=== PATIENT | female | born 1955 | race Two or more races ===

== ENCOUNTER 2020-01-31 13:00 | Outpatient (REF) | payer OTHER, SELFPAY | END 2020-01-31 13:01 | disposition home or self-care (01) | LOC: HO.LAB 13:00 | PROVIDERS: Visit Provider Internal Medicine | DX: Z20.828 Contact with and (suspected) exposure to other viral communicable diseases (principal) | CPT/HCPCS: 36415; 87635 ==

== ENCOUNTER 2021-01-12 11:27 | Outpatient (REF) | payer MEDICAID, SELFPAY | END 2021-01-12 11:28 | disposition home or self-care (01) | LOC: HO.LAB 11:27 | PROVIDERS: Visit Provider Internal Medicine | DX: Z20.822 Contact with and (suspected) exposure to COVID-19 (principal) | CPT/HCPCS: C9803; U0003; U0005 ==

== ENCOUNTER 2022-07-12 18:15 | Emergency (ER) | payer MEDICAID, SELFPAY ==
[2022-07-12 18:31] VITALS: BP 128/78; PULSE 94; O2SAT 99
[2022-07-12 18:34] VITALS: BP 172/95; PULSE 80; RESP 17; TEMP 36.6; O2SAT 96; BMI 25.4
--- NOTE | 2022-07-12 18:53 | ED.GENADULT ---
HPI - General Adult General Chief complaint: Psychiatric Symptoms Stated complaint: Section 12 Time Seen by Provider: 07/12/22 18:53 Source: patient and EMS Mode of arrival: EMS Limitations: no limitations History of Present Illness HPI narrative: Patient is a 66 year old assigned female at with a history of dementia presenting to the emergency department today on a section 12 from her [facility] facility for increased aggression. Patient states that she isn't sure why she is here. Patient denies any dizziness, lightheadedness, abdominal pain, nausea, vomiting, fever, chills, blurry vision, double vision, loss of vision, chest pain, difficulty breathing, shortness of breath, back pain, night sweats, pain with urination, increased urinary frequency, increased urinary urgency, blood in her urine or stool, syncope or a near syncopal episode, recent trauma or falls, bowel incontinence, bladder incontinence, bowel retention, bladder retention, or any other complaints at this time. Relieving factors: none Exacerbating factors: none Associated symptoms: denies other symptoms Treatments prior to arrival: none Related Data Home Medications Medication Instructions Recorded Confirmed clopidogrel 75 mg tablet 1 tab PO DAILY 07/12/22 07/12/22 donepezil 10 mg tablet 1 tab PO BEDTIME 07/12/22 07/12/22 escitalopram oxalate 5 mg tablet 1 tab PO DAILY 07/12/22 07/12/22 gabapentin 800 mg tablet 1 tab PO BEDTIME 07/12/22 07/12/22 insulin aspart U-100 100 unit/mL 0 sliding scale dose subcut TID 07/12/22 07/12/22 (3 mL) subcutaneous pen insulin glargine 100 unit/mL (3 10 unit subcut BID 07/12/22 07/12/22 mL) subcutaneous pen (Lantus Solostar U-100 Insulin) levothyroxine 75 mcg tablet 75 mcg PO QAM 07/12/22 07/12/22 loperamide 2 mg capsule 1 cap PO QID PRN diarrhea 07/12/22 07/12/22 loratadine 10 mg tablet 1 tab PO DAILY 07/12/22 07/12/22 memantine 10 mg tablet 1 tab PO BID 07/12/22 07/12/22 metformin 500 mg tablet,extended 2 tab PO BID 07/12/22 07/12/22 release 24 hr metoprolol succinate 25 mg 1 tab PO DAILY 07/12/22 07/12/22 tablet,extended release 24 hr simvastatin 40 mg tablet 1 tab PO BEDTIME 07/12/22 07/12/22 valsartan 80 mg tablet 1 tab PO DAILY 07/12/22 07/12/22 Allergies Allergy/AdvReac Type Severity Reaction Status Date / Time aspirin [ASPIRIN] Allergy Unknown UNKNOWN Unverified 01/13/20 19:28 Review of Systems Constitutional: Constitutional: Reports no additional constitutional complaints, Denies chills, Denies fever(s) and Denies night sweats Eyes: Eyes: Reports no additional eye complaints, Denies blurry vision, Denies change in vision, Denies diplopia, Denies eye discharge, Denies loss of vision and Denies eye pain ENT: Denies dizziness Cardiovascular: Cardiovascular: Reports no additional cardiovascular complaints, Denies chest pain, Denies lightheadedness, Denies Loss of Consciousness and Denies dyspnea Respiratory: Respiratory: Reports no additional respiratory complaints and Denies dyspnea Gastrointestinal: Gastrointestinal: Reports no additional gastrointestinal complaints, Denies abdominal pain, Denies melena, Denies hematochezia, Denies change in bowel habits and Denies change in stool character Genitourinary: Genitourinary: Denies hematuria, Denies urinary frequency, Denies dysuria, Denies urinary incontinence, Denies urinary hesitancy and Denies urinary urgency Musculoskeletal: Musculoskeletal: Reports no additional musculoskeletal complaints, Denies numbness and Denies tingling Neurologic: Reports confusion (per baseline), Denies dizziness, Denies loss of vision, Denies numbness and Denies tingling Psychiatric: Psychiatric: Reports no additional psychiatric complaints and Reports confusion (per baseline) Endocrine: Endocrine: Reports no additional endocrine complaints Hematologic/Lymphatic: Hematologic/Lymphatic: Reports no additional hematologic/lymphatic complaints Allergic/Immunologic: Allergic/Immunologic: Reports no additional allergic/immunologic complaints [facility] Past Medical History Attestation statement: The following information was validated with the patient. Source: old records reviewed, nursing notes reviewed and other (SNF recored reviewed) Social History Social History Advance Directives: No Advance Directives Information Provided: Yes Physical Exam ED Vital Signs: Vital Signs - 24 hr 07/12/22 18:34 Temperature 98 F Pulse Rate 80 Respiratory Rate 17 Blood Pressure 172/95 H Pulse Oximetry 96 BMI result Body Mass Index 25.4 Const General: confusion (per baseline) Nutritional Appearance: well nourished Orientation/consciousness: confusion (per baseline) Limitations: no limitations HENMT Head: Yes normal to inspection and Yes atraumatic Ears: hearing grossly normal bilaterally and external ears normal General nose exam: Normal external nose present, no nasal discharge noted and no epistaxis Face and sinus: Yes normal facial exam, No abrasion and No laceration Mouth: Normal oral and palatal mucosa present, no drooling and no muffled voice Eyes General: appearance normal, both eyes and all related structures Periorbital: periorbital findings normal Eyelids: Yes eyelids normal Conjunctivae: conjunctivae normal Pupils: Equal, round and reactive pupils present EOM: EOMs intact bilaterally Neck Neck: Yes normal visual inspection, Yes full ROM and Yes no lymphadenopathy Chest Chest palpation & inspection: normal inspection of the chest Resp Effort & Inspection: normal respiratory effort and able to speak in complete sentences Auscultation: clear to auscultation bilaterally Cardio Rate: regular rate Rhythm: regular rhythm GI Inspection: Yes normal to inspection Neuro General: confusion (per baseline) Cranial nerves: Yes Equal, round and reactive pupils present Cognition (Neuro): normal cognition Motor exam (neuro): 5/5 motor strength present throughout Sensory Exam: Normal double simultaneous stimulation for sensation Coordination: [id number] test normal Extrem General: Yes normal to inspection, Yes full ROM and Yes capillary refill normal Psych Appearance: grossly normal Mental Status: mental status grossly normal Affect: normal affect Attitude: cooperative Thought process: Normal thought process present Thought content: Normal thought content present Insight: Good insight present (Psych) Medical Decision Making Medical Decision Making [facility] Narrative: Patient is a 66 year old assigned female at with a history of dementia presenting to the emergency department today on a section 12 for increased aggression towards SNF staff. Patient's physical exam showed a chronically confused individual but was otherwise unremarkable. Patient's blood work is pending at this time. Patient's urine showed no acute process. Patient's drug screen was positive for fentanyl however, the patient is not on any fentanyl or common false positive medications. Will repeat. Patient to be evaluated by CARE team. Differential Diagnosis Differential Diagnoses: The differential diagnosis associated with the presentation includes dementia, agitation Lab Data [facility] Lab Attestation statement: I reviewed the patient's lab results. Labs: Lab Results 07/12/22 07/12/22 07/12/22 Range/Units 19:02 19:02 19:12 POC Glucose (60-115) mg/dL Urine Color Yellow Urine Appearance Clear Urine pH 5.5 (5.0-9.0) Ur Specific [place] 1.015 (1.005-1.025) Urine Protein Negative (Neg-Trace) mg/dL Urine Glucose (UA) Negative (Negative) mg/dL Urine Ketones Negative (Negative) mg/dL Urine Blood Negative (Negative) Urine Nitrite Negative (Negative) Ur Leukocyte Esterase Negative (Negative) Urine Opiates Screen Not Detected (Not Detect) Urine Fentanyl Screen POSITIVE H (Not Detect) Ur Barbiturates Screen Not Detected (Not Detect) Ur Phencyclidine Scrn Not Detected (Not Detect) Ur Amphetamines Screen Not Detected (Not Detect) U Benzodiazepines Scrn Not Detected (Not Detect) Urine Cocaine Screen Not Detected (Not Detect) U Marijuana (THC) Screen Not Detected (Not Detect) COVID-19 (JOSH) Negative (Negative) COVID-19 Clin Com See Note 07/12/22 Range/Units 19:39 POC Glucose 163 H (60-115) mg/dL Urine Color Urine Appearance Urine pH (5.0-9.0) Ur Specific [place] (1.005-1.025) Urine Protein (Neg-Trace) mg/dL Urine Glucose (UA) (Negative) mg/dL Urine Ketones (Negative) mg/dL Urine Blood (Negative) Urine Nitrite (Negative) Ur Leukocyte Esterase (Negative) Urine Opiates Screen (Not Detect) Urine Fentanyl Screen (Not Detect) Ur Barbiturates Screen (Not Detect) Ur Phencyclidine Scrn (Not Detect) Ur Amphetamines Screen (Not Detect) U Benzodiazepines Scrn (Not Detect) Urine Cocaine Screen (Not Detect) U Marijuana (THC) Screen (Not Detect) COVID-19 (JOSH) (Negative) COVID-19 Clin Com Independent Historian Clinical information obtained from an independent historian. History obtained from or confirmed by: EMS and Other (SNF staff) Discharge Plan Discharge Clinical Impression: Aggression, Dementia Patient Disposition: Still a Patient Prescriptions: No Action simvastatin 40 mg tablet 1 tab PO BEDTIME valsartan 80 mg tablet 1 tab PO DAILY clopidogrel 75 mg tablet 1 tab PO DAILY memantine 10 mg tablet 1 tab PO BID metoprolol succinate 25 mg tablet extended release 24 hr 1 tab PO DAILY metformin 500 mg tablet extended release 24 hr 2 tab PO BID loperamide 2 mg capsule 1 cap PO QID PRN (Reason: diarrhea) escitalopram oxalate 5 mg tablet 1 tab PO DAILY levothyroxine 75 mcg tablet 75 mcg PO QAM insulin glargine [Lantus Solostar U-100 Insulin] 100 unit/mL (3 mL) insulin pen 10 unit subcut BID gabapentin 800 mg tablet 1 tab PO BEDTIME donepezil 10 mg tablet 1 tab PO BEDTIME loratadine 10 mg tablet 1 tab PO DAILY insulin aspart U-100 100 unit/mL (3 mL) insulin pen 0 sliding scale dose SUBCUT TID Rx Instructions: sliding scale
[2022-07-12 19:21] LABS: Amphetamine Screen Urine Not Detected (Not Detect); Barbiturates, Urine Not Detected (Not Detect); Benzodiazepines Screen Urine Not Detected (Not Detect); Cannabinoid Screen Urine Not Detected (Not Detect); Cocaine Screen Urine Not Detected (Not Detect); Fentanyl, urine POSITIVE (Not Detect); Opiate Screen Urine Not Detected (Not Detect); Phencyclidine Screen Urine Not Detected (Not Detect)
[2022-07-12 19:22] LABS: Appearance Urine Clear; Color Urine Yellow; Glucose Urine UA Negative (Negative); Leukocyte Esterase Urine Negative (Negative); Nitrite Urine Negative (Negative); PH 5.5 (5.0-9.0); Specific Gravity - Urine 1.015 (1.005-1.025); Urine Blood Negative (Negative); Urine Ketones Negative (Negative); Urine Protein Negative (Neg-Trace)
[2022-07-12 19:43] LABS: Glucose, Whole Blood 163 mg/dL (60-115)
[2022-07-12 19:54] LABS: COVID-19 Test Negative (Negative); IDNOW Serial# BCCEAD1C
[2022-07-12 21:02] LABS: Basophils Absolute Auto 0.1 X10*3/uL (0.0-0.2); Basophils Percent Auto 0.8 % (0-2); Eosinophils Absolute Auto 0.1 X10*3/uL (0.0-0.4); Eosinophils Percent Auto 1.2 % (0-4); Hematocrit 36.1 % (37.0-47.0); Hemoglobin 12.4 g/dl (12.0-16.0); Imm Gran Abs Auto 0.04 X10*3/uL (0.00-0.03); Imm Gran Pct Auto 0.5 % (0.0-0.4); Lymphocytes Absolute Auto 3.3 X10*3/uL (1.2-4.9); MANUAL DIFF FLAG NO; Mean Corpuscular HGB Conc 34.3 g/dl (31.0-35.0); Mean Corpuscular Hemoglobin 32.4 pg (27.0-33.0); Mean Corpuscular Volume 94.3 fL (80.0-98.0); Mean Platelet Volume 8.8 fL (9.4-12.3); Monocytes Absolute Auto 0.5 X10*3/uL (0.1-1.2); Monocytes Percent Auto 6.1 % (2-11); Neutrophils Absolute Auto 4.4 x10*3/uL (2.0-8.3); Neutrophils Percent Auto 52.4 % (45-73); Platelet Count 262 X10*3/uL (160-400); Red Blood Count 3.83 X10*6/uL (4.20-5.50); Red Cell Distribution Width 12.2 % (11.0-16.0); White Blood Count 8.5 X10*3/uL (4.8-10.8)
[2022-07-12] MEDS: metFORMIN HCl ER 500 MG TAB.ER.24H 1000 MG PO (21:34)
[2022-07-12] MEDS: Atorvastatin Calcium 20 MG TABLET PO (21:34)
[2022-07-12] MEDS: Insulin Glargine,Hum.rec.anlog 100 UNIT/ML 10 ML VIAL 10 UNIT SUBCUT (21:34)
[2022-07-12] MEDS: Gabapentin 400 MG CAPSULE 800 MG PO (21:34)
[2022-07-12] MEDS: Memantine HCl 10 MG TABLET PO (21:34)
[2022-07-12] MEDS: Insulin Lispro 100 UNIT/ML 3 ML VIAL SUBCUT (21:34)
[2022-07-12] MEDS: Donepezil HCl 10 MG TABLET PO (21:34)
[2022-07-12 21:52] LABS: Acetaminophen LAB < 17 mcg/mL (<30); Alanine Aminotransferase 21 U/L (0-31); Albumin Level 4.5 g/dL (3.5-5.0); Alkaline Phosphatase 74 U/L (39-117); Anion Gap 17 (12-20); Aspartate Amino Transferase 25 U/L (5-31); Bilirubin Total 0.7 mg/dL (0.0-1.0); Blood Urea Nitrogen 12 mg/dL (9-16); Calcium 9.7 mg/dL (8.4-10.2); Carbon Dioxide 24 mmol/L (22-29); Chloride 94 mmol/L (96-108); Creatinine Clr Calc Pharmacy 52.3; Estimated Glomerular Filt Rate > 60; Ethanol < 10 mg/dL; Glucose Random 208 mg/dL (60-115); Potassium 5.2 mmol/L (3.3-5.1); Salicylate < 5.0 mg/dL (15-30); Sodium 130 mmol/L (135-145); Total Protein 7.8 g/dL (6.5-8.0)
[2022-07-13] MEDS: Loperamide HCl 2 MG CAPSULE PO (00:29)
[2022-07-13 01:30] VITALS: BP 164/83; PULSE 72; RESP 16; TEMP 36.8; O2SAT 97
[2022-07-13] MEDS: OLANZapine 5 MG TABLET PO (02:53)
--- NOTE | 2022-07-13 06:35 | PC.NURSE ---
Patient is currently in bed appears sleeping, patient requested medication for sleep/olanzapine 5 mg administered at 0253 with + effect, patient had bowel incontinence episode due to diarrhea/Imodium 2 mg administered at 0029 with + effect, patient was assessed by care team, pending disposition, patient will be reevaluated in the morning with possibility to discharge back to alf, medication complaint, VSS, POC at 1739 was 163/covered with 2 units in the evening, POC at 0635 was 114, VSS, sammarinese speaking primarily, behavior non concerning, will continue to monitor.
[2022-07-13 06:40] LABS: Glucose, Whole Blood 114 mg/dL (60-115)
[2022-07-13] MEDS: metFORMIN HCl ER 500 MG TAB.ER.24H 1000 MG PO ×2 (08:36→20:37)
[2022-07-13] MEDS: Insulin Glargine,Hum.rec.anlog 100 UNIT/ML 10 ML VIAL 10 UNIT SUBCUT ×2 (08:36→20:37)
[2022-07-13] MEDS: Escitalopram Oxalate 5 MG TABLET PO (08:36)
[2022-07-13] MEDS: Memantine HCl 10 MG TABLET PO ×2 (08:36→20:37)
[2022-07-13] MEDS: Metoprolol Succinate ER 25 MG TAB.ER.24H PO (08:37)
[2022-07-13] MEDS: Loratadine 10 MG TABLET PO (08:37)
[2022-07-13] MEDS: Clopidogrel Bisulfate 75 MG TABLET PO (08:37)
[2022-07-13] MEDS: Levothyroxine Sodium 75 MCG TABLET PO (08:37)
[2022-07-13] MEDS: Valsartan 80 MG TABLET PO (08:38)
[2022-07-13 12:17] LABS: Glucose, Whole Blood 145 mg/dL (60-115)
--- NOTE | 2022-07-13 13:54 | MHC.CARE ---
Pt was seen by CARE team and pt does not meet inpatient level of care currently. [phone], message left to discuss transporting pt back, waiting for return phone call. Consult done with Dr. Felix Farmer and he is in agreement with discharge back to retirement facility. Referred to CM.
[2022-07-13 17:36] LABS: Glucose, Whole Blood 178 mg/dL (60-115)
[2022-07-13] MEDS: Insulin Lispro 100 UNIT/ML 3 ML VIAL SUBCUT ×2 (17:37→20:37)
[2022-07-13 19:16] VITALS: BP 115/67; PULSE 77; RESP 18; TEMP 36.4; O2SAT 95
[2022-07-13 20:25] LABS: Glucose, Whole Blood 159 mg/dL (60-115)
[2022-07-13] MEDS: Gabapentin 400 MG CAPSULE 800 MG PO (20:37)
[2022-07-13] MEDS: Donepezil HCl 10 MG TABLET PO (20:37)
[2022-07-13] MEDS: Atorvastatin Calcium 20 MG TABLET PO (20:37)
[2022-07-14 03:30] VITALS: BP 116/58; PULSE 94; RESP 17; TEMP 36.2; O2SAT 95
--- NOTE | 2022-07-14 05:54 | PC.NURSE ---
Patient slept through the night, no distress observed/reported, care team cleared the patient and referred to case management for placement, behavior non concerning, medication compliant, POC at 2019 was 159 covered with 2 units, VSS, will continue to monitor.
[2022-07-14 06:40] LABS: Glucose, Whole Blood 141 mg/dL (60-115)
[2022-07-14] MEDS: Levothyroxine Sodium 75 MCG TABLET PO (09:12)
[2022-07-14] MEDS: Escitalopram Oxalate 5 MG TABLET PO (09:12)
[2022-07-14] MEDS: Metoprolol Succinate ER 25 MG TAB.ER.24H PO (09:12)
[2022-07-14] MEDS: Valsartan 80 MG TABLET PO (09:12)
[2022-07-14] MEDS: Clopidogrel Bisulfate 75 MG TABLET PO (09:13)
[2022-07-14] MEDS: Insulin Glargine,Hum.rec.anlog 100 UNIT/ML 10 ML VIAL 10 UNIT SUBCUT (09:13)
[2022-07-14] MEDS: metFORMIN HCl ER 500 MG TAB.ER.24H 1000 MG PO (09:13)
[2022-07-14] MEDS: Memantine HCl 10 MG TABLET PO (09:13)
[2022-07-14] MEDS: Loratadine 10 MG TABLET PO (09:14)
[2022-07-14 09:18] VITALS: BP 115/68; PULSE 105; RESP 16; TEMP 36.8; O2SAT 98
--- NOTE | 2022-07-14 10:46 | MHC.CM.PN ---
Addendum entered by Payton Asher RN 07/14/22 11:56: CM RECEIVED CALL FROM PT'S RAVI STINSON WHO WAS W/PT'S DTR AND REPORTED PT DOES HAVE EPISODES OF AGGRESSION ONCE IN A WHILE BUT THEN SHE IS FINE SHORTLY AFTER, FAMILY AGREEABLE TO D/C PLAN BACK TO [facility] TODAY. Original Note: CM RECEIVED CM CONSULT, DISCUSSED VIA [facility] W/CARE TEAM WHO COULD NOT GET A HOLD OF FACILTY HOWEVER REPORTED WHEN CARE TEAM SPOKE TO FACILITY YESTERDAY THEY WERE AGREEABLE TO TAKE PT BACK, CM CENT RETURN REFERRAL AND SPOKE TO STAFF ON PT'S UNIT WHO INITIALLY SAID THEY DID NOT TAKE PT'S ON W/E'S HOWEVER PT IS LTC, NO SUPERVISORS ON OVER W/E AND AGREEABLE TO 3:30 D/C.
--- NOTE | 2022-07-14 10:50 | PC.NURSE ---
Pt to be transported back to facility this afternoon. Pt offering no complaints at this time, vss.
--- NOTE | 2022-07-14 13:56 | MHC.EDTECH ---
Warm blanket provided to pt
[2022-07-14] MEDS: Insulin Lispro 100 UNIT/ML 3 ML VIAL SUBCUT (14:23)
[2022-07-14 14:27] LABS: Glucose, Whole Blood 198 mg/dL (60-115)
== END 2022-07-14 15:44 | disposition home or self-care (01) ==
PROVIDERS: Physician Assistant Medical; Emergency Provider Emergency Medicine
DX: F03.918 Unspecified dementia, unspecified severity, with other behavioral disturbance (principal); E11.9 Type 2 diabetes mellitus without complications; Z20.822 Contact with and (suspected) exposure to COVID-19; Z20.828 Contact with and (suspected) exposure to other viral communicable diseases; Z79.4 Long term (current) use of insulin; Z79.899 Other long term (current) drug therapy
CPT/HCPCS: 36415; 80053; 80143; 80179; 80307; 81003; 82077; 82947; 85025; 87635; 99285; S9485

== ENCOUNTER 2022-11-12 10:35 | Emergency (ER) | payer MEDICAID, SELFPAY ==
[2022-11-12 10:38] VITALS: PULSE 72; RESP 18; TEMP 36.9; O2SAT 96; BMI 28.3
[2022-11-12] MEDS: QUEtiapine Fumarate 25 MG TABLET PO (12:09)
[2022-11-12] MEDS: Gabapentin 300 MG CAPSULE PO (12:09)
[2022-11-12] MEDS: Memantine HCl 10 MG TABLET PO ×2 (12:09→21:43)
[2022-11-12 12:43] LABS: MANUAL DIFF FLAG NO
[2022-11-12 12:47] LABS: Basophils Percent Auto 0.5 % (0-2); Eosinophils Absolute Auto 0.2 X10*3/uL (0.0-0.4); Eosinophils Percent Auto 3.3 % (0-4); Hematocrit 34.4 % (37.0-47.0); Hemoglobin 11.6 g/dl (12.0-16.0); Imm Gran Abs Auto 0.03 X10*3/uL (0.00-0.03); Imm Gran Pct Auto 0.5 % (0.0-0.4); Lymphocytes Absolute Auto 2.5 X10*3/uL (1.2-4.9); Lymphocytes Percent Auto 41.1 % (20-40); Mean Corpuscular HGB Conc 33.7 g/dl (31.0-35.0); Mean Corpuscular Hemoglobin 32.5 pg (27.0-33.0); Mean Corpuscular Volume 96.4 fL (80.0-98.0); Mean Platelet Volume 9.4 fL (9.4-12.3); Monocytes Absolute Auto 0.6 X10*3/uL (0.1-1.2); Monocytes Percent Auto 9.1 % (2-11); Neutrophils Absolute Auto 2.7 x10*3/uL (2.0-8.3); Neutrophils Percent Auto 45.5 % (45-73); Platelet Count 185 X10*3/uL (160-400); Red Blood Count 3.57 X10*6/uL (4.20-5.50); Red Cell Distribution Width 12.3 % (11.0-16.0)
[2022-11-12 13:03] LABS: Anion Gap 10 (12-20); Blood Urea Nitrogen 12 mg/dL (9-16); Calcium 9.2 mg/dL (8.4-10.2); Carbon Dioxide 29 mmol/L (22-29); Chloride 101 mmol/L (96-108); Creatinine Clr Calc Pharmacy 75.1; Estimated Glomerular Filt Rate > 60; Glucose Random 132 mg/dL (60-115); Potassium 4.3 mmol/L (3.3-5.1); Sodium 136 mmol/L (135-145)
[2022-11-12 13:19] LABS: TSH reflex Free T4 0.47 uIU/mL (0.32-4.0)
--- NOTE | 2022-11-12 13:19 | ED.GENADULT ---
HPI - General Adult General Chief complaint: Psychiatric Symptoms Stated complaint: aggressive from SNF Time Seen by Provider: 11/12/22 11:17 Source: patient and EMS Mode of arrival: EMS Limitations: other (Dementia agitation) History of Present Illness HPI narrative: 66-year-old female with history of diabetes, dementia presents from a locked unit for evaluation. Patient was apparently agitated today. She was visit physically intimidating others. She was throwing items around. Apparently she was threatening to scratch in harm of the. She was disrupting the therapeutic milieu of the group home facility. Upon arrival, patient was clearly agitated but directable. She offered no acute complaints at this time. She denies any fevers, chills, cough or mucus production. She denies any chest pain, shortness of breath. She denies any urinary frequency, urgency or dysuria. Denies any back pain. There is no clear relieving or exacerbating features. The symptoms per staff for reported leak quite severe. Related Data Home Medications Medication Instructions Recorded Confirmed clopidogrel 75 mg tablet 1 tab PO DAILY 07/12/22 07/12/22 donepezil 10 mg tablet 1 tab PO BEDTIME 07/12/22 07/12/22 escitalopram oxalate 5 mg tablet 1 tab PO DAILY 07/12/22 07/12/22 gabapentin 800 mg tablet 1 tab PO BEDTIME 07/12/22 07/12/22 insulin aspart U-100 100 unit/mL 0 sliding scale dose subcut TID 07/12/22 07/12/22 (3 mL) subcutaneous pen insulin glargine 100 unit/mL (3 10 unit subcut BID 07/12/22 07/12/22 mL) subcutaneous pen (Lantus Solostar U-100 Insulin) levothyroxine 75 mcg tablet 75 mcg PO QAM 07/12/22 07/12/22 loperamide 2 mg capsule 1 cap PO QID PRN diarrhea 07/12/22 07/12/22 loratadine 10 mg tablet 1 tab PO DAILY 07/12/22 07/12/22 memantine 10 mg tablet 1 tab PO BID 07/12/22 07/12/22 metformin 500 mg tablet,extended 2 tab PO BID 07/12/22 07/12/22 release 24 hr metoprolol succinate 25 mg 1 tab PO DAILY 07/12/22 07/12/22 tablet,extended release 24 hr simvastatin 40 mg tablet 1 tab PO BEDTIME 07/12/22 07/12/22 valsartan 80 mg tablet 1 tab PO DAILY 07/12/22 07/12/22 Allergies Allergy/AdvReac Type Severity Reaction Status Date / Time aspirin [ASPIRIN] Allergy Unknown UNKNOWN Unverified 01/13/20 19:28 Review of Systems Review of Systems: CONSTITUTIONAL: Denies weight loss, fever and chills. HEENT: Denies changes in vision and hearing. RESPIRATORY: Denies SOB and cough. CV: Denies palpitations no CP. GI: Denies abdominal pain, nausea, vomiting and diarrhea. : Denies dysuria and urinary frequency. MSK: Denies myalgia and joint pain. SKIN: Denies rash and pruritus. NEUROLOGICAL: Denies headache and syncope. PSYCHIATRIC: Denies recent changes in mood. Denies anxiety and depression. All other ROS are negative unless in HPI [facility] Social History Social History Alcohol intake: never Smoked in Last 30 Days: No Use of substances other than those prescribed or required for medical reasons: No Advance Directives: Yes Advance Directives on File: Yes Advance Directives Date on File: 11/12/22 Physical Exam ED Vital Signs: Vital Signs - 24 hr 11/12/22 10:38 Temperature 98.4 F Pulse Rate 72 Respiratory Rate 18 Pulse Oximetry 96 Oxygen Delivery Method Room Air BMI result Body Mass Index 28.3 GEN: Well developed, no acute distress, alert, oriented HEENT: Normocephalic, atraumatic, normal external ears, nose appears normal, no oropharyngeal edema or exudates Eyes: Normal to appearance Neck: Supple, no lymphadenopathy Respiratory: Talks in complete sentences, no respiratory distress, clear to auscultation bilaterally Cardiovascular: Regular rate and rhythm, no murmurs rubs or gallops Abdomen: Soft, nontender, nondistended, no guarding, no rebound Back: No CVA tenderness Extremities: No clubbing cyanosis or edema Neurologic: No focal neurologic deficits, cranial nerves 2-12 intact, strength is 5/5 bilaterally Skin: No rash Psych: Mild to moderately agitated speaking loudly Course Course Course Narrative: Patient presents for evaluation of agitation. She is currently calm, cooperative. We are able to obtain blood work from her. We are waiting urinalysis. She is directable and has taken her medications. She is not suicidal homicidal. She is pose no threat to our staff. At this point, will rule out any metabolic issues that could cause encephalopathy or agitation. If she continues to act appropriately, there is no indication for further evaluation and she will be discharged back to the facility. Reevaluation(s) Reevaluation #1: I placed a care team consultation. Time: 13:29 Reevaluation #2: Our case management team has reached out to Psychiatry as facility will not accept the patient back without medication re-evaluation by Psychiatry. Patient will be placed in position observation at this time. There is no evidence UTI obvious other causes of encephalopathy Time: 15:10 Reevaluation #3: Patient's care will be transitioned to the oncoming provider. Disposition still pending. Patient remains in physician observation. Time: 16:00 Medications Administered Discontinued Medications Generic Name Dose Route Start Last Admin Trade Name Freq PRN Reason Stop Dose Admin Gabapentin 300 mg 11/12/22 11:59 11/12/22 12:09 Gabapentin 300 Mg Capsule PO 11/12/22 12:00 300 mg ONCE ONE Administration Memantine 10 mg 11/12/22 11:59 11/12/22 12:09 Memantine Hcl 10 Mg Tablet PO 11/12/22 12:00 10 mg ONCE ONE Administration Quetiapine Fumarate 25 mg 11/12/22 11:23 11/12/22 12:09 Quetiapine Fumarate 25 Mg Tablet PO 11/12/22 11:24 25 mg ONCE ONE Administration Medical Decision Making Medical Decision Making [facility] Narrative: 66-year-old female with history of dementia, diabetes presents with agitated behavior Differential diagnosis includes: Agitation, anxiety, stress reaction, UTI, encephalopathy Plan: Continue patient's usual medications, care team consultation, laboratory analysis and urinalysis. Differential Diagnosis Differential Diagnoses: The differential diagnosis associated with the presentation includes (See above) Admission/Observation Consideration of admission/observation: Escalation of care including admission/observation considered Lab Data [facility] Lab Attestation statement: I reviewed the patient's lab results. 11/12/22 12:41 11/12/22 12:41 Labs: Lab Results 11/12/22 11/12/22 11/12/22 Range/Units 12:41 12:41 14:22 WBC 6.0 (4.8-10.8) X10*3/uL RBC 3.57 L (4.20-5.50) X10*6/uL Hgb 11.6 L (12.0-16.0) g/dl Hct 34.4 L (37.0-47.0) % MCV 96.4 (80.0-98.0) fL MCH 32.5 (27.0-33.0) pg MCHC 33.7 (31.0-35.0) g/dl RDW 12.3 (11.0-16.0) % Plt Count 185 D (160-400) X10*3/uL MPV 9.4 (9.4-12.3) fL Immature Gran % (Auto) 0.5 H (0.0-0.4) % Neut % (Auto) 45.5 (45-73) % Lymph % (Auto) 41.1 H (20-40) % [place] % (Auto) 9.1 (2-11) % Eos % (Auto) 3.3 (0-4) % Baso % (Auto) 0.5 (0-2) % Lymph # (Auto) 2.5 (1.2-4.9) X10*3/uL [place] # (Auto) 0.6 (0.1-1.2) X10*3/uL Eos # (Auto) 0.2 (0.0-0.4) X10*3/uL Baso # (Auto) 0.0 (0.0-0.2) X10*3/uL Abs Immat Gran (auto) 0.03 (0.00-0.03) X10*3/uL Absolute Neuts (auto) 2.7 (2.0-8.3) x10*3/uL Absolute Nucleated RBC 0.000 (0.0-0.012) X10*3/uL Nucleated RBC % (auto) 0.0 (0.0-0.2) /100WBC Sodium 136 (135-145) mmol/L Potassium 4.3 (3.3-5.1) mmol/L Chloride 101 (96-108) mmol/L Carbon Dioxide 29 (22-29) mmol/L Anion Gap 10 L (12-20) BUN 12 (9-16) mg/dL Creatinine 0.73 (0.5-1.4) mg/dL Estim Creat Clear Calc 75.1 Estimated GFR > 60 Random Glucose 132 H (60-115) mg/dL Calcium 9.2 (8.4-10.2) mg/dL TSH 0.47 (0.32-4.0) uIU/mL Urine Color Yellow Urine Appearance Clear Urine pH 8.0 (5.0-9.0) Ur Specific [place] <= 1.005 (1.005-1.025) Urine Protein Negative (Neg-Trace) mg/dL Urine Glucose (UA) Negative (Negative) mg/dL Urine Ketones Negative (Negative) mg/dL Urine Blood Negative (Negative) Urine Nitrite Negative (Negative) Ur Leukocyte Esterase Small (1+) H (Negative) Urine RBC 0-2 (0-2) /HPF Urine WBC 0-5 (0-5) /HPF Ur Squamous Epith Cells 0-2 (0-2) /HPF Urine Bacteria None Seen (None Seen) Hyaline Casts 0-2 (0-2) /LPF Independent Historian Clinical information obtained from an independent historian. History obtained from or confirmed by: Other (Daughter) External Record Review External record reviewed: Outpatient record (Nursing facility paperwork) Prescription Management I considered prescription management with: Antibiotic Chronic Conditions Patient?s care impacted by: Diabetes Discharge Plan Discharge Clinical Impression: Dementia, Agitation Patient Disposition: Still a Patient Prescriptions: No Action simvastatin 40 mg tablet 1 tab PO BEDTIME valsartan 80 mg tablet 1 tab PO DAILY clopidogrel 75 mg tablet 1 tab PO DAILY memantine 10 mg tablet 1 tab PO BID metoprolol succinate 25 mg tablet extended release 24 hr 1 tab PO DAILY metformin 500 mg tablet extended release 24 hr 2 tab PO BID loperamide 2 mg capsule 1 cap PO QID PRN (Reason: diarrhea) escitalopram oxalate 5 mg tablet 1 tab PO DAILY levothyroxine 75 mcg tablet 75 mcg PO QAM insulin glargine [Lantus Solostar U-100 Insulin] 100 unit/mL (3 mL) insulin pen 10 unit subcut BID gabapentin 800 mg tablet 1 tab PO BEDTIME donepezil 10 mg tablet 1 tab PO BEDTIME loratadine 10 mg tablet 1 tab PO DAILY insulin aspart U-100 100 unit/mL (3 mL) insulin pen 0 sliding scale dose SUBCUT TID Rx Instructions: sliding scale Interventions: [place]-Suicide Risk Severity Scale Last Done: 11/12/22 13:50
[2022-11-12 14:35] LABS: Appearance Urine Clear; Color Urine Yellow; Glucose Urine UA Negative (Negative); Leukocyte Esterase Urine Small (1+) (Negative); Nitrite Urine Negative (Negative); Specific Gravity - Urine <= 1.005 (1.005-1.025); UMIC TRIGGER UACC YES; Urine Blood Negative (Negative); Urine Ketones Negative (Negative); Urine Protein Negative (Neg-Trace)
[2022-11-12 14:44] LABS: Bacteria Urine None Seen (None Seen); Hyaline Casts Urine 0-2 /LPF (0-2); RBC Urine 0-2 /HPF (0-2); Squamous Epithelial Cell Urine 0-2 /HPF (0-2); UACC Culture Trigger YES; WBC Urine 0-5 /HPF (0-5)
--- NOTE | 2022-11-12 14:54 | MHC.CM.ED ---
Received case management consult from Dr Solitario. Patient is a LT resident of [facility]. Patient came to the ER under Section 12 due to aggressive behavior. Patient has a history. Patient took all of her medications while in the ER. Dr Solitario feels patient can safely return back to [facility]. Referral made to [facility] via [facility]. Received telephone call from server security administrator, Kamran. Kamran is concerned because patient can be triggered by any little thing, including not being able to find a spoon. T/W verified patient is a LTC [facility] bed hold patient and that facility has the ability to address these issues with a psychiatrist. Kamran feels they have been trying to have the psychiatrist work with patient but they have constraints due to being a LTC facility. Kamran requesting medication assessment be completed by psych. T/W agreed to get Psych consult ordered for medication assessment but explained it is anticipated patient will return to facility tomorrow. Kamran agreeable to this plan. Psych consult ordered by Dr Solitario. Continue to monitor for d/c needs.
--- NOTE | 2022-11-12 16:56 | PHA.MEDREC ---
Pharmacy Consult ? Medication Reconciliation Pharmacy has completed the medication reconciliation.LIST FROM FACILITY [facility]
--- NOTE | 2022-11-12 19:15 | MHC.EDTECH ---
Bed alarm has been turn on.
--- NOTE | 2022-11-12 19:17 | MHC.EDTECH ---
Daughter Number Meghana # [phone]
[2022-11-12 20:00] VITALS: BP 130/61; PULSE 72; RESP 16; TEMP 36.4; O2SAT 93
[2022-11-12] MEDS: Gabapentin 400 MG CAPSULE 1200 MG PO (20:17)
[2022-11-12] MEDS: Donepezil HCl 10 MG TABLET PO (20:18)
[2022-11-12] MEDS: Atorvastatin Calcium 20 MG TABLET PO (20:18)
[2022-11-12] MEDS: Insulin Glargine,Hum.rec.anlog 100 UNIT/ML 10 ML VIAL 32 UNIT SUBCUT (20:20)
[2022-11-12] MEDS: traZODone HCL 25 MG HALFTAB 75 MG PO (21:43)
[2022-11-12] MEDS: Valsartan 80 MG TABLET PO (21:43)
[2022-11-12 21:53] LABS: Glucose, Whole Blood 302 mg/dL (60-115)
[2022-11-12] MEDS: Insulin Lispro 100 UNIT/ML 3 ML VIAL SUBCUT (22:10)
--- NOTE | 2022-11-12 22:33 | PC.NURSE ---
patient received in agitated and combative patient was able to given patient has a 1:1patient vitals are stable at this time patient was given insulin coverage patient urine was collected patient will continue to be monitored for safety.
--- NOTE | 2022-11-13 | ECG_ITS ---
Test Reason : qtc prolongation Blood Pressure : / mmHG Vent. Rate : 057 BPM Atrial Rate : 057 BPM P-R Int : 182 ms QRS Dur : 090 ms QT Int : 452 ms P-R-T Axes : 000 151 139 degrees QTc Int : 439 ms Suspect limb lead reversal, interpretation assumes no reversal Sinus bradycardia Lateral infarct , age undetermined Abnormal ECG No previous ECGs available Referred By: Tanya Perez Electronically Signed By:Gerber Burks
--- NOTE | 2022-11-13 00:30 | PC.NURSE ---
patient in bed with eyes closed patient has a 1:1 patient can be combative and very agitated patient received all medications with no issues patient will continue to be monitored for safety.
--- NOTE | 2022-11-13 00:42 | PC.NURSE ---
patient did not receive the IM medication due to the patent had become calm and cooperative to take her meds by mouth patient will continue to be monitored for safety
--- NOTE | 2022-11-13 05:02 | PC.NURSE ---
patient was up and down the unit with a 1:1 sitter due to patient is unpredictable and can be combative patient was encouraged to try to get some sleep patient will continue to be monitored for safety
[2022-11-13 05:39] VITALS: BP 98/60; PULSE 74; RESP 16; TEMP 35.9; O2SAT 97
[2022-11-13] MEDS: Levothyroxine Sodium 75 MCG TABLET PO (05:47)
[2022-11-13 07:42] LABS: Glucose, Whole Blood 278 mg/dL (60-115)
[2022-11-13] MEDS: Acetaminophen 325 MG TABLET 650 MG PO ×2 (09:51→21:45)
[2022-11-13] MEDS: Gabapentin 300 MG CAPSULE PO ×2 (09:54→14:14)
[2022-11-13] MEDS: Metoprolol Tartrate 25 MG TABLET PO (09:55)
[2022-11-13] MEDS: Loratadine 10 MG TABLET PO (09:55)
[2022-11-13] MEDS: Escitalopram Oxalate 10 MG TABLET PO (09:55)
[2022-11-13] MEDS: Insulin Lispro 100 UNIT/ML 3 ML VIAL SUBCUT ×4 (09:56→21:45)
[2022-11-13 10:00] VITALS: BP 162/75; PULSE 71; RESP 17; O2SAT 93
[2022-11-13] MEDS: Clopidogrel Bisulfate 75 MG TABLET PO (10:18)
[2022-11-13] MEDS: Memantine HCl 10 MG TABLET PO ×2 (10:18→21:44)
[2022-11-13 11:54] LABS: Glucose, Whole Blood 284 mg/dL (60-115)
[2022-11-13 12:00] VITALS: BP 122/84; PULSE 61; RESP 17; TEMP 36.2; O2SAT 96
[2022-11-13 14:00] VITALS: BP 125/82; PULSE 65; RESP 17; TEMP 36.4; O2SAT 96
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
[2022-11-13] MEDS: traZODone HCL 25 MG HALFTAB PO (14:15)
[2022-11-13 16:28] LABS: Glucose, Whole Blood 173 mg/dL (60-115)
[2022-11-13] MEDS: Lidocaine 4 % Patch ADH..PATCH 1 PATCH TRANSDERMA (16:55)
[2022-11-13] MEDS: QUEtiapine Fumarate 25 MG TABLET PO ×2 (18:28→21:45)
[2022-11-13 20:22] VITALS: BP 119/64; PULSE 64; RESP 16; TEMP 36.6; O2SAT 97
[2022-11-13 20:28] LABS: Glucose, Whole Blood 290 mg/dL (60-115)
--- NOTE | 2022-11-13 20:44 | PC.NURSE ---
Assumed care at 07:00. Patient was initially A&O x3, not aware of location, fully compliant and pleasant with care. Then about 1800, she seemed to sun-down, with delusional behavior, yelling, agitated, uncooperative, redirectable, PRN seroquel with effect, had to calm patient with therapeutic communication, patient endorsed reason she was angry was that the 1:1 was not serving her readily enough. She was under the impression that the 1:1 sitter is supposed to be waiting on her. Patient educated with minimal effect. Otherwise ambulatory, and at that time was confused to situation but oriented to person, place, and time fully. This morning reported 10/10 generalized pain, later specifying that mostly her posterior neck hurts, tylenol with good effect, later denying pain, then reporting neck pain mild and lidocaine patch with effect,
[2022-11-13] MEDS: Donepezil HCl 10 MG TABLET PO (21:44)
[2022-11-13] MEDS: Valsartan 80 MG TABLET PO (21:44)
[2022-11-13] MEDS: Gabapentin 400 MG CAPSULE 1200 MG PO (21:44)
[2022-11-13] MEDS: Atorvastatin Calcium 20 MG TABLET PO (21:44)
[2022-11-13] MEDS: Insulin Glargine,Hum.rec.anlog 100 UNIT/ML 10 ML VIAL 32 UNIT SUBCUT (22:13)
--- NOTE | 2022-11-13 22:14 | PC.NURSE ---
patient received in bed with eyes closed patient vitals are stable patient is currently on a 1:1 status patient received all medications with no issues patient will continue to be monitored for safety
--- NOTE | 2022-11-14 04:11 | PC.NURSE ---
Assumed care at 2300.Pt in bed with 1:1 watch. Remains calm and cooperative.
[2022-11-14] MEDS: Levothyroxine Sodium 75 MCG TABLET PO (06:55)
[2022-11-14 07:25] VITALS: BP 114/62; PULSE 75; RESP 14; O2SAT 93
[2022-11-14 07:26] LABS: Glucose, Whole Blood 265 mg/dL (60-115)
[2022-11-14] MEDS: Insulin Lispro 100 UNIT/ML 3 ML VIAL SUBCUT ×4 (09:24→22:25)
[2022-11-14] MEDS: Lidocaine 4 % Patch ADH..PATCH 1 PATCH TRANSDERMA (09:53)
[2022-11-14] MEDS: Loratadine 10 MG TABLET PO (09:54)
[2022-11-14] MEDS: Memantine HCl 10 MG TABLET PO ×2 (09:54→21:54)
[2022-11-14] MEDS: Metoprolol Tartrate 25 MG TABLET PO (09:54)
[2022-11-14] MEDS: Clopidogrel Bisulfate 75 MG TABLET PO (09:54)
[2022-11-14] MEDS: Gabapentin 300 MG CAPSULE PO ×2 (09:54→16:25)
[2022-11-14] MEDS: Escitalopram Oxalate 10 MG TABLET PO (09:54)
[2022-11-14] MEDS: QUEtiapine Fumarate 25 MG TABLET PO ×2 (09:55→21:53)
--- NOTE | 2022-11-14 10:38 | MHC.CM.ED ---
Addendum entered by Korina De Santiago 11/14/22 14:24: Received voicemail from Jordan of [facility] stating they would not be able to accept patient back because she has received IM Zyprexa and has a sitter. They would be happy to assist finding inpatient psych placement for patient. Attempted to reach Jordan via telephone at [phone]. Left voicemail explaining IM Zyprexa was ordered but not given. Also that sitter was d/c'd this morning and am aware patient would need to be sitter free for 24 hours before returning. Also explained Tanya gray mixing operator did not feel inpatient psych was appropriate. Original Note: Patient remains in ER overflow. Clinical updates sent to [facility] via [facility]. Facility can't accept patient until she has been sitter free for 24 hours. Shakila COE aware. Sitter has been d/c'd. Continue to monitor for d/c needs.
--- NOTE | 2022-11-14 11:53 | PC.NURSE ---
Pt.'s blood sugar = 377. 10 units insulin administered per protocol and MD notified. Awaiting new orders at this time per MD.
[2022-11-14 12:01] LABS: Glucose, Whole Blood 377 mg/dL (60-115)
--- NOTE | 2022-11-14 12:07 | PC.NURSE ---
No new orders for pt. per EVETTE Nazario - continue to monitor pt.
--- NOTE | 2022-11-14 12:34 | P.CNPS_ITS ---
History of Present Illness Date of Service: 11/14/2022 Chief Complaint: aggressive from SNF Requesting physician: Cinthia Natarajan Discussed with referring provider: Yes Sources of Information: patient interviewed, chart reviewed and crisis/core team assessment reviewed Additional Sources of Information: Daughter by bedside HPI Narrative: Interim Hx: Pt seen. Pt reports doing well, sleeping well, although she does report sometimes she does have difficulty staying asleep. Pt denies SI/HI. Pt reports concern about staff at facility taking her stuff. She also complaints that it is hard for her to communicate with others there in [place]i. Daughter, who was present during visit, reports she is concern pt is only allowed to take shower once a week and that she has talked with staff at facility but she has been told they have no staff. Per nursing, pt slept through the night. Pt has not shown any combative behaviors and is fully oriented to place, situation, month. Pt asks if she will be discharged soon. Will dc sitter, no need for one as pt has not shown any unsafe behaviors. Past Psychiatric History: Inpatient: none OP: Supportive Care, [facility] Gue[facility]a [employer] [phone]. Past medication trials: trazodone, including doses during the day, seroquel, lexapro, gabapentin. Review of Systems Review of Systems CONSTITUTIONAL: Denies weight loss, fever and chills. HEENT: Denies changes in vision and hearing. RESPIRATORY: Denies SOB and cough. CV: Denies palpitations no CP. GI: Denies abdominal pain, nausea, vomiting and diarrhea. : Denies dysuria and urinary frequency. MSK: Denies myalgia and joint pain. SKIN: Denies rash and pruritus. NEUROLOGICAL: Denies headache and syncope. PSYCHIATRIC: Denies recent changes in mood. Denies anxiety and depression. All other ROS are negative unless in HPI Diagnostics Vital Signs (24Hr): Vital Signs - 24 hr 11/13/22 14:00 11/13/22 20:22 11/14/22 07:25 Temperature 97.6 F 97.8 F Pulse Rate 65 64 75 Respiratory Rate 17 16 14 Blood Pressure 125/82 119/64 114/62 Pulse Oximetry 96 97 93 Oxygen Delivery Method Room Air Room Air BMI result Body Mass Index 28.3 Labs 11/12/22 12:41 11/12/22 12:41 Labs: Laboratory Results - last 48 hr 11/12/22 11/12/22 11/12/22 12:41 12:41 14:22 WBC 6.0 RBC 3.57 L Hgb 11.6 L Hct 34.4 L MCV 96.4 MCH 32.5 MCHC 33.7 RDW 12.3 Plt Count 185 D MPV 9.4 Immature Gran % (Auto) 0.5 H Neut % (Auto) 45.5 Lymph % (Auto) 41.1 H Green % (Auto) 9.1 Eos % (Auto) 3.3 Baso % (Auto) 0.5 Lymph # (Auto) 2.5 Green # (Auto) 0.6 Eos # (Auto) 0.2 Baso # (Auto) 0.0 Abs Immat Gran (auto) 0.03 Absolute Neuts (auto) 2.7 Absolute Nucleated RBC 0.000 Nucleated RBC % (auto) 0.0 Sodium 136 Potassium 4.3 Chloride 101 Carbon Dioxide 29 Anion Gap 10 L BUN 12 Creatinine 0.73 Estim Creat Clear Calc 75.1 Estimated GFR > 60 POC Glucose Random Glucose 132 H Calcium 9.2 TSH 0.47 Urine Color Yellow Urine Appearance Clear Urine pH 8.0 Ur Specific [place] <= 1.005 Urine Protein Negative Urine Glucose (UA) Negative Urine Ketones Negative Urine Blood Negative Urine Nitrite Negative Ur Leukocyte Esterase Small (1+) H Urine RBC 0-2 Urine WBC 0-5 Ur Squamous Epith Cells 0-2 Urine Bacteria None Seen Hyaline Casts 0-2 11/12/22 11/13/22 11/13/22 21:50 07:38 11:50 WBC RBC Hgb Hct MCV MCH MCHC RDW Plt Count MPV Immature Gran % (Auto) Neut % (Auto) Lymph % (Auto) Green % (Auto) Eos % (Auto) Baso % (Auto) Lymph # (Auto) Green # (Auto) Eos # (Auto) Baso # (Auto) Abs Immat Gran (auto) Absolute Neuts (auto) Absolute Nucleated RBC Nucleated RBC % (auto) Sodium Potassium Chloride Carbon Dioxide Anion Gap BUN Creatinine Estim Creat Clear Calc Estimated GFR POC Glucose 302 H 278 H 284 H Random Glucose Calcium TSH Urine Color Urine Appearance Urine pH Ur Specific [place] Urine Protein Urine Glucose (UA) Urine Ketones Urine Blood Urine Nitrite Ur Leukocyte Esterase Urine RBC Urine WBC Ur Squamous Epith Cells Urine Bacteria Hyaline Casts 11/13/22 11/13/22 11/14/22 16:23 20:25 07:10 WBC RBC Hgb Hct MCV MCH MCHC RDW Plt Count MPV Immature Gran % (Auto) Neut % (Auto) Lymph % (Auto) Green % (Auto) Eos % (Auto) Baso % (Auto) Lymph # (Auto) Green # (Auto) Eos # (Auto) Baso # (Auto) Abs Immat Gran (auto) Absolute Neuts (auto) Absolute Nucleated RBC Nucleated RBC % (auto) Sodium Potassium Chloride Carbon Dioxide Anion Gap BUN Creatinine Estim Creat Clear Calc Estimated GFR POC Glucose 173 H 290 H 265 H Random Glucose Calcium TSH Urine Color Urine Appearance Urine pH Ur Specific [place] Urine Protein Urine Glucose (UA) Urine Ketones Urine Blood Urine Nitrite Ur Leukocyte Esterase Urine RBC Urine WBC Ur Squamous Epith Cells Urine Bacteria Hyaline Casts 11/14/22 11:51 WBC RBC Hgb Hct MCV MCH MCHC RDW Plt Count MPV Immature Gran % (Auto) Neut % (Auto) Lymph % (Auto) Green % (Auto) Eos % (Auto) Baso % (Auto) Lymph # (Auto) Green # (Auto) Eos # (Auto) Baso # (Auto) Abs Immat Gran (auto) Absolute Neuts (auto) Absolute Nucleated RBC Nucleated RBC % (auto) Sodium Potassium Chloride Carbon Dioxide Anion Gap BUN Creatinine Estim Creat Clear Calc Estimated GFR POC Glucose 377 H* Random Glucose Calcium TSH Urine Color Urine Appearance Urine pH Ur Specific [place] Urine Protein Urine Glucose (UA) Urine Ketones Urine Blood Urine Nitrite Ur Leukocyte Esterase Urine RBC Urine WBC Ur Squamous Epith Cells Urine Bacteria Hyaline Casts Mental Status Exam Mental Status Exam Narrative: Appearance: wearing hospital gown, fair hygiene, in NAD Behavior: cooperative Psychomotor: no agitation noted Speech: clear, normal rate/rhythm/volume, spontaneous TP: linear TC: some paranoid delusions of others stealing from her Mood: okay Affect: congruent SI: denies HI: denies VH/AH: none Delusions:confabulation about others stealing. Insight/judgment: poor x 2. Memory/cog: pt alert, oriented to place, situation, month, date and year. MOCA not completed. Medications Medications Current Medications Acetaminophen (Acetaminophen 325 Mg Tablet) 650 mg PO Q6H PRN PRN Reason: pain/fever Last Admin: 11/13/22 21:45 Dose: 650 mg Atorvastatin Calcium (Atorvastatin Calcium 20 Mg Tablet) 20 mg PO BEDTIME [facility] Last Admin: 11/13/22 21:44 Dose: 20 mg Bisacodyl (Bisacodyl 10 Mg Supp.Rect) 10 mg [place] DAILY PRN PRN Reason: Constipation Capsaicin (Capsaicin 0.025% Cream 60 Gm Tube) 1 appl TOPICAL TID PRN; Protocol PRN Reason: shoulder pain Clopidogrel Bisulfate (Clopidogrel Bisulfate 75 Mg Tablet) 75 mg PO DAILY [facility] Last Admin: 11/14/22 09:54 Dose: 75 mg Donepezil HCl (Donepezil Hcl 10 Mg Tablet) 10 mg PO BEDTIME [facility] Last Admin: 11/13/22 21:44 Dose: 10 mg Escitalopram Oxalate (Escitalopram Oxalate 10 Mg Tablet) 10 mg PO DAILY [facility] Last Admin: 11/14/22 09:54 Dose: 10 mg Gabapentin (Gabapentin 400 Mg Capsule) 1,200 mg PO BEDTIME [facility] Last Admin: 11/13/22 21:44 Dose: 1,200 mg Gabapentin (Gabapentin 300 Mg Capsule) 300 mg PO BID@0900,1500 [facility] Last Admin: 11/14/22 09:54 Dose: 300 mg Glucagon (Glucagon,Human Recombinant 1 Mg/Ml Vial) 1 mg SUBCUT Q20M PRN PRN Reason: BG <70 AND UNRESPONSIVE Glucose (Glucose Gel 15 Gm Gel..Gram.) 15 gm PO Q15M PRN PRN Reason: BG <70 AND RESPONSIVE Insulin Glargine (Insulin Glargine,Hum.Rec.Anlog 100 Unit/Ml 10 Ml Vial) 32 unit SUBCUT BEDTIME [facility] Last Admin: 11/13/22 22:13 Dose: 32 unit Insulin Human Lispro (Insulin Lispro 100 Unit/Ml 3 Ml Vial) 0 unit SUBCUT QIDACHS [facility]; Protocol Last Admin: 11/14/22 12:03 Dose: 10 unit Levothyroxine Sodium (Levothyroxine Sodium 75 Mcg Tablet) 75 mcg PO DAILY@0630 [facility] Last Admin: 11/14/22 06:55 Dose: 75 mcg Lidocaine (Lidocaine 4 % Patch Adh..Patch) 1 patch TRANSDERMA DAILY [facility]; Protocol Last Admin: 11/14/22 09:53 Dose: 1 patch Loperamide HCl (Loperamide Hcl 2 Mg Capsule) 2 mg PO Q6H PRN PRN Reason: diarrhea Loratadine (Loratadine 10 Mg Tablet) 10 mg PO DAILY [facility] Last Admin: 11/14/22 09:54 Dose: 10 mg Magnesium Hydroxide (Milk Of Magnesia 30 Ml Oral.Susp) 30 ml PO DAILY PRN PRN Reason: Constipation Memantine (Memantine Hcl 10 Mg Tablet) 10 mg PO BID [facility] Last Admin: 11/14/22 09:54 Dose: 10 mg Metoprolol Tartrate (Metoprolol Tartrate 25 Mg Tablet) 25 mg PO DAILY [facility]; Protocol Last Admin: 11/14/22 09:54 Dose: 25 mg Pharmacy Consult (Consult Rx Perform Med Rec) 1 each MISCELLANE ONCE PRN PRN Reason: Consult order Quetiapine Fumarate (Quetiapine Fumarate 25 Mg Tablet) 25 mg PO BID [facility] Last Admin: 11/14/22 09:55 Dose: 25 mg Quetiapine Fumarate (Quetiapine Fumarate 25 Mg Tablet) 25 mg PO Q6H PRN PRN Reason: agitation Last Admin: 11/13/22 18:28 Dose: 25 mg Sodium Biphosphate/Sodium Phosphate (Sodium Phosphate,Green-Dibasic 133 Ml Enema) 118 ml [place] DAILY PRN PRN Reason: Constipation Valsartan (Valsartan 80 Mg Tablet) 80 mg PO BEDTIME [facility]; Protocol Last Admin: 11/13/22 21:44 Dose: 80 mg Allergies Allergies Allergy/AdvReac Type Severity Reaction Status Date / Time aspirin [ASPIRIN] Allergy Unknown UNKNOWN Verified 11/12/22 21:42 Assessment & Plan Assessment & Plan (1) Major neurocognitive disorder: Status: Acute Code(s): F03.90 - Unspecified dementia, unspecified severity, without behavioral disturbance, psychotic disturbance, mood disturbance, and anxiety Plan Mrs. Landis is a 66 year-old woman with hx of Dementia who was brought via EMS on sect 12 due to increase paranoia thinking staff stealing from her and more combative. In the ED, pt over night was observed to be agitated, this morning she presents as more clear, oriented to place and situation. She continues to report that staff at SNF are stealing from her and that she will hurt others if she feels she is not being treated correctly. This ad copy writer spoke with pt's daughter to give update and obtain collateral information. This ad copy writer also spoke with LULU Ortega from [facility] who reports pt more agitated and combative in past few week but irritability has been going on for the past 2 months. PLAN 11/13->Will d/c trazodone during the day, start seroquel BID 25mg po BID- monitor for excessive sedation. continue gabapentin, aricept, and namenda. 11/14-> d/c sitter. continue current medications. Pt stable with no signs of combative behaviors. Total time managing care of this patient today ____ minutes.
[2022-11-14 14:13] VITALS: BP 94/53; PULSE 68; RESP 16; O2SAT 94
[2022-11-14 16:01] VITALS: BP 121/58; PULSE 60; RESP 14; O2SAT 98
[2022-11-14 16:21] LABS: Glucose, Whole Blood 162 mg/dL (60-115)
[2022-11-14 20:23] LABS: Glucose, Whole Blood 259 mg/dL (60-115)
[2022-11-14 20:45] VITALS: BP 155/46; PULSE 70; RESP 17; TEMP 37.2; O2SAT 94
[2022-11-14] MEDS: Donepezil HCl 10 MG TABLET PO (21:52)
[2022-11-14] MEDS: Gabapentin 400 MG CAPSULE 1200 MG PO (21:52)
[2022-11-14] MEDS: Valsartan 80 MG TABLET PO (21:53)
[2022-11-14] MEDS: Insulin Glargine,Hum.rec.anlog 100 UNIT/ML 10 ML VIAL 32 UNIT SUBCUT (21:53)
[2022-11-14] MEDS: Atorvastatin Calcium 20 MG TABLET PO (21:53)
--- NOTE | 2022-11-15 04:39 | PC.NURSE ---
patient pleasant, compliant and cooperative with care. ambulated to bathroom x3 . VSS. patient resting comfortably in bed with even respirations. no overnight issues.
[2022-11-15 04:43] VITALS: BP 133/75; PULSE 63; RESP 17; TEMP 36.2; O2SAT 98
[2022-11-15] MEDS: Levothyroxine Sodium 75 MCG TABLET PO (05:09)
[2022-11-15] MEDS: Acetaminophen 325 MG TABLET 650 MG PO (05:09)
[2022-11-15 07:24] LABS: Glucose, Whole Blood 161 mg/dL (60-115)
[2022-11-15] MEDS: Lidocaine 4 % Patch ADH..PATCH 1 PATCH TRANSDERMA (08:45)
[2022-11-15] MEDS: Metoprolol Tartrate 25 MG TABLET PO (08:46)
[2022-11-15] MEDS: QUEtiapine Fumarate 25 MG TABLET PO (08:46)
[2022-11-15] MEDS: Escitalopram Oxalate 10 MG TABLET PO (08:46)
[2022-11-15] MEDS: Memantine HCl 10 MG TABLET PO (08:46)
[2022-11-15] MEDS: Gabapentin 300 MG CAPSULE PO (08:46)
[2022-11-15] MEDS: Insulin Lispro 100 UNIT/ML 3 ML VIAL SUBCUT ×2 (08:46→13:46)
[2022-11-15] MEDS: Clopidogrel Bisulfate 75 MG TABLET PO (08:46)
[2022-11-15] MEDS: Loratadine 10 MG TABLET PO (08:46)
[2022-11-15 09:00] VITALS: BP 142/63; PULSE 74; RESP 18; TEMP 36.2; O2SAT 96
--- NOTE | 2022-11-15 09:06 | MHC.EDTECH ---
Assisted patient to the bathroom
--- NOTE | 2022-11-15 09:59 | MHC.EDTECH ---
Assisted pt to and from bathroom.x2. Assisted pt to shower. Bed changed.
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
[2022-11-15 11:41] LABS: Glucose, Whole Blood 296 mg/dL (60-115)
--- NOTE | 2022-11-15 12:10 | MHC.CM.ED ---
Patient remains in ER overflow. Patient has not received any IM medications since being here. No sitter for 24 hours. [facility]. Lang KEANE booked for 130pm. Patient, daughter Abby Kowalski RN and Jadon cote.
--- NOTE | 2022-11-15 13:50 | PC.NURSE ---
Daughter and patient given discharge instructions, patient wants to eat lunch prior to discharge
[2022-11-15 13:54] VITALS: BP 127/65; PULSE 71; RESP 14; TEMP 36.2; O2SAT 95
== END 2022-11-15 14:36 | disposition skilled nursing facility (03) ==
PROVIDERS: Emergency Provider Emergency Medicine; PCP Internal Medicine
DX: F03.911 Unspecified dementia, unspecified severity, with agitation (principal); R94.31 Abnormal electrocardiogram [ECG] [EKG]; R00.1 Bradycardia, unspecified; Z79.899 Other long term (current) drug therapy
CPT/HCPCS: 36415; 80048; 81001; 82947; 84443; 85025; 87086; 93005; 96372; 99285

== ENCOUNTER → 2022-11-12 11:01 | Outpatient (BNV) | payer MEDICAID, SELFPAY | PROVIDERS: Emergency Provider Emergency Medicine; PCP Internal Medicine; Visit Provider Social Worker | DX: F03.90 Unspecified dementia, unspecified severity, without behavioral disturbance, psychotic disturbance, mood disturbance, and anxiety (principal) | CPT/HCPCS: 99231; 99285 ==

== ENCOUNTER → 2022-11-13 15:05 | Outpatient (BNV) | payer MEDICAID, SELFPAY | PROVIDERS: Emergency Provider Emergency Medicine; PCP Internal Medicine; Visit Provider Internal Medicine Cardiovascular Disease | DX: R00.1 Bradycardia, unspecified (principal) | CPT/HCPCS: 93010 ==

== ENCOUNTER 2023-01-01 09:24 | Emergency (ER) | payer MEDICAID, SELFPAY ==
--- NOTE | ~2023-01-01 | CT_ITS ---
EXAMINATION: CT HEAD WITHOUT CONTRAST CLINICAL INFORMATION: Agitation. COMPARISON: Head CT from 06/18/2018. TECHNIQUE: Contiguous axial imaging was performed from the skull base to vertex without intravenous administration of contrast. This CT examination was performed using dose optimization techniques as appropriate, variously including the following: *Automated exposure control *Adjustment of mA and/or kV according to patient size (this includes techniques or standardized protocols for targeted exams where dose is matched to indication/reason for exam; i.e. extremities or head) *Use of iterative reconstruction technique DLP: 538 mGy-cm FINDINGS: No intracranial hemorrhage, extra-axial surface collection, focal mass effect or midline shift. 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 There is atherosclerotic calcification of cavernous carotid arteries and intradural segments of vertebral arteries. 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 The cerebellum and brainstem are unremarkable. The cerebellar tonsils are in normal position. The calvarium is intact. The visualized paranasal sinuses and mastoid air cells are well aerated. The visualized portions of the orbits, globes and temporomandibular joints are unremarkable. CT/CT head/brain wo IV con IMPRESSION: * Chronic small vessel ischemic changes within supratentorial white matter. 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 * No intracranial mass or hemorrhage. No acute intracranial pathology.
[2023-01-01 09:35] VITALS: BP 153/54; PULSE 97; RESP 22; O2SAT 98
[2023-01-01] MEDS: OLANZapine 10 MG VIAL 5 MG IM (09:35)
[2023-01-01] MEDS: LORazepam 2 MG/ML VIAL IM (09:35)
[2023-01-01 09:43] VITALS: BP 132/49; PULSE 110; RESP 22; O2SAT 98; BMI 26.4
--- NOTE | 2023-01-01 09:45 | ECG_ITS ---
Test Reason : ALTERED MENTAL Blood Pressure : / mmHG Vent. Rate : 090 BPM Atrial Rate : 090 BPM P-R Int : 174 ms QRS Dur : 080 ms QT Int : 388 ms P-R-T Axes : 042 010 024 degrees QTc Int : 474 ms Normal sinus rhythm Normal ECG When compared with ECG of 13-NOV-2022 15:05, Vent. rate has increased BY 33 BPM QRS axis Shifted left Criteria for Lateral infarct are no longer Present Referred By: Marisel Maurice Electronically Signed By:TEODORO KAUFFMAN
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
--- NOTE | 2023-01-01 09:59 | PC.NURSE ---
pt c/o RUE pain d/t physical restraint being applied - security called. security currently taking right wrist restrain off and repositioning arm. pt tolerated position change well. still tearful and weeping.
[2023-01-01 10:46] LABS: MANUAL DIFF FLAG NO
[2023-01-01 10:48] LABS: Basophils Absolute Auto 0.1 X10*3/uL (0.0-0.2); Basophils Percent Auto 0.9 % (0-2); Eosinophils Absolute Auto 0.1 X10*3/uL (0.0-0.4); Eosinophils Percent Auto 2.2 % (0-4); Hemoglobin 11.1 g/dl (12.0-16.0); Imm Gran Abs Auto 0.03 X10*3/uL (0.00-0.03); Imm Gran Pct Auto 0.5 % (0.0-0.4); Lymphocytes Absolute Auto 1.5 X10*3/uL (1.2-4.9); Lymphocytes Percent Auto 27.5 % (20-40); Mean Corpuscular HGB Conc 33.6 g/dl (31.0-35.0); Mean Corpuscular Hemoglobin 32.5 pg (27.0-33.0); Mean Corpuscular Volume 96.5 fL (80.0-98.0); Mean Platelet Volume 9.5 fL (9.4-12.3); Monocytes Absolute Auto 0.5 X10*3/uL (0.1-1.2); Monocytes Percent Auto 8.3 % (2-11); Neutrophils Absolute Auto 3.3 x10*3/uL (2.0-8.3); Neutrophils Percent Auto 60.6 % (45-73); Platelet Count 193 X10*3/uL (160-400); Red Blood Count 3.42 X10*6/uL (4.20-5.50); Red Cell Distribution Width 12.5 % (11.0-16.0); White Blood Count 5.5 X10*3/uL (4.8-10.8)
[2023-01-01 10:54] LABS: Ammonia 28 umol/L (13-55)
--- NOTE | 2023-01-01 10:54 | PC.NURSE ---
security notified on pt being calm/cooperative/sleeping. all 4 restraints removed. pt tolerated well. still currently asleep. call nickerson placed within reach.
[2023-01-01 11:02] LABS: COVID-19 Test Negative (Negative); IDNOW Serial# BCCEAD1C
[2023-01-01 11:03] LABS: Alanine Aminotransferase 23 U/L (0-31); Albumin Level 3.7 g/dL (3.5-5.0); Alkaline Phosphatase 60 U/L (39-117); Anion Gap 15 (12-20); Aspartate Amino Transferase 34 U/L (5-31); Bilirubin Direct 0.2 mg/dL (0.0-0.5); Bilirubin Total 0.4 mg/dL (0.0-1.0); Blood Urea Nitrogen 13 mg/dL (9-16); Calcium 9.1 mg/dL (8.4-10.2); Carbon Dioxide 26 mmol/L (22-29); Chloride 99 mmol/L (96-108); Creatinine Clr Calc Pharmacy 55.4; Estimated Glomerular Filt Rate > 60; Glucose Random 229 mg/dL (60-115); Magnesium 1.8 mg/dL (1.6-2.6); Potassium 4.5 mmol/L (3.3-5.1); Sodium 135 mmol/L (135-145); Total Protein 6.9 g/dL (6.5-8.0)
[2023-01-01 11:13] LABS: Ethanol < 10 mg/dL
[2023-01-01 11:23] LABS: TSH reflex Free T4 1.03 uIU/mL (0.32-4.0)
[2023-01-01 11:55] VITALS: BP 97/55; PULSE 93; RESP 16; O2SAT 99
--- NOTE | 2023-01-01 11:55 | PC.NURSE ---
pt still currently sleeping w/ no signs of apparent distress. pt still remains calm and cooperative. sitter bedside. vss. nsr on the monitoring analyst. call nickerson placed within reach.
[2023-01-01 16:18] VITALS: BP 101/51; PULSE 84; RESP 12; O2SAT 96
[2023-01-01 18:00] VITALS: BP 117/63; PULSE 95; RESP 16; O2SAT 98
--- NOTE | 2023-01-01 18:21 | PC.NURSE ---
pt now awake. pt remains calm and cooperative. vss and up to date. nsr on the case packer. pt resting comfortably in no apparent distress. pt watching tv w/ the lights dimmed. call nickerson placed within reach.
[2023-01-01 21:10] VITALS: BP 149/59; PULSE 85; RESP 17; TEMP 36.6; O2SAT 96
[2023-01-02 07:25] LABS: Glucose, Whole Blood 172 mg/dL (60-115)
--- NOTE | 2023-01-02 07:37 | PC.NURSE ---
Pt amb to br urine collected
[2023-01-02 08:01] LABS: Appearance Urine Clear; Color Urine Yellow; Glucose Urine UA 100 mg/dL (Negative); Leukocyte Esterase Urine Trace (Negative); Nitrite Urine Negative (Negative); PH 6.5 (5.0-9.0); UMIC TRIGGER UACC YES; Urine Blood Negative (Negative); Urine Ketones Negative (Negative); Urine Protein Negative (Neg-Trace)
[2023-01-02 08:12] LABS: Amphetamine Screen Urine Not Detected (Not Detect); Bacteria Urine None Seen (None Seen); Barbiturates, Urine Not Detected (Not Detect); Benzodiazepines Screen Urine Not Detected (Not Detect); Cannabinoid Screen Urine Not Detected (Not Detect); Cocaine Screen Urine Not Detected (Not Detect); Fentanyl, urine POSITIVE (Not Detect); Hyaline Casts Urine 0-2 /LPF (0-2); Opiate Screen Urine Not Detected (Not Detect); Phencyclidine Screen Urine Not Detected (Not Detect); RBC Urine 0-2 /HPF (0-2); Squamous Epithelial Cell Urine 0-2 /HPF (0-2); WBC Urine 0-5 /HPF (0-5)
--- NOTE | 2023-01-02 09:06 | PC.NURSE ---
met with care team feels like patient can go back to SNF
[2023-01-02 11:14] VITALS: BP 128/71; PULSE 82; RESP 16; TEMP 36.8; O2SAT 98
--- NOTE | 2023-01-02 11:37 | PC.NURSE ---
amb to br several times, with and without assist has done well with ambulation. tolerating PO waiting on psych consult
[2023-01-02] MEDS: OLANZapine 10 MG VIAL 5 MG IM (13:45)
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
[2023-01-02] MEDS: Gabapentin 300 MG CAPSULE PO (16:03)
[2023-01-02] MEDS: Levothyroxine Sodium 75 MCG TABLET PO (16:03)
[2023-01-02] MEDS: Loratadine 10 MG TABLET PO (16:03)
[2023-01-02] MEDS: Clopidogrel Bisulfate 75 MG TABLET PO (16:03)
[2023-01-02] MEDS: Metoprolol Tartrate 25 MG TABLET PO (16:04)
[2023-01-02] MEDS: Escitalopram Oxalate 10 MG TABLET PO (16:11)
[2023-01-02 16:23] VITALS: BP 113/68; PULSE 100; RESP 16; TEMP 36.3; O2SAT 97
[2023-01-02 16:37] VITALS: BP 159/62; PULSE 73; RESP 16; TEMP 36.7; O2SAT 98
--- NOTE | 2023-01-02 16:57 | MHC.EDTECH ---
PATIENT REFUSED HER BLOOD SUGAR CHECK .
[2023-01-02 21:14] LABS: Glucose, Whole Blood 283 mg/dL (60-115)
[2023-01-02] MEDS: Insulin Lispro 100 UNIT/ML 3 ML VIAL SUBCUT (21:27)
[2023-01-02] MEDS: Insulin Glargine,Hum.rec.anlog 100 UNIT/ML 10 ML VIAL 44 UNIT SUBCUT (21:28)
[2023-01-02] MEDS: Atorvastatin Calcium 20 MG TABLET PO (21:30)
[2023-01-02] MEDS: Memantine HCl 10 MG TABLET PO (21:30)
[2023-01-02] MEDS: Gabapentin 400 MG CAPSULE 1200 MG PO (21:31)
[2023-01-02] MEDS: traZODone HCL 25 MG HALFTAB 75 MG PO (21:31)
[2023-01-02] MEDS: Valsartan 80 MG TABLET PO (21:31)
[2023-01-02] MEDS: Donepezil HCl 10 MG TABLET PO (21:47)
[2023-01-03 01:06] VITALS: BP 135/68; PULSE 78; RESP 17; TEMP 36.6; O2SAT 95
--- NOTE | 2023-01-03 02:28 | PC.NURSE ---
Patient is currently in bed appears sleeping, no distress observed/reported, behavior non concerning at this time, medication compliant, POC at 2110 was 283 covered as ordered, appetite adequate, patient is currently in street cloths and per shift report charge nurse okayed, safety check initiated at 1845 in the POD, patient is primarily Italian speaking, VSS, will continue to monitor.
--- NOTE | 2023-01-03 02:33 | PC.NURSE ---
Per care team patient disposition is pending psych consult which is ordered for today. Patient may be discharged back to her SNF.
[2023-01-03] MEDS: Levothyroxine Sodium 75 MCG TABLET PO (04:51)
--- NOTE | 2023-01-03 05:45 | MHC.EDTECH ---
PT BELONGINGS PLACED IN LOCKER #4
[2023-01-03] MEDS: Gabapentin 300 MG CAPSULE PO ×2 (08:10→15:06)
[2023-01-03] MEDS: Escitalopram Oxalate 10 MG TABLET PO (08:10)
[2023-01-03] MEDS: Memantine HCl 10 MG TABLET PO (08:10)
[2023-01-03] MEDS: Metoprolol Tartrate 25 MG TABLET PO (08:10)
[2023-01-03] MEDS: Loratadine 10 MG TABLET PO (08:10)
[2023-01-03] MEDS: Clopidogrel Bisulfate 75 MG TABLET PO (08:10)
[2023-01-03 08:16] VITALS: BP 129/66; PULSE 73; RESP 18; TEMP 36.2; O2SAT 94
--- NOTE | 2023-01-03 08:33 | P.CNPS_ITS ---
History of Present Illness Date of Service: 01/03/2023 Chief Complaint: sect 12, combative, dementia, behavioral, per ems Reason for Consult: combative behaviors Requesting physician: Marisel Maurice Discussed with referring provider: Yes Sources of Information: patient interviewed, chart reviewed and crisis/core team assessment reviewed HPI Narrative: Ms. Landis is a 67 year-old woman with hx of dementia. Pt was brought from [facility] due to pt throwing trays to other residents or a resident. Pt known to this information writer through previous assessment back in October of this year with similar presentation. Pt received Olanzapine IM this morning due to agitation. Pt initially guarded, covering face with blanket when this information writer attempted to talk to her. She finally agreed to talk with this information writer. She reports she got very upset because she grabbed a box of milk from refrigerator and it was taken by staff which she reports did not offer explanation as to why she couldn't take it. She also reports she does not get along with her roommate who refused to talk with her as pt reports I was agitated, roommate told me to calm down first. Pt often referring to staff or roommate as stupid. She reports she is in agreement to return to SNF. She denies SI/HI. No signs of psychosis or delusion. It appears that pt was switched from seroquel BID, to trazodone BID, whichwas recommended to stop trazodone BID due to anticholinergic side effects with limited benefits in mood. Past Psychiatric History: Inpatient: none OP: [facility], [facility] [employer] [phone]. Past medication trials: trazodone, including doses during the day, seroquel, lexapro, gabapentin. [facility] [place] Medical History (Updated 01/08/23 @ 10:46 by Tanya Perez) Major neurocognitive disorder Hyperlipidemia Diabetes Diagnostics Vital Signs (24Hr): Vital Signs - 24 hr 01/02/23 11:14 01/02/23 16:23 01/02/23 16:37 Temperature 98.3 F 97.4 F 98.0 F Pulse Rate 82 100 73 Respiratory Rate 16 16 16 Blood Pressure 128/71 113/68 159/62 H Pulse Oximetry 98 97 98 Oxygen Delivery Method Room Air Room Air Room Air 01/03/23 01:06 01/03/23 08:16 Temperature 97.8 F 97.2 F Pulse Rate 78 73 Respiratory Rate 17 18 Blood Pressure 135/68 129/66 Pulse Oximetry 95 94 Oxygen Delivery Method Room Air Room Air BMI result Body Mass Index 26.4 Labs 01/01/23 10:40 01/01/23 10:40 Labs: Laboratory Results - last 48 hr 01/01/23 01/02/23 01/02/23 10:40 07:22 07:42 WBC 5.5 RBC 3.42 L Hgb 11.1 L Hct 33.0 L MCV 96.5 MCH 32.5 MCHC 33.6 RDW 12.5 Plt Count 193 MPV 9.5 Immature Gran % (Auto) 0.5 H Neut % (Auto) 60.6 Lymph % (Auto) 27.5 Ceiba % (Auto) 8.3 Eos % (Auto) 2.2 Baso % (Auto) 0.9 Lymph # (Auto) 1.5 Ceiba # (Auto) 0.5 Eos # (Auto) 0.1 Baso # (Auto) 0.1 Abs Immat Gran (auto) 0.03 Absolute Neuts (auto) 3.3 Absolute Nucleated RBC 0.000 Nucleated RBC % (auto) 0.0 Sodium 135 Potassium 4.5 Chloride 99 Carbon Dioxide 26 Anion Gap 15 BUN 13 Creatinine 0.84 Estim Creat Clear Calc 55.4 Estimated GFR > 60 POC Glucose 172 H Random Glucose 229 H Calcium 9.1 Magnesium 1.8 Total Bilirubin 0.4 Direct Bilirubin 0.2 AST 34 H ALT 23 Alkaline Phosphatase 60 Ammonia 28 Total Protein 6.9 Albumin 3.7 TSH 1.03 Urine Color Yellow Urine Appearance Clear Urine pH 6.5 Ur Specific [place] 1.010 Urine Protein Negative Urine Glucose (UA) 100 H Urine Ketones Negative Urine Blood Negative Urine Nitrite Negative Ur Leukocyte Esterase Trace H Urine RBC 0-2 Urine WBC 0-5 Ur Squamous Epith Cells 0-2 Urine Bacteria None Seen Hyaline Casts 0-2 Urine Opiates Screen Not Detected Urine Fentanyl Screen POSITIVE H Ur Barbiturates Screen Not Detected Ur Phencyclidine Scrn Not Detected Ur Amphetamines Screen Not Detected U Benzodiazepines Scrn Not Detected Urine Cocaine Screen Not Detected U Marijuana (THC) Screen Not Detected Ethyl Alcohol < 10 COVID-19 ([facility]) Negative COVID-19 Clin Com See Note 01/02/23 21:11 WBC RBC Hgb Hct MCV MCH MCHC RDW Plt Count MPV Immature Gran % (Auto) Neut % (Auto) Lymph % (Auto) Ceiba % (Auto) Eos % (Auto) Baso % (Auto) Lymph # (Auto) [place]iba # (Auto) Eos # (Auto) Baso # (Auto) Abs Immat Gran (auto) Absolute Neuts (auto) Absolute Nucleated RBC Nucleated RBC % (auto) Sodium Potassium Chloride Carbon Dioxide Anion Gap BUN Creatinine Estim Creat Clear Calc Estimated GFR POC Glucose 283 H Random Glucose Calcium Magnesium Total Bilirubin Direct Bilirubin AST ALT Alkaline Phosphatase Ammonia Total Protein Albumin TSH Urine Color Urine Appearance Urine pH Ur Specific [place] Urine Protein Urine Glucose (UA) Urine Ketones Urine Blood Urine Nitrite Ur Leukocyte Esterase Urine RBC Urine WBC Ur Squamous Epith Cells Urine Bacteria Hyaline Casts Urine Opiates Screen Urine Fentanyl Screen Ur Barbiturates Screen Ur Phencyclidine Scrn Ur Amphetamines Screen U Benzodiazepines Scrn Urine Cocaine Screen U Marijuana (THC) Screen Ethyl Alcohol COVID-19 ([facility]) COVID-19 Clin Com Imaging Radiology Impressions: ITS Impressions Head CT 01/01/23 12:15 IMPRESSION: * Chronic small vessel ischemic changes within supratentorial white matter. 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 * No intracranial mass or hemorrhage. No acute intracranial pathology. Mental Status Exam Mental Status Exam Narrative: Appearance: wearing hospital gown, fair hygiene, in NAD Behavior: cooperative Psychomotor: no agitation noted Speech: clear, normal rate/rhythm/volume, spontaneous TP: linear TC: no overt delusional content noted or reported, pt upset about being brought to hospital against her will Mood: okay Affect: congruent SI: denies HI: denies VH/AH: none Delusions: none Insight/judgment: poor x 2. in that she has no insight into how her behaviors affect others and her placement at [facility]. Memory/cog: pt alert, oriented to place, situation, month, date and year. Medications Medications Current Medications Acetaminophen (Acetaminophen 325 Mg Tablet) 650 mg PO Q6H PRN PRN Reason: pain/fever Atorvastatin Calcium (Atorvastatin Calcium 20 Mg Tablet) 20 mg PO BEDTIME [facility] Last Admin: 01/02/23 21:30 Dose: 20 mg Bisacodyl (Bisacodyl 10 Mg Supp.Rect) 10 mg AL DAILY PRN PRN Reason: Constipation Clopidogrel Bisulfate (Clopidogrel Bisulfate 75 Mg Tablet) 75 mg PO DAILY [facility] Last Admin: 01/03/23 08:10 Dose: 75 mg Dextrose (Dextrose 50 % 25 Gm/50 Ml Syringe) 25 gm IVPUSH Q15M PRN; Protocol PRN Reason: per Hypoglycemia Standing Ord. Donepezil HCl (Donepezil Hcl 10 Mg Tablet) 10 mg PO BEDTIME [facility] Last Admin: 01/02/23 21:47 Dose: 10 mg Escitalopram Oxalate (Escitalopram Oxalate 10 Mg Tablet) 10 mg PO DAILY [facility] Last Admin: 01/03/23 08:10 Dose: 10 mg Gabapentin (Gabapentin 400 Mg Capsule) 1,200 mg PO BEDTIME [facility] Last Admin: 01/02/23 21:31 Dose: 1,200 mg Gabapentin (Gabapentin 300 Mg Capsule) 300 mg PO BID@0900,1500 [facility] Last Admin: 01/03/23 08:10 Dose: 300 mg Glucose (Glucose Gel 15 Gm Gel..Gram.) 15 gm PO Q15M PRN; Protocol PRN Reason: per Hypoglycemia Standing Ord. Insulin Glargine (Insulin Glargine,Hum.Rec.Anlog 100 Unit/Ml 10 Ml Vial) 44 unit SUBCUT BEDTIME [facility] Last Admin: 01/02/23 21:28 Dose: 44 unit Insulin Human Lispro (Insulin Lispro 100 Unit/Ml 3 Ml Vial) 0 unit SUBCUT QIDACHS [facility]; Protocol Last Admin: 01/03/23 08:10 Dose: Not Given Levothyroxine Sodium (Levothyroxine Sodium 75 Mcg Tablet) 75 mcg PO DAILY@0630 [facility] Last Admin: 01/03/23 04:51 Dose: 75 mcg Loperamide HCl (Loperamide Hcl 2 Mg Capsule) 2 mg PO Q6H PRN PRN Reason: diarrhea Loratadine (Loratadine 10 Mg Tablet) 10 mg PO DAILY [facility] Last Admin: 01/03/23 08:10 Dose: 10 mg Magnesium Hydroxide (Milk Of Magnesia 30 Ml Oral.Susp) 30 ml PO DAILY PRN PRN Reason: Constipation Memantine (Memantine Hcl 10 Mg Tablet) 10 mg PO BID [facility] Last Admin: 01/03/23 08:10 Dose: 10 mg Metoprolol Tartrate (Metoprolol Tartrate 25 Mg Tablet) 25 mg PO DAILY [facility]; Protocol Last Admin: 01/03/23 08:10 Dose: 25 mg Quetiapine Fumarate (Quetiapine Fumarate 50 Mg Tablet) 50 mg PO Q6H PRN PRN Reason: Agitation Sodium Biphosphate/Sodium Phosphate (Sodium Phosphate,Ceiba-Dibasic 133 Ml Enema) 118 ml AL DAILY PRN PRN Reason: Constipation Trazodone HCl (Trazodone Hcl 25 Mg Halftab) 25 mg PO DAILY@1300 [facility] Trazodone HCl (Trazodone Hcl 25 Mg Halftab) 75 mg PO BEDTIME [facility] Last Admin: 01/02/23 21:31 Dose: 75 mg Valsartan (Valsartan 80 Mg Tablet) 80 mg PO BEDTIME [facility]; Protocol Last Admin: 01/02/23 21:31 Dose: 80 mg Allergies Allergies Allergy/AdvReac Type Severity Reaction Status Date / Time aspirin [ASPIRIN] Allergy Unknown UNKNOWN Verified 01/01/23 09:43 Assessment & Plan Assessment & Plan (1) Major neurocognitive disorder: Status: Acute Code(s): F03.90 - Unspecified dementia, unspecified severity, without behavioral disturbance, psychotic disturbance, mood disturbance, and anxiety Plan Mrs. Landis is a 67 year-old woman with hx of dementia. She was brought to [facility] due to throwing tray at staff and verbally aggressive towards roommate. In the ED, pt initially agitated as she was brought here against her will. She is fully oriented to situation and events leading to this admission, although lacks insight as to how her behaviors affect others and her safety at the facility. Pt presents as calmer. No incidents while in the ED otherwise. Pt known to this information writer from previous assessment back in October of 2022. At that time recommendation was d/c trazodone BID as it has anticholinergic side effects with little benefit in mood. Pt has long hx predating her dx of dementia of mood instability and would greatly benefit from mood stabiler component of seroquel rather than trazodone. But this medication can be made in the community. Total time managing care of this patient today ____ minutes.
[2023-01-03] MEDS: Lidocaine 4 % Cream KIT 1 APPL TOPICAL (08:50)
[2023-01-03] MEDS: Acetaminophen 325 MG TABLET 650 MG PO (08:53)
[2023-01-03 10:33] VITALS: RESP 18
--- NOTE | 2023-01-03 12:39 | PHA.MEDREC ---
Pharmacy Consult ? Medication Reconciliation Pharmacy has completed the medication reconciliation. Reviewed med rec done by nursing
[2023-01-03] MEDS: Insulin Lispro 100 UNIT/ML 3 ML VIAL SUBCUT (12:59)
[2023-01-03 13:06] LABS: Glucose, Whole Blood 227 mg/dL (60-115)
[2023-01-03] MEDS: traZODone HCL 25 MG HALFTAB PO (15:06)
--- NOTE | 2023-01-03 15:10 | MHC.CARE ---
Plan for Pt to be discharged back to to nursing facility. Pt does meet criteria for IPLOC. Pt behaviors will not be negated in an IPLOC admission. Pt has been medication compliant. Case reviewed with Tanya Perez NP.
--- NOTE | 2023-01-03 15:37 | PC.NURSE ---
Shae had some episodes of varying agitation this shift but was able to be redirected. She is advocating to want to go back to her facility. Compliant with medications and allowed POC testing and insulin to be given. Shae has had a good appetite and has been steady while ambulating. [facility] called and nurse to nurse report given to Valentina FLORENCE.
--- NOTE | 2023-01-03 18:33 | PC.NURSE ---
Shae refused her POC before dinner. She knows she is leaving and reports she will take care of it when she returns to her facility.
--- NOTE | 2023-01-03 19:13 | PC.NURSE ---
[facility] arrived to transport Shae back to SNF facility. Belongings returned. Shae was happy, smiling and waving goodbye. Daughter was present and escorted ambulance outside.
== END 2023-01-03 19:18 | disposition skilled nursing facility (03) ==
PROVIDERS: Emergency Provider Emergency Medicine; PCP Internal Medicine
DX: F03.911 Unspecified dementia, unspecified severity, with agitation (principal); R41.82 Altered mental status, unspecified; Z20.822 Contact with and (suspected) exposure to COVID-19; E11.9 Type 2 diabetes mellitus without complications; I10 Essential (primary) hypertension; E78.5 Hyperlipidemia, unspecified; Z78.1 Physical restraint status; Z79.4 Long term (current) use of insulin; Z79.899 Other long term (current) drug therapy
CPT/HCPCS: 36415; 70450; 80048; 80076; 80307; 81001; 81003; 82140; 82947; 83735; 84443; 85025; 87635; 93005; 99285; J2060; S9485

== ENCOUNTER → 2023-01-01 10:13 | Outpatient (BNV) | payer MEDICAID, SELFPAY | PROVIDERS: Emergency Provider Emergency Medicine; PCP Internal Medicine; Visit Provider Social Worker | DX: F03.918 Unspecified dementia, unspecified severity, with other behavioral disturbance (principal) | CPT/HCPCS: 99284 ==

== ENCOUNTER 2023-01-07 16:50 | Inpatient (IN) | payer OTHER, MEDICAID, SELFPAY ==
--- NOTE | ~2023-01-07 | XR_ITS ---
Examination bilateral knee. CLINICAL INDICATION: Pain. Question osteoarthritis. TECHNIQUE: 2 views each knee. FINDINGS: Left knee: There is minimal loss of patellofemoral compartment joint space. No visible acute fracture, dislocation or subluxation seen. There is no joint effusion. The soft tissues are normal. Right knee: There is minimal loss of medial and patellofemoral compartment joint space with periarticular spurring. No visible fracture, dislocation or subluxation seen. The soft tissues are normal. XR/XR knee RT 2V IMPRESSION: Mild degenerative changes medial and patellofemoral compartment both knees. No visible acute fracture, dislocation or subluxation seen.
--- NOTE | ~2023-01-07 | XR_ITS ---
Examination bilateral knee. CLINICAL INDICATION: Pain. Question osteoarthritis. TECHNIQUE: 2 views each knee. FINDINGS: Left knee: There is minimal loss of patellofemoral compartment joint space. No visible acute fracture, dislocation or subluxation seen. There is no joint effusion. The soft tissues are normal. Right knee: There is minimal loss of medial and patellofemoral compartment joint space with periarticular spurring. No visible fracture, dislocation or subluxation seen. The soft tissues are normal. XR/XR knee LT 2V IMPRESSION: Mild degenerative changes medial and patellofemoral compartment both knees. No visible acute fracture, dislocation or subluxation seen.
[2023-01-07 17:10] VITALS: BP 127/61; PULSE 88; RESP 16; TEMP 36.6; O2SAT 93; BMI 25.4
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
[2023-01-07 17:55] LABS: MANUAL DIFF FLAG NO
[2023-01-07 18:07] LABS: Basophils Percent Auto 0.6 % (0-2); Eosinophils Absolute Auto 0.2 X10*3/uL (0.0-0.4); Eosinophils Percent Auto 4.3 % (0-4); Hematocrit 35.1 % (37.0-47.0); Hemoglobin 11.9 g/dl (12.0-16.0); Imm Gran Abs Auto 0.04 X10*3/uL (0.00-0.03); Imm Gran Pct Auto 0.8 % (0.0-0.4); Lymphocytes Absolute Auto 1.8 X10*3/uL (1.2-4.9); Mean Corpuscular HGB Conc 33.9 g/dl (31.0-35.0); Mean Corpuscular Hemoglobin 32.3 pg (27.0-33.0); Mean Corpuscular Volume 95.4 fL (80.0-98.0); Mean Platelet Volume 9.6 fL (9.4-12.3); Monocytes Absolute Auto 0.5 X10*3/uL (0.1-1.2); Monocytes Percent Auto 8.7 % (2-11); Neutrophils Absolute Auto 2.7 x10*3/uL (2.0-8.3); Neutrophils Percent Auto 51.6 % (45-73); Platelet Count 193 X10*3/uL (160-400); Red Blood Count 3.68 X10*6/uL (4.20-5.50); Red Cell Distribution Width 12.4 % (11.0-16.0); White Blood Count 5.2 X10*3/uL (4.8-10.8)
[2023-01-07 18:14] LABS: Alanine Aminotransferase 29 U/L (0-31); Albumin Level 3.8 g/dL (3.5-5.0); Alkaline Phosphatase 91 U/L (39-117); Anion Gap 10 (12-20); Aspartate Amino Transferase 33 U/L (5-31); Bilirubin Total 0.2 mg/dL (0.0-1.0); Blood Urea Nitrogen 11 mg/dL (9-16); Calcium 9.2 mg/dL (8.4-10.2); Carbon Dioxide 29 mmol/L (22-29); Chloride 101 mmol/L (96-108); Creatinine Clr Calc Pharmacy 52.2; Estimated Glomerular Filt Rate > 60; Ethanol < 10 mg/dL; Glucose Random 309 mg/dL (60-115); Potassium 4.8 mmol/L (3.3-5.1); Sodium 135 mmol/L (135-145); Total Protein 7.1 g/dL (6.5-8.0)
[2023-01-07 18:16] LABS: Amphetamine Screen Urine Not Detected (Not Detect); Barbiturates, Urine Not Detected (Not Detect); Benzodiazepines Screen Urine Not Detected (Not Detect); Cannabinoid Screen Urine Not Detected (Not Detect); Cocaine Screen Urine Not Detected (Not Detect); Fentanyl, urine Not Detected (Not Detect); Opiate Screen Urine Not Detected (Not Detect); Phencyclidine Screen Urine Not Detected (Not Detect)
[2023-01-07 18:21] LABS: Appearance Urine Clear; Color Urine Yellow; Glucose Urine UA >=1000 mg/dL (Negative); Leukocyte Esterase Urine Negative (Negative); Nitrite Urine Negative (Negative); PH 7.5 (5.0-9.0); UMIC TRIGGER UACC YES; Urine Blood Negative (Negative); Urine Ketones Negative (Negative); Urine Protein Negative (Neg-Trace)
--- NOTE | 2023-01-07 18:25 | PHA.MEDREC ---
Pharmacy Consult ? Medication Reconciliation Pharmacy has completed the medication reconciliation. Patient [facility] from [facility] with a med list. Coretta Guevara, YvonneD
[2023-01-07 18:26] LABS: Bacteria Urine None Seen (None Seen); Hyaline Casts Urine 0-2 /LPF (0-2); RBC Urine 0-2 /HPF (0-2); Squamous Epithelial Cell Urine 0-2 /HPF (0-2); WBC Urine 0-5 /HPF (0-5)
--- NOTE | 2023-01-07 21:51 | PC.NURSE ---
Report given to Dimitri in pod, patient assisted to room in pod.
[2023-01-08] MEDS: Acetaminophen 325 MG TABLET 650 MG PO ×2 (00:10→23:46)
[2023-01-08 00:16] VITALS: BP 172/79; PULSE 78; RESP 17; TEMP 36.4; O2SAT 94
[2023-01-08 00:33] LABS: Glucose, Whole Blood 155 mg/dL (60-115)
[2023-01-08] MEDS: QUEtiapine Fumarate 25 MG TABLET 37.5 MG PO (00:49)
[2023-01-08] MEDS: Donepezil HCl 10 MG TABLET PO ×2 (00:50→21:11)
[2023-01-08] MEDS: Memantine HCl 10 MG TABLET PO ×3 (00:50→21:12)
[2023-01-08] MEDS: Valsartan 80 MG TABLET PO ×2 (00:50→21:11)
[2023-01-08] MEDS: Gabapentin 600 MG TABLET 1200 MG PO ×2 (00:50→21:11)
[2023-01-08] MEDS: QUEtiapine Fumarate 25 MG TABLET PO ×2 (00:52→10:02)
--- NOTE | 2023-01-08 01:21 | PC.NURSE ---
POC at 0028 was 155, insulin held per provider's order. Patient offered snack and accepted, currently in bed appears sleeping, will continue to monitor.
[2023-01-08] MEDS: Levothyroxine Sodium 75 MCG TABLET PO (05:50)
--- NOTE | 2023-01-08 05:53 | PC.NURSE ---
Patient slept through the night, no distress observed/reported, behavior non concerning but unpredictable, Bengali speaking primarily, medication complaint, care consult ordered/pending evaluation, Tylenol 650 mg administered with + effect, will continue to monitor.
[2023-01-08 07:23] LABS: Glucose, Whole Blood 220 mg/dL (60-115)
[2023-01-08] MEDS: Clopidogrel Bisulfate 75 MG TABLET PO (10:02)
[2023-01-08] MEDS: Escitalopram Oxalate 10 MG TABLET PO (10:02)
[2023-01-08] MEDS: Gabapentin 300 MG CAPSULE PO (10:02)
[2023-01-08] MEDS: Loratadine 10 MG TABLET PO (10:03)
[2023-01-08] MEDS: Metoprolol Tartrate 25 MG TABLET PO (10:03)
[2023-01-08 10:09] VITALS: BP 145/84; PULSE 80; RESP 16; TEMP 36.6; O2SAT 97
[2023-01-08 12:44] LABS: Glucose, Whole Blood 240 mg/dL (60-115)
[2023-01-08] MEDS: Insulin Lispro 100 UNIT/ML 3 ML VIAL SUBCUT ×3 (12:58→20:38)
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
--- NOTE | 2023-01-08 13:54 | MHC.CARE ---
Left message with Jordan from Social Work at [facility]
[2023-01-08] MEDS: risperiDONE 1 MG TABLET PO ×2 (15:12→21:11)
[2023-01-08] MEDS: Divalproex Sodium 250 MG TABLET.DR PO (15:13)
--- NOTE | 2023-01-08 15:49 | ECG_ITS ---
Test Reason : Medical Clearance Blood Pressure : / mmHG Vent. Rate : 068 BPM Atrial Rate : 068 BPM P-R Int : 190 ms QRS Dur : 080 ms QT Int : 416 ms P-R-T Axes : 061 056 071 degrees QTc Int : 442 ms Normal sinus rhythm Normal ECG When compared with ECG of 01-JAN-2023 10:53, Nonspecific T wave abnormality no longer evident in Inferior leads Referred By: Francesco Bishop Electronically Signed By:TEODORO KAUFFMAN
[2023-01-08 15:51] VITALS: BP 152/65; PULSE 97; RESP 18; TEMP 36.1; O2SAT 98
[2023-01-08 16:44] LABS: COVID-19 Test Negative (Negative); IDNOW Serial# BCCEAD1C
--- NOTE | 2023-01-08 17:57 | PC.NURSE ---
Shae was OOB this morning and was engaging with Sinhala speaking staff. Shae was observed laughing and talking. Breadman called multiple times today and Shae has been cooperative and easy to engage. Shae is compliant with her medications. AM Lispro held as Shae reported she did not like her breakfast and was not going to eat. This software writer and another RN performed her EKG as she was more comfortable with female staff. Denies SI/HI/AVH. No behavioral concerns noted this shift. Shae has a steady gait.
[2023-01-08 18:20] LABS: Glucose, Whole Blood 419 mg/dL (60-115)
--- NOTE | 2023-01-08 18:29 | PC.NURSE ---
Shae POC before dinner was 419. aware. Most likely due to cranberry juices she was drinking in the last hour. 10U Lispro given per sliding scale. Shae is currently eating her dinner.
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
[2023-01-08 20:16] LABS: Glucose, Whole Blood 373 mg/dL (60-115)
[2023-01-08] MEDS: Insulin Glargine,Hum.rec.anlog 100 UNIT/ML 10 ML VIAL 44 UNIT SUBCUT (20:41)
[2023-01-08] MEDS: Atorvastatin Calcium 20 MG TABLET PO (21:11)
[2023-01-08] MEDS: Divalproex Sodium 500 MG TABLET.DR PO (21:11)
[2023-01-08 21:27] VITALS: BP 156/64; PULSE 77; RESP 18; TEMP 36.6; O2SAT 94
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
--- NOTE | 2023-01-08 22:32 | PC.NURSE ---
Patient reapproached concerning the necklace and ring patient refused to take off earlier. This tech writer was able to successfully remove necklace and ring and place into valuables envelope.
[2023-01-08] MEDS: traZODone HCL 50 MG TABLET PO (23:46)
[2023-01-08] MEDS: QUEtiapine Fumarate 50 MG TABLET PO (23:46)
[2023-01-09] MEDS: Levothyroxine Sodium 75 MCG TABLET PO (06:30)
[2023-01-09 06:39] LABS: Glucose, Whole Blood 265 mg/dL (60-115)
[2023-01-09 08:28] VITALS: BP 107/70; PULSE 94; RESP 16; TEMP 36.4; O2SAT 97
[2023-01-09] MEDS: Metoprolol Tartrate 25 MG TABLET PO (08:30)
[2023-01-09] MEDS: Memantine HCl 10 MG TABLET PO ×2 (08:30→20:26)
[2023-01-09] MEDS: risperiDONE 1 MG TABLET PO (08:30)
[2023-01-09] MEDS: Escitalopram Oxalate 10 MG TABLET PO (08:30)
[2023-01-09] MEDS: Insulin Lispro 100 UNIT/ML 3 ML VIAL SUBCUT ×4 (08:30→20:27)
[2023-01-09] MEDS: Divalproex Sodium 250 MG TABLET.DR PO (08:30)
[2023-01-09] MEDS: Clopidogrel Bisulfate 75 MG TABLET PO (08:30)
[2023-01-09 09:56] VITALS: BMI 27.5
--- NOTE | 2023-01-09 10:05 | PC.NURSE ---
PT STATES THAT SHE HAS NOT SMOKED CIGARETTES FOR MANY MANY YEARS . SHE DENIES NEEDING ANY SUPPORT WITH THIS.
[2023-01-09 11:33] LABS: Glucose, Whole Blood 487 mg/dL (60-115)
[2023-01-09 13:59] LABS: Estimated Average Glucose 226 mg/dL; Hemoglobin A1c % 9.5 % (<6.0)
[2023-01-09 14:24] LABS: TSH reflex Free T4 0.74 uIU/mL (0.32-4.0)
[2023-01-09 14:38] LABS: Folate 13.4 ng/mL (> or = 4.0); Vitamin B12 709 pg/mL (200-900)
[2023-01-09 16:45] LABS: Glucose, Whole Blood 284 mg/dL (60-115)
[2023-01-09] MEDS: Lidocaine 4 % Patch ADH..PATCH 1 PATCH TRANSDERMA (17:28)
[2023-01-09 18:00] VITALS: BP 144/62; PULSE 72; RESP 18; TEMP 36.6
[2023-01-09 20:23] LABS: Glucose, Whole Blood 384 mg/dL (60-115)
[2023-01-09] MEDS: Gabapentin 600 MG TABLET 1200 MG PO (20:25)
[2023-01-09] MEDS: traZODone HCL 50 MG TABLET PO (20:25)
[2023-01-09] MEDS: Donepezil HCl 10 MG TABLET PO (20:26)
[2023-01-09] MEDS: risperiDONE 0.5 MG TABLET PO (20:26)
[2023-01-09] MEDS: Divalproex Sodium 500 MG TABLET.DR PO (20:26)
[2023-01-09] MEDS: Valsartan 80 MG TABLET PO (20:26)
[2023-01-09] MEDS: Atorvastatin Calcium 20 MG TABLET PO (20:27)
[2023-01-09] MEDS: Insulin Glargine,Hum.rec.anlog 100 UNIT/ML 10 ML VIAL 44 UNIT SUBCUT (20:27)
[2023-01-10] MEDS: Levothyroxine Sodium 75 MCG TABLET PO (06:20)
[2023-01-10 06:42] LABS: Glucose, Whole Blood 337 mg/dL (60-115)
[2023-01-10 07:45] VITALS: BP 135/70; PULSE 87; RESP 18; TEMP 35.8; O2SAT 96
[2023-01-10] MEDS: Insulin Lispro 100 UNIT/ML 3 ML VIAL SUBCUT ×4 (09:24→22:17)
[2023-01-10] MEDS: Clopidogrel Bisulfate 75 MG TABLET PO (09:25)
[2023-01-10] MEDS: Escitalopram Oxalate 10 MG TABLET PO (09:25)
[2023-01-10] MEDS: Divalproex Sodium 250 MG TABLET.DR PO (09:25)
[2023-01-10] MEDS: risperiDONE 0.5 MG TABLET PO ×2 (09:25→22:21)
[2023-01-10] MEDS: Memantine HCl 10 MG TABLET PO ×2 (09:25→22:22)
[2023-01-10] MEDS: Metoprolol Tartrate 25 MG TABLET PO (09:25)
[2023-01-10] MEDS: Lidocaine 4 % Patch ADH..PATCH 1 PATCH TRANSDERMA (09:29)
[2023-01-10 11:44] LABS: Glucose, Whole Blood 314 mg/dL (60-115)
--- NOTE | 2023-01-10 15:14 | HO.PSYCHPN ---
Subjective Subjective Date of Service: 01/10/23 Reason For Visit: Depression Subjective Notes: Conditional Voluntary Interim History: The nursing staff reported the patient had been paranoid, isolated flat affect. The manager social responsibility reported that she has contacted the long-term facility to get more collateral information. On interview the patient was despondent unable to provide any information. Mental Status Exam Mental Status Exam Patient Appearance: Well Grooomed Patient Orientation: Person and Situation Level of Consciousness: Awake and Appropriate Patient Behavior: Guarded and Suspicious Mood Description: Withdrawn Affect Description: Blunted Patient Cognition Impaired: Yes Ability to Follow Directions: Poor Speech Pattern: Impoverished Hallucinations: None Delusions: Not Present Thought Process: Slowed Thinking Thought Content: positive for Poverty of Content Judgement: Poor Diagnostics Vital Signs (24Hr): Vital Signs - 24 hr 01/09/23 18:00 01/10/23 07:45 Temperature 97.8 F 96.5 F L Pulse Rate 72 87 Respiratory Rate 18 18 Blood Pressure 144/62 H 135/70 Pulse Oximetry 96 Oxygen Delivery Method Room Air Room Air BMI result Body Mass Index 27.5 Labs 01/07/23 17:49 01/07/23 17:49 Labs: Laboratory Results - last 48 hr 01/08/23 01/08/23 01/08/23 16:05 18:12 20:10 POC Glucose 419 H* 373 H* Estimat Average Glucose Hemoglobin A1c % Vitamin B12 Folate TSH COVID-19 ([facility]) Negative COVID-19 Clin Com See Note 01/09/23 01/09/23 01/09/23 06:33 11:29 13:44 POC Glucose 265 H 487 H* Estimat Average Glucose 226 Hemoglobin A1c % 9.5 H Vitamin B12 709 Folate 13.4 TSH 0.74 COVID-19 ([facility]) COVID-19 Clin Com 01/09/23 01/09/23 01/10/23 16:42 19:47 06:22 POC Glucose 284 H 384 H* 337 H Estimat Average Glucose Hemoglobin A1c % Vitamin B12 Folate TSH COVID-19 ([facility]) COVID-19 Clin Com 01/10/23 11:40 POC Glucose 314 H Estimat Average Glucose Hemoglobin A1c % Vitamin B12 Folate TSH COVID-19 ([facility]) COVID-19 Clin Com Medications Medications Current Medications Acetaminophen (Acetaminophen 325 Mg Tablet) 650 mg PO Q6H PRN PRN Reason: pain/fever Last Admin: 01/08/23 23:46 Dose: 650 mg Acetaminophen (Acetaminophen 325 Mg Tablet) 650 mg PO Q6H PRN PRN Reason: Headache/Pain Mild Scale (1-3) Al Hydroxide/Mg Hydroxide (Magnesium Hydrox/Alum Hydrox 30 Ml Oral.Susp) 30 ml PO Q6H PRN PRN Reason: Heartburn/Nausea Atorvastatin Calcium (Atorvastatin Calcium 20 Mg Tablet) 20 mg PO BEDTIME [facility] Last Admin: 01/09/23 20:27 Dose: 20 mg Bisacodyl (Bisacodyl 10 Mg Supp.Rect) 10 mg [place] DAILY PRN PRN Reason: Constipation Clopidogrel Bisulfate (Clopidogrel Bisulfate 75 Mg Tablet) 75 mg PO DAILY [facility] Last Admin: 01/10/23 09:25 Dose: 75 mg Divalproex Sodium (Divalproex Sodium 500 Mg Tablet.Dr) 500 mg PO BEDTIME [facility] Last Admin: 01/09/23 20:26 Dose: 500 mg Divalproex Sodium (Divalproex Sodium 250 Mg Tablet.) 250 mg PO DAILY [facility] Last Admin: 01/10/23 09:25 Dose: 250 mg Donepezil HCl (Donepezil Hcl 10 Mg Tablet) 10 mg PO BEDTIME [facility] Last Admin: 01/09/23 20:26 Dose: 10 mg Escitalopram Oxalate (Escitalopram Oxalate 10 Mg Tablet) 10 mg PO DAILY [facility] Last Admin: 01/10/23 09:25 Dose: 10 mg Gabapentin (Gabapentin 600 Mg Tablet) 1,200 mg PO BEDTIME [facility] Last Admin: 01/09/23 20:25 Dose: 1,200 mg Glucagon (Glucagon Hcl 1 Mg Vial) 1 mg SUBCUT Q20M PRN PRN Reason: BG <70 AND UNRESPONSIVE Glucose (Glucose Gel 15 Gm Gel..Gram.) 15 gm PO Q15M PRN PRN Reason: BG <70 AND RESPONSIVE Insulin Glargine (Insulin Glargine,Hum.Rec.Anlog 100 Unit/Ml 10 Ml Vial) 44 unit SUBCUT BEDTIME [facility] Last Admin: 01/09/23 20:27 Dose: 44 unit Insulin Human Lispro (Insulin Lispro 100 Unit/Ml 3 Ml Vial) 0 unit SUBCUT QIDACHS [facility]; Protocol Last Admin: 01/10/23 12:27 Dose: 8 unit Levothyroxine Sodium (Levothyroxine Sodium 75 Mcg Tablet) 75 mcg PO DAILY@0630 [facility] Last Admin: 01/10/23 06:20 Dose: 75 mcg Lidocaine (Lidocaine 4 % Patch Adh..Patch) 1 patch TRANSDERMA DAILY [facility]; Protocol Last Admin: 01/10/23 09:29 Dose: 1 patch Loperamide HCl (Loperamide Hcl 2 Mg Capsule) 2 mg PO Q6H PRN PRN Reason: diarrhea Lorazepam (Lorazepam 0.5 Mg Tablet) 0.5 mg PO TID PRN PRN Reason: anxiety/restlessness Magnesium Hydroxide (Milk Of Magnesia 30 Ml Oral.Susp) 30 ml PO DAILY PRN PRN Reason: Constipation Magnesium Hydroxide (Milk Of Magnesia 30 Ml Oral.Susp) 30 ml PO DAILY PRN PRN Reason: Constipation Memantine (Memantine Hcl 10 Mg Tablet) 10 mg PO BID [facility] Last Admin: 01/10/23 09:25 Dose: 10 mg Metoprolol Tartrate (Metoprolol Tartrate 25 Mg Tablet) 25 mg PO DAILY [facility]; Protocol Last Admin: 01/10/23 09:25 Dose: 25 mg Quetiapine Fumarate (Quetiapine Fumarate 50 Mg Tablet) 50 mg PO Q6H PRN PRN Reason: agitation Last Admin: 01/08/23 23:46 Dose: 50 mg Risperidone (Risperidone 0.5 Mg Tablet) 0.5 mg PO BID [facility] Last Admin: 01/10/23 09:25 Dose: 0.5 mg Sodium Biphosphate/Sodium Phosphate (Sodium Phosphate,[place]-Dibasic 133 Ml Enema) 133 ml [place] DAILY PRN PRN Reason: Constipation Trazodone HCl (Trazodone Hcl 50 Mg Tablet) 50 mg PO BEDTIME MRX1 PRN PRN Reason: Insomnia Last Admin: 01/09/23 20:25 Dose: 50 mg Valsartan (Valsartan 80 Mg Tablet) 80 mg PO BEDTIME [facility]; Protocol Last Admin: 01/09/23 20:26 Dose: 80 mg Allergies Allergies Allergy/AdvReac Type Severity Reaction Status Date / Time aspirin [ASPIRIN] Allergy Unknown UNKNOWN Verified 01/01/23 09:43 Assessment & Plan Assessment & Plan (1) Major neurocognitive disorder: Status: Acute Code(s): F03.90 - Unspecified dementia, unspecified severity, without behavioral disturbance, psychotic disturbance, mood disturbance, and anxiety (2) Mood disorder: Status: Acute Code(s): F39 - Unspecified mood [affective] disorder Plan Ms. Landis is a 67 year-old woman with hx of Mood Disorder (untreated for most of her life) and neurocognitive disorder who was brought via EMS from [facility] due to increase verbal aggression towards roommate and one of their staff. Pt is known to this scientific writer through previous assessment for similar presentation. Pt presents as calmer, she does admit to being verbally abusive, although denies any intent to harm self or others. She does lack the insight into how her behaviors affect others and her relationships with others. This tendency to have difficulty seeing other people's need per daughter has been life long. Pt presents with tendency to be irritable, at times explosive but not physically aggressive. She was started back in September on low dose of seroquel but no further medication adjustments have been made to manage these symptoms, which are disruptive but not life threatening nor at imminent risk of harm to self or others. As consequence of minimal intervention in the community, pt has had more frequent ED visits here and at [facility]. We discussed risks, benefits and alternative treatment options, pt agrees to start mood stabilizer for impulsive, explosive behaviors. We also discussed switching seroquel to risperidone. Pt is orientation has been intact all along. PLAN 1. Admit to S1, CV, 15 minutes checks for safety 2. Start depakote 250mg po daily and 500mg po qhs 3. Start risperidone 0.5mg po BID 4. Aftercare planning Reason for continued inpatient stay Substantial Risk for: inability to function, rapid decompensation and med/psych decompensation Time Spent With Patient Time: Total time managing care of this patient today __20__ minutes.
[2023-01-10 16:33] LABS: Glucose, Whole Blood 288 mg/dL (60-115)
[2023-01-10 18:00] VITALS: BP 127/60; PULSE 77; RESP 16; TEMP 36.7; O2SAT 98
[2023-01-10] MEDS: Insulin Glargine,Hum.rec.anlog 100 UNIT/ML 10 ML VIAL 44 UNIT SUBCUT (22:16)
[2023-01-10] MEDS: Gabapentin 600 MG TABLET 1200 MG PO (22:21)
[2023-01-10] MEDS: Donepezil HCl 10 MG TABLET PO (22:22)
[2023-01-10] MEDS: Atorvastatin Calcium 20 MG TABLET PO (22:22)
[2023-01-10] MEDS: Divalproex Sodium 500 MG TABLET.DR PO (22:22)
[2023-01-10] MEDS: Valsartan 80 MG TABLET PO (22:23)
[2023-01-10 22:35] LABS: Glucose, Whole Blood 266 mg/dL (60-115)
[2023-01-11] MEDS: Levothyroxine Sodium 75 MCG TABLET PO (06:41)
[2023-01-11 07:54] LABS: Glucose, Whole Blood 189 mg/dL (60-115)
[2023-01-11 08:30] VITALS: BP 111/70; PULSE 73; RESP 20; TEMP 36.2; O2SAT 97
[2023-01-11] MEDS: Insulin Lispro 100 UNIT/ML 3 ML VIAL SUBCUT ×4 (08:38→20:43)
[2023-01-11] MEDS: Escitalopram Oxalate 10 MG TABLET PO (08:40)
[2023-01-11] MEDS: risperiDONE 0.5 MG TABLET PO ×2 (08:40→20:38)
[2023-01-11] MEDS: Memantine HCl 10 MG TABLET PO ×2 (08:40→20:38)
[2023-01-11] MEDS: Clopidogrel Bisulfate 75 MG TABLET PO (08:40)
[2023-01-11] MEDS: Divalproex Sodium 250 MG TABLET.DR PO (08:41)
[2023-01-11] MEDS: Metoprolol Tartrate 25 MG TABLET PO (08:41)
[2023-01-11] MEDS: Lidocaine 4 % Patch ADH..PATCH 1 PATCH TRANSDERMA (09:10)
[2023-01-11 11:25] LABS: Glucose, Whole Blood 310 mg/dL (60-115)
[2023-01-11 16:41] LABS: Glucose, Whole Blood 277 mg/dL (60-115)
[2023-01-11 19:40] VITALS: BP 123/68; PULSE 76; RESP 16; TEMP 36.7; O2SAT 97
--- NOTE | 2023-01-11 19:59 | HO.PSYCHPN ---
Subjective Subjective Date of Service: 01/11/23 Reason For Visit: Depression Subjective Notes: Conditional Voluntary Interim History: Pt verbally abusive to staff as she was upset because she did not get laguerre as she is on diabetic diet. She later was calm. She slept through the night. No signs of psychosis. Behaviors seem related to her personality/mood d/o rather than dementia or psychosis. She does seem to understand what she is doing. Review of Systems Review of Systems Pt denies chest pain. Pt denies feeling dizzy Denies SOB Denies coughing No constipation or diarrhea Pt reports neck pain Yes all other systems are reviewed and are negative Diagnostics Vital Signs (24Hr): Vital Signs - 24 hr 01/11/23 08:30 Temperature 97.2 F Pulse Rate 73 Respiratory Rate 20 Blood Pressure 111/70 Pulse Oximetry 97 Oxygen Delivery Method Room Air BMI result Body Mass Index 27.5 Labs 01/07/23 17:49 01/07/23 17:49 Labs: Laboratory Results - last 48 hr 01/09/23 01/10/23 01/10/23 19:47 06:22 11:40 POC Glucose 384 H* 337 H 314 H 01/10/23 01/10/23 01/11/23 16:27 22:10 07:51 POC Glucose 288 H 266 H 189 H 01/11/23 01/11/23 11:14 16:37 POC Glucose 310 H 277 H Medications Medications Current Medications Acetaminophen (Acetaminophen 325 Mg Tablet) 650 mg PO Q6H PRN PRN Reason: pain/fever Last Admin: 01/08/23 23:46 Dose: 650 mg Acetaminophen (Acetaminophen 325 Mg Tablet) 650 mg PO Q6H PRN PRN Reason: Headache/Pain Mild Scale (1-3) Al Hydroxide/Mg Hydroxide (Magnesium Hydrox/Alum Hydrox 30 Ml Oral.Susp) 30 ml PO Q6H PRN PRN Reason: Heartburn/Nausea Atorvastatin Calcium (Atorvastatin Calcium 20 Mg Tablet) 20 mg PO BEDTIME [facility] Last Admin: 01/10/23 22:22 Dose: 20 mg Bisacodyl (Bisacodyl 10 Mg Supp.Rect) 10 mg [place] DAILY PRN PRN Reason: Constipation Clopidogrel Bisulfate (Clopidogrel Bisulfate 75 Mg Tablet) 75 mg PO DAILY [facility] Last Admin: 01/11/23 08:40 Dose: 75 mg Divalproex Sodium (Divalproex Sodium 500 Mg Tablet.) 500 mg PO BEDTIME [facility] Last Admin: 01/10/23 22:22 Dose: 500 mg Divalproex Sodium (Divalproex Sodium 250 Mg Tablet.) 250 mg PO DAILY [facility] Last Admin: 01/11/23 08:41 Dose: 250 mg Donepezil HCl (Donepezil Hcl 10 Mg Tablet) 10 mg PO BEDTIME [facility] Last Admin: 01/10/23 22:22 Dose: 10 mg Escitalopram Oxalate (Escitalopram Oxalate 10 Mg Tablet) 10 mg PO DAILY [facility] Last Admin: 01/11/23 08:40 Dose: 10 mg Gabapentin (Gabapentin 600 Mg Tablet) 1,200 mg PO BEDTIME [facility] Last Admin: 01/10/23 22:21 Dose: 1,200 mg Glucagon (Glucagon Hcl 1 Mg Vial) 1 mg SUBCUT Q20M PRN PRN Reason: BG <70 AND UNRESPONSIVE Glucose (Glucose Gel 15 Gm Gel..Gram.) 15 gm PO Q15M PRN PRN Reason: BG <70 AND RESPONSIVE Insulin Glargine (Insulin Glargine,Hum.Rec.Anlog 100 Unit/Ml 10 Ml Vial) 44 unit SUBCUT BEDTIME [facility] Last Admin: 01/10/23 22:16 Dose: 44 unit Insulin Human Lispro (Insulin Lispro 100 Unit/Ml 3 Ml Vial) 0 unit SUBCUT QIDACHS [facility]; Protocol Last Admin: 01/11/23 16:44 Dose: 6 unit Levothyroxine Sodium (Levothyroxine Sodium 75 Mcg Tablet) 75 mcg PO DAILY@0630 [facility] Last Admin: 01/11/23 06:41 Dose: 75 mcg Lidocaine (Lidocaine 4 % Patch Adh..Patch) 1 patch TRANSDERMA DAILY [facility]; Protocol Last Admin: 01/11/23 09:10 Dose: 1 patch Loperamide HCl (Loperamide Hcl 2 Mg Capsule) 2 mg PO Q6H PRN PRN Reason: diarrhea Lorazepam (Lorazepam 0.5 Mg Tablet) 0.5 mg PO TID PRN PRN Reason: anxiety/restlessness Magnesium Hydroxide (Milk Of Magnesia 30 Ml Oral.Susp) 30 ml PO DAILY PRN PRN Reason: Constipation Magnesium Hydroxide (Milk Of Magnesia 30 Ml Oral.Susp) 30 ml PO DAILY PRN PRN Reason: Constipation Memantine (Memantine Hcl 10 Mg Tablet) 10 mg PO BID [facility] Last Admin: 01/11/23 08:40 Dose: 10 mg Metoprolol Tartrate (Metoprolol Tartrate 25 Mg Tablet) 25 mg PO DAILY [facility]; Protocol Last Admin: 01/11/23 08:41 Dose: 25 mg Quetiapine Fumarate (Quetiapine Fumarate 50 Mg Tablet) 50 mg PO Q6H PRN PRN Reason: agitation Last Admin: 01/08/23 23:46 Dose: 50 mg Risperidone (Risperidone 0.5 Mg Tablet) 0.5 mg PO BID [facility] Last Admin: 01/11/23 08:40 Dose: 0.5 mg Sodium Biphosphate/Sodium Phosphate (Sodium Phosphate,[place]-Dibasic 133 Ml Enema) 133 ml [place] DAILY PRN PRN Reason: Constipation Trazodone HCl (Trazodone Hcl 50 Mg Tablet) 50 mg PO BEDTIME MRX1 PRN PRN Reason: Insomnia Last Admin: 01/09/23 20:25 Dose: 50 mg Valsartan (Valsartan 80 Mg Tablet) 80 mg PO BEDTIME [facility]; Protocol Last Admin: 01/10/23 22:23 Dose: 80 mg Allergies Allergies Allergy/AdvReac Type Severity Reaction Status Date / Time aspirin [ASPIRIN] Allergy Unknown UNKNOWN Verified 01/01/23 09:43 Assessment & Plan Assessment & Plan (1) Major neurocognitive disorder: Status: Acute Code(s): F03.90 - Unspecified dementia, unspecified severity, without behavioral disturbance, psychotic disturbance, mood disturbance, and anxiety (2) Mood disorder: Status: Acute Code(s): F39 - Unspecified mood [affective] disorder Plan Ms. Landis is a 67 year-old woman with hx of Mood Disorder (untreated for most of her life) and neurocognitive disorder who was brought via EMS from [facility] due to increase verbal aggression towards roommate and one of their staff. Pt is known to this fha underwriter through previous assessment for similar presentation. Pt presents as calmer, she does admit to being verbally abusive, although denies any intent to harm self or others. She does lack the insight into how her behaviors affect others and her relationships with others. This tendency to have difficulty seeing other people's need per daughter has been life long. Pt presents with tendency to be irritable, at times explosive but not physically aggressive. She was started back in September on low dose of seroquel but no further medication adjustments have been made to manage these symptoms, which are disruptive but not life threatening nor at imminent risk of harm to self or others. As consequence of minimal intervention in the community, pt has had more frequent ED visits here and at [facility]. We discussed risks, benefits and alternative treatment options, pt agrees to start mood stabilizer for impulsive, explosive behaviors. We also discussed switching seroquel to risperidone. Pt is orientation has been intact all along. PLAN 01/11 continue tx. Reason for continued inpatient stay Substantial Risk for: inability to function Time Spent With Patient Time: Total time managing care of this patient today ____ minutes.
[2023-01-11 20:34] LABS: Glucose, Whole Blood 328 mg/dL (60-115)
[2023-01-11] MEDS: Atorvastatin Calcium 20 MG TABLET PO (20:38)
[2023-01-11] MEDS: Valsartan 80 MG TABLET PO (20:38)
[2023-01-11] MEDS: Divalproex Sodium 500 MG TABLET.DR PO (20:39)
[2023-01-11] MEDS: Gabapentin 600 MG TABLET 1200 MG PO (20:39)
[2023-01-11] MEDS: Donepezil HCl 10 MG TABLET PO (20:39)
[2023-01-11] MEDS: Insulin Glargine,Hum.rec.anlog 100 UNIT/ML 10 ML VIAL 44 UNIT SUBCUT (20:42)
[2023-01-12] MEDS: Levothyroxine Sodium 75 MCG TABLET PO (05:53)
[2023-01-12 06:16] LABS: Glucose, Whole Blood 205 mg/dL (60-115)
[2023-01-12 08:46] VITALS: BP 105/54; PULSE 86; RESP 16; TEMP 36.2; O2SAT 98
[2023-01-12] MEDS: Lidocaine 4 % Patch ADH..PATCH 1 PATCH TRANSDERMA (08:47)
[2023-01-12] MEDS: Insulin Lispro 100 UNIT/ML 3 ML VIAL SUBCUT ×4 (08:47→22:08)
[2023-01-12] MEDS: Clopidogrel Bisulfate 75 MG TABLET PO (08:48)
[2023-01-12] MEDS: Metoprolol Tartrate 25 MG TABLET PO (08:48)
[2023-01-12] MEDS: Divalproex Sodium 250 MG TABLET.DR PO (08:48)
[2023-01-12] MEDS: Memantine HCl 10 MG TABLET PO ×2 (08:48→21:37)
[2023-01-12] MEDS: Escitalopram Oxalate 10 MG TABLET PO (08:48)
[2023-01-12] MEDS: risperiDONE 0.5 MG TABLET PO ×2 (08:48→21:37)
[2023-01-12 11:35] LABS: Glucose, Whole Blood 372 mg/dL (60-115)
[2023-01-12 16:53] LABS: Glucose, Whole Blood 209 mg/dL (60-115)
[2023-01-12 18:00] VITALS: BP 114/58; PULSE 70; RESP 17; TEMP 36; O2SAT 96
[2023-01-12] MEDS: Atorvastatin Calcium 20 MG TABLET PO (21:36)
[2023-01-12] MEDS: Divalproex Sodium 500 MG TABLET.DR PO (21:37)
[2023-01-12] MEDS: Gabapentin 600 MG TABLET 1200 MG PO (21:37)
[2023-01-12] MEDS: Donepezil HCl 10 MG TABLET PO (21:37)
[2023-01-12] MEDS: Valsartan 80 MG TABLET PO (21:38)
[2023-01-12 21:56] LABS: Glucose, Whole Blood 260 mg/dL (60-115)
[2023-01-12] MEDS: Insulin Glargine,Hum.rec.anlog 100 UNIT/ML 10 ML VIAL 44 UNIT SUBCUT (22:12)
[2023-01-13] MEDS: traZODone HCL 50 MG TABLET PO (01:16)
[2023-01-13] MEDS: Levothyroxine Sodium 75 MCG TABLET PO (05:28)
[2023-01-13 06:20] LABS: Glucose, Whole Blood 244 mg/dL (60-115)
--- NOTE | 2023-01-13 07:33 | P.PNPSI_ITS ---
Subjective Subjective Date of Service: 01/12/23 Reason For Visit: Depression Subjective Notes: Conditional Voluntary Interim History: Pt slept through the night. She has been visible on the unit. She reports feeling safe here. She reports less neck pain with lidocaine patch. She reports some tossing and turning at night. She is well groomed. No aggression towards self or others. Review of Systems Review of Systems Pt denies chest pain. Pt denies feeling dizzy Denies SOB Denies coughing No constipation or diarrhea Pt reports neck pain Yes all other systems are reviewed and are negative Mental Status Exam Mental Status Exam Narrative: Appearance: wearing hospital gown, fair hygiene, in NAD Behavior: cooperative Psychomotor: no agitation noted Speech: clear, normal rate/rhythm/volume, spontaneous TP: linear TC: no overt delusional content noted or reported, pt upset about being brought to hospital against her will Mood: okay Affect: congruent SI: denies HI: denies VH/AH: none Delusions: none Insight/judgment: poor x 2. in that she has no insight into how her behaviors affect others and her placement at [facility]. Memory/cog: pt alert, oriented to place, situation, month, date and year. Patient Appearance: Well Grooomed Patient Orientation: Person and Situation Level of Consciousness: Awake and Appropriate Patient Behavior: Guarded and Suspicious Mood Description: Withdrawn Affect Description: Blunted Patient Cognition Impaired: Yes Ability to Follow Directions: Poor Speech Pattern: Impoverished Diagnostics Vital Signs (24Hr): Vital Signs - 24 hr 01/12/23 08:46 01/12/23 18:00 Temperature 97.2 F 96.8 F Pulse Rate 86 70 Respiratory Rate 16 17 Blood Pressure 105/54 L 114/58 L Pulse Oximetry 98 96 Oxygen Delivery Method Room Air Room Air BMI result Body Mass Index 27.5 Labs 01/07/23 17:49 01/07/23 17:49 Labs: Laboratory Results - last 48 hr 01/11/23 01/11/23 01/11/23 07:51 11:14 16:37 POC Glucose 189 H 310 H 277 H 01/11/23 01/12/23 01/12/23 20:30 05:55 11:31 POC Glucose 328 H 205 H 372 H* 01/12/23 01/12/23 01/13/23 16:49 21:35 06:16 POC Glucose 209 H 260 H 244 H Medications Medications Current Medications Acetaminophen (Acetaminophen 325 Mg Tablet) 650 mg PO Q6H PRN PRN Reason: pain/fever Last Admin: 01/08/23 23:46 Dose: 650 mg Acetaminophen (Acetaminophen 325 Mg Tablet) 650 mg PO Q6H PRN PRN Reason: Headache/Pain Mild Scale (1-3) Al Hydroxide/Mg Hydroxide (Magnesium Hydrox/Alum Hydrox 30 Ml Oral.Susp) 30 ml PO Q6H PRN PRN Reason: Heartburn/Nausea Atorvastatin Calcium (Atorvastatin Calcium 20 Mg Tablet) 20 mg PO BEDTIME [facility] Last Admin: 01/12/23 21:36 Dose: 20 mg Bisacodyl (Bisacodyl 10 Mg Supp.Rect) 10 mg [place] DAILY PRN PRN Reason: Constipation Clopidogrel Bisulfate (Clopidogrel Bisulfate 75 Mg Tablet) 75 mg PO DAILY [facility] Last Admin: 01/12/23 08:48 Dose: 75 mg Divalproex Sodium (Divalproex Sodium 500 Mg Tablet.) 500 mg PO BEDTIME [facility] Last Admin: 01/12/23 21:37 Dose: 500 mg Divalproex Sodium (Divalproex Sodium 250 Mg Tablet.) 250 mg PO DAILY [facility] Last Admin: 01/12/23 08:48 Dose: 250 mg Donepezil HCl (Donepezil Hcl 10 Mg Tablet) 10 mg PO BEDTIME [facility] Last Admin: 01/12/23 21:37 Dose: 10 mg Escitalopram Oxalate (Escitalopram Oxalate 10 Mg Tablet) 10 mg PO DAILY [facility] Last Admin: 01/12/23 08:48 Dose: 10 mg Gabapentin (Gabapentin 600 Mg Tablet) 1,200 mg PO BEDTIME [facility] Last Admin: 01/12/23 21:37 Dose: 1,200 mg Glucagon (Glucagon Hcl 1 Mg Vial) 1 mg SUBCUT Q20M PRN PRN Reason: BG <70 AND UNRESPONSIVE Glucose (Glucose Gel 15 Gm Gel..Gram.) 15 gm PO Q15M PRN PRN Reason: BG <70 AND RESPONSIVE Insulin Glargine (Insulin Glargine,Hum.Rec.Anlog 100 Unit/Ml 10 Ml Vial) 44 unit SUBCUT BEDTIME [facility] Last Admin: 01/12/23 22:12 Dose: 44 unit Insulin Human Lispro (Insulin Lispro 100 Unit/Ml 3 Ml Vial) 0 unit SUBCUT QIDACHS [facility]; Protocol Last Admin: 01/12/23 22:08 Dose: 6 unit Levothyroxine Sodium (Levothyroxine Sodium 75 Mcg Tablet) 75 mcg PO DAILY@0630 [facility] Last Admin: 01/13/23 05:28 Dose: 75 mcg Lidocaine (Lidocaine 4 % Patch Adh..Patch) 1 patch TRANSDERMA DAILY [facility]; Protocol Last Admin: 01/12/23 08:47 Dose: 1 patch Loperamide HCl (Loperamide Hcl 2 Mg Capsule) 2 mg PO Q6H PRN PRN Reason: diarrhea Lorazepam (Lorazepam 0.5 Mg Tablet) 0.5 mg PO TID PRN PRN Reason: anxiety/restlessness Magnesium Hydroxide (Milk Of Magnesia 30 Ml Oral.Susp) 30 ml PO DAILY PRN PRN Reason: Constipation Magnesium Hydroxide (Milk Of Magnesia 30 Ml Oral.Susp) 30 ml PO DAILY PRN PRN Reason: Constipation Memantine (Memantine Hcl 10 Mg Tablet) 10 mg PO BID [facility] Last Admin: 01/12/23 21:37 Dose: 10 mg Metoprolol Tartrate (Metoprolol Tartrate 25 Mg Tablet) 25 mg PO DAILY [facility]; Protocol Last Admin: 01/12/23 08:48 Dose: 25 mg Quetiapine Fumarate (Quetiapine Fumarate 50 Mg Tablet) 50 mg PO Q6H PRN PRN Reason: agitation Last Admin: 01/08/23 23:46 Dose: 50 mg Risperidone (Risperidone 0.5 Mg Tablet) 0.5 mg PO BID [facility] Last Admin: 01/12/23 21:37 Dose: 0.5 mg Sodium Biphosphate/Sodium Phosphate (Sodium Phosphate,[place]-Dibasic 133 Ml Enema) 133 ml [place] DAILY PRN PRN Reason: Constipation Trazodone HCl (Trazodone Hcl 50 Mg Tablet) 50 mg PO BEDTIME MRX1 PRN PRN Reason: Insomnia Last Admin: 01/13/23 01:16 Dose: 50 mg Valsartan (Valsartan 80 Mg Tablet) 80 mg PO BEDTIME [facility]; Protocol Last Admin: 01/12/23 21:38 Dose: 80 mg Allergies Allergies Allergy/AdvReac Type Severity Reaction Status Date / Time aspirin [ASPIRIN] Allergy Unknown UNKNOWN Verified 01/01/23 09:43 Assessment & Plan Assessment & Plan (1) Major neurocognitive disorder: Status: Acute Code(s): F03.90 - Unspecified dementia, unspecified severity, without behavioral disturbance, psychotic disturbance, mood disturbance, and anxiety (2) Mood disorder: Status: Acute Code(s): F39 - Unspecified mood [affective] disorder Plan Ms. Landis is a 67 year-old woman with hx of Mood Disorder (untreated for most of her life) and neurocognitive disorder who was brought via EMS from [facility] due to increase verbal aggression towards roommate and one of their staff. Pt is known to this science writer through previous assessment for similar presentation. Pt presents as calmer, she does admit to being verbally abusive, although denies any intent to harm self or others. She does lack the insight into how her behaviors affect others and her relationships with others. This tendency to have difficulty seeing other people's need per daughter has been life long. Pt presents with tendency to be irritable, at times explosive but not physically aggressive. She was started back in September on low dose of seroquel but no further medication adjustments have been made to manage these symptoms, which are disruptive but not life threatening nor at imminent risk of harm to self or others. As consequence of minimal intervention in the community, pt has had more frequent ED visits here and at [facility]. We discussed risks, benefits and alternative treatment options, pt agrees to start mood stabilizer for impulsive, explosive behaviors. We also discussed switching seroquel to risperidone. Pt is orientation has been intact all along. PLAN 01/11 continue tx. 01/12 continue tx. may increase trazodone at bedtime for sleep Reason for continued inpatient stay Substantial Risk for: inability to function Time Spent With Patient Time: Total time managing care of this patient today ____ minutes.
[2023-01-13 08:02] VITALS: BP 118/67; PULSE 87; RESP 16; TEMP 36.1; O2SAT 96
[2023-01-13] MEDS: Escitalopram Oxalate 10 MG TABLET PO (08:47)
[2023-01-13] MEDS: Clopidogrel Bisulfate 75 MG TABLET PO (08:47)
[2023-01-13] MEDS: Metoprolol Tartrate 25 MG TABLET PO (08:47)
[2023-01-13] MEDS: Divalproex Sodium 250 MG TABLET.DR PO (08:47)
[2023-01-13] MEDS: Memantine HCl 10 MG TABLET PO ×2 (08:47→20:38)
[2023-01-13] MEDS: risperiDONE 0.5 MG TABLET PO ×2 (08:47→20:38)
[2023-01-13] MEDS: Insulin Lispro 100 UNIT/ML 3 ML VIAL SUBCUT ×4 (08:48→20:40)
[2023-01-13] MEDS: Lidocaine 4 % Patch ADH..PATCH 1 PATCH TRANSDERMA (08:49)
[2023-01-13 11:39] LABS: Glucose, Whole Blood 358 mg/dL (60-115)
--- NOTE | 2023-01-13 12:07 | PC.NURSE ---
POC 358 before lunch and Shae asymptomatic. Tanya Perez NP notified of blood sugar 358.
[2023-01-13 16:20] LABS: Glucose, Whole Blood 209 mg/dL (60-115)
[2023-01-13 18:00] VITALS: BP 128/59; PULSE 83; RESP 17; TEMP 36.7; O2SAT 97
[2023-01-13 20:38] LABS: Glucose, Whole Blood 290 mg/dL (60-115)
[2023-01-13] MEDS: Donepezil HCl 10 MG TABLET PO (20:38)
[2023-01-13] MEDS: Gabapentin 600 MG TABLET 1200 MG PO (20:38)
[2023-01-13] MEDS: Atorvastatin Calcium 20 MG TABLET PO (20:38)
[2023-01-13] MEDS: Divalproex Sodium 500 MG TABLET.DR PO (20:38)
[2023-01-13] MEDS: Valsartan 80 MG TABLET PO (20:38)
[2023-01-13] MEDS: Insulin Glargine,Hum.rec.anlog 100 UNIT/ML 10 ML VIAL 44 UNIT SUBCUT (20:39)
[2023-01-14] MEDS: Levothyroxine Sodium 75 MCG TABLET PO (06:16)
[2023-01-14 06:29] LABS: Glucose, Whole Blood 160 mg/dL (60-115)
[2023-01-14 08:09] VITALS: BP 111/64; PULSE 98; RESP 18; TEMP 35.9; O2SAT 96
[2023-01-14] MEDS: Divalproex Sodium 250 MG TABLET.DR PO (08:27)
[2023-01-14] MEDS: Metoprolol Tartrate 25 MG TABLET PO (08:27)
[2023-01-14] MEDS: risperiDONE 0.5 MG TABLET PO ×2 (08:27→20:06)
[2023-01-14] MEDS: Clopidogrel Bisulfate 75 MG TABLET PO (08:27)
[2023-01-14] MEDS: Memantine HCl 10 MG TABLET PO ×2 (08:28→20:07)
[2023-01-14] MEDS: Escitalopram Oxalate 10 MG TABLET PO (08:28)
[2023-01-14] MEDS: Insulin Lispro 100 UNIT/ML 3 ML VIAL SUBCUT ×3 (08:30→20:27)
[2023-01-14] MEDS: Lidocaine 4 % Patch ADH..PATCH 1 PATCH TRANSDERMA (08:33)
--- NOTE | 2023-01-14 08:37 | HO.PSYCHPN ---
Subjective Subjective Date of Service: 01/13/23 Reason For Visit: Depression Subjective Notes: Conditional Voluntary Interim History: Pt slept through the night. She reports she is doing well. She denies SI/HI. She reports feeling safe here. No aggression towards self or others. No signs of psychosis or delusions. Medication Compliance: Yes Review of Systems Review of Systems Pt denies chest pain. Pt denies feeling dizzy Denies SOB Denies coughing No constipation or diarrhea Pt reports neck pain Yes all other systems are reviewed and are negative Mental Status Exam Mental Status Exam Narrative: Appearance: wearing hospital gown, fair hygiene, in NAD Behavior: cooperative Psychomotor: no agitation noted Speech: clear, normal rate/rhythm/volume, spontaneous TP: linear TC: no overt delusional content noted or reported, pt upset about being brought to hospital against her will Mood: okay Affect: congruent SI: denies HI: denies VH/AH: none Delusions: none Insight/judgment: poor x 2. in that she has no insight into how her behaviors affect others and her placement at [facility]. Memory/cog: pt alert, oriented to place, situation, month, date and year. Diagnostics Vital Signs (24Hr): Vital Signs - 24 hr 01/13/23 18:00 01/14/23 08:09 Temperature 98.0 F 96.6 F L Pulse Rate 83 98 Respiratory Rate 17 18 Blood Pressure 128/59 L 111/64 Pulse Oximetry 97 96 Oxygen Delivery Method Room Air Room Air BMI result Body Mass Index 27.5 Labs 01/07/23 17:49 01/07/23 17:49 Labs: Laboratory Results - last 48 hr 01/12/23 01/12/23 01/12/23 11:31 16:49 21:35 POC Glucose 372 H* 209 H 260 H 01/13/23 01/13/23 01/13/23 06:16 11:36 16:13 POC Glucose 244 H 358 H* 209 H 01/13/23 01/14/23 20:23 06:14 POC Glucose 290 H 160 H Medications Medications Current Medications Acetaminophen (Acetaminophen 325 Mg Tablet) 650 mg PO Q6H PRN PRN Reason: pain/fever Last Admin: 01/08/23 23:46 Dose: 650 mg Acetaminophen (Acetaminophen 325 Mg Tablet) 650 mg PO Q6H PRN PRN Reason: Headache/Pain Mild Scale (1-3) Al Hydroxide/Mg Hydroxide (Magnesium Hydrox/Alum Hydrox 30 Ml Oral.Susp) 30 ml PO Q6H PRN PRN Reason: Heartburn/Nausea Atorvastatin Calcium (Atorvastatin Calcium 20 Mg Tablet) 20 mg PO BEDTIME [facility] Last Admin: 01/13/23 20:38 Dose: 20 mg Bisacodyl (Bisacodyl 10 Mg Supp.Rect) 10 mg AL DAILY PRN PRN Reason: Constipation Clopidogrel Bisulfate (Clopidogrel Bisulfate 75 Mg Tablet) 75 mg PO DAILY [facility] Last Admin: 01/14/23 08:27 Dose: 75 mg Divalproex Sodium (Divalproex Sodium 500 Mg Tablet.) 500 mg PO BEDTIME [facility] Last Admin: 01/13/23 20:38 Dose: 500 mg Divalproex Sodium (Divalproex Sodium 250 Mg Tablet.Dr) 250 mg PO DAILY [facility] Last Admin: 01/14/23 08:27 Dose: 250 mg Donepezil HCl (Donepezil Hcl 10 Mg Tablet) 10 mg PO BEDTIME [facility] Last Admin: 01/13/23 20:38 Dose: 10 mg Escitalopram Oxalate (Escitalopram Oxalate 10 Mg Tablet) 10 mg PO DAILY [facility] Last Admin: 01/14/23 08:28 Dose: 10 mg Gabapentin (Gabapentin 600 Mg Tablet) 1,200 mg PO BEDTIME [facility] Last Admin: 01/13/23 20:38 Dose: 1,200 mg Glucagon (Glucagon Hcl 1 Mg Vial) 1 mg SUBCUT Q20M PRN PRN Reason: BG <70 AND UNRESPONSIVE Glucose (Glucose Gel 15 Gm Gel..Gram.) 15 gm PO Q15M PRN PRN Reason: BG <70 AND RESPONSIVE Insulin Glargine (Insulin Glargine,Hum.Rec.Anlog 100 Unit/Ml 10 Ml Vial) 44 unit SUBCUT BEDTIME [facility] Last Admin: 01/13/23 20:39 Dose: 44 unit Insulin Human Lispro (Insulin Lispro 100 Unit/Ml 3 Ml Vial) 0 unit SUBCUT QIDACHS [facility]; Protocol Last Admin: 01/14/23 08:30 Dose: 2 unit Levothyroxine Sodium (Levothyroxine Sodium 75 Mcg Tablet) 75 mcg PO DAILY@0630 [facility] Last Admin: 01/14/23 06:16 Dose: 75 mcg Lidocaine (Lidocaine 4 % Patch Adh..Patch) 1 patch TRANSDERMA DAILY [facility]; Protocol Last Admin: 01/14/23 08:33 Dose: 1 patch Loperamide HCl (Loperamide Hcl 2 Mg Capsule) 2 mg PO Q6H PRN PRN Reason: diarrhea Lorazepam (Lorazepam 0.5 Mg Tablet) 0.5 mg PO TID PRN PRN Reason: anxiety/restlessness Magnesium Hydroxide (Milk Of Magnesia 30 Ml Oral.Susp) 30 ml PO DAILY PRN PRN Reason: Constipation Magnesium Hydroxide (Milk Of Magnesia 30 Ml Oral.Susp) 30 ml PO DAILY PRN PRN Reason: Constipation Memantine (Memantine Hcl 10 Mg Tablet) 10 mg PO BID [facility] Last Admin: 01/14/23 08:28 Dose: 10 mg Metoprolol Tartrate (Metoprolol Tartrate 25 Mg Tablet) 25 mg PO DAILY [facility]; Protocol Last Admin: 01/14/23 08:27 Dose: 25 mg Quetiapine Fumarate (Quetiapine Fumarate 50 Mg Tablet) 50 mg PO Q6H PRN PRN Reason: agitation Last Admin: 01/08/23 23:46 Dose: 50 mg Risperidone (Risperidone 0.5 Mg Tablet) 0.5 mg PO BID [facility] Last Admin: 01/14/23 08:27 Dose: 0.5 mg Sodium Biphosphate/Sodium Phosphate (Sodium Phosphate,[place]-Dibasic 133 Ml Enema) 133 ml AL DAILY PRN PRN Reason: Constipation Trazodone HCl (Trazodone Hcl 50 Mg Tablet) 50 mg PO BEDTIME MRX1 PRN PRN Reason: Insomnia Last Admin: 01/13/23 01:16 Dose: 50 mg Valsartan (Valsartan 80 Mg Tablet) 80 mg PO BEDTIME [facility]; Protocol Last Admin: 01/13/23 20:38 Dose: 80 mg Allergies Allergies Allergy/AdvReac Type Severity Reaction Status Date / Time aspirin [ASPIRIN] Allergy Unknown UNKNOWN Verified 01/01/23 09:43 Assessment & Plan Assessment & Plan (1) Major neurocognitive disorder: Status: Acute Code(s): F03.90 - Unspecified dementia, unspecified severity, without behavioral disturbance, psychotic disturbance, mood disturbance, and anxiety (2) Mood disorder: Status: Acute Code(s): F39 - Unspecified mood [affective] disorder Plan Ms. Landis is a 67 year-old woman with hx of Mood Disorder (untreated for most of her life) and neurocognitive disorder who was brought via EMS from [facility] due to increase verbal aggression towards roommate and one of their staff. Pt is known to this junior copywriter through previous assessment for similar presentation. Pt presents as calmer, she does admit to being verbally abusive, although denies any intent to harm self or others. She does lack the insight into how her behaviors affect others and her relationships with others. This tendency to have difficulty seeing other people's need per daughter has been life long. Pt presents with tendency to be irritable, at times explosive but not physically aggressive. She was started back in September on low dose of seroquel but no further medication adjustments have been made to manage these symptoms, which are disruptive but not life threatening nor at imminent risk of harm to self or others. As consequence of minimal intervention in the community, pt has had more frequent ED visits here and at [facility]. We discussed risks, benefits and alternative treatment options, pt agrees to start mood stabilizer for impulsive, explosive behaviors. We also discussed switching seroquel to risperidone. Pt is orientation has been intact all along. PLAN 01/11 continue tx. 01/12 continue tx. may increase trazodone at bedtime for sleep 01/13 continue tx. Reason for continued inpatient stay Substantial Risk for: inability to function Time Spent With Patient Time: Total time managing care of this patient today ____ minutes.
--- NOTE | 2023-01-14 08:42 | HO.PSYCHPN ---
Subjective Subjective Date of Service: 01/14/23 Reason For Visit: Depression Subjective Notes: Conditional Voluntary Healthcare Proxy: Yes Interim History: Pt reports feeling well other than having sore throat. She denies SI/HI. Pt sleeping and eating well. No s/s of aggression towards self or others. Pt visible on the unit, social with select peers. She is taking medications as prescribed. No side effects noted or reported. Medication Compliance: Yes Review of Systems Review of Systems Pt denies chest pain. Pt denies feeling dizzy Denies SOB Denies coughing No constipation or diarrhea Pt reports neck pain Yes all other systems are reviewed and are negative Mental Status Exam Mental Status Exam Narrative: Appearance: wearing hospital gown, fair hygiene, in NAD Behavior: cooperative Psychomotor: no agitation noted Speech: clear, normal rate/rhythm/volume, spontaneous TP: linear TC: no overt delusional content noted or reported, pt upset about being brought to hospital against her will Mood: okay Affect: congruent SI: denies HI: denies VH/AH: none Delusions: none Insight/judgment: poor x 2. in that she has no insight into how her behaviors affect others and her placement at [facility]. Memory/cog: pt alert, oriented to place, situation, month, date and year. Diagnostics Vital Signs (24Hr): Vital Signs - 24 hr 01/13/23 18:00 01/14/23 08:09 Temperature 98.0 F 96.6 F L Pulse Rate 83 98 Respiratory Rate 17 18 Blood Pressure 128/59 L 111/64 Pulse Oximetry 97 96 Oxygen Delivery Method Room Air Room Air BMI result Body Mass Index 27.5 Labs 01/07/23 17:49 01/07/23 17:49 Labs: Laboratory Results - last 48 hr 01/12/23 01/12/23 01/12/23 11:31 16:49 21:35 POC Glucose 372 H* 209 H 260 H 01/13/23 01/13/23 01/13/23 06:16 11:36 16:13 POC Glucose 244 H 358 H* 209 H 01/13/23 01/14/23 20:23 06:14 POC Glucose 290 H 160 H Medications Medications Current Medications Acetaminophen (Acetaminophen 325 Mg Tablet) 650 mg PO Q6H PRN PRN Reason: pain/fever Last Admin: 01/08/23 23:46 Dose: 650 mg Acetaminophen (Acetaminophen 325 Mg Tablet) 650 mg PO Q6H PRN PRN Reason: Headache/Pain Mild Scale (1-3) Al Hydroxide/Mg Hydroxide (Magnesium Hydrox/Alum Hydrox 30 Ml Oral.Susp) 30 ml PO Q6H PRN PRN Reason: Heartburn/Nausea Atorvastatin Calcium (Atorvastatin Calcium 20 Mg Tablet) 20 mg PO BEDTIME [facility] Last Admin: 01/13/23 20:38 Dose: 20 mg Bisacodyl (Bisacodyl 10 Mg Supp.Rect) 10 mg HI DAILY PRN PRN Reason: Constipation Clopidogrel Bisulfate (Clopidogrel Bisulfate 75 Mg Tablet) 75 mg PO DAILY [facility] Last Admin: 01/14/23 08:27 Dose: 75 mg Divalproex Sodium (Divalproex Sodium 500 Mg Tablet.) 500 mg PO BEDTIME [facility] Last Admin: 01/13/23 20:38 Dose: 500 mg Divalproex Sodium (Divalproex Sodium 250 Mg Tablet.) 250 mg PO DAILY [facility] Last Admin: 01/14/23 08:27 Dose: 250 mg Donepezil HCl (Donepezil Hcl 10 Mg Tablet) 10 mg PO BEDTIME [facility] Last Admin: 01/13/23 20:38 Dose: 10 mg Escitalopram Oxalate (Escitalopram Oxalate 10 Mg Tablet) 10 mg PO DAILY [facility] Last Admin: 01/14/23 08:28 Dose: 10 mg Gabapentin (Gabapentin 600 Mg Tablet) 1,200 mg PO BEDTIME [facility] Last Admin: 01/13/23 20:38 Dose: 1,200 mg Glucagon (Glucagon Hcl 1 Mg Vial) 1 mg SUBCUT Q20M PRN PRN Reason: BG <70 AND UNRESPONSIVE Glucose (Glucose Gel 15 Gm Gel..Gram.) 15 gm PO Q15M PRN PRN Reason: BG <70 AND RESPONSIVE Insulin Glargine (Insulin Glargine,Hum.Rec.Anlog 100 Unit/Ml 10 Ml Vial) 44 unit SUBCUT BEDTIME [facility] Last Admin: 01/13/23 20:39 Dose: 44 unit Insulin Human Lispro (Insulin Lispro 100 Unit/Ml 3 Ml Vial) 0 unit SUBCUT QIDACHS [facility]; Protocol Last Admin: 01/14/23 08:30 Dose: 2 unit Levothyroxine Sodium (Levothyroxine Sodium 75 Mcg Tablet) 75 mcg PO DAILY@0630 [facility] Last Admin: 01/14/23 06:16 Dose: 75 mcg Lidocaine (Lidocaine 4 % Patch Adh..Patch) 1 patch TRANSDERMA DAILY [facility]; Protocol Last Admin: 01/14/23 08:33 Dose: 1 patch Loperamide HCl (Loperamide Hcl 2 Mg Capsule) 2 mg PO Q6H PRN PRN Reason: diarrhea Lorazepam (Lorazepam 0.5 Mg Tablet) 0.5 mg PO TID PRN PRN Reason: anxiety/restlessness Magnesium Hydroxide (Milk Of Magnesia 30 Ml Oral.Susp) 30 ml PO DAILY PRN PRN Reason: Constipation Magnesium Hydroxide (Milk Of Magnesia 30 Ml Oral.Susp) 30 ml PO DAILY PRN PRN Reason: Constipation Memantine (Memantine Hcl 10 Mg Tablet) 10 mg PO BID [facility] Last Admin: 01/14/23 08:28 Dose: 10 mg Metoprolol Tartrate (Metoprolol Tartrate 25 Mg Tablet) 25 mg PO DAILY [facility]; Protocol Last Admin: 01/14/23 08:27 Dose: 25 mg Quetiapine Fumarate (Quetiapine Fumarate 50 Mg Tablet) 50 mg PO Q6H PRN PRN Reason: agitation Last Admin: 01/08/23 23:46 Dose: 50 mg Risperidone (Risperidone 0.5 Mg Tablet) 0.5 mg PO BID [facility] Last Admin: 01/14/23 08:27 Dose: 0.5 mg Sodium Biphosphate/Sodium Phosphate (Sodium Phosphate,[place]-Dibasic 133 Ml Enema) 133 ml HI DAILY PRN PRN Reason: Constipation Trazodone HCl (Trazodone Hcl 50 Mg Tablet) 50 mg PO BEDTIME MRX1 PRN PRN Reason: Insomnia Last Admin: 01/13/23 01:16 Dose: 50 mg Valsartan (Valsartan 80 Mg Tablet) 80 mg PO BEDTIME [facility]; Protocol Last Admin: 01/13/23 20:38 Dose: 80 mg Allergies Allergies Allergy/AdvReac Type Severity Reaction Status Date / Time aspirin [ASPIRIN] Allergy Unknown UNKNOWN Verified 01/01/23 09:43 Assessment & Plan Assessment & Plan (1) Major neurocognitive disorder: Status: Acute Code(s): F03.90 - Unspecified dementia, unspecified severity, without behavioral disturbance, psychotic disturbance, mood disturbance, and anxiety (2) Mood disorder: Status: Acute Code(s): F39 - Unspecified mood [affective] disorder Plan Ms. Landis is a 67 year-old woman with hx of Mood Disorder (untreated for most of her life) and neurocognitive disorder who was brought via EMS from [facility] due to increase verbal aggression towards roommate and one of their staff. Pt is known to this video games storywriter through previous assessment for similar presentation. Pt presents as calmer, she does admit to being verbally abusive, although denies any intent to harm self or others. She does lack the insight into how her behaviors affect others and her relationships with others. This tendency to have difficulty seeing other people's need per daughter has been life long. Pt presents with tendency to be irritable, at times explosive but not physically aggressive. She was started back in September on low dose of seroquel but no further medication adjustments have been made to manage these symptoms, which are disruptive but not life threatening nor at imminent risk of harm to self or others. As consequence of minimal intervention in the community, pt has had more frequent ED visits here and at [facility]. We discussed risks, benefits and alternative treatment options, pt agrees to start mood stabilizer for impulsive, explosive behaviors. We also discussed switching seroquel to risperidone. Pt is orientation has been intact all along. PLAN 01/11 continue tx. 01/12 continue tx. may increase trazodone at bedtime for sleep 01/13 continue tx. 01/14 continue tx. Reason for continued inpatient stay Substantial Risk for: inability to function Time Spent With Patient Time: Total time managing care of this patient today ____ minutes.
[2023-01-14 11:33] LABS: Glucose, Whole Blood 288 mg/dL (60-115)
[2023-01-14 16:41] LABS: Glucose, Whole Blood 149 mg/dL (60-115)
[2023-01-14 18:00] VITALS: BP 123/60; PULSE 71; RESP 17; TEMP 37; O2SAT 98
[2023-01-14] MEDS: Divalproex Sodium 500 MG TABLET.DR PO (20:06)
[2023-01-14] MEDS: traZODone HCL 50 MG TABLET PO (20:06)
[2023-01-14] MEDS: Atorvastatin Calcium 20 MG TABLET PO (20:06)
[2023-01-14] MEDS: Donepezil HCl 10 MG TABLET PO (20:07)
[2023-01-14] MEDS: Gabapentin 600 MG TABLET 1200 MG PO (20:07)
[2023-01-14] MEDS: Valsartan 80 MG TABLET PO (20:08)
[2023-01-14 20:09] LABS: COVID-19 Test Negative (Negative); IDNOW Serial# 08D9AD1C
[2023-01-14] MEDS: Insulin Glargine,Hum.rec.anlog 100 UNIT/ML 10 ML VIAL 44 UNIT SUBCUT (20:09)
[2023-01-14 20:23] LABS: Glucose, Whole Blood 241 mg/dL (60-115)
[2023-01-15] MEDS: Levothyroxine Sodium 75 MCG TABLET PO (05:48)
[2023-01-15 06:04] LABS: Glucose, Whole Blood 140 mg/dL (60-115)
[2023-01-15 08:34] VITALS: BP 123/55; PULSE 81; RESP 16; TEMP 36.7; O2SAT 93
[2023-01-15] MEDS: Clopidogrel Bisulfate 75 MG TABLET PO (08:40)
[2023-01-15] MEDS: risperiDONE 0.5 MG TABLET PO ×2 (08:40→21:08)
[2023-01-15] MEDS: Memantine HCl 10 MG TABLET PO ×2 (08:40→21:08)
[2023-01-15] MEDS: Metoprolol Tartrate 25 MG TABLET PO (08:40)
[2023-01-15] MEDS: Divalproex Sodium 250 MG TABLET.DR PO (08:40)
[2023-01-15] MEDS: Escitalopram Oxalate 10 MG TABLET PO (08:40)
[2023-01-15] MEDS: Lidocaine 4 % Patch ADH..PATCH 1 PATCH TRANSDERMA (10:08)
[2023-01-15] MEDS: Acetaminophen 325 MG TABLET 650 MG PO (10:11)
[2023-01-15 11:54] LABS: Glucose, Whole Blood 237 mg/dL (60-115)
[2023-01-15] MEDS: Insulin Lispro 100 UNIT/ML 3 ML VIAL SUBCUT ×2 (12:14→21:05)
[2023-01-15 16:41] LABS: Glucose, Whole Blood 172 mg/dL (60-115)
[2023-01-15 18:00] VITALS: BP 151/58; PULSE 75; RESP 16; TEMP 36.4; O2SAT 98
[2023-01-15 20:15] LABS: Glucose, Whole Blood 303 mg/dL (60-115)
--- NOTE | 2023-01-15 20:38 | HO.PSYCHPN ---
Subjective Subjective Date of Service: 01/15/23 Reason For Visit: Depression Subjective Notes: Conditional Voluntary Healthcare Proxy: Yes Interim History: Pt slept through the night. No behavioral concerns. Pt is pleasant on approach. She reports sore throat- covid test completed and is negative. afebrile. Takes medications as prescribed. Review of Systems Review of Systems Pt denies chest pain. Pt denies feeling dizzy Denies SOB Denies coughing No constipation or diarrhea Pt reports neck pain Yes all other systems are reviewed and are negative Mental Status Exam Mental Status Exam Narrative: Appearance: wearing hospital gown, fair hygiene, in NAD Behavior: cooperative Psychomotor: no agitation noted Speech: clear, normal rate/rhythm/volume, spontaneous TP: linear TC: no overt delusional content noted or reported, pt upset about being brought to hospital against her will Mood: okay Affect: congruent SI: denies HI: denies VH/AH: none Delusions: none Insight/judgment: poor x 2. in that she has no insight into how her behaviors affect others and [facility]. Memory/cog: pt alert, oriented to place, situation, month, date and year. Diagnostics Vital Signs (24Hr): Vital Signs - 24 hr 01/15/23 08:34 Temperature 98.0 F Pulse Rate 81 Respiratory Rate 16 Blood Pressure 123/55 L Pulse Oximetry 93 Oxygen Delivery Method Room Air BMI result Body Mass Index 27.5 Labs 01/07/23 17:49 01/07/23 17:49 Labs: Laboratory Results - last 48 hr 01/13/23 01/14/23 01/14/23 20:23 06:14 11:27 POC Glucose 290 H 160 H 288 H COVID-19 ([facility]) COVID-19 Clin Com 01/14/23 01/14/23 01/14/23 16:37 19:45 20:04 POC Glucose 149 H 241 H COVID-19 ([facility]) Negative COVID-19 Clin Com See Note 01/15/23 01/15/23 01/15/23 05:50 11:51 16:35 POC Glucose 140 H 237 H 172 H COVID-19 ([facility]) COVID-19 Clin Com 01/15/23 19:58 POC Glucose 303 H COVID-19 ([facility]) COVID-19 Clin Com Medications Medications Current Medications Acetaminophen (Acetaminophen 325 Mg Tablet) 650 mg PO Q6H PRN PRN Reason: pain/fever Last Admin: 01/15/23 10:11 Dose: 650 mg Acetaminophen (Acetaminophen 325 Mg Tablet) 650 mg PO Q6H PRN PRN Reason: Headache/Pain Mild Scale (1-3) Al Hydroxide/Mg Hydroxide (Magnesium Hydrox/Alum Hydrox 30 Ml Oral.Susp) 30 ml PO Q6H PRN PRN Reason: Heartburn/Nausea Atorvastatin Calcium (Atorvastatin Calcium 20 Mg Tablet) 20 mg PO BEDTIME [facility] Last Admin: 01/14/23 20:06 Dose: 20 mg Bisacodyl (Bisacodyl 10 Mg Supp.Rect) 10 mg CA DAILY PRN PRN Reason: Constipation Clopidogrel Bisulfate (Clopidogrel Bisulfate 75 Mg Tablet) 75 mg PO DAILY [facility] Last Admin: 01/15/23 08:40 Dose: 75 mg Divalproex Sodium (Divalproex Sodium 500 Mg Tablet.) 500 mg PO BEDTIME [facility] Last Admin: 01/14/23 20:06 Dose: 500 mg Divalproex Sodium (Divalproex Sodium 250 Mg Tablet.) 250 mg PO DAILY [facility] Last Admin: 01/15/23 08:40 Dose: 250 mg Donepezil HCl (Donepezil Hcl 10 Mg Tablet) 10 mg PO BEDTIME [facility] Last Admin: 01/14/23 20:07 Dose: 10 mg Escitalopram Oxalate (Escitalopram Oxalate 10 Mg Tablet) 10 mg PO DAILY [facility] Last Admin: 01/15/23 08:40 Dose: 10 mg Gabapentin (Gabapentin 600 Mg Tablet) 1,200 mg PO BEDTIME [facility] Last Admin: 01/14/23 20:07 Dose: 1,200 mg Glucagon (Glucagon Hcl 1 Mg Vial) 1 mg SUBCUT Q20M PRN PRN Reason: BG <70 AND UNRESPONSIVE Glucose (Glucose Gel 15 Gm Gel..Gram.) 15 gm PO Q15M PRN PRN Reason: BG <70 AND RESPONSIVE Insulin Glargine (Insulin Glargine,Hum.Rec.Anlog 100 Unit/Ml 10 Ml Vial) 44 unit SUBCUT BEDTIME [facility] Last Admin: 01/14/23 20:09 Dose: 44 unit Insulin Human Lispro (Insulin Lispro 100 Unit/Ml 3 Ml Vial) 0 unit SUBCUT QIDACHS [facility]; Protocol Last Admin: 01/15/23 17:52 Dose: Not Given Levothyroxine Sodium (Levothyroxine Sodium 75 Mcg Tablet) 75 mcg PO DAILY@0630 [facility] Last Admin: 01/15/23 05:48 Dose: 75 mcg Lidocaine (Lidocaine 4 % Patch Adh..Patch) 1 patch TRANSDERMA DAILY [facility]; Protocol Last Admin: 01/15/23 10:08 Dose: 1 patch Loperamide HCl (Loperamide Hcl 2 Mg Capsule) 2 mg PO Q6H PRN PRN Reason: diarrhea Lorazepam (Lorazepam 0.5 Mg Tablet) 0.5 mg PO TID PRN PRN Reason: anxiety/restlessness Magnesium Hydroxide (Milk Of Magnesia 30 Ml Oral.Susp) 30 ml PO DAILY PRN PRN Reason: Constipation Magnesium Hydroxide (Milk Of Magnesia 30 Ml Oral.Susp) 30 ml PO DAILY PRN PRN Reason: Constipation Memantine (Memantine Hcl 10 Mg Tablet) 10 mg PO BID [facility] Last Admin: 01/15/23 08:40 Dose: 10 mg Metoprolol Tartrate (Metoprolol Tartrate 25 Mg Tablet) 25 mg PO DAILY [facility]; Protocol Last Admin: 01/15/23 08:40 Dose: 25 mg Quetiapine Fumarate (Quetiapine Fumarate 50 Mg Tablet) 50 mg PO Q6H PRN PRN Reason: agitation Last Admin: 01/08/23 23:46 Dose: 50 mg Risperidone (Risperidone 0.5 Mg Tablet) 0.5 mg PO BID [facility] Last Admin: 01/15/23 08:40 Dose: 0.5 mg Sodium Biphosphate/Sodium Phosphate (Sodium Phosphate,[place]-Dibasic 133 Ml Enema) 133 ml CA DAILY PRN PRN Reason: Constipation Trazodone HCl (Trazodone Hcl 50 Mg Tablet) 50 mg PO BEDTIME MRX1 PRN PRN Reason: Insomnia Last Admin: 01/14/23 20:06 Dose: 50 mg Valsartan (Valsartan 80 Mg Tablet) 80 mg PO BEDTIME [facility]; Protocol Last Admin: 01/14/23 20:08 Dose: 80 mg Allergies Allergies Allergy/AdvReac Type Severity Reaction Status Date / Time aspirin [ASPIRIN] Allergy Unknown UNKNOWN Verified 01/01/23 09:43 Assessment & Plan Assessment & Plan (1) Major neurocognitive disorder: Status: Acute Code(s): F03.90 - Unspecified dementia, unspecified severity, without behavioral disturbance, psychotic disturbance, mood disturbance, and anxiety (2) Mood disorder: Status: Acute Code(s): F39 - Unspecified mood [affective] disorder Plan Ms. Landis is a 67 year-old woman with hx of Mood Disorder (untreated for most of her life) and neurocognitive disorder who was brought via EMS from [facility] due to increase verbal aggression towards roommate and one of their staff. Pt is known to this rewriter through previous assessment for similar presentation. Pt presents as calmer, she does admit to being verbally abusive, although denies any intent to harm self or others. She does lack the insight into how her behaviors affect others and her relationships with others. This tendency to have difficulty seeing other people's need per daughter has been life long. Pt presents with tendency to be irritable, at times explosive but not physically aggressive. She was started back in September on low dose of seroquel but no further medication adjustments have been made to manage these symptoms, which are disruptive but not life threatening nor at imminent risk of harm to self or others. As consequence of minimal intervention in the community, pt has had more frequent ED visits here and at [facility]. We discussed risks, benefits and alternative treatment options, pt agrees to start mood stabilizer for impulsive, explosive behaviors. We also discussed switching seroquel to risperidone. Pt is orientation has been intact all along. PLAN 01/11 continue tx. 01/12 continue tx. may increase trazodone at bedtime for sleep 01/13 continue tx. 01/14 continue tx. 01/15 continue tx. Reason for continued inpatient stay Substantial Risk for: inability to function Time Spent With Patient Time: Total time managing care of this patient today ____ minutes.
[2023-01-15] MEDS: Insulin Glargine,Hum.rec.anlog 100 UNIT/ML 10 ML VIAL 44 UNIT SUBCUT (21:00)
[2023-01-15] MEDS: Gabapentin 600 MG TABLET 1200 MG PO (21:07)
[2023-01-15] MEDS: Atorvastatin Calcium 20 MG TABLET PO (21:07)
[2023-01-15] MEDS: Divalproex Sodium 500 MG TABLET.DR PO (21:08)
[2023-01-15] MEDS: Valsartan 80 MG TABLET PO (21:08)
[2023-01-15] MEDS: Donepezil HCl 10 MG TABLET PO (21:08)
[2023-01-16 06:00] VITALS: BP 140/54; PULSE 80
[2023-01-16] MEDS: Levothyroxine Sodium 75 MCG TABLET PO (06:21)
[2023-01-16 06:26] LABS: Glucose, Whole Blood 135 mg/dL (60-115)
[2023-01-16] MEDS: Escitalopram Oxalate 10 MG TABLET PO (08:03)
[2023-01-16] MEDS: Divalproex Sodium 250 MG TABLET.DR PO (08:03)
[2023-01-16] MEDS: risperiDONE 0.5 MG TABLET PO ×2 (08:03→21:20)
[2023-01-16] MEDS: Metoprolol Tartrate 25 MG TABLET PO (08:03)
[2023-01-16] MEDS: Memantine HCl 10 MG TABLET PO ×2 (08:03→21:20)
[2023-01-16] MEDS: Clopidogrel Bisulfate 75 MG TABLET PO (08:03)
[2023-01-16 11:44] LABS: Glucose, Whole Blood 389 mg/dL (60-115)
[2023-01-16] MEDS: Insulin Lispro 100 UNIT/ML 3 ML VIAL SUBCUT ×2 (11:53→21:21)
--- NOTE | 2023-01-16 16:13 | HO.PSYCHPN ---
Subjective Subjective Date of Service: 01/16/23 Reason For Visit: Depression Interim History: Pt slept through the night. No behavioral concerns. Pt is pleasant on approach. She reports sore throat- covid test completed and is negative. afebrile. Takes medications as prescribed. Review of Systems Review of Systems Pt denies chest pain. Pt denies feeling dizzy Denies SOB Denies coughing No constipation or diarrhea Pt reports neck pain Yes all other systems are reviewed and are negative Mental Status Exam Mental Status Exam Narrative: Appearance: wearing hospital gown, fair hygiene, in NAD Behavior: cooperative Psychomotor: no agitation noted Speech: clear, normal rate/rhythm/volume, spontaneous TP: linear TC: no overt delusional content noted or reported, pt upset about being brought to hospital against her will Mood: okay Affect: congruent SI: denies HI: denies VH/AH: none Delusions: none Insight/judgment: poor x 2. in that she has no insight into how her behaviors affect others and her placement at [facility]. Memory/cog: pt alert, oriented to place, situation, month, date and year. Diagnostics Vital Signs (24Hr): Vital Signs - 24 hr 01/15/23 18:00 01/16/23 06:00 Temperature 97.6 F Pulse Rate 75 80 Respiratory Rate 16 Blood Pressure 151/58 H 140/54 H Pulse Oximetry 98 Oxygen Delivery Method Room Air BMI result Body Mass Index 27.5 Labs 01/07/23 17:49 01/07/23 17:49 Labs: Laboratory Results - last 48 hr 01/14/23 01/14/23 01/14/23 16:37 19:45 20:04 POC Glucose 149 H 241 H COVID-19 ([facility]) Negative COVID-19 Clin Com See Note 01/15/23 01/15/23 01/15/23 05:50 11:51 16:35 POC Glucose 140 H 237 H 172 H COVID-19 ([facility]) COVID-19 Clin Com 01/15/23 01/16/23 01/16/23 19:58 06:12 11:40 POC Glucose 303 H 135 H 389 H* COVID-19 ([facility]) COVID-19 Clin Com Medications Medications Current Medications Acetaminophen (Acetaminophen 325 Mg Tablet) 650 mg PO Q6H PRN PRN Reason: pain/fever Last Admin: 01/15/23 10:11 Dose: 650 mg Acetaminophen (Acetaminophen 325 Mg Tablet) 650 mg PO Q6H PRN PRN Reason: Headache/Pain Mild Scale (1-3) Al Hydroxide/Mg Hydroxide (Magnesium Hydrox/Alum Hydrox 30 Ml Oral.Susp) 30 ml PO Q6H PRN PRN Reason: Heartburn/Nausea Atorvastatin Calcium (Atorvastatin Calcium 20 Mg Tablet) 20 mg PO BEDTIME [facility] Last Admin: 01/15/23 21:07 Dose: 20 mg Bisacodyl (Bisacodyl 10 Mg Supp.Rect) 10 mg [place] DAILY PRN PRN Reason: Constipation Clopidogrel Bisulfate (Clopidogrel Bisulfate 75 Mg Tablet) 75 mg PO DAILY [facility] Last Admin: 01/16/23 08:03 Dose: 75 mg Divalproex Sodium (Divalproex Sodium 500 Mg Tablet.) 500 mg PO BEDTIME [facility] Last Admin: 01/15/23 21:08 Dose: 500 mg Divalproex Sodium (Divalproex Sodium 250 Mg Tablet.) 250 mg PO DAILY [facility] Last Admin: 01/16/23 08:03 Dose: 250 mg Donepezil HCl (Donepezil Hcl 10 Mg Tablet) 10 mg PO BEDTIME [facility] Last Admin: 01/15/23 21:08 Dose: 10 mg Escitalopram Oxalate (Escitalopram Oxalate 10 Mg Tablet) 10 mg PO DAILY [facility] Last Admin: 01/16/23 08:03 Dose: 10 mg Gabapentin (Gabapentin 600 Mg Tablet) 1,200 mg PO BEDTIME [facility] Last Admin: 01/15/23 21:07 Dose: 1,200 mg Glucagon (Glucagon Hcl 1 Mg Vial) 1 mg SUBCUT Q20M PRN PRN Reason: BG <70 AND UNRESPONSIVE Glucose (Glucose Gel 15 Gm Gel..Gram.) 15 gm PO Q15M PRN PRN Reason: BG <70 AND RESPONSIVE Insulin Glargine (Insulin Glargine,Hum.Rec.Anlog 100 Unit/Ml 10 Ml Vial) 44 unit SUBCUT BEDTIME [facility] Last Admin: 01/15/23 21:00 Dose: 44 unit Insulin Human Lispro (Insulin Lispro 100 Unit/Ml 3 Ml Vial) 0 unit SUBCUT QIDACHS [facility]; Protocol Last Admin: 01/16/23 11:53 Dose: 10 unit Levothyroxine Sodium (Levothyroxine Sodium 75 Mcg Tablet) 75 mcg PO DAILY@0630 [facility] Last Admin: 01/16/23 06:21 Dose: 75 mcg Lidocaine (Lidocaine 4 % Patch Adh..Patch) 1 patch TRANSDERMA DAILY [facility]; Protocol Last Admin: 01/16/23 11:38 Dose: Not Given Loperamide HCl (Loperamide Hcl 2 Mg Capsule) 2 mg PO Q6H PRN PRN Reason: diarrhea Lorazepam (Lorazepam 0.5 Mg Tablet) 0.5 mg PO TID PRN PRN Reason: anxiety/restlessness Magnesium Hydroxide (Milk Of Magnesia 30 Ml Oral.Susp) 30 ml PO DAILY PRN PRN Reason: Constipation Magnesium Hydroxide (Milk Of Magnesia 30 Ml Oral.Susp) 30 ml PO DAILY PRN PRN Reason: Constipation Memantine (Memantine Hcl 10 Mg Tablet) 10 mg PO BID [facility] Last Admin: 01/16/23 08:03 Dose: 10 mg Metoprolol Tartrate (Metoprolol Tartrate 25 Mg Tablet) 25 mg PO DAILY [facility]; Protocol Last Admin: 01/16/23 08:03 Dose: 25 mg Quetiapine Fumarate (Quetiapine Fumarate 50 Mg Tablet) 50 mg PO Q6H PRN PRN Reason: agitation Last Admin: 01/08/23 23:46 Dose: 50 mg Risperidone (Risperidone 0.5 Mg Tablet) 0.5 mg PO BID [facility] Last Admin: 01/16/23 08:03 Dose: 0.5 mg Sodium Biphosphate/Sodium Phosphate (Sodium Phosphate,[place]-Dibasic 133 Ml Enema) 133 ml IA DAILY PRN PRN Reason: Constipation Trazodone HCl (Trazodone Hcl 50 Mg Tablet) 50 mg PO BEDTIME MRX1 PRN PRN Reason: Insomnia Last Admin: 01/14/23 20:06 Dose: 50 mg Valsartan (Valsartan 80 Mg Tablet) 80 mg PO BEDTIME [facility]; Protocol Last Admin: 01/15/23 21:08 Dose: 80 mg Allergies Allergies Allergy/AdvReac Type Severity Reaction Status Date / Time aspirin [ASPIRIN] Allergy Unknown UNKNOWN Verified 01/01/23 09:43 Assessment & Plan Assessment & Plan (1) Major neurocognitive disorder: Status: Acute Code(s): F03.90 - Unspecified dementia, unspecified severity, without behavioral disturbance, psychotic disturbance, mood disturbance, and anxiety (2) Mood disorder: Status: Acute Code(s): F39 - Unspecified mood [affective] disorder Plan Ms. Landis is a 67 year-old woman with hx of Mood Disorder (untreated for most of her life) and neurocognitive disorder who was [facility] due to increase verbal aggression towards roommate and one of their staff. Pt is known to this comic writer through previous assessment for similar presentation. Pt presents as calmer, she does admit to being verbally abusive, although denies any intent to harm self or others. She does lack the insight into how her behaviors affect others and her relationships with others. This tendency to have difficulty seeing other people's need per daughter has been life long. Pt presents with tendency to be irritable, at times explosive but not physically aggressive. She was started back in September on low dose of seroquel but no further medication adjustments have been made to manage these symptoms, which are disruptive but not life threatening nor at imminent risk of harm to self or others. As consequence of minimal intervention in the community, pt has had more frequent ED visits here and at [facility]. We discussed risks, benefits and alternative treatment options, pt agrees to start mood stabilizer for impulsive, explosive behaviors. We also discussed switching seroquel to risperidone. Pt is orientation has been intact all along. PLAN 01/11 continue tx. 01/12 continue tx. may increase trazodone at bedtime for sleep 01/13 continue tx. 01/14 continue tx. 01/15 continue tx. 01/16 continue tx. Reason for continued inpatient stay Substantial Risk for: inability to function Time Spent With Patient Time: Total time managing care of this patient today ____ minutes.
[2023-01-16 16:32] LABS: Glucose, Whole Blood 130 mg/dL (60-115)
[2023-01-16 17:00] VITALS: BMI 27.6
[2023-01-16 18:00] VITALS: BP 155/65; PULSE 74; RESP 16; TEMP 36.2; O2SAT 96
[2023-01-16 21:09] LABS: Glucose, Whole Blood 237 mg/dL (60-115)
[2023-01-16] MEDS: Insulin Glargine,Hum.rec.anlog 100 UNIT/ML 10 ML VIAL 44 UNIT SUBCUT (21:16)
[2023-01-16] MEDS: Gabapentin 600 MG TABLET 1200 MG PO (21:19)
[2023-01-16] MEDS: Valsartan 80 MG TABLET PO (21:19)
[2023-01-16] MEDS: Donepezil HCl 10 MG TABLET PO (21:20)
[2023-01-16] MEDS: Atorvastatin Calcium 20 MG TABLET PO (21:20)
[2023-01-16] MEDS: Divalproex Sodium 500 MG TABLET.DR PO (21:20)
[2023-01-17] MEDS: Loperamide HCl 2 MG CAPSULE PO (03:35)
[2023-01-17] MEDS: LORazepam 0.5 MG TABLET PO (03:36)
[2023-01-17] MEDS: Levothyroxine Sodium 75 MCG TABLET PO (06:15)
[2023-01-17 06:19] LABS: Glucose, Whole Blood 123 mg/dL (60-115)
[2023-01-17 08:30] VITALS: BP 128/66; PULSE 70; RESP 16; TEMP 36.4; O2SAT 99
[2023-01-17] MEDS: Divalproex Sodium 250 MG TABLET.DR PO (08:35)
[2023-01-17] MEDS: Memantine HCl 10 MG TABLET PO ×2 (08:35→21:26)
[2023-01-17] MEDS: Metoprolol Tartrate 25 MG TABLET PO (08:35)
[2023-01-17] MEDS: Clopidogrel Bisulfate 75 MG TABLET PO (08:35)
[2023-01-17] MEDS: Escitalopram Oxalate 10 MG TABLET PO (08:35)
[2023-01-17] MEDS: risperiDONE 0.5 MG TABLET PO ×2 (08:35→21:26)
[2023-01-17] MEDS: Lidocaine 4 % Patch ADH..PATCH 1 PATCH TRANSDERMA (09:21)
[2023-01-17 11:43] LABS: Glucose, Whole Blood 248 mg/dL (60-115)
[2023-01-17] MEDS: Insulin Lispro 100 UNIT/ML 3 ML VIAL SUBCUT ×3 (12:00→21:25)
--- NOTE | 2023-01-17 15:34 | HO.PSYCHPN ---
Subjective Subjective Date of Service: 01/17/23 Reason For Visit: Depression Subjective Notes: Conditional Voluntary Interim History: Pt slept through the night. No behavioral concerns. Pt is pleasant on approach. She denies SI/HI. No signs of psychosis or delusions. She is visible on the unit, social with select peers. afebrile. Takes medications as prescribed. Review of Systems Review of Systems Pt denies chest pain. Pt denies feeling dizzy Denies SOB Denies coughing No constipation or diarrhea Pt reports neck pain Yes all other systems are reviewed and are negative Mental Status Exam Mental Status Exam Narrative: Appearance: wearing hospital gown, fair hygiene, in NAD Behavior: cooperative Psychomotor: no agitation noted Speech: clear, normal rate/rhythm/volume, spontaneous TP: linear TC: no overt delusional content noted or reported, pt upset about being brought to hospital against her will Mood: okay Affect: congruent SI: denies HI: denies VH/AH: none Delusions: none Insight/judgment: poor x 2. in that she has no insight into how her behaviors affect others and her placement at [facility]. Memory/cog: pt alert, oriented to place, situation, month, date and year. Diagnostics Vital Signs (24Hr): Vital Signs - 24 hr 01/16/23 18:00 01/17/23 08:30 Temperature 97.2 F 97.6 F Pulse Rate 74 70 Respiratory Rate 16 16 Blood Pressure 155/65 H 128/66 Pulse Oximetry 96 99 Oxygen Delivery Method Room Air Room Air BMI result Body Mass Index 27.6 Labs 01/07/23 17:49 01/07/23 17:49 Labs: Laboratory Results - last 48 hr 01/15/23 01/15/23 01/16/23 16:35 19:58 06:12 POC Glucose 172 H 303 H 135 H 01/16/23 01/16/23 01/16/23 11:40 16:27 21:02 POC Glucose 389 H* 130 H 237 H 01/17/23 01/17/23 06:11 11:39 POC Glucose 123 H 248 H Medications Medications Current Medications Acetaminophen (Acetaminophen 325 Mg Tablet) 650 mg PO Q6H PRN PRN Reason: pain/fever Last Admin: 01/15/23 10:11 Dose: 650 mg Acetaminophen (Acetaminophen 325 Mg Tablet) 650 mg PO Q6H PRN PRN Reason: Headache/Pain Mild Scale (1-3) Al Hydroxide/Mg Hydroxide (Magnesium Hydrox/Alum Hydrox 30 Ml Oral.Susp) 30 ml PO Q6H PRN PRN Reason: Heartburn/Nausea Atorvastatin Calcium (Atorvastatin Calcium 20 Mg Tablet) 20 mg PO BEDTIME [facility] Last Admin: 01/16/23 21:20 Dose: 20 mg Bisacodyl (Bisacodyl 10 Mg Supp.Rect) 10 mg [place] DAILY PRN PRN Reason: Constipation Clopidogrel Bisulfate (Clopidogrel Bisulfate 75 Mg Tablet) 75 mg PO DAILY [facility] Last Admin: 01/17/23 08:35 Dose: 75 mg Divalproex Sodium (Divalproex Sodium 500 Mg Tablet.) 500 mg PO BEDTIME [facility] Last Admin: 01/16/23 21:20 Dose: 500 mg Divalproex Sodium (Divalproex Sodium 250 Mg Tablet.) 250 mg PO DAILY [facility] Last Admin: 01/17/23 08:35 Dose: 250 mg Donepezil HCl (Donepezil Hcl 10 Mg Tablet) 10 mg PO BEDTIME [facility] Last Admin: 01/16/23 21:20 Dose: 10 mg Escitalopram Oxalate (Escitalopram Oxalate 10 Mg Tablet) 10 mg PO DAILY [facility] Last Admin: 01/17/23 08:35 Dose: 10 mg Gabapentin (Gabapentin 600 Mg Tablet) 1,200 mg PO BEDTIME [facility] Last Admin: 01/16/23 21:19 Dose: 1,200 mg Glucagon (Glucagon Hcl 1 Mg Vial) 1 mg SUBCUT Q20M PRN PRN Reason: BG <70 AND UNRESPONSIVE Glucose (Glucose Gel 15 Gm Gel..Gram.) 15 gm PO Q15M PRN PRN Reason: BG <70 AND RESPONSIVE Insulin Glargine (Insulin Glargine,Hum.Rec.Anlog 100 Unit/Ml 10 Ml Vial) 44 unit SUBCUT BEDTIME [facility] Last Admin: 01/16/23 21:16 Dose: 44 unit Insulin Human Lispro (Insulin Lispro 100 Unit/Ml 3 Ml Vial) 0 unit SUBCUT QIDACHS [facility]; Protocol Last Admin: 01/17/23 12:00 Dose: 4 unit Levothyroxine Sodium (Levothyroxine Sodium 75 Mcg Tablet) 75 mcg PO DAILY@0630 [facility] Last Admin: 01/17/23 06:15 Dose: 75 mcg Lidocaine (Lidocaine 4 % Patch Adh..Patch) 1 patch TRANSDERMA DAILY [facility]; Protocol Last Admin: 01/17/23 09:21 Dose: 1 patch Loperamide HCl (Loperamide Hcl 2 Mg Capsule) 2 mg PO Q6H PRN PRN Reason: diarrhea Last Admin: 01/17/23 03:35 Dose: 2 mg Lorazepam (Lorazepam 0.5 Mg Tablet) 0.5 mg PO TID PRN PRN Reason: anxiety/restlessness Last Admin: 01/17/23 03:36 Dose: 0.5 mg Magnesium Hydroxide (Milk Of Magnesia 30 Ml Oral.Susp) 30 ml PO DAILY PRN PRN Reason: Constipation Magnesium Hydroxide (Milk Of Magnesia 30 Ml Oral.Susp) 30 ml PO DAILY PRN PRN Reason: Constipation Memantine (Memantine Hcl 10 Mg Tablet) 10 mg PO BID [facility] Last Admin: 01/17/23 08:35 Dose: 10 mg Metoprolol Tartrate (Metoprolol Tartrate 25 Mg Tablet) 25 mg PO DAILY [facility]; Protocol Last Admin: 01/17/23 08:35 Dose: 25 mg Quetiapine Fumarate (Quetiapine Fumarate 50 Mg Tablet) 50 mg PO Q6H PRN PRN Reason: agitation Last Admin: 01/08/23 23:46 Dose: 50 mg Risperidone (Risperidone 0.5 Mg Tablet) 0.5 mg PO BID [facility] Last Admin: 01/17/23 08:35 Dose: 0.5 mg Sodium Biphosphate/Sodium Phosphate (Sodium Phosphate,[place]-Dibasic 133 Ml Enema) 133 ml [place] DAILY PRN PRN Reason: Constipation Trazodone HCl (Trazodone Hcl 50 Mg Tablet) 50 mg PO BEDTIME MRX1 PRN PRN Reason: Insomnia Last Admin: 01/14/23 20:06 Dose: 50 mg Valsartan (Valsartan 80 Mg Tablet) 80 mg PO BEDTIME [facility]; Protocol Last Admin: 01/16/23 21:19 Dose: 80 mg Allergies Allergies Allergy/AdvReac Type Severity Reaction Status Date / Time aspirin [ASPIRIN] Allergy Unknown UNKNOWN Verified 01/01/23 09:43 Assessment & Plan Assessment & Plan (1) Major neurocognitive disorder: Status: Acute Code(s): F03.90 - Unspecified dementia, unspecified severity, without behavioral disturbance, psychotic disturbance, mood disturbance, and anxiety (2) Mood disorder: Status: Acute Code(s): F39 - Unspecified mood [affective] disorder Plan Ms. Landis is a 67 year-old woman with hx of Mood Disorder (untreated for most of her life) and neurocognitive disorder who [facility] due to increase verbal aggression towards roommate and one of their staff. Pt is known to this conventional mortgage underwriter through previous assessment for similar presentation. Pt presents as calmer, she does admit to being verbally abusive, although denies any intent to harm self or others. She does lack the insight into how her behaviors affect others and her relationships with others. This tendency to have difficulty seeing other people's need per daughter has been life long. Pt presents with tendency to be irritable, at times explosive but not physically aggressive. She was started back in September on low dose of seroquel but no further medication adjustments have been made to manage these symptoms, which are disruptive but not life threatening nor at imminent risk of harm to self or others. As consequence of minimal intervention in the community, pt has had more frequent ED visits here and at [facility]. We discussed risks, benefits and alternative treatment options, pt agrees to start mood stabilizer for impulsive, explosive behaviors. We also discussed switching seroquel to risperidone. Pt is orientation has been intact all along. PLAN 01/17 continue tx. Reason for continued inpatient stay Substantial Risk for: inability to function Time Spent With Patient Time: Total time managing care of this patient today ____ minutes.
[2023-01-17 16:28] LABS: Glucose, Whole Blood 321 mg/dL (60-115)
[2023-01-17 18:00] VITALS: BP 129/58; PULSE 73; RESP 16; TEMP 36.2; O2SAT 96
[2023-01-17 20:24] LABS: Glucose, Whole Blood 207 mg/dL (60-115)
[2023-01-17] MEDS: Insulin Glargine,Hum.rec.anlog 100 UNIT/ML 10 ML VIAL 44 UNIT SUBCUT (21:25)
[2023-01-17] MEDS: Gabapentin 600 MG TABLET 1200 MG PO (21:26)
[2023-01-17] MEDS: Atorvastatin Calcium 20 MG TABLET PO (21:26)
[2023-01-17] MEDS: Valsartan 80 MG TABLET PO (21:26)
[2023-01-17] MEDS: Donepezil HCl 10 MG TABLET PO (21:26)
[2023-01-17] MEDS: Divalproex Sodium 500 MG TABLET.DR PO (21:26)
[2023-01-18] MEDS: Levothyroxine Sodium 75 MCG TABLET PO (06:03)
[2023-01-18 06:19] LABS: Glucose, Whole Blood 213 mg/dL (60-115)
--- NOTE | 2023-01-18 07:47 | HO.PSYCHPN ---
Subjective Subjective Date of Service: 01/18/23 Reason For Visit: Depression Subjective Notes: Conditional Voluntary Interim History: The nursing staff reported the patient had been medication and meal compliant. She is on is [place]-speaking and communication to billing difficult. She woke up early this morning at 05:00 o'clock in the morning with went back to bed. His fasting blood sugars were around 200. On interview the patient is pleasantly confused, easily redirectable. Denies new symptoms. Mental Status Exam Mental Status Exam Patient Appearance: Appropriate Patient Orientation: Person and Situation Level of Consciousness: Awake Patient Behavior: Guarded and Passive Mood Description: Withdrawn Affect Description: Constricted Patient Cognition Impaired: Yes Ability to Follow Directions: Good Speech Pattern: Clear Hallucinations: None Delusions: Paranoid Ideation and Ideas of Reference Thought Process: Distracted and Slowed Thinking Thought Content: positive for [place] and positive for Poverty of Content Judgement: Poor Diagnostics Vital Signs (24Hr): Vital Signs - 24 hr 01/17/23 08:30 01/17/23 18:00 Temperature 97.6 F 97.2 F Pulse Rate 70 73 Respiratory Rate 16 16 Blood Pressure 128/66 129/58 L Pulse Oximetry 99 96 Oxygen Delivery Method Room Air Room Air BMI result Body Mass Index 27.6 Labs 01/07/23 17:49 01/07/23 17:49 Labs: Laboratory Results - last 48 hr 01/16/23 01/16/23 01/16/23 11:40 16:27 21:02 POC Glucose 389 H* 130 H 237 H 01/17/23 01/17/23 01/17/23 06:11 11:39 16:24 POC Glucose 123 H 248 H 321 H 01/17/23 01/18/23 20:20 06:04 POC Glucose 207 H 213 H Medications Medications Current Medications Acetaminophen (Acetaminophen 325 Mg Tablet) 650 mg PO Q6H PRN PRN Reason: pain/fever Last Admin: 01/15/23 10:11 Dose: 650 mg Acetaminophen (Acetaminophen 325 Mg Tablet) 650 mg PO Q6H PRN PRN Reason: Headache/Pain Mild Scale (1-3) Al Hydroxide/Mg Hydroxide (Magnesium Hydrox/Alum Hydrox 30 Ml Oral.Susp) 30 ml PO Q6H PRN PRN Reason: Heartburn/Nausea Atorvastatin Calcium (Atorvastatin Calcium 20 Mg Tablet) 20 mg PO BEDTIME [facility] Last Admin: 01/17/23 21:26 Dose: 20 mg Bisacodyl (Bisacodyl 10 Mg Supp.Rect) 10 mg [place] DAILY PRN PRN Reason: Constipation Clopidogrel Bisulfate (Clopidogrel Bisulfate 75 Mg Tablet) 75 mg PO DAILY [facility] Last Admin: 01/17/23 08:35 Dose: 75 mg Divalproex Sodium (Divalproex Sodium 500 Mg Tablet.) 500 mg PO BEDTIME [facility] Last Admin: 01/17/23 21:26 Dose: 500 mg Divalproex Sodium (Divalproex Sodium 250 Mg Tablet.) 250 mg PO DAILY [facility] Last Admin: 01/17/23 08:35 Dose: 250 mg Donepezil HCl (Donepezil Hcl 10 Mg Tablet) 10 mg PO BEDTIME [facility] Last Admin: 01/17/23 21:26 Dose: 10 mg Escitalopram Oxalate (Escitalopram Oxalate 10 Mg Tablet) 10 mg PO DAILY [facility] Last Admin: 01/17/23 08:35 Dose: 10 mg Gabapentin (Gabapentin 600 Mg Tablet) 1,200 mg PO BEDTIME [facility] Last Admin: 01/17/23 21:26 Dose: 1,200 mg Glucagon (Glucagon Hcl 1 Mg Vial) 1 mg SUBCUT Q20M PRN PRN Reason: BG <70 AND UNRESPONSIVE Glucose (Glucose Gel 15 Gm Gel..Gram.) 15 gm PO Q15M PRN PRN Reason: BG <70 AND RESPONSIVE Insulin Glargine (Insulin Glargine,Hum.Rec.Anlog 100 Unit/Ml 10 Ml Vial) 44 unit SUBCUT BEDTIME [facility] Last Admin: 01/17/23 21:25 Dose: 44 unit Insulin Human Lispro (Insulin Lispro 100 Unit/Ml 3 Ml Vial) 0 unit SUBCUT QIDACHS [facility]; Protocol Last Admin: 01/17/23 21:25 Dose: 4 unit Levothyroxine Sodium (Levothyroxine Sodium 75 Mcg Tablet) 75 mcg PO DAILY@0630 [facility] Last Admin: 01/18/23 06:03 Dose: 75 mcg Lidocaine (Lidocaine 4 % Patch Adh..Patch) 1 patch TRANSDERMA DAILY [facility]; Protocol Last Admin: 01/17/23 09:21 Dose: 1 patch Loperamide HCl (Loperamide Hcl 2 Mg Capsule) 2 mg PO Q6H PRN PRN Reason: diarrhea Last Admin: 01/17/23 03:35 Dose: 2 mg Lorazepam (Lorazepam 0.5 Mg Tablet) 0.5 mg PO TID PRN PRN Reason: anxiety/restlessness Last Admin: 01/17/23 03:36 Dose: 0.5 mg Magnesium Hydroxide (Milk Of Magnesia 30 Ml Oral.Susp) 30 ml PO DAILY PRN PRN Reason: Constipation Magnesium Hydroxide (Milk Of Magnesia 30 Ml Oral.Susp) 30 ml PO DAILY PRN PRN Reason: Constipation Memantine (Memantine Hcl 10 Mg Tablet) 10 mg PO BID [facility] Last Admin: 01/17/23 21:26 Dose: 10 mg Metoprolol Tartrate (Metoprolol Tartrate 25 Mg Tablet) 25 mg PO DAILY [facility]; Protocol Last Admin: 01/17/23 08:35 Dose: 25 mg Quetiapine Fumarate (Quetiapine Fumarate 50 Mg Tablet) 50 mg PO Q6H PRN PRN Reason: agitation Last Admin: 01/08/23 23:46 Dose: 50 mg Risperidone (Risperidone 0.5 Mg Tablet) 0.5 mg PO BID [facility] Last Admin: 01/17/23 21:26 Dose: 0.5 mg Sodium Biphosphate/Sodium Phosphate (Sodium Phosphate,[place]-Dibasic 133 Ml Enema) 133 ml [place] DAILY PRN PRN Reason: Constipation Trazodone HCl (Trazodone Hcl 50 Mg Tablet) 50 mg PO BEDTIME MRX1 PRN PRN Reason: Insomnia Last Admin: 01/14/23 20:06 Dose: 50 mg Valsartan (Valsartan 80 Mg Tablet) 80 mg PO BEDTIME [facility]; Protocol Last Admin: 01/17/23 21:26 Dose: 80 mg Allergies Allergies Allergy/AdvReac Type Severity Reaction Status Date / Time aspirin [ASPIRIN] Allergy Unknown UNKNOWN Verified 01/01/23 09:43 Assessment & Plan Assessment & Plan (1) Major neurocognitive disorder: Status: Acute Code(s): F03.90 - Unspecified dementia, unspecified severity, without behavioral disturbance, psychotic disturbance, mood disturbance, and anxiety (2) Mood disorder: Status: Acute Code(s): F39 - Unspecified mood [affective] disorder Plan Ms. Landis is a 67 year-old woman with hx of Mood Disorder (untreated for most of her life) and neurocognitive disorder who was brought via EMS from [facility] due to increase verbal aggression towards roommate and one of their staff. Pt is known to this insurance underwriter sales through previous assessment for similar presentation. Pt presents as calmer, she does admit to being verbally abusive, although denies any intent to harm self or others. She does lack the insight into how her behaviors affect others and her relationships with others. This tendency to have difficulty seeing other people's need per daughter has been life long. Pt presents with tendency to be irritable, at times explosive but not physically aggressive. She was started back in September on low dose of seroquel but no further medication adjustments have been made to manage these symptoms, which are disruptive but not life threatening nor at imminent risk of harm to self or others. As consequence of minimal intervention in the community, pt has had more frequent ED visits here and at [facility]. We discussed risks, benefits and alternative treatment options, pt agrees to start mood stabilizer for impulsive, explosive behaviors. We also discussed switching seroquel to risperidone. Pt is orientation has been intact all along. PLAN 1. Gather collateral information. 2. Continue with antipsychotics and mood stabilizers. 3. Reassessment with results. Reason for continued inpatient stay Substantial Risk for: inability to function, rapid decompensation and med/psych decompensation Time Spent With Patient Time: Total time managing care of this patient today __20__ minutes.
[2023-01-18 08:00] VITALS: BP 123/63; PULSE 76; RESP 18; TEMP 36.4; O2SAT 96
[2023-01-18] MEDS: Divalproex Sodium 250 MG TABLET.DR PO (08:11)
[2023-01-18] MEDS: Memantine HCl 10 MG TABLET PO ×2 (08:11→21:40)
[2023-01-18] MEDS: Metoprolol Tartrate 25 MG TABLET PO (08:11)
[2023-01-18] MEDS: risperiDONE 0.5 MG TABLET PO ×2 (08:11→21:40)
[2023-01-18] MEDS: Escitalopram Oxalate 10 MG TABLET PO (08:11)
[2023-01-18] MEDS: Clopidogrel Bisulfate 75 MG TABLET PO (08:11)
[2023-01-18] MEDS: Lidocaine 4 % Patch ADH..PATCH 1 PATCH TRANSDERMA (08:12)
[2023-01-18] MEDS: Insulin Lispro 100 UNIT/ML 3 ML VIAL SUBCUT ×4 (08:49→21:40)
[2023-01-18 11:44] LABS: Glucose, Whole Blood 259 mg/dL (60-115)
[2023-01-18 16:31] LABS: Glucose, Whole Blood 227 mg/dL (60-115)
[2023-01-18 18:00] VITALS: BP 125/71; PULSE 71; RESP 18; TEMP 36.2; O2SAT 96
[2023-01-18 20:06] LABS: Glucose, Whole Blood 241 mg/dL (60-115)
[2023-01-18] MEDS: Gabapentin 600 MG TABLET 1200 MG PO (21:39)
[2023-01-18] MEDS: Atorvastatin Calcium 20 MG TABLET PO (21:39)
[2023-01-18] MEDS: Insulin Glargine,Hum.rec.anlog 100 UNIT/ML 10 ML VIAL 44 UNIT SUBCUT (21:40)
[2023-01-18] MEDS: Divalproex Sodium 500 MG TABLET.DR PO (21:40)
[2023-01-18] MEDS: Donepezil HCl 10 MG TABLET PO (21:40)
[2023-01-18] MEDS: Valsartan 80 MG TABLET PO (21:40)
[2023-01-19] MEDS: Levothyroxine Sodium 75 MCG TABLET PO (05:27)
[2023-01-19 05:31] LABS: Glucose, Whole Blood 88 mg/dL (60-115)
[2023-01-19 07:55] VITALS: BP 142/74; PULSE 81; RESP 18; TEMP 36.8; O2SAT 98
[2023-01-19] MEDS: Memantine HCl 10 MG TABLET PO ×2 (08:02→20:38)
[2023-01-19] MEDS: Metoprolol Tartrate 25 MG TABLET PO (08:02)
[2023-01-19] MEDS: Escitalopram Oxalate 10 MG TABLET PO (08:02)
[2023-01-19] MEDS: risperiDONE 0.5 MG TABLET PO ×2 (08:02→20:38)
[2023-01-19] MEDS: Lidocaine 4 % Patch ADH..PATCH 1 PATCH TRANSDERMA (08:02)
[2023-01-19] MEDS: Clopidogrel Bisulfate 75 MG TABLET PO (08:02)
[2023-01-19] MEDS: Divalproex Sodium 250 MG TABLET.DR PO (08:02)
--- NOTE | 2023-01-19 08:45 | HO.PSYCHPN ---
Subjective Subjective Date of Service: 01/19/23 Reason For Visit: Depression Subjective Notes: Conditional Voluntary Interim History: The nursing staff reported the patient has been alert oriented x2 pleasant on approach compliant with her medications. In the afternoon she had been more isolative. She woke up a very early today she slept 7 hours. On interview the patient denies new symptoms. Mental Status Exam Mental Status Exam Patient Appearance: Appropriate Patient Orientation: Person and Situation Level of Consciousness: Awake and Appropriate Patient Behavior: Guarded and Passive Mood Description: Withdrawn Affect Description: Constricted Patient Cognition Impaired: Yes Ability to Follow Directions: Fair Speech Pattern: Clear Hallucinations: None Delusions: Not Present Thought Process: Distracted Thought Content: positive for Circle and positive for Poverty of Content Judgement: Fair Diagnostics Vital Signs (24Hr): Vital Signs - 24 hr 01/18/23 18:00 Temperature 97.1 F Pulse Rate 71 Respiratory Rate 18 Blood Pressure 125/71 Pulse Oximetry 96 Oxygen Delivery Method Room Air BMI result Body Mass Index 27.6 Labs 01/07/23 17:49 01/07/23 17:49 Labs: Laboratory Results - last 48 hr 01/17/23 01/17/23 01/17/23 11:39 16:24 20:20 POC Glucose 248 H 321 H 207 H 01/18/23 01/18/23 01/18/23 06:04 11:40 16:28 POC Glucose 213 H 259 H 227 H 01/18/23 01/19/23 19:44 05:26 POC Glucose 241 H 88 Medications Medications Current Medications Acetaminophen (Acetaminophen 325 Mg Tablet) 650 mg PO Q6H PRN PRN Reason: pain/fever Last Admin: 01/15/23 10:11 Dose: 650 mg Acetaminophen (Acetaminophen 325 Mg Tablet) 650 mg PO Q6H PRN PRN Reason: Headache/Pain Mild Scale (1-3) Al Hydroxide/Mg Hydroxide (Magnesium Hydrox/Alum Hydrox 30 Ml Oral.Susp) 30 ml PO Q6H PRN PRN Reason: Heartburn/Nausea Atorvastatin Calcium (Atorvastatin Calcium 20 Mg Tablet) 20 mg PO BEDTIME [facility] Last Admin: 01/18/23 21:39 Dose: 20 mg Bisacodyl (Bisacodyl 10 Mg Supp.Rect) 10 mg [place] DAILY PRN PRN Reason: Constipation Clopidogrel Bisulfate (Clopidogrel Bisulfate 75 Mg Tablet) 75 mg PO DAILY [facility] Last Admin: 01/19/23 08:02 Dose: 75 mg Divalproex Sodium (Divalproex Sodium 500 Mg Tablet.) 500 mg PO BEDTIME [facility] Last Admin: 01/18/23 21:40 Dose: 500 mg Divalproex Sodium (Divalproex Sodium 250 Mg Tablet.) 250 mg PO DAILY [facility] Last Admin: 01/19/23 08:02 Dose: 250 mg Donepezil HCl (Donepezil Hcl 10 Mg Tablet) 10 mg PO BEDTIME [facility] Last Admin: 01/18/23 21:40 Dose: 10 mg Escitalopram Oxalate (Escitalopram Oxalate 10 Mg Tablet) 10 mg PO DAILY [facility] Last Admin: 01/19/23 08:02 Dose: 10 mg Gabapentin (Gabapentin 600 Mg Tablet) 1,200 mg PO BEDTIME [facility] Last Admin: 01/18/23 21:39 Dose: 1,200 mg Glucagon (Glucagon Hcl 1 Mg Vial) 1 mg SUBCUT Q20M PRN PRN Reason: BG <70 AND UNRESPONSIVE Glucose (Glucose Gel 15 Gm Gel..Gram.) 15 gm PO Q15M PRN PRN Reason: BG <70 AND RESPONSIVE Insulin Glargine (Insulin Glargine,Hum.Rec.Anlog 100 Unit/Ml 10 Ml Vial) 44 unit SUBCUT BEDTIME [facility] Last Admin: 01/18/23 21:40 Dose: 44 unit Insulin Human Lispro (Insulin Lispro 100 Unit/Ml 3 Ml Vial) 0 unit SUBCUT QIDACHS [facility]; Protocol Last Admin: 01/19/23 08:03 Dose: Not Given Levothyroxine Sodium (Levothyroxine Sodium 75 Mcg Tablet) 75 mcg PO DAILY@0630 [facility] Last Admin: 01/19/23 05:27 Dose: 75 mcg Lidocaine (Lidocaine 4 % Patch Adh..Patch) 1 patch TRANSDERMA DAILY [facility]; Protocol Last Admin: 01/19/23 08:02 Dose: 1 patch Loperamide HCl (Loperamide Hcl 2 Mg Capsule) 2 mg PO Q6H PRN PRN Reason: diarrhea Last Admin: 01/17/23 03:35 Dose: 2 mg Magnesium Hydroxide (Milk Of Magnesia 30 Ml Oral.Susp) 30 ml PO DAILY PRN PRN Reason: Constipation Magnesium Hydroxide (Milk Of Magnesia 30 Ml Oral.Susp) 30 ml PO DAILY PRN PRN Reason: Constipation Memantine (Memantine Hcl 10 Mg Tablet) 10 mg PO BID [facility] Last Admin: 01/19/23 08:02 Dose: 10 mg Metoprolol Tartrate (Metoprolol Tartrate 25 Mg Tablet) 25 mg PO DAILY [facility]; Protocol Last Admin: 01/19/23 08:02 Dose: 25 mg Quetiapine Fumarate (Quetiapine Fumarate 50 Mg Tablet) 50 mg PO Q6H PRN PRN Reason: agitation Last Admin: 01/08/23 23:46 Dose: 50 mg Risperidone (Risperidone 0.5 Mg Tablet) 0.5 mg PO BID [facility] Last Admin: 01/19/23 08:02 Dose: 0.5 mg Sodium Biphosphate/Sodium Phosphate (Sodium Phosphate,[place]-Dibasic 133 Ml Enema) 133 ml [place] DAILY PRN PRN Reason: Constipation Trazodone HCl (Trazodone Hcl 50 Mg Tablet) 50 mg PO BEDTIME MRX1 PRN PRN Reason: Insomnia Last Admin: 01/14/23 20:06 Dose: 50 mg Valsartan (Valsartan 80 Mg Tablet) 80 mg PO BEDTIME [facility]; Protocol Last Admin: 01/18/23 21:40 Dose: 80 mg Allergies Allergies Allergy/AdvReac Type Severity Reaction Status Date / Time aspirin [ASPIRIN] Allergy Unknown UNKNOWN Verified 01/01/23 09:43 Assessment & Plan Assessment & Plan (1) Major neurocognitive disorder: Status: Acute Code(s): F03.90 - Unspecified dementia, unspecified severity, without behavioral disturbance, psychotic disturbance, mood disturbance, and anxiety (2) Mood disorder: Status: Acute Code(s): F39 - Unspecified mood [affective] disorder Plan Ms. Landis is a 67 year-old woman with hx of Mood Disorder (untreated for most of her life) and neurocognitive disorder who was brought via EMS from [facility] due to increase verbal aggression towards roommate and one of their staff. Pt is known to this adjusto writer operator through previous assessment for similar presentation. Pt presents as calmer, she does admit to being verbally abusive, although denies any intent to harm self or others. She does lack the insight into how her behaviors affect others and her relationships with others. This tendency to have difficulty seeing other people's need per daughter has been life long. Pt presents with tendency to be irritable, at times explosive but not physically aggressive. She was started back in September on low dose of seroquel but no further medication adjustments have been made to manage these symptoms, which are disruptive but not life threatening nor at imminent risk of harm to self or others. As consequence of minimal intervention in the community, pt has had more frequent ED visits here and at [facility]. We discussed risks, benefits and alternative treatment options, pt agrees to start mood stabilizer for impulsive, explosive behaviors. We also discussed switching seroquel to risperidone. Pt is orientation has been intact all along. PLAN 1. Gather collateral information. 2. Continue with antipsychotics and mood stabilizers. 3. Reassessment with results. Reason for continued inpatient stay Substantial Risk for: inability to function, rapid decompensation and med/psych decompensation Time Spent With Patient Time: Total time managing care of this patient today ___20_ minutes.
[2023-01-19 11:36] LABS: Glucose, Whole Blood 366 mg/dL (60-115)
[2023-01-19] MEDS: Insulin Lispro 100 UNIT/ML 3 ML VIAL SUBCUT ×3 (11:41→20:38)
[2023-01-19 16:16] LABS: Glucose, Whole Blood 219 mg/dL (60-115)
[2023-01-19 19:40] VITALS: BP 160/68; PULSE 88; RESP 16; TEMP 36.6; O2SAT 99
[2023-01-19 19:51] LABS: Glucose, Whole Blood 269 mg/dL (60-115)
[2023-01-19] MEDS: Donepezil HCl 10 MG TABLET PO (20:38)
[2023-01-19] MEDS: Insulin Glargine,Hum.rec.anlog 100 UNIT/ML 10 ML VIAL 44 UNIT SUBCUT (20:38)
[2023-01-19] MEDS: Divalproex Sodium 500 MG TABLET.DR PO (20:38)
[2023-01-19] MEDS: Valsartan 80 MG TABLET PO (20:38)
[2023-01-19] MEDS: Gabapentin 600 MG TABLET 1200 MG PO (20:38)
[2023-01-19] MEDS: Atorvastatin Calcium 20 MG TABLET PO (20:38)
[2023-01-20] MEDS: Levothyroxine Sodium 75 MCG TABLET PO (06:33)
[2023-01-20 06:54] LABS: Glucose, Whole Blood 118 mg/dL (60-115)
[2023-01-20 07:40] VITALS: BP 139/62; PULSE 70; RESP 18; TEMP 36; O2SAT 100
[2023-01-20] MEDS: Escitalopram Oxalate 10 MG TABLET PO (08:49)
[2023-01-20] MEDS: Divalproex Sodium 250 MG TABLET.DR PO (08:49)
[2023-01-20] MEDS: Memantine HCl 10 MG TABLET PO ×2 (08:49→21:24)
[2023-01-20] MEDS: risperiDONE 0.5 MG TABLET PO ×2 (08:50→21:45)
[2023-01-20] MEDS: Lidocaine 4 % Patch ADH..PATCH 1 PATCH TRANSDERMA (08:50)
[2023-01-20] MEDS: Clopidogrel Bisulfate 75 MG TABLET PO (08:50)
[2023-01-20] MEDS: Metoprolol Tartrate 25 MG TABLET PO (08:50)
--- NOTE | 2023-01-20 09:02 | P.PNPSI_ITS ---
Subjective Subjective Date of Service: 01/20/23 Reason For Visit: Depression Subjective Notes: Conditional Voluntary Interim History: Pt had some difficulty falling asleep last night. Pt denies any physical pain. No behavioral concerns. Pt is pleasant on approach. She denies SI/HI. No signs of psychosis or delusions. She is visible on the unit, social with select peers. Takes medications as prescribed. Review of Systems Review of Systems Pt denies chest pain. Pt denies feeling dizzy Denies SOB Denies coughing No constipation or diarrhea Pt reports neck pain Yes all other systems are reviewed and are negative Mental Status Exam Mental Status Exam Narrative: Appearance: wearing hospital gown, fair hygiene, in NAD Behavior: cooperative Psychomotor: no agitation noted Speech: clear, normal rate/rhythm/volume, spontaneous TP: linear TC: no overt delusional content noted or reported, pt upset about being brought to hospital against her will Mood: okay Affect: congruent SI: denies HI: denies VH/AH: none Delusions: none Insight/judgment: poor x 2. in that she has no insight into how her behaviors affect others and her placement at [facility]. Memory/cog: pt alert, oriented to place, situation, month, date and year. Diagnostics Vital Signs (24Hr): Vital Signs - 24 hr 01/19/23 19:40 01/20/23 07:40 Temperature 97.9 F 96.8 F Pulse Rate 88 70 Respiratory Rate 16 18 Blood Pressure 160/68 H 139/62 Pulse Oximetry 99 100 Oxygen Delivery Method Room Air Room Air BMI result Body Mass Index 27.6 Labs 01/07/23 17:49 01/07/23 17:49 Labs: Laboratory Results - last 48 hr 01/18/23 01/18/23 01/18/23 11:40 16:28 19:44 POC Glucose 259 H 227 H 241 H 01/19/23 01/19/23 01/19/23 05:26 11:32 16:11 POC Glucose 88 366 H* 219 H 01/19/23 01/20/23 19:46 06:32 POC Glucose 269 H 118 H Medications Medications Current Medications Acetaminophen (Acetaminophen 325 Mg Tablet) 650 mg PO Q6H PRN PRN Reason: pain/fever Last Admin: 01/15/23 10:11 Dose: 650 mg Acetaminophen (Acetaminophen 325 Mg Tablet) 650 mg PO Q6H PRN PRN Reason: Headache/Pain Mild Scale (1-3) Al Hydroxide/Mg Hydroxide (Magnesium Hydrox/Alum Hydrox 30 Ml Oral.Susp) 30 ml PO Q6H PRN PRN Reason: Heartburn/Nausea Atorvastatin Calcium (Atorvastatin Calcium 20 Mg Tablet) 20 mg PO BEDTIME [facility] Last Admin: 01/19/23 20:38 Dose: 20 mg Bisacodyl (Bisacodyl 10 Mg Supp.Rect) 10 mg [place] DAILY PRN PRN Reason: Constipation Clopidogrel Bisulfate (Clopidogrel Bisulfate 75 Mg Tablet) 75 mg PO DAILY [facility] Last Admin: 01/20/23 08:50 Dose: 75 mg Divalproex Sodium (Divalproex Sodium 500 Mg Tablet.) 500 mg PO BEDTIME [facility] Last Admin: 01/19/23 20:38 Dose: 500 mg Divalproex Sodium (Divalproex Sodium 250 Mg Tablet.) 250 mg PO DAILY [facility] Last Admin: 01/20/23 08:49 Dose: 250 mg Donepezil HCl (Donepezil Hcl 10 Mg Tablet) 10 mg PO BEDTIME [facility] Last Admin: 01/19/23 20:38 Dose: 10 mg Escitalopram Oxalate (Escitalopram Oxalate 10 Mg Tablet) 10 mg PO DAILY [facility] Last Admin: 01/20/23 08:49 Dose: 10 mg Gabapentin (Gabapentin 600 Mg Tablet) 1,200 mg PO BEDTIME [facility] Last Admin: 01/19/23 20:38 Dose: 1,200 mg Glucagon (Glucagon Hcl 1 Mg Vial) 1 mg SUBCUT Q20M PRN PRN Reason: BG <70 AND UNRESPONSIVE Glucose (Glucose Gel 15 Gm Gel..Gram.) 15 gm PO Q15M PRN PRN Reason: BG <70 AND RESPONSIVE Insulin Glargine (Insulin Glargine,Hum.Rec.Anlog 100 Unit/Ml 10 Ml Vial) 44 unit SUBCUT BEDTIME [facility] Last Admin: 01/19/23 20:38 Dose: 44 unit Insulin Human Lispro (Insulin Lispro 100 Unit/Ml 3 Ml Vial) 0 unit SUBCUT QIDACHS [facility]; Protocol Last Admin: 01/20/23 08:56 Dose: Not Given Levothyroxine Sodium (Levothyroxine Sodium 75 Mcg Tablet) 75 mcg PO DAILY@0630 [facility] Last Admin: 01/20/23 06:33 Dose: 75 mcg Lidocaine (Lidocaine 4 % Patch Adh..Patch) 1 patch TRANSDERMA DAILY [facility]; Protocol Last Admin: 01/20/23 08:50 Dose: 1 patch Loperamide HCl (Loperamide Hcl 2 Mg Capsule) 2 mg PO Q6H PRN PRN Reason: diarrhea Last Admin: 01/17/23 03:35 Dose: 2 mg Magnesium Hydroxide (Milk Of Magnesia 30 Ml Oral.Susp) 30 ml PO DAILY PRN PRN Reason: Constipation Magnesium Hydroxide (Milk Of Magnesia 30 Ml Oral.Susp) 30 ml PO DAILY PRN PRN Reason: Constipation Memantine (Memantine Hcl 10 Mg Tablet) 10 mg PO BID [facility] Last Admin: 01/20/23 08:49 Dose: 10 mg Metoprolol Tartrate (Metoprolol Tartrate 25 Mg Tablet) 25 mg PO DAILY [facility]; Protocol Last Admin: 01/20/23 08:50 Dose: 25 mg Quetiapine Fumarate (Quetiapine Fumarate 50 Mg Tablet) 50 mg PO Q6H PRN PRN Reason: agitation Last Admin: 01/08/23 23:46 Dose: 50 mg Risperidone (Risperidone 0.5 Mg Tablet) 0.5 mg PO BID [facility] Last Admin: 01/20/23 08:50 Dose: 0.5 mg Sodium Biphosphate/Sodium Phosphate (Sodium Phosphate,[place]-Dibasic 133 Ml Enema) 133 ml [place] DAILY PRN PRN Reason: Constipation Trazodone HCl (Trazodone Hcl 50 Mg Tablet) 50 mg PO BEDTIME MRX1 PRN PRN Reason: Insomnia Last Admin: 01/14/23 20:06 Dose: 50 mg Valsartan (Valsartan 80 Mg Tablet) 80 mg PO BEDTIME [facility]; Protocol Last Admin: 01/19/23 20:38 Dose: 80 mg Allergies Allergies Allergy/AdvReac Type Severity Reaction Status Date / Time aspirin [ASPIRIN] Allergy Unknown UNKNOWN Verified 01/01/23 09:43 Assessment & Plan Assessment & Plan (1) Major neurocognitive disorder: Status: Acute Code(s): F03.90 - Unspecified dementia, unspecified severity, without behavioral disturbance, psychotic disturbance, mood disturbance, and anxiety (2) Mood disorder: Status: Acute Code(s): F39 - Unspecified mood [affective] disorder Plan Ms. Landis is a 67 year-old woman with hx of Mood Disorder (untreated for most of her life) and neurocognitive disorder who was brought via EMS from [facility] due to increase verbal aggression towards roommate and one of their staff. Pt is known to this justowriter operator through previous assessment for similar presentation. Pt presents as calmer, she does admit to being verbally abusive, although denies any intent to harm self or others. She does lack the insight into how her behaviors affect others and her relationships with others. This tendency to have difficulty seeing other people's need per daughter has been life long. Pt presents with tendency to be irritable, at times explosive but not physically aggressive. She was started back in September on low dose of seroquel but no further medication adjustments have been made to manage these symptoms, which are disruptive but not life threatening nor at imminent risk of harm to self or others. As consequence of minimal intervention in the community, pt has had more frequent ED visits here and at [facility]. We discussed risks, benefits and alternative treatment options, pt agrees to start mood stabilizer for impulsive, explosive behaviors. We also discussed switching seroquel to risperidone. Pt is orientation has been intact all along. PLAN 01/20 schedule trazodone 50mg po qhs for sleep. Reason for continued inpatient stay Substantial Risk for: inability to function Time Spent With Patient Time: Total time managing care of this patient today ____ minutes.
[2023-01-20 11:16] LABS: Glucose, Whole Blood 268 mg/dL (60-115)
[2023-01-20] MEDS: Insulin Lispro 100 UNIT/ML 3 ML VIAL SUBCUT ×3 (11:24→21:48)
[2023-01-20 16:17] LABS: Glucose, Whole Blood 265 mg/dL (60-115)
[2023-01-20 18:00] VITALS: BP 147/89; PULSE 68; RESP 16; TEMP 36.6; O2SAT 95
[2023-01-20] MEDS: Valsartan 80 MG TABLET PO (21:23)
[2023-01-20] MEDS: Atorvastatin Calcium 20 MG TABLET PO (21:23)
[2023-01-20] MEDS: Donepezil HCl 10 MG TABLET PO (21:24)
[2023-01-20] MEDS: Gabapentin 600 MG TABLET 1200 MG PO (21:24)
[2023-01-20] MEDS: Divalproex Sodium 500 MG TABLET.DR PO (21:24)
[2023-01-20] MEDS: traZODone HCL 50 MG TABLET PO (21:25)
[2023-01-20 21:41] LABS: Glucose, Whole Blood 256 mg/dL (60-115)
[2023-01-20] MEDS: Insulin Glargine,Hum.rec.anlog 100 UNIT/ML 10 ML VIAL 44 UNIT SUBCUT (21:47)
[2023-01-21] MEDS: Acetaminophen 325 MG TABLET 650 MG PO (04:21)
[2023-01-21 06:30] LABS: Glucose, Whole Blood 116 mg/dL (60-115)
[2023-01-21 08:20] VITALS: BP 108/55; PULSE 67; RESP 18; TEMP 36.2; O2SAT 98
[2023-01-21] MEDS: Lidocaine 4 % Patch ADH..PATCH 1 PATCH TRANSDERMA (08:29)
[2023-01-21] MEDS: Escitalopram Oxalate 10 MG TABLET PO (08:30)
[2023-01-21] MEDS: Memantine HCl 10 MG TABLET PO ×2 (08:30→21:54)
[2023-01-21] MEDS: Divalproex Sodium 250 MG TABLET.DR PO (08:30)
[2023-01-21] MEDS: risperiDONE 0.5 MG TABLET PO ×2 (08:31→21:55)
[2023-01-21] MEDS: Metoprolol Tartrate 25 MG TABLET PO (08:31)
[2023-01-21] MEDS: Clopidogrel Bisulfate 75 MG TABLET PO (08:31)
--- NOTE | 2023-01-21 08:37 | HO.PSYCHPN ---
Subjective Subjective Date of Service: 01/21/23 Reason For Visit: Depression Subjective Notes: Conditional Voluntary Healthcare Proxy: Yes Interim History: Pt reports doing well. She has been visible on the unit. She has not shown any signs of aggression towards self or others. She denies SI/HI. No signs of psychosis or delusions. She denies symptoms of depression or anxiety. She reports feeling safe here on the unit. She is social with select peers. Review of Systems Review of Systems Pt denies chest pain. Pt denies feeling dizzy Denies SOB Denies coughing No constipation or diarrhea Pt reports neck pain Yes all other systems are reviewed and are negative Mental Status Exam Mental Status Exam Narrative: Appearance: wearing hospital gown, fair hygiene, in NAD Behavior: cooperative Psychomotor: no agitation noted Speech: clear, normal rate/rhythm/volume, spontaneous TP: linear TC: no overt delusional content noted or reported, pt upset about being brought to hospital against her will Mood: okay Affect: congruent SI: denies HI: denies VH/AH: none Delusions: none Insight/judgment: poor x 2. in that she has no insight into how her behaviors affect others and her placement [facility]. Memory/cog: pt alert, oriented to place, situation, month, date and year. Diagnostics Vital Signs (24Hr): Vital Signs - 24 hr 01/20/23 18:00 01/21/23 08:20 Temperature 98 F 97.2 F Pulse Rate 68 67 Respiratory Rate 16 18 Blood Pressure 147/89 H 108/55 L Pulse Oximetry 95 98 Oxygen Delivery Method Room Air Room Air BMI result Body Mass Index 27.6 Labs 01/07/23 17:49 01/07/23 17:49 Labs: Laboratory Results - last 48 hr 01/19/23 01/19/23 01/19/23 11:32 16:11 19:46 POC Glucose 366 H* 219 H 269 H 01/20/23 01/20/23 01/20/23 06:32 11:04 16:14 POC Glucose 118 H 268 H 265 H 01/20/23 01/21/23 21:36 06:25 POC Glucose 256 H 116 H Medications Medications Current Medications Acetaminophen (Acetaminophen 325 Mg Tablet) 650 mg PO Q6H PRN PRN Reason: Headache/Pain Mild Scale (1-3) Last Admin: 01/21/23 04:21 Dose: 650 mg Al Hydroxide/Mg Hydroxide (Magnesium Hydrox/Alum Hydrox 30 Ml Oral.Susp) 30 ml PO Q6H PRN PRN Reason: Heartburn/Nausea Atorvastatin Calcium (Atorvastatin Calcium 20 Mg Tablet) 20 mg PO BEDTIME [facility] Last Admin: 01/20/23 21:23 Dose: 20 mg Bisacodyl (Bisacodyl 10 Mg Supp.Rect) 10 mg [place] DAILY PRN PRN Reason: Constipation Clopidogrel Bisulfate (Clopidogrel Bisulfate 75 Mg Tablet) 75 mg PO DAILY [facility] Last Admin: 01/21/23 08:31 Dose: 75 mg Divalproex Sodium (Divalproex Sodium 500 Mg Tablet.Dr) 500 mg PO BEDTIME [facility] Last Admin: 01/20/23 21:24 Dose: 500 mg Divalproex Sodium (Divalproex Sodium 250 Mg Tablet.Dr) 250 mg PO DAILY [facility] Last Admin: 01/21/23 08:30 Dose: 250 mg Donepezil HCl (Donepezil Hcl 10 Mg Tablet) 10 mg PO BEDTIME [facility] Last Admin: 01/20/23 21:24 Dose: 10 mg Escitalopram Oxalate (Escitalopram Oxalate 10 Mg Tablet) 10 mg PO DAILY [facility] Last Admin: 01/21/23 08:30 Dose: 10 mg Gabapentin (Gabapentin 600 Mg Tablet) 1,200 mg PO BEDTIME [facility] Last Admin: 01/20/23 21:24 Dose: 1,200 mg Glucagon (Glucagon Hcl 1 Mg Vial) 1 mg SUBCUT Q20M PRN PRN Reason: BG <70 AND UNRESPONSIVE Glucose (Glucose Gel 15 Gm Gel..Gram.) 15 gm PO Q15M PRN PRN Reason: BG <70 AND RESPONSIVE Insulin Glargine (Insulin Glargine,Hum.Rec.Anlog 100 Unit/Ml 10 Ml Vial) 44 unit SUBCUT BEDTIME [facility] Last Admin: 01/20/23 21:47 Dose: 44 unit Insulin Human Lispro (Insulin Lispro 100 Unit/Ml 3 Ml Vial) 0 unit SUBCUT QIDACHS [facility]; Protocol Last Admin: 01/21/23 08:33 Dose: Not Given Levothyroxine Sodium (Levothyroxine Sodium 75 Mcg Tablet) 75 mcg PO DAILY@0630 [facility] Last Admin: 01/21/23 06:18 Dose: Not Given Lidocaine (Lidocaine 4 % Patch Adh..Patch) 1 patch TRANSDERMA DAILY [facility]; Protocol Last Admin: 01/21/23 08:29 Dose: 1 patch Loperamide HCl (Loperamide Hcl 2 Mg Capsule) 2 mg PO Q6H PRN PRN Reason: diarrhea Last Admin: 01/17/23 03:35 Dose: 2 mg Magnesium Hydroxide (Milk Of Magnesia 30 Ml Oral.Susp) 30 ml PO DAILY PRN PRN Reason: Constipation Magnesium Hydroxide (Milk Of Magnesia 30 Ml Oral.Susp) 30 ml PO DAILY PRN PRN Reason: Constipation Memantine (Memantine Hcl 10 Mg Tablet) 10 mg PO BID [facility] Last Admin: 01/21/23 08:30 Dose: 10 mg Metoprolol Tartrate (Metoprolol Tartrate 25 Mg Tablet) 25 mg PO DAILY [facility]; Protocol Last Admin: 01/21/23 08:31 Dose: 25 mg Quetiapine Fumarate (Quetiapine Fumarate 50 Mg Tablet) 50 mg PO Q6H PRN PRN Reason: agitation Last Admin: 01/08/23 23:46 Dose: 50 mg Risperidone (Risperidone 0.5 Mg Tablet) 0.5 mg PO BID [facility] Last Admin: 01/21/23 08:31 Dose: 0.5 mg Sodium Biphosphate/Sodium Phosphate (Sodium Phosphate,[place]-Dibasic 133 Ml Enema) 133 ml [place] DAILY PRN PRN Reason: Constipation Trazodone HCl (Trazodone Hcl 50 Mg Tablet) 50 mg PO BEDTIME MRX1 [facility] Last Admin: 01/20/23 23:56 Dose: Not Given Valsartan (Valsartan 80 Mg Tablet) 80 mg PO BEDTIME [facility]; Protocol Last Admin: 01/20/23 21:23 Dose: 80 mg Allergies Allergies Allergy/AdvReac Type Severity Reaction Status Date / Time aspirin [ASPIRIN] Allergy Unknown UNKNOWN Verified 01/01/23 09:43 Assessment & Plan Assessment & Plan (1) Major neurocognitive disorder: Status: Acute Code(s): F03.90 - Unspecified dementia, unspecified severity, without behavioral disturbance, psychotic disturbance, mood disturbance, and anxiety (2) Mood disorder: Status: Acute Code(s): F39 - Unspecified mood [affective] disorder Plan Ms. Landis is a 67 year-old woman with hx of Mood Disorder (untreated for most of her life) and neurocognitive disorder who was brought via EMS from [facility] due to increase verbal aggression towards roommate and one of their staff. Pt is known to this telegraphic typewriter installer through previous assessment for similar presentation. Pt presents as calmer, she does admit to being verbally abusive, although denies any intent to harm self or others. She does lack the insight into how her behaviors affect others and her relationships with others. This tendency to have difficulty seeing other people's need per daughter has been life long. Pt presents with tendency to be irritable, at times explosive but not physically aggressive. She was started back in September on low dose of seroquel but no further medication adjustments have been made to manage these symptoms, which are disruptive but not life threatening nor at imminent risk of harm to self or others. As consequence of minimal intervention in the community, pt has had more frequent ED visits here and at [facility]. We discussed risks, benefits and alternative treatment options, pt agrees to start mood stabilizer for impulsive, explosive behaviors. We also discussed switching seroquel to risperidone. Pt is orientation has been intact all along. PLAN 01/20 schedule trazodone 50mg po qhs for sleep. 01/21 continue tx. depakote levels scheduled for tomorrow AM with ammonia levels. Reason for continued inpatient stay Substantial Risk for: inability to function Time Spent With Patient Time: Total time managing care of this patient today ____ minutes.
[2023-01-21 09:02] LABS: Ammonia 37 umol/L (13-55)
[2023-01-21 11:29] LABS: Glucose, Whole Blood 340 mg/dL (60-115)
[2023-01-21] MEDS: Insulin Lispro 100 UNIT/ML 3 ML VIAL SUBCUT ×3 (11:35→21:58)
[2023-01-21 16:27] LABS: Glucose, Whole Blood 270 mg/dL (60-115)
[2023-01-21 18:00] VITALS: BP 144/63; PULSE 76; RESP 16; TEMP 36.4; O2SAT 96
[2023-01-21 21:52] LABS: Glucose, Whole Blood 285 mg/dL (60-115)
[2023-01-21] MEDS: Atorvastatin Calcium 20 MG TABLET PO (21:54)
[2023-01-21] MEDS: Gabapentin 600 MG TABLET 1200 MG PO (21:55)
[2023-01-21] MEDS: Valsartan 80 MG TABLET PO (21:55)
[2023-01-21] MEDS: Divalproex Sodium 500 MG TABLET.DR PO (21:56)
[2023-01-21] MEDS: Insulin Glargine,Hum.rec.anlog 100 UNIT/ML 10 ML VIAL 44 UNIT SUBCUT (21:59)
[2023-01-21] MEDS: Donepezil HCl 10 MG TABLET PO (22:01)
[2023-01-21] MEDS: traZODone HCL 50 MG TABLET PO (22:10)
[2023-01-22] MEDS: Levothyroxine Sodium 75 MCG TABLET PO (06:41)
[2023-01-22 06:49] LABS: Glucose, Whole Blood 284 mg/dL (60-115)
[2023-01-22 08:10] VITALS: BP 123/58; PULSE 85; RESP 20; TEMP 36.5; O2SAT 92
[2023-01-22] MEDS: Insulin Lispro 100 UNIT/ML 3 ML VIAL SUBCUT ×4 (08:10→20:44)
[2023-01-22] MEDS: Clopidogrel Bisulfate 75 MG TABLET PO (08:12)
[2023-01-22] MEDS: Metoprolol Tartrate 25 MG TABLET PO (08:12)
[2023-01-22] MEDS: Divalproex Sodium 250 MG TABLET.DR PO (08:13)
[2023-01-22] MEDS: Escitalopram Oxalate 10 MG TABLET PO (08:13)
[2023-01-22] MEDS: risperiDONE 0.5 MG TABLET PO ×2 (08:13→20:46)
[2023-01-22] MEDS: Memantine HCl 10 MG TABLET PO ×2 (08:13→20:46)
[2023-01-22 08:45] LABS: Valproate 75.5 mcg/mL (50.0-100.0)
[2023-01-22 08:57] LABS: Ammonia 41 umol/L (13-55)
[2023-01-22] MEDS: Lidocaine 4 % Patch ADH..PATCH 1 PATCH TRANSDERMA (08:57)
[2023-01-22 11:39] LABS: Glucose, Whole Blood 322 mg/dL (60-115)
--- NOTE | 2023-01-22 16:28 | HO.PSYCHPN ---
Subjective Subjective Date of Service: 01/22/23 Reason For Visit: Depression Subjective Notes: Conditional Voluntary Interim History: Pt continues to report doing well. She has been visible on the unit. She has not shown any signs of aggression towards self or others. She denies SI/HI. No signs of psychosis or delusions. She denies symptoms of depression or anxiety. She reports feeling safe here on the unit. She is social with select peers. Review of Systems Review of Systems Pt denies chest pain. Pt denies feeling dizzy Denies SOB Denies coughing No constipation or diarrhea Pt reports neck pain Yes all other systems are reviewed and are negative Mental Status Exam Mental Status Exam Narrative: Appearance: wearing hospital gown, fair hygiene, in NAD Behavior: cooperative Psychomotor: no agitation noted Speech: clear, normal rate/rhythm/volume, spontaneous TP: linear TC: no overt delusional content noted or reported, pt upset about being brought to hospital against her will Mood: okay Affect: congruent SI: denies HI: denies VH/AH: none Delusions: none Insight/judgment: poor x 2. in that she has no insight into how her behaviors affect others and her placement at [facility]. Memory/cog: pt alert, oriented to place, situation, month, date and year. Diagnostics Vital Signs (24Hr): Vital Signs - 24 hr 01/21/23 18:00 01/22/23 08:10 Temperature 97.6 F 97.7 F Pulse Rate 76 85 Respiratory Rate 16 20 Blood Pressure 144/63 H 123/58 L Pulse Oximetry 96 92 Oxygen Delivery Method Room Air Room Air BMI result Body Mass Index 27.6 Labs 01/07/23 17:49 01/07/23 17:49 Labs: Laboratory Results - last 48 hr 01/20/23 01/21/23 01/21/23 21:36 06:25 08:40 POC Glucose 256 H 116 H Ammonia 37 Valproic Acid 01/21/23 01/21/23 01/21/23 11:26 16:11 21:42 POC Glucose 340 H 270 H 285 H Ammonia Valproic Acid 01/22/23 01/22/23 01/22/23 06:39 07:55 11:35 POC Glucose 284 H 322 H Ammonia 41 Valproic Acid 75.5 Medications Medications Current Medications Acetaminophen (Acetaminophen 325 Mg Tablet) 650 mg PO Q6H PRN PRN Reason: Headache/Pain Mild Scale (1-3) Last Admin: 01/21/23 04:21 Dose: 650 mg Al Hydroxide/Mg Hydroxide (Magnesium Hydrox/Alum Hydrox 30 Ml Oral.Susp) 30 ml PO Q6H PRN PRN Reason: Heartburn/Nausea Atorvastatin Calcium (Atorvastatin Calcium 20 Mg Tablet) 20 mg PO BEDTIME [facility] Last Admin: 01/21/23 21:54 Dose: 20 mg Bisacodyl (Bisacodyl 10 Mg Supp.Rect) 10 mg [place] DAILY PRN PRN Reason: Constipation Clopidogrel Bisulfate (Clopidogrel Bisulfate 75 Mg Tablet) 75 mg PO DAILY [facility] Last Admin: 01/22/23 08:12 Dose: 75 mg Divalproex Sodium (Divalproex Sodium 500 Mg Tablet.) 500 mg PO BEDTIME [facility] Last Admin: 01/21/23 21:56 Dose: 500 mg Divalproex Sodium (Divalproex Sodium 250 Mg Tablet.) 250 mg PO DAILY [facility] Last Admin: 01/22/23 08:13 Dose: 250 mg Donepezil HCl (Donepezil Hcl 10 Mg Tablet) 10 mg PO BEDTIME [facility] Last Admin: 01/21/23 22:01 Dose: 10 mg Escitalopram Oxalate (Escitalopram Oxalate 10 Mg Tablet) 10 mg PO DAILY [facility] Last Admin: 01/22/23 08:13 Dose: 10 mg Gabapentin (Gabapentin 600 Mg Tablet) 1,200 mg PO BEDTIME [facility] Last Admin: 01/21/23 21:55 Dose: 1,200 mg Glucagon (Glucagon Hcl 1 Mg Vial) 1 mg SUBCUT Q20M PRN PRN Reason: BG <70 AND UNRESPONSIVE Glucose (Glucose Gel 15 Gm Gel..Gram.) 15 gm PO Q15M PRN PRN Reason: BG <70 AND RESPONSIVE Insulin Glargine (Insulin Glargine,Hum.Rec.Anlog 100 Unit/Ml 10 Ml Vial) 44 unit SUBCUT BEDTIME [facility] Last Admin: 01/21/23 21:59 Dose: 44 unit Insulin Human Lispro (Insulin Lispro 100 Unit/Ml 3 Ml Vial) 0 unit SUBCUT QIDACHS [facility]; Protocol Last Admin: 01/22/23 11:43 Dose: 8 unit Levothyroxine Sodium (Levothyroxine Sodium 75 Mcg Tablet) 75 mcg PO DAILY@0630 [facility] Last Admin: 01/22/23 06:41 Dose: 75 mcg Lidocaine (Lidocaine 4 % Patch Adh..Patch) 1 patch TRANSDERMA DAILY [facility]; Protocol Last Admin: 01/22/23 08:57 Dose: 1 patch Loperamide HCl (Loperamide Hcl 2 Mg Capsule) 2 mg PO Q6H PRN PRN Reason: diarrhea Last Admin: 01/17/23 03:35 Dose: 2 mg Magnesium Hydroxide (Milk Of Magnesia 30 Ml Oral.Susp) 30 ml PO DAILY PRN PRN Reason: Constipation Magnesium Hydroxide (Milk Of Magnesia 30 Ml Oral.Susp) 30 ml PO DAILY PRN PRN Reason: Constipation Memantine (Memantine Hcl 10 Mg Tablet) 10 mg PO BID [facility] Last Admin: 01/22/23 08:13 Dose: 10 mg Metoprolol Tartrate (Metoprolol Tartrate 25 Mg Tablet) 25 mg PO DAILY [facility]; Protocol Last Admin: 01/22/23 08:12 Dose: 25 mg Quetiapine Fumarate (Quetiapine Fumarate 50 Mg Tablet) 50 mg PO Q6H PRN PRN Reason: agitation Last Admin: 01/08/23 23:46 Dose: 50 mg Risperidone (Risperidone 0.5 Mg Tablet) 0.5 mg PO BID [facility] Last Admin: 01/22/23 08:13 Dose: 0.5 mg Sodium Biphosphate/Sodium Phosphate (Sodium Phosphate,[place]-Dibasic 133 Ml Enema) 133 ml [place] DAILY PRN PRN Reason: Constipation Trazodone HCl (Trazodone Hcl 50 Mg Tablet) 50 mg PO BEDTIME MRX1 [facility] Last Admin: 01/22/23 00:40 Dose: Not Given Valsartan (Valsartan 80 Mg Tablet) 80 mg PO BEDTIME [facility]; Protocol Last Admin: 01/21/23 21:55 Dose: 80 mg Allergies Allergies Allergy/AdvReac Type Severity Reaction Status Date / Time aspirin [ASPIRIN] Allergy Unknown UNKNOWN Verified 01/01/23 09:43 Assessment & Plan Assessment & Plan (1) Major neurocognitive disorder: Status: Acute Code(s): F03.90 - Unspecified dementia, unspecified severity, without behavioral disturbance, psychotic disturbance, mood disturbance, and anxiety (2) Mood disorder: Status: Acute Code(s): F39 - Unspecified mood [affective] disorder Plan Ms. Landis is a 67 year-old woman with hx of Mood Disorder (untreated for most of her life) and neurocognitive disorder who was brought via EMS from [facility] due to increase verbal aggression towards roommate and one of their staff. Pt is known to this creative writer through previous assessment for similar presentation. Pt presents as calmer, she does admit to being verbally abusive, although denies any intent to harm self or others. She does lack the insight into how her behaviors affect others and her relationships with others. This tendency to have difficulty seeing other people's need per daughter has been life long. Pt presents with tendency to be irritable, at times explosive but not physically aggressive. She was started back in September on low dose of seroquel but no further medication adjustments have been made to manage these symptoms, which are disruptive but not life threatening nor at imminent risk of harm to self or others. As consequence of minimal intervention in the community, pt has had more frequent ED visits here and at [facility]. We discussed risks, benefits and alternative treatment options, pt agrees to start mood stabilizer for impulsive, explosive behaviors. We also discussed switching seroquel to risperidone. Pt is orientation has been intact all along. PLAN 01/20 schedule trazodone 50mg po qhs for sleep. 01/21 continue tx. depakote levels scheduled for tomorrow AM with ammonia levels. 01/22 trough depakote level 75, ammonia 41. continue tx. Reason for continued inpatient stay Substantial Risk for: inability to function Time Spent With Patient Time: Total time managing care of this patient today ____ minutes.
[2023-01-22 16:30] LABS: Glucose, Whole Blood 302 mg/dL (60-115)
[2023-01-22 18:00] VITALS: BP 127/85; PULSE 66; RESP 18; TEMP 36.5; O2SAT 95
[2023-01-22] MEDS: Insulin Glargine,Hum.rec.anlog 100 UNIT/ML 10 ML VIAL 44 UNIT SUBCUT (20:45)
[2023-01-22] MEDS: Gabapentin 600 MG TABLET 1200 MG PO (20:45)
[2023-01-22] MEDS: Atorvastatin Calcium 20 MG TABLET PO (20:46)
[2023-01-22] MEDS: Donepezil HCl 10 MG TABLET PO (20:46)
[2023-01-22] MEDS: traZODone HCL 50 MG TABLET PO (20:46)
[2023-01-22] MEDS: Valsartan 80 MG TABLET PO (20:46)
[2023-01-22] MEDS: Divalproex Sodium 500 MG TABLET.DR PO (20:46)
[2023-01-23 00:08] LABS: Glucose, Whole Blood 345 mg/dL (60-115)
[2023-01-23] MEDS: Levothyroxine Sodium 75 MCG TABLET PO (06:19)
[2023-01-23 06:27] LABS: Glucose, Whole Blood 175 mg/dL (60-115)
[2023-01-23 07:00] VITALS: BMI 27.8
[2023-01-23 08:10] VITALS: BP 134/69; PULSE 67; RESP 20; TEMP 36.4; O2SAT 97
[2023-01-23] MEDS: Insulin Lispro 100 UNIT/ML 3 ML VIAL SUBCUT ×4 (08:11→20:50)
[2023-01-23] MEDS: Divalproex Sodium 250 MG TABLET.DR PO (08:13)
[2023-01-23] MEDS: Memantine HCl 10 MG TABLET PO ×2 (08:13→20:52)
[2023-01-23] MEDS: risperiDONE 0.5 MG TABLET PO ×2 (08:13→20:52)
[2023-01-23] MEDS: Escitalopram Oxalate 10 MG TABLET PO (08:13)
[2023-01-23] MEDS: Metoprolol Tartrate 25 MG TABLET PO (08:13)
[2023-01-23] MEDS: Clopidogrel Bisulfate 75 MG TABLET PO (08:14)
[2023-01-23] MEDS: Lidocaine 4 % Patch ADH..PATCH 1 PATCH TRANSDERMA (08:15)
[2023-01-23 11:29] LABS: Glucose, Whole Blood 312 mg/dL (60-115)
--- NOTE | 2023-01-23 16:15 | HO.PSYCHPN ---
Subjective Subjective Date of Service: 01/24/23 Reason For Visit: Depression Subjective Notes: Conditional Voluntary Interim History: Pt continues to report doing well. She has been in her room as it is cloudy. She has not shown any signs of aggression towards self or others. She denies SI/HI. No signs of psychosis or delusions. She denies symptoms of depression or anxiety. She reports feeling safe here on the unit. She is social with select peers. Takes medications as prescribed Review of Systems Review of Systems Pt denies chest pain. Pt denies feeling dizzy Denies SOB Denies coughing No constipation or diarrhea Pt reports neck pain Yes all other systems are reviewed and are negative Mental Status Exam Mental Status Exam Narrative: Appearance: wearing hospital gown, fair hygiene, in NAD Behavior: cooperative Psychomotor: no agitation noted Speech: clear, normal rate/rhythm/volume, spontaneous TP: linear TC: no overt delusional content noted or reported, pt upset about being brought to hospital against her will Mood: okay Affect: congruent SI: denies HI: denies VH/AH: none Delusions: none Insight/judgment: poor x 2. in that she has no insight into how her behaviors affect others and her placement at [facility]. Memory/cog: pt alert, oriented to place, situation, month, date and year. Diagnostics Vital Signs (24Hr): Vital Signs - 24 hr 01/22/23 18:00 01/23/23 08:10 Temperature 97.7 F 97.5 F Pulse Rate 66 67 Respiratory Rate 18 20 Blood Pressure 127/85 134/69 Pulse Oximetry 95 97 Oxygen Delivery Method Room Air Room Air BMI result Body Mass Index 27.8 Labs 01/07/23 17:49 01/07/23 17:49 Labs: Laboratory Results - last 48 hr 01/21/23 01/21/23 01/22/23 16:11 21:42 06:39 POC Glucose 270 H 285 H 284 H Ammonia Valproic Acid 01/22/23 01/22/23 01/22/23 07:55 11:35 16:25 POC Glucose 322 H 302 H Ammonia 41 Valproic Acid 75.5 01/22/23 01/23/23 01/23/23 19:43 06:18 11:25 POC Glucose 345 H 175 H 312 H Ammonia Valproic Acid Medications Medications Current Medications Acetaminophen (Acetaminophen 325 Mg Tablet) 650 mg PO Q6H PRN PRN Reason: Headache/Pain Mild Scale (1-3) Last Admin: 01/21/23 04:21 Dose: 650 mg Al Hydroxide/Mg Hydroxide (Magnesium Hydrox/Alum Hydrox 30 Ml Oral.Susp) 30 ml PO Q6H PRN PRN Reason: Heartburn/Nausea Atorvastatin Calcium (Atorvastatin Calcium 20 Mg Tablet) 20 mg PO BEDTIME [facility] Last Admin: 01/22/23 20:46 Dose: 20 mg Bisacodyl (Bisacodyl 10 Mg Supp.Rect) 10 mg [place] DAILY PRN PRN Reason: Constipation Clopidogrel Bisulfate (Clopidogrel Bisulfate 75 Mg Tablet) 75 mg PO DAILY [facility] Last Admin: 01/23/23 08:14 Dose: 75 mg Divalproex Sodium (Divalproex Sodium 500 Mg Tablet.) 500 mg PO BEDTIME [facility] Last Admin: 01/22/23 20:46 Dose: 500 mg Divalproex Sodium (Divalproex Sodium 250 Mg Tablet.) 250 mg PO DAILY [facility] Last Admin: 01/23/23 08:13 Dose: 250 mg Donepezil HCl (Donepezil Hcl 10 Mg Tablet) 10 mg PO BEDTIME [facility] Last Admin: 01/22/23 20:46 Dose: 10 mg Escitalopram Oxalate (Escitalopram Oxalate 10 Mg Tablet) 10 mg PO DAILY [facility] Last Admin: 01/23/23 08:13 Dose: 10 mg Gabapentin (Gabapentin 600 Mg Tablet) 1,200 mg PO BEDTIME [facility] Last Admin: 01/22/23 20:45 Dose: 1,200 mg Glucagon (Glucagon Hcl 1 Mg Vial) 1 mg SUBCUT Q20M PRN PRN Reason: BG <70 AND UNRESPONSIVE Glucose (Glucose Gel 15 Gm Gel..Gram.) 15 gm PO Q15M PRN PRN Reason: BG <70 AND RESPONSIVE Insulin Glargine (Insulin Glargine,Hum.Rec.Anlog 100 Unit/Ml 10 Ml Vial) 44 unit SUBCUT BEDTIME [facility] Last Admin: 01/22/23 20:45 Dose: 44 unit Insulin Human Lispro (Insulin Lispro 100 Unit/Ml 3 Ml Vial) 0 unit SUBCUT QIDACHS [facility]; Protocol Last Admin: 01/23/23 11:36 Dose: 8 unit Levothyroxine Sodium (Levothyroxine Sodium 75 Mcg Tablet) 75 mcg PO DAILY@0630 [facility] Last Admin: 01/23/23 06:19 Dose: 75 mcg Lidocaine (Lidocaine 4 % Patch Adh..Patch) 1 patch TRANSDERMA DAILY [facility]; Protocol Last Admin: 01/23/23 08:15 Dose: 1 patch Loperamide HCl (Loperamide Hcl 2 Mg Capsule) 2 mg PO Q6H PRN PRN Reason: diarrhea Last Admin: 01/17/23 03:35 Dose: 2 mg Magnesium Hydroxide (Milk Of Magnesia 30 Ml Oral.Susp) 30 ml PO DAILY PRN PRN Reason: Constipation Magnesium Hydroxide (Milk Of Magnesia 30 Ml Oral.Susp) 30 ml PO DAILY PRN PRN Reason: Constipation Memantine (Memantine Hcl 10 Mg Tablet) 10 mg PO BID [facility] Last Admin: 01/23/23 08:13 Dose: 10 mg Metoprolol Tartrate (Metoprolol Tartrate 25 Mg Tablet) 25 mg PO DAILY [facility]; Protocol Last Admin: 01/23/23 08:13 Dose: 25 mg Quetiapine Fumarate (Quetiapine Fumarate 50 Mg Tablet) 50 mg PO Q6H PRN PRN Reason: agitation Last Admin: 01/08/23 23:46 Dose: 50 mg Risperidone (Risperidone 0.5 Mg Tablet) 0.5 mg PO BID [facility] Last Admin: 01/23/23 08:13 Dose: 0.5 mg Sodium Biphosphate/Sodium Phosphate (Sodium Phosphate,[place]-Dibasic 133 Ml Enema) 133 ml [place] DAILY PRN PRN Reason: Constipation Trazodone HCl (Trazodone Hcl 50 Mg Tablet) 50 mg PO BEDTIME MRX1 [facility] Last Admin: 01/23/23 03:34 Dose: Not Given Valsartan (Valsartan 80 Mg Tablet) 80 mg PO BEDTIME [facility]; Protocol Last Admin: 01/22/23 20:46 Dose: 80 mg Allergies Allergies Allergy/AdvReac Type Severity Reaction Status Date / Time aspirin [ASPIRIN] Allergy Unknown UNKNOWN Verified 01/01/23 09:43 Assessment & Plan Assessment & Plan (1) Major neurocognitive disorder: Status: Acute Code(s): F03.90 - Unspecified dementia, unspecified severity, without behavioral disturbance, psychotic disturbance, mood disturbance, and anxiety (2) Mood disorder: Status: Acute Code(s): F39 - Unspecified mood [affective] disorder Plan Ms. Landis is a 67 year-old woman with hx of Mood Disorder (untreated for most of her life) and neurocognitive disorder who was brought via EMS from [facility] due to increase verbal aggression towards roommate and one of their staff. Pt is known to this contract technical writer through previous assessment for similar presentation. Pt presents as calmer, she does admit to being verbally abusive, although denies any intent to harm self or others. She does lack the insight into how her behaviors affect others and her relationships with others. This tendency to have difficulty seeing other people's need per daughter has been life long. Pt presents with tendency to be irritable, at times explosive but not physically aggressive. She was started back in September on low dose of seroquel but no further medication adjustments have been made to manage these symptoms, which are disruptive but not life threatening nor at imminent risk of harm to self or others. As consequence of minimal intervention in the community, pt has had more frequent ED visits here and at [facility]. We discussed risks, benefits and alternative treatment options, pt agrees to start mood stabilizer for impulsive, explosive behaviors. We also discussed switching seroquel to risperidone. Pt is orientation has been intact all along. PLAN 01/20 schedule trazodone 50mg po qhs for sleep. 01/21 continue tx. depakote levels scheduled for tomorrow AM with ammonia levels. 01/22 trough depakote level 75, ammonia 41. continue tx. 01/23 continue tx. 01/24 continue tx. Reason for continued inpatient stay Substantial Risk for: inability to function Time Spent With Patient Time: Total time managing care of this patient today ____ minutes.
[2023-01-23 16:52] LABS: Glucose, Whole Blood 260 mg/dL (60-115)
[2023-01-23 18:00] VITALS: BP 140/71; PULSE 66; RESP 16; TEMP 36.2; O2SAT 95
--- NOTE | 2023-01-23 18:32 | PC.NURSE ---
Dr Gilbert notified of elevated blood sugars; hospitalist consult ordered.
[2023-01-23 19:59] LABS: Glucose, Whole Blood 310 mg/dL (60-115)
[2023-01-23] MEDS: Insulin Glargine,Hum.rec.anlog 100 UNIT/ML 10 ML VIAL 44 UNIT SUBCUT (20:50)
[2023-01-23] MEDS: Valsartan 80 MG TABLET PO (20:51)
[2023-01-23] MEDS: Atorvastatin Calcium 20 MG TABLET PO (20:51)
[2023-01-23] MEDS: Donepezil HCl 10 MG TABLET PO (20:52)
[2023-01-23] MEDS: Gabapentin 600 MG TABLET 1200 MG PO (20:52)
[2023-01-23] MEDS: traZODone HCL 50 MG TABLET PO (20:52)
[2023-01-23] MEDS: Divalproex Sodium 500 MG TABLET.DR PO (21:25)
--- NOTE | 2023-01-23 23:05 | PM.EVENT ---
Event Note Date of Service: 01/27/23 Event Note: Hospitalist consult for patient with uncontrolled diabetes. Patient has had persistently elevated glucose levels in the 300s, currently on Trulicity, sliding scale correction, and Lantus 44 units at bedtime. Will add 5 units Lispro scheduled with meals, but patient's persistently high glucose seems more of a diet-control issue. Patient seen and evaluated this night during dinner where she was seen drinking apple juice and eating ice cream. Patient currently on diabetic diet, but needs to avoid snacking on high sugar items in order to regain glycemic control. Will continue to follow for now to monitor glucose levels. Time Spent With Patient Time: Total time managing care of this patient today ____ minutes.
[2023-01-24] MEDS: Levothyroxine Sodium 75 MCG TABLET PO (06:23)
[2023-01-24 06:38] LABS: Glucose, Whole Blood 134 mg/dL (60-115)
[2023-01-24 08:00] VITALS: PULSE 65; RESP 18; TEMP 36.2; O2SAT 95
[2023-01-24] MEDS: Insulin Lispro 100 UNIT/ML 3 ML VIAL SUBCUT ×7 (08:00→20:31)
[2023-01-24] MEDS: Divalproex Sodium 250 MG TABLET.DR PO (08:01)
[2023-01-24] MEDS: Clopidogrel Bisulfate 75 MG TABLET PO (08:01)
[2023-01-24] MEDS: Escitalopram Oxalate 10 MG TABLET PO (08:01)
[2023-01-24] MEDS: risperiDONE 0.5 MG TABLET PO ×2 (08:01→20:32)
[2023-01-24] MEDS: Metoprolol Tartrate 25 MG TABLET PO (08:02)
[2023-01-24] MEDS: Memantine HCl 10 MG TABLET PO ×2 (11:20→20:32)
[2023-01-24] MEDS: Lidocaine 4 % Patch ADH..PATCH 1 PATCH TRANSDERMA (11:20)
[2023-01-24 11:29] LABS: Glucose, Whole Blood 301 mg/dL (60-115)
[2023-01-24 16:39] LABS: Glucose, Whole Blood 267 mg/dL (60-115)
--- NOTE | 2023-01-24 19:34 | P.PNPSI_ITS ---
Subjective Subjective Date of Service: 01/24/23 Reason For Visit: Depression Subjective Notes: Conditional Voluntary Interim History: Pt continues to report doing well. She is pleasant on approach and social with select peers. She has not shown any signs of aggression towards self or others. She denies SI/HI. No signs of psychosis or delusions. She denies symptoms of depression or anxiety. She reports feeling safe here on the unit. She is social with select peers. Takes medications as prescribed Review of Systems Review of Systems Pt denies chest pain. Pt denies feeling dizzy Denies SOB Denies coughing No constipation or diarrhea Pt reports neck pain Yes all other systems are reviewed and are negative Mental Status Exam Mental Status Exam Narrative: Appearance: wearing hospital gown, fair hygiene, in NAD Behavior: cooperative Psychomotor: no agitation noted Speech: clear, normal rate/rhythm/volume, spontaneous TP: linear TC: no overt delusional content noted or reported, pt upset about being brought to hospital against her will Mood: okay Affect: congruent SI: denies HI: denies VH/AH: none Delusions: none Insight/judgment: poor x 2. in that she has no insight into how her behaviors affect others and her placement at [facility]. Memory/cog: pt alert, oriented to place, situation, month, date and year. Diagnostics Vital Signs (24Hr): Vital Signs - 24 hr 01/24/23 08:00 Temperature 97.1 F Pulse Rate 65 Respiratory Rate 18 Pulse Oximetry 95 Oxygen Delivery Method Room Air BMI result Body Mass Index 27.8 Labs 01/07/23 17:49 01/07/23 17:49 Labs: Laboratory Results - last 48 hr 01/22/23 01/23/23 01/23/23 19:43 06:18 11:25 POC Glucose 345 H 175 H 312 H 01/23/23 01/23/23 01/24/23 16:47 19:53 06:24 POC Glucose 260 H 310 H 134 H 01/24/23 01/24/23 11:26 16:35 POC Glucose 301 H 267 H Medications Medications Current Medications Acetaminophen (Acetaminophen 325 Mg Tablet) 650 mg PO Q6H PRN PRN Reason: Headache/Pain Mild Scale (1-3) Last Admin: 01/21/23 04:21 Dose: 650 mg Al Hydroxide/Mg Hydroxide (Magnesium Hydrox/Alum Hydrox 30 Ml Oral.Susp) 30 ml PO Q6H PRN PRN Reason: Heartburn/Nausea Atorvastatin Calcium (Atorvastatin Calcium 20 Mg Tablet) 20 mg PO BEDTIME [facility] Last Admin: 01/23/23 20:51 Dose: 20 mg Bisacodyl (Bisacodyl 10 Mg Supp.Rect) 10 mg [place] DAILY PRN PRN Reason: Constipation Clopidogrel Bisulfate (Clopidogrel Bisulfate 75 Mg Tablet) 75 mg PO DAILY [facility] Last Admin: 01/24/23 08:01 Dose: 75 mg Divalproex Sodium (Divalproex Sodium 500 Mg Tablet.) 500 mg PO BEDTIME [facility] Last Admin: 01/23/23 21:25 Dose: 500 mg Divalproex Sodium (Divalproex Sodium 250 Mg Tablet.) 250 mg PO DAILY [facility] Last Admin: 01/24/23 08:01 Dose: 250 mg Donepezil HCl (Donepezil Hcl 10 Mg Tablet) 10 mg PO BEDTIME [facility] Last Admin: 01/23/23 20:52 Dose: 10 mg Escitalopram Oxalate (Escitalopram Oxalate 10 Mg Tablet) 10 mg PO DAILY [facility] Last Admin: 01/24/23 08:01 Dose: 10 mg Gabapentin (Gabapentin 600 Mg Tablet) 1,200 mg PO BEDTIME [facility] Last Admin: 01/23/23 20:52 Dose: 1,200 mg Glucagon (Glucagon Hcl 1 Mg Vial) 1 mg SUBCUT Q20M PRN PRN Reason: BG <70 AND UNRESPONSIVE Glucose (Glucose Gel 15 Gm Gel..Gram.) 15 gm PO Q15M PRN PRN Reason: BG <70 AND RESPONSIVE Insulin Glargine (Insulin Glargine,Hum.Rec.Anlog 100 Unit/Ml 10 Ml Vial) 44 unit SUBCUT BEDTIME [facility] Last Admin: 01/23/23 20:50 Dose: 44 unit Insulin Human Lispro (Insulin Lispro 100 Unit/Ml 3 Ml Vial) 0 unit SUBCUT QIDACHS [facility]; Protocol Last Admin: 01/24/23 16:49 Dose: 6 unit Insulin Human Lispro (Insulin Lispro 100 Unit/Ml 3 Ml Vial) 5 unit SUBCUT QIDACHS [facility] Last Admin: 01/24/23 16:50 Dose: 5 unit Levothyroxine Sodium (Levothyroxine Sodium 75 Mcg Tablet) 75 mcg PO DAILY@0630 [facility] Last Admin: 01/24/23 06:23 Dose: 75 mcg Lidocaine (Lidocaine 4 % Patch Adh..Patch) 1 patch TRANSDERMA DAILY [facility]; Protocol Last Admin: 01/24/23 11:20 Dose: 1 patch Loperamide HCl (Loperamide Hcl 2 Mg Capsule) 2 mg PO Q6H PRN PRN Reason: diarrhea Last Admin: 01/17/23 03:35 Dose: 2 mg Magnesium Hydroxide (Milk Of Magnesia 30 Ml Oral.Susp) 30 ml PO DAILY PRN PRN Reason: Constipation Magnesium Hydroxide (Milk Of Magnesia 30 Ml Oral.Susp) 30 ml PO DAILY PRN PRN Reason: Constipation Memantine (Memantine Hcl 10 Mg Tablet) 10 mg PO BID [facility] Last Admin: 01/24/23 11:20 Dose: 10 mg Metoprolol Tartrate (Metoprolol Tartrate 25 Mg Tablet) 25 mg PO DAILY [facility]; Protocol Last Admin: 01/24/23 08:02 Dose: 25 mg Quetiapine Fumarate (Quetiapine Fumarate 50 Mg Tablet) 50 mg PO Q6H PRN PRN Reason: agitation Last Admin: 01/08/23 23:46 Dose: 50 mg Risperidone (Risperidone 0.5 Mg Tablet) 0.5 mg PO BID [facility] Last Admin: 01/24/23 08:01 Dose: 0.5 mg Sodium Biphosphate/Sodium Phosphate (Sodium Phosphate,[place]-Dibasic 133 Ml Enema) 133 ml [place] DAILY PRN PRN Reason: Constipation Trazodone HCl (Trazodone Hcl 50 Mg Tablet) 50 mg PO BEDTIME MRX1 [facility] Last Admin: 01/23/23 21:50 Dose: Not Given Valsartan (Valsartan 80 Mg Tablet) 80 mg PO BEDTIME [facility]; Protocol Last Admin: 01/23/23 20:51 Dose: 80 mg Allergies Allergies Allergy/AdvReac Type Severity Reaction Status Date / Time aspirin [ASPIRIN] Allergy Unknown UNKNOWN Verified 01/01/23 09:43 Assessment & Plan Assessment & Plan (1) Major neurocognitive disorder: Status: Acute Code(s): F03.90 - Unspecified dementia, unspecified severity, without behavioral disturbance, psychotic disturbance, mood disturbance, and anxiety (2) Mood disorder: Status: Acute Code(s): F39 - Unspecified mood [affective] disorder Plan Ms. Landis is a 67 year-old woman with hx of Mood Disorder (untreated for most of her life) and neurocognitive disorder who was brought via EMS from [facility] due to increase verbal aggression towards roommate and one of their staff. Pt is known to this commercial insurance underwriter through previous assessment for similar presentation. Pt presents as calmer, she does admit to being verbally abusive, although denies any intent to harm self or others. She does lack the insight into how her behaviors affect others and her relationships with others. This tendency to have difficulty seeing other people's need per daughter has been life long. Pt presents with tendency to be irritable, at times explosive but not physically aggressive. She was started back in September on low dose of seroquel but no further medication adjustments have been made to manage these symptoms, which are disruptive but not life threatening nor at imminent risk of harm to self or others. As consequence of minimal intervention in the community, pt has had more frequent ED visits here and at [facility]. We discussed risks, benefits and alternative treatment options, pt agrees to start mood stabilizer for impulsive, explosive behaviors. We also discussed switching seroquel to risperidone. Pt is orientation has been intact all along. PLAN 01/20 schedule trazodone 50mg po qhs for sleep. 01/21 continue tx. depakote levels scheduled for tomorrow AM with ammonia levels. 01/22 trough depakote level 75, ammonia 41. continue tx. continue tx 01/24 continue tx. Reason for continued inpatient stay Substantial Risk for: inability to function Time Spent With Patient Time: Total time managing care of this patient today ____ minutes.
[2023-01-24 20:05] VITALS: BP 141/61; PULSE 66; RESP 18; TEMP 36.6; O2SAT 93
[2023-01-24 20:24] LABS: Glucose, Whole Blood 277 mg/dL (60-115)
[2023-01-24] MEDS: traZODone HCL 50 MG TABLET PO ×2 (20:32→21:27)
[2023-01-24] MEDS: Atorvastatin Calcium 20 MG TABLET PO (20:32)
[2023-01-24] MEDS: Divalproex Sodium 500 MG TABLET.DR PO (20:32)
[2023-01-24] MEDS: Insulin Glargine,Hum.rec.anlog 100 UNIT/ML 10 ML VIAL 44 UNIT SUBCUT (20:32)
[2023-01-24] MEDS: Gabapentin 600 MG TABLET 1200 MG PO (20:32)
[2023-01-24] MEDS: Donepezil HCl 10 MG TABLET PO (20:33)
[2023-01-24] MEDS: Valsartan 80 MG TABLET PO (20:33)
[2023-01-25] MEDS: Levothyroxine Sodium 75 MCG TABLET PO (06:20)
[2023-01-25 06:56] LABS: Glucose, Whole Blood 141 mg/dL (60-115)
[2023-01-25 08:20] VITALS: BP 135/63; PULSE 66; RESP 18; TEMP 36.2; O2SAT 100
[2023-01-25] MEDS: Escitalopram Oxalate 10 MG TABLET PO (09:07)
[2023-01-25] MEDS: Memantine HCl 10 MG TABLET PO ×2 (09:07→20:54)
[2023-01-25] MEDS: Insulin Lispro 100 UNIT/ML 3 ML VIAL SUBCUT ×7 (09:08→20:55)
[2023-01-25] MEDS: Divalproex Sodium 250 MG TABLET.DR PO (09:08)
[2023-01-25] MEDS: Metoprolol Tartrate 25 MG TABLET PO (09:08)
[2023-01-25] MEDS: Clopidogrel Bisulfate 75 MG TABLET PO (09:08)
[2023-01-25] MEDS: risperiDONE 0.5 MG TABLET PO ×2 (09:08→20:54)
[2023-01-25] MEDS: Lidocaine 4 % Patch ADH..PATCH 1 PATCH TRANSDERMA (09:08)
[2023-01-25 11:26] LABS: Glucose, Whole Blood 296 mg/dL (60-115)
--- NOTE | 2023-01-25 11:32 | HO.PSYCHPN ---
Subjective Subjective Date of Service: 01/25/23 Reason For Visit: Depression Interim History: Pt continues to report doing well. She is pleasant on approach and social with select peers. She has not shown any signs of aggression towards self or others. She denies SI/HI. No signs of psychosis or delusions. She denies symptoms of depression or anxiety. She reports feeling safe here on the unit. She is social with select peers. Takes medications as prescribed Review of Systems Review of Systems Pt denies chest pain. Pt denies feeling dizzy Denies SOB Denies coughing No constipation or diarrhea Pt reports neck pain Yes all other systems are reviewed and are negative Mental Status Exam Mental Status Exam Narrative: Appearance: wearing hospital gown, fair hygiene, in NAD Behavior: cooperative Psychomotor: no agitation noted Speech: clear, normal rate/rhythm/volume, spontaneous TP: linear TC: no overt delusional content noted or reported, pt upset about being brought to hospital against her will Mood: okay Affect: congruent SI: denies HI: denies VH/AH: none Delusions: none Insight/judgment: poor x 2. in that she has no insight into how her behaviors affect others and her placement at [facility]. Memory/cog: pt alert, oriented to place, situation, month, date and year. Diagnostics Vital Signs (24Hr): Vital Signs - 24 hr 01/24/23 20:05 01/25/23 08:20 Temperature 97.9 F 97.1 F Pulse Rate 66 66 Respiratory Rate 18 18 Blood Pressure 141/61 H 135/63 Pulse Oximetry 93 100 Oxygen Delivery Method Room Air Room Air BMI result Body Mass Index 27.8 Labs 01/07/23 17:49 01/07/23 17:49 Labs: Laboratory Results - last 48 hr 01/23/23 01/23/23 01/24/23 16:47 19:53 06:24 POC Glucose 260 H 310 H 134 H 01/24/23 01/24/23 01/24/23 11:26 16:35 20:21 POC Glucose 301 H 267 H 277 H 01/25/23 01/25/23 06:19 11:21 POC Glucose 141 H 296 H Medications Medications Current Medications Acetaminophen (Acetaminophen 325 Mg Tablet) 650 mg PO Q6H PRN PRN Reason: Headache/Pain Mild Scale (1-3) Last Admin: 01/21/23 04:21 Dose: 650 mg Al Hydroxide/Mg Hydroxide (Magnesium Hydrox/Alum Hydrox 30 Ml Oral.Susp) 30 ml PO Q6H PRN PRN Reason: Heartburn/Nausea Atorvastatin Calcium (Atorvastatin Calcium 20 Mg Tablet) 20 mg PO BEDTIME [facility] Last Admin: 01/24/23 20:32 Dose: 20 mg Bisacodyl (Bisacodyl 10 Mg Supp.Rect) 10 mg ND DAILY PRN PRN Reason: Constipation Clopidogrel Bisulfate (Clopidogrel Bisulfate 75 Mg Tablet) 75 mg PO DAILY [facility] Last Admin: 01/25/23 09:08 Dose: 75 mg Divalproex Sodium (Divalproex Sodium 500 Mg Tablet.) 500 mg PO BEDTIME [facility] Last Admin: 01/24/23 20:32 Dose: 500 mg Divalproex Sodium (Divalproex Sodium 250 Mg Tablet.) 250 mg PO DAILY [facility] Last Admin: 01/25/23 09:08 Dose: 250 mg Donepezil HCl (Donepezil Hcl 10 Mg Tablet) 10 mg PO BEDTIME [facility] Last Admin: 01/24/23 20:33 Dose: 10 mg Escitalopram Oxalate (Escitalopram Oxalate 10 Mg Tablet) 10 mg PO DAILY [facility] Last Admin: 01/25/23 09:07 Dose: 10 mg Gabapentin (Gabapentin 600 Mg Tablet) 1,200 mg PO BEDTIME [facility] Last Admin: 01/24/23 20:32 Dose: 1,200 mg Glucagon (Glucagon Hcl 1 Mg Vial) 1 mg SUBCUT Q20M PRN PRN Reason: BG <70 AND UNRESPONSIVE Glucose (Glucose Gel 15 Gm Gel..Gram.) 15 gm PO Q15M PRN PRN Reason: BG <70 AND RESPONSIVE Insulin Glargine (Insulin Glargine,Hum.Rec.Anlog 100 Unit/Ml 10 Ml Vial) 44 unit SUBCUT BEDTIME [facility] Last Admin: 01/24/23 20:32 Dose: 44 unit Insulin Human Lispro (Insulin Lispro 100 Unit/Ml 3 Ml Vial) 0 unit SUBCUT QIDACHS [facility]; Protocol Last Admin: 01/25/23 07:57 Dose: Not Given Insulin Human Lispro (Insulin Lispro 100 Unit/Ml 3 Ml Vial) 5 unit SUBCUT QIDAS [facility] Last Admin: 01/25/23 09:08 Dose: 5 unit Levothyroxine Sodium (Levothyroxine Sodium 75 Mcg Tablet) 75 mcg PO DAILY@0630 [facility] Last Admin: 01/25/23 06:20 Dose: 75 mcg Lidocaine (Lidocaine 4 % Patch Adh..Patch) 1 patch TRANSDERMA DAILY [facility]; Protocol Last Admin: 01/25/23 09:08 Dose: 1 patch Loperamide HCl (Loperamide Hcl 2 Mg Capsule) 2 mg PO Q6H PRN PRN Reason: diarrhea Last Admin: 01/17/23 03:35 Dose: 2 mg Magnesium Hydroxide (Milk Of Magnesia 30 Ml Oral.Susp) 30 ml PO DAILY PRN PRN Reason: Constipation Magnesium Hydroxide (Milk Of Magnesia 30 Ml Oral.Susp) 30 ml PO DAILY PRN PRN Reason: Constipation Memantine (Memantine Hcl 10 Mg Tablet) 10 mg PO BID [facility] Last Admin: 01/25/23 09:07 Dose: 10 mg Metoprolol Tartrate (Metoprolol Tartrate 25 Mg Tablet) 25 mg PO DAILY [facility]; Protocol Last Admin: 01/25/23 09:08 Dose: 25 mg Quetiapine Fumarate (Quetiapine Fumarate 50 Mg Tablet) 50 mg PO Q6H PRN PRN Reason: agitation Last Admin: 01/08/23 23:46 Dose: 50 mg Risperidone (Risperidone 0.5 Mg Tablet) 0.5 mg PO BID [facility] Last Admin: 01/25/23 09:08 Dose: 0.5 mg Sodium Biphosphate/Sodium Phosphate (Sodium Phosphate,[place]-Dibasic 133 Ml Enema) 133 ml ND DAILY PRN PRN Reason: Constipation Trazodone HCl (Trazodone Hcl 50 Mg Tablet) 50 mg PO BEDTIME MRX1 [facility] Last Admin: 01/24/23 21:27 Dose: 50 mg Valsartan (Valsartan 80 Mg Tablet) 80 mg PO BEDTIME [facility]; Protocol Last Admin: 01/24/23 20:33 Dose: 80 mg Allergies Allergies Allergy/AdvReac Type Severity Reaction Status Date / Time aspirin [ASPIRIN] Allergy Unknown UNKNOWN Verified 01/01/23 09:43 Assessment & Plan Assessment & Plan (1) Major neurocognitive disorder: Status: Acute Code(s): F03.90 - Unspecified dementia, unspecified severity, without behavioral disturbance, psychotic disturbance, mood disturbance, and anxiety (2) Mood disorder: Status: Acute Code(s): F39 - Unspecified mood [affective] disorder Plan Ms. Landis is a 67 year-old woman with hx of Mood Disorder (untreated for most of her life) and neurocognitive disorder who was brought via EMS from [facility] due to increase verbal aggression towards roommate and one of their staff. Pt is known to this commercial real estate underwriter through previous assessment for similar presentation. Pt presents as calmer, she does admit to being verbally abusive, although denies any intent to harm self or others. She does lack the insight into how her behaviors affect others and her relationships with others. This tendency to have difficulty seeing other people's need per daughter has been life long. Pt presents with tendency to be irritable, at times explosive but not physically aggressive. She was started back in September on low dose of seroquel but no further medication adjustments have been made to manage these symptoms, which are disruptive but not life threatening nor at imminent risk of harm to self or others. As consequence of minimal intervention in the community, pt has had more frequent ED visits here and at [facility]. We discussed risks, benefits and alternative treatment options, pt agrees to start mood stabilizer for impulsive, explosive behaviors. We also discussed switching seroquel to risperidone. Pt is orientation has been intact all along. PLAN 01/20 schedule trazodone 50mg po qhs for sleep. 01/21 continue tx. depakote levels scheduled for tomorrow AM with ammonia levels. 01/22 trough depakote level 75, ammonia 41. continue tx. continue tx 01/24 continue tx. 01/25 continue tx. Informed Consent: understands Reason for continued inpatient stay Substantial Risk for: inability to function Time Spent With Patient Time: Total time managing care of this patient today ____ minutes.
[2023-01-25 16:34] LABS: Glucose, Whole Blood 235 mg/dL (60-115)
[2023-01-25 18:00] VITALS: BP 150/70; PULSE 71; RESP 18; TEMP 36.2; O2SAT 98
[2023-01-25 20:14] LABS: Glucose, Whole Blood 315 mg/dL (60-115)
[2023-01-25] MEDS: Valsartan 80 MG TABLET PO (20:53)
[2023-01-25] MEDS: Gabapentin 600 MG TABLET 1200 MG PO (20:53)
[2023-01-25] MEDS: Donepezil HCl 10 MG TABLET PO (20:54)
[2023-01-25] MEDS: traZODone HCL 50 MG TABLET PO ×2 (20:54→21:03)
[2023-01-25] MEDS: Divalproex Sodium 500 MG TABLET.DR PO (20:54)
[2023-01-25] MEDS: Atorvastatin Calcium 20 MG TABLET PO (20:54)
[2023-01-25] MEDS: Insulin Glargine,Hum.rec.anlog 100 UNIT/ML 10 ML VIAL 44 UNIT SUBCUT (20:55)
[2023-01-26 06:00] VITALS: BP 126/76; PULSE 66; RESP 18; TEMP 36.5; O2SAT 97
[2023-01-26] MEDS: Levothyroxine Sodium 75 MCG TABLET PO (06:26)
[2023-01-26 06:35] LABS: Glucose, Whole Blood 238 mg/dL (60-115)
[2023-01-26 08:01] LABS: Glucose, Whole Blood 222 mg/dL (60-115)
[2023-01-26] MEDS: Lidocaine 4 % Patch ADH..PATCH 1 PATCH TRANSDERMA (08:11)
[2023-01-26] MEDS: Insulin Lispro 100 UNIT/ML 3 ML VIAL SUBCUT ×7 (08:11→20:46)
[2023-01-26] MEDS: risperiDONE 0.5 MG TABLET PO ×2 (08:12→20:42)
[2023-01-26] MEDS: Clopidogrel Bisulfate 75 MG TABLET PO (08:12)
[2023-01-26] MEDS: Divalproex Sodium 250 MG TABLET.DR PO (08:12)
[2023-01-26] MEDS: Metoprolol Tartrate 25 MG TABLET PO (08:12)
[2023-01-26] MEDS: Escitalopram Oxalate 10 MG TABLET PO (08:12)
[2023-01-26] MEDS: Memantine HCl 10 MG TABLET PO ×2 (08:12→20:42)
[2023-01-26 11:09] LABS: Glucose, Whole Blood 313 mg/dL (60-115)
--- NOTE | 2023-01-26 14:52 | P.PNPSI_ITS ---
Subjective Subjective Date of Service: 01/26/23 Reason For Visit: Depression Interim History: Pt continues to report doing well. She is pleasant on approach and social with select peers. She has not shown any signs of aggression towards self or others. She denies SI/HI. No signs of psychosis or delusions. She denies symptoms of depression or anxiety. She reports feeling safe here on the unit. She is social with select peers. Takes medications as prescribed Review of Systems Review of Systems Pt denies chest pain. Pt denies feeling dizzy Denies SOB Denies coughing No constipation or diarrhea Pt reports neck pain Yes all other systems are reviewed and are negative Mental Status Exam Mental Status Exam Narrative: Appearance: wearing hospital gown, fair hygiene, in NAD Behavior: cooperative Psychomotor: no agitation noted Speech: clear, normal rate/rhythm/volume, spontaneous TP: linear TC: no overt delusional content noted or reported, pt upset about being brought to hospital against her will Mood: okay Affect: congruent SI: denies HI: denies VH/AH: none Delusions: none Insight/judgment: fair x 2. Memory/cog: alert, oriented x 3. Diagnostics Vital Signs (24Hr): Vital Signs - 24 hr 01/25/23 18:00 01/26/23 06:00 Temperature 97.2 F 97.7 F Pulse Rate 71 66 Respiratory Rate 18 18 Blood Pressure 150/70 H 126/76 Pulse Oximetry 98 97 Oxygen Delivery Method Room Air Room Air BMI result Body Mass Index 27.8 Labs 01/07/23 17:49 01/07/23 17:49 Labs: Laboratory Results - last 48 hr 01/24/23 01/24/23 01/25/23 16:35 20:21 06:19 POC Glucose 267 H 277 H 141 H 01/25/23 01/25/23 01/25/23 11:21 16:30 20:10 POC Glucose 296 H 235 H 315 H 01/26/23 01/26/23 01/26/23 06:29 07:54 11:05 POC Glucose 238 H 222 H 313 H Medications Medications Current Medications Acetaminophen (Acetaminophen 325 Mg Tablet) 650 mg PO Q6H PRN PRN Reason: Headache/Pain Mild Scale (1-3) Last Admin: 01/21/23 04:21 Dose: 650 mg Al Hydroxide/Mg Hydroxide (Magnesium Hydrox/Alum Hydrox 30 Ml Oral.Susp) 30 ml PO Q6H PRN PRN Reason: Heartburn/Nausea Atorvastatin Calcium (Atorvastatin Calcium 20 Mg Tablet) 20 mg PO BEDTIME COUNTS [facility]CLUDE 234 BEDS AT [facility] Last Admin: 01/25/23 20:54 Dose: 20 mg Bisacodyl (Bisacodyl 10 Mg Supp.Rect) 10 mg SC DAILY PRN PRN Reason: Constipation Clopidogrel Bisulfate (Clopidogrel Bisulfate 75 Mg Tablet) 75 mg PO DAILY [facility]S [facility]CLUDE 234 BEDS AT [facility] Last Admin: 01/26/23 08:12 Dose: 75 mg Divalproex Sodium (Divalproex Sodium 500 Mg Tablet.Dr) 500 mg PO BEDTIME COUNTS INCLUDE 234 BEDS AT THE [facility] Last Admin: 01/25/23 20:54 Dose: 500 mg Divalproex Sodium (Divalproex Sodium 250 Mg Tablet.Dr) 250 mg PO DAILY COUNTS INCLUDE 234 BEDS AT THE [facility] Last Admin: 01/26/23 08:12 Dose: 250 mg Donepezil HCl (Donepezil Hcl 10 Mg Tablet) 10 mg PO BEDTIME [facility]S INCLUDE 234 BEDS AT THE [facility] Last Admin: 01/25/23 20:54 Dose: 10 mg Escitalopram Oxalate (Escitalopram Oxalate 10 Mg Tablet) 10 mg PO DAILY [facility]S [facility]CLUDE 234 BEDS AT THE [facility] Last Admin: 01/26/23 08:12 Dose: 10 mg Gabapentin (Gabapentin 600 Mg Tablet) 1,200 mg PO BEDTIME [facility]S [facility]CLUDE 234 BEDS AT [facility] Last Admin: 01/25/23 20:53 Dose: 1,200 mg Glucagon (Glucagon Hcl 1 Mg Vial) 1 mg SUBCUT Q20M PRN PRN Reason: BG <70 AND UNRESPONSIVE Glucose (Glucose Gel 15 Gm Gel..Gram.) 15 gm PO Q15M PRN PRN Reason: BG <70 AND RESPONSIVE Insulin Glargine (Insulin Glargine,Hum.Rec.Anlog 100 Unit/Ml 10 Ml Vial) 44 unit SUBCUT BEDTIME [facility]S INCLUDE 234 BEDS AT THE [facility] Last Admin: 01/25/23 20:55 Dose: 44 unit Insulin Human Lispro (Insulin Lispro 100 Unit/Ml 3 Ml Vial) 0 unit SUBCUT QIDACHS COUNTS INCLUDE 234 BEDS AT THE [facility]; Protocol Last Admin: 01/26/23 11:36 Dose: 8 unit Insulin Human Lispro (Insulin Lispro 100 Unit/Ml 3 Ml Vial) 5 unit SUBCUT QIDACHS COUNTS INCLUDE 234 BEDS AT THE [facility] Last Admin: 01/26/23 11:36 Dose: 5 unit Levothyroxine Sodium (Levothyroxine Sodium 75 Mcg Tablet) 75 mcg PO DAILY@0630 COUNTS INCLUDE 234 BEDS AT THE [facility] Last Admin: 01/26/23 06:26 Dose: 75 mcg Lidocaine (Lidocaine 4 % Patch Adh..Patch) 1 patch TRANSDERMA DAILY [facility]; Protocol Last Admin: 01/26/23 08:11 Dose: 1 patch Loperamide HCl (Loperamide Hcl 2 Mg Capsule) 2 mg PO Q6H PRN PRN Reason: diarrhea Last Admin: 01/17/23 03:35 Dose: 2 mg Magnesium Hydroxide (Milk Of Magnesia 30 Ml Oral.Susp) 30 ml PO DAILY PRN PRN Reason: Constipation Magnesium Hydroxide (Milk Of Magnesia 30 Ml Oral.Susp) 30 ml PO DAILY PRN PRN Reason: Constipation Memantine (Memantine Hcl 10 Mg Tablet) 10 mg PO BID [facility] Last Admin: 01/26/23 08:12 Dose: 10 mg Metoprolol Tartrate (Metoprolol Tartrate 25 Mg Tablet) 25 mg PO DAILY [facility]; Protocol Last Admin: 01/26/23 08:12 Dose: 25 mg Quetiapine Fumarate (Quetiapine Fumarate 50 Mg Tablet) 50 mg PO Q6H PRN PRN Reason: agitation Last Admin: 01/08/23 23:46 Dose: 50 mg Risperidone (Risperidone 0.5 Mg Tablet) 0.5 mg PO BID [facility] Last Admin: 01/26/23 08:12 Dose: 0.5 mg Sodium Biphosphate/Sodium Phosphate (Sodium Phosphate,[place]-Dibasic 133 Ml Enema) 133 ml SC DAILY PRN PRN Reason: Constipation Trazodone HCl (Trazodone Hcl 50 Mg Tablet) 50 mg PO BEDTIME MRX1 COUNTS INCLUDE 234 BEDS AT THE [facility] Last Admin: 01/25/23 21:03 Dose: 50 mg Valsartan (Valsartan 80 Mg Tablet) 80 mg PO BEDTIME [facility]; Protocol Last Admin: 01/25/23 20:53 Dose: 80 mg Allergies Allergies Allergy/AdvReac Type Severity Reaction Status Date / Time aspirin [ASPIRIN] Allergy Unknown UNKNOWN Verified 01/01/23 09:43 Assessment & Plan Assessment & Plan (1) Major neurocognitive disorder: Status: Acute Code(s): F03.90 - Unspecified dementia, unspecified severity, without behavioral disturbance, psychotic disturbance, mood disturbance, and anxiety (2) Mood disorder: Status: Acute Code(s): F39 - Unspecified mood [affective] disorder Plan Ms. Landis is a 67 year-old woman with hx of Mood Disorder (untreated for most of her life) and neurocognitive disorder who was brought via EMS from [facility] due to increase verbal aggression towards roommate and one of their staff. Pt is known to this mortgage loan underwriter through previous assessment for similar presentation. Pt presents as calmer, she does admit to being verbally abusive, although denies any intent to harm self or others. She does lack the insight into how her behaviors affect others and her relationships with others. This tendency to have difficulty seeing other people's need per daughter has been life long. Pt presents with tendency to be irritable, at times explosive but not physically aggressive. She was started back in September on low dose of seroquel but no further medication adjustments have been made to manage these symptoms, which are disruptive but not life threatening nor at imminent risk of harm to self or others. As consequence of minimal intervention in the community, pt has had more frequent ED visits here and at [facility]. We discussed risks, benefits and alternative treatment options, pt agrees to start mood stabilizer for impulsive, explosive behaviors. We also discussed switching seroquel to risperidone. Pt is orientation has been intact all along. PLAN 01/20 schedule trazodone 50mg po qhs for sleep. 01/21 continue tx. depakote levels scheduled for tomorrow AM with ammonia levels. 01/22 trough depakote level 75, ammonia 41. continue tx. continue tx 01/24 continue tx. 01/25 continue tx. 01/26 continue tx. Reason for continued inpatient stay Substantial Risk for: inability to function Time Spent With Patient Time: Total time managing care of this patient today ____ minutes.
[2023-01-26 16:16] LABS: Glucose, Whole Blood 141 mg/dL (60-115)
[2023-01-26 19:40] VITALS: BP 124/67; PULSE 66; RESP 18; TEMP 36.3; O2SAT 97
[2023-01-26 20:06] LABS: Glucose, Whole Blood 234 mg/dL (60-115)
[2023-01-26] MEDS: Gabapentin 600 MG TABLET 1200 MG PO (20:41)
[2023-01-26] MEDS: traZODone HCL 50 MG TABLET PO (20:41)
[2023-01-26] MEDS: Valsartan 80 MG TABLET PO (20:41)
[2023-01-26] MEDS: Donepezil HCl 10 MG TABLET PO (20:42)
[2023-01-26] MEDS: Divalproex Sodium 500 MG TABLET.DR PO (20:42)
[2023-01-26] MEDS: Atorvastatin Calcium 20 MG TABLET PO (20:42)
[2023-01-26] MEDS: Insulin Glargine,Hum.rec.anlog 100 UNIT/ML 10 ML VIAL 44 UNIT SUBCUT (20:43)
[2023-01-27] MEDS: Levothyroxine Sodium 75 MCG TABLET PO (05:47)
[2023-01-27 06:37] LABS: Glucose, Whole Blood 147 mg/dL (60-115)
[2023-01-27 08:00] VITALS: BP 108/59; PULSE 85; RESP 18; TEMP 36.1; O2SAT 97
[2023-01-27] MEDS: risperiDONE 0.5 MG TABLET PO ×2 (08:04→20:25)
[2023-01-27] MEDS: Divalproex Sodium 250 MG TABLET.DR PO (08:04)
[2023-01-27] MEDS: Memantine HCl 10 MG TABLET PO ×2 (08:04→20:25)
[2023-01-27] MEDS: Clopidogrel Bisulfate 75 MG TABLET PO (08:04)
[2023-01-27] MEDS: Metoprolol Tartrate 25 MG TABLET PO (08:04)
[2023-01-27] MEDS: Insulin Lispro 100 UNIT/ML 3 ML VIAL SUBCUT ×7 (08:04→20:24)
[2023-01-27] MEDS: Escitalopram Oxalate 10 MG TABLET PO (08:04)
[2023-01-27] MEDS: Lidocaine 4 % Patch ADH..PATCH 1 PATCH TRANSDERMA (08:11)
[2023-01-27 11:36] LABS: Glucose, Whole Blood 255 mg/dL (60-115)
--- NOTE | 2023-01-27 14:53 | HO.PSYCHPN ---
Subjective Subjective Date of Service: 01/27/23 Reason For Visit: Depression Interim History: seen with production maintenance mechanic. no question, complaints requests. per staff, no notable events or behaviors. Mental Status Exam Mental Status Exam Narrative: Appearance: wearing street clothes, fair hygiene, in NAD Behavior: cooperative Psychomotor: no agitation noted Speech: clear, normal rate/rhythm/volume, spontaneous TP: linear TC: no overt delusional content noted or reported Mood: okay Affect: congruent SI: none expressed HI: none expressed VH/AH: none expressed Delusions: none expressed Insight/judgment: fair x 2. Memory/cog: alert, oriented x 3. Diagnostics Vital Signs (24Hr): Vital Signs - 24 hr 01/26/23 19:40 01/27/23 08:00 Temperature 97.4 F 97.0 F Pulse Rate 66 85 Respiratory Rate 18 18 Blood Pressure 124/67 108/59 L Pulse Oximetry 97 97 Oxygen Delivery Method Room Air Room Air BMI result Body Mass Index 27.8 Labs 01/07/23 17:49 01/07/23 17:49 Labs: Laboratory Results - last 48 hr 01/25/23 01/25/23 01/26/23 16:30 20:10 06:29 POC Glucose 235 H 315 H 238 H 01/26/23 01/26/23 01/26/23 07:54 11:05 16:04 POC Glucose 222 H 313 H 141 H 01/26/23 01/27/23 01/27/23 20:02 06:32 11:31 POC Glucose 234 H 147 H 255 H Medications Medications Current Medications Acetaminophen (Acetaminophen 325 Mg Tablet) 650 mg PO Q6H PRN PRN Reason: Headache/Pain Mild Scale (1-3) Last Admin: 01/21/23 04:21 Dose: 650 mg Al Hydroxide/Mg Hydroxide (Magnesium Hydrox/Alum Hydrox 30 Ml Oral.Susp) 30 ml PO Q6H PRN PRN Reason: Heartburn/Nausea Atorvastatin Calcium (Atorvastatin Calcium 20 Mg Tablet) 20 mg PO BEDTIME REPLACED BY [facility] Last Admin: 01/26/23 20:42 Dose: 20 mg Bisacodyl (Bisacodyl 10 Mg Supp.Rect) 10 mg [place] DAILY PRN PRN Reason: Constipation Clopidogrel Bisulfate (Clopidogrel Bisulfate 75 Mg Tablet) 75 mg PO DAILY REPLACED BY [facility] Last Admin: 01/27/23 08:04 Dose: 75 mg Divalproex Sodium (Divalproex Sodium 500 Mg Tablet.) 500 mg PO BEDTIME REPLACED BY [facility] Last Admin: 01/26/23 20:42 Dose: 500 mg Divalproex Sodium (Divalproex Sodium 250 Mg Tablet.) 250 mg PO DAILY REPLACED BY [facility] Last Admin: 01/27/23 08:04 Dose: 250 mg Donepezil HCl (Donepezil Hcl 10 Mg Tablet) 10 mg PO BEDTIME REPLACED BY [facility] Last Admin: 01/26/23 20:42 Dose: 10 mg Escitalopram Oxalate (Escitalopram Oxalate 10 Mg Tablet) 10 mg PO DAILY REPLACED BY [facility] Last Admin: 01/27/23 08:04 Dose: 10 mg Gabapentin (Gabapentin 600 Mg Tablet) 1,200 mg PO BEDTIME REPLACED BY [facility] Last Admin: 01/26/23 20:41 Dose: 1,200 mg Glucagon (Glucagon Hcl 1 Mg Vial) 1 mg SUBCUT Q20M PRN PRN Reason: BG <70 AND UNRESPONSIVE Glucose (Glucose Gel 15 Gm Gel..Gram.) 15 gm PO Q15M PRN PRN Reason: BG <70 AND RESPONSIVE Insulin Glargine (Insulin Glargine,Hum.Rec.Anlog 100 Unit/Ml 10 Ml Vial) 44 unit SUBCUT BEDTIME REPLACED BY [facility] Last Admin: 01/26/23 20:43 Dose: 44 unit Insulin Human Lispro (Insulin Lispro 100 Unit/Ml 3 Ml Vial) 0 unit SUBCUT QIDACHS REPLACED BY [facility]; Protocol Last Admin: 01/27/23 12:01 Dose: 6 unit Insulin Human Lispro (Insulin Lispro 100 Unit/Ml 3 Ml Vial) 5 unit SUBCUT QIDACHS REPLACED BY [facility] Last Admin: 01/27/23 12:02 Dose: 5 unit Levothyroxine Sodium (Levothyroxine Sodium 75 Mcg Tablet) 75 mcg PO DAILY@0630 REPLACED BY [facility] Last Admin: 01/27/23 05:47 Dose: 75 mcg Lidocaine (Lidocaine 4 % Patch Adh..Patch) 1 patch TRANSDERMA DAILY REPLACED BY [facility]; Protocol Last Admin: 01/27/23 08:11 Dose: 1 patch Loperamide HCl (Loperamide Hcl 2 Mg Capsule) 2 mg PO Q6H PRN PRN Reason: diarrhea Last Admin: 01/17/23 03:35 Dose: 2 mg Magnesium Hydroxide (Milk Of Magnesia 30 Ml Oral.Susp) 30 ml PO DAILY PRN PRN Reason: Constipation Magnesium Hydroxide (Milk Of Magnesia 30 Ml Oral.Susp) 30 ml PO DAILY PRN PRN Reason: Constipation Memantine (Memantine Hcl 10 Mg Tablet) 10 mg PO BID REPLACED BY [facility] Last Admin: 01/27/23 08:04 Dose: 10 mg Metoprolol Tartrate (Metoprolol Tartrate 25 Mg Tablet) 25 mg PO DAILY REPLACED BY [facility]; Protocol Last Admin: 01/27/23 08:04 Dose: 25 mg Quetiapine Fumarate (Quetiapine Fumarate 50 Mg Tablet) 50 mg PO Q6H PRN PRN Reason: agitation Last Admin: 01/08/23 23:46 Dose: 50 mg Risperidone (Risperidone 0.5 Mg Tablet) 0.5 mg PO BID REPLACED BY [facility] Last Admin: 01/27/23 08:04 Dose: 0.5 mg Sodium Biphosphate/Sodium Phosphate (Sodium Phosphate,[place]-Dibasic 133 Ml Enema) 133 ml MI DAILY PRN PRN Reason: Constipation Trazodone HCl (Trazodone Hcl 50 Mg Tablet) 50 mg PO BEDTIME MRX1 REPLACED BY [facility] Last Admin: 01/26/23 22:14 Dose: Not Given Valsartan (Valsartan 80 Mg Tablet) 80 mg PO BEDTIME REPLACED BY [facility]; Protocol Last Admin: 01/26/23 20:41 Dose: 80 mg Allergies Allergies Allergy/AdvReac Type Severity Reaction Status Date / Time aspirin [ASPIRIN] Allergy Unknown UNKNOWN Verified 01/01/23 09:43 Assessment & Plan Assessment & Plan (1) Major neurocognitive disorder: Status: Acute Code(s): F03.90 - Unspecified dementia, unspecified severity, without behavioral disturbance, psychotic disturbance, mood disturbance, and anxiety (2) Mood disorder: Status: Acute Code(s): F39 - Unspecified mood [affective] disorder Plan Ms. Landis is a 67 year-old woman with hx of Mood Disorder (untreated for most of her life) and neurocognitive disorder who was brought via EMS from [facility] due to increase verbal aggression towards roommate and one of their staff. Pt is known to this comic book writer through previous assessment for similar presentation. Pt presents as calmer, she does admit to being verbally abusive, although denies any intent to harm self or others. She does lack the insight into how her behaviors affect others and her relationships with others. This tendency to have difficulty seeing other people's need per daughter has been life long. Pt presents with tendency to be irritable, at times explosive but not physically aggressive. She was started back in September on low dose of seroquel but no further medication adjustments have been made to manage these symptoms, which are disruptive but not life threatening nor at imminent risk of harm to self or others. As consequence of minimal intervention in the community, pt has had more frequent ED visits here and at [facility]. We discussed risks, benefits and alternative treatment options, pt agrees to start mood stabilizer for impulsive, explosive behaviors. We also discussed switching seroquel to risperidone. Pt is orientation has been intact all along. PLAN 01/20 schedule trazodone 50mg po qhs for sleep. 01/21 continue tx. depakote levels scheduled for tomorrow AM with ammonia levels. 01/22 trough depakote level 75, ammonia 41. continue tx. continue tx 01/24 continue tx. 01/25 continue tx. 01/26 continue tx. 01/27: continue current mgmt. Reason for continued inpatient stay Substantial Risk for: inability to function Time Spent With Patient Time: Total time managing care of this patient today ____ minutes.
[2023-01-27 16:35] LABS: Glucose, Whole Blood 292 mg/dL (60-115)
[2023-01-27 18:00] VITALS: BP 122/60; PULSE 67; RESP 16; TEMP 36.6; O2SAT 97
[2023-01-27 20:08] LABS: Glucose, Whole Blood 186 mg/dL (60-115)
[2023-01-27] MEDS: Insulin Glargine,Hum.rec.anlog 100 UNIT/ML 10 ML VIAL 44 UNIT SUBCUT (20:23)
[2023-01-27] MEDS: Atorvastatin Calcium 20 MG TABLET PO (20:25)
[2023-01-27] MEDS: Valsartan 80 MG TABLET PO (20:25)
[2023-01-27] MEDS: Divalproex Sodium 500 MG TABLET.DR PO (20:25)
[2023-01-27] MEDS: Gabapentin 600 MG TABLET 1200 MG PO (20:25)
[2023-01-27] MEDS: traZODone HCL 50 MG TABLET PO (20:25)
[2023-01-27] MEDS: Donepezil HCl 10 MG TABLET PO (20:25)
[2023-01-28] MEDS: Levothyroxine Sodium 75 MCG TABLET PO (06:12)
[2023-01-28 06:29] LABS: Glucose, Whole Blood 119 mg/dL (60-115)
[2023-01-28 08:13] VITALS: BP 94/55; PULSE 73; RESP 16; TEMP 36.1; O2SAT 95
[2023-01-28] MEDS: risperiDONE 0.5 MG TABLET PO ×2 (08:16→20:52)
[2023-01-28] MEDS: Memantine HCl 10 MG TABLET PO ×2 (08:16→20:52)
[2023-01-28] MEDS: Lidocaine 4 % Patch ADH..PATCH 1 PATCH TRANSDERMA (08:16)
[2023-01-28] MEDS: Clopidogrel Bisulfate 75 MG TABLET PO (08:16)
[2023-01-28] MEDS: Escitalopram Oxalate 10 MG TABLET PO (08:16)
[2023-01-28] MEDS: Divalproex Sodium 250 MG TABLET.DR PO (08:16)
[2023-01-28] MEDS: Insulin Lispro 100 UNIT/ML 3 ML VIAL SUBCUT ×5 (08:20→22:20)
--- NOTE | 2023-01-28 09:09 | PC.NURSE ---
BP 94/55, patient asymptomatic. Tanya Perez NP notified and Metoprolol held. Will re check
[2023-01-28 11:22] LABS: Glucose, Whole Blood 297 mg/dL (60-115)
--- NOTE | 2023-01-28 12:44 | HO.PSYCHPN ---
Subjective Subjective Date of Service: 01/28/23 Reason For Visit: Depression Interim History: no questions or complaints. calm, cooperative, pleasant. per staff, hypotensive today, beta [place] held. FSBS 297 this afternoon. no notable events or behaviors. Mental Status Exam Mental Status Exam Narrative: Appearance: wearing street clothes, fair hygiene, in NAD Behavior: cooperative Psychomotor: no agitation noted Speech: clear, normal rate/rhythm/volume, spontaneous TP: linear TC: no overt delusional content noted or reported Mood: okay Affect: congruent SI: none expressed HI: none expressed VH/AH: none expressed Delusions: none expressed Insight/judgment: fair x 2. Memory/cog: alert, oriented x 3. Diagnostics Vital Signs (24Hr): Vital Signs - 24 hr 01/27/23 18:00 01/28/23 08:13 Temperature 97.8 F 97 F Pulse Rate 67 73 Respiratory Rate 16 16 Blood Pressure 122/60 94/55 L Pulse Oximetry 97 95 Oxygen Delivery Method Room Air Room Air BMI result Body Mass Index 27.8 Labs 01/07/23 17:49 01/07/23 17:49 Labs: Laboratory Results - last 48 hr 01/26/23 01/26/23 01/27/23 16:04 20:02 06:32 POC Glucose 141 H 234 H 147 H 01/27/23 01/27/23 01/27/23 11:31 16:27 20:04 POC Glucose 255 H 292 H 186 H 01/28/23 01/28/23 06:16 11:18 POC Glucose 119 H 297 H Medications Medications Current Medications Acetaminophen (Acetaminophen 325 Mg Tablet) 650 mg PO Q6H PRN PRN Reason: Headache/Pain Mild Scale (1-3) Last Admin: 01/21/23 04:21 Dose: 650 mg Al Hydroxide/Mg Hydroxide (Magnesium Hydrox/Alum Hydrox 30 Ml Oral.Susp) 30 ml PO Q6H PRN PRN Reason: Heartburn/Nausea Atorvastatin Calcium (Atorvastatin Calcium 20 Mg Tablet) 20 mg PO BEDTIME [facility] Last Admin: 01/27/23 20:25 Dose: 20 mg Bisacodyl (Bisacodyl 10 Mg Supp.Rect) 10 mg [place] DAILY PRN PRN Reason: Constipation Clopidogrel Bisulfate (Clopidogrel Bisulfate 75 Mg Tablet) 75 mg PO DAILY [facility] Last Admin: 01/28/23 08:16 Dose: 75 mg Divalproex Sodium (Divalproex Sodium 500 Mg Tablet.) 500 mg PO BEDTIME [facility] Last Admin: 01/27/23 20:25 Dose: 500 mg Divalproex Sodium (Divalproex Sodium 250 Mg Tablet.) 250 mg PO DAILY [facility] Last Admin: 01/28/23 08:16 Dose: 250 mg Donepezil HCl (Donepezil Hcl 10 Mg Tablet) 10 mg PO BEDTIME [facility] Last Admin: 01/27/23 20:25 Dose: 10 mg Escitalopram Oxalate (Escitalopram Oxalate 10 Mg Tablet) 10 mg PO DAILY [facility] Last Admin: 01/28/23 08:16 Dose: 10 mg Gabapentin (Gabapentin 600 Mg Tablet) 1,200 mg PO BEDTIME [facility] Last Admin: 01/27/23 20:25 Dose: 1,200 mg Glucagon (Glucagon Hcl 1 Mg Vial) 1 mg SUBCUT Q20M PRN PRN Reason: BG <70 AND UNRESPONSIVE Glucose (Glucose Gel 15 Gm Gel..Gram.) 15 gm PO Q15M PRN PRN Reason: BG <70 AND RESPONSIVE Insulin Glargine (Insulin Glargine,Hum.Rec.Anlog 100 Unit/Ml 10 Ml Vial) 44 unit SUBCUT BEDTIME [facility] Last Admin: 01/27/23 20:23 Dose: 44 unit Insulin Human Lispro (Insulin Lispro 100 Unit/Ml 3 Ml Vial) 0 unit SUBCUT QIDACHS [facility]; Protocol Last Admin: 01/28/23 11:41 Dose: 10 unit Insulin Human Lispro (Insulin Lispro 100 Unit/Ml 3 Ml Vial) 5 unit SUBCUT QIDACHS [facility] Last Admin: 01/28/23 11:42 Dose: 5 unit Levothyroxine Sodium (Levothyroxine Sodium 75 Mcg Tablet) 75 mcg PO DAILY@0630 [facility] Last Admin: 01/28/23 06:12 Dose: 75 mcg Lidocaine (Lidocaine 4 % Patch Adh..Patch) 1 patch TRANSDERMA DAILY [facility]; Protocol Last Admin: 01/28/23 08:16 Dose: 1 patch Loperamide HCl (Loperamide Hcl 2 Mg Capsule) 2 mg PO Q6H PRN PRN Reason: diarrhea Last Admin: 01/17/23 03:35 Dose: 2 mg Magnesium Hydroxide (Milk Of Magnesia 30 Ml Oral.Susp) 30 ml PO DAILY PRN PRN Reason: Constipation Magnesium Hydroxide (Milk Of Magnesia 30 Ml Oral.Susp) 30 ml PO DAILY PRN PRN Reason: Constipation Memantine (Memantine Hcl 10 Mg Tablet) 10 mg PO BID [facility] Last Admin: 01/28/23 08:16 Dose: 10 mg Metoprolol Tartrate (Metoprolol Tartrate 25 Mg Tablet) 25 mg PO DAILY [facility]; Protocol Last Admin: 01/28/23 08:24 Dose: Not Given Quetiapine Fumarate (Quetiapine Fumarate 50 Mg Tablet) 50 mg PO Q6H PRN PRN Reason: agitation Last Admin: 01/08/23 23:46 Dose: 50 mg Risperidone (Risperidone 0.5 Mg Tablet) 0.5 mg PO BID [facility] Last Admin: 01/28/23 08:16 Dose: 0.5 mg Sodium Biphosphate/Sodium Phosphate (Sodium Phosphate,[place]-Dibasic 133 Ml Enema) 133 ml [place] DAILY PRN PRN Reason: Constipation Trazodone HCl (Trazodone Hcl 50 Mg Tablet) 50 mg PO BEDTIME MRX1 [facility] Last Admin: 01/27/23 22:42 Dose: Not Given Valsartan (Valsartan 80 Mg Tablet) 80 mg PO BEDTIME [facility]; Protocol Last Admin: 01/27/23 20:25 Dose: 80 mg Allergies Allergies Allergy/AdvReac Type Severity Reaction Status Date / Time aspirin [ASPIRIN] Allergy Unknown UNKNOWN Verified 01/01/23 09:43 Assessment & Plan Assessment & Plan (1) Major neurocognitive disorder: Status: Acute Code(s): F03.90 - Unspecified dementia, unspecified severity, without behavioral disturbance, psychotic disturbance, mood disturbance, and anxiety (2) Mood disorder: Status: Acute Code(s): F39 - Unspecified mood [affective] disorder Plan Ms. Landis is a 67 year-old woman with hx of Mood Disorder (untreated for most of her life) and neurocognitive disorder who was brought via EMS from [facility] due to increase verbal aggression towards roommate and one of their staff. Pt is known to this screen writer through previous assessment for similar presentation. Pt presents as calmer, she does admit to being verbally abusive, although denies any intent to harm self or others. She does lack the insight into how her behaviors affect others and her relationships with others. This tendency to have difficulty seeing other people's need per daughter has been life long. Pt presents with tendency to be irritable, at times explosive but not physically aggressive. She was started back in September on low dose of seroquel but no further medication adjustments have been made to manage these symptoms, which are disruptive but not life threatening nor at imminent risk of harm to self or others. As consequence of minimal intervention in the community, pt has had more frequent ED visits here and at [facility]. We discussed risks, benefits and alternative treatment options, pt agrees to start mood stabilizer for impulsive, explosive behaviors. We also discussed switching seroquel to risperidone. Pt is orientation has been intact all along. PLAN 01/20 schedule trazodone 50mg po qhs for sleep. 01/21 continue tx. depakote levels scheduled for tomorrow AM with ammonia levels. 01/22 trough depakote level 75, ammonia 41. continue tx. continue tx 01/24 continue tx. 01/25 continue tx. 01/26 continue tx. 01/27: continue current mgmt. 01/28: continue current mgmt. Reason for continued inpatient stay Substantial Risk for: inability to function Time Spent With Patient Time: Total time managing care of this patient today ____ minutes.
[2023-01-28 16:27] LABS: Glucose, Whole Blood 147 mg/dL (60-115)
[2023-01-28 18:00] VITALS: BP 153/65; PULSE 73; RESP 16; TEMP 37.2; O2SAT 95
[2023-01-28 20:50] LABS: Glucose, Whole Blood 137 mg/dL (60-115)
[2023-01-28] MEDS: Atorvastatin Calcium 20 MG TABLET PO (20:51)
[2023-01-28] MEDS: Gabapentin 600 MG TABLET 1200 MG PO (20:51)
[2023-01-28] MEDS: Valsartan 80 MG TABLET PO (20:52)
[2023-01-28] MEDS: traZODone HCL 50 MG TABLET PO (20:52)
[2023-01-28] MEDS: Donepezil HCl 10 MG TABLET PO (20:53)
[2023-01-28] MEDS: Insulin Glargine,Hum.rec.anlog 100 UNIT/ML 10 ML VIAL 44 UNIT SUBCUT (20:56)
[2023-01-28] MEDS: Divalproex Sodium 500 MG TABLET.DR PO (22:21)
[2023-01-29] MEDS: Acetaminophen 325 MG TABLET 650 MG PO (02:05)
[2023-01-29] MEDS: traZODone HCL 50 MG TABLET PO ×2 (04:34→21:13)
[2023-01-29] MEDS: Levothyroxine Sodium 75 MCG TABLET PO (06:25)
[2023-01-29 06:41] LABS: Glucose, Whole Blood 143 mg/dL (60-115)
[2023-01-29 07:45] VITALS: BP 136/63; PULSE 71; RESP 18; TEMP 36.3; O2SAT 96
[2023-01-29] MEDS: Insulin Lispro 100 UNIT/ML 3 ML VIAL SUBCUT ×7 (08:32→21:19)
[2023-01-29] MEDS: Clopidogrel Bisulfate 75 MG TABLET PO (08:33)
[2023-01-29] MEDS: Memantine HCl 10 MG TABLET PO ×2 (08:33→21:13)
[2023-01-29] MEDS: risperiDONE 0.5 MG TABLET PO ×2 (08:33→21:13)
[2023-01-29] MEDS: Metoprolol Tartrate 25 MG TABLET PO (08:33)
[2023-01-29] MEDS: Escitalopram Oxalate 10 MG TABLET PO (08:33)
[2023-01-29] MEDS: Divalproex Sodium 250 MG TABLET.DR PO (08:33)
[2023-01-29] MEDS: Lidocaine 4 % Patch ADH..PATCH 1 PATCH TRANSDERMA (08:34)
--- NOTE | 2023-01-29 08:51 | P.PNPSI_ITS ---
Subjective Subjective Date of Service: 01/29/23 Reason For Visit: Depression Subjective Notes: Conditional Voluntary Interim History: Pt reports feeling well. No concern regarding her care here. She denies SI/HI. No psychosis or delusions. No aggression towards self or others. takes medications as prescribed. no side effects. monitor hypoglicemia Review of Systems Review of Systems Pt denies chest pain. Pt denies feeling dizzy Denies SOB Denies coughing No constipation or diarrhea Pt reports neck pain Yes all other systems are reviewed and are negative Mental Status Exam Mental Status Exam Narrative: Appearance: wearing street clothes, fair hygiene, in NAD Behavior: cooperative Psychomotor: no agitation noted Speech: clear, normal rate/rhythm/volume, spontaneous TP: linear TC: no overt delusional content noted or reported Mood: okay Affect: congruent SI: none expressed HI: none expressed VH/AH: none expressed Delusions: none expressed Insight/judgment: fair x 2. Memory/cog: alert, oriented x 3. Diagnostics Vital Signs (24Hr): Vital Signs - 24 hr 01/28/23 18:00 Temperature 99 F Pulse Rate 73 Respiratory Rate 16 Blood Pressure 153/65 H Pulse Oximetry 95 Oxygen Delivery Method Room Air BMI result Body Mass Index 27.8 Labs 01/07/23 17:49 01/07/23 17:49 Labs: Laboratory Results - last 48 hr 01/27/23 01/27/23 01/27/23 11:31 16:27 20:04 POC Glucose 255 H 292 H 186 H 01/28/23 01/28/23 01/28/23 06:16 11:18 16:22 POC Glucose 119 H 297 H 147 H 01/28/23 01/29/23 20:39 06:28 POC Glucose 137 H 143 H Medications Medications Current Medications Acetaminophen (Acetaminophen 325 Mg Tablet) 650 mg PO Q6H PRN PRN Reason: Headache/Pain Mild Scale (1-3) Last Admin: 01/29/23 02:05 Dose: 650 mg Al Hydroxide/Mg Hydroxide (Magnesium Hydrox/Alum Hydrox 30 Ml Oral.Susp) 30 ml PO Q6H PRN PRN Reason: Heartburn/Nausea Atorvastatin Calcium (Atorvastatin Calcium 20 Mg Tablet) 20 mg PO BEDTIME [facility] Last Admin: 01/28/23 20:51 Dose: 20 mg Bisacodyl (Bisacodyl 10 Mg Supp.Rect) 10 mg [place] DAILY PRN PRN Reason: Constipation Clopidogrel Bisulfate (Clopidogrel Bisulfate 75 Mg Tablet) 75 mg PO DAILY [facility] Last Admin: 01/29/23 08:33 Dose: 75 mg Divalproex Sodium (Divalproex Sodium 500 Mg Tablet.Dr) 500 mg PO BEDTIME [facility] [place] Last Admin: 01/28/23 22:21 Dose: 500 mg Divalproex Sodium (Divalproex Sodium 250 Mg Tablet.) 250 mg PO DAILY [facility] Last Admin: 01/29/23 08:33 Dose: 250 mg Donepezil HCl (Donepezil Hcl 10 Mg Tablet) 10 mg PO BEDTIME [facility] [place] Last Admin: 01/28/23 20:53 Dose: 10 mg Escitalopram Oxalate (Escitalopram Oxalate 10 Mg Tablet) 10 mg PO DAILY [facility] Last Admin: 01/29/23 08:33 Dose: 10 mg Gabapentin (Gabapentin 600 Mg Tablet) 1,200 mg PO BEDTIME [facility] Last Admin: 01/28/23 20:51 Dose: 1,200 mg Glucagon (Glucagon Hcl 1 Mg Vial) 1 mg SUBCUT Q20M PRN PRN Reason: BG <70 AND UNRESPONSIVE Glucose (Glucose Gel 15 Gm Gel..Gram.) 15 gm PO Q15M PRN PRN Reason: BG <70 AND RESPONSIVE Insulin Glargine (Insulin Glargine,Hum.Rec.Anlog 100 Unit/Ml 10 Ml Vial) 44 unit SUBCUT BEDTIME [facility] [place] Last Admin: 01/28/23 20:56 Dose: 44 unit Insulin Human Lispro (Insulin Lispro 100 Unit/Ml 3 Ml Vial) 0 unit SUBCUT QIDACHS [facility]; Protocol Last Admin: 01/29/23 08:31 Dose: Not Given Insulin Human Lispro (Insulin Lispro 100 Unit/Ml 3 Ml Vial) 5 unit SUBCUT QIDACHS [facility] Last Admin: 01/29/23 08:32 Dose: 5 unit Levothyroxine Sodium (Levothyroxine Sodium 75 Mcg Tablet) 75 mcg PO DAILY@0630 [facility] Last Admin: 01/29/23 06:25 Dose: 75 mcg Lidocaine (Lidocaine 4 % Patch Adh..Patch) 1 patch TRANSDERMA DAILY [facility]; Protocol Last Admin: 01/29/23 08:34 Dose: 1 patch Loperamide HCl (Loperamide Hcl 2 Mg Capsule) 2 mg PO Q6H PRN PRN Reason: diarrhea Last Admin: 01/17/23 03:35 Dose: 2 mg Magnesium Hydroxide (Milk Of Magnesia 30 Ml Oral.Susp) 30 ml PO DAILY PRN PRN Reason: Constipation Magnesium Hydroxide (Milk Of Magnesia 30 Ml Oral.Susp) 30 ml PO DAILY PRN PRN Reason: Constipation Memantine (Memantine Hcl 10 Mg Tablet) 10 mg PO BID [facility] Last Admin: 01/29/23 08:33 Dose: 10 mg Metoprolol Tartrate (Metoprolol Tartrate 25 Mg Tablet) 25 mg PO DAILY [facility]; Protocol Last Admin: 01/29/23 08:33 Dose: 25 mg Quetiapine Fumarate (Quetiapine Fumarate 50 Mg Tablet) 50 mg PO Q6H PRN PRN Reason: agitation Last Admin: 01/08/23 23:46 Dose: 50 mg Risperidone (Risperidone 0.5 Mg Tablet) 0.5 mg PO BID [facility] Last Admin: 01/29/23 08:33 Dose: 0.5 mg Sodium Biphosphate/Sodium Phosphate (Sodium Phosphate,[place]-Dibasic 133 Ml Enema) 133 ml [place] DAILY PRN PRN Reason: Constipation Trazodone HCl (Trazodone Hcl 50 Mg Tablet) 50 mg PO BEDTIME MRX1 [facility] Last Admin: 01/29/23 04:34 Dose: 50 mg Valsartan (Valsartan 80 Mg Tablet) 80 mg PO BEDTIME [facility]; Protocol Last Admin: 01/28/23 20:52 Dose: 80 mg Allergies Allergies Allergy/AdvReac Type Severity Reaction Status Date / Time aspirin [ASPIRIN] Allergy Unknown UNKNOWN Verified 01/01/23 09:43 Assessment & Plan Assessment & Plan (1) Major neurocognitive disorder: Status: Acute Code(s): F03.90 - Unspecified dementia, unspecified severity, without behavioral disturbance, psychotic disturbance, mood disturbance, and anxiety (2) Mood disorder: Status: Acute Code(s): F39 - Unspecified mood [affective] disorder Plan Ms. Landis is a 67 year-old woman with hx of Mood Disorder (untreated for most of her life) and neurocognitive disorder who was brought via EMS from [facility] due to increase verbal aggression towards roommate and one of their staff. Pt is known to this typewriter assembler through previous assessment for similar presentation. Pt presents as calmer, she does admit to being verbally abusive, although denies any intent to harm self or others. She does lack the insight into how her behaviors affect others and her relationships with others. This tendency to have difficulty seeing other people's need per daughter has been life long. Pt presents with tendency to be irritable, at times explosive but not physically aggressive. She was started back in September on low dose of seroquel but no further medication adjustments have been made to manage these symptoms, which are disruptive but not life threatening nor at imminent risk of harm to self or others. As consequence of minimal intervention in the community, pt has had more frequent ED visits here and at [facility]. We discussed risks, benefits and alternative treatment options, pt agrees to start mood stabilizer for impulsive, explosive behaviors. We also discussed switching seroquel to risperidone. Pt is orientation has been intact all along. PLAN 01/20 schedule trazodone 50mg po qhs for sleep. 01/21 continue tx. depakote levels scheduled for tomorrow AM with ammonia levels. 01/22 trough depakote level 75, ammonia 41. continue tx. continue tx 01/24 continue tx. 01/25 continue tx. 01/26 continue tx. 01/27: continue current mgmt. 01/28: continue current mgmt. 01/29 continue tx. Reason for continued inpatient stay Substantial Risk for: inability to function Time Spent With Patient Time: Total time managing care of this patient today ____ minutes.
[2023-01-29 11:53] LABS: Glucose, Whole Blood 320 mg/dL (60-115)
[2023-01-29 16:36] LABS: Glucose, Whole Blood 176 mg/dL (60-115)
[2023-01-29 18:00] VITALS: BP 150/65; PULSE 67; RESP 18; TEMP 36.2; O2SAT 97
[2023-01-29 20:21] LABS: Glucose, Whole Blood 216 mg/dL (60-115)
[2023-01-29] MEDS: Insulin Glargine,Hum.rec.anlog 100 UNIT/ML 10 ML VIAL 46 UNIT SUBCUT (21:06)
[2023-01-29] MEDS: Valsartan 80 MG TABLET PO (21:12)
[2023-01-29] MEDS: Donepezil HCl 10 MG TABLET PO (21:13)
[2023-01-29] MEDS: Atorvastatin Calcium 20 MG TABLET PO (21:13)
[2023-01-29] MEDS: Divalproex Sodium 500 MG TABLET.DR PO (21:13)
[2023-01-29] MEDS: Gabapentin 600 MG TABLET 1200 MG PO (21:13)
[2023-01-30] MEDS: Acetaminophen 325 MG TABLET 650 MG PO (02:44)
[2023-01-30 03:10] LABS: Glucose, Whole Blood 57 mg/dL (60-115)
[2023-01-30] MEDS: Glucose Gel 15 GM GEL..GRAM. PO (03:12)
--- NOTE | 2023-01-30 03:30 | PC.NURSE ---
03:00 PT was c/o aches all over she was sitting at the side of her bed groaning. VS taken and tylenol given she began to feel nauseous and vomit med amount and she was shaking VS 96.6, 70 ,12,112/56 Sat 94% POC was 57 Glutose 15 given recheck POC at 3:30 103 . PT feeling better no longer nauseated or shaking, PT said she feels better and wants to sleep.
[2023-01-30 03:45] LABS: Glucose, Whole Blood 103 mg/dL (60-115)
[2023-01-30] MEDS: Levothyroxine Sodium 75 MCG TABLET PO (06:20)
[2023-01-30 06:42] LABS: Glucose, Whole Blood 127 mg/dL (60-115)
[2023-01-30 07:00] VITALS: BMI 28.4
[2023-01-30 08:00] VITALS: BP 142/63; PULSE 64; RESP 18; TEMP 35.5; O2SAT 98
[2023-01-30] MEDS: Divalproex Sodium 250 MG TABLET.DR PO (08:29)
[2023-01-30] MEDS: Clopidogrel Bisulfate 75 MG TABLET PO (08:29)
[2023-01-30] MEDS: Metoprolol Tartrate 25 MG TABLET PO (08:29)
[2023-01-30] MEDS: Escitalopram Oxalate 10 MG TABLET PO (08:30)
[2023-01-30] MEDS: risperiDONE 0.5 MG TABLET PO (08:31)
[2023-01-30] MEDS: Lidocaine 4 % Patch ADH..PATCH 1 PATCH TRANSDERMA (08:32)
--- NOTE | 2023-01-30 12:09 | HO.PSYCHPN ---
Subjective Subjective Date of Service: 01/31/23 Reason For Visit: Depression Subjective Notes: Conditional Voluntary Healthcare Proxy: Yes Interim History: Pt reports bilat leg pain when walking and sitting. She reports it feels like a sharp pain, non localized but in calf and around it both legs. No significant edema, left slight more swollen but no pitting edema noted. Left slightly warmer than right one. Pt reports pain with light touch. Bilat doppler completed- no s/s of DVT. Pt continues to report persistent pain when walking and sitting. Otherwise, pt reports sleeping and eating well. She reports mood has been stable. No significant irritability. No SI/HI. No behavioral concerns. Medication Compliance: Yes Side effects from medications: No Review of Systems Review of Systems Pt denies chest pain. Pt denies feeling dizzy Denies SOB Denies coughing No constipation or diarrhea Pt reports neck pain Yes all other systems are reviewed and are negative Mental Status Exam Mental Status Exam Narrative: Appearance: wearing street clothes, fair hygiene, in NAD Behavior: cooperative Psychomotor: no agitation noted Speech: clear, normal rate/rhythm/volume, spontaneous TP: linear TC: no overt delusional content noted or reported Mood: okay Affect: congruent SI: none expressed HI: none expressed VH/AH: none expressed Delusions: none expressed Insight/judgment: fair x 2. Memory/cog: alert, oriented x 3. Diagnostics Vital Signs (24Hr): Vital Signs - 24 hr 01/29/23 18:00 01/30/23 08:00 Temperature 97.1 F 96 F L Pulse Rate 67 64 Respiratory Rate 18 18 Blood Pressure 150/65 H 142/63 H Pulse Oximetry 97 98 Oxygen Delivery Method Room Air Room Air BMI result Body Mass Index 27.8 Labs 01/07/23 17:49 01/07/23 17:49 Labs: Laboratory Results - last 48 hr 01/28/23 01/28/23 01/29/23 16:22 20:39 06:28 POC Glucose 147 H 137 H 143 H 01/29/23 01/29/23 01/29/23 11:48 16:28 20:00 POC Glucose 320 H 176 H 216 H 01/30/23 01/30/23 01/30/23 03:04 03:39 06:23 POC Glucose 57 L* 103 127 H 01/30/23 11:26 POC Glucose 270 H Medications Medications Current Medications Acetaminophen (Acetaminophen 325 Mg Tablet) 650 mg PO Q6H PRN PRN Reason: Headache/Pain Mild Scale (1-3) Last Admin: 01/30/23 02:44 Dose: 650 mg Al Hydroxide/Mg Hydroxide (Magnesium Hydrox/Alum Hydrox 30 Ml Oral.Susp) 30 ml PO Q6H PRN PRN Reason: Heartburn/Nausea Atorvastatin Calcium (Atorvastatin Calcium 20 Mg Tablet) 20 mg PO BEDTIME [facility] Last Admin: 01/29/23 21:13 Dose: 20 mg Bisacodyl (Bisacodyl 10 Mg Supp.Rect) 10 mg [place] DAILY PRN PRN Reason: Constipation Clopidogrel Bisulfate (Clopidogrel Bisulfate 75 Mg Tablet) 75 mg PO DAILY [facility] Last Admin: 01/30/23 08:29 Dose: 75 mg Divalproex Sodium (Divalproex Sodium 500 Mg Tablet.) 500 mg PO BEDTIME [facility] Last Admin: 01/29/23 21:13 Dose: 500 mg Divalproex Sodium (Divalproex Sodium 250 Mg Tablet.) 250 mg PO DAILY [facility] Last Admin: 01/30/23 08:29 Dose: 250 mg Donepezil HCl (Donepezil Hcl 10 Mg Tablet) 10 mg PO BEDTIME [facility] Last Admin: 01/29/23 21:13 Dose: 10 mg Escitalopram Oxalate (Escitalopram Oxalate 10 Mg Tablet) 10 mg PO DAILY [facility] Last Admin: 01/30/23 08:30 Dose: 10 mg Gabapentin (Gabapentin 600 Mg Tablet) 1,200 mg PO BEDTIME [facility] Last Admin: 01/29/23 21:13 Dose: 1,200 mg Glucagon (Glucagon Hcl 1 Mg Vial) 1 mg SUBCUT Q20M PRN PRN Reason: BG <70 AND UNRESPONSIVE Glucose (Glucose Gel 15 Gm Gel..Gram.) 15 gm PO Q15M PRN PRN Reason: BG <70 AND RESPONSIVE Last Admin: 01/30/23 03:12 Dose: 15 gm Insulin Glargine (Insulin Glargine,Hum.Rec.Anlog 100 Unit/Ml 10 Ml Vial) 46 unit SUBCUT BEDTIME [facility] Last Admin: 01/29/23 21:06 Dose: 46 unit Insulin Human Lispro (Insulin Lispro 100 Unit/Ml 3 Ml Vial) 5 unit SUBCUT DAILY@0900,1200,1700 [facility] Insulin Human Lispro (Insulin Lispro 100 Unit/Ml 3 Ml Vial) 0 unit SUBCUT QIDACHS [facility]; Protocol Levothyroxine Sodium (Levothyroxine Sodium 75 Mcg Tablet) 75 mcg PO DAILY@0630 [facility] Last Admin: 01/30/23 06:20 Dose: 75 mcg Lidocaine (Lidocaine 4 % Patch Adh..Patch) 1 patch TRANSDERMA DAILY [facility]; Protocol Last Admin: 01/30/23 08:32 Dose: 1 patch Loperamide HCl (Loperamide Hcl 2 Mg Capsule) 2 mg PO Q6H PRN PRN Reason: diarrhea Last Admin: 01/17/23 03:35 Dose: 2 mg Magnesium Hydroxide (Milk Of Magnesia 30 Ml Oral.Susp) 30 ml PO DAILY PRN PRN Reason: Constipation Magnesium Hydroxide (Milk Of Magnesia 30 Ml Oral.Susp) 30 ml PO DAILY PRN PRN Reason: Constipation Memantine (Memantine Hcl 10 Mg Tablet) 10 mg PO BID [facility] Last Admin: 01/30/23 08:30 Dose: 10 mg Metoprolol Tartrate (Metoprolol Tartrate 25 Mg Tablet) 25 mg PO DAILY [facility]; Protocol Last Admin: 01/30/23 08:29 Dose: 25 mg Quetiapine Fumarate (Quetiapine Fumarate 50 Mg Tablet) 50 mg PO Q6H PRN PRN Reason: agitation Last Admin: 01/08/23 23:46 Dose: 50 mg Sodium Biphosphate/Sodium Phosphate (Sodium Phosphate,[place]-Dibasic 133 Ml Enema) 133 ml [place] DAILY PRN PRN Reason: Constipation Trazodone HCl (Trazodone Hcl 50 Mg Tablet) 50 mg PO BEDTIME PRN PRN Reason: Insomnia Valsartan (Valsartan 80 Mg Tablet) 80 mg PO BEDTIME [facility]; Protocol Last Admin: 01/29/23 21:12 Dose: 80 mg Allergies Allergies Allergy/AdvReac Type Severity Reaction Status Date / Time aspirin [ASPIRIN] Allergy Unknown UNKNOWN Verified 01/01/23 09:43 Assessment & Plan Assessment & Plan (1) Major neurocognitive disorder: Status: Acute Code(s): F03.90 - Unspecified dementia, unspecified severity, without behavioral disturbance, psychotic disturbance, mood disturbance, and anxiety (2) Mood disorder: Status: Acute Code(s): F39 - Unspecified mood [affective] disorder Plan Ms. Landis is a 67 year-old woman with hx of Mood Disorder (untreated for most of her life) and neurocognitive disorder who was brought via EMS from [facility] due to increase verbal aggression towards roommate and one of their staff. Pt is known to this global technical writer through previous assessment for similar presentation. Pt presents as calmer, she does admit to being verbally abusive, although denies any intent to harm self or others. She does lack the insight into how her behaviors affect others and her relationships with others. This tendency to have difficulty seeing other people's need per daughter has been life long. Pt presents with tendency to be irritable, at times explosive but not physically aggressive. She was started back in September on low dose of seroquel but no further medication adjustments have been made to manage these symptoms, which are disruptive but not life threatening nor at imminent risk of harm to self or others. As consequence of minimal intervention in the community, pt has had more frequent ED visits here and at [facility]. We discussed risks, benefits and alternative treatment options, pt agrees to start mood stabilizer for impulsive, explosive behaviors. We also discussed switching seroquel to risperidone. Pt is orientation has been intact all along. PLAN 01/20 schedule trazodone 50mg po qhs for sleep. 01/21 continue tx. depakote levels scheduled for tomorrow AM with ammonia levels. 01/22 trough depakote level 75, ammonia 41. continue tx. continue tx 01/24 continue tx. 01/25 continue tx. 01/26 continue tx. 01/27: continue current mgmt. 01/28: continue current mgmt. 01/29 continue tx. 01/30 continue tx. 01/31 continues tx-continue monitor bilat LE- doppler did not show DVT. Patient educated on: diagnosis and medication risk/benefits Informed Consent: understands Reason for continued inpatient stay Substantial Risk for: inability to function Time Spent With Patient Time: Total time managing care of this patient today ____ minutes.
[2023-01-30 18:00] VITALS: BP 153/66; PULSE 68; RESP 18; TEMP 36.4; O2SAT 98
[2023-01-30] MEDS: Atorvastatin Calcium 20 MG TABLET PO (21:38)
[2023-01-30] MEDS: Donepezil HCl 10 MG TABLET PO (21:38)
[2023-01-30] MEDS: Divalproex Sodium 500 MG TABLET.DR PO (21:38)
[2023-01-30] MEDS: Valsartan 80 MG TABLET PO (21:38)
[2023-01-31] MEDS: Levothyroxine Sodium 75 MCG TABLET PO (06:14)
[2023-01-31 07:35] VITALS: BP 131/88; PULSE 67; RESP 13; TEMP 36.6; O2SAT 95
[2023-01-31] MEDS: Lidocaine 4 % Patch ADH..PATCH 1 PATCH TRANSDERMA (08:24)
[2023-01-31] MEDS: Divalproex Sodium 250 MG TABLET.DR PO (08:27)
[2023-01-31] MEDS: Escitalopram Oxalate 10 MG TABLET PO (08:27)
[2023-01-31] MEDS: Clopidogrel Bisulfate 75 MG TABLET PO (08:27)
[2023-01-31 18:00] VITALS: BP 142/65; PULSE 68; RESP 18; TEMP 36.7; O2SAT 98
[2023-01-31] MEDS: Atorvastatin Calcium 20 MG TABLET PO (20:58)
[2023-01-31] MEDS: Divalproex Sodium 500 MG TABLET.DR PO (20:58)
[2023-01-31] MEDS: Donepezil HCl 10 MG TABLET PO (20:59)
[2023-01-31] MEDS: Valsartan 80 MG TABLET PO (20:59)
[2023-02-01] MEDS: Acetaminophen 325 MG TABLET 650 MG PO (04:32)
[2023-02-01] MEDS: Levothyroxine Sodium 75 MCG TABLET PO (06:44)
[2023-02-01 08:11] VITALS: BP 103/53; PULSE 62; RESP 18; TEMP 36.1; O2SAT 98
[2023-02-01] MEDS: Escitalopram Oxalate 10 MG TABLET PO (08:18)
[2023-02-01] MEDS: Divalproex Sodium 250 MG TABLET.DR PO (08:18)
[2023-02-01] MEDS: Clopidogrel Bisulfate 75 MG TABLET PO (08:18)
[2023-02-01] MEDS: Lidocaine 4 % Patch ADH..PATCH 1 PATCH TRANSDERMA (09:10)
[2023-02-01 10:14] VITALS: BP 103/54
--- NOTE | 2023-02-01 12:27 | HO.PSYCHPN ---
Subjective Subjective Date of Service: 02/01/23 Reason For Visit: Depression Interim History: Patient reports sleeping and eating well. She reports mood has been stable. No significant irritability. No SI/HI. No behavioral concerns. Staff notes she is guarded. Not attending groups. Review of Systems Review of Systems Pt denies chest pain. Pt denies feeling dizzy Denies SOB Denies coughing No constipation or diarrhea Pt reports neck pain Yes all other systems are reviewed and are negative Mental Status Exam Mental Status Exam Narrative: Appearance: wearing street clothes, fair hygiene, in NAD Behavior: cooperative Psychomotor: no agitation noted Speech: clear, normal rate/rhythm/volume, spontaneous TP: linear TC: no overt delusional content noted or reported Mood: okay Affect: congruent SI: none expressed HI: none expressed VH/AH: none expressed Delusions: none expressed Insight/judgment: fair x 2. Memory/cog: alert, oriented x 3. Patient Appearance: Appropriate Patient Orientation: Person and Situation Level of Consciousness: Awake and Appropriate Patient Behavior: Guarded and Passive Mood Description: Withdrawn Affect Description: Constricted Patient Cognition Impaired: Yes Ability to Follow Directions: Fair Speech Pattern: Clear Diagnostics Vital Signs (24Hr): Vital Signs - 24 hr 01/31/23 18:00 02/01/23 08:11 02/01/23 10:14 Temperature 98.1 F 97.0 F Pulse Rate 68 62 Respiratory Rate 18 18 Blood Pressure 142/65 H 103/53 L 103/54 L Pulse Oximetry 98 98 Oxygen Delivery Method Room Air Room Air BMI result Body Mass Index 28.4 Labs 01/07/23 17:49 01/07/23 17:49 Labs: Laboratory Results - last 48 hr 01/30/23 01/30/23 01/31/23 16:20 21:37 06:16 POC Glucose 194 H 160 H 94 01/31/23 01/31/23 01/31/23 11:28 16:38 19:55 POC Glucose 266 H 208 H 180 H 02/01/23 02/01/23 06:46 11:22 POC Glucose 76 155 H Imaging Radiology Impressions: ITS Impressions Venous Duplex 01/30/23 16:02 IMPRESSION: No DVT demonstrated in the bilateral lower extremity. Medications Medications Current Medications Acetaminophen (Acetaminophen 325 Mg Tablet) 650 mg PO Q6H PRN PRN Reason: Headache/Pain Mild Scale (1-3) Last Admin: 02/01/23 04:32 Dose: 650 mg Al Hydroxide/Mg Hydroxide (Magnesium Hydrox/Alum Hydrox 30 Ml Oral.Susp) 30 ml PO Q6H PRN PRN Reason: Heartburn/Nausea Atorvastatin Calcium (Atorvastatin Calcium 20 Mg Tablet) 20 mg PO BEDTIME [facility] Last Admin: 01/31/23 20:58 Dose: 20 mg Bisacodyl (Bisacodyl 10 Mg Supp.Rect) 10 mg [place] DAILY PRN PRN Reason: Constipation Clopidogrel Bisulfate (Clopidogrel Bisulfate 75 Mg Tablet) 75 mg PO DAILY [facility] Last Admin: 02/01/23 08:18 Dose: 75 mg Divalproex Sodium (Divalproex Sodium 500 Mg Tablet.) 500 mg PO BEDTIME [facility] Last Admin: 01/31/23 20:58 Dose: 500 mg Divalproex Sodium (Divalproex Sodium 250 Mg Tablet.) 250 mg PO DAILY [facility] Last Admin: 02/01/23 08:18 Dose: 250 mg Donepezil HCl (Donepezil Hcl 10 Mg Tablet) 10 mg PO BEDTIME [facility] Last Admin: 01/31/23 20:59 Dose: 10 mg Escitalopram Oxalate (Escitalopram Oxalate 10 Mg Tablet) 10 mg PO DAILY [facility] Last Admin: 02/01/23 08:18 Dose: 10 mg Gabapentin (Gabapentin 600 Mg Tablet) 1,200 mg PO BEDTIME [facility] Last Admin: 01/31/23 20:58 Dose: 1,200 mg Glucagon (Glucagon Hcl 1 Mg Vial) 1 mg SUBCUT Q20M PRN PRN Reason: BG <70 AND UNRESPONSIVE Glucose (Glucose Gel 15 Gm Gel..Gram.) 15 gm PO Q15M PRN PRN Reason: BG <70 AND RESPONSIVE Last Admin: 01/30/23 03:12 Dose: 15 gm Insulin Glargine (Insulin Glargine,Hum.Rec.Anlog 100 Unit/Ml 10 Ml Vial) 46 unit SUBCUT BEDTIME [facility] Last Admin: 01/31/23 20:58 Dose: 46 unit Insulin Human Lispro (Insulin Lispro 100 Unit/Ml 3 Ml Vial) 5 unit SUBCUT DAILY@0900,1200,1700 [facility] Last Admin: 02/01/23 11:55 Dose: 5 unit Insulin Human Lispro (Insulin Lispro 100 Unit/Ml 3 Ml Vial) 0 unit SUBCUT QIDACHS [facility]; Protocol Last Admin: 02/01/23 11:56 Dose: 2 unit Levothyroxine Sodium (Levothyroxine Sodium 75 Mcg Tablet) 75 mcg PO DAILY@0630 [facility] Last Admin: 02/01/23 06:44 Dose: 75 mcg Lidocaine (Lidocaine 4 % Patch Adh..Patch) 1 patch TRANSDERMA DAILY [facility]; Protocol Last Admin: 02/01/23 09:10 Dose: 1 patch Loperamide HCl (Loperamide Hcl 2 Mg Capsule) 2 mg PO Q6H PRN PRN Reason: diarrhea Last Admin: 01/17/23 03:35 Dose: 2 mg Magnesium Hydroxide (Milk Of Magnesia 30 Ml Oral.Susp) 30 ml PO DAILY PRN PRN Reason: Constipation Magnesium Hydroxide (Milk Of Magnesia 30 Ml Oral.Susp) 30 ml PO DAILY PRN PRN Reason: Constipation Memantine (Memantine Hcl 10 Mg Tablet) 10 mg PO BID [facility] Last Admin: 02/01/23 08:18 Dose: 10 mg Metoprolol Tartrate (Metoprolol Tartrate 25 Mg Tablet) 25 mg PO DAILY [facility]; Protocol Last Admin: 02/01/23 08:15 Dose: Not Given Quetiapine Fumarate (Quetiapine Fumarate 50 Mg Tablet) 50 mg PO Q6H PRN PRN Reason: agitation Last Admin: 01/08/23 23:46 Dose: 50 mg Sodium Biphosphate/Sodium Phosphate (Sodium Phosphate,[place]-Dibasic 133 Ml Enema) 133 ml [place] DAILY PRN PRN Reason: Constipation Trazodone HCl (Trazodone Hcl 50 Mg Tablet) 50 mg PO BEDTIME PRN PRN Reason: Insomnia Last Admin: 01/31/23 21:53 Dose: 50 mg Valsartan (Valsartan 80 Mg Tablet) 80 mg PO BEDTIME [facility]; Protocol Last Admin: 01/31/23 20:59 Dose: 80 mg Allergies Allergies Allergy/AdvReac Type Severity Reaction Status Date / Time aspirin [ASPIRIN] Allergy Unknown UNKNOWN Verified 01/01/23 09:43 Assessment & Plan Assessment & Plan (1) Major neurocognitive disorder: Status: Acute Code(s): F03.90 - Unspecified dementia, unspecified severity, without behavioral disturbance, psychotic disturbance, mood disturbance, and anxiety (2) Mood disorder: Status: Acute Code(s): F39 - Unspecified mood [affective] disorder Plan Ms. Landis is a 67 year-old woman with hx of Mood Disorder (untreated for most of her life) and neurocognitive disorder who was brought via EMS from [facility] due to increase verbal aggression towards roommate and one of their staff. Pt is known to this pattern chart writer through previous assessment for similar presentation. Pt presents as calmer, she does admit to being verbally abusive, although denies any intent to harm self or others. She does lack the insight into how her behaviors affect others and her relationships with others. This tendency to have difficulty seeing other people's need per daughter has been life long. Pt presents with tendency to be irritable, at times explosive but not physically aggressive. She was started back in September on low dose of seroquel but no further medication adjustments have been made to manage these symptoms, which are disruptive but not life threatening nor at imminent risk of harm to self or others. As consequence of minimal intervention in the community, pt has had more frequent ED visits here and at [facility]. We discussed risks, benefits and alternative treatment options, pt agrees to start mood stabilizer for impulsive, explosive behaviors. We also discussed switching seroquel to risperidone. Pt is orientation has been intact all along. PLAN 01/20 schedule trazodone 50mg po qhs for sleep. 01/21 continue tx. depakote levels scheduled for tomorrow AM with ammonia levels. 01/22 trough depakote level 75, ammonia 41. continue tx. continue tx 01/24 continue tx. 01/25 continue tx. 01/26 continue tx. 01/27: continue current mgmt. 01/28: continue current mgmt. 01/29 continue tx. 01/30 continue tx. 01/31 continues tx-continue monitor bilat LE- doppler did not show DVT. 02/01: No change in medications, continue current plan of care. Reason for continued inpatient stay Substantial Risk for: inability to function and rapid decompensation Time Spent With Patient Time: Total time managing care of this patient today ____ minutes.
--- NOTE | 2023-02-01 15:43 | PC.NURSE ---
Dr. Langley notified that morning bp 103/53 and Metoprolol held. Shae denied lightheadedness and dizziness. Recheck of bp 2 hours later 103/[address] Langley notified and Shae continued to be asymptomatic. Morning POC 76 and 5 units Lispro held and Dr. Langley notified.
[2023-02-01 18:00] VITALS: BP 141/65; PULSE 69; RESP 17; TEMP 36.1; O2SAT 97
[2023-02-01] MEDS: Valsartan 80 MG TABLET PO (20:11)
[2023-02-01] MEDS: Atorvastatin Calcium 20 MG TABLET PO (20:13)
[2023-02-02] MEDS: Levothyroxine Sodium 75 MCG TABLET PO (06:12)
--- NOTE | 2023-02-02 06:47 | PC.NURSE ---
Patient had low fasting blood glucose of 53 this morning, no complaints of adverse symptoms. Repeat check after 15 min was 81. call out clerk provider Dr Langley and hospitalist Dr Ratliff notified.
[2023-02-02 08:20] VITALS: BP 103/58; PULSE 66; RESP 16; TEMP 36.4; O2SAT 100
[2023-02-02] MEDS: Lidocaine 4 % Patch ADH..PATCH 1 PATCH TRANSDERMA (08:23)
[2023-02-02] MEDS: Divalproex Sodium 250 MG TABLET.DR PO (08:24)
--- NOTE | 2023-02-02 13:06 | PM.EVENT ---
Event Note Date of Service: 02/02/23 Event Note: Pt with multiple episodes hypoglycemia. Discontinue standing 5 units humalog. Continue with SSI humalog, but only TIDAC, not at bedtime. Continue lantus 46 units nightly. Continue reinforcing diabetic diet (avoid juice and ice cream, or whatever down sugary beverages). Will continue monitoring. Time Spent With Patient Time: Total time managing care of this patient today ____ minutes.
[2023-02-02] MEDS: Acetaminophen 325 MG TABLET 650 MG PO (13:41)
[2023-02-02 18:00] VITALS: BP 143/65; PULSE 68; TEMP 36.8; O2SAT 99
--- NOTE | 2023-02-02 19:06 | HO.PSYCHPN ---
Subjective Subjective Date of Service: 02/02/23 Reason For Visit: Depression Interim History: Patient reports sleeping and eating well. She had low BS. Seen by medicine. Her insulin was adjusted. She reports mood has been stable. No significant irritability. No SI/HI. No behavioral concerns. Staff notes she is guarded. Not attending groups but seen in the milieu. Review of Systems Review of Systems Pt denies chest pain. Pt denies feeling dizzy Denies SOB Denies coughing No constipation or diarrhea Pt reports neck pain Yes all other systems are reviewed and are negative Mental Status Exam Mental Status Exam Narrative: Appearance: wearing street clothes, fair hygiene, in NAD Behavior: cooperative Psychomotor: no agitation noted Speech: clear, normal rate/rhythm/volume, spontaneous TP: linear TC: no overt delusional content noted or reported Mood: okay Affect: congruent SI: none expressed HI: none expressed VH/AH: none expressed Delusions: none expressed Insight/judgment: fair x 2. Memory/cog: alert, oriented x 3. Patient Appearance: Appropriate Patient Orientation: Person and Situation Level of Consciousness: Awake and Appropriate Patient Behavior: Guarded and Passive Mood Description: Withdrawn Affect Description: Constricted Patient Cognition Impaired: Yes Ability to Follow Directions: Fair Speech Pattern: Clear Diagnostics Vital Signs (24Hr): Vital Signs - 24 hr 02/02/23 08:20 Temperature 97.6 F Pulse Rate 66 Respiratory Rate 16 Blood Pressure 103/58 L Pulse Oximetry 100 Oxygen Delivery Method Room Air BMI result Body Mass Index 28.4 Labs 01/07/23 17:49 01/07/23 17:49 Labs: Laboratory Results - last 48 hr 01/31/23 02/01/23 02/01/23 19:55 06:46 11:22 POC Glucose 180 H 76 155 H 02/01/23 02/01/23 02/02/23 16:29 19:41 06:14 POC Glucose 96 115 53 L* 02/02/23 02/02/23 02/02/23 06:36 11:19 16:20 POC Glucose 81 163 H 288 H Imaging Radiology Impressions: ITS Impressions Venous Duplex 01/30/23 16:02 IMPRESSION: No DVT demonstrated in the bilateral lower extremity. Medications Medications Current Medications Acetaminophen (Acetaminophen 325 Mg Tablet) 650 mg PO Q6H PRN PRN Reason: Headache/Pain Mild Scale (1-3) Last Admin: 02/02/23 13:41 Dose: 650 mg Al Hydroxide/Mg Hydroxide (Magnesium Hydrox/Alum Hydrox 30 Ml Oral.Susp) 30 ml PO Q6H PRN PRN Reason: Heartburn/Nausea Atorvastatin Calcium (Atorvastatin Calcium 20 Mg Tablet) 20 mg PO BEDTIME [facility] Last Admin: 02/01/23 20:13 Dose: 20 mg Bisacodyl (Bisacodyl 10 Mg Supp.Rect) 10 mg [place] DAILY PRN PRN Reason: Constipation Clopidogrel Bisulfate (Clopidogrel Bisulfate 75 Mg Tablet) 75 mg PO DAILY [facility] Last Admin: 02/02/23 08:24 Dose: 75 mg Divalproex Sodium (Divalproex Sodium 500 Mg Tablet.) 500 mg PO BEDTIME [facility] Last Admin: 02/01/23 20:12 Dose: 500 mg Divalproex Sodium (Divalproex Sodium 250 Mg Tablet.) 250 mg PO DAILY [facility] Last Admin: 02/02/23 08:24 Dose: 250 mg Donepezil HCl (Donepezil Hcl 10 Mg Tablet) 10 mg PO BEDTIME [facility] Last Admin: 02/01/23 20:11 Dose: 10 mg Escitalopram Oxalate (Escitalopram Oxalate 10 Mg Tablet) 10 mg PO DAILY [facility] Last Admin: 02/02/23 08:24 Dose: 10 mg Gabapentin (Gabapentin 600 Mg Tablet) 1,200 mg PO BEDTIME [facility] Last Admin: 02/01/23 20:12 Dose: 1,200 mg Glucagon (Glucagon Hcl 1 Mg Vial) 1 mg SUBCUT Q20M PRN PRN Reason: BG <70 AND UNRESPONSIVE Glucose (Glucose Gel 15 Gm Gel..Gram.) 15 gm PO Q15M PRN PRN Reason: BG <70 AND RESPONSIVE Last Admin: 01/30/23 03:12 Dose: 15 gm Insulin Glargine (Insulin Glargine,Hum.Rec.Anlog 100 Unit/Ml 10 Ml Vial) 46 unit SUBCUT BEDTIME [facility] Last Admin: 02/01/23 20:13 Dose: 46 unit Insulin Human Lispro (Insulin Lispro 100 Unit/Ml 3 Ml Vial) 0 unit SUBCUT TIDAC [facility]; Protocol Last Admin: 02/02/23 17:14 Dose: 6 unit Levothyroxine Sodium (Levothyroxine Sodium 75 Mcg Tablet) 75 mcg PO DAILY@0630 [facility] Last Admin: 02/02/23 06:12 Dose: 75 mcg Lidocaine (Lidocaine 4 % Patch Adh..Patch) 1 patch TRANSDERMA DAILY [facility]; Protocol Last Admin: 02/02/23 08:23 Dose: 1 patch Loperamide HCl (Loperamide Hcl 2 Mg Capsule) 2 mg PO Q6H PRN PRN Reason: diarrhea Last Admin: 01/17/23 03:35 Dose: 2 mg Magnesium Hydroxide (Milk Of Magnesia 30 Ml Oral.Susp) 30 ml PO DAILY PRN PRN Reason: Constipation Magnesium Hydroxide (Milk Of Magnesia 30 Ml Oral.Susp) 30 ml PO DAILY PRN PRN Reason: Constipation Memantine (Memantine Hcl 10 Mg Tablet) 10 mg PO BID [facility] Last Admin: 02/02/23 08:24 Dose: 10 mg Metoprolol Tartrate (Metoprolol Tartrate 25 Mg Tablet) 25 mg PO DAILY [facility]; Protocol Last Admin: 02/02/23 08:25 Dose: Not Given Quetiapine Fumarate (Quetiapine Fumarate 50 Mg Tablet) 50 mg PO Q6H PRN PRN Reason: agitation Last Admin: 01/08/23 23:46 Dose: 50 mg Sodium Biphosphate/Sodium Phosphate (Sodium Phosphate,[place]-Dibasic 133 Ml Enema) 133 ml [place] DAILY PRN PRN Reason: Constipation Trazodone HCl (Trazodone Hcl 50 Mg Tablet) 50 mg PO BEDTIME PRN PRN Reason: Insomnia Last Admin: 02/01/23 20:11 Dose: 50 mg Valsartan (Valsartan 80 Mg Tablet) 80 mg PO BEDTIME [facility]; Protocol Last Admin: 02/01/23 20:11 Dose: 80 mg Allergies Allergies Allergy/AdvReac Type Severity Reaction Status Date / Time aspirin [ASPIRIN] Allergy Unknown UNKNOWN Verified 01/01/23 09:43 Assessment & Plan Assessment & Plan (1) Major neurocognitive disorder: Status: Acute Code(s): F03.90 - Unspecified dementia, unspecified severity, without behavioral disturbance, psychotic disturbance, mood disturbance, and anxiety (2) Mood disorder: Status: Acute Code(s): F39 - Unspecified mood [affective] disorder Plan Ms. Landis is a 67 year-old woman with hx of Mood Disorder (untreated for most of her life) and neurocognitive disorder who was brought via EMS from [facility] due to increase verbal aggression towards roommate and one of their staff. Pt is known to this filing writer through previous assessment for similar presentation. Pt presents as calmer, she does admit to being verbally abusive, although denies any intent to harm self or others. She does lack the insight into how her behaviors affect others and her relationships with others. This tendency to have difficulty seeing other people's need per daughter has been life long. Pt presents with tendency to be irritable, at times explosive but not physically aggressive. She was started back in September on low dose of seroquel but no further medication adjustments have been made to manage these symptoms, which are disruptive but not life threatening nor at imminent risk of harm to self or others. As consequence of minimal intervention in the community, pt has had more frequent ED visits here and at [facility]. We discussed risks, benefits and alternative treatment options, pt agrees to start mood stabilizer for impulsive, explosive behaviors. We also discussed switching seroquel to risperidone. Pt is orientation has been intact all along. PLAN 01/20 schedule trazodone 50mg po qhs for sleep. 01/21 continue tx. depakote levels scheduled for tomorrow AM with ammonia levels. 01/22 trough depakote level 75, ammonia 41. continue tx. continue tx 01/24 continue tx. 01/25 continue tx. 01/26 continue tx. 01/27: continue current mgmt. 01/28: continue current mgmt. 01/29 continue tx. 01/30 continue tx. 01/31 continues tx-continue monitor bilat LE- doppler did not show DVT. 02/01: No change in medications, continue current plan of care. 02/02: Continue current plan. Reason for continued inpatient stay Substantial Risk for: inability to function, rapid decompensation and med/psych decompensation Time Spent With Patient Time: Total time managing care of this patient today ____ minutes.
[2023-02-02] MEDS: Valsartan 80 MG TABLET PO (21:09)
[2023-02-02] MEDS: Atorvastatin Calcium 20 MG TABLET PO (21:09)
[2023-02-03 06:00] VITALS: BP 129/95; PULSE 68; RESP 18; TEMP 36.4; O2SAT 99
--- NOTE | 2023-02-03 14:59 | HO.PSYCHPN ---
Subjective Subjective Date of Service: 02/03/23 Reason For Visit: Depression Interim History: Patient was seen and discussed in rounds today. Records and plans were reviewed. She has been cooperative, flat. She is mostly withdrawn but at times irritable. She is using a walker and is able to mobilized more. No changes were made today Review of Systems Review of Systems Yes all other systems are reviewed and are negative Mental Status Exam Mental Status Exam Narrative: Appearance: wearing street clothes, fair hygiene, in NAD Behavior: cooperative Psychomotor: no agitation noted Speech: clear, normal rate/rhythm/volume, spontaneous TP: linear TC: no overt delusional content noted or reported Mood: okay Affect: congruent SI: none expressed HI: none expressed VH/AH: none expressed Delusions: none expressed Insight/judgment: fair x 2. Memory/cog: alert, oriented x 3. Patient Appearance: Appropriate Patient Orientation: Person and Situation Level of Consciousness: Awake and Appropriate Patient Behavior: Guarded and Passive Mood Description: Withdrawn Affect Description: Constricted Patient Cognition Impaired: Yes Ability to Follow Directions: Fair Speech Pattern: Clear Diagnostics Vital Signs (24Hr): Vital Signs - 24 hr 02/02/23 18:00 02/03/23 06:00 Temperature 98.2 F 97.5 F Pulse Rate 68 68 Respiratory Rate 18 Blood Pressure 143/65 H 129/95 H Pulse Oximetry 99 99 Oxygen Delivery Method Room Air Room Air BMI result Body Mass Index 28.4 Labs 01/07/23 17:49 01/07/23 17:49 Labs: Laboratory Results - last 48 hr 02/01/23 02/01/23 02/02/23 16:29 19:41 06:14 POC Glucose 96 115 53 L* Estimat Average Glucose Hemoglobin A1c % 02/02/23 02/02/23 02/02/23 06:36 11:19 16:20 POC Glucose 81 163 H 288 H Estimat Average Glucose Hemoglobin A1c % 02/02/23 02/03/23 02/03/23 21:04 06:21 07:45 POC Glucose 253 H 217 H Estimat Average Glucose 223 Hemoglobin A1c % 9.4 H 02/03/23 11:22 POC Glucose 207 H Estimat Average Glucose Hemoglobin A1c % Imaging Radiology Impressions: ITS Impressions Venous Duplex 01/30/23 16:02 IMPRESSION: No DVT demonstrated in the bilateral lower extremity. Medications Medications Current Medications Acetaminophen (Acetaminophen 325 Mg Tablet) 650 mg PO Q6H PRN PRN Reason: Headache/Pain Mild Scale (1-3) Last Admin: 02/02/23 13:41 Dose: 650 mg Al Hydroxide/Mg Hydroxide (Magnesium Hydrox/Alum Hydrox 30 Ml Oral.Susp) 30 ml PO Q6H PRN PRN Reason: Heartburn/Nausea Atorvastatin Calcium (Atorvastatin Calcium 20 Mg Tablet) 20 mg PO BEDTIME [facility] Last Admin: 02/02/23 21:09 Dose: 20 mg Bisacodyl (Bisacodyl 10 Mg Supp.Rect) 10 mg UT DAILY PRN PRN Reason: Constipation Clopidogrel Bisulfate (Clopidogrel Bisulfate 75 Mg Tablet) 75 mg PO DAILY [facility] Last Admin: 02/03/23 08:36 Dose: 75 mg Divalproex Sodium (Divalproex Sodium 500 Mg Tablet.) 500 mg PO BEDTIME [facility] Last Admin: 02/02/23 21:09 Dose: 500 mg Divalproex Sodium (Divalproex Sodium 250 Mg Tablet.) 250 mg PO DAILY [facility] Last Admin: 02/03/23 08:35 Dose: 250 mg Donepezil HCl (Donepezil Hcl 10 Mg Tablet) 10 mg PO BEDTIME [facility] Last Admin: 02/02/23 21:09 Dose: 10 mg Escitalopram Oxalate (Escitalopram Oxalate 10 Mg Tablet) 10 mg PO DAILY [facility] Last Admin: 02/03/23 08:35 Dose: 10 mg Gabapentin (Gabapentin 600 Mg Tablet) 1,200 mg PO BEDTIME [facility] Last Admin: 02/02/23 21:09 Dose: 1,200 mg Glucagon (Glucagon Hcl 1 Mg Vial) 1 mg SUBCUT Q20M PRN PRN Reason: BG <70 AND UNRESPONSIVE Glucose (Glucose Gel 15 Gm Gel..Gram.) 15 gm PO Q15M PRN PRN Reason: BG <70 AND RESPONSIVE Last Admin: 01/30/23 03:12 Dose: 15 gm Insulin Glargine (Insulin Glargine,Hum.Rec.Anlog 100 Unit/Ml 10 Ml Vial) 50 unit SUBCUT BEDTIME [facility] Insulin Human Lispro (Insulin Lispro 100 Unit/Ml 3 Ml Vial) 0 unit SUBCUT TIDAC [facility]; Protocol Last Admin: 02/03/23 11:41 Dose: 6 unit Levothyroxine Sodium (Levothyroxine Sodium 75 Mcg Tablet) 75 mcg PO DAILY@0630 [facility] Last Admin: 02/03/23 06:18 Dose: 75 mcg Lidocaine (Lidocaine 4 % Patch Adh..Patch) 1 patch TRANSDERMA DAILY [facility]; Protocol Last Admin: 02/03/23 08:34 Dose: 1 patch Loperamide HCl (Loperamide Hcl 2 Mg Capsule) 2 mg PO Q6H PRN PRN Reason: diarrhea Last Admin: 01/17/23 03:35 Dose: 2 mg Magnesium Hydroxide (Milk Of Magnesia 30 Ml Oral.Susp) 30 ml PO DAILY PRN PRN Reason: Constipation Magnesium Hydroxide (Milk Of Magnesia 30 Ml Oral.Susp) 30 ml PO DAILY PRN PRN Reason: Constipation Memantine (Memantine Hcl 10 Mg Tablet) 10 mg PO BID [facility] Last Admin: 02/03/23 08:35 Dose: 10 mg Metoprolol Tartrate (Metoprolol Tartrate 25 Mg Tablet) 25 mg PO DAILY [facility]; Protocol Last Admin: 02/03/23 08:35 Dose: 25 mg Quetiapine Fumarate (Quetiapine Fumarate 50 Mg Tablet) 50 mg PO Q6H PRN PRN Reason: agitation Last Admin: 01/08/23 23:46 Dose: 50 mg Sodium Biphosphate/Sodium Phosphate (Sodium Phosphate,[place]-Dibasic 133 Ml Enema) 133 ml [place] DAILY PRN PRN Reason: Constipation Trazodone HCl (Trazodone Hcl 50 Mg Tablet) 50 mg PO BEDTIME PRN PRN Reason: Insomnia Last Admin: 02/01/23 20:11 Dose: 50 mg Valsartan (Valsartan 80 Mg Tablet) 80 mg PO BEDTIME [facility]; Protocol Last Admin: 02/02/23 21:09 Dose: 80 mg Allergies Allergies Allergy/AdvReac Type Severity Reaction Status Date / Time aspirin [ASPIRIN] Allergy Unknown UNKNOWN Verified 01/01/23 09:43 Assessment & Plan Assessment & Plan (1) Major neurocognitive disorder: Status: Acute Code(s): F03.90 - Unspecified dementia, unspecified severity, without behavioral disturbance, psychotic disturbance, mood disturbance, and anxiety (2) Mood disorder: Status: Acute Code(s): F39 - Unspecified mood [affective] disorder Plan Ms. Landis is a 67 year-old woman with hx of Mood Disorder (untreated for most of her life) and neurocognitive disorder who was brought via EMS from [facility] due to increase verbal aggression towards roommate and one of their staff. Pt is known to this check writer salesperson through previous assessment for similar presentation. Pt presents as calmer, she does admit to being verbally abusive, although denies any intent to harm self or others. She does lack the insight into how her behaviors affect others and her relationships with others. This tendency to have difficulty seeing other people's need per daughter has been life long. Pt presents with tendency to be irritable, at times explosive but not physically aggressive. She was started back in September on low dose of seroquel but no further medication adjustments have been made to manage these symptoms, which are disruptive but not life threatening nor at imminent risk of harm to self or others. As consequence of minimal intervention in the community, pt has had more frequent ED visits here and at [facility]. We discussed risks, benefits and alternative treatment options, pt agrees to start mood stabilizer for impulsive, explosive behaviors. We also discussed switching seroquel to risperidone. Pt is orientation has been intact all along. PLAN 01/20 schedule trazodone 50mg po qhs for sleep. 01/21 continue tx. depakote levels scheduled for tomorrow AM with ammonia levels. 01/22 trough depakote level 75, ammonia 41. continue tx. continue tx 01/24 continue tx. 01/25 continue tx. 01/26 continue tx. 01/27: continue current mgmt. 01/28: continue current mgmt. 01/29 continue tx. 01/30 continue tx. 01/31 continues tx-continue monitor bilat LE- doppler did not show DVT. 02/01: No change in medications, continue current plan of care. 02/02: Continue current plan. 02/03: Continue current plans and regimen Reason for continued inpatient stay Substantial Risk for: inability to function Time Spent With Patient Time: Total time managing care of this patient today ____ minutes.
[2023-02-03 18:00] VITALS: BP 128/78; PULSE 66; RESP 16; TEMP 36.8; O2SAT 97
[2023-02-03] MEDS: Valsartan 80 MG TABLET PO (21:24)
[2023-02-03] MEDS: Atorvastatin Calcium 20 MG TABLET PO (21:24)
[2023-02-04 08:15] VITALS: BP 110/68; PULSE 66; RESP 18; TEMP 36.2; O2SAT 97
--- NOTE | 2023-02-04 09:18 | HO.PSYCHPN ---
Subjective Subjective Date of Service: 02/04/23 Reason For Visit: Depression Subjective Notes: Conditional Voluntary Interim History: Pt reports that weekend was the same as every day, there's nothing to do here! She reports feeling safe on the unit and staff treating her well. She reports less leg pain but states walker does help. She denies SI/HI. No behavioral concerns. No signs of psychosis. Medication Compliance: Yes Review of Systems Review of Systems Pt denies chest pain. Pt denies feeling dizzy Denies SOB Denies coughing No constipation or diarrhea Pt reports neck pain Yes all other systems are reviewed and are negative Mental Status Exam Mental Status Exam Narrative: Appearance: wearing street clothes, fair hygiene, in NAD Behavior: cooperative Psychomotor: no agitation noted Speech: clear, normal rate/rhythm/volume, spontaneous TP: linear TC: no overt delusional content noted or reported Mood: okay Affect: congruent SI: none expressed HI: none expressed VH/AH: none expressed Delusions: none expressed Insight/judgment: fair x 2. Memory/cog: alert, oriented x 3. Diagnostics Vital Signs (24Hr): Vital Signs - 24 hr 02/03/23 18:00 02/04/23 08:15 Temperature 98.3 F 97.1 F Pulse Rate 66 66 Respiratory Rate 16 18 Blood Pressure 128/78 110/68 Pulse Oximetry 97 97 Oxygen Delivery Method Room Air Room Air BMI result Body Mass Index 28.4 Labs 01/07/23 17:49 01/07/23 17:49 Labs: Laboratory Results - last 48 hr 02/02/23 02/02/23 02/02/23 11:19 16:20 21:04 POC Glucose 163 H 288 H 253 H Estimat Average Glucose Hemoglobin A1c % 02/03/23 02/03/23 02/03/23 06:21 07:45 11:22 POC Glucose 217 H 207 H Estimat Average Glucose 223 Hemoglobin A1c % 9.4 H 02/03/23 02/03/23 02/04/23 16:32 21:07 06:16 POC Glucose 160 H 242 H 85 Estimat Average Glucose Hemoglobin A1c % Imaging Radiology Impressions: ITS Impressions Venous Duplex 01/30/23 16:02 IMPRESSION: No DVT demonstrated in the bilateral lower extremity. Medications Medications Current Medications Acetaminophen (Acetaminophen 325 Mg Tablet) 650 mg PO Q6H PRN PRN Reason: Headache/Pain Mild Scale (1-3) Last Admin: 02/02/23 13:41 Dose: 650 mg Al Hydroxide/Mg Hydroxide (Magnesium Hydrox/Alum Hydrox 30 Ml Oral.Susp) 30 ml PO Q6H PRN PRN Reason: Heartburn/Nausea Atorvastatin Calcium (Atorvastatin Calcium 20 Mg Tablet) 20 mg PO BEDTIME [facility] Last Admin: 02/03/23 21:24 Dose: 20 mg Bisacodyl (Bisacodyl 10 Mg Supp.Rect) 10 mg DE DAILY PRN PRN Reason: Constipation Clopidogrel Bisulfate (Clopidogrel Bisulfate 75 Mg Tablet) 75 mg PO DAILY [facility] Last Admin: 02/04/23 08:31 Dose: 75 mg Divalproex Sodium (Divalproex Sodium 500 Mg Tablet.Dr) 500 mg PO BEDTIME [facility] Last Admin: 02/03/23 21:25 Dose: 500 mg Divalproex Sodium (Divalproex Sodium 250 Mg Tablet.Dr) 250 mg PO DAILY [facility] Last Admin: 02/04/23 08:31 Dose: 250 mg Donepezil HCl (Donepezil Hcl 10 Mg Tablet) 10 mg PO BEDTIME [facility] Last Admin: 02/03/23 21:25 Dose: 10 mg Escitalopram Oxalate (Escitalopram Oxalate 10 Mg Tablet) 10 mg PO DAILY [facility] Last Admin: 02/04/23 08:31 Dose: 10 mg Gabapentin (Gabapentin 600 Mg Tablet) 1,200 mg PO BEDTIME [facility] Last Admin: 02/03/23 21:25 Dose: 1,200 mg Glucagon (Glucagon Hcl 1 Mg Vial) 1 mg SUBCUT Q20M PRN PRN Reason: BG <70 AND UNRESPONSIVE Glucose (Glucose Gel 15 Gm Gel..Gram.) 15 gm PO Q15M PRN PRN Reason: BG <70 AND RESPONSIVE Last Admin: 01/30/23 03:12 Dose: 15 gm Insulin Glargine (Insulin Glargine,Hum.Rec.Anlog 100 Unit/Ml 10 Ml Vial) 50 unit SUBCUT BEDTIME [facility] Last Admin: 02/03/23 21:17 Dose: 50 unit Insulin Human Lispro (Insulin Lispro 100 Unit/Ml 3 Ml Vial) 0 unit SUBCUT TIDAC [facility]; Protocol Last Admin: 02/04/23 08:37 Dose: Not Given Levothyroxine Sodium (Levothyroxine Sodium 75 Mcg Tablet) 75 mcg PO DAILY@0630 [facility] Last Admin: 02/04/23 06:18 Dose: 75 mcg Lidocaine (Lidocaine 4 % Patch Adh..Patch) 1 patch TRANSDERMA DAILY [facility]; Protocol Last Admin: 02/04/23 08:32 Dose: 1 patch Loperamide HCl (Loperamide Hcl 2 Mg Capsule) 2 mg PO Q6H PRN PRN Reason: diarrhea Last Admin: 01/17/23 03:35 Dose: 2 mg Magnesium Hydroxide (Milk Of Magnesia 30 Ml Oral.Susp) 30 ml PO DAILY PRN PRN Reason: Constipation Magnesium Hydroxide (Milk Of Magnesia 30 Ml Oral.Susp) 30 ml PO DAILY PRN PRN Reason: Constipation Memantine (Memantine Hcl 10 Mg Tablet) 10 mg PO BID [facility] Last Admin: 02/04/23 08:31 Dose: 10 mg Metoprolol Tartrate (Metoprolol Tartrate 25 Mg Tablet) 25 mg PO DAILY [facility]; Protocol Last Admin: 02/04/23 08:31 Dose: 25 mg Quetiapine Fumarate (Quetiapine Fumarate 50 Mg Tablet) 50 mg PO Q6H PRN PRN Reason: agitation Last Admin: 01/08/23 23:46 Dose: 50 mg Sodium Biphosphate/Sodium Phosphate (Sodium Phosphate,[place]-Dibasic 133 Ml Enema) 133 ml [place] DAILY PRN PRN Reason: Constipation Trazodone HCl (Trazodone Hcl 50 Mg Tablet) 50 mg PO BEDTIME PRN PRN Reason: Insomnia Last Admin: 02/03/23 21:22 Dose: 50 mg Valsartan (Valsartan 80 Mg Tablet) 80 mg PO BEDTIME [facility]; Protocol Last Admin: 02/03/23 21:24 Dose: 80 mg Allergies Allergies Allergy/AdvReac Type Severity Reaction Status Date / Time aspirin [ASPIRIN] Allergy Unknown UNKNOWN Verified 01/01/23 09:43 Assessment & Plan Assessment & Plan (1) Major neurocognitive disorder: Status: Acute Code(s): F03.90 - Unspecified dementia, unspecified severity, without behavioral disturbance, psychotic disturbance, mood disturbance, and anxiety (2) Mood disorder: Status: Acute Code(s): F39 - Unspecified mood [affective] disorder Plan Ms. Landis is a 67 year-old woman with hx of Mood Disorder (untreated for most of her life) and neurocognitive disorder who was brought via EMS from [facility] due to increase verbal aggression towards roommate and one of their staff. Pt is known to this job specification writer through previous assessment for similar presentation. Pt presents as calmer, she does admit to being verbally abusive, although denies any intent to harm self or others. She does lack the insight into how her behaviors affect others and her relationships with others. This tendency to have difficulty seeing other people's need per daughter has been life long. Pt presents with tendency to be irritable, at times explosive but not physically aggressive. She was started back in September on low dose of seroquel but no further medication adjustments have been made to manage these symptoms, which are disruptive but not life threatening nor at imminent risk of harm to self or others. As consequence of minimal intervention in the community, pt has had more frequent ED visits here and at [facility]. We discussed risks, benefits and alternative treatment options, pt agrees to start mood stabilizer for impulsive, explosive behaviors. We also discussed switching seroquel to risperidone. Pt is orientation has been intact all along. PLAN 01/20 schedule trazodone 50mg po qhs for sleep. 01/21 continue tx. depakote levels scheduled for tomorrow AM with ammonia levels. 01/22 trough depakote level 75, ammonia 41. continue tx. continue tx 01/24 continue tx. 01/25 continue tx. 01/26 continue tx. 01/27: continue current mgmt. 01/28: continue current mgmt. 01/29 continue tx. 01/30 continue tx. 01/31 continues tx-continue monitor bilat LE- doppler did not show DVT. 02/01: No change in medications, continue current plan of care. 02/02: Continue current plan. 02/03: Continue current plans and regimen 02/04 continue tx. Reason for continued inpatient stay Substantial Risk for: inability to function Time Spent With Patient Time: Total time managing care of this patient today ____ minutes.
[2023-02-04 18:00] VITALS: BP 121/57; PULSE 60; RESP 16; TEMP 36.2; O2SAT 96
[2023-02-04] MEDS: Valsartan 80 MG TABLET PO (21:05)
[2023-02-04] MEDS: Atorvastatin Calcium 20 MG TABLET PO (21:06)
[2023-02-05 08:05] VITALS: BP 118/62; PULSE 61; RESP 16; TEMP 36.2; O2SAT 97
--- NOTE | 2023-02-05 08:43 | HO.PSYCHPN ---
Subjective Subjective Date of Service: 02/05/23 Reason For Visit: Depression Subjective Notes: Conditional Voluntary Interim History: Pt reports sleeping well. She was seen by hospitalist due to bilat leg pain. recommended teresita wolff. hospitalist ordered ck, and cmp. but pt declined lab work stating she has had too many blood drawn Pt denies SI/HI. Medication Compliance: Yes Review of Systems Review of Systems Pt denies chest pain. Pt denies feeling dizzy Denies SOB Denies coughing No constipation or diarrhea Pt reports neck pain Yes all other systems are reviewed and are negative Mental Status Exam Mental Status Exam Narrative: Appearance: wearing street clothes, fair hygiene, in NAD Behavior: cooperative Psychomotor: no agitation noted Speech: clear, normal rate/rhythm/volume, spontaneous TP: linear TC: no overt delusional content noted or reported Mood: okay Affect: congruent SI: none expressed HI: none expressed VH/AH: none expressed Delusions: none expressed Insight/judgment: fair x 2. Memory/cog: alert, oriented x 3. Diagnostics Vital Signs (24Hr): Vital Signs - 24 hr 02/04/23 18:00 Temperature 97.1 F Pulse Rate 60 Respiratory Rate 16 Blood Pressure 121/57 L Pulse Oximetry 96 Oxygen Delivery Method Room Air BMI result Body Mass Index 28.4 Labs 01/07/23 17:49 01/07/23 17:49 Labs: Laboratory Results - last 48 hr 02/03/23 02/03/23 02/03/23 11:22 16:32 21:07 POC Glucose 207 H 160 H 242 H 02/04/23 02/04/23 02/04/23 06:16 11:37 16:29 POC Glucose 85 360 H* 139 H 02/04/23 02/05/23 20:51 05:59 POC Glucose 226 H 84 Imaging Radiology Impressions: ITS Impressions Venous Duplex 01/30/23 16:02 IMPRESSION: No DVT demonstrated in the bilateral lower extremity. Medications Medications Current Medications Acetaminophen (Acetaminophen 325 Mg Tablet) 650 mg PO Q6H PRN PRN Reason: Headache/Pain Mild Scale (1-3) Last Admin: 02/02/23 13:41 Dose: 650 mg Al Hydroxide/Mg Hydroxide (Magnesium Hydrox/Alum Hydrox 30 Ml Oral.Susp) 30 ml PO Q6H PRN PRN Reason: Heartburn/Nausea Atorvastatin Calcium (Atorvastatin Calcium 20 Mg Tablet) 20 mg PO BEDTIME [facility] Last Admin: 02/04/23 21:06 Dose: 20 mg Bisacodyl (Bisacodyl 10 Mg Supp.Rect) 10 mg [place] DAILY PRN PRN Reason: Constipation Clopidogrel Bisulfate (Clopidogrel Bisulfate 75 Mg Tablet) 75 mg PO DAILY [facility] Last Admin: 02/05/23 08:14 Dose: 75 mg Divalproex Sodium (Divalproex Sodium 500 Mg Tablet.) 500 mg PO BEDTIME [facility] Last Admin: 02/04/23 21:05 Dose: 500 mg Divalproex Sodium (Divalproex Sodium 250 Mg Tablet.) 250 mg PO DAILY [facility] Last Admin: 02/05/23 08:14 Dose: 250 mg Donepezil HCl (Donepezil Hcl 10 Mg Tablet) 10 mg PO BEDTIME [facility] Last Admin: 02/04/23 21:06 Dose: 10 mg Escitalopram Oxalate (Escitalopram Oxalate 10 Mg Tablet) 10 mg PO DAILY [facility] Last Admin: 02/05/23 08:14 Dose: 10 mg Gabapentin (Gabapentin 600 Mg Tablet) 1,200 mg PO BEDTIME [facility] Last Admin: 02/04/23 21:04 Dose: 1,200 mg Glucagon (Glucagon Hcl 1 Mg Vial) 1 mg SUBCUT Q20M PRN PRN Reason: BG <70 AND UNRESPONSIVE Glucose (Glucose Gel 15 Gm Gel..Gram.) 15 gm PO Q15M PRN PRN Reason: BG <70 AND RESPONSIVE Last Admin: 01/30/23 03:12 Dose: 15 gm Insulin Glargine (Insulin Glargine,Hum.Rec.Anlog 100 Unit/Ml 10 Ml Vial) 50 unit SUBCUT BEDTIME [facility] Last Admin: 02/04/23 21:07 Dose: 50 unit Insulin Human Lispro (Insulin Lispro 100 Unit/Ml 3 Ml Vial) 0 unit SUBCUT TIDAC [facility]; Protocol Last Admin: 02/05/23 08:20 Dose: Not Given Levothyroxine Sodium (Levothyroxine Sodium 75 Mcg Tablet) 75 mcg PO DAILY@0630 [facility] Last Admin: 02/05/23 06:01 Dose: 75 mcg Lidocaine (Lidocaine 4 % Patch Adh..Patch) 1 patch TRANSDERMA DAILY [facility]; Protocol Last Admin: 02/05/23 08:13 Dose: 1 patch Loperamide HCl (Loperamide Hcl 2 Mg Capsule) 2 mg PO Q6H PRN PRN Reason: diarrhea Last Admin: 01/17/23 03:35 Dose: 2 mg Magnesium Hydroxide (Milk Of Magnesia 30 Ml Oral.Susp) 30 ml PO DAILY PRN PRN Reason: Constipation Magnesium Hydroxide (Milk Of Magnesia 30 Ml Oral.Susp) 30 ml PO DAILY PRN PRN Reason: Constipation Memantine (Memantine Hcl 10 Mg Tablet) 10 mg PO BID [facility] Last Admin: 02/05/23 08:14 Dose: 10 mg Metoprolol Tartrate (Metoprolol Tartrate 25 Mg Tablet) 25 mg PO DAILY [facility]; Protocol Last Admin: 02/05/23 08:14 Dose: 25 mg Quetiapine Fumarate (Quetiapine Fumarate 50 Mg Tablet) 50 mg PO Q6H PRN PRN Reason: agitation Last Admin: 01/08/23 23:46 Dose: 50 mg Sodium Biphosphate/Sodium Phosphate (Sodium Phosphate,[place]-Dibasic 133 Ml Enema) 133 ml [place] DAILY PRN PRN Reason: Constipation Trazodone HCl (Trazodone Hcl 50 Mg Tablet) 50 mg PO BEDTIME PRN PRN Reason: Insomnia Last Admin: 02/04/23 21:04 Dose: 50 mg Valsartan (Valsartan 80 Mg Tablet) 80 mg PO BEDTIME [facility]; Protocol Last Admin: 02/04/23 21:05 Dose: 80 mg Allergies Allergies Allergy/AdvReac Type Severity Reaction Status Date / Time aspirin [ASPIRIN] Allergy Unknown UNKNOWN Verified 01/01/23 09:43 Assessment & Plan Assessment & Plan (1) Major neurocognitive disorder: Status: Acute Code(s): F03.90 - Unspecified dementia, unspecified severity, without behavioral disturbance, psychotic disturbance, mood disturbance, and anxiety (2) Mood disorder: Status: Acute Code(s): F39 - Unspecified mood [affective] disorder Plan Ms. Landis is a 67 year-old woman with hx of Mood Disorder (untreated for most of her life) and neurocognitive disorder who was brought via EMS from [facility] due to increase verbal aggression towards roommate and one of their staff. Pt is known to this travel writer through previous assessment for similar presentation. Pt presents as calmer, she does admit to being verbally abusive, although denies any intent to harm self or others. She does lack the insight into how her behaviors affect others and her relationships with others. This tendency to have difficulty seeing other people's need per daughter has been life long. Pt presents with tendency to be irritable, at times explosive but not physically aggressive. She was started back in September on low dose of seroquel but no further medication adjustments have been made to manage these symptoms, which are disruptive but not life threatening nor at imminent risk of harm to self or others. As consequence of minimal intervention in the community, pt has had more frequent ED visits here and at [facility]. We discussed risks, benefits and alternative treatment options, pt agrees to start mood stabilizer for impulsive, explosive behaviors. We also discussed switching seroquel to risperidone. Pt is orientation has been intact all along. PLAN 01/20 schedule trazodone 50mg po qhs for sleep. 01/21 continue tx. depakote levels scheduled for tomorrow AM with ammonia levels. 01/22 trough depakote level 75, ammonia 41. continue tx. continue tx 01/24 continue tx. 01/25 continue tx. 01/26 continue tx. 01/27: continue current mgmt. 01/28: continue current mgmt. 01/29 continue tx. 01/30 continue tx. 01/31 continues tx-continue monitor bilat LE- doppler did not show DVT. 02/01: No change in medications, continue current plan of care. 02/02: Continue current plan. 02/03: Continue current plans and regimen 02/04 continue tx. 02/05 continue tx. Reason for continued inpatient stay Substantial Risk for: inability to function Time Spent With Patient Time: Total time managing care of this patient today ____ minutes.
[2023-02-05] MEDS: Insulin Lispro 100 UNIT/ML 3 ML VIAL SUBCUT ×2 (16:24→16:28)
[2023-02-05 18:00] VITALS: BP 129/60; PULSE 59; RESP 17; TEMP 36; O2SAT 100
[2023-02-05 19:50] LABS: Glucose, Whole Blood 196 mg/dL (60-115)
[2023-02-05] MEDS: Valsartan 80 MG TABLET PO (20:16)
[2023-02-05] MEDS: Gabapentin 600 MG TABLET 1200 MG PO (20:16)
[2023-02-05] MEDS: Donepezil HCl 10 MG TABLET PO (20:17)
[2023-02-05] MEDS: Divalproex Sodium 500 MG TABLET.DR PO (20:17)
[2023-02-05] MEDS: Atorvastatin Calcium 20 MG TABLET PO (20:17)
[2023-02-05] MEDS: Memantine HCl 10 MG TABLET PO (20:17)
[2023-02-05] MEDS: Insulin Glargine,Hum.rec.anlog 100 UNIT/ML 10 ML VIAL 50 UNIT SUBCUT (20:21)
[2023-02-06] MEDS: Levothyroxine Sodium 75 MCG TABLET PO (06:01)
[2023-02-06 06:20] LABS: Glucose, Whole Blood 135 mg/dL (60-115)
[2023-02-06 07:00] VITALS: BMI 28.4
[2023-02-06 08:10] VITALS: BP 134/62; PULSE 61; RESP 20; TEMP 36.1; O2SAT 97
[2023-02-06] MEDS: Escitalopram Oxalate 10 MG TABLET PO (11:18)
[2023-02-06] MEDS: Clopidogrel Bisulfate 75 MG TABLET PO (11:18)
[2023-02-06] MEDS: Memantine HCl 10 MG TABLET PO ×2 (11:18→20:22)
[2023-02-06] MEDS: Lidocaine 4 % Patch ADH..PATCH 1 PATCH TRANSDERMA (11:18)
[2023-02-06] MEDS: Metoprolol Tartrate 25 MG TABLET PO (11:18)
[2023-02-06] MEDS: Divalproex Sodium 250 MG TABLET.DR PO (11:18)
[2023-02-06 11:34] LABS: Glucose, Whole Blood 248 mg/dL (60-115)
[2023-02-06] MEDS: Insulin Lispro 100 UNIT/ML 3 ML VIAL SUBCUT ×2 (12:07→17:06)
--- NOTE | 2023-02-06 14:25 | P.PNPSI_ITS ---
Subjective Subjective Date of Service: 02/06/23 Reason For Visit: Depression Subjective Notes: Conditional Voluntary Interim History: Pt reports feeling well. She reports bilat leg pain less, still using walker. She denies SI/HI. No VH/AH. Pt sleeping through the night. Review of Systems Review of Systems Pt denies chest pain. Pt denies feeling dizzy Denies SOB Denies coughing No constipation or diarrhea Pt reports neck pain Yes all other systems are reviewed and are negative Mental Status Exam Mental Status Exam Narrative: Appearance: wearing street clothes, fair hygiene, in NAD Behavior: cooperative Psychomotor: no agitation noted Speech: clear, normal rate/rhythm/volume, spontaneous TP: linear TC: no overt delusional content noted or reported Mood: okay Affect: congruent SI: none expressed HI: none expressed VH/AH: none expressed Delusions: none expressed Insight/judgment: fair x 2. Memory/cog: alert, oriented x 3. Diagnostics Vital Signs (24Hr): Vital Signs - 24 hr 02/05/23 18:00 02/06/23 08:10 Temperature 96.8 F 97.0 F Pulse Rate 59 61 Respiratory Rate 17 20 Blood Pressure 129/60 134/62 Pulse Oximetry 100 97 Oxygen Delivery Method Room Air BMI result Body Mass Index 28.4 Labs 01/07/23 17:49 01/07/23 17:49 Labs: Laboratory Results - last 48 hr 02/04/23 02/04/23 02/04/23 11:37 16:29 20:51 POC Glucose 360 H* 139 H 226 H 02/05/23 02/05/23 02/05/23 05:59 11:56 16:03 POC Glucose 84 282 H 211 H 02/05/23 02/06/23 02/06/23 19:45 06:04 11:23 POC Glucose 196 H 135 H 248 H Imaging Radiology Impressions: ITS Impressions Venous Duplex 01/30/23 16:02 IMPRESSION: No DVT demonstrated in the bilateral lower extremity. Medications Medications Current Medications Acetaminophen (Acetaminophen 325 Mg Tablet) 650 mg PO Q6H PRN PRN Reason: Headache/Pain Mild Scale (1-3) Last Admin: 02/02/23 13:41 Dose: 650 mg Al Hydroxide/Mg Hydroxide (Magnesium Hydrox/Alum Hydrox 30 Ml Oral.Susp) 30 ml PO Q6H PRN PRN Reason: Heartburn/Nausea Atorvastatin Calcium (Atorvastatin Calcium 20 Mg Tablet) 20 mg PO BEDTIME [facility] Last Admin: 02/05/23 20:17 Dose: 20 mg Bisacodyl (Bisacodyl 10 Mg Supp.Rect) 10 mg HI DAILY PRN PRN Reason: Constipation Clopidogrel Bisulfate (Clopidogrel Bisulfate 75 Mg Tablet) 75 mg PO DAILY [facility] Last Admin: 02/06/23 11:18 Dose: 75 mg Divalproex Sodium (Divalproex Sodium 500 Mg Tablet.) 500 mg PO BEDTIME [facility] Last Admin: 02/05/23 20:17 Dose: 500 mg Divalproex Sodium (Divalproex Sodium 250 Mg Tablet.) 250 mg PO DAILY [facility] Last Admin: 02/06/23 11:18 Dose: 250 mg Donepezil HCl (Donepezil Hcl 10 Mg Tablet) 10 mg PO BEDTIME [facility] Last Admin: 02/05/23 20:17 Dose: 10 mg Escitalopram Oxalate (Escitalopram Oxalate 10 Mg Tablet) 10 mg PO DAILY [facility] Last Admin: 02/06/23 11:18 Dose: 10 mg Gabapentin (Gabapentin 600 Mg Tablet) 1,200 mg PO BEDTIME [facility] Last Admin: 02/05/23 20:16 Dose: 1,200 mg Glucagon (Glucagon Hcl 1 Mg Vial) 1 mg SUBCUT Q20M PRN PRN Reason: BG <70 AND UNRESPONSIVE Glucose (Glucose Gel 15 Gm Gel..Gram.) 15 gm PO Q15M PRN PRN Reason: BG <70 AND RESPONSIVE Last Admin: 01/30/23 03:12 Dose: 15 gm Insulin Glargine (Insulin Glargine,Hum.Rec.Anlog 100 Unit/Ml 10 Ml Vial) 50 unit SUBCUT BEDTIME [facility] Last Admin: 02/05/23 20:21 Dose: 50 unit Insulin Human Lispro (Insulin Lispro 100 Unit/Ml 3 Ml Vial) 0 unit SUBCUT TIDAC [facility]; Protocol Last Admin: 02/06/23 12:07 Dose: 6 unit Levothyroxine Sodium (Levothyroxine Sodium 75 Mcg Tablet) 75 mcg PO DAILY@0630 [facility] Last Admin: 02/06/23 06:01 Dose: 75 mcg Lidocaine (Lidocaine 4 % Patch Adh..Patch) 1 patch TRANSDERMA DAILY [facility]; Protocol Last Admin: 02/06/23 11:18 Dose: 1 patch Loperamide HCl (Loperamide Hcl 2 Mg Capsule) 2 mg PO Q6H PRN PRN Reason: diarrhea Last Admin: 01/17/23 03:35 Dose: 2 mg Magnesium Hydroxide (Milk Of Magnesia 30 Ml Oral.Susp) 30 ml PO DAILY PRN PRN Reason: Constipation Magnesium Hydroxide (Milk Of Magnesia 30 Ml Oral.Susp) 30 ml PO DAILY PRN PRN Reason: Constipation Memantine (Memantine Hcl 10 Mg Tablet) 10 mg PO BID [facility] Last Admin: 02/06/23 11:18 Dose: 10 mg Metoprolol Tartrate (Metoprolol Tartrate 25 Mg Tablet) 25 mg PO DAILY [facility]; Protocol Last Admin: 02/06/23 11:18 Dose: 25 mg Quetiapine Fumarate (Quetiapine Fumarate 50 Mg Tablet) 50 mg PO Q6H PRN PRN Reason: agitation Last Admin: 01/08/23 23:46 Dose: 50 mg Sodium Biphosphate/Sodium Phosphate (Sodium Phosphate,[place]-Dibasic 133 Ml Enema) 133 ml HI DAILY PRN PRN Reason: Constipation Trazodone HCl (Trazodone Hcl 50 Mg Tablet) 50 mg PO BEDTIME PRN PRN Reason: Insomnia Last Admin: 02/04/23 21:04 Dose: 50 mg Valsartan (Valsartan 80 Mg Tablet) 80 mg PO BEDTIME [facility]; Protocol Last Admin: 02/05/23 20:16 Dose: 80 mg Allergies Allergies Allergy/AdvReac Type Severity Reaction Status Date / Time aspirin [ASPIRIN] Allergy Unknown UNKNOWN Verified 01/01/23 09:43 Assessment & Plan Assessment & Plan (1) Major neurocognitive disorder: Status: Acute Code(s): F03.90 - Unspecified dementia, unspecified severity, without behavioral disturbance, psychotic disturbance, mood disturbance, and anxiety (2) Mood disorder: Status: Acute Code(s): F39 - Unspecified mood [affective] disorder Plan Ms. Landis is a 67 year-old woman with hx of Mood Disorder (untreated for most of her life) and neurocognitive disorder who was brought via EMS from [facility] due to increase verbal aggression towards roommate and one of their staff. Pt is known to this auto service writer through previous assessment for similar presentation. Pt presents as calmer, she does admit to being verbally abusive, although denies any intent to harm self or others. She does lack the insight into how her behaviors affect others and her relationships with others. This tendency to have difficulty seeing other people's need per daughter has been life long. Pt presents with tendency to be irritable, at times explosive but not physically aggressive. She was started back in September on low dose of seroquel but no further medication adjustments have been made to manage these symptoms, which are disruptive but not life threatening nor at imminent risk of harm to self or others. As consequence of minimal intervention in the community, pt has had more frequent ED visits here and at [facility]. We discussed risks, benefits and alternative treatment options, pt agrees to start mood stabilizer for impulsive, explosive behaviors. We also discussed switching seroquel to risperidone. Pt is orientation has been intact all along. PLAN 01/20 schedule trazodone 50mg po qhs for sleep. 01/21 continue tx. depakote levels scheduled for tomorrow AM with ammonia levels. 01/22 trough depakote level 75, ammonia 41. continue tx. continue tx 01/24 continue tx. 01/25 continue tx. 01/26 continue tx. 01/27: continue current mgmt. 01/28: continue current mgmt. 01/29 continue tx. 01/30 continue tx. 01/31 continues tx-continue monitor bilat LE- doppler did not show DVT. 02/01: No change in medications, continue current plan of care. 02/02: Continue current plan. 02/03: Continue current plans and regimen 02/04 continue tx. 02/05 continue tx. 02/06 continue tx. Reason for continued inpatient stay Substantial Risk for: inability to function Time Spent With Patient Time: Total time managing care of this patient today ____ minutes.
[2023-02-06 16:14] LABS: Glucose, Whole Blood 246 mg/dL (60-115)
[2023-02-06 18:00] VITALS: BP 139/66; PULSE 61; RESP 16; TEMP 36.3; O2SAT 98
[2023-02-06] MEDS: Insulin Glargine,Hum.rec.anlog 100 UNIT/ML 10 ML VIAL 50 UNIT SUBCUT (20:21)
[2023-02-06] MEDS: Valsartan 80 MG TABLET PO (20:22)
[2023-02-06] MEDS: Divalproex Sodium 500 MG TABLET.DR PO (20:22)
[2023-02-06] MEDS: Atorvastatin Calcium 20 MG TABLET PO (20:22)
[2023-02-06] MEDS: Gabapentin 600 MG TABLET 1200 MG PO (20:22)
[2023-02-06] MEDS: Donepezil HCl 10 MG TABLET PO (20:23)
[2023-02-06 20:31] LABS: Glucose, Whole Blood 127 mg/dL (60-115)
--- NOTE | 2023-02-06 22:42 | P.EN_ITS ---
Event Note Date of Service: 02/06/23 Event Note: Patient seen for follow-up for bilateral lower leg cramping and pain. Labs were ordered to evaluate BMP, Mag, CPK, but patient refused blood draw. Venous duplex of lower extremities negative for DVT bilaterally. Patient has been advised to wear compression stockings. At time of interview patient states she is experiencing only minor lower leg discomfort, sane her pain is ?low?. Suggest continuing compression stockings, encourage ambulation, and encourage p .o. intake of fluids. Will sign off for now, but please re-consult if patient's symptoms persist or worsen. Time Spent With Patient Time: Total time managing care of this patient today ____ minutes.
[2023-02-07] MEDS: Levothyroxine Sodium 75 MCG TABLET PO (06:29)
[2023-02-07 06:47] LABS: Glucose, Whole Blood 67 mg/dL (60-115)
[2023-02-07 07:27] LABS: Glucose, Whole Blood 128 mg/dL (60-115)
[2023-02-07 08:00] VITALS: BP 160/69; PULSE 60; RESP 18; TEMP 36.2; O2SAT 98
[2023-02-07] MEDS: Metoprolol Tartrate 25 MG TABLET PO (08:20)
[2023-02-07] MEDS: Memantine HCl 10 MG TABLET PO ×2 (08:20→21:10)
[2023-02-07] MEDS: Clopidogrel Bisulfate 75 MG TABLET PO (08:20)
[2023-02-07] MEDS: Divalproex Sodium 250 MG TABLET.DR PO (08:20)
[2023-02-07] MEDS: Escitalopram Oxalate 10 MG TABLET PO (08:20)
[2023-02-07] MEDS: Lidocaine 4 % Patch ADH..PATCH 1 PATCH TRANSDERMA (08:20)
[2023-02-07 11:22] LABS: Glucose, Whole Blood 182 mg/dL (60-115)
[2023-02-07] MEDS: Insulin Lispro 100 UNIT/ML 3 ML VIAL SUBCUT ×2 (11:27→16:38)
[2023-02-07 16:36] LABS: Glucose, Whole Blood 191 mg/dL (60-115)
--- NOTE | 2023-02-07 17:22 | HO.PSYCHPN ---
Subjective Subjective Date of Service: 02/07/23 Reason For Visit: Depression Subjective Notes: Conditional Voluntary Interim History: Pt continues to report that she is doing well. She has been visible on the unit, social with select peers. She denies SI/HI. No VH/AH. Pt sleeping through the night. Review of Systems Review of Systems Pt denies chest pain. Pt denies feeling dizzy Denies SOB Denies coughing No constipation or diarrhea Pt reports neck pain Yes all other systems are reviewed and are negative Mental Status Exam Mental Status Exam Narrative: Appearance: wearing street clothes, fair hygiene, in NAD Behavior: cooperative Psychomotor: no agitation noted Speech: clear, normal rate/rhythm/volume, spontaneous TP: linear TC: no overt delusional content noted or reported Mood: okay Affect: congruent SI: none expressed HI: none expressed VH/AH: none expressed Delusions: none expressed Insight/judgment: fair x 2. Memory/cog: alert, oriented x 3. Diagnostics Vital Signs (24Hr): Vital Signs - 24 hr 02/06/23 18:00 02/07/23 08:00 Temperature 97.4 F 97.2 F Pulse Rate 61 60 Respiratory Rate 16 18 Blood Pressure 139/66 160/69 H Pulse Oximetry 98 98 Oxygen Delivery Method Room Air Room Air BMI result Body Mass Index 28.4 Labs 01/07/23 17:49 01/07/23 17:49 Labs: Laboratory Results - last 48 hr 02/05/23 02/06/23 02/06/23 19:45 06:04 11:23 POC Glucose 196 H 135 H 248 H 02/06/23 02/06/23 02/07/23 16:10 20:20 06:31 POC Glucose 246 H 127 H 67 02/07/23 02/07/23 02/07/23 07:23 11:17 16:31 POC Glucose 128 H 182 H 191 H Imaging Radiology Impressions: ITS Impressions Venous Duplex 01/30/23 16:02 IMPRESSION: No DVT demonstrated in the bilateral lower extremity. Medications Medications Current Medications Acetaminophen (Acetaminophen 325 Mg Tablet) 650 mg PO Q6H PRN PRN Reason: Headache/Pain Mild Scale (1-3) Last Admin: 02/02/23 13:41 Dose: 650 mg Al Hydroxide/Mg Hydroxide (Magnesium Hydrox/Alum Hydrox 30 Ml Oral.Susp) 30 ml PO Q6H PRN PRN Reason: Heartburn/Nausea Atorvastatin Calcium (Atorvastatin Calcium 20 Mg Tablet) 20 mg PO BEDTIME [facility] Last Admin: 02/06/23 20:22 Dose: 20 mg Bisacodyl (Bisacodyl 10 Mg Supp.Rect) 10 mg [place] DAILY PRN PRN Reason: Constipation Clopidogrel Bisulfate (Clopidogrel Bisulfate 75 Mg Tablet) 75 mg PO DAILY [facility] Last Admin: 02/07/23 08:20 Dose: 75 mg Divalproex Sodium (Divalproex Sodium 500 Mg Tablet.) 500 mg PO BEDTIME [facility] Last Admin: 02/06/23 20:22 Dose: 500 mg Divalproex Sodium (Divalproex Sodium 250 Mg Tablet.) 250 mg PO DAILY [facility] Last Admin: 02/07/23 08:20 Dose: 250 mg Donepezil HCl (Donepezil Hcl 10 Mg Tablet) 10 mg PO BEDTIME [facility] Last Admin: 02/06/23 20:23 Dose: 10 mg Escitalopram Oxalate (Escitalopram Oxalate 10 Mg Tablet) 10 mg PO DAILY [facility] Last Admin: 02/07/23 08:20 Dose: 10 mg Gabapentin (Gabapentin 600 Mg Tablet) 1,200 mg PO BEDTIME [facility] Last Admin: 02/06/23 20:22 Dose: 1,200 mg Glucagon (Glucagon Hcl 1 Mg Vial) 1 mg SUBCUT Q20M PRN PRN Reason: BG <70 AND UNRESPONSIVE Glucose (Glucose Gel 15 Gm Gel..Gram.) 15 gm PO Q15M PRN PRN Reason: BG <70 AND RESPONSIVE Last Admin: 01/30/23 03:12 Dose: 15 gm Insulin Glargine (Insulin Glargine,Hum.Rec.Anlog 100 Unit/Ml 10 Ml Vial) 50 unit SUBCUT BEDTIME [facility] Last Admin: 02/06/23 20:21 Dose: 50 unit Insulin Human Lispro (Insulin Lispro 100 Unit/Ml 3 Ml Vial) 0 unit SUBCUT TIDAC [facility]; Protocol Last Admin: 02/07/23 16:38 Dose: 4 unit Levothyroxine Sodium (Levothyroxine Sodium 75 Mcg Tablet) 75 mcg PO DAILY@0630 [facility] Last Admin: 02/07/23 06:29 Dose: 75 mcg Lidocaine (Lidocaine 4 % Patch Adh..Patch) 1 patch TRANSDERMA DAILY [facility]; Protocol Last Admin: 02/07/23 08:20 Dose: 1 patch Loperamide HCl (Loperamide Hcl 2 Mg Capsule) 2 mg PO Q6H PRN PRN Reason: diarrhea Last Admin: 01/17/23 03:35 Dose: 2 mg Magnesium Hydroxide (Milk Of Magnesia 30 Ml Oral.Susp) 30 ml PO DAILY PRN PRN Reason: Constipation Magnesium Hydroxide (Milk Of Magnesia 30 Ml Oral.Susp) 30 ml PO DAILY PRN PRN Reason: Constipation Memantine (Memantine Hcl 10 Mg Tablet) 10 mg PO BID [facility] Last Admin: 02/07/23 08:20 Dose: 10 mg Metoprolol Tartrate (Metoprolol Tartrate 25 Mg Tablet) 25 mg PO DAILY [facility]; Protocol Last Admin: 02/07/23 08:20 Dose: 25 mg Quetiapine Fumarate (Quetiapine Fumarate 50 Mg Tablet) 50 mg PO Q6H PRN PRN Reason: agitation Last Admin: 01/08/23 23:46 Dose: 50 mg Sodium Biphosphate/Sodium Phosphate (Sodium Phosphate,[place]-Dibasic 133 Ml Enema) 133 ml [place] DAILY PRN PRN Reason: Constipation Trazodone HCl (Trazodone Hcl 50 Mg Tablet) 50 mg PO BEDTIME PRN PRN Reason: Insomnia Last Admin: 02/04/23 21:04 Dose: 50 mg Valsartan (Valsartan 80 Mg Tablet) 80 mg PO BEDTIME [facility]; Protocol Last Admin: 02/06/23 20:22 Dose: 80 mg Allergies Allergies Allergy/AdvReac Type Severity Reaction Status Date / Time aspirin [ASPIRIN] Allergy Unknown UNKNOWN Verified 01/01/23 09:43 Assessment & Plan Assessment & Plan (1) Major neurocognitive disorder: Status: Acute Code(s): F03.90 - Unspecified dementia, unspecified severity, without behavioral disturbance, psychotic disturbance, mood disturbance, and anxiety (2) Mood disorder: Status: Acute Code(s): F39 - Unspecified mood [affective] disorder Plan Ms. Landis is a 67 year-old woman with hx of Mood Disorder (untreated for most of her life) and neurocognitive disorder who was brought via EMS from [facility] due to increase verbal aggression towards roommate and one of their staff. Pt is known to this sql report writer through previous assessment for similar presentation. Pt presents as calmer, she does admit to being verbally abusive, although denies any intent to harm self or others. She does lack the insight into how her behaviors affect others and her relationships with others. This tendency to have difficulty seeing other people's need per daughter has been life long. Pt presents with tendency to be irritable, at times explosive but not physically aggressive. She was started back in September on low dose of seroquel but no further medication adjustments have been made to manage these symptoms, which are disruptive but not life threatening nor at imminent risk of harm to self or others. As consequence of minimal intervention in the community, pt has had more frequent ED visits here and at [facility]. We discussed risks, benefits and alternative treatment options, pt agrees to start mood stabilizer for impulsive, explosive behaviors. We also discussed switching seroquel to risperidone. Pt is orientation has been intact all along. PLAN 01/20 schedule trazodone 50mg po qhs for sleep. 01/21 continue tx. depakote levels scheduled for tomorrow AM with ammonia levels. 01/22 trough depakote level 75, ammonia 41. continue tx. continue tx 01/24 continue tx. 01/25 continue tx. 01/26 continue tx. 01/27: continue current mgmt. 01/28: continue current mgmt. 01/29 continue tx. 01/30 continue tx. 01/31 continues tx-continue monitor bilat LE- doppler did not show DVT. 02/01: No change in medications, continue current plan of care. 02/02: Continue current plan. 02/03: Continue current plans and regimen 02/04 continue tx. 02/05 continue tx. 02/06 continue tx. 02/07 continue tx. Reason for continued inpatient stay Substantial Risk for: inability to function Time Spent With Patient Time: Total time managing care of this patient today ____ minutes.
[2023-02-07 21:00] VITALS: BP 154/69; PULSE 68; RESP 17; TEMP 36.1; O2SAT 95
[2023-02-07] MEDS: Divalproex Sodium 500 MG TABLET.DR PO (21:10)
[2023-02-07] MEDS: Valsartan 80 MG TABLET PO (21:10)
[2023-02-07] MEDS: traZODone HCL 50 MG TABLET PO (21:10)
[2023-02-07] MEDS: Atorvastatin Calcium 20 MG TABLET PO (21:10)
[2023-02-07] MEDS: Gabapentin 600 MG TABLET 1200 MG PO (21:10)
[2023-02-07] MEDS: Donepezil HCl 10 MG TABLET PO (21:10)
[2023-02-07 21:18] LABS: Glucose, Whole Blood 172 mg/dL (60-115)
[2023-02-07] MEDS: Insulin Glargine,Hum.rec.anlog 100 UNIT/ML 10 ML VIAL 50 UNIT SUBCUT (21:19)
[2023-02-08] MEDS: Levothyroxine Sodium 75 MCG TABLET PO (06:59)
[2023-02-08 07:13] LABS: Glucose, Whole Blood 107 mg/dL (60-115)
[2023-02-08 08:31] VITALS: BP 137/62; PULSE 60; RESP 17; TEMP 36.6; O2SAT 97
[2023-02-08] MEDS: Memantine HCl 10 MG TABLET PO ×2 (08:34→20:17)
[2023-02-08] MEDS: Metoprolol Tartrate 25 MG TABLET PO (08:34)
[2023-02-08] MEDS: Escitalopram Oxalate 10 MG TABLET PO (08:34)
[2023-02-08] MEDS: Divalproex Sodium 250 MG TABLET.DR PO (08:34)
[2023-02-08] MEDS: Clopidogrel Bisulfate 75 MG TABLET PO (08:34)
[2023-02-08] MEDS: Lidocaine 4 % Patch ADH..PATCH 1 PATCH TRANSDERMA (10:59)
[2023-02-08 11:42] LABS: Glucose, Whole Blood 177 mg/dL (60-115)
[2023-02-08] MEDS: Insulin Lispro 100 UNIT/ML 3 ML VIAL SUBCUT ×2 (11:56→16:37)
--- NOTE | 2023-02-08 16:05 | HO.PSYCHPN ---
Subjective Subjective Date of Service: 02/08/23 Reason For Visit: Depression Subjective Notes: Conditional Voluntary Interim History: Met with patient. Discussed with Nursing. Utilize translation software. Overall reports feelings fine. Sleep okay. Feels safe. No medication concerns. Mental Status Exam Mental Status Exam Narrative: Appearance: wearing street clothes, fair hygiene, in NAD Behavior: cooperative Psychomotor: no agitation noted Speech: clear, normal rate/rhythm/volume, spontaneous TP: linear TC: no overt delusional content noted or reported Mood: good Affect: congruent SI: none expressed HI: none expressed VH/AH: none expressed Delusions: none expressed Insight/judgment: fair x 2. Memory/cog: alert, oriented x 3. Diagnostics Vital Signs (24Hr): Vital Signs - 24 hr 02/07/23 21:00 02/08/23 08:31 Temperature 97.0 F 97.8 F Pulse Rate 68 60 Respiratory Rate 17 17 Blood Pressure 154/69 H 137/62 Pulse Oximetry 95 97 Oxygen Delivery Method Room Air Room Air BMI result Body Mass Index 28.4 Labs 01/07/23 17:49 01/07/23 17:49 Labs: Laboratory Results - last 48 hr 02/06/23 02/06/23 02/07/23 16:10 20:20 06:31 POC Glucose 246 H 127 H 67 02/07/23 02/07/23 02/07/23 07:23 11:17 16:31 POC Glucose 128 H 182 H 191 H 02/07/23 02/08/23 02/08/23 21:07 07:01 11:38 POC Glucose 172 H 107 177 H Imaging Radiology Impressions: ITS Impressions Venous Duplex 01/30/23 16:02 IMPRESSION: No DVT demonstrated in the bilateral lower extremity. Medications Medications Current Medications Acetaminophen (Acetaminophen 325 Mg Tablet) 650 mg PO Q6H PRN PRN Reason: Headache/Pain Mild Scale (1-3) Last Admin: 02/02/23 13:41 Dose: 650 mg Al Hydroxide/Mg Hydroxide (Magnesium Hydrox/Alum Hydrox 30 Ml Oral.Susp) 30 ml PO Q6H PRN PRN Reason: Heartburn/Nausea Atorvastatin Calcium (Atorvastatin Calcium 20 Mg Tablet) 20 mg PO BEDTIME [facility] Last Admin: 02/07/23 21:10 Dose: 20 mg Bisacodyl (Bisacodyl 10 Mg Supp.Rect) [address] DAILY PRN PRN Reason: Constipation Clopidogrel Bisulfate (Clopidogrel Bisulfate 75 Mg Tablet) 75 mg PO DAILY [facility] Last Admin: 02/08/23 08:34 Dose: 75 mg Divalproex Sodium (Divalproex Sodium 500 Mg Tablet.Dr) 500 mg PO BEDTIME [facility] Last Admin: 02/07/23 21:10 Dose: 500 mg Divalproex Sodium (Divalproex Sodium 250 Mg Tablet.Dr) 250 mg PO DAILY [facility] Last Admin: 02/08/23 08:34 Dose: 250 mg Donepezil HCl (Donepezil Hcl 10 Mg Tablet) 10 mg PO BEDTIME [facility] Last Admin: 02/07/23 21:10 Dose: 10 mg Escitalopram Oxalate (Escitalopram Oxalate 10 Mg Tablet) 10 mg PO DAILY [facility] Last Admin: 02/08/23 08:34 Dose: 10 mg Gabapentin (Gabapentin 600 Mg Tablet) 1,200 mg PO BEDTIME [facility] Last Admin: 02/07/23 21:10 Dose: 1,200 mg Glucagon (Glucagon Hcl 1 Mg Vial) 1 mg SUBCUT Q20M PRN PRN Reason: BG <70 AND UNRESPONSIVE Glucose (Glucose Gel 15 Gm Gel..Gram.) 15 gm PO Q15M PRN PRN Reason: BG <70 AND RESPONSIVE Last Admin: 01/30/23 03:12 Dose: 15 gm Insulin Glargine (Insulin Glargine,Hum.Rec.Anlog 100 Unit/Ml 10 Ml Vial) 50 unit SUBCUT BEDTIME [facility] Last Admin: 02/07/23 21:19 Dose: 50 unit Insulin Human Lispro (Insulin Lispro 100 Unit/Ml 3 Ml Vial) 0 unit SUBCUT TIDAC [facility]; Protocol Last Admin: 02/08/23 11:56 Dose: 4 unit Levothyroxine Sodium (Levothyroxine Sodium 75 Mcg Tablet) 75 mcg PO DAILY@0630 [facility] Last Admin: 02/08/23 06:59 Dose: 75 mcg Lidocaine (Lidocaine 4 % Patch Adh..Patch) 1 patch TRANSDERMA DAILY [facility]; Protocol Last Admin: 02/08/23 10:59 Dose: 1 patch Loperamide HCl (Loperamide Hcl 2 Mg Capsule) 2 mg PO Q6H PRN PRN Reason: diarrhea Last Admin: 01/17/23 03:35 Dose: 2 mg Magnesium Hydroxide (Milk Of Magnesia 30 Ml Oral.Susp) 30 ml PO DAILY PRN PRN Reason: Constipation Magnesium Hydroxide (Milk Of Magnesia 30 Ml Oral.Susp) 30 ml PO DAILY PRN PRN Reason: Constipation Memantine (Memantine Hcl 10 Mg Tablet) 10 mg PO BID [facility] Last Admin: 02/08/23 08:34 Dose: 10 mg Metoprolol Tartrate (Metoprolol Tartrate 25 Mg Tablet) 25 mg PO DAILY [facility]; Protocol Last Admin: 02/08/23 08:34 Dose: 25 mg Quetiapine Fumarate (Quetiapine Fumarate 50 Mg Tablet) 50 mg PO Q6H PRN PRN Reason: agitation Last Admin: 01/08/23 23:46 Dose: 50 mg Sodium Biphosphate/Sodium Phosphate (Sodium Phosphate,[place]-Dibasic 133 Ml Enema) [address] DAILY PRN PRN Reason: Constipation Trazodone HCl (Trazodone Hcl 50 Mg Tablet) 50 mg PO BEDTIME PRN PRN Reason: Insomnia Last Admin: 02/07/23 21:10 Dose: 50 mg Valsartan (Valsartan 80 Mg Tablet) 80 mg PO BEDTIME [facility]; Protocol Last Admin: 02/07/23 21:10 Dose: 80 mg Allergies Allergies Allergy/AdvReac Type Severity Reaction Status Date / Time aspirin [ASPIRIN] Allergy Unknown UNKNOWN Verified 01/01/23 09:43 Assessment & Plan Assessment & Plan (1) Major neurocognitive disorder: Status: Acute Code(s): F03.90 - Unspecified dementia, unspecified severity, without behavioral disturbance, psychotic disturbance, mood disturbance, and anxiety (2) Mood disorder: Status: Acute Code(s): F39 - Unspecified mood [affective] disorder Plan Ms. Landis is a 67 year-old woman with hx of Mood Disorder (untreated for most of her life) and neurocognitive disorder who was brought via EMS from [facility] due to increase verbal aggression towards roommate and one of their staff. Pt is known to this signwriter through previous assessment for similar presentation. Pt presents as calmer, she does admit to being verbally abusive, although denies any intent to harm self or others. She does lack the insight into how her behaviors affect others and her relationships with others. This tendency to have difficulty seeing other people's need per daughter has been life long. Pt presents with tendency to be irritable, at times explosive but not physically aggressive. She was started back in September on low dose of seroquel but no further medication adjustments have been made to manage these symptoms, which are disruptive but not life threatening nor at imminent risk of harm to self or others. As consequence of minimal intervention in the community, pt has had more frequent ED visits here and at [facility]. We discussed risks, benefits and alternative treatment options, pt agrees to start mood stabilizer for impulsive, explosive behaviors. We also discussed switching seroquel to risperidone. Pt is orientation has been intact all along. PLAN 01/20 schedule trazodone 50mg po qhs for sleep. 01/21 continue tx. depakote levels scheduled for tomorrow AM with ammonia levels. 01/22 trough depakote level 75, ammonia 41. continue tx. continue tx 01/24 continue tx. 01/25 continue tx. 01/26 continue tx. 01/27: continue current mgmt. 01/28: continue current mgmt. 01/29 continue tx. 01/30 continue tx. 01/31 continues tx-continue monitor bilat LE- doppler did not show DVT. 02/01: No change in medications, continue current plan of care. 02/02: Continue current plan. 02/03: Continue current plans and regimen 02/04 continue tx. 02/05 continue tx. 02/06 continue tx. 02/07 continue tx. 02/08: no changes Reason for continued inpatient stay Substantial Risk for: rapid decompensation Time Spent With Patient Time: Total time managing care of this patient today ____ minutes.
[2023-02-08 16:20] LABS: Glucose, Whole Blood 198 mg/dL (60-115)
[2023-02-08 20:15] VITALS: BP 170/74; PULSE 67; RESP 16; TEMP 36.8; O2SAT 96
[2023-02-08] MEDS: Atorvastatin Calcium 20 MG TABLET PO (20:16)
[2023-02-08] MEDS: Gabapentin 600 MG TABLET 1200 MG PO (20:17)
[2023-02-08] MEDS: Valsartan 80 MG TABLET PO (20:17)
[2023-02-08] MEDS: Donepezil HCl 10 MG TABLET PO (20:17)
[2023-02-08] MEDS: Divalproex Sodium 500 MG TABLET.DR PO (20:17)
[2023-02-08] MEDS: Insulin Glargine,Hum.rec.anlog 100 UNIT/ML 10 ML VIAL 50 UNIT SUBCUT (20:17)
[2023-02-08 20:28] LABS: Glucose, Whole Blood 196 mg/dL (60-115)
[2023-02-09] MEDS: Levothyroxine Sodium 75 MCG TABLET PO (06:15)
[2023-02-09 06:19] LABS: Glucose, Whole Blood 79 mg/dL (60-115)
[2023-02-09 08:10] VITALS: BP 149/66; PULSE 67; RESP 16; TEMP 36.1; O2SAT 98
[2023-02-09] MEDS: Clopidogrel Bisulfate 75 MG TABLET PO (08:15)
[2023-02-09] MEDS: Escitalopram Oxalate 10 MG TABLET PO (08:15)
[2023-02-09] MEDS: Memantine HCl 10 MG TABLET PO ×2 (08:15→21:15)
[2023-02-09] MEDS: Divalproex Sodium 250 MG TABLET.DR PO (08:15)
[2023-02-09] MEDS: Metoprolol Tartrate 25 MG TABLET PO (08:15)
[2023-02-09] MEDS: Acetaminophen 325 MG TABLET 650 MG PO ×2 (10:01→21:16)
[2023-02-09] MEDS: Lidocaine 4 % Patch ADH..PATCH 1 PATCH TRANSDERMA (10:40)
[2023-02-09 11:39] LABS: Glucose, Whole Blood 271 mg/dL (60-115)
[2023-02-09] MEDS: Insulin Lispro 100 UNIT/ML 3 ML VIAL SUBCUT ×2 (12:11→16:28)
--- NOTE | 2023-02-09 14:14 | HO.PSYCHPN ---
Subjective Subjective Date of Service: 02/09/23 Reason For Visit: Depression Interim History: Overall no changes and reports feelings fine. Sleep okay. Feels safe. Eating well. No medication concerns. Medication Compliance: Yes Side effects from medications: No Attending Groups: Intermittent Review of Systems Acute medical concerns: No Review of Systems Review of Systems nothing acute Mental Status Exam Mental Status Exam Narrative: Appearance: wearing street clothes, fair hygiene, in NAD Behavior: cooperative Psychomotor: no agitation noted Speech: clear, normal rate/rhythm/volume, spontaneous TP: linear TC: no overt delusional content noted or reported Mood: good Affect: congruent SI: none expressed HI: none expressed VH/AH: none expressed Delusions: none expressed Insight/judgment: fair x 2. Memory/cog: alert, oriented x 3. Diagnostics Vital Signs (24Hr): Vital Signs - 24 hr 02/08/23 20:15 02/09/23 08:10 Temperature 98.2 F 97.0 F Pulse Rate 67 67 Respiratory Rate 16 16 Blood Pressure 170/74 H 149/66 H Pulse Oximetry 96 98 Oxygen Delivery Method Room Air Room Air BMI result Body Mass Index 28.4 Labs 01/07/23 17:49 01/07/23 17:49 Labs: Laboratory Results - last 48 hr 02/07/23 02/07/23 02/08/23 16:31 21:07 07:01 POC Glucose 191 H 172 H 107 02/08/23 02/08/23 02/08/23 11:38 16:16 20:15 POC Glucose 177 H 198 H 196 H 02/09/23 02/09/23 06:14 11:35 POC Glucose 79 271 H Imaging Radiology Impressions: ITS Impressions Venous Duplex 01/30/23 16:02 IMPRESSION: No DVT demonstrated in the bilateral lower extremity. Medications Medications Current Medications Acetaminophen (Acetaminophen 325 Mg Tablet) 650 mg PO Q6H PRN PRN Reason: Headache/Pain Mild Scale (1-3) Last Admin: 02/09/23 10:01 Dose: 650 mg Al Hydroxide/Mg Hydroxide (Magnesium Hydrox/Alum Hydrox 30 Ml Oral.Susp) 30 ml PO Q6H PRN PRN Reason: Heartburn/Nausea Atorvastatin Calcium (Atorvastatin Calcium 20 Mg Tablet) 20 mg PO BEDTIME [facility] Last Admin: 02/08/23 20:16 Dose: 20 mg Bisacodyl (Bisacodyl 10 Mg Supp.Rect) 10 mg AL DAILY PRN PRN Reason: Constipation Clopidogrel Bisulfate (Clopidogrel Bisulfate 75 Mg Tablet) 75 mg PO DAILY [facility] Last Admin: 02/09/23 08:15 Dose: 75 mg Divalproex Sodium (Divalproex Sodium 500 Mg Tablet.Dr) 500 mg PO BEDTIME [facility] Last Admin: 02/08/23 20:17 Dose: 500 mg Divalproex Sodium (Divalproex Sodium 250 Mg Tablet.Dr) 250 mg PO DAILY [facility] Last Admin: 02/09/23 08:15 Dose: 250 mg Donepezil HCl (Donepezil Hcl 10 Mg Tablet) 10 mg PO BEDTIME [facility] Last Admin: 02/08/23 20:17 Dose: 10 mg Escitalopram Oxalate (Escitalopram Oxalate 10 Mg Tablet) 10 mg PO DAILY [facility] Last Admin: 02/09/23 08:15 Dose: 10 mg Gabapentin (Gabapentin 600 Mg Tablet) 1,200 mg PO BEDTIME [facility] Last Admin: 02/08/23 20:17 Dose: 1,200 mg Glucagon (Glucagon Hcl 1 Mg Vial) 1 mg SUBCUT Q20M PRN PRN Reason: BG <70 AND UNRESPONSIVE Glucose (Glucose Gel 15 Gm Gel..Gram.) 15 gm PO Q15M PRN PRN Reason: BG <70 AND RESPONSIVE Last Admin: 01/30/23 03:12 Dose: 15 gm Insulin Glargine (Insulin Glargine,Hum.Rec.Anlog 100 Unit/Ml 10 Ml Vial) 50 unit SUBCUT BEDTIME [facility] Last Admin: 02/08/23 20:17 Dose: 50 unit Insulin Human Lispro (Insulin Lispro 100 Unit/Ml 3 Ml Vial) 0 unit SUBCUT TIDAC [facility]; Protocol Last Admin: 02/09/23 12:11 Dose: 8 unit Levothyroxine Sodium (Levothyroxine Sodium 75 Mcg Tablet) 75 mcg PO DAILY@0630 [facility] Last Admin: 02/09/23 06:15 Dose: 75 mcg Lidocaine (Lidocaine 4 % Patch Adh..Patch) 1 patch TRANSDERMA DAILY [facility]; Protocol Last Admin: 02/09/23 10:40 Dose: 1 patch Loperamide HCl (Loperamide Hcl 2 Mg Capsule) 2 mg PO Q6H PRN PRN Reason: diarrhea Last Admin: 01/17/23 03:35 Dose: 2 mg Magnesium Hydroxide (Milk Of Magnesia 30 Ml Oral.Susp) 30 ml PO DAILY PRN PRN Reason: Constipation Magnesium Hydroxide (Milk Of Magnesia 30 Ml Oral.Susp) 30 ml PO DAILY PRN PRN Reason: Constipation Memantine (Memantine Hcl 10 Mg Tablet) 10 mg PO BID [facility] Last Admin: 02/09/23 08:15 Dose: 10 mg Metoprolol Tartrate (Metoprolol Tartrate 25 Mg Tablet) 25 mg PO DAILY [facility]; Protocol Last Admin: 02/09/23 08:15 Dose: 25 mg Quetiapine Fumarate (Quetiapine Fumarate 50 Mg Tablet) 50 mg PO Q6H PRN PRN Reason: agitation Last Admin: 01/08/23 23:46 Dose: 50 mg Sodium Biphosphate/Sodium Phosphate (Sodium Phosphate,[place]-Dibasic 133 Ml Enema) 133 ml AL DAILY PRN PRN Reason: Constipation Trazodone HCl (Trazodone Hcl 50 Mg Tablet) 50 mg PO BEDTIME PRN PRN Reason: Insomnia Last Admin: 02/07/23 21:10 Dose: 50 mg Valsartan (Valsartan 80 Mg Tablet) 80 mg PO BEDTIME [facility]; Protocol Last Admin: 02/08/23 20:17 Dose: 80 mg Allergies Allergies Allergy/AdvReac Type Severity Reaction Status Date / Time aspirin [ASPIRIN] Allergy Unknown UNKNOWN Verified 01/01/23 09:43 Assessment & Plan Assessment & Plan (1) Major neurocognitive disorder: Status: Acute Code(s): F03.90 - Unspecified dementia, unspecified severity, without behavioral disturbance, psychotic disturbance, mood disturbance, and anxiety (2) Mood disorder: Status: Acute Code(s): F39 - Unspecified mood [affective] disorder Plan Ms. Landis is a 67 year-old woman with hx of Mood Disorder (untreated for most of her life) and neurocognitive disorder who was brought via EMS from [facility] due to increase verbal aggression towards roommate and one of their staff. Pt is known to this comic book writer through previous assessment for similar presentation. Pt presents as calmer, she does admit to being verbally abusive, although denies any intent to harm self or others. She does lack the insight into how her behaviors affect others and her relationships with others. This tendency to have difficulty seeing other people's need per daughter has been life long. Pt presents with tendency to be irritable, at times explosive but not physically aggressive. She was started back in September on low dose of seroquel but no further medication adjustments have been made to manage these symptoms, which are disruptive but not life threatening nor at imminent risk of harm to self or others. As consequence of minimal intervention in the community, pt has had more frequent ED visits here and at [facility]. We discussed risks, benefits and alternative treatment options, pt agrees to start mood stabilizer for impulsive, explosive behaviors. We also discussed switching seroquel to risperidone. Pt is orientation has been intact all along. PLAN 01/20 schedule trazodone 50mg po qhs for sleep. 01/21 continue tx. depakote levels scheduled for tomorrow AM with ammonia levels. 01/22 trough depakote level 75, ammonia 41. continue tx. continue tx 01/24 continue tx. 01/25 continue tx. 01/26 continue tx. 01/27: continue current mgmt. 01/28: continue current mgmt. 01/29 continue tx. 01/30 continue tx. 01/31 continues tx-continue monitor bilat LE- doppler did not show DVT. 02/01: No change in medications, continue current plan of care. 02/02: Continue current plan. 02/03: Continue current plans and regimen 02/04 continue tx. 02/05 continue tx. 02/06 continue tx. 02/07 continue tx. 02/09: no changes Reason for continued inpatient stay Substantial Risk for: inability to function Time Spent With Patient Time: Total time managing care of this patient today ____ minutes.
[2023-02-09 16:12] LABS: Glucose, Whole Blood 240 mg/dL (60-115)
[2023-02-09 18:00] VITALS: BP 130/80; PULSE 64; RESP 16; TEMP 36.3; O2SAT 95
[2023-02-09] MEDS: traZODone HCL 50 MG TABLET PO (21:15)
[2023-02-09] MEDS: Divalproex Sodium 500 MG TABLET.DR PO (21:15)
[2023-02-09] MEDS: Atorvastatin Calcium 20 MG TABLET PO (21:15)
[2023-02-09] MEDS: Donepezil HCl 10 MG TABLET PO (21:15)
[2023-02-09] MEDS: Valsartan 80 MG TABLET PO (21:16)
[2023-02-09] MEDS: Gabapentin 600 MG TABLET 1200 MG PO (21:17)
[2023-02-09] MEDS: Insulin Glargine,Hum.rec.anlog 100 UNIT/ML 10 ML VIAL 50 UNIT SUBCUT (21:25)
[2023-02-09 21:30] LABS: Glucose, Whole Blood 193 mg/dL (60-115)
[2023-02-10] MEDS: Levothyroxine Sodium 75 MCG TABLET PO (06:01)
[2023-02-10 06:43] LABS: Glucose, Whole Blood 75 mg/dL (60-115)
[2023-02-10 06:43] LABS: Glucose, Whole Blood 65 mg/dL (60-115)
[2023-02-10 08:00] VITALS: BP 114/54; PULSE 63; RESP 18; TEMP 36.2; O2SAT 98
[2023-02-10] MEDS: Divalproex Sodium 250 MG TABLET.DR PO (08:32)
[2023-02-10] MEDS: Clopidogrel Bisulfate 75 MG TABLET PO (08:32)
[2023-02-10 08:33] LABS: Glucose, Whole Blood 151 mg/dL (60-115)
[2023-02-10] MEDS: Memantine HCl 10 MG TABLET PO ×2 (08:33→21:22)
[2023-02-10] MEDS: Escitalopram Oxalate 10 MG TABLET PO (08:33)
[2023-02-10] MEDS: Lidocaine 4 % Patch ADH..PATCH 1 PATCH TRANSDERMA (08:37)
[2023-02-10] MEDS: Metoprolol Tartrate 25 MG TABLET PO (08:47)
[2023-02-10 11:09] LABS: Glucose, Whole Blood 249 mg/dL (60-115)
[2023-02-10] MEDS: Insulin Lispro 100 UNIT/ML 3 ML VIAL SUBCUT (11:11)
[2023-02-10 16:39] LABS: Glucose, Whole Blood 141 mg/dL (60-115)
--- NOTE | 2023-02-10 16:45 | HO.PSYCHPN ---
Subjective Subjective Date of Service: 02/10/23 Reason For Visit: Depression Subjective Notes: Conditional Voluntary Interim History: Pt reports doing well. She denies SI/HI. She walks with walker. She reports bilat leg pain less. She is sleeping through the night. She does take medications as prescribed. No behavioral concerns. Medication Compliance: Yes Side effects from medications: No Review of Systems Review of Systems nothing acute Yes all other systems are reviewed and are negative Mental Status Exam Mental Status Exam Narrative: Appearance: wearing street clothes, fair hygiene, in NAD Behavior: cooperative Psychomotor: no agitation noted Speech: clear, normal rate/rhythm/volume, spontaneous TP: linear TC: no overt delusional content noted or reported Mood: good Affect: congruent SI: none expressed HI: none expressed VH/AH: none expressed Delusions: none expressed Insight/judgment: fair x 2. Memory/cog: alert, oriented x 3. Diagnostics Vital Signs (24Hr): Vital Signs - 24 hr 02/09/23 18:00 02/10/23 08:00 Temperature 97.4 F 97.1 F Pulse Rate 64 63 Respiratory Rate 16 18 Blood Pressure 130/80 114/54 L Pulse Oximetry 95 98 Oxygen Delivery Method Room Air Room Air BMI result Body Mass Index 28.4 Labs 01/07/23 17:49 01/07/23 17:49 Labs: Laboratory Results - last 48 hr 02/08/23 02/09/23 02/09/23 20:15 06:14 11:35 POC Glucose 196 H 79 271 H 02/09/23 02/09/23 02/10/23 16:08 21:10 06:02 POC Glucose 240 H 193 H 65 02/10/23 02/10/23 02/10/23 06:39 08:29 11:04 POC Glucose 75 151 H 249 H 02/10/23 16:35 POC Glucose 141 H Imaging Radiology Impressions: ITS Impressions Venous Duplex 01/30/23 16:02 IMPRESSION: No DVT demonstrated in the bilateral lower extremity. Medications Medications Current Medications Acetaminophen (Acetaminophen 325 Mg Tablet) 650 mg PO Q6H PRN PRN Reason: Headache/Pain Mild Scale (1-3) Last Admin: 02/09/23 21:16 Dose: 650 mg Al Hydroxide/Mg Hydroxide (Magnesium Hydrox/Alum Hydrox 30 Ml Oral.Susp) 30 ml PO Q6H PRN PRN Reason: Heartburn/Nausea Atorvastatin Calcium (Atorvastatin Calcium 20 Mg Tablet) 20 mg PO BEDTIME [facility] Last Admin: 02/09/23 21:15 Dose: 20 mg Bisacodyl (Bisacodyl 10 Mg Supp.Rect) 10 mg MS DAILY PRN PRN Reason: Constipation Clopidogrel Bisulfate (Clopidogrel Bisulfate 75 Mg Tablet) 75 mg PO DAILY [facility] Last Admin: 02/10/23 08:32 Dose: 75 mg Divalproex Sodium (Divalproex Sodium 500 Mg Tablet.) 500 mg PO BEDTIME [facility] Last Admin: 02/09/23 21:15 Dose: 500 mg Divalproex Sodium (Divalproex Sodium 250 Mg Tablet.) 250 mg PO DAILY [facility] Last Admin: 02/10/23 08:32 Dose: 250 mg Donepezil HCl (Donepezil Hcl 10 Mg Tablet) 10 mg PO BEDTIME [facility] Last Admin: 02/09/23 21:15 Dose: 10 mg Escitalopram Oxalate (Escitalopram Oxalate 10 Mg Tablet) 10 mg PO DAILY [facility] Last Admin: 02/10/23 08:33 Dose: 10 mg Gabapentin (Gabapentin 600 Mg Tablet) 1,200 mg PO BEDTIME [facility] Last Admin: 02/09/23 21:17 Dose: 1,200 mg Glucagon (Glucagon Hcl 1 Mg Vial) 1 mg SUBCUT Q20M PRN PRN Reason: BG <70 AND UNRESPONSIVE Glucose (Glucose Gel 15 Gm Gel..Gram.) 15 gm PO Q15M PRN PRN Reason: BG <70 AND RESPONSIVE Last Admin: 01/30/23 03:12 Dose: 15 gm Insulin Glargine (Insulin Glargine,Hum.Rec.Anlog 100 Unit/Ml 10 Ml Vial) 47 unit SUBCUT BEDTIME [facility] Insulin Human Lispro (Insulin Lispro 100 Unit/Ml 3 Ml Vial) 0 unit SUBCUT TIDAC [facility]; Protocol Last Admin: 02/10/23 16:39 Dose: Not Given Levothyroxine Sodium (Levothyroxine Sodium 75 Mcg Tablet) 75 mcg PO DAILY@0630 [facility] Last Admin: 02/10/23 06:01 Dose: 75 mcg Lidocaine (Lidocaine 4 % Patch Adh..Patch) 1 patch TRANSDERMA DAILY [facility]; Protocol Last Admin: 02/10/23 08:37 Dose: 1 patch Loperamide HCl (Loperamide Hcl 2 Mg Capsule) 2 mg PO Q6H PRN PRN Reason: diarrhea Last Admin: 01/17/23 03:35 Dose: 2 mg Magnesium Hydroxide (Milk Of Magnesia 30 Ml Oral.Susp) 30 ml PO DAILY PRN PRN Reason: Constipation Magnesium Hydroxide (Milk Of Magnesia 30 Ml Oral.Susp) 30 ml PO DAILY PRN PRN Reason: Constipation Memantine (Memantine Hcl 10 Mg Tablet) 10 mg PO BID [facility] Last Admin: 02/10/23 08:33 Dose: 10 mg Metoprolol Tartrate (Metoprolol Tartrate 25 Mg Tablet) 25 mg PO DAILY [facility]; Protocol Last Admin: 02/10/23 08:47 Dose: 25 mg Quetiapine Fumarate (Quetiapine Fumarate 50 Mg Tablet) 50 mg PO Q6H PRN PRN Reason: agitation Last Admin: 01/08/23 23:46 Dose: 50 mg Sodium Biphosphate/Sodium Phosphate (Sodium Phosphate,[place]-Dibasic 133 Ml Enema) 133 ml MS DAILY PRN PRN Reason: Constipation Trazodone HCl (Trazodone Hcl 50 Mg Tablet) 50 mg PO BEDTIME PRN PRN Reason: Insomnia Last Admin: 02/09/23 21:15 Dose: 50 mg Valsartan (Valsartan 80 Mg Tablet) 80 mg PO BEDTIME [facility]; Protocol Last Admin: 02/09/23 21:16 Dose: 80 mg Allergies Allergies Allergy/AdvReac Type Severity Reaction Status Date / Time aspirin [ASPIRIN] Allergy Unknown UNKNOWN Verified 01/01/23 09:43 Assessment & Plan Assessment & Plan (1) Major neurocognitive disorder: Status: Acute Code(s): F03.90 - Unspecified dementia, unspecified severity, without behavioral disturbance, psychotic disturbance, mood disturbance, and anxiety (2) Mood disorder: Status: Acute Code(s): F39 - Unspecified mood [affective] disorder Plan Ms. Landis is a 67 year-old woman with hx of Mood Disorder (untreated for most of her life) and neurocognitive disorder who was brought via EMS from [facility] due to increase verbal aggression towards roommate and one of their staff. Pt is known to this video game script writer through previous assessment for similar presentation. Pt presents as calmer, she does admit to being verbally abusive, although denies any intent to harm self or others. She does lack the insight into how her behaviors affect others and her relationships with others. This tendency to have difficulty seeing other people's need per daughter has been life long. Pt presents with tendency to be irritable, at times explosive but not physically aggressive. She was started back in September on low dose of seroquel but no further medication adjustments have been made to manage these symptoms, which are disruptive but not life threatening nor at imminent risk of harm to self or others. As consequence of minimal intervention in the community, pt has had more frequent ED visits here and at [facility]. We discussed risks, benefits and alternative treatment options, pt agrees to start mood stabilizer for impulsive, explosive behaviors. We also discussed switching seroquel to risperidone. Pt is orientation has been intact all along. PLAN 01/20 schedule trazodone 50mg po qhs for sleep. 01/21 continue tx. depakote levels scheduled for tomorrow AM with ammonia levels. 01/22 trough depakote level 75, ammonia 41. continue tx. continue tx 01/24 continue tx. 01/25 continue tx. 01/26 continue tx. 01/27: continue current mgmt. 01/28: continue current mgmt. 01/29 continue tx. 01/30 continue tx. 01/31 continues tx-continue monitor bilat LE- doppler did not show DVT. 02/01: No change in medications, continue current plan of care. 02/02: Continue current plan. 02/03: Continue current plans and regimen 02/04 continue tx. 02/05 continue tx. 02/06 continue tx. 02/07 continue tx. 02/09: no changes 02/10 continue tx. Reason for continued inpatient stay Substantial Risk for: inability to function Time Spent With Patient Time: Total time managing care of this patient today ____ minutes.
[2023-02-10 18:00] VITALS: BP 141/63; PULSE 59; RESP 16; TEMP 36.2; O2SAT 99
[2023-02-10 19:58] LABS: Glucose, Whole Blood 263 mg/dL (60-115)
[2023-02-10] MEDS: Insulin Glargine,Hum.rec.anlog 100 UNIT/ML 10 ML VIAL 47 UNIT SUBCUT (21:19)
[2023-02-10] MEDS: traZODone HCL 50 MG TABLET PO (21:21)
[2023-02-10] MEDS: Valsartan 80 MG TABLET PO (21:21)
[2023-02-10] MEDS: Atorvastatin Calcium 20 MG TABLET PO (21:21)
[2023-02-10] MEDS: Donepezil HCl 10 MG TABLET PO (21:22)
[2023-02-10] MEDS: Gabapentin 600 MG TABLET 1200 MG PO (21:22)
[2023-02-10] MEDS: Divalproex Sodium 500 MG TABLET.DR PO (21:23)
[2023-02-10] MEDS: Loperamide HCl 2 MG CAPSULE PO (22:16)
[2023-02-10] MEDS: Magnesium Hydrox/Alum Hydrox 30 ML ORAL.SUSP PO (22:17)
[2023-02-11] MEDS: Levothyroxine Sodium 75 MCG TABLET PO (06:24)
[2023-02-11 06:30] LABS: Glucose, Whole Blood 89 mg/dL (60-115)
[2023-02-11 07:50] VITALS: BP 136/62; PULSE 62; RESP 16; TEMP 36.7; O2SAT 99
[2023-02-11] MEDS: Divalproex Sodium 250 MG TABLET.DR PO (09:28)
[2023-02-11] MEDS: Clopidogrel Bisulfate 75 MG TABLET PO (09:28)
[2023-02-11] MEDS: Memantine HCl 10 MG TABLET PO ×2 (09:28→21:24)
[2023-02-11] MEDS: Escitalopram Oxalate 10 MG TABLET PO (09:28)
[2023-02-11] MEDS: Lidocaine 4 % Patch ADH..PATCH 1 PATCH TRANSDERMA (09:29)
[2023-02-11] MEDS: Metoprolol Tartrate 25 MG TABLET PO (09:29)
--- NOTE | 2023-02-11 10:06 | P.PNPSI_ITS ---
Subjective Subjective Date of Service: 02/11/23 Reason For Visit: Depression Subjective Notes: Conditional Voluntary Interim History: Pt continues to reports doing well. She denies SI/HI. She walks with walker. She reports bilat leg pain less. She was seen outside. She has been going to groups. She is sleeping through the night. She does take medications as prescribed. No behavioral concerns. Review of Systems Review of Systems nothing acute Yes all other systems are reviewed and are negative Mental Status Exam Mental Status Exam Narrative: Appearance: wearing street clothes, fair hygiene, in NAD Behavior: cooperative Psychomotor: no agitation noted Speech: clear, normal rate/rhythm/volume, spontaneous TP: linear TC: no overt delusional content noted or reported Mood: good Affect: congruent SI: none expressed HI: none expressed VH/AH: none expressed Delusions: none expressed Insight/judgment: fair x 2. Memory/cog: alert, oriented x 3. Diagnostics Vital Signs (24Hr): Vital Signs - 24 hr 02/10/23 18:00 Temperature 97.2 F Pulse Rate 59 Respiratory Rate 16 Blood Pressure 141/63 H Pulse Oximetry 99 Oxygen Delivery Method Room Air BMI result Body Mass Index 28.4 Labs 01/07/23 17:49 01/07/23 17:49 Labs: Laboratory Results - last 48 hr 02/09/23 02/09/23 02/09/23 11:35 16:08 21:10 POC Glucose 271 H 240 H 193 H 02/10/23 02/10/23 02/10/23 06:02 06:39 08:29 POC Glucose 65 75 151 H 02/10/23 02/10/23 02/10/23 11:04 16:35 19:52 POC Glucose 249 H 141 H 263 H 02/11/23 06:23 POC Glucose 89 Imaging Radiology Impressions: ITS Impressions Venous Duplex 01/30/23 16:02 IMPRESSION: No DVT demonstrated in the bilateral lower extremity. Medications Medications Current Medications Acetaminophen (Acetaminophen 325 Mg Tablet) 650 mg PO Q6H PRN PRN Reason: Headache/Pain Mild Scale (1-3) Last Admin: 02/09/23 21:16 Dose: 650 mg Al Hydroxide/Mg Hydroxide (Magnesium Hydrox/Alum Hydrox 30 Ml Oral.Susp) 30 ml PO Q6H PRN PRN Reason: Heartburn/Nausea Last Admin: 02/10/23 22:17 Dose: 30 ml Atorvastatin Calcium (Atorvastatin Calcium 20 Mg Tablet) 20 mg PO BEDTIME [facility] Last Admin: 02/10/23 21:21 Dose: 20 mg Bisacodyl (Bisacodyl 10 Mg Supp.Rect) 10 mg [place] DAILY PRN PRN Reason: Constipation Clopidogrel Bisulfate (Clopidogrel Bisulfate 75 Mg Tablet) 75 mg PO DAILY [facility] Last Admin: 02/11/23 09:28 Dose: 75 mg Divalproex Sodium (Divalproex Sodium 500 Mg Tablet.) 500 mg PO BEDTIME [facility] Last Admin: 02/10/23 21:23 Dose: 500 mg Divalproex Sodium (Divalproex Sodium 250 Mg Tablet.) 250 mg PO DAILY [facility] Last Admin: 02/11/23 09:28 Dose: 250 mg Donepezil HCl (Donepezil Hcl 10 Mg Tablet) 10 mg PO BEDTIME [facility] Last Admin: 02/10/23 21:22 Dose: 10 mg Escitalopram Oxalate (Escitalopram Oxalate 10 Mg Tablet) 10 mg PO DAILY [facility] Last Admin: 02/11/23 09:28 Dose: 10 mg Gabapentin (Gabapentin 600 Mg Tablet) 1,200 mg PO BEDTIME [facility] Last Admin: 02/10/23 21:22 Dose: 1,200 mg Glucagon (Glucagon Hcl 1 Mg Vial) 1 mg SUBCUT Q20M PRN PRN Reason: BG <70 AND UNRESPONSIVE Glucose (Glucose Gel 15 Gm Gel..Gram.) 15 gm PO Q15M PRN PRN Reason: BG <70 AND RESPONSIVE Last Admin: 01/30/23 03:12 Dose: 15 gm Insulin Glargine (Insulin Glargine,Hum.Rec.Anlog 100 Unit/Ml 10 Ml Vial) 47 unit SUBCUT BEDTIME [facility] Last Admin: 02/10/23 21:19 Dose: 47 unit Insulin Human Lispro (Insulin Lispro 100 Unit/Ml 3 Ml Vial) 0 unit SUBCUT TIDAC [facility]; Protocol Last Admin: 02/11/23 09:29 Dose: Not Given Levothyroxine Sodium (Levothyroxine Sodium 75 Mcg Tablet) 75 mcg PO DAILY@0630 [facility] Last Admin: 02/11/23 06:24 Dose: 75 mcg Lidocaine (Lidocaine 4 % Patch Adh..Patch) 1 patch TRANSDERMA DAILY [facility]; Protocol Last Admin: 02/11/23 09:29 Dose: 1 patch Loperamide HCl (Loperamide Hcl 2 Mg Capsule) 2 mg PO Q6H PRN PRN Reason: diarrhea Last Admin: 02/10/23 22:16 Dose: 2 mg Magnesium Hydroxide (Milk Of Magnesia 30 Ml Oral.Susp) 30 ml PO DAILY PRN PRN Reason: Constipation Magnesium Hydroxide (Milk Of Magnesia 30 Ml Oral.Susp) 30 ml PO DAILY PRN PRN Reason: Constipation Memantine (Memantine Hcl 10 Mg Tablet) 10 mg PO BID [facility] Last Admin: 02/11/23 09:28 Dose: 10 mg Metoprolol Tartrate (Metoprolol Tartrate 25 Mg Tablet) 25 mg PO DAILY [facility]; Protocol Last Admin: 02/11/23 09:29 Dose: 25 mg Quetiapine Fumarate (Quetiapine Fumarate 50 Mg Tablet) 50 mg PO Q6H PRN PRN Reason: agitation Last Admin: 01/08/23 23:46 Dose: 50 mg Sodium Biphosphate/Sodium Phosphate (Sodium Phosphate,[place]-Dibasic 133 Ml Enema) 133 ml [place] DAILY PRN PRN Reason: Constipation Trazodone HCl (Trazodone Hcl 50 Mg Tablet) 50 mg PO BEDTIME PRN PRN Reason: Insomnia Last Admin: 02/10/23 21:21 Dose: 50 mg Valsartan (Valsartan 80 Mg Tablet) 80 mg PO BEDTIME [facility]; Protocol Last Admin: 02/10/23 21:21 Dose: 80 mg Allergies Allergies Allergy/AdvReac Type Severity Reaction Status Date / Time aspirin [ASPIRIN] Allergy Unknown UNKNOWN Verified 01/01/23 09:43 Assessment & Plan Assessment & Plan (1) Major neurocognitive disorder: Status: Acute Code(s): F03.90 - Unspecified dementia, unspecified severity, without behavioral disturbance, psychotic disturbance, mood disturbance, and anxiety (2) Mood disorder: Status: Acute Code(s): F39 - Unspecified mood [affective] disorder Plan Ms. Landis is a 67 year-old woman with hx of Mood Disorder (untreated for most of her life) and neurocognitive disorder who was brought via EMS from [facility] due to increase verbal aggression towards roommate and one of their staff. Pt is known to this advertising copywriter through previous assessment for similar presentation. Pt presents as calmer, she does admit to being verbally abusive, although denies any intent to harm self or others. She does lack the insight into how her behaviors affect others and her relationships with others. This tendency to have difficulty seeing other people's need per daughter has been life long. Pt presents with tendency to be irritable, at times explosive but not physically aggressive. She was started back in September on low dose of seroquel but no further medication adjustments have been made to manage these symptoms, which are disruptive but not life threatening nor at imminent risk of harm to self or others. As consequence of minimal intervention in the community, pt has had more frequent ED visits here and at [facility]. We discussed risks, benefits and alternative treatment options, pt agrees to start mood stabilizer for impulsive, explosive behaviors. We also discussed switching seroquel to risperidone. Pt is orientation has been intact all along. PLAN 01/20 schedule trazodone 50mg po qhs for sleep. 01/21 continue tx. depakote levels scheduled for tomorrow AM with ammonia levels. 01/22 trough depakote level 75, ammonia 41. continue tx. continue tx 01/24 continue tx. 01/25 continue tx. 01/26 continue tx. 01/27: continue current mgmt. 01/28: continue current mgmt. 01/29 continue tx. 01/30 continue tx. 01/31 continues tx-continue monitor bilat LE- doppler did not show DVT. 02/01: No change in medications, continue current plan of care. 02/02: Continue current plan. 02/03: Continue current plans and regimen 02/04 continue tx. 02/05 continue tx. 02/06 continue tx. 02/07 continue tx. 02/09: no changes 02/10 continue tx. 02/11 continue tx. Reason for continued inpatient stay Substantial Risk for: inability to function Time Spent With Patient Time: Total time managing care of this patient today ____ minutes.
[2023-02-11 11:29] LABS: Glucose, Whole Blood 176 mg/dL (60-115)
[2023-02-11] MEDS: Insulin Lispro 100 UNIT/ML 3 ML VIAL SUBCUT (11:44)
[2023-02-11 16:23] LABS: Glucose, Whole Blood 109 mg/dL (60-115)
[2023-02-11 18:00] VITALS: BP 131/65; PULSE 61; RESP 16; TEMP 36.2; O2SAT 97
[2023-02-11 19:56] LABS: Glucose, Whole Blood 210 mg/dL (60-115)
[2023-02-11] MEDS: Divalproex Sodium 500 MG TABLET.DR PO (21:23)
[2023-02-11] MEDS: Insulin Glargine,Hum.rec.anlog 100 UNIT/ML 10 ML VIAL 47 UNIT SUBCUT (21:23)
[2023-02-11] MEDS: Gabapentin 600 MG TABLET 1200 MG PO (21:23)
[2023-02-11] MEDS: Atorvastatin Calcium 20 MG TABLET PO (21:24)
[2023-02-11] MEDS: Donepezil HCl 10 MG TABLET PO (21:24)
[2023-02-11] MEDS: traZODone HCL 50 MG TABLET PO (21:24)
[2023-02-11] MEDS: Valsartan 80 MG TABLET PO (21:24)
[2023-02-12 06:00] VITALS: BP 118/60; PULSE 62; RESP 18; TEMP 36; O2SAT 97
[2023-02-12] MEDS: Levothyroxine Sodium 75 MCG TABLET PO (06:36)
[2023-02-12 06:47] LABS: Glucose, Whole Blood 80 mg/dL (60-115)
[2023-02-12] MEDS: Clopidogrel Bisulfate 75 MG TABLET PO (08:25)
[2023-02-12] MEDS: Escitalopram Oxalate 10 MG TABLET PO (08:25)
[2023-02-12] MEDS: Metoprolol Tartrate 25 MG TABLET PO (08:25)
[2023-02-12] MEDS: Memantine HCl 10 MG TABLET PO ×2 (08:25→20:15)
[2023-02-12] MEDS: Divalproex Sodium 250 MG TABLET.DR PO (08:26)
[2023-02-12] MEDS: Lidocaine 4 % Patch ADH..PATCH 1 PATCH TRANSDERMA (08:28)
[2023-02-12 11:13] LABS: Glucose, Whole Blood 129 mg/dL (60-115)
[2023-02-12 16:07] LABS: Glucose, Whole Blood 175 mg/dL (60-115)
--- NOTE | 2023-02-12 16:07 | HO.PSYCHPN ---
Subjective Subjective Date of Service: 02/12/23 Reason For Visit: Depression Subjective Notes: Conditional Voluntary Healthcare Proxy: Yes Interim History: Pt well groomed, visible on the unit and social with select peers. she does attend assigned groups. no behavioral concerns. She denies depression or anxiety. No SI/HI. No VH/AH. no signs of delusions. She takes medications as prescribed. VS stable bp 118/60, Hr 62. Review of Systems Review of Systems nothing acute Yes all other systems are reviewed and are negative Mental Status Exam Mental Status Exam Narrative: Appearance: wearing street clothes, fair hygiene, in NAD Behavior: cooperative Psychomotor: no agitation noted Speech: clear, normal rate/rhythm/volume, spontaneous TP: linear TC: no overt delusional content noted or reported Mood: good Affect: congruent SI: none expressed HI: none expressed VH/AH: none expressed Delusions: none expressed Insight/judgment: fair x 2. Memory/cog: alert, oriented x 3. Diagnostics Vital Signs (24Hr): Vital Signs - 24 hr 02/11/23 18:00 02/12/23 06:00 Temperature 97.1 F 96.8 F Pulse Rate 61 62 Respiratory Rate 16 18 Blood Pressure 131/65 118/60 Pulse Oximetry 97 97 Oxygen Delivery Method Room Air Room Air BMI result Body Mass Index 28.4 Labs 01/07/23 17:49 01/07/23 17:49 Labs: Laboratory Results - last 48 hr 02/10/23 02/10/23 02/11/23 16:35 19:52 06:23 POC Glucose 141 H 263 H 89 02/11/23 02/11/23 02/11/23 11:25 16:18 19:49 POC Glucose 176 H 109 210 H 02/12/23 02/12/23 06:39 11:10 POC Glucose 80 129 H Imaging Radiology Impressions: ITS Impressions Venous Duplex 01/30/23 16:02 IMPRESSION: No DVT demonstrated in the bilateral lower extremity. Medications Medications Current Medications Acetaminophen (Acetaminophen 325 Mg Tablet) 650 mg PO Q6H PRN PRN Reason: Headache/Pain Mild Scale (1-3) Last Admin: 02/09/23 21:16 Dose: 650 mg Al Hydroxide/Mg Hydroxide (Magnesium Hydrox/Alum Hydrox 30 Ml Oral.Susp) 30 ml PO Q6H PRN PRN Reason: Heartburn/Nausea Last Admin: 02/10/23 22:17 Dose: 30 ml Atorvastatin Calcium (Atorvastatin Calcium 20 Mg Tablet) 20 mg PO BEDTIME [facility] Last Admin: 02/11/23 21:24 Dose: 20 mg Bisacodyl (Bisacodyl 10 Mg Supp.Rect) 10 mg [place] DAILY PRN PRN Reason: Constipation Clopidogrel Bisulfate (Clopidogrel Bisulfate 75 Mg Tablet) 75 mg PO DAILY [facility] Last Admin: 02/12/23 08:25 Dose: 75 mg Divalproex Sodium (Divalproex Sodium 500 Mg Tablet.) 500 mg PO BEDTIME [facility] Last Admin: 02/11/23 21:23 Dose: 500 mg Divalproex Sodium (Divalproex Sodium 250 Mg Tablet.) 250 mg PO DAILY [facility] Last Admin: 02/12/23 08:26 Dose: 250 mg Donepezil HCl (Donepezil Hcl 10 Mg Tablet) 10 mg PO BEDTIME [facility] Last Admin: 02/11/23 21:24 Dose: 10 mg Escitalopram Oxalate (Escitalopram Oxalate 10 Mg Tablet) 10 mg PO DAILY [facility] Last Admin: 02/12/23 08:25 Dose: 10 mg Gabapentin (Gabapentin 600 Mg Tablet) 1,200 mg PO BEDTIME [facility] Last Admin: 02/11/23 21:23 Dose: 1,200 mg Glucagon (Glucagon Hcl 1 Mg Vial) 1 mg SUBCUT Q20M PRN PRN Reason: BG <70 AND UNRESPONSIVE Glucose (Glucose Gel 15 Gm Gel..Gram.) 15 gm PO Q15M PRN PRN Reason: BG <70 AND RESPONSIVE Last Admin: 01/30/23 03:12 Dose: 15 gm Insulin Glargine (Insulin Glargine,Hum.Rec.Anlog 100 Unit/Ml 10 Ml Vial) 47 unit SUBCUT BEDTIME [facility] Last Admin: 02/11/23 21:23 Dose: 47 unit Insulin Human Lispro (Insulin Lispro 100 Unit/Ml 3 Ml Vial) 0 unit SUBCUT TIDAC [facility]; Protocol Last Admin: 02/12/23 11:12 Dose: Not Given Levothyroxine Sodium (Levothyroxine Sodium 75 Mcg Tablet) 75 mcg PO DAILY@0630 [facility] Last Admin: 02/12/23 06:36 Dose: 75 mcg Lidocaine (Lidocaine 4 % Patch Adh..Patch) 1 patch TRANSDERMA DAILY [facility]; Protocol Last Admin: 02/12/23 08:28 Dose: 1 patch Loperamide HCl (Loperamide Hcl 2 Mg Capsule) 2 mg PO Q6H PRN PRN Reason: diarrhea Last Admin: 02/10/23 22:16 Dose: 2 mg Magnesium Hydroxide (Milk Of Magnesia 30 Ml Oral.Susp) 30 ml PO DAILY PRN PRN Reason: Constipation Magnesium Hydroxide (Milk Of Magnesia 30 Ml Oral.Susp) 30 ml PO DAILY PRN PRN Reason: Constipation Memantine (Memantine Hcl 10 Mg Tablet) 10 mg PO BID [facility] Last Admin: 02/12/23 08:25 Dose: 10 mg Metoprolol Tartrate (Metoprolol Tartrate 25 Mg Tablet) 25 mg PO DAILY [facility]; Protocol Last Admin: 02/12/23 08:25 Dose: 25 mg Quetiapine Fumarate (Quetiapine Fumarate 50 Mg Tablet) 50 mg PO Q6H PRN PRN Reason: agitation Last Admin: 01/08/23 23:46 Dose: 50 mg Sodium Biphosphate/Sodium Phosphate (Sodium Phosphate,[place]-Dibasic 133 Ml Enema) 133 ml [place] DAILY PRN PRN Reason: Constipation Trazodone HCl (Trazodone Hcl 50 Mg Tablet) 50 mg PO BEDTIME PRN PRN Reason: Insomnia Last Admin: 02/11/23 21:24 Dose: 50 mg Valsartan (Valsartan 80 Mg Tablet) 80 mg PO BEDTIME [facility]; Protocol Last Admin: 02/11/23 21:24 Dose: 80 mg Allergies Allergies Allergy/AdvReac Type Severity Reaction Status Date / Time aspirin [ASPIRIN] Allergy Unknown UNKNOWN Verified 01/01/23 09:43 Assessment & Plan Assessment & Plan (1) Major neurocognitive disorder: Status: Acute Code(s): F03.90 - Unspecified dementia, unspecified severity, without behavioral disturbance, psychotic disturbance, mood disturbance, and anxiety (2) Mood disorder: Status: Acute Code(s): F39 - Unspecified mood [affective] disorder Plan Ms. Landis is a 67 year-old woman with hx of Mood Disorder (untreated for most of her life) and neurocognitive disorder who was brought via EMS from [facility] due to increase verbal aggression towards roommate and one of their staff. Pt is known to this sign writer letterer or painter through previous assessment for similar presentation. Pt presents as calmer, she does admit to being verbally abusive, although denies any intent to harm self or others. She does lack the insight into how her behaviors affect others and her relationships with others. This tendency to have difficulty seeing other people's need per daughter has been life long. Pt presents with tendency to be irritable, at times explosive but not physically aggressive. She was started back in September on low dose of seroquel but no further medication adjustments have been made to manage these symptoms, which are disruptive but not life threatening nor at imminent risk of harm to self or others. As consequence of minimal intervention in the community, pt has had more frequent ED visits here and at [facility]. We discussed risks, benefits and alternative treatment options, pt agrees to start mood stabilizer for impulsive, explosive behaviors. We also discussed switching seroquel to risperidone. Pt is orientation has been intact all along. PLAN 01/20 schedule trazodone 50mg po qhs for sleep. 01/21 continue tx. depakote levels scheduled for tomorrow AM with ammonia levels. 01/22 trough depakote level 75, ammonia 41. continue tx. continue tx 01/24 continue tx. 01/25 continue tx. 01/26 continue tx. 01/27: continue current mgmt. 01/28: continue current mgmt. 01/29 continue tx. 01/30 continue tx. 01/31 continues tx-continue monitor bilat LE- doppler did not show DVT. 02/01: No change in medications, continue current plan of care. 02/02: Continue current plan. 02/03: Continue current plans and regimen 02/04 continue tx. 02/05 continue tx. 02/06 continue tx. 02/07 continue tx. 02/09: no changes 02/10 continue tx. 02/11 continue tx. 02/12 continue tx. Reason for continued inpatient stay Substantial Risk for: inability to function Time Spent With Patient Time: Total time managing care of this patient today ____ minutes.
[2023-02-12] MEDS: Insulin Lispro 100 UNIT/ML 3 ML VIAL SUBCUT (16:34)
[2023-02-12] MEDS: Valsartan 80 MG TABLET PO (20:15)
[2023-02-12] MEDS: Divalproex Sodium 500 MG TABLET.DR PO (20:15)
[2023-02-12] MEDS: Donepezil HCl 10 MG TABLET PO (20:15)
[2023-02-12] MEDS: Atorvastatin Calcium 20 MG TABLET PO (20:15)
[2023-02-12] MEDS: traZODone HCL 50 MG TABLET PO (20:15)
[2023-02-12] MEDS: Gabapentin 600 MG TABLET 1200 MG PO (20:15)
[2023-02-12] MEDS: Insulin Glargine,Hum.rec.anlog 100 UNIT/ML 10 ML VIAL 47 UNIT SUBCUT (20:23)
[2023-02-12 20:50] LABS: Glucose, Whole Blood 243 mg/dL (60-115)
[2023-02-13] MEDS: Levothyroxine Sodium 75 MCG TABLET PO (06:34)
[2023-02-13 06:57] LABS: Glucose, Whole Blood 102 mg/dL (60-115)
[2023-02-13 07:00] VITALS: BMI 28.1
[2023-02-13 09:14] VITALS: BP 112/55; PULSE 60; RESP 17; TEMP 36.2; O2SAT 96
[2023-02-13] MEDS: Divalproex Sodium 250 MG TABLET.DR PO (09:16)
[2023-02-13] MEDS: Clopidogrel Bisulfate 75 MG TABLET PO (09:16)
[2023-02-13] MEDS: Escitalopram Oxalate 10 MG TABLET PO (09:17)
[2023-02-13] MEDS: Memantine HCl 10 MG TABLET PO ×2 (09:17→20:27)
[2023-02-13] MEDS: Lidocaine 4 % Patch ADH..PATCH 1 PATCH TRANSDERMA (09:21)
--- NOTE | 2023-02-13 09:33 | PC.NURSE ---
Addendum entered by Alayna Zhang RN 02/13/23 11:04: Patients BP 116/52 with HR now of 58 when re checked. Holding Metoprolol for the morning, provider notified. Original Note: Patients BP this morning read 112/55 with a HR of 60, patient is asymptomatic. Metoprolol held and TIER LIFT OPERATOR Tanya Perez notified via tiger text.
[2023-02-13 10:37] VITALS: BP 116/52; PULSE 58
[2023-02-13 11:26] LABS: Glucose, Whole Blood 182 mg/dL (60-115)
[2023-02-13] MEDS: Insulin Lispro 100 UNIT/ML 3 ML VIAL SUBCUT ×2 (11:47→16:33)
[2023-02-13 16:21] LABS: Glucose, Whole Blood 206 mg/dL (60-115)
[2023-02-13 19:53] VITALS: BP 152/71; PULSE 63; RESP 17; TEMP 35.9; O2SAT 98
[2023-02-13 20:06] LABS: Glucose, Whole Blood 211 mg/dL (60-115)
[2023-02-13] MEDS: Gabapentin 600 MG TABLET 1200 MG PO (20:27)
[2023-02-13] MEDS: Divalproex Sodium 500 MG TABLET.DR PO (20:27)
[2023-02-13] MEDS: Valsartan 80 MG TABLET PO (20:27)
[2023-02-13] MEDS: Donepezil HCl 10 MG TABLET PO (20:27)
[2023-02-13] MEDS: Atorvastatin Calcium 20 MG TABLET PO (20:27)
[2023-02-13] MEDS: Insulin Glargine,Hum.rec.anlog 100 UNIT/ML 10 ML VIAL 47 UNIT SUBCUT (20:29)
[2023-02-14] MEDS: Levothyroxine Sodium 75 MCG TABLET PO (06:09)
[2023-02-14 06:26] LABS: Glucose, Whole Blood 69 mg/dL (60-115)
[2023-02-14 07:55] VITALS: BP 133/60; PULSE 62; RESP 18; TEMP 36.4; O2SAT 96
[2023-02-14] MEDS: Metoprolol Tartrate 25 MG TABLET PO (08:23)
[2023-02-14] MEDS: Clopidogrel Bisulfate 75 MG TABLET PO (08:23)
[2023-02-14] MEDS: Escitalopram Oxalate 10 MG TABLET PO (08:23)
[2023-02-14] MEDS: Memantine HCl 10 MG TABLET PO ×2 (08:23→20:28)
[2023-02-14] MEDS: Divalproex Sodium 250 MG TABLET.DR PO (08:23)
[2023-02-14] MEDS: Lidocaine 4 % Patch ADH..PATCH 1 PATCH TRANSDERMA (09:29)
[2023-02-14 11:39] LABS: Glucose, Whole Blood 120 mg/dL (60-115)
--- NOTE | 2023-02-14 12:54 | P.PNPSI_ITS ---
Subjective Subjective Date of Service: 02/13/23 Reason For Visit: Depression Subjective Notes: Conditional Voluntary Healthcare Proxy: Yes Interim History: Pt well groomed, visible on the unit and social with select peers. she does attend assigned groups. no behavioral concerns. She continues to denies depression or anxiety. No SI/HI. No VH/AH. no signs of delusions. She takes medications as prescribed. She is awaiting placement Review of Systems Review of Systems nothing acute Yes all other systems are reviewed and are negative Mental Status Exam Mental Status Exam Narrative: Appearance: wearing street clothes, fair hygiene, in NAD Behavior: cooperative Psychomotor: no agitation noted Speech: clear, normal rate/rhythm/volume, spontaneous TP: linear TC: no overt delusional content noted or reported Mood: good Affect: congruent SI: none expressed HI: none expressed VH/AH: none expressed Delusions: none expressed Insight/judgment: fair x 2. Memory/cog: alert, oriented x 3. Diagnostics Vital Signs (24Hr): Vital Signs - 24 hr 02/13/23 19:53 02/14/23 07:55 Temperature 96.6 F L 97.5 F Pulse Rate 63 62 Respiratory Rate 17 18 Blood Pressure 152/71 H 133/60 Pulse Oximetry 98 96 Oxygen Delivery Method Room Air Room Air BMI result Body Mass Index 28.1 Labs 01/07/23 17:49 01/07/23 17:49 Labs: Laboratory Results - last 48 hr 02/12/23 02/12/23 02/13/23 16:03 20:13 06:29 POC Glucose 175 H 243 H 102 02/13/23 02/13/23 02/13/23 11:21 16:17 20:01 POC Glucose 182 H 206 H 211 H 02/14/23 02/14/23 06:07 11:34 POC Glucose 69 120 H Imaging Radiology Impressions: ITS Impressions Venous Duplex 01/30/23 16:02 IMPRESSION: No DVT demonstrated in the bilateral lower extremity. Medications Medications Current Medications Acetaminophen (Acetaminophen 325 Mg Tablet) 650 mg PO Q6H PRN PRN Reason: Headache/Pain Mild Scale (1-3) Last Admin: 02/09/23 21:16 Dose: 650 mg Al Hydroxide/Mg Hydroxide (Magnesium Hydrox/Alum Hydrox 30 Ml Oral.Susp) 30 ml PO Q6H PRN PRN Reason: Heartburn/Nausea Last Admin: 02/10/23 22:17 Dose: 30 ml Atorvastatin Calcium (Atorvastatin Calcium 20 Mg Tablet) 20 mg PO BEDTIME [facility] Last Admin: 02/13/23 20:27 Dose: 20 mg Bisacodyl (Bisacodyl 10 Mg Supp.Rect) 10 mg [place] DAILY PRN PRN Reason: Constipation Clopidogrel Bisulfate (Clopidogrel Bisulfate 75 Mg Tablet) 75 mg PO DAILY [facility] Last Admin: 02/14/23 08:23 Dose: 75 mg Divalproex Sodium (Divalproex Sodium 500 Mg Tablet.) 500 mg PO BEDTIME [facility] Last Admin: 02/13/23 20:27 Dose: 500 mg Divalproex Sodium (Divalproex Sodium 250 Mg Tablet.) 250 mg PO DAILY [facility] Last Admin: 02/14/23 08:23 Dose: 250 mg Donepezil HCl (Donepezil Hcl 10 Mg Tablet) 10 mg PO BEDTIME [facility] Last Admin: 02/13/23 20:27 Dose: 10 mg Escitalopram Oxalate (Escitalopram Oxalate 10 Mg Tablet) 10 mg PO DAILY [facility] Last Admin: 02/14/23 08:23 Dose: 10 mg Gabapentin (Gabapentin 600 Mg Tablet) 1,200 mg PO BEDTIME [facility] Last Admin: 02/13/23 20:27 Dose: 1,200 mg Glucagon (Glucagon Hcl 1 Mg Vial) 1 mg SUBCUT Q20M PRN PRN Reason: BG <70 AND UNRESPONSIVE Glucose (Glucose Gel 15 Gm Gel..Gram.) 15 gm PO Q15M PRN PRN Reason: BG <70 AND RESPONSIVE Last Admin: 01/30/23 03:12 Dose: 15 gm Insulin Glargine (Insulin Glargine,Hum.Rec.Anlog 100 Unit/Ml 10 Ml Vial) 47 unit SUBCUT BEDTIME [facility] Last Admin: 02/13/23 20:29 Dose: 47 unit Insulin Human Lispro (Insulin Lispro 100 Unit/Ml 3 Ml Vial) 0 unit SUBCUT TIDAC [facility]; Protocol Last Admin: 02/14/23 12:14 Dose: Not Given Levothyroxine Sodium (Levothyroxine Sodium 75 Mcg Tablet) 75 mcg PO DAILY@0630 [facility] Last Admin: 02/14/23 06:09 Dose: 75 mcg Lidocaine (Lidocaine 4 % Patch Adh..Patch) 1 patch TRANSDERMA DAILY [facility]; Protocol Last Admin: 02/14/23 09:29 Dose: 1 patch Loperamide HCl (Loperamide Hcl 2 Mg Capsule) 2 mg PO Q6H PRN PRN Reason: diarrhea Last Admin: 02/10/23 22:16 Dose: 2 mg Magnesium Hydroxide (Milk Of Magnesia 30 Ml Oral.Susp) 30 ml PO DAILY PRN PRN Reason: Constipation Magnesium Hydroxide (Milk Of Magnesia 30 Ml Oral.Susp) 30 ml PO DAILY PRN PRN Reason: Constipation Memantine (Memantine Hcl 10 Mg Tablet) 10 mg PO BID [facility] Last Admin: 02/14/23 08:23 Dose: 10 mg Metoprolol Tartrate (Metoprolol Tartrate 25 Mg Tablet) 25 mg PO DAILY [facility]; Protocol Last Admin: 02/14/23 08:23 Dose: 25 mg Quetiapine Fumarate (Quetiapine Fumarate 50 Mg Tablet) 50 mg PO Q6H PRN PRN Reason: agitation Last Admin: 01/08/23 23:46 Dose: 50 mg Sodium Biphosphate/Sodium Phosphate (Sodium Phosphate,[place]-Dibasic 133 Ml Enema) 133 ml [place] DAILY PRN PRN Reason: Constipation Trazodone HCl (Trazodone Hcl 50 Mg Tablet) 50 mg PO BEDTIME PRN PRN Reason: Insomnia Last Admin: 02/12/23 20:15 Dose: 50 mg Valsartan (Valsartan 80 Mg Tablet) 80 mg PO BEDTIME [facility]; Protocol Last Admin: 02/13/23 20:27 Dose: 80 mg Allergies Allergies Allergy/AdvReac Type Severity Reaction Status Date / Time aspirin [ASPIRIN] Allergy Unknown UNKNOWN Verified 01/01/23 09:43 Assessment & Plan Assessment & Plan (1) Major neurocognitive disorder: Status: Acute Code(s): F03.90 - Unspecified dementia, unspecified severity, without behavioral disturbance, psychotic disturbance, mood disturbance, and anxiety (2) Mood disorder: Status: Acute Code(s): F39 - Unspecified mood [affective] disorder Plan Ms. Landis is a 67 year-old woman with hx of Mood Disorder (untreated for most of her life) and neurocognitive disorder who was brought via EMS from [facility] due to increase verbal aggression towards roommate and one of their staff. Pt is known to this ticket writer through previous assessment for similar presentation. Pt presents as calmer, she does admit to being verbally abusive, although denies any intent to harm self or others. She does lack the insight into how her behaviors affect others and her relationships with others. This tendency to have difficulty seeing other people's need per daughter has been life long. Pt presents with tendency to be irritable, at times explosive but not physically aggressive. She was started back in September on low dose of seroquel but no further medication adjustments have been made to manage these symptoms, which are disruptive but not life threatening nor at imminent risk of harm to self or others. As consequence of minimal intervention in the community, pt has had more frequent ED visits here and at [facility]. We discussed risks, benefits and alternative treatment options, pt agrees to start mood stabilizer for impulsive, explosive behaviors. We also discussed switching seroquel to risperidone. Pt is orientation has been intact all along. PLAN 01/20 schedule trazodone 50mg po qhs for sleep. 01/21 continue tx. depakote levels scheduled for tomorrow AM with ammonia levels. 01/22 trough depakote level 75, ammonia 41. continue tx. continue tx 01/24 continue tx. 01/25 continue tx. 01/26 continue tx. 01/27: continue current mgmt. 01/28: continue current mgmt. 01/29 continue tx. 01/30 continue tx. 01/31 continues tx-continue monitor bilat LE- doppler did not show DVT. 02/01: No change in medications, continue current plan of care. 02/02: Continue current plan. 02/03: Continue current plans and regimen 02/04 continue tx. 02/05 continue tx. 02/06 continue tx. 02/07 continue tx. 02/09: no changes 02/10 continue tx. 02/11 continue tx. 02/12 continue tx. 02/13 continue tx. Reason for continued inpatient stay Substantial Risk for: inability to function Time Spent With Patient Time: Total time managing care of this patient today ____ minutes.
--- NOTE | 2023-02-14 12:55 | P.PNPSI_ITS ---
Subjective Subjective Date of Service: 02/14/23 Reason For Visit: Depression Subjective Notes: Conditional Voluntary Interim History: Pt continues to present as well groomed, visible on the unit and social with select peers. she does attend assigned groups. no behavioral concerns. She continues to denies depression or anxiety. No SI/HI. No VH/AH. no signs of delusions. She takes medications as prescribed. She is awaiting placement Review of Systems Review of Systems nothing acute Yes all other systems are reviewed and are negative Mental Status Exam Mental Status Exam Narrative: Appearance: wearing street clothes, fair hygiene, in NAD Behavior: cooperative Psychomotor: no agitation noted Speech: clear, normal rate/rhythm/volume, spontaneous TP: linear TC: no overt delusional content noted or reported Mood: good Affect: congruent SI: none expressed HI: none expressed VH/AH: none expressed Delusions: none expressed Insight/judgment: fair x 2. Memory/cog: alert, oriented x 3. Diagnostics Vital Signs (24Hr): Vital Signs - 24 hr 02/13/23 19:53 02/14/23 07:55 Temperature 96.6 F L 97.5 F Pulse Rate 63 62 Respiratory Rate 17 18 Blood Pressure 152/71 H 133/60 Pulse Oximetry 98 96 Oxygen Delivery Method Room Air Room Air BMI result Body Mass Index 28.1 Labs 01/07/23 17:49 01/07/23 17:49 Labs: Laboratory Results - last 48 hr 02/12/23 02/12/23 02/13/23 16:03 20:13 06:29 POC Glucose 175 H 243 H 102 02/13/23 02/13/23 02/13/23 11:21 16:17 20:01 POC Glucose 182 H 206 H 211 H 02/14/23 02/14/23 06:07 11:34 POC Glucose 69 120 H Imaging Radiology Impressions: ITS Impressions Venous Duplex 01/30/23 16:02 IMPRESSION: No DVT demonstrated in the bilateral lower extremity. Medications Medications Current Medications Acetaminophen (Acetaminophen 325 Mg Tablet) 650 mg PO Q6H PRN PRN Reason: Headache/Pain Mild Scale (1-3) Last Admin: 02/09/23 21:16 Dose: 650 mg Al Hydroxide/Mg Hydroxide (Magnesium Hydrox/Alum Hydrox 30 Ml Oral.Susp) 30 ml PO Q6H PRN PRN Reason: Heartburn/Nausea Last Admin: 02/10/23 22:17 Dose: 30 ml Atorvastatin Calcium (Atorvastatin Calcium 20 Mg Tablet) 20 mg PO BEDTIME [facility] Last Admin: 02/13/23 20:27 Dose: 20 mg Bisacodyl (Bisacodyl 10 Mg Supp.Rect) 10 mg [place] DAILY PRN PRN Reason: Constipation Clopidogrel Bisulfate (Clopidogrel Bisulfate 75 Mg Tablet) 75 mg PO DAILY [facility] Last Admin: 02/14/23 08:23 Dose: 75 mg Divalproex Sodium (Divalproex Sodium 500 Mg Tablet.) 500 mg PO BEDTIME [facility] Last Admin: 02/13/23 20:27 Dose: 500 mg Divalproex Sodium (Divalproex Sodium 250 Mg Tablet.) 250 mg PO DAILY [facility] Last Admin: 02/14/23 08:23 Dose: 250 mg Donepezil HCl (Donepezil Hcl 10 Mg Tablet) 10 mg PO BEDTIME [facility] Last Admin: 02/13/23 20:27 Dose: 10 mg Escitalopram Oxalate (Escitalopram Oxalate 10 Mg Tablet) 10 mg PO DAILY [facility] Last Admin: 02/14/23 08:23 Dose: 10 mg Gabapentin (Gabapentin 600 Mg Tablet) 1,200 mg PO BEDTIME [facility] Last Admin: 02/13/23 20:27 Dose: 1,200 mg Glucagon (Glucagon Hcl 1 Mg Vial) 1 mg SUBCUT Q20M PRN PRN Reason: BG <70 AND UNRESPONSIVE Glucose (Glucose Gel 15 Gm Gel..Gram.) 15 gm PO Q15M PRN PRN Reason: BG <70 AND RESPONSIVE Last Admin: 01/30/23 03:12 Dose: 15 gm Insulin Glargine (Insulin Glargine,Hum.Rec.Anlog 100 Unit/Ml 10 Ml Vial) 47 unit SUBCUT BEDTIME [facility] Last Admin: 02/13/23 20:29 Dose: 47 unit Insulin Human Lispro (Insulin Lispro 100 Unit/Ml 3 Ml Vial) 0 unit SUBCUT TIDAC [facility]; Protocol Last Admin: 02/14/23 12:14 Dose: Not Given Levothyroxine Sodium (Levothyroxine Sodium 75 Mcg Tablet) 75 mcg PO DAILY@0630 [facility] Last Admin: 02/14/23 06:09 Dose: 75 mcg Lidocaine (Lidocaine 4 % Patch Adh..Patch) 1 patch TRANSDERMA DAILY [facility]; Protocol Last Admin: 02/14/23 09:29 Dose: 1 patch Loperamide HCl (Loperamide Hcl 2 Mg Capsule) 2 mg PO Q6H PRN PRN Reason: diarrhea Last Admin: 02/10/23 22:16 Dose: 2 mg Magnesium Hydroxide (Milk Of Magnesia 30 Ml Oral.Susp) 30 ml PO DAILY PRN PRN Reason: Constipation Magnesium Hydroxide (Milk Of Magnesia 30 Ml Oral.Susp) 30 ml PO DAILY PRN PRN Reason: Constipation Memantine (Memantine Hcl 10 Mg Tablet) 10 mg PO BID [facility] Last Admin: 02/14/23 08:23 Dose: 10 mg Metoprolol Tartrate (Metoprolol Tartrate 25 Mg Tablet) 25 mg PO DAILY [facility]; Protocol Last Admin: 02/14/23 08:23 Dose: 25 mg Quetiapine Fumarate (Quetiapine Fumarate 50 Mg Tablet) 50 mg PO Q6H PRN PRN Reason: agitation Last Admin: 01/08/23 23:46 Dose: 50 mg Sodium Biphosphate/Sodium Phosphate (Sodium Phosphate,[place]-Dibasic 133 Ml Enema) 133 ml [place] DAILY PRN PRN Reason: Constipation Trazodone HCl (Trazodone Hcl 50 Mg Tablet) 50 mg PO BEDTIME PRN PRN Reason: Insomnia Last Admin: 02/12/23 20:15 Dose: 50 mg Valsartan (Valsartan 80 Mg Tablet) 80 mg PO BEDTIME [facility]; Protocol Last Admin: 02/13/23 20:27 Dose: 80 mg Allergies Allergies Allergy/AdvReac Type Severity Reaction Status Date / Time aspirin [ASPIRIN] Allergy Unknown UNKNOWN Verified 01/01/23 09:43 Assessment & Plan Assessment & Plan (1) Major neurocognitive disorder: Status: Acute Code(s): F03.90 - Unspecified dementia, unspecified severity, without behavioral disturbance, psychotic disturbance, mood disturbance, and anxiety (2) Mood disorder: Status: Acute Code(s): F39 - Unspecified mood [affective] disorder Plan Ms. Landis is a 67 year-old woman with hx of Mood Disorder (untreated for most of her life) and neurocognitive disorder who was brought via EMS from [facility] due to increase verbal aggression towards roommate and one of their staff. Pt is known to this keno writer through previous assessment for similar presentation. Pt presents as calmer, she does admit to being verbally abusive, although denies any intent to harm self or others. She does lack the insight into how her behaviors affect others and her relationships with others. This tendency to have difficulty seeing other people's need per daughter has been life long. Pt presents with tendency to be irritable, at times explosive but not physically aggressive. She was started back in September on low dose of seroquel but no further medication adjustments have been made to manage these symptoms, which are disruptive but not life threatening nor at imminent risk of harm to self or others. As consequence of minimal intervention in the community, pt has had more frequent ED visits here and at [facility]. We discussed risks, benefits and alternative treatment options, pt agrees to start mood stabilizer for impulsive, explosive behaviors. We also discussed switching seroquel to risperidone. Pt is orientation has been intact all along. PLAN 01/20 schedule trazodone 50mg po qhs for sleep. 01/21 continue tx. depakote levels scheduled for tomorrow AM with ammonia levels. 01/22 trough depakote level 75, ammonia 41. continue tx. continue tx 01/24 continue tx. 01/25 continue tx. 01/26 continue tx. 01/27: continue current mgmt. 01/28: continue current mgmt. 01/29 continue tx. 01/30 continue tx. 01/31 continues tx-continue monitor bilat LE- doppler did not show DVT. 02/01: No change in medications, continue current plan of care. 02/02: Continue current plan. 02/03: Continue current plans and regimen 02/04 continue tx. 02/05 continue tx. 02/06 continue tx. 02/07 continue tx. 02/09: no changes 02/10 continue tx. 02/11 continue tx. 02/12 continue tx. 02/13 continue tx. 02/14 continue tx. awaiting placement. Reason for continued inpatient stay Substantial Risk for: inability to function Time Spent With Patient Time: Total time managing care of this patient today ____ minutes.
[2023-02-14 16:13] LABS: Glucose, Whole Blood 171 mg/dL (60-115)
[2023-02-14] MEDS: Insulin Lispro 100 UNIT/ML 3 ML VIAL SUBCUT (16:59)
[2023-02-14 18:00] VITALS: BP 131/58; PULSE 66; RESP 18; TEMP 36.7
[2023-02-14 19:50] LABS: Glucose, Whole Blood 183 mg/dL (60-115)
[2023-02-14] MEDS: Insulin Glargine,Hum.rec.anlog 100 UNIT/ML 10 ML VIAL 47 UNIT SUBCUT (20:27)
[2023-02-14] MEDS: Donepezil HCl 10 MG TABLET PO (20:28)
[2023-02-14] MEDS: Valsartan 80 MG TABLET PO (20:28)
[2023-02-14] MEDS: Gabapentin 600 MG TABLET 1200 MG PO (20:28)
[2023-02-14] MEDS: Atorvastatin Calcium 20 MG TABLET PO (20:28)
[2023-02-14] MEDS: Divalproex Sodium 500 MG TABLET.DR PO (20:29)
[2023-02-14] MEDS: traZODone HCL 50 MG TABLET PO (20:29)
[2023-02-15] MEDS: Levothyroxine Sodium 75 MCG TABLET PO (06:10)
[2023-02-15 06:19] LABS: Glucose, Whole Blood 71 mg/dL (60-115)
[2023-02-15 08:16] VITALS: BP 109/70; PULSE 62; RESP 18; TEMP 36.2; O2SAT 97
[2023-02-15] MEDS: Lidocaine 4 % Patch ADH..PATCH 1 PATCH TRANSDERMA (08:21)
[2023-02-15] MEDS: Escitalopram Oxalate 10 MG TABLET PO (08:21)
[2023-02-15] MEDS: Divalproex Sodium 250 MG TABLET.DR PO (08:21)
[2023-02-15] MEDS: Memantine HCl 10 MG TABLET PO ×2 (08:21→20:21)
[2023-02-15] MEDS: Metoprolol Tartrate 25 MG TABLET PO (08:21)
[2023-02-15] MEDS: Clopidogrel Bisulfate 75 MG TABLET PO (08:21)
--- NOTE | 2023-02-15 10:08 | P.PNPSI_ITS ---
Subjective Subjective Date of Service: 02/15/23 Reason For Visit: Depression Interim History: RN reports POC was 71 in AM. She received a snack and BS improved. She was asymptomatic. Pt continues to present as well groomed, visible on the unit and social with select peers. She has some headache that she took Tylenol for. Says her mood is OK. Appetite OK . Denies SI. No HI. No AVH. She attends assigned groups. No behavioral concerns. She continues to denies depression or anxiety. No SI/HI. No VH/AH. no signs of delusions. She takes medications as prescribed. She is awaiting placement Review of Systems Review of Systems nothing acute Yes all other systems are reviewed and are negative Mental Status Exam Mental Status Exam Narrative: Appearance: wearing street clothes, fair hygiene, in NAD Behavior: cooperative Psychomotor: no agitation noted Speech: clear, normal rate/rhythm/volume, spontaneous TP: linear TC: no overt delusional content noted or reported Mood: good Affect: congruent SI: none expressed HI: none expressed VH/AH: none expressed Delusions: none expressed Insight/judgment: fair x 2. Memory/cog: alert, oriented x 3. Patient Appearance: Appropriate Patient Orientation: Person and Situation Level of Consciousness: Awake and Appropriate Patient Behavior: Guarded and Passive Mood Description: Withdrawn Affect Description: Constricted Patient Cognition Impaired: Yes Ability to Follow Directions: Fair Speech Pattern: Clear Diagnostics Vital Signs (24Hr): Vital Signs - 24 hr 02/14/23 18:00 02/15/23 08:16 Temperature 98.0 F 97.1 F Pulse Rate 66 62 Respiratory Rate 18 18 Blood Pressure 131/58 L 109/70 Pulse Oximetry 97 Oxygen Delivery Method Room Air Room Air Oxygen Flow Rate 96 BMI result Body Mass Index 28.1 Labs 01/07/23 17:49 01/07/23 17:49 Labs: Laboratory Results - last 48 hr 02/13/23 02/13/23 02/13/23 11:21 16:17 20:01 POC Glucose 182 H 206 H 211 H 02/14/23 02/14/23 02/14/23 06:07 11:34 16:08 POC Glucose 69 120 H 171 H 02/14/23 02/15/23 19:46 06:15 POC Glucose 183 H 71 Imaging Radiology Impressions: ITS Impressions Venous Duplex 01/30/23 16:02 IMPRESSION: No DVT demonstrated in the bilateral lower extremity. Medications Medications Current Medications Acetaminophen (Acetaminophen 325 Mg Tablet) 650 mg PO Q6H PRN PRN Reason: Headache/Pain Mild Scale (1-3) Last Admin: 02/09/23 21:16 Dose: 650 mg Al Hydroxide/Mg Hydroxide (Magnesium Hydrox/Alum Hydrox 30 Ml Oral.Susp) 30 ml PO Q6H PRN PRN Reason: Heartburn/Nausea Last Admin: 02/10/23 22:17 Dose: 30 ml Atorvastatin Calcium (Atorvastatin Calcium 20 Mg Tablet) 20 mg PO BEDTIME JODEE Last Admin: 02/14/23 20:28 Dose: 20 mg Bisacodyl (Bisacodyl 10 Mg Supp.Rect) 10 mg [place] DAILY PRN PRN Reason: Constipation Clopidogrel Bisulfate (Clopidogrel Bisulfate 75 Mg Tablet) 75 mg PO DAILY [facility] Last Admin: 02/15/23 08:21 Dose: 75 mg Divalproex Sodium (Divalproex Sodium 500 Mg Tablet.) 500 mg PO BEDTIME JODEE Last Admin: 02/14/23 20:29 Dose: 500 mg Divalproex Sodium (Divalproex Sodium 250 Mg Tablet.) 250 mg PO DAILY JODEE Last Admin: 02/15/23 08:21 Dose: 250 mg Donepezil HCl (Donepezil Hcl 10 Mg Tablet) 10 mg PO BEDTIME JODEE Last Admin: 02/14/23 20:28 Dose: 10 mg Escitalopram Oxalate (Escitalopram Oxalate 10 Mg Tablet) 10 mg PO DAILY JODEE Last Admin: 02/15/23 08:21 Dose: 10 mg Gabapentin (Gabapentin 600 Mg Tablet) 1,200 mg PO BEDTIME JODEE Last Admin: 02/14/23 20:28 Dose: 1,200 mg Glucagon (Glucagon Hcl 1 Mg Vial) 1 mg SUBCUT Q20M PRN PRN Reason: BG <70 AND UNRESPONSIVE Glucose (Glucose Gel 15 Gm Gel..Gram.) 15 gm PO Q15M PRN PRN Reason: BG <70 AND RESPONSIVE Last Admin: 01/30/23 03:12 Dose: 15 gm Insulin Glargine (Insulin Glargine,Hum.Rec.Anlog 100 Unit/Ml 10 Ml Vial) 47 unit SUBCUT BEDTIME JODEE Last Admin: 02/14/23 20:27 Dose: 47 unit Insulin Human Lispro (Insulin Lispro 100 Unit/Ml 3 Ml Vial) 0 unit SUBCUT TIDAC [facility]; Protocol Last Admin: 02/15/23 07:36 Dose: Not Given Levothyroxine Sodium (Levothyroxine Sodium 75 Mcg Tablet) 75 mcg PO DAILY@0630 [facility] Last Admin: 02/15/23 06:10 Dose: 75 mcg Lidocaine (Lidocaine 4 % Patch Adh..Patch) 1 patch TRANSDERMA DAILY [facility]; Protocol Last Admin: 02/15/23 08:21 Dose: 1 patch Loperamide HCl (Loperamide Hcl 2 Mg Capsule) 2 mg PO Q6H PRN PRN Reason: diarrhea Last Admin: 02/10/23 22:16 Dose: 2 mg Magnesium Hydroxide (Milk Of Magnesia 30 Ml Oral.Susp) 30 ml PO DAILY PRN PRN Reason: Constipation Magnesium Hydroxide (Milk Of Magnesia 30 Ml Oral.Susp) 30 ml PO DAILY PRN PRN Reason: Constipation Memantine (Memantine Hcl 10 Mg Tablet) 10 mg PO BID [facility] Last Admin: 02/15/23 08:21 Dose: 10 mg Metoprolol Tartrate (Metoprolol Tartrate 25 Mg Tablet) 25 mg PO DAILY [facility]; Protocol Last Admin: 02/15/23 08:21 Dose: 25 mg Quetiapine Fumarate (Quetiapine Fumarate 50 Mg Tablet) 50 mg PO Q6H PRN PRN Reason: agitation Last Admin: 01/08/23 23:46 Dose: 50 mg Sodium Biphosphate/Sodium Phosphate (Sodium Phosphate,[place]-Dibasic 133 Ml Enema) 133 ml [place] DAILY PRN PRN Reason: Constipation Trazodone HCl (Trazodone Hcl 50 Mg Tablet) 50 mg PO BEDTIME PRN PRN Reason: Insomnia Last Admin: 02/14/23 20:29 Dose: 50 mg Valsartan (Valsartan 80 Mg Tablet) 80 mg PO BEDTIME [facility]; Protocol Last Admin: 02/14/23 20:28 Dose: 80 mg Allergies Allergies Allergy/AdvReac Type Severity Reaction Status Date / Time aspirin [ASPIRIN] Allergy Unknown UNKNOWN Verified 01/01/23 09:43 Assessment & Plan Assessment & Plan (1) Major neurocognitive disorder: Status: Acute Code(s): F03.90 - Unspecified dementia, unspecified severity, without behavioral disturbance, psychotic disturbance, mood disturbance, and anxiety (2) Mood disorder: Status: Acute Code(s): F39 - Unspecified mood [affective] disorder Plan Ms. Landis is a 67 year-old woman with hx of Mood Disorder (untreated for most of her life) and neurocognitive disorder who was brought via EMS [facility] due to increase verbal aggression towards roommate and one of their staff. Pt is known to this documentation writer through previous assessment for similar presentation. Pt presents as calmer, she does admit to being verbally abusive, although denies any intent to harm self or others. She does lack the insight into how her behaviors affect others and her relationships with others. This tendency to have difficulty seeing other people's need per daughter has been life long. Pt presents with tendency to be irritable, at times explosive but not physically aggressive. She was started back in September on low dose of seroquel but no further medication adjustments have been made to manage these symptoms, which are disruptive but not life threatening nor at imminent risk of harm to self or others. As consequence of minimal intervention in the community, pt has had more frequent ED visits here and at [facility]. We discussed risks, benefits and alternative treatment options, pt agrees to start mood stabilizer for impulsive, explosive behaviors. We also discussed switching seroquel to risperidone. Pt is orientation has been intact all along. PLAN 01/20 schedule trazodone 50mg po qhs for sleep. 01/21 continue tx. depakote levels scheduled for tomorrow AM with ammonia levels. 01/22 trough depakote level 75, ammonia 41. continue tx. continue tx 01/24 continue tx. 01/25 continue tx. 01/26 continue tx. 01/27: continue current mgmt. 01/28: continue current mgmt. 01/29 continue tx. 01/30 continue tx. 01/31 continues tx-continue monitor bilat LE- doppler did not show DVT. 02/01: No change in medications, continue current plan of care. 02/02: Continue current plan. 02/03: Continue current plans and regimen 02/04 continue tx. 02/05 continue tx. 02/06 continue tx. 02/07 continue tx. 02/09: no changes 02/10 continue tx. 02/11 continue tx. 02/12 continue tx. 02/13 continue tx. 02/14 continue tx. awaiting placement. 02/15: Continue current treatment plan. Reason for continued inpatient stay Substantial Risk for: inability to function and rapid decompensation Time Spent With Patient Time: Total time managing care of this patient today ____ minutes.
[2023-02-15 11:20] LABS: Glucose, Whole Blood 240 mg/dL (60-115)
[2023-02-15] MEDS: Insulin Lispro 100 UNIT/ML 3 ML VIAL SUBCUT (11:53)
[2023-02-15 16:33] LABS: Glucose, Whole Blood 118 mg/dL (60-115)
[2023-02-15 18:00] VITALS: BP 142/65; PULSE 60; RESP 16; TEMP 36.2; O2SAT 96
[2023-02-15 19:49] LABS: Glucose, Whole Blood 227 mg/dL (60-115)
[2023-02-15] MEDS: Valsartan 80 MG TABLET PO (20:21)
[2023-02-15] MEDS: Donepezil HCl 10 MG TABLET PO (20:21)
[2023-02-15] MEDS: Insulin Glargine,Hum.rec.anlog 100 UNIT/ML 10 ML VIAL 47 UNIT SUBCUT (20:22)
[2023-02-15] MEDS: Gabapentin 600 MG TABLET 1200 MG PO (20:22)
[2023-02-15] MEDS: traZODone HCL 50 MG TABLET PO (20:22)
[2023-02-15] MEDS: Divalproex Sodium 500 MG TABLET.DR PO (20:22)
[2023-02-15] MEDS: Atorvastatin Calcium 20 MG TABLET PO (23:07)
[2023-02-16] MEDS: Levothyroxine Sodium 75 MCG TABLET PO (06:20)
[2023-02-16 06:35] LABS: Glucose, Whole Blood 72 mg/dL (60-115)
[2023-02-16 08:03] VITALS: BP 138/63; PULSE 62; RESP 18; TEMP 36.3; O2SAT 97
[2023-02-16] MEDS: Clopidogrel Bisulfate 75 MG TABLET PO (08:09)
[2023-02-16] MEDS: Escitalopram Oxalate 10 MG TABLET PO (08:09)
[2023-02-16] MEDS: Divalproex Sodium 250 MG TABLET.DR PO (08:09)
[2023-02-16] MEDS: Metoprolol Tartrate 25 MG TABLET PO (08:09)
[2023-02-16] MEDS: Memantine HCl 10 MG TABLET PO ×2 (08:09→20:29)
[2023-02-16] MEDS: Lidocaine 4 % Patch ADH..PATCH 1 PATCH TRANSDERMA (08:09)
--- NOTE | 2023-02-16 08:14 | HO.PSYCHPN ---
Subjective Subjective Date of Service: 02/16/23 Reason For Visit: Depression Interim History: Pt continues to present as well groomed, visible on the unit and social with select peers. Says her mood is OK. Appetite OK . Denies SI. No HI. No AVH. She attends assigned groups. No behavioral concerns. She continues to denies depression or anxiety. No SI/HI. No VH/AH. no signs of delusions. She takes medications as prescribed. She is awaiting placement Review of Systems Review of Systems nothing acute Yes all other systems are reviewed and are negative Mental Status Exam Mental Status Exam Narrative: Appearance: wearing street clothes, fair hygiene, in NAD Behavior: cooperative Psychomotor: no agitation noted Speech: clear, normal rate/rhythm/volume, spontaneous TP: linear TC: no overt delusional content noted or reported Mood: good Affect: congruent SI: none expressed HI: none expressed VH/AH: none expressed Delusions: none expressed Insight/judgment: fair x 2. Memory/cog: alert, oriented x 3. Patient Appearance: Appropriate Patient Orientation: Person and Situation Level of Consciousness: Awake and Appropriate Patient Behavior: Guarded and Passive Mood Description: Withdrawn Affect Description: Constricted Patient Cognition Impaired: Yes Ability to Follow Directions: Fair Speech Pattern: Clear Diagnostics Vital Signs (24Hr): Vital Signs - 24 hr 02/15/23 08:16 02/15/23 18:00 02/16/23 08:03 Temperature 97.1 F 97.2 F 97.3 F Pulse Rate 62 60 62 Respiratory Rate 18 16 18 Blood Pressure 109/70 142/65 H 138/63 Pulse Oximetry 97 96 97 Oxygen Delivery Method Room Air Room Air Room Air BMI result Body Mass Index 28.1 Labs 01/07/23 17:49 01/07/23 17:49 Labs: Laboratory Results - last 48 hr 02/14/23 02/14/23 02/14/23 11:34 16:08 19:46 POC Glucose 120 H 171 H 183 H 02/15/23 02/15/23 02/15/23 06:15 11:14 16:29 POC Glucose 71 240 H 118 H 02/15/23 02/16/23 19:46 06:22 POC Glucose 227 H 72 Imaging Radiology Impressions: ITS Impressions Venous Duplex 01/30/23 16:02 IMPRESSION: No DVT demonstrated in the bilateral lower extremity. Medications Medications Current Medications Acetaminophen (Acetaminophen 325 Mg Tablet) 650 mg PO Q6H PRN PRN Reason: Headache/Pain Mild Scale (1-3) Last Admin: 02/09/23 21:16 Dose: 650 mg Al Hydroxide/Mg Hydroxide (Magnesium Hydrox/Alum Hydrox 30 Ml Oral.Susp) 30 ml PO Q6H PRN PRN Reason: Heartburn/Nausea Last Admin: 02/10/23 22:17 Dose: 30 ml Atorvastatin Calcium (Atorvastatin Calcium 20 Mg Tablet) 20 mg PO BEDTIME [facility] Last Admin: 02/15/23 23:07 Dose: 20 mg Bisacodyl (Bisacodyl 10 Mg Supp.Rect) 10 mg SD DAILY PRN PRN Reason: Constipation Clopidogrel Bisulfate (Clopidogrel Bisulfate 75 Mg Tablet) 75 mg PO DAILY [facility] Last Admin: 02/16/23 08:09 Dose: 75 mg Divalproex Sodium (Divalproex Sodium 500 Mg Tablet.) 500 mg PO BEDTIME [facility] Last Admin: 02/15/23 20:22 Dose: 500 mg Divalproex Sodium (Divalproex Sodium 250 Mg Tablet.) 250 mg PO DAILY [facility] Last Admin: 02/16/23 08:09 Dose: 250 mg Donepezil HCl (Donepezil Hcl 10 Mg Tablet) 10 mg PO BEDTIME [facility] Last Admin: 02/15/23 20:21 Dose: 10 mg Escitalopram Oxalate (Escitalopram Oxalate 10 Mg Tablet) 10 mg PO DAILY [facility] Last Admin: 02/16/23 08:09 Dose: 10 mg Gabapentin (Gabapentin 600 Mg Tablet) 1,200 mg PO BEDTIME [facility] Last Admin: 02/15/23 20:22 Dose: 1,200 mg Glucagon (Glucagon Hcl 1 Mg Vial) 1 mg SUBCUT Q20M PRN PRN Reason: BG <70 AND UNRESPONSIVE Glucose (Glucose Gel 15 Gm Gel..Gram.) 15 gm PO Q15M PRN PRN Reason: BG <70 AND RESPONSIVE Last Admin: 01/30/23 03:12 Dose: 15 gm Insulin Glargine (Insulin Glargine,Hum.Rec.Anlog 100 Unit/Ml 10 Ml Vial) 47 unit SUBCUT BEDTIME [facility] Last Admin: 02/15/23 20:22 Dose: 47 unit Insulin Human Lispro (Insulin Lispro 100 Unit/Ml 3 Ml Vial) [facility] Protocol Last Admin: 02/16/23 08:06 Dose: Not Given Levothyroxine Sodium (Levothyroxine Sodium 75 Mcg Tablet) 75 mcg PO DAILY@0630 [facility] Last Admin: 02/16/23 06:20 Dose: 75 mcg Lidocaine (Lidocaine 4 % Patch Adh..Patch) 1 patch TRANSDERMA DAILY [facility]; Protocol Last Admin: 02/16/23 08:09 Dose: 1 patch Loperamide HCl (Loperamide Hcl 2 Mg Capsule) 2 mg PO Q6H PRN PRN Reason: diarrhea Last Admin: 02/10/23 22:16 Dose: 2 mg Magnesium Hydroxide (Milk Of Magnesia 30 Ml Oral.Susp) 30 ml PO DAILY PRN PRN Reason: Constipation Magnesium Hydroxide (Milk Of Magnesia 30 Ml Oral.Susp) 30 ml PO DAILY PRN PRN Reason: Constipation Memantine (Memantine Hcl 10 Mg Tablet) 10 mg PO BID [facility] Last Admin: 02/16/23 08:09 Dose: 10 mg Metoprolol Tartrate (Metoprolol Tartrate 25 Mg Tablet) 25 mg PO DAILY [facility]; Protocol Last Admin: 02/16/23 08:09 Dose: 25 mg Quetiapine Fumarate (Quetiapine Fumarate 50 Mg Tablet) 50 mg PO Q6H PRN PRN Reason: agitation Last Admin: 01/08/23 23:46 Dose: 50 mg Sodium Biphosphate/Sodium Phosphate (Sodium Phosphate,[place]-Dibasic 133 Ml Enema) 133 ml [place] DAILY PRN PRN Reason: Constipation Trazodone HCl (Trazodone Hcl 50 Mg Tablet) 50 mg PO BEDTIME PRN PRN Reason: Insomnia Last Admin: 02/15/23 20:22 Dose: 50 mg Valsartan (Valsartan 80 Mg Tablet) 80 mg PO BEDTIME [facility]; Protocol Last Admin: 02/15/23 20:21 Dose: 80 mg Allergies Allergies Allergy/AdvReac Type Severity Reaction Status Date / Time aspirin [ASPIRIN] Allergy Unknown UNKNOWN Verified 01/01/23 09:43 Assessment & Plan Assessment & Plan (1) Major neurocognitive disorder: Status: Acute Code(s): F03.90 - Unspecified dementia, unspecified severity, without behavioral disturbance, psychotic disturbance, mood disturbance, and anxiety (2) Mood disorder: Status: Acute Code(s): F39 - Unspecified mood [affective] disorder Plan Ms. Landis is a 67 year-old woman with hx of Mood Disorder (untreated for most of her life) and neurocognitive disorder who was brought via EMS from [facility] due to increase verbal aggression towards roommate and one of their staff. Pt is known to this teletypewriter operator through previous assessment for similar presentation. Pt presents as calmer, she does admit to being verbally abusive, although denies any intent to harm self or others. She does lack the insight into how her behaviors affect others and her relationships with others. This tendency to have difficulty seeing other people's need per daughter has been life long. Pt presents with tendency to be irritable, at times explosive but not physically aggressive. She was started back in September on low dose of seroquel but no further medication adjustments have been made to manage these symptoms, which are disruptive but not life threatening nor at imminent risk of harm to self or others. As consequence of minimal intervention in the community, pt has had more frequent ED visits here and at [facility]. We discussed risks, benefits and alternative treatment options, pt agrees to start mood stabilizer for impulsive, explosive behaviors. We also discussed switching seroquel to risperidone. Pt is orientation has been intact all along. PLAN 01/20 schedule trazodone 50mg po qhs for sleep. 01/21 continue tx. depakote levels scheduled for tomorrow AM with ammonia levels. 01/22 trough depakote level 75, ammonia 41. continue tx. continue tx 01/24 continue tx. 01/25 continue tx. 01/26 continue tx. 01/27: continue current mgmt. 01/28: continue current mgmt. 01/29 continue tx. 01/30 continue tx. 01/31 continues tx-continue monitor bilat LE- doppler did not show DVT. 02/01: No change in medications, continue current plan of care. 02/02: Continue current plan. 02/03: Continue current plans and regimen 02/04 continue tx. 02/05 continue tx. 02/06 continue tx. 02/07 continue tx. 02/09: no changes 02/10 continue tx. 02/11 continue tx. 02/12 continue tx. 02/13 continue tx. 02/14 continue tx. awaiting placement. 02/15: Continue current treatment plan. 02/16: Continue current plan. Reason for continued inpatient stay Substantial Risk for: inability to function, rapid decompensation and med/psych decompensation Time Spent With Patient Time: Total time managing care of this patient today ____ minutes.
[2023-02-16 11:35] LABS: Glucose, Whole Blood 288 mg/dL (60-115)
[2023-02-16] MEDS: Insulin Lispro 100 UNIT/ML 3 ML VIAL SUBCUT ×2 (12:16→17:01)
--- NOTE | 2023-02-16 12:35 | PC.NURSE ---
POC prior to lunch 288 however Shae only consumed 25% of meal and a juice. Alternative meals/options offered but she declined. Dr. Langley notified and ordered to give 1/2 dose (4 units) of what sliding scale calls for. 4 units Lispro insulin administered as ordered.
[2023-02-16] MEDS: Acetaminophen 325 MG TABLET 650 MG PO (16:22)
[2023-02-16 16:29] LABS: Glucose, Whole Blood 224 mg/dL (60-115)
[2023-02-16 19:50] VITALS: BP 150/67; PULSE 60; RESP 18; TEMP 36.6; O2SAT 94
[2023-02-16 19:53] LABS: Glucose, Whole Blood 155 mg/dL (60-115)
[2023-02-16] MEDS: Gabapentin 600 MG TABLET 1200 MG PO (20:25)
[2023-02-16] MEDS: Insulin Glargine,Hum.rec.anlog 100 UNIT/ML 10 ML VIAL 47 UNIT SUBCUT (20:28)
[2023-02-16] MEDS: Donepezil HCl 10 MG TABLET PO (20:29)
[2023-02-16] MEDS: Atorvastatin Calcium 20 MG TABLET PO (20:30)
[2023-02-16] MEDS: Divalproex Sodium 500 MG TABLET.DR PO (20:30)
[2023-02-16] MEDS: Valsartan 80 MG TABLET PO (21:07)
[2023-02-17] MEDS: Levothyroxine Sodium 75 MCG TABLET PO (06:27)
[2023-02-17 06:55] LABS: Glucose, Whole Blood 77 mg/dL (60-115)
[2023-02-17 08:00] VITALS: BP 141/64; PULSE 63; RESP 18; TEMP 36.5; O2SAT 96
[2023-02-17] MEDS: Memantine HCl 10 MG TABLET PO ×2 (09:20→20:13)
[2023-02-17] MEDS: Divalproex Sodium 250 MG TABLET.DR PO (09:20)
[2023-02-17] MEDS: Metoprolol Tartrate 25 MG TABLET PO (09:20)
[2023-02-17] MEDS: Escitalopram Oxalate 10 MG TABLET PO (09:20)
[2023-02-17] MEDS: Clopidogrel Bisulfate 75 MG TABLET PO (09:20)
--- NOTE | 2023-02-17 09:21 | P.PNPSI_ITS ---
Subjective Subjective Date of Service: 02/17/23 Reason For Visit: Depression Subjective Notes: Conditional Voluntary Interim History: Pt slept through the night. No behavioral concerns. Pt reports she is doing well. No SI/HI. no signs of psychosis or delusions. Pt takes medications as prescribed. No side effects. Review of Systems Review of Systems nothing acute Yes all other systems are reviewed and are negative Mental Status Exam Mental Status Exam Narrative: Appearance: wearing street clothes, fair hygiene, in NAD Behavior: cooperative Psychomotor: no agitation noted Speech: clear, normal rate/rhythm/volume, spontaneous TP: linear TC: no overt delusional content noted or reported Mood: good Affect: congruent SI: none expressed HI: none expressed VH/AH: none expressed Delusions: none expressed Insight/judgment: fair x 2. Memory/cog: alert, oriented x 3. Diagnostics Vital Signs (24Hr): Vital Signs - 24 hr 02/16/23 19:50 Temperature 97.8 F Pulse Rate 60 Respiratory Rate 18 Blood Pressure 150/67 H Pulse Oximetry 94 Oxygen Delivery Method Room Air BMI result Body Mass Index 28.1 Labs 01/07/23 17:49 01/07/23 17:49 Labs: Laboratory Results - last 48 hr 02/15/23 02/15/23 02/15/23 11:14 16:29 19:46 POC Glucose 240 H 118 H 227 H 02/16/23 02/16/23 02/16/23 06:22 11:31 16:24 POC Glucose 72 288 H 224 H 02/16/23 02/17/23 19:41 06:49 POC Glucose 155 H 77 Imaging Radiology Impressions: ITS Impressions Venous Duplex 01/30/23 16:02 IMPRESSION: No DVT demonstrated in the bilateral lower extremity. Medications Medications Current Medications Acetaminophen (Acetaminophen 325 Mg Tablet) 650 mg PO Q6H PRN PRN Reason: Headache/Pain Mild Scale (1-3) Last Admin: 02/16/23 16:22 Dose: 650 mg Al Hydroxide/Mg Hydroxide (Magnesium Hydrox/Alum Hydrox 30 Ml Oral.Susp) 30 ml PO Q6H PRN PRN Reason: Heartburn/Nausea Last Admin: 02/10/23 22:17 Dose: 30 ml Atorvastatin Calcium (Atorvastatin Calcium 20 Mg Tablet) 20 mg PO BEDTIME [facility] Last Admin: 02/16/23 20:30 Dose: 20 mg Bisacodyl (Bisacodyl 10 Mg Supp.Rect) 10 mg [place] DAILY PRN PRN Reason: Constipation Clopidogrel Bisulfate (Clopidogrel Bisulfate 75 Mg Tablet) 75 mg PO DAILY [facility] Last Admin: 02/17/23 09:20 Dose: 75 mg Divalproex Sodium (Divalproex Sodium 500 Mg Tablet.Dr) 500 mg PO BEDTIME [facility] Last Admin: 02/16/23 20:30 Dose: 500 mg Divalproex Sodium (Divalproex Sodium 250 Mg Tablet.Dr) 250 mg PO DAILY [facility] Last Admin: 02/17/23 09:20 Dose: 250 mg Donepezil HCl (Donepezil Hcl 10 Mg Tablet) 10 mg PO BEDTIME [facility] Last Admin: 02/16/23 20:29 Dose: 10 mg Escitalopram Oxalate (Escitalopram Oxalate 10 Mg Tablet) 10 mg PO DAILY [facility] Last Admin: 02/17/23 09:20 Dose: 10 mg Gabapentin (Gabapentin 600 Mg Tablet) 1,200 mg PO BEDTIME [facility] Last Admin: 02/16/23 20:25 Dose: 1,200 mg Glucagon (Glucagon Hcl 1 Mg Vial) 1 mg SUBCUT Q20M PRN PRN Reason: BG <70 AND UNRESPONSIVE Glucose (Glucose Gel 15 Gm Gel..Gram.) 15 gm PO Q15M PRN PRN Reason: BG <70 AND RESPONSIVE Last Admin: 01/30/23 03:12 Dose: 15 gm Insulin Glargine (Insulin Glargine,Hum.Rec.Anlog 100 Unit/Ml 10 Ml Vial) 47 unit SUBCUT BEDTIME [facility] Last Admin: 02/16/23 20:28 Dose: 47 unit Insulin Human Lispro (Insulin Lispro 100 Unit/Ml 3 Ml Vial) 0 unit SUBCUT TIDAC [facility]; Protocol Last Admin: 02/16/23 17:01 Dose: 6 unit Levothyroxine Sodium (Levothyroxine Sodium 75 Mcg Tablet) 75 mcg PO DAILY@0630 [facility] Last Admin: 02/17/23 06:27 Dose: 75 mcg Lidocaine (Lidocaine 4 % Patch Adh..Patch) 1 patch TRANSDERMA DAILY [facility]; Protocol Last Admin: 02/16/23 08:09 Dose: 1 patch Loperamide HCl (Loperamide Hcl 2 Mg Capsule) 2 mg PO Q6H PRN PRN Reason: diarrhea Last Admin: 02/10/23 22:16 Dose: 2 mg Magnesium Hydroxide (Milk Of Magnesia 30 Ml Oral.Susp) 30 ml PO DAILY PRN PRN Reason: Constipation Magnesium Hydroxide (Milk Of Magnesia 30 Ml Oral.Susp) 30 ml PO DAILY PRN PRN Reason: Constipation Memantine (Memantine Hcl 10 Mg Tablet) 10 mg PO BID [facility] Last Admin: 02/17/23 09:20 Dose: 10 mg Metoprolol Tartrate (Metoprolol Tartrate 25 Mg Tablet) 25 mg PO DAILY [facility]; Protocol Last Admin: 02/17/23 09:20 Dose: 25 mg Quetiapine Fumarate (Quetiapine Fumarate 50 Mg Tablet) 50 mg PO Q6H PRN PRN Reason: agitation Last Admin: 01/08/23 23:46 Dose: 50 mg Sodium Biphosphate/Sodium Phosphate (Sodium Phosphate,[place]-Dibasic 133 Ml Enema) 133 ml [place] DAILY PRN PRN Reason: Constipation Trazodone HCl (Trazodone Hcl 50 Mg Tablet) 50 mg PO BEDTIME PRN PRN Reason: Insomnia Last Admin: 02/15/23 20:22 Dose: 50 mg Valsartan (Valsartan 80 Mg Tablet) 80 mg PO BEDTIME [facility]; Protocol Last Admin: 02/16/23 21:07 Dose: 80 mg Allergies Allergies Allergy/AdvReac Type Severity Reaction Status Date / Time aspirin [ASPIRIN] Allergy Unknown UNKNOWN Verified 01/01/23 09:43 Assessment & Plan Assessment & Plan (1) Major neurocognitive disorder: Status: Acute Code(s): F03.90 - Unspecified dementia, unspecified severity, without behavioral disturbance, psychotic disturbance, mood disturbance, and anxiety (2) Mood disorder: Status: Acute Code(s): F39 - Unspecified mood [affective] disorder Plan Ms. Landis is a 67 year-old woman with hx of Mood Disorder (untreated for most of her life) and neurocognitive disorder who was brought via EMS from [facility] due to increase verbal aggression towards roommate and one of their staff. Pt is known to this administrative underwriter through previous assessment for similar presentation. Pt presents as calmer, she does admit to being verbally abusive, although denies any intent to harm self or others. She does lack the insight into how her behaviors affect others and her relationships with others. This tendency to have difficulty seeing other people's need per daughter has been life long. Pt presents with tendency to be irritable, at times explosive but not physically aggressive. She was started back in September on low dose of seroquel but no further medication adjustments have been made to manage these symptoms, which are disruptive but not life threatening nor at imminent risk of harm to self or others. As consequence of minimal intervention in the community, pt has had more frequent ED visits here and at [facility]. We discussed risks, benefits and alternative treatment options, pt agrees to start mood stabilizer for impulsive, explosive behaviors. We also discussed switching seroquel to risperidone. Pt is orientation has been intact all along. PLAN 01/20 schedule trazodone 50mg po qhs for sleep. 01/21 continue tx. depakote levels scheduled for tomorrow AM with ammonia levels. 01/22 trough depakote level 75, ammonia 41. continue tx. continue tx 01/24 continue tx. 01/25 continue tx. 01/26 continue tx. 01/27: continue current mgmt. 01/28: continue current mgmt. 01/29 continue tx. 01/30 continue tx. 01/31 continues tx-continue monitor bilat LE- doppler did not show DVT. 02/01: No change in medications, continue current plan of care. 02/02: Continue current plan. 02/03: Continue current plans and regimen 02/04 continue tx. 02/05 continue tx. 02/06 continue tx. 02/07 continue tx. 02/09: no changes 02/10 continue tx. 02/11 continue tx. 02/12 continue tx. 02/13 continue tx. 02/14 continue tx. awaiting placement. 02/15: Continue current treatment plan. 02/16: Continue current plan. 02/17 continue tx. Reason for continued inpatient stay Substantial Risk for: inability to function Time Spent With Patient Time: Total time managing care of this patient today ____ minutes.
[2023-02-17] MEDS: Lidocaine 4 % Patch ADH..PATCH 1 PATCH TRANSDERMA (09:26)
[2023-02-17 11:42] LABS: Glucose, Whole Blood 183 mg/dL (60-115)
[2023-02-17] MEDS: Insulin Lispro 100 UNIT/ML 3 ML VIAL SUBCUT ×2 (11:48→16:47)
[2023-02-17 16:42] LABS: Glucose, Whole Blood 216 mg/dL (60-115)
[2023-02-17 19:45] VITALS: BP 164/70; PULSE 84; RESP 16; TEMP 36.7; O2SAT 96
[2023-02-17 19:55] LABS: Glucose, Whole Blood 209 mg/dL (60-115)
[2023-02-17] MEDS: Insulin Glargine,Hum.rec.anlog 100 UNIT/ML 10 ML VIAL 47 UNIT SUBCUT (20:12)
[2023-02-17] MEDS: Gabapentin 600 MG TABLET 1200 MG PO (20:13)
[2023-02-17] MEDS: Divalproex Sodium 500 MG TABLET.DR PO (20:13)
[2023-02-17] MEDS: Donepezil HCl 10 MG TABLET PO (20:13)
[2023-02-17] MEDS: Atorvastatin Calcium 20 MG TABLET PO (20:13)
[2023-02-17] MEDS: Valsartan 80 MG TABLET PO (20:13)
[2023-02-18] MEDS: traZODone HCL 50 MG TABLET PO ×2 (02:23→20:12)
[2023-02-18] MEDS: Levothyroxine Sodium 75 MCG TABLET PO (06:31)
[2023-02-18 06:45] LABS: Glucose, Whole Blood 76 mg/dL (60-115)
[2023-02-18 07:50] VITALS: BP 125/58; PULSE 58; RESP 20; TEMP 36.2; O2SAT 97
[2023-02-18] MEDS: Lidocaine 4 % Patch ADH..PATCH 1 PATCH TRANSDERMA (08:31)
[2023-02-18] MEDS: Metoprolol Tartrate 25 MG TABLET PO (08:31)
[2023-02-18] MEDS: Memantine HCl 10 MG TABLET PO ×2 (08:31→20:12)
[2023-02-18] MEDS: Divalproex Sodium 250 MG TABLET.DR PO (08:31)
[2023-02-18] MEDS: Clopidogrel Bisulfate 75 MG TABLET PO (08:31)
[2023-02-18] MEDS: Escitalopram Oxalate 10 MG TABLET PO (08:31)
[2023-02-18 11:36] LABS: Glucose, Whole Blood 163 mg/dL (60-115)
[2023-02-18] MEDS: Insulin Lispro 100 UNIT/ML 3 ML VIAL SUBCUT (11:43)
[2023-02-18 16:35] LABS: Glucose, Whole Blood 124 mg/dL (60-115)
[2023-02-18 20:05] VITALS: BP 141/67; PULSE 58; RESP 18; TEMP 36.1; O2SAT 98
[2023-02-18] MEDS: Valsartan 80 MG TABLET PO (20:11)
[2023-02-18] MEDS: Atorvastatin Calcium 20 MG TABLET PO (20:11)
[2023-02-18] MEDS: Divalproex Sodium 500 MG TABLET.DR PO (20:11)
[2023-02-18] MEDS: Insulin Glargine,Hum.rec.anlog 100 UNIT/ML 10 ML VIAL 47 UNIT SUBCUT (20:11)
[2023-02-18] MEDS: Donepezil HCl 10 MG TABLET PO (20:12)
[2023-02-18] MEDS: Gabapentin 600 MG TABLET 1200 MG PO (20:12)
[2023-02-18 20:23] LABS: Glucose, Whole Blood 231 mg/dL (60-115)
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
[2023-02-19] MEDS: Levothyroxine Sodium 75 MCG TABLET PO (06:24)
[2023-02-19 06:33] LABS: Glucose, Whole Blood 123 mg/dL (60-115)
[2023-02-19 08:47] VITALS: BP 131/59; PULSE 59; RESP 16; TEMP 35.7; O2SAT 97
[2023-02-19] MEDS: Escitalopram Oxalate 10 MG TABLET PO (08:49)
[2023-02-19] MEDS: Lidocaine 4 % Patch ADH..PATCH 1 PATCH TRANSDERMA (08:50)
[2023-02-19] MEDS: Clopidogrel Bisulfate 75 MG TABLET PO (08:50)
[2023-02-19] MEDS: Divalproex Sodium 250 MG TABLET.DR PO (08:50)
[2023-02-19] MEDS: Memantine HCl 10 MG TABLET PO ×2 (08:50→20:48)
[2023-02-19] MEDS: Loperamide HCl 2 MG CAPSULE PO (11:09)
[2023-02-19 11:39] LABS: Glucose, Whole Blood 178 mg/dL (60-115)
[2023-02-19] MEDS: Insulin Lispro 100 UNIT/ML 3 ML VIAL SUBCUT ×2 (11:48→16:55)
[2023-02-19 16:13] LABS: Glucose, Whole Blood 211 mg/dL (60-115)
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
[2023-02-19 18:00] VITALS: BP 120/63; PULSE 65; RESP 16; TEMP 36.1; O2SAT 95
[2023-02-19 20:03] LABS: Glucose, Whole Blood 241 mg/dL (60-115)
[2023-02-19] MEDS: Insulin Glargine,Hum.rec.anlog 100 UNIT/ML 10 ML VIAL 47 UNIT SUBCUT (20:47)
[2023-02-19] MEDS: traZODone HCL 50 MG TABLET PO (20:48)
[2023-02-19] MEDS: Gabapentin 600 MG TABLET 1200 MG PO (20:48)
[2023-02-19] MEDS: Divalproex Sodium 500 MG TABLET.DR PO (20:48)
[2023-02-19] MEDS: Valsartan 80 MG TABLET PO (20:48)
[2023-02-19] MEDS: Donepezil HCl 10 MG TABLET PO (20:49)
[2023-02-20] MEDS: Atorvastatin Calcium 20 MG TABLET PO ×2 (00:32→21:09)
[2023-02-20 04:40] LABS: Glucose, Whole Blood 78 mg/dL (60-115)
[2023-02-20] MEDS: Levothyroxine Sodium 75 MCG TABLET PO (05:50)
[2023-02-20 07:00] VITALS: BMI 28.5
[2023-02-20 07:35] LABS: Glucose, Whole Blood 156 mg/dL (60-115)
[2023-02-20 08:08] VITALS: BP 117/56; PULSE 68; RESP 16; TEMP 36; O2SAT 94
[2023-02-20] MEDS: Clopidogrel Bisulfate 75 MG TABLET PO (08:11)
[2023-02-20] MEDS: Escitalopram Oxalate 10 MG TABLET PO (08:11)
[2023-02-20] MEDS: Divalproex Sodium 250 MG TABLET.DR PO (08:11)
[2023-02-20] MEDS: Memantine HCl 10 MG TABLET PO ×2 (08:11→21:09)
[2023-02-20] MEDS: Lidocaine 4 % Patch ADH..PATCH 1 PATCH TRANSDERMA (08:12)
[2023-02-20] MEDS: Insulin Lispro 100 UNIT/ML 3 ML VIAL SUBCUT ×3 (08:14→16:35)
[2023-02-20] MEDS: Metoprolol Tartrate 25 MG TABLET PO (08:52)
--- NOTE | 2023-02-20 10:28 | PC.NURSE ---
Patients BP this morning read 117/56 with a HR of 68. Patient was asymptomatic, ASSISTANT TO THE [facility]AN Tanya Perez notified and her BP medication was given.
[2023-02-20] MEDS: Acetaminophen 325 MG TABLET 650 MG PO (11:15)
[2023-02-20 11:30] LABS: Glucose, Whole Blood 232 mg/dL (60-115)
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
[2023-02-20 16:20] LABS: Glucose, Whole Blood 206 mg/dL (60-115)
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
[2023-02-20 18:00] VITALS: BP 155/76; PULSE 64; RESP 18; TEMP 36.3; O2SAT 95
[2023-02-20 20:31] LABS: Glucose, Whole Blood 317 mg/dL (60-115)
[2023-02-20] MEDS: Valsartan 80 MG TABLET PO (21:09)
[2023-02-20] MEDS: Donepezil HCl 10 MG TABLET PO (21:09)
[2023-02-20] MEDS: Insulin Glargine,Hum.rec.anlog 100 UNIT/ML 10 ML VIAL 47 UNIT SUBCUT (21:09)
[2023-02-20] MEDS: Gabapentin 600 MG TABLET 1200 MG PO (21:09)
[2023-02-20] MEDS: traZODone HCL 50 MG TABLET PO (21:09)
[2023-02-20] MEDS: Divalproex Sodium 500 MG TABLET.DR PO (21:09)
[2023-02-21] MEDS: Levothyroxine Sodium 75 MCG TABLET PO (06:38)
[2023-02-21 06:47] LABS: Glucose, Whole Blood 155 mg/dL (60-115)
[2023-02-21 08:00] VITALS: BP 111/55; PULSE 61; RESP 18; TEMP 36; O2SAT 94
[2023-02-21] MEDS: Metoprolol Tartrate 25 MG TABLET PO (08:03)
[2023-02-21] MEDS: Clopidogrel Bisulfate 75 MG TABLET PO (08:03)
[2023-02-21] MEDS: Escitalopram Oxalate 10 MG TABLET PO (08:04)
[2023-02-21] MEDS: Memantine HCl 10 MG TABLET PO ×2 (08:04→20:46)
[2023-02-21] MEDS: Divalproex Sodium 250 MG TABLET.DR PO (08:04)
[2023-02-21] MEDS: Insulin Lispro 100 UNIT/ML 3 ML VIAL SUBCUT ×3 (08:06→16:45)
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
--- NOTE | 2023-02-21 08:22 | HO.PSYCHPN ---
Subjective Subjective Date of Service: 02/21/23 Reason For Visit: Depression Subjective Notes: Conditional Voluntary Interim History: no significant change. Pt denies any physical concerns, including pain but does ambulate with walker. Pt continues to sleep through the night. No SI/HI. no signs of psychosis. She pleasant on approach. She smiles at times. enjoys arts and crafts. Pt attends assigned groups. No behavioral concerns. Review of Systems Review of Systems nothing acute Yes all other systems are reviewed and are negative Mental Status Exam Mental Status Exam Narrative: Appearance: wearing street clothes, fair hygiene, in NAD Behavior: cooperative Psychomotor: no agitation noted Speech: clear, normal rate/rhythm/volume, spontaneous TP: linear TC: no overt delusional content noted or reported Mood: good Affect: congruent SI: none expressed HI: none expressed VH/AH: none expressed Delusions: none expressed Insight/judgment: fair x 2. Memory/cog: alert, oriented x 3. Diagnostics Vital Signs (24Hr): Vital Signs - 24 hr 02/20/23 18:00 Temperature 97.4 F Pulse Rate 64 Respiratory Rate 18 Blood Pressure 155/76 H Pulse Oximetry 95 Oxygen Delivery Method Room Air BMI result Body Mass Index 28.5 Labs 01/07/23 17:49 01/07/23 17:49 Labs: Laboratory Results - last 48 hr 02/19/23 02/19/23 02/19/23 11:34 16:04 19:50 POC Glucose 178 H 211 H 241 H 02/20/23 02/20/23 02/20/23 04:34 07:29 11:21 POC Glucose 78 156 H 232 H 02/20/23 02/20/23 02/21/23 16:16 20:22 06:39 POC Glucose 206 H 317 H 155 H Imaging Radiology Impressions: ITS Impressions Venous Duplex 01/30/23 16:02 IMPRESSION: No DVT demonstrated in the bilateral lower extremity. Medications Medications Current Medications Acetaminophen (Acetaminophen 325 Mg Tablet) 650 mg PO Q6H PRN PRN Reason: Headache/Pain Mild Scale (1-3) Last Admin: 02/20/23 11:15 Dose: 650 mg Al Hydroxide/Mg Hydroxide (Magnesium Hydrox/Alum Hydrox 30 Ml Oral.Susp) 30 ml PO Q6H PRN PRN Reason: Heartburn/Nausea Last Admin: 02/10/23 22:17 Dose: 30 ml Atorvastatin Calcium (Atorvastatin Calcium 20 Mg Tablet) 20 mg PO BEDTIME [facility] Last Admin: 02/20/23 21:09 Dose: 20 mg Bisacodyl (Bisacodyl 10 Mg Supp.Rect) 10 mg [place] DAILY PRN PRN Reason: Constipation Clopidogrel Bisulfate (Clopidogrel Bisulfate 75 Mg Tablet) 75 mg PO DAILY [facility] Last Admin: 02/21/23 08:03 Dose: 75 mg Divalproex Sodium (Divalproex Sodium 500 Mg Tablet.) 500 mg PO BEDTIME [facility] Last Admin: 02/20/23 21:09 Dose: 500 mg Divalproex Sodium (Divalproex Sodium 250 Mg Tablet.) 250 mg PO DAILY [facility] Last Admin: 02/21/23 08:04 Dose: 250 mg Donepezil HCl (Donepezil Hcl 10 Mg Tablet) 10 mg PO BEDTIME [facility] Last Admin: 02/20/23 21:09 Dose: 10 mg Escitalopram Oxalate (Escitalopram Oxalate 10 Mg Tablet) 10 mg PO DAILY [facility] Last Admin: 02/21/23 08:04 Dose: 10 mg Gabapentin (Gabapentin 600 Mg Tablet) 1,200 mg PO BEDTIME [facility] Last Admin: 02/20/23 21:09 Dose: 1,200 mg Glucagon (Glucagon Hcl 1 Mg Vial) 1 mg SUBCUT Q20M PRN PRN Reason: BG <70 AND UNRESPONSIVE Glucose (Glucose Gel 15 Gm Gel..Gram.) 15 gm PO Q15M PRN PRN Reason: BG <70 AND RESPONSIVE Last Admin: 01/30/23 03:12 Dose: 15 gm Insulin Glargine (Insulin Glargine,Hum.Rec.Anlog 100 Unit/Ml 10 Ml Vial) 47 unit SUBCUT BEDTIME [facility] Last Admin: 02/20/23 21:09 Dose: 47 unit Insulin Human Lispro (Insulin Lispro 100 Unit/Ml 3 Ml Vial) 0 unit SUBCUT TIDAC [facility]; Protocol Last Admin: 02/21/23 08:06 Dose: 4 unit Levothyroxine Sodium (Levothyroxine Sodium 75 Mcg Tablet) 75 mcg PO DAILY@0630 [facility] Last Admin: 02/21/23 06:38 Dose: 75 mcg Lidocaine (Lidocaine 4 % Patch Adh..Patch) 1 patch TRANSDERMA DAILY [facility]; Protocol Last Admin: 02/21/23 08:07 Dose: Not Given Loperamide HCl (Loperamide Hcl 2 Mg Capsule) 2 mg PO Q6H PRN PRN Reason: diarrhea Last Admin: 02/19/23 11:09 Dose: 2 mg Magnesium Hydroxide (Milk Of Magnesia 30 Ml Oral.Susp) 30 ml PO DAILY PRN PRN Reason: Constipation Magnesium Hydroxide (Milk Of Magnesia 30 Ml Oral.Susp) 30 ml PO DAILY PRN PRN Reason: Constipation Memantine (Memantine Hcl 10 Mg Tablet) 10 mg PO BID JODEE Last Admin: 02/21/23 08:04 Dose: 10 mg Metoprolol Tartrate (Metoprolol Tartrate 25 Mg Tablet) 25 mg PO DAILY [facility]; Protocol Last Admin: 02/21/23 08:03 Dose: 25 mg Quetiapine Fumarate (Quetiapine Fumarate 50 Mg Tablet) 50 mg PO Q6H PRN PRN Reason: agitation Last Admin: 01/08/23 23:46 Dose: 50 mg Sodium Biphosphate/Sodium Phosphate (Sodium Phosphate,[place]-Dibasic 133 Ml Enema) 133 ml [place] DAILY PRN PRN Reason: Constipation Trazodone HCl (Trazodone Hcl 50 Mg Tablet) 50 mg PO BEDTIME PRN PRN Reason: Insomnia Last Admin: 02/20/23 21:09 Dose: 50 mg Valsartan (Valsartan 80 Mg Tablet) 80 mg PO BEDTIME [facility]E; Protocol Last Admin: 02/20/23 21:09 Dose: 80 mg Allergies Allergies Allergy/AdvReac Type Severity Reaction Status Date / Time aspirin [ASPIRIN] Allergy Unknown UNKNOWN Verified 01/01/23 09:43 Assessment & Plan Assessment & Plan (1) Major neurocognitive disorder: Status: Acute Code(s): F03.90 - Unspecified dementia, unspecified severity, without behavioral disturbance, psychotic disturbance, mood disturbance, and anxiety (2) Mood disorder: Status: Acute Code(s): F39 - Unspecified mood [affective] disorder Plan Ms. Landis is a 67 year-old woman with hx of Mood Disorder (untreated for most of her life) and neurocognitive disorder who was brought via EMS from [facility] due to increase verbal aggression towards roommate and one of their staff. Pt is known to this parts data writer through previous assessment for similar presentation. Pt presents as calmer, she does admit to being verbally abusive, although denies any intent to harm self or others. She does lack the insight into how her behaviors affect others and her relationships with others. This tendency to have difficulty seeing other people's need per daughter has been life long. Pt presents with tendency to be irritable, at times explosive but not physically aggressive. She was started back in September on low dose of seroquel but no further medication adjustments have been made to manage these symptoms, which are disruptive but not life threatening nor at imminent risk of harm to self or others. As consequence of minimal intervention in the community, pt has had more frequent ED visits here and at [facility]. We discussed risks, benefits and alternative treatment options, pt agrees to start mood stabilizer for impulsive, explosive behaviors. We also discussed switching seroquel to risperidone. Pt is orientation has been intact all along. PLAN 01/20 schedule trazodone 50mg po qhs for sleep. 01/21 continue tx. depakote levels scheduled for tomorrow AM with ammonia levels. 01/22 trough depakote level 75, ammonia 41. continue tx. continue tx 01/24 continue tx. 01/25 continue tx. 01/26 continue tx. 01/27: continue current mgmt. 01/28: continue current mgmt. 01/29 continue tx. 01/30 continue tx. 01/31 continues tx-continue monitor bilat LE- doppler did not show DVT. 02/01: No change in medications, continue current plan of care. 02/02: Continue current plan. 02/03: Continue current plans and regimen 02/04 continue tx. 02/05 continue tx. 02/06 continue tx. 02/07 continue tx. 02/09: no changes 02/10 continue tx. 02/11 continue tx. 02/12 continue tx. 02/13 continue tx. 02/14 continue tx. awaiting placement. 02/15: Continue current treatment plan. 02/16: Continue current plan. 02/17 continue tx. 02/18 continue tx. 02/19 continue tx. 02/20 continue tx. 02/21 continue tx. Reason for continued inpatient stay Substantial Risk for: inability to function Time Spent With Patient Time: Total time managing care of this patient today ____ minutes.
[2023-02-21 11:45] LABS: Glucose, Whole Blood 227 mg/dL (60-115)
[2023-02-21 16:35] LABS: Glucose, Whole Blood 216 mg/dL (60-115)
[2023-02-21 18:00] VITALS: BP 145/65; PULSE 62; RESP 18; TEMP 36.2; O2SAT 96
[2023-02-21 19:58] LABS: Glucose, Whole Blood 213 mg/dL (60-115)
[2023-02-21] MEDS: Donepezil HCl 10 MG TABLET PO (20:45)
[2023-02-21] MEDS: Atorvastatin Calcium 20 MG TABLET PO (20:46)
[2023-02-21] MEDS: Valsartan 80 MG TABLET PO (20:46)
[2023-02-21] MEDS: Gabapentin 600 MG TABLET 1200 MG PO (20:46)
[2023-02-21] MEDS: Divalproex Sodium 500 MG TABLET.DR PO (20:46)
[2023-02-21] MEDS: Insulin Glargine,Hum.rec.anlog 100 UNIT/ML 10 ML VIAL 47 UNIT SUBCUT (20:49)
[2023-02-22] MEDS: Levothyroxine Sodium 75 MCG TABLET PO (06:26)
[2023-02-22 06:38] LABS: Glucose, Whole Blood 112 mg/dL (60-115)
[2023-02-22 07:55] VITALS: BP 121/63; PULSE 66; RESP 18; TEMP 36.8; O2SAT 92
[2023-02-22] MEDS: Clopidogrel Bisulfate 75 MG TABLET PO (08:39)
[2023-02-22] MEDS: Metoprolol Tartrate 25 MG TABLET PO (08:39)
[2023-02-22] MEDS: Divalproex Sodium 250 MG TABLET.DR PO (08:39)
[2023-02-22] MEDS: Memantine HCl 10 MG TABLET PO ×2 (08:39→20:54)
[2023-02-22] MEDS: Escitalopram Oxalate 10 MG TABLET PO (08:39)
[2023-02-22] MEDS: Lidocaine 4 % Patch ADH..PATCH 1 PATCH TRANSDERMA (08:39)
[2023-02-22 11:37] LABS: Glucose, Whole Blood 227 mg/dL (60-115)
[2023-02-22] MEDS: Insulin Lispro 100 UNIT/ML 3 ML VIAL SUBCUT (11:51)
--- NOTE | 2023-02-22 11:54 | HO.PSYCHPN ---
Subjective Subjective Date of Service: 02/22/23 Reason For Visit: Depression Subjective Notes: Conditional Voluntary Interim History: Patient was seen and discussed in rounds today. Records and plans were reviewed. She has been doing better and has been brighter. Eating and sleeping adequately. Blood sugars within range. No complaints or side effects. No changes were made Review of Systems Review of Systems nothing acute Yes all other systems are reviewed and are negative Diagnostics Vital Signs (24Hr): Vital Signs - 24 hr 02/21/23 18:00 02/22/23 07:55 Temperature 97.2 F 98.2 F Pulse Rate 62 66 Respiratory Rate 18 18 Blood Pressure 145/65 H 121/63 Pulse Oximetry 96 92 Oxygen Delivery Method Room Air Room Air BMI result Body Mass Index 28.5 Labs 01/07/23 17:49 01/07/23 17:49 Labs: Laboratory Results - last 48 hr 02/20/23 02/20/23 02/21/23 16:16 20:22 06:39 POC Glucose 206 H 317 H 155 H 02/21/23 02/21/23 02/21/23 11:37 16:26 19:44 POC Glucose 227 H 216 H 213 H 02/22/23 02/22/23 06:25 11:29 POC Glucose 112 227 H Imaging Radiology Impressions: ITS Impressions Venous Duplex 01/30/23 16:02 IMPRESSION: No DVT demonstrated in the bilateral lower extremity. Medications Medications Current Medications Acetaminophen (Acetaminophen 325 Mg Tablet) 650 mg PO Q6H PRN PRN Reason: Headache/Pain Mild Scale (1-3) Last Admin: 02/20/23 11:15 Dose: 650 mg Al Hydroxide/Mg Hydroxide (Magnesium Hydrox/Alum Hydrox 30 Ml Oral.Susp) 30 ml PO Q6H PRN PRN Reason: Heartburn/Nausea Last Admin: 02/10/23 22:17 Dose: 30 ml Atorvastatin Calcium (Atorvastatin Calcium 20 Mg Tablet) 20 mg PO BEDTIME [facility] Last Admin: 02/21/23 20:46 Dose: 20 mg Bisacodyl (Bisacodyl 10 Mg Supp.Rect) 10 mg [place] DAILY PRN PRN Reason: Constipation Clopidogrel Bisulfate (Clopidogrel Bisulfate 75 Mg Tablet) 75 mg PO DAILY [facility] Last Admin: 02/22/23 08:39 Dose: 75 mg Divalproex Sodium (Divalproex Sodium 500 Mg Tablet.Dr) 500 mg PO BEDTIME [facility] Last Admin: 02/21/23 20:46 Dose: 500 mg Divalproex Sodium (Divalproex Sodium 250 Mg Tablet.Dr) 250 mg PO DAILY [facility] Last Admin: 02/22/23 08:39 Dose: 250 mg Donepezil HCl (Donepezil Hcl 10 Mg Tablet) 10 mg PO BEDTIME [facility] Last Admin: 02/21/23 20:45 Dose: 10 mg Escitalopram Oxalate (Escitalopram Oxalate 10 Mg Tablet) 10 mg PO DAILY [facility] Last Admin: 02/22/23 08:39 Dose: 10 mg Gabapentin (Gabapentin 600 Mg Tablet) 1,200 mg PO BEDTIME [facility] Last Admin: 02/21/23 20:46 Dose: 1,200 mg Glucagon (Glucagon Hcl 1 Mg Vial) 1 mg SUBCUT Q20M PRN PRN Reason: BG <70 AND UNRESPONSIVE Glucose (Glucose Gel 15 Gm Gel..Gram.) 15 gm PO Q15M PRN PRN Reason: BG <70 AND RESPONSIVE Last Admin: 01/30/23 03:12 Dose: 15 gm Insulin Glargine (Insulin Glargine,Hum.Rec.Anlog 100 Unit/Ml 10 Ml Vial) 47 unit SUBCUT BEDTIME [facility] Last Admin: 02/21/23 20:49 Dose: 47 unit Insulin Human Lispro (Insulin Lispro 100 Unit/Ml 3 Ml Vial) 0 unit SUBCUT TIDAC [facility]; Protocol Last Admin: 02/22/23 11:51 Dose: 6 unit Levothyroxine Sodium (Levothyroxine Sodium 75 Mcg Tablet) 75 mcg PO DAILY@0630 [facility] Last Admin: 02/22/23 06:26 Dose: 75 mcg Lidocaine (Lidocaine 4 % Patch Adh..Patch) 1 patch TRANSDERMA DAILY [facility]; Protocol Last Admin: 02/22/23 08:39 Dose: 1 patch Loperamide HCl (Loperamide Hcl 2 Mg Capsule) 2 mg PO Q6H PRN PRN Reason: diarrhea Last Admin: 02/19/23 11:09 Dose: 2 mg Magnesium Hydroxide (Milk Of Magnesia 30 Ml Oral.Susp) 30 ml PO DAILY PRN PRN Reason: Constipation Magnesium Hydroxide (Milk Of Magnesia 30 Ml Oral.Susp) 30 ml PO DAILY PRN PRN Reason: Constipation Memantine (Memantine Hcl 10 Mg Tablet) 10 mg PO BID [facility] Last Admin: 02/22/23 08:39 Dose: 10 mg Metoprolol Tartrate (Metoprolol Tartrate 25 Mg Tablet) 25 mg PO DAILY [facility]; Protocol Last Admin: 02/22/23 08:39 Dose: 25 mg Quetiapine Fumarate (Quetiapine Fumarate 50 Mg Tablet) 50 mg PO Q6H PRN PRN Reason: agitation Last Admin: 01/08/23 23:46 Dose: 50 mg Sodium Biphosphate/Sodium Phosphate (Sodium Phosphate,[place]-Dibasic 133 Ml Enema) 133 ml [place] DAILY PRN PRN Reason: Constipation Trazodone HCl (Trazodone Hcl 50 Mg Tablet) 50 mg PO BEDTIME PRN PRN Reason: Insomnia Last Admin: 02/20/23 21:09 Dose: 50 mg Valsartan (Valsartan 80 Mg Tablet) 80 mg PO BEDTIME [facility]; Protocol Last Admin: 02/21/23 20:46 Dose: 80 mg Allergies Allergies Allergy/AdvReac Type Severity Reaction Status Date / Time aspirin [ASPIRIN] Allergy Unknown UNKNOWN Verified 01/01/23 09:43 Assessment & Plan Assessment & Plan (1) Major neurocognitive disorder: Status: Acute Code(s): F03.90 - Unspecified dementia, unspecified severity, without behavioral disturbance, psychotic disturbance, mood disturbance, and anxiety (2) Mood disorder: Status: Acute Code(s): F39 - Unspecified mood [affective] disorder Plan Ms. Landis is a 67 year-old woman with hx of Mood Disorder (untreated for most of her life) and neurocognitive disorder who was brought via EMS from [facility] due to increase verbal aggression towards roommate and one of their staff. Pt is known to this screen writer through previous assessment for similar presentation. Pt presents as calmer, she does admit to being verbally abusive, although denies any intent to harm self or others. She does lack the insight into how her behaviors affect others and her relationships with others. This tendency to have difficulty seeing other people's need per daughter has been life long. Pt presents with tendency to be irritable, at times explosive but not physically aggressive. She was started back in September on low dose of seroquel but no further medication adjustments have been made to manage these symptoms, which are disruptive but not life threatening nor at imminent risk of harm to self or others. As consequence of minimal intervention in the community, pt has had more frequent ED visits here and at [facility]. We discussed risks, benefits and alternative treatment options, pt agrees to start mood stabilizer for impulsive, explosive behaviors. We also discussed switching seroquel to risperidone. Pt is orientation has been intact all along. PLAN 01/20 schedule trazodone 50mg po qhs for sleep. 01/21 continue tx. depakote levels scheduled for tomorrow AM with ammonia levels. 01/22 trough depakote level 75, ammonia 41. continue tx. continue tx 01/24 continue tx. 01/25 continue tx. 01/26 continue tx. 01/27: continue current mgmt. 01/28: continue current mgmt. 01/29 continue tx. 01/30 continue tx. 01/31 continues tx-continue monitor bilat LE- doppler did not show DVT. 02/01: No change in medications, continue current plan of care. 02/02: Continue current plan. 02/03: Continue current plans and regimen 02/04 continue tx. 02/05 continue tx. 02/06 continue tx. 02/07 continue tx. 02/09: no changes 02/10 continue tx. 02/11 continue tx. 02/12 continue tx. 02/13 continue tx. 02/14 continue tx. awaiting placement. 02/15: Continue current treatment plan. 02/16: Continue current plan. 02/17 continue tx. 02/18 continue tx. 02/19 continue tx. 02/20 continue tx. 02/21 continue tx. 02/22: Continue current plans and regimen Reason for continued inpatient stay Substantial Risk for: med/psych decompensation Time Spent With Patient Time: Total time managing care of this patient today ____ minutes.
[2023-02-22 16:25] LABS: Glucose, Whole Blood 111 mg/dL (60-115)
[2023-02-22 18:00] VITALS: BP 169/70; PULSE 70; RESP 16; TEMP 36.3; O2SAT 98
[2023-02-22] MEDS: Gabapentin 600 MG TABLET 1200 MG PO (20:52)
[2023-02-22] MEDS: Valsartan 80 MG TABLET PO (20:53)
[2023-02-22] MEDS: traZODone HCL 50 MG TABLET PO (20:53)
[2023-02-22] MEDS: Atorvastatin Calcium 20 MG TABLET PO (20:53)
[2023-02-22] MEDS: Donepezil HCl 10 MG TABLET PO (20:54)
[2023-02-22] MEDS: Divalproex Sodium 500 MG TABLET.DR PO (20:54)
[2023-02-22] MEDS: Insulin Glargine,Hum.rec.anlog 100 UNIT/ML 10 ML VIAL 47 UNIT SUBCUT (21:01)
[2023-02-22 21:21] LABS: Glucose, Whole Blood 277 mg/dL (60-115)
[2023-02-23 06:00] VITALS: BP 123/56; PULSE 65; RESP 16; TEMP 36.3; O2SAT 95
[2023-02-23] MEDS: Levothyroxine Sodium 75 MCG TABLET PO (06:18)
[2023-02-23 06:40] LABS: Glucose, Whole Blood 92 mg/dL (60-115)
[2023-02-23] MEDS: Metoprolol Tartrate 25 MG TABLET PO (08:48)
[2023-02-23] MEDS: Clopidogrel Bisulfate 75 MG TABLET PO (08:48)
[2023-02-23] MEDS: Memantine HCl 10 MG TABLET PO ×2 (08:48→20:09)
[2023-02-23] MEDS: Divalproex Sodium 250 MG TABLET.DR PO (08:48)
[2023-02-23] MEDS: Escitalopram Oxalate 10 MG TABLET PO (08:48)
[2023-02-23] MEDS: Lidocaine 4 % Patch ADH..PATCH 1 PATCH TRANSDERMA (09:14)
--- NOTE | 2023-02-23 10:07 | P.PNPSI_ITS ---
Subjective Subjective Date of Service: 02/23/23 Reason For Visit: Depression Subjective Notes: Conditional Voluntary Interim History: Patient was seen and discussed in rounds today. Records and plans were reviewed. She has been stable and is doing better. Affect is brighter. She is compliant with medications. No side effects reported. Eating and mostly sleeping adequately. No changes were made Review of Systems Review of Systems nothing acute Yes all other systems are reviewed and are negative Mental Status Exam Mental Status Exam Narrative: In today's visit she is alert and oriented. Soft-spoken speech. Moderate eye contact. No signs of psychosis. Cognitively at baseline. Judgment is fair. Diagnostics Vital Signs (24Hr): Vital Signs - 24 hr 02/22/23 18:00 02/23/23 06:00 Temperature 97.3 F 97.3 F Pulse Rate 70 65 Respiratory Rate 16 16 Blood Pressure 169/70 H 123/56 L Pulse Oximetry 98 95 Oxygen Delivery Method Room Air Room Air BMI result Body Mass Index 28.5 Labs 01/07/23 17:49 01/07/23 17:49 Labs: Laboratory Results - last 48 hr 02/21/23 02/21/23 02/21/23 11:37 16:26 19:44 POC Glucose 227 H 216 H 213 H 02/22/23 02/22/23 02/22/23 06:25 11:29 16:14 POC Glucose 112 227 H 111 02/22/23 02/23/23 21:01 06:17 POC Glucose 277 H 92 Imaging Radiology Impressions: ITS Impressions Venous Duplex 01/30/23 16:02 IMPRESSION: No DVT demonstrated in the bilateral lower extremity. Medications Medications Current Medications Acetaminophen (Acetaminophen 325 Mg Tablet) 650 mg PO Q6H PRN PRN Reason: Headache/Pain Mild Scale (1-3) Last Admin: 02/20/23 11:15 Dose: 650 mg Al Hydroxide/Mg Hydroxide (Magnesium Hydrox/Alum Hydrox 30 Ml Oral.Susp) 30 ml PO Q6H PRN PRN Reason: Heartburn/Nausea Last Admin: 02/10/23 22:17 Dose: 30 ml Atorvastatin Calcium (Atorvastatin Calcium 20 Mg Tablet) 20 mg PO BEDTIME [facility] Last Admin: 02/22/23 20:53 Dose: 20 mg Bisacodyl (Bisacodyl 10 Mg Supp.Rect) 10 mg [place] DAILY PRN PRN Reason: Constipation Clopidogrel Bisulfate (Clopidogrel Bisulfate 75 Mg Tablet) 75 mg PO DAILY [facility] Last Admin: 02/23/23 08:48 Dose: 75 mg Divalproex Sodium (Divalproex Sodium 500 Mg Tablet.) 500 mg PO BEDTIME [facility] Last Admin: 02/22/23 20:54 Dose: 500 mg Divalproex Sodium (Divalproex Sodium 250 Mg Tablet.) 250 mg PO DAILY [facility] Last Admin: 02/23/23 08:48 Dose: 250 mg Donepezil HCl (Donepezil Hcl 10 Mg Tablet) 10 mg PO BEDTIME [facility] Last Admin: 02/22/23 20:54 Dose: 10 mg Escitalopram Oxalate (Escitalopram Oxalate 10 Mg Tablet) 10 mg PO DAILY [facility] Last Admin: 02/23/23 08:48 Dose: 10 mg Gabapentin (Gabapentin 600 Mg Tablet) 1,200 mg PO BEDTIME [facility] Last Admin: 02/22/23 20:52 Dose: 1,200 mg Glucagon (Glucagon Hcl 1 Mg Vial) 1 mg SUBCUT Q20M PRN PRN Reason: BG <70 AND UNRESPONSIVE Glucose (Glucose Gel 15 Gm Gel..Gram.) 15 gm PO Q15M PRN PRN Reason: BG <70 AND RESPONSIVE Last Admin: 01/30/23 03:12 Dose: 15 gm Insulin Glargine (Insulin Glargine,Hum.Rec.Anlog 100 Unit/Ml 10 Ml Vial) 47 unit SUBCUT BEDTIME [facility] Last Admin: 02/22/23 21:01 Dose: 47 unit Insulin Human Lispro (Insulin Lispro 100 Unit/Ml 3 Ml Vial) 0 unit SUBCUT TIDAC [facility]; Protocol Last Admin: 02/23/23 08:47 Dose: Not Given Levothyroxine Sodium (Levothyroxine Sodium 75 Mcg Tablet) 75 mcg PO DAILY@0630 [facility] Last Admin: 02/23/23 06:18 Dose: 75 mcg Lidocaine (Lidocaine 4 % Patch Adh..Patch) 1 patch TRANSDERMA DAILY [facility]; Protocol Last Admin: 02/23/23 09:14 Dose: 1 patch Loperamide HCl (Loperamide Hcl 2 Mg Capsule) 2 mg PO Q6H PRN PRN Reason: diarrhea Last Admin: 02/19/23 11:09 Dose: 2 mg Magnesium Hydroxide (Milk Of Magnesia 30 Ml Oral.Susp) 30 ml PO DAILY PRN PRN Reason: Constipation Magnesium Hydroxide (Milk Of Magnesia 30 Ml Oral.Susp) 30 ml PO DAILY PRN PRN Reason: Constipation Memantine (Memantine Hcl 10 Mg Tablet) 10 mg PO BID [facility] Last Admin: 02/23/23 08:48 Dose: 10 mg Metoprolol Tartrate (Metoprolol Tartrate 25 Mg Tablet) 25 mg PO DAILY [facility]; Protocol Last Admin: 02/23/23 08:48 Dose: 25 mg Quetiapine Fumarate (Quetiapine Fumarate 50 Mg Tablet) 50 mg PO Q6H PRN PRN Reason: agitation Last Admin: 01/08/23 23:46 Dose: 50 mg Sodium Biphosphate/Sodium Phosphate (Sodium Phosphate,[place]-Dibasic 133 Ml Enema) 133 ml [place] DAILY PRN PRN Reason: Constipation Trazodone HCl (Trazodone Hcl 50 Mg Tablet) 50 mg PO BEDTIME PRN PRN Reason: Insomnia Last Admin: 02/22/23 20:53 Dose: 50 mg Valsartan (Valsartan 80 Mg Tablet) 80 mg PO BEDTIME [facility]; Protocol Last Admin: 02/22/23 20:53 Dose: 80 mg Allergies Allergies Allergy/AdvReac Type Severity Reaction Status Date / Time aspirin [ASPIRIN] Allergy Unknown UNKNOWN Verified 01/01/23 09:43 Assessment & Plan Assessment & Plan (1) Major neurocognitive disorder: Status: Acute Code(s): F03.90 - Unspecified dementia, unspecified severity, without behavioral disturbance, psychotic disturbance, mood disturbance, and anxiety (2) Mood disorder: Status: Acute Code(s): F39 - Unspecified mood [affective] disorder Plan Ms. Landis is a 67 year-old woman with hx of Mood Disorder (untreated for most of her life) and neurocognitive disorder who was brought via EMS from [facility] due to increase verbal aggression towards roommate and one of their staff. Pt is known to this flex o writer operator through previous assessment for similar presentation. Pt presents as calmer, she does admit to being verbally abusive, although denies any intent to harm self or others. She does lack the insight into how her behaviors affect others and her relationships with others. This tendency to have difficulty seeing other people's need per daughter has been life long. Pt presents with tendency to be irritable, at times explosive but not physically aggressive. She was started back in September on low dose of seroquel but no further medication adjustments have been made to manage these symptoms, which are disruptive but not life threatening nor at imminent risk of harm to self or others. As consequence of minimal intervention in the community, pt has had more frequent ED visits here and at [facility]. We discussed risks, benefits and alternative treatment options, pt agrees to start mood stabilizer for impulsive, explosive behaviors. We also discussed switching seroquel to risperidone. Pt is orientation has been intact all along. PLAN 01/20 schedule trazodone 50mg po qhs for sleep. 01/21 continue tx. depakote levels scheduled for tomorrow AM with ammonia levels. 01/22 trough depakote level 75, ammonia 41. continue tx. continue tx 01/24 continue tx. 01/25 continue tx. 01/26 continue tx. 01/27: continue current mgmt. 01/28: continue current mgmt. 01/29 continue tx. 01/30 continue tx. 01/31 continues tx-continue monitor bilat LE- doppler did not show DVT. 02/01: No change in medications, continue current plan of care. 02/02: Continue current plan. 02/03: Continue current plans and regimen 02/04 continue tx. 02/05 continue tx. 02/06 continue tx. 02/07 continue tx. 02/09: no changes 02/10 continue tx. 02/11 continue tx. 02/12 continue tx. 02/13 continue tx. 02/14 continue tx. awaiting placement. 02/15: Continue current treatment plan. 02/16: Continue current plan. 02/17 continue tx. 02/18 continue tx. 02/19 continue tx. 02/20 continue tx. 02/21 continue tx. 02/22: Continue current plans and regimen 02/22: Continue current plans and regimen Reason for continued inpatient stay Substantial Risk for: inability to function Time Spent With Patient Time: Total time managing care of this patient today ____ minutes.
[2023-02-23 11:39] LABS: Glucose, Whole Blood 211 mg/dL (60-115)
[2023-02-23] MEDS: Insulin Lispro 100 UNIT/ML 3 ML VIAL SUBCUT ×2 (11:58→17:11)
[2023-02-23 16:36] LABS: Glucose, Whole Blood 174 mg/dL (60-115)
[2023-02-23 18:00] VITALS: BP 128/58; PULSE 62; RESP 18; TEMP 36.4; O2SAT 94
[2023-02-23 19:50] LABS: Glucose, Whole Blood 247 mg/dL (60-115)
[2023-02-23] MEDS: Gabapentin 600 MG TABLET 1200 MG PO (20:09)
[2023-02-23] MEDS: Divalproex Sodium 500 MG TABLET.DR PO (20:09)
[2023-02-23] MEDS: Donepezil HCl 10 MG TABLET PO (20:09)
[2023-02-23] MEDS: Valsartan 80 MG TABLET PO (20:09)
[2023-02-23] MEDS: Insulin Glargine,Hum.rec.anlog 100 UNIT/ML 10 ML VIAL 47 UNIT SUBCUT (20:10)
[2023-02-23] MEDS: Atorvastatin Calcium 20 MG TABLET PO (20:10)
[2023-02-23] MEDS: traZODone HCL 50 MG TABLET PO (20:18)
[2023-02-24] MEDS: QUEtiapine Fumarate 50 MG TABLET PO (00:53)
[2023-02-24] MEDS: Levothyroxine Sodium 75 MCG TABLET PO (05:49)
[2023-02-24 07:24] LABS: Glucose, Whole Blood 123 mg/dL (60-115)
[2023-02-24 08:00] VITALS: BP 129/58; PULSE 62; RESP 18; TEMP 36.2; O2SAT 96
[2023-02-24] MEDS: Memantine HCl 10 MG TABLET PO ×2 (08:33→21:53)
[2023-02-24] MEDS: Metoprolol Tartrate 25 MG TABLET PO (08:33)
[2023-02-24] MEDS: Escitalopram Oxalate 10 MG TABLET PO (08:33)
[2023-02-24] MEDS: Clopidogrel Bisulfate 75 MG TABLET PO (08:33)
[2023-02-24] MEDS: Divalproex Sodium 250 MG TABLET.DR PO (08:33)
[2023-02-24] MEDS: Lidocaine 4 % Patch ADH..PATCH 1 PATCH TRANSDERMA (08:37)
--- NOTE | 2023-02-24 08:42 | P.PNPSI_ITS ---
Subjective Subjective Date of Service: 02/24/23 Reason For Visit: Depression Subjective Notes: Conditional Voluntary Interim History: Patient was seen and discussed in rounds today. Records and plans were reviewed. She has been stable and is doing better. Affect is brighter. She is compliant with medications. No side effects reported. Eating and mostly sleeping adequately. No changes were made Review of Systems Review of Systems nothing acute Yes all other systems are reviewed and are negative Mental Status Exam Mental Status Exam Patient Appearance: Appropriate Patient Orientation: Person and Situation Level of Consciousness: Awake and Appropriate Patient Behavior: Guarded and Passive Mood Description: Withdrawn Affect Description: Constricted Patient Cognition Impaired: Yes Ability to Follow Directions: Fair Speech Pattern: Clear Diagnostics Vital Signs (24Hr): Vital Signs - 24 hr 02/23/23 18:00 Temperature 97.6 F Pulse Rate 62 Respiratory Rate 18 Blood Pressure 128/58 L Pulse Oximetry 94 Oxygen Delivery Method Room Air BMI result Body Mass Index 28.5 Labs 01/07/23 17:49 01/07/23 17:49 Labs: Laboratory Results - last 48 hr 02/22/23 02/22/23 02/22/23 11:29 16:14 21:01 POC Glucose 227 H 111 277 H 02/23/23 02/23/23 02/23/23 06:17 11:35 16:32 POC Glucose 92 211 H 174 H 02/23/23 02/24/23 19:37 07:16 POC Glucose 247 H 123 H Imaging Radiology Impressions: ITS Impressions Venous Duplex 01/30/23 16:02 IMPRESSION: No DVT demonstrated in the bilateral lower extremity. Medications Medications Current Medications Acetaminophen (Acetaminophen 325 Mg Tablet) 650 mg PO Q6H PRN PRN Reason: Headache/Pain Mild Scale (1-3) Last Admin: 02/20/23 11:15 Dose: 650 mg Al Hydroxide/Mg Hydroxide (Magnesium Hydrox/Alum Hydrox 30 Ml Oral.Susp) 30 ml PO Q6H PRN PRN Reason: Heartburn/Nausea Last Admin: 02/10/23 22:17 Dose: 30 ml Atorvastatin Calcium (Atorvastatin Calcium 20 Mg Tablet) 20 mg PO BEDTIME [facility] Last Admin: 02/23/23 20:10 Dose: 20 mg Bisacodyl (Bisacodyl 10 Mg Supp.Rect) 10 mg [place] DAILY PRN PRN Reason: Constipation Clopidogrel Bisulfate (Clopidogrel Bisulfate 75 Mg Tablet) 75 mg PO DAILY [facility] Last Admin: 02/24/23 08:33 Dose: 75 mg Divalproex Sodium (Divalproex Sodium 500 Mg Tablet.) 500 mg PO BEDTIME [facility] Last Admin: 02/23/23 20:09 Dose: 500 mg Divalproex Sodium (Divalproex Sodium 250 Mg Tablet.) 250 mg PO DAILY [facility] Last Admin: 02/24/23 08:33 Dose: 250 mg Donepezil HCl (Donepezil Hcl 10 Mg Tablet) 10 mg PO BEDTIME [facility] Last Admin: 02/23/23 20:09 Dose: 10 mg Escitalopram Oxalate (Escitalopram Oxalate 10 Mg Tablet) 10 mg PO DAILY [facility] Last Admin: 02/24/23 08:33 Dose: 10 mg Gabapentin (Gabapentin 600 Mg Tablet) 1,200 mg PO BEDTIME [facility] Last Admin: 02/23/23 20:09 Dose: 1,200 mg Glucagon (Glucagon Hcl 1 Mg Vial) 1 mg SUBCUT Q20M PRN PRN Reason: BG <70 AND UNRESPONSIVE Glucose (Glucose Gel 15 Gm Gel..Gram.) 15 gm PO Q15M PRN PRN Reason: BG <70 AND RESPONSIVE Last Admin: 01/30/23 03:12 Dose: 15 gm Insulin Glargine (Insulin Glargine,Hum.Rec.Anlog 100 Unit/Ml 10 Ml Vial) 47 unit SUBCUT BEDTIME [facility] Last Admin: 02/23/23 20:10 Dose: 47 unit Insulin Human Lispro (Insulin Lispro 100 Unit/Ml 3 Ml Vial) 0 unit SUBCUT TIDAC [facility]; Protocol Last Admin: 02/24/23 08:35 Dose: Not Given Levothyroxine Sodium (Levothyroxine Sodium 75 Mcg Tablet) 75 mcg PO DAILY@0630 [facility] Last Admin: 02/24/23 05:49 Dose: 75 mcg Lidocaine (Lidocaine 4 % Patch Adh..Patch) 1 patch TRANSDERMA DAILY [facility]; Protocol Last Admin: 02/24/23 08:37 Dose: 1 patch Loperamide HCl (Loperamide Hcl 2 Mg Capsule) 2 mg PO Q6H PRN PRN Reason: diarrhea Last Admin: 02/19/23 11:09 Dose: 2 mg Magnesium Hydroxide (Milk Of Magnesia 30 Ml Oral.Susp) 30 ml PO DAILY PRN PRN Reason: Constipation Magnesium Hydroxide (Milk Of Magnesia 30 Ml Oral.Susp) 30 ml PO DAILY PRN PRN Reason: Constipation Memantine (Memantine Hcl 10 Mg Tablet) 10 mg PO BID [facility] Last Admin: 02/24/23 08:33 Dose: 10 mg Metoprolol Tartrate (Metoprolol Tartrate 25 Mg Tablet) 25 mg PO DAILY [facility]; Protocol Last Admin: 02/24/23 08:33 Dose: 25 mg Quetiapine Fumarate (Quetiapine Fumarate 50 Mg Tablet) 50 mg PO Q6H PRN PRN Reason: agitation Last Admin: 02/24/23 00:53 Dose: 50 mg Sodium Biphosphate/Sodium Phosphate (Sodium Phosphate,[place]-Dibasic 133 Ml Enema) 133 ml [place] DAILY PRN PRN Reason: Constipation Trazodone HCl (Trazodone Hcl 50 Mg Tablet) 50 mg PO BEDTIME PRN PRN Reason: Insomnia Last Admin: 02/23/23 20:18 Dose: 50 mg Valsartan (Valsartan 80 Mg Tablet) 80 mg PO BEDTIME [facility]; Protocol Last Admin: 02/23/23 20:09 Dose: 80 mg Allergies Allergies Allergy/AdvReac Type Severity Reaction Status Date / Time aspirin [ASPIRIN] Allergy Unknown UNKNOWN Verified 01/01/23 09:43 Assessment & Plan Assessment & Plan (1) Major neurocognitive disorder: Status: Acute Code(s): F03.90 - Unspecified dementia, unspecified severity, without behavioral disturbance, psychotic disturbance, mood disturbance, and anxiety (2) Mood disorder: Status: Acute Code(s): F39 - Unspecified mood [affective] disorder Plan Ms. Landis is a 67 year-old woman with hx of Mood Disorder (untreated for most of her life) and neurocognitive disorder who was brought via EMS from [facility] due to increase verbal aggression towards roommate and one of their staff. Pt is known to this abstract writer through previous assessment for similar presentation. Pt presents as calmer, she does admit to being verbally abusive, although denies any intent to harm self or others. She does lack the insight into how her behaviors affect others and her relationships with others. This tendency to have difficulty seeing other people's need per daughter has been life long. Pt presents with tendency to be irritable, at times explosive but not physically aggressive. She was started back in September on low dose of seroquel but no further medication adjustments have been made to manage these symptoms, which are disruptive but not life threatening nor at imminent risk of harm to self or others. As consequence of minimal intervention in the community, pt has had more frequent ED visits here and at [facility]. We discussed risks, benefits and alternative treatment options, pt agrees to start mood stabilizer for impulsive, explosive behaviors. We also discussed switching seroquel to risperidone. Pt is orientation has been intact all along. PLAN 01/20 schedule trazodone 50mg po qhs for sleep. 01/21 continue tx. depakote levels scheduled for tomorrow AM with ammonia levels. 01/22 trough depakote level 75, ammonia 41. continue tx. continue tx 01/24 continue tx. 01/25 continue tx. 01/26 continue tx. 01/27: continue current mgmt. 01/28: continue current mgmt. 01/29 continue tx. 01/30 continue tx. 01/31 continues tx-continue monitor bilat LE- doppler did not show DVT. 02/01: No change in medications, continue current plan of care. 02/02: Continue current plan. 02/03: Continue current plans and regimen 02/04 continue tx. 02/05 continue tx. 02/06 continue tx. 02/07 continue tx. 02/09: no changes 02/10 continue tx. 02/11 continue tx. 02/12 continue tx. 02/13 continue tx. 02/14 continue tx. awaiting placement. 02/15: Continue current treatment plan. 02/16: Continue current plan. 02/17 continue tx. 02/18 continue tx. 02/19 continue tx. 02/20 continue tx. 02/21 continue tx. 02/22: Continue current plans and regimen 02/23: Continue current plans and regimen 02/24 continue tx. Reason for continued inpatient stay Substantial Risk for: inability to function Time Spent With Patient Time: Total time managing care of this patient today ____ minutes.
[2023-02-24 11:37] LABS: Glucose, Whole Blood 236 mg/dL (60-115)
[2023-02-24] MEDS: Insulin Lispro 100 UNIT/ML 3 ML VIAL SUBCUT ×2 (12:07→22:17)
[2023-02-24 16:30] LABS: Glucose, Whole Blood 264 mg/dL (60-115)
[2023-02-24 18:00] VITALS: BP 130/71; PULSE 66; RESP 16; TEMP 35.7; O2SAT 95
[2023-02-24] MEDS: Valsartan 80 MG TABLET PO (21:53)
[2023-02-24] MEDS: Gabapentin 600 MG TABLET 1200 MG PO (21:53)
[2023-02-24] MEDS: Donepezil HCl 10 MG TABLET PO (21:53)
[2023-02-24] MEDS: Atorvastatin Calcium 20 MG TABLET PO (21:53)
[2023-02-24] MEDS: Divalproex Sodium 500 MG TABLET.DR PO (21:54)
[2023-02-24 21:57] LABS: Glucose, Whole Blood 229 mg/dL (60-115)
[2023-02-24] MEDS: Insulin Glargine,Hum.rec.anlog 100 UNIT/ML 10 ML VIAL 47 UNIT SUBCUT (22:19)
[2023-02-25] MEDS: Levothyroxine Sodium 75 MCG TABLET PO (05:13)
[2023-02-25 07:50] VITALS: BP 144/70; PULSE 61; RESP 18; TEMP 36.8; O2SAT 96
[2023-02-25] MEDS: Memantine HCl 10 MG TABLET PO ×2 (08:33→20:43)
[2023-02-25] MEDS: Divalproex Sodium 250 MG TABLET.DR PO (08:33)
[2023-02-25] MEDS: Lidocaine 4 % Patch ADH..PATCH 1 PATCH TRANSDERMA (08:33)
[2023-02-25] MEDS: Clopidogrel Bisulfate 75 MG TABLET PO (08:33)
[2023-02-25] MEDS: Escitalopram Oxalate 10 MG TABLET PO (08:33)
[2023-02-25] MEDS: Metoprolol Tartrate 25 MG TABLET PO (08:33)
[2023-02-25] MEDS: Acetaminophen 325 MG TABLET 650 MG PO (09:48)
[2023-02-25 11:31] LABS: Glucose, Whole Blood 105 mg/dL (60-115)
[2023-02-25 11:31] LABS: Glucose, Whole Blood 343 mg/dL (60-115)
[2023-02-25] MEDS: Insulin Lispro 100 UNIT/ML 3 ML VIAL SUBCUT ×2 (11:42→16:32)
[2023-02-25 16:38] LABS: Glucose, Whole Blood 206 mg/dL (60-115)
--- NOTE | 2023-02-25 17:52 | HO.PSYCHPN ---
Subjective Subjective Date of Service: 02/25/23 Reason For Visit: Depression Subjective Notes: Conditional Voluntary Interim History: Pt visible on the unit, attending groups. She is sleeping and eating well. No SI/HI. No aggression towards self or others. Pt is pleasant. Review of Systems Review of Systems nothing acute Yes all other systems are reviewed and are negative Mental Status Exam Mental Status Exam Patient Appearance: Appropriate Patient Orientation: Person and Situation Level of Consciousness: Awake and Appropriate Patient Behavior: Guarded and Passive Mood Description: Withdrawn Affect Description: Constricted Patient Cognition Impaired: Yes Ability to Follow Directions: Fair Speech Pattern: Clear Diagnostics Vital Signs (24Hr): Vital Signs - 24 hr 02/24/23 18:00 02/25/23 07:50 Temperature 96.3 F L 98.2 F Pulse Rate 66 61 Respiratory Rate 16 18 Blood Pressure 130/71 144/70 H Pulse Oximetry 95 96 Oxygen Delivery Method Room Air Room Air BMI result Body Mass Index 28.5 Labs 01/07/23 17:49 01/07/23 17:49 Labs: Laboratory Results - last 48 hr 02/23/23 02/24/23 02/24/23 19:37 07:16 11:25 POC Glucose 247 H 123 H 236 H 02/24/23 02/24/23 02/25/23 16:23 19:53 05:11 POC Glucose 264 H 229 H 105 02/25/23 02/25/23 11:11 16:10 POC Glucose 343 H 206 H Imaging Radiology Impressions: ITS Impressions Venous Duplex 01/30/23 16:02 IMPRESSION: No DVT demonstrated in the bilateral lower extremity. Medications Medications Current Medications Acetaminophen (Acetaminophen 325 Mg Tablet) 650 mg PO Q6H PRN PRN Reason: Headache/Pain Mild Scale (1-3) Last Admin: 02/25/23 09:48 Dose: 650 mg Al Hydroxide/Mg Hydroxide (Magnesium Hydrox/Alum Hydrox 30 Ml Oral.Susp) 30 ml PO Q6H PRN PRN Reason: Heartburn/Nausea Last Admin: 02/10/23 22:17 Dose: 30 ml Atorvastatin Calcium (Atorvastatin Calcium 20 Mg Tablet) 20 mg PO BEDTIME [facility] Last Admin: 02/24/23 21:53 Dose: 20 mg Bisacodyl (Bisacodyl 10 Mg Supp.Rect) 10 mg [place] DAILY PRN PRN Reason: Constipation Clopidogrel Bisulfate (Clopidogrel Bisulfate 75 Mg Tablet) 75 mg PO DAILY [facility] Last Admin: 02/25/23 08:33 Dose: 75 mg Divalproex Sodium (Divalproex Sodium 500 Mg Tablet.) 500 mg PO BEDTIME [facility] Last Admin: 02/24/23 21:54 Dose: 500 mg Divalproex Sodium (Divalproex Sodium 250 Mg Tablet.) 250 mg PO DAILY [facility] Last Admin: 02/25/23 08:33 Dose: 250 mg Donepezil HCl (Donepezil Hcl 10 Mg Tablet) 10 mg PO BEDTIME [facility] Last Admin: 02/24/23 21:53 Dose: 10 mg Escitalopram Oxalate (Escitalopram Oxalate 10 Mg Tablet) 10 mg PO DAILY [facility] Last Admin: 02/25/23 08:33 Dose: 10 mg Gabapentin (Gabapentin 600 Mg Tablet) 1,200 mg PO BEDTIME [facility] Last Admin: 02/24/23 21:53 Dose: 1,200 mg Glucagon (Glucagon Hcl 1 Mg Vial) 1 mg SUBCUT Q20M PRN PRN Reason: BG <70 AND UNRESPONSIVE Glucose (Glucose Gel 15 Gm Gel..Gram.) 15 gm PO Q15M PRN PRN Reason: BG <70 AND RESPONSIVE Last Admin: 01/30/23 03:12 Dose: 15 gm Insulin Glargine (Insulin Glargine,Hum.Rec.Anlog 100 Unit/Ml 10 Ml Vial) 47 unit SUBCUT BEDTIME [facility] Last Admin: 02/24/23 22:19 Dose: 47 unit Insulin Human Lispro (Insulin Lispro 100 Unit/Ml 3 Ml Vial) 0 unit SUBCUT TIDAC [facility]; Protocol Last Admin: 02/25/23 16:32 Dose: 4 unit Levothyroxine Sodium (Levothyroxine Sodium 75 Mcg Tablet) 75 mcg PO DAILY@0630 [facility] Last Admin: 02/25/23 05:13 Dose: 75 mcg Lidocaine (Lidocaine 4 % Patch Adh..Patch) 1 patch TRANSDERMA DAILY [facility]; Protocol Last Admin: 02/25/23 08:33 Dose: 1 patch Loperamide HCl (Loperamide Hcl 2 Mg Capsule) 2 mg PO Q6H PRN PRN Reason: diarrhea Last Admin: 02/19/23 11:09 Dose: 2 mg Magnesium Hydroxide (Milk Of Magnesia 30 Ml Oral.Susp) 30 ml PO DAILY PRN PRN Reason: Constipation Magnesium Hydroxide (Milk Of Magnesia 30 Ml Oral.Susp) 30 ml PO DAILY PRN PRN Reason: Constipation Memantine (Memantine Hcl 10 Mg Tablet) 10 mg PO BID JO[facility]E Last Admin: 02/25/23 08:33 Dose: 10 mg Metoprolol Tartrate (Metoprolol Tartrate 25 Mg Tablet) 25 mg PO DAILY [facility]; Protocol Last Admin: 02/25/23 08:33 Dose: 25 mg Quetiapine Fumarate (Quetiapine Fumarate 50 Mg Tablet) 50 mg PO Q6H PRN PRN Reason: agitation Last Admin: 02/24/23 00:53 Dose: 50 mg Sodium Biphosphate/Sodium Phosphate (Sodium Phosphate,[place]-Dibasic 133 Ml Enema) 133 ml [place] DAILY PRN PRN Reason: Constipation Trazodone HCl (Trazodone Hcl 50 Mg Tablet) 50 mg PO BEDTIME PRN PRN Reason: Insomnia Last Admin: 02/23/23 20:18 Dose: 50 mg Valsartan (Valsartan 80 Mg Tablet) 80 mg PO BEDTIME [facility]; Protocol Last Admin: 02/24/23 21:53 Dose: 80 mg Allergies Allergies Allergy/AdvReac Type Severity Reaction Status Date / Time aspirin [ASPIRIN] Allergy Unknown UNKNOWN Verified 01/01/23 09:43 Assessment & Plan Assessment & Plan (1) Major neurocognitive disorder: Status: Acute Code(s): F03.90 - Unspecified dementia, unspecified severity, without behavioral disturbance, psychotic disturbance, mood disturbance, and anxiety (2) Mood disorder: Status: Acute Code(s): F39 - Unspecified mood [affective] disorder Plan Ms. Landis is a 67 year-old woman with hx of Mood Disorder (untreated for most of her life) and neurocognitive disorder who was brought via EMS from [facility] due to increase verbal aggression towards roommate and one of their staff. Pt is known to this commercial insurance underwriter through previous assessment for similar presentation. Pt presents as calmer, she does admit to being verbally abusive, although denies any intent to harm self or others. She does lack the insight into how her behaviors affect others and her relationships with others. This tendency to have difficulty seeing other people's need per daughter has been life long. Pt presents with tendency to be irritable, at times explosive but not physically aggressive. She was started back in September on low dose of seroquel but no further medication adjustments have been made to manage these symptoms, which are disruptive but not life threatening nor at imminent risk of harm to self or others. As consequence of minimal intervention in the community, pt has had more frequent ED visits here and at [facility]. We discussed risks, benefits and alternative treatment options, pt agrees to start mood stabilizer for impulsive, explosive behaviors. We also discussed switching seroquel to risperidone. Pt is orientation has been intact all along. PLAN 01/20 schedule trazodone 50mg po qhs for sleep. 01/21 continue tx. depakote levels scheduled for tomorrow AM with ammonia levels. 01/22 trough depakote level 75, ammonia 41. continue tx. continue tx 01/24 continue tx. 01/25 continue tx. 01/26 continue tx. 01/27: continue current mgmt. 01/28: continue current mgmt. 01/29 continue tx. 01/30 continue tx. 01/31 continues tx-continue monitor bilat LE- doppler did not show DVT. 02/01: No change in medications, continue current plan of care. 02/02: Continue current plan. 02/03: Continue current plans and regimen 02/04 continue tx. 02/05 continue tx. 02/06 continue tx. 02/07 continue tx. 02/09: no changes 02/10 continue tx. 02/11 continue tx. 02/12 continue tx. 02/13 continue tx. 02/14 continue tx. awaiting placement. 02/15: Continue current treatment plan. 02/16: Continue current plan. 02/17 continue tx. 02/18 continue tx. 02/19 continue tx. 02/20 continue tx. 02/21 continue tx. 02/22: Continue current plans and regimen 02/23: Continue current plans and regimen 02/24 continue tx 02/25 continue tx. Reason for continued inpatient stay Substantial Risk for: inability to function Time Spent With Patient Time: Total time managing care of this patient today ____ minutes.
[2023-02-25 18:00] VITALS: BP 152/72; PULSE 61; RESP 16; TEMP 36.3; O2SAT 95
[2023-02-25] MEDS: Gabapentin 600 MG TABLET 1200 MG PO (20:42)
[2023-02-25] MEDS: Valsartan 80 MG TABLET PO (20:42)
[2023-02-25] MEDS: traZODone HCL 50 MG TABLET PO (20:43)
[2023-02-25] MEDS: Atorvastatin Calcium 20 MG TABLET PO (20:43)
[2023-02-25] MEDS: Donepezil HCl 10 MG TABLET PO (20:44)
[2023-02-25] MEDS: Insulin Glargine,Hum.rec.anlog 100 UNIT/ML 10 ML VIAL 47 UNIT SUBCUT (20:46)
[2023-02-25] MEDS: Divalproex Sodium 500 MG TABLET.DR PO (20:55)
[2023-02-26] MEDS: QUEtiapine Fumarate 50 MG TABLET PO (00:10)
[2023-02-26] MEDS: Levothyroxine Sodium 75 MCG TABLET PO (06:26)
[2023-02-26 07:45] LABS: Glucose, Whole Blood 271 mg/dL (60-115)
[2023-02-26 07:45] LABS: Glucose, Whole Blood 100 mg/dL (60-115)
--- NOTE | 2023-02-26 08:47 | HO.PSYCHPN ---
Subjective Subjective Date of Service: 02/26/23 Reason For Visit: Depression Subjective Notes: Conditional Voluntary Healthcare Proxy: Yes Interim History: Pt continues to be visible on the unit, attending groups. She is sleeping and eating well. No SI/HI. No aggression towards self or others. Pt is pleasant. She denies physical pain. Review of Systems Review of Systems nothing acute Yes all other systems are reviewed and are negative Mental Status Exam Mental Status Exam Patient Appearance: Appropriate Patient Orientation: Person and Situation Level of Consciousness: Awake and Appropriate Patient Behavior: Guarded and Passive Mood Description: Withdrawn Affect Description: Constricted Patient Cognition Impaired: Yes Ability to Follow Directions: Fair Speech Pattern: Clear Diagnostics Vital Signs (24Hr): Vital Signs - 24 hr 02/25/23 18:00 Temperature 97.3 F Pulse Rate 61 Respiratory Rate 16 Blood Pressure 152/72 H Pulse Oximetry 95 Oxygen Delivery Method Room Air BMI result Body Mass Index 28.5 Labs 01/07/23 17:49 01/07/23 17:49 Labs: Laboratory Results - last 48 hr 02/24/23 02/24/23 02/24/23 11:25 16:23 19:53 POC Glucose 236 H 264 H 229 H 02/25/23 02/25/23 02/25/23 05:11 11:11 16:10 POC Glucose 105 343 H 206 H 02/25/23 02/26/23 19:46 06:28 POC Glucose 271 H 100 Imaging Radiology Impressions: ITS Impressions Venous Duplex 01/30/23 16:02 IMPRESSION: No DVT demonstrated in the bilateral lower extremity. Medications Medications Current Medications Acetaminophen (Acetaminophen 325 Mg Tablet) 650 mg PO Q6H PRN PRN Reason: Headache/Pain Mild Scale (1-3) Last Admin: 02/25/23 09:48 Dose: 650 mg Al Hydroxide/Mg Hydroxide (Magnesium Hydrox/Alum Hydrox 30 Ml Oral.Susp) 30 ml PO Q6H PRN PRN Reason: Heartburn/Nausea Last Admin: 02/10/23 22:17 Dose: 30 ml Atorvastatin Calcium (Atorvastatin Calcium 20 Mg Tablet) 20 mg PO BEDTIME [facility] Last Admin: 02/25/23 20:43 Dose: 20 mg Bisacodyl (Bisacodyl 10 Mg Supp.Rect) 10 mg [place] DAILY PRN PRN Reason: Constipation Clopidogrel Bisulfate (Clopidogrel Bisulfate 75 Mg Tablet) 75 mg PO DAILY [facility] Last Admin: 02/25/23 08:33 Dose: 75 mg Divalproex Sodium (Divalproex Sodium 500 Mg Tablet.) 500 mg PO BEDTIME [facility] Last Admin: 02/25/23 20:55 Dose: 500 mg Divalproex Sodium (Divalproex Sodium 250 Mg Tablet.) 250 mg PO DAILY [facility] Last Admin: 02/25/23 08:33 Dose: 250 mg Donepezil HCl (Donepezil Hcl 10 Mg Tablet) 10 mg PO BEDTIME [facility] Last Admin: 02/25/23 20:44 Dose: 10 mg Escitalopram Oxalate (Escitalopram Oxalate 10 Mg Tablet) 10 mg PO DAILY [facility] Last Admin: 02/25/23 08:33 Dose: 10 mg Gabapentin (Gabapentin 600 Mg Tablet) 1,200 mg PO BEDTIME [facility] Last Admin: 02/25/23 20:42 Dose: 1,200 mg Glucagon (Glucagon Hcl 1 Mg Vial) 1 mg SUBCUT Q20M PRN PRN Reason: BG <70 AND UNRESPONSIVE Glucose (Glucose Gel 15 Gm Gel..Gram.) 15 gm PO Q15M PRN PRN Reason: BG <70 AND RESPONSIVE Last Admin: 01/30/23 03:12 Dose: 15 gm Insulin Glargine (Insulin Glargine,Hum.Rec.Anlog 100 Unit/Ml 10 Ml Vial) 47 unit SUBCUT BEDTIME [facility] Last Admin: 02/25/23 20:46 Dose: 47 unit Insulin Human Lispro (Insulin Lispro 100 Unit/Ml 3 Ml Vial) 0 unit SUBCUT TIDAC [facility]; Protocol Last Admin: 02/26/23 07:44 Dose: Not Given Levothyroxine Sodium (Levothyroxine Sodium 75 Mcg Tablet) 75 mcg PO DAILY@0630 [facility] Last Admin: 02/26/23 06:26 Dose: 75 mcg Lidocaine (Lidocaine 4 % Patch Adh..Patch) 1 patch TRANSDERMA DAILY [facility]; Protocol Last Admin: 02/25/23 08:33 Dose: 1 patch Loperamide HCl (Loperamide Hcl 2 Mg Capsule) 2 mg PO Q6H PRN PRN Reason: diarrhea Last Admin: 02/19/23 11:09 Dose: 2 mg Magnesium Hydroxide (Milk Of Magnesia 30 Ml Oral.Susp) 30 ml PO DAILY PRN PRN Reason: Constipation Magnesium Hydroxide (Milk Of Magnesia 30 Ml Oral.Susp) 30 ml PO DAILY PRN PRN Reason: Constipation Memantine (Memantine Hcl 10 Mg Tablet) 10 mg PO BID [facility] Last Admin: 02/25/23 20:43 Dose: 10 mg Metoprolol Tartrate (Metoprolol Tartrate 25 Mg Tablet) 25 mg PO DAILY [facility]; Protocol Last Admin: 02/25/23 08:33 Dose: 25 mg Quetiapine Fumarate (Quetiapine Fumarate 50 Mg Tablet) 50 mg PO Q6H PRN PRN Reason: agitation Last Admin: 02/26/23 00:10 Dose: 50 mg Sodium Biphosphate/Sodium Phosphate (Sodium Phosphate,[place]-Dibasic 133 Ml Enema) 133 ml [place] DAILY PRN PRN Reason: Constipation Trazodone HCl (Trazodone Hcl 50 Mg Tablet) 50 mg PO BEDTIME PRN PRN Reason: Insomnia Last Admin: 02/25/23 20:43 Dose: 50 mg Valsartan (Valsartan 80 Mg Tablet) 80 mg PO BEDTIME [facility]; Protocol Last Admin: 02/25/23 20:42 Dose: 80 mg Allergies Allergies Allergy/AdvReac Type Severity Reaction Status Date / Time aspirin [ASPIRIN] Allergy Unknown UNKNOWN Verified 01/01/23 09:43 Assessment & Plan Assessment & Plan (1) Major neurocognitive disorder: Status: Acute Code(s): F03.90 - Unspecified dementia, unspecified severity, without behavioral disturbance, psychotic disturbance, mood disturbance, and anxiety (2) Mood disorder: Status: Acute Code(s): F39 - Unspecified mood [affective] disorder Plan Ms. Landis is a 67 year-old woman with hx of Mood Disorder (untreated for most of her life) and neurocognitive disorder who was brought via EMS from [facility] due to increase verbal aggression towards roommate and one of their staff. Pt is known to this radio news writer through previous assessment for similar presentation. Pt presents as calmer, she does admit to being verbally abusive, although denies any intent to harm self or others. She does lack the insight into how her behaviors affect others and her relationships with others. This tendency to have difficulty seeing other people's need per daughter has been life long. Pt presents with tendency to be irritable, at times explosive but not physically aggressive. She was started back in September on low dose of seroquel but no further medication adjustments have been made to manage these symptoms, which are disruptive but not life threatening nor at imminent risk of harm to self or others. As consequence of minimal intervention in the community, pt has had more frequent ED visits here and at [facility]. We discussed risks, benefits and alternative treatment options, pt agrees to start mood stabilizer for impulsive, explosive behaviors. We also discussed switching seroquel to risperidone. Pt is orientation has been intact all along. PLAN 01/20 schedule trazodone 50mg po qhs for sleep. 01/21 continue tx. depakote levels scheduled for tomorrow AM with ammonia levels. 01/22 trough depakote level 75, ammonia 41. continue tx. continue tx 01/24 continue tx. 01/25 continue tx. 01/26 continue tx. 01/27: continue current mgmt. 01/28: continue current mgmt. 01/29 continue tx. 01/30 continue tx. 01/31 continues tx-continue monitor bilat LE- doppler did not show DVT. 02/01: No change in medications, continue current plan of care. 02/02: Continue current plan. 02/03: Continue current plans and regimen 02/04 continue tx. 02/05 continue tx. 02/06 continue tx. 02/07 continue tx. 02/09: no changes 02/10 continue tx. 02/11 continue tx. 02/12 continue tx. 02/13 continue tx. 02/14 continue tx. awaiting placement. 02/15: Continue current treatment plan. 02/16: Continue current plan. 02/17 continue tx. 02/18 continue tx. 02/19 continue tx. 02/20 continue tx. 02/21 continue tx. 02/22: Continue current plans and regimen 02/23: Continue current plans and regimen 02/24 continue tx 02/25 continue tx. 02/26 continue tx. Reason for continued inpatient stay Substantial Risk for: inability to function Time Spent With Patient Time: Total time managing care of this patient today ____ minutes.
[2023-02-26 11:39] LABS: Glucose, Whole Blood 388 mg/dL (60-115)
--- NOTE | 2023-02-26 11:41 | PC.NURSE ---
Shae's POC bs was 388 on 02/26/23 at 11:33, provider Violeta Perez notified.
[2023-02-26 11:48] VITALS: BP 124/63; PULSE 64; RESP 18; TEMP 36.2; O2SAT 95
[2023-02-26] MEDS: Lidocaine 4 % Patch ADH..PATCH 1 PATCH TRANSDERMA (12:04)
[2023-02-26] MEDS: Insulin Lispro 100 UNIT/ML 3 ML VIAL SUBCUT ×2 (12:06→17:16)
[2023-02-26] MEDS: Escitalopram Oxalate 10 MG TABLET PO (12:07)
[2023-02-26] MEDS: Clopidogrel Bisulfate 75 MG TABLET PO (12:07)
[2023-02-26] MEDS: Metoprolol Tartrate 25 MG TABLET PO (12:07)
[2023-02-26] MEDS: Memantine HCl 10 MG TABLET PO ×2 (12:07→20:34)
[2023-02-26] MEDS: Divalproex Sodium 250 MG TABLET.DR PO (12:07)
[2023-02-26 16:41] LABS: Glucose, Whole Blood 200 mg/dL (60-115)
[2023-02-26 18:00] VITALS: BP 170/74; PULSE 63; RESP 17; TEMP 36.6; O2SAT 97
[2023-02-26] MEDS: Atorvastatin Calcium 20 MG TABLET PO (20:34)
[2023-02-26] MEDS: Valsartan 80 MG TABLET PO (20:34)
[2023-02-26] MEDS: Donepezil HCl 10 MG TABLET PO (20:34)
[2023-02-26] MEDS: traZODone HCL 50 MG TABLET PO (20:34)
[2023-02-26] MEDS: Divalproex Sodium 500 MG TABLET.DR PO (20:34)
[2023-02-26] MEDS: Gabapentin 600 MG TABLET 1200 MG PO (20:35)
[2023-02-26] MEDS: Insulin Glargine,Hum.rec.anlog 100 UNIT/ML 10 ML VIAL 47 UNIT SUBCUT (20:36)
[2023-02-27] MEDS: Levothyroxine Sodium 75 MCG TABLET PO (06:35)
[2023-02-27 07:03] LABS: Glucose, Whole Blood 278 mg/dL (60-115)
[2023-02-27 07:03] LABS: Glucose, Whole Blood 163 mg/dL (60-115)
[2023-02-27 08:42] VITALS: BP 109/56; PULSE 65; RESP 16; TEMP 36.7; O2SAT 95
[2023-02-27] MEDS: Clopidogrel Bisulfate 75 MG TABLET PO (08:46)
[2023-02-27] MEDS: Divalproex Sodium 250 MG TABLET.DR PO (08:46)
[2023-02-27] MEDS: Memantine HCl 10 MG TABLET PO ×2 (08:46→20:40)
[2023-02-27] MEDS: Metoprolol Tartrate 25 MG TABLET PO (08:46)
[2023-02-27] MEDS: Lidocaine 4 % Patch ADH..PATCH 1 PATCH TRANSDERMA (08:46)
[2023-02-27] MEDS: Escitalopram Oxalate 10 MG TABLET PO (08:46)
--- NOTE | 2023-02-27 08:48 | HO.PSYCHPN ---
Subjective Subjective Date of Service: 02/27/23 Reason For Visit: Depression Subjective Notes: Conditional Voluntary Interim History: Pt continues to be visible on the unit, attending groups. She is sleeping and eating well. No SI/HI. No aggression towards self or others. Pt is pleasant. She denies physical pain. Ambulating with walker. Review of Systems Review of Systems nothing acute Yes all other systems are reviewed and are negative Mental Status Exam Mental Status Exam Patient Appearance: Appropriate Patient Orientation: Person and Situation Level of Consciousness: Awake and Appropriate Patient Behavior: Guarded and Passive Mood Description: Withdrawn Affect Description: Constricted Patient Cognition Impaired: Yes Ability to Follow Directions: Fair Speech Pattern: Clear Diagnostics Vital Signs (24Hr): Vital Signs - 24 hr 02/26/23 11:48 02/26/23 18:00 02/27/23 08:42 Temperature 97.2 F 97.8 F 98.1 F Pulse Rate 64 63 65 Respiratory Rate 18 17 16 Blood Pressure 124/63 170/74 H 109/56 L Pulse Oximetry 95 97 95 Oxygen Delivery Method Room Air Room Air Room Air BMI result Body Mass Index 28.5 Labs 01/07/23 17:49 01/07/23 17:49 Labs: Laboratory Results - last 48 hr 02/25/23 02/25/23 02/25/23 05:11 11:11 16:10 POC Glucose 105 343 H 206 H 02/25/23 02/26/23 02/26/23 19:46 06:28 11:33 POC Glucose 271 H 100 388 H* 02/26/23 02/26/23 02/27/23 16:24 19:35 06:39 POC Glucose 200 H 278 H 163 H Imaging Radiology Impressions: ITS Impressions Venous Duplex 01/30/23 16:02 IMPRESSION: No DVT demonstrated in the bilateral lower extremity. Medications Medications Current Medications Acetaminophen (Acetaminophen 325 Mg Tablet) 650 mg PO Q6H PRN PRN Reason: Headache/Pain Mild Scale (1-3) Last Admin: 02/25/23 09:48 Dose: 650 mg Al Hydroxide/Mg Hydroxide (Magnesium Hydrox/Alum Hydrox 30 Ml Oral.Susp) 30 ml PO Q6H PRN PRN Reason: Heartburn/Nausea Last Admin: 02/10/23 22:17 Dose: 30 ml Atorvastatin Calcium (Atorvastatin Calcium 20 Mg Tablet) 20 mg PO BEDTIME [facility] Last Admin: 02/26/23 20:34 Dose: 20 mg Bisacodyl (Bisacodyl 10 Mg Supp.Rect) 10 mg [place] DAILY PRN PRN Reason: Constipation Clopidogrel Bisulfate (Clopidogrel Bisulfate 75 Mg Tablet) 75 mg PO DAILY [facility] Last Admin: 02/26/23 12:07 Dose: 75 mg Divalproex Sodium (Divalproex Sodium 500 Mg Tablet.Dr) 500 mg PO BEDTIME [facility] Last Admin: 02/26/23 20:34 Dose: 500 mg Divalproex Sodium (Divalproex Sodium 250 Mg Tablet.) 250 mg PO DAILY [facility] Last Admin: 02/26/23 12:07 Dose: 250 mg Donepezil HCl (Donepezil Hcl 10 Mg Tablet) 10 mg PO BEDTIME [facility] Last Admin: 02/26/23 20:34 Dose: 10 mg Escitalopram Oxalate (Escitalopram Oxalate 10 Mg Tablet) 10 mg PO DAILY [facility] Last Admin: 02/26/23 12:07 Dose: 10 mg Gabapentin (Gabapentin 600 Mg Tablet) 1,200 mg PO BEDTIME [facility] Last Admin: 02/26/23 20:35 Dose: 1,200 mg Glucagon (Glucagon Hcl 1 Mg Vial) 1 mg SUBCUT Q20M PRN PRN Reason: BG <70 AND UNRESPONSIVE Glucose (Glucose Gel 15 Gm Gel..Gram.) 15 gm PO Q15M PRN PRN Reason: BG <70 AND RESPONSIVE Last Admin: 01/30/23 03:12 Dose: 15 gm Insulin Glargine (Insulin Glargine,Hum.Rec.Anlog 100 Unit/Ml 10 Ml Vial) 47 unit SUBCUT BEDTIME [facility] Last Admin: 02/26/23 20:36 Dose: 47 unit Insulin Human Lispro (Insulin Lispro 100 Unit/Ml 3 Ml Vial) 0 unit SUBCUT TIDAC [facility]; Protocol Last Admin: 02/26/23 17:16 Dose: 4 unit Levothyroxine Sodium (Levothyroxine Sodium 75 Mcg Tablet) 75 mcg PO DAILY@0630 [facility] Last Admin: 02/27/23 06:35 Dose: 75 mcg Lidocaine (Lidocaine 4 % Patch Adh..Patch) 1 patch TRANSDERMA DAILY [facility]; Protocol Last Admin: 02/26/23 12:04 Dose: 1 patch Loperamide HCl (Loperamide Hcl 2 Mg Capsule) 2 mg PO Q6H PRN PRN Reason: diarrhea Last Admin: 02/19/23 11:09 Dose: 2 mg Magnesium Hydroxide (Milk Of Magnesia 30 Ml Oral.Susp) 30 ml PO DAILY PRN PRN Reason: Constipation Magnesium Hydroxide (Milk Of Magnesia 30 Ml Oral.Susp) 30 ml PO DAILY PRN PRN Reason: Constipation Memantine (Memantine Hcl 10 Mg Tablet) 10 mg PO BID [facility] Last Admin: 02/26/23 20:34 Dose: 10 mg Metoprolol Tartrate (Metoprolol Tartrate 25 Mg Tablet) 25 mg PO DAILY [facility]; Protocol Last Admin: 02/26/23 12:07 Dose: 25 mg Quetiapine Fumarate (Quetiapine Fumarate 50 Mg Tablet) 50 mg PO Q6H PRN PRN Reason: agitation Last Admin: 02/26/23 00:10 Dose: 50 mg Sodium Biphosphate/Sodium Phosphate (Sodium Phosphate,[place]-Dibasic 133 Ml Enema) 133 ml [place] DAILY PRN PRN Reason: Constipation Trazodone HCl (Trazodone Hcl 50 Mg Tablet) 50 mg PO BEDTIME PRN PRN Reason: Insomnia Last Admin: 02/26/23 20:34 Dose: 50 mg Valsartan (Valsartan 80 Mg Tablet) 80 mg PO BEDTIME [facility]; Protocol Last Admin: 02/26/23 20:34 Dose: 80 mg Allergies Allergies Allergy/AdvReac Type Severity Reaction Status Date / Time aspirin [ASPIRIN] Allergy Unknown UNKNOWN Verified 01/01/23 09:43 Assessment & Plan Assessment & Plan (1) Major neurocognitive disorder: Status: Acute Code(s): F03.90 - Unspecified dementia, unspecified severity, without behavioral disturbance, psychotic disturbance, mood disturbance, and anxiety (2) Mood disorder: Status: Acute Code(s): F39 - Unspecified mood [affective] disorder Plan Ms. Landis is a 67 year-old woman with hx of Mood Disorder (untreated for most of her life) and neurocognitive disorder who was brought via EMS from [facility] due to increase verbal aggression towards roommate and one of their staff. Pt is known to this telegraphic typewriter mechanic through previous assessment for similar presentation. Pt presents as calmer, she does admit to being verbally abusive, although denies any intent to harm self or others. She does lack the insight into how her behaviors affect others and her relationships with others. This tendency to have difficulty seeing other people's need per daughter has been life long. Pt presents with tendency to be irritable, at times explosive but not physically aggressive. She was started back in September on low dose of seroquel but no further medication adjustments have been made to manage these symptoms, which are disruptive but not life threatening nor at imminent risk of harm to self or others. As consequence of minimal intervention in the community, pt has had more frequent ED visits here and at [facility]. We discussed risks, benefits and alternative treatment options, pt agrees to start mood stabilizer for impulsive, explosive behaviors. We also discussed switching seroquel to risperidone. Pt is orientation has been intact all along. PLAN 01/20 schedule trazodone 50mg po qhs for sleep. 01/21 continue tx. depakote levels scheduled for tomorrow AM with ammonia levels. 01/22 trough depakote level 75, ammonia 41. continue tx. continue tx 01/24 continue tx. 01/25 continue tx. 01/26 continue tx. 01/27: continue current mgmt. 01/28: continue current mgmt. 01/29 continue tx. 01/30 continue tx. 01/31 continues tx-continue monitor bilat LE- doppler did not show DVT. 02/01: No change in medications, continue current plan of care. 02/02: Continue current plan. 02/03: Continue current plans and regimen 02/04 continue tx. 02/05 continue tx. 02/06 continue tx. 02/07 continue tx. 02/09: no changes 02/10 continue tx. 02/11 continue tx. 02/12 continue tx. 02/13 continue tx. 02/14 continue tx. awaiting placement. 02/15: Continue current treatment plan. 02/16: Continue current plan. 02/17 continue tx. 02/18 continue tx. 02/19 continue tx. 02/20 continue tx. 02/21 continue tx. 02/22: Continue current plans and regimen 02/23: Continue current plans and regimen 02/24 continue tx 02/25 continue tx. 02/26 continue tx. 02/27 continue tx. Reason for continued inpatient stay Substantial Risk for: inability to function Time Spent With Patient Time: Total time managing care of this patient today ____ minutes.
[2023-02-27] MEDS: Insulin Lispro 100 UNIT/ML 3 ML VIAL SUBCUT ×3 (08:51→16:24)
[2023-02-27 11:42] LABS: Glucose, Whole Blood 217 mg/dL (60-115)
[2023-02-27 16:14] LABS: Glucose, Whole Blood 294 mg/dL (60-115)
[2023-02-27 20:02] VITALS: BP 159/65; PULSE 59; RESP 16; TEMP 35.8; O2SAT 96
[2023-02-27] MEDS: Valsartan 80 MG TABLET PO (20:39)
[2023-02-27] MEDS: Donepezil HCl 10 MG TABLET PO (20:39)
[2023-02-27] MEDS: Insulin Glargine,Hum.rec.anlog 100 UNIT/ML 10 ML VIAL 47 UNIT SUBCUT (20:39)
[2023-02-27] MEDS: Gabapentin 600 MG TABLET 1200 MG PO (20:40)
[2023-02-27] MEDS: Atorvastatin Calcium 20 MG TABLET PO (20:40)
[2023-02-27] MEDS: traZODone HCL 50 MG TABLET PO (20:40)
[2023-02-27] MEDS: Divalproex Sodium 500 MG TABLET.DR PO (20:40)
[2023-02-28 00:23] LABS: Glucose, Whole Blood 211 mg/dL (60-115)
[2023-02-28] MEDS: Levothyroxine Sodium 75 MCG TABLET PO (06:31)
[2023-02-28 06:50] LABS: Glucose, Whole Blood 138 mg/dL (60-115)
[2023-02-28 08:23] VITALS: BP 124/73; PULSE 102; RESP 18; TEMP 36.4; O2SAT 97
[2023-02-28] MEDS: Clopidogrel Bisulfate 75 MG TABLET PO (08:24)
[2023-02-28] MEDS: Divalproex Sodium 250 MG TABLET.DR PO (08:24)
[2023-02-28] MEDS: Metoprolol Tartrate 25 MG TABLET PO (08:25)
[2023-02-28] MEDS: Escitalopram Oxalate 10 MG TABLET PO (08:25)
[2023-02-28] MEDS: Lidocaine 4 % Patch ADH..PATCH 1 PATCH TRANSDERMA (08:25)
[2023-02-28] MEDS: Memantine HCl 10 MG TABLET PO ×2 (08:25→20:30)
--- NOTE | 2023-02-28 09:04 | HO.PSYCHPN ---
Subjective Subjective Date of Service: 02/28/23 Reason For Visit: Depression Subjective Notes: Conditional Voluntary Healthcare Proxy: Yes Interim History: Pt continues to be visible on the unit, attending groups. She is sleeping and eating well. No SI/HI. No aggression towards self or others. Pt is pleasant and smiles as she talks with this administrative underwriter. She denies physical pain. Ambulating with walker. Review of Systems Review of Systems nothing acute Yes all other systems are reviewed and are negative Mental Status Exam Mental Status Exam Patient Appearance: Appropriate Patient Orientation: Person and Situation Level of Consciousness: Awake and Appropriate Patient Behavior: Guarded and Passive Mood Description: Withdrawn Affect Description: Constricted Patient Cognition Impaired: Yes Ability to Follow Directions: Fair Speech Pattern: Clear Diagnostics Vital Signs (24Hr): Vital Signs - 24 hr 02/27/23 20:02 02/28/23 08:23 Temperature 96.4 F L 97.6 F Pulse Rate 59 102 H Respiratory Rate 16 18 Blood Pressure 159/65 H 124/73 Pulse Oximetry 96 97 Oxygen Delivery Method Room Air Room Air BMI result Body Mass Index 28.5 Labs 01/07/23 17:49 01/07/23 17:49 Labs: Laboratory Results - last 48 hr 02/26/23 02/26/23 02/26/23 11:33 16:24 19:35 POC Glucose 388 H* 200 H 278 H 02/27/23 02/27/23 02/27/23 06:39 11:31 16:02 POC Glucose 163 H 217 H 294 H 02/27/23 02/28/23 20:05 06:32 POC Glucose 211 H 138 H Imaging Radiology Impressions: ITS Impressions Venous Duplex 01/30/23 16:02 IMPRESSION: No DVT demonstrated in the bilateral lower extremity. Medications Medications Current Medications Acetaminophen (Acetaminophen 325 Mg Tablet) 650 mg PO Q6H PRN PRN Reason: Headache/Pain Mild Scale (1-3) Last Admin: 02/25/23 09:48 Dose: 650 mg Al Hydroxide/Mg Hydroxide (Magnesium Hydrox/Alum Hydrox 30 Ml Oral.Susp) 30 ml PO Q6H PRN PRN Reason: Heartburn/Nausea Last Admin: 02/10/23 22:17 Dose: 30 ml Atorvastatin Calcium (Atorvastatin Calcium 20 Mg Tablet) 20 mg PO BEDTIME [facility] Last Admin: 02/27/23 20:40 Dose: 20 mg Bisacodyl (Bisacodyl 10 Mg Supp.Rect) 10 mg [place] DAILY PRN PRN Reason: Constipation Clopidogrel Bisulfate (Clopidogrel Bisulfate 75 Mg Tablet) 75 mg PO DAILY [facility] Last Admin: 02/28/23 08:24 Dose: 75 mg Divalproex Sodium (Divalproex Sodium 500 Mg Tablet.Dr) 500 mg PO BEDTIME [facility] Last Admin: 02/27/23 20:40 Dose: 500 mg Divalproex Sodium (Divalproex Sodium 250 Mg Tablet.Dr) 250 mg PO DAILY [facility] Last Admin: 02/28/23 08:24 Dose: 250 mg Donepezil HCl (Donepezil Hcl 10 Mg Tablet) 10 mg PO BEDTIME [facility] Last Admin: 02/27/23 20:39 Dose: 10 mg Escitalopram Oxalate (Escitalopram Oxalate 10 Mg Tablet) 10 mg PO DAILY [facility] Last Admin: 02/28/23 08:25 Dose: 10 mg Gabapentin (Gabapentin 600 Mg Tablet) 1,200 mg PO BEDTIME [facility] Last Admin: 02/27/23 20:40 Dose: 1,200 mg Glucagon (Glucagon Hcl 1 Mg Vial) 1 mg SUBCUT Q20M PRN PRN Reason: BG <70 AND UNRESPONSIVE Glucose (Glucose Gel 15 Gm Gel..Gram.) 15 gm PO Q15M PRN PRN Reason: BG <70 AND RESPONSIVE Last Admin: 01/30/23 03:12 Dose: 15 gm Insulin Glargine (Insulin Glargine,Hum.Rec.Anlog 100 Unit/Ml 10 Ml Vial) 47 unit SUBCUT BEDTIME [facility] Last Admin: 02/27/23 20:39 Dose: 47 unit Insulin Human Lispro (Insulin Lispro 100 Unit/Ml 3 Ml Vial) 0 unit SUBCUT TIDAC [facility]; Protocol Last Admin: 02/28/23 08:52 Dose: Not Given Levothyroxine Sodium (Levothyroxine Sodium 75 Mcg Tablet) 75 mcg PO DAILY@0630 [facility] Last Admin: 02/28/23 06:31 Dose: 75 mcg Lidocaine (Lidocaine 4 % Patch Adh..Patch) 1 patch TRANSDERMA DAILY [facility]; Protocol Last Admin: 02/28/23 08:25 Dose: 1 patch Loperamide HCl (Loperamide Hcl 2 Mg Capsule) 2 mg PO Q6H PRN PRN Reason: diarrhea Last Admin: 02/19/23 11:09 Dose: 2 mg Magnesium Hydroxide (Milk Of Magnesia 30 Ml Oral.Susp) 30 ml PO DAILY PRN PRN Reason: Constipation Magnesium Hydroxide (Milk Of Magnesia 30 Ml Oral.Susp) 30 ml PO DAILY PRN PRN Reason: Constipation Memantine (Memantine Hcl 10 Mg Tablet) 10 mg PO BID [facility] Last Admin: 02/28/23 08:25 Dose: 10 mg Metoprolol Tartrate (Metoprolol Tartrate 25 Mg Tablet) 25 mg PO DAILY [facility]; Protocol Last Admin: 02/28/23 08:25 Dose: 25 mg Quetiapine Fumarate (Quetiapine Fumarate 50 Mg Tablet) 50 mg PO Q6H PRN PRN Reason: agitation Last Admin: 02/26/23 00:10 Dose: 50 mg Sodium Biphosphate/Sodium Phosphate (Sodium Phosphate,[place]-Dibasic 133 Ml Enema) 133 ml [place] DAILY PRN PRN Reason: Constipation Trazodone HCl (Trazodone Hcl 50 Mg Tablet) 50 mg PO BEDTIME PRN PRN Reason: Insomnia Last Admin: 02/27/23 20:40 Dose: 50 mg Valsartan (Valsartan 80 Mg Tablet) 80 mg PO BEDTIME [facility]; Protocol Last Admin: 02/27/23 20:39 Dose: 80 mg Allergies Allergies Allergy/AdvReac Type Severity Reaction Status Date / Time aspirin [ASPIRIN] Allergy Unknown UNKNOWN Verified 01/01/23 09:43 Assessment & Plan Assessment & Plan (1) Major neurocognitive disorder: Status: Acute Code(s): F03.90 - Unspecified dementia, unspecified severity, without behavioral disturbance, psychotic disturbance, mood disturbance, and anxiety (2) Mood disorder: Status: Acute Code(s): F39 - Unspecified mood [affective] disorder Plan Ms. Landis is a 67 year-old woman with hx of Mood Disorder (untreated for most of her life) and neurocognitive disorder who was brought via EMS from [facility] due to increase verbal aggression towards roommate and one of their staff. Pt is known to this administrative underwriter through previous assessment for similar presentation. Pt presents as calmer, she does admit to being verbally abusive, although denies any intent to harm self or others. She does lack the insight into how her behaviors affect others and her relationships with others. This tendency to have difficulty seeing other people's need per daughter has been life long. Pt presents with tendency to be irritable, at times explosive but not physically aggressive. She was started back in September on low dose of seroquel but no further medication adjustments have been made to manage these symptoms, which are disruptive but not life threatening nor at imminent risk of harm to self or others. As consequence of minimal intervention in the community, pt has had more frequent ED visits here and at [facility]. We discussed risks, benefits and alternative treatment options, pt agrees to start mood stabilizer for impulsive, explosive behaviors. We also discussed switching seroquel to risperidone. Pt is orientation has been intact all along. PLAN 01/20 schedule trazodone 50mg po qhs for sleep. 01/21 continue tx. depakote levels scheduled for tomorrow AM with ammonia levels. 01/22 trough depakote level 75, ammonia 41. continue tx. continue tx 01/24 continue tx. 01/25 continue tx. 01/26 continue tx. 01/27: continue current mgmt. 01/28: continue current mgmt. 01/29 continue tx. 01/30 continue tx. 01/31 continues tx-continue monitor bilat LE- doppler did not show DVT. 02/01: No change in medications, continue current plan of care. 02/02: Continue current plan. 02/03: Continue current plans and regimen 02/04 continue tx. 02/05 continue tx. 02/06 continue tx. 02/07 continue tx. 02/09: no changes 02/10 continue tx. 02/11 continue tx. 02/12 continue tx. 02/13 continue tx. 02/14 continue tx. awaiting placement. 02/15: Continue current treatment plan. 02/16: Continue current plan. 02/17 continue tx. 02/18 continue tx. 02/19 continue tx. 02/20 continue tx. 02/21 continue tx. 02/22: Continue current plans and regimen 02/23: Continue current plans and regimen 02/24 continue tx 02/25 continue tx. 02/26 continue tx. 02/27 continue tx. 02/28 continue tx. Reason for continued inpatient stay Substantial Risk for: inability to function Time Spent With Patient Time: Total time managing care of this patient today ____ minutes.
[2023-02-28 11:55] LABS: Glucose, Whole Blood 233 mg/dL (60-115)
[2023-02-28] MEDS: Insulin Lispro 100 UNIT/ML 3 ML VIAL SUBCUT ×2 (12:11→17:09)
[2023-02-28 16:28] LABS: Glucose, Whole Blood 255 mg/dL (60-115)
[2023-02-28 18:00] VITALS: BP 130/60; PULSE 63; RESP 16; TEMP 36.8; O2SAT 96
[2023-02-28] MEDS: Atorvastatin Calcium 20 MG TABLET PO (20:29)
[2023-02-28] MEDS: Divalproex Sodium 500 MG TABLET.DR PO (20:30)
[2023-02-28] MEDS: traZODone HCL 50 MG TABLET PO (20:30)
[2023-02-28] MEDS: Gabapentin 600 MG TABLET 1200 MG PO (20:30)
[2023-02-28] MEDS: Valsartan 80 MG TABLET PO (20:30)
[2023-02-28] MEDS: Donepezil HCl 10 MG TABLET PO (20:30)
[2023-02-28] MEDS: Insulin Glargine,Hum.rec.anlog 100 UNIT/ML 10 ML VIAL 47 UNIT SUBCUT (20:31)
[2023-02-28 23:40] LABS: Glucose, Whole Blood 187 mg/dL (60-115)
[2023-03-01] MEDS: Levothyroxine Sodium 75 MCG TABLET PO (06:34)
[2023-03-01 06:51] LABS: Glucose, Whole Blood 120 mg/dL (60-115)
--- NOTE | 2023-03-01 09:06 | HO.PSYCHPN ---
Subjective Subjective Date of Service: 03/01/23 Reason For Visit: Depression Subjective Notes: Conditional Voluntary Interim History: The nursing staff reported no changes in her mental status, she remains withdrawn and flat but fully compliant with treatment. She slept all night with trazodone. On interview the patient denies new symptoms, waiting for placement. Mental Status Exam Mental Status Exam Patient Appearance: Well Grooomed and Appropriate Patient Orientation: Person and Situation Level of Consciousness: Awake and Appropriate Patient Behavior: Guarded and Passive Mood Description: Withdrawn Affect Description: Blunted Patient Cognition Impaired: Yes Ability to Follow Directions: Good Speech Pattern: Clear Hallucinations: None Delusions: Not Present Thought Process: Distracted Thought Content: positive for [place] and positive for Poverty of Content Judgement: Fair Diagnostics Vital Signs (24Hr): Vital Signs - 24 hr 02/28/23 18:00 Temperature 98.3 F Pulse Rate 63 Respiratory Rate 16 Blood Pressure 130/60 Pulse Oximetry 96 Oxygen Delivery Method Room Air BMI result Body Mass Index 28.5 Labs 01/07/23 17:49 01/07/23 17:49 Labs: Laboratory Results - last 48 hr 02/27/23 02/27/23 02/27/23 11:31 16:02 20:05 POC Glucose 217 H 294 H 211 H 02/28/23 02/28/23 02/28/23 06:32 11:40 16:13 POC Glucose 138 H 233 H 255 H 02/28/23 03/01/23 19:47 06:36 POC Glucose 187 H 120 H Imaging Radiology Impressions: ITS Impressions Venous Duplex 01/30/23 16:02 IMPRESSION: No DVT demonstrated in the bilateral lower extremity. Medications Medications Current Medications Acetaminophen (Acetaminophen 325 Mg Tablet) 650 mg PO Q6H PRN PRN Reason: Headache/Pain Mild Scale (1-3) Last Admin: 02/25/23 09:48 Dose: 650 mg Al Hydroxide/Mg Hydroxide (Magnesium Hydrox/Alum Hydrox 30 Ml Oral.Susp) 30 ml PO Q6H PRN PRN Reason: Heartburn/Nausea Last Admin: 02/10/23 22:17 Dose: 30 ml Atorvastatin Calcium (Atorvastatin Calcium 20 Mg Tablet) 20 mg PO BEDTIME [facility] Last Admin: 02/28/23 20:29 Dose: 20 mg Bisacodyl (Bisacodyl 10 Mg Supp.Rect) 10 mg [place] DAILY PRN PRN Reason: Constipation Clopidogrel Bisulfate (Clopidogrel Bisulfate 75 Mg Tablet) 75 mg PO DAILY [facility] Last Admin: 02/28/23 08:24 Dose: 75 mg Divalproex Sodium (Divalproex Sodium 500 Mg Tablet.) 500 mg PO BEDTIME [facility] Last Admin: 02/28/23 20:30 Dose: 500 mg Divalproex Sodium (Divalproex Sodium 250 Mg Tablet.) 250 mg PO DAILY [facility] Last Admin: 02/28/23 08:24 Dose: 250 mg Donepezil HCl (Donepezil Hcl 10 Mg Tablet) 10 mg PO BEDTIME [facility] Last Admin: 02/28/23 20:30 Dose: 10 mg Escitalopram Oxalate (Escitalopram Oxalate 10 Mg Tablet) 10 mg PO DAILY [facility] Last Admin: 02/28/23 08:25 Dose: 10 mg Gabapentin (Gabapentin 600 Mg Tablet) 1,200 mg PO BEDTIME [facility] Last Admin: 02/28/23 20:30 Dose: 1,200 mg Glucagon (Glucagon Hcl 1 Mg Vial) 1 mg SUBCUT Q20M PRN PRN Reason: BG <70 AND UNRESPONSIVE Glucose (Glucose Gel 15 Gm Gel..Gram.) 15 gm PO Q15M PRN PRN Reason: BG <70 AND RESPONSIVE Last Admin: 01/30/23 03:12 Dose: 15 gm Insulin Glargine (Insulin Glargine,Hum.Rec.Anlog 100 Unit/Ml 10 Ml Vial) 47 unit SUBCUT BEDTIME [facility] Last Admin: 02/28/23 20:31 Dose: 47 unit Insulin Human Lispro (Insulin Lispro 100 Unit/Ml 3 Ml Vial) 0 unit SUBCUT TIDAC [facility]; Protocol Last Admin: 03/01/23 09:05 Dose: Not Given Levothyroxine Sodium (Levothyroxine Sodium 75 Mcg Tablet) 75 mcg PO DAILY@0630 [facility] Last Admin: 03/01/23 06:34 Dose: 75 mcg Lidocaine (Lidocaine 4 % Patch Adh..Patch) 1 patch TRANSDERMA DAILY [facility]; Protocol Last Admin: 02/28/23 08:25 Dose: 1 patch Loperamide HCl (Loperamide Hcl 2 Mg Capsule) 2 mg PO Q6H PRN PRN Reason: diarrhea Last Admin: 02/19/23 11:09 Dose: 2 mg Magnesium Hydroxide (Milk Of Magnesia 30 Ml Oral.Susp) 30 ml PO DAILY PRN PRN Reason: Constipation Magnesium Hydroxide (Milk Of Magnesia 30 Ml Oral.Susp) 30 ml PO DAILY PRN PRN Reason: Constipation Memantine (Memantine Hcl 10 Mg Tablet) 10 mg PO BID [facility] Last Admin: 02/28/23 20:30 Dose: 10 mg Metoprolol Tartrate (Metoprolol Tartrate 25 Mg Tablet) 25 mg PO DAILY [facility]; Protocol Last Admin: 02/28/23 08:25 Dose: 25 mg Quetiapine Fumarate (Quetiapine Fumarate 50 Mg Tablet) 50 mg PO Q6H PRN PRN Reason: agitation Last Admin: 02/26/23 00:10 Dose: 50 mg Sodium Biphosphate/Sodium Phosphate (Sodium Phosphate,[place]-Dibasic 133 Ml Enema) 133 ml [place] DAILY PRN PRN Reason: Constipation Trazodone HCl (Trazodone Hcl 50 Mg Tablet) 50 mg PO BEDTIME PRN PRN Reason: Insomnia Last Admin: 02/28/23 20:30 Dose: 50 mg Valsartan (Valsartan 80 Mg Tablet) 80 mg PO BEDTIME [facility]; Protocol Last Admin: 02/28/23 20:30 Dose: 80 mg Allergies Allergies Allergy/AdvReac Type Severity Reaction Status Date / Time aspirin [ASPIRIN] Allergy Unknown UNKNOWN Verified 01/01/23 09:43 Assessment & Plan Assessment & Plan (1) Major neurocognitive disorder: Status: Acute Code(s): F03.90 - Unspecified dementia, unspecified severity, without behavioral disturbance, psychotic disturbance, mood disturbance, and anxiety (2) Mood disorder: Status: Acute Code(s): F39 - Unspecified mood [affective] disorder Plan Ms. Landis is a 67 year-old woman with hx of Mood Disorder (untreated for most of her life) and neurocognitive disorder who was brought via EMS from [facility] due to increase verbal aggression towards roommate and one of their staff. Pt is known to this content writer through previous assessment for similar presentation. Pt presents as calmer, she does admit to being verbally abusive, although denies any intent to harm self or others. She does lack the insight into how her behaviors affect others and her relationships with others. This tendency to have difficulty seeing other people's need per daughter has been life long. Pt presents with tendency to be irritable, at times explosive but not physically aggressive. She was started back in September on low dose of seroquel but no further medication adjustments have been made to manage these symptoms, which are disruptive but not life threatening nor at imminent risk of harm to self or others. As consequence of minimal intervention in the community, pt has had more frequent ED visits here and at [facility]. We discussed risks, benefits and alternative treatment options, pt agrees to start mood stabilizer for impulsive, explosive behaviors. We also discussed switching seroquel to risperidone. Pt is orientation has been intact all along. PLAN 01/20 schedule trazodone 50mg po qhs for sleep. 01/21 continue tx. depakote levels scheduled for tomorrow AM with ammonia levels. 01/22 trough depakote level 75, ammonia 41. continue tx. continue tx 01/24 continue tx. 01/25 continue tx. 01/26 continue tx. 01/27: continue current mgmt. 01/28: continue current mgmt. 01/29 continue tx. 01/30 continue tx. 01/31 continues tx-continue monitor bilat LE- doppler did not show DVT. 02/01: No change in medications, continue current plan of care. 02/02: Continue current plan. 02/03: Continue current plans and regimen 02/04 continue tx. 02/05 continue tx. 02/06 continue tx. 02/07 continue tx. 02/09: no changes 02/10 continue tx. 02/11 continue tx. 02/12 continue tx. 02/13 continue tx. 02/14 continue tx. awaiting placement. 02/15: Continue current treatment plan. 02/16: Continue current plan. 02/17 continue tx. 02/18 continue tx. 02/19 continue tx. 02/20 continue tx. 02/21 continue tx. 02/22: Continue current plans and regimen 02/23: Continue current plans and regimen 02/24 continue tx 02/25 continue tx. 02/26 continue tx. 02/27 continue tx. 02/28 continue tx. 03/01 continue same treatment Reason for continued inpatient stay Substantial Risk for: inability to function, rapid decompensation and med/psych decompensation Time Spent With Patient Time: Total time managing care of this patient today __20__ minutes.
[2023-03-01 10:01] VITALS: BP 136/65; PULSE 69; RESP 16; TEMP 36.6; O2SAT 94
[2023-03-01] MEDS: Metoprolol Tartrate 25 MG TABLET PO (10:45)
[2023-03-01] MEDS: Memantine HCl 10 MG TABLET PO ×2 (10:45→20:37)
[2023-03-01] MEDS: Divalproex Sodium 250 MG TABLET.DR PO (10:45)
[2023-03-01] MEDS: Lidocaine 4 % Patch ADH..PATCH 1 PATCH TRANSDERMA (10:45)
[2023-03-01] MEDS: Clopidogrel Bisulfate 75 MG TABLET PO (10:46)
[2023-03-01] MEDS: Escitalopram Oxalate 10 MG TABLET PO (10:46)
[2023-03-01 11:26] LABS: Glucose, Whole Blood 282 mg/dL (60-115)
[2023-03-01] MEDS: Insulin Lispro 100 UNIT/ML 3 ML VIAL SUBCUT ×2 (11:36→17:02)
[2023-03-01 16:16] LABS: Glucose, Whole Blood 245 mg/dL (60-115)
[2023-03-01] MEDS: Acetaminophen 325 MG TABLET 650 MG PO (17:48)
[2023-03-01 18:00] VITALS: BP 143/67; PULSE 64; RESP 16; TEMP 36.3; O2SAT 96
[2023-03-01] MEDS: Atorvastatin Calcium 20 MG TABLET PO (20:37)
[2023-03-01] MEDS: Valsartan 80 MG TABLET PO (20:37)
[2023-03-01] MEDS: Divalproex Sodium 500 MG TABLET.DR PO (20:37)
[2023-03-01] MEDS: Insulin Glargine,Hum.rec.anlog 100 UNIT/ML 10 ML VIAL 47 UNIT SUBCUT (20:38)
[2023-03-01] MEDS: Donepezil HCl 10 MG TABLET PO (20:38)
[2023-03-01] MEDS: Gabapentin 600 MG TABLET 1200 MG PO (20:38)
[2023-03-02 02:00] LABS: Glucose, Whole Blood 296 mg/dL (60-115)
[2023-03-02] MEDS: Levothyroxine Sodium 75 MCG TABLET PO (06:47)
[2023-03-02 08:00] VITALS: BP 113/58; PULSE 61; RESP 18; TEMP 36.7; O2SAT 95
[2023-03-02] MEDS: Clopidogrel Bisulfate 75 MG TABLET PO (08:55)
[2023-03-02] MEDS: Lidocaine 4 % Patch ADH..PATCH 1 PATCH TRANSDERMA (08:55)
[2023-03-02] MEDS: Escitalopram Oxalate 10 MG TABLET PO (08:55)
[2023-03-02] MEDS: Memantine HCl 10 MG TABLET PO ×2 (08:55→20:36)
[2023-03-02] MEDS: Metoprolol Tartrate 25 MG TABLET PO (08:55)
[2023-03-02] MEDS: Divalproex Sodium 250 MG TABLET.DR PO (08:56)
[2023-03-02] MEDS: Insulin Lispro 100 UNIT/ML 3 ML VIAL SUBCUT ×3 (09:03→16:42)
--- NOTE | 2023-03-02 10:00 | HO.PSYCHPN ---
Subjective Subjective Date of Service: 03/02/23 Reason For Visit: Depression Subjective Notes: Conditional Voluntary Interim History: The nursing staff reported no changes in her mental status she remains flat, pleasant compliant with medications. Last night she slept well last night. On interview the patient denies new symptoms, waiting for placement. Mental Status Exam Mental Status Exam Patient Appearance: Appropriate Patient Orientation: Person Level of Consciousness: Awake Patient Behavior: Guarded and Passive Mood Description: Withdrawn Affect Description: Constricted Patient Cognition Impaired: Yes Ability to Follow Directions: Fair Speech Pattern: Clear Hallucinations: None Delusions: Not Present Thought Process: Distracted and Slowed Thinking Thought Content: positive for [place] and positive for Poverty of Content Judgement: Fair Diagnostics Vital Signs (24Hr): Vital Signs - 24 hr 03/01/23 18:00 03/02/23 08:00 Temperature 97.3 F 98.0 F Pulse Rate 64 61 Respiratory Rate 16 18 Blood Pressure 143/67 H 113/58 L Pulse Oximetry 96 95 Oxygen Delivery Method Room Air Room Air BMI result Body Mass Index 28.5 Labs 01/07/23 17:49 01/07/23 17:49 Labs: Laboratory Results - last 48 hr 02/28/23 02/28/23 02/28/23 11:40 16:13 19:47 POC Glucose 233 H 255 H 187 H 03/01/23 03/01/23 03/01/23 06:36 11:10 16:04 POC Glucose 120 H 282 H 245 H 03/01/23 19:47 POC Glucose 296 H Imaging Radiology Impressions: ITS Impressions Venous Duplex 01/30/23 16:02 IMPRESSION: No DVT demonstrated in the bilateral lower extremity. Medications Medications Current Medications Acetaminophen (Acetaminophen 325 Mg Tablet) 650 mg PO Q6H PRN PRN Reason: Headache/Pain Mild Scale (1-3) Last Admin: 03/01/23 17:48 Dose: 650 mg Al Hydroxide/Mg Hydroxide (Magnesium Hydrox/Alum Hydrox 30 Ml Oral.Susp) 30 ml PO Q6H PRN PRN Reason: Heartburn/Nausea Last Admin: 02/10/23 22:17 Dose: 30 ml Atorvastatin Calcium (Atorvastatin Calcium 20 Mg Tablet) 20 mg PO BEDTIME [facility] Last Admin: 03/01/23 20:37 Dose: 20 mg Bisacodyl (Bisacodyl 10 Mg Supp.Rect) 10 mg [place] DAILY PRN PRN Reason: Constipation Clopidogrel Bisulfate (Clopidogrel Bisulfate 75 Mg Tablet) 75 mg PO DAILY [facility] Last Admin: 03/02/23 08:55 Dose: 75 mg Divalproex Sodium (Divalproex Sodium 500 Mg Tablet.) 500 mg PO BEDTIME [facility] Last Admin: 03/01/23 20:37 Dose: 500 mg Divalproex Sodium (Divalproex Sodium 250 Mg Tablet.) 250 mg PO DAILY [facility] Last Admin: 03/02/23 08:56 Dose: 250 mg Donepezil HCl (Donepezil Hcl 10 Mg Tablet) 10 mg PO BEDTIME [facility] Last Admin: 03/01/23 20:38 Dose: 10 mg Escitalopram Oxalate (Escitalopram Oxalate 10 Mg Tablet) 10 mg PO DAILY [facility] Last Admin: 03/02/23 08:55 Dose: 10 mg Gabapentin (Gabapentin 600 Mg Tablet) 1,200 mg PO BEDTIME [facility] Last Admin: 03/01/23 20:38 Dose: 1,200 mg Glucagon (Glucagon Hcl 1 Mg Vial) 1 mg SUBCUT Q20M PRN PRN Reason: BG <70 AND UNRESPONSIVE Glucose (Glucose Gel 15 Gm Gel..Gram.) 15 gm PO Q15M PRN PRN Reason: BG <70 AND RESPONSIVE Last Admin: 01/30/23 03:12 Dose: 15 gm Insulin Glargine (Insulin Glargine,Hum.Rec.Anlog 100 Unit/Ml 10 Ml Vial) 47 unit SUBCUT BEDTIME [facility] Last Admin: 03/01/23 20:38 Dose: 47 unit Insulin Human Lispro (Insulin Lispro 100 Unit/Ml 3 Ml Vial) 0 unit SUBCUT TIDAC [facility]; Protocol Last Admin: 03/02/23 09:03 Dose: 4 unit Levothyroxine Sodium (Levothyroxine Sodium 75 Mcg Tablet) 75 mcg PO DAILY@0630 [facility] Last Admin: 03/02/23 06:47 Dose: 75 mcg Lidocaine (Lidocaine 4 % Patch Adh..Patch) 1 patch TRANSDERMA DAILY [facility]; Protocol Last Admin: 03/02/23 08:55 Dose: 1 patch Loperamide HCl (Loperamide Hcl 2 Mg Capsule) 2 mg PO Q6H PRN PRN Reason: diarrhea Last Admin: 02/19/23 11:09 Dose: 2 mg Magnesium Hydroxide (Milk Of Magnesia 30 Ml Oral.Susp) 30 ml PO DAILY PRN PRN Reason: Constipation Magnesium Hydroxide (Milk Of Magnesia 30 Ml Oral.Susp) 30 ml PO DAILY PRN PRN Reason: Constipation Memantine (Memantine Hcl 10 Mg Tablet) 10 mg PO BID [facility] Last Admin: 03/02/23 08:55 Dose: 10 mg Metoprolol Tartrate (Metoprolol Tartrate 25 Mg Tablet) 25 mg PO DAILY [facility]; Protocol Last Admin: 03/02/23 08:55 Dose: 25 mg Quetiapine Fumarate (Quetiapine Fumarate 50 Mg Tablet) 50 mg PO Q6H PRN PRN Reason: agitation Last Admin: 02/26/23 00:10 Dose: 50 mg Sodium Biphosphate/Sodium Phosphate (Sodium Phosphate,[place]-Dibasic 133 Ml Enema) 133 ml [place] DAILY PRN PRN Reason: Constipation Trazodone HCl (Trazodone Hcl 50 Mg Tablet) 50 mg PO BEDTIME PRN PRN Reason: Insomnia Last Admin: 02/28/23 20:30 Dose: 50 mg Valsartan (Valsartan 80 Mg Tablet) 80 mg PO BEDTIME [facility]; Protocol Last Admin: 03/01/23 20:37 Dose: 80 mg Allergies Allergies Allergy/AdvReac Type Severity Reaction Status Date / Time aspirin [ASPIRIN] Allergy Unknown UNKNOWN Verified 01/01/23 09:43 Assessment & Plan Assessment & Plan (1) Major neurocognitive disorder: Status: Acute Code(s): F03.90 - Unspecified dementia, unspecified severity, without behavioral disturbance, psychotic disturbance, mood disturbance, and anxiety (2) Mood disorder: Status: Acute Code(s): F39 - Unspecified mood [affective] disorder Plan Ms. Landis is a 67 year-old woman with hx of Mood Disorder (untreated for most of her life) and neurocognitive disorder who was brought via EMS from [facility] due to increase verbal aggression towards roommate and one of their staff. Pt is known to this medical technical writer through previous assessment for similar presentation. Pt presents as calmer, she does admit to being verbally abusive, although denies any intent to harm self or others. She does lack the insight into how her behaviors affect others and her relationships with others. This tendency to have difficulty seeing other people's need per daughter has been life long. Pt presents with tendency to be irritable, at times explosive but not physically aggressive. She was started back in September on low dose of seroquel but no further medication adjustments have been made to manage these symptoms, which are disruptive but not life threatening nor at imminent risk of harm to self or others. As consequence of minimal intervention in the community, pt has had more frequent ED visits here and at [facility]. We discussed risks, benefits and alternative treatment options, pt agrees to start mood stabilizer for impulsive, explosive behaviors. We also discussed switching seroquel to risperidone. Pt is orientation has been intact all along. PLAN 01/20 schedule trazodone 50mg po qhs for sleep. 01/21 continue tx. depakote levels scheduled for tomorrow AM with ammonia levels. 01/22 trough depakote level 75, ammonia 41. continue tx. continue tx 01/24 continue tx. 01/25 continue tx. 01/26 continue tx. 01/27: continue current mgmt. 01/28: continue current mgmt. 01/29 continue tx. 01/30 continue tx. 01/31 continues tx-continue monitor bilat LE- doppler did not show DVT. 02/01: No change in medications, continue current plan of care. 02/02: Continue current plan. 02/03: Continue current plans and regimen 02/04 continue tx. 02/05 continue tx. 02/06 continue tx. 02/07 continue tx. 02/09: no changes 02/10 continue tx. 02/11 continue tx. 02/12 continue tx. 02/13 continue tx. 02/14 continue tx. awaiting placement. 02/15: Continue current treatment plan. 02/16: Continue current plan. 02/17 continue tx. 02/18 continue tx. 02/19 continue tx. 02/20 continue tx. 02/21 continue tx. 02/22: Continue current plans and regimen 02/23: Continue current plans and regimen 02/24 continue tx 02/25 continue tx. 02/26 continue tx. 02/27 continue tx. 02/28 continue tx. 03/01 continue same treatment 03/02 continue same treatment Reason for continued inpatient stay Substantial Risk for: inability to function, rapid decompensation and med/psych decompensation Time Spent With Patient Time: Total time managing care of this patient today ____ minutes.
[2023-03-02 11:38] LABS: Glucose, Whole Blood 184 mg/dL (60-115)
--- NOTE | 2023-03-02 16:05 | PC.NURSE ---
Patient ambulating ,not in any distress
[2023-03-02 16:14] LABS: Glucose, Whole Blood 188 mg/dL (60-115)
[2023-03-02 16:37] LABS: Glucose, Whole Blood 202 mg/dL (60-115)
[2023-03-02 18:00] VITALS: BP 142/79; PULSE 64; RESP 20; TEMP 36.3; O2SAT 97
[2023-03-02] MEDS: Donepezil HCl 10 MG TABLET PO (20:36)
[2023-03-02] MEDS: Divalproex Sodium 500 MG TABLET.DR PO (20:36)
[2023-03-02] MEDS: Atorvastatin Calcium 20 MG TABLET PO (20:36)
[2023-03-02] MEDS: Valsartan 80 MG TABLET PO (20:36)
[2023-03-02] MEDS: Gabapentin 600 MG TABLET 1200 MG PO (20:37)
[2023-03-02 20:58] LABS: Glucose, Whole Blood 262 mg/dL (60-115)
[2023-03-02] MEDS: Insulin Glargine,Hum.rec.anlog 100 UNIT/ML 10 ML VIAL 47 UNIT SUBCUT (21:13)
[2023-03-03] MEDS: Levothyroxine Sodium 75 MCG TABLET PO (06:23)
[2023-03-03 07:42] LABS: Glucose, Whole Blood 154 mg/dL (60-115)
[2023-03-03 08:00] VITALS: BP 147/68; PULSE 68; RESP 18; TEMP 36.4; O2SAT 94
[2023-03-03] MEDS: Insulin Lispro 100 UNIT/ML 3 ML VIAL SUBCUT ×3 (09:14→16:55)
[2023-03-03] MEDS: Metoprolol Tartrate 25 MG TABLET PO (09:15)
[2023-03-03] MEDS: Clopidogrel Bisulfate 75 MG TABLET PO (09:15)
[2023-03-03] MEDS: Divalproex Sodium 250 MG TABLET.DR PO (09:15)
[2023-03-03] MEDS: Escitalopram Oxalate 10 MG TABLET PO (09:15)
[2023-03-03] MEDS: Memantine HCl 10 MG TABLET PO ×2 (09:15→21:03)
[2023-03-03] MEDS: Lidocaine 4 % Patch ADH..PATCH 1 PATCH TRANSDERMA (09:15)
[2023-03-03] MEDS: Acetaminophen 325 MG TABLET 650 MG PO (10:02)
[2023-03-03 11:44] LABS: Glucose, Whole Blood 216 mg/dL (60-115)
[2023-03-03] MEDS: Loperamide HCl 2 MG CAPSULE PO (12:25)
[2023-03-03 16:34] LABS: Glucose, Whole Blood 292 mg/dL (60-115)
--- NOTE | 2023-03-03 17:58 | PC.NURSE ---
Addendum entered by Jennifer Hodgson RN 03/03/23 18:05: Order for artificial tears prn obtained from preparation center coordinator Dr. Solano. Original Note: Patient is complaining of dry eyes, cool compress given.
[2023-03-03 18:00] VITALS: BP 157/64; PULSE 60; RESP 20; TEMP 36.6; O2SAT 94
--- NOTE | 2023-03-03 18:30 | P.PNPSI_ITS ---
Subjective Subjective Date of Service: 03/03/23 Reason For Visit: Depression Subjective Notes: Conditional Voluntary Healthcare Proxy: Yes Interim History: Pt presents as pleasant. She reports sleeping well, which is verified by nursing. She reports one episode of loose stool this morning. She denies abdominal pain. She reports she has these episodes once in a while. She is visible on the unit, attends assigned groups. No behavioral concerns. Review of Systems Review of Systems nothing acute Yes all other systems are reviewed and are negative Mental Status Exam Mental Status Exam Patient Appearance: Appropriate Patient Orientation: Person Level of Consciousness: Awake Mood Description: Withdrawn Affect Description: Constricted Patient Cognition Impaired: Yes Ability to Follow Directions: Fair Speech Pattern: Clear Diagnostics Vital Signs (24Hr): Vital Signs - 24 hr 03/03/23 08:00 Temperature 97.6 F Pulse Rate 68 Respiratory Rate 18 Blood Pressure 147/68 H Pulse Oximetry 94 Oxygen Delivery Method Room Air BMI result Body Mass Index 28.5 Labs 01/07/23 17:49 01/07/23 17:49 Labs: Laboratory Results - last 48 hr 03/01/23 03/02/23 03/02/23 19:47 06:40 11:38 POC Glucose 296 H 184 H 188 H 03/02/23 03/02/23 03/03/23 16:20 20:45 06:09 POC Glucose 202 H 262 H 154 H 03/03/23 03/03/23 11:34 16:13 POC Glucose 216 H 292 H Imaging Radiology Impressions: ITS Impressions Venous Duplex 01/30/23 16:02 IMPRESSION: No DVT demonstrated in the bilateral lower extremity. Medications Medications Current Medications Acetaminophen (Acetaminophen 325 Mg Tablet) 650 mg PO Q6H PRN PRN Reason: Headache/Pain Mild Scale (1-3) Last Admin: 03/03/23 10:02 Dose: 650 mg Al Hydroxide/Mg Hydroxide (Magnesium Hydrox/Alum Hydrox 30 Ml Oral.Susp) 30 ml PO Q6H PRN PRN Reason: Heartburn/Nausea Last Admin: 02/10/23 22:17 Dose: 30 ml Artificial Tears (Artificial Tears 15 Ml Drops) 1 drop EYE-BOTH Q4H PRN PRN Reason: Dry Eyes Atorvastatin Calcium (Atorvastatin Calcium 20 Mg Tablet) 20 mg PO BEDTIME [facility] Last Admin: 03/02/23 20:36 Dose: 20 mg Bisacodyl (Bisacodyl 10 Mg Supp.Rect) 10 mg NE DAILY PRN PRN Reason: Constipation Clopidogrel Bisulfate (Clopidogrel Bisulfate 75 Mg Tablet) 75 mg PO DAILY [facility] Last Admin: 03/03/23 09:15 Dose: 75 mg Divalproex Sodium (Divalproex Sodium 500 Mg Tablet.Dr) 500 mg PO BEDTIME [facility] Last Admin: 03/02/23 20:36 Dose: 500 mg Divalproex Sodium (Divalproex Sodium 250 Mg Tablet.Dr) 250 mg PO DAILY [facility] Last Admin: 03/03/23 09:15 Dose: 250 mg Donepezil HCl (Donepezil Hcl 10 Mg Tablet) 10 mg PO BEDTIME [facility] Last Admin: 03/02/23 20:36 Dose: 10 mg Escitalopram Oxalate (Escitalopram Oxalate 10 Mg Tablet) 10 mg PO DAILY [facility] Last Admin: 03/03/23 09:15 Dose: 10 mg Gabapentin (Gabapentin 600 Mg Tablet) 1,200 mg PO BEDTIME [facility] Last Admin: 03/02/23 20:37 Dose: 1,200 mg Glucagon (Glucagon Hcl 1 Mg Vial) 1 mg SUBCUT Q20M PRN PRN Reason: BG <70 AND UNRESPONSIVE Glucose (Glucose Gel 15 Gm Gel..Gram.) 15 gm PO Q15M PRN PRN Reason: BG <70 AND RESPONSIVE Last Admin: 01/30/23 03:12 Dose: 15 gm Insulin Glargine (Insulin Glargine,Hum.Rec.Anlog 100 Unit/Ml 10 Ml Vial) 47 unit SUBCUT BEDTIME [facility] Last Admin: 03/02/23 21:13 Dose: 47 unit Insulin Human Lispro (Insulin Lispro 100 Unit/Ml 3 Ml Vial) 0 unit SUBCUT TIDAC [facility]; Protocol Last Admin: 03/03/23 16:55 Dose: 8 unit Levothyroxine Sodium (Levothyroxine Sodium 75 Mcg Tablet) 75 mcg PO DAILY@0630 [facility] Last Admin: 03/03/23 06:23 Dose: 75 mcg Lidocaine (Lidocaine 4 % Patch Adh..Patch) 1 patch TRANSDERMA DAILY [facility]; Protocol Last Admin: 03/03/23 09:15 Dose: 1 patch Loperamide HCl (Loperamide Hcl 2 Mg Capsule) 2 mg PO Q6H PRN PRN Reason: diarrhea Last Admin: 03/03/23 12:25 Dose: 2 mg Magnesium Hydroxide (Milk Of Magnesia 30 Ml Oral.Susp) 30 ml PO DAILY PRN PRN Reason: Constipation Magnesium Hydroxide (Milk Of Magnesia 30 Ml Oral.Susp) 30 ml PO DAILY PRN PRN Reason: Constipation Memantine (Memantine Hcl 10 Mg Tablet) 10 mg PO BID [facility] Last Admin: 03/03/23 09:15 Dose: 10 mg Metoprolol Tartrate (Metoprolol Tartrate 25 Mg Tablet) 25 mg PO DAILY [facility]; Protocol Last Admin: 03/03/23 09:15 Dose: 25 mg Quetiapine Fumarate (Quetiapine Fumarate 50 Mg Tablet) 50 mg PO Q6H PRN PRN Reason: agitation Last Admin: 02/26/23 00:10 Dose: 50 mg Sodium Biphosphate/Sodium Phosphate (Sodium Phosphate,[place]-Dibasic 133 Ml Enema) 133 ml NE DAILY PRN PRN Reason: Constipation Trazodone HCl (Trazodone Hcl 50 Mg Tablet) 50 mg PO BEDTIME PRN PRN Reason: Insomnia Last Admin: 02/28/23 20:30 Dose: 50 mg Valsartan (Valsartan 80 Mg Tablet) 80 mg PO BEDTIME [facility]; Protocol Last Admin: 03/02/23 20:36 Dose: 80 mg Allergies Allergies Allergy/AdvReac Type Severity Reaction Status Date / Time aspirin [ASPIRIN] Allergy Unknown UNKNOWN Verified 01/01/23 09:43 Assessment & Plan Assessment & Plan (1) Major neurocognitive disorder: Status: Acute Code(s): F03.90 - Unspecified dementia, unspecified severity, without behavioral disturbance, psychotic disturbance, mood disturbance, and anxiety (2) Mood disorder: Status: Acute Code(s): F39 - Unspecified mood [affective] disorder Plan Ms. Landis is a 67 year-old woman with hx of Mood Disorder (untreated for most of her life) and neurocognitive disorder who was brought via EMS from [facility] due to increase verbal aggression towards roommate and one of their staff. Pt is known to this technical proposal writer through previous assessment for similar presentation. Pt presents as calmer, she does admit to being verbally abusive, although denies any intent to harm self or others. She does lack the insight into how her behaviors affect others and her relationships with others. This tendency to have difficulty seeing other people's need per daughter has been life long. Pt presents with tendency to be irritable, at times explosive but not physically aggressive. She was started back in September on low dose of seroquel but no further medication adjustments have been made to manage these symptoms, which are disruptive but not life threatening nor at imminent risk of harm to self or others. As consequence of minimal intervention in the community, pt has had more frequent ED visits here and at [facility]. We discussed risks, benefits and alternative treatment options, pt agrees to start mood stabilizer for impulsive, explosive behaviors. We also discussed switching seroquel to risperidone. Pt is orientation has been intact all along. PLAN 01/20 schedule trazodone 50mg po qhs for sleep. 01/21 continue tx. depakote levels scheduled for tomorrow AM with ammonia levels. 01/22 trough depakote level 75, ammonia 41. continue tx. continue tx 01/24 continue tx. 01/25 continue tx. 01/26 continue tx. 01/27: continue current mgmt. 01/28: continue current mgmt. 01/29 continue tx. 01/30 continue tx. 01/31 continues tx-continue monitor bilat LE- doppler did not show DVT. 02/01: No change in medications, continue current plan of care. 02/02: Continue current plan. 02/03: Continue current plans and regimen 02/04 continue tx. 02/05 continue tx. 02/06 continue tx. 02/07 continue tx. 02/09: no changes 02/10 continue tx. 02/11 continue tx. 02/12 continue tx. 02/13 continue tx. 02/14 continue tx. awaiting placement. 02/15: Continue current treatment plan. 02/16: Continue current plan. 02/17 continue tx. 02/18 continue tx. 02/19 continue tx. 02/20 continue tx. 02/21 continue tx. 02/22: Continue current plans and regimen 02/23: Continue current plans and regimen 02/24 continue tx 02/25 continue tx. 02/26 continue tx. 02/27 continue tx. 02/28 continue tx. 03/01 continue same treatment 03/02 continue same treatment 03/03 continue tx. Reason for continued inpatient stay Substantial Risk for: inability to function Time Spent With Patient Time: Total time managing care of this patient today ____ minutes.
[2023-03-03 20:54] LABS: Glucose, Whole Blood 238 mg/dL (60-115)
[2023-03-03] MEDS: Atorvastatin Calcium 20 MG TABLET PO (21:03)
[2023-03-03] MEDS: Insulin Glargine,Hum.rec.anlog 100 UNIT/ML 10 ML VIAL 47 UNIT SUBCUT (21:03)
[2023-03-03] MEDS: Gabapentin 600 MG TABLET 1200 MG PO (21:03)
[2023-03-03] MEDS: Donepezil HCl 10 MG TABLET PO (21:03)
[2023-03-03] MEDS: Valsartan 80 MG TABLET PO (21:03)
[2023-03-03] MEDS: Divalproex Sodium 500 MG TABLET.DR PO (21:03)
[2023-03-04] MEDS: Acetaminophen 325 MG TABLET 650 MG PO (03:16)
[2023-03-04] MEDS: Levothyroxine Sodium 75 MCG TABLET PO (05:32)
[2023-03-04 06:40] LABS: Glucose, Whole Blood 146 mg/dL (60-115)
--- NOTE | 2023-03-04 08:29 | HO.PSYCHPN ---
Subjective Subjective Date of Service: 03/04/23 Reason For Visit: Depression Subjective Notes: Conditional Voluntary Interim History: Pt continues to present as pleasant. She reports sleeping well, which is verified by nursing. She denies loose stools today. She is visible on the unit, attends assigned groups. No behavioral concerns. Review of Systems Review of Systems nothing acute Yes all other systems are reviewed and are negative Mental Status Exam Mental Status Exam Patient Appearance: Appropriate Patient Orientation: Person Level of Consciousness: Awake Patient Behavior: Guarded and Passive Mood Description: Withdrawn Affect Description: Constricted Patient Cognition Impaired: Yes Ability to Follow Directions: Fair Speech Pattern: Clear Diagnostics Vital Signs (24Hr): Vital Signs - 24 hr 03/03/23 18:00 Temperature 97.9 F Pulse Rate 60 Respiratory Rate 20 Blood Pressure 157/64 H Pulse Oximetry 94 Oxygen Delivery Method Room Air BMI result Body Mass Index 28.5 Labs 01/07/23 17:49 01/07/23 17:49 Labs: Laboratory Results - last 48 hr 03/02/23 03/02/23 03/02/23 06:40 11:38 16:20 POC Glucose 184 H 188 H 202 H 03/02/23 03/03/23 03/03/23 20:45 06:09 11:34 POC Glucose 262 H 154 H 216 H 03/03/23 03/03/23 03/04/23 16:13 20:47 06:16 POC Glucose 292 H 238 H 146 H Imaging Radiology Impressions: ITS Impressions Venous Duplex 01/30/23 16:02 IMPRESSION: No DVT demonstrated in the bilateral lower extremity. Medications Medications Current Medications Acetaminophen (Acetaminophen 325 Mg Tablet) 650 mg PO Q6H PRN PRN Reason: Headache/Pain Mild Scale (1-3) Last Admin: 03/04/23 03:16 Dose: 650 mg Al Hydroxide/Mg Hydroxide (Magnesium Hydrox/Alum Hydrox 30 Ml Oral.Susp) 30 ml PO Q6H PRN PRN Reason: Heartburn/Nausea Last Admin: 02/10/23 22:17 Dose: 30 ml Artificial Tears (Artificial Tears 15 Ml Drops) 1 drop EYE-BOTH Q4H PRN PRN Reason: Dry Eyes Atorvastatin Calcium (Atorvastatin Calcium 20 Mg Tablet) 20 mg PO BEDTIME [facility] Last Admin: 03/03/23 21:03 Dose: 20 mg Bisacodyl (Bisacodyl 10 Mg Supp.Rect) 10 mg GA DAILY PRN PRN Reason: Constipation Clopidogrel Bisulfate (Clopidogrel Bisulfate 75 Mg Tablet) 75 mg PO DAILY [facility] Last Admin: 03/03/23 09:15 Dose: 75 mg Divalproex Sodium (Divalproex Sodium 500 Mg Tablet.Dr) 500 mg PO BEDTIME [facility] Last Admin: 03/03/23 21:03 Dose: 500 mg Divalproex Sodium (Divalproex Sodium 250 Mg Tablet.Dr) 250 mg PO DAILY [facility] Last Admin: 03/03/23 09:15 Dose: 250 mg Donepezil HCl (Donepezil Hcl 10 Mg Tablet) 10 mg PO BEDTIME [facility] Last Admin: 03/03/23 21:03 Dose: 10 mg Escitalopram Oxalate (Escitalopram Oxalate 10 Mg Tablet) 10 mg PO DAILY [facility] Last Admin: 03/03/23 09:15 Dose: 10 mg Gabapentin (Gabapentin 600 Mg Tablet) 1,200 mg PO BEDTIME [facility] Last Admin: 03/03/23 21:03 Dose: 1,200 mg Glucagon (Glucagon Hcl 1 Mg Vial) 1 mg SUBCUT Q20M PRN PRN Reason: BG <70 AND UNRESPONSIVE Glucose (Glucose Gel 15 Gm Gel..Gram.) 15 gm PO Q15M PRN PRN Reason: BG <70 AND RESPONSIVE Last Admin: 01/30/23 03:12 Dose: 15 gm Insulin Glargine (Insulin Glargine,Hum.Rec.Anlog 100 Unit/Ml 10 Ml Vial) 47 unit SUBCUT BEDTIME [facility] Last Admin: 03/03/23 21:03 Dose: 47 unit Insulin Human Lispro (Insulin Lispro 100 Unit/Ml 3 Ml Vial) 0 unit SUBCUT TIDAC [facility]; Protocol Last Admin: 03/03/23 16:55 Dose: 8 unit Levothyroxine Sodium (Levothyroxine Sodium 75 Mcg Tablet) 75 mcg PO DAILY@0630 [facility] Last Admin: 03/04/23 05:32 Dose: 75 mcg Lidocaine (Lidocaine 4 % Patch Adh..Patch) 1 patch TRANSDERMA DAILY [facility]; Protocol Last Admin: 03/03/23 09:15 Dose: 1 patch Loperamide HCl (Loperamide Hcl 2 Mg Capsule) 2 mg PO Q6H PRN PRN Reason: diarrhea Last Admin: 03/03/23 12:25 Dose: 2 mg Magnesium Hydroxide (Milk Of Magnesia 30 Ml Oral.Susp) 30 ml PO DAILY PRN PRN Reason: Constipation Magnesium Hydroxide (Milk Of Magnesia 30 Ml Oral.Susp) 30 ml PO DAILY PRN PRN Reason: Constipation Memantine (Memantine Hcl 10 Mg Tablet) 10 mg PO BID [facility] Last Admin: 03/03/23 21:03 Dose: 10 mg Metoprolol Tartrate (Metoprolol Tartrate 25 Mg Tablet) 25 mg PO DAILY [facility]; Protocol Last Admin: 03/03/23 09:15 Dose: 25 mg Quetiapine Fumarate (Quetiapine Fumarate 50 Mg Tablet) 50 mg PO Q6H PRN PRN Reason: agitation Last Admin: 02/26/23 00:10 Dose: 50 mg Sodium Biphosphate/Sodium Phosphate (Sodium Phosphate,[place]-Dibasic 133 Ml Enema) 133 ml GA DAILY PRN PRN Reason: Constipation Trazodone HCl (Trazodone Hcl 50 Mg Tablet) 50 mg PO BEDTIME PRN PRN Reason: Insomnia Last Admin: 02/28/23 20:30 Dose: 50 mg Valsartan (Valsartan 80 Mg Tablet) 80 mg PO BEDTIME [facility]; Protocol Last Admin: 03/03/23 21:03 Dose: 80 mg Allergies Allergies Allergy/AdvReac Type Severity Reaction Status Date / Time aspirin [ASPIRIN] Allergy Unknown UNKNOWN Verified 01/01/23 09:43 Assessment & Plan Assessment & Plan (1) Major neurocognitive disorder: Status: Acute Code(s): F03.90 - Unspecified dementia, unspecified severity, without behavioral disturbance, psychotic disturbance, mood disturbance, and anxiety (2) Mood disorder: Status: Acute Code(s): F39 - Unspecified mood [affective] disorder Plan Ms. Landis is a 67 year-old woman with hx of Mood Disorder (untreated for most of her life) and neurocognitive disorder who was brought via EMS from [facility] due to increase verbal aggression towards roommate and one of their staff. Pt is known to this creative writer through previous assessment for similar presentation. Pt presents as calmer, she does admit to being verbally abusive, although denies any intent to harm self or others. She does lack the insight into how her behaviors affect others and her relationships with others. This tendency to have difficulty seeing other people's need per daughter has been life long. Pt presents with tendency to be irritable, at times explosive but not physically aggressive. She was started back in September on low dose of seroquel but no further medication adjustments have been made to manage these symptoms, which are disruptive but not life threatening nor at imminent risk of harm to self or others. As consequence of minimal intervention in the community, pt has had more frequent ED visits here and at [facility]. We discussed risks, benefits and alternative treatment options, pt agrees to start mood stabilizer for impulsive, explosive behaviors. We also discussed switching seroquel to risperidone. Pt is orientation has been intact all along. PLAN 01/20 schedule trazodone 50mg po qhs for sleep. 01/21 continue tx. depakote levels scheduled for tomorrow AM with ammonia levels. 01/22 trough depakote level 75, ammonia 41. continue tx. continue tx 01/24 continue tx. 01/25 continue tx. 01/26 continue tx. 01/27: continue current mgmt. 01/28: continue current mgmt. 01/29 continue tx. 01/30 continue tx. 01/31 continues tx-continue monitor bilat LE- doppler did not show DVT. 02/01: No change in medications, continue current plan of care. 02/02: Continue current plan. 02/03: Continue current plans and regimen 02/04 continue tx. 02/05 continue tx. 02/06 continue tx. 02/07 continue tx. 02/09: no changes 02/10 continue tx. 02/11 continue tx. 02/12 continue tx. 02/13 continue tx. 02/14 continue tx. awaiting placement. 02/15: Continue current treatment plan. 02/16: Continue current plan. 02/17 continue tx. 02/18 continue tx. 02/19 continue tx. 02/20 continue tx. 02/21 continue tx. 02/22: Continue current plans and regimen 02/23: Continue current plans and regimen 02/24 continue tx 02/25 continue tx. 02/26 continue tx. 02/27 continue tx. 02/28 continue tx. 03/01 continue same treatment 03/02 continue same treatment 03/03 continue tx. 03/04 continue tx. awaiting placement Reason for continued inpatient stay Substantial Risk for: inability to function Time Spent With Patient Time: Total time managing care of this patient today ____ minutes.
[2023-03-04 08:46] VITALS: BP 106/52; PULSE 64; RESP 16; TEMP 36.6; O2SAT 95
[2023-03-04] MEDS: Clopidogrel Bisulfate 75 MG TABLET PO (08:49)
[2023-03-04] MEDS: Escitalopram Oxalate 10 MG TABLET PO (08:49)
[2023-03-04] MEDS: Divalproex Sodium 250 MG TABLET.DR PO (08:49)
[2023-03-04] MEDS: Memantine HCl 10 MG TABLET PO ×2 (08:55→20:21)
[2023-03-04 11:56] LABS: Glucose, Whole Blood 244 mg/dL (60-115)
[2023-03-04] MEDS: Insulin Lispro 100 UNIT/ML 3 ML VIAL SUBCUT ×2 (12:15→17:39)
[2023-03-04 16:32] LABS: Glucose, Whole Blood 238 mg/dL (60-115)
[2023-03-04 19:35] VITALS: BP 150/80; PULSE 71; RESP 16; TEMP 36.2; O2SAT 98
[2023-03-04 20:01] LABS: Glucose, Whole Blood 209 mg/dL (60-115)
[2023-03-04] MEDS: Donepezil HCl 10 MG TABLET PO (20:21)
[2023-03-04] MEDS: Atorvastatin Calcium 20 MG TABLET PO (20:21)
[2023-03-04] MEDS: traZODone HCL 50 MG TABLET PO (20:21)
[2023-03-04] MEDS: Gabapentin 600 MG TABLET 1200 MG PO (20:21)
[2023-03-04] MEDS: Divalproex Sodium 500 MG TABLET.DR PO (20:22)
[2023-03-04] MEDS: Valsartan 80 MG TABLET PO (20:22)
[2023-03-04] MEDS: Insulin Glargine,Hum.rec.anlog 100 UNIT/ML 10 ML VIAL 47 UNIT SUBCUT (20:23)
[2023-03-05] MEDS: Levothyroxine Sodium 75 MCG TABLET PO (06:42)
[2023-03-05 06:52] LABS: Glucose, Whole Blood 122 mg/dL (60-115)
[2023-03-05 08:34] VITALS: BP 133/64; PULSE 75; RESP 15; TEMP 36.8; O2SAT 97
[2023-03-05] MEDS: Lidocaine 4 % Patch ADH..PATCH 1 PATCH TRANSDERMA (08:35)
[2023-03-05] MEDS: Clopidogrel Bisulfate 75 MG TABLET PO (08:38)
[2023-03-05] MEDS: Memantine HCl 10 MG TABLET PO ×2 (08:38→20:31)
[2023-03-05] MEDS: Escitalopram Oxalate 10 MG TABLET PO (08:38)
[2023-03-05] MEDS: Metoprolol Tartrate 25 MG TABLET PO (08:38)
[2023-03-05] MEDS: Divalproex Sodium 250 MG TABLET.DR PO (08:38)
--- NOTE | 2023-03-05 11:18 | P.PNPSI_ITS ---
Subjective Subjective Date of Service: 03/05/23 Reason For Visit: Depression Subjective Notes: Conditional Voluntary Interim History: Pt continues to present as pleasant. She reports sleeping well, which is verified by nursing. She denies loose stools today. She is visible on the unit, attends assigned groups. No behavioral concerns. Review of Systems Review of Systems nothing acute Yes all other systems are reviewed and are negative Mental Status Exam Mental Status Exam Patient Appearance: Appropriate Patient Orientation: Person Level of Consciousness: Awake Patient Behavior: Guarded and Passive Mood Description: Withdrawn Affect Description: Constricted Patient Cognition Impaired: Yes Ability to Follow Directions: Fair Speech Pattern: Clear Diagnostics Vital Signs (24Hr): Vital Signs - 24 hr 03/04/23 19:35 03/05/23 08:34 Temperature 97.2 F 98.3 F Pulse Rate 71 75 Respiratory Rate 16 15 Blood Pressure 150/80 H 133/64 Pulse Oximetry 98 97 Oxygen Delivery Method Room Air Room Air BMI result Body Mass Index 28.5 Labs 01/07/23 17:49 01/07/23 17:49 Labs: Laboratory Results - last 48 hr 03/03/23 03/03/23 03/03/23 11:34 16:13 20:47 POC Glucose 216 H 292 H 238 H 03/04/23 03/04/23 03/04/23 06:16 11:43 16:23 POC Glucose 146 H 244 H 238 H 03/04/23 03/05/23 19:47 06:39 POC Glucose 209 H 122 H Imaging Radiology Impressions: ITS Impressions Venous Duplex 01/30/23 16:02 IMPRESSION: No DVT demonstrated in the bilateral lower extremity. Medications Medications Current Medications Acetaminophen (Acetaminophen 325 Mg Tablet) 650 mg PO Q6H PRN PRN Reason: Headache/Pain Mild Scale (1-3) Last Admin: 03/04/23 03:16 Dose: 650 mg Al Hydroxide/Mg Hydroxide (Magnesium Hydrox/Alum Hydrox 30 Ml Oral.Susp) 30 ml PO Q6H PRN PRN Reason: Heartburn/Nausea Last Admin: 02/10/23 22:17 Dose: 30 ml Artificial Tears (Artificial Tears 15 Ml Drops) 1 drop EYE-BOTH Q4H PRN PRN Reason: Dry Eyes Atorvastatin Calcium (Atorvastatin Calcium 20 Mg Tablet) 20 mg PO BEDTIME [facility] Last Admin: 03/04/23 20:21 Dose: 20 mg Bisacodyl (Bisacodyl 10 Mg Supp.Rect) 10 mg [place] DAILY PRN PRN Reason: Constipation Clopidogrel Bisulfate (Clopidogrel Bisulfate 75 Mg Tablet) 75 mg PO DAILY [facility] Last Admin: 03/05/23 08:38 Dose: 75 mg Divalproex Sodium (Divalproex Sodium 500 Mg Tablet.Dr) 500 mg PO BEDTIME [facility] Last Admin: 03/04/23 20:22 Dose: 500 mg Divalproex Sodium (Divalproex Sodium 250 Mg Tablet.Dr) 250 mg PO DAILY [facility] Last Admin: 03/05/23 08:38 Dose: 250 mg Donepezil HCl (Donepezil Hcl 10 Mg Tablet) 10 mg PO BEDTIME [facility] Last Admin: 03/04/23 20:21 Dose: 10 mg Escitalopram Oxalate (Escitalopram Oxalate 10 Mg Tablet) 10 mg PO DAILY [facility] Last Admin: 03/05/23 08:38 Dose: 10 mg Gabapentin (Gabapentin 600 Mg Tablet) 1,200 mg PO BEDTIME [facility] Last Admin: 03/04/23 20:21 Dose: 1,200 mg Glucagon (Glucagon Hcl 1 Mg Vial) 1 mg SUBCUT Q20M PRN PRN Reason: BG <70 AND UNRESPONSIVE Glucose (Glucose Gel 15 Gm Gel..Gram.) 15 gm PO Q15M PRN PRN Reason: BG <70 AND RESPONSIVE Last Admin: 01/30/23 03:12 Dose: 15 gm Insulin Glargine (Insulin Glargine,Hum.Rec.Anlog 100 Unit/Ml 10 Ml Vial) 47 unit SUBCUT BEDTIME [facility] Last Admin: 03/04/23 20:23 Dose: 47 unit Insulin Human Lispro (Insulin Lispro 100 Unit/Ml 3 Ml Vial) 0 unit SUBCUT TIDAC [facility]; Protocol Last Admin: 03/05/23 08:37 Dose: Not Given Levothyroxine Sodium (Levothyroxine Sodium 75 Mcg Tablet) 75 mcg PO DAILY@0630 [facility] Last Admin: 03/05/23 06:42 Dose: 75 mcg Lidocaine (Lidocaine 4 % Patch Adh..Patch) 1 patch TRANSDERMA DAILY [facility]; Protocol Last Admin: 03/05/23 08:35 Dose: 1 patch Loperamide HCl (Loperamide Hcl 2 Mg Capsule) 2 mg PO Q6H PRN PRN Reason: diarrhea Last Admin: 03/03/23 12:25 Dose: 2 mg Magnesium Hydroxide (Milk Of Magnesia 30 Ml Oral.Susp) 30 ml PO DAILY PRN PRN Reason: Constipation Magnesium Hydroxide (Milk Of Magnesia 30 Ml Oral.Susp) 30 ml PO DAILY PRN PRN Reason: Constipation Memantine (Memantine Hcl 10 Mg Tablet) 10 mg PO BID [facility] Last Admin: 03/05/23 08:38 Dose: 10 mg Metoprolol Tartrate (Metoprolol Tartrate 25 Mg Tablet) 25 mg PO DAILY [facility]; Protocol Last Admin: 03/05/23 08:38 Dose: 25 mg Quetiapine Fumarate (Quetiapine Fumarate 50 Mg Tablet) 50 mg PO Q6H PRN PRN Reason: agitation Last Admin: 02/26/23 00:10 Dose: 50 mg Sodium Biphosphate/Sodium Phosphate (Sodium Phosphate,[place]-Dibasic 133 Ml Enema) 133 ml [place] DAILY PRN PRN Reason: Constipation Trazodone HCl (Trazodone Hcl 50 Mg Tablet) 50 mg PO BEDTIME PRN PRN Reason: Insomnia Last Admin: 03/04/23 20:21 Dose: 50 mg Valsartan (Valsartan 80 Mg Tablet) 80 mg PO BEDTIME [facility]; Protocol Last Admin: 03/04/23 20:22 Dose: 80 mg Allergies Allergies Allergy/AdvReac Type Severity Reaction Status Date / Time aspirin [ASPIRIN] Allergy Unknown UNKNOWN Verified 01/01/23 09:43 Assessment & Plan Assessment & Plan (1) Major neurocognitive disorder: Status: Acute Code(s): F03.90 - Unspecified dementia, unspecified severity, without behavioral disturbance, psychotic disturbance, mood disturbance, and anxiety (2) Mood disorder: Status: Acute Code(s): F39 - Unspecified mood [affective] disorder Plan Ms. Landis is a 67 year-old woman with hx of Mood Disorder (untreated for most of her life) and neurocognitive disorder who was brought via EMS from [facility] due to increase verbal aggression towards roommate and one of their staff. Pt is known to this marketing writer through previous assessment for similar presentation. Pt presents as calmer, she does admit to being verbally abusive, although denies any intent to harm self or others. She does lack the insight into how her behaviors affect others and her relationships with others. This tendency to have difficulty seeing other people's need per daughter has been life long. Pt presents with tendency to be irritable, at times explosive but not physically aggressive. She was started back in September on low dose of seroquel but no further medication adjustments have been made to manage these symptoms, which are disruptive but not life threatening nor at imminent risk of harm to self or others. As consequence of minimal intervention in the community, pt has had more frequent ED visits here and at [facility]. We discussed risks, benefits and alternative treatment options, pt agrees to start mood stabilizer for impulsive, explosive behaviors. We also discussed switching seroquel to risperidone. Pt is orientation has been intact all along. PLAN 01/20 schedule trazodone 50mg po qhs for sleep. 01/21 continue tx. depakote levels scheduled for tomorrow AM with ammonia levels. 01/22 trough depakote level 75, ammonia 41. continue tx. continue tx 01/24 continue tx. 01/25 continue tx. 01/26 continue tx. 01/27: continue current mgmt. 01/28: continue current mgmt. 01/29 continue tx. 01/30 continue tx. 01/31 continues tx-continue monitor bilat LE- doppler did not show DVT. 02/01: No change in medications, continue current plan of care. 02/02: Continue current plan. 02/03: Continue current plans and regimen 02/04 continue tx. 02/05 continue tx. 02/06 continue tx. 02/07 continue tx. 02/09: no changes 02/10 continue tx. 02/11 continue tx. 02/12 continue tx. 02/13 continue tx. 02/14 continue tx. awaiting placement. 02/15: Continue current treatment plan. 02/16: Continue current plan. 02/17 continue tx. 02/18 continue tx. 02/19 continue tx. 02/20 continue tx. 02/21 continue tx. 02/22: Continue current plans and regimen 02/23: Continue current plans and regimen 02/24 continue tx 02/25 continue tx. 02/26 continue tx. 02/27 continue tx. 02/28 continue tx. 03/01 continue same treatment 03/02 continue same treatment 03/03 continue tx. 03/04 continue tx. awaiting placement 03/05 continue tx. Reason for continued inpatient stay Substantial Risk for: inability to function Time Spent With Patient Time: Total time managing care of this patient today ____ minutes.
[2023-03-05 11:50] LABS: Glucose, Whole Blood 392 mg/dL (60-115)
--- NOTE | 2023-03-05 11:55 | PC.NURSE ---
BG 392 FOR 1130. MOE CERDA NP NOTIFIED VIA [employer] AND 10 UNITS OF INSULIN PROVIDED.
[2023-03-05] MEDS: Insulin Lispro 100 UNIT/ML 3 ML VIAL SUBCUT ×2 (11:58→17:11)
[2023-03-05 16:40] LABS: Glucose, Whole Blood 229 mg/dL (60-115)
[2023-03-05 18:00] VITALS: BP 154/67; PULSE 78; RESP 16; TEMP 36.5; O2SAT 94
[2023-03-05] MEDS: Insulin Glargine,Hum.rec.anlog 100 UNIT/ML 10 ML VIAL 47 UNIT SUBCUT (20:29)
[2023-03-05] MEDS: Valsartan 80 MG TABLET PO (20:30)
[2023-03-05] MEDS: traZODone HCL 50 MG TABLET PO (20:30)
[2023-03-05] MEDS: Donepezil HCl 10 MG TABLET PO (20:30)
[2023-03-05] MEDS: Atorvastatin Calcium 20 MG TABLET PO (20:31)
[2023-03-05] MEDS: Divalproex Sodium 500 MG TABLET.DR PO (20:31)
[2023-03-05] MEDS: Gabapentin 600 MG TABLET 1200 MG PO (20:31)
[2023-03-05 23:03] LABS: Glucose, Whole Blood 241 mg/dL (60-115)
[2023-03-06] MEDS: traZODone HCL 50 MG TABLET PO ×2 (01:19→21:39)
[2023-03-06] MEDS: Levothyroxine Sodium 75 MCG TABLET PO (06:14)
[2023-03-06 06:27] LABS: Glucose, Whole Blood 139 mg/dL (60-115)
[2023-03-06 07:00] VITALS: BMI 28.4
[2023-03-06 08:00] VITALS: BP 126/58; PULSE 71; RESP 18; TEMP 36.2; O2SAT 96
[2023-03-06] MEDS: Metoprolol Tartrate 25 MG TABLET PO (08:41)
[2023-03-06] MEDS: Divalproex Sodium 250 MG TABLET.DR PO (08:41)
[2023-03-06] MEDS: Clopidogrel Bisulfate 75 MG TABLET PO (08:41)
[2023-03-06] MEDS: Lidocaine 4 % Patch ADH..PATCH 1 PATCH TRANSDERMA (08:42)
[2023-03-06] MEDS: Memantine HCl 10 MG TABLET PO ×2 (08:42→20:36)
[2023-03-06] MEDS: Escitalopram Oxalate 10 MG TABLET PO (08:42)
[2023-03-06 11:35] LABS: Glucose, Whole Blood 307 mg/dL (60-115)
[2023-03-06] MEDS: Insulin Lispro 100 UNIT/ML 3 ML VIAL SUBCUT ×2 (11:46→16:36)
--- NOTE | 2023-03-06 12:28 | P.PNPSI_ITS ---
Subjective Subjective Date of Service: 03/06/23 Reason For Visit: Depression Subjective Notes: Conditional Voluntary Healthcare Proxy: Yes Interim History: Pt slept through the night. Pt continues to present as pleasant, attends assigned groups. No SI/HI. No signs of psychosis or delusions. Pt calm and pleasant on approach. She smiles when talking with this keno writer. Hoping her daughter comes and visits her. Review of Systems Review of Systems nothing acute Yes all other systems are reviewed and are negative Mental Status Exam Mental Status Exam Patient Appearance: Appropriate Patient Orientation: Person, Place, Time and Situation Level of Consciousness: Awake Patient Behavior: Guarded and Passive Mood Description: Withdrawn Affect Description: Constricted Patient Cognition Impaired: Yes Ability to Follow Directions: Fair Speech Pattern: Clear Diagnostics Vital Signs (24Hr): Vital Signs - 24 hr 03/05/23 18:00 03/06/23 08:00 Temperature 97.7 F 97.2 F Pulse Rate 78 71 Respiratory Rate 16 18 Blood Pressure 154/67 H 126/58 L Pulse Oximetry 94 96 Oxygen Delivery Method Room Air Room Air BMI result Body Mass Index 28.5 Labs 01/07/23 17:49 01/07/23 17:49 Labs: Laboratory Results - last 48 hr 03/04/23 03/04/23 03/05/23 16:23 19:47 06:39 POC Glucose 238 H 209 H 122 H 03/05/23 03/05/23 03/05/23 11:26 16:27 22:52 POC Glucose 392 H* 229 H 241 H 03/06/23 03/06/23 06:15 11:29 POC Glucose 139 H 307 H Imaging Radiology Impressions: ITS Impressions Venous Duplex 01/30/23 16:02 IMPRESSION: No DVT demonstrated in the bilateral lower extremity. Medications Medications Current Medications Acetaminophen (Acetaminophen 325 Mg Tablet) 650 mg PO Q6H PRN PRN Reason: Headache/Pain Mild Scale (1-3) Last Admin: 03/04/23 03:16 Dose: 650 mg Al Hydroxide/Mg Hydroxide (Magnesium Hydrox/Alum Hydrox 30 Ml Oral.Susp) 30 ml PO Q6H PRN PRN Reason: Heartburn/Nausea Last Admin: 02/10/23 22:17 Dose: 30 ml Artificial Tears (Artificial Tears 15 Ml Drops) 1 drop EYE-BOTH Q4H PRN PRN Reason: Dry Eyes Atorvastatin Calcium (Atorvastatin Calcium 20 Mg Tablet) 20 mg PO BEDTIME [facility] Last Admin: 03/05/23 20:31 Dose: 20 mg Bisacodyl (Bisacodyl 10 Mg Supp.Rect) 10 mg [place] DAILY PRN PRN Reason: Constipation Clopidogrel Bisulfate (Clopidogrel Bisulfate 75 Mg Tablet) 75 mg PO DAILY [facility] Last Admin: 03/06/23 08:41 Dose: 75 mg Divalproex Sodium (Divalproex Sodium 500 Mg Tablet.) 500 mg PO BEDTIME [facility] Last Admin: 03/05/23 20:31 Dose: 500 mg Divalproex Sodium (Divalproex Sodium 250 Mg Tablet.) 250 mg PO DAILY [facility] Last Admin: 03/06/23 08:41 Dose: 250 mg Donepezil HCl (Donepezil Hcl 10 Mg Tablet) 10 mg PO BEDTIME [facility] Last Admin: 03/05/23 20:30 Dose: 10 mg Escitalopram Oxalate (Escitalopram Oxalate 10 Mg Tablet) 10 mg PO DAILY [facility] Last Admin: 03/06/23 08:42 Dose: 10 mg Gabapentin (Gabapentin 600 Mg Tablet) 1,200 mg PO BEDTIME [facility] Last Admin: 03/05/23 20:31 Dose: 1,200 mg Glucagon (Glucagon Hcl 1 Mg Vial) 1 mg SUBCUT Q20M PRN PRN Reason: BG <70 AND UNRESPONSIVE Glucose (Glucose Gel 15 Gm Gel..Gram.) 15 gm PO Q15M PRN PRN Reason: BG <70 AND RESPONSIVE Last Admin: 01/30/23 03:12 Dose: 15 gm Insulin Glargine (Insulin Glargine,Hum.Rec.Anlog 100 Unit/Ml 10 Ml Vial) 47 unit SUBCUT BEDTIME [facility] Last Admin: 03/05/23 20:29 Dose: 47 unit Insulin Human Lispro (Insulin Lispro 100 Unit/Ml 3 Ml Vial) 0 unit SUBCUT TIDAC [facility]; Protocol Last Admin: 03/06/23 11:46 Dose: 10 unit Levothyroxine Sodium (Levothyroxine Sodium 75 Mcg Tablet) 75 mcg PO DAILY@0630 [facility] Last Admin: 03/06/23 06:14 Dose: 75 mcg Lidocaine (Lidocaine 4 % Patch Adh..Patch) 1 patch TRANSDERMA DAILY [facility]; Protocol Last Admin: 03/06/23 08:42 Dose: 1 patch Loperamide HCl (Loperamide Hcl 2 Mg Capsule) 2 mg PO Q6H PRN PRN Reason: diarrhea Last Admin: 03/03/23 12:25 Dose: 2 mg Magnesium Hydroxide (Milk Of Magnesia 30 Ml Oral.Susp) 30 ml PO DAILY PRN PRN Reason: Constipation Magnesium Hydroxide (Milk Of Magnesia 30 Ml Oral.Susp) 30 ml PO DAILY PRN PRN Reason: Constipation Memantine (Memantine Hcl 10 Mg Tablet) 10 mg PO BID [facility] Last Admin: 03/06/23 08:42 Dose: 10 mg Metoprolol Tartrate (Metoprolol Tartrate 25 Mg Tablet) 25 mg PO DAILY [facility]; Protocol Last Admin: 03/06/23 08:41 Dose: 25 mg Quetiapine Fumarate (Quetiapine Fumarate 50 Mg Tablet) 50 mg PO Q6H PRN PRN Reason: agitation Last Admin: 02/26/23 00:10 Dose: 50 mg Sodium Biphosphate/Sodium Phosphate (Sodium Phosphate,[place]-Dibasic 133 Ml Enema) 133 ml [place] DAILY PRN PRN Reason: Constipation Trazodone HCl (Trazodone Hcl 50 Mg Tablet) 50 mg PO BEDTIME PRN PRN Reason: Insomnia Last Admin: 03/06/23 01:19 Dose: 50 mg Valsartan (Valsartan 80 Mg Tablet) 80 mg PO BEDTIME [facility]; Protocol Last Admin: 03/05/23 20:30 Dose: 80 mg Allergies Allergies Allergy/AdvReac Type Severity Reaction Status Date / Time aspirin [ASPIRIN] Allergy Unknown UNKNOWN Verified 01/01/23 09:43 Assessment & Plan Assessment & Plan (1) Major neurocognitive disorder: Status: Acute Code(s): F03.90 - Unspecified dementia, unspecified severity, without behavioral disturbance, psychotic disturbance, mood disturbance, and anxiety (2) Mood disorder: Status: Acute Code(s): F39 - Unspecified mood [affective] disorder Plan Ms. Landis is a 67 year-old woman with hx of Mood Disorder (untreated for most of her life) and neurocognitive disorder who was brought via EMS from [facility] due to increase verbal aggression towards roommate and one of their staff. Pt is known to this keno writer through previous assessment for similar presentation. Pt presents as calmer, she does admit to being verbally abusive, although denies any intent to harm self or others. She does lack the insight into how her behaviors affect others and her relationships with others. This tendency to have difficulty seeing other people's need per daughter has been life long. Pt presents with tendency to be irritable, at times explosive but not physically aggressive. She was started back in September on low dose of seroquel but no further medication adjustments have been made to manage these symptoms, which are disruptive but not life threatening nor at imminent risk of harm to self or others. As consequence of minimal intervention in the community, pt has had more frequent ED visits here and at [facility]. We discussed risks, benefits and alternative treatment options, pt agrees to start mood stabilizer for impulsive, explosive behaviors. We also discussed switching seroquel to risperidone. Pt is orientation has been intact all along. PLAN 01/20 schedule trazodone 50mg po qhs for sleep. 01/21 continue tx. depakote levels scheduled for tomorrow AM with ammonia levels. 01/22 trough depakote level 75, ammonia 41. continue tx. continue tx 01/24 continue tx. 01/25 continue tx. 01/26 continue tx. 01/27: continue current mgmt. 01/28: continue current mgmt. 01/29 continue tx. 01/30 continue tx. 01/31 continues tx-continue monitor bilat LE- doppler did not show DVT. 02/01: No change in medications, continue current plan of care. 02/02: Continue current plan. 02/03: Continue current plans and regimen 02/04 continue tx. 02/05 continue tx. 02/06 continue tx. 02/07 continue tx. 02/09: no changes 02/10 continue tx. 02/11 continue tx. 02/12 continue tx. 02/13 continue tx. 02/14 continue tx. awaiting placement. 02/15: Continue current treatment plan. 02/16: Continue current plan. 02/17 continue tx. 02/18 continue tx. 02/19 continue tx. 02/20 continue tx. 02/21 continue tx. 02/22: Continue current plans and regimen 02/23: Continue current plans and regimen 02/24 continue tx 02/25 continue tx. 02/26 continue tx. 02/27 continue tx. 02/28 continue tx. 03/01 continue same treatment 03/02 continue same treatment 03/03 continue tx. 03/04 continue tx. awaiting placement 03/05 continue tx. 03/06 continue tx. awaiting placement. Reason for continued inpatient stay Substantial Risk for: inability to function Time Spent With Patient Time: Total time managing care of this patient today ____ minutes.
--- NOTE | 2023-03-06 13:00 | PC.NURSE ---
POC 307 prior lunch, pt covered with Lispro ins. per sliding scale. No s/s of diabetic reaction noted. Tanya Perez notified.
[2023-03-06 16:16] LABS: Glucose, Whole Blood 289 mg/dL (60-115)
[2023-03-06 18:00] VITALS: BP 142/73; PULSE 67; RESP 18; TEMP 36.6; O2SAT 96
[2023-03-06] MEDS: Atorvastatin Calcium 20 MG TABLET PO (20:35)
[2023-03-06] MEDS: Valsartan 80 MG TABLET PO (20:35)
[2023-03-06] MEDS: Divalproex Sodium 500 MG TABLET.DR PO (20:35)
[2023-03-06] MEDS: Gabapentin 600 MG TABLET 1200 MG PO (20:36)
[2023-03-06] MEDS: Donepezil HCl 10 MG TABLET PO (20:36)
[2023-03-06] MEDS: Insulin Glargine,Hum.rec.anlog 100 UNIT/ML 10 ML VIAL 47 UNIT SUBCUT (20:36)
[2023-03-06 20:46] LABS: Glucose, Whole Blood 299 mg/dL (60-115)
[2023-03-07] MEDS: Levothyroxine Sodium 75 MCG TABLET PO (05:58)
[2023-03-07 06:26] LABS: Glucose, Whole Blood 165 mg/dL (60-115)
[2023-03-07 08:00] VITALS: BP 98/54; PULSE 79; RESP 18; TEMP 36.4; O2SAT 95
[2023-03-07] MEDS: Insulin Lispro 100 UNIT/ML 3 ML VIAL SUBCUT ×3 (08:44→16:39)
[2023-03-07] MEDS: Divalproex Sodium 250 MG TABLET.DR PO (08:45)
[2023-03-07] MEDS: Memantine HCl 10 MG TABLET PO ×2 (08:45→21:16)
[2023-03-07] MEDS: Escitalopram Oxalate 10 MG TABLET PO (08:45)
[2023-03-07] MEDS: Clopidogrel Bisulfate 75 MG TABLET PO (08:45)
[2023-03-07] MEDS: Lidocaine 4 % Patch ADH..PATCH 1 PATCH TRANSDERMA (08:47)
[2023-03-07 11:26] LABS: Glucose, Whole Blood 330 mg/dL (60-115)
--- NOTE | 2023-03-07 13:28 | PC.NURSE ---
POC 330 at lunch time. Pt covered per sliding scale as ordered. No s/s of diabetic reaction noted. Tanya Perez notified.
[2023-03-07 16:35] LABS: Glucose, Whole Blood 232 mg/dL (60-115)
--- NOTE | 2023-03-07 16:36 | P.PNPSI_ITS ---
Subjective Subjective Date of Service: 03/07/23 Reason For Visit: Depression Subjective Notes: Conditional Voluntary Healthcare Proxy: Yes Interim History: Pt slept through the night. Pt continues to present as pleasant, attends assigned groups. No SI/HI. No signs of psychosis or delusions. Pt calm and pleasant on approach. She smiles when talking with this editorial writer. Pt reports she is looking forward to her daughter's visit this afternoon. Review of Systems Review of Systems nothing acute Yes all other systems are reviewed and are negative Mental Status Exam Mental Status Exam Patient Appearance: Appropriate Patient Orientation: Person, Place, Time and Situation Level of Consciousness: Awake Patient Behavior: Guarded and Passive Mood Description: Withdrawn Affect Description: Constricted Patient Cognition Impaired: Yes Ability to Follow Directions: Fair Speech Pattern: Clear Diagnostics Vital Signs (24Hr): Vital Signs - 24 hr 03/06/23 18:00 03/07/23 08:00 Temperature 97.9 F 97.6 F Pulse Rate 67 79 Respiratory Rate 18 18 Blood Pressure 142/73 H 98/54 L Pulse Oximetry 96 95 Oxygen Delivery Method Room Air Room Air BMI result Body Mass Index 28.4 Labs 01/07/23 17:49 01/07/23 17:49 Labs: Laboratory Results - last 48 hr 03/05/23 03/05/23 03/06/23 16:27 22:52 06:15 POC Glucose 229 H 241 H 139 H 03/06/23 03/06/23 03/06/23 11:29 16:12 20:33 POC Glucose 307 H 289 H 299 H 03/07/23 03/07/23 06:08 11:07 POC Glucose 165 H 330 H Imaging Radiology Impressions: ITS Impressions Venous Duplex 01/30/23 16:02 IMPRESSION: No DVT demonstrated in the bilateral lower extremity. Medications Medications Current Medications Acetaminophen (Acetaminophen 325 Mg Tablet) 650 mg PO Q6H PRN PRN Reason: Headache/Pain Mild Scale (1-3) Last Admin: 03/04/23 03:16 Dose: 650 mg Al Hydroxide/Mg Hydroxide (Magnesium Hydrox/Alum Hydrox 30 Ml Oral.Susp) 30 ml PO Q6H PRN PRN Reason: Heartburn/Nausea Last Admin: 02/10/23 22:17 Dose: 30 ml Artificial Tears (Artificial Tears 15 Ml Drops) 1 drop EYE-BOTH Q4H PRN PRN Reason: Dry Eyes Atorvastatin Calcium (Atorvastatin Calcium 20 Mg Tablet) 20 mg PO BEDTIME [facility] Last Admin: 03/06/23 20:35 Dose: 20 mg Bisacodyl (Bisacodyl 10 Mg Supp.Rect) 10 mg [place] DAILY PRN PRN Reason: Constipation Clopidogrel Bisulfate (Clopidogrel Bisulfate 75 Mg Tablet) 75 mg PO DAILY [facility] Last Admin: 03/07/23 08:45 Dose: 75 mg Divalproex Sodium (Divalproex Sodium 500 Mg Tablet.) 500 mg PO BEDTIME [facility] Last Admin: 03/06/23 20:35 Dose: 500 mg Divalproex Sodium (Divalproex Sodium 250 Mg Tablet.) 250 mg PO DAILY [facility] Last Admin: 03/07/23 08:45 Dose: 250 mg Donepezil HCl (Donepezil Hcl 10 Mg Tablet) 10 mg PO BEDTIME [facility] Last Admin: 03/06/23 20:36 Dose: 10 mg Escitalopram Oxalate (Escitalopram Oxalate 10 Mg Tablet) 10 mg PO DAILY [facility] Last Admin: 03/07/23 08:45 Dose: 10 mg Gabapentin (Gabapentin 600 Mg Tablet) 1,200 mg PO BEDTIME [facility] Last Admin: 03/06/23 20:36 Dose: 1,200 mg Glucagon (Glucagon Hcl 1 Mg Vial) 1 mg SUBCUT Q20M PRN PRN Reason: BG <70 AND UNRESPONSIVE Glucose (Glucose Gel 15 Gm Gel..Gram.) 15 gm PO Q15M PRN PRN Reason: BG <70 AND RESPONSIVE Last Admin: 01/30/23 03:12 Dose: 15 gm Insulin Glargine (Insulin Glargine,Hum.Rec.Anlog 100 Unit/Ml 10 Ml Vial) 47 unit SUBCUT BEDTIME [facility] Last Admin: 03/06/23 20:36 Dose: 47 unit Insulin Human Lispro (Insulin Lispro 100 Unit/Ml 3 Ml Vial) 0 unit SUBCUT TIDAC [facility]; Protocol Last Admin: 03/07/23 11:41 Dose: 10 unit Levothyroxine Sodium (Levothyroxine Sodium 75 Mcg Tablet) 75 mcg PO DAILY@0630 [facility] Last Admin: 03/07/23 05:58 Dose: 75 mcg Lidocaine (Lidocaine 4 % Patch Adh..Patch) 1 patch TRANSDERMA DAILY [facility]; Protocol Last Admin: 03/07/23 08:47 Dose: 1 patch Loperamide HCl (Loperamide Hcl 2 Mg Capsule) 2 mg PO Q6H PRN PRN Reason: diarrhea Last Admin: 03/03/23 12:25 Dose: 2 mg Magnesium Hydroxide (Milk Of Magnesia 30 Ml Oral.Susp) 30 ml PO DAILY PRN PRN Reason: Constipation Magnesium Hydroxide (Milk Of Magnesia 30 Ml Oral.Susp) 30 ml PO DAILY PRN PRN Reason: Constipation Memantine (Memantine Hcl 10 Mg Tablet) 10 mg PO BID JODEE Last Admin: 03/07/23 08:45 Dose: 10 mg Metoprolol Tartrate (Metoprolol Tartrate 25 Mg Tablet) 25 mg PO DAILY [facility]; Protocol Last Admin: 03/07/23 08:49 Dose: Not Given Quetiapine Fumarate (Quetiapine Fumarate 50 Mg Tablet) 50 mg PO Q6H PRN PRN Reason: agitation Last Admin: 02/26/23 00:10 Dose: 50 mg Sodium Biphosphate/Sodium Phosphate (Sodium Phosphate,[place]-Dibasic 133 Ml Enema) 133 ml [place] DAILY PRN PRN Reason: Constipation Trazodone HCl (Trazodone Hcl 50 Mg Tablet) 50 mg PO BEDTIME PRN PRN Reason: Insomnia Last Admin: 03/06/23 21:39 Dose: 50 mg Valsartan (Valsartan 80 Mg Tablet) 80 mg PO BEDTIME JODEE; Protocol Last Admin: 03/06/23 20:35 Dose: 80 mg Allergies Allergies Allergy/AdvReac Type Severity Reaction Status Date / Time aspirin [ASPIRIN] Allergy Unknown UNKNOWN Verified 01/01/23 09:43 Assessment & Plan Assessment & Plan (1) Major neurocognitive disorder: Status: Acute Code(s): F03.90 - Unspecified dementia, unspecified severity, without behavioral disturbance, psychotic disturbance, mood disturbance, and anxiety (2) Mood disorder: Status: Acute Code(s): F39 - Unspecified mood [affective] disorder Plan Ms. Landis is a 67 year-old woman with hx of Mood Disorder (untreated for most of her life) and neurocognitive disorder who was brought via EMS [facility] due to increase verbal aggression towards roommate and one of their staff. Pt is known to this editorial writer through previous assessment for similar presentation. Pt presents as calmer, she does admit to being verbally abusive, although denies any intent to harm self or others. She does lack the insight into how her behaviors affect others and her relationships with others. This tendency to have difficulty seeing other people's need per daughter has been life long. Pt presents with tendency to be irritable, at times explosive but not physically aggressive. She was started back in September on low dose of seroquel but no further medication adjustments have been made to manage these symptoms, which are disruptive but not life threatening nor at imminent risk of harm to self or others. As consequence of minimal intervention in the community, pt has had more frequent ED visits here and at [facility]. We discussed risks, benefits and alternative treatment options, pt agrees to start mood stabilizer for impulsive, explosive behaviors. We also discussed switching seroquel to risperidone. Pt is orientation has been intact all along. PLAN 01/20 schedule trazodone 50mg po qhs for sleep. 01/21 continue tx. depakote levels scheduled for tomorrow AM with ammonia levels. 01/22 trough depakote level 75, ammonia 41. continue tx. continue tx 01/24 continue tx. 01/25 continue tx. 01/26 continue tx. 01/27: continue current mgmt. 01/28: continue current mgmt. 01/29 continue tx. 01/30 continue tx. 01/31 continues tx-continue monitor bilat LE- doppler did not show DVT. 02/01: No change in medications, continue current plan of care. 02/02: Continue current plan. 02/03: Continue current plans and regimen 02/04 continue tx. 02/05 continue tx. 02/06 continue tx. 02/07 continue tx. 02/09: no changes 02/10 continue tx. 02/11 continue tx. 02/12 continue tx. 02/13 continue tx. 02/14 continue tx. awaiting placement. 02/15: Continue current treatment plan. 02/16: Continue current plan. 02/17 continue tx. 02/18 continue tx. 02/19 continue tx. 02/20 continue tx. 02/21 continue tx. 02/22: Continue current plans and regimen 02/23: Continue current plans and regimen 02/24 continue tx 02/25 continue tx. 02/26 continue tx. 02/27 continue tx. 02/28 continue tx. 03/01 continue same treatment 03/02 continue same treatment 03/03 continue tx. 03/04 continue tx. awaiting placement 03/05 continue tx. 03/06 continue tx. awaiting placement. 03/07 continue tx. Reason for continued inpatient stay Substantial Risk for: inability to function Time Spent With Patient Time: Total time managing care of this patient today ____ minutes.
[2023-03-07 18:00] VITALS: BP 163/67; PULSE 77; RESP 16; O2SAT 95
[2023-03-07] MEDS: Insulin Glargine,Hum.rec.anlog 100 UNIT/ML 10 ML VIAL 47 UNIT SUBCUT (21:00)
[2023-03-07] MEDS: Divalproex Sodium 500 MG TABLET.DR PO (21:15)
[2023-03-07] MEDS: Atorvastatin Calcium 20 MG TABLET PO (21:16)
[2023-03-07] MEDS: Donepezil HCl 10 MG TABLET PO (21:16)
[2023-03-07] MEDS: Gabapentin 600 MG TABLET 1200 MG PO (21:16)
[2023-03-07] MEDS: Valsartan 80 MG TABLET PO (21:17)
[2023-03-07 21:48] LABS: Glucose, Whole Blood 175 mg/dL (60-115)
[2023-03-08] MEDS: Acetaminophen 325 MG TABLET 650 MG PO (04:55)
[2023-03-08] MEDS: Lidocaine 4 % Patch ADH..PATCH 1 PATCH TRANSDERMA ×2 (05:00→08:36)
[2023-03-08] MEDS: Gabapentin 600 MG TABLET 1200 MG PO ×2 (05:47→21:24)
[2023-03-08] MEDS: Levothyroxine Sodium 75 MCG TABLET PO (05:47)
--- NOTE | 2023-03-08 05:50 | PC.NURSE ---
lower back pain- pt awake in common area. she is ambulatory with walker. she has grimacing and states she is having 10/10 lower back pain-plan 1. will give tylenol 650 mg po now 2. will place lidoderm patch on lower back now 3. will give 0900 scheduled gabapentin 1200 mg now 4. will reevaluate and if pain persists will contact .
[2023-03-08 06:00] VITALS: BP 192/87; PULSE 74; RESP 20; TEMP 36.4; O2SAT 94
[2023-03-08 06:41] LABS: Glucose, Whole Blood 92 mg/dL (60-115)
[2023-03-08] MEDS: oxyCODONE HCl Immed Release 5 MG TABLET PO (06:43)
[2023-03-08] MEDS: LORazepam 1 MG TABLET PO (07:15)
--- NOTE | 2023-03-08 07:40 | PC.NURSE ---
pt continued with lower back pain 02/04. dr charles again contacted. previous documentation reviewed. pt given ativan 1 mg po. daughter glends contacted per pt request. using staff member adal to translate, daughter given status report will call her again in 30 minutes.
[2023-03-08] MEDS: Memantine HCl 10 MG TABLET PO ×2 (08:36→21:25)
[2023-03-08] MEDS: Metoprolol Tartrate 25 MG TABLET PO (08:36)
[2023-03-08] MEDS: Escitalopram Oxalate 10 MG TABLET PO (08:36)
[2023-03-08] MEDS: Clopidogrel Bisulfate 75 MG TABLET PO (08:36)
[2023-03-08] MEDS: Divalproex Sodium 250 MG TABLET.DR PO (08:36)
[2023-03-08 11:19] LABS: Glucose, Whole Blood 192 mg/dL (60-115)
[2023-03-08] MEDS: Insulin Lispro 100 UNIT/ML 3 ML VIAL SUBCUT ×2 (11:38→16:31)
--- NOTE | 2023-03-08 11:43 | P.PNPSI_ITS ---
Subjective Subjective Date of Service: 03/08/23 Reason For Visit: Depression Interim History: pt c/o left lower back pain, left-sided [place]. face symmetric, reports no change in ambulation. per RN, cord palpated in left lower back area, suggesting muscle spasm. pt has received oxycodone 5 and ativan 1 this morning without decrease in pt complaint. pt asking for help with back pain. systolic 197 this morning. Mental Status Exam Mental Status Exam Patient Appearance: Appropriate Patient Orientation: Person, Place, Time and Situation Level of Consciousness: Awake Patient Behavior: Guarded and Passive Mood Description: Withdrawn Affect Description: Constricted Patient Cognition Impaired: Yes Ability to Follow Directions: Fair Speech Pattern: Clear Diagnostics Vital Signs (24Hr): Vital Signs - 24 hr 03/07/23 18:00 03/08/23 06:00 Temperature 97.6 F Pulse Rate 77 74 Respiratory Rate 16 20 Blood Pressure 163/67 H 192/87 H Pulse Oximetry 95 94 Oxygen Delivery Method Room Air Room Air BMI result Body Mass Index 28.4 Labs 01/07/23 17:49 01/07/23 17:49 Labs: Laboratory Results - last 48 hr 03/06/23 03/06/23 03/07/23 16:12 20:33 06:08 POC Glucose 289 H 299 H 165 H 03/07/23 03/07/23 03/07/23 11:07 16:26 21:07 POC Glucose 330 H 232 H 175 H 03/08/23 03/08/23 06:07 11:09 POC Glucose 92 192 H Imaging Radiology Impressions: ITS Impressions Venous Duplex 01/30/23 16:02 IMPRESSION: No DVT demonstrated in the bilateral lower extremity. Medications Medications Current Medications Acetaminophen (Acetaminophen 325 Mg Tablet) 650 mg PO Q6H PRN PRN Reason: Headache/Pain Mild Scale (1-3) Last Admin: 03/08/23 04:55 Dose: 650 mg Al Hydroxide/Mg Hydroxide (Magnesium Hydrox/Alum Hydrox 30 Ml Oral.Susp) 30 ml PO Q6H PRN PRN Reason: Heartburn/Nausea Last Admin: 02/10/23 22:17 Dose: 30 ml Artificial Tears (Artificial Tears 15 Ml Drops) 1 drop EYE-BOTH Q4H PRN PRN Reason: Dry Eyes Atorvastatin Calcium (Atorvastatin Calcium 20 Mg Tablet) 20 mg PO BEDTIME [facility] Last Admin: 03/07/23 21:16 Dose: 20 mg Bisacodyl (Bisacodyl 10 Mg Supp.Rect) 10 mg [place] DAILY PRN PRN Reason: Constipation Clopidogrel Bisulfate (Clopidogrel Bisulfate 75 Mg Tablet) 75 mg PO DAILY [facility] Last Admin: 03/08/23 08:36 Dose: 75 mg Divalproex Sodium (Divalproex Sodium 500 Mg Tablet.) 500 mg PO BEDTIME [facility] Last Admin: 03/07/23 21:15 Dose: 500 mg Divalproex Sodium (Divalproex Sodium 250 Mg Tablet.) 250 mg PO DAILY [facility] Last Admin: 03/08/23 08:36 Dose: 250 mg Donepezil HCl (Donepezil Hcl 10 Mg Tablet) 10 mg PO BEDTIME [facility] Last Admin: 03/07/23 21:16 Dose: 10 mg Escitalopram Oxalate (Escitalopram Oxalate 10 Mg Tablet) 10 mg PO DAILY [facility] Last Admin: 03/08/23 08:36 Dose: 10 mg Gabapentin (Gabapentin 600 Mg Tablet) 1,200 mg PO BEDTIME [facility] Last Admin: 03/08/23 05:47 Dose: 1,200 mg Glucagon (Glucagon Hcl 1 Mg Vial) 1 mg SUBCUT Q20M PRN PRN Reason: BG <70 AND UNRESPONSIVE Glucose (Glucose Gel 15 Gm Gel..Gram.) 15 gm PO Q15M PRN PRN Reason: BG <70 AND RESPONSIVE Last Admin: 01/30/23 03:12 Dose: 15 gm Insulin Glargine (Insulin Glargine,Hum.Rec.Anlog 100 Unit/Ml 10 Ml Vial) 47 unit SUBCUT BEDTIME [facility] Last Admin: 03/07/23 21:00 Dose: 47 unit Insulin Human Lispro (Insulin Lispro 100 Unit/Ml 3 Ml Vial) 0 unit SUBCUT TIDAC [facility]; Protocol Last Admin: 03/08/23 11:38 Dose: 4 unit Levothyroxine Sodium (Levothyroxine Sodium 75 Mcg Tablet) 75 mcg PO DAILY@0630 [facility] Last Admin: 03/08/23 05:47 Dose: 75 mcg Lidocaine (Lidocaine 4 % Patch Adh..Patch) 1 patch TRANSDERMA DAILY [facility]; Protocol Last Admin: 03/08/23 08:36 Dose: 1 patch Loperamide HCl (Loperamide Hcl 2 Mg Capsule) 2 mg PO Q6H PRN PRN Reason: diarrhea Last Admin: 03/03/23 12:25 Dose: 2 mg Magnesium Hydroxide (Milk Of Magnesia 30 Ml Oral.Susp) 30 ml PO DAILY PRN PRN Reason: Constipation Magnesium Hydroxide (Milk Of Magnesia 30 Ml Oral.Susp) 30 ml PO DAILY PRN PRN Reason: Constipation Memantine (Memantine Hcl 10 Mg Tablet) 10 mg PO BID JODEE Last Admin: 03/08/23 08:36 Dose: 10 mg Metoprolol Tartrate (Metoprolol Tartrate 25 Mg Tablet) 25 mg PO DAILY [facility]; Protocol Last Admin: 03/08/23 08:36 Dose: 25 mg Quetiapine Fumarate (Quetiapine Fumarate 50 Mg Tablet) 50 mg PO Q6H PRN PRN Reason: agitation Last Admin: 02/26/23 00:10 Dose: 50 mg Sodium Biphosphate/Sodium Phosphate (Sodium Phosphate,[place]-Dibasic 133 Ml Enema) 133 ml [place] DAILY PRN PRN Reason: Constipation Trazodone HCl (Trazodone Hcl 50 Mg Tablet) 50 mg PO BEDTIME PRN PRN Reason: Insomnia Last Admin: 03/06/23 21:39 Dose: 50 mg Valsartan (Valsartan 80 Mg Tablet) 80 mg PO BEDTIME [facility]; Protocol Last Admin: 03/07/23 21:17 Dose: 80 mg Allergies Allergies Allergy/AdvReac Type Severity Reaction Status Date / Time aspirin [ASPIRIN] Allergy Unknown UNKNOWN Verified 01/01/23 09:43 Assessment & Plan Assessment & Plan (1) Major neurocognitive disorder: Status: Acute Code(s): F03.90 - Unspecified dementia, unspecified severity, without behavioral disturbance, psychotic disturbance, mood disturbance, and anxiety (2) Mood disorder: Status: Acute Code(s): F39 - Unspecified mood [affective] disorder Plan Ms. Landis is a 67 year-old woman with hx of Mood Disorder (untreated for most of her life) and neurocognitive disorder who was brought via EMS from [facility] due to increase verbal aggression towards roommate and one of their staff. Pt is known to this speech writer through previous assessment for similar presentation. Pt presents as calmer, she does admit to being verbally abusive, although denies any intent to harm self or others. She does lack the insight into how her behaviors affect others and her relationships with others. This tendency to have difficulty seeing other people's need per daughter has been life long. Pt presents with tendency to be irritable, at times explosive but not physically aggressive. She was started back in September on low dose of seroquel but no further medication adjustments have been made to manage these symptoms, which are disruptive but not life threatening nor at imminent risk of harm to self or others. As consequence of minimal intervention in the community, pt has had more frequent ED visits here and at [facility]. We discussed risks, benefits and alternative treatment options, pt agrees to start mood stabilizer for impulsive, explosive behaviors. We also discussed switching seroquel to risperidone. Pt is orientation has been intact all along. PLAN 01/20 schedule trazodone 50mg po qhs for sleep. 01/21 continue tx. depakote levels scheduled for tomorrow AM with ammonia levels. 01/22 trough depakote level 75, ammonia 41. continue tx. continue tx 01/24 continue tx. 01/25 continue tx. 01/26 continue tx. 01/27: continue current mgmt. 01/28: continue current mgmt. 01/29 continue tx. 01/30 continue tx. 01/31 continues tx-continue monitor bilat LE- doppler did not show DVT. 02/01: No change in medications, continue current plan of care. 02/02: Continue current plan. 02/03: Continue current plans and regimen 02/04 continue tx. 02/05 continue tx. 02/06 continue tx. 02/07 continue tx. 02/09: no changes 02/10 continue tx. 02/11 continue tx. 02/12 continue tx. 02/13 continue tx. 02/14 continue tx. awaiting placement. 02/15: Continue current treatment plan. 02/16: Continue current plan. 02/17 continue tx. 02/18 continue tx. 02/19 continue tx. 02/20 continue tx. 02/21 continue tx. 02/22: Continue current plans and regimen 02/23: Continue current plans and regimen 02/24 continue tx 02/25 continue tx. 02/26 continue tx. 02/27 continue tx. 02/28 continue tx. 03/01 continue same treatment 03/02 continue same treatment 03/03 continue tx. 03/04 continue tx. awaiting placement 03/05 continue tx. 03/06 continue tx. awaiting placement. 03/07 continue tx. 03/08: received oxycodone 5, ativan 1 mg this morning for what appears to be lower back spasm. try flexeril 5 mg one time. otherwise continue current mgmt. Reason for continued inpatient stay Substantial Risk for: inability to function and rapid decompensation Time Spent With Patient Time: Total time managing care of this patient today __25__ minutes.
[2023-03-08 16:21] LABS: Glucose, Whole Blood 301 mg/dL (60-115)
[2023-03-08 18:00] VITALS: BP 132/58; PULSE 76; RESP 16; TEMP 36.4; O2SAT 98
[2023-03-08] MEDS: Insulin Glargine,Hum.rec.anlog 100 UNIT/ML 10 ML VIAL 47 UNIT SUBCUT (21:21)
[2023-03-08] MEDS: Donepezil HCl 10 MG TABLET PO (21:23)
[2023-03-08] MEDS: Valsartan 80 MG TABLET PO (21:23)
[2023-03-08] MEDS: Divalproex Sodium 500 MG TABLET.DR PO (21:23)
[2023-03-08] MEDS: Atorvastatin Calcium 20 MG TABLET PO (21:24)
[2023-03-08 22:12] LABS: Glucose, Whole Blood 282 mg/dL (60-115)
[2023-03-09] MEDS: Levothyroxine Sodium 75 MCG TABLET PO (06:11)
[2023-03-09 06:41] LABS: Glucose, Whole Blood 140 mg/dL (60-115)
[2023-03-09 09:23] VITALS: BP 141/90; PULSE 79; RESP 15; TEMP 36.9; O2SAT 95
[2023-03-09] MEDS: Memantine HCl 10 MG TABLET PO ×2 (09:24→20:53)
[2023-03-09] MEDS: Escitalopram Oxalate 10 MG TABLET PO (09:25)
[2023-03-09] MEDS: Clopidogrel Bisulfate 75 MG TABLET PO (09:25)
[2023-03-09] MEDS: Metoprolol Tartrate 25 MG TABLET PO (09:25)
[2023-03-09] MEDS: Divalproex Sodium 250 MG TABLET.DR PO (09:25)
[2023-03-09 11:23] LABS: Glucose, Whole Blood 333 mg/dL (60-115)
[2023-03-09] MEDS: Insulin Lispro 100 UNIT/ML 3 ML VIAL SUBCUT ×2 (11:29→16:50)
--- NOTE | 2023-03-09 11:44 | P.PNPSI_ITS ---
Subjective Subjective Date of Service: 03/09/23 Reason For Visit: Depression Interim History: up and about this morning, no complaints other than asking when she will be leaving. per staff, no issues. Mental Status Exam Mental Status Exam Patient Appearance: Appropriate Patient Orientation: Person, Place, Time and Situation Level of Consciousness: Awake Patient Behavior: Guarded and Passive Mood Description: Withdrawn Affect Description: Constricted Patient Cognition Impaired: Yes Ability to Follow Directions: Fair Speech Pattern: Clear Diagnostics Vital Signs (24Hr): Vital Signs - 24 hr 03/08/23 18:00 03/09/23 09:23 Temperature 97.5 F 98.4 F Pulse Rate 76 79 Respiratory Rate 16 15 Blood Pressure 132/58 L 141/90 H Pulse Oximetry 98 95 Oxygen Delivery Method Room Air Room Air BMI result Body Mass Index 28.4 Labs 01/07/23 17:49 01/07/23 17:49 Labs: Laboratory Results - last 48 hr 03/07/23 03/07/23 03/08/23 16:26 21:07 06:07 POC Glucose 232 H 175 H 92 03/08/23 03/08/23 03/08/23 11:09 16:17 21:20 POC Glucose 192 H 301 H 282 H 03/09/23 03/09/23 06:24 11:17 POC Glucose 140 H 333 H Imaging Radiology Impressions: ITS Impressions Venous Duplex 01/30/23 16:02 IMPRESSION: No DVT demonstrated in the bilateral lower extremity. Medications Medications Current Medications Acetaminophen (Acetaminophen 325 Mg Tablet) 650 mg PO Q6H PRN PRN Reason: Headache/Pain Mild Scale (1-3) Last Admin: 03/08/23 04:55 Dose: 650 mg Al Hydroxide/Mg Hydroxide (Magnesium Hydrox/Alum Hydrox 30 Ml Oral.Susp) 30 ml PO Q6H PRN PRN Reason: Heartburn/Nausea Last Admin: 02/10/23 22:17 Dose: 30 ml Artificial Tears (Artificial Tears 15 Ml Drops) 1 drop EYE-BOTH Q4H PRN PRN Reason: Dry Eyes Atorvastatin Calcium (Atorvastatin Calcium 20 Mg Tablet) 20 mg PO BEDTIME [facility] Last Admin: 03/08/23 21:24 Dose: 20 mg Bisacodyl (Bisacodyl 10 Mg Supp.Rect) 10 mg [place] DAILY PRN PRN Reason: Constipation Clopidogrel Bisulfate (Clopidogrel Bisulfate 75 Mg Tablet) 75 mg PO DAILY [facility] Last Admin: 03/09/23 09:25 Dose: 75 mg Divalproex Sodium (Divalproex Sodium 500 Mg Tablet.) 500 mg PO BEDTIME [facility] Last Admin: 03/08/23 21:23 Dose: 500 mg Divalproex Sodium (Divalproex Sodium 250 Mg Tablet.) 250 mg PO DAILY [facility] Last Admin: 03/09/23 09:25 Dose: 250 mg Donepezil HCl (Donepezil Hcl 10 Mg Tablet) 10 mg PO BEDTIME [facility] Last Admin: 03/08/23 21:23 Dose: 10 mg Escitalopram Oxalate (Escitalopram Oxalate 10 Mg Tablet) 10 mg PO DAILY [facility] Last Admin: 03/09/23 09:25 Dose: 10 mg Gabapentin (Gabapentin 600 Mg Tablet) 1,200 mg PO BEDTIME [facility] Last Admin: 03/08/23 21:24 Dose: 1,200 mg Glucagon (Glucagon Hcl 1 Mg Vial) 1 mg SUBCUT Q20M PRN PRN Reason: BG <70 AND UNRESPONSIVE Glucose (Glucose Gel 15 Gm Gel..Gram.) 15 gm PO Q15M PRN PRN Reason: BG <70 AND RESPONSIVE Last Admin: 01/30/23 03:12 Dose: 15 gm Insulin Glargine (Insulin Glargine,Hum.Rec.Anlog 100 Unit/Ml 10 Ml Vial) 47 unit SUBCUT BEDTIME [facility] Last Admin: 03/08/23 21:21 Dose: 47 unit Insulin Human Lispro (Insulin Lispro 100 Unit/Ml 3 Ml Vial) 0 unit SUBCUT TIDAC [facility]; Protocol Last Admin: 03/09/23 11:29 Dose: 10 unit Levothyroxine Sodium (Levothyroxine Sodium 75 Mcg Tablet) 75 mcg PO DAILY@0630 [facility] Last Admin: 03/09/23 06:11 Dose: 75 mcg Lidocaine (Lidocaine 4 % Patch Adh..Patch) 1 patch TRANSDERMA DAILY [facility]; Protocol Last Admin: 03/08/23 08:36 Dose: 1 patch Loperamide HCl (Loperamide Hcl 2 Mg Capsule) 2 mg PO Q6H PRN PRN Reason: diarrhea Last Admin: 03/03/23 12:25 Dose: 2 mg Magnesium Hydroxide (Milk Of Magnesia 30 Ml Oral.Susp) 30 ml PO DAILY PRN PRN Reason: Constipation Magnesium Hydroxide (Milk Of Magnesia 30 Ml Oral.Susp) 30 ml PO DAILY PRN PRN Reason: Constipation Memantine (Memantine Hcl 10 Mg Tablet) 10 mg PO BID [facility] Last Admin: 03/09/23 09:24 Dose: 10 mg Metoprolol Tartrate (Metoprolol Tartrate 25 Mg Tablet) 25 mg PO DAILY [facility]; Protocol Last Admin: 03/09/23 09:25 Dose: 25 mg Quetiapine Fumarate (Quetiapine Fumarate 50 Mg Tablet) 50 mg PO Q6H PRN PRN Reason: agitation Last Admin: 02/26/23 00:10 Dose: 50 mg Sodium Biphosphate/Sodium Phosphate (Sodium Phosphate,[place]-Dibasic 133 Ml Enema) 133 ml [place] DAILY PRN PRN Reason: Constipation Trazodone HCl (Trazodone Hcl 50 Mg Tablet) 50 mg PO BEDTIME PRN PRN Reason: Insomnia Last Admin: 03/06/23 21:39 Dose: 50 mg Valsartan (Valsartan 80 Mg Tablet) 80 mg PO BEDTIME [facility]; Protocol Last Admin: 03/08/23 21:23 Dose: 80 mg Allergies Allergies Allergy/AdvReac Type Severity Reaction Status Date / Time aspirin [ASPIRIN] Allergy Unknown UNKNOWN Verified 01/01/23 09:43 Assessment & Plan Assessment & Plan (1) Major neurocognitive disorder: Status: Acute Code(s): F03.90 - Unspecified dementia, unspecified severity, without behavioral disturbance, psychotic disturbance, mood disturbance, and anxiety (2) Mood disorder: Status: Acute Code(s): F39 - Unspecified mood [affective] disorder Plan Ms. Landis is a 67 year-old woman with hx of Mood Disorder (untreated for most of her life) and neurocognitive disorder who was brought via EMS from [facility] due to increase verbal aggression towards roommate and one of their staff. Pt is known to this process description writer through previous assessment for similar presentation. Pt presents as calmer, she does admit to being verbally abusive, although denies any intent to harm self or others. She does lack the insight into how her behaviors affect others and her relationships with others. This tendency to have difficulty seeing other people's need per daughter has been life long. Pt presents with tendency to be irritable, at times explosive but not physically aggressive. She was started back in September on low dose of seroquel but no further medication adjustments have been made to manage these symptoms, which are disruptive but not life threatening nor at imminent risk of harm to self or others. As consequence of minimal intervention in the community, pt has had more frequent ED visits here and at [facility]. We discussed risks, benefits and alternative treatment options, pt agrees to start mood stabilizer for impulsive, explosive behaviors. We also discussed switching seroquel to risperidone. Pt is orientation has been intact all along. PLAN 01/20 schedule trazodone 50mg po qhs for sleep. 01/21 continue tx. depakote levels scheduled for tomorrow AM with ammonia levels. 01/22 trough depakote level 75, ammonia 41. continue tx. continue tx 01/24 continue tx. 01/25 continue tx. 01/26 continue tx. 01/27: continue current mgmt. 01/28: continue current mgmt. 01/29 continue tx. 01/30 continue tx. 01/31 continues tx-continue monitor bilat LE- doppler did not show DVT. 02/01: No change in medications, continue current plan of care. 02/02: Continue current plan. 02/03: Continue current plans and regimen 02/04 continue tx. 02/05 continue tx. 02/06 continue tx. 02/07 continue tx. 02/09: no changes 02/10 continue tx. 02/11 continue tx. 02/12 continue tx. 02/13 continue tx. 02/14 continue tx. awaiting placement. 02/15: Continue current treatment plan. 02/16: Continue current plan. 02/17 continue tx. 02/18 continue tx. 02/19 continue tx. 02/20 continue tx. 02/21 continue tx. 02/22: Continue current plans and regimen 02/23: Continue current plans and regimen 02/24 continue tx 02/25 continue tx. 02/26 continue tx. 02/27 continue tx. 02/28 continue tx. 03/01 continue same treatment 03/02 continue same treatment 03/03 continue tx. 03/04 continue tx. awaiting placement 03/05 continue tx. 03/06 continue tx. awaiting placement. 03/07 continue tx. 03/08: received oxycodone 5, ativan 1 mg this morning for what appears to be lower back spasm. try flexeril 5 mg one time. otherwise continue current mgmt. 03/09: no c/o back pain today. calm, cooperative. no behavioral issues. asking when she will be discharging. continue current mgmt. Reason for continued inpatient stay Substantial Risk for: inability to function Time Spent With Patient Time: Total time managing care of this patient today ____ minutes.
[2023-03-09 16:40] LABS: Glucose, Whole Blood 234 mg/dL (60-115)
[2023-03-09 18:00] VITALS: BP 147/72; PULSE 68; RESP 18; TEMP 36.5; O2SAT 97
[2023-03-09 20:15] LABS: Glucose, Whole Blood 263 mg/dL (60-115)
[2023-03-09] MEDS: Divalproex Sodium 500 MG TABLET.DR PO (20:53)
[2023-03-09] MEDS: traZODone HCL 50 MG TABLET PO (20:53)
[2023-03-09] MEDS: Donepezil HCl 10 MG TABLET PO (20:53)
[2023-03-09] MEDS: Atorvastatin Calcium 20 MG TABLET PO (20:53)
[2023-03-09] MEDS: Valsartan 80 MG TABLET PO (20:54)
[2023-03-09] MEDS: Gabapentin 600 MG TABLET 1200 MG PO (20:54)
[2023-03-09] MEDS: Insulin Glargine,Hum.rec.anlog 100 UNIT/ML 10 ML VIAL 47 UNIT SUBCUT (20:56)
[2023-03-10 04:40] LABS: Glucose, Whole Blood 149 mg/dL (60-115)
[2023-03-10 06:00] VITALS: BP 151/68; PULSE 70; RESP 18; TEMP 36.1; O2SAT 96
[2023-03-10] MEDS: Levothyroxine Sodium 75 MCG TABLET PO (06:18)
[2023-03-10] MEDS: Clopidogrel Bisulfate 75 MG TABLET PO (08:36)
[2023-03-10] MEDS: Memantine HCl 10 MG TABLET PO ×2 (08:36→20:33)
[2023-03-10] MEDS: Divalproex Sodium 250 MG TABLET.DR PO (08:36)
[2023-03-10] MEDS: Metoprolol Tartrate 25 MG TABLET PO (08:37)
[2023-03-10] MEDS: Escitalopram Oxalate 10 MG TABLET PO (08:37)
[2023-03-10] MEDS: Lidocaine 4 % Patch ADH..PATCH 1 PATCH TRANSDERMA (08:40)
[2023-03-10] MEDS: Acetaminophen 325 MG TABLET 650 MG PO (11:06)
[2023-03-10 11:36] LABS: Glucose, Whole Blood 321 mg/dL (60-115)
[2023-03-10] MEDS: Insulin Lispro 100 UNIT/ML 3 ML VIAL SUBCUT ×2 (11:39→16:21)
--- NOTE | 2023-03-10 16:05 | HO.PSYCHPN ---
Subjective Subjective Date of Service: 03/10/23 Reason For Visit: Depression Interim History: Pt slept through the night. She is visible on the unit. She is pleasant on approach. She denies any physical concerns. No SI/HI. Awaiting placement. Review of Systems Review of Systems nothing acute Yes all other systems are reviewed and are negative Mental Status Exam Mental Status Exam Narrative: In today's visit she is alert and oriented. Soft-spoken speech. Moderate eye contact. No signs of psychosis. Cognitively at baseline. Judgment is fair. Patient Appearance: Appropriate Patient Orientation: Person, Place, Time and Situation Level of Consciousness: Awake Patient Behavior: Guarded and Passive Mood Description: Withdrawn Affect Description: Constricted Patient Cognition Impaired: Yes Ability to Follow Directions: Fair Speech Pattern: Clear Diagnostics Vital Signs (24Hr): Vital Signs - 24 hr 03/09/23 18:00 03/10/23 06:00 Temperature 97.7 F 97.0 F Pulse Rate 68 70 Respiratory Rate 18 18 Blood Pressure 147/72 H 151/68 H Pulse Oximetry 97 96 Oxygen Delivery Method Room Air Room Air BMI result Body Mass Index 28.4 Labs 01/07/23 17:49 01/07/23 17:49 Labs: Laboratory Results - last 48 hr 03/08/23 03/08/23 03/09/23 16:17 21:20 06:24 POC Glucose 301 H 282 H 140 H 03/09/23 03/09/23 03/09/23 11:17 16:36 20:05 POC Glucose 333 H 234 H 263 H 03/10/23 03/10/23 04:34 11:31 POC Glucose 149 H 321 H Imaging Radiology Impressions: ITS Impressions Venous Duplex 01/30/23 16:02 IMPRESSION: No DVT demonstrated in the bilateral lower extremity. Medications Medications Current Medications Acetaminophen (Acetaminophen 325 Mg Tablet) 650 mg PO Q6H PRN PRN Reason: Headache/Pain Mild Scale (1-3) Last Admin: 03/10/23 11:06 Dose: 650 mg Al Hydroxide/Mg Hydroxide (Magnesium Hydrox/Alum Hydrox 30 Ml Oral.Susp) 30 ml PO Q6H PRN PRN Reason: Heartburn/Nausea Last Admin: 02/10/23 22:17 Dose: 30 ml Artificial Tears (Artificial Tears 15 Ml Drops) 1 drop EYE-BOTH Q4H PRN PRN Reason: Dry Eyes Atorvastatin Calcium (Atorvastatin Calcium 20 Mg Tablet) 20 mg PO BEDTIME [facility] Last Admin: 03/09/23 20:53 Dose: 20 mg Bisacodyl (Bisacodyl 10 Mg Supp.Rect) 10 mg [place] DAILY PRN PRN Reason: Constipation Clopidogrel Bisulfate (Clopidogrel Bisulfate 75 Mg Tablet) 75 mg PO DAILY [facility] Last Admin: 03/10/23 08:36 Dose: 75 mg Divalproex Sodium (Divalproex Sodium 500 Mg Tablet.Dr) 500 mg PO BEDTIME [facility] Last Admin: 03/09/23 20:53 Dose: 500 mg Divalproex Sodium (Divalproex Sodium 250 Mg Tablet.Dr) 250 mg PO DAILY [facility] Last Admin: 03/10/23 08:36 Dose: 250 mg Donepezil HCl (Donepezil Hcl 10 Mg Tablet) 10 mg PO BEDTIME [facility] Last Admin: 03/09/23 20:53 Dose: 10 mg Escitalopram Oxalate (Escitalopram Oxalate 10 Mg Tablet) 10 mg PO DAILY [facility] Last Admin: 03/10/23 08:37 Dose: 10 mg Gabapentin (Gabapentin 600 Mg Tablet) 1,200 mg PO BEDTIME [facility] Last Admin: 03/09/23 20:54 Dose: 1,200 mg Glucagon (Glucagon Hcl 1 Mg Vial) 1 mg SUBCUT Q20M PRN PRN Reason: BG <70 AND UNRESPONSIVE Glucose (Glucose Gel 15 Gm Gel..Gram.) 15 gm PO Q15M PRN PRN Reason: BG <70 AND RESPONSIVE Last Admin: 01/30/23 03:12 Dose: 15 gm Insulin Glargine (Insulin Glargine,Hum.Rec.Anlog 100 Unit/Ml 10 Ml Vial) 47 unit SUBCUT BEDTIME [facility] Last Admin: 03/09/23 20:56 Dose: 47 unit Insulin Human Lispro (Insulin Lispro 100 Unit/Ml 3 Ml Vial) 0 unit SUBCUT TIDAC [facility]; Protocol Last Admin: 03/10/23 11:39 Dose: 10 unit Levothyroxine Sodium (Levothyroxine Sodium 75 Mcg Tablet) 75 mcg PO DAILY@0630 [facility] Last Admin: 03/10/23 06:18 Dose: 75 mcg Lidocaine (Lidocaine 4 % Patch Adh..Patch) 1 patch TRANSDERMA DAILY [facility]; Protocol Last Admin: 03/10/23 08:40 Dose: 1 patch Loperamide HCl (Loperamide Hcl 2 Mg Capsule) 2 mg PO Q6H PRN PRN Reason: diarrhea Last Admin: 03/03/23 12:25 Dose: 2 mg Magnesium Hydroxide (Milk Of Magnesia 30 Ml Oral.Susp) 30 ml PO DAILY PRN PRN Reason: Constipation Magnesium Hydroxide (Milk Of Magnesia 30 Ml Oral.Susp) 30 ml PO DAILY PRN PRN Reason: Constipation Memantine (Memantine Hcl 10 Mg Tablet) 10 mg PO BID [facility] Last Admin: 03/10/23 08:36 Dose: 10 mg Metoprolol Tartrate (Metoprolol Tartrate 25 Mg Tablet) 25 mg PO DAILY [facility]; Protocol Last Admin: 03/10/23 08:37 Dose: 25 mg Quetiapine Fumarate (Quetiapine Fumarate 50 Mg Tablet) 50 mg PO Q6H PRN PRN Reason: agitation Last Admin: 02/26/23 00:10 Dose: 50 mg Sodium Biphosphate/Sodium Phosphate (Sodium Phosphate,[place]-Dibasic 133 Ml Enema) 133 ml [place] DAILY PRN PRN Reason: Constipation Trazodone HCl (Trazodone Hcl 50 Mg Tablet) 50 mg PO BEDTIME PRN PRN Reason: Insomnia Last Admin: 03/09/23 20:53 Dose: 50 mg Valsartan (Valsartan 80 Mg Tablet) 80 mg PO BEDTIME [facility]; Protocol Last Admin: 03/09/23 20:54 Dose: 80 mg Allergies Allergies Allergy/AdvReac Type Severity Reaction Status Date / Time aspirin [ASPIRIN] Allergy Unknown UNKNOWN Verified 01/01/23 09:43 Assessment & Plan Assessment & Plan (1) Major neurocognitive disorder: Status: Acute Code(s): F03.90 - Unspecified dementia, unspecified severity, without behavioral disturbance, psychotic disturbance, mood disturbance, and anxiety (2) Mood disorder: Status: Acute Code(s): F39 - Unspecified mood [affective] disorder Plan Ms. Landis is a 67 year-old woman with hx of Mood Disorder (untreated for most of her life) and neurocognitive disorder who was brought via EMS from [facility] due to increase verbal aggression towards roommate and one of their staff. Pt is known to this technical publications writer through previous assessment for similar presentation. Pt presents as calmer, she does admit to being verbally abusive, although denies any intent to harm self or others. She does lack the insight into how her behaviors affect others and her relationships with others. This tendency to have difficulty seeing other people's need per daughter has been life long. Pt presents with tendency to be irritable, at times explosive but not physically aggressive. She was started back in September on low dose of seroquel but no further medication adjustments have been made to manage these symptoms, which are disruptive but not life threatening nor at imminent risk of harm to self or others. As consequence of minimal intervention in the community, pt has had more frequent ED visits here and at [facility]. We discussed risks, benefits and alternative treatment options, pt agrees to start mood stabilizer for impulsive, explosive behaviors. We also discussed switching seroquel to risperidone. Pt is orientation has been intact all along. PLAN 01/20 schedule trazodone 50mg po qhs for sleep. 01/21 continue tx. depakote levels scheduled for tomorrow AM with ammonia levels. 01/22 trough depakote level 75, ammonia 41. continue tx. continue tx 01/24 continue tx. 01/25 continue tx. 01/26 continue tx. 01/27: continue current mgmt. 01/28: continue current mgmt. 01/29 continue tx. 01/30 continue tx. 01/31 continues tx-continue monitor bilat LE- doppler did not show DVT. 02/01: No change in medications, continue current plan of care. 02/02: Continue current plan. 02/03: Continue current plans and regimen 02/04 continue tx. 02/05 continue tx. 02/06 continue tx. 02/07 continue tx. 02/09: no changes 02/10 continue tx. 02/11 continue tx. 02/12 continue tx. 02/13 continue tx. 02/14 continue tx. awaiting placement. 02/15: Continue current treatment plan. 02/16: Continue current plan. 02/17 continue tx. 02/18 continue tx. 02/19 continue tx. 02/20 continue tx. 02/21 continue tx. 02/22: Continue current plans and regimen 02/23: Continue current plans and regimen 02/24 continue tx 02/25 continue tx. 02/26 continue tx. 02/27 continue tx. 02/28 continue tx. 03/01 continue same treatment 03/02 continue same treatment 03/03 continue tx. 03/04 continue tx. awaiting placement 11/8 continue tx. 03/06 continue tx. awaiting placement. 03/07 continue tx. 03/08: received oxycodone 5, ativan 1 mg this morning for what appears to be lower back spasm. try flexeril 5 mg one time. otherwise continue current mgmt. 03/09: no c/o back pain today. calm, cooperative. no behavioral issues. asking when she will be discharging. continue current mgmt. 03/10 continue tx. Reason for continued inpatient stay Substantial Risk for: inability to function Time Spent With Patient Time: Total time managing care of this patient today ____ minutes.
[2023-03-10 16:17] LABS: Glucose, Whole Blood 232 mg/dL (60-115)
[2023-03-10 18:00] VITALS: BP 143/63; PULSE 72; RESP 18; O2SAT 97
[2023-03-10 20:23] LABS: Glucose, Whole Blood 246 mg/dL (60-115)
[2023-03-10] MEDS: Valsartan 80 MG TABLET PO (20:33)
[2023-03-10] MEDS: Donepezil HCl 10 MG TABLET PO (20:33)
[2023-03-10] MEDS: Atorvastatin Calcium 20 MG TABLET PO (20:33)
[2023-03-10] MEDS: traZODone HCL 50 MG TABLET PO (20:34)
[2023-03-10] MEDS: Divalproex Sodium 500 MG TABLET.DR PO (20:34)
[2023-03-10] MEDS: Gabapentin 600 MG TABLET 1200 MG PO (20:34)
[2023-03-10] MEDS: Insulin Glargine,Hum.rec.anlog 100 UNIT/ML 10 ML VIAL 47 UNIT SUBCUT (20:36)
[2023-03-11] MEDS: Acetaminophen 325 MG TABLET 650 MG PO ×2 (04:37→21:10)
[2023-03-11 04:57] LABS: Glucose, Whole Blood 69 mg/dL (60-115)
[2023-03-11] MEDS: Levothyroxine Sodium 75 MCG TABLET PO (05:58)
[2023-03-11] MEDS: Loperamide HCl 2 MG CAPSULE PO (06:56)
[2023-03-11 07:25] LABS: Glucose, Whole Blood 110 mg/dL (60-115)
[2023-03-11 08:00] VITALS: BP 109/53; PULSE 65; RESP 18; TEMP 36.9; O2SAT 95
[2023-03-11] MEDS: Lidocaine 4 % Patch ADH..PATCH 1 PATCH TRANSDERMA (08:01)
[2023-03-11] MEDS: Divalproex Sodium 250 MG TABLET.DR PO (08:02)
[2023-03-11] MEDS: Metoprolol Tartrate 25 MG TABLET PO (08:02)
[2023-03-11] MEDS: Memantine HCl 10 MG TABLET PO ×2 (08:02→20:59)
[2023-03-11] MEDS: Clopidogrel Bisulfate 75 MG TABLET PO (08:02)
[2023-03-11] MEDS: Escitalopram Oxalate 10 MG TABLET PO (08:02)
--- NOTE | 2023-03-11 10:33 | HO.PSYCHPN ---
Subjective Subjective Date of Service: 03/11/23 Reason For Visit: Depression Interim History: Pt slept through the night. She is visible on the unit. She is pleasant on approach. She denies any physical concerns. No SI/HI. Awaiting placement. Review of Systems Review of Systems nothing acute Yes all other systems are reviewed and are negative Mental Status Exam Mental Status Exam Patient Appearance: Appropriate Patient Orientation: Person, Place, Time and Situation Level of Consciousness: Awake Patient Behavior: Guarded and Passive Mood Description: Withdrawn Affect Description: Constricted Patient Cognition Impaired: Yes Ability to Follow Directions: Fair Speech Pattern: Clear Diagnostics Vital Signs (24Hr): Vital Signs - 24 hr 03/10/23 18:00 Pulse Rate 72 Respiratory Rate 18 Blood Pressure 143/63 H Pulse Oximetry 97 Oxygen Delivery Method Room Air BMI result Body Mass Index 28.4 Labs 01/07/23 17:49 01/07/23 17:49 Labs: Laboratory Results - last 48 hr 03/09/23 03/09/23 03/09/23 11:17 16:36 20:05 POC Glucose 333 H 234 H 263 H 03/10/23 03/10/23 03/10/23 04:34 11:31 16:04 POC Glucose 149 H 321 H 232 H 03/10/23 03/11/23 03/11/23 19:52 04:41 07:18 POC Glucose 246 H 69 110 Imaging Radiology Impressions: ITS Impressions Venous Duplex 01/30/23 16:02 IMPRESSION: No DVT demonstrated in the bilateral lower extremity. Medications Medications Current Medications Acetaminophen (Acetaminophen 325 Mg Tablet) 650 mg PO Q6H PRN PRN Reason: Headache/Pain Mild Scale (1-3) Last Admin: 03/11/23 04:37 Dose: 650 mg Al Hydroxide/Mg Hydroxide (Magnesium Hydrox/Alum Hydrox 30 Ml Oral.Susp) 30 ml PO Q6H PRN PRN Reason: Heartburn/Nausea Last Admin: 02/10/23 22:17 Dose: 30 ml Artificial Tears (Artificial Tears 15 Ml Drops) 1 drop EYE-BOTH Q4H PRN PRN Reason: Dry Eyes Atorvastatin Calcium (Atorvastatin Calcium 20 Mg Tablet) 20 mg PO BEDTIME [facility]E Last Admin: 03/10/23 20:33 Dose: 20 mg Bisacodyl (Bisacodyl 10 Mg Supp.Rect) 10 mg [place] DAILY PRN PRN Reason: Constipation Clopidogrel Bisulfate (Clopidogrel Bisulfate 75 Mg Tablet) 75 mg PO DAILY [facility] Last Admin: 03/11/23 08:02 Dose: 75 mg Divalproex Sodium (Divalproex Sodium 500 Mg Tablet.) 500 mg PO BEDTIME [facility] Last Admin: 03/10/23 20:34 Dose: 500 mg Divalproex Sodium (Divalproex Sodium 250 Mg Tablet.) 250 mg PO DAILY [facility] Last Admin: 03/11/23 08:02 Dose: 250 mg Donepezil HCl (Donepezil Hcl 10 Mg Tablet) 10 mg PO BEDTIME [facility] Last Admin: 03/10/23 20:33 Dose: 10 mg Escitalopram Oxalate (Escitalopram Oxalate 10 Mg Tablet) 10 mg PO DAILY [facility] Last Admin: 03/11/23 08:02 Dose: 10 mg Gabapentin (Gabapentin 600 Mg Tablet) 1,200 mg PO BEDTIME [facility] Last Admin: 03/10/23 20:34 Dose: 1,200 mg Glucagon (Glucagon Hcl 1 Mg Vial) 1 mg SUBCUT Q20M PRN PRN Reason: BG <70 AND UNRESPONSIVE Glucose (Glucose Gel 15 Gm Gel..Gram.) 15 gm PO Q15M PRN PRN Reason: BG <70 AND RESPONSIVE Last Admin: 01/30/23 03:12 Dose: 15 gm Insulin Glargine (Insulin Glargine,Hum.Rec.Anlog 100 Unit/Ml 10 Ml Vial) 47 unit SUBCUT BEDTIME [facility] [place] Last Admin: 03/10/23 20:36 Dose: 47 unit Insulin Human Lispro (Insulin Lispro 100 Unit/Ml 3 Ml Vial) 0 unit SUBCUT TIDAC [facility]; Protocol Last Admin: 03/11/23 08:07 Dose: Not Given Levothyroxine Sodium (Levothyroxine Sodium 75 Mcg Tablet) 75 mcg PO DAILY@0630 [facility] Last Admin: 03/11/23 05:58 Dose: 75 mcg Lidocaine (Lidocaine 4 % Patch Adh..Patch) 1 patch TRANSDERMA DAILY [facility]; Protocol Last Admin: 03/11/23 08:01 Dose: 1 patch Loperamide HCl (Loperamide Hcl 2 Mg Capsule) 2 mg PO Q6H PRN PRN Reason: diarrhea Last Admin: 03/11/23 06:56 Dose: 2 mg Magnesium Hydroxide (Milk Of Magnesia 30 Ml Oral.Susp) 30 ml PO DAILY PRN PRN Reason: Constipation Magnesium Hydroxide (Milk Of Magnesia 30 Ml Oral.Susp) 30 ml PO DAILY PRN PRN Reason: Constipation Memantine (Memantine Hcl 10 Mg Tablet) 10 mg PO BID JODEE Last Admin: 03/11/23 08:02 Dose: 10 mg Metoprolol Tartrate (Metoprolol Tartrate 25 Mg Tablet) 25 mg PO DAILY [facility]; Protocol Last Admin: 03/11/23 08:02 Dose: 25 mg Quetiapine Fumarate (Quetiapine Fumarate 50 Mg Tablet) 50 mg PO Q6H PRN PRN Reason: agitation Last Admin: 02/26/23 00:10 Dose: 50 mg Sodium Biphosphate/Sodium Phosphate (Sodium Phosphate,[place]-Dibasic 133 Ml Enema) 133 ml TN DAILY PRN PRN Reason: Constipation Trazodone HCl (Trazodone Hcl 50 Mg Tablet) 50 mg PO BEDTIME PRN PRN Reason: Insomnia Last Admin: 03/10/23 20:34 Dose: 50 mg Valsartan (Valsartan 80 Mg Tablet) 80 mg PO BEDTIME [facility]; Protocol Last Admin: 03/10/23 20:33 Dose: 80 mg Allergies Allergies Allergy/AdvReac Type Severity Reaction Status Date / Time aspirin [ASPIRIN] Allergy Unknown UNKNOWN Verified 01/01/23 09:43 Assessment & Plan Assessment & Plan (1) Major neurocognitive disorder: Status: Acute Code(s): F03.90 - Unspecified dementia, unspecified severity, without behavioral disturbance, psychotic disturbance, mood disturbance, and anxiety (2) Mood disorder: Status: Acute Code(s): F39 - Unspecified mood [affective] disorder Plan Ms. Landis is a 67 year-old woman with hx of Mood Disorder (untreated for most of her life) and neurocognitive disorder who was brought via EMS from [facility] due to increase verbal aggression towards roommate and one of their staff. Pt is known to this marketing copywriter through previous assessment for similar presentation. Pt presents as calmer, she does admit to being verbally abusive, although denies any intent to harm self or others. She does lack the insight into how her behaviors affect others and her relationships with others. This tendency to have difficulty seeing other people's need per daughter has been life long. Pt presents with tendency to be irritable, at times explosive but not physically aggressive. She was started back in September on low dose of seroquel but no further medication adjustments have been made to manage these symptoms, which are disruptive but not life threatening nor at imminent risk of harm to self or others. As consequence of minimal intervention in the community, pt has had more frequent ED visits here and at [facility]. We discussed risks, benefits and alternative treatment options, pt agrees to start mood stabilizer for impulsive, explosive behaviors. We also discussed switching seroquel to risperidone. Pt is orientation has been intact all along. PLAN 01/20 schedule trazodone 50mg po qhs for sleep. 01/21 continue tx. depakote levels scheduled for tomorrow AM with ammonia levels. 01/22 trough depakote level 75, ammonia 41. continue tx. continue tx 01/24 continue tx. 01/25 continue tx. 01/26 continue tx. 01/27: continue current mgmt. 01/28: continue current mgmt. 01/29 continue tx. 01/30 continue tx. 01/31 continues tx-continue monitor bilat LE- doppler did not show DVT. 02/01: No change in medications, continue current plan of care. 02/02: Continue current plan. 02/03: Continue current plans and regimen 02/04 continue tx. 02/05 continue tx. 02/06 continue tx. 02/07 continue tx. 02/09: no changes 02/10 continue tx. 02/11 continue tx. 02/12 continue tx. 02/13 continue tx. 02/14 continue tx. awaiting placement. 02/15: Continue current treatment plan. 02/16: Continue current plan. 02/17 continue tx. 02/18 continue tx. 02/19 continue tx. 02/20 continue tx. 02/21 continue tx. 02/22: Continue current plans and regimen 02/23: Continue current plans and regimen 02/24 continue tx 02/25 continue tx. 02/26 continue tx. 02/27 continue tx. 02/28 continue tx. 03/01 continue same treatment 03/02 continue same treatment 03/03 continue tx. 03/04 continue tx. awaiting placement 03/05 continue tx. 03/06 continue tx. awaiting placement. 03/07 continue tx. 03/08: received oxycodone 5, ativan 1 mg this morning for what appears to be lower back spasm. try flexeril 5 mg one time. otherwise continue current mgmt. 03/09: no c/o back pain today. calm, cooperative. no behavioral issues. asking when she will be discharging. continue current mgmt. 03/10 continue tx. 03/11 continue tx. Reason for continued inpatient stay Substantial Risk for: inability to function Time Spent With Patient Time: Total time managing care of this patient today ____ minutes.
[2023-03-11 11:30] LABS: Glucose, Whole Blood 193 mg/dL (60-115)
[2023-03-11] MEDS: Insulin Lispro 100 UNIT/ML 3 ML VIAL SUBCUT (11:32)
[2023-03-11 16:18] LABS: Glucose, Whole Blood 147 mg/dL (60-115)
[2023-03-11 18:00] VITALS: BP 141/63; PULSE 69; RESP 18; TEMP 36.6; O2SAT 95
[2023-03-11] MEDS: Insulin Glargine,Hum.rec.anlog 100 UNIT/ML 10 ML VIAL 47 UNIT SUBCUT (20:57)
[2023-03-11] MEDS: Atorvastatin Calcium 20 MG TABLET PO (20:58)
[2023-03-11] MEDS: Gabapentin 600 MG TABLET 1200 MG PO (20:58)
[2023-03-11] MEDS: traZODone HCL 50 MG TABLET PO (20:59)
[2023-03-11] MEDS: Donepezil HCl 10 MG TABLET PO (20:59)
[2023-03-11] MEDS: Valsartan 80 MG TABLET PO (20:59)
[2023-03-11 21:32] LABS: Glucose, Whole Blood 283 mg/dL (60-115)
[2023-03-11] MEDS: Divalproex Sodium 500 MG TABLET.DR PO (22:49)
[2023-03-12] MEDS: Levothyroxine Sodium 75 MCG TABLET PO (06:15)
[2023-03-12 06:38] LABS: Glucose, Whole Blood 95 mg/dL (60-115)
[2023-03-12 09:03] VITALS: BP 119/58; PULSE 70; RESP 15; TEMP 36.5; O2SAT 97
[2023-03-12] MEDS: Clopidogrel Bisulfate 75 MG TABLET PO (09:04)
[2023-03-12] MEDS: Lidocaine 4 % Patch ADH..PATCH 1 PATCH TRANSDERMA (09:04)
[2023-03-12] MEDS: Escitalopram Oxalate 10 MG TABLET PO (09:04)
[2023-03-12] MEDS: Divalproex Sodium 250 MG TABLET.DR PO (09:04)
[2023-03-12] MEDS: Metoprolol Tartrate 25 MG TABLET PO (09:04)
[2023-03-12] MEDS: Memantine HCl 10 MG TABLET PO ×2 (09:04→20:46)
[2023-03-12] MEDS: Acetaminophen 325 MG TABLET 650 MG PO (10:56)
[2023-03-12 11:31] LABS: Glucose, Whole Blood 280 mg/dL (60-115)
[2023-03-12] MEDS: Insulin Lispro 100 UNIT/ML 3 ML VIAL SUBCUT ×2 (11:34→17:50)
[2023-03-12] MEDS: Celecoxib 200 MG CAPSULE PO (13:07)
[2023-03-12] MEDS: Gabapentin 600 MG TABLET PO ×2 (13:07→18:33)
[2023-03-12] MEDS: traMADoL HCL 50 MG TABLET 25 MG PO (16:27)
[2023-03-12 16:38] LABS: Glucose, Whole Blood 267 mg/dL (60-115)
[2023-03-12 18:00] VITALS: BP 127/58; PULSE 70; RESP 16; TEMP 36.3; O2SAT 95
--- NOTE | 2023-03-12 18:34 | PC.NURSE ---
THIS PT CONTINUED TO C/O PAIN SO THIS NURSE TEXTED MARILU PAZ NP VIA [facility], AND SHE ASKED THIS RN TO PROVIDE BEDTIME DOSE OF GABAPENTIN AT THIS TIME. NURSE TO ADMINISTER MEDICATION TO PT NOW.
--- NOTE | 2023-03-12 20:16 | P.PNPSI_ITS ---
Subjective Subjective Date of Service: 03/12/23 Reason For Visit: Depression Subjective Notes: Conditional Voluntary Healthcare Proxy: Yes Interim History: Pt reports pain from my teeth to my legs and buttocks. When asked to describe pain, she states is generalized all over. She denies pins and needles, denies that it is sharp in nature. She received tylenol with limited effect. She had celebrex 200mg po- hx of arthritis. And she received part of gabapentin dose at the time. Later she continues to complain 10 out of 10 pain. She receive one time dose of tramadol 25mg. VS stable. No signs of infection, afebrile, no problems breathing. Review of Systems Review of Systems nothing acute Yes all other systems are reviewed and are negative Mental Status Exam Mental Status Exam Patient Appearance: Appropriate Patient Orientation: Person, Place, Time and Situation Level of Consciousness: Awake Patient Behavior: Guarded and Passive Mood Description: Withdrawn Affect Description: Constricted Patient Cognition Impaired: Yes Ability to Follow Directions: Fair Speech Pattern: Clear Diagnostics Vital Signs (24Hr): Vital Signs - 24 hr 03/12/23 09:03 Temperature 97.7 F Pulse Rate 70 Respiratory Rate 15 Blood Pressure 119/58 L Pulse Oximetry 97 Oxygen Delivery Method Room Air BMI result Body Mass Index 28.4 Labs 01/07/23 17:49 01/07/23 17:49 Labs: Laboratory Results - last 48 hr 03/10/23 03/11/23 03/11/23 19:52 04:41 07:18 POC Glucose 246 H 69 110 03/11/23 03/11/23 03/11/23 11:22 16:13 20:55 POC Glucose 193 H 147 H 283 H 03/12/23 03/12/23 03/12/23 06:18 11:24 16:32 POC Glucose 95 280 H 267 H Imaging Radiology Impressions: ITS Impressions Venous Duplex 01/30/23 16:02 IMPRESSION: No DVT demonstrated in the bilateral lower extremity. Medications Medications Current Medications Acetaminophen (Acetaminophen 325 Mg Tablet) 650 mg PO Q6H PRN PRN Reason: Headache/Pain Mild Scale (1-3) Last Admin: 03/12/23 10:56 Dose: 650 mg Al Hydroxide/Mg Hydroxide (Magnesium Hydrox/Alum Hydrox 30 Ml Oral.Susp) 30 ml PO Q6H PRN PRN Reason: Heartburn/Nausea Last Admin: 02/10/23 22:17 Dose: 30 ml Artificial Tears (Artificial Tears 15 Ml Drops) 1 drop EYE-BOTH Q4H PRN PRN Reason: Dry Eyes Atorvastatin Calcium (Atorvastatin Calcium 20 Mg Tablet) 20 mg PO BEDTIME [facility] Last Admin: 03/11/23 20:58 Dose: 20 mg Bisacodyl (Bisacodyl 10 Mg Supp.Rect) 10 mg [place] DAILY PRN PRN Reason: Constipation Clopidogrel Bisulfate (Clopidogrel Bisulfate 75 Mg Tablet) 75 mg PO DAILY [facility] Last Admin: 03/12/23 09:04 Dose: 75 mg Divalproex Sodium (Divalproex Sodium 500 Mg Tablet.) 500 mg PO BEDTIME [facility] Last Admin: 03/11/23 22:49 Dose: 500 mg Divalproex Sodium (Divalproex Sodium 250 Mg Tablet.) 250 mg PO DAILY [facility] Last Admin: 03/12/23 09:04 Dose: 250 mg Donepezil HCl (Donepezil Hcl 10 Mg Tablet) 10 mg PO BEDTIME [facility] Last Admin: 03/11/23 20:59 Dose: 10 mg Escitalopram Oxalate (Escitalopram Oxalate 10 Mg Tablet) 10 mg PO DAILY [facility] Last Admin: 03/12/23 09:04 Dose: 10 mg Gabapentin (Gabapentin 600 Mg Tablet) 600 mg PO BEDTIME [facility] Last Admin: 03/12/23 18:33 Dose: 600 mg Gabapentin (Gabapentin 600 Mg Tablet) 600 mg PO DAILY@1300 [facility] Last Admin: 03/12/23 13:07 Dose: 600 mg Glucagon (Glucagon Hcl 1 Mg Vial) 1 mg SUBCUT Q20M PRN PRN Reason: BG <70 AND UNRESPONSIVE Glucose (Glucose Gel 15 Gm Gel..Gram.) 15 gm PO Q15M PRN PRN Reason: BG <70 AND RESPONSIVE Last Admin: 01/30/23 03:12 Dose: 15 gm Insulin Glargine (Insulin Glargine,Hum.Rec.Anlog 100 Unit/Ml 10 Ml Vial) 47 unit SUBCUT BEDTIME [facility] Last Admin: 03/11/23 20:57 Dose: 47 unit Insulin Human Lispro (Insulin Lispro 100 Unit/Ml 3 Ml Vial) 0 unit SUBCUT TIDAC [facility]; Protocol Last Admin: 03/12/23 17:50 Dose: 8 unit Levothyroxine Sodium (Levothyroxine Sodium 75 Mcg Tablet) 75 mcg PO DAILY@0630 [facility] Last Admin: 03/12/23 06:15 Dose: 75 mcg Lidocaine (Lidocaine 4 % Patch Adh..Patch) 1 patch TRANSDERMA DAILY [facility]; Protocol Last Admin: 03/12/23 09:04 Dose: 1 patch Loperamide HCl (Loperamide Hcl 2 Mg Capsule) 2 mg PO Q6H PRN PRN Reason: diarrhea Last Admin: 03/11/23 06:56 Dose: 2 mg Magnesium Hydroxide (Milk Of Magnesia 30 Ml Oral.Susp) 30 ml PO DAILY PRN PRN Reason: Constipation Magnesium Hydroxide (Milk Of Magnesia 30 Ml Oral.Susp) 30 ml PO DAILY PRN PRN Reason: Constipation Memantine (Memantine Hcl 10 Mg Tablet) 10 mg PO BID [facility] Last Admin: 03/12/23 09:04 Dose: 10 mg Metoprolol Tartrate (Metoprolol Tartrate 25 Mg Tablet) 25 mg PO DAILY [facility]; Protocol Last Admin: 03/12/23 09:04 Dose: 25 mg Quetiapine Fumarate (Quetiapine Fumarate 50 Mg Tablet) 50 mg PO Q6H PRN PRN Reason: agitation Last Admin: 02/26/23 00:10 Dose: 50 mg Sodium Biphosphate/Sodium Phosphate (Sodium Phosphate,[place]-Dibasic 133 Ml Enema) 133 ml [place] DAILY PRN PRN Reason: Constipation Trazodone HCl (Trazodone Hcl 50 Mg Tablet) 50 mg PO BEDTIME PRN PRN Reason: Insomnia Last Admin: 03/11/23 20:59 Dose: 50 mg Valsartan (Valsartan 80 Mg Tablet) 80 mg PO BEDTIME [facility]; Protocol Last Admin: 03/11/23 20:59 Dose: 80 mg Allergies Allergies Allergy/AdvReac Type Severity Reaction Status Date / Time aspirin [ASPIRIN] Allergy Unknown UNKNOWN Verified 01/01/23 09:43 Assessment & Plan Assessment & Plan (1) Major neurocognitive disorder: Status: Acute Code(s): F03.90 - Unspecified dementia, unspecified severity, without behavioral disturbance, psychotic disturbance, mood disturbance, and anxiety (2) Mood disorder: Status: Acute Code(s): F39 - Unspecified mood [affective] disorder Plan Ms. Landis is a 67 year-old woman with hx of Mood Disorder (untreated for most of her life) and neurocognitive disorder who was brought via EMS from [facility] due to increase verbal aggression towards roommate and one of their staff. Pt is known to this commercial loan underwriter through previous assessment for similar presentation. Pt presents as calmer, she does admit to being verbally abusive, although denies any intent to harm self or others. She does lack the insight into how her behaviors affect others and her relationships with others. This tendency to have difficulty seeing other people's need per daughter has been life long. Pt presents with tendency to be irritable, at times explosive but not physically aggressive. She was started back in September on low dose of seroquel but no further medication adjustments have been made to manage these symptoms, which are disruptive but not life threatening nor at imminent risk of harm to self or others. As consequence of minimal intervention in the community, pt has had more frequent ED visits here and at [facility]. We discussed risks, benefits and alternative treatment options, pt agrees to start mood stabilizer for impulsive, explosive behaviors. We also discussed switching seroquel to risperidone. Pt is orientation has been intact all along. PLAN 01/20 schedule trazodone 50mg po qhs for sleep. 01/21 continue tx. depakote levels scheduled for tomorrow AM with ammonia levels. 01/22 trough depakote level 75, ammonia 41. continue tx. continue tx 01/24 continue tx. 01/25 continue tx. 01/26 continue tx. 01/27: continue current mgmt. 01/28: continue current mgmt. 01/29 continue tx. 01/30 continue tx. 01/31 continues tx-continue monitor bilat LE- doppler did not show DVT. 02/01: No change in medications, continue current plan of care. 02/02: Continue current plan. 02/03: Continue current plans and regimen 02/04 continue tx. 02/05 continue tx. 02/06 continue tx. 02/07 continue tx. 02/09: no changes 02/10 continue tx. 02/11 continue tx. 02/12 continue tx. 02/13 continue tx. 02/14 continue tx. awaiting placement. 02/15: Continue current treatment plan. 02/16: Continue current plan. 02/17 continue tx. 02/18 continue tx. 02/19 continue tx. 02/20 continue tx. 02/21 continue tx. 02/22: Continue current plans and regimen 02/23: Continue current plans and regimen 02/24 continue tx 02/25 continue tx. 02/26 continue tx. 02/27 continue tx. 02/28 continue tx. 03/01 continue same treatment 03/02 continue same treatment 03/03 continue tx. 03/04 continue tx. awaiting placement 03/05 continue tx. 03/06 continue tx. awaiting placement. 03/07 continue tx. 03/08: received oxycodone 5, ativan 1 mg this morning for what appears to be lower back spasm. try flexeril 5 mg one time. otherwise continue current mgmt. 03/09: no c/o back pain today. calm, cooperative. no behavioral issues. asking when she will be discharging. continue current mgmt. 03/10 continue tx. 03/11 continue tx. 03/12 continue tx. Reason for continued inpatient stay Substantial Risk for: inability to function Time Spent With Patient Time: Total time managing care of this patient today ____ minutes.
[2023-03-12] MEDS: Divalproex Sodium 500 MG TABLET.DR PO (20:46)
[2023-03-12] MEDS: Atorvastatin Calcium 20 MG TABLET PO (20:46)
[2023-03-12] MEDS: traZODone HCL 50 MG TABLET PO (20:47)
[2023-03-12] MEDS: Donepezil HCl 10 MG TABLET PO (20:47)
[2023-03-12] MEDS: Valsartan 80 MG TABLET PO (20:47)
[2023-03-12] MEDS: Insulin Glargine,Hum.rec.anlog 100 UNIT/ML 10 ML VIAL 47 UNIT SUBCUT (20:51)
[2023-03-12] MEDS: oxyCODONE HCl Immed Release 5 MG TABLET PO (22:02)
[2023-03-12] MEDS: LORazepam 1 MG TABLET PO (22:03)
--- NOTE | 2023-03-13 00:11 | PC.NURSE ---
nps liz yoder contacted notified 1. pt experiencing generalize body pain 2. pt is agitated and restless 3. she states that the medicine given earlier has not helped(tramadol/ cerebrex/tylenol) plan will give a. ativan 1 mg po 2. oxycodone 5 mg po plan- a. oxycodone 5 mg po now 2. ativan 1 mg po now
[2023-03-13 03:46] LABS: Glucose, Whole Blood 271 mg/dL (60-115)
[2023-03-13] MEDS: Levothyroxine Sodium 75 MCG TABLET PO (06:03)
[2023-03-13 06:23] LABS: Glucose, Whole Blood 228 mg/dL (60-115)
[2023-03-13 07:00] VITALS: BMI 28.5
[2023-03-13 09:23] VITALS: BP 139/64; PULSE 74; RESP 15; TEMP 36.3; O2SAT 95
[2023-03-13] MEDS: Escitalopram Oxalate 10 MG TABLET PO (09:25)
[2023-03-13] MEDS: Metoprolol Tartrate 25 MG TABLET PO (09:25)
[2023-03-13] MEDS: Memantine HCl 10 MG TABLET PO ×2 (09:25→20:20)
[2023-03-13] MEDS: Clopidogrel Bisulfate 75 MG TABLET PO (09:25)
[2023-03-13] MEDS: Divalproex Sodium 250 MG TABLET.DR PO (09:25)
[2023-03-13] MEDS: Lidocaine 4 % Patch ADH..PATCH 1 PATCH TRANSDERMA (09:25)
[2023-03-13] MEDS: Insulin Lispro 100 UNIT/ML 3 ML VIAL SUBCUT ×3 (09:28→16:54)
[2023-03-13 11:29] LABS: Glucose, Whole Blood 317 mg/dL (60-115)
[2023-03-13] MEDS: Gabapentin 600 MG TABLET PO ×2 (13:01→20:20)
[2023-03-13 16:37] LABS: Glucose, Whole Blood 209 mg/dL (60-115)
--- NOTE | 2023-03-13 17:20 | HO.PSYCHPN ---
Subjective Subjective Date of Service: 03/13/23 Reason For Visit: Depression Subjective Notes: Conditional Voluntary Interim History: Pt reports feeling better. She denies any pain today. She has been visible on the unit. She has attended assigned groups. VS stable, no signs of infection. Afebrile. Slept through the night. No behavioral concerns. Review of Systems Review of Systems nothing acute Yes all other systems are reviewed and are negative Mental Status Exam Mental Status Exam Narrative: Appearance: wearing hospital gown, fair hygiene, in NAD Behavior: cooperative Psychomotor: no agitation noted Speech: clear, normal rate/rhythm/volume, spontaneous TP: linear TC: no overt delusional content noted or reported, feeling well Mood: okay Affect: congruent SI: denies HI: denies VH/AH: none Delusions: none Insight/judgment:fair x 2. Memory/cog: pt alert, oriented to place, situation, month, date and year. Diagnostics Vital Signs (24Hr): Vital Signs - 24 hr 03/12/23 18:00 03/13/23 09:23 Temperature 97.4 F 97.4 F Pulse Rate 70 74 Respiratory Rate 16 15 Blood Pressure 127/58 L 139/64 Pulse Oximetry 95 95 Oxygen Delivery Method Room Air Room Air BMI result Body Mass Index 28.5 Labs 01/07/23 17:49 01/07/23 17:49 Labs: Laboratory Results - last 48 hr 03/11/23 03/12/23 03/12/23 20:55 06:18 11:24 POC Glucose 283 H 95 280 H 03/12/23 03/12/23 03/13/23 16:32 20:44 06:02 POC Glucose 267 H 271 H 228 H 03/13/23 03/13/23 11:26 16:27 POC Glucose 317 H 209 H Imaging Radiology Impressions: ITS Impressions Venous Duplex 01/30/23 16:02 IMPRESSION: No DVT demonstrated in the bilateral lower extremity. Medications Medications Current Medications Acetaminophen (Acetaminophen 325 Mg Tablet) 650 mg PO Q6H PRN PRN Reason: Headache/Pain Mild Scale (1-3) Last Admin: 03/12/23 10:56 Dose: 650 mg Al Hydroxide/Mg Hydroxide (Magnesium Hydrox/Alum Hydrox 30 Ml Oral.Susp) 30 ml PO Q6H PRN PRN Reason: Heartburn/Nausea Last Admin: 02/10/23 22:17 Dose: 30 ml Artificial Tears (Artificial Tears 15 Ml Drops) 1 drop EYE-BOTH Q4H PRN PRN Reason: Dry Eyes Atorvastatin Calcium (Atorvastatin Calcium 20 Mg Tablet) 20 mg PO BEDTIME COUNTS INCLUDE 234 BEDS AT THE [facility] Last Admin: 03/12/23 20:46 Dose: 20 mg Bisacodyl (Bisacodyl 10 Mg Supp.Rect) 10 mg GA DAILY PRN PRN Reason: Constipation Clopidogrel Bisulfate (Clopidogrel Bisulfate 75 Mg Tablet) 75 mg PO DAILY COUNTS INCLUDE 234 BEDS AT THE [facility] Last Admin: 03/13/23 09:25 Dose: 75 mg Divalproex Sodium (Divalproex Sodium 500 Mg Tablet.) 500 mg PO BEDTIME COUNTS INCLUDE 234 BEDS AT THE [facility] Last Admin: 03/12/23 20:46 Dose: 500 mg Divalproex Sodium (Divalproex Sodium 250 Mg Tablet.) 250 mg PO DAILY COUNTS INCLUDE 234 BEDS AT THE [facility] Last Admin: 03/13/23 09:25 Dose: 250 mg Donepezil HCl (Donepezil Hcl 10 Mg Tablet) 10 mg PO BEDTIME COUNTS INCLUDE 234 BEDS AT THE [facility] Last Admin: 03/12/23 20:47 Dose: 10 mg Escitalopram Oxalate (Escitalopram Oxalate 10 Mg Tablet) 10 mg PO DAILY COUNTS INCLUDE 234 BEDS AT THE [facility] Last Admin: 03/13/23 09:25 Dose: 10 mg Gabapentin (Gabapentin 600 Mg Tablet) 600 mg PO BEDTIME COUNTS INCLUDE 234 BEDS AT THE [facility] Last Admin: 03/12/23 18:33 Dose: 600 mg Gabapentin (Gabapentin 600 Mg Tablet) 600 mg PO DAILY@1300 COUNTS INCLUDE 234 BEDS AT THE [facility] Last Admin: 03/13/23 13:01 Dose: 600 mg Glucagon (Glucagon Hcl 1 Mg Vial) 1 mg SUBCUT Q20M PRN PRN Reason: BG <70 AND UNRESPONSIVE Glucose (Glucose Gel 15 Gm Gel..Gram.) 15 gm PO Q15M PRN PRN Reason: BG <70 AND RESPONSIVE Last Admin: 01/30/23 03:12 Dose: 15 gm Insulin Glargine (Insulin Glargine,Hum.Rec.Anlog 100 Unit/Ml 10 Ml Vial) 47 unit SUBCUT BEDTIME COUNTS INCLUDE 234 BEDS AT THE [facility] Last Admin: 03/12/23 20:51 Dose: 47 unit Insulin Human Lispro (Insulin Lispro 100 Unit/Ml 3 Ml Vial) 0 unit SUBCUT TIDAC COUNTS INCLUDE 234 BEDS AT THE [facility]; Protocol Last Admin: 03/13/23 16:54 Dose: 6 unit Levothyroxine Sodium (Levothyroxine Sodium 75 Mcg Tablet) 75 mcg PO DAILY@0630 COUNTS INCLUDE 234 BEDS AT THE [facility] Last Admin: 03/13/23 06:03 Dose: 75 mcg Lidocaine (Lidocaine 4 % Patch Adh..Patch) 1 patch TRANSDERMA DAILY [facility]E; Protocol Last Admin: 03/13/23 09:25 Dose: 1 patch Loperamide HCl (Loperamide Hcl 2 Mg Capsule) 2 mg PO Q6H PRN PRN Reason: diarrhea Last Admin: 03/11/23 06:56 Dose: 2 mg Magnesium Hydroxide (Milk Of Magnesia 30 Ml Oral.Susp) 30 ml PO DAILY PRN PRN Reason: Constipation Magnesium Hydroxide (Milk Of Magnesia 30 Ml Oral.Susp) 30 ml PO DAILY PRN PRN Reason: Constipation Memantine (Memantine Hcl 10 Mg Tablet) 10 mg PO BID JODEE Last Admin: 03/13/23 09:25 Dose: 10 mg Metoprolol Tartrate (Metoprolol Tartrate 25 Mg Tablet) 25 mg PO DAILY [facility]; Protocol Last Admin: 03/13/23 09:25 Dose: 25 mg Quetiapine Fumarate (Quetiapine Fumarate 50 Mg Tablet) 50 mg PO Q6H PRN PRN Reason: agitation Last Admin: 02/26/23 00:10 Dose: 50 mg Sodium Biphosphate/Sodium Phosphate (Sodium Phosphate,[place]-Dibasic 133 Ml Enema) 133 ml GA DAILY PRN PRN Reason: Constipation Trazodone HCl (Trazodone Hcl 50 Mg Tablet) 50 mg PO BEDTIME PRN PRN Reason: Insomnia Last Admin: 03/12/23 20:47 Dose: 50 mg Valsartan (Valsartan 80 Mg Tablet) 80 mg PO BEDTIME [facility]; Protocol Last Admin: 03/12/23 20:47 Dose: 80 mg Allergies Allergies Allergy/AdvReac Type Severity Reaction Status Date / Time aspirin [ASPIRIN] Allergy Unknown UNKNOWN Verified 01/01/23 09:43 Assessment & Plan Assessment & Plan (1) Major neurocognitive disorder: Status: Acute Code(s): F03.90 - Unspecified dementia, unspecified severity, without behavioral disturbance, psychotic disturbance, mood disturbance, and anxiety (2) Mood disorder: Status: Acute Code(s): F39 - Unspecified mood [affective] disorder Plan Ms. Landis is a 67 year-old woman with hx of Mood Disorder (untreated for most of her life) and neurocognitive disorder who was brought via EMS from [facility] due to increase verbal aggression towards roommate and one of their staff. Pt is known to this director underwriter sales through previous assessment for similar presentation. Pt presents as calmer, she does admit to being verbally abusive, although denies any intent to harm self or others. She does lack the insight into how her behaviors affect others and her relationships with others. This tendency to have difficulty seeing other people's need per daughter has been life long. Pt presents with tendency to be irritable, at times explosive but not physically aggressive. She was started back in September on low dose of seroquel but no further medication adjustments have been made to manage these symptoms, which are disruptive but not life threatening nor at imminent risk of harm to self or others. As consequence of minimal intervention in the community, pt has had more frequent ED visits here and at [facility]. We discussed risks, benefits and alternative treatment options, pt agrees to start mood stabilizer for impulsive, explosive behaviors. We also discussed switching seroquel to risperidone. Pt is orientation has been intact all along. PLAN 01/20 schedule trazodone 50mg po qhs for sleep. 01/21 continue tx. depakote levels scheduled for tomorrow AM with ammonia levels. 01/22 trough depakote level 75, ammonia 41. continue tx. continue tx 01/24 continue tx. 01/25 continue tx. 01/26 continue tx. 01/27: continue current mgmt. 01/28: continue current mgmt. 01/29 continue tx. 01/30 continue tx. 01/31 continues tx-continue monitor bilat LE- doppler did not show DVT. 02/01: No change in medications, continue current plan of care. 02/02: Continue current plan. 02/03: Continue current plans and regimen 02/04 continue tx. 02/05 continue tx. 02/06 continue tx. 02/07 continue tx. 02/09: no changes 02/10 continue tx. 02/11 continue tx. 02/12 continue tx. 02/13 continue tx. 02/14 continue tx. awaiting placement. 02/15: Continue current treatment plan. 02/16: Continue current plan. 02/17 continue tx. 02/18 continue tx. 02/19 continue tx. 02/20 continue tx. 02/21 continue tx. 02/22: Continue current plans and regimen 02/23: Continue current plans and regimen 02/24 continue tx 02/25 continue tx. 02/26 continue tx. 02/27 continue tx. 02/28 continue tx. 03/01 continue same treatment 03/02 continue same treatment 03/03 continue tx. 03/04 continue tx. awaiting placement 03/05 continue tx. 03/06 continue tx. awaiting placement. 03/07 continue tx. 03/08: received oxycodone 5, ativan 1 mg this morning for what appears to be lower back spasm. try flexeril 5 mg one time. otherwise continue current mgmt. 03/09: no c/o back pain today. calm, cooperative. no behavioral issues. asking when she will be discharging. continue current mgmt. 03/10 continue tx. 03/11 continue tx. 03/12 continue tx. 03/13 continue tx. Reason for continued inpatient stay Substantial Risk for: inability to function Time Spent With Patient Time: Total time managing care of this patient today ____ minutes.
[2023-03-13 19:40] VITALS: BP 140/66; PULSE 63; RESP 18; TEMP 36.6; O2SAT 98
[2023-03-13 20:04] LABS: Glucose, Whole Blood 262 mg/dL (60-115)
[2023-03-13] MEDS: Atorvastatin Calcium 20 MG TABLET PO (20:20)
[2023-03-13] MEDS: Divalproex Sodium 500 MG TABLET.DR PO (20:20)
[2023-03-13] MEDS: Donepezil HCl 10 MG TABLET PO (20:20)
[2023-03-13] MEDS: Valsartan 80 MG TABLET PO (20:20)
[2023-03-13] MEDS: Insulin Glargine,Hum.rec.anlog 100 UNIT/ML 10 ML VIAL 47 UNIT SUBCUT (20:23)
[2023-03-14] MEDS: traZODone HCL 50 MG TABLET PO ×2 (01:45→21:15)
[2023-03-14] MEDS: Acetaminophen 325 MG TABLET 650 MG PO (02:09)
[2023-03-14] MEDS: Levothyroxine Sodium 75 MCG TABLET PO (06:11)
[2023-03-14 06:38] LABS: Glucose, Whole Blood 207 mg/dL (60-115)
[2023-03-14 08:04] VITALS: BP 111/57; PULSE 90; RESP 15; TEMP 36.6; O2SAT 98
[2023-03-14 09:32] VITALS: BP 124/86; PULSE 77; RESP 15; TEMP 36.6; O2SAT 93
[2023-03-14] MEDS: Escitalopram Oxalate 10 MG TABLET PO (09:33)
[2023-03-14] MEDS: Clopidogrel Bisulfate 75 MG TABLET PO (09:33)
[2023-03-14] MEDS: Memantine HCl 10 MG TABLET PO ×2 (09:33→21:16)
[2023-03-14] MEDS: Divalproex Sodium 250 MG TABLET.DR PO (09:33)
[2023-03-14] MEDS: Metoprolol Tartrate 25 MG TABLET PO (09:33)
[2023-03-14] MEDS: Insulin Lispro 100 UNIT/ML 3 ML VIAL SUBCUT ×3 (09:34→16:52)
[2023-03-14 11:33] LABS: Glucose, Whole Blood 292 mg/dL (60-115)
[2023-03-14] MEDS: Gabapentin 600 MG TABLET PO ×2 (12:56→21:15)
[2023-03-14 16:42] LABS: Glucose, Whole Blood 242 mg/dL (60-115)
[2023-03-14 18:00] VITALS: BP 160/69; PULSE 72; RESP 18; TEMP 36; O2SAT 95
--- NOTE | 2023-03-14 18:48 | P.PNPSI_ITS ---
Subjective Subjective Date of Service: 03/14/23 Reason For Visit: Depression Subjective Notes: Conditional Voluntary Interim History: Pt reports having headache. She denies leg pain. She also denies neck pain. She has been visible on the unit. Attends assigned groups, not very social with peers, but pleasant on approach. Medication Compliance: Yes Side effects from medications: No Review of Systems Review of Systems nothing acute Yes all other systems are reviewed and are negative Mental Status Exam Mental Status Exam Narrative: Appearance: wearing hospital gown, fair hygiene, in NAD Behavior: cooperative Psychomotor: no agitation noted Speech: clear, normal rate/rhythm/volume, spontaneous TP: linear TC: no overt delusional content noted or reported, feeling well Mood: okay Affect: congruent SI: denies HI: denies VH/AH: none Delusions: none Insight/judgment:fair x 2. Memory/cog: pt alert, oriented to place, situation, month, date and year. Diagnostics Vital Signs (24Hr): Vital Signs - 24 hr 03/13/23 19:40 03/14/23 08:04 03/14/23 09:32 Temperature 97.8 F 97.8 F 97.9 F Pulse Rate 63 90 77 Respiratory Rate 18 15 15 Blood Pressure 140/66 H 111/57 L 124/86 Pulse Oximetry 98 98 93 Oxygen Delivery Method Room Air Room Air Room Air BMI result Body Mass Index 28.5 Labs 01/07/23 17:49 01/07/23 17:49 Labs: Laboratory Results - last 48 hr 03/12/23 03/13/23 03/13/23 20:44 06:02 11:26 POC Glucose 271 H 228 H 317 H 03/13/23 03/13/23 03/14/23 16:27 19:54 06:20 POC Glucose 209 H 262 H 207 H 03/14/23 03/14/23 11:23 16:38 POC Glucose 292 H 242 H Imaging Radiology Impressions: ITS Impressions Venous Duplex 01/30/23 16:02 IMPRESSION: No DVT demonstrated in the bilateral lower extremity. Medications Medications Current Medications Acetaminophen (Acetaminophen 325 Mg Tablet) 650 mg PO Q6H PRN PRN Reason: Headache/Pain Mild Scale (1-3) Last Admin: 03/14/23 02:09 Dose: 650 mg Al Hydroxide/Mg Hydroxide (Magnesium Hydrox/Alum Hydrox 30 Ml Oral.Susp) 30 ml PO Q6H PRN PRN Reason: Heartburn/Nausea Last Admin: 02/10/23 22:17 Dose: 30 ml Artificial Tears (Artificial Tears 15 Ml Drops) 1 drop EYE-BOTH Q4H PRN PRN Reason: Dry Eyes Atorvastatin Calcium (Atorvastatin Calcium 20 Mg Tablet) 20 mg PO BEDTIME [facility] Last Admin: 03/13/23 20:20 Dose: 20 mg Bisacodyl (Bisacodyl 10 Mg Supp.Rect) 10 mg ID DAILY PRN PRN Reason: Constipation Clopidogrel Bisulfate (Clopidogrel Bisulfate 75 Mg Tablet) 75 mg PO DAILY [facility] Last Admin: 03/14/23 09:33 Dose: 75 mg Divalproex Sodium (Divalproex Sodium 500 Mg Tablet.) 500 mg PO BEDTIME [facility] Last Admin: 03/13/23 20:20 Dose: 500 mg Divalproex Sodium (Divalproex Sodium 250 Mg Tablet.) 250 mg PO DAILY [facility] Last Admin: 03/14/23 09:33 Dose: 250 mg Donepezil HCl (Donepezil Hcl 10 Mg Tablet) 10 mg PO BEDTIME [facility] Last Admin: 03/13/23 20:20 Dose: 10 mg Escitalopram Oxalate (Escitalopram Oxalate 10 Mg Tablet) 10 mg PO DAILY [facility] Last Admin: 03/14/23 09:33 Dose: 10 mg Gabapentin (Gabapentin 600 Mg Tablet) 600 mg PO BEDTIME [facility] Last Admin: 03/13/23 20:20 Dose: 600 mg Gabapentin (Gabapentin 600 Mg Tablet) 600 mg PO DAILY@1300 [facility] Last Admin: 03/14/23 12:56 Dose: 600 mg Glucagon (Glucagon Hcl 1 Mg Vial) 1 mg SUBCUT Q20M PRN PRN Reason: BG <70 AND UNRESPONSIVE Glucose (Glucose Gel 15 Gm Gel..Gram.) 15 gm PO Q15M PRN PRN Reason: BG <70 AND RESPONSIVE Last Admin: 01/30/23 03:12 Dose: 15 gm Insulin Glargine (Insulin Glargine,Hum.Rec.Anlog 100 Unit/Ml 10 Ml Vial) 47 unit SUBCUT BEDTIME [facility] Last Admin: 03/13/23 20:23 Dose: 47 unit Insulin Human Lispro (Insulin Lispro 100 Unit/Ml 3 Ml Vial) 0 unit SUBCUT TIDAC [facility]; Protocol Last Admin: 03/14/23 16:52 Dose: 6 unit Levothyroxine Sodium (Levothyroxine Sodium 75 Mcg Tablet) 75 mcg PO DAILY@0630 [facility] Last Admin: 03/14/23 06:11 Dose: 75 mcg Lidocaine (Lidocaine 4 % Patch Adh..Patch) 1 patch TRANSDERMA DAILY [facility]; Protocol Last Admin: 03/14/23 12:56 Dose: Not Given Loperamide HCl (Loperamide Hcl 2 Mg Capsule) 2 mg PO Q6H PRN PRN Reason: diarrhea Last Admin: 03/11/23 06:56 Dose: 2 mg Magnesium Hydroxide (Milk Of Magnesia 30 Ml Oral.Susp) 30 ml PO DAILY PRN PRN Reason: Constipation Magnesium Hydroxide (Milk Of Magnesia 30 Ml Oral.Susp) 30 ml PO DAILY PRN PRN Reason: Constipation Memantine (Memantine Hcl 10 Mg Tablet) 10 mg PO BID [facility] Last Admin: 03/14/23 09:33 Dose: 10 mg Metoprolol Tartrate (Metoprolol Tartrate 25 Mg Tablet) 25 mg PO DAILY [facility]; Protocol Last Admin: 03/14/23 09:33 Dose: 25 mg Quetiapine Fumarate (Quetiapine Fumarate 50 Mg Tablet) 50 mg PO Q6H PRN PRN Reason: agitation Last Admin: 02/26/23 00:10 Dose: 50 mg Sodium Biphosphate/Sodium Phosphate (Sodium Phosphate,[place]-Dibasic 133 Ml Enema) 133 ml ID DAILY PRN PRN Reason: Constipation Trazodone HCl (Trazodone Hcl 50 Mg Tablet) 50 mg PO BEDTIME PRN PRN Reason: Insomnia Last Admin: 03/14/23 01:45 Dose: 50 mg Valsartan (Valsartan 80 Mg Tablet) 80 mg PO BEDTIME [facility]; Protocol Last Admin: 03/13/23 20:20 Dose: 80 mg Allergies Allergies Allergy/AdvReac Type Severity Reaction Status Date / Time aspirin [ASPIRIN] Allergy Unknown UNKNOWN Verified 01/01/23 09:43 Assessment & Plan Assessment & Plan (1) Major neurocognitive disorder: Status: Acute Code(s): F03.90 - Unspecified dementia, unspecified severity, without behavioral disturbance, psychotic disturbance, mood disturbance, and anxiety (2) Mood disorder: Status: Acute Code(s): F39 - Unspecified mood [affective] disorder Plan Ms. Landis is a 67 year-old woman with hx of Mood Disorder (untreated for most of her life) and neurocognitive disorder who was brought via EMS from [facility] due to increase verbal aggression towards roommate and one of their staff. Pt is known to this chief writer through previous assessment for similar presentation. Pt presents as calmer, she does admit to being verbally abusive, although denies any intent to harm self or others. She does lack the insight into how her behaviors affect others and her relationships with others. This tendency to have difficulty seeing other people's need per daughter has been life long. Pt presents with tendency to be irritable, at times explosive but not physically aggressive. She was started back in September on low dose of seroquel but no further medication adjustments have been made to manage these symptoms, which are disruptive but not life threatening nor at imminent risk of harm to self or others. As consequence of minimal intervention in the community, pt has had more frequent ED visits here and at [facility]. We discussed risks, benefits and alternative treatment options, pt agrees to start mood stabilizer for impulsive, explosive behaviors. We also discussed switching seroquel to risperidone. Pt is orientation has been intact all along. PLAN 01/20 schedule trazodone 50mg po qhs for sleep. 01/21 continue tx. depakote levels scheduled for tomorrow AM with ammonia levels. 01/22 trough depakote level 75, ammonia 41. continue tx. continue tx 01/24 continue tx. 01/25 continue tx. 01/26 continue tx. 01/27: continue current mgmt. 01/28: continue current mgmt. 01/29 continue tx. 01/30 continue tx. 01/31 continues tx-continue monitor bilat LE- doppler did not show DVT. 02/01: No change in medications, continue current plan of care. 02/02: Continue current plan. 02/03: Continue current plans and regimen 02/04 continue tx. 02/05 continue tx. 02/06 continue tx. 02/07 continue tx. 02/09: no changes 02/10 continue tx. 02/11 continue tx. 02/12 continue tx. 02/13 continue tx. 02/14 continue tx. awaiting placement. 02/15: Continue current treatment plan. 02/16: Continue current plan. 02/17 continue tx. 02/18 continue tx. 02/19 continue tx. 02/20 continue tx. 02/21 continue tx. 02/22: Continue current plans and regimen 02/23: Continue current plans and regimen 02/24 continue tx 02/25 continue tx. 02/26 continue tx. 02/27 continue tx. 02/28 continue tx. 03/01 continue same treatment 03/02 continue same treatment 03/03 continue tx. 03/04 continue tx. awaiting placement 03/05 continue tx. 03/06 continue tx. awaiting placement. 03/07 continue tx. 03/08: received oxycodone 5, ativan 1 mg this morning for what appears to be lower back spasm. try flexeril 5 mg one time. otherwise continue current mgmt. 03/09: no c/o back pain today. calm, cooperative. no behavioral issues. asking when she will be discharging. continue current mgmt. 03/10 continue tx. 03/11 continue tx. 03/12 continue tx. 03/13 continue tx. 03/14 continue tx. Reason for continued inpatient stay Substantial Risk for: inability to function Time Spent With Patient Time: Total time managing care of this patient today ____ minutes.
[2023-03-14 20:46] LABS: Glucose, Whole Blood 257 mg/dL (60-115)
[2023-03-14] MEDS: Insulin Glargine,Hum.rec.anlog 100 UNIT/ML 10 ML VIAL 47 UNIT SUBCUT (21:14)
[2023-03-14] MEDS: Divalproex Sodium 500 MG TABLET.DR PO (21:15)
[2023-03-14] MEDS: Atorvastatin Calcium 20 MG TABLET PO (21:15)
[2023-03-14] MEDS: Valsartan 80 MG TABLET PO (21:16)
[2023-03-14] MEDS: Donepezil HCl 10 MG TABLET PO (21:16)
[2023-03-15] MEDS: Levothyroxine Sodium 75 MCG TABLET PO (06:16)
[2023-03-15 06:39] LABS: Glucose, Whole Blood 126 mg/dL (60-115)
[2023-03-15 08:00] VITALS: BP 127/62; PULSE 70; RESP 16; TEMP 36.6; O2SAT 99
[2023-03-15] MEDS: Memantine HCl 10 MG TABLET PO ×2 (08:44→21:00)
[2023-03-15] MEDS: Clopidogrel Bisulfate 75 MG TABLET PO (08:44)
[2023-03-15] MEDS: Metoprolol Tartrate 25 MG TABLET PO (08:44)
[2023-03-15] MEDS: Divalproex Sodium 250 MG TABLET.DR PO (08:44)
[2023-03-15] MEDS: Escitalopram Oxalate 10 MG TABLET PO (08:44)
[2023-03-15] MEDS: Lidocaine 4 % Patch ADH..PATCH 1 PATCH TRANSDERMA (08:46)
[2023-03-15 11:19] LABS: Glucose, Whole Blood 237 mg/dL (60-115)
[2023-03-15] MEDS: Insulin Lispro 100 UNIT/ML 3 ML VIAL SUBCUT ×2 (11:28→16:22)
[2023-03-15] MEDS: Gabapentin 600 MG TABLET PO ×2 (14:46→21:01)
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
[2023-03-15 16:18] LABS: Glucose, Whole Blood 317 mg/dL (60-115)
[2023-03-15] MEDS: Acetaminophen 325 MG TABLET 650 MG PO (16:20)
--- NOTE | 2023-03-15 17:13 | P.PNPSI_ITS ---
Subjective Subjective Date of Service: 03/15/23 Reason For Visit: Depression Interim History: Pt was upset today because a patient scratched her on the chest and she was irritable. She was swearing at the other patient in Jamaican when this typewriter mechanic tried to talk to her. She has been visible on the unit. Attends assigned groups, not very social with peers. Review of Systems Review of Systems nothing acute Yes all other systems are reviewed and are negative Mental Status Exam Mental Status Exam Narrative: Appearance: wearing hospital gown, fair hygiene, in NAD Behavior: cooperative Psychomotor: no agitation noted Speech: clear, normal rate/rhythm/volume, spontaneous TP: linear TC: no overt delusional content noted or reported, feeling well Mood: okay Affect: congruent SI: denies HI: denies VH/AH: none Delusions: none Insight/judgment:fair x 2. Memory/cog: pt alert, oriented to place, situation, month, date and year. Patient Appearance: Appropriate Patient Orientation: Person, Place, Time and Situation Level of Consciousness: Awake Patient Behavior: Guarded and Passive Mood Description: Withdrawn Affect Description: Constricted Patient Cognition Impaired: Yes Ability to Follow Directions: Fair Speech Pattern: Clear Diagnostics Vital Signs (24Hr): Vital Signs - 24 hr 03/14/23 18:00 03/15/23 08:00 Temperature 96.8 F 97.9 F Pulse Rate 72 70 Respiratory Rate 18 16 Blood Pressure 160/69 H 127/62 Pulse Oximetry 95 99 Oxygen Delivery Method Room Air Room Air BMI result Body Mass Index 28.5 Labs 01/07/23 17:49 01/07/23 17:49 Labs: Laboratory Results - last 48 hr 03/13/23 03/14/23 03/14/23 19:54 06:20 11: POC Glucose 262 H 207 H 292 H 03/14/23 03/14/23 03/15/23 16:38 20:00 06:15 POC Glucose 242 H 257 H 126 H 03/15/23 03/15/23 11:08 16:14 POC Glucose 237 H 317 H Imaging Radiology Impressions: ITS Impressions Venous Duplex 01/30/23 16:02 IMPRESSION: No DVT demonstrated in the bilateral lower extremity. Medications Medications Current Medications Acetaminophen (Acetaminophen 325 Mg Tablet) 650 mg PO Q6H PRN PRN Reason: Headache/Pain Mild Scale (1-3) Last Admin: 03/15/23 16:20 Dose: 650 mg Al Hydroxide/Mg Hydroxide (Magnesium Hydrox/Alum Hydrox 30 Ml Oral.Susp) 30 ml PO Q6H PRN PRN Reason: Heartburn/Nausea Last Admin: 02/10/23 22:17 Dose: 30 ml Artificial Tears (Artificial Tears 15 Ml Drops) 1 drop EYE-BOTH Q4H PRN PRN Reason: Dry Eyes Atorvastatin Calcium (Atorvastatin Calcium 20 Mg Tablet) 20 mg PO BEDTIME [facility] Last Admin: 03/14/23 21:15 Dose: 20 mg Bisacodyl (Bisacodyl 10 Mg Supp.Rect) 10 mg SC DAILY PRN PRN Reason: Constipation Clopidogrel Bisulfate (Clopidogrel Bisulfate 75 Mg Tablet) 75 mg PO DAILY [facility] Last Admin: 03/15/23 08:44 Dose: 75 mg Divalproex Sodium (Divalproex Sodium 500 Mg Tablet.) 500 mg PO BEDTIME [facility] Last Admin: 03/14/23 21:15 Dose: 500 mg Divalproex Sodium (Divalproex Sodium 250 Mg Tablet.) 250 mg PO DAILY [facility] Last Admin: 03/15/23 08:44 Dose: 250 mg Donepezil HCl (Donepezil Hcl 10 Mg Tablet) 10 mg PO BEDTIME [facility] Last Admin: 03/14/23 21:16 Dose: 10 mg Escitalopram Oxalate (Escitalopram Oxalate 10 Mg Tablet) 10 mg PO DAILY [facility] Last Admin: 03/15/23 08:44 Dose: 10 mg Gabapentin (Gabapentin 600 Mg Tablet) 600 mg PO BEDTIME [facility] Last Admin: 03/14/23 21:15 Dose: 600 mg Gabapentin (Gabapentin 600 Mg Tablet) 600 mg PO DAILY@1300 [facility] Last Admin: 03/15/23 14:46 Dose: 600 mg Glucagon (Glucagon Hcl 1 Mg Vial) 1 mg SUBCUT Q20M PRN PRN Reason: BG <70 AND UNRESPONSIVE Glucose (Glucose Gel 15 Gm Gel..Gram.) 15 gm PO Q15M PRN PRN Reason: BG <70 AND RESPONSIVE Last Admin: 01/30/23 03:12 Dose: 15 gm Insulin Glargine (Insulin Glargine,Hum.Rec.Anlog 100 Unit/Ml 10 Ml Vial) 47 unit SUBCUT BEDTIME [facility] Last Admin: 03/14/23 21:14 Dose: 47 unit Insulin Human Lispro (Insulin Lispro 100 Unit/Ml 3 Ml Vial) 0 unit SUBCUT TIDAC [facility]; Protocol Last Admin: 03/15/23 16:22 Dose: 10 unit Levothyroxine Sodium (Levothyroxine Sodium 75 Mcg Tablet) 75 mcg PO DAILY@0630 [facility] Last Admin: 03/15/23 06:16 Dose: 75 mcg Lidocaine (Lidocaine 4 % Patch Adh..Patch) 1 patch TRANSDERMA DAILY [facility]; Protocol Last Admin: 03/15/23 08:46 Dose: 1 patch Loperamide HCl (Loperamide Hcl 2 Mg Capsule) 2 mg PO Q6H PRN PRN Reason: diarrhea Last Admin: 03/11/23 06:56 Dose: 2 mg Magnesium Hydroxide (Milk Of Magnesia 30 Ml Oral.Susp) 30 ml PO DAILY PRN PRN Reason: Constipation Magnesium Hydroxide (Milk Of Magnesia 30 Ml Oral.Susp) 30 ml PO DAILY PRN PRN Reason: Constipation Memantine (Memantine Hcl 10 Mg Tablet) 10 mg PO BID [facility] Last Admin: 03/15/23 08:44 Dose: 10 mg Metoprolol Tartrate (Metoprolol Tartrate 25 Mg Tablet) 25 mg PO DAILY [facility]; Protocol Last Admin: 03/15/23 08:44 Dose: 25 mg Quetiapine Fumarate (Quetiapine Fumarate 50 Mg Tablet) 50 mg PO Q6H PRN PRN Reason: agitation Last Admin: 02/26/23 00:10 Dose: 50 mg Sodium Biphosphate/Sodium Phosphate (Sodium Phosphate,[place]-Dibasic 133 Ml Enema) 133 ml SC DAILY PRN PRN Reason: Constipation Trazodone HCl (Trazodone Hcl 50 Mg Tablet) 50 mg PO BEDTIME PRN PRN Reason: Insomnia Last Admin: 03/14/23 21:15 Dose: 50 mg Valsartan (Valsartan 80 Mg Tablet) 80 mg PO BEDTIME [facility]; Protocol Last Admin: 03/14/23 21:16 Dose: 80 mg Allergies Allergies Allergy/AdvReac Type Severity Reaction Status Date / Time aspirin [ASPIRIN] Allergy Unknown UNKNOWN Verified 01/01/23 09:43 Assessment & Plan Assessment & Plan (1) Major neurocognitive disorder: Status: Acute Code(s): F03.90 - Unspecified dementia, unspecified severity, without behavioral disturbance, psychotic disturbance, mood disturbance, and anxiety (2) Mood disorder: Status: Acute Code(s): F39 - Unspecified mood [affective] disorder Plan Ms. Landis is a 67 year-old woman with hx of Mood Disorder (untreated for most of her life) and neurocognitive disorder who was brought via EMS from [facility] due to increase verbal aggression towards roommate and one of their staff. Pt is known to this typewriter mechanic through previous assessment for similar presentation. Pt presents as calmer, she does admit to being verbally abusive, although denies any intent to harm self or others. She does lack the insight into how her behaviors affect others and her relationships with others. This tendency to have difficulty seeing other people's need per daughter has been life long. Pt presents with tendency to be irritable, at times explosive but not physically aggressive. She was started back in September on low dose of seroquel but no further medication adjustments have been made to manage these symptoms, which are disruptive but not life threatening nor at imminent risk of harm to self or others. As consequence of minimal intervention in the community, pt has had more frequent ED visits here and at [facility]. We discussed risks, benefits and alternative treatment options, pt agrees to start mood stabilizer for impulsive, explosive behaviors. We also discussed switching seroquel to risperidone. Pt is orientation has been intact all along. PLAN 01/20 schedule trazodone 50mg po qhs for sleep. 01/21 continue tx. depakote levels scheduled for tomorrow AM with ammonia levels. 01/22 trough depakote level 75, ammonia 41. continue tx. continue tx 01/24 continue tx. 01/25 continue tx. 01/26 continue tx. 01/27: continue current mgmt. 01/28: continue current mgmt. 01/29 continue tx. 01/30 continue tx. 01/31 continues tx-continue monitor bilat LE- doppler did not show DVT. 02/01: No change in medications, continue current plan of care. 02/02: Continue current plan. 02/03: Continue current plans and regimen 02/04 continue tx. 02/05 continue tx. 02/06 continue tx. 02/07 continue tx. 02/09: no changes 02/10 continue tx. 02/11 continue tx. 02/12 continue tx. 02/13 continue tx. 02/14 continue tx. awaiting placement. 02/15: Continue current treatment plan. 02/16: Continue current plan. 02/17 continue tx. 02/18 continue tx. 02/19 continue tx. 02/20 continue tx. 02/21 continue tx. 02/22: Continue current plans and regimen 02/23: Continue current plans and regimen 02/24 continue tx 02/25 continue tx. 02/26 continue tx. 02/27 continue tx. 02/28 continue tx. 03/01 continue same treatment 03/02 continue same treatment 03/03 continue tx. 03/04 continue tx. awaiting placement 03/05 continue tx. 03/06 continue tx. awaiting placement. 03/07 continue tx. 03/08: received oxycodone 5, ativan 1 mg this morning for what appears to be lower back spasm. try flexeril 5 mg one time. otherwise continue current mgmt. 03/09: no c/o back pain today. calm, cooperative. no behavioral issues. asking when she will be discharging. continue current mgmt. 03/10 continue tx. 03/11 continue tx. 03/12 continue tx. 03/13 continue tx. 03/14 continue tx. 03/15: Continue current management and treatment plan. Reason for continued inpatient stay Substantial Risk for: inability to function and rapid decompensation Time Spent With Patient Time: Total time managing care of this patient today ____ minutes.
[2023-03-15 18:00] VITALS: BP 135/60; PULSE 69; RESP 16; TEMP 36.3; O2SAT 96
[2023-03-15 20:26] LABS: Glucose, Whole Blood 196 mg/dL (60-115)
[2023-03-15] MEDS: Divalproex Sodium 500 MG TABLET.DR PO (21:00)
[2023-03-15] MEDS: Donepezil HCl 10 MG TABLET PO (21:01)
[2023-03-15] MEDS: Atorvastatin Calcium 20 MG TABLET PO (21:01)
[2023-03-15] MEDS: Insulin Glargine,Hum.rec.anlog 100 UNIT/ML 10 ML VIAL 47 UNIT SUBCUT (21:02)
[2023-03-15] MEDS: Valsartan 80 MG TABLET PO (21:10)
[2023-03-15] MEDS: traZODone HCL 50 MG TABLET PO (23:15)
[2023-03-16] MEDS: traZODone HCL 50 MG TABLET PO ×2 (01:04→20:09)
[2023-03-16 06:00] VITALS: BP 144/62; PULSE 74; RESP 18; TEMP 36.3; O2SAT 95
[2023-03-16] MEDS: Levothyroxine Sodium 75 MCG TABLET PO (06:15)
[2023-03-16 06:31] LABS: Glucose, Whole Blood 107 mg/dL (60-115)
[2023-03-16] MEDS: Memantine HCl 10 MG TABLET PO ×2 (08:10→20:08)
[2023-03-16] MEDS: Lidocaine 4 % Patch ADH..PATCH 1 PATCH TRANSDERMA (08:10)
[2023-03-16] MEDS: Divalproex Sodium 250 MG TABLET.DR PO (08:10)
[2023-03-16] MEDS: Escitalopram Oxalate 10 MG TABLET PO (08:10)
[2023-03-16] MEDS: Clopidogrel Bisulfate 75 MG TABLET PO (08:10)
[2023-03-16] MEDS: Metoprolol Tartrate 25 MG TABLET PO (08:10)
[2023-03-16 11:15] LABS: Glucose, Whole Blood 232 mg/dL (60-115)
[2023-03-16] MEDS: Insulin Lispro 100 UNIT/ML 3 ML VIAL SUBCUT ×2 (11:32→16:25)
[2023-03-16] MEDS: Gabapentin 600 MG TABLET PO ×2 (13:31→21:41)
[2023-03-16 16:20] LABS: Glucose, Whole Blood 300 mg/dL (60-115)
--- NOTE | 2023-03-16 17:40 | P.PNPSI_ITS ---
Subjective Subjective Date of Service: 03/16/23 Reason For Visit: Depression Interim History: Met with patient; discussed with team Patient not her head yes when asked how she is doing; nausea head yes that she likes her new slippers; staff reports patient eating, sleeping and going to groups and remains in good behavioral control. Mental Status Exam Mental Status Exam Narrative: Appearance: Casual attire, fair hygiene, in NAD Behavior: cooperative, calm Psychomotor: no agitation noted Speech: Per staff, clear, normal rate/rhythm/volume, spontaneous TP: linear Mood: Nods yes to good Affect: Calm VH/AH: none expressed Delusions: none expressed Patient Appearance: Appropriate Patient Orientation: Person, Place, Time and Situation Level of Consciousness: Awake Patient Behavior: Guarded and Passive Mood Description: Withdrawn Affect Description: Constricted Patient Cognition Impaired: Yes Ability to Follow Directions: Fair Speech Pattern: Clear Diagnostics Vital Signs (24Hr): Vital Signs - 24 hr 03/15/23 18:00 03/16/23 06:00 Temperature 97.3 F 97.3 F Pulse Rate 69 74 Respiratory Rate 16 18 Blood Pressure 135/60 144/62 H Pulse Oximetry 96 95 Oxygen Delivery Method Room Air Room Air BMI result Body Mass Index 28.5 Labs 01/07/23 17:49 01/07/23 17:49 Labs: Laboratory Results - last 48 hr 03/14/23 03/15/23 03/15/23 20:00 06:15 11:08 POC Glucose 257 H 126 H 237 H 03/15/23 03/15/23 03/16/23 16:14 20:00 06:15 POC Glucose 317 H 196 H 107 03/16/23 03/16/23 11:09 16:12 POC Glucose 232 H 300 H Imaging Radiology Impressions: ITS Impressions Venous Duplex 01/30/23 16:02 IMPRESSION: No DVT demonstrated in the bilateral lower extremity. Medications Medications Current Medications Acetaminophen (Acetaminophen 325 Mg Tablet) 650 mg PO Q6H PRN PRN Reason: Headache/Pain Mild Scale (1-3) Last Admin: 03/15/23 16:20 Dose: 650 mg Al Hydroxide/Mg Hydroxide (Magnesium Hydrox/Alum Hydrox 30 Ml Oral.Susp) 30 ml PO Q6H PRN PRN Reason: Heartburn/Nausea Last Admin: 02/10/23 22:17 Dose: 30 ml Artificial Tears (Artificial Tears 15 Ml Drops) 1 drop EYE-BOTH Q4H PRN PRN Reason: Dry Eyes Atorvastatin Calcium (Atorvastatin Calcium 20 Mg Tablet) 20 mg PO BEDTIME [facility] Last Admin: 03/15/23 21:01 Dose: 20 mg Bisacodyl (Bisacodyl 10 Mg Supp.Rect) 10 mg HI DAILY PRN PRN Reason: Constipation Clopidogrel Bisulfate (Clopidogrel Bisulfate 75 Mg Tablet) 75 mg PO DAILY [facility] Last Admin: 03/16/23 08:10 Dose: 75 mg Divalproex Sodium (Divalproex Sodium 500 Mg Tablet.Dr) 500 mg PO BEDTIME [facility] Last Admin: 03/15/23 21:00 Dose: 500 mg Divalproex Sodium (Divalproex Sodium 250 Mg Tablet.) 250 mg PO DAILY [facility] Last Admin: 03/16/23 08:10 Dose: 250 mg Donepezil HCl (Donepezil Hcl 10 Mg Tablet) 10 mg PO BEDTIME [facility] Last Admin: 03/15/23 21:01 Dose: 10 mg Escitalopram Oxalate (Escitalopram Oxalate 10 Mg Tablet) 10 mg PO DAILY [facility] Last Admin: 03/16/23 08:10 Dose: 10 mg Gabapentin (Gabapentin 600 Mg Tablet) 600 mg PO BEDTIME [facility] Last Admin: 03/15/23 21:01 Dose: 600 mg Gabapentin (Gabapentin 600 Mg Tablet) 600 mg PO DAILY@1300 [facility] Last Admin: 03/16/23 13:31 Dose: 600 mg Glucagon (Glucagon Hcl 1 Mg Vial) 1 mg SUBCUT Q20M PRN PRN Reason: BG <70 AND UNRESPONSIVE Glucose (Glucose Gel 15 Gm Gel..Gram.) 15 gm PO Q15M PRN PRN Reason: BG <70 AND RESPONSIVE Last Admin: 01/30/23 03:12 Dose: 15 gm Insulin Glargine (Insulin Glargine,Hum.Rec.Anlog 100 Unit/Ml 10 Ml Vial) 47 unit SUBCUT BEDTIME [facility] Last Admin: 03/15/23 21:02 Dose: 47 unit Insulin Human Lispro (Insulin Lispro 100 Unit/Ml 3 Ml Vial) 0 unit SUBCUT TIDAC [facility]; Protocol Last Admin: 03/16/23 16:25 Dose: 6 unit Levothyroxine Sodium (Levothyroxine Sodium 75 Mcg Tablet) 75 mcg PO DAILY@0630 [facility] Last Admin: 03/16/23 06:15 Dose: 75 mcg Lidocaine (Lidocaine 4 % Patch Adh..Patch) 1 patch TRANSDERMA DAILY [facility]; Protocol Last Admin: 03/16/23 08:10 Dose: 1 patch Loperamide HCl (Loperamide Hcl 2 Mg Capsule) 2 mg PO Q6H PRN PRN Reason: diarrhea Last Admin: 03/11/23 06:56 Dose: 2 mg Magnesium Hydroxide (Milk Of Magnesia 30 Ml Oral.Susp) 30 ml PO DAILY PRN PRN Reason: Constipation Magnesium Hydroxide (Milk Of Magnesia 30 Ml Oral.Susp) 30 ml PO DAILY PRN PRN Reason: Constipation Memantine (Memantine Hcl 10 Mg Tablet) 10 mg PO BID [facility] Last Admin: 03/16/23 08:10 Dose: 10 mg Metoprolol Tartrate (Metoprolol Tartrate 25 Mg Tablet) 25 mg PO DAILY [facility]; Protocol Last Admin: 03/16/23 08:10 Dose: 25 mg Quetiapine Fumarate (Quetiapine Fumarate 50 Mg Tablet) 50 mg PO Q6H PRN PRN Reason: agitation Last Admin: 02/26/23 00:10 Dose: 50 mg Sodium Biphosphate/Sodium Phosphate (Sodium Phosphate,[place]-Dibasic 133 Ml Enema) 133 ml HI DAILY PRN PRN Reason: Constipation Trazodone HCl (Trazodone Hcl 50 Mg Tablet) 50 mg PO BEDTIME PRN PRN Reason: Insomnia Last Admin: 03/16/23 01:04 Dose: 50 mg Valsartan (Valsartan 80 Mg Tablet) 80 mg PO BEDTIME [facility]; Protocol Last Admin: 03/15/23 21:10 Dose: 80 mg Allergies Allergies Allergy/AdvReac Type Severity Reaction Status Date / Time aspirin [ASPIRIN] Allergy Unknown UNKNOWN Verified 01/01/23 09:43 Assessment & Plan Assessment & Plan (1) Major neurocognitive disorder: Status: Acute Code(s): F03.90 - Unspecified dementia, unspecified severity, without behavioral disturbance, psychotic disturbance, mood disturbance, and anxiety (2) Mood disorder: Status: Acute Code(s): F39 - Unspecified mood [affective] disorder Plan Ms. Landis is a 67 year-old woman with hx of Mood Disorder (untreated for most of her life) and neurocognitive disorder who was brought via EMS from [facility] due to increase verbal aggression towards roommate and one of their staff. Pt is known to this writer technical publications through previous assessment for similar presentation. Pt presents as calmer, she does admit to being verbally abusive, although denies any intent to harm self or others. She does lack the insight into how her behaviors affect others and her relationships with others. This tendency to have difficulty seeing other people's need per daughter has been life long. Pt presents with tendency to be irritable, at times explosive but not physically aggressive. She was started back in September on low dose of seroquel but no further medication adjustments have been made to manage these symptoms, which are disruptive but not life threatening nor at imminent risk of harm to self or others. As consequence of minimal intervention in the community, pt has had more frequent ED visits here and at [facility]. We discussed risks, benefits and alternative treatment options, pt agrees to start mood stabilizer for impulsive, explosive behaviors. We also discussed switching seroquel to risperidone. Pt is orientation has been intact all along. PLAN 01/20 schedule trazodone 50mg po qhs for sleep. 01/21 continue tx. depakote levels scheduled for tomorrow AM with ammonia levels. 01/22 trough depakote level 75, ammonia 41. continue tx. continue tx 01/24 continue tx. 01/25 continue tx. 01/26 continue tx. 01/27: continue current mgmt. 01/28: continue current mgmt. 01/29 continue tx. 01/30 continue tx. 01/31 continues tx-continue monitor bilat LE- doppler did not show DVT. 02/01: No change in medications, continue current plan of care. 02/02: Continue current plan. 02/03: Continue current plans and regimen 02/04 continue tx. 02/05 continue tx. 02/06 continue tx. 02/07 continue tx. 02/09: no changes 02/10 continue tx. 02/11 continue tx. 02/12 continue tx. 02/13 continue tx. 02/14 continue tx. awaiting placement. 02/15: Continue current treatment plan. 02/16: Continue current plan. 02/17 continue tx. 02/18 continue tx. 02/19 continue tx. 02/20 continue tx. 02/21 continue tx. 02/22: Continue current plans and regimen 02/23: Continue current plans and regimen 02/24 continue tx 02/25 continue tx. 11/1 continue tx. 02/27 continue tx. 02/28 continue tx. 03/01 continue same treatment 03/02 continue same treatment 03/03 continue tx. 03/04 continue tx. awaiting placement 03/05 continue tx. 03/06 continue tx. awaiting placement. 03/07 continue tx. 03/08: received oxycodone 5, ativan 1 mg this morning for what appears to be lower back spasm. try flexeril 5 mg one time. otherwise continue current mgmt. 03/09: no c/o back pain today. calm, cooperative. no behavioral issues. asking when she will be discharging. continue current mgmt. 03/10 continue tx. 03/11 continue tx. 03/12 continue tx. 03/13 continue tx. 03/14 continue tx. 03/15: Continue current management and treatment plan. 03/16: Continue current treatment plan Patient educated on: diagnosis Informed Consent: further education needed Reason for continued inpatient stay Substantial Risk for: inability to function Time Spent With Patient Time: Total time managing care of this patient today ____ minutes.
[2023-03-16 18:00] VITALS: BP 153/85; PULSE 102; RESP 16; TEMP 37.2; O2SAT 96
[2023-03-16] MEDS: Insulin Glargine,Hum.rec.anlog 100 UNIT/ML 10 ML VIAL 47 UNIT SUBCUT (20:06)
[2023-03-16] MEDS: Atorvastatin Calcium 20 MG TABLET PO (20:08)
[2023-03-16] MEDS: Divalproex Sodium 500 MG TABLET.DR PO (20:08)
[2023-03-16] MEDS: Valsartan 80 MG TABLET PO (20:10)
[2023-03-16 21:36] LABS: Glucose, Whole Blood 266 mg/dL (60-115)
[2023-03-16] MEDS: Donepezil HCl 10 MG TABLET PO (21:41)
[2023-03-17] MEDS: Levothyroxine Sodium 75 MCG TABLET PO (06:17)
[2023-03-17 06:45] LABS: Glucose, Whole Blood 126 mg/dL (60-115)
[2023-03-17 08:00] VITALS: BP 127/68; PULSE 64; RESP 18; TEMP 36.4; O2SAT 94
[2023-03-17] MEDS: Clopidogrel Bisulfate 75 MG TABLET PO (08:39)
[2023-03-17] MEDS: Escitalopram Oxalate 10 MG TABLET PO (08:39)
[2023-03-17] MEDS: Metoprolol Tartrate 25 MG TABLET PO (08:39)
[2023-03-17] MEDS: Divalproex Sodium 250 MG TABLET.DR PO (08:39)
[2023-03-17] MEDS: Memantine HCl 10 MG TABLET PO ×2 (08:40→20:21)
[2023-03-17] MEDS: Lidocaine 4 % Patch ADH..PATCH 1 PATCH TRANSDERMA (08:40)
--- NOTE | 2023-03-17 09:04 | HO.PSYCHPN ---
Subjective Subjective Date of Service: 03/17/23 Reason For Visit: Depression Subjective Notes: Conditional Voluntary Healthcare Proxy: Yes Interim History: Pt slept through the night. Pt has been visible on the unit and has attended assigned groups. Pt reports chronic neck pain/back pain, not severe. Ambulating with walker. She denies dental pain. No VH/AH/delusions. No behavioral concerns. Medication Compliance: Yes Review of Systems Review of Systems nothing acute Yes all other systems are reviewed and are negative Mental Status Exam Mental Status Exam Narrative: Appearance: Casual attire, good hygiene, in NAD, ambulating with walker Behavior: cooperative, calm Psychomotor: no agitation noted Speech: clear, normal rate/rhythm/volume, spontaneous TP: linear Mood: good Affect: Calm VH/AH: none expressed Delusions: none expressed Insight/judgment: fair x 2. Memory/cog: alert, oriented x 3. Diagnostics Vital Signs (24Hr): Vital Signs - 24 hr 03/16/23 18:00 03/17/23 08:00 Temperature 98.9 F 97.5 F Pulse Rate 102 H 64 Respiratory Rate 16 18 Blood Pressure 153/85 H 127/68 Pulse Oximetry 96 94 Oxygen Delivery Method Room Air Room Air BMI result Body Mass Index 28.5 Labs 01/07/23 17:49 01/07/23 17:49 Labs: Laboratory Results - last 48 hr 03/15/23 03/15/23 03/15/23 11:08 16:14 20:00 POC Glucose 237 H 317 H 196 H 03/16/23 03/16/23 03/16/23 06:15 11:09 16:12 POC Glucose 107 232 H 300 H 03/16/23 03/17/23 20:04 06:19 POC Glucose 266 H 126 H Imaging Radiology Impressions: ITS Impressions Venous Duplex 01/30/23 16:02 IMPRESSION: No DVT demonstrated in the bilateral lower extremity. Medications Medications Current Medications Acetaminophen (Acetaminophen 325 Mg Tablet) 650 mg PO Q6H PRN PRN Reason: Headache/Pain Mild Scale (1-3) Last Admin: 03/15/23 16:20 Dose: 650 mg Al Hydroxide/Mg Hydroxide (Magnesium Hydrox/Alum Hydrox 30 Ml Oral.Susp) 30 ml PO Q6H PRN PRN Reason: Heartburn/Nausea Last Admin: 02/10/23 22:17 Dose: 30 ml Artificial Tears (Artificial Tears 15 Ml Drops) 1 drop EYE-BOTH Q4H PRN PRN Reason: Dry Eyes Atorvastatin Calcium (Atorvastatin Calcium 20 Mg Tablet) 20 mg PO BEDTIME [facility] Last Admin: 03/16/23 20:08 Dose: 20 mg Bisacodyl (Bisacodyl 10 Mg Supp.Rect) 10 mg [place] DAILY PRN PRN Reason: Constipation Clopidogrel Bisulfate (Clopidogrel Bisulfate 75 Mg Tablet) 75 mg PO DAILY [facility] Last Admin: 03/17/23 08:39 Dose: 75 mg Divalproex Sodium (Divalproex Sodium 500 Mg Tablet.Dr) 500 mg PO BEDTIME [facility] Last Admin: 03/16/23 20:08 Dose: 500 mg Divalproex Sodium (Divalproex Sodium 250 Mg Tablet.Dr) 250 mg PO DAILY [facility] Last Admin: 03/17/23 08:39 Dose: 250 mg Donepezil HCl (Donepezil Hcl 10 Mg Tablet) 10 mg PO BEDTIME [facility] Last Admin: 03/16/23 21:41 Dose: 10 mg Escitalopram Oxalate (Escitalopram Oxalate 10 Mg Tablet) 10 mg PO DAILY [facility] Last Admin: 03/17/23 08:39 Dose: 10 mg Gabapentin (Gabapentin 600 Mg Tablet) 600 mg PO BEDTIME [facility] Last Admin: 03/16/23 21:41 Dose: 600 mg Gabapentin (Gabapentin 600 Mg Tablet) 600 mg PO DAILY@1300 [facility] Last Admin: 03/16/23 13:31 Dose: 600 mg Glucagon (Glucagon Hcl 1 Mg Vial) 1 mg SUBCUT Q20M PRN PRN Reason: BG <70 AND UNRESPONSIVE Glucose (Glucose Gel 15 Gm Gel..Gram.) 15 gm PO Q15M PRN PRN Reason: BG <70 AND RESPONSIVE Last Admin: 01/30/23 03:12 Dose: 15 gm Insulin Glargine (Insulin Glargine,Hum.Rec.Anlog 100 Unit/Ml 10 Ml Vial) 47 unit SUBCUT BEDTIME [facility] Last Admin: 03/16/23 20:06 Dose: 47 unit Insulin Human Lispro (Insulin Lispro 100 Unit/Ml 3 Ml Vial) 0 unit SUBCUT TIDAC [facility]; Protocol Last Admin: 03/17/23 08:08 Dose: Not Given Levothyroxine Sodium (Levothyroxine Sodium 75 Mcg Tablet) 75 mcg PO DAILY@0630 [facility] Last Admin: 03/17/23 06:17 Dose: 75 mcg Lidocaine (Lidocaine 4 % Patch Adh..Patch) 1 patch TRANSDERMA DAILY [facility]; Protocol Last Admin: 03/17/23 08:40 Dose: 1 patch Loperamide HCl (Loperamide Hcl 2 Mg Capsule) 2 mg PO Q6H PRN PRN Reason: diarrhea Last Admin: 03/11/23 06:56 Dose: 2 mg Magnesium Hydroxide (Milk Of Magnesia 30 Ml Oral.Susp) 30 ml PO DAILY PRN PRN Reason: Constipation Magnesium Hydroxide (Milk Of Magnesia 30 Ml Oral.Susp) 30 ml PO DAILY PRN PRN Reason: Constipation Memantine (Memantine Hcl 10 Mg Tablet) 10 mg PO BID [facility] Last Admin: 03/17/23 08:40 Dose: 10 mg Metoprolol Tartrate (Metoprolol Tartrate 25 Mg Tablet) 25 mg PO DAILY [facility]; Protocol Last Admin: 03/17/23 08:39 Dose: 25 mg Quetiapine Fumarate (Quetiapine Fumarate 50 Mg Tablet) 50 mg PO Q6H PRN PRN Reason: agitation Last Admin: 02/26/23 00:10 Dose: 50 mg Sodium Biphosphate/Sodium Phosphate (Sodium Phosphate,[place]-Dibasic 133 Ml Enema) 133 ml [place] DAILY PRN PRN Reason: Constipation Trazodone HCl (Trazodone Hcl 50 Mg Tablet) 50 mg PO BEDTIME PRN PRN Reason: Insomnia Last Admin: 03/16/23 20:09 Dose: 50 mg Valsartan (Valsartan 80 Mg Tablet) 80 mg PO BEDTIME [facility]; Protocol Last Admin: 03/16/23 20:10 Dose: 80 mg Allergies Allergies Allergy/AdvReac Type Severity Reaction Status Date / Time aspirin [ASPIRIN] Allergy Unknown UNKNOWN Verified 01/01/23 09:43 Assessment & Plan Assessment & Plan (1) Major neurocognitive disorder: Status: Acute Code(s): F03.90 - Unspecified dementia, unspecified severity, without behavioral disturbance, psychotic disturbance, mood disturbance, and anxiety (2) Mood disorder: Status: Acute Code(s): F39 - Unspecified mood [affective] disorder Plan Ms. Landis is a 67 year-old woman with hx of Mood Disorder (untreated for most of her life) and neurocognitive disorder who was brought via EMS from [facility] due to increase verbal aggression towards roommate and one of their staff. Pt is known to this proposal manager writer through previous assessment for similar presentation. Pt presents as calmer, she does admit to being verbally abusive, although denies any intent to harm self or others. She does lack the insight into how her behaviors affect others and her relationships with others. This tendency to have difficulty seeing other people's need per daughter has been life long. Pt presents with tendency to be irritable, at times explosive but not physically aggressive. She was started back in September on low dose of seroquel but no further medication adjustments have been made to manage these symptoms, which are disruptive but not life threatening nor at imminent risk of harm to self or others. As consequence of minimal intervention in the community, pt has had more frequent ED visits here and at [facility]. We discussed risks, benefits and alternative treatment options, pt agrees to start mood stabilizer for impulsive, explosive behaviors. We also discussed switching seroquel to risperidone. Pt is orientation has been intact all along. PLAN 01/20 schedule trazodone 50mg po qhs for sleep. 01/21 continue tx. depakote levels scheduled for tomorrow AM with ammonia levels. 01/22 trough depakote level 75, ammonia 41. continue tx. continue tx 01/24 continue tx. 01/25 continue tx. 01/26 continue tx. 01/27: continue current mgmt. 01/28: continue current mgmt. 01/29 continue tx. 01/30 continue tx. 01/31 continues tx-continue monitor bilat LE- doppler did not show DVT. 02/01: No change in medications, continue current plan of care. 02/02: Continue current plan. 02/03: Continue current plans and regimen 02/04 continue tx. 02/05 continue tx. 02/06 continue tx. 02/07 continue tx. 02/09: no changes 02/10 continue tx. 02/11 continue tx. 02/12 continue tx. 02/13 continue tx. 02/14 continue tx. awaiting placement. 02/15: Continue current treatment plan. 02/16: Continue current plan. 02/17 continue tx. 02/18 continue tx. 02/19 continue tx. 02/20 continue tx. 02/21 continue tx. 02/22: Continue current plans and regimen 02/23: Continue current plans and regimen 02/24 continue tx 02/25 continue tx. 02/26 continue tx. 02/27 continue tx. 02/28 continue tx. 03/01 continue same treatment 03/02 continue same treatment 03/03 continue tx. 03/04 continue tx. awaiting placement 03/05 continue tx. 03/06 continue tx. awaiting placement. 03/07 continue tx. 03/08: received oxycodone 5, ativan 1 mg this morning for what appears to be lower back spasm. try flexeril 5 mg one time. otherwise continue current mgmt. 03/09: no c/o back pain today. calm, cooperative. no behavioral issues. asking when she will be discharging. continue current mgmt. 03/10 continue tx. 03/11 continue tx. 03/12 continue tx. 03/13 continue tx. 03/14 continue tx. 03/15: Continue current management and treatment plan. 03/16 continue tx. 03/17- continues tx. will add lidocaine back pain. Guardian/Caregiver educated on: diagnosis Informed Consent: understands Reason for continued inpatient stay Substantial Risk for: inability to function Time Spent With Patient Time: Total time managing care of this patient today ____ minutes.
[2023-03-17] MEDS: Loperamide HCl 2 MG CAPSULE PO ×2 (10:59→17:32)
[2023-03-17 11:27] LABS: Glucose, Whole Blood 211 mg/dL (60-115)
[2023-03-17] MEDS: Insulin Lispro 100 UNIT/ML 3 ML VIAL SUBCUT ×2 (11:37→16:41)
[2023-03-17] MEDS: Gabapentin 600 MG TABLET PO ×2 (11:38→20:22)
[2023-03-17 16:28] LABS: Glucose, Whole Blood 262 mg/dL (60-115)
[2023-03-17] MEDS: Acetaminophen 325 MG TABLET 650 MG PO (17:31)
[2023-03-17 20:15] LABS: Glucose, Whole Blood 186 mg/dL (60-115)
[2023-03-17] MEDS: Valsartan 80 MG TABLET PO (20:21)
[2023-03-17] MEDS: Donepezil HCl 10 MG TABLET PO (20:21)
[2023-03-17] MEDS: Atorvastatin Calcium 20 MG TABLET PO (20:22)
[2023-03-17] MEDS: traZODone HCL 50 MG TABLET PO (20:22)
[2023-03-17] MEDS: Divalproex Sodium 500 MG TABLET.DR PO (20:23)
[2023-03-17] MEDS: Insulin Glargine,Hum.rec.anlog 100 UNIT/ML 10 ML VIAL 47 UNIT SUBCUT (20:23)
[2023-03-17 20:44] VITALS: BP 128/59; PULSE 61; RESP 18; TEMP 36.1; O2SAT 98
[2023-03-18] MEDS: traZODone HCL 50 MG TABLET PO (00:05)
[2023-03-18] MEDS: Acetaminophen 325 MG TABLET 650 MG PO (03:39)
[2023-03-18] MEDS: Levothyroxine Sodium 75 MCG TABLET PO (06:00)
[2023-03-18 06:21] LABS: Glucose, Whole Blood 162 mg/dL (60-115)
[2023-03-18 08:37] VITALS: BP 142/70; PULSE 70; RESP 15; TEMP 36.6; O2SAT 98
[2023-03-18] MEDS: Insulin Lispro 100 UNIT/ML 3 ML VIAL SUBCUT ×3 (08:38→17:58)
[2023-03-18] MEDS: Metoprolol Tartrate 25 MG TABLET PO (08:38)
[2023-03-18] MEDS: Clopidogrel Bisulfate 75 MG TABLET PO (08:39)
[2023-03-18] MEDS: Escitalopram Oxalate 10 MG TABLET PO (08:39)
[2023-03-18] MEDS: Memantine HCl 10 MG TABLET PO ×2 (08:39→20:37)
[2023-03-18] MEDS: Divalproex Sodium 250 MG TABLET.DR PO (08:39)
[2023-03-18 11:32] LABS: Glucose, Whole Blood 278 mg/dL (60-115)
--- NOTE | 2023-03-18 14:22 | P.PNPSI_ITS ---
Subjective Subjective Date of Service: 03/18/23 Reason For Visit: Depression Subjective Notes: Conditional Voluntary Healthcare Proxy: Yes Interim History: Pt slept through the night. Pt has been visible on the unit and has attended assigned groups. Pt denies any acute pain. Ambulating with walker. She is taking medications as prescribed. No VH/AH/delusions. No behavioral concerns. Review of Systems Review of Systems nothing acute Yes all other systems are reviewed and are negative Mental Status Exam Mental Status Exam Narrative: Appearance: Casual attire, good hygiene, in NAD, ambulating with walker Behavior: cooperative, calm Psychomotor: no agitation noted Speech: clear, normal rate/rhythm/volume, spontaneous TP: linear Mood: good Affect: Calm VH/AH: none expressed Delusions: none expressed Insight/judgment: fair x 2. Memory/cog: alert, oriented x 3. Diagnostics Vital Signs (24Hr): Vital Signs - 24 hr 03/17/23 20:44 03/18/23 08:37 Temperature 97.0 F 97.9 F Pulse Rate 61 70 Respiratory Rate 18 15 Blood Pressure 128/59 L 142/70 H Pulse Oximetry 98 98 Oxygen Delivery Method Room Air Room Air BMI result Body Mass Index 28.5 Labs 01/07/23 17:49 01/07/23 17:49 Labs: Laboratory Results - last 48 hr 03/16/23 03/16/23 03/17/23 16:12 20:04 06:19 POC Glucose 300 H 266 H 126 H 03/17/23 03/17/23 03/17/23 11:20 16:15 20:11 POC Glucose 211 H 262 H 186 H 03/18/23 03/18/23 06:10 11:25 POC Glucose 162 H 278 H Imaging Radiology Impressions: ITS Impressions Venous Duplex 01/30/23 16:02 IMPRESSION: No DVT demonstrated in the bilateral lower extremity. Medications Medications Current Medications Acetaminophen (Acetaminophen 325 Mg Tablet) 650 mg PO Q6H PRN PRN Reason: Headache/Pain Mild Scale (1-3) Last Admin: 03/18/23 03:39 Dose: 650 mg Al Hydroxide/Mg Hydroxide (Magnesium Hydrox/Alum Hydrox 30 Ml Oral.Susp) 30 ml PO Q6H PRN PRN Reason: Heartburn/Nausea Last Admin: 02/10/23 22:17 Dose: 30 ml Artificial Tears (Artificial Tears 15 Ml Drops) 1 drop EYE-BOTH Q4H PRN PRN Reason: Dry Eyes Atorvastatin Calcium (Atorvastatin Calcium 20 Mg Tablet) 20 mg PO BEDTIME [facility] Last Admin: 03/17/23 20:22 Dose: 20 mg Bisacodyl (Bisacodyl 10 Mg Supp.Rect) 10 mg [place] DAILY PRN PRN Reason: Constipation Clopidogrel Bisulfate (Clopidogrel Bisulfate 75 Mg Tablet) 75 mg PO DAILY [facility] Last Admin: 03/18/23 08:39 Dose: 75 mg Divalproex Sodium (Divalproex Sodium 500 Mg Tablet.Dr) 500 mg PO BEDTIME [facility] Last Admin: 03/17/23 20:23 Dose: 500 mg Divalproex Sodium (Divalproex Sodium 250 Mg Tablet.Dr) 250 mg PO DAILY [facility] Last Admin: 03/18/23 08:39 Dose: 250 mg Donepezil HCl (Donepezil Hcl 10 Mg Tablet) 10 mg PO BEDTIME [facility] Last Admin: 03/17/23 20:21 Dose: 10 mg Escitalopram Oxalate (Escitalopram Oxalate 10 Mg Tablet) 10 mg PO DAILY [facility] Last Admin: 03/18/23 08:39 Dose: 10 mg Gabapentin (Gabapentin 600 Mg Tablet) 600 mg PO BEDTIME [facility] Last Admin: 03/17/23 20:22 Dose: 600 mg Gabapentin (Gabapentin 600 Mg Tablet) 600 mg PO DAILY@1300 [facility] Last Admin: 03/17/23 11:38 Dose: 600 mg Glucagon (Glucagon Hcl 1 Mg Vial) 1 mg SUBCUT Q20M PRN PRN Reason: BG <70 AND UNRESPONSIVE Glucose (Glucose Gel 15 Gm Gel..Gram.) 15 gm PO Q15M PRN PRN Reason: BG <70 AND RESPONSIVE Last Admin: 01/30/23 03:12 Dose: 15 gm Insulin Glargine (Insulin Glargine,Hum.Rec.Anlog 100 Unit/Ml 10 Ml Vial) 47 unit SUBCUT BEDTIME [facility] Last Admin: 03/17/23 20:23 Dose: 47 unit Insulin Human Lispro (Insulin Lispro 100 Unit/Ml 3 Ml Vial) 0 unit SUBCUT TIDAC [facility]; Protocol Last Admin: 03/18/23 12:45 Dose: 8 unit Levothyroxine Sodium (Levothyroxine Sodium 75 Mcg Tablet) 75 mcg PO DAILY@0630 [facility] Last Admin: 03/18/23 06:00 Dose: 75 mcg Lidocaine (Lidocaine 4 % Patch Adh..Patch) 1 patch TRANSDERMA DAILY [facility]; Protocol Last Admin: 03/18/23 12:46 Dose: Not Given Lidocaine (Lidocaine 4 % Patch Adh..Patch) 1 patch TRANSDERMA DAILY [facility]; Protocol Last Admin: 03/18/23 12:46 Dose: Not Given Loperamide HCl (Loperamide Hcl 2 Mg Capsule) 2 mg PO Q6H PRN PRN Reason: diarrhea Last Admin: 03/17/23 17:32 Dose: 2 mg Magnesium Hydroxide (Milk Of Magnesia 30 Ml Oral.Susp) 30 ml PO DAILY PRN PRN Reason: Constipation Magnesium Hydroxide (Milk Of Magnesia 30 Ml Oral.Susp) 30 ml PO DAILY PRN PRN Reason: Constipation Memantine (Memantine Hcl 10 Mg Tablet) 10 mg PO BID [facility] Last Admin: 03/18/23 08:39 Dose: 10 mg Metoprolol Tartrate (Metoprolol Tartrate 25 Mg Tablet) 25 mg PO DAILY [facility]; Protocol Last Admin: 03/18/23 08:38 Dose: 25 mg Quetiapine Fumarate (Quetiapine Fumarate 50 Mg Tablet) 50 mg PO Q6H PRN PRN Reason: agitation Last Admin: 02/26/23 00:10 Dose: 50 mg Sodium Biphosphate/Sodium Phosphate (Sodium Phosphate,[place]-Dibasic 133 Ml Enema) 133 ml [place] DAILY PRN PRN Reason: Constipation Trazodone HCl (Trazodone Hcl 50 Mg Tablet) 50 mg PO BEDTIME PRN PRN Reason: Insomnia Last Admin: 03/18/23 00:05 Dose: 50 mg Valsartan (Valsartan 80 Mg Tablet) 80 mg PO BEDTIME [facility]; Protocol Last Admin: 03/17/23 20:21 Dose: 80 mg Allergies Allergies Allergy/AdvReac Type Severity Reaction Status Date / Time aspirin [ASPIRIN] Allergy Unknown UNKNOWN Verified 01/01/23 09:43 Assessment & Plan Assessment & Plan (1) Major neurocognitive disorder: Status: Acute Code(s): F03.90 - Unspecified dementia, unspecified severity, without behavioral disturbance, psychotic disturbance, mood disturbance, and anxiety (2) Mood disorder: Status: Acute Code(s): F39 - Unspecified mood [affective] disorder Plan Ms. Landis is a 67 year-old woman with hx of Mood Disorder (untreated for most of her life) and neurocognitive disorder who was brought via EMS from [facility] due to increase verbal aggression towards roommate and one of their staff. Pt is known to this gag writer through previous assessment for similar presentation. Pt presents as calmer, she does admit to being verbally abusive, although denies any intent to harm self or others. She does lack the insight into how her behaviors affect others and her relationships with others. This tendency to have difficulty seeing other people's need per daughter has been life long. Pt presents with tendency to be irritable, at times explosive but not physically aggressive. She was started back in September on low dose of seroquel but no further medication adjustments have been made to manage these symptoms, which are disruptive but not life threatening nor at imminent risk of harm to self or others. As consequence of minimal intervention in the community, pt has had more frequent ED visits here and at [facility]. We discussed risks, benefits and alternative treatment options, pt agrees to start mood stabilizer for impulsive, explosive behaviors. We also discussed switching seroquel to risperidone. Pt is orientation has been intact all along. PLAN 01/20 schedule trazodone 50mg po qhs for sleep. 01/21 continue tx. depakote levels scheduled for tomorrow AM with ammonia levels. 01/22 trough depakote level 75, ammonia 41. continue tx. continue tx 01/24 continue tx. 01/25 continue tx. 01/26 continue tx. 01/27: continue current mgmt. 01/28: continue current mgmt. 01/29 continue tx. 01/30 continue tx. 01/31 continues tx-continue monitor bilat LE- doppler did not show DVT. 02/01: No change in medications, continue current plan of care. 02/02: Continue current plan. 02/03: Continue current plans and regimen 02/04 continue tx. 02/05 continue tx. 02/06 continue tx. 02/07 continue tx. 02/09: no changes 02/10 continue tx. 02/11 continue tx. 02/12 continue tx. 02/13 continue tx. 02/14 continue tx. awaiting placement. 02/15: Continue current treatment plan. 02/16: Continue current plan. 02/17 continue tx. 02/18 continue tx. 02/19 continue tx. 02/20 continue tx. 02/21 continue tx. 02/22: Continue current plans and regimen 02/23: Continue current plans and regimen 02/24 continue tx 02/25 continue tx. 02/26 continue tx. 02/27 continue tx. 02/28 continue tx. 03/01 continue same treatment 03/02 continue same treatment 03/03 continue tx. 03/04 continue tx. awaiting placement 03/05 continue tx. 03/06 continue tx. awaiting placement. 03/07 continue tx. 03/08: received oxycodone 5, ativan 1 mg this morning for what appears to be lower back spasm. try flexeril 5 mg one time. otherwise continue current mgmt. 03/09: no c/o back pain today. calm, cooperative. no behavioral issues. asking when she will be discharging. continue current mgmt. 03/10 continue tx. 03/11 continue tx. 03/12 continue tx. 03/13 continue tx. 03/14 continue tx. 03/15: Continue current management and treatment plan. 03/16 continue tx. 03/17- continues tx. will add lidocaine back pain. 03/18 continue tx. Reason for continued inpatient stay Substantial Risk for: inability to function Time Spent With Patient Time: Total time managing care of this patient today ____ minutes.
[2023-03-18] MEDS: Gabapentin 600 MG TABLET PO ×2 (16:14→20:37)
[2023-03-18 16:31] LABS: Glucose, Whole Blood 185 mg/dL (60-115)
[2023-03-18 19:35] VITALS: BP 140/63; PULSE 70; TEMP 36.1; O2SAT 96
[2023-03-18 20:21] LABS: Glucose, Whole Blood 241 mg/dL (60-115)
[2023-03-18] MEDS: Valsartan 80 MG TABLET PO (20:37)
[2023-03-18] MEDS: Atorvastatin Calcium 20 MG TABLET PO (20:37)
[2023-03-18] MEDS: Divalproex Sodium 500 MG TABLET.DR PO (20:37)
[2023-03-18] MEDS: Donepezil HCl 10 MG TABLET PO (20:37)
[2023-03-18] MEDS: Insulin Glargine,Hum.rec.anlog 100 UNIT/ML 10 ML VIAL 47 UNIT SUBCUT (20:37)
[2023-03-19] MEDS: Loperamide HCl 2 MG CAPSULE PO ×2 (02:24→17:40)
[2023-03-19] MEDS: Levothyroxine Sodium 75 MCG TABLET PO (06:18)
[2023-03-19 06:42] LABS: Glucose, Whole Blood 172 mg/dL (60-115)
[2023-03-19 08:55] VITALS: BP 129/60; PULSE 73; RESP 15; TEMP 36.9; O2SAT 94
[2023-03-19] MEDS: Insulin Lispro 100 UNIT/ML 3 ML VIAL SUBCUT ×3 (08:59→17:39)
[2023-03-19] MEDS: Divalproex Sodium 250 MG TABLET.DR PO (08:59)
[2023-03-19] MEDS: Metoprolol Tartrate 25 MG TABLET PO (08:59)
[2023-03-19] MEDS: Clopidogrel Bisulfate 75 MG TABLET PO (09:00)
[2023-03-19] MEDS: Escitalopram Oxalate 10 MG TABLET PO (09:00)
[2023-03-19] MEDS: Lidocaine 4 % Patch ADH..PATCH 1 PATCH TRANSDERMA ×2 (09:00)
[2023-03-19] MEDS: Memantine HCl 10 MG TABLET PO ×2 (09:01→20:46)
[2023-03-19 11:41] LABS: Glucose, Whole Blood 170 mg/dL (60-115)
[2023-03-19] MEDS: Gabapentin 600 MG TABLET PO ×2 (12:46→20:46)
--- NOTE | 2023-03-19 15:10 | HO.PSYCHPN ---
Subjective Subjective Date of Service: 03/19/23 Reason For Visit: Depression Subjective Notes: Conditional Voluntary Interim History: Pt slept through the night. Pt continues to visible on the unit and has attended assigned groups. Pt denies any acute pain. Ambulating with walker. She is taking medications as prescribed. No VH/AH/delusions. No behavioral concerns. Review of Systems Review of Systems nothing acute Yes all other systems are reviewed and are negative Mental Status Exam Mental Status Exam Narrative: Appearance: Casual attire, good hygiene, in NAD, ambulating with walker Behavior: cooperative, calm Psychomotor: no agitation noted Speech: clear, normal rate/rhythm/volume, spontaneous TP: linear Mood: good Affect: Calm VH/AH: none expressed Delusions: none expressed Insight/judgment: fair x 2. Memory/cog: alert, oriented x 3. Diagnostics Vital Signs (24Hr): Vital Signs - 24 hr 03/18/23 19:35 03/19/23 08:55 Temperature 96.9 F 98.5 F Pulse Rate 70 73 Respiratory Rate 15 Blood Pressure 140/63 H 129/60 Pulse Oximetry 96 94 Oxygen Delivery Method Room Air Room Air BMI result Body Mass Index 28.5 Labs 01/07/23 17:49 01/07/23 17:49 Labs: Laboratory Results - last 48 hr 03/17/23 03/17/23 03/18/23 16:15 20:11 06:10 POC Glucose 262 H 186 H 162 H 03/18/23 03/18/23 03/18/23 11:25 16:21 19:49 POC Glucose 278 H 185 H 241 H 03/19/23 03/19/23 06:29 11:29 POC Glucose 172 H 170 H Imaging Radiology Impressions: ITS Impressions Venous Duplex 01/30/23 16:02 IMPRESSION: No DVT demonstrated in the bilateral lower extremity. Medications Medications Current Medications Acetaminophen (Acetaminophen 325 Mg Tablet) 650 mg PO Q6H PRN PRN Reason: Headache/Pain Mild Scale (1-3) Last Admin: 03/18/23 03:39 Dose: 650 mg Al Hydroxide/Mg Hydroxide (Magnesium Hydrox/Alum Hydrox 30 Ml Oral.Susp) 30 ml PO Q6H PRN PRN Reason: Heartburn/Nausea Last Admin: 02/10/23 22:17 Dose: 30 ml Artificial Tears (Artificial Tears 15 Ml Drops) 1 drop EYE-BOTH Q4H PRN PRN Reason: Dry Eyes Atorvastatin Calcium (Atorvastatin Calcium 20 Mg Tablet) 20 mg PO BEDTIME [facility] Last Admin: 03/18/23 20:37 Dose: 20 mg Bisacodyl (Bisacodyl 10 Mg Supp.Rect) 10 mg [place] DAILY PRN PRN Reason: Constipation Clopidogrel Bisulfate (Clopidogrel Bisulfate 75 Mg Tablet) 75 mg PO DAILY [facility] Last Admin: 03/19/23 09:00 Dose: 75 mg Divalproex Sodium (Divalproex Sodium 500 Mg Tablet.) 500 mg PO BEDTIME [facility] Last Admin: 03/18/23 20:37 Dose: 500 mg Divalproex Sodium (Divalproex Sodium 250 Mg Tablet.) 250 mg PO DAILY [facility] Last Admin: 03/19/23 08:59 Dose: 250 mg Donepezil HCl (Donepezil Hcl 10 Mg Tablet) 10 mg PO BEDTIME [facility] Last Admin: 03/18/23 20:37 Dose: 10 mg Escitalopram Oxalate (Escitalopram Oxalate 10 Mg Tablet) 10 mg PO DAILY [facility] Last Admin: 03/19/23 09:00 Dose: 10 mg Gabapentin (Gabapentin 600 Mg Tablet) 600 mg PO BEDTIME [facility] Last Admin: 03/18/23 20:37 Dose: 600 mg Gabapentin (Gabapentin 600 Mg Tablet) 600 mg PO DAILY@1300 [facility] Last Admin: 03/19/23 12:46 Dose: 600 mg Glucagon (Glucagon Hcl 1 Mg Vial) 1 mg SUBCUT Q20M PRN PRN Reason: BG <70 AND UNRESPONSIVE Glucose (Glucose Gel 15 Gm Gel..Gram.) 15 gm PO Q15M PRN PRN Reason: BG <70 AND RESPONSIVE Last Admin: 01/30/23 03:12 Dose: 15 gm Insulin Glargine (Insulin Glargine,Hum.Rec.Anlog 100 Unit/Ml 10 Ml Vial) 47 unit SUBCUT BEDTIME [facility] Last Admin: 03/18/23 20:37 Dose: 47 unit Insulin Human Lispro (Insulin Lispro 100 Unit/Ml 3 Ml Vial) 0 unit SUBCUT TIDAC [facility]; Protocol Last Admin: 03/19/23 12:46 Dose: 4 unit Levothyroxine Sodium (Levothyroxine Sodium 75 Mcg Tablet) 75 mcg PO DAILY@0630 [facility] Last Admin: 03/19/23 06:18 Dose: 75 mcg Lidocaine (Lidocaine 4 % Patch Adh..Patch) 1 patch TRANSDERMA DAILY [facility]; Protocol Last Admin: 03/19/23 09:00 Dose: 1 patch Lidocaine (Lidocaine 4 % Patch Adh..Patch) 1 patch TRANSDERMA DAILY [facility]; Protocol Last Admin: 03/19/23 09:00 Dose: 1 patch Loperamide HCl (Loperamide Hcl 2 Mg Capsule) 2 mg PO Q6H PRN PRN Reason: diarrhea Last Admin: 03/19/23 02:24 Dose: 2 mg Magnesium Hydroxide (Milk Of Magnesia 30 Ml Oral.Susp) 30 ml PO DAILY PRN PRN Reason: Constipation Magnesium Hydroxide (Milk Of Magnesia 30 Ml Oral.Susp) 30 ml PO DAILY PRN PRN Reason: Constipation Memantine (Memantine Hcl 10 Mg Tablet) 10 mg PO BID [facility] Last Admin: 03/19/23 09:01 Dose: 10 mg Metoprolol Tartrate (Metoprolol Tartrate 25 Mg Tablet) 25 mg PO DAILY [facility]; Protocol Last Admin: 03/19/23 08:59 Dose: 25 mg Quetiapine Fumarate (Quetiapine Fumarate 50 Mg Tablet) 50 mg PO Q6H PRN PRN Reason: agitation Last Admin: 02/26/23 00:10 Dose: 50 mg Sodium Biphosphate/Sodium Phosphate (Sodium Phosphate,[place]-Dibasic 133 Ml Enema) 133 ml [place] DAILY PRN PRN Reason: Constipation Trazodone HCl (Trazodone Hcl 50 Mg Tablet) 50 mg PO BEDTIME PRN PRN Reason: Insomnia Last Admin: 03/18/23 00:05 Dose: 50 mg Valsartan (Valsartan 80 Mg Tablet) 80 mg PO BEDTIME [facility]; Protocol Last Admin: 03/18/23 20:37 Dose: 80 mg Allergies Allergies Allergy/AdvReac Type Severity Reaction Status Date / Time aspirin [ASPIRIN] Allergy Unknown UNKNOWN Verified 01/01/23 09:43 Assessment & Plan Assessment & Plan (1) Major neurocognitive disorder: Status: Acute Code(s): F03.90 - Unspecified dementia, unspecified severity, without behavioral disturbance, psychotic disturbance, mood disturbance, and anxiety (2) Mood disorder: Status: Acute Code(s): F39 - Unspecified mood [affective] disorder Plan Ms. Landis is a 67 year-old woman with hx of Mood Disorder (untreated for most of her life) and neurocognitive disorder who was brought via EMS from [facility] due to increase verbal aggression towards roommate and one of their staff. Pt is known to this leader writer through previous assessment for similar presentation. Pt presents as calmer, she does admit to being verbally abusive, although denies any intent to harm self or others. She does lack the insight into how her behaviors affect others and her relationships with others. This tendency to have difficulty seeing other people's need per daughter has been life long. Pt presents with tendency to be irritable, at times explosive but not physically aggressive. She was started back in September on low dose of seroquel but no further medication adjustments have been made to manage these symptoms, which are disruptive but not life threatening nor at imminent risk of harm to self or others. As consequence of minimal intervention in the community, pt has had more frequent ED visits here and at [facility]. We discussed risks, benefits and alternative treatment options, pt agrees to start mood stabilizer for impulsive, explosive behaviors. We also discussed switching seroquel to risperidone. Pt is orientation has been intact all along. PLAN 01/20 schedule trazodone 50mg po qhs for sleep. 01/21 continue tx. depakote levels scheduled for tomorrow AM with ammonia levels. 01/22 trough depakote level 75, ammonia 41. continue tx. continue tx 01/24 continue tx. 01/25 continue tx. 01/26 continue tx. 01/27: continue current mgmt. 01/28: continue current mgmt. 01/29 continue tx. 01/30 continue tx. 01/31 continues tx-continue monitor bilat LE- doppler did not show DVT. 02/01: No change in medications, continue current plan of care. 02/02: Continue current plan. 02/03: Continue current plans and regimen 02/04 continue tx. 02/05 continue tx. 02/06 continue tx. 02/07 continue tx. 02/09: no changes 02/10 continue tx. 02/11 continue tx. 02/12 continue tx. 02/13 continue tx. 02/14 continue tx. awaiting placement. 02/15: Continue current treatment plan. 02/16: Continue current plan. 02/17 continue tx. 02/18 continue tx. 02/19 continue tx. 02/20 continue tx. 02/21 continue tx. 02/22: Continue current plans and regimen 02/23: Continue current plans and regimen 02/24 continue tx 02/25 continue tx. 02/26 continue tx. 02/27 continue tx. 02/28 continue tx. 03/01 continue same treatment 03/02 continue same treatment 03/03 continue tx. 03/04 continue tx. awaiting placement 03/05 continue tx. 03/06 continue tx. awaiting placement. 03/07 continue tx. 03/08: received oxycodone 5, ativan 1 mg this morning for what appears to be lower back spasm. try flexeril 5 mg one time. otherwise continue current mgmt. 03/09: no c/o back pain today. calm, cooperative. no behavioral issues. asking when she will be discharging. continue current mgmt. 03/10 continue tx. 03/11 continue tx. 03/12 continue tx. 03/13 continue tx. 03/14 continue tx. 03/15: Continue current management and treatment plan. 03/16 continue tx. 03/17- continues tx. will add lidocaine back pain. 03/18 continue tx. 03/19 continue tx. Reason for continued inpatient stay Substantial Risk for: inability to function Time Spent With Patient Time: Total time managing care of this patient today ____ minutes.
[2023-03-19 16:15] LABS: Glucose, Whole Blood 210 mg/dL (60-115)
[2023-03-19 20:10] LABS: Glucose, Whole Blood 170 mg/dL (60-115)
[2023-03-19 20:30] VITALS: BP 127/63; PULSE 64; RESP 16; TEMP 36.2; O2SAT 98
[2023-03-19] MEDS: Divalproex Sodium 500 MG TABLET.DR PO (20:46)
[2023-03-19] MEDS: Valsartan 80 MG TABLET PO (20:46)
[2023-03-19] MEDS: Donepezil HCl 10 MG TABLET PO (20:46)
[2023-03-19] MEDS: Atorvastatin Calcium 20 MG TABLET PO (20:47)
[2023-03-19] MEDS: Insulin Glargine,Hum.rec.anlog 100 UNIT/ML 10 ML VIAL 47 UNIT SUBCUT (20:47)
[2023-03-19] MEDS: traZODone HCL 50 MG TABLET PO (22:40)
[2023-03-19 23:50] VITALS: RESP 16
[2023-03-20] MEDS: Levothyroxine Sodium 75 MCG TABLET PO (05:23)
[2023-03-20] MEDS: Acetaminophen 325 MG TABLET 650 MG PO ×2 (05:24→23:32)
[2023-03-20 06:24] VITALS: RESP 18
[2023-03-20 06:31] LABS: Glucose, Whole Blood 113 mg/dL (60-115)
[2023-03-20 07:00] VITALS: BMI 28.6
[2023-03-20 08:00] VITALS: BP 135/62; PULSE 61; RESP 18; TEMP 36.1; O2SAT 95
[2023-03-20] MEDS: Escitalopram Oxalate 10 MG TABLET PO (08:32)
[2023-03-20] MEDS: Memantine HCl 10 MG TABLET PO ×2 (08:32→20:38)
[2023-03-20] MEDS: Divalproex Sodium 250 MG TABLET.DR PO (08:32)
[2023-03-20] MEDS: Clopidogrel Bisulfate 75 MG TABLET PO (08:32)
[2023-03-20] MEDS: Metoprolol Tartrate 25 MG TABLET PO (08:32)
[2023-03-20] MEDS: Lidocaine 4 % Patch ADH..PATCH 1 PATCH TRANSDERMA ×2 (08:36)
--- NOTE | 2023-03-20 11:09 | P.PNPSI_ITS ---
Subjective Subjective Date of Service: 03/20/23 Reason For Visit: Depression Subjective Notes: Conditional Voluntary Interim History: The nursing staff reported the patient had been appropriate at times confused we delayed responses. On interview the patient denies new symptoms, waiting for placement Mental Status Exam Mental Status Exam Patient Appearance: Appropriate Patient Orientation: Person Level of Consciousness: Awake Patient Behavior: Passive Mood Description: Withdrawn Affect Description: Constricted Patient Cognition Impaired: Yes Ability to Follow Directions: Good Speech Pattern: Clear Hallucinations: None Delusions: Not Present Thought Process: Distracted and Evasive Thought Content: positive for [place] and positive for Poverty of Content Judgement: Fair Diagnostics Vital Signs (24Hr): Vital Signs - 24 hr 03/19/23 20:30 03/19/23 23:50 03/20/23 06:24 Temperature 97.2 F Pulse Rate 64 Respiratory Rate 16 16 18 Blood Pressure 127/63 Pulse Oximetry 98 Oxygen Delivery Method Room Air 03/20/23 08:00 Temperature 97.0 F Pulse Rate 61 Respiratory Rate 18 Blood Pressure 135/62 Pulse Oximetry 95 Oxygen Delivery Method Room Air BMI result Body Mass Index 28.6 Labs 01/07/23 17:49 01/07/23 17:49 Labs: Laboratory Results - last 48 hr 03/18/23 03/18/23 03/18/23 11:25 16:21 19:49 POC Glucose 278 H 185 H 241 H 03/19/23 03/19/23 03/19/23 06:29 11:29 16:09 POC Glucose 172 H 170 H 210 H 03/19/23 03/20/23 19:58 06:18 POC Glucose 170 H 113 Imaging Radiology Impressions: ITS Impressions Venous Duplex 01/30/23 16:02 IMPRESSION: No DVT demonstrated in the bilateral lower extremity. Medications Medications Current Medications Acetaminophen (Acetaminophen 325 Mg Tablet) 650 mg PO Q6H PRN PRN Reason: Headache/Pain Mild Scale (1-3) Last Admin: 03/20/23 05:24 Dose: 650 mg Al Hydroxide/Mg Hydroxide (Magnesium Hydrox/Alum Hydrox 30 Ml Oral.Susp) 30 ml PO Q6H PRN PRN Reason: Heartburn/Nausea Last Admin: 02/10/23 22:17 Dose: 30 ml Artificial Tears (Artificial Tears 15 Ml Drops) 1 drop EYE-BOTH Q4H PRN PRN Reason: Dry Eyes Atorvastatin Calcium (Atorvastatin Calcium 20 Mg Tablet) 20 mg PO BEDTIME [facility] Last Admin: 03/19/23 20:47 Dose: 20 mg Bisacodyl (Bisacodyl 10 Mg Supp.Rect) 10 mg [place] DAILY PRN PRN Reason: Constipation Clopidogrel Bisulfate (Clopidogrel Bisulfate 75 Mg Tablet) 75 mg PO DAILY [facility] Last Admin: 03/20/23 08:32 Dose: 75 mg Divalproex Sodium (Divalproex Sodium 500 Mg Tablet.) 500 mg PO BEDTIME [facility] Last Admin: 03/19/23 20:46 Dose: 500 mg Divalproex Sodium (Divalproex Sodium 250 Mg Tablet.) 250 mg PO DAILY [facility] Last Admin: 03/20/23 08:32 Dose: 250 mg Donepezil HCl (Donepezil Hcl 10 Mg Tablet) 10 mg PO BEDTIME [facility] Last Admin: 03/19/23 20:46 Dose: 10 mg Escitalopram Oxalate (Escitalopram Oxalate 10 Mg Tablet) 10 mg PO DAILY [facility] Last Admin: 03/20/23 08:32 Dose: 10 mg Gabapentin (Gabapentin 600 Mg Tablet) 600 mg PO BEDTIME [facility] Last Admin: 03/19/23 20:46 Dose: 600 mg Gabapentin (Gabapentin 600 Mg Tablet) 600 mg PO DAILY@1300 [facility] Last Admin: 03/19/23 12:46 Dose: 600 mg Glucagon (Glucagon Hcl 1 Mg Vial) 1 mg SUBCUT Q20M PRN PRN Reason: BG <70 AND UNRESPONSIVE Glucose (Glucose Gel 15 Gm Gel..Gram.) 15 gm PO Q15M PRN PRN Reason: BG <70 AND RESPONSIVE Last Admin: 01/30/23 03:12 Dose: 15 gm Insulin Glargine (Insulin Glargine,Hum.Rec.Anlog 100 Unit/Ml 10 Ml Vial) 47 unit SUBCUT BEDTIME [facility] Last Admin: 03/19/23 20:47 Dose: 47 unit Insulin Human Lispro (Insulin Lispro 100 Unit/Ml 3 Ml Vial) 0 unit SUBCUT TIDAC [facility]; Protocol Last Admin: 03/20/23 08:34 Dose: Not Given Levothyroxine Sodium (Levothyroxine Sodium 75 Mcg Tablet) 75 mcg PO DAILY@0630 [facility] Last Admin: 03/20/23 05:23 Dose: 75 mcg Lidocaine (Lidocaine 4 % Patch Adh..Patch) 1 patch TRANSDERMA DAILY [facility]; Protocol Last Admin: 03/20/23 08:36 Dose: 1 patch Lidocaine (Lidocaine 4 % Patch Adh..Patch) 1 patch TRANSDERMA DAILY [facility]; Protocol Last Admin: 03/20/23 08:36 Dose: 1 patch Loperamide HCl (Loperamide Hcl 2 Mg Capsule) 2 mg PO Q6H PRN PRN Reason: diarrhea Last Admin: 03/19/23 17:40 Dose: 2 mg Magnesium Hydroxide (Milk Of Magnesia 30 Ml Oral.Susp) 30 ml PO DAILY PRN PRN Reason: Constipation Magnesium Hydroxide (Milk Of Magnesia 30 Ml Oral.Susp) 30 ml PO DAILY PRN PRN Reason: Constipation Memantine (Memantine Hcl 10 Mg Tablet) 10 mg PO BID [facility] Last Admin: 03/20/23 08:32 Dose: 10 mg Metoprolol Tartrate (Metoprolol Tartrate 25 Mg Tablet) 25 mg PO DAILY [facility]; Protocol Last Admin: 03/20/23 08:32 Dose: 25 mg Quetiapine Fumarate (Quetiapine Fumarate 50 Mg Tablet) 50 mg PO Q6H PRN PRN Reason: agitation Last Admin: 02/26/23 00:10 Dose: 50 mg Sodium Biphosphate/Sodium Phosphate (Sodium Phosphate,[place]-Dibasic 133 Ml Enema) 133 ml [place] DAILY PRN PRN Reason: Constipation Trazodone HCl (Trazodone Hcl 50 Mg Tablet) 50 mg PO BEDTIME PRN PRN Reason: Insomnia Last Admin: 03/19/23 22:40 Dose: 50 mg Valsartan (Valsartan 80 Mg Tablet) 80 mg PO BEDTIME [facility]; Protocol Last Admin: 03/19/23 20:46 Dose: 80 mg Allergies Allergies Allergy/AdvReac Type Severity Reaction Status Date / Time aspirin [ASPIRIN] Allergy Unknown UNKNOWN Verified 01/01/23 09:43 Assessment & Plan Assessment & Plan (1) Major neurocognitive disorder: Status: Acute Code(s): F03.90 - Unspecified dementia, unspecified severity, without behavioral disturbance, psychotic disturbance, mood disturbance, and anxiety (2) Mood disorder: Status: Acute Code(s): F39 - Unspecified mood [affective] disorder Plan Ms. Landis is a 67 year-old woman with hx of Mood Disorder (untreated for most of her life) and neurocognitive disorder who was brought via EMS from [facility] due to increase verbal aggression towards roommate and one of their staff. Pt is known to this typewriter repairer through previous assessment for similar presentation. Pt presents as calmer, she does admit to being verbally abusive, although denies any intent to harm self or others. She does lack the insight into how her behaviors affect others and her relationships with others. This tendency to have difficulty seeing other people's need per daughter has been life long. Pt presents with tendency to be irritable, at times explosive but not physically aggressive. She was started back in September on low dose of seroquel but no further medication adjustments have been made to manage these symptoms, which are disruptive but not life threatening nor at imminent risk of harm to self or others. As consequence of minimal intervention in the community, pt has had more frequent ED visits here and at [facility]. We discussed risks, benefits and alternative treatment options, pt agrees to start mood stabilizer for impulsive, explosive behaviors. We also discussed switching seroquel to risperidone. Pt is orientation has been intact all along. PLAN 01/20 schedule trazodone 50mg po qhs for sleep. 01/21 continue tx. depakote levels scheduled for tomorrow AM with ammonia levels. 01/22 trough depakote level 75, ammonia 41. continue tx. continue tx 01/24 continue tx. 01/25 continue tx. 01/26 continue tx. 01/27: continue current mgmt. 01/28: continue current mgmt. 01/29 continue tx. 01/30 continue tx. 01/31 continues tx-continue monitor bilat LE- doppler did not show DVT. 02/01: No change in medications, continue current plan of care. 02/02: Continue current plan. 02/03: Continue current plans and regimen 02/04 continue tx. 02/05 continue tx. 02/06 continue tx. 02/07 continue tx. 02/09: no changes 02/10 continue tx. 02/11 continue tx. 02/12 continue tx. 02/13 continue tx. 02/14 continue tx. awaiting placement. 02/15: Continue current treatment plan. 02/16: Continue current plan. 02/17 continue tx. 02/18 continue tx. 02/19 continue tx. 02/20 continue tx. 02/21 continue tx. 02/22: Continue current plans and regimen 02/23: Continue current plans and regimen 02/24 continue tx 02/25 continue tx. 02/26 continue tx. 02/27 continue tx. 02/28 continue tx. 03/01 continue same treatment 03/02 continue same treatment 03/03 continue tx. 03/04 continue tx. awaiting placement 03/05 continue tx. 03/06 continue tx. awaiting placement. 03/07 continue tx. 03/08: received oxycodone 5, ativan 1 mg this morning for what appears to be lower back spasm. try flexeril 5 mg one time. otherwise continue current mgmt. 03/09: no c/o back pain today. calm, cooperative. no behavioral issues. asking when she will be discharging. continue current mgmt. 03/10 continue tx. 03/11 continue tx. 03/12 continue tx. 03/13 continue tx. 03/14 continue tx. 03/15: Continue current management and treatment plan. 03/16 continue tx. 03/17- continues tx. will add lidocaine back pain. 03/18 continue tx. 03/19 continue tx. 03/20 continue same treatment Reason for continued inpatient stay Substantial Risk for: inability to function, rapid decompensation and med/psych decompensation Time Spent With Patient Time: Total time managing care of this patient today __20__ minutes.
[2023-03-20 11:38] LABS: Glucose, Whole Blood 263 mg/dL (60-115)
[2023-03-20] MEDS: Insulin Lispro 100 UNIT/ML 3 ML VIAL SUBCUT (11:40)
[2023-03-20] MEDS: Gabapentin 600 MG TABLET PO ×2 (13:44→20:37)
[2023-03-20 16:07] LABS: Glucose, Whole Blood 90 mg/dL (60-115)
[2023-03-20 18:00] VITALS: BP 142/69; PULSE 60; RESP 18; TEMP 36.3; O2SAT 98
[2023-03-20 20:08] LABS: Glucose, Whole Blood 191 mg/dL (60-115)
[2023-03-20] MEDS: Insulin Glargine,Hum.rec.anlog 100 UNIT/ML 10 ML VIAL 47 UNIT SUBCUT (20:36)
[2023-03-20] MEDS: Divalproex Sodium 500 MG TABLET.DR PO (20:37)
[2023-03-20] MEDS: Valsartan 80 MG TABLET PO (20:37)
[2023-03-20] MEDS: traZODone HCL 50 MG TABLET PO ×2 (20:37→23:32)
[2023-03-20] MEDS: Donepezil HCl 10 MG TABLET PO (20:38)
[2023-03-20] MEDS: Atorvastatin Calcium 20 MG TABLET PO (21:44)
[2023-03-21] MEDS: Levothyroxine Sodium 75 MCG TABLET PO (05:46)
[2023-03-21] MEDS: Acetaminophen 325 MG TABLET 650 MG PO (06:24)
[2023-03-21 06:52] LABS: Glucose, Whole Blood 100 mg/dL (60-115)
[2023-03-21 08:00] VITALS: BP 123/60; PULSE 65; RESP 18; TEMP 36; O2SAT 95
[2023-03-21] MEDS: Lidocaine 4 % Patch ADH..PATCH 1 PATCH TRANSDERMA ×2 (08:48→08:55)
[2023-03-21] MEDS: Memantine HCl 10 MG TABLET PO ×2 (08:48→20:44)
[2023-03-21] MEDS: Escitalopram Oxalate 10 MG TABLET PO (08:48)
[2023-03-21] MEDS: Clopidogrel Bisulfate 75 MG TABLET PO (08:48)
[2023-03-21] MEDS: Divalproex Sodium 250 MG TABLET.DR PO (08:48)
[2023-03-21] MEDS: Metoprolol Tartrate 25 MG TABLET PO (08:48)
[2023-03-21 11:17] LABS: Glucose, Whole Blood 264 mg/dL (60-115)
[2023-03-21] MEDS: Insulin Lispro 100 UNIT/ML 3 ML VIAL SUBCUT ×2 (11:24→17:00)
--- NOTE | 2023-03-21 12:49 | P.PNPSI_ITS ---
Subjective Subjective Date of Service: 03/21/23 Reason For Visit: Depression Subjective Notes: Conditional Voluntary Interim History: the nursing staff reported no changes in her mental status, she slept 6 hours and she was fully compliant with medications and meals. On interview the patient is pleasantly confused. Waiting for placement. Mental Status Exam Mental Status Exam Patient Appearance: Well Grooomed and Appropriate Patient Orientation: Person and Situation Level of Consciousness: Awake Patient Behavior: Guarded and Passive Mood Description: Withdrawn Affect Description: Constricted Patient Cognition Impaired: Yes Ability to Follow Directions: Good Speech Pattern: Clear Hallucinations: None Delusions: Not Present Thought Process: Distracted and Slowed Thinking Thought Content: positive for [place] and positive for Poverty of Content Judgement: Fair Diagnostics Vital Signs (24Hr): Vital Signs - 24 hr 03/20/23 18:00 03/21/23 08:00 Temperature 97.4 F 96.8 F Pulse Rate 60 65 Respiratory Rate 18 18 Blood Pressure 142/69 H 123/60 Pulse Oximetry 98 95 Oxygen Delivery Method Room Air Room Air BMI result Body Mass Index 28.6 Labs 01/07/23 17:49 01/07/23 17:49 Labs: Laboratory Results - last 48 hr 03/19/23 03/19/23 03/20/23 16:09 19:58 06:18 POC Glucose 210 H 170 H 113 03/20/23 03/20/23 03/20/23 11:34 16:01 19:37 POC Glucose 263 H 90 191 H 03/21/23 03/21/23 06:23 11:12 POC Glucose 100 264 H Imaging Radiology Impressions: ITS Impressions Venous Duplex 01/30/23 16:02 IMPRESSION: No DVT demonstrated in the bilateral lower extremity. Medications Medications Current Medications Acetaminophen (Acetaminophen 325 Mg Tablet) 650 mg PO Q6H PRN PRN Reason: Headache/Pain Mild Scale (1-3) Last Admin: 03/21/23 06:24 Dose: 650 mg Al Hydroxide/Mg Hydroxide (Magnesium Hydrox/Alum Hydrox 30 Ml Oral.Susp) 30 ml PO Q6H PRN PRN Reason: Heartburn/Nausea Last Admin: 02/10/23 22:17 Dose: 30 ml Artificial Tears (Artificial Tears 15 Ml Drops) 1 drop EYE-BOTH Q4H PRN PRN Reason: Dry Eyes Atorvastatin Calcium (Atorvastatin Calcium 20 Mg Tablet) 20 mg PO BEDTIME [facility] Last Admin: 03/20/23 21:44 Dose: 20 mg Bisacodyl (Bisacodyl 10 Mg Supp.Rect) 10 mg [place] DAILY PRN PRN Reason: Constipation Clopidogrel Bisulfate (Clopidogrel Bisulfate 75 Mg Tablet) 75 mg PO DAILY [facility] Last Admin: 03/21/23 08:48 Dose: 75 mg Divalproex Sodium (Divalproex Sodium 500 Mg Tablet.Dr) 500 mg PO BEDTIME [facility] Last Admin: 03/20/23 20:37 Dose: 500 mg Divalproex Sodium (Divalproex Sodium 250 Mg Tablet.Dr) 250 mg PO DAILY [facility] Last Admin: 03/21/23 08:48 Dose: 250 mg Donepezil HCl (Donepezil Hcl 10 Mg Tablet) 10 mg PO BEDTIME [facility] Last Admin: 03/20/23 20:38 Dose: 10 mg Escitalopram Oxalate (Escitalopram Oxalate 10 Mg Tablet) 10 mg PO DAILY [facility] Last Admin: 03/21/23 08:48 Dose: 10 mg Gabapentin (Gabapentin 600 Mg Tablet) 600 mg PO BEDTIME [facility] Last Admin: 03/20/23 20:37 Dose: 600 mg Gabapentin (Gabapentin 600 Mg Tablet) 600 mg PO DAILY@1300 [facility] Last Admin: 03/20/23 13:44 Dose: 600 mg Glucagon (Glucagon Hcl 1 Mg Vial) 1 mg SUBCUT Q20M PRN PRN Reason: BG <70 AND UNRESPONSIVE Glucose (Glucose Gel 15 Gm Gel..Gram.) 15 gm PO Q15M PRN PRN Reason: BG <70 AND RESPONSIVE Last Admin: 01/30/23 03:12 Dose: 15 gm Insulin Glargine (Insulin Glargine,Hum.Rec.Anlog 100 Unit/Ml 10 Ml Vial) 47 unit SUBCUT BEDTIME [facility] Last Admin: 03/20/23 20:36 Dose: 47 unit Insulin Human Lispro (Insulin Lispro 100 Unit/Ml 3 Ml Vial) 0 unit SUBCUT TIDAC [facility]; Protocol Last Admin: 03/21/23 11:24 Dose: 8 unit Levothyroxine Sodium (Levothyroxine Sodium 75 Mcg Tablet) 75 mcg PO DAILY@0630 [facility] Last Admin: 03/21/23 05:46 Dose: 75 mcg Lidocaine (Lidocaine 4 % Patch Adh..Patch) 1 patch TRANSDERMA DAILY [facility]; Protocol Last Admin: 03/21/23 08:55 Dose: 1 patch Lidocaine (Lidocaine 4 % Patch Adh..Patch) 1 patch TRANSDERMA DAILY [facility]; Protocol Last Admin: 03/21/23 08:48 Dose: 1 patch Loperamide HCl (Loperamide Hcl 2 Mg Capsule) 2 mg PO Q6H PRN PRN Reason: diarrhea Last Admin: 03/19/23 17:40 Dose: 2 mg Magnesium Hydroxide (Milk Of Magnesia 30 Ml Oral.Susp) 30 ml PO DAILY PRN PRN Reason: Constipation Magnesium Hydroxide (Milk Of Magnesia 30 Ml Oral.Susp) 30 ml PO DAILY PRN PRN Reason: Constipation Memantine (Memantine Hcl 10 Mg Tablet) 10 mg PO BID [facility] Last Admin: 03/21/23 08:48 Dose: 10 mg Metoprolol Tartrate (Metoprolol Tartrate 25 Mg Tablet) 25 mg PO DAILY [facility]; Protocol Last Admin: 03/21/23 08:48 Dose: 25 mg Quetiapine Fumarate (Quetiapine Fumarate 50 Mg Tablet) 50 mg PO Q6H PRN PRN Reason: agitation Last Admin: 02/26/23 00:10 Dose: 50 mg Sodium Biphosphate/Sodium Phosphate (Sodium Phosphate,[place]-Dibasic 133 Ml Enema) 133 ml [place] DAILY PRN PRN Reason: Constipation Trazodone HCl (Trazodone Hcl 50 Mg Tablet) 50 mg PO BEDTIME PRN PRN Reason: Insomnia Last Admin: 03/20/23 23:32 Dose: 50 mg Valsartan (Valsartan 80 Mg Tablet) 80 mg PO BEDTIME [facility]; Protocol Last Admin: 03/20/23 20:37 Dose: 80 mg Allergies Allergies Allergy/AdvReac Type Severity Reaction Status Date / Time aspirin [ASPIRIN] Allergy Unknown UNKNOWN Verified 01/01/23 09:43 Assessment & Plan Assessment & Plan (1) Major neurocognitive disorder: Status: Acute Code(s): F03.90 - Unspecified dementia, unspecified severity, without behavioral disturbance, psychotic disturbance, mood disturbance, and anxiety (2) Mood disorder: Status: Acute Code(s): F39 - Unspecified mood [affective] disorder Plan Ms. Landis is a 67 year-old woman with hx of Mood Disorder (untreated for most of her life) and neurocognitive disorder who was brought via EMS from [facility] due to increase verbal aggression towards roommate and one of their staff. Pt is known to this insurance writer through previous assessment for similar presentation. Pt presents as calmer, she does admit to being verbally abusive, although denies any intent to harm self or others. She does lack the insight into how her behaviors affect others and her relationships with others. This tendency to have difficulty seeing other people's need per daughter has been life long. Pt presents with tendency to be irritable, at times explosive but not physically aggressive. She was started back in September on low dose of seroquel but no further medication adjustments have been made to manage these symptoms, which are disruptive but not life threatening nor at imminent risk of harm to self or others. As consequence of minimal intervention in the community, pt has had more frequent ED visits here and at [facility]. We discussed risks, benefits and alternative treatment options, pt agrees to start mood stabilizer for impulsive, explosive behaviors. We also discussed switching seroquel to risperidone. Pt is orientation has been intact all along. PLAN 01/20 schedule trazodone 50mg po qhs for sleep. 01/21 continue tx. depakote levels scheduled for tomorrow AM with ammonia levels. 01/22 trough depakote level 75, ammonia 41. continue tx. continue tx 01/24 continue tx. 01/25 continue tx. 01/26 continue tx. 01/27: continue current mgmt. 01/28: continue current mgmt. 01/29 continue tx. 01/30 continue tx. 01/31 continues tx-continue monitor bilat LE- doppler did not show DVT. 02/01: No change in medications, continue current plan of care. 02/02: Continue current plan. 02/03: Continue current plans and regimen 02/04 continue tx. 02/05 continue tx. 02/06 continue tx. 02/07 continue tx. 02/09: no changes 02/10 continue tx. 02/11 continue tx. 02/12 continue tx. 02/13 continue tx. 02/14 continue tx. awaiting placement. 02/15: Continue current treatment plan. 02/16: Continue current plan. 02/17 continue tx. 02/18 continue tx. 02/19 continue tx. 02/20 continue tx. 02/21 continue tx. 02/22: Continue current plans and regimen 02/23: Continue current plans and regimen 02/24 continue tx 02/25 continue tx. 11/1 continue tx. 02/27 continue tx. 02/28 continue tx. 03/01 continue same treatment 03/02 continue same treatment 03/03 continue tx. 03/04 continue tx. awaiting placement 03/05 continue tx. 03/06 continue tx. awaiting placement. 03/07 continue tx. 03/08: received oxycodone 5, ativan 1 mg this morning for what appears to be lower back spasm. try flexeril 5 mg one time. otherwise continue current mgmt. 03/09: no c/o back pain today. calm, cooperative. no behavioral issues. asking when she will be discharging. continue current mgmt. 03/10 continue tx. 03/11 continue tx. 03/12 continue tx. 03/13 continue tx. 03/14 continue tx. 03/15: Continue current management and treatment plan. 03/16 continue tx. 03/17- continues tx. will add lidocaine back pain. 03/18 continue tx. 03/19 continue tx. 03/20 continue same treatment 03/21 continue same treatment Reason for continued inpatient stay Substantial Risk for: inability to function, rapid decompensation and med/psych decompensation Time Spent With Patient Time: Total time managing care of this patient today __20__ minutes.
[2023-03-21] MEDS: Gabapentin 600 MG TABLET PO ×2 (14:06→20:44)
[2023-03-21 16:04] LABS: Glucose, Whole Blood 256 mg/dL (60-115)
[2023-03-21 20:06] VITALS: BP 129/65; PULSE 67; RESP 18; TEMP 36.6; O2SAT 94
[2023-03-21] MEDS: Donepezil HCl 10 MG TABLET PO (20:44)
[2023-03-21] MEDS: Insulin Glargine,Hum.rec.anlog 100 UNIT/ML 10 ML VIAL 47 UNIT SUBCUT (20:44)
[2023-03-21] MEDS: Valsartan 80 MG TABLET PO (20:44)
[2023-03-21] MEDS: Divalproex Sodium 500 MG TABLET.DR PO (20:44)
[2023-03-21] MEDS: Atorvastatin Calcium 20 MG TABLET PO (20:44)
[2023-03-21 21:51] LABS: Glucose, Whole Blood 284 mg/dL (60-115)
--- NOTE | 2023-03-21 23:31 | PC.NURSE ---
Assumed care of patient 19:30. See assessments and eMAR for full details. Handoff report given 23:25.
[2023-03-22] MEDS: Levothyroxine Sodium 75 MCG TABLET PO (06:47)
[2023-03-22 07:01] LABS: Glucose, Whole Blood 218 mg/dL (60-115)
[2023-03-22 08:24] VITALS: BP 124/61; PULSE 75; RESP 15; TEMP 36.3; O2SAT 93
[2023-03-22] MEDS: Lidocaine 4 % Patch ADH..PATCH 1 PATCH TRANSDERMA ×2 (08:29)
[2023-03-22] MEDS: Insulin Lispro 100 UNIT/ML 3 ML VIAL SUBCUT ×2 (08:29→17:22)
[2023-03-22] MEDS: Metoprolol Tartrate 25 MG TABLET PO (08:31)
[2023-03-22] MEDS: Clopidogrel Bisulfate 75 MG TABLET PO (08:31)
[2023-03-22] MEDS: Memantine HCl 10 MG TABLET PO ×2 (08:31→20:36)
[2023-03-22] MEDS: Escitalopram Oxalate 10 MG TABLET PO (08:31)
[2023-03-22] MEDS: Divalproex Sodium 250 MG TABLET.DR PO (08:31)
[2023-03-22 11:30] LABS: Glucose, Whole Blood 145 mg/dL (60-115)
[2023-03-22] MEDS: Acetaminophen 325 MG TABLET 650 MG PO (13:27)
[2023-03-22] MEDS: Gabapentin 600 MG TABLET PO ×2 (13:28→20:36)
--- NOTE | 2023-03-22 14:10 | P.PNPSI_ITS ---
Subjective Subjective Date of Service: 03/22/23 Reason For Visit: Depression Subjective Notes: Conditional Voluntary Interim History: Pt pleasant on approach. She denies IS/HI. no significant pain reported other than chronic back pain and neck pain. She has been visible on the unit. Stable VS. Takes meds as prescribed. No behavioral concerns. Medication Compliance: Yes Review of Systems Review of Systems nothing acute Yes all other systems are reviewed and are negative Mental Status Exam Mental Status Exam Narrative: Appearance: Casual attire, good hygiene, in NAD, ambulating with walker Behavior: cooperative, calm Psychomotor: no agitation noted Speech: clear, normal rate/rhythm/volume, spontaneous TP: linear Mood: good Affect: Calm VH/AH: none expressed Delusions: none expressed Insight/judgment: fair x 2. Memory/cog: alert, oriented x 3. Diagnostics Vital Signs (24Hr): Vital Signs - 24 hr 03/21/23 20:06 03/22/23 08:24 Temperature 97.8 F 97.4 F Pulse Rate 67 75 Respiratory Rate 18 15 Blood Pressure 129/65 124/61 Pulse Oximetry 94 93 Oxygen Delivery Method Room Air Room Air BMI result Body Mass Index 28.6 Labs 01/07/23 17:49 01/07/23 17:49 Labs: Laboratory Results - last 48 hr 03/20/23 03/20/23 03/21/23 16:01 19:37 06:23 POC Glucose 90 191 H 100 03/21/23 03/21/23 03/21/23 11:12 16:00 20:05 POC Glucose 264 H 256 H 284 H 03/22/23 03/22/23 06:49 11:26 POC Glucose 218 H 145 H Imaging Radiology Impressions: ITS Impressions Venous Duplex 01/30/23 16:02 IMPRESSION: No DVT demonstrated in the bilateral lower extremity. Medications Medications Current Medications Acetaminophen (Acetaminophen 325 Mg Tablet) 650 mg PO Q6H PRN PRN Reason: Headache/Pain Mild Scale (1-3) Last Admin: 03/22/23 13:27 Dose: 650 mg Al Hydroxide/Mg Hydroxide (Magnesium Hydrox/Alum Hydrox 30 Ml Oral.Susp) 30 ml PO Q6H PRN PRN Reason: Heartburn/Nausea Last Admin: 02/10/23 22:17 Dose: 30 ml Artificial Tears (Artificial Tears 15 Ml Drops) 1 drop EYE-BOTH Q4H PRN PRN Reason: Dry Eyes Atorvastatin Calcium (Atorvastatin Calcium 20 Mg Tablet) 20 mg PO BEDTIME [facility] Last Admin: 03/21/23 20:44 Dose: 20 mg Bisacodyl (Bisacodyl 10 Mg Supp.Rect) 10 mg [place] DAILY PRN PRN Reason: Constipation Clopidogrel Bisulfate (Clopidogrel Bisulfate 75 Mg Tablet) 75 mg PO DAILY [facility] Last Admin: 03/22/23 08:31 Dose: 75 mg Divalproex Sodium (Divalproex Sodium 500 Mg Tablet.) 500 mg PO BEDTIME [facility] Last Admin: 03/21/23 20:44 Dose: 500 mg Divalproex Sodium (Divalproex Sodium 250 Mg Tablet.) 250 mg PO DAILY [facility] Last Admin: 03/22/23 08:31 Dose: 250 mg Donepezil HCl (Donepezil Hcl 10 Mg Tablet) 10 mg PO BEDTIME [facility] Last Admin: 03/21/23 20:44 Dose: 10 mg Escitalopram Oxalate (Escitalopram Oxalate 10 Mg Tablet) 10 mg PO DAILY [facility] Last Admin: 03/22/23 08:31 Dose: 10 mg Gabapentin (Gabapentin 600 Mg Tablet) 600 mg PO BEDTIME [facility] Last Admin: 03/21/23 20:44 Dose: 600 mg Gabapentin (Gabapentin 600 Mg Tablet) 600 mg PO DAILY@1300 [facility] Last Admin: 03/22/23 13:28 Dose: 600 mg Glucagon (Glucagon Hcl 1 Mg Vial) 1 mg SUBCUT Q20M PRN PRN Reason: BG <70 AND UNRESPONSIVE Glucose (Glucose Gel 15 Gm Gel..Gram.) 15 gm PO Q15M PRN PRN Reason: BG <70 AND RESPONSIVE Last Admin: 01/30/23 03:12 Dose: 15 gm Insulin Glargine (Insulin Glargine,Hum.Rec.Anlog 100 Unit/Ml 10 Ml Vial) 47 unit SUBCUT BEDTIME [facility] Last Admin: 03/21/23 20:44 Dose: 47 unit Insulin Human Lispro (Insulin Lispro 100 Unit/Ml 3 Ml Vial) 0 unit SUBCUT TIDAC [facility]; Protocol Last Admin: 03/22/23 12:30 Dose: Not Given Levothyroxine Sodium (Levothyroxine Sodium 75 Mcg Tablet) 75 mcg PO DAILY@0630 [facility] Last Admin: 03/22/23 06:47 Dose: 75 mcg Lidocaine (Lidocaine 4 % Patch Adh..Patch) 1 patch TRANSDERMA DAILY [facility]; Protocol Last Admin: 03/22/23 08:29 Dose: 1 patch Lidocaine (Lidocaine 4 % Patch Adh..Patch) 1 patch TRANSDERMA DAILY [facility]; Protocol Last Admin: 03/22/23 08:29 Dose: 1 patch Loperamide HCl (Loperamide Hcl 2 Mg Capsule) 2 mg PO Q6H PRN PRN Reason: diarrhea Last Admin: 03/19/23 17:40 Dose: 2 mg Magnesium Hydroxide (Milk Of Magnesia 30 Ml Oral.Susp) 30 ml PO DAILY PRN PRN Reason: Constipation Magnesium Hydroxide (Milk Of Magnesia 30 Ml Oral.Susp) 30 ml PO DAILY PRN PRN Reason: Constipation Memantine (Memantine Hcl 10 Mg Tablet) 10 mg PO BID [facility] Last Admin: 03/22/23 08:31 Dose: 10 mg Metoprolol Tartrate (Metoprolol Tartrate 25 Mg Tablet) 25 mg PO DAILY [facility]; Protocol Last Admin: 03/22/23 08:31 Dose: 25 mg Quetiapine Fumarate (Quetiapine Fumarate 50 Mg Tablet) 50 mg PO Q6H PRN PRN Reason: agitation Last Admin: 02/26/23 00:10 Dose: 50 mg Sodium Biphosphate/Sodium Phosphate (Sodium Phosphate,[place]-Dibasic 133 Ml Enema) 133 ml [place] DAILY PRN PRN Reason: Constipation Trazodone HCl (Trazodone Hcl 50 Mg Tablet) 50 mg PO BEDTIME PRN PRN Reason: Insomnia Last Admin: 03/20/23 23:32 Dose: 50 mg Valsartan (Valsartan 80 Mg Tablet) 80 mg PO BEDTIME [facility]; Protocol Last Admin: 03/21/23 20:44 Dose: 80 mg Allergies Allergies Allergy/AdvReac Type Severity Reaction Status Date / Time aspirin [ASPIRIN] Allergy Unknown UNKNOWN Verified 01/01/23 09:43 Assessment & Plan Assessment & Plan (1) Major neurocognitive disorder: Status: Acute Code(s): F03.90 - Unspecified dementia, unspecified severity, without behavioral disturbance, psychotic disturbance, mood disturbance, and anxiety (2) Mood disorder: Status: Acute Code(s): F39 - Unspecified mood [affective] disorder Plan Ms. Landis is a 67 year-old woman with hx of Mood Disorder (untreated for most of her life) and neurocognitive disorder who was brought via EMS from [facility] due to increase verbal aggression towards roommate and one of their staff. Pt is known to this sql report writer through previous assessment for similar presentation. Pt presents as calmer, she does admit to being verbally abusive, although denies any intent to harm self or others. She does lack the insight into how her behaviors affect others and her relationships with others. This tendency to have difficulty seeing other people's need per daughter has been life long. Pt presents with tendency to be irritable, at times explosive but not physically aggressive. She was started back in September on low dose of seroquel but no further medication adjustments have been made to manage these symptoms, which are disruptive but not life threatening nor at imminent risk of harm to self or others. As consequence of minimal intervention in the community, pt has had more frequent ED visits here and at [facility]. We discussed risks, benefits and alternative treatment options, pt agrees to start mood stabilizer for impulsive, explosive behaviors. We also discussed switching seroquel to risperidone. Pt is orientation has been intact all along. PLAN 01/20 schedule trazodone 50mg po qhs for sleep. 01/21 continue tx. depakote levels scheduled for tomorrow AM with ammonia levels. 01/22 trough depakote level 75, ammonia 41. continue tx. continue tx 01/24 continue tx. 01/25 continue tx. 01/26 continue tx. 01/27: continue current mgmt. 01/28: continue current mgmt. 01/29 continue tx. 01/30 continue tx. 01/31 continues tx-continue monitor bilat LE- doppler did not show DVT. 02/01: No change in medications, continue current plan of care. 02/02: Continue current plan. 02/03: Continue current plans and regimen 02/04 continue tx. 02/05 continue tx. 02/06 continue tx. 02/07 continue tx. 02/09: no changes 02/10 continue tx. 02/11 continue tx. 02/12 continue tx. 02/13 continue tx. 02/14 continue tx. awaiting placement. 02/15: Continue current treatment plan. 02/16: Continue current plan. 02/17 continue tx. 02/18 continue tx. 02/19 continue tx. 02/20 continue tx. 02/21 continue tx. 02/22: Continue current plans and regimen 02/23: Continue current plans and regimen 02/24 continue tx 02/25 continue tx. 02/26 continue tx. 02/27 continue tx. 02/28 continue tx. 03/01 continue same treatment 03/02 continue same treatment 03/03 continue tx. 03/04 continue tx. awaiting placement 03/05 continue tx. 03/06 continue tx. awaiting placement. 03/07 continue tx. 03/08: received oxycodone 5, ativan 1 mg this morning for what appears to be lower back spasm. try flexeril 5 mg one time. otherwise continue current mgmt. 03/09: no c/o back pain today. calm, cooperative. no behavioral issues. asking when she will be discharging. continue current mgmt. 03/10 continue tx. 03/11 continue tx. 03/12 continue tx. 03/13 continue tx. 03/14 continue tx. 03/15: Continue current management and treatment plan. 03/16 continue tx. 03/17- continues tx. will add lidocaine back pain. 03/18 continue tx. 03/19 continue tx. 03/20 continue same treatment 03/21 continue same treatment 03/22 continue tx. Reason for continued inpatient stay Substantial Risk for: inability to function Time Spent With Patient Time: Total time managing care of this patient today ____ minutes.
[2023-03-22 16:40] LABS: Glucose, Whole Blood 251 mg/dL (60-115)
[2023-03-22 19:32] VITALS: BP 131/59; PULSE 69; RESP 18; TEMP 36.6; O2SAT 96
[2023-03-22] MEDS: Atorvastatin Calcium 20 MG TABLET PO (20:36)
[2023-03-22] MEDS: traZODone HCL 50 MG TABLET PO (20:36)
[2023-03-22] MEDS: Donepezil HCl 10 MG TABLET PO (20:36)
[2023-03-22] MEDS: Insulin Glargine,Hum.rec.anlog 100 UNIT/ML 10 ML VIAL 47 UNIT SUBCUT (20:36)
[2023-03-22] MEDS: Divalproex Sodium 500 MG TABLET.DR PO (20:36)
[2023-03-22] MEDS: Valsartan 80 MG TABLET PO (20:36)
[2023-03-22 21:24] LABS: Glucose, Whole Blood 249 mg/dL (60-115)
[2023-03-22 21:52] VITALS: RESP 18
[2023-03-23] MEDS: Acetaminophen 325 MG TABLET 650 MG PO (03:28)
[2023-03-23] MEDS: Levothyroxine Sodium 75 MCG TABLET PO (05:59)
[2023-03-23 06:17] LABS: Glucose, Whole Blood 78 mg/dL (60-115)
--- NOTE | 2023-03-23 06:18 | PC.NURSE ---
AM POC 78. Pt asymptomatic. Ambulated to [facility] for coffee and banana per pt request on waking for scheduled AM med.
[2023-03-23 08:28] VITALS: BP 116/67; PULSE 85; RESP 15; TEMP 36.4; O2SAT 97
[2023-03-23] MEDS: Divalproex Sodium 250 MG TABLET.DR PO (08:30)
[2023-03-23] MEDS: Clopidogrel Bisulfate 75 MG TABLET PO (08:30)
[2023-03-23] MEDS: Escitalopram Oxalate 10 MG TABLET PO (08:30)
[2023-03-23] MEDS: Metoprolol Tartrate 25 MG TABLET PO (08:30)
[2023-03-23] MEDS: Memantine HCl 10 MG TABLET PO ×2 (08:30→20:59)
[2023-03-23 11:07] LABS: Glucose, Whole Blood 273 mg/dL (60-115)
[2023-03-23] MEDS: Insulin Lispro 100 UNIT/ML 3 ML VIAL SUBCUT ×2 (12:32→17:19)
[2023-03-23] MEDS: Gabapentin 600 MG TABLET PO ×2 (12:33→20:58)
[2023-03-23 16:20] LABS: Glucose, Whole Blood 274 mg/dL (60-115)
--- NOTE | 2023-03-23 16:31 | P.PNPSI_ITS ---
Subjective Subjective Date of Service: 03/23/23 Reason For Visit: Depression Interim History: Pt irritable today due to another pt being noisy. She was briefly irritable but later calmed down. She denies IS/HI. no significant pain reported other than chronic back pain and neck pain. She has been visible on the unit. Stable VS. Takes meds as prescribed. No behavioral concerns. Review of Systems Review of Systems nothing acute Yes all other systems are reviewed and are negative Mental Status Exam Mental Status Exam Narrative: Appearance: Casual attire, good hygiene, in NAD, ambulating with walker Behavior: cooperative, calm Psychomotor: no agitation noted Speech: clear, normal rate/rhythm/volume, spontaneous TP: linear Mood: good Affect: Calm VH/AH: none expressed Delusions: none expressed Insight/judgment: fair x 2. Memory/cog: alert, oriented x 3. Diagnostics Vital Signs (24Hr): Vital Signs - 24 hr 03/22/23 19:32 03/22/23 21:52 03/23/23 08:28 Temperature 97.8 F 97.5 F Pulse Rate 69 85 Respiratory Rate 18 18 15 Blood Pressure 131/59 L 116/67 Pulse Oximetry 96 97 Oxygen Delivery Method Room Air Room Air BMI result Body Mass Index 28.6 Labs 01/07/23 17:49 01/07/23 17:49 Labs: Laboratory Results - last 48 hr 03/21/23 03/22/23 03/22/23 20:05 06:49 11:26 POC Glucose 284 H 218 H 145 H 03/22/23 03/22/23 03/23/23 16:36 19:36 05:58 POC Glucose 251 H 249 H 78 03/23/23 03/23/23 11:00 16:13 POC Glucose 273 H 274 H Imaging Radiology Impressions: ITS Impressions Venous Duplex 01/30/23 16:02 IMPRESSION: No DVT demonstrated in the bilateral lower extremity. Medications Medications Current Medications Acetaminophen (Acetaminophen 325 Mg Tablet) 650 mg PO Q6H PRN PRN Reason: Headache/Pain Mild Scale (1-3) Last Admin: 03/23/23 03:28 Dose: 650 mg Al Hydroxide/Mg Hydroxide (Magnesium Hydrox/Alum Hydrox 30 Ml Oral.Susp) 30 ml PO Q6H PRN PRN Reason: Heartburn/Nausea Last Admin: 02/10/23 22:17 Dose: 30 ml Artificial Tears (Artificial Tears 15 Ml Drops) 1 drop EYE-BOTH Q4H PRN PRN Reason: Dry Eyes Atorvastatin Calcium (Atorvastatin Calcium 20 Mg Tablet) 20 mg PO BEDTIME [facility] Last Admin: 03/22/23 20:36 Dose: 20 mg Bisacodyl (Bisacodyl 10 Mg Supp.Rect) 10 mg [place] DAILY PRN PRN Reason: Constipation Clopidogrel Bisulfate (Clopidogrel Bisulfate 75 Mg Tablet) 75 mg PO DAILY [facility] Last Admin: 03/23/23 08:30 Dose: 75 mg Divalproex Sodium (Divalproex Sodium 500 Mg Tablet.) 500 mg PO BEDTIME [facility] Last Admin: 03/22/23 20:36 Dose: 500 mg Divalproex Sodium (Divalproex Sodium 250 Mg Tablet.) 250 mg PO DAILY [facility] Last Admin: 03/23/23 08:30 Dose: 250 mg Donepezil HCl (Donepezil Hcl 10 Mg Tablet) 10 mg PO BEDTIME [facility] Last Admin: 03/22/23 20:36 Dose: 10 mg Escitalopram Oxalate (Escitalopram Oxalate 10 Mg Tablet) 10 mg PO DAILY [facility] Last Admin: 03/23/23 08:30 Dose: 10 mg Gabapentin (Gabapentin 600 Mg Tablet) 600 mg PO BEDTIME [facility] Last Admin: 03/22/23 20:36 Dose: 600 mg Gabapentin (Gabapentin 600 Mg Tablet) 600 mg PO DAILY@1300 [facility] Last Admin: 03/23/23 12:33 Dose: 600 mg Glucagon (Glucagon Hcl 1 Mg Vial) 1 mg SUBCUT Q20M PRN PRN Reason: BG <70 AND UNRESPONSIVE Glucose (Glucose Gel 15 Gm Gel..Gram.) 15 gm PO Q15M PRN PRN Reason: BG <70 AND RESPONSIVE Last Admin: 01/30/23 03:12 Dose: 15 gm Insulin Glargine (Insulin Glargine,Hum.Rec.Anlog 100 Unit/Ml 10 Ml Vial) 47 unit SUBCUT BEDTIME [facility] Last Admin: 03/22/23 20:36 Dose: 47 unit Insulin Human Lispro (Insulin Lispro 100 Unit/Ml 3 Ml Vial) 0 unit SUBCUT TIDAC [facility]; Protocol Last Admin: 03/23/23 12:32 Dose: 8 unit Levothyroxine Sodium (Levothyroxine Sodium 75 Mcg Tablet) 75 mcg PO DAILY@0630 [facility] Last Admin: 03/23/23 05:59 Dose: 75 mcg Lidocaine (Lidocaine 4 % Patch Adh..Patch) 1 patch TRANSDERMA DAILY [facility]; Protocol Last Admin: 03/23/23 08:35 Dose: Not Given Lidocaine (Lidocaine 4 % Patch Adh..Patch) 1 patch TRANSDERMA DAILY [facility]; Protocol Last Admin: 03/23/23 08:35 Dose: Not Given Loperamide HCl (Loperamide Hcl 2 Mg Capsule) 2 mg PO Q6H PRN PRN Reason: diarrhea Last Admin: 03/19/23 17:40 Dose: 2 mg Magnesium Hydroxide (Milk Of Magnesia 30 Ml Oral.Susp) 30 ml PO DAILY PRN PRN Reason: Constipation Magnesium Hydroxide (Milk Of Magnesia 30 Ml Oral.Susp) 30 ml PO DAILY PRN PRN Reason: Constipation Memantine (Memantine Hcl 10 Mg Tablet) 10 mg PO BID [facility] Last Admin: 03/23/23 08:30 Dose: 10 mg Metoprolol Tartrate (Metoprolol Tartrate 25 Mg Tablet) 25 mg PO DAILY [facility]; Protocol Last Admin: 03/23/23 08:30 Dose: 25 mg Quetiapine Fumarate (Quetiapine Fumarate 50 Mg Tablet) 50 mg PO Q6H PRN PRN Reason: agitation Last Admin: 02/26/23 00:10 Dose: 50 mg Sodium Biphosphate/Sodium Phosphate (Sodium Phosphate,[place]-Dibasic 133 Ml Enema) 133 ml [place] DAILY PRN PRN Reason: Constipation Trazodone HCl (Trazodone Hcl 50 Mg Tablet) 50 mg PO BEDTIME PRN PRN Reason: Insomnia Last Admin: 03/22/23 20:36 Dose: 50 mg Valsartan (Valsartan 80 Mg Tablet) 80 mg PO BEDTIME [facility]; Protocol Last Admin: 03/22/23 20:36 Dose: 80 mg Allergies Allergies Allergy/AdvReac Type Severity Reaction Status Date / Time aspirin [ASPIRIN] Allergy Unknown UNKNOWN Verified 01/01/23 09:43 Assessment & Plan Assessment & Plan (1) Major neurocognitive disorder: Status: Acute Code(s): F03.90 - Unspecified dementia, unspecified severity, without behavioral disturbance, psychotic disturbance, mood disturbance, and anxiety (2) Mood disorder: Status: Acute Code(s): F39 - Unspecified mood [affective] disorder Plan Ms. Landis is a 67 year-old woman with hx of Mood Disorder (untreated for most of her life) and neurocognitive disorder who was brought via EMS from [facility] due to increase verbal aggression towards roommate and one of their staff. Pt is known to this keno writer/runner through previous assessment for similar presentation. Pt presents as calmer, she does admit to being verbally abusive, although denies any intent to harm self or others. She does lack the insight into how her behaviors affect others and her relationships with others. This tendency to have difficulty seeing other people's need per daughter has been life long. Pt presents with tendency to be irritable, at times explosive but not physically aggressive. She was started back in September on low dose of seroquel but no further medication adjustments have been made to manage these symptoms, which are disruptive but not life threatening nor at imminent risk of harm to self or others. As consequence of minimal intervention in the community, pt has had more frequent ED visits here and at [facility]. We discussed risks, benefits and alternative treatment options, pt agrees to start mood stabilizer for impulsive, explosive behaviors. We also discussed switching seroquel to risperidone. Pt is orientation has been intact all along. PLAN 01/20 schedule trazodone 50mg po qhs for sleep. 01/21 continue tx. depakote levels scheduled for tomorrow AM with ammonia levels. 01/22 trough depakote level 75, ammonia 41. continue tx. continue tx 01/24 continue tx. 01/25 continue tx. 01/26 continue tx. 01/27: continue current mgmt. 01/28: continue current mgmt. 01/29 continue tx. 01/30 continue tx. 01/31 continues tx-continue monitor bilat LE- doppler did not show DVT. 02/01: No change in medications, continue current plan of care. 02/02: Continue current plan. 02/03: Continue current plans and regimen 02/04 continue tx. 02/05 continue tx. 02/06 continue tx. 02/07 continue tx. 02/09: no changes 02/10 continue tx. 02/11 continue tx. 02/12 continue tx. 02/13 continue tx. 02/14 continue tx. awaiting placement. 02/15: Continue current treatment plan. 02/16: Continue current plan. 02/17 continue tx. 02/18 continue tx. 02/19 continue tx. 02/20 continue tx. 02/21 continue tx. 02/22: Continue current plans and regimen 02/23: Continue current plans and regimen 02/24 continue tx 02/25 continue tx. 02/26 continue tx. 02/27 continue tx. 02/28 continue tx. 03/01 continue same treatment 03/02 continue same treatment 03/03 continue tx. 03/04 continue tx. awaiting placement 03/05 continue tx. 03/06 continue tx. awaiting placement. 03/07 continue tx. 03/08: received oxycodone 5, ativan 1 mg this morning for what appears to be lower back spasm. try flexeril 5 mg one time. otherwise continue current mgmt. 03/09: no c/o back pain today. calm, cooperative. no behavioral issues. asking when she will be discharging. continue current mgmt. 03/10 continue tx. 03/11 continue tx. 03/12 continue tx. 03/13 continue tx. 03/14 continue tx. 03/15: Continue current management and treatment plan. 03/16 continue tx. 03/17- continues tx. will add lidocaine back pain. 03/18 continue tx. 03/19 continue tx. 03/20 continue same treatment 03/21 continue same treatment 03/22 continue tx. 03/23 continue tx. Reason for continued inpatient stay Substantial Risk for: inability to function Time Spent With Patient Time: Total time managing care of this patient today ____ minutes.
[2023-03-23 18:00] VITALS: BP 125/61; PULSE 75; RESP 16; TEMP 36.9; O2SAT 96
[2023-03-23] MEDS: Divalproex Sodium 500 MG TABLET.DR PO (20:58)
[2023-03-23] MEDS: Atorvastatin Calcium 20 MG TABLET PO (20:58)
[2023-03-23] MEDS: Donepezil HCl 10 MG TABLET PO (20:58)
[2023-03-23] MEDS: Valsartan 80 MG TABLET PO (20:59)
[2023-03-23 21:12] LABS: Glucose, Whole Blood 167 mg/dL (60-115)
[2023-03-23] MEDS: Insulin Glargine,Hum.rec.anlog 100 UNIT/ML 10 ML VIAL 47 UNIT SUBCUT (21:25)
[2023-03-24] MEDS: Levothyroxine Sodium 75 MCG TABLET PO (05:37)
[2023-03-24 06:15] LABS: Glucose, Whole Blood 109 mg/dL (60-115)
[2023-03-24 08:10] VITALS: BP 138/65; PULSE 70; RESP 18; TEMP 36.4; O2SAT 96
[2023-03-24] MEDS: Metoprolol Tartrate 25 MG TABLET PO (08:15)
[2023-03-24] MEDS: Escitalopram Oxalate 10 MG TABLET PO (08:15)
[2023-03-24] MEDS: Divalproex Sodium 250 MG TABLET.DR PO (08:15)
[2023-03-24] MEDS: Memantine HCl 10 MG TABLET PO ×2 (08:15→20:51)
[2023-03-24] MEDS: Clopidogrel Bisulfate 75 MG TABLET PO (08:15)
[2023-03-24] MEDS: Lidocaine 4 % Patch ADH..PATCH 1 PATCH TRANSDERMA ×2 (08:17→11:45)
[2023-03-24 11:34] LABS: Glucose, Whole Blood 256 mg/dL (60-115)
[2023-03-24] MEDS: Insulin Lispro 100 UNIT/ML 3 ML VIAL SUBCUT ×2 (12:10→17:04)
[2023-03-24] MEDS: Gabapentin 600 MG TABLET PO ×2 (13:25→20:51)
--- NOTE | 2023-03-24 13:28 | HO.PSYCHPN ---
Subjective Subjective Date of Service: 03/24/23 Reason For Visit: Depression Interim History: Pt upset about peers being loud. She denies pain. She denies SI/HI. Sleeping through the night. No behavioral concerns. She is visible on the unit, attends groups. Review of Systems Review of Systems nothing acute Yes all other systems are reviewed and are negative Mental Status Exam Mental Status Exam Narrative: Appearance: Casual attire, good hygiene, in NAD, ambulating with walker Behavior: cooperative, calm Psychomotor: no agitation noted Speech: clear, normal rate/rhythm/volume, spontaneous TP: linear Mood: good Affect: Calm VH/AH: none expressed Delusions: none expressed Insight/judgment: fair x 2. Memory/cog: alert, oriented x 3. Diagnostics Vital Signs (24Hr): Vital Signs - 24 hr 03/23/23 18:00 03/24/23 08:10 Temperature 98.5 F 97.5 F Pulse Rate 75 70 Respiratory Rate 16 18 Blood Pressure 125/61 138/65 Pulse Oximetry 96 96 Oxygen Delivery Method Room Air Room Air BMI result Body Mass Index 28.6 Labs 01/07/23 17:49 01/07/23 17:49 Labs: Laboratory Results - last 48 hr 03/22/23 03/22/23 03/23/23 16:36 19:36 05:58 POC Glucose 251 H 249 H 78 03/23/23 03/23/23 03/23/23 11:00 16:13 21:08 POC Glucose 273 H 274 H 167 H 03/24/23 03/24/23 06:03 11:21 POC Glucose 109 256 H Imaging Radiology Impressions: ITS Impressions Venous Duplex 01/30/23 16:02 IMPRESSION: No DVT demonstrated in the bilateral lower extremity. Medications Medications Current Medications Acetaminophen (Acetaminophen 325 Mg Tablet) 650 mg PO Q6H PRN PRN Reason: Headache/Pain Mild Scale (1-3) Last Admin: 03/23/23 03:28 Dose: 650 mg Al Hydroxide/Mg Hydroxide (Magnesium Hydrox/Alum Hydrox 30 Ml Oral.Susp) 30 ml PO Q6H PRN PRN Reason: Heartburn/Nausea Last Admin: 02/10/23 22:17 Dose: 30 ml Artificial Tears (Artificial Tears 15 Ml Drops) 1 drop EYE-BOTH Q4H PRN PRN Reason: Dry Eyes Atorvastatin Calcium (Atorvastatin Calcium 20 Mg Tablet) 20 mg PO BEDTIME [facility] Last Admin: 03/23/23 20:58 Dose: 20 mg Bisacodyl (Bisacodyl 10 Mg Supp.Rect) 10 mg [place] DAILY PRN PRN Reason: Constipation Clopidogrel Bisulfate (Clopidogrel Bisulfate 75 Mg Tablet) 75 mg PO DAILY [facility] Last Admin: 03/24/23 08:15 Dose: 75 mg Divalproex Sodium (Divalproex Sodium 500 Mg Tablet.Dr) 500 mg PO BEDTIME [facility] Last Admin: 03/23/23 20:58 Dose: 500 mg Divalproex Sodium (Divalproex Sodium 250 Mg Tablet.Dr) 250 mg PO DAILY [facility] Last Admin: 03/24/23 08:15 Dose: 250 mg Donepezil HCl (Donepezil Hcl 10 Mg Tablet) 10 mg PO BEDTIME [facility] Last Admin: 03/23/23 20:58 Dose: 10 mg Escitalopram Oxalate (Escitalopram Oxalate 10 Mg Tablet) 10 mg PO DAILY [facility] Last Admin: 03/24/23 08:15 Dose: 10 mg Gabapentin (Gabapentin 600 Mg Tablet) 600 mg PO BEDTIME [facility] Last Admin: 03/23/23 20:58 Dose: 600 mg Gabapentin (Gabapentin 600 Mg Tablet) 600 mg PO DAILY@1300 [facility] Last Admin: 03/24/23 13:25 Dose: 600 mg Glucagon (Glucagon Hcl 1 Mg Vial) 1 mg SUBCUT Q20M PRN PRN Reason: BG <70 AND UNRESPONSIVE Glucose (Glucose Gel 15 Gm Gel..Gram.) 15 gm PO Q15M PRN PRN Reason: BG <70 AND RESPONSIVE Last Admin: 01/30/23 03:12 Dose: 15 gm Insulin Glargine (Insulin Glargine,Hum.Rec.Anlog 100 Unit/Ml 10 Ml Vial) 47 unit SUBCUT BEDTIME [facility] Last Admin: 03/23/23 21:25 Dose: 47 unit Insulin Human Lispro (Insulin Lispro 100 Unit/Ml 3 Ml Vial) 0 unit SUBCUT TIDAC [facility]; Protocol Last Admin: 03/24/23 12:10 Dose: 8 unit Levothyroxine Sodium (Levothyroxine Sodium 75 Mcg Tablet) 75 mcg PO DAILY@0630 [facility] Last Admin: 03/24/23 05:37 Dose: 75 mcg Lidocaine (Lidocaine 4 % Patch Adh..Patch) 1 patch TRANSDERMA DAILY [facility]; Protocol Last Admin: 03/24/23 08:17 Dose: 1 patch Lidocaine (Lidocaine 4 % Patch Adh..Patch) 1 patch TRANSDERMA DAILY [facility]; Protocol Last Admin: 03/24/23 11:45 Dose: 1 patch Loperamide HCl (Loperamide Hcl 2 Mg Capsule) 2 mg PO Q6H PRN PRN Reason: diarrhea Last Admin: 03/19/23 17:40 Dose: 2 mg Magnesium Hydroxide (Milk Of Magnesia 30 Ml Oral.Susp) 30 ml PO DAILY PRN PRN Reason: Constipation Magnesium Hydroxide (Milk Of Magnesia 30 Ml Oral.Susp) 30 ml PO DAILY PRN PRN Reason: Constipation Memantine (Memantine Hcl 10 Mg Tablet) 10 mg PO BID [facility] Last Admin: 03/24/23 08:15 Dose: 10 mg Metoprolol Tartrate (Metoprolol Tartrate 25 Mg Tablet) 25 mg PO DAILY [facility]; Protocol Last Admin: 03/24/23 08:15 Dose: 25 mg Quetiapine Fumarate (Quetiapine Fumarate 50 Mg Tablet) 50 mg PO Q6H PRN PRN Reason: agitation Last Admin: 02/26/23 00:10 Dose: 50 mg Sodium Biphosphate/Sodium Phosphate (Sodium Phosphate,[place]-Dibasic 133 Ml Enema) 133 ml [place] DAILY PRN PRN Reason: Constipation Trazodone HCl (Trazodone Hcl 50 Mg Tablet) 50 mg PO BEDTIME PRN PRN Reason: Insomnia Last Admin: 03/22/23 20:36 Dose: 50 mg Valsartan (Valsartan 80 Mg Tablet) 80 mg PO BEDTIME [facility]; Protocol Last Admin: 03/23/23 20:59 Dose: 80 mg Allergies Allergies Allergy/AdvReac Type Severity Reaction Status Date / Time aspirin [ASPIRIN] Allergy Unknown UNKNOWN Verified 01/01/23 09:43 Assessment & Plan Assessment & Plan (1) Major neurocognitive disorder: Status: Acute Code(s): F03.90 - Unspecified dementia, unspecified severity, without behavioral disturbance, psychotic disturbance, mood disturbance, and anxiety (2) Mood disorder: Status: Acute Code(s): F39 - Unspecified mood [affective] disorder Plan Ms. Landis is a 67 year-old woman with hx of Mood Disorder (untreated for most of her life) and neurocognitive disorder who was brought via EMS from [facility] due to increase verbal aggression towards roommate and one of their staff. Pt is known to this commercial lines underwriter through previous assessment for similar presentation. Pt presents as calmer, she does admit to being verbally abusive, although denies any intent to harm self or others. She does lack the insight into how her behaviors affect others and her relationships with others. This tendency to have difficulty seeing other people's need per daughter has been life long. Pt presents with tendency to be irritable, at times explosive but not physically aggressive. She was started back in September on low dose of seroquel but no further medication adjustments have been made to manage these symptoms, which are disruptive but not life threatening nor at imminent risk of harm to self or others. As consequence of minimal intervention in the community, pt has had more frequent ED visits here and at [facility]. We discussed risks, benefits and alternative treatment options, pt agrees to start mood stabilizer for impulsive, explosive behaviors. We also discussed switching seroquel to risperidone. Pt is orientation has been intact all along. PLAN 01/20 schedule trazodone 50mg po qhs for sleep. 01/21 continue tx. depakote levels scheduled for tomorrow AM with ammonia levels. 01/22 trough depakote level 75, ammonia 41. continue tx. continue tx 01/24 continue tx. 01/25 continue tx. 01/26 continue tx. 01/27: continue current mgmt. 01/28: continue current mgmt. 01/29 continue tx. 01/30 continue tx. 01/31 continues tx-continue monitor bilat LE- doppler did not show DVT. 02/01: No change in medications, continue current plan of care. 02/02: Continue current plan. 02/03: Continue current plans and regimen 02/04 continue tx. 02/05 continue tx. 02/06 continue tx. 02/07 continue tx. 02/09: no changes 02/10 continue tx. 02/11 continue tx. 02/12 continue tx. 02/13 continue tx. 02/14 continue tx. awaiting placement. 02/15: Continue current treatment plan. 02/16: Continue current plan. 02/17 continue tx. 02/18 continue tx. 02/19 continue tx. 02/20 continue tx. 02/21 continue tx. 02/22: Continue current plans and regimen 02/23: Continue current plans and regimen 02/24 continue tx 02/25 continue tx. 02/26 continue tx. 02/27 continue tx. 02/28 continue tx. 03/01 continue same treatment 03/02 continue same treatment 03/03 continue tx. 03/04 continue tx. awaiting placement 03/05 continue tx. 03/06 continue tx. awaiting placement. 03/07 continue tx. 03/08: received oxycodone 5, ativan 1 mg this morning for what appears to be lower back spasm. try flexeril 5 mg one time. otherwise continue current mgmt. 03/09: no c/o back pain today. calm, cooperative. no behavioral issues. asking when she will be discharging. continue current mgmt. 03/10 continue tx. 03/11 continue tx. 03/12 continue tx. 03/13 continue tx. 03/14 continue tx. 03/15: Continue current management and treatment plan. 03/16 continue tx. 03/17- continues tx. will add lidocaine back pain. 03/18 continue tx. 03/19 continue tx. 03/20 continue same treatment 03/21 continue same treatment 03/22 continue tx. 03/23 continue tx. 03/24 continue tx. Reason for continued inpatient stay Substantial Risk for: inability to function Time Spent With Patient Time: Total time managing care of this patient today ____ minutes.
[2023-03-24 16:25] LABS: Glucose, Whole Blood 167 mg/dL (60-115)
[2023-03-24 20:11] VITALS: BP 164/70; PULSE 73; RESP 16; TEMP 36.4; O2SAT 97
[2023-03-24] MEDS: Valsartan 80 MG TABLET PO (20:50)
[2023-03-24 20:51] LABS: Glucose, Whole Blood 194 mg/dL (60-115)
[2023-03-24] MEDS: Divalproex Sodium 500 MG TABLET.DR PO (20:51)
[2023-03-24] MEDS: Donepezil HCl 10 MG TABLET PO (20:51)
[2023-03-24] MEDS: Atorvastatin Calcium 20 MG TABLET PO (20:51)
[2023-03-24] MEDS: Insulin Glargine,Hum.rec.anlog 100 UNIT/ML 10 ML VIAL 47 UNIT SUBCUT (20:56)
[2023-03-25] MEDS: Levothyroxine Sodium 75 MCG TABLET PO (05:50)
[2023-03-25 06:00] VITALS: BP 142/77; PULSE 71; RESP 16; TEMP 36.4; O2SAT 97
[2023-03-25 06:32] LABS: Glucose, Whole Blood 91 mg/dL (60-115)
[2023-03-25] MEDS: Metoprolol Tartrate 25 MG TABLET PO (08:26)
[2023-03-25] MEDS: Divalproex Sodium 250 MG TABLET.DR PO (08:26)
[2023-03-25] MEDS: Escitalopram Oxalate 10 MG TABLET PO (08:26)
[2023-03-25] MEDS: Clopidogrel Bisulfate 75 MG TABLET PO (08:26)
[2023-03-25] MEDS: Memantine HCl 10 MG TABLET PO ×2 (08:26→20:53)
[2023-03-25] MEDS: Lidocaine 4 % Patch ADH..PATCH 1 PATCH TRANSDERMA ×2 (08:28)
[2023-03-25] MEDS: Acetaminophen 325 MG TABLET 650 MG PO (08:31)
--- NOTE | 2023-03-25 11:08 | P.PNPSI_ITS ---
Subjective Subjective Date of Service: 03/25/23 Reason For Visit: Depression Subjective Notes: Conditional Voluntary Interim History: Pt upset about limited options in her menu due to DM diet. will change to regular diet and monitor BS. She denies pain. She denies SI/HI. Sleeping through the night. No behavioral concerns. She is visible on the unit, attends groups. Review of Systems Review of Systems nothing acute Yes all other systems are reviewed and are negative Mental Status Exam Mental Status Exam Narrative: Appearance: Casual attire, good hygiene, in NAD, ambulating with walker Behavior: cooperative, calm Psychomotor: no agitation noted Speech: clear, normal rate/rhythm/volume, spontaneous TP: linear Mood: good Affect: Calm VH/AH: none expressed Delusions: none expressed Insight/judgment: fair x 2. Memory/cog: alert, oriented x 3. Diagnostics Vital Signs (24Hr): Vital Signs - 24 hr 03/24/23 20:11 03/25/23 06:00 Temperature 97.6 F 97.5 F Pulse Rate 73 71 Respiratory Rate 16 16 Blood Pressure 164/70 H 142/77 H Pulse Oximetry 97 97 Oxygen Delivery Method Room Air Room Air BMI result Body Mass Index 28.6 Labs 01/07/23 17:49 01/07/23 17:49 Labs: Laboratory Results - last 48 hr 03/23/23 03/23/23 03/23/23 11:00 16:13 21:08 POC Glucose 273 H 274 H 167 H 03/24/23 03/24/23 03/24/23 06:03 11:21 16:20 POC Glucose 109 256 H 167 H 03/24/23 03/25/23 20:46 05:31 POC Glucose 194 H 91 Imaging Radiology Impressions: ITS Impressions Venous Duplex 01/30/23 16:02 IMPRESSION: No DVT demonstrated in the bilateral lower extremity. Medications Medications Current Medications Acetaminophen (Acetaminophen 325 Mg Tablet) 650 mg PO Q6H PRN PRN Reason: Headache/Pain Mild Scale (1-3) Last Admin: 03/25/23 08:31 Dose: 650 mg Al Hydroxide/Mg Hydroxide (Magnesium Hydrox/Alum Hydrox 30 Ml Oral.Susp) 30 ml PO Q6H PRN PRN Reason: Heartburn/Nausea Last Admin: 02/10/23 22:17 Dose: 30 ml Artificial Tears (Artificial Tears 15 Ml Drops) 1 drop EYE-BOTH Q4H PRN PRN Reason: Dry Eyes Atorvastatin Calcium (Atorvastatin Calcium 20 Mg Tablet) 20 mg PO BEDTIME [facility] Last Admin: 03/24/23 20:51 Dose: 20 mg Bisacodyl (Bisacodyl 10 Mg Supp.Rect) 10 mg [place] DAILY PRN PRN Reason: Constipation Clopidogrel Bisulfate (Clopidogrel Bisulfate 75 Mg Tablet) 75 mg PO DAILY [facility] Last Admin: 03/25/23 08:26 Dose: 75 mg Divalproex Sodium (Divalproex Sodium 500 Mg Tablet.Dr) 500 mg PO BEDTIME [facility] Last Admin: 03/24/23 20:51 Dose: 500 mg Divalproex Sodium (Divalproex Sodium 250 Mg Tablet.Dr) 250 mg PO DAILY [facility] Last Admin: 03/25/23 08:26 Dose: 250 mg Donepezil HCl (Donepezil Hcl 10 Mg Tablet) 10 mg PO BEDTIME [facility] Last Admin: 03/24/23 20:51 Dose: 10 mg Escitalopram Oxalate (Escitalopram Oxalate 10 Mg Tablet) 10 mg PO DAILY [facility] Last Admin: 03/25/23 08:26 Dose: 10 mg Gabapentin (Gabapentin 600 Mg Tablet) 600 mg PO BEDTIME [facility] Last Admin: 03/24/23 20:51 Dose: 600 mg Gabapentin (Gabapentin 600 Mg Tablet) 600 mg PO DAILY@1300 [facility] Last Admin: 03/24/23 13:25 Dose: 600 mg Glucagon (Glucagon Hcl 1 Mg Vial) 1 mg SUBCUT Q20M PRN PRN Reason: BG <70 AND UNRESPONSIVE Glucose (Glucose Gel 15 Gm Gel..Gram.) 15 gm PO Q15M PRN PRN Reason: BG <70 AND RESPONSIVE Last Admin: 01/30/23 03:12 Dose: 15 gm Insulin Glargine (Insulin Glargine,Hum.Rec.Anlog 100 Unit/Ml 10 Ml Vial) 47 unit SUBCUT BEDTIME [facility] Last Admin: 03/24/23 20:56 Dose: 47 unit Insulin Human Lispro (Insulin Lispro 100 Unit/Ml 3 Ml Vial) 0 unit SUBCUT TIDAC [facility]; Protocol Last Admin: 03/25/23 08:25 Dose: Not Given Levothyroxine Sodium (Levothyroxine Sodium 75 Mcg Tablet) 75 mcg PO DAILY@0630 [facility] Last Admin: 03/25/23 05:50 Dose: 75 mcg Lidocaine (Lidocaine 4 % Patch Adh..Patch) 1 patch TRANSDERMA DAILY [facility]; Protocol Last Admin: 03/25/23 08:28 Dose: 1 patch Lidocaine (Lidocaine 4 % Patch Adh..Patch) 1 patch TRANSDERMA DAILY [facility]; Protocol Last Admin: 03/25/23 08:28 Dose: 1 patch Loperamide HCl (Loperamide Hcl 2 Mg Capsule) 2 mg PO Q6H PRN PRN Reason: diarrhea Last Admin: 03/19/23 17:40 Dose: 2 mg Magnesium Hydroxide (Milk Of Magnesia 30 Ml Oral.Susp) 30 ml PO DAILY PRN PRN Reason: Constipation Magnesium Hydroxide (Milk Of Magnesia 30 Ml Oral.Susp) 30 ml PO DAILY PRN PRN Reason: Constipation Memantine (Memantine Hcl 10 Mg Tablet) 10 mg PO BID [facility] Last Admin: 03/25/23 08:26 Dose: 10 mg Metoprolol Tartrate (Metoprolol Tartrate 25 Mg Tablet) 25 mg PO DAILY [facility]; Protocol Last Admin: 03/25/23 08:26 Dose: 25 mg Quetiapine Fumarate (Quetiapine Fumarate 50 Mg Tablet) 50 mg PO Q6H PRN PRN Reason: agitation Last Admin: 02/26/23 00:10 Dose: 50 mg Sodium Biphosphate/Sodium Phosphate (Sodium Phosphate,Ross-Dibasic 133 Ml Enema) 133 ml [place] DAILY PRN PRN Reason: Constipation Trazodone HCl (Trazodone Hcl 50 Mg Tablet) 50 mg PO BEDTIME PRN PRN Reason: Insomnia Last Admin: 03/22/23 20:36 Dose: 50 mg Valsartan (Valsartan 80 Mg Tablet) 80 mg PO BEDTIME [facility]; Protocol Last Admin: 03/24/23 20:50 Dose: 80 mg Allergies Allergies Allergy/AdvReac Type Severity Reaction Status Date / Time aspirin [ASPIRIN] Allergy Unknown UNKNOWN Verified 01/01/23 09:43 Assessment & Plan Assessment & Plan (1) Major neurocognitive disorder: Status: Acute Code(s): F03.90 - Unspecified dementia, unspecified severity, without behavioral disturbance, psychotic disturbance, mood disturbance, and anxiety (2) Mood disorder: Status: Acute Code(s): F39 - Unspecified mood [affective] disorder Plan Ms. Landis is a 67 year-old woman with hx of Mood Disorder (untreated for most of her life) and neurocognitive disorder who was brought via EMS from [facility] due to increase verbal aggression towards roommate and one of their staff. Pt is known to this mortgage underwriter through previous assessment for similar presentation. Pt presents as calmer, she does admit to being verbally abusive, although denies any intent to harm self or others. She does lack the insight into how her behaviors affect others and her relationships with others. This tendency to have difficulty seeing other people's need per daughter has been life long. Pt presents with tendency to be irritable, at times explosive but not physically aggressive. She was started back in September on low dose of seroquel but no further medication adjustments have been made to manage these symptoms, which are disruptive but not life threatening nor at imminent risk of harm to self or others. As consequence of minimal intervention in the community, pt has had more frequent ED visits here and at [facility]. We discussed risks, benefits and alternative treatment options, pt agrees to start mood stabilizer for impulsive, explosive behaviors. We also discussed switching seroquel to risperidone. Pt is orientation has been intact all along. PLAN 01/20 schedule trazodone 50mg po qhs for sleep. 01/21 continue tx. depakote levels scheduled for tomorrow AM with ammonia levels. 01/22 trough depakote level 75, ammonia 41. continue tx. continue tx 01/24 continue tx. 01/25 continue tx. 01/26 continue tx. 01/27: continue current mgmt. 01/28: continue current mgmt. 01/29 continue tx. 01/30 continue tx. 01/31 continues tx-continue monitor bilat LE- doppler did not show DVT. 02/01: No change in medications, continue current plan of care. 02/02: Continue current plan. 02/03: Continue current plans and regimen 02/04 continue tx. 02/05 continue tx. 02/06 continue tx. 02/07 continue tx. 02/09: no changes 02/10 continue tx. 02/11 continue tx. 02/12 continue tx. 02/13 continue tx. 02/14 continue tx. awaiting placement. 02/15: Continue current treatment plan. 02/16: Continue current plan. 02/17 continue tx. 02/18 continue tx. 02/19 continue tx. 02/20 continue tx. 02/21 continue tx. 02/22: Continue current plans and regimen 02/23: Continue current plans and regimen 02/24 continue tx 02/25 continue tx. 02/26 continue tx. 02/27 continue tx. 02/28 continue tx. 03/01 continue same treatment 03/02 continue same treatment 03/03 continue tx. 03/04 continue tx. awaiting placement 03/05 continue tx. 03/06 continue tx. awaiting placement. 03/07 continue tx. 03/08: received oxycodone 5, ativan 1 mg this morning for what appears to be lower back spasm. try flexeril 5 mg one time. otherwise continue current mgmt. 03/09: no c/o back pain today. calm, cooperative. no behavioral issues. asking when she will be discharging. continue current mgmt. 03/10 continue tx. 03/11 continue tx. 03/12 continue tx. 03/13 continue tx. 03/14 continue tx. 03/15: Continue current management and treatment plan. 03/16 continue tx. 03/17- continues tx. will add lidocaine back pain. 03/18 continue tx. 03/19 continue tx. 03/20 continue same treatment 03/21 continue same treatment 03/22 continue tx. 03/23 continue tx. 03/24 continue tx. 03/25 continue tx. Reason for continued inpatient stay Substantial Risk for: inability to function Time Spent With Patient Time: Total time managing care of this patient today ____ minutes.
[2023-03-25 11:19] LABS: Glucose, Whole Blood 284 mg/dL (60-115)
[2023-03-25] MEDS: Insulin Lispro 100 UNIT/ML 3 ML VIAL SUBCUT ×2 (11:29→16:35)
[2023-03-25] MEDS: Gabapentin 600 MG TABLET PO ×2 (12:32→20:53)
[2023-03-25 16:07] LABS: Glucose, Whole Blood 190 mg/dL (60-115)
[2023-03-25 18:00] VITALS: BP 142/76; PULSE 62; RESP 16; TEMP 36.2; O2SAT 97
[2023-03-25 20:21] LABS: Glucose, Whole Blood 163 mg/dL (60-115)
[2023-03-25] MEDS: Atorvastatin Calcium 20 MG TABLET PO (20:53)
[2023-03-25] MEDS: Valsartan 80 MG TABLET PO (20:53)
[2023-03-25] MEDS: Divalproex Sodium 500 MG TABLET.DR PO (20:53)
[2023-03-25] MEDS: Donepezil HCl 10 MG TABLET PO (20:53)
[2023-03-25] MEDS: Insulin Glargine,Hum.rec.anlog 100 UNIT/ML 10 ML VIAL 47 UNIT SUBCUT (21:04)
[2023-03-26] MEDS: Acetaminophen 325 MG TABLET 650 MG PO ×2 (00:39→08:56)
[2023-03-26] MEDS: traZODone HCL 50 MG TABLET PO (00:40)
[2023-03-26] MEDS: Levothyroxine Sodium 75 MCG TABLET PO (06:40)
[2023-03-26 06:56] LABS: Glucose, Whole Blood 113 mg/dL (60-115)
[2023-03-26 08:00] VITALS: BP 114/55; PULSE 68; RESP 16; TEMP 36.1; O2SAT 95
[2023-03-26] MEDS: Clopidogrel Bisulfate 75 MG TABLET PO (08:57)
[2023-03-26] MEDS: Memantine HCl 10 MG TABLET PO ×2 (08:57→20:49)
[2023-03-26] MEDS: Divalproex Sodium 250 MG TABLET.DR PO (08:57)
[2023-03-26] MEDS: Escitalopram Oxalate 10 MG TABLET PO (08:57)
[2023-03-26] MEDS: Metoprolol Tartrate 25 MG TABLET PO (08:57)
[2023-03-26] MEDS: Lidocaine 4 % Patch ADH..PATCH 1 PATCH TRANSDERMA ×2 (08:58→08:59)
[2023-03-26 11:35] LABS: Glucose, Whole Blood 388 mg/dL (60-115)
[2023-03-26] MEDS: Insulin Lispro 100 UNIT/ML 3 ML VIAL SUBCUT ×2 (11:44→16:27)
[2023-03-26] MEDS: Gabapentin 600 MG TABLET PO ×2 (14:08→20:49)
[2023-03-26 16:13] LABS: Glucose, Whole Blood 186 mg/dL (60-115)
--- NOTE | 2023-03-26 19:06 | P.PNPSI_ITS ---
Subjective Subjective Date of Service: 03/26/23 Reason For Visit: Depression Subjective Notes: Conditional Voluntary Interim History: Pt less irritable today. She reports shei s doing well. She attended assigned groups. She denies pain. She denies SI/HI. Sleeping through the night. No behavioral concerns. She is visible on the unit, attends groups. Review of Systems Review of Systems nothing acute Yes all other systems are reviewed and are negative Mental Status Exam Mental Status Exam Narrative: Appearance: Casual attire, good hygiene, in NAD, ambulating with walker Behavior: cooperative, calm Psychomotor: no agitation noted Speech: clear, normal rate/rhythm/volume, spontaneous TP: linear Mood: good Affect: Calm VH/AH: none expressed Delusions: none expressed Insight/judgment: fair x 2. Memory/cog: alert, oriented x 3. Diagnostics Vital Signs (24Hr): Vital Signs - 24 hr 03/26/23 08:00 Temperature 96.9 F Pulse Rate 68 Respiratory Rate 16 Blood Pressure 114/55 L Pulse Oximetry 95 Oxygen Delivery Method Room Air BMI result Body Mass Index 28.6 Labs 01/07/23 17:49 01/07/23 17:49 Labs: Laboratory Results - last 48 hr 03/24/23 03/25/23 03/25/23 20:46 05:31 11:14 POC Glucose 194 H 91 284 H 03/25/23 03/25/23 03/26/23 15:44 20:02 06:40 POC Glucose 190 H 163 H 113 03/26/23 03/26/23 11:20 16:08 POC Glucose 388 H* 186 H Imaging Radiology Impressions: ITS Impressions Venous Duplex 01/30/23 16:02 IMPRESSION: No DVT demonstrated in the bilateral lower extremity. Medications Medications Current Medications Acetaminophen (Acetaminophen 325 Mg Tablet) 650 mg PO Q6H PRN PRN Reason: Headache/Pain Mild Scale (1-3) Last Admin: 03/26/23 08:56 Dose: 650 mg Al Hydroxide/Mg Hydroxide (Magnesium Hydrox/Alum Hydrox 30 Ml Oral.Susp) 30 ml PO Q6H PRN PRN Reason: Heartburn/Nausea Last Admin: 02/10/23 22:17 Dose: 30 ml Artificial Tears (Artificial Tears 15 Ml Drops) 1 drop EYE-BOTH Q4H PRN PRN Reason: Dry Eyes Atorvastatin Calcium (Atorvastatin Calcium 20 Mg Tablet) 20 mg PO BEDTIME [facility] Last Admin: 03/25/23 20:53 Dose: 20 mg Bisacodyl (Bisacodyl 10 Mg Supp.Rect) 10 mg [place] DAILY PRN PRN Reason: Constipation Clopidogrel Bisulfate (Clopidogrel Bisulfate 75 Mg Tablet) 75 mg PO DAILY [facility] Last Admin: 03/26/23 08:57 Dose: 75 mg Divalproex Sodium (Divalproex Sodium 500 Mg Tablet.Dr) 500 mg PO BEDTIME [facility] Last Admin: 03/25/23 20:53 Dose: 500 mg Divalproex Sodium (Divalproex Sodium 250 Mg Tablet.Dr) 250 mg PO DAILY [facility] Last Admin: 03/26/23 08:57 Dose: 250 mg Donepezil HCl (Donepezil Hcl 10 Mg Tablet) 10 mg PO BEDTIME [facility] Last Admin: 03/25/23 20:53 Dose: 10 mg Escitalopram Oxalate (Escitalopram Oxalate 10 Mg Tablet) 10 mg PO DAILY [facility] Last Admin: 03/26/23 08:57 Dose: 10 mg Gabapentin (Gabapentin 600 Mg Tablet) 600 mg PO BEDTIME [facility] Last Admin: 03/25/23 20:53 Dose: 600 mg Gabapentin (Gabapentin 600 Mg Tablet) 600 mg PO DAILY@1300 [facility] Last Admin: 03/26/23 14:08 Dose: 600 mg Glucagon (Glucagon Hcl 1 Mg Vial) 1 mg SUBCUT Q20M PRN PRN Reason: BG <70 AND UNRESPONSIVE Glucose (Glucose Gel 15 Gm Gel..Gram.) 15 gm PO Q15M PRN PRN Reason: BG <70 AND RESPONSIVE Last Admin: 01/30/23 03:12 Dose: 15 gm Insulin Glargine (Insulin Glargine,Hum.Rec.Anlog 100 Unit/Ml 10 Ml Vial) 47 unit SUBCUT BEDTIME [facility] Last Admin: 03/25/23 21:04 Dose: 47 unit Insulin Human Lispro (Insulin Lispro 100 Unit/Ml 3 Ml Vial) 0 unit SUBCUT TIDAC [facility]; Protocol Last Admin: 03/26/23 16:27 Dose: 2 unit Levothyroxine Sodium (Levothyroxine Sodium 75 Mcg Tablet) 75 mcg PO DAILY@0630 [facility] Last Admin: 03/26/23 06:40 Dose: 75 mcg Lidocaine (Lidocaine 4 % Patch Adh..Patch) 1 patch TRANSDERMA DAILY [facility]; Protocol Last Admin: 03/26/23 08:59 Dose: 1 patch Lidocaine (Lidocaine 4 % Patch Adh..Patch) 1 patch TRANSDERMA DAILY [facility]; Protocol Last Admin: 03/26/23 08:58 Dose: 1 patch Loperamide HCl (Loperamide Hcl 2 Mg Capsule) 2 mg PO Q6H PRN PRN Reason: diarrhea Last Admin: 03/19/23 17:40 Dose: 2 mg Magnesium Hydroxide (Milk Of Magnesia 30 Ml Oral.Susp) 30 ml PO DAILY PRN PRN Reason: Constipation Magnesium Hydroxide (Milk Of Magnesia 30 Ml Oral.Susp) 30 ml PO DAILY PRN PRN Reason: Constipation Memantine (Memantine Hcl 10 Mg Tablet) 10 mg PO BID [facility] Last Admin: 03/26/23 08:57 Dose: 10 mg Metoprolol Tartrate (Metoprolol Tartrate 25 Mg Tablet) 25 mg PO DAILY [facility]; Protocol Last Admin: 03/26/23 08:57 Dose: 25 mg Quetiapine Fumarate (Quetiapine Fumarate 50 Mg Tablet) 50 mg PO Q6H PRN PRN Reason: agitation Last Admin: 02/26/23 00:10 Dose: 50 mg Sodium Biphosphate/Sodium Phosphate (Sodium Phosphate,Morgan-Dibasic 133 Ml Enema) 133 ml [place] DAILY PRN PRN Reason: Constipation Trazodone HCl (Trazodone Hcl 50 Mg Tablet) 50 mg PO BEDTIME PRN PRN Reason: Insomnia Last Admin: 03/26/23 00:40 Dose: 50 mg Valsartan (Valsartan 80 Mg Tablet) 80 mg PO BEDTIME [facility]; Protocol Last Admin: 03/25/23 20:53 Dose: 80 mg Allergies Allergies Allergy/AdvReac Type Severity Reaction Status Date / Time aspirin [ASPIRIN] Allergy Unknown UNKNOWN Verified 01/01/23 09:43 Assessment & Plan Assessment & Plan (1) Major neurocognitive disorder: Status: Acute Code(s): F03.90 - Unspecified dementia, unspecified severity, without behavioral disturbance, psychotic disturbance, mood disturbance, and anxiety (2) Mood disorder: Status: Acute Code(s): F39 - Unspecified mood [affective] disorder Plan Ms. Landis is a 67 year-old woman with hx of Mood Disorder (untreated for most of her life) and neurocognitive disorder who was brought via EMS from [facility] due to increase verbal aggression towards roommate and one of their staff. Pt is known to this instructional writer through previous assessment for similar presentation. Pt presents as calmer, she does admit to being verbally abusive, although denies any intent to harm self or others. She does lack the insight into how her behaviors affect others and her relationships with others. This tendency to have difficulty seeing other people's need per daughter has been life long. Pt presents with tendency to be irritable, at times explosive but not physically aggressive. She was started back in September on low dose of seroquel but no further medication adjustments have been made to manage these symptoms, which are disruptive but not life threatening nor at imminent risk of harm to self or others. As consequence of minimal intervention in the community, pt has had more frequent ED visits here and at [facility]. We discussed risks, benefits and alternative treatment options, pt agrees to start mood stabilizer for impulsive, explosive behaviors. We also discussed switching seroquel to risperidone. Pt is orientation has been intact all along. PLAN 01/20 schedule trazodone 50mg po qhs for sleep. 01/21 continue tx. depakote levels scheduled for tomorrow AM with ammonia levels. 01/22 trough depakote level 75, ammonia 41. continue tx. continue tx 01/24 continue tx. 01/25 continue tx. 01/26 continue tx. 01/27: continue current mgmt. 01/28: continue current mgmt. 01/29 continue tx. 01/30 continue tx. 01/31 continues tx-continue monitor bilat LE- doppler did not show DVT. 02/01: No change in medications, continue current plan of care. 02/02: Continue current plan. 02/03: Continue current plans and regimen 02/04 continue tx. 02/05 continue tx. 02/06 continue tx. 02/07 continue tx. 02/09: no changes 02/10 continue tx. 02/11 continue tx. 02/12 continue tx. 02/13 continue tx. 02/14 continue tx. awaiting placement. 02/15: Continue current treatment plan. 02/16: Continue current plan. 02/17 continue tx. 02/18 continue tx. 02/19 continue tx. 02/20 continue tx. 02/21 continue tx. 02/22: Continue current plans and regimen 02/23: Continue current plans and regimen 02/24 continue tx 02/25 continue tx. 02/26 continue tx. 02/27 continue tx. 02/28 continue tx. 03/01 continue same treatment 03/02 continue same treatment 03/03 continue tx. 03/04 continue tx. awaiting placement 03/05 continue tx. 03/06 continue tx. awaiting placement. 03/07 continue tx. 03/08: received oxycodone 5, ativan 1 mg this morning for what appears to be lower back spasm. try flexeril 5 mg one time. otherwise continue current mgmt. 03/09: no c/o back pain today. calm, cooperative. no behavioral issues. asking when she will be discharging. continue current mgmt. 03/10 continue tx. 03/11 continue tx. 03/12 continue tx. 03/13 continue tx. 03/14 continue tx. 03/15: Continue current management and treatment plan. 03/16 continue tx. 03/17- continues tx. will add lidocaine back pain. 03/18 continue tx. 03/19 continue tx. 03/20 continue same treatment 03/21 continue same treatment 03/22 continue tx. 03/23 continue tx. 03/24 continue tx. 03/25 continue tx. 03/26 continue tx. 03/27 continue tx. Reason for continued inpatient stay Substantial Risk for: inability to function Time Spent With Patient Time: Total time managing care of this patient today ____ minutes.
[2023-03-26 20:05] VITALS: BP 133/61; PULSE 67; RESP 16; TEMP 36.1; O2SAT 96
[2023-03-26] MEDS: Valsartan 80 MG TABLET PO (20:49)
[2023-03-26] MEDS: Atorvastatin Calcium 20 MG TABLET PO (20:49)
[2023-03-26] MEDS: Insulin Glargine,Hum.rec.anlog 100 UNIT/ML 10 ML VIAL 47 UNIT SUBCUT (20:49)
[2023-03-26] MEDS: Divalproex Sodium 500 MG TABLET.DR PO (20:49)
[2023-03-26] MEDS: Donepezil HCl 10 MG TABLET PO (20:49)
[2023-03-26 21:08] LABS: Glucose, Whole Blood 221 mg/dL (60-115)
[2023-03-27] MEDS: Levothyroxine Sodium 75 MCG TABLET PO (06:27)
[2023-03-27 06:34] LABS: Glucose, Whole Blood 178 mg/dL (60-115)
[2023-03-27 07:00] VITALS: BMI 28.4
[2023-03-27 08:00] VITALS: BP 143/65; PULSE 70; RESP 18; TEMP 36.5; O2SAT 97
--- NOTE | 2023-03-27 08:50 | P.PNPSI_ITS ---
Subjective Subjective Date of Service: 03/27/23 Reason For Visit: Depression Subjective Notes: Conditional Voluntary Interim History: Pt less irritable today. She reports she is doing well. She attended assigned groups. She denies pain. She denies SI/HI. Sleeping through the night. No behavioral concerns. She is visible on the unit, attends groups. Medication Compliance: Yes Side effects from medications: No Review of Systems Review of Systems nothing acute Yes all other systems are reviewed and are negative Mental Status Exam Mental Status Exam Narrative: Appearance: Casual attire, good hygiene, in NAD, ambulating with walker Behavior: cooperative, calm Psychomotor: no agitation noted Speech: clear, normal rate/rhythm/volume, spontaneous TP: linear Mood: good Affect: Calm VH/AH: none expressed Delusions: none expressed Insight/judgment: fair x 2. Memory/cog: alert, oriented x 3. Diagnostics Vital Signs (24Hr): Vital Signs - 24 hr 03/26/23 20:05 Temperature 97 F Pulse Rate 67 Respiratory Rate 16 Blood Pressure 133/61 Pulse Oximetry 96 Oxygen Delivery Method Room Air BMI result Body Mass Index 28.6 Labs 01/07/23 17:49 01/07/23 17:49 Labs: Laboratory Results - last 48 hr 03/25/23 03/25/23 03/25/23 11:14 15:44 20:02 POC Glucose 284 H 190 H 163 H 03/26/23 03/26/23 03/26/23 06:40 11:20 16:08 POC Glucose 113 388 H* 186 H 03/26/23 03/27/23 20:14 06:27 POC Glucose 221 H 178 H Imaging Radiology Impressions: ITS Impressions Venous Duplex 01/30/23 16:02 IMPRESSION: No DVT demonstrated in the bilateral lower extremity. Medications Medications Current Medications Acetaminophen (Acetaminophen 325 Mg Tablet) 650 mg PO Q6H PRN PRN Reason: Headache/Pain Mild Scale (1-3) Last Admin: 03/26/23 08:56 Dose: 650 mg Al Hydroxide/Mg Hydroxide (Magnesium Hydrox/Alum Hydrox 30 Ml Oral.Susp) 30 ml PO Q6H PRN PRN Reason: Heartburn/Nausea Last Admin: 02/10/23 22:17 Dose: 30 ml Artificial Tears (Artificial Tears 15 Ml Drops) 1 drop EYE-BOTH Q4H PRN PRN Reason: Dry Eyes Atorvastatin Calcium (Atorvastatin Calcium 20 Mg Tablet) 20 mg PO BEDTIME [facility] Last Admin: 03/26/23 20:49 Dose: 20 mg Bisacodyl (Bisacodyl 10 Mg Supp.Rect) 10 mg NE DAILY PRN PRN Reason: Constipation Clopidogrel Bisulfate (Clopidogrel Bisulfate 75 Mg Tablet) 75 mg PO DAILY [facility] Last Admin: 03/26/23 08:57 Dose: 75 mg Divalproex Sodium (Divalproex Sodium 500 Mg Tablet.) 500 mg PO BEDTIME [facility] Last Admin: 03/26/23 20:49 Dose: 500 mg Divalproex Sodium (Divalproex Sodium 250 Mg Tablet.) 250 mg PO DAILY [facility] Last Admin: 03/26/23 08:57 Dose: 250 mg Donepezil HCl (Donepezil Hcl 10 Mg Tablet) 10 mg PO BEDTIME [facility] Last Admin: 03/26/23 20:49 Dose: 10 mg Escitalopram Oxalate (Escitalopram Oxalate 10 Mg Tablet) 10 mg PO DAILY [facility] Last Admin: 03/26/23 08:57 Dose: 10 mg Gabapentin (Gabapentin 600 Mg Tablet) 600 mg PO BEDTIME [facility] Last Admin: 03/26/23 20:49 Dose: 600 mg Gabapentin (Gabapentin 600 Mg Tablet) 600 mg PO DAILY@1300 [facility] Last Admin: 03/26/23 14:08 Dose: 600 mg Glucagon (Glucagon Hcl 1 Mg Vial) 1 mg SUBCUT Q20M PRN PRN Reason: BG <70 AND UNRESPONSIVE Glucose (Glucose Gel 15 Gm Gel..Gram.) 15 gm PO Q15M PRN PRN Reason: BG <70 AND RESPONSIVE Last Admin: 01/30/23 03:12 Dose: 15 gm Insulin Glargine (Insulin Glargine,Hum.Rec.Anlog 100 Unit/Ml 10 Ml Vial) 47 unit SUBCUT BEDTIME [facility] Last Admin: 03/26/23 20:49 Dose: 47 unit Insulin Human Lispro (Insulin Lispro 100 Unit/Ml 3 Ml Vial) 0 unit SUBCUT TIDAC [facility]; Protocol Last Admin: 03/26/23 16:27 Dose: 2 unit Levothyroxine Sodium (Levothyroxine Sodium 75 Mcg Tablet) 75 mcg PO DAILY@0630 [facility] Last Admin: 03/27/23 06:27 Dose: 75 mcg Lidocaine (Lidocaine 4 % Patch Adh..Patch) 1 patch TRANSDERMA DAILY [facility]; Protocol Last Admin: 03/26/23 08:59 Dose: 1 patch Lidocaine (Lidocaine 4 % Patch Adh..Patch) 1 patch TRANSDERMA DAILY [facility]; Protocol Last Admin: 03/26/23 08:58 Dose: 1 patch Loperamide HCl (Loperamide Hcl 2 Mg Capsule) 2 mg PO Q6H PRN PRN Reason: diarrhea Last Admin: 03/19/23 17:40 Dose: 2 mg Magnesium Hydroxide (Milk Of Magnesia 30 Ml Oral.Susp) 30 ml PO DAILY PRN PRN Reason: Constipation Magnesium Hydroxide (Milk Of Magnesia 30 Ml Oral.Susp) 30 ml PO DAILY PRN PRN Reason: Constipation Memantine (Memantine Hcl 10 Mg Tablet) 10 mg PO BID [facility] Last Admin: 03/26/23 20:49 Dose: 10 mg Metoprolol Tartrate (Metoprolol Tartrate 25 Mg Tablet) 25 mg PO DAILY [facility]; Protocol Last Admin: 03/26/23 08:57 Dose: 25 mg Quetiapine Fumarate (Quetiapine Fumarate 50 Mg Tablet) 50 mg PO Q6H PRN PRN Reason: agitation Last Admin: 02/26/23 00:10 Dose: 50 mg Sodium Biphosphate/Sodium Phosphate (Sodium Phosphate,[place]-Dibasic 133 Ml Enema) 133 ml NE DAILY PRN PRN Reason: Constipation Trazodone HCl (Trazodone Hcl 50 Mg Tablet) 50 mg PO BEDTIME PRN PRN Reason: Insomnia Last Admin: 03/26/23 00:40 Dose: 50 mg Valsartan (Valsartan 80 Mg Tablet) 80 mg PO BEDTIME [facility]; Protocol Last Admin: 03/26/23 20:49 Dose: 80 mg Allergies Allergies Allergy/AdvReac Type Severity Reaction Status Date / Time aspirin [ASPIRIN] Allergy Unknown UNKNOWN Verified 01/01/23 09:43 Assessment & Plan Assessment & Plan (1) Major neurocognitive disorder: Status: Acute Code(s): F03.90 - Unspecified dementia, unspecified severity, without behavioral disturbance, psychotic disturbance, mood disturbance, and anxiety (2) Mood disorder: Status: Acute Code(s): F39 - Unspecified mood [affective] disorder Plan Ms. Landis is a 67 year-old woman with hx of Mood Disorder (untreated for most of her life) and neurocognitive disorder who was brought via EMS from [facility] due to increase verbal aggression towards roommate and one of their staff. Pt is known to this caption writer through previous assessment for similar presentation. Pt presents as calmer, she does admit to being verbally abusive, although denies any intent to harm self or others. She does lack the insight into how her behaviors affect others and her relationships with others. This tendency to have difficulty seeing other people's need per daughter has been life long. Pt presents with tendency to be irritable, at times explosive but not physically aggressive. She was started back in September on low dose of seroquel but no further medication adjustments have been made to manage these symptoms, which are disruptive but not life threatening nor at imminent risk of harm to self or others. As consequence of minimal intervention in the community, pt has had more frequent ED visits here and at [facility]. We discussed risks, benefits and alternative treatment options, pt agrees to start mood stabilizer for impulsive, explosive behaviors. We also discussed switching seroquel to risperidone. Pt is orientation has been intact all along. PLAN 01/20 schedule trazodone 50mg po qhs for sleep. 01/21 continue tx. depakote levels scheduled for tomorrow AM with ammonia levels. 01/22 trough depakote level 75, ammonia 41. continue tx. continue tx 01/24 continue tx. 01/25 continue tx. 01/26 continue tx. 01/27: continue current mgmt. 01/28: continue current mgmt. 01/29 continue tx. 01/30 continue tx. 01/31 continues tx-continue monitor bilat LE- doppler did not show DVT. 02/01: No change in medications, continue current plan of care. 02/02: Continue current plan. 02/03: Continue current plans and regimen 02/04 continue tx. 02/05 continue tx. 02/06 continue tx. 02/07 continue tx. 02/09: no changes 02/10 continue tx. 02/11 continue tx. 02/12 continue tx. 02/13 continue tx. 02/14 continue tx. awaiting placement. 02/15: Continue current treatment plan. 02/16: Continue current plan. 02/17 continue tx. 02/18 continue tx. 02/19 continue tx. 02/20 continue tx. 02/21 continue tx. 02/22: Continue current plans and regimen 02/23: Continue current plans and regimen 02/24 continue tx 02/25 continue tx. 02/26 continue tx. 02/27 continue tx. 02/28 continue tx. 03/01 continue same treatment 03/02 continue same treatment 03/03 continue tx. 03/04 continue tx. awaiting placement 03/05 continue tx. 03/06 continue tx. awaiting placement. 03/07 continue tx. 03/08: received oxycodone 5, ativan 1 mg this morning for what appears to be lower back spasm. try flexeril 5 mg one time. otherwise continue current mgmt. 03/09: no c/o back pain today. calm, cooperative. no behavioral issues. asking when she will be discharging. continue current mgmt. 03/10 continue tx. 03/11 continue tx. 03/12 continue tx. 03/13 continue tx. 03/14 continue tx. 03/15: Continue current management and treatment plan. 03/16 continue tx. 03/17- continues tx. will add lidocaine back pain. 03/18 continue tx. 03/19 continue tx. 03/20 continue same treatment 03/21 continue same treatment 03/22 continue tx. 03/23 continue tx. 03/24 continue tx. 03/25 continue tx. 03/26 continue tx. 03/27 continue tx. Reason for continued inpatient stay Substantial Risk for: inability to function Time Spent With Patient Time: Total time managing care of this patient today ____ minutes.
[2023-03-27] MEDS: Clopidogrel Bisulfate 75 MG TABLET PO (09:08)
[2023-03-27] MEDS: Memantine HCl 10 MG TABLET PO ×2 (09:08→20:40)
[2023-03-27] MEDS: Metoprolol Tartrate 25 MG TABLET PO (09:08)
[2023-03-27] MEDS: Escitalopram Oxalate 10 MG TABLET PO (09:08)
[2023-03-27] MEDS: Insulin Lispro 100 UNIT/ML 3 ML VIAL SUBCUT ×3 (09:08→16:36)
[2023-03-27] MEDS: Divalproex Sodium 250 MG TABLET.DR PO (09:08)
[2023-03-27] MEDS: Lidocaine 4 % Patch ADH..PATCH 1 PATCH TRANSDERMA ×2 (09:09)
[2023-03-27] MEDS: Acetaminophen 325 MG TABLET 650 MG PO (10:06)
[2023-03-27 11:19] LABS: Glucose, Whole Blood 378 mg/dL (60-115)
[2023-03-27] MEDS: Gabapentin 600 MG TABLET PO ×2 (12:39→20:40)
[2023-03-27 16:25] LABS: Glucose, Whole Blood 263 mg/dL (60-115)
[2023-03-27 20:00] VITALS: BP 146/92; PULSE 76; RESP 18; TEMP 36.8; O2SAT 97
[2023-03-27 20:03] LABS: Glucose, Whole Blood 159 mg/dL (60-115)
[2023-03-27] MEDS: Insulin Glargine,Hum.rec.anlog 100 UNIT/ML 10 ML VIAL 47 UNIT SUBCUT (20:39)
[2023-03-27] MEDS: Donepezil HCl 10 MG TABLET PO (20:40)
[2023-03-27] MEDS: Valsartan 80 MG TABLET PO (20:40)
[2023-03-27] MEDS: Atorvastatin Calcium 20 MG TABLET PO (20:40)
[2023-03-27] MEDS: Divalproex Sodium 500 MG TABLET.DR PO (20:40)
[2023-03-27] MEDS: traZODone HCL 50 MG TABLET PO (20:40)
[2023-03-28] MEDS: Levothyroxine Sodium 75 MCG TABLET PO (06:20)
[2023-03-28 06:36] LABS: Glucose, Whole Blood 162 mg/dL (60-115)
[2023-03-28 07:45] VITALS: BP 122/53; PULSE 63; RESP 16; TEMP 36.2; O2SAT 96
[2023-03-28] MEDS: Memantine HCl 10 MG TABLET PO ×2 (08:41→20:53)
[2023-03-28] MEDS: Metoprolol Tartrate 25 MG TABLET PO (08:41)
[2023-03-28] MEDS: Escitalopram Oxalate 10 MG TABLET PO (08:41)
[2023-03-28] MEDS: Divalproex Sodium 250 MG TABLET.DR PO (08:41)
[2023-03-28] MEDS: Clopidogrel Bisulfate 75 MG TABLET PO (08:41)
[2023-03-28] MEDS: Insulin Lispro 100 UNIT/ML 3 ML VIAL SUBCUT ×3 (08:42→16:44)
[2023-03-28] MEDS: Lidocaine 4 % Patch ADH..PATCH 1 PATCH TRANSDERMA ×2 (08:46→08:47)
[2023-03-28 11:07] LABS: Glucose, Whole Blood 322 mg/dL (60-115)
--- NOTE | 2023-03-28 11:48 | PM.EVENT ---
Event Note Date of Service: 03/28/23 Event Note: Medical consult for hyperglycemia and uncontrolled diabetes type 2. Patient has a long history of hyperglycemia and poor adherence to diabetic diet on the unit. His already had 2 increases to sliding-scale insulin and to nighttime Lantus. Will increase patient's nighttime Lantus by 3 units to 50 units at bedtime. Will hold off on adjusting sliding-scale insulin for now. Encourage patient to adhere to diabetic diet and to avoid snacking on high sugar foods. Time Spent With Patient Time: Total time managing care of this patient today ____ minutes.
[2023-03-28] MEDS: Acetaminophen 325 MG TABLET 650 MG PO (12:26)
[2023-03-28] MEDS: Gabapentin 600 MG TABLET PO ×2 (12:27→20:53)
--- NOTE | 2023-03-28 12:38 | HO.PSYCHPN ---
Subjective Subjective Date of Service: 03/28/23 Reason For Visit: Depression Subjective Notes: Conditional Voluntary Interim History: The nursing staff reported no changes in her mental status, visible in the unit. The occupational therapist reported the patient does not meet her walker 40 and will . On interview the patient denies new symptoms, waiting for placement. Mental Status Exam Mental Status Exam Patient Appearance: Appropriate Patient Orientation: Person and Situation Level of Consciousness: Awake and Appropriate Patient Behavior: Guarded and Passive Mood Description: Constricted Affect Description: Calm Patient Cognition Impaired: Yes Ability to Follow Directions: Good Speech Pattern: Clear Hallucinations: None Delusions: Not Present Thought Process: Distracted and Slowed Thinking Thought Content: positive for [place] and positive for Poverty of Content Judgement: Poor Diagnostics Vital Signs (24Hr): Vital Signs - 24 hr 03/27/23 20:00 03/28/23 07:45 Temperature 98.2 F 97.1 F Pulse Rate 76 63 Respiratory Rate 18 16 Blood Pressure 146/92 H 122/53 L Pulse Oximetry 97 96 Oxygen Delivery Method Room Air Room Air BMI result Body Mass Index 28.4 Labs 01/07/23 17:49 01/07/23 17:49 Labs: Laboratory Results - last 48 hr 03/26/23 03/26/23 03/27/23 16:08 20:14 06:27 POC Glucose 186 H 221 H 178 H 03/27/23 03/27/23 03/27/23 11:15 16:14 20:00 POC Glucose 378 H* 263 H 159 H 03/28/23 03/28/23 06:02 11:01 POC Glucose 162 H 322 H Imaging Radiology Impressions: ITS Impressions Venous Duplex 01/30/23 16:02 IMPRESSION: No DVT demonstrated in the bilateral lower extremity. Medications Medications Current Medications Acetaminophen (Acetaminophen 325 Mg Tablet) 650 mg PO Q6H PRN PRN Reason: Headache/Pain Mild Scale (1-3) Last Admin: 03/28/23 12:26 Dose: 650 mg Al Hydroxide/Mg Hydroxide (Magnesium Hydrox/Alum Hydrox 30 Ml Oral.Susp) 30 ml PO Q6H PRN PRN Reason: Heartburn/Nausea Last Admin: 02/10/23 22:17 Dose: 30 ml Artificial Tears (Artificial Tears 15 Ml Drops) 1 drop EYE-BOTH Q4H PRN PRN Reason: Dry Eyes Atorvastatin Calcium (Atorvastatin Calcium 20 Mg Tablet) 20 mg PO BEDTIME [facility] Last Admin: 03/27/23 20:40 Dose: 20 mg Bisacodyl (Bisacodyl 10 Mg Supp.Rect) [address] DAILY PRN PRN Reason: Constipation Clopidogrel Bisulfate (Clopidogrel Bisulfate 75 Mg Tablet) 75 mg PO DAILY [facility] Last Admin: 03/28/23 08:41 Dose: 75 mg Divalproex Sodium (Divalproex Sodium 500 Mg Tablet.) 500 mg PO BEDTIME [facility] Last Admin: 03/27/23 20:40 Dose: 500 mg Divalproex Sodium (Divalproex Sodium 250 Mg Tablet.Dr) 250 mg PO DAILY [facility] Last Admin: 03/28/23 08:41 Dose: 250 mg Donepezil HCl (Donepezil Hcl 10 Mg Tablet) 10 mg PO BEDTIME [facility] Last Admin: 03/27/23 20:40 Dose: 10 mg Escitalopram Oxalate (Escitalopram Oxalate 10 Mg Tablet) 10 mg PO DAILY [facility] Last Admin: 03/28/23 08:41 Dose: 10 mg Gabapentin (Gabapentin 600 Mg Tablet) 600 mg PO BEDTIME [facility] Last Admin: 03/27/23 20:40 Dose: 600 mg Gabapentin (Gabapentin 600 Mg Tablet) 600 mg PO DAILY@1300 [facility] Last Admin: 03/28/23 12:27 Dose: 600 mg Glucagon (Glucagon Hcl 1 Mg Vial) 1 mg SUBCUT Q20M PRN PRN Reason: BG <70 AND UNRESPONSIVE Glucose (Glucose Gel 15 Gm Gel..Gram.) 15 gm PO Q15M PRN PRN Reason: BG <70 AND RESPONSIVE Last Admin: 01/30/23 03:12 Dose: 15 gm Insulin Glargine (Insulin Glargine,Hum.Rec.Anlog 100 Unit/Ml 10 Ml Vial) 50 unit SUBCUT BEDTIME [facility] Insulin Human Lispro (Insulin Lispro 100 Unit/Ml 3 Ml Vial) 0 unit SUBCUT TIDAC [facility]; Protocol Last Admin: 03/28/23 11:22 Dose: 10 unit Levothyroxine Sodium (Levothyroxine Sodium 75 Mcg Tablet) 75 mcg PO DAILY@0630 [facility] Last Admin: 03/28/23 06:20 Dose: 75 mcg Lidocaine (Lidocaine 4 % Patch Adh..Patch) 1 patch TRANSDERMA DAILY [facility]; Protocol Last Admin: 03/28/23 08:46 Dose: 1 patch Lidocaine (Lidocaine 4 % Patch Adh..Patch) 1 patch TRANSDERMA DAILY [facility]; Protocol Last Admin: 03/28/23 08:47 Dose: 1 patch Loperamide HCl (Loperamide Hcl 2 Mg Capsule) 2 mg PO Q6H PRN PRN Reason: diarrhea Last Admin: 03/19/23 17:40 Dose: 2 mg Magnesium Hydroxide (Milk Of Magnesia 30 Ml Oral.Susp) 30 ml PO DAILY PRN PRN Reason: Constipation Magnesium Hydroxide (Milk Of Magnesia 30 Ml Oral.Susp) 30 ml PO DAILY PRN PRN Reason: Constipation Memantine (Memantine Hcl 10 Mg Tablet) 10 mg PO BID [facility] Last Admin: 03/28/23 08:41 Dose: 10 mg Metoprolol Tartrate (Metoprolol Tartrate 25 Mg Tablet) 25 mg PO DAILY [facility]; Protocol Last Admin: 03/28/23 08:41 Dose: 25 mg Quetiapine Fumarate (Quetiapine Fumarate 50 Mg Tablet) 50 mg PO Q6H PRN PRN Reason: agitation Last Admin: 02/26/23 00:10 Dose: 50 mg Sodium Biphosphate/Sodium Phosphate (Sodium Phosphate,[place]-Dibasic 133 Ml Enema) [address] DAILY PRN PRN Reason: Constipation Trazodone HCl (Trazodone Hcl 50 Mg Tablet) 50 mg PO BEDTIME PRN PRN Reason: Insomnia Last Admin: 03/27/23 20:40 Dose: 50 mg Valsartan (Valsartan 80 Mg Tablet) 80 mg PO BEDTIME [facility]; Protocol Last Admin: 03/27/23 20:40 Dose: 80 mg Allergies Allergies Allergy/AdvReac Type Severity Reaction Status Date / Time aspirin [ASPIRIN] Allergy Unknown UNKNOWN Verified 01/01/23 09:43 Assessment & Plan Assessment & Plan (1) Major neurocognitive disorder: Status: Acute Code(s): F03.90 - Unspecified dementia, unspecified severity, without behavioral disturbance, psychotic disturbance, mood disturbance, and anxiety (2) Mood disorder: Status: Acute Code(s): F39 - Unspecified mood [affective] disorder Plan Ms. Landis is a 67 year-old woman with hx of Mood Disorder (untreated for most of her life) and neurocognitive disorder who was brought via EMS from [facility] due to increase verbal aggression towards roommate and one of their staff. Pt is known to this investigative writer through previous assessment for similar presentation. Pt presents as calmer, she does admit to being verbally abusive, although denies any intent to harm self or others. She does lack the insight into how her behaviors affect others and her relationships with others. This tendency to have difficulty seeing other people's need per daughter has been life long. Pt presents with tendency to be irritable, at times explosive but not physically aggressive. She was started back in September on low dose of seroquel but no further medication adjustments have been made to manage these symptoms, which are disruptive but not life threatening nor at imminent risk of harm to self or others. As consequence of minimal intervention in the community, pt has had more frequent ED visits here and at [facility]. We discussed risks, benefits and alternative treatment options, pt agrees to start mood stabilizer for impulsive, explosive behaviors. We also discussed switching seroquel to risperidone. Pt is orientation has been intact all along. PLAN 01/20 schedule trazodone 50mg po qhs for sleep. 01/21 continue tx. depakote levels scheduled for tomorrow AM with ammonia levels. 01/22 trough depakote level 75, ammonia 41. continue tx. continue tx 01/24 continue tx. 01/25 continue tx. 01/26 continue tx. 01/27: continue current mgmt. 01/28: continue current mgmt. 01/29 continue tx. 01/30 continue tx. 01/31 continues tx-continue monitor bilat LE- doppler did not show DVT. 02/01: No change in medications, continue current plan of care. 02/02: Continue current plan. 02/03: Continue current plans and regimen 02/04 continue tx. 02/05 continue tx. 02/06 continue tx. 02/07 continue tx. 02/09: no changes 02/10 continue tx. 02/11 continue tx. 02/12 continue tx. 02/13 continue tx. 02/14 continue tx. awaiting placement. 02/15: Continue current treatment plan. 02/16: Continue current plan. 02/17 continue tx. 02/18 continue tx. 02/19 continue tx. 02/20 continue tx. 02/21 continue tx. 02/22: Continue current plans and regimen 02/23: Continue current plans and regimen 02/24 continue tx 02/25 continue tx. 02/26 continue tx. 02/27 continue tx. 02/28 continue tx. 03/01 continue same treatment 03/02 continue same treatment 03/03 continue tx. 03/04 continue tx. awaiting placement 03/05 continue tx. 03/06 continue tx. awaiting placement. 03/07 continue tx. 03/08: received oxycodone 5, ativan 1 mg this morning for what appears to be lower back spasm. try flexeril 5 mg one time. otherwise continue current mgmt. 03/09: no c/o back pain today. calm, cooperative. no behavioral issues. asking when she will be discharging. continue current mgmt. 03/10 continue tx. 03/11 continue tx. 03/12 continue tx. 03/13 continue tx. 03/14 continue tx. 03/15: Continue current management and treatment plan. 03/16 continue tx. 03/17- continues tx. will add lidocaine back pain. 03/18 continue tx. 03/19 continue tx. 03/20 continue same treatment 03/21 continue same treatment 03/22 continue tx. 03/23 continue tx. 03/24 continue tx. 03/25 continue tx. 03/26 continue tx. 03/27 continue tx. 03/28 continue treatment, waiting for placement Reason for continued inpatient stay Substantial Risk for: inability to function, rapid decompensation and med/psych decompensation Time Spent With Patient Time: Total time managing care of this patient today __20__ minutes.
[2023-03-28 16:35] LABS: Glucose, Whole Blood 295 mg/dL (60-115)
[2023-03-28 18:00] VITALS: BP 148/67; PULSE 62; RESP 16; TEMP 35.9; O2SAT 94
[2023-03-28 20:09] LABS: Glucose, Whole Blood 282 mg/dL (60-115)
[2023-03-28] MEDS: Insulin Glargine,Hum.rec.anlog 100 UNIT/ML 10 ML VIAL 50 UNIT SUBCUT (20:51)
[2023-03-28] MEDS: Valsartan 80 MG TABLET PO (20:52)
[2023-03-28] MEDS: Divalproex Sodium 500 MG TABLET.DR PO (20:53)
[2023-03-28] MEDS: Atorvastatin Calcium 20 MG TABLET PO (20:53)
[2023-03-28] MEDS: Donepezil HCl 10 MG TABLET PO (20:53)
[2023-03-29] MEDS: Levothyroxine Sodium 75 MCG TABLET PO (06:31)
[2023-03-29 06:43] LABS: Glucose, Whole Blood 122 mg/dL (60-115)
[2023-03-29 08:47] VITALS: BP 136/74; PULSE 73; RESP 18; TEMP 36.4; O2SAT 97
[2023-03-29] MEDS: Lidocaine 4 % Patch ADH..PATCH 1 PATCH TRANSDERMA ×2 (08:51→09:00)
[2023-03-29] MEDS: Escitalopram Oxalate 10 MG TABLET PO (08:51)
[2023-03-29] MEDS: Memantine HCl 10 MG TABLET PO ×2 (08:52→20:15)
[2023-03-29] MEDS: Divalproex Sodium 250 MG TABLET.DR PO (08:52)
[2023-03-29] MEDS: Clopidogrel Bisulfate 75 MG TABLET PO (08:52)
[2023-03-29] MEDS: Metoprolol Tartrate 25 MG TABLET PO (08:52)
[2023-03-29 11:20] LABS: Glucose, Whole Blood 303 mg/dL (60-115)
[2023-03-29] MEDS: Insulin Lispro 100 UNIT/ML 3 ML VIAL SUBCUT ×2 (12:00→17:35)
[2023-03-29] MEDS: Gabapentin 600 MG TABLET PO ×2 (12:01→20:16)
--- NOTE | 2023-03-29 13:16 | P.PNPSI_ITS ---
Subjective Subjective Date of Service: 03/29/23 Reason For Visit: Depression Interim History: met with patient. Discussed with Nursing. Chart reviewed. Pending placement. Adherent with medications and sleep okay. Overall no significant management issues. Patient pleasant with law writer. Utilizing walking frame appropriately. In the milieu. Self-care good. Voiced no concerns stating she is fine. No evidence of SI or psychosis. Medication Compliance: Yes Side effects from medications: No Attending Groups: Yes Review of Systems Acute medical concerns: No Review of Systems Review of Systems Unremarkable Mental Status Exam Mental Status Exam Patient Appearance: Appropriate Patient Orientation: Person and Situation Level of Consciousness: Awake and Appropriate Patient Behavior: Guarded and Passive Mood Description: Constricted Affect Description: Calm Patient Cognition Impaired: Yes Ability to Follow Directions: Good Speech Pattern: Clear Hallucinations: None Delusions: Not Present Thought Process: Distracted and Slowed Thinking Thought Content: positive for [place] and positive for Poverty of Content Judgement: Poor Diagnostics Vital Signs (24Hr): Vital Signs - 24 hr 03/28/23 18:00 03/29/23 08:47 Temperature 96.7 F L 97.6 F Pulse Rate 62 73 Respiratory Rate 16 18 Blood Pressure 148/67 H 136/74 Pulse Oximetry 94 97 Oxygen Delivery Method Room Air Room Air BMI result Body Mass Index 28.4 Labs 01/07/23 17:49 01/07/23 17:49 Labs: Laboratory Results - last 48 hr 03/27/23 03/27/23 03/28/23 16:14 20:00 06:02 POC Glucose 263 H 159 H 162 H 03/28/23 03/28/23 03/28/23 11:01 16:29 19:40 POC Glucose 322 H 295 H 282 H 03/29/23 03/29/23 06:12 11:06 POC Glucose 122 H 303 H Imaging Radiology Impressions: ITS Impressions Venous Duplex 01/30/23 16:02 IMPRESSION: No DVT demonstrated in the bilateral lower extremity. Medications Medications Current Medications Acetaminophen (Acetaminophen 325 Mg Tablet) 650 mg PO Q6H PRN PRN Reason: Headache/Pain Mild Scale (1-3) Last Admin: 03/28/23 12:26 Dose: 650 mg Al Hydroxide/Mg Hydroxide (Magnesium Hydrox/Alum Hydrox 30 Ml Oral.Susp) 30 ml PO Q6H PRN PRN Reason: Heartburn/Nausea Last Admin: 02/10/23 22:17 Dose: 30 ml Artificial Tears (Artificial Tears 15 Ml Drops) 1 drop EYE-BOTH Q4H PRN PRN Reason: Dry Eyes Atorvastatin Calcium (Atorvastatin Calcium 20 Mg Tablet) 20 mg PO BEDTIME COUNTS INCLUDE 234 BEDS AT THE [facility] Last Admin: 03/28/23 20:53 Dose: 20 mg Bisacodyl (Bisacodyl 10 Mg Supp.Rect) 10 mg MI DAILY PRN PRN Reason: Constipation Clopidogrel Bisulfate (Clopidogrel Bisulfate 75 Mg Tablet) 75 mg PO DAILY COUNTS INCLUDE 234 BEDS AT THE [facility] Last Admin: 03/29/23 08:52 Dose: 75 mg Divalproex Sodium (Divalproex Sodium 500 Mg Tablet.) 500 mg PO BEDTIME COUNTS INCLUDE 234 BEDS AT THE [facility] Last Admin: 03/28/23 20:53 Dose: 500 mg Divalproex Sodium (Divalproex Sodium 250 Mg Tablet.) 250 mg PO DAILY COUNTS INCLUDE 234 BEDS AT THE [facility] Last Admin: 03/29/23 08:52 Dose: 250 mg Donepezil HCl (Donepezil Hcl 10 Mg Tablet) 10 mg PO BEDTIME COUNTS INCLUDE 234 BEDS AT THE [facility] Last Admin: 03/28/23 20:53 Dose: 10 mg Escitalopram Oxalate (Escitalopram Oxalate 10 Mg Tablet) 10 mg PO DAILY COUNTS INCLUDE 234 BEDS AT THE [facility] Last Admin: 03/29/23 08:51 Dose: 10 mg Gabapentin (Gabapentin 600 Mg Tablet) 600 mg PO BEDTIME COUNTS INCLUDE 234 BEDS AT THE [facility] Last Admin: 03/28/23 20:53 Dose: 600 mg Gabapentin (Gabapentin 600 Mg Tablet) 600 mg PO DAILY@1300 COUNTS INCLUDE 234 BEDS AT THE [facility] Last Admin: 03/29/23 12:01 Dose: 600 mg Glucagon (Glucagon Hcl 1 Mg Vial) 1 mg SUBCUT Q20M PRN PRN Reason: BG <70 AND UNRESPONSIVE Glucose (Glucose Gel 15 Gm Gel..Gram.) 15 gm PO Q15M PRN PRN Reason: BG <70 AND RESPONSIVE Last Admin: 01/30/23 03:12 Dose: 15 gm Insulin Glargine (Insulin Glargine,Hum.Rec.Anlog 100 Unit/Ml 10 Ml Vial) 50 unit SUBCUT BEDTIME COUNTS INCLUDE 234 BEDS AT THE [facility] Last Admin: 03/28/23 20:51 Dose: 50 unit Insulin Human Lispro (Insulin Lispro 100 Unit/Ml 3 Ml Vial) 0 unit SUBCUT TIDAC COUNTS INCLUDE 234 BEDS AT THE [facility]; Protocol Last Admin: 03/29/23 12:00 Dose: 10 unit Levothyroxine Sodium (Levothyroxine Sodium 75 Mcg Tablet) 75 mcg PO DAILY@0630 COUNTS INCLUDE 234 BEDS AT THE [facility] Last Admin: 03/29/23 06:31 Dose: 75 mcg Lidocaine (Lidocaine 4 % Patch Adh..Patch) 1 patch TRANSDERMA DAILY [facility]; Protocol Last Admin: 03/29/23 08:51 Dose: 1 patch Lidocaine (Lidocaine 4 % Patch Adh..Patch) 1 patch TRANSDERMA DAILY [facility]; Protocol Last Admin: 03/29/23 09:00 Dose: 1 patch Loperamide HCl (Loperamide Hcl 2 Mg Capsule) 2 mg PO Q6H PRN PRN Reason: diarrhea Last Admin: 03/19/23 17:40 Dose: 2 mg Magnesium Hydroxide (Milk Of Magnesia 30 Ml Oral.Susp) 30 ml PO DAILY PRN PRN Reason: Constipation Magnesium Hydroxide (Milk Of Magnesia 30 Ml Oral.Susp) 30 ml PO DAILY PRN PRN Reason: Constipation Memantine (Memantine Hcl 10 Mg Tablet) 10 mg PO BID JO[facility]E Last Admin: 03/29/23 08:52 Dose: 10 mg Metoprolol Tartrate (Metoprolol Tartrate 25 Mg Tablet) 25 mg PO DAILY [facility]; Protocol Last Admin: 03/29/23 08:52 Dose: 25 mg Quetiapine Fumarate (Quetiapine Fumarate 50 Mg Tablet) 50 mg PO Q6H PRN PRN Reason: agitation Last Admin: 02/26/23 00:10 Dose: 50 mg Sodium Biphosphate/Sodium Phosphate (Sodium Phosphate,[place]-Dibasic 133 Ml Enema) 133 ml MI DAILY PRN PRN Reason: Constipation Trazodone HCl (Trazodone Hcl 50 Mg Tablet) 50 mg PO BEDTIME PRN PRN Reason: Insomnia Last Admin: 03/27/23 20:40 Dose: 50 mg Valsartan (Valsartan 80 Mg Tablet) 80 mg PO BEDTIME [facility]; Protocol Last Admin: 03/28/23 20:52 Dose: 80 mg Allergies Allergies Allergy/AdvReac Type Severity Reaction Status Date / Time aspirin [ASPIRIN] Allergy Unknown UNKNOWN Verified 01/01/23 09:43 Assessment & Plan Assessment & Plan (1) Major neurocognitive disorder: Status: Acute Code(s): F03.90 - Unspecified dementia, unspecified severity, without behavioral disturbance, psychotic disturbance, mood disturbance, and anxiety (2) Mood disorder: Status: Acute Code(s): F39 - Unspecified mood [affective] disorder Plan Ms. Landis is a 67 year-old woman with hx of Mood Disorder (untreated for most of her life) and neurocognitive disorder who was [facility] EMS [facility] due to increase verbal aggression towards roommate and one of their staff. Pt is known to this law writer through previous assessment for similar presentation. Pt presents as calmer, she does admit to being verbally abusive, although denies any intent to harm self or others. She does lack the insight into how her behaviors affect others and her relationships with others. This tendency to have difficulty seeing other people's need per daughter has been life long. Pt presents with tendency to be irritable, at times explosive but not physically aggressive. She was started back in September on low dose of seroquel but no further medication adjustments have been made to manage these symptoms, which are disruptive but not life threatening nor at imminent risk of harm to self or others. As consequence of minimal intervention in the community, pt has had more frequent ED visits here and at [facility]. We discussed risks, benefits and alternative treatment options, pt agrees to start mood stabilizer for impulsive, explosive behaviors. We also discussed switching seroquel to risperidone. Pt is orientation has been intact all along. PLAN 01/20 schedule trazodone 50mg po qhs for sleep. 01/21 continue tx. depakote levels scheduled for tomorrow AM with ammonia levels. 01/22 trough depakote level 75, ammonia 41. continue tx. continue tx 01/24 continue tx. 01/25 continue tx. 01/26 continue tx. 01/27: continue current mgmt. 01/28: continue current mgmt. 01/29 continue tx. 01/30 continue tx. 01/31 continues tx-continue monitor bilat LE- doppler did not show DVT. 02/01: No change in medications, continue current plan of care. 02/02: Continue current plan. 02/03: Continue current plans and regimen 02/04 continue tx. 02/05 continue tx. 02/06 continue tx. 02/07 continue tx. 02/09: no changes 02/10 continue tx. 02/11 continue tx. 02/12 continue tx. 02/13 continue tx. 02/14 continue tx. awaiting placement. 02/15: Continue current treatment plan. 02/16: Continue current plan. 02/17 continue tx. 02/18 continue tx. 02/19 continue tx. 10/26 continue tx. 02/21 continue tx. 02/22: Continue current plans and regimen 02/23: Continue current plans and regimen 02/24 continue tx 02/25 continue tx. 02/26 continue tx. 02/27 continue tx. 02/28 continue tx. 03/01 continue same treatment 03/02 continue same treatment 03/03 continue tx. 03/04 continue tx. awaiting placement 03/05 continue tx. 03/06 continue tx. awaiting placement. 03/07 continue tx. 03/08: received oxycodone 5, ativan 1 mg this morning for what appears to be lower back spasm. try flexeril 5 mg one time. otherwise continue current mgmt. 03/09: no c/o back pain today. calm, cooperative. no behavioral issues. asking when she will be discharging. continue current mgmt. 03/10 continue tx. 03/11 continue tx. 03/12 continue tx. 03/13 continue tx. 03/14 continue tx. 03/15: Continue current management and treatment plan. 03/16 continue tx. 03/17- continues tx. will add lidocaine back pain. 03/18 continue tx. 03/19 continue tx. 03/20 continue same treatment 03/21 continue same treatment 03/22 continue tx. 03/23 continue tx. 03/24 continue tx. 03/25 continue tx. 03/26 continue tx. 03/27 continue tx. 03/28 continue treatment, waiting for placement 03/29/23: No changes Reason for continued inpatient stay Substantial Risk for: rapid decompensation Time Spent With Patient Time: Total time managing care of this patient today ____ minutes.
[2023-03-29 16:13] LABS: Glucose, Whole Blood 288 mg/dL (60-115)
[2023-03-29 19:55] LABS: Glucose, Whole Blood 331 mg/dL (60-115)
[2023-03-29 20:00] VITALS: BP 116/61; PULSE 68; RESP 16; TEMP 36.4; O2SAT 95
[2023-03-29] MEDS: Valsartan 80 MG TABLET PO (20:15)
[2023-03-29] MEDS: Divalproex Sodium 500 MG TABLET.DR PO (20:15)
[2023-03-29] MEDS: Donepezil HCl 10 MG TABLET PO (20:15)
[2023-03-29] MEDS: Atorvastatin Calcium 20 MG TABLET PO (20:16)
[2023-03-29] MEDS: Insulin Glargine,Hum.rec.anlog 100 UNIT/ML 10 ML VIAL 50 UNIT SUBCUT (20:16)
[2023-03-30] MEDS: traZODone HCL 50 MG TABLET PO (01:30)
[2023-03-30] MEDS: Levothyroxine Sodium 75 MCG TABLET PO (05:28)
[2023-03-30 06:08] LABS: Glucose, Whole Blood 149 mg/dL (60-115)
[2023-03-30 08:00] VITALS: BP 125/60; PULSE 70; RESP 18; TEMP 36.6; O2SAT 97
[2023-03-30] MEDS: Lidocaine 4 % Patch ADH..PATCH 1 PATCH TRANSDERMA ×2 (08:14→08:15)
[2023-03-30] MEDS: Memantine HCl 10 MG TABLET PO ×2 (08:14→21:13)
[2023-03-30] MEDS: Metoprolol Tartrate 25 MG TABLET PO (08:14)
[2023-03-30] MEDS: Escitalopram Oxalate 10 MG TABLET PO (08:14)
[2023-03-30] MEDS: Divalproex Sodium 250 MG TABLET.DR PO (08:14)
[2023-03-30] MEDS: Clopidogrel Bisulfate 75 MG TABLET PO (08:18)
--- NOTE | 2023-03-30 09:40 | P.PNPSI_ITS ---
Subjective Subjective Date of Service: 03/30/23 Reason For Visit: Depression Subjective Notes: Conditional Voluntary Healthcare Proxy: No Guardianship: No Interim History: Pending placement. Adherent with medications and sleep okay. Overall no significant management issues. Patient pleasant with contract writer. Utilizing walking frame appropriately. In the milieu and groups. Self-care good. Voiced no concerns stating she is fine. No evidence of SI or psychosis. Medication Compliance: Yes Side effects from medications: No Attending Groups: Yes Review of Systems Acute medical concerns: No Review of Systems Review of Systems Unremarkable Mental Status Exam Mental Status Exam Patient Appearance: Appropriate Patient Orientation: Person and Situation Level of Consciousness: Awake and Appropriate Patient Behavior: Guarded and Passive Mood Description: Constricted Affect Description: Calm Patient Cognition Impaired: Yes Ability to Follow Directions: Good Speech Pattern: Clear Diagnostics Vital Signs (24Hr): Vital Signs - 24 hr 03/29/23 20:00 03/30/23 08:00 Temperature 97.6 F 97.8 F Pulse Rate 68 70 Respiratory Rate 16 18 Blood Pressure 116/61 125/60 Pulse Oximetry 95 97 Oxygen Delivery Method Room Air Room Air BMI result Body Mass Index 28.4 Labs 01/07/23 17:49 01/07/23 17:49 Labs: Laboratory Results - last 48 hr 03/28/23 03/28/23 03/28/23 11:01 16:29 19:40 POC Glucose 322 H 295 H 282 H 03/29/23 03/29/23 03/29/23 06:12 11:06 15:53 POC Glucose 122 H 303 H 288 H 03/29/23 03/30/23 19:51 05:31 POC Glucose 331 H 149 H Imaging Radiology Impressions: ITS Impressions Venous Duplex 01/30/23 16:02 IMPRESSION: No DVT demonstrated in the bilateral lower extremity. Medications Medications Current Medications Acetaminophen (Acetaminophen 325 Mg Tablet) 650 mg PO Q6H PRN PRN Reason: Headache/Pain Mild Scale (1-3) Last Admin: 03/28/23 12:26 Dose: 650 mg Al Hydroxide/Mg Hydroxide (Magnesium Hydrox/Alum Hydrox 30 Ml Oral.Susp) 30 ml PO Q6H PRN PRN Reason: Heartburn/Nausea Last Admin: 02/10/23 22:17 Dose: 30 ml Artificial Tears (Artificial Tears 15 Ml Drops) 1 drop EYE-BOTH Q4H PRN PRN Reason: Dry Eyes Atorvastatin Calcium (Atorvastatin Calcium 20 Mg Tablet) 20 mg PO BEDTIME [facility] Last Admin: 03/29/23 20:16 Dose: 20 mg Bisacodyl (Bisacodyl 10 Mg Supp.Rect) 10 mg GA DAILY PRN PRN Reason: Constipation Clopidogrel Bisulfate (Clopidogrel Bisulfate 75 Mg Tablet) 75 mg PO DAILY [facility] Last Admin: 03/30/23 08:18 Dose: 75 mg Divalproex Sodium (Divalproex Sodium 500 Mg Tablet.) 500 mg PO BEDTIME [facility] Last Admin: 03/29/23 20:15 Dose: 500 mg Divalproex Sodium (Divalproex Sodium 250 Mg Tablet.) 250 mg PO DAILY [facility] Last Admin: 03/30/23 08:14 Dose: 250 mg Donepezil HCl (Donepezil Hcl 10 Mg Tablet) 10 mg PO BEDTIME [facility] Last Admin: 03/29/23 20:15 Dose: 10 mg Escitalopram Oxalate (Escitalopram Oxalate 10 Mg Tablet) 10 mg PO DAILY [facility] Last Admin: 03/30/23 08:14 Dose: 10 mg Gabapentin (Gabapentin 600 Mg Tablet) 600 mg PO BEDTIME [facility] Last Admin: 03/29/23 20:16 Dose: 600 mg Gabapentin (Gabapentin 600 Mg Tablet) 600 mg PO DAILY@1300 [facility] Last Admin: 03/29/23 12:01 Dose: 600 mg Glucagon (Glucagon Hcl 1 Mg Vial) 1 mg SUBCUT Q20M PRN PRN Reason: BG <70 AND UNRESPONSIVE Glucose (Glucose Gel 15 Gm Gel..Gram.) 15 gm PO Q15M PRN PRN Reason: BG <70 AND RESPONSIVE Last Admin: 01/30/23 03:12 Dose: 15 gm Insulin Glargine (Insulin Glargine,Hum.Rec.Anlog 100 Unit/Ml 10 Ml Vial) 50 unit SUBCUT BEDTIME [facility] Last Admin: 03/29/23 20:16 Dose: 50 unit Insulin Human Lispro (Insulin Lispro 100 Unit/Ml 3 Ml Vial) 0 unit SUBCUT TIDAC [facility]; Protocol Last Admin: 03/30/23 08:13 Dose: Not Given Levothyroxine Sodium (Levothyroxine Sodium 75 Mcg Tablet) 75 mcg PO DAILY@0630 [facility] Last Admin: 03/30/23 05:28 Dose: 75 mcg Lidocaine (Lidocaine 4 % Patch Adh..Patch) 1 patch TRANSDERMA DAILY [facility]; Protocol Last Admin: 03/30/23 08:15 Dose: 1 patch Lidocaine (Lidocaine 4 % Patch Adh..Patch) 1 patch TRANSDERMA DAILY [facility]; Protocol Last Admin: 03/30/23 08:14 Dose: 1 patch Loperamide HCl (Loperamide Hcl 2 Mg Capsule) 2 mg PO Q6H PRN PRN Reason: diarrhea Last Admin: 03/19/23 17:40 Dose: 2 mg Magnesium Hydroxide (Milk Of Magnesia 30 Ml Oral.Susp) 30 ml PO DAILY PRN PRN Reason: Constipation Magnesium Hydroxide (Milk Of Magnesia 30 Ml Oral.Susp) 30 ml PO DAILY PRN PRN Reason: Constipation Memantine (Memantine Hcl 10 Mg Tablet) 10 mg PO BID JO[facility]E Last Admin: 03/30/23 08:14 Dose: 10 mg Metoprolol Tartrate (Metoprolol Tartrate 25 Mg Tablet) 25 mg PO DAILY [facility]; Protocol Last Admin: 03/30/23 08:14 Dose: 25 mg Quetiapine Fumarate (Quetiapine Fumarate 50 Mg Tablet) 50 mg PO Q6H PRN PRN Reason: agitation Last Admin: 02/26/23 00:10 Dose: 50 mg Sodium Biphosphate/Sodium Phosphate (Sodium Phosphate,[place]-Dibasic 133 Ml Enema) 133 ml GA DAILY PRN PRN Reason: Constipation Trazodone HCl (Trazodone Hcl 50 Mg Tablet) 50 mg PO BEDTIME PRN PRN Reason: Insomnia Last Admin: 03/30/23 01:30 Dose: 50 mg Valsartan (Valsartan 80 Mg Tablet) 80 mg PO BEDTIME [facility]; Protocol Last Admin: 03/29/23 20:15 Dose: 80 mg Allergies Allergies Allergy/AdvReac Type Severity Reaction Status Date / Time aspirin [ASPIRIN] Allergy Unknown UNKNOWN Verified 01/01/23 09:43 Assessment & Plan Assessment & Plan (1) Major neurocognitive disorder: Status: Acute Code(s): F03.90 - Unspecified dementia, unspecified severity, without behavioral disturbance, psychotic disturbance, mood disturbance, and anxiety (2) Mood disorder: Status: Acute Code(s): F39 - Unspecified mood [affective] disorder Plan Ms. Landis is a 67 year-old woman with hx of Mood Disorder (untreated for most of her life) and neurocognitive disorder who was brought via EMS from [facility] due to increase verbal aggression towards roommate and one of their staff. Pt is known to this contract writer through previous assessment for similar presentation. Pt presents as calmer, she does admit to being verbally abusive, although denies any intent to harm self or others. She does lack the insight into how her behaviors affect others and her relationships with others. This tendency to have difficulty seeing other people's need per daughter has been life long. Pt presents with tendency to be irritable, at times explosive but not physically aggressive. She was started back in September on low dose of seroquel but no further medication adjustments have been made to manage these symptoms, which are disruptive but not life threatening nor at imminent risk of harm to self or others. As consequence of minimal intervention in the community, pt has had more frequent ED visits here and at [facility]. We discussed risks, benefits and alternative treatment options, pt agrees to start mood stabilizer for impulsive, explosive behaviors. We also discussed switching seroquel to risperidone. Pt is orientation has been intact all along. PLAN 01/20 schedule trazodone 50mg po qhs for sleep. 01/21 continue tx. depakote levels scheduled for tomorrow AM with ammonia levels. 01/22 trough depakote level 75, ammonia 41. continue tx. continue tx 01/24 continue tx. 01/25 continue tx. 01/26 continue tx. 01/27: continue current mgmt. 01/28: continue current mgmt. 01/29 continue tx. 01/30 continue tx. 01/31 continues tx-continue monitor bilat LE- doppler did not show DVT. 02/01: No change in medications, continue current plan of care. 02/02: Continue current plan. 02/03: Continue current plans and regimen 02/04 continue tx. 02/05 continue tx. 02/06 continue tx. 02/07 continue tx. 02/09: no changes 02/10 continue tx. 02/11 continue tx. 02/12 continue tx. 02/13 continue tx. 02/14 continue tx. awaiting placement. 02/15: Continue current treatment plan. 02/16: Continue current plan. 02/17 continue tx. 02/18 continue tx. 02/19 continue tx. 02/20 continue tx. 02/21 continue tx. 02/22: Continue current plans and regimen 02/23: Continue current plans and regimen 02/24 continue tx 02/25 continue tx. 02/26 continue tx. 02/27 continue tx. 02/28 continue tx. 03/01 continue same treatment 03/02 continue same treatment 03/03 continue tx. 03/04 continue tx. awaiting placement 03/05 continue tx. 03/06 continue tx. awaiting placement. 03/07 continue tx. 03/08: received oxycodone 5, ativan 1 mg this morning for what appears to be lower back spasm. try flexeril 5 mg one time. otherwise continue current mgmt. 03/09: no c/o back pain today. calm, cooperative. no behavioral issues. asking when she will be discharging. continue current mgmt. 03/10 continue tx. 03/11 continue tx. 03/12 continue tx. 03/13 continue tx. 03/14 continue tx. 03/15: Continue current management and treatment plan. 03/16 continue tx. 03/17- continues tx. will add lidocaine back pain. 03/18 continue tx. 03/19 continue tx. 03/20 continue same treatment 03/21 continue same treatment 03/22 continue tx. 03/23 continue tx. 03/24 continue tx. 03/25 continue tx. 03/26 continue tx. 03/27 continue tx. 03/28 continue treatment, waiting for placement 03/30/23: No changes Reason for continued inpatient stay Substantial Risk for: rapid decompensation Time Spent With Patient Time: Total time managing care of this patient today ____ minutes.
[2023-03-30 11:36] LABS: Glucose, Whole Blood 205 mg/dL (60-115)
[2023-03-30] MEDS: Gabapentin 600 MG TABLET PO ×2 (11:52→21:12)
[2023-03-30] MEDS: Insulin Lispro 100 UNIT/ML 3 ML VIAL SUBCUT ×2 (11:52→16:32)
[2023-03-30 16:19] LABS: Glucose, Whole Blood 243 mg/dL (60-115)
[2023-03-30 18:00] VITALS: BP 152/68; PULSE 73; RESP 18; TEMP 36.4; O2SAT 97
[2023-03-30] MEDS: Donepezil HCl 10 MG TABLET PO (21:12)
[2023-03-30] MEDS: Divalproex Sodium 500 MG TABLET.DR PO (21:12)
[2023-03-30] MEDS: Atorvastatin Calcium 20 MG TABLET PO (21:12)
[2023-03-30] MEDS: Valsartan 80 MG TABLET PO (21:13)
[2023-03-30] MEDS: Insulin Glargine,Hum.rec.anlog 100 UNIT/ML 10 ML VIAL 50 UNIT SUBCUT (21:29)
[2023-03-30] MEDS: Acetaminophen 325 MG TABLET 650 MG PO (21:44)
[2023-03-30 22:03] LABS: Glucose, Whole Blood 337 mg/dL (60-115)
[2023-03-30 23:37] LABS: Glucose, Whole Blood 259 mg/dL (60-115)
[2023-03-31] MEDS: Levothyroxine Sodium 75 MCG TABLET PO (06:25)
[2023-03-31 06:57] LABS: Glucose, Whole Blood 227 mg/dL (60-115)
[2023-03-31 08:18] VITALS: BP 130/61; PULSE 65; RESP 16; TEMP 36; O2SAT 98
[2023-03-31] MEDS: Divalproex Sodium 250 MG TABLET.DR PO (08:19)
[2023-03-31] MEDS: Escitalopram Oxalate 10 MG TABLET PO (08:19)
[2023-03-31] MEDS: Memantine HCl 10 MG TABLET PO ×2 (08:19→20:39)
[2023-03-31] MEDS: Clopidogrel Bisulfate 75 MG TABLET PO (08:20)
[2023-03-31] MEDS: Metoprolol Tartrate 25 MG TABLET PO (08:20)
[2023-03-31] MEDS: Insulin Lispro 100 UNIT/ML 3 ML VIAL SUBCUT ×3 (08:21→16:30)
--- NOTE | 2023-03-31 10:46 | HO.PSYCHPN ---
Subjective Subjective Date of Service: 03/31/23 Reason For Visit: Depression Subjective Notes: Conditional Voluntary Interim History: The nursing staff reported the patient had been flat, denies depression. She attended to groups, slept 7 hours. The social sciences chair reported that [facility] [place] [facility] called but we need financial clearance. On interview the patient denies new symptoms, waiting for placement. Mental Status Exam Mental Status Exam Patient Appearance: Appropriate Patient Orientation: Person and Situation Level of Consciousness: Awake and Appropriate Patient Behavior: Guarded and Passive Mood Description: Withdrawn Affect Description: Constricted Patient Cognition Impaired: Yes Ability to Follow Directions: Good Speech Pattern: Clear Hallucinations: None Delusions: Not Present Thought Process: Distracted and Slowed Thinking Thought Content: positive for [place] and positive for Poverty of Content Judgement: Fair Diagnostics Vital Signs (24Hr): Vital Signs - 24 hr 03/30/23 18:00 03/31/23 08:18 Temperature 97.5 F 96.8 F Pulse Rate 73 65 Respiratory Rate 18 16 Blood Pressure 152/68 H 130/61 Pulse Oximetry 97 98 Oxygen Delivery Method Room Air Room Air BMI result Body Mass Index 28.4 Labs 01/07/23 17:49 01/07/23 17:49 Labs: Laboratory Results - last 48 hr 03/29/23 03/29/23 03/29/23 11:06 15:53 19:51 POC Glucose 303 H 288 H 331 H 03/30/23 03/30/23 03/30/23 05:31 11:19 16:11 POC Glucose 149 H 205 H 243 H 03/30/23 03/30/23 03/31/23 21:10 23:32 06:30 POC Glucose 337 H 259 H 227 H Imaging Radiology Impressions: ITS Impressions Venous Duplex 01/30/23 16:02 IMPRESSION: No DVT demonstrated in the bilateral lower extremity. Medications Medications Current Medications Acetaminophen (Acetaminophen 325 Mg Tablet) 650 mg PO Q6H PRN PRN Reason: Headache/Pain Mild Scale (1-3) Last Admin: 03/30/23 21:44 Dose: 650 mg Al Hydroxide/Mg Hydroxide (Magnesium Hydrox/Alum Hydrox 30 Ml Oral.Susp) 30 ml PO Q6H PRN PRN Reason: Heartburn/Nausea Last Admin: 02/10/23 22:17 Dose: 30 ml Artificial Tears (Artificial Tears 15 Ml Drops) 1 drop EYE-BOTH Q4H PRN PRN Reason: Dry Eyes Atorvastatin Calcium (Atorvastatin Calcium 20 Mg Tablet) 20 mg PO BEDTIME [facility] Last Admin: 03/30/23 21:12 Dose: 20 mg Bisacodyl (Bisacodyl 10 Mg Supp.Rect) 10 mg [place] DAILY PRN PRN Reason: Constipation Clopidogrel Bisulfate (Clopidogrel Bisulfate 75 Mg Tablet) 75 mg PO DAILY [facility] Last Admin: 03/31/23 08:20 Dose: 75 mg Divalproex Sodium (Divalproex Sodium 500 Mg Tablet.) 500 mg PO BEDTIME [facility] Last Admin: 03/30/23 21:12 Dose: 500 mg Divalproex Sodium (Divalproex Sodium 250 Mg Tablet.) 250 mg PO DAILY [facility] Last Admin: 03/31/23 08:19 Dose: 250 mg Donepezil HCl (Donepezil Hcl 10 Mg Tablet) 10 mg PO BEDTIME [facility] Last Admin: 03/30/23 21:12 Dose: 10 mg Escitalopram Oxalate (Escitalopram Oxalate 10 Mg Tablet) 10 mg PO DAILY [facility] Last Admin: 03/31/23 08:19 Dose: 10 mg Gabapentin (Gabapentin 600 Mg Tablet) 600 mg PO BEDTIME [facility] Last Admin: 03/30/23 21:12 Dose: 600 mg Gabapentin (Gabapentin 600 Mg Tablet) 600 mg PO DAILY@1300 [facility] Last Admin: 03/30/23 11:52 Dose: 600 mg Glucagon (Glucagon Hcl 1 Mg Vial) 1 mg SUBCUT Q20M PRN PRN Reason: BG <70 AND UNRESPONSIVE Glucose (Glucose Gel 15 Gm Gel..Gram.) 15 gm PO Q15M PRN PRN Reason: BG <70 AND RESPONSIVE Last Admin: 01/30/23 03:12 Dose: 15 gm Insulin Glargine (Insulin Glargine,Hum.Rec.Anlog 100 Unit/Ml 10 Ml Vial) 50 unit SUBCUT BEDTIME [facility] Last Admin: 03/30/23 21:29 Dose: 50 unit Insulin Human Lispro (Insulin Lispro 100 Unit/Ml 3 Ml Vial) 0 unit SUBCUT TIDAC [facility]; Protocol Last Admin: 03/31/23 08:21 Dose: 7 unit Levothyroxine Sodium (Levothyroxine Sodium 75 Mcg Tablet) 75 mcg PO DAILY@0630 [facility] Last Admin: 03/31/23 06:25 Dose: 75 mcg Lidocaine (Lidocaine 4 % Patch Adh..Patch) 1 patch TRANSDERMA DAILY [facility]; Protocol Last Admin: 03/30/23 08:15 Dose: 1 patch Lidocaine (Lidocaine 4 % Patch Adh..Patch) 1 patch TRANSDERMA DAILY [facility]; Protocol Last Admin: 03/30/23 08:14 Dose: 1 patch Loperamide HCl (Loperamide Hcl 2 Mg Capsule) 2 mg PO Q6H PRN PRN Reason: diarrhea Last Admin: 03/19/23 17:40 Dose: 2 mg Magnesium Hydroxide (Milk Of Magnesia 30 Ml Oral.Susp) 30 ml PO DAILY PRN PRN Reason: Constipation Magnesium Hydroxide (Milk Of Magnesia 30 Ml Oral.Susp) 30 ml PO DAILY PRN PRN Reason: Constipation Memantine (Memantine Hcl 10 Mg Tablet) 10 mg PO BID [facility] Last Admin: 03/31/23 08:19 Dose: 10 mg Metoprolol Tartrate (Metoprolol Tartrate 25 Mg Tablet) 25 mg PO DAILY [facility]; Protocol Last Admin: 03/31/23 08:20 Dose: 25 mg Quetiapine Fumarate (Quetiapine Fumarate 50 Mg Tablet) 50 mg PO Q6H PRN PRN Reason: agitation Last Admin: 02/26/23 00:10 Dose: 50 mg Sodium Biphosphate/Sodium Phosphate (Sodium Phosphate,[place]-Dibasic 133 Ml Enema) 133 ml [place] DAILY PRN PRN Reason: Constipation Trazodone HCl (Trazodone Hcl 50 Mg Tablet) 50 mg PO BEDTIME PRN PRN Reason: Insomnia Last Admin: 03/30/23 01:30 Dose: 50 mg Valsartan (Valsartan 80 Mg Tablet) 80 mg PO BEDTIME [facility]; Protocol Last Admin: 03/30/23 21:13 Dose: 80 mg Allergies Allergies Allergy/AdvReac Type Severity Reaction Status Date / Time aspirin [ASPIRIN] Allergy Unknown UNKNOWN Verified 01/01/23 09:43 Assessment & Plan Assessment & Plan (1) Major neurocognitive disorder: Status: Acute Code(s): F03.90 - Unspecified dementia, unspecified severity, without behavioral disturbance, psychotic disturbance, mood disturbance, and anxiety (2) Mood disorder: Status: Acute Code(s): F39 - Unspecified mood [affective] disorder Plan Ms. Landis is a 67 year-old woman with hx of Mood Disorder (untreated for most of her life) and neurocognitive disorder who was brought via EMS from [facility] due to increase verbal aggression towards roommate and one of their staff. Pt is known to this scientific technical writer through previous assessment for similar presentation. Pt presents as calmer, she does admit to being verbally abusive, although denies any intent to harm self or others. She does lack the insight into how her behaviors affect others and her relationships with others. This tendency to have difficulty seeing other people's need per daughter has been life long. Pt presents with tendency to be irritable, at times explosive but not physically aggressive. She was started back in September on low dose of seroquel but no further medication adjustments have been made to manage these symptoms, which are disruptive but not life threatening nor at imminent risk of harm to self or others. As consequence of minimal intervention in the community, pt has had more frequent ED visits here and at [facility]. We discussed risks, benefits and alternative treatment options, pt agrees to start mood stabilizer for impulsive, explosive behaviors. We also discussed switching seroquel to risperidone. Pt is orientation has been intact all along. PLAN 01/20 schedule trazodone 50mg po qhs for sleep. 01/21 continue tx. depakote levels scheduled for tomorrow AM with ammonia levels. 01/22 trough depakote level 75, ammonia 41. continue tx. continue tx 01/24 continue tx. 01/25 continue tx. 01/26 continue tx. 01/27: continue current mgmt. 01/28: continue current mgmt. 01/29 continue tx. 01/30 continue tx. 01/31 continues tx-continue monitor bilat LE- doppler did not show DVT. 02/01: No change in medications, continue current plan of care. 02/02: Continue current plan. 02/03: Continue current plans and regimen 02/04 continue tx. 02/05 continue tx. 02/06 continue tx. 02/07 continue tx. 02/09: no changes 02/10 continue tx. 02/11 continue tx. 02/12 continue tx. 02/13 continue tx. 02/14 continue tx. awaiting placement. 02/15: Continue current treatment plan. 02/16: Continue current plan. 02/17 continue tx. 02/18 continue tx. 02/19 continue tx. 02/20 continue tx. 02/21 continue tx. 02/22: Continue current plans and regimen 02/23: Continue current plans and regimen 02/24 continue tx 02/25 continue tx. 02/26 continue tx. 02/27 continue tx. 02/28 continue tx. 03/01 continue same treatment 03/02 continue same treatment 03/03 continue tx. 03/04 continue tx. awaiting placement 03/05 continue tx. 03/06 continue tx. awaiting placement. 03/07 continue tx. 03/08: received oxycodone 5, ativan 1 mg this morning for what appears to be lower back spasm. try flexeril 5 mg one time. otherwise continue current mgmt. 03/09: no c/o back pain today. calm, cooperative. no behavioral issues. asking when she will be discharging. continue current mgmt. 03/10 continue tx. 03/11 continue tx. 03/12 continue tx. 03/13 continue tx. 03/14 continue tx. 03/15: Continue current management and treatment plan. 03/16 continue tx. 03/17- continues tx. will add lidocaine back pain. 03/18 continue tx. 03/19 continue tx. 03/20 continue same treatment 03/21 continue same treatment 03/22 continue tx. 03/23 continue tx. 03/24 continue tx. 03/25 continue tx. 03/26 continue tx. 03/27 continue tx. 03/28 continue treatment, waiting for placement 03/30/23: No changes 03/31 continue treatment Reason for continued inpatient stay Substantial Risk for: inability to function, rapid decompensation and med/psych decompensation Time Spent With Patient Time: Total time managing care of this patient today ___20_ minutes.
[2023-03-31 11:13] LABS: Glucose, Whole Blood 276 mg/dL (60-115)
[2023-03-31] MEDS: Gabapentin 600 MG TABLET PO ×2 (13:43→20:39)
[2023-03-31] MEDS: Acetaminophen 325 MG TABLET 650 MG PO (14:25)
[2023-03-31 16:24] LABS: Glucose, Whole Blood 316 mg/dL (60-115)
[2023-03-31 18:00] VITALS: BP 145/67; PULSE 65; RESP 18; TEMP 36.3; O2SAT 96
[2023-03-31 20:27] LABS: Glucose, Whole Blood 322 mg/dL (60-115)
[2023-03-31] MEDS: Atorvastatin Calcium 20 MG TABLET PO (20:39)
[2023-03-31] MEDS: Donepezil HCl 10 MG TABLET PO (20:39)
[2023-03-31] MEDS: Divalproex Sodium 500 MG TABLET.DR PO (20:39)
[2023-03-31] MEDS: Valsartan 80 MG TABLET PO (20:39)
[2023-03-31] MEDS: Insulin Glargine,Hum.rec.anlog 100 UNIT/ML 10 ML VIAL 50 UNIT SUBCUT (20:44)
[2023-04-01] MEDS: Levothyroxine Sodium 75 MCG TABLET PO (06:12)
[2023-04-01 07:00] LABS: Glucose, Whole Blood 96 mg/dL (60-115)
[2023-04-01 08:53] VITALS: BP 136/60; PULSE 70; RESP 16; TEMP 36.4; O2SAT 96
[2023-04-01] MEDS: Clopidogrel Bisulfate 75 MG TABLET PO (09:01)
[2023-04-01] MEDS: Acetaminophen 325 MG TABLET 650 MG PO (09:01)
[2023-04-01] MEDS: Memantine HCl 10 MG TABLET PO ×2 (09:01→20:40)
[2023-04-01] MEDS: Divalproex Sodium 250 MG TABLET.DR PO (09:01)
[2023-04-01] MEDS: Escitalopram Oxalate 10 MG TABLET PO (09:01)
[2023-04-01] MEDS: Metoprolol Tartrate 25 MG TABLET PO (09:01)
[2023-04-01] MEDS: Lidocaine 4 % Patch ADH..PATCH 1 PATCH TRANSDERMA ×2 (09:05→09:07)
[2023-04-01] MEDS: Loperamide HCl 2 MG CAPSULE 4 MG PO (11:09)
[2023-04-01 11:17] LABS: Glucose, Whole Blood 183 mg/dL (60-115)
[2023-04-01] MEDS: Insulin Lispro 100 UNIT/ML 3 ML VIAL SUBCUT ×2 (11:31→16:39)
--- NOTE | 2023-04-01 13:13 | HO.PSYCHPN ---
Subjective Subjective Date of Service: 04/01/23 Reason For Visit: Depression Subjective Notes: Conditional Voluntary Interim History: The nursing staff reported the patient had been visible in the unit, attending to all the groups. She ate well and slept well, fully compliant with treatment. On interview the patient denies new symptoms, waiting for placement. Mental Status Exam Mental Status Exam Patient Appearance: Appropriate Patient Orientation: Person and Situation Level of Consciousness: Awake and Appropriate Patient Behavior: Guarded and Passive Mood Description: Withdrawn Affect Description: Constricted Patient Cognition Impaired: Yes Ability to Follow Directions: Good Speech Pattern: Clear Hallucinations: None Delusions: Not Present Thought Process: Distracted and Linear Thought Content: positive for [place] and positive for Poverty of Content Judgement: Fair Diagnostics Vital Signs (24Hr): Vital Signs - 24 hr 03/31/23 18:00 04/01/23 08:53 Temperature 97.3 F 97.5 F Pulse Rate 65 70 Respiratory Rate 18 16 Blood Pressure 145/67 H 136/60 Pulse Oximetry 96 96 Oxygen Delivery Method Room Air Room Air BMI result Body Mass Index 28.4 Labs 01/07/23 17:49 01/07/23 17:49 Labs: Laboratory Results - last 48 hr 03/30/23 03/30/23 03/30/23 16:11 21:10 23:32 POC Glucose 243 H 337 H 259 H 03/31/23 03/31/23 03/31/23 06:30 11:08 16:19 POC Glucose 227 H 276 H 316 H 03/31/23 04/01/23 04/01/23 20:16 06:12 11:08 POC Glucose 322 H 96 183 H Imaging Radiology Impressions: ITS Impressions Venous Duplex 01/30/23 16:02 IMPRESSION: No DVT demonstrated in the bilateral lower extremity. Medications Medications Current Medications Acetaminophen (Acetaminophen 325 Mg Tablet) 650 mg PO Q6H PRN PRN Reason: Headache/Pain Mild Scale (1-3) Last Admin: 04/01/23 09:01 Dose: 650 mg Al Hydroxide/Mg Hydroxide (Magnesium Hydrox/Alum Hydrox 30 Ml Oral.Susp) 30 ml PO Q6H PRN PRN Reason: Heartburn/Nausea Last Admin: 02/10/23 22:17 Dose: 30 ml Artificial Tears (Artificial Tears 15 Ml Drops) 1 drop EYE-BOTH Q4H PRN PRN Reason: Dry Eyes Atorvastatin Calcium (Atorvastatin Calcium 20 Mg Tablet) 20 mg PO BEDTIME [facility] Last Admin: 03/31/23 20:39 Dose: 20 mg Bisacodyl (Bisacodyl 10 Mg Supp.Rect) 10 mg [place] DAILY PRN PRN Reason: Constipation Clopidogrel Bisulfate (Clopidogrel Bisulfate 75 Mg Tablet) 75 mg PO DAILY [facility] Last Admin: 04/01/23 09:01 Dose: 75 mg Divalproex Sodium (Divalproex Sodium 500 Mg Tablet.) 500 mg PO BEDTIME [facility] Last Admin: 03/31/23 20:39 Dose: 500 mg Divalproex Sodium (Divalproex Sodium 250 Mg Tablet.) 250 mg PO DAILY [facility] Last Admin: 04/01/23 09:01 Dose: 250 mg Donepezil HCl (Donepezil Hcl 10 Mg Tablet) 10 mg PO BEDTIME [facility] Last Admin: 03/31/23 20:39 Dose: 10 mg Escitalopram Oxalate (Escitalopram Oxalate 10 Mg Tablet) 10 mg PO DAILY [facility] Last Admin: 04/01/23 09:01 Dose: 10 mg Gabapentin (Gabapentin 600 Mg Tablet) 600 mg PO BEDTIME [facility] Last Admin: 03/31/23 20:39 Dose: 600 mg Gabapentin (Gabapentin 600 Mg Tablet) 600 mg PO DAILY@1300 [facility] Last Admin: 03/31/23 13:43 Dose: 600 mg Glucagon (Glucagon Hcl 1 Mg Vial) 1 mg SUBCUT Q20M PRN PRN Reason: BG <70 AND UNRESPONSIVE Glucose (Glucose Gel 15 Gm Gel..Gram.) 15 gm PO Q15M PRN PRN Reason: BG <70 AND RESPONSIVE Last Admin: 01/30/23 03:12 Dose: 15 gm Insulin Glargine (Insulin Glargine,Hum.Rec.Anlog 100 Unit/Ml 10 Ml Vial) 50 unit SUBCUT BEDTIME [facility] Last Admin: 03/31/23 20:44 Dose: 50 unit Insulin Human Lispro (Insulin Lispro 100 Unit/Ml 3 Ml Vial) 0 unit SUBCUT TIDAC [facility]; Protocol Last Admin: 04/01/23 11:31 Dose: 5 unit Levothyroxine Sodium (Levothyroxine Sodium 75 Mcg Tablet) 75 mcg PO DAILY@0630 [facility] Last Admin: 04/01/23 06:12 Dose: 75 mcg Lidocaine (Lidocaine 4 % Patch Adh..Patch) 1 patch TRANSDERMA DAILY [facility]; Protocol Last Admin: 04/01/23 09:05 Dose: 1 patch Lidocaine (Lidocaine 4 % Patch Adh..Patch) 1 patch TRANSDERMA DAILY [facility]; Protocol Last Admin: 04/01/23 09:07 Dose: 1 patch Loperamide HCl (Loperamide Hcl 2 Mg Capsule) 2 mg PO Q6H PRN PRN Reason: diarrhea Last Admin: 03/19/23 17:40 Dose: 2 mg Loperamide HCl (Loperamide Hcl 2 Mg Capsule) 4 mg PO Q4H PRN PRN Reason: Diarrhea Last Admin: 04/01/23 11:09 Dose: 4 mg Magnesium Hydroxide (Milk Of Magnesia 30 Ml Oral.Susp) 30 ml PO DAILY PRN PRN Reason: Constipation Magnesium Hydroxide (Milk Of Magnesia 30 Ml Oral.Susp) 30 ml PO DAILY PRN PRN Reason: Constipation Memantine (Memantine Hcl 10 Mg Tablet) 10 mg PO BID [facility] Last Admin: 04/01/23 09:01 Dose: 10 mg Metoprolol Tartrate (Metoprolol Tartrate 25 Mg Tablet) 25 mg PO DAILY [facility]; Protocol Last Admin: 04/01/23 09:01 Dose: 25 mg Quetiapine Fumarate (Quetiapine Fumarate 50 Mg Tablet) 50 mg PO Q6H PRN PRN Reason: agitation Last Admin: 02/26/23 00:10 Dose: 50 mg Sodium Biphosphate/Sodium Phosphate (Sodium Phosphate,[place]-Dibasic 133 Ml Enema) 133 ml [place] DAILY PRN PRN Reason: Constipation Trazodone HCl (Trazodone Hcl 50 Mg Tablet) 50 mg PO BEDTIME PRN PRN Reason: Insomnia Last Admin: 03/30/23 01:30 Dose: 50 mg Valsartan (Valsartan 80 Mg Tablet) 80 mg PO BEDTIME [facility]; Protocol Last Admin: 03/31/23 20:39 Dose: 80 mg Allergies Allergies Allergy/AdvReac Type Severity Reaction Status Date / Time aspirin [ASPIRIN] Allergy Unknown UNKNOWN Verified 01/01/23 09:43 Assessment & Plan Assessment & Plan (1) Major neurocognitive disorder: Status: Acute Code(s): F03.90 - Unspecified dementia, unspecified severity, without behavioral disturbance, psychotic disturbance, mood disturbance, and anxiety (2) Mood disorder: Status: Acute Code(s): F39 - Unspecified mood [affective] disorder Plan Ms. Landis is a 67 year-old woman with hx of Mood Disorder (untreated for most of her life) and neurocognitive disorder who was brought via EMS from [facility] due to increase verbal aggression towards roommate and one of their staff. Pt is known to this automatic typewriter inspector through previous assessment for similar presentation. Pt presents as calmer, she does admit to being verbally abusive, although denies any intent to harm self or others. She does lack the insight into how her behaviors affect others and her relationships with others. This tendency to have difficulty seeing other people's need per daughter has been life long. Pt presents with tendency to be irritable, at times explosive but not physically aggressive. She was started back in September on low dose of seroquel but no further medication adjustments have been made to manage these symptoms, which are disruptive but not life threatening nor at imminent risk of harm to self or others. As consequence of minimal intervention in the community, pt has had more frequent ED visits here and at [facility]. We discussed risks, benefits and alternative treatment options, pt agrees to start mood stabilizer for impulsive, explosive behaviors. We also discussed switching seroquel to risperidone. Pt is orientation has been intact all along. PLAN 01/20 schedule trazodone 50mg po qhs for sleep. 01/21 continue tx. depakote levels scheduled for tomorrow AM with ammonia levels. 01/22 trough depakote level 75, ammonia 41. continue tx. continue tx 01/24 continue tx. 01/25 continue tx. 01/26 continue tx. 01/27: continue current mgmt. 01/28: continue current mgmt. 01/29 continue tx. 01/30 continue tx. 01/31 continues tx-continue monitor bilat LE- doppler did not show DVT. 02/01: No change in medications, continue current plan of care. 02/02: Continue current plan. 02/03: Continue current plans and regimen 02/04 continue tx. 02/05 continue tx. 02/06 continue tx. 02/07 continue tx. 02/09: no changes 02/10 continue tx. 02/11 continue tx. 02/12 continue tx. 02/13 continue tx. 02/14 continue tx. awaiting placement. 02/15: Continue current treatment plan. 02/16: Continue current plan. 02/17 continue tx. 02/18 continue tx. 02/19 continue tx. 02/20 continue tx. 02/21 continue tx. 02/22: Continue current plans and regimen 02/23: Continue current plans and regimen 02/24 continue tx 02/25 continue tx. 02/26 continue tx. 02/27 continue tx. 02/28 continue tx. 03/01 continue same treatment 03/02 continue same treatment 03/03 continue tx. 03/04 continue tx. awaiting placement 03/05 continue tx. 03/06 continue tx. awaiting placement. 03/07 continue tx. 03/08: received oxycodone 5, ativan 1 mg this morning for what appears to be lower back spasm. try flexeril 5 mg one time. otherwise continue current mgmt. 03/09: no c/o back pain today. calm, cooperative. no behavioral issues. asking when she will be discharging. continue current mgmt. 03/10 continue tx. 03/11 continue tx. 03/12 continue tx. 03/13 continue tx. 03/14 continue tx. 03/15: Continue current management and treatment plan. 03/16 continue tx. 03/17- continues tx. will add lidocaine back pain. 03/18 continue tx. 03/19 continue tx. 03/20 continue same treatment 03/21 continue same treatment 03/22 continue tx. 03/23 continue tx. 03/24 continue tx. 03/25 continue tx. 03/26 continue tx. 03/27 continue tx. 03/28 continue treatment, waiting for placement 03/30/23: No changes 03/31 continue treatment 04/01 continue treatment Reason for continued inpatient stay Substantial Risk for: inability to function, rapid decompensation and med/psych decompensation Time Spent With Patient Time: Total time managing care of this patient today __20__ minutes.
[2023-04-01] MEDS: Gabapentin 600 MG TABLET PO ×2 (13:50→20:41)
[2023-04-01 16:23] LABS: Glucose, Whole Blood 333 mg/dL (60-115)
[2023-04-01 18:00] VITALS: BP 124/60; PULSE 66; RESP 16; TEMP 36.1; O2SAT 97
[2023-04-01 20:05] LABS: Glucose, Whole Blood 321 mg/dL (60-115)
[2023-04-01] MEDS: Atorvastatin Calcium 20 MG TABLET PO (20:39)
[2023-04-01] MEDS: Valsartan 80 MG TABLET PO (20:39)
[2023-04-01] MEDS: Donepezil HCl 10 MG TABLET PO (20:41)
[2023-04-01] MEDS: Divalproex Sodium 500 MG TABLET.DR PO (20:41)
[2023-04-01] MEDS: Insulin Glargine,Hum.rec.anlog 100 UNIT/ML 10 ML VIAL 50 UNIT SUBCUT (20:42)
[2023-04-02] MEDS: Levothyroxine Sodium 75 MCG TABLET PO (06:20)
[2023-04-02 06:49] LABS: Glucose, Whole Blood 135 mg/dL (60-115)
[2023-04-02 08:00] VITALS: BP 142/70; PULSE 78; RESP 16; TEMP 36.3; O2SAT 96
[2023-04-02] MEDS: Divalproex Sodium 250 MG TABLET.DR PO (08:15)
[2023-04-02] MEDS: Metoprolol Tartrate 25 MG TABLET PO (08:15)
[2023-04-02] MEDS: Clopidogrel Bisulfate 75 MG TABLET PO (08:15)
[2023-04-02] MEDS: Memantine HCl 10 MG TABLET PO ×2 (08:15→20:07)
[2023-04-02] MEDS: Escitalopram Oxalate 10 MG TABLET PO (08:15)
[2023-04-02] MEDS: Lidocaine 4 % Patch ADH..PATCH 1 PATCH TRANSDERMA ×2 (08:18→08:19)
--- NOTE | 2023-04-02 11:18 | HO.PSYCHPN ---
Subjective Subjective Date of Service: 04/02/23 Reason For Visit: Depression Subjective Notes: Conditional Voluntary Interim History: The nursing staff reported the patient had been pleasant, cooperative attending to groups fully compliant with treatment. On interview the patient denies new symptoms, waiting for placement. Mental Status Exam Mental Status Exam Patient Appearance: Well Grooomed and Appropriate Patient Orientation: Person and Situation Level of Consciousness: Awake and Appropriate Patient Behavior: Appropriate and Cooperative Mood Description: Calm Affect Description: Constricted Patient Cognition Impaired: Yes Ability to Follow Directions: Good Speech Pattern: Clear Hallucinations: None Delusions: Not Present Thought Process: Linear and Slowed Thinking Thought Content: positive for [place], positive for Circumstantial and positive for [place] of Content Judgement: Fair Diagnostics Vital Signs (24Hr): Vital Signs - 24 hr 04/01/23 18:00 04/02/23 08:00 Temperature 97 F 97.4 F Pulse Rate 66 78 Respiratory Rate 16 16 Blood Pressure 124/60 142/70 H Pulse Oximetry 97 96 Oxygen Delivery Method Room Air Room Air BMI result Body Mass Index 28.4 Labs 01/07/23 17:49 01/07/23 17:49 Labs: Laboratory Results - last 48 hr 03/31/23 03/31/23 04/01/23 16:19 20:16 06:12 POC Glucose 316 H 322 H 96 04/01/23 04/01/23 04/01/23 11:08 16:16 19:36 POC Glucose 183 H 333 H 321 H 04/02/23 06:34 POC Glucose 135 H Imaging Radiology Impressions: ITS Impressions Venous Duplex 01/30/23 16:02 IMPRESSION: No DVT demonstrated in the bilateral lower extremity. Medications Medications Current Medications Acetaminophen (Acetaminophen 325 Mg Tablet) 650 mg PO Q6H PRN PRN Reason: Headache/Pain Mild Scale (1-3) Last Admin: 04/01/23 09:01 Dose: 650 mg Al Hydroxide/Mg Hydroxide (Magnesium Hydrox/Alum Hydrox 30 Ml Oral.Susp) 30 ml PO Q6H PRN PRN Reason: Heartburn/Nausea Last Admin: 02/10/23 22:17 Dose: 30 ml Artificial Tears (Artificial Tears 15 Ml Drops) 1 drop EYE-BOTH Q4H PRN PRN Reason: Dry Eyes Atorvastatin Calcium (Atorvastatin Calcium 20 Mg Tablet) 20 mg PO BEDTIME [facility] Last Admin: 04/01/23 20:39 Dose: 20 mg Bisacodyl (Bisacodyl 10 Mg Supp.Rect) 10 mg TN DAILY PRN PRN Reason: Constipation Clopidogrel Bisulfate (Clopidogrel Bisulfate 75 Mg Tablet) 75 mg PO DAILY [facility] Last Admin: 04/02/23 08:15 Dose: 75 mg Divalproex Sodium (Divalproex Sodium 500 Mg Tablet.Dr) 500 mg PO BEDTIME [facility] Last Admin: 04/01/23 20:41 Dose: 500 mg Divalproex Sodium (Divalproex Sodium 250 Mg Tablet.) 250 mg PO DAILY [facility] Last Admin: 04/02/23 08:15 Dose: 250 mg Donepezil HCl (Donepezil Hcl 10 Mg Tablet) 10 mg PO BEDTIME [facility] Last Admin: 04/01/23 20:41 Dose: 10 mg Escitalopram Oxalate (Escitalopram Oxalate 10 Mg Tablet) 10 mg PO DAILY [facility] Last Admin: 04/02/23 08:15 Dose: 10 mg Gabapentin (Gabapentin 600 Mg Tablet) 600 mg PO BEDTIME [facility] Last Admin: 04/01/23 20:41 Dose: 600 mg Gabapentin (Gabapentin 600 Mg Tablet) 600 mg PO DAILY@1300 [facility] Last Admin: 04/01/23 13:50 Dose: 600 mg Glucagon (Glucagon Hcl 1 Mg Vial) 1 mg SUBCUT Q20M PRN PRN Reason: BG <70 AND UNRESPONSIVE Glucose (Glucose Gel 15 Gm Gel..Gram.) 15 gm PO Q15M PRN PRN Reason: BG <70 AND RESPONSIVE Last Admin: 01/30/23 03:12 Dose: 15 gm Insulin Glargine (Insulin Glargine,Hum.Rec.Anlog 100 Unit/Ml 10 Ml Vial) 50 unit SUBCUT BEDTIME [facility] Last Admin: 04/01/23 20:42 Dose: 50 unit Insulin Human Lispro (Insulin Lispro 100 Unit/Ml 3 Ml Vial) 0 unit SUBCUT TIDAC [facility]; Protocol Last Admin: 04/02/23 08:17 Dose: Not Given Levothyroxine Sodium (Levothyroxine Sodium 75 Mcg Tablet) 75 mcg PO DAILY@0630 [facility] Last Admin: 04/02/23 06:20 Dose: 75 mcg Lidocaine (Lidocaine 4 % Patch Adh..Patch) 1 patch TRANSDERMA DAILY [facility]; Protocol Last Admin: 04/02/23 08:18 Dose: 1 patch Lidocaine (Lidocaine 4 % Patch Adh..Patch) 1 patch TRANSDERMA DAILY [facility]; Protocol Last Admin: 04/02/23 08:19 Dose: 1 patch Loperamide HCl (Loperamide Hcl 2 Mg Capsule) 2 mg PO Q6H PRN PRN Reason: diarrhea Last Admin: 03/19/23 17:40 Dose: 2 mg Loperamide HCl (Loperamide Hcl 2 Mg Capsule) 4 mg PO Q4H PRN PRN Reason: Diarrhea Last Admin: 04/01/23 11:09 Dose: 4 mg Magnesium Hydroxide (Milk Of Magnesia 30 Ml Oral.Susp) 30 ml PO DAILY PRN PRN Reason: Constipation Magnesium Hydroxide (Milk Of Magnesia 30 Ml Oral.Susp) 30 ml PO DAILY PRN PRN Reason: Constipation Memantine (Memantine Hcl 10 Mg Tablet) 10 mg PO BID [facility] Last Admin: 04/02/23 08:15 Dose: 10 mg Metoprolol Tartrate (Metoprolol Tartrate 25 Mg Tablet) 25 mg PO DAILY [facility]; Protocol Last Admin: 04/02/23 08:15 Dose: 25 mg Quetiapine Fumarate (Quetiapine Fumarate 50 Mg Tablet) 50 mg PO Q6H PRN PRN Reason: agitation Last Admin: 02/26/23 00:10 Dose: 50 mg Sodium Biphosphate/Sodium Phosphate (Sodium Phosphate,[place]-Dibasic 133 Ml Enema) 133 ml TN DAILY PRN PRN Reason: Constipation Trazodone HCl (Trazodone Hcl 50 Mg Tablet) 50 mg PO BEDTIME PRN PRN Reason: Insomnia Last Admin: 03/30/23 01:30 Dose: 50 mg Valsartan (Valsartan 80 Mg Tablet) 80 mg PO BEDTIME [facility]; Protocol Last Admin: 04/01/23 20:39 Dose: 80 mg Allergies Allergies Allergy/AdvReac Type Severity Reaction Status Date / Time aspirin [ASPIRIN] Allergy Unknown UNKNOWN Verified 01/01/23 09:43 Assessment & Plan Assessment & Plan (1) Major neurocognitive disorder: Status: Acute Code(s): F03.90 - Unspecified dementia, unspecified severity, without behavioral disturbance, psychotic disturbance, mood disturbance, and anxiety (2) Mood disorder: Status: Acute Code(s): F39 - Unspecified mood [affective] disorder Plan Ms. Landis is a 67 year-old woman with hx of Mood Disorder (untreated for most of her life) and neurocognitive disorder who was brought via EMS from [facility] due to increase verbal aggression towards roommate and one of their staff. Pt is known to this news writer through previous assessment for similar presentation. Pt presents as calmer, she does admit to being verbally abusive, although denies any intent to harm self or others. She does lack the insight into how her behaviors affect others and her relationships with others. This tendency to have difficulty seeing other people's need per daughter has been life long. Pt presents with tendency to be irritable, at times explosive but not physically aggressive. She was started back in September on low dose of seroquel but no further medication adjustments have been made to manage these symptoms, which are disruptive but not life threatening nor at imminent risk of harm to self or others. As consequence of minimal intervention in the community, pt has had more frequent ED visits here and at [facility]. We discussed risks, benefits and alternative treatment options, pt agrees to start mood stabilizer for impulsive, explosive behaviors. We also discussed switching seroquel to risperidone. Pt is orientation has been intact all along. PLAN 01/20 schedule trazodone 50mg po qhs for sleep. 01/21 continue tx. depakote levels scheduled for tomorrow AM with ammonia levels. 01/22 trough depakote level 75, ammonia 41. continue tx. continue tx 01/24 continue tx. 01/25 continue tx. 01/26 continue tx. 01/27: continue current mgmt. 01/28: continue current mgmt. 01/29 continue tx. 01/30 continue tx. 01/31 continues tx-continue monitor bilat LE- doppler did not show DVT. 02/01: No change in medications, continue current plan of care. 02/02: Continue current plan. 02/03: Continue current plans and regimen 02/04 continue tx. 02/05 continue tx. 02/06 continue tx. 02/07 continue tx. 02/09: no changes 02/10 continue tx. 02/11 continue tx. 02/12 continue tx. 02/13 continue tx. 02/14 continue tx. awaiting placement. 02/15: Continue current treatment plan. 02/16: Continue current plan. 02/17 continue tx. 02/18 continue tx. 02/19 continue tx. 02/20 continue tx. 02/21 continue tx. 02/22: Continue current plans and regimen 02/23: Continue current plans and regimen 02/24 continue tx 02/25 continue tx. 02/26 continue tx. 02/27 continue tx. 02/28 continue tx. 03/01 continue same treatment 03/02 continue same treatment 03/03 continue tx. 03/04 continue tx. awaiting placement 03/05 continue tx. 03/06 continue tx. awaiting placement. 03/07 continue tx. 03/08: received oxycodone 5, ativan 1 mg this morning for what appears to be lower back spasm. try flexeril 5 mg one time. otherwise continue current mgmt. 03/09: no c/o back pain today. calm, cooperative. no behavioral issues. asking when she will be discharging. continue current mgmt. 03/10 continue tx. 03/11 continue tx. 03/12 continue tx. 03/13 continue tx. 03/14 continue tx. 03/15: Continue current management and treatment plan. 03/16 continue tx. 03/17- continues tx. will add lidocaine back pain. 03/18 continue tx. 03/19 continue tx. 03/20 continue same treatment 03/21 continue same treatment 03/22 continue tx. 03/23 continue tx. 03/24 continue tx. 03/25 continue tx. 03/26 continue tx. 03/27 continue tx. 03/28 continue treatment, waiting for placement 03/30/23: No changes 03/31 continue treatment 04/01 continue treatment 04/02 continue treatment Reason for continued inpatient stay Substantial Risk for: inability to function, rapid decompensation and med/psych decompensation Time Spent With Patient Time: Total time managing care of this patient today __20__ minutes.
[2023-04-02 11:33] LABS: Glucose, Whole Blood 450 mg/dL (60-115)
[2023-04-02 11:33] LABS: Glucose, Whole Blood 445 mg/dL (60-115)
[2023-04-02] MEDS: Insulin Lispro 100 UNIT/ML 3 ML VIAL SUBCUT ×2 (11:40→16:56)
--- NOTE | 2023-04-02 11:42 | PC.NURSE ---
POC before lunch 450. Dr Donnie Hodges notified, stated, to give the coverage scheduled. Lispro Ins. 13 units administered. No signs of hyperglycemia noted. Will continue to monitor.
[2023-04-02] MEDS: Gabapentin 600 MG TABLET PO ×2 (13:07→20:07)
[2023-04-02 16:12] LABS: Glucose, Whole Blood 283 mg/dL (60-115)
--- NOTE | 2023-04-02 17:21 | PC.NURSE ---
POC 283 before supper. Pt covered with Lispro Ins. per sliding scale as scheduled. No signs of diabetic reaction noted. Dr Mendenhall notified.
[2023-04-02 19:57] LABS: Glucose, Whole Blood 298 mg/dL (60-115)
[2023-04-02 20:00] VITALS: BP 139/59; PULSE 67; RESP 16; TEMP 36.7; O2SAT 95
[2023-04-02] MEDS: Valsartan 80 MG TABLET PO (20:07)
[2023-04-02] MEDS: Divalproex Sodium 500 MG TABLET.DR PO (20:07)
[2023-04-02] MEDS: Donepezil HCl 10 MG TABLET PO (20:07)
[2023-04-02] MEDS: Atorvastatin Calcium 20 MG TABLET PO (20:07)
[2023-04-02] MEDS: Insulin Glargine,Hum.rec.anlog 100 UNIT/ML 10 ML VIAL 50 UNIT SUBCUT (20:53)
[2023-04-03] MEDS: Levothyroxine Sodium 75 MCG TABLET PO (06:25)
[2023-04-03 06:33] LABS: Glucose, Whole Blood 160 mg/dL (60-115)
[2023-04-03 07:45] VITALS: BP 160/67; PULSE 63; RESP 18; TEMP 36.4; O2SAT 98
[2023-04-03] MEDS: Insulin Lispro 100 UNIT/ML 3 ML VIAL SUBCUT ×3 (07:58→16:30)
[2023-04-03] MEDS: Metoprolol Tartrate 25 MG TABLET PO (07:59)
[2023-04-03] MEDS: Memantine HCl 10 MG TABLET PO ×2 (07:59→20:56)
[2023-04-03] MEDS: Escitalopram Oxalate 10 MG TABLET PO (07:59)
[2023-04-03] MEDS: Divalproex Sodium 250 MG TABLET.DR PO (07:59)
[2023-04-03] MEDS: Clopidogrel Bisulfate 75 MG TABLET PO (07:59)
[2023-04-03] MEDS: Lidocaine 4 % Patch ADH..PATCH 1 PATCH TRANSDERMA ×2 (08:01)
[2023-04-03 11:07] VITALS: BMI 28.4
[2023-04-03 11:20] VITALS: BP 129/60; PULSE 62
[2023-04-03 11:20] LABS: Glucose, Whole Blood 394 mg/dL (60-115)
--- NOTE | 2023-04-03 12:38 | PC.NURSE ---
Dr Hodges notified of POC 394 before lunch.Covered per sliding scale as scheduled. No sins of diabetic reaction noted.
[2023-04-03] MEDS: Gabapentin 600 MG TABLET PO ×2 (12:42→20:56)
--- NOTE | 2023-04-03 12:54 | P.PNPSI_ITS ---
Subjective Subjective Date of Service: 04/03/23 Reason For Visit: Depression Subjective Notes: Conditional Voluntary Interim History: The nursing staff reported the patient had been compliant with treatment she looks brighter have been yesterday he was watching TV and laughing interacting fairly well with his peers. He had been compliant with medications and meals. On interview the patient denies new symptoms, waiting for placement. Mental Status Exam Mental Status Exam Patient Appearance: Appropriate Patient Orientation: Person Level of Consciousness: Awake and Appropriate Patient Behavior: Appropriate and Passive Mood Description: Calm Affect Description: Constricted Patient Cognition Impaired: Yes Ability to Follow Directions: Good Speech Pattern: Clear Hallucinations: None Delusions: Not Present Thought Process: Distracted and Linear Thought Content: positive for [place] and positive for Circumstantial Judgement: Fair Diagnostics Vital Signs (24Hr): Vital Signs - 24 hr 04/02/23 20:00 04/03/23 07:45 04/03/23 11:20 Temperature 98.0 F 97.6 F Pulse Rate 67 63 62 Respiratory Rate 16 18 Blood Pressure 139/59 L 160/67 H 129/60 Pulse Oximetry 95 98 Oxygen Delivery Method Room Air Room Air BMI result Body Mass Index 28.4 Labs 01/07/23 17:49 01/07/23 17:49 Labs: Laboratory Results - last 48 hr 04/01/23 04/01/23 04/02/23 16:16 19:36 06:34 POC Glucose 333 H 321 H 135 H 04/02/23 04/02/23 04/02/23 11:24 11:26 16:07 POC Glucose 445 H* 450 H* 283 H 04/02/23 04/03/23 04/03/23 19:41 06:24 11:07 POC Glucose 298 H 160 H 394 H* Imaging Radiology Impressions: ITS Impressions Venous Duplex 01/30/23 16:02 IMPRESSION: No DVT demonstrated in the bilateral lower extremity. Medications Medications Current Medications Acetaminophen (Acetaminophen 325 Mg Tablet) 650 mg PO Q6H PRN PRN Reason: Headache/Pain Mild Scale (1-3) Last Admin: 04/01/23 09:01 Dose: 650 mg Al Hydroxide/Mg Hydroxide (Magnesium Hydrox/Alum Hydrox 30 Ml Oral.Susp) 30 ml PO Q6H PRN PRN Reason: Heartburn/Nausea Last Admin: 02/10/23 22:17 Dose: 30 ml Artificial Tears (Artificial Tears 15 Ml Drops) 1 drop EYE-BOTH Q4H PRN PRN Reason: Dry Eyes Atorvastatin Calcium (Atorvastatin Calcium 20 Mg Tablet) 20 mg PO BEDTIME [facility] Last Admin: 04/02/23 20:07 Dose: 20 mg Bisacodyl (Bisacodyl 10 Mg Supp.Rect) 10 mg MT DAILY PRN PRN Reason: Constipation Clopidogrel Bisulfate (Clopidogrel Bisulfate 75 Mg Tablet) 75 mg PO DAILY [facility] Last Admin: 04/03/23 07:59 Dose: 75 mg Divalproex Sodium (Divalproex Sodium 500 Mg Tablet.Dr) 500 mg PO BEDTIME [facility] Last Admin: 04/02/23 20:07 Dose: 500 mg Divalproex Sodium (Divalproex Sodium 250 Mg Tablet.Dr) 250 mg PO DAILY [facility] Last Admin: 04/03/23 07:59 Dose: 250 mg Donepezil HCl (Donepezil Hcl 10 Mg Tablet) 10 mg PO BEDTIME [facility] Last Admin: 04/02/23 20:07 Dose: 10 mg Escitalopram Oxalate (Escitalopram Oxalate 10 Mg Tablet) 10 mg PO DAILY [facility] Last Admin: 04/03/23 07:59 Dose: 10 mg Gabapentin (Gabapentin 600 Mg Tablet) 600 mg PO BEDTIME [facility] Last Admin: 04/02/23 20:07 Dose: 600 mg Gabapentin (Gabapentin 600 Mg Tablet) 600 mg PO DAILY@1300 [facility] Last Admin: 04/03/23 12:42 Dose: 600 mg Glucagon (Glucagon Hcl 1 Mg Vial) 1 mg SUBCUT Q20M PRN PRN Reason: BG <70 AND UNRESPONSIVE Glucose (Glucose Gel 15 Gm Gel..Gram.) 15 gm PO Q15M PRN PRN Reason: BG <70 AND RESPONSIVE Last Admin: 01/30/23 03:12 Dose: 15 gm Insulin Glargine (Insulin Glargine,Hum.Rec.Anlog 100 Unit/Ml 10 Ml Vial) 52 unit SUBCUT BEDTIME [facility] Insulin Human Lispro (Insulin Lispro 100 Unit/Ml 3 Ml Vial) 0 unit SUBCUT TIDAC [facility]; Protocol Last Admin: 04/03/23 11:30 Dose: 13 unit Levothyroxine Sodium (Levothyroxine Sodium 75 Mcg Tablet) 75 mcg PO DAILY@0630 [facility] Last Admin: 04/03/23 06:25 Dose: 75 mcg Lidocaine (Lidocaine 4 % Patch Adh..Patch) 1 patch TRANSDERMA DAILY [facility]; Protocol Last Admin: 04/03/23 08:01 Dose: 1 patch Lidocaine (Lidocaine 4 % Patch Adh..Patch) 1 patch TRANSDERMA DAILY [facility]; Protocol Last Admin: 04/03/23 08:01 Dose: 1 patch Loperamide HCl (Loperamide Hcl 2 Mg Capsule) 2 mg PO Q6H PRN PRN Reason: diarrhea Last Admin: 03/19/23 17:40 Dose: 2 mg Loperamide HCl (Loperamide Hcl 2 Mg Capsule) 4 mg PO Q4H PRN PRN Reason: Diarrhea Last Admin: 04/01/23 11:09 Dose: 4 mg Magnesium Hydroxide (Milk Of Magnesia 30 Ml Oral.Susp) 30 ml PO DAILY PRN PRN Reason: Constipation Magnesium Hydroxide (Milk Of Magnesia 30 Ml Oral.Susp) 30 ml PO DAILY PRN PRN Reason: Constipation Memantine (Memantine Hcl 10 Mg Tablet) 10 mg PO BID [facility] Last Admin: 04/03/23 07:59 Dose: 10 mg Metoprolol Tartrate (Metoprolol Tartrate 25 Mg Tablet) 25 mg PO DAILY [facility]; Protocol Last Admin: 04/03/23 07:59 Dose: 25 mg Quetiapine Fumarate (Quetiapine Fumarate 50 Mg Tablet) 50 mg PO Q6H PRN PRN Reason: agitation Last Admin: 02/26/23 00:10 Dose: 50 mg Sodium Biphosphate/Sodium Phosphate (Sodium Phosphate,[place]-Dibasic 133 Ml Enema) 133 ml MT DAILY PRN PRN Reason: Constipation Trazodone HCl (Trazodone Hcl 50 Mg Tablet) 50 mg PO BEDTIME PRN PRN Reason: Insomnia Last Admin: 03/30/23 01:30 Dose: 50 mg Valsartan (Valsartan 80 Mg Tablet) 80 mg PO BEDTIME [facility]; Protocol Last Admin: 04/02/23 20:07 Dose: 80 mg Allergies Allergies Allergy/AdvReac Type Severity Reaction Status Date / Time aspirin [ASPIRIN] Allergy Unknown UNKNOWN Verified 01/01/23 09:43 Assessment & Plan Assessment & Plan (1) Major neurocognitive disorder: Status: Acute Code(s): F03.90 - Unspecified dementia, unspecified severity, without behavioral disturbance, psychotic disturbance, mood disturbance, and anxiety (2) Mood disorder: Status: Acute Code(s): F39 - Unspecified mood [affective] disorder Plan Ms. Landis is a 67 year-old woman with hx of Mood Disorder (untreated for most of her life) and neurocognitive disorder who was brought via EMS [facility] due to increase verbal aggression towards roommate and one of their staff. Pt is known to this bond writer through previous assessment for similar presentation. Pt presents as calmer, she does admit to being verbally abusive, although denies any intent to harm self or others. She does lack the insight into how her behaviors affect others and her relationships with others. This tendency to have difficulty seeing other people's need per daughter has been life long. Pt presents with tendency to be irritable, at times explosive but not physically aggressive. She was started back in September on low dose of seroquel but no further medication adjustments have been made to manage these symptoms, which are disruptive but not life threatening nor at imminent risk of harm to self or others. As consequence of minimal intervention in the community, pt has had more frequent ED visits here and at [facility]. We discussed risks, benefits and alternative treatment options, pt agrees to start mood stabilizer for impulsive, explosive behaviors. We also discussed switching seroquel to risperidone. Pt is orientation has been intact all along. PLAN 01/20 schedule trazodone 50mg po qhs for sleep. 01/21 continue tx. depakote levels scheduled for tomorrow AM with ammonia levels. 01/22 trough depakote level 75, ammonia 41. continue tx. continue tx 01/24 continue tx. 01/25 continue tx. 01/26 continue tx. 01/27: continue current mgmt. 01/28: continue current mgmt. 01/29 continue tx. 01/30 continue tx. 01/31 continues tx-continue monitor bilat LE- doppler did not show DVT. 02/01: No change in medications, continue current plan of care. 02/02: Continue current plan. 02/03: Continue current plans and regimen 02/04 continue tx. 02/05 continue tx. 02/06 continue tx. 02/07 continue tx. 02/09: no changes 02/10 continue tx. 02/11 continue tx. 02/12 continue tx. 02/13 continue tx. 02/14 continue tx. awaiting placement. 02/15: Continue current treatment plan. 02/16: Continue current plan. 02/17 continue tx. 02/18 continue tx. 02/19 continue tx. 02/20 continue tx. 02/21 continue tx. 02/22: Continue current plans and regimen 02/23: Continue current plans and regimen 02/24 continue tx 02/25 continue tx. 02/26 continue tx. 02/27 continue tx. 02/28 continue tx. 03/01 continue same treatment 03/02 continue same treatment 03/03 continue tx. 03/04 continue tx. awaiting placement 03/05 continue tx. 03/06 continue tx. awaiting placement. 03/07 continue tx. 03/08: received oxycodone 5, ativan 1 mg this morning for what appears to be lower back spasm. try flexeril 5 mg one time. otherwise continue current mgmt. 03/09: no c/o back pain today. calm, cooperative. no behavioral issues. asking when she will be discharging. continue current mgmt. 03/10 continue tx. 03/11 continue tx. 03/12 continue tx. 03/13 continue tx. 03/14 continue tx. 03/15: Continue current management and treatment plan. 03/16 continue tx. 03/17- continues tx. will add lidocaine back pain. 03/18 continue tx. 03/19 continue tx. 03/20 continue same treatment 03/21 continue same treatment 03/22 continue tx. 03/23 continue tx. 03/24 continue tx. 03/25 continue tx. 03/26 continue tx. 03/27 continue tx. 03/28 continue treatment, waiting for placement 03/30/23: No changes 03/31 continue treatment 04/01 continue treatment 04/02 continue treatment 04/03 continue treatment Reason for continued inpatient stay Substantial Risk for: inability to function, rapid decompensation and med/psych decompensation Time Spent With Patient Time: Total time managing care of this patient today __20__ minutes.
[2023-04-03 13:11] VITALS: BMI 28.4
[2023-04-03 16:23] LABS: Glucose, Whole Blood 306 mg/dL (60-115)
[2023-04-03 18:00] VITALS: BP 114/55; PULSE 65; RESP 16; TEMP 36.6; O2SAT 96
[2023-04-03 19:59] LABS: Glucose, Whole Blood 210 mg/dL (60-115)
[2023-04-03] MEDS: Insulin Glargine,Hum.rec.anlog 100 UNIT/ML 10 ML VIAL 52 UNIT SUBCUT (20:52)
[2023-04-03] MEDS: Valsartan 80 MG TABLET PO (20:56)
[2023-04-03] MEDS: Divalproex Sodium 500 MG TABLET.DR PO (20:56)
[2023-04-03] MEDS: Donepezil HCl 10 MG TABLET PO (20:56)
[2023-04-03] MEDS: Atorvastatin Calcium 20 MG TABLET PO (20:56)
[2023-04-04] MEDS: Levothyroxine Sodium 75 MCG TABLET PO (06:22)
[2023-04-04 06:55] LABS: Glucose, Whole Blood 120 mg/dL (60-115)
--- NOTE | 2023-04-04 08:02 | P.PNPSI_ITS ---
Subjective Subjective Date of Service: 04/04/23 Reason For Visit: Depression Subjective Notes: Conditional Voluntary Interim History: The nursing staff reported no changes in her mental status, she looks more engageable. On interview the patient denies new symptoms, waiting for placement. Mental Status Exam Mental Status Exam Patient Appearance: Appropriate Patient Orientation: Person and Situation Level of Consciousness: Awake and Appropriate Patient Behavior: Guarded and Passive Mood Description: Withdrawn Affect Description: Calm Patient Cognition Impaired: Yes Ability to Follow Directions: Good Speech Pattern: Clear Hallucinations: None Delusions: Not Present Thought Process: Distracted, Evasive and Slowed Thinking Thought Content: positive for [place] and positive for [place] of Content Judgement: Fair Diagnostics Vital Signs (24Hr): Vital Signs - 24 hr 04/03/23 11:20 04/03/23 18:00 Temperature 97.8 F Pulse Rate 62 65 Respiratory Rate 16 Blood Pressure 129/60 114/55 L Pulse Oximetry 96 Oxygen Delivery Method Room Air BMI result Body Mass Index 28.4 Labs 01/07/23 17:49 01/07/23 17:49 Labs: Laboratory Results - last 48 hr 04/02/23 04/02/23 04/02/23 11:24 11:26 16:07 POC Glucose 445 H* 450 H* 283 H 04/02/23 04/03/23 04/03/23 19:41 06:24 11:07 POC Glucose 298 H 160 H 394 H* 04/03/23 04/03/23 04/04/23 16:08 19:40 06:49 POC Glucose 306 H 210 H 120 H Imaging Radiology Impressions: ITS Impressions Venous Duplex 01/30/23 16:02 IMPRESSION: No DVT demonstrated in the bilateral lower extremity. Medications Medications Current Medications Acetaminophen (Acetaminophen 325 Mg Tablet) 650 mg PO Q6H PRN PRN Reason: Headache/Pain Mild Scale (1-3) Last Admin: 04/01/23 09:01 Dose: 650 mg Al Hydroxide/Mg Hydroxide (Magnesium Hydrox/Alum Hydrox 30 Ml Oral.Susp) 30 ml PO Q6H PRN PRN Reason: Heartburn/Nausea Last Admin: 02/10/23 22:17 Dose: 30 ml Artificial Tears (Artificial Tears 15 Ml Drops) 1 drop EYE-BOTH Q4H PRN PRN Reason: Dry Eyes Atorvastatin Calcium (Atorvastatin Calcium 20 Mg Tablet) 20 mg PO BEDTIME [facility] Last Admin: 04/03/23 20:56 Dose: 20 mg Bisacodyl (Bisacodyl 10 Mg Supp.Rect) 10 mg CA DAILY PRN PRN Reason: Constipation Clopidogrel Bisulfate (Clopidogrel Bisulfate 75 Mg Tablet) 75 mg PO DAILY [facility] Last Admin: 04/03/23 07:59 Dose: 75 mg Divalproex Sodium (Divalproex Sodium 500 Mg Tablet.Dr) 500 mg PO BEDTIME [facility] Last Admin: 04/03/23 20:56 Dose: 500 mg Divalproex Sodium (Divalproex Sodium 250 Mg Tablet.Dr) 250 mg PO DAILY [facility] Last Admin: 04/03/23 07:59 Dose: 250 mg Donepezil HCl (Donepezil Hcl 10 Mg Tablet) 10 mg PO BEDTIME [facility] Last Admin: 04/03/23 20:56 Dose: 10 mg Escitalopram Oxalate (Escitalopram Oxalate 10 Mg Tablet) 10 mg PO DAILY [facility] Last Admin: 04/03/23 07:59 Dose: 10 mg Gabapentin (Gabapentin 600 Mg Tablet) 600 mg PO BEDTIME [facility] Last Admin: 04/03/23 20:56 Dose: 600 mg Gabapentin (Gabapentin 600 Mg Tablet) 600 mg PO DAILY@1300 [facility] Last Admin: 04/03/23 12:42 Dose: 600 mg Glucagon (Glucagon Hcl 1 Mg Vial) 1 mg SUBCUT Q20M PRN PRN Reason: BG <70 AND UNRESPONSIVE Glucose (Glucose Gel 15 Gm Gel..Gram.) 15 gm PO Q15M PRN PRN Reason: BG <70 AND RESPONSIVE Last Admin: 01/30/23 03:12 Dose: 15 gm Insulin Glargine (Insulin Glargine,Hum.Rec.Anlog 100 Unit/Ml 10 Ml Vial) 52 unit SUBCUT BEDTIME [facility] Last Admin: 04/03/23 20:52 Dose: 52 unit Insulin Human Lispro (Insulin Lispro 100 Unit/Ml 3 Ml Vial) 0 unit SUBCUT TIDAC [facility]; Protocol Last Admin: 04/03/23 16:30 Dose: 11 unit Levothyroxine Sodium (Levothyroxine Sodium 75 Mcg Tablet) 75 mcg PO DAILY@0630 [facility] Last Admin: 04/04/23 06:22 Dose: 75 mcg Lidocaine (Lidocaine 4 % Patch Adh..Patch) 1 patch TRANSDERMA DAILY [facility]; Protocol Last Admin: 04/03/23 08:01 Dose: 1 patch Lidocaine (Lidocaine 4 % Patch Adh..Patch) 1 patch TRANSDERMA DAILY [facility]; Protocol Last Admin: 04/03/23 08:01 Dose: 1 patch Loperamide HCl (Loperamide Hcl 2 Mg Capsule) 2 mg PO Q6H PRN PRN Reason: diarrhea Last Admin: 03/19/23 17:40 Dose: 2 mg Loperamide HCl (Loperamide Hcl 2 Mg Capsule) 4 mg PO Q4H PRN PRN Reason: Diarrhea Last Admin: 04/01/23 11:09 Dose: 4 mg Magnesium Hydroxide (Milk Of Magnesia 30 Ml Oral.Susp) 30 ml PO DAILY PRN PRN Reason: Constipation Magnesium Hydroxide (Milk Of Magnesia 30 Ml Oral.Susp) 30 ml PO DAILY PRN PRN Reason: Constipation Memantine (Memantine Hcl 10 Mg Tablet) 10 mg PO BID [facility] Last Admin: 04/03/23 20:56 Dose: 10 mg Metoprolol Tartrate (Metoprolol Tartrate 25 Mg Tablet) 25 mg PO DAILY [facility]; Protocol Last Admin: 04/03/23 07:59 Dose: 25 mg Quetiapine Fumarate (Quetiapine Fumarate 50 Mg Tablet) 50 mg PO Q6H PRN PRN Reason: agitation Last Admin: 02/26/23 00:10 Dose: 50 mg Sodium Biphosphate/Sodium Phosphate (Sodium Phosphate,[place]-Dibasic 133 Ml Enema) 133 ml CA DAILY PRN PRN Reason: Constipation Trazodone HCl (Trazodone Hcl 50 Mg Tablet) 50 mg PO BEDTIME PRN PRN Reason: Insomnia Last Admin: 03/30/23 01:30 Dose: 50 mg Valsartan (Valsartan 80 Mg Tablet) 80 mg PO BEDTIME [facility]; Protocol Last Admin: 04/03/23 20:56 Dose: 80 mg Allergies Allergies Allergy/AdvReac Type Severity Reaction Status Date / Time aspirin [ASPIRIN] Allergy Unknown UNKNOWN Verified 01/01/23 09:43 Assessment & Plan Assessment & Plan (1) Major neurocognitive disorder: Status: Acute Code(s): F03.90 - Unspecified dementia, unspecified severity, without behavioral disturbance, psychotic disturbance, mood disturbance, and anxiety (2) Mood disorder: Status: Acute Code(s): F39 - Unspecified mood [affective] disorder Plan Ms. Landis is a 67 year-old woman with hx of Mood Disorder (untreated for most of her life) and neurocognitive disorder who was brought via EMS from [facility] due to increase verbal aggression towards roommate and one of their staff. Pt is known to this screenplay writer through previous assessment for similar presentation. Pt presents as calmer, she does admit to being verbally abusive, although denies any intent to harm self or others. She does lack the insight into how her behaviors affect others and her relationships with others. This tendency to have difficulty seeing other people's need per daughter has been life long. Pt presents with tendency to be irritable, at times explosive but not physically aggressive. She was started back in September on low dose of seroquel but no further medication adjustments have been made to manage these symptoms, which are disruptive but not life threatening nor at imminent risk of harm to self or others. As consequence of minimal intervention in the community, pt has had more frequent ED visits here and at [facility]. We discussed risks, benefits and alternative treatment options, pt agrees to start mood stabilizer for impulsive, explosive behaviors. We also discussed switching seroquel to risperidone. Pt is orientation has been intact all along. PLAN 01/20 schedule trazodone 50mg po qhs for sleep. 01/21 continue tx. depakote levels scheduled for tomorrow AM with ammonia levels. 01/22 trough depakote level 75, ammonia 41. continue tx. continue tx 01/24 continue tx. 01/25 continue tx. 01/26 continue tx. 01/27: continue current mgmt. 01/28: continue current mgmt. 01/29 continue tx. 01/30 continue tx. 01/31 continues tx-continue monitor bilat LE- doppler did not show DVT. 02/01: No change in medications, continue current plan of care. 02/02: Continue current plan. 02/03: Continue current plans and regimen 02/04 continue tx. 02/05 continue tx. 02/06 continue tx. 02/07 continue tx. 02/09: no changes 02/10 continue tx. 02/11 continue tx. 02/12 continue tx. 02/13 continue tx. 02/14 continue tx. awaiting placement. 02/15: Continue current treatment plan. 02/16: Continue current plan. 02/17 continue tx. 02/18 continue tx. 02/19 continue tx. 02/20 continue tx. 02/21 continue tx. 02/22: Continue current plans and regimen 02/23: Continue current plans and regimen 02/24 continue tx 02/25 continue tx. 02/26 continue tx. 02/27 continue tx. 02/28 continue tx. 03/01 continue same treatment 03/02 continue same treatment 03/03 continue tx. 03/04 continue tx. awaiting placement 03/05 continue tx. 03/06 continue tx. awaiting placement. 03/07 continue tx. 03/08: received oxycodone 5, ativan 1 mg this morning for what appears to be lower back spasm. try flexeril 5 mg one time. otherwise continue current mgmt. 03/09: no c/o back pain today. calm, cooperative. no behavioral issues. asking when she will be discharging. continue current mgmt. 03/10 continue tx. 03/11 continue tx. 03/12 continue tx. 03/13 continue tx. 03/14 continue tx. 03/15: Continue current management and treatment plan. 03/16 continue tx. 03/17- continues tx. will add lidocaine back pain. 03/18 continue tx. 03/19 continue tx. 03/20 continue same treatment 03/21 continue same treatment 03/22 continue tx. 03/23 continue tx. 03/24 continue tx. 03/25 continue tx. 03/26 continue tx. 03/27 continue tx. 03/28 continue treatment, waiting for placement 03/30/23: No changes 03/31 continue treatment 04/01 continue treatment 04/02 continue treatment 04/03 continue treatment 04/04 continue treatment Reason for continued inpatient stay Substantial Risk for: inability to function, rapid decompensation and med/psych decompensation Time Spent With Patient Time: Total time managing care of this patient today __20__ minutes.
[2023-04-04] MEDS: Metoprolol Tartrate 25 MG TABLET PO (09:22)
[2023-04-04] MEDS: Divalproex Sodium 250 MG TABLET.DR PO (09:22)
[2023-04-04] MEDS: Clopidogrel Bisulfate 75 MG TABLET PO (09:22)
[2023-04-04] MEDS: Escitalopram Oxalate 10 MG TABLET PO (09:22)
[2023-04-04] MEDS: Memantine HCl 10 MG TABLET PO ×2 (09:22→20:33)
[2023-04-04] MEDS: Lidocaine 4 % Patch ADH..PATCH 1 PATCH TRANSDERMA ×2 (09:23)
[2023-04-04 09:25] VITALS: BP 140/63; PULSE 69; RESP 16; TEMP 36.5; O2SAT 98
[2023-04-04 11:20] LABS: Glucose, Whole Blood 405 mg/dL (60-115)
[2023-04-04] MEDS: Insulin Lispro 100 UNIT/ML 3 ML VIAL SUBCUT ×2 (12:37→17:02)
[2023-04-04] MEDS: Gabapentin 600 MG TABLET PO ×2 (12:39→20:33)
[2023-04-04 16:16] LABS: Glucose, Whole Blood 225 mg/dL (60-115)
[2023-04-04 18:00] VITALS: BP 147/70; PULSE 73; RESP 17; TEMP 36.2; O2SAT 96
[2023-04-04 20:20] LABS: Glucose, Whole Blood 296 mg/dL (60-115)
[2023-04-04] MEDS: Divalproex Sodium 500 MG TABLET.DR PO (20:33)
[2023-04-04] MEDS: Valsartan 80 MG TABLET PO (20:33)
[2023-04-04] MEDS: Atorvastatin Calcium 20 MG TABLET PO (20:33)
[2023-04-04] MEDS: Donepezil HCl 10 MG TABLET PO (20:33)
[2023-04-04] MEDS: Insulin Glargine,Hum.rec.anlog 100 UNIT/ML 10 ML VIAL 52 UNIT SUBCUT (20:35)
[2023-04-05] MEDS: traZODone HCL 50 MG TABLET PO (03:08)
[2023-04-05] MEDS: Levothyroxine Sodium 75 MCG TABLET PO (06:12)
[2023-04-05 06:54] LABS: Glucose, Whole Blood 238 mg/dL (60-115)
[2023-04-05 08:07] VITALS: BP 126/57; PULSE 69; RESP 16; TEMP 36.4; O2SAT 95
[2023-04-05] MEDS: Escitalopram Oxalate 10 MG TABLET PO (08:09)
[2023-04-05] MEDS: Clopidogrel Bisulfate 75 MG TABLET PO (08:09)
[2023-04-05] MEDS: Metoprolol Tartrate 25 MG TABLET PO (08:10)
[2023-04-05] MEDS: Memantine HCl 10 MG TABLET PO ×2 (08:10→20:52)
[2023-04-05] MEDS: Divalproex Sodium 250 MG TABLET.DR PO (08:10)
[2023-04-05] MEDS: Insulin Lispro 100 UNIT/ML 3 ML VIAL SUBCUT ×3 (08:11→16:37)
[2023-04-05] MEDS: Lidocaine 4 % Patch ADH..PATCH 1 PATCH TRANSDERMA ×2 (08:14→08:15)
--- NOTE | 2023-04-05 10:49 | HO.PSYCHPN ---
Subjective Subjective Date of Service: 04/05/23 Reason For Visit: Depression Subjective Notes: Conditional Voluntary Interim History: The nursing staff reported no changes in her mental status, she was been seen in the common areas laughing watching TV. She had been up at 03:00 o'clock in the morning and needed p.r.n. medication she slept 7 hours. On interview the patient denies new symptoms, waiting for placement. Mental Status Exam Mental Status Exam Patient Appearance: Appropriate Patient Orientation: Person and Situation Level of Consciousness: Awake and Appropriate Patient Behavior: Guarded and Passive Mood Description: Calm Affect Description: Constricted Patient Cognition Impaired: Yes Ability to Follow Directions: Good Speech Pattern: Clear Hallucinations: None Delusions: Not Present Thought Process: Distracted and Slowed Thinking Thought Content: positive for [place] and positive for [place] Judgement: Fair Diagnostics Vital Signs (24Hr): Vital Signs - 24 hr 04/04/23 18:00 04/05/23 08:07 Temperature 97.1 F 97.5 F Pulse Rate 73 69 Respiratory Rate 17 16 Blood Pressure 147/70 H 126/57 L Pulse Oximetry 96 95 Oxygen Delivery Method Room Air Room Air BMI result Body Mass Index 28.4 Labs 01/07/23 17:49 01/07/23 17:49 Labs: Laboratory Results - last 48 hr 04/03/23 04/03/23 04/03/23 11:07 16:08 19:40 POC Glucose 394 H* 306 H 210 H 04/04/23 04/04/23 04/04/23 06:49 11:02 16:12 POC Glucose 120 H 405 H* 225 H 04/04/23 04/05/23 20:08 06:14 POC Glucose 296 H 238 H Imaging Radiology Impressions: ITS Impressions Venous Duplex 01/30/23 16:02 IMPRESSION: No DVT demonstrated in the bilateral lower extremity. Medications Medications Current Medications Acetaminophen (Acetaminophen 325 Mg Tablet) 650 mg PO Q6H PRN PRN Reason: Headache/Pain Mild Scale (1-3) Last Admin: 04/01/23 09:01 Dose: 650 mg Al Hydroxide/Mg Hydroxide (Magnesium Hydrox/Alum Hydrox 30 Ml Oral.Susp) 30 ml PO Q6H PRN PRN Reason: Heartburn/Nausea Last Admin: 02/10/23 22:17 Dose: 30 ml Artificial Tears (Artificial Tears 15 Ml Drops) 1 drop EYE-BOTH Q4H PRN PRN Reason: Dry Eyes Atorvastatin Calcium (Atorvastatin Calcium 20 Mg Tablet) 20 mg PO BEDTIME [facility] Last Admin: 04/04/23 20:33 Dose: 20 mg Bisacodyl (Bisacodyl 10 Mg Supp.Rect) 10 mg LA DAILY PRN PRN Reason: Constipation Clopidogrel Bisulfate (Clopidogrel Bisulfate 75 Mg Tablet) 75 mg PO DAILY [facility] Last Admin: 04/05/23 08:09 Dose: 75 mg Divalproex Sodium (Divalproex Sodium 500 Mg Tablet.) 500 mg PO BEDTIME [facility] Last Admin: 04/04/23 20:33 Dose: 500 mg Divalproex Sodium (Divalproex Sodium 250 Mg Tablet.) 250 mg PO DAILY [facility] Last Admin: 04/05/23 08:10 Dose: 250 mg Donepezil HCl (Donepezil Hcl 10 Mg Tablet) 10 mg PO BEDTIME [facility] Last Admin: 04/04/23 20:33 Dose: 10 mg Escitalopram Oxalate (Escitalopram Oxalate 10 Mg Tablet) 10 mg PO DAILY [facility] Last Admin: 04/05/23 08:09 Dose: 10 mg Gabapentin (Gabapentin 600 Mg Tablet) 600 mg PO BEDTIME [facility] Last Admin: 04/04/23 20:33 Dose: 600 mg Gabapentin (Gabapentin 600 Mg Tablet) 600 mg PO DAILY@1300 [facility] Last Admin: 04/04/23 12:39 Dose: 600 mg Glucagon (Glucagon Hcl 1 Mg Vial) 1 mg SUBCUT Q20M PRN PRN Reason: BG <70 AND UNRESPONSIVE Glucose (Glucose Gel 15 Gm Gel..Gram.) 15 gm PO Q15M PRN PRN Reason: BG <70 AND RESPONSIVE Last Admin: 01/30/23 03:12 Dose: 15 gm Insulin Glargine (Insulin Glargine,Hum.Rec.Anlog 100 Unit/Ml 10 Ml Vial) 52 unit SUBCUT BEDTIME [facility] Last Admin: 04/04/23 20:35 Dose: 52 unit Insulin Human Lispro (Insulin Lispro 100 Unit/Ml 3 Ml Vial) 0 unit SUBCUT TIDAC [facility]; Protocol Last Admin: 04/05/23 08:11 Dose: 7 unit Levothyroxine Sodium (Levothyroxine Sodium 75 Mcg Tablet) 75 mcg PO DAILY@0630 [facility] Last Admin: 04/05/23 06:12 Dose: 75 mcg Lidocaine (Lidocaine 4 % Patch Adh..Patch) 1 patch TRANSDERMA DAILY [facility]; Protocol Last Admin: 04/05/23 08:14 Dose: 1 patch Lidocaine (Lidocaine 4 % Patch Adh..Patch) 1 patch TRANSDERMA DAILY [facility]; Protocol Last Admin: 04/05/23 08:15 Dose: 1 patch Loperamide HCl (Loperamide Hcl 2 Mg Capsule) 2 mg PO Q6H PRN PRN Reason: diarrhea Last Admin: 03/19/23 17:40 Dose: 2 mg Loperamide HCl (Loperamide Hcl 2 Mg Capsule) 4 mg PO Q4H PRN PRN Reason: Diarrhea Last Admin: 04/01/23 11:09 Dose: 4 mg Magnesium Hydroxide (Milk Of Magnesia 30 Ml Oral.Susp) 30 ml PO DAILY PRN PRN Reason: Constipation Magnesium Hydroxide (Milk Of Magnesia 30 Ml Oral.Susp) 30 ml PO DAILY PRN PRN Reason: Constipation Memantine (Memantine Hcl 10 Mg Tablet) 10 mg PO BID [facility] Last Admin: 04/05/23 08:10 Dose: 10 mg Metoprolol Tartrate (Metoprolol Tartrate 25 Mg Tablet) 25 mg PO DAILY [facility]; Protocol Last Admin: 04/05/23 08:10 Dose: 25 mg Quetiapine Fumarate (Quetiapine Fumarate 50 Mg Tablet) 50 mg PO Q6H PRN PRN Reason: agitation Last Admin: 02/26/23 00:10 Dose: 50 mg Sodium Biphosphate/Sodium Phosphate (Sodium Phosphate,[place]-Dibasic 133 Ml Enema) 133 ml LA DAILY PRN PRN Reason: Constipation Trazodone HCl (Trazodone Hcl 50 Mg Tablet) 50 mg PO BEDTIME PRN PRN Reason: Insomnia Last Admin: 04/05/23 03:08 Dose: 50 mg Valsartan (Valsartan 80 Mg Tablet) 80 mg PO BEDTIME [facility]; Protocol Last Admin: 04/04/23 20:33 Dose: 80 mg Allergies Allergies Allergy/AdvReac Type Severity Reaction Status Date / Time aspirin [ASPIRIN] Allergy Unknown UNKNOWN Verified 01/01/23 09:43 Assessment & Plan Assessment & Plan (1) Major neurocognitive disorder: Status: Acute Code(s): F03.90 - Unspecified dementia, unspecified severity, without behavioral disturbance, psychotic disturbance, mood disturbance, and anxiety (2) Mood disorder: Status: Acute Code(s): F39 - Unspecified mood [affective] disorder Plan Ms. Landis is a 67 year-old woman with hx of Mood Disorder (untreated for most of her life) and neurocognitive disorder who was brought via EMS [facility] due to increase verbal aggression towards roommate and one of their staff. Pt is known to this specifications writer through previous assessment for similar presentation. Pt presents as calmer, she does admit to being verbally abusive, although denies any intent to harm self or others. She does lack the insight into how her behaviors affect others and her relationships with others. This tendency to have difficulty seeing other people's need per daughter has been life long. Pt presents with tendency to be irritable, at times explosive but not physically aggressive. She was started back in September on low dose of seroquel but no further medication adjustments have been made to manage these symptoms, which are disruptive but not life threatening nor at imminent risk of harm to self or others. As consequence of minimal intervention in the community, pt has had more frequent ED visits here and at [facility]. We discussed risks, benefits and alternative treatment options, pt agrees to start mood stabilizer for impulsive, explosive behaviors. We also discussed switching seroquel to risperidone. Pt is orientation has been intact all along. PLAN 01/20 schedule trazodone 50mg po qhs for sleep. 01/21 continue tx. depakote levels scheduled for tomorrow AM with ammonia levels. 01/22 trough depakote level 75, ammonia 41. continue tx. continue tx 01/24 continue tx. 01/25 continue tx. 01/26 continue tx. 01/27: continue current mgmt. 01/28: continue current mgmt. 01/29 continue tx. 01/30 continue tx. 01/31 continues tx-continue monitor bilat LE- doppler did not show DVT. 02/01: No change in medications, continue current plan of care. 02/02: Continue current plan. 02/03: Continue current plans and regimen 02/04 continue tx. 02/05 continue tx. 02/06 continue tx. 02/07 continue tx. 02/09: no changes 02/10 continue tx. 02/11 continue tx. 02/12 continue tx. 02/13 continue tx. 02/14 continue tx. awaiting placement. 02/15: Continue current treatment plan. 02/16: Continue current plan. 02/17 continue tx. 02/18 continue tx. 02/19 continue tx. 02/20 continue tx. 02/21 continue tx. 02/22: Continue current plans and regimen 02/23: Continue current plans and regimen 02/24 continue tx 02/25 continue tx. 02/26 continue tx. 02/27 continue tx. 02/28 continue tx. 03/01 continue same treatment 03/02 continue same treatment 03/03 continue tx. 03/04 continue tx. awaiting placement 03/05 continue tx. 03/06 continue tx. awaiting placement. 03/07 continue tx. 03/08: received oxycodone 5, ativan 1 mg this morning for what appears to be lower back spasm. try flexeril 5 mg one time. otherwise continue current mgmt. 03/09: no c/o back pain today. calm, cooperative. no behavioral issues. asking when she will be discharging. continue current mgmt. 03/10 continue tx. 03/11 continue tx. 03/12 continue tx. 03/13 continue tx. 03/14 continue tx. 03/15: Continue current management and treatment plan. 03/16 continue tx. 03/17- continues tx. will add lidocaine back pain. 03/18 continue tx. 03/19 continue tx. 03/20 continue same treatment 03/21 continue same treatment 03/22 continue tx. 03/23 continue tx. 03/24 continue tx. 03/25 continue tx. 03/26 continue tx. 03/27 continue tx. 03/28 continue treatment, waiting for placement 03/30/23: No changes 03/31 continue treatment 04/01 continue treatment 04/02 continue treatment 04/03 continue treatment 04/04 continue treatment 04/05 continue treatment Reason for continued inpatient stay Substantial Risk for: inability to function, rapid decompensation and med/psych decompensation Time Spent With Patient Time: Total time managing care of this patient today ___20_ minutes.
[2023-04-05 11:07] LABS: Glucose, Whole Blood 393 mg/dL (60-115)
--- NOTE | 2023-04-05 11:17 | PM.EVENT ---
Event Note Date of Service: 04/05/23 Event Note: Pt with hyperglycemia. Continue lantus and ssi. Add glipizide 5mg BID with meals. Encourage diabetic diet. Time Spent With Patient Time: Total time managing care of this patient today ____ minutes.
--- NOTE | 2023-04-05 11:49 | PC.NURSE ---
Patients POC this afternoon at 11:00 read [phone], Dr. Hodges notified via tiger text and patient given 13 units of Insulin based off sliding scale. No signs/symptoms of hyperglycemia reported or noted.
[2023-04-05] MEDS: Gabapentin 600 MG TABLET PO ×2 (12:34→20:52)
[2023-04-05 16:10] LABS: Glucose, Whole Blood 270 mg/dL (60-115)
[2023-04-05] MEDS: glipiZIDE 5 MG TABLET PO (17:15)
[2023-04-05 18:00] VITALS: BP 104/44; PULSE 67; RESP 18; TEMP 36.7; O2SAT 95
[2023-04-05] MEDS: Acetaminophen 325 MG TABLET 650 MG PO (19:33)
[2023-04-05 20:38] LABS: Glucose, Whole Blood 261 mg/dL (60-115)
[2023-04-05] MEDS: Valsartan 80 MG TABLET PO (20:51)
[2023-04-05] MEDS: Donepezil HCl 10 MG TABLET PO (20:52)
[2023-04-05] MEDS: Divalproex Sodium 500 MG TABLET.DR PO (20:52)
[2023-04-05] MEDS: Atorvastatin Calcium 20 MG TABLET PO (20:52)
[2023-04-05] MEDS: Insulin Glargine,Hum.rec.anlog 100 UNIT/ML 10 ML VIAL 52 UNIT SUBCUT (20:53)
[2023-04-06] MEDS: Levothyroxine Sodium 75 MCG TABLET PO (06:01)
[2023-04-06 06:15] LABS: Glucose, Whole Blood 343 mg/dL (60-115)
[2023-04-06] MEDS: Escitalopram Oxalate 10 MG TABLET PO (08:00)
[2023-04-06] MEDS: Clopidogrel Bisulfate 75 MG TABLET PO (08:00)
[2023-04-06] MEDS: Divalproex Sodium 250 MG TABLET.DR PO (08:00)
[2023-04-06] MEDS: glipiZIDE 5 MG TABLET PO ×2 (08:00→16:38)
[2023-04-06] MEDS: Insulin Lispro 100 UNIT/ML 3 ML VIAL SUBCUT ×3 (08:00→16:37)
[2023-04-06] MEDS: Memantine HCl 10 MG TABLET PO ×2 (08:00→22:14)
[2023-04-06] MEDS: Lidocaine 4 % Patch ADH..PATCH 1 PATCH TRANSDERMA ×2 (08:05→08:06)
[2023-04-06 08:23] VITALS: BP 136/63; PULSE 80; RESP 16; O2SAT 93
[2023-04-06] MEDS: Metoprolol Tartrate 25 MG TABLET PO (08:27)
--- NOTE | 2023-04-06 10:46 | HO.PSYCHPN ---
Subjective Subjective Date of Service: 04/06/23 Reason For Visit: Depression Subjective Notes: Conditional Voluntary Interim History: The nursing staff reported the patient had been brighter, she was seen watching TV, visible in the unit. She complained of headache in the afternoon and took Tylenol with good report. She slept 6 hours. On interview the patient denies new symptoms, waiting for placement. Mental Status Exam Mental Status Exam Patient Appearance: Appropriate Patient Orientation: Person and Situation Level of Consciousness: Awake and Appropriate Patient Behavior: Guarded and Passive Mood Description: Withdrawn Affect Description: Constricted Patient Cognition Impaired: Yes Ability to Follow Directions: Good Speech Pattern: Clear Hallucinations: None Delusions: Not Present Thought Process: Distracted and Evasive Thought Content: positive for [place] and positive for Poverty of Content Judgement: Fair Diagnostics Vital Signs (24Hr): Vital Signs - 24 hr 04/05/23 18:00 04/06/23 08:23 Temperature 98.1 F Pulse Rate 67 80 Respiratory Rate 18 16 Blood Pressure 104/44 L 136/63 Pulse Oximetry 95 93 Oxygen Delivery Method Room Air Room Air BMI result Body Mass Index 28.4 Labs 01/07/23 17:49 01/07/23 17:49 Labs: Laboratory Results - last 48 hr 04/04/23 04/04/23 04/04/23 11:02 16:12 20:08 POC Glucose 405 H* 225 H 296 H 04/05/23 04/05/23 04/05/23 06:14 11:02 16:01 POC Glucose 238 H 393 H* 270 H 04/05/23 04/06/23 20:11 06:07 POC Glucose 261 H 343 H Imaging Radiology Impressions: ITS Impressions Venous Duplex 01/30/23 16:02 IMPRESSION: No DVT demonstrated in the bilateral lower extremity. Medications Medications Current Medications Acetaminophen (Acetaminophen 325 Mg Tablet) 650 mg PO Q6H PRN PRN Reason: Headache/Pain Mild Scale (1-3) Last Admin: 04/05/23 19:33 Dose: 650 mg Al Hydroxide/Mg Hydroxide (Magnesium Hydrox/Alum Hydrox 30 Ml Oral.Susp) 30 ml PO Q6H PRN PRN Reason: Heartburn/Nausea Last Admin: 02/10/23 22:17 Dose: 30 ml Artificial Tears (Artificial Tears 15 Ml Drops) 1 drop EYE-BOTH Q4H PRN PRN Reason: Dry Eyes Atorvastatin Calcium (Atorvastatin Calcium 20 Mg Tablet) 20 mg PO BEDTIME [facility] Last Admin: 04/05/23 20:52 Dose: 20 mg Bisacodyl (Bisacodyl 10 Mg Supp.Rect) 10 mg MO DAILY PRN PRN Reason: Constipation Clopidogrel Bisulfate (Clopidogrel Bisulfate 75 Mg Tablet) 75 mg PO DAILY [facility] Last Admin: 04/06/23 08:00 Dose: 75 mg Divalproex Sodium (Divalproex Sodium 500 Mg Tablet.) 500 mg PO BEDTIME [facility] Last Admin: 04/05/23 20:52 Dose: 500 mg Divalproex Sodium (Divalproex Sodium 250 Mg Tablet.) 250 mg PO DAILY [facility] Last Admin: 04/06/23 08:00 Dose: 250 mg Donepezil HCl (Donepezil Hcl 10 Mg Tablet) 10 mg PO BEDTIME [facility] Last Admin: 04/05/23 20:52 Dose: 10 mg Escitalopram Oxalate (Escitalopram Oxalate 10 Mg Tablet) 10 mg PO DAILY [facility] Last Admin: 04/06/23 08:00 Dose: 10 mg Gabapentin (Gabapentin 600 Mg Tablet) 600 mg PO BEDTIME [facility] Last Admin: 04/05/23 20:52 Dose: 600 mg Gabapentin (Gabapentin 600 Mg Tablet) 600 mg PO DAILY@1300 [facility] Last Admin: 04/05/23 12:34 Dose: 600 mg Glipizide (Glipizide 5 Mg Tablet) 5 mg PO BIDWM [facility] Last Admin: 04/06/23 08:00 Dose: 5 mg Glucagon (Glucagon Hcl 1 Mg Vial) 1 mg SUBCUT Q20M PRN PRN Reason: BG <70 AND UNRESPONSIVE Glucose (Glucose Gel 15 Gm Gel..Gram.) 15 gm PO Q15M PRN PRN Reason: BG <70 AND RESPONSIVE Last Admin: 01/30/23 03:12 Dose: 15 gm Insulin Glargine (Insulin Glargine,Hum.Rec.Anlog 100 Unit/Ml 10 Ml Vial) 52 unit SUBCUT BEDTIME [facility] Last Admin: 04/05/23 20:53 Dose: 52 unit Insulin Human Lispro (Insulin Lispro 100 Unit/Ml 3 Ml Vial) 0 unit SUBCUT TIDAC [facility]; Protocol Last Admin: 04/06/23 08:00 Dose: 11 unit Levothyroxine Sodium (Levothyroxine Sodium 75 Mcg Tablet) 75 mcg PO DAILY@0630 [facility] Last Admin: 04/06/23 06:01 Dose: 75 mcg Lidocaine (Lidocaine 4 % Patch Adh..Patch) 1 patch TRANSDERMA DAILY [facility]; Protocol Last Admin: 04/06/23 08:05 Dose: 1 patch Lidocaine (Lidocaine 4 % Patch Adh..Patch) 1 patch TRANSDERMA DAILY [facility]; Protocol Last Admin: 04/06/23 08:06 Dose: 1 patch Loperamide HCl (Loperamide Hcl 2 Mg Capsule) 2 mg PO Q6H PRN PRN Reason: diarrhea Last Admin: 03/19/23 17:40 Dose: 2 mg Loperamide HCl (Loperamide Hcl 2 Mg Capsule) 4 mg PO Q4H PRN PRN Reason: Diarrhea Last Admin: 04/01/23 11:09 Dose: 4 mg Magnesium Hydroxide (Milk Of Magnesia 30 Ml Oral.Susp) 30 ml PO DAILY PRN PRN Reason: Constipation Magnesium Hydroxide (Milk Of Magnesia 30 Ml Oral.Susp) 30 ml PO DAILY PRN PRN Reason: Constipation Memantine (Memantine Hcl 10 Mg Tablet) 10 mg PO BID [facility] Last Admin: 04/06/23 08:00 Dose: 10 mg Metoprolol Tartrate (Metoprolol Tartrate 25 Mg Tablet) 25 mg PO DAILY [facility]; Protocol Last Admin: 04/06/23 08:27 Dose: 25 mg Quetiapine Fumarate (Quetiapine Fumarate 50 Mg Tablet) 50 mg PO Q6H PRN PRN Reason: agitation Last Admin: 02/26/23 00:10 Dose: 50 mg Sodium Biphosphate/Sodium Phosphate (Sodium Phosphate,[place]-Dibasic 133 Ml Enema) 133 ml MO DAILY PRN PRN Reason: Constipation Trazodone HCl (Trazodone Hcl 50 Mg Tablet) 50 mg PO BEDTIME PRN PRN Reason: Insomnia Last Admin: 04/05/23 03:08 Dose: 50 mg Valsartan (Valsartan 80 Mg Tablet) 80 mg PO BEDTIME [facility]; Protocol Last Admin: 04/05/23 20:51 Dose: 80 mg Allergies Allergies Allergy/AdvReac Type Severity Reaction Status Date / Time aspirin [ASPIRIN] Allergy Unknown UNKNOWN Verified 01/01/23 09:43 Assessment & Plan Assessment & Plan (1) Major neurocognitive disorder: Status: Acute Code(s): F03.90 - Unspecified dementia, unspecified severity, without behavioral disturbance, psychotic disturbance, mood disturbance, and anxiety (2) Mood disorder: Status: Acute Code(s): F39 - Unspecified mood [affective] disorder Plan Ms. Landis is a 67 year-old woman with hx of Mood Disorder (untreated for most of her life) and neurocognitive disorder who [facility] to increase verbal aggression towards roommate and one of their staff. Pt is known to this keno writer through previous assessment for similar presentation. Pt presents as calmer, she does admit to being verbally abusive, although denies any intent to harm self or others. She does lack the insight into how her behaviors affect others and her relationships with others. This tendency to have difficulty seeing other people's need per daughter has been life long. Pt presents with tendency to be irritable, at times explosive but not physically aggressive. She was started back in September on low dose of seroquel but no further medication adjustments have been made to manage these symptoms, which are disruptive but not life threatening nor at imminent risk of harm to self or others. As consequence of minimal intervention in the community, pt has had more frequent ED visits here and at [facility]. We discussed risks, benefits and alternative treatment options, pt agrees to start mood stabilizer for impulsive, explosive behaviors. We also discussed switching seroquel to risperidone. Pt is orientation has been intact all along. PLAN 01/20 schedule trazodone 50mg po qhs for sleep. 01/21 continue tx. depakote levels scheduled for tomorrow AM with ammonia levels. 01/22 trough depakote level 75, ammonia 41. continue tx. continue tx 01/24 continue tx. 01/25 continue tx. 01/26 continue tx. 01/27: continue current mgmt. 01/28: continue current mgmt. 01/29 continue tx. 01/30 continue tx. 01/31 continues tx-continue monitor bilat LE- doppler did not show DVT. 02/01: No change in medications, continue current plan of care. 02/02: Continue current plan. 02/03: Continue current plans and regimen 02/04 continue tx. 02/05 continue tx. 02/06 continue tx. 02/07 continue tx. 02/09: no changes 02/10 continue tx. 02/11 continue tx. 02/12 continue tx. 02/13 continue tx. 02/14 continue tx. awaiting placement. 02/15: Continue current treatment plan. 02/16: Continue current plan. 02/17 continue tx. 02/18 continue tx. 02/19 continue tx. 02/20 continue tx. 02/21 continue tx. 02/22: Continue current plans and regimen 02/23: Continue current plans and regimen 02/24 continue tx 02/25 continue tx. 02/26 continue tx. 02/27 continue tx. 02/28 continue tx. 03/01 continue same treatment 03/02 continue same treatment 03/03 continue tx. 03/04 continue tx. awaiting placement 03/05 continue tx. 03/06 continue tx. awaiting placement. 03/07 continue tx. 03/08: received oxycodone 5, ativan 1 mg this morning for what appears to be lower back spasm. try flexeril 5 mg one time. otherwise continue current mgmt. 03/09: no c/o back pain today. calm, cooperative. no behavioral issues. asking when she will be discharging. continue current mgmt. 03/10 continue tx. 03/11 continue tx. 03/12 continue tx. 03/13 continue tx. 03/14 continue tx. 03/15: Continue current management and treatment plan. 03/16 continue tx. 03/17- continues tx. will add lidocaine back pain. 03/18 continue tx. 03/19 continue tx. 03/20 continue same treatment 03/21 continue same treatment 03/22 continue tx. 03/23 continue tx. 03/24 continue tx. 03/25 continue tx. 03/26 continue tx. 03/27 continue tx. 03/28 continue treatment, waiting for placement 03/30/23: No changes 03/31 continue treatment 04/01 continue treatment 04/02 continue treatment 04/03 continue treatment 04/04 continue treatment 04/05 continue treatment 04/06 continue treatment Reason for continued inpatient stay Substantial Risk for: inability to function, rapid decompensation and med/psych decompensation Time Spent With Patient Time: Total time managing care of this patient today __20__ minutes.
[2023-04-06 11:29] LABS: Glucose, Whole Blood 278 mg/dL (60-115)
--- NOTE | 2023-04-06 12:24 | PM.EVENT ---
Event Note Date of Service: 04/06/23 Event Note: Patient with continued hyperglycemia. Glipizide recently added. Will increase Lantus by 5 units to 57 units at bedtime. Time Spent With Patient Time: Total time managing care of this patient today ____ minutes.
[2023-04-06] MEDS: Gabapentin 600 MG TABLET PO ×2 (12:42→22:14)
[2023-04-06 16:16] LABS: Glucose, Whole Blood 343 mg/dL (60-115)
[2023-04-06 18:00] VITALS: BP 139/60; PULSE 66; RESP 18; TEMP 36.1; O2SAT 96
[2023-04-06 20:19] LABS: Glucose, Whole Blood 162 mg/dL (60-115)
[2023-04-06] MEDS: Valsartan 80 MG TABLET PO (22:14)
[2023-04-06] MEDS: Divalproex Sodium 500 MG TABLET.DR PO (22:14)
[2023-04-06] MEDS: Atorvastatin Calcium 20 MG TABLET PO (22:14)
[2023-04-06] MEDS: Insulin Glargine,Hum.rec.anlog 100 UNIT/ML 10 ML VIAL 57 UNIT SUBCUT (22:15)
[2023-04-06] MEDS: Donepezil HCl 10 MG TABLET PO (22:15)
[2023-04-07] MEDS: Acetaminophen 325 MG TABLET 650 MG PO (01:13)
[2023-04-07] MEDS: Loperamide HCl 2 MG CAPSULE 4 MG PO (01:14)
[2023-04-07] MEDS: traZODone HCL 50 MG TABLET PO (01:15)
[2023-04-07] MEDS: Levothyroxine Sodium 75 MCG TABLET PO (05:46)
[2023-04-07 06:11] LABS: Glucose, Whole Blood 79 mg/dL (60-115)
[2023-04-07 08:00] VITALS: BP 116/55; PULSE 77; RESP 18; TEMP 36.4; O2SAT 94
[2023-04-07] MEDS: Memantine HCl 10 MG TABLET PO ×2 (08:29→20:28)
[2023-04-07] MEDS: Metoprolol Tartrate 25 MG TABLET PO (08:29)
[2023-04-07] MEDS: Escitalopram Oxalate 10 MG TABLET PO (08:29)
[2023-04-07] MEDS: Clopidogrel Bisulfate 75 MG TABLET PO (08:29)
[2023-04-07] MEDS: Divalproex Sodium 250 MG TABLET.DR PO (08:29)
[2023-04-07] MEDS: glipiZIDE 5 MG TABLET PO ×2 (08:29→17:44)
[2023-04-07] MEDS: Lidocaine 4 % Patch ADH..PATCH 1 PATCH TRANSDERMA ×2 (08:30)
--- NOTE | 2023-04-07 09:36 | HO.PSYCHPN ---
Subjective Subjective Date of Service: 04/07/23 Reason For Visit: Depression Subjective Notes: Conditional Voluntary Interim History: Pt slept through the night. Pt reports she is going good. She attends all assigned groups. She denies any physical concerns. No SI/HI. No VH/AH. Review of Systems Review of Systems Unremarkable Yes all other systems are reviewed and are negative Mental Status Exam Mental Status Exam Narrative: Appearance: Casual attire, good hygiene, in NAD, ambulating with walker Behavior: cooperative, calm Psychomotor: no agitation noted Speech: clear, normal rate/rhythm/volume, spontaneous TP: linear Mood: good Affect: Calm VH/AH: none expressed Delusions: none expressed Insight/judgment: fair x 2. Memory/cog: alert, oriented x 3. Diagnostics Vital Signs (24Hr): Vital Signs - 24 hr 04/06/23 18:00 04/07/23 08:00 Temperature 96.9 F 97.5 F Pulse Rate 66 77 Respiratory Rate 18 18 Blood Pressure 139/60 116/55 L Pulse Oximetry 96 94 Oxygen Delivery Method Room Air Room Air BMI result Body Mass Index 28.4 Labs 01/07/23 17:49 01/07/23 17:49 Labs: Laboratory Results - last 48 hr 04/05/23 04/05/23 04/05/23 11:02 16:01 20:11 POC Glucose 393 H* 270 H 261 H 04/06/23 04/06/23 04/06/23 06:07 11:24 16:08 POC Glucose 343 H 278 H 343 H 04/06/23 04/07/23 19:52 05:50 POC Glucose 162 H 79 Imaging Radiology Impressions: ITS Impressions Venous Duplex 01/30/23 16:02 IMPRESSION: No DVT demonstrated in the bilateral lower extremity. Medications Medications Current Medications Acetaminophen (Acetaminophen 325 Mg Tablet) 650 mg PO Q6H PRN PRN Reason: Headache/Pain Mild Scale (1-3) Last Admin: 04/07/23 01:13 Dose: 650 mg Al Hydroxide/Mg Hydroxide (Magnesium Hydrox/Alum Hydrox 30 Ml Oral.Susp) 30 ml PO Q6H PRN PRN Reason: Heartburn/Nausea Last Admin: 02/10/23 22:17 Dose: 30 ml Artificial Tears (Artificial Tears 15 Ml Drops) 1 drop EYE-BOTH Q4H PRN PRN Reason: Dry Eyes Atorvastatin Calcium (Atorvastatin Calcium 20 Mg Tablet) 20 mg PO BEDTIME [facility] Last Admin: 04/06/23 22:14 Dose: 20 mg Bisacodyl (Bisacodyl 10 Mg Supp.Rect) 10 mg LA DAILY PRN PRN Reason: Constipation Clopidogrel Bisulfate (Clopidogrel Bisulfate 75 Mg Tablet) 75 mg PO DAILY [facility] Last Admin: 04/07/23 08:29 Dose: 75 mg Divalproex Sodium (Divalproex Sodium 500 Mg Tablet.) 500 mg PO BEDTIME [facility] Last Admin: 04/06/23 22:14 Dose: 500 mg Divalproex Sodium (Divalproex Sodium 250 Mg Tablet.) 250 mg PO DAILY [facility] Last Admin: 04/07/23 08:29 Dose: 250 mg Donepezil HCl (Donepezil Hcl 10 Mg Tablet) 10 mg PO BEDTIME [facility] Last Admin: 04/06/23 22:15 Dose: 10 mg Escitalopram Oxalate (Escitalopram Oxalate 10 Mg Tablet) 10 mg PO DAILY [facility] Last Admin: 04/07/23 08:29 Dose: 10 mg Gabapentin (Gabapentin 600 Mg Tablet) 600 mg PO BEDTIME [facility] Last Admin: 04/06/23 22:14 Dose: 600 mg Gabapentin (Gabapentin 600 Mg Tablet) 600 mg PO DAILY@1300 [facility] Last Admin: 04/06/23 12:42 Dose: 600 mg Glipizide (Glipizide 5 Mg Tablet) 5 mg PO BIDWM [facility] Last Admin: 04/07/23 08:29 Dose: 5 mg Glucagon (Glucagon Hcl 1 Mg Vial) 1 mg SUBCUT Q20M PRN PRN Reason: BG <70 AND UNRESPONSIVE Glucose (Glucose Gel 15 Gm Gel..Gram.) 15 gm PO Q15M PRN PRN Reason: BG <70 AND RESPONSIVE Last Admin: 01/30/23 03:12 Dose: 15 gm Insulin Glargine (Insulin Glargine,Hum.Rec.Anlog 100 Unit/Ml 10 Ml Vial) 57 unit SUBCUT BEDTIME [facility] Last Admin: 04/06/23 22:15 Dose: 57 unit Insulin Human Lispro (Insulin Lispro 100 Unit/Ml 3 Ml Vial) 0 unit SUBCUT TIDAC [facility]; Protocol Last Admin: 04/07/23 08:35 Dose: Not Given Levothyroxine Sodium (Levothyroxine Sodium 75 Mcg Tablet) 75 mcg PO DAILY@0630 [facility] Last Admin: 04/07/23 05:46 Dose: 75 mcg Lidocaine (Lidocaine 4 % Patch Adh..Patch) 1 patch TRANSDERMA DAILY [facility]; Protocol Last Admin: 04/07/23 08:30 Dose: 1 patch Lidocaine (Lidocaine 4 % Patch Adh..Patch) 1 patch TRANSDERMA DAILY [facility]; Protocol Last Admin: 04/07/23 08:30 Dose: 1 patch Loperamide HCl (Loperamide Hcl 2 Mg Capsule) 2 mg PO Q6H PRN PRN Reason: diarrhea Last Admin: 03/19/23 17:40 Dose: 2 mg Loperamide HCl (Loperamide Hcl 2 Mg Capsule) 4 mg PO Q4H PRN PRN Reason: Diarrhea Last Admin: 04/07/23 01:14 Dose: 4 mg Magnesium Hydroxide (Milk Of Magnesia 30 Ml Oral.Susp) 30 ml PO DAILY PRN PRN Reason: Constipation Magnesium Hydroxide (Milk Of Magnesia 30 Ml Oral.Susp) 30 ml PO DAILY PRN PRN Reason: Constipation Memantine (Memantine Hcl 10 Mg Tablet) 10 mg PO BID [facility] Last Admin: 04/07/23 08:29 Dose: 10 mg Metoprolol Tartrate (Metoprolol Tartrate 25 Mg Tablet) 25 mg PO DAILY [facility]; Protocol Last Admin: 04/07/23 08:29 Dose: 25 mg Quetiapine Fumarate (Quetiapine Fumarate 50 Mg Tablet) 50 mg PO Q6H PRN PRN Reason: agitation Last Admin: 02/26/23 00:10 Dose: 50 mg Sodium Biphosphate/Sodium Phosphate (Sodium Phosphate,[place]-Dibasic 133 Ml Enema) 133 ml [place] DAILY PRN PRN Reason: Constipation Trazodone HCl (Trazodone Hcl 50 Mg Tablet) 50 mg PO BEDTIME PRN PRN Reason: Insomnia Last Admin: 04/07/23 01:15 Dose: 50 mg Valsartan (Valsartan 80 Mg Tablet) 80 mg PO BEDTIME [facility]; Protocol Last Admin: 04/06/23 22:14 Dose: 80 mg Allergies Allergies Allergy/AdvReac Type Severity Reaction Status Date / Time aspirin [ASPIRIN] Allergy Unknown UNKNOWN Verified 01/01/23 09:43 Assessment & Plan Assessment & Plan (1) Major neurocognitive disorder: Status: Acute Code(s): F03.90 - Unspecified dementia, unspecified severity, without behavioral disturbance, psychotic disturbance, mood disturbance, and anxiety (2) Mood disorder: Status: Acute Code(s): F39 - Unspecified mood [affective] disorder Plan Ms. Landis is a 67 year-old woman with hx of Mood Disorder (untreated for most of her life) and neurocognitive disorder who [facility] verbal aggression towards roommate and one of their staff. Pt is known to this blog writer through previous assessment for similar presentation. Pt presents as calmer, she does admit to being verbally abusive, although denies any intent to harm self or others. She does lack the insight into how her behaviors affect others and her relationships with others. This tendency to have difficulty seeing other people's need per daughter has been life long. Pt presents with tendency to be irritable, at times explosive but not physically aggressive. She was started back in September on low dose of seroquel but no further medication adjustments have been made to manage these symptoms, which are disruptive but not life threatening nor at imminent risk of harm to self or others. As consequence of minimal intervention in the community, pt has had more frequent ED visits here and at [facility]. We discussed risks, benefits and alternative treatment options, pt agrees to start mood stabilizer for impulsive, explosive behaviors. We also discussed switching seroquel to risperidone. Pt is orientation has been intact all along. PLAN 01/20 schedule trazodone 50mg po qhs for sleep. 01/21 continue tx. depakote levels scheduled for tomorrow AM with ammonia levels. 01/22 trough depakote level 75, ammonia 41. continue tx. continue tx 01/24 continue tx. 01/25 continue tx. 01/26 continue tx. 01/27: continue current mgmt. 01/28: continue current mgmt. 01/29 continue tx. 01/30 continue tx. 01/31 continues tx-continue monitor bilat LE- doppler did not show DVT. 02/01: No change in medications, continue current plan of care. 02/02: Continue current plan. 02/03: Continue current plans and regimen 02/04 continue tx. 02/05 continue tx. 02/06 continue tx. 02/07 continue tx. 02/09: no changes 02/10 continue tx. 02/11 continue tx. 02/12 continue tx. 02/13 continue tx. 02/14 continue tx. awaiting placement. 02/15: Continue current treatment plan. 02/16: Continue current plan. 02/17 continue tx. 02/18 continue tx. 02/19 continue tx. 02/20 continue tx. 02/21 continue tx. 02/22: Continue current plans and regimen 02/23: Continue current plans and regimen 02/24 continue tx 02/25 continue tx. 02/26 continue tx. 02/27 continue tx. 02/28 continue tx. 03/01 continue same treatment 03/02 continue same treatment 03/03 continue tx. 03/04 continue tx. awaiting placement 03/05 continue tx. 03/06 continue tx. awaiting placement. 03/07 continue tx. 03/08: received oxycodone 5, ativan 1 mg this morning for what appears to be lower back spasm. try flexeril 5 mg one time. otherwise continue current mgmt. 03/09: no c/o back pain today. calm, cooperative. no behavioral issues. asking when she will be discharging. continue current mgmt. 03/10 continue tx. 03/11 continue tx. 03/12 continue tx. 03/13 continue tx. 03/14 continue tx. 03/15: Continue current management and treatment plan. 03/16 continue tx. 03/17- continues tx. will add lidocaine back pain. 03/18 continue tx. 03/19 continue tx. 03/20 continue same treatment 03/21 continue same treatment 03/22 continue tx. 03/23 continue tx. 03/24 continue tx. 03/25 continue tx. 03/26 continue tx. 03/27 continue tx. 03/28 continue treatment, waiting for placement 03/30/23: No changes 03/31 continue treatment 04/01 continue treatment 04/02 continue treatment 04/03 continue treatment 04/04 continue treatment 04/05 continue treatment 04/06 continue treatment 04/07 continue tx. Reason for continued inpatient stay Substantial Risk for: inability to function Time Spent With Patient Time: Total time managing care of this patient today ____ minutes.
[2023-04-07 11:37] LABS: Glucose, Whole Blood 328 mg/dL (60-115)
[2023-04-07] MEDS: Insulin Lispro 100 UNIT/ML 3 ML VIAL SUBCUT ×2 (11:40→16:44)
[2023-04-07] MEDS: Gabapentin 600 MG TABLET PO ×2 (13:19→20:28)
[2023-04-07 16:35] LABS: Glucose, Whole Blood 369 mg/dL (60-115)
--- NOTE | 2023-04-07 17:57 | PC.NURSE ---
POC before breakfast 79, before lunch 328, covered per sliding scale. POC 369 before supper, covered as scheduled. No signs of diabetic reaction noted. call circuit worker Flora Fletcher notified.
[2023-04-07 20:04] LABS: Glucose, Whole Blood 302 mg/dL (60-115)
[2023-04-07 20:22] VITALS: PULSE 82; RESP 18; TEMP 36.6; O2SAT 95
[2023-04-07 20:27] VITALS: BP 126/56
[2023-04-07] MEDS: Divalproex Sodium 500 MG TABLET.DR PO (20:28)
[2023-04-07] MEDS: Atorvastatin Calcium 20 MG TABLET PO (20:28)
[2023-04-07] MEDS: Donepezil HCl 10 MG TABLET PO (20:29)
[2023-04-07] MEDS: Valsartan 80 MG TABLET PO (20:36)
[2023-04-07] MEDS: Insulin Glargine,Hum.rec.anlog 100 UNIT/ML 10 ML VIAL 57 UNIT SUBCUT (21:23)
[2023-04-08] MEDS: Levothyroxine Sodium 75 MCG TABLET PO (05:11)
[2023-04-08 06:32] LABS: Glucose, Whole Blood 136 mg/dL (60-115)
[2023-04-08 07:32] VITALS: BP 122/56; PULSE 68; RESP 18; TEMP 36.4; O2SAT 95
[2023-04-08] MEDS: Memantine HCl 10 MG TABLET PO ×2 (09:00→20:56)
[2023-04-08] MEDS: Metoprolol Tartrate 25 MG TABLET PO (09:01)
[2023-04-08] MEDS: glipiZIDE 5 MG TABLET PO (09:01)
[2023-04-08] MEDS: Escitalopram Oxalate 10 MG TABLET PO (09:01)
[2023-04-08] MEDS: Clopidogrel Bisulfate 75 MG TABLET PO (09:01)
[2023-04-08] MEDS: Lidocaine 4 % Patch ADH..PATCH 1 PATCH TRANSDERMA ×2 (09:01)
[2023-04-08] MEDS: Divalproex Sodium 250 MG TABLET.DR PO (09:01)
--- NOTE | 2023-04-08 09:22 | HO.PSYCHPN ---
Subjective Subjective Date of Service: 04/08/23 Reason For Visit: Depression Subjective Notes: Conditional Voluntary Interim History: Pt slept through the night. Pt continues to present with bright affect, reports she is going good. She attends all assigned groups. She denies any physical concerns. No SI/HI. No VH/AH. BS have been more elevated since diet change to regular- given pt's frustration and irritability over not being able to eat what she wanted. Review of Systems Review of Systems Unremarkable Yes all other systems are reviewed and are negative Mental Status Exam Mental Status Exam Narrative: Appearance: Casual attire, good hygiene, in NAD, ambulating with walker Behavior: cooperative, calm Psychomotor: no agitation noted Speech: clear, normal rate/rhythm/volume, spontaneous TP: linear Mood: good Affect: Calm VH/AH: none expressed Delusions: none expressed Insight/judgment: fair x 2. Memory/cog: alert, oriented x 3. Diagnostics Vital Signs (24Hr): Vital Signs - 24 hr 04/07/23 20:22 04/07/23 20:27 04/08/23 07:32 Temperature 97.8 F 97.6 F Pulse Rate 82 68 Respiratory Rate 18 18 Blood Pressure 126/56 L 122/56 L Pulse Oximetry 95 95 Oxygen Delivery Method Room Air Room Air BMI result Body Mass Index 28.4 Labs 01/07/23 17:49 01/07/23 17:49 Labs: Laboratory Results - last 48 hr 04/06/23 04/06/23 04/06/23 11:24 16:08 19:52 POC Glucose 278 H 343 H 162 H 04/07/23 04/07/23 04/07/23 05:50 11:27 16:23 POC Glucose 79 328 H 369 H* 04/07/23 04/08/23 19:48 06:22 POC Glucose 302 H 136 H Imaging Radiology Impressions: ITS Impressions Venous Duplex 01/30/23 16:02 IMPRESSION: No DVT demonstrated in the bilateral lower extremity. Medications Medications Current Medications Acetaminophen (Acetaminophen 325 Mg Tablet) 650 mg PO Q6H PRN PRN Reason: Headache/Pain Mild Scale (1-3) Last Admin: 04/07/23 01:13 Dose: 650 mg Al Hydroxide/Mg Hydroxide (Magnesium Hydrox/Alum Hydrox 30 Ml Oral.Susp) 30 ml PO Q6H PRN PRN Reason: Heartburn/Nausea Last Admin: 02/10/23 22:17 Dose: 30 ml Artificial Tears (Artificial Tears 15 Ml Drops) 1 drop EYE-BOTH Q4H PRN PRN Reason: Dry Eyes Atorvastatin Calcium (Atorvastatin Calcium 20 Mg Tablet) 20 mg PO BEDTIME [facility] Last Admin: 04/07/23 20:28 Dose: 20 mg Bisacodyl (Bisacodyl 10 Mg Supp.Rect) 10 mg ND DAILY PRN PRN Reason: Constipation Clopidogrel Bisulfate (Clopidogrel Bisulfate 75 Mg Tablet) 75 mg PO DAILY [facility] Last Admin: 04/08/23 09:01 Dose: 75 mg Divalproex Sodium (Divalproex Sodium 500 Mg Tablet.) 500 mg PO BEDTIME [facility] Last Admin: 04/07/23 20:28 Dose: 500 mg Divalproex Sodium (Divalproex Sodium 250 Mg Tablet.) 250 mg PO DAILY [facility] Last Admin: 04/08/23 09:01 Dose: 250 mg Donepezil HCl (Donepezil Hcl 10 Mg Tablet) 10 mg PO BEDTIME [facility] Last Admin: 04/07/23 20:29 Dose: 10 mg Escitalopram Oxalate (Escitalopram Oxalate 10 Mg Tablet) 10 mg PO DAILY [facility] Last Admin: 04/08/23 09:01 Dose: 10 mg Gabapentin (Gabapentin 600 Mg Tablet) 600 mg PO BEDTIME [facility] Last Admin: 04/07/23 20:28 Dose: 600 mg Gabapentin (Gabapentin 600 Mg Tablet) 600 mg PO DAILY@1300 [facility] Last Admin: 04/07/23 13:19 Dose: 600 mg Glipizide (Glipizide 5 Mg Tablet) 5 mg PO BIDWM [facility] Last Admin: 04/08/23 09:01 Dose: 5 mg Glucagon (Glucagon Hcl 1 Mg Vial) 1 mg SUBCUT Q20M PRN PRN Reason: BG <70 AND UNRESPONSIVE Glucose (Glucose Gel 15 Gm Gel..Gram.) 15 gm PO Q15M PRN PRN Reason: BG <70 AND RESPONSIVE Last Admin: 01/30/23 03:12 Dose: 15 gm Insulin Glargine (Insulin Glargine,Hum.Rec.Anlog 100 Unit/Ml 10 Ml Vial) 57 unit SUBCUT BEDTIME [facility] Last Admin: 04/07/23 21:23 Dose: 57 unit Insulin Human Lispro (Insulin Lispro 100 Unit/Ml 3 Ml Vial) 0 unit SUBCUT TIDAC [facility]; Protocol Last Admin: 04/08/23 07:56 Dose: Not Given Levothyroxine Sodium (Levothyroxine Sodium 75 Mcg Tablet) 75 mcg PO DAILY@0630 [facility] Last Admin: 04/08/23 05:11 Dose: 75 mcg Lidocaine (Lidocaine 4 % Patch Adh..Patch) 1 patch TRANSDERMA DAILY [facility]; Protocol Last Admin: 04/08/23 09:01 Dose: 1 patch Lidocaine (Lidocaine 4 % Patch Adh..Patch) 1 patch TRANSDERMA DAILY [facility]; Protocol Last Admin: 04/08/23 09:01 Dose: 1 patch Loperamide HCl (Loperamide Hcl 2 Mg Capsule) 2 mg PO Q6H PRN PRN Reason: diarrhea Last Admin: 03/19/23 17:40 Dose: 2 mg Loperamide HCl (Loperamide Hcl 2 Mg Capsule) 4 mg PO Q4H PRN PRN Reason: Diarrhea Last Admin: 04/07/23 01:14 Dose: 4 mg Magnesium Hydroxide (Milk Of Magnesia 30 Ml Oral.Susp) 30 ml PO DAILY PRN PRN Reason: Constipation Magnesium Hydroxide (Milk Of Magnesia 30 Ml Oral.Susp) 30 ml PO DAILY PRN PRN Reason: Constipation Memantine (Memantine Hcl 10 Mg Tablet) 10 mg PO BID [facility] Last Admin: 04/08/23 09:00 Dose: 10 mg Metoprolol Tartrate (Metoprolol Tartrate 25 Mg Tablet) 25 mg PO DAILY [facility]; Protocol Last Admin: 04/08/23 09:01 Dose: 25 mg Quetiapine Fumarate (Quetiapine Fumarate 50 Mg Tablet) 50 mg PO Q6H PRN PRN Reason: agitation Last Admin: 02/26/23 00:10 Dose: 50 mg Sodium Biphosphate/Sodium Phosphate (Sodium Phosphate,[place]-Dibasic 133 Ml Enema) 133 ml ND DAILY PRN PRN Reason: Constipation Trazodone HCl (Trazodone Hcl 50 Mg Tablet) 50 mg PO BEDTIME PRN PRN Reason: Insomnia Last Admin: 04/07/23 01:15 Dose: 50 mg Valsartan (Valsartan 80 Mg Tablet) 80 mg PO BEDTIME [facility]; Protocol Last Admin: 04/07/23 20:36 Dose: 80 mg Allergies Allergies Allergy/AdvReac Type Severity Reaction Status Date / Time aspirin [ASPIRIN] Allergy Unknown UNKNOWN Verified 01/01/23 09:43 Assessment & Plan Assessment & Plan (1) Major neurocognitive disorder: Status: Acute Code(s): F03.90 - Unspecified dementia, unspecified severity, without behavioral disturbance, psychotic disturbance, mood disturbance, and anxiety (2) Mood disorder: Status: Acute Code(s): F39 - Unspecified mood [affective] disorder Plan Ms. Landis is a 67 year-old woman with hx of Mood Disorder (untreated for most of her life) and neurocognitive disorder who was brought via EMS from [facility] due to increase verbal aggression towards roommate and one of their staff. Pt is known to this manual writer through previous assessment for similar presentation. Pt presents as calmer, she does admit to being verbally abusive, although denies any intent to harm self or others. She does lack the insight into how her behaviors affect others and her relationships with others. This tendency to have difficulty seeing other people's need per daughter has been life long. Pt presents with tendency to be irritable, at times explosive but not physically aggressive. She was started back in September on low dose of seroquel but no further medication adjustments have been made to manage these symptoms, which are disruptive but not life threatening nor at imminent risk of harm to self or others. As consequence of minimal intervention in the community, pt has had more frequent ED visits here and at [facility]. We discussed risks, benefits and alternative treatment options, pt agrees to start mood stabilizer for impulsive, explosive behaviors. We also discussed switching seroquel to risperidone. Pt is orientation has been intact all along. PLAN 01/20 schedule trazodone 50mg po qhs for sleep. 01/21 continue tx. depakote levels scheduled for tomorrow AM with ammonia levels. 01/22 trough depakote level 75, ammonia 41. continue tx. continue tx 01/24 continue tx. 01/25 continue tx. 01/26 continue tx. 01/27: continue current mgmt. 01/28: continue current mgmt. 01/29 continue tx. 01/30 continue tx. 01/31 continues tx-continue monitor bilat LE- doppler did not show DVT. 02/01: No change in medications, continue current plan of care. 02/02: Continue current plan. 02/03: Continue current plans and regimen 02/04 continue tx. 10/11 continue tx. 02/06 continue tx. 02/07 continue tx. 02/09: no changes 02/10 continue tx. 02/11 continue tx. 02/12 continue tx. 02/13 continue tx. 02/14 continue tx. awaiting placement. 02/15: Continue current treatment plan. 02/16: Continue current plan. 02/17 continue tx. 02/18 continue tx. 02/19 continue tx. 02/20 continue tx. 02/21 continue tx. 02/22: Continue current plans and regimen 02/23: Continue current plans and regimen 02/24 continue tx 02/25 continue tx. 02/26 continue tx. 02/27 continue tx. 02/28 continue tx. 03/01 continue same treatment 03/02 continue same treatment 03/03 continue tx. 03/04 continue tx. awaiting placement 03/05 continue tx. 03/06 continue tx. awaiting placement. 03/07 continue tx. 03/08: received oxycodone 5, ativan 1 mg this morning for what appears to be lower back spasm. try flexeril 5 mg one time. otherwise continue current mgmt. 03/09: no c/o back pain today. calm, cooperative. no behavioral issues. asking when she will be discharging. continue current mgmt. 03/10 continue tx. 03/11 continue tx. 03/12 continue tx. 03/13 continue tx. 03/14 continue tx. 03/15: Continue current management and treatment plan. 03/16 continue tx. 03/17- continues tx. will add lidocaine back pain. 03/18 continue tx. 03/19 continue tx. 03/20 continue same treatment 03/21 continue same treatment 03/22 continue tx. 03/23 continue tx. 03/24 continue tx. 03/25 continue tx. 03/26 continue tx. 03/27 continue tx. 03/28 continue treatment, waiting for placement 03/30/23: No changes 03/31 continue treatment 04/01 continue treatment 04/02 continue treatment 04/03 continue treatment 04/04 continue treatment 04/05 continue treatment 04/06 continue treatment 04/07 continue tx. 04/08 pt seen by hospitalist to adjust DM meds given increase in BS, added glipizide. Reason for continued inpatient stay Substantial Risk for: inability to function Time Spent With Patient Time: Total time managing care of this patient today ____ minutes.
--- NOTE | 2023-04-08 11:20 | P.EN_ITS ---
Event Note Date of Service: 04/08/23 Event Note: Fasting glucose levels improved. However, continues with daytime hyperglycemia. Unfortunately, without compliance with diabetic diet (snacking) further adjustments to SSI humalog increase risk of hypoglycemia as POC is checked prior to meals and there is no way to predict what patient will consume outside of meals. Would avoid increasing bedtime lantus as fasting glucose levels are improved. Would continue with glipizide 5mg BIDWM as ordered. Will also add sma ll dose lantus 10units every am to hopefully improve day time POC glucose without significantly increasing risk of hypoglycemia. Will continue monitoring. Please do not hesitate to reach out with questions or concerns. Time Spent With Patient Time: Total time managing care of this patient today ____ minutes.
[2023-04-08] MEDS: Acetaminophen 325 MG TABLET 650 MG PO (11:21)
[2023-04-08 11:34] LABS: Glucose, Whole Blood 328 mg/dL (60-115)
[2023-04-08 11:34] LABS: Glucose, Whole Blood 236 mg/dL (60-115)
[2023-04-08] MEDS: Gabapentin 600 MG TABLET PO ×2 (12:30→20:56)
[2023-04-08] MEDS: Insulin Glargine,Hum.rec.anlog 100 UNIT/ML 10 ML VIAL 10 UNIT SUBCUT (12:31)
[2023-04-08] MEDS: Insulin Lispro 100 UNIT/ML 3 ML VIAL SUBCUT ×2 (12:31→17:22)
[2023-04-08 16:32] LABS: Glucose, Whole Blood 153 mg/dL (60-115)
[2023-04-08 18:00] VITALS: BP 132/62; PULSE 64; RESP 16; TEMP 36.5; O2SAT 97
[2023-04-08 20:02] LABS: Glucose, Whole Blood 191 mg/dL (60-115)
[2023-04-08] MEDS: Valsartan 80 MG TABLET PO (20:56)
[2023-04-08] MEDS: Divalproex Sodium 500 MG TABLET.DR PO (20:56)
[2023-04-08] MEDS: Insulin Glargine,Hum.rec.anlog 100 UNIT/ML 10 ML VIAL 57 UNIT SUBCUT (20:56)
[2023-04-08] MEDS: Donepezil HCl 10 MG TABLET PO (20:56)
[2023-04-08] MEDS: Atorvastatin Calcium 20 MG TABLET PO (20:56)
[2023-04-09] MEDS: Levothyroxine Sodium 75 MCG TABLET PO (06:25)
[2023-04-09 06:44] LABS: Glucose, Whole Blood 117 mg/dL (60-115)
[2023-04-09 08:00] VITALS: BP 146/66; PULSE 68; RESP 16; TEMP 36.8; O2SAT 94
[2023-04-09] MEDS: Clopidogrel Bisulfate 75 MG TABLET PO (08:33)
[2023-04-09] MEDS: Insulin Glargine,Hum.rec.anlog 100 UNIT/ML 10 ML VIAL 10 UNIT SUBCUT (08:34)
[2023-04-09] MEDS: Metoprolol Tartrate 25 MG TABLET PO (08:34)
[2023-04-09] MEDS: Escitalopram Oxalate 10 MG TABLET PO (08:34)
[2023-04-09] MEDS: Memantine HCl 10 MG TABLET PO ×2 (08:34→20:46)
[2023-04-09] MEDS: Lidocaine 4 % Patch ADH..PATCH 1 PATCH TRANSDERMA ×2 (08:38→08:39)
[2023-04-09 11:20] LABS: Glucose, Whole Blood 194 mg/dL (60-115)
--- NOTE | 2023-04-09 11:37 | HO.PSYCHPN ---
Subjective Subjective Date of Service: 04/09/23 Reason For Visit: Depression Subjective Notes: Conditional Voluntary Interim History: Pt continues to sleep through the night. Pt continues to present with bright affect, reports she is doing good. She attends all assigned groups. She denies any physical concerns. No SI/HI. No VH/AH. BS have been more elevated since diet change to regular- given pt's frustration and irritability over not being able to eat what she wanted. Hospitalist following DM management. Review of Systems Review of Systems Unremarkable Yes all other systems are reviewed and are negative Mental Status Exam Mental Status Exam Narrative: Appearance: Casual attire, good hygiene, in NAD, ambulating with walker Behavior: cooperative, calm Psychomotor: no agitation noted Speech: clear, normal rate/rhythm/volume, spontaneous TP: linear Mood: good Affect: Calm VH/AH: none expressed Delusions: none expressed Insight/judgment: fair x 2. Memory/cog: alert, oriented x 3. Diagnostics Vital Signs (24Hr): Vital Signs - 24 hr 04/08/23 18:00 04/09/23 08:00 Temperature 97.7 F 98.2 F Pulse Rate 64 68 Respiratory Rate 16 16 Blood Pressure 132/62 146/66 H Pulse Oximetry 97 94 Oxygen Delivery Method Room Air Room Air BMI result Body Mass Index 28.4 Labs 01/07/23 17:49 01/07/23 17:49 Labs: Laboratory Results - last 48 hr 04/07/23 04/07/23 04/07/23 11:27 16:23 19:48 POC Glucose 328 H 369 H* 302 H 04/08/23 04/08/23 04/08/23 06:22 11:22 11:30 POC Glucose 136 H 236 H 328 H 04/08/23 04/08/23 04/09/23 16:11 19:44 06:30 POC Glucose 153 H 191 H 117 H 04/09/23 11:15 POC Glucose 194 H Imaging Radiology Impressions: ITS Impressions Venous Duplex 01/30/23 16:02 IMPRESSION: No DVT demonstrated in the bilateral lower extremity. Medications Medications Current Medications Artificial Tears (Artificial Tears 15 Ml Drops) 1 drop EYE-BOTH Q4H PRN PRN Reason: Dry Eyes Atorvastatin Calcium (Atorvastatin Calcium 20 Mg Tablet) 20 mg PO BEDTIME [facility] Last Admin: 04/08/23 20:56 Dose: 20 mg Bisacodyl (Bisacodyl 10 Mg Supp.Rect) 10 mg SD DAILY PRN PRN Reason: Constipation Clopidogrel Bisulfate (Clopidogrel Bisulfate 75 Mg Tablet) 75 mg PO DAILY [facility] Last Admin: 04/09/23 08:33 Dose: 75 mg Donepezil HCl (Donepezil Hcl 10 Mg Tablet) 10 mg PO BEDTIME [facility] Last Admin: 04/08/23 20:56 Dose: 10 mg Escitalopram Oxalate (Escitalopram Oxalate 10 Mg Tablet) 10 mg PO DAILY [facility] Last Admin: 04/09/23 08:34 Dose: 10 mg Gabapentin (Gabapentin 600 Mg Tablet) 600 mg PO BEDTIME [facility] Last Admin: 04/08/23 20:56 Dose: 600 mg Gabapentin (Gabapentin 600 Mg Tablet) 600 mg PO DAILY@1300 [facility] Last Admin: 04/08/23 12:30 Dose: 600 mg Glucagon (Glucagon Hcl 1 Mg Vial) 1 mg SUBCUT Q20M PRN PRN Reason: BG <70 AND UNRESPONSIVE Glucose (Glucose Gel 15 Gm Gel..Gram.) 15 gm PO Q15M PRN PRN Reason: BG <70 AND RESPONSIVE Last Admin: 01/30/23 03:12 Dose: 15 gm Insulin Glargine (Insulin Glargine,Hum.Rec.Anlog 100 Unit/Ml 10 Ml Vial) 57 unit SUBCUT BEDTIME [facility] Last Admin: 04/08/23 20:56 Dose: 57 unit Insulin Glargine (Insulin Glargine,Hum.Rec.Anlog 100 Unit/Ml 10 Ml Vial) 10 unit SUBCUT DAILY [facility] Last Admin: 04/09/23 08:34 Dose: 10 unit Insulin Human Lispro (Insulin Lispro 100 Unit/Ml 3 Ml Vial) 0 unit SUBCUT TIDAC [facility]; Protocol Last Admin: 04/09/23 08:02 Dose: Not Given Levothyroxine Sodium (Levothyroxine Sodium 75 Mcg Tablet) 75 mcg PO DAILY@0630 [facility] Last Admin: 04/09/23 06:25 Dose: 75 mcg Lidocaine (Lidocaine 4 % Patch Adh..Patch) 1 patch TRANSDERMA DAILY [facility]; Protocol Last Admin: 04/09/23 08:38 Dose: 1 patch Lidocaine (Lidocaine 4 % Patch Adh..Patch) 1 patch TRANSDERMA DAILY [facility]; Protocol Last Admin: 04/09/23 08:39 Dose: 1 patch Loperamide HCl (Loperamide Hcl 2 Mg Capsule) 2 mg PO Q6H PRN PRN Reason: diarrhea Last Admin: 03/19/23 17:40 Dose: 2 mg Loperamide HCl (Loperamide Hcl 2 Mg Capsule) 4 mg PO Q4H PRN PRN Reason: Diarrhea Last Admin: 04/07/23 01:14 Dose: 4 mg Magnesium Hydroxide (Milk Of Magnesia 30 Ml Oral.Susp) 30 ml PO DAILY PRN PRN Reason: Constipation Memantine (Memantine Hcl 10 Mg Tablet) 10 mg PO BID [facility] Last Admin: 04/09/23 08:34 Dose: 10 mg Metoprolol Tartrate (Metoprolol Tartrate 25 Mg Tablet) 25 mg PO DAILY [facility]; Protocol Last Admin: 04/09/23 08:34 Dose: 25 mg Pt Own Trulicity ( (Dulaglutide 0.75 Mg)) 0.75 mg SUBCUT Tu@1730 [facility] Last Admin: 04/08/23 17:22 Dose: 0.75 mg Sodium Biphosphate/Sodium Phosphate (Sodium Phosphate,[place]-Dibasic 133 Ml Enema) 133 ml SD DAILY PRN PRN Reason: Constipation Trazodone HCl (Trazodone Hcl 50 Mg Tablet) 50 mg PO BEDTIME PRN PRN Reason: Insomnia Last Admin: 04/07/23 01:15 Dose: 50 mg Valsartan (Valsartan 80 Mg Tablet) 80 mg PO BEDTIME [facility]; Protocol Last Admin: 04/08/23 20:56 Dose: 80 mg Allergies Allergies Allergy/AdvReac Type Severity Reaction Status Date / Time aspirin [ASPIRIN] Allergy Unknown UNKNOWN Verified 01/01/23 09:43 Assessment & Plan Assessment & Plan (1) Major neurocognitive disorder: Status: Acute Code(s): F03.90 - Unspecified dementia, unspecified severity, without behavioral disturbance, psychotic disturbance, mood disturbance, and anxiety (2) Mood disorder: Status: Acute Code(s): F39 - Unspecified mood [affective] disorder Plan Ms. Landis is a 67 year-old woman with hx of Mood Disorder (untreated for most of her life) and neurocognitive disorder who was brought via EMS from [facility] [place] due to increase verbal aggression towards roommate and one of their staff. Pt is known to this medical writer through previous assessment for similar presentation. Pt presents as calmer, she does admit to being verbally abusive, although denies any intent to harm self or others. She does lack the insight into how her behaviors affect others and her relationships with others. This tendency to have difficulty seeing other people's need per daughter has been life long. Pt presents with tendency to be irritable, at times explosive but not physically aggressive. She was started back in September on low dose of seroquel but no further medication adjustments have been made to manage these symptoms, which are disruptive but not life threatening nor at imminent risk of harm to self or others. As consequence of minimal intervention in the community, pt has had more frequent ED visits here and at [facility]. We discussed risks, benefits and alternative treatment options, pt agrees to start mood stabilizer for impulsive, explosive behaviors. We also discussed switching seroquel to risperidone. Pt is orientation has been intact all along. PLAN 01/20 schedule trazodone 50mg po qhs for sleep. 01/21 continue tx. depakote levels scheduled for tomorrow AM with ammonia levels. 01/22 trough depakote level 75, ammonia 41. continue tx. continue tx 01/24 continue tx. 01/25 continue tx. 01/26 continue tx. 01/27: continue current mgmt. 01/28: continue current mgmt. 01/29 continue tx. 01/30 continue tx. 01/31 continues tx-continue monitor bilat LE- doppler did not show DVT. 02/01: No change in medications, continue current plan of care. 02/02: Continue current plan. 02/03: Continue current plans and regimen 02/04 continue tx. 02/05 continue tx. 02/06 continue tx. 02/07 continue tx. 02/09: no changes 02/10 continue tx. 02/11 continue tx. 02/12 continue tx. 02/13 continue tx. 02/14 continue tx. awaiting placement. 02/15: Continue current treatment plan. 02/16: Continue current plan. 02/17 continue tx. 02/18 continue tx. 02/19 continue tx. 02/20 continue tx. 02/21 continue tx. 02/22: Continue current plans and regimen 02/23: Continue current plans and regimen 02/24 continue tx 02/25 continue tx. 02/26 continue tx. 02/27 continue tx. 02/28 continue tx. 03/01 continue same treatment 03/02 continue same treatment 03/03 continue tx. 03/04 continue tx. awaiting placement 03/05 continue tx. 03/06 continue tx. awaiting placement. 03/07 continue tx. 03/08: received oxycodone 5, ativan 1 mg this morning for what appears to be lower back spasm. try flexeril 5 mg one time. otherwise continue current mgmt. 03/09: no c/o back pain today. calm, cooperative. no behavioral issues. asking when she will be discharging. continue current mgmt. 03/10 continue tx. 03/11 continue tx. 03/12 continue tx. 03/13 continue tx. 03/14 continue tx. 03/15: Continue current management and treatment plan. 03/16 continue tx. 03/17- continues tx. will add lidocaine back pain. 03/18 continue tx. 03/19 continue tx. 03/20 continue same treatment 03/21 continue same treatment 03/22 continue tx. 03/23 continue tx. 03/24 continue tx. 03/25 continue tx. 03/26 continue tx. 03/27 continue tx. 03/28 continue treatment, waiting for placement 03/30/23: No changes 03/31 continue treatment 04/01 continue treatment 04/02 continue treatment 04/03 continue treatment 04/04 continue treatment 04/05 continue treatment 04/06 continue treatment 04/07 continue tx. 04/08 pt seen by hospitalist to adjust DM meds given increase in BS, added glipizide. 04/09 continue tx. Reason for continued inpatient stay Substantial Risk for: inability to function Time Spent With Patient Time: Total time managing care of this patient today ____ minutes.
[2023-04-09] MEDS: Insulin Lispro 100 UNIT/ML 3 ML VIAL SUBCUT ×2 (11:45→16:49)
[2023-04-09] MEDS: Gabapentin 600 MG TABLET PO ×2 (12:35→20:47)
[2023-04-09 16:39] LABS: Glucose, Whole Blood 253 mg/dL (60-115)
[2023-04-09 18:00] VITALS: BP 145/65; PULSE 70; RESP 17; TEMP 36.6; O2SAT 95
[2023-04-09] MEDS: Atorvastatin Calcium 20 MG TABLET PO (20:46)
[2023-04-09] MEDS: Valsartan 80 MG TABLET PO (20:46)
[2023-04-09] MEDS: Insulin Glargine,Hum.rec.anlog 100 UNIT/ML 10 ML VIAL 57 UNIT SUBCUT (20:47)
[2023-04-09] MEDS: Donepezil HCl 10 MG TABLET PO (20:47)
[2023-04-10] MEDS: Levothyroxine Sodium 75 MCG TABLET PO (06:10)
[2023-04-10 06:23] LABS: Glucose, Whole Blood 104 mg/dL (60-115)
[2023-04-10 07:00] VITALS: BMI 28.5
[2023-04-10 07:30] VITALS: BP 155/63; PULSE 74; RESP 18; TEMP 36.8; O2SAT 94
[2023-04-10] MEDS: Lidocaine 4 % Patch ADH..PATCH 1 PATCH TRANSDERMA (08:14)
[2023-04-10] MEDS: Clopidogrel Bisulfate 75 MG TABLET PO (08:15)
[2023-04-10] MEDS: Escitalopram Oxalate 10 MG TABLET PO (08:15)
[2023-04-10] MEDS: Metoprolol Tartrate 25 MG TABLET PO (08:15)
[2023-04-10] MEDS: Memantine HCl 10 MG TABLET PO ×2 (08:15→20:59)
[2023-04-10] MEDS: Insulin Glargine,Hum.rec.anlog 100 UNIT/ML 10 ML VIAL 10 UNIT SUBCUT (08:16)
[2023-04-10 11:35] LABS: Glucose, Whole Blood 310 mg/dL (60-115)
[2023-04-10] MEDS: Insulin Lispro 100 UNIT/ML 3 ML VIAL SUBCUT ×2 (11:42→16:49)
[2023-04-10] MEDS: Gabapentin 600 MG TABLET PO ×2 (13:18→20:59)
[2023-04-10 16:36] LABS: Glucose, Whole Blood 202 mg/dL (60-115)
[2023-04-10 18:00] VITALS: BP 141/63; PULSE 70; RESP 18; TEMP 36.4; O2SAT 98
[2023-04-10 20:14] LABS: Glucose, Whole Blood 204 mg/dL (60-115)
--- NOTE | 2023-04-10 20:17 | HO.PSYCHPN ---
Subjective Subjective Date of Service: 04/10/23 Reason For Visit: Depression Interim History: Pt continues to sleep through the night. Pt continues to present with bright affect, reports she is doing good. She attends all assigned groups. She denies any physical concerns. No SI/HI. No VH/AH. Review of Systems Review of Systems Unremarkable Yes all other systems are reviewed and are negative Mental Status Exam Mental Status Exam Narrative: Appearance: Casual attire, good hygiene, in NAD, ambulating with walker Behavior: cooperative, calm Psychomotor: no agitation noted Speech: clear, normal rate/rhythm/volume, spontaneous TP: linear Mood: good Affect: Calm VH/AH: none expressed Delusions: none expressed Insight/judgment: fair x 2. Memory/cog: alert, oriented x 3. Diagnostics Vital Signs (24Hr): Vital Signs - 24 hr 04/10/23 07:30 Temperature 98.2 F Pulse Rate 74 Respiratory Rate 18 Blood Pressure 155/63 H Pulse Oximetry 94 Oxygen Delivery Method Room Air BMI result Body Mass Index 28.5 Labs 01/07/23 17:49 01/07/23 17:49 Labs: Laboratory Results - last 48 hr 04/09/23 04/09/23 04/09/23 06:30 11:15 16:27 POC Glucose 117 H 194 H 253 H 04/10/23 04/10/23 04/10/23 06:05 11:31 16:30 POC Glucose 104 310 H 202 H 04/10/23 19:56 POC Glucose 204 H Imaging Radiology Impressions: ITS Impressions Venous Duplex 01/30/23 16:02 IMPRESSION: No DVT demonstrated in the bilateral lower extremity. Medications Medications Current Medications Artificial Tears (Artificial Tears 15 Ml Drops) 1 drop EYE-BOTH Q4H PRN PRN Reason: Dry Eyes Atorvastatin Calcium (Atorvastatin Calcium 20 Mg Tablet) 20 mg PO BEDTIME [facility] Last Admin: 04/09/23 20:46 Dose: 20 mg Bisacodyl (Bisacodyl 10 Mg Supp.Rect) 10 mg [place] DAILY PRN PRN Reason: Constipation Clopidogrel Bisulfate (Clopidogrel Bisulfate 75 Mg Tablet) 75 mg PO DAILY [facility] Last Admin: 04/10/23 08:15 Dose: 75 mg Donepezil HCl (Donepezil Hcl 10 Mg Tablet) 10 mg PO BEDTIME [facility] Last Admin: 04/09/23 20:47 Dose: 10 mg Escitalopram Oxalate (Escitalopram Oxalate 10 Mg Tablet) 10 mg PO DAILY [facility] Last Admin: 04/10/23 08:15 Dose: 10 mg Gabapentin (Gabapentin 600 Mg Tablet) 600 mg PO BEDTIME [facility] Last Admin: 04/09/23 20:47 Dose: 600 mg Gabapentin (Gabapentin 600 Mg Tablet) 600 mg PO DAILY@1300 [facility] Last Admin: 04/10/23 13:18 Dose: 600 mg Glucagon (Glucagon Hcl 1 Mg Vial) 1 mg SUBCUT Q20M PRN PRN Reason: BG <70 AND UNRESPONSIVE Glucose (Glucose Gel 15 Gm Gel..Gram.) 15 gm PO Q15M PRN PRN Reason: BG <70 AND RESPONSIVE Last Admin: 01/30/23 03:12 Dose: 15 gm Insulin Glargine (Insulin Glargine,Hum.Rec.Anlog 100 Unit/Ml 10 Ml Vial) 57 unit SUBCUT BEDTIME [facility] Last Admin: 04/09/23 20:47 Dose: 57 unit Insulin Glargine (Insulin Glargine,Hum.Rec.Anlog 100 Unit/Ml 10 Ml Vial) 10 unit SUBCUT DAILY [facility] Last Admin: 04/10/23 08:16 Dose: 10 unit Insulin Human Lispro (Insulin Lispro 100 Unit/Ml 3 Ml Vial) 0 unit SUBCUT TIDAC [facility]; Protocol Last Admin: 04/10/23 16:49 Dose: 7 unit Levothyroxine Sodium (Levothyroxine Sodium 75 Mcg Tablet) 75 mcg PO DAILY@0630 [facility] Last Admin: 04/10/23 06:10 Dose: 75 mcg Lidocaine (Lidocaine 4 % Patch Adh..Patch) 1 patch TRANSDERMA DAILY [facility]; Protocol Last Admin: 04/10/23 08:14 Dose: 1 patch Loperamide HCl (Loperamide Hcl 2 Mg Capsule) 2 mg PO Q6H PRN PRN Reason: diarrhea Last Admin: 03/19/23 17:40 Dose: 2 mg Loperamide HCl (Loperamide Hcl 2 Mg Capsule) 4 mg PO Q4H PRN PRN Reason: Diarrhea Last Admin: 04/07/23 01:14 Dose: 4 mg Magnesium Hydroxide (Milk Of Magnesia 30 Ml Oral.Susp) 30 ml PO DAILY PRN PRN Reason: Constipation Memantine (Memantine Hcl 10 Mg Tablet) 10 mg PO BID [facility] Last Admin: 04/10/23 08:15 Dose: 10 mg Metoprolol Tartrate (Metoprolol Tartrate 25 Mg Tablet) 25 mg PO DAILY [facility]; Protocol Last Admin: 04/10/23 08:15 Dose: 25 mg Pt Own Trulicity ( (Dulaglutide 0.75 Mg)) 0.75 mg SUBCUT Tu@1730 [facility] Last Admin: 04/08/23 17:22 Dose: 0.75 mg Sodium Biphosphate/Sodium Phosphate (Sodium Phosphate,[place]-Dibasic 133 Ml Enema) 133 ml [place] DAILY PRN PRN Reason: Constipation Trazodone HCl (Trazodone Hcl 50 Mg Tablet) 50 mg PO BEDTIME PRN PRN Reason: Insomnia Last Admin: 04/07/23 01:15 Dose: 50 mg Valsartan (Valsartan 80 Mg Tablet) 80 mg PO BEDTIME [facility]; Protocol Last Admin: 04/09/23 20:46 Dose: 80 mg Allergies Allergies Allergy/AdvReac Type Severity Reaction Status Date / Time aspirin [ASPIRIN] Allergy Unknown UNKNOWN Verified 01/01/23 09:43 Assessment & Plan Assessment & Plan (1) Major neurocognitive disorder: Status: Acute Code(s): F03.90 - Unspecified dementia, unspecified severity, without behavioral disturbance, psychotic disturbance, mood disturbance, and anxiety (2) Mood disorder: Status: Acute Code(s): F39 - Unspecified mood [affective] disorder Plan Ms. Lanids is a 67 year-old woman with hx of Mood Disorder (untreated for most of her life) and neurocognitive disorder who was brought via EMS from [facility] due to increase verbal aggression towards roommate and one of their staff. Pt is known to this feature writer through previous assessment for similar presentation. Pt presents as calmer, she does admit to being verbally abusive, although denies any intent to harm self or others. She does lack the insight into how her behaviors affect others and her relationships with others. This tendency to have difficulty seeing other people's need per daughter has been life long. Pt presents with tendency to be irritable, at times explosive but not physically aggressive. She was started back in September on low dose of seroquel but no further medication adjustments have been made to manage these symptoms, which are disruptive but not life threatening nor at imminent risk of harm to self or others. As consequence of minimal intervention in the community, pt has had more frequent ED visits here and at [facility]. We discussed risks, benefits and alternative treatment options, pt agrees to start mood stabilizer for impulsive, explosive behaviors. We also discussed switching seroquel to risperidone. Pt is orientation has been intact all along. PLAN 01/20 schedule trazodone 50mg po qhs for sleep. 01/21 continue tx. depakote levels scheduled for tomorrow AM with ammonia levels. 01/22 trough depakote level 75, ammonia 41. continue tx. continue tx 01/24 continue tx. 01/25 continue tx. 01/26 continue tx. 01/27: continue current mgmt. 01/28: continue current mgmt. 01/29 continue tx. 01/30 continue tx. 01/31 continues tx-continue monitor bilat LE- doppler did not show DVT. 02/01: No change in medications, continue current plan of care. 02/02: Continue current plan. 02/03: Continue current plans and regimen 02/04 continue tx. 02/05 continue tx. 02/06 continue tx. 02/07 continue tx. 02/09: no changes 02/10 continue tx. 02/11 continue tx. 02/12 continue tx. 02/13 continue tx. 02/14 continue tx. awaiting placement. 02/15: Continue current treatment plan. 02/16: Continue current plan. 02/17 continue tx. 02/18 continue tx. 02/19 continue tx. 02/20 continue tx. 02/21 continue tx. 02/22: Continue current plans and regimen 02/23: Continue current plans and regimen 02/24 continue tx 02/25 continue tx. 02/26 continue tx. 02/27 continue tx. 02/28 continue tx. 03/01 continue same treatment 03/02 continue same treatment 03/03 continue tx. 03/04 continue tx. awaiting placement 03/05 continue tx. 03/06 continue tx. awaiting placement. 03/07 continue tx. 03/08: received oxycodone 5, ativan 1 mg this morning for what appears to be lower back spasm. try flexeril 5 mg one time. otherwise continue current mgmt. 03/09: no c/o back pain today. calm, cooperative. no behavioral issues. asking when she will be discharging. continue current mgmt. 03/10 continue tx. 03/11 continue tx. 03/12 continue tx. 03/13 continue tx. 03/14 continue tx. 03/15: Continue current management and treatment plan. 03/16 continue tx. 03/17- continues tx. will add lidocaine back pain. 03/18 continue tx. 03/19 continue tx. 03/20 continue same treatment 03/21 continue same treatment 03/22 continue tx. 03/23 continue tx. 03/24 continue tx. 03/25 continue tx. 03/26 continue tx. 03/27 continue tx. 03/28 continue treatment, waiting for placement 03/30/23: No changes 03/31 continue treatment 04/01 continue treatment 04/02 continue treatment 04/03 continue treatment 04/04 continue treatment 04/05 continue treatment 04/06 continue treatment 04/07 continue tx. 04/08 pt seen by hospitalist to adjust DM meds given increase in BS, added glipizide. 04/09 continue tx 04/10 continue tx. Reason for continued inpatient stay Substantial Risk for: inability to function Time Spent With Patient Time: Total time managing care of this patient today ____ minutes.
[2023-04-10] MEDS: Atorvastatin Calcium 20 MG TABLET PO (20:59)
[2023-04-10] MEDS: Donepezil HCl 10 MG TABLET PO (20:59)
[2023-04-10] MEDS: Valsartan 80 MG TABLET PO (20:59)
[2023-04-10] MEDS: Insulin Glargine,Hum.rec.anlog 100 UNIT/ML 10 ML VIAL 57 UNIT SUBCUT (21:00)
[2023-04-11] MEDS: Levothyroxine Sodium 75 MCG TABLET PO (05:51)
[2023-04-11 06:43] LABS: Glucose, Whole Blood 138 mg/dL (60-115)
[2023-04-11 08:03] VITALS: BP 129/62; PULSE 72; RESP 16; TEMP 36.2; O2SAT 96
[2023-04-11] MEDS: Memantine HCl 10 MG TABLET PO ×2 (08:05→20:37)
[2023-04-11] MEDS: Metoprolol Tartrate 25 MG TABLET PO (08:05)
[2023-04-11] MEDS: Clopidogrel Bisulfate 75 MG TABLET PO (08:05)
[2023-04-11] MEDS: Escitalopram Oxalate 10 MG TABLET PO (08:05)
[2023-04-11] MEDS: Insulin Glargine,Hum.rec.anlog 100 UNIT/ML 10 ML VIAL 10 UNIT SUBCUT (08:09)
[2023-04-11 11:22] LABS: Glucose, Whole Blood 386 mg/dL (60-115)
[2023-04-11] MEDS: Insulin Lispro 100 UNIT/ML 3 ML VIAL SUBCUT ×2 (11:33→16:40)
--- NOTE | 2023-04-11 12:22 | PC.NURSE ---
Shae's POC this afternoon was 386. Patient denied any symptoms of hyperglycemia and none noted. PREMIUM REPRESENTATIVE Tanya Perez notified via tiger text and 13 units of insulin given per sliding scale.
[2023-04-11] MEDS: Gabapentin 600 MG TABLET PO ×2 (12:44→20:37)
[2023-04-11] MEDS: Lidocaine 4 % Patch ADH..PATCH 1 PATCH TRANSDERMA (12:47)
[2023-04-11 16:13] LABS: Glucose, Whole Blood 286 mg/dL (60-115)
[2023-04-11 19:35] VITALS: BP 145/69; PULSE 75; RESP 18; TEMP 36.4; O2SAT 95
[2023-04-11 20:19] LABS: Glucose, Whole Blood 273 mg/dL (60-115)
[2023-04-11] MEDS: Donepezil HCl 10 MG TABLET PO (20:37)
[2023-04-11] MEDS: Atorvastatin Calcium 20 MG TABLET PO (20:37)
[2023-04-11] MEDS: Valsartan 80 MG TABLET PO (20:37)
[2023-04-11] MEDS: Insulin Glargine,Hum.rec.anlog 100 UNIT/ML 10 ML VIAL 57 UNIT SUBCUT (20:39)
--- NOTE | 2023-04-11 20:44 | HO.PSYCHPN ---
Subjective Subjective Date of Service: 04/11/23 Reason For Visit: Depression Subjective Notes: Conditional Voluntary Interim History: Pt sleeping through the night. No behavioral concerns. She denies any physical concerns. No SI/HI. She takes medications as prescribed. awaiting placement. Review of Systems Review of Systems Unremarkable Yes all other systems are reviewed and are negative Mental Status Exam Mental Status Exam Narrative: Appearance: Casual attire, good hygiene, uncomfortable in bed. Complaining of leg pain Behavior: cooperative, calm Psychomotor: no agitation noted Speech: clear, normal rate/rhythm/volume, spontaneous TP: linear Mood: good Affect: tearful VH/AH: none expressed Delusions: none expressed Insight/judgment: fair x 2. Memory/cog: alert, oriented x 3. Diagnostics Vital Signs (24Hr): Vital Signs - 24 hr 04/11/23 08:03 04/11/23 19:35 Temperature 97.1 F 97.5 F Pulse Rate 72 75 Respiratory Rate 16 18 Blood Pressure 129/62 145/69 H Pulse Oximetry 96 95 Oxygen Delivery Method Room Air Room Air BMI result Body Mass Index 28.5 Labs 01/07/23 17:49 01/07/23 17:49 Labs: Laboratory Results - last 48 hr 04/10/23 04/10/23 04/10/23 06:05 11:31 16:30 POC Glucose 104 310 H 202 H 04/10/23 04/11/23 04/11/23 19:56 06:28 11:18 POC Glucose 204 H 138 H 386 H* 04/11/23 04/11/23 16:08 20:09 POC Glucose 286 H 273 H Imaging Radiology Impressions: ITS Impressions Venous Duplex 01/30/23 16:02 IMPRESSION: No DVT demonstrated in the bilateral lower extremity. Medications Medications Current Medications Artificial Tears (Artificial Tears 15 Ml Drops) 1 drop EYE-BOTH Q4H PRN PRN Reason: Dry Eyes Atorvastatin Calcium (Atorvastatin Calcium 20 Mg Tablet) 20 mg PO BEDTIME [facility] Last Admin: 04/11/23 20:37 Dose: 20 mg Bisacodyl (Bisacodyl 10 Mg Supp.Rect) 10 mg [place] DAILY PRN PRN Reason: Constipation Clopidogrel Bisulfate (Clopidogrel Bisulfate 75 Mg Tablet) 75 mg PO DAILY [facility] Last Admin: 04/11/23 08:05 Dose: 75 mg Donepezil HCl (Donepezil Hcl 10 Mg Tablet) 10 mg PO BEDTIME [facility] Last Admin: 04/11/23 20:37 Dose: 10 mg Escitalopram Oxalate (Escitalopram Oxalate 10 Mg Tablet) 10 mg PO DAILY [facility] Last Admin: 04/11/23 08:05 Dose: 10 mg Gabapentin (Gabapentin 600 Mg Tablet) 600 mg PO BEDTIME [facility] Last Admin: 04/11/23 20:37 Dose: 600 mg Gabapentin (Gabapentin 600 Mg Tablet) 600 mg PO DAILY@1300 [facility] Last Admin: 04/11/23 12:44 Dose: 600 mg Glucagon (Glucagon Hcl 1 Mg Vial) 1 mg SUBCUT Q20M PRN PRN Reason: BG <70 AND UNRESPONSIVE Glucose (Glucose Gel 15 Gm Gel..Gram.) 15 gm PO Q15M PRN PRN Reason: BG <70 AND RESPONSIVE Last Admin: 01/30/23 03:12 Dose: 15 gm Insulin Glargine (Insulin Glargine,Hum.Rec.Anlog 100 Unit/Ml 10 Ml Vial) 57 unit SUBCUT BEDTIME [facility] Last Admin: 04/11/23 20:39 Dose: 57 unit Insulin Glargine (Insulin Glargine,Hum.Rec.Anlog 100 Unit/Ml 10 Ml Vial) 10 unit SUBCUT DAILY [facility] Last Admin: 04/11/23 08:09 Dose: 10 unit Insulin Human Lispro (Insulin Lispro 100 Unit/Ml 3 Ml Vial) 0 unit SUBCUT TIDAC [facility]; Protocol Last Admin: 04/11/23 16:40 Dose: 9 unit Levothyroxine Sodium (Levothyroxine Sodium 75 Mcg Tablet) 75 mcg PO DAILY@0630 [facility] Last Admin: 04/11/23 05:51 Dose: 75 mcg Lidocaine (Lidocaine 4 % Patch Adh..Patch) 1 patch TRANSDERMA DAILY [facility]; Protocol Last Admin: 04/11/23 12:47 Dose: 1 patch Loperamide HCl (Loperamide Hcl 2 Mg Capsule) 2 mg PO Q6H PRN PRN Reason: diarrhea Last Admin: 03/19/23 17:40 Dose: 2 mg Loperamide HCl (Loperamide Hcl 2 Mg Capsule) 4 mg PO Q4H PRN PRN Reason: Diarrhea Last Admin: 04/07/23 01:14 Dose: 4 mg Magnesium Hydroxide (Milk Of Magnesia 30 Ml Oral.Susp) 30 ml PO DAILY PRN PRN Reason: Constipation Memantine (Memantine Hcl 10 Mg Tablet) 10 mg PO BID [facility] Last Admin: 04/11/23 20:37 Dose: 10 mg Metoprolol Tartrate (Metoprolol Tartrate 25 Mg Tablet) 25 mg PO DAILY [facility]; Protocol Last Admin: 04/11/23 08:05 Dose: 25 mg Pt Own Trulicity ( (Dulaglutide 0.75 Mg)) 0.75 mg SUBCUT Tu@1730 [facility] Last Admin: 04/08/23 17:22 Dose: 0.75 mg Sodium Biphosphate/Sodium Phosphate (Sodium Phosphate,[place]-Dibasic 133 Ml Enema) 133 ml [place] DAILY PRN PRN Reason: Constipation Trazodone HCl (Trazodone Hcl 50 Mg Tablet) 50 mg PO BEDTIME PRN PRN Reason: Insomnia Last Admin: 04/07/23 01:15 Dose: 50 mg Valsartan (Valsartan 80 Mg Tablet) 80 mg PO BEDTIME [facility]; Protocol Last Admin: 04/11/23 20:37 Dose: 80 mg Allergies Allergies Allergy/AdvReac Type Severity Reaction Status Date / Time aspirin [ASPIRIN] Allergy Unknown UNKNOWN Verified 01/01/23 09:43 Assessment & Plan Assessment & Plan (1) Major neurocognitive disorder: Status: Acute Code(s): F03.90 - Unspecified dementia, unspecified severity, without behavioral disturbance, psychotic disturbance, mood disturbance, and anxiety (2) Mood disorder: Status: Acute Code(s): F39 - Unspecified mood [affective] disorder Plan Ms. Landis is a 67 year-old woman with hx of Mood Disorder (untreated for most of her life) and neurocognitive disorder who was brought via EMS from [facility] due to increase verbal aggression towards roommate and one of their staff. Pt is known to this instructional writer through previous assessment for similar presentation. Pt presents as calmer, she does admit to being verbally abusive, although denies any intent to harm self or others. She does lack the insight into how her behaviors affect others and her relationships with others. This tendency to have difficulty seeing other people's need per daughter has been life long. Pt presents with tendency to be irritable, at times explosive but not physically aggressive. She was started back in September on low dose of seroquel but no further medication adjustments have been made to manage these symptoms, which are disruptive but not life threatening nor at imminent risk of harm to self or others. As consequence of minimal intervention in the community, pt has had more frequent ED visits here and at [facility]. We discussed risks, benefits and alternative treatment options, pt agrees to start mood stabilizer for impulsive, explosive behaviors. We also discussed switching seroquel to risperidone. Pt is orientation has been intact all along. PLAN 01/20 schedule trazodone 50mg po qhs for sleep. 01/21 continue tx. depakote levels scheduled for tomorrow AM with ammonia levels. 01/22 trough depakote level 75, ammonia 41. continue tx. continue tx 01/24 continue tx. 01/25 continue tx. 01/26 continue tx. 01/27: continue current mgmt. 01/28: continue current mgmt. 01/29 continue tx. 01/30 continue tx. 01/31 continues tx-continue monitor bilat LE- doppler did not show DVT. 02/01: No change in medications, continue current plan of care. 02/02: Continue current plan. 02/03: Continue current plans and regimen 02/04 continue tx. 02/05 continue tx. 02/06 continue tx. 02/07 continue tx. 02/09: no changes 02/10 continue tx. 02/11 continue tx. 02/12 continue tx. 02/13 continue tx. 02/14 continue tx. awaiting placement. 02/15: Continue current treatment plan. 02/16: Continue current plan. 02/17 continue tx. 02/18 continue tx. 02/19 continue tx. 02/20 continue tx. 02/21 continue tx. 02/22: Continue current plans and regimen 02/23: Continue current plans and regimen 02/24 continue tx 02/25 continue tx. 02/26 continue tx. 02/27 continue tx. 02/28 continue tx. 03/01 continue same treatment 03/02 continue same treatment 03/03 continue tx. 03/04 continue tx. awaiting placement 03/05 continue tx. 03/06 continue tx. awaiting placement. 03/07 continue tx. 03/08: received oxycodone 5, ativan 1 mg this morning for what appears to be lower back spasm. try flexeril 5 mg one time. otherwise continue current mgmt. 03/09: no c/o back pain today. calm, cooperative. no behavioral issues. asking when she will be discharging. continue current mgmt. 03/10 continue tx. 03/11 continue tx. 03/12 continue tx. 03/13 continue tx. 03/14 continue tx. 03/15: Continue current management and treatment plan. 03/16 continue tx. 03/17- continues tx. will add lidocaine back pain. 03/18 continue tx. 03/19 continue tx. 03/20 continue same treatment 03/21 continue same treatment 03/22 continue tx. 03/23 continue tx. 03/24 continue tx. 03/25 continue tx. 03/26 continue tx. 03/27 continue tx. 03/28 continue treatment, waiting for placement 03/30/23: No changes 03/31 continue treatment 04/01 continue treatment 04/02 continue treatment 04/03 continue treatment 04/04 continue treatment 04/05 continue treatment 04/06 continue treatment 04/07 continue tx. 04/08 pt seen by hospitalist to adjust DM meds given increase in BS, added glipizide. 04/09 continue tx 04/10 continue tx. 04/11 continue tx. Reason for continued inpatient stay Substantial Risk for: inability to function Time Spent With Patient Time: Total time managing care of this patient today ____ minutes.
[2023-04-11] MEDS: traZODone HCL 50 MG TABLET PO (22:16)
[2023-04-11] MEDS: Acetaminophen 325 MG TABLET 650 MG PO (22:16)
[2023-04-12] MEDS: Levothyroxine Sodium 75 MCG TABLET PO (06:04)
[2023-04-12 06:48] LABS: Glucose, Whole Blood 109 mg/dL (60-115)
[2023-04-12] MEDS: Acetaminophen 325 MG TABLET 650 MG PO (06:49)
[2023-04-12 08:00] VITALS: BP 175/77; PULSE 76; RESP 18; TEMP 36.3; O2SAT 95
[2023-04-12] MEDS: Insulin Glargine,Hum.rec.anlog 100 UNIT/ML 10 ML VIAL 10 UNIT SUBCUT (08:19)
[2023-04-12] MEDS: Memantine HCl 10 MG TABLET PO ×2 (08:19→23:07)
[2023-04-12] MEDS: Escitalopram Oxalate 10 MG TABLET PO (08:19)
[2023-04-12] MEDS: Clopidogrel Bisulfate 75 MG TABLET PO (08:19)
[2023-04-12] MEDS: Metoprolol Tartrate 25 MG TABLET PO (08:19)
[2023-04-12] MEDS: Lidocaine 4 % Patch ADH..PATCH 1 PATCH TRANSDERMA (08:20)
[2023-04-12 10:15] VITALS: BP 120/56; PULSE 69; RESP 18
[2023-04-12 11:21] LABS: Glucose, Whole Blood 294 mg/dL (60-115)
[2023-04-12] MEDS: Insulin Lispro 100 UNIT/ML 3 ML VIAL SUBCUT ×3 (11:33→23:08)
[2023-04-12] MEDS: Gabapentin 600 MG TABLET PO ×2 (13:09→23:07)
--- NOTE | 2023-04-12 15:49 | P.PNPSI_ITS ---
Subjective Subjective Date of Service: 04/12/23 Reason For Visit: Depression Interim History: Pt continues to sleep through the night. Pt continues to present with bright affect, reports she is doing good. She attends all assigned groups. She denies any physical concerns. No SI/HI. No VH/AH. Review of Systems Review of Systems Unremarkable Yes all other systems are reviewed and are negative Mental Status Exam Mental Status Exam Narrative: Appearance: Casual attire, good hygiene, in NAD, ambulating with walker Behavior: cooperative, calm Psychomotor: no agitation noted Speech: clear, normal rate/rhythm/volume, spontaneous TP: linear Mood: good Affect: Calm VH/AH: none expressed Delusions: none expressed Insight/judgment: fair x 2. Memory/cog: alert, oriented x 3. Patient Appearance: Appropriate Patient Orientation: Person and Situation Level of Consciousness: Awake and Appropriate Patient Behavior: Guarded and Passive Mood Description: Withdrawn Affect Description: Constricted Patient Cognition Impaired: Yes Ability to Follow Directions: Good Speech Pattern: Clear Diagnostics Vital Signs (24Hr): Vital Signs - 24 hr 04/11/23 19:35 04/12/23 08:00 04/12/23 10:15 Temperature 97.5 F 97.4 F Pulse Rate 75 76 69 Respiratory Rate 18 18 18 Blood Pressure 145/69 H 175/77 H 120/56 L Pulse Oximetry 95 95 Oxygen Delivery Method Room Air Room Air BMI result Body Mass Index 28.5 Labs 01/07/23 17:49 01/07/23 17:49 Labs: Laboratory Results - last 48 hr 04/10/23 04/10/23 04/11/23 16:30 19:56 06:28 POC Glucose 202 H 204 H 138 H 04/11/23 04/11/23 04/11/23 11:18 16:08 20:09 POC Glucose 386 H* 286 H 273 H 04/12/23 04/12/23 06:18 11:17 POC Glucose 109 294 H Imaging Radiology Impressions: ITS Impressions Venous Duplex 01/30/23 16:02 IMPRESSION: No DVT demonstrated in the bilateral lower extremity. Medications Medications Current Medications Acetaminophen (Acetaminophen 325 Mg Tablet) 650 mg PO Q6H PRN PRN Reason: Pain, Mild (Pain Scale 1-3) Last Admin: 04/12/23 06:49 Dose: 650 mg Artificial Tears (Artificial Tears 15 Ml Drops) 1 drop EYE-BOTH Q4H PRN PRN Reason: Dry Eyes Atorvastatin Calcium (Atorvastatin Calcium 20 Mg Tablet) 20 mg PO BEDTIME [facility] Last Admin: 04/11/23 20:37 Dose: 20 mg Bisacodyl (Bisacodyl 10 Mg Supp.Rect) 10 mg [place] DAILY PRN PRN Reason: Constipation Clopidogrel Bisulfate (Clopidogrel Bisulfate 75 Mg Tablet) 75 mg PO DAILY [facility] Last Admin: 04/12/23 08:19 Dose: 75 mg Donepezil HCl (Donepezil Hcl 10 Mg Tablet) 10 mg PO BEDTIME [facility] Last Admin: 04/11/23 20:37 Dose: 10 mg Escitalopram Oxalate (Escitalopram Oxalate 10 Mg Tablet) 10 mg PO DAILY [facility] Last Admin: 04/12/23 08:19 Dose: 10 mg Gabapentin (Gabapentin 600 Mg Tablet) 600 mg PO BEDTIME [facility] Last Admin: 04/11/23 20:37 Dose: 600 mg Gabapentin (Gabapentin 600 Mg Tablet) 600 mg PO DAILY@1300 [facility] Last Admin: 04/12/23 13:09 Dose: 600 mg Glucagon (Glucagon Hcl 1 Mg Vial) 1 mg SUBCUT Q20M PRN PRN Reason: BG <70 AND UNRESPONSIVE Glucose (Glucose Gel 15 Gm Gel..Gram.) 15 gm PO Q15M PRN PRN Reason: BG <70 AND RESPONSIVE Last Admin: 01/30/23 03:12 Dose: 15 gm Insulin Glargine (Insulin Glargine,Hum.Rec.Anlog 100 Unit/Ml 10 Ml Vial) 57 unit SUBCUT BEDTIME [facility] Last Admin: 04/11/23 20:39 Dose: 57 unit Insulin Glargine (Insulin Glargine,Hum.Rec.Anlog 100 Unit/Ml 10 Ml Vial) 10 unit SUBCUT DAILY [facility] Last Admin: 04/12/23 08:19 Dose: 10 unit Insulin Human Lispro (Insulin Lispro 100 Unit/Ml 3 Ml Vial) 0 unit SUBCUT TIDAC [facility]; Protocol Last Admin: 04/12/23 11:33 Dose: 9 unit Levothyroxine Sodium (Levothyroxine Sodium 75 Mcg Tablet) 75 mcg PO DAILY@0630 [facility] Last Admin: 04/12/23 06:04 Dose: 75 mcg Lidocaine (Lidocaine 4 % Patch Adh..Patch) 1 patch TRANSDERMA DAILY [facility]; Protocol Last Admin: 04/12/23 08:20 Dose: 1 patch Loperamide HCl (Loperamide Hcl 2 Mg Capsule) 2 mg PO Q6H PRN PRN Reason: diarrhea Last Admin: 03/19/23 17:40 Dose: 2 mg Loperamide HCl (Loperamide Hcl 2 Mg Capsule) 4 mg PO Q4H PRN PRN Reason: Diarrhea Last Admin: 04/07/23 01:14 Dose: 4 mg Magnesium Hydroxide (Milk Of Magnesia 30 Ml Oral.Susp) 30 ml PO DAILY PRN PRN Reason: Constipation Memantine (Memantine Hcl 10 Mg Tablet) 10 mg PO BID [facility] Last Admin: 04/12/23 08:19 Dose: 10 mg Metoprolol Tartrate (Metoprolol Tartrate 25 Mg Tablet) 25 mg PO DAILY [facility]; Protocol Last Admin: 04/12/23 08:19 Dose: 25 mg Pt Own Trulicity ( (Dulaglutide 0.75 Mg)) 0.75 mg SUBCUT Tu@1730 [facility] Last Admin: 04/08/23 17:22 Dose: 0.75 mg Sodium Biphosphate/Sodium Phosphate (Sodium Phosphate,[place]-Dibasic 133 Ml Enema) 133 ml [place] DAILY PRN PRN Reason: Constipation Trazodone HCl (Trazodone Hcl 50 Mg Tablet) 50 mg PO BEDTIME PRN PRN Reason: Insomnia Last Admin: 04/11/23 22:16 Dose: 50 mg Valsartan (Valsartan 80 Mg Tablet) 80 mg PO BEDTIME [facility]; Protocol Last Admin: 04/11/23 20:37 Dose: 80 mg Allergies Allergies Allergy/AdvReac Type Severity Reaction Status Date / Time aspirin [ASPIRIN] Allergy Unknown UNKNOWN Verified 01/01/23 09:43 Assessment & Plan Assessment & Plan (1) Major neurocognitive disorder: Status: Acute Code(s): F03.90 - Unspecified dementia, unspecified severity, without behavioral disturbance, psychotic disturbance, mood disturbance, and anxiety (2) Mood disorder: Status: Acute Code(s): F39 - Unspecified mood [affective] disorder Plan Ms. Landis is a 67 year-old woman with hx of Mood Disorder (untreated for most of her life) and neurocognitive disorder who was brought via EMS from [facility] due to increase verbal aggression towards roommate and one of their staff. Pt is known to this card writer hand through previous assessment for similar presentation. Pt presents as calmer, she does admit to being verbally abusive, although denies any intent to harm self or others. She does lack the insight into how her behaviors affect others and her relationships with others. This tendency to have difficulty seeing other people's need per daughter has been life long. Pt presents with tendency to be irritable, at times explosive but not physically aggressive. She was started back in September on low dose of seroquel but no further medication adjustments have been made to manage these symptoms, which are disruptive but not life threatening nor at imminent risk of harm to self or others. As consequence of minimal intervention in the community, pt has had more frequent ED visits here and at [facility]. We discussed risks, benefits and alternative treatment options, pt agrees to start mood stabilizer for impulsive, explosive behaviors. We also discussed switching seroquel to risperidone. Pt is orientation has been intact all along. PLAN 01/20 schedule trazodone 50mg po qhs for sleep. 01/21 continue tx. depakote levels scheduled for tomorrow AM with ammonia levels. 01/22 trough depakote level 75, ammonia 41. continue tx. continue tx 01/24 continue tx. 01/25 continue tx. 01/26 continue tx. 01/27: continue current mgmt. 01/28: continue current mgmt. 01/29 continue tx. 01/30 continue tx. 01/31 continues tx-continue monitor bilat LE- doppler did not show DVT. 02/01: No change in medications, continue current plan of care. 02/02: Continue current plan. 02/03: Continue current plans and regimen 02/04 continue tx. 02/05 continue tx. 02/06 continue tx. 02/07 continue tx. 02/09: no changes 02/10 continue tx. 02/11 continue tx. 02/12 continue tx. 02/13 continue tx. 02/14 continue tx. awaiting placement. 02/15: Continue current treatment plan. 02/16: Continue current plan. 02/17 continue tx. 02/18 continue tx. 02/19 continue tx. 02/20 continue tx. 02/21 continue tx. 02/22: Continue current plans and regimen 02/23: Continue current plans and regimen 02/24 continue tx 02/25 continue tx. 02/26 continue tx. 02/27 continue tx. 02/28 continue tx. 03/01 continue same treatment 03/02 continue same treatment 03/03 continue tx. 03/04 continue tx. awaiting placement 03/05 continue tx. 03/06 continue tx. awaiting placement. 03/07 continue tx. 03/08: received oxycodone 5, ativan 1 mg this morning for what appears to be lower back spasm. try flexeril 5 mg one time. otherwise continue current mgmt. 03/09: no c/o back pain today. calm, cooperative. no behavioral issues. asking when she will be discharging. continue current mgmt. 03/10 continue tx. 03/11 continue tx. 03/12 continue tx. 03/13 continue tx. 03/14 continue tx. 03/15: Continue current management and treatment plan. 03/16 continue tx. 03/17- continues tx. will add lidocaine back pain. 03/18 continue tx. 03/19 continue tx. 03/20 continue same treatment 03/21 continue same treatment 03/22 continue tx. 03/23 continue tx. 03/24 continue tx. 03/25 continue tx. 03/26 continue tx. 03/27 continue tx. 03/28 continue treatment, waiting for placement 03/30/23: No changes 03/31 continue treatment 04/01 continue treatment 04/02 continue treatment 04/03 continue treatment 04/04 continue treatment 04/05 continue treatment 04/06 continue treatment 04/07 continue tx. 04/08 pt seen by hospitalist to adjust DM meds given increase in BS, added glipizide. 04/09 continue tx 04/10 continue tx. 04/11: Continue current tx plan. Reason for continued inpatient stay Substantial Risk for: inability to function and rapid decompensation Time Spent With Patient Time: Total time managing care of this patient today ____ minutes.
[2023-04-12 16:20] LABS: Glucose, Whole Blood 313 mg/dL (60-115)
[2023-04-12 18:00] VITALS: BP 160/72; PULSE 75; RESP 18; TEMP 36.3; O2SAT 96
--- NOTE | 2023-04-12 18:06 | PC.NURSE ---
Patient's BP 175/77, P 76 at 8AM. Re-check after medication administration for 120/56, P 69. POC before lunch 294 and 313 before supper. Covered with Lispro per sliding scale both times as ordered. No signs of diabetic reaction noted. Dr Ray Langley notified.
[2023-04-12 20:02] LABS: Glucose, Whole Blood 302 mg/dL (60-115)
[2023-04-12] MEDS: Valsartan 80 MG TABLET PO (23:07)
[2023-04-12] MEDS: Atorvastatin Calcium 20 MG TABLET PO (23:07)
[2023-04-12] MEDS: Donepezil HCl 10 MG TABLET PO (23:07)
[2023-04-13] MEDS: Insulin Glargine,Hum.rec.anlog 100 UNIT/ML 10 ML VIAL 57 UNIT SUBCUT ×2 (00:41→20:54)
[2023-04-13] MEDS: Acetaminophen 325 MG TABLET 650 MG PO ×3 (03:09→20:54)
[2023-04-13 06:30] LABS: Glucose, Whole Blood 87 mg/dL (60-115)
[2023-04-13] MEDS: Levothyroxine Sodium 75 MCG TABLET PO (06:33)
[2023-04-13 08:00] VITALS: BP 139/62; PULSE 72; RESP 18; TEMP 36.3; O2SAT 95
[2023-04-13] MEDS: Memantine HCl 10 MG TABLET PO ×2 (08:15→20:54)
[2023-04-13] MEDS: Insulin Glargine,Hum.rec.anlog 100 UNIT/ML 10 ML VIAL 10 UNIT SUBCUT (08:15)
[2023-04-13] MEDS: Clopidogrel Bisulfate 75 MG TABLET PO (08:15)
[2023-04-13] MEDS: Metoprolol Tartrate 25 MG TABLET PO (08:15)
[2023-04-13] MEDS: Escitalopram Oxalate 10 MG TABLET PO (08:15)
[2023-04-13] MEDS: Lidocaine 4 % Patch ADH..PATCH 1 PATCH TRANSDERMA (08:16)
[2023-04-13 11:31] LABS: Glucose, Whole Blood 323 mg/dL (60-115)
[2023-04-13] MEDS: Insulin Lispro 100 UNIT/ML 3 ML VIAL SUBCUT (11:41)
[2023-04-13] MEDS: Gabapentin 600 MG TABLET PO ×2 (12:59→20:53)
--- NOTE | 2023-04-13 13:37 | HO.PSYCHPN ---
Subjective Subjective Date of Service: 04/13/23 Reason For Visit: Depression Interim History: Patient doing well regarding behavior, mood, and is pleasant. Today developed sudden right lower extremity pain. Seen with record tester. Says it started suddenly. Generalized. No falls. Denies trauma to lower extremity. Says she was just sitting and it started. Denies abdominal pain. Denies back pain. She attends all assigned groups. No SI/HI. No VH/AH. Review of Systems Review of Systems Unremarkable Yes all other systems are reviewed and are negative Mental Status Exam Mental Status Exam Narrative: Appearance: Casual attire, good hygiene, uncomfortable in bed. Complaining of leg pain Behavior: cooperative, calm Psychomotor: no agitation noted Speech: clear, normal rate/rhythm/volume, spontaneous TP: linear Mood: good Affect: tearful VH/AH: none expressed Delusions: none expressed Insight/judgment: fair x 2. Memory/cog: alert, oriented x 3. Patient Appearance: Appropriate Patient Orientation: Person and Situation Level of Consciousness: Awake and Appropriate Patient Behavior: Guarded and Passive Mood Description: Withdrawn Affect Description: Constricted Patient Cognition Impaired: Yes Ability to Follow Directions: Good Speech Pattern: Clear Diagnostics Vital Signs (24Hr): Vital Signs - 24 hr 04/12/23 18:00 04/13/23 08:00 Temperature 97.3 F 97.3 F Pulse Rate 75 72 Respiratory Rate 18 18 Blood Pressure 160/72 H 139/62 Pulse Oximetry 96 95 Oxygen Delivery Method Room Air Room Air BMI result Body Mass Index 28.5 Labs 01/07/23 17:49 01/07/23 17:49 Labs: Laboratory Results - last 48 hr 04/11/23 04/11/23 04/12/23 16:08 20:09 06:18 POC Glucose 286 H 273 H 109 04/12/23 04/12/23 04/12/23 11:17 16:07 19:40 POC Glucose 294 H 313 H 302 H 04/13/23 04/13/23 06:21 11:26 POC Glucose 87 323 H Imaging Radiology Impressions: ITS Impressions Venous Duplex 01/30/23 16:02 IMPRESSION: No DVT demonstrated in the bilateral lower extremity. Medications Medications Current Medications Acetaminophen (Acetaminophen 325 Mg Tablet) 650 mg PO Q6H PRN PRN Reason: Pain, Mild (Pain Scale 1-3) Last Admin: 04/13/23 13:20 Dose: 650 mg Artificial Tears (Artificial Tears 15 Ml Drops) 1 drop EYE-BOTH Q4H PRN PRN Reason: Dry Eyes Atorvastatin Calcium (Atorvastatin Calcium 20 Mg Tablet) 20 mg PO BEDTIME [facility] Last Admin: 04/12/23 23:07 Dose: 20 mg Bisacodyl (Bisacodyl 10 Mg Supp.Rect) 10 mg [place] DAILY PRN PRN Reason: Constipation Clopidogrel Bisulfate (Clopidogrel Bisulfate 75 Mg Tablet) 75 mg PO DAILY [facility] Last Admin: 04/13/23 08:15 Dose: 75 mg Donepezil HCl (Donepezil Hcl 10 Mg Tablet) 10 mg PO BEDTIME [facility] Last Admin: 04/12/23 23:07 Dose: 10 mg Escitalopram Oxalate (Escitalopram Oxalate 10 Mg Tablet) 10 mg PO DAILY [facility] Last Admin: 04/13/23 08:15 Dose: 10 mg Gabapentin (Gabapentin 600 Mg Tablet) 600 mg PO BEDTIME [facility] Last Admin: 04/12/23 23:07 Dose: 600 mg Gabapentin (Gabapentin 600 Mg Tablet) 600 mg PO DAILY@1300 [facility] Last Admin: 04/13/23 12:59 Dose: 600 mg Glucagon (Glucagon Hcl 1 Mg Vial) 1 mg SUBCUT Q20M PRN PRN Reason: BG <70 AND UNRESPONSIVE Glucose (Glucose Gel 15 Gm Gel..Gram.) 15 gm PO Q15M PRN PRN Reason: BG <70 AND RESPONSIVE Last Admin: 01/30/23 03:12 Dose: 15 gm Insulin Glargine (Insulin Glargine,Hum.Rec.Anlog 100 Unit/Ml 10 Ml Vial) 57 unit SUBCUT BEDTIME [facility] Last Admin: 04/13/23 00:41 Dose: 57 unit Insulin Glargine (Insulin Glargine,Hum.Rec.Anlog 100 Unit/Ml 10 Ml Vial) 10 unit SUBCUT DAILY [facility] Last Admin: 04/13/23 08:15 Dose: 10 unit Insulin Human Lispro (Insulin Lispro 100 Unit/Ml 3 Ml Vial) 0 unit SUBCUT TIDAC [facility]; Protocol Last Admin: 04/13/23 11:41 Dose: 11 unit Levothyroxine Sodium (Levothyroxine Sodium 75 Mcg Tablet) 75 mcg PO DAILY@0630 [facility] Last Admin: 04/13/23 06:33 Dose: 75 mcg Lidocaine (Lidocaine 4 % Patch Adh..Patch) 1 patch TRANSDERMA DAILY [facility]; Protocol Last Admin: 04/13/23 08:16 Dose: 1 patch Loperamide HCl (Loperamide Hcl 2 Mg Capsule) 2 mg PO Q6H PRN PRN Reason: diarrhea Last Admin: 03/19/23 17:40 Dose: 2 mg Loperamide HCl (Loperamide Hcl 2 Mg Capsule) 4 mg PO Q4H PRN PRN Reason: Diarrhea Last Admin: 04/07/23 01:14 Dose: 4 mg Magnesium Hydroxide (Milk Of Magnesia 30 Ml Oral.Susp) 30 ml PO DAILY PRN PRN Reason: Constipation Memantine (Memantine Hcl 10 Mg Tablet) 10 mg PO BID [facility] Last Admin: 04/13/23 08:15 Dose: 10 mg Metoprolol Tartrate (Metoprolol Tartrate 25 Mg Tablet) 25 mg PO DAILY [facility]; Protocol Last Admin: 04/13/23 08:15 Dose: 25 mg Pt Own Trulicity ( (Dulaglutide 0.75 Mg)) 0.75 mg SUBCUT Tu@1730 [facility] Last Admin: 04/08/23 17:22 Dose: 0.75 mg Sodium Biphosphate/Sodium Phosphate (Sodium Phosphate,[place]-Dibasic 133 Ml Enema) 133 ml [place] DAILY PRN PRN Reason: Constipation Trazodone HCl (Trazodone Hcl 50 Mg Tablet) 50 mg PO BEDTIME PRN PRN Reason: Insomnia Last Admin: 04/11/23 22:16 Dose: 50 mg Valsartan (Valsartan 80 Mg Tablet) 80 mg PO BEDTIME [facility]; Protocol Last Admin: 04/12/23 23:07 Dose: 80 mg Allergies Allergies Allergy/AdvReac Type Severity Reaction Status Date / Time aspirin [ASPIRIN] Allergy Unknown UNKNOWN Verified 01/01/23 09:43 Assessment & Plan Assessment & Plan (1) Major neurocognitive disorder: Status: Acute Code(s): F03.90 - Unspecified dementia, unspecified severity, without behavioral disturbance, psychotic disturbance, mood disturbance, and anxiety (2) Mood disorder: Status: Acute Code(s): F39 - Unspecified mood [affective] disorder Plan Ms. Landis is a 67 year-old woman with hx of Mood Disorder (untreated for most of her life) and neurocognitive disorder who was brought via EMS from [facility] due to increase verbal aggression towards roommate and one of their staff. Pt is known to this video game script writer through previous assessment for similar presentation. Pt presents as calmer, she does admit to being verbally abusive, although denies any intent to harm self or others. She does lack the insight into how her behaviors affect others and her relationships with others. This tendency to have difficulty seeing other people's need per daughter has been life long. Pt presents with tendency to be irritable, at times explosive but not physically aggressive. She was started back in September on low dose of seroquel but no further medication adjustments have been made to manage these symptoms, which are disruptive but not life threatening nor at imminent risk of harm to self or others. As consequence of minimal intervention in the community, pt has had more frequent ED visits here and at [facility]. We discussed risks, benefits and alternative treatment options, pt agrees to start mood stabilizer for impulsive, explosive behaviors. We also discussed switching seroquel to risperidone. Pt is orientation has been intact all along. PLAN 01/20 schedule trazodone 50mg po qhs for sleep. 01/21 continue tx. depakote levels scheduled for tomorrow AM with ammonia levels. 01/22 trough depakote level 75, ammonia 41. continue tx. continue tx 01/24 continue tx. 01/25 continue tx. 01/26 continue tx. 01/27: continue current mgmt. 01/28: continue current mgmt. 01/29 continue tx. 01/30 continue tx. 01/31 continues tx-continue monitor bilat LE- doppler did not show DVT. 02/01: No change in medications, continue current plan of care. 02/02: Continue current plan. 02/03: Continue current plans and regimen 02/04 continue tx. 02/05 continue tx. 02/06 continue tx. 02/07 continue tx. 02/09: no changes 02/10 continue tx. 02/11 continue tx. 02/12 continue tx. 02/13 continue tx. 02/14 continue tx. awaiting placement. 02/15: Continue current treatment plan. 02/16: Continue current plan. 02/17 continue tx. 02/18 continue tx. 02/19 continue tx. 02/20 continue tx. 02/21 continue tx. 02/22: Continue current plans and regimen 02/23: Continue current plans and regimen 02/24 continue tx 02/25 continue tx. 02/26 continue tx. 02/27 continue tx. 02/28 continue tx. 03/01 continue same treatment 03/02 continue same treatment 03/03 continue tx. 03/04 continue tx. awaiting placement 03/05 continue tx. 03/06 continue tx. awaiting placement. 03/07 continue tx. 03/08: received oxycodone 5, ativan 1 mg this morning for what appears to be lower back spasm. try flexeril 5 mg one time. otherwise continue current mgmt. 03/09: no c/o back pain today. calm, cooperative. no behavioral issues. asking when she will be discharging. continue current mgmt. 03/10 continue tx. 03/11 continue tx. 03/12 continue tx. 03/13 continue tx. 03/14 continue tx. 03/15: Continue current management and treatment plan. 03/16 continue tx. 03/17- continues tx. will add lidocaine back pain. 03/18 continue tx. 03/19 continue tx. 03/20 continue same treatment 03/21 continue same treatment 03/22 continue tx. 03/23 continue tx. 03/24 continue tx. 03/25 continue tx. 03/26 continue tx. 03/27 continue tx. 03/28 continue treatment, waiting for placement 03/30/23: No changes 03/31 continue treatment 04/01 continue treatment 04/02 continue treatment 04/03 continue treatment 04/04 continue treatment 04/05 continue treatment 04/06 continue treatment 04/07 continue tx. 04/08 pt seen by hospitalist to adjust DM meds given increase in BS, added glipizide. 04/09 continue tx 04/10 continue tx. 04/11: Continue current tx plan. 04/12: Consult medicine. Tylenol and GBP given. Motrin 400 mg x 1. Reason for continued inpatient stay Substantial Risk for: inability to function, rapid decompensation and med/psych decompensation Time Spent With Patient Time: Total time managing care of this patient today ____ minutes.
[2023-04-13] MEDS: Ibuprofen 400 MG TABLET PO (13:49)
[2023-04-13 14:00] VITALS: BP 154/70; PULSE 64; RESP 18; TEMP 36.8
--- NOTE | 2023-04-13 14:41 | PM.EVENT ---
Event Note Date of Service: 04/13/23 Event Note: The patient was seen and evaluated complaining of bilateral LE pain that include the who leg up to above the knees No swelling, erythema but has tenderness all over her legs Could be neuropathic pain or related to arthritis, less likely DVT Will get Knees XR Tylenol, Increase Gabapentin As needed Ibuprofen Time Spent With Patient Time: Total time managing care of this patient today ____ minutes.
[2023-04-13] MEDS: LORazepam 0.5 MG TABLET PO (18:55)
--- NOTE | 2023-04-13 19:26 | P.PNPSI_ITS ---
Subjective Subjective Date of Service: 04/13/23 Reason For Visit: Depression Interim History: Pt sleeping through the night. No behavioral concerns. She denies any physical concerns. No SI/HI. She takes medications as prescribed. awaiting placement. Review of Systems Review of Systems Unremarkable Yes all other systems are reviewed and are negative Mental Status Exam Mental Status Exam Narrative: Appearance: Casual attire, good hygiene, uncomfortable in bed. Complaining of leg pain Behavior: cooperative, calm Psychomotor: no agitation noted Speech: clear, normal rate/rhythm/volume, spontaneous TP: linear Mood: good Affect: tearful VH/AH: none expressed Delusions: none expressed Insight/judgment: fair x 2. Memory/cog: alert, oriented x 3. Patient Appearance: Appropriate Patient Orientation: Person and Situation Level of Consciousness: Awake and Appropriate Patient Behavior: Guarded and Passive Mood Description: Withdrawn Affect Description: Constricted Patient Cognition Impaired: Yes Ability to Follow Directions: Good Speech Pattern: Clear Diagnostics Vital Signs (24Hr): Vital Signs - 24 hr 04/13/23 08:00 04/13/23 14:00 Temperature 97.3 F 98.3 F Pulse Rate 72 64 Respiratory Rate 18 18 Blood Pressure 139/62 154/70 H Pulse Oximetry 95 Oxygen Delivery Method Room Air BMI result Body Mass Index 28.5 Labs 01/07/23 17:49 01/07/23 17:49 Labs: Laboratory Results - last 48 hr 04/11/23 04/12/23 04/12/23 20:09 06:18 11:17 POC Glucose 273 H 109 294 H 04/12/23 04/12/23 04/13/23 16:07 19:40 06:21 POC Glucose 313 H 302 H 87 04/13/23 11:26 POC Glucose 323 H Imaging Radiology Impressions: ITS Impressions Venous Duplex 01/30/23 16:02 IMPRESSION: No DVT demonstrated in the bilateral lower extremity. Knee X-Ray 04/13/23 16:15 IMPRESSION: Mild degenerative changes medial and patellofemoral compartment both knees. No visible acute fracture, dislocation or subluxation seen. Knee X-Ray 04/13/23 16:15 IMPRESSION: Mild degenerative changes medial and patellofemoral compartment both knees. No visible acute fracture, dislocation or subluxation seen. Medications Medications Current Medications Acetaminophen (Acetaminophen 325 Mg Tablet) 650 mg PO TID [facility] Last Admin: 04/13/23 15:59 Dose: Not Given Artificial Tears (Artificial Tears 15 Ml Drops) 1 drop EYE-BOTH Q4H PRN PRN Reason: Dry Eyes Atorvastatin Calcium (Atorvastatin Calcium 20 Mg Tablet) 20 mg PO BEDTIME [facility] Last Admin: 04/12/23 23:07 Dose: 20 mg Bisacodyl (Bisacodyl 10 Mg Supp.Rect) 10 mg ND DAILY PRN PRN Reason: Constipation Clopidogrel Bisulfate (Clopidogrel Bisulfate 75 Mg Tablet) 75 mg PO DAILY [facility] Last Admin: 04/13/23 08:15 Dose: 75 mg Donepezil HCl (Donepezil Hcl 10 Mg Tablet) 10 mg PO BEDTIME [facility] Last Admin: 04/12/23 23:07 Dose: 10 mg Escitalopram Oxalate (Escitalopram Oxalate 10 Mg Tablet) 10 mg PO DAILY [facility] Last Admin: 04/13/23 08:15 Dose: 10 mg Gabapentin (Gabapentin 600 Mg Tablet) 600 mg PO BEDTIME [facility] Last Admin: 04/12/23 23:07 Dose: 600 mg Gabapentin (Gabapentin 600 Mg Tablet) 600 mg PO DAILY@1300 [facility] Last Admin: 04/13/23 12:59 Dose: 600 mg Glucagon (Glucagon Hcl 1 Mg Vial) 1 mg SUBCUT Q20M PRN PRN Reason: BG <70 AND UNRESPONSIVE Glucose (Glucose Gel 15 Gm Gel..Gram.) 15 gm PO Q15M PRN PRN Reason: BG <70 AND RESPONSIVE Last Admin: 01/30/23 03:12 Dose: 15 gm Insulin Glargine (Insulin Glargine,Hum.Rec.Anlog 100 Unit/Ml 10 Ml Vial) 57 unit SUBCUT BEDTIME [facility] Last Admin: 04/13/23 00:41 Dose: 57 unit Insulin Glargine (Insulin Glargine,Hum.Rec.Anlog 100 Unit/Ml 10 Ml Vial) 10 unit SUBCUT DAILY [facility] Last Admin: 04/13/23 08:15 Dose: 10 unit Insulin Human Lispro (Insulin Lispro 100 Unit/Ml 3 Ml Vial) 0 unit SUBCUT TIDAC [facility]; Protocol Last Admin: 04/13/23 16:28 Dose: Not Given Levothyroxine Sodium (Levothyroxine Sodium 75 Mcg Tablet) 75 mcg PO DAILY@0630 [facility] Last Admin: 04/13/23 06:33 Dose: 75 mcg Lidocaine (Lidocaine 4 % Patch Adh..Patch) 1 patch TRANSDERMA DAILY [facility]; Protocol Last Admin: 04/13/23 08:16 Dose: 1 patch Loperamide HCl (Loperamide Hcl 2 Mg Capsule) 2 mg PO Q6H PRN PRN Reason: diarrhea Last Admin: 03/19/23 17:40 Dose: 2 mg Loperamide HCl (Loperamide Hcl 2 Mg Capsule) 4 mg PO Q4H PRN PRN Reason: Diarrhea Last Admin: 04/07/23 01:14 Dose: 4 mg Magnesium Hydroxide (Milk Of Magnesia 30 Ml Oral.Susp) 30 ml PO DAILY PRN PRN Reason: Constipation Memantine (Memantine Hcl 10 Mg Tablet) 10 mg PO BID [facility] Last Admin: 04/13/23 08:15 Dose: 10 mg Metoprolol Tartrate (Metoprolol Tartrate 25 Mg Tablet) 25 mg PO DAILY [facility]; Protocol Last Admin: 04/13/23 08:15 Dose: 25 mg Pt Own Trulicity ( (Dulaglutide 0.75 Mg)) 0.75 mg SUBCUT Tu@1730 [facility] Last Admin: 04/08/23 17:22 Dose: 0.75 mg Sodium Biphosphate/Sodium Phosphate (Sodium Phosphate,[place]-Dibasic 133 Ml Enema) 133 ml ND DAILY PRN PRN Reason: Constipation Trazodone HCl (Trazodone Hcl 50 Mg Tablet) 50 mg PO BEDTIME PRN PRN Reason: Insomnia Last Admin: 04/11/23 22:16 Dose: 50 mg Valsartan (Valsartan 80 Mg Tablet) 80 mg PO BEDTIME [facility]; Protocol Last Admin: 04/12/23 23:07 Dose: 80 mg Allergies Allergies Allergy/AdvReac Type Severity Reaction Status Date / Time aspirin [ASPIRIN] Allergy Unknown UNKNOWN Verified 01/01/23 09:43 Assessment & Plan Assessment & Plan (1) Major neurocognitive disorder: Status: Acute Code(s): F03.90 - Unspecified dementia, unspecified severity, without behavioral disturbance, psychotic disturbance, mood disturbance, and anxiety (2) Mood disorder: Status: Acute Code(s): F39 - Unspecified mood [affective] disorder Plan Ms. Landis is a 67 year-old woman with hx of Mood Disorder (untreated for most of her life) and neurocognitive disorder who was brought via EMS from [facility] due to increase verbal aggression towards roommate and one of their staff. 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 Pt presents as calmer, she does admit to being verbally abusive, although denies any intent to harm self or others. She does lack the insight into how her behaviors affect others and her relationships with others. This tendency to have difficulty seeing other people's need per daughter has been life long. Pt presents with tendency to be irritable, at times explosive but not physically aggressive. She was started back in September on low dose of seroquel but no further medication adjustments have been made to manage these symptoms, which are disruptive but not life threatening nor at imminent risk of harm to self or others. As consequence of minimal intervention in the community, pt has had more frequent ED visits here and at [facility]. We discussed risks, benefits and alternative treatment options, pt agrees to start mood stabilizer for impulsive, explosive behaviors. We also discussed switching seroquel to risperidone. Pt is orientation has been intact all along. PLAN 01/20 schedule trazodone 50mg po qhs for sleep. 01/21 continue tx. depakote levels scheduled for tomorrow AM with ammonia levels. 01/22 trough depakote level 75, ammonia 41. continue tx. continue tx 01/24 continue tx. 01/25 continue tx. 01/26 continue tx. 01/27: continue current mgmt. 01/28: continue current mgmt. 01/29 continue tx. 01/30 continue tx. 01/31 continues tx-continue monitor bilat LE- doppler did not show DVT. 02/01: No change in medications, continue current plan of care. 02/02: Continue current plan. 02/03: Continue current plans and regimen 02/04 continue tx. 02/05 continue tx. 02/06 continue tx. 02/07 continue tx. 02/09: no changes 02/10 continue tx. 02/11 continue tx. 02/12 continue tx. 02/13 continue tx. 02/14 continue tx. awaiting placement. 02/15: Continue current treatment plan. 02/16: Continue current plan. 02/17 continue tx. 02/18 continue tx. 02/19 continue tx. 02/20 continue tx. 02/21 continue tx. 02/22: Continue current plans and regimen 02/23: Continue current plans and regimen 02/24 continue tx 02/25 continue tx. 02/26 continue tx. 02/27 continue tx. 02/28 continue tx. 03/01 continue same treatment 03/02 continue same treatment 03/03 continue tx. 03/04 continue tx. awaiting placement 03/05 continue tx. 03/06 continue tx. awaiting placement. 03/07 continue tx. 03/08: received oxycodone 5, ativan 1 mg this morning for what appears to be lower back spasm. try flexeril 5 mg one time. otherwise continue current mgmt. 03/09: no c/o back pain today. calm, cooperative. no behavioral issues. asking when she will be discharging. continue current mgmt. 03/10 continue tx. 03/11 continue tx. 03/12 continue tx. 03/13 continue tx. 03/14 continue tx. 03/15: Continue current management and treatment plan. 03/16 continue tx. 03/17- continues tx. will add lidocaine back pain. 03/18 continue tx. 03/19 continue tx. 03/20 continue same treatment 03/21 continue same treatment 03/22 continue tx. 03/23 continue tx. 03/24 continue tx. 03/25 continue tx. 03/26 continue tx. 03/27 continue tx. 03/28 continue treatment, waiting for placement 03/30/23: No changes 03/31 continue treatment 04/01 continue treatment 04/02 continue treatment 04/03 continue treatment 04/04 continue treatment 04/05 continue treatment 04/06 continue treatment 04/07 continue tx. 04/08 pt seen by hospitalist to adjust DM meds given increase in BS, added glipizide. 04/09 continue tx 04/10 continue tx. 04/11 continue tx. Time Spent With Patient Time: Total time managing care of this patient today ____ minutes.
[2023-04-13 19:50] VITALS: BP 162/70; PULSE 62; RESP 20; TEMP 36.1; O2SAT 97
[2023-04-13] MEDS: Valsartan 80 MG TABLET PO (20:53)
[2023-04-13] MEDS: Donepezil HCl 10 MG TABLET PO (20:53)
[2023-04-13] MEDS: Atorvastatin Calcium 20 MG TABLET PO (20:54)
[2023-04-13 21:05] LABS: Glucose, Whole Blood 154 mg/dL (60-115)
[2023-04-14] MEDS: traZODone HCL 50 MG TABLET PO ×2 (02:34→21:29)
[2023-04-14] MEDS: Levothyroxine Sodium 75 MCG TABLET PO (05:48)
[2023-04-14 06:00] VITALS: BP 140/68; PULSE 79; RESP 16; TEMP 36.2; O2SAT 96
[2023-04-14 06:17] LABS: Glucose, Whole Blood 144 mg/dL (60-115)
[2023-04-14] MEDS: Memantine HCl 10 MG TABLET PO ×2 (08:52→21:28)
[2023-04-14] MEDS: Acetaminophen 325 MG TABLET 650 MG PO ×3 (08:52→21:30)
[2023-04-14] MEDS: Clopidogrel Bisulfate 75 MG TABLET PO (08:52)
[2023-04-14] MEDS: Escitalopram Oxalate 10 MG TABLET PO (08:52)
[2023-04-14] MEDS: Metoprolol Tartrate 25 MG TABLET PO (08:53)
[2023-04-14] MEDS: Insulin Glargine,Hum.rec.anlog 100 UNIT/ML 10 ML VIAL 10 UNIT SUBCUT (08:53)
[2023-04-14 11:19] LABS: Glucose, Whole Blood 352 mg/dL (60-115)
[2023-04-14] MEDS: Insulin Lispro 100 UNIT/ML 3 ML VIAL SUBCUT ×2 (11:44→16:34)
[2023-04-14] MEDS: Lidocaine 4 % Patch ADH..PATCH 1 PATCH TRANSDERMA (12:32)
[2023-04-14] MEDS: Gabapentin 600 MG TABLET PO ×2 (13:20→21:29)
--- NOTE | 2023-04-14 13:27 | PC.NURSE ---
Patients POC this morning read 352, patient isn't exhibiting any signs/symptoms of hyperglycemia. 13 units of insulin given per sliding scale and REMOTE SENSING TECHNICIAN Tanya Perez notified via [place] text.
[2023-04-14 16:18] LABS: Glucose, Whole Blood 170 mg/dL (60-115)
--- NOTE | 2023-04-14 16:25 | HO.PSYCHPN ---
Subjective Subjective Date of Service: 04/14/23 Reason For Visit: Depression Subjective Notes: Conditional Voluntary Interim History: Pt up and visible on the unit. She denies any physical concerns. No SI/HI. Pt sleeping through the night. She attends all assigned groups. Takes medications as prescribed. Diagnostics Vital Signs (24Hr): Vital Signs - 24 hr 04/13/23 19:50 04/14/23 06:00 Temperature 97.0 F 97.2 F Pulse Rate 62 79 Respiratory Rate 20 16 Blood Pressure 162/70 H 140/68 H Pulse Oximetry 97 96 Oxygen Delivery Method Room Air Room Air BMI result Body Mass Index 28.5 Labs 01/07/23 17:49 01/07/23 17:49 Labs: Laboratory Results - last 48 hr 04/12/23 04/13/23 04/13/23 19:40 06:21 11:26 POC Glucose 302 H 87 323 H 04/13/23 04/14/23 04/14/23 20:44 05:36 11:12 POC Glucose 154 H 144 H 352 H* 04/14/23 16:11 POC Glucose 170 H Imaging Radiology Impressions: ITS Impressions Venous Duplex 01/30/23 16:02 IMPRESSION: No DVT demonstrated in the bilateral lower extremity. Knee X-Ray 04/13/23 16:15 IMPRESSION: Mild degenerative changes medial and patellofemoral compartment both knees. No visible acute fracture, dislocation or subluxation seen. Knee X-Ray 04/13/23 16:15 IMPRESSION: Mild degenerative changes medial and patellofemoral compartment both knees. No visible acute fracture, dislocation or subluxation seen. Medications Medications Current Medications Acetaminophen (Acetaminophen 325 Mg Tablet) 650 mg PO TID [facility] Last Admin: 04/14/23 16:07 Dose: 650 mg Artificial Tears (Artificial Tears 15 Ml Drops) 1 drop EYE-BOTH Q4H PRN PRN Reason: Dry Eyes Atorvastatin Calcium (Atorvastatin Calcium 20 Mg Tablet) 20 mg PO BEDTIME [facility] Last Admin: 04/13/23 20:54 Dose: 20 mg Bisacodyl (Bisacodyl 10 Mg Supp.Rect) 10 mg [place] DAILY PRN PRN Reason: Constipation Clopidogrel Bisulfate (Clopidogrel Bisulfate 75 Mg Tablet) 75 mg PO DAILY [facility] Last Admin: 04/14/23 08:52 Dose: 75 mg Donepezil HCl (Donepezil Hcl 10 Mg Tablet) 10 mg PO BEDTIME [facility] Last Admin: 04/13/23 20:53 Dose: 10 mg Escitalopram Oxalate (Escitalopram Oxalate 10 Mg Tablet) 10 mg PO DAILY [facility] Last Admin: 04/14/23 08:52 Dose: 10 mg Gabapentin (Gabapentin 600 Mg Tablet) 600 mg PO BEDTIME [facility] Last Admin: 04/13/23 20:53 Dose: 600 mg Gabapentin (Gabapentin 600 Mg Tablet) 600 mg PO DAILY@1300 [facility] Last Admin: 04/14/23 13:20 Dose: 600 mg Glucagon (Glucagon Hcl 1 Mg Vial) 1 mg SUBCUT Q20M PRN PRN Reason: BG <70 AND UNRESPONSIVE Glucose (Glucose Gel 15 Gm Gel..Gram.) 15 gm PO Q15M PRN PRN Reason: BG <70 AND RESPONSIVE Last Admin: 01/30/23 03:12 Dose: 15 gm Insulin Glargine (Insulin Glargine,Hum.Rec.Anlog 100 Unit/Ml 10 Ml Vial) 57 unit SUBCUT BEDTIME [facility] Last Admin: 04/13/23 20:54 Dose: 57 unit Insulin Glargine (Insulin Glargine,Hum.Rec.Anlog 100 Unit/Ml 10 Ml Vial) 10 unit SUBCUT DAILY [facility] Last Admin: 04/14/23 08:53 Dose: 10 unit Insulin Human Lispro (Insulin Lispro 100 Unit/Ml 3 Ml Vial) 0 unit SUBCUT TIDAC [facility]; Protocol Last Admin: 04/14/23 11:44 Dose: 13 unit Levothyroxine Sodium (Levothyroxine Sodium 75 Mcg Tablet) 75 mcg PO DAILY@0630 [facility] Last Admin: 04/14/23 05:48 Dose: 75 mcg Lidocaine (Lidocaine 4 % Patch Adh..Patch) 1 patch TRANSDERMA DAILY [facility]; Protocol Last Admin: 04/14/23 12:32 Dose: 1 patch Loperamide HCl (Loperamide Hcl 2 Mg Capsule) 2 mg PO Q6H PRN PRN Reason: diarrhea Last Admin: 03/19/23 17:40 Dose: 2 mg Loperamide HCl (Loperamide Hcl 2 Mg Capsule) 4 mg PO Q4H PRN PRN Reason: Diarrhea Last Admin: 04/07/23 01:14 Dose: 4 mg Magnesium Hydroxide (Milk Of Magnesia 30 Ml Oral.Susp) 30 ml PO DAILY PRN PRN Reason: Constipation Memantine (Memantine Hcl 10 Mg Tablet) 10 mg PO BID [facility] Last Admin: 04/14/23 08:52 Dose: 10 mg Metoprolol Tartrate (Metoprolol Tartrate 25 Mg Tablet) 25 mg PO DAILY [facility]; Protocol Last Admin: 04/14/23 08:53 Dose: 25 mg Pt Own Trulicity ( (Dulaglutide 0.75 Mg)) 0.75 mg SUBCUT Tu@1730 [facility] Last Admin: 04/08/23 17:22 Dose: 0.75 mg Sodium Biphosphate/Sodium Phosphate (Sodium Phosphate,[place]-Dibasic 133 Ml Enema) 133 ml SD DAILY PRN PRN Reason: Constipation Trazodone HCl (Trazodone Hcl 50 Mg Tablet) 50 mg PO BEDTIME PRN PRN Reason: Insomnia Last Admin: 04/14/23 02:34 Dose: 50 mg Valsartan (Valsartan 80 Mg Tablet) 80 mg PO BEDTIME [facility]; Protocol Last Admin: 04/13/23 20:53 Dose: 80 mg Allergies Allergies Allergy/AdvReac Type Severity Reaction Status Date / Time aspirin [ASPIRIN] Allergy Unknown UNKNOWN Verified 01/01/23 09:43 Assessment & Plan Assessment & Plan (1) Major neurocognitive disorder: Status: Acute Code(s): F03.90 - Unspecified dementia, unspecified severity, without behavioral disturbance, psychotic disturbance, mood disturbance, and anxiety (2) Mood disorder: Status: Acute Code(s): F39 - Unspecified mood [affective] disorder Plan 04/15 continue tx. Reason for continued inpatient stay Substantial Risk for: inability to function Time Spent With Patient Time: Total time managing care of this patient today ____ minutes.
--- NOTE | 2023-04-14 17:45 | PM.EVENT ---
Event Note Date of Service: 04/14/23 Event Note: Fasting glucose at goal. However patient still with hyperglycemia throughout the day. Not always compliant with diabetic diet/snacking. Has not responded favorably to oral antihyperglycemics as she like likely type 1.5. Previously discussed with pharmacy. Will decrease pm lantus to 50 units and increase am lantus to 20 units. Continue GLP1 and ssi. Continue encouraging diabetic diet. Time Spent With Patient Time: Total time managing care of this patient today ____ minutes.
[2023-04-14 18:00] VITALS: BP 146/66; PULSE 65; RESP 18; TEMP 35.8; O2SAT 95
[2023-04-14] MEDS: Atorvastatin Calcium 20 MG TABLET PO (21:28)
[2023-04-14] MEDS: Valsartan 80 MG TABLET PO (21:29)
[2023-04-14] MEDS: Donepezil HCl 10 MG TABLET PO (21:30)
[2023-04-14] MEDS: Insulin Glargine,Hum.rec.anlog 100 UNIT/ML 10 ML VIAL 50 UNIT SUBCUT (21:31)
[2023-04-14 22:04] LABS: Glucose, Whole Blood 215 mg/dL (60-115)
[2023-04-15] MEDS: Acetaminophen 325 MG TABLET 650 MG PO ×2 (05:41→20:40)
[2023-04-15] MEDS: Levothyroxine Sodium 75 MCG TABLET PO (05:42)
[2023-04-15 06:33] LABS: Glucose, Whole Blood 126 mg/dL (60-115)
[2023-04-15 08:54] LABS: COVID-19 Test Negative (Negative); IDNOW Serial# 6674DD1D
[2023-04-15] MEDS: Insulin Glargine,Hum.rec.anlog 100 UNIT/ML 10 ML VIAL 20 UNIT SUBCUT (10:25)
[2023-04-15] MEDS: Metoprolol Tartrate 25 MG TABLET PO (10:25)
[2023-04-15] MEDS: Memantine HCl 10 MG TABLET PO ×2 (10:25→20:41)
[2023-04-15] MEDS: Clopidogrel Bisulfate 75 MG TABLET PO (10:25)
[2023-04-15] MEDS: Escitalopram Oxalate 10 MG TABLET PO (10:25)
[2023-04-15] MEDS: Lidocaine 4 % Patch ADH..PATCH 1 PATCH TRANSDERMA (10:26)
--- NOTE | 2023-04-15 10:46 | P.PNPSI_ITS ---
Subjective Subjective Date of Service: 04/15/23 Reason For Visit: Depression Subjective Notes: Conditional Voluntary Interim History: Pt had difficulty sleeping through the night last night. She reports having headache this morning. She has been visible attending groups. COVID test negative. No acute concerns. Awaiting placement. Review of Systems Review of Systems Yes all other systems are reviewed and are negative Mental Status Exam Mental Status Exam Narrative: Appearance: Casual attire, good hygiene, uncomfortable in bed. Complaining of leg pain Behavior: cooperative, calm Psychomotor: no agitation noted Speech: clear, normal rate/rhythm/volume, spontaneous TP: linear Mood: good Affect: congruent, bright VH/AH: none expressed Delusions: none expressed Insight/judgment: fair x 2. Memory/cog: alert, oriented x 3. Diagnostics Vital Signs (24Hr): Vital Signs - 24 hr 04/14/23 18:00 Temperature 96.5 F L Pulse Rate 65 Respiratory Rate 18 Blood Pressure 146/66 H Pulse Oximetry 95 Oxygen Delivery Method Room Air BMI result Body Mass Index 28.5 Labs 01/07/23 17:49 01/07/23 17:49 Labs: Laboratory Results - last 48 hr 04/13/23 04/13/23 04/14/23 11:26 20:44 05:36 POC Glucose 323 H 154 H 144 H COVID-19 ([facility]) COVID-19 Clin Com 04/14/23 04/14/23 04/14/23 11:12 16:11 21:04 POC Glucose 352 H* 170 H 215 H COVID-19 ([facility]) COVID-19 Clin Com 04/15/23 04/15/23 06:04 08:00 POC Glucose 126 H COVID-19 ([facility]) Negative COVID-19 Clin Com See Note Imaging Radiology Impressions: ITS Impressions Venous Duplex 01/30/23 16:02 IMPRESSION: No DVT demonstrated in the bilateral lower extremity. Knee X-Ray 04/13/23 16:15 IMPRESSION: Mild degenerative changes medial and patellofemoral compartment both knees. No visible acute fracture, dislocation or subluxation seen. Knee X-Ray 04/13/23 16:15 IMPRESSION: Mild degenerative changes medial and patellofemoral compartment both knees. No visible acute fracture, dislocation or subluxation seen. Medications Medications Current Medications Acetaminophen (Acetaminophen 325 Mg Tablet) 650 mg PO TID [facility] Last Admin: 04/15/23 05:41 Dose: 650 mg Artificial Tears (Artificial Tears 15 Ml Drops) 1 drop EYE-BOTH Q4H PRN PRN Reason: Dry Eyes Atorvastatin Calcium (Atorvastatin Calcium 20 Mg Tablet) 20 mg PO BEDTIME [facility] Last Admin: 04/14/23 21:28 Dose: 20 mg Bisacodyl (Bisacodyl 10 Mg Supp.Rect) 10 mg [place] DAILY PRN PRN Reason: Constipation Clopidogrel Bisulfate (Clopidogrel Bisulfate 75 Mg Tablet) 75 mg PO DAILY [facility] Last Admin: 04/15/23 10:25 Dose: 75 mg Donepezil HCl (Donepezil Hcl 10 Mg Tablet) 10 mg PO BEDTIME [facility] Last Admin: 04/14/23 21:30 Dose: 10 mg Escitalopram Oxalate (Escitalopram Oxalate 10 Mg Tablet) 10 mg PO DAILY [facility] Last Admin: 04/15/23 10:25 Dose: 10 mg Gabapentin (Gabapentin 600 Mg Tablet) 600 mg PO BEDTIME [facility] Last Admin: 04/14/23 21:29 Dose: 600 mg Gabapentin (Gabapentin 600 Mg Tablet) 600 mg PO DAILY@1300 [facility] Last Admin: 04/14/23 13:20 Dose: 600 mg Glucagon (Glucagon Hcl 1 Mg Vial) 1 mg SUBCUT Q20M PRN PRN Reason: BG <70 AND UNRESPONSIVE Glucose (Glucose Gel 15 Gm Gel..Gram.) 15 gm PO Q15M PRN PRN Reason: BG <70 AND RESPONSIVE Last Admin: 01/30/23 03:12 Dose: 15 gm Insulin Glargine (Insulin Glargine,Hum.Rec.Anlog 100 Unit/Ml 10 Ml Vial) 50 unit SUBCUT BEDTIME [facility] Last Admin: 04/14/23 21:31 Dose: 50 unit Insulin Glargine (Insulin Glargine,Hum.Rec.Anlog 100 Unit/Ml 10 Ml Vial) 20 unit SUBCUT DAILY [facility] Last Admin: 04/15/23 10:25 Dose: 20 unit Insulin Human Lispro (Insulin Lispro 100 Unit/Ml 3 Ml Vial) 0 unit SUBCUT TIDAC [facility]; Protocol Last Admin: 04/15/23 10:25 Dose: Not Given Levothyroxine Sodium (Levothyroxine Sodium 75 Mcg Tablet) 75 mcg PO DAILY@0630 [facility] Last Admin: 04/15/23 05:42 Dose: 75 mcg Lidocaine (Lidocaine 4 % Patch Adh..Patch) 1 patch TRANSDERMA DAILY [facility]; Protocol Last Admin: 04/15/23 10:26 Dose: 1 patch Loperamide HCl (Loperamide Hcl 2 Mg Capsule) 2 mg PO Q6H PRN PRN Reason: diarrhea Last Admin: 03/19/23 17:40 Dose: 2 mg Loperamide HCl (Loperamide Hcl 2 Mg Capsule) 4 mg PO Q4H PRN PRN Reason: Diarrhea Last Admin: 04/07/23 01:14 Dose: 4 mg Magnesium Hydroxide (Milk Of Magnesia 30 Ml Oral.Susp) 30 ml PO DAILY PRN PRN Reason: Constipation Memantine (Memantine Hcl 10 Mg Tablet) 10 mg PO BID [facility] Last Admin: 04/15/23 10:25 Dose: 10 mg Metoprolol Tartrate (Metoprolol Tartrate 25 Mg Tablet) 25 mg PO DAILY [facility]; Protocol Last Admin: 04/15/23 10:25 Dose: 25 mg Pt Own Trulicity ( (Dulaglutide 0.75 Mg)) 0.75 mg SUBCUT Tu@1730 [facility] Last Admin: 04/08/23 17:22 Dose: 0.75 mg Sodium Biphosphate/Sodium Phosphate (Sodium Phosphate,[place]-Dibasic 133 Ml Enema) 133 ml [place] DAILY PRN PRN Reason: Constipation Trazodone HCl (Trazodone Hcl 50 Mg Tablet) 50 mg PO BEDTIME PRN PRN Reason: Insomnia Last Admin: 04/14/23 21:29 Dose: 50 mg Valsartan (Valsartan 80 Mg Tablet) 80 mg PO BEDTIME [facility]; Protocol Last Admin: 04/14/23 21:29 Dose: 80 mg Allergies Allergies Allergy/AdvReac Type Severity Reaction Status Date / Time aspirin [ASPIRIN] Allergy Unknown UNKNOWN Verified 01/01/23 09:43 Assessment & Plan Assessment & Plan (1) Major neurocognitive disorder: Status: Acute Code(s): F03.90 - Unspecified dementia, unspecified severity, without behavioral disturbance, psychotic disturbance, mood disturbance, and anxiety (2) Mood disorder: Status: Acute Code(s): F39 - Unspecified mood [affective] disorder Plan 04/15 continue tx. reports PRESTON, given one time naproxen- has to limit use of NSAID as pt on plavix. Reason for continued inpatient stay Substantial Risk for: inability to function Time Spent With Patient Time: Total time managing care of this patient today ____ minutes.
[2023-04-15] MEDS: NaPROXEN 250 MG TABLET PO (11:35)
[2023-04-15 11:39] LABS: Glucose, Whole Blood 330 mg/dL (60-115)
[2023-04-15] MEDS: Insulin Lispro 100 UNIT/ML 3 ML VIAL SUBCUT ×2 (12:31→18:00)
[2023-04-15] MEDS: Gabapentin 600 MG TABLET PO ×2 (14:30→20:39)
[2023-04-15 16:34] LABS: Glucose, Whole Blood 205 mg/dL (60-115)
[2023-04-15 20:30] VITALS: BP 151/68; PULSE 69; RESP 16; TEMP 36.4; O2SAT 99
[2023-04-15 20:34] LABS: Glucose, Whole Blood 162 mg/dL (60-115)
[2023-04-15] MEDS: Insulin Glargine,Hum.rec.anlog 100 UNIT/ML 10 ML VIAL 50 UNIT SUBCUT (20:38)
[2023-04-15] MEDS: Atorvastatin Calcium 20 MG TABLET PO (20:39)
[2023-04-15] MEDS: Donepezil HCl 10 MG TABLET PO (20:39)
[2023-04-15] MEDS: Valsartan 80 MG TABLET PO (20:40)
[2023-04-15] MEDS: traZODone HCL 50 MG TABLET PO (20:40)
[2023-04-16] MEDS: traZODone HCL 50 MG TABLET PO (00:58)
[2023-04-16] MEDS: Levothyroxine Sodium 75 MCG TABLET PO (05:17)
[2023-04-16 06:43] LABS: Glucose, Whole Blood 92 mg/dL (60-115)
--- NOTE | 2023-04-16 08:42 | HO.PSYCHPN ---
Subjective Subjective Date of Service: 04/16/23 Reason For Visit: Depression Subjective Notes: Conditional Voluntary Interim History: Pt found by RN in male patient's room sitting in his bed and kissing. Pt reports she has had a good connection with peer since he was admitted. She reports she enjoys his company. Pt reports she is aware she is awaiting placement. She reports she consented to kissing her and adamantly denies that she was forced to do so. She was informed no physical contact is allowed such as kissing or holding hands or sexual intercourse (which has not happened to our knowledge). Pt shows understanding and agrees to keep verbal interaction with peer. It does appear that pt shows understanding of her actions- kissing male peer. She also states she agreed to have such contact and also shows understanding about not entering to his room or him to her room. Medication Compliance: Yes Review of Systems Review of Systems Yes all other systems are reviewed and are negative Mental Status Exam Mental Status Exam Narrative: Appearance: Casual attire, good hygiene, uncomfortable in bed. Complaining of leg pain Behavior: cooperative, calm Psychomotor: no agitation noted Speech: clear, normal rate/rhythm/volume, spontaneous TP: linear Mood: good Affect: congruent, bright VH/AH: none expressed Delusions: none expressed Insight/judgment: fair x 2. Memory/cog: alert, oriented x 3. Diagnostics Vital Signs (24Hr): Vital Signs - 24 hr 04/15/23 20:30 Temperature 97.6 F Pulse Rate 69 Respiratory Rate 16 Blood Pressure 151/68 H Pulse Oximetry 99 Oxygen Delivery Method Room Air BMI result Body Mass Index 28.5 Labs 01/07/23 17:49 01/07/23 17:49 Labs: Laboratory Results - last 48 hr 04/14/23 04/14/23 04/14/23 11:12 16:11 21:04 POC Glucose 352 H* 170 H 215 H COVID-19 ([facility]) COVID-19 Clin Com 04/15/23 04/15/23 04/15/23 06:04 08:00 11:34 POC Glucose 126 H 330 H COVID-19 ([facility]) Negative COVID-19 Clin Com See Note 04/15/23 04/15/23 04/16/23 16:17 20:30 06:16 POC Glucose 205 H 162 H 92 COVID-19 ([facility]) COVID-19 Clin Com Imaging Radiology Impressions: ITS Impressions Venous Duplex 01/30/23 16:02 IMPRESSION: No DVT demonstrated in the bilateral lower extremity. Knee X-Ray 04/13/23 16:15 IMPRESSION: Mild degenerative changes medial and patellofemoral compartment both knees. No visible acute fracture, dislocation or subluxation seen. Knee X-Ray 04/13/23 16:15 IMPRESSION: Mild degenerative changes medial and patellofemoral compartment both knees. No visible acute fracture, dislocation or subluxation seen. Medications Medications Current Medications Acetaminophen (Acetaminophen 325 Mg Tablet) 650 mg PO TID [facility] Last Admin: 04/15/23 20:40 Dose: 650 mg Artificial Tears (Artificial Tears 15 Ml Drops) 1 drop EYE-BOTH Q4H PRN PRN Reason: Dry Eyes Atorvastatin Calcium (Atorvastatin Calcium 20 Mg Tablet) 20 mg PO BEDTIME [facility] Last Admin: 04/15/23 20:39 Dose: 20 mg Bisacodyl (Bisacodyl 10 Mg Supp.Rect) 10 mg [place] DAILY PRN PRN Reason: Constipation Clopidogrel Bisulfate (Clopidogrel Bisulfate 75 Mg Tablet) 75 mg PO DAILY [facility] Last Admin: 04/15/23 10:25 Dose: 75 mg Donepezil HCl (Donepezil Hcl 10 Mg Tablet) 10 mg PO BEDTIME [facility] Last Admin: 04/15/23 20:39 Dose: 10 mg Escitalopram Oxalate (Escitalopram Oxalate 10 Mg Tablet) 10 mg PO DAILY [facility] Last Admin: 04/15/23 10:25 Dose: 10 mg Gabapentin (Gabapentin 600 Mg Tablet) 600 mg PO BEDTIME [facility] Last Admin: 04/15/23 20:39 Dose: 600 mg Gabapentin (Gabapentin 600 Mg Tablet) 600 mg PO DAILY@1300 [facility] Last Admin: 04/15/23 14:30 Dose: 600 mg Glucagon (Glucagon Hcl 1 Mg Vial) 1 mg SUBCUT Q20M PRN PRN Reason: BG <70 AND UNRESPONSIVE Glucose (Glucose Gel 15 Gm Gel..Gram.) 15 gm PO Q15M PRN PRN Reason: BG <70 AND RESPONSIVE Last Admin: 01/30/23 03:12 Dose: 15 gm Insulin Glargine (Insulin Glargine,Hum.Rec.Anlog 100 Unit/Ml 10 Ml Vial) 50 unit SUBCUT BEDTIME [facility] Last Admin: 04/15/23 20:38 Dose: 50 unit Insulin Glargine (Insulin Glargine,Hum.Rec.Anlog 100 Unit/Ml 10 Ml Vial) 20 unit SUBCUT DAILY [facility] Last Admin: 04/15/23 10:25 Dose: 20 unit Insulin Human Lispro (Insulin Lispro 100 Unit/Ml 3 Ml Vial) 0 unit SUBCUT TIDAC [facility]; Protocol Last Admin: 04/15/23 18:00 Dose: 7 unit Levothyroxine Sodium (Levothyroxine Sodium 75 Mcg Tablet) 75 mcg PO DAILY@0630 [facility] Last Admin: 04/16/23 05:17 Dose: 75 mcg Lidocaine (Lidocaine 4 % Patch Adh..Patch) 1 patch TRANSDERMA DAILY [facility]; Protocol Last Admin: 04/15/23 10:26 Dose: 1 patch Loperamide HCl (Loperamide Hcl 2 Mg Capsule) 2 mg PO Q6H PRN PRN Reason: diarrhea Last Admin: 03/19/23 17:40 Dose: 2 mg Loperamide HCl (Loperamide Hcl 2 Mg Capsule) 4 mg PO Q4H PRN PRN Reason: Diarrhea Last Admin: 04/07/23 01:14 Dose: 4 mg Magnesium Hydroxide (Milk Of Magnesia 30 Ml Oral.Susp) 30 ml PO DAILY PRN PRN Reason: Constipation Memantine (Memantine Hcl 10 Mg Tablet) 10 mg PO BID [facility] Last Admin: 04/15/23 20:41 Dose: 10 mg Metoprolol Tartrate (Metoprolol Tartrate 25 Mg Tablet) 25 mg PO DAILY [facility]; Protocol Last Admin: 04/15/23 10:25 Dose: 25 mg Pt Own Trulicity ( (Dulaglutide 0.75 Mg)) 0.75 mg SUBCUT Tu@1730 [facility] Last Admin: 04/15/23 20:38 Dose: 0.75 mg Sodium Biphosphate/Sodium Phosphate (Sodium Phosphate,[place]-Dibasic 133 Ml Enema) 133 ml [place] DAILY PRN PRN Reason: Constipation Trazodone HCl (Trazodone Hcl 50 Mg Tablet) 50 mg PO BEDTIME PRN PRN Reason: Insomnia Last Admin: 04/16/23 00:58 Dose: 50 mg Valsartan (Valsartan 80 Mg Tablet) 80 mg PO BEDTIME [facility]; Protocol Last Admin: 04/15/23 20:40 Dose: 80 mg Allergies Allergies Allergy/AdvReac Type Severity Reaction Status Date / Time aspirin [ASPIRIN] Allergy Unknown UNKNOWN Verified 01/01/23 09:43 Assessment & Plan Assessment & Plan (1) Major neurocognitive disorder: Status: Acute Code(s): F03.90 - Unspecified dementia, unspecified severity, without behavioral disturbance, psychotic disturbance, mood disturbance, and anxiety (2) Mood disorder: Status: Acute Code(s): F39 - Unspecified mood [affective] disorder Plan 04/15 continue tx. reports PRESTON, given one time naproxen- has to limit use of NSAID as pt on plavix. 04/16 continue tx. Reason for continued inpatient stay Substantial Risk for: inability to function Time Spent With Patient Time: Total time managing care of this patient today ____ minutes.
[2023-04-16 09:23] VITALS: BP 101/56; PULSE 86; RESP 15; TEMP 36.7; O2SAT 96
[2023-04-16] MEDS: Insulin Glargine,Hum.rec.anlog 100 UNIT/ML 10 ML VIAL 20 UNIT SUBCUT (09:25)
[2023-04-16] MEDS: Memantine HCl 10 MG TABLET PO ×2 (09:25→20:53)
[2023-04-16] MEDS: Clopidogrel Bisulfate 75 MG TABLET PO (09:25)
[2023-04-16] MEDS: Acetaminophen 325 MG TABLET 650 MG PO ×3 (09:25→20:53)
[2023-04-16] MEDS: Escitalopram Oxalate 10 MG TABLET PO (09:26)
[2023-04-16] MEDS: Metoprolol Tartrate 25 MG TABLET PO (09:26)
[2023-04-16 11:30] LABS: Glucose, Whole Blood 320 mg/dL (60-115)
[2023-04-16] MEDS: Insulin Lispro 100 UNIT/ML 3 ML VIAL SUBCUT ×2 (11:52→16:56)
[2023-04-16] MEDS: Gabapentin 600 MG TABLET PO ×2 (13:06→20:53)
--- NOTE | 2023-04-16 14:14 | PC.NURSE ---
This patient was found in her peers bed, sitting on the side of it. The two patients were seen kissing. When this patient stood up, her pants here unzipped however, patient always has her button undone. She denies that her peer put his hand down her pants. This patient was spoken to by this staff and an interprete about it not being appropriate behavior for a hospital. The patient denied having any concerns about this incident. She also denied any questions.
[2023-04-16 16:26] LABS: Glucose, Whole Blood 190 mg/dL (60-115)
[2023-04-16 18:00] VITALS: BP 126/68; PULSE 74; RESP 17; TEMP 36.6; O2SAT 96
[2023-04-16 20:03] LABS: Glucose, Whole Blood 265 mg/dL (60-115)
[2023-04-16] MEDS: Donepezil HCl 10 MG TABLET PO (20:53)
[2023-04-16] MEDS: Atorvastatin Calcium 20 MG TABLET PO (20:53)
[2023-04-16] MEDS: Valsartan 80 MG TABLET PO (20:53)
[2023-04-16] MEDS: Insulin Glargine,Hum.rec.anlog 100 UNIT/ML 10 ML VIAL 50 UNIT SUBCUT (20:54)
[2023-04-16 23:46] LABS: COVID-19 Test Negative (Negative); IDNOW Serial# 08D9AD1C
[2023-04-17] MEDS: Levothyroxine Sodium 75 MCG TABLET PO (05:41)
[2023-04-17 06:47] LABS: Glucose, Whole Blood 175 mg/dL (60-115)
[2023-04-17 07:00] VITALS: BMI 28.2
[2023-04-17 08:00] VITALS: BP 121/57; PULSE 88; RESP 18; TEMP 37.1; O2SAT 98
[2023-04-17] MEDS: Memantine HCl 10 MG TABLET PO ×2 (08:37→20:38)
[2023-04-17] MEDS: Acetaminophen 325 MG TABLET 650 MG PO ×3 (08:37→20:38)
[2023-04-17] MEDS: Insulin Glargine,Hum.rec.anlog 100 UNIT/ML 10 ML VIAL 20 UNIT SUBCUT (08:37)
[2023-04-17] MEDS: Lidocaine 4 % Patch ADH..PATCH 1 PATCH TRANSDERMA (08:38)
[2023-04-17] MEDS: Clopidogrel Bisulfate 75 MG TABLET PO (08:38)
[2023-04-17] MEDS: Escitalopram Oxalate 10 MG TABLET PO (08:38)
[2023-04-17] MEDS: Metoprolol Tartrate 25 MG TABLET PO (08:38)
[2023-04-17] MEDS: Insulin Lispro 100 UNIT/ML 3 ML VIAL SUBCUT ×3 (08:46→16:39)
[2023-04-17 11:10] LABS: Glucose, Whole Blood 287 mg/dL (60-115)
[2023-04-17] MEDS: Gabapentin 600 MG TABLET PO ×2 (12:56→20:38)
[2023-04-17 16:34] LABS: Glucose, Whole Blood 179 mg/dL (60-115)
--- NOTE | 2023-04-17 17:02 | HO.PSYCHPN ---
Subjective Subjective Date of Service: 04/17/23 Reason For Visit: Depression Subjective Notes: Conditional Voluntary Interim History: Pt slept through the night. cog tia. Ambulating with walker and denies any physical concerns. No VH/AH. Takes meds as prescribed. awaiting placement. Review of Systems Review of Systems Yes all other systems are reviewed and are negative Mental Status Exam Mental Status Exam Narrative: Appearance: Casual attire, good hygiene, uncomfortable in bed. Complaining of leg pain Behavior: cooperative, calm Psychomotor: no agitation noted Speech: clear, normal rate/rhythm/volume, spontaneous TP: linear Mood: good Affect: congruent, bright VH/AH: none expressed Delusions: none expressed Insight/judgment: fair x 2. Memory/cog: alert, oriented x 3. Diagnostics Vital Signs (24Hr): Vital Signs - 24 hr 04/16/23 18:00 04/17/23 08:00 Temperature 97.9 F 98.8 F Pulse Rate 74 88 Respiratory Rate 17 18 Blood Pressure 126/68 121/57 L Pulse Oximetry 96 98 Oxygen Delivery Method Room Air Room Air BMI result Body Mass Index 28.2 Labs 01/07/23 17:49 01/07/23 17:49 Labs: Laboratory Results - last 48 hr 04/15/23 04/16/23 04/16/23 20:30 06:16 11:27 POC Glucose 162 H 92 320 H COVID-19 ([facility]) COVID-19 Clin Com 04/16/23 04/16/23 04/16/23 16:22 19:44 20:53 POC Glucose 190 H 265 H COVID-19 ([facility]) Negative COVID-19 Clin Com See Note 04/17/23 04/17/23 04/17/23 06:10 11:06 16:27 POC Glucose 175 H 287 H 179 H COVID-19 ([facility]) COVID-19 Clin Com Imaging Radiology Impressions: ITS Impressions Venous Duplex 01/30/23 16:02 IMPRESSION: No DVT demonstrated in the bilateral lower extremity. Knee X-Ray 04/13/23 16:15 IMPRESSION: Mild degenerative changes medial and patellofemoral compartment both knees. No visible acute fracture, dislocation or subluxation seen. Knee X-Ray 04/13/23 16:15 IMPRESSION: Mild degenerative changes medial and patellofemoral compartment both knees. No visible acute fracture, dislocation or subluxation seen. Medications Medications Current Medications Acetaminophen (Acetaminophen 325 Mg Tablet) 650 mg PO TID [facility] Last Admin: 04/17/23 15:29 Dose: 650 mg Artificial Tears (Artificial Tears 15 Ml Drops) 1 drop EYE-BOTH Q4H PRN PRN Reason: Dry Eyes Atorvastatin Calcium (Atorvastatin Calcium 20 Mg Tablet) 20 mg PO BEDTIME [facility] Last Admin: 04/16/23 20:53 Dose: 20 mg Bisacodyl (Bisacodyl 10 Mg Supp.Rect) 10 mg [place] DAILY PRN PRN Reason: Constipation Clopidogrel Bisulfate (Clopidogrel Bisulfate 75 Mg Tablet) 75 mg PO DAILY [facility] Last Admin: 04/17/23 08:38 Dose: 75 mg Donepezil HCl (Donepezil Hcl 10 Mg Tablet) 10 mg PO BEDTIME [facility] Last Admin: 04/16/23 20:53 Dose: 10 mg Escitalopram Oxalate (Escitalopram Oxalate 10 Mg Tablet) 10 mg PO DAILY [facility] Last Admin: 04/17/23 08:38 Dose: 10 mg Gabapentin (Gabapentin 600 Mg Tablet) 600 mg PO BEDTIME [facility] Last Admin: 04/16/23 20:53 Dose: 600 mg Gabapentin (Gabapentin 600 Mg Tablet) 600 mg PO DAILY@1300 [facility] Last Admin: 04/17/23 12:56 Dose: 600 mg Glucagon (Glucagon Hcl 1 Mg Vial) 1 mg SUBCUT Q20M PRN PRN Reason: BG <70 AND UNRESPONSIVE Glucose (Glucose Gel 15 Gm Gel..Gram.) 15 gm PO Q15M PRN PRN Reason: BG <70 AND RESPONSIVE Last Admin: 01/30/23 03:12 Dose: 15 gm Insulin Glargine (Insulin Glargine,Hum.Rec.Anlog 100 Unit/Ml 10 Ml Vial) 50 unit SUBCUT BEDTIME [facility] Last Admin: 04/16/23 20:54 Dose: 50 unit Insulin Glargine (Insulin Glargine,Hum.Rec.Anlog 100 Unit/Ml 10 Ml Vial) 20 unit SUBCUT DAILY [facility] Last Admin: 04/17/23 08:37 Dose: 20 unit Insulin Human Lispro (Insulin Lispro 100 Unit/Ml 3 Ml Vial) 0 unit SUBCUT TIDAC [facility]; Protocol Last Admin: 04/17/23 16:39 Dose: 5 unit Levothyroxine Sodium (Levothyroxine Sodium 75 Mcg Tablet) 75 mcg PO DAILY@0630 [facility] Last Admin: 04/17/23 05:41 Dose: 75 mcg Lidocaine (Lidocaine 4 % Patch Adh..Patch) 1 patch TRANSDERMA DAILY [facility]; Protocol Last Admin: 04/17/23 08:38 Dose: 1 patch Loperamide HCl (Loperamide Hcl 2 Mg Capsule) 2 mg PO Q6H PRN PRN Reason: diarrhea Last Admin: 03/19/23 17:40 Dose: 2 mg Loperamide HCl (Loperamide Hcl 2 Mg Capsule) 4 mg PO Q4H PRN PRN Reason: Diarrhea Last Admin: 04/07/23 01:14 Dose: 4 mg Magnesium Hydroxide (Milk Of Magnesia 30 Ml Oral.Susp) 30 ml PO DAILY PRN PRN Reason: Constipation Memantine (Memantine Hcl 10 Mg Tablet) 10 mg PO BID [facility] Last Admin: 04/17/23 08:37 Dose: 10 mg Metoprolol Tartrate (Metoprolol Tartrate 25 Mg Tablet) 25 mg PO DAILY [facility]; Protocol Last Admin: 04/17/23 08:38 Dose: 25 mg Pt Own Trulicity ( (Dulaglutide 0.75 Mg)) 0.75 mg SUBCUT Tu@7727 [facility] Last Admin: 04/15/23 20:38 Dose: 0.75 mg Sodium Biphosphate/Sodium Phosphate (Sodium Phosphate,[place]-Dibasic 133 Ml Enema) 133 ml [place] DAILY PRN PRN Reason: Constipation Trazodone HCl (Trazodone Hcl 50 Mg Tablet) 50 mg PO BEDTIME PRN PRN Reason: Insomnia Last Admin: 04/16/23 00:58 Dose: 50 mg Valsartan (Valsartan 80 Mg Tablet) 80 mg PO BEDTIME [facility]; Protocol Last Admin: 04/16/23 20:53 Dose: 80 mg Allergies Allergies Allergy/AdvReac Type Severity Reaction Status Date / Time aspirin [ASPIRIN] Allergy Unknown UNKNOWN Verified 01/01/23 09:43 Assessment & Plan Assessment & Plan (1) Major neurocognitive disorder: Status: Acute Code(s): F03.90 - Unspecified dementia, unspecified severity, without behavioral disturbance, psychotic disturbance, mood disturbance, and anxiety (2) Mood disorder: Status: Acute Code(s): F39 - Unspecified mood [affective] disorder Plan 04/15 continue tx. reports PRE[facility]ON, given one time naproxen- has to limit use of NSAID as pt on plavix. 04/16 continue tx. 04/17 continue tx. Reason for continued inpatient stay Substantial Risk for: inability to function Time Spent With Patient Time: Total time managing care of this patient today ____ minutes.
[2023-04-17 20:21] LABS: Glucose, Whole Blood 152 mg/dL (60-115)
[2023-04-17 20:35] VITALS: BP 113/65; PULSE 75; RESP 18; TEMP 36.1; O2SAT 96
[2023-04-17] MEDS: Insulin Glargine,Hum.rec.anlog 100 UNIT/ML 10 ML VIAL 50 UNIT SUBCUT (20:37)
[2023-04-17] MEDS: Donepezil HCl 10 MG TABLET PO (20:38)
[2023-04-17] MEDS: Atorvastatin Calcium 20 MG TABLET PO (20:38)
[2023-04-17] MEDS: Valsartan 80 MG TABLET PO (20:38)
[2023-04-18] MEDS: Levothyroxine Sodium 75 MCG TABLET PO (05:20)
[2023-04-18 06:38] LABS: Glucose, Whole Blood 152 mg/dL (60-115)
[2023-04-18 08:08] VITALS: BP 140/88; PULSE 93; RESP 16; TEMP 36.3; O2SAT 96
[2023-04-18] MEDS: Acetaminophen 325 MG TABLET 650 MG PO ×3 (09:08→21:02)
[2023-04-18] MEDS: Escitalopram Oxalate 10 MG TABLET PO (09:09)
[2023-04-18] MEDS: Lidocaine 4 % Patch ADH..PATCH 1 PATCH TRANSDERMA (09:09)
[2023-04-18] MEDS: Metoprolol Tartrate 25 MG TABLET PO (09:09)
[2023-04-18] MEDS: Memantine HCl 10 MG TABLET PO ×2 (09:09→21:03)
[2023-04-18] MEDS: Insulin Glargine,Hum.rec.anlog 100 UNIT/ML 10 ML VIAL 20 UNIT SUBCUT (09:10)
[2023-04-18] MEDS: Insulin Lispro 100 UNIT/ML 3 ML VIAL SUBCUT ×3 (09:10→16:35)
[2023-04-18] MEDS: Clopidogrel Bisulfate 75 MG TABLET PO (09:10)
[2023-04-18 11:28] LABS: IDNOW Serial# BCCEAD1C
[2023-04-18 11:29] LABS: COVID-19 Test Negative (Negative)
[2023-04-18 11:32] LABS: Glucose, Whole Blood 275 mg/dL (60-115)
[2023-04-18] MEDS: Gabapentin 600 MG TABLET PO ×2 (12:05→21:03)
[2023-04-18 16:28] LABS: Glucose, Whole Blood 185 mg/dL (60-115)
[2023-04-18 18:00] VITALS: BP 132/66; PULSE 82; RESP 18; TEMP 36.3; O2SAT 98
[2023-04-18] MEDS: Valsartan 80 MG TABLET PO (21:03)
[2023-04-18] MEDS: Donepezil HCl 10 MG TABLET PO (21:03)
[2023-04-18] MEDS: Atorvastatin Calcium 20 MG TABLET PO (21:03)
[2023-04-18] MEDS: Insulin Glargine,Hum.rec.anlog 100 UNIT/ML 10 ML VIAL 50 UNIT SUBCUT (21:16)
[2023-04-18 21:30] LABS: Glucose, Whole Blood 255 mg/dL (60-115)
--- NOTE | 2023-04-18 23:19 | P.PNPSI_ITS ---
Subjective Subjective Date of Service: 04/18/23 Reason For Visit: Depression Interim History: Pt slept through the night. cog tia. Ambulating with walker and denies any physical concerns. No VH/AH. Takes meds as prescribed. awaiting placement. Review of Systems Review of Systems Yes all other systems are reviewed and are negative Mental Status Exam Mental Status Exam Narrative: Appearance: Casual attire, good hygiene, uncomfortable in bed. Complaining of leg pain Behavior: cooperative, calm Psychomotor: no agitation noted Speech: clear, normal rate/rhythm/volume, spontaneous TP: linear Mood: good Affect: congruent, bright VH/AH: none expressed Delusions: none expressed Insight/judgment: fair x 2. Memory/cog: alert, oriented x 3. Diagnostics Vital Signs (24Hr): Vital Signs - 24 hr 04/18/23 08:08 04/18/23 18:00 Temperature 97.4 F 97.3 F Pulse Rate 93 82 Respiratory Rate 16 18 Blood Pressure 140/88 H 132/66 Pulse Oximetry 96 98 Oxygen Delivery Method Room Air Room Air BMI result Body Mass Index 28.2 Labs 01/07/23 17:49 01/07/23 17:49 Labs: Laboratory Results - last 48 hr 04/16/23 04/17/23 04/17/23 20:53 06:10 11:06 POC Glucose 175 H 287 H COVID-19 ([facility]) Negative COVID-19 Clin Com See Note 04/17/23 04/17/23 04/18/23 16:27 19:53 06:26 POC Glucose 179 H 152 H 152 H COVID-19 ([facility]) COVID-19 Clin Com 04/18/23 04/18/23 04/18/23 10:53 11:22 16:16 POC Glucose 275 H 185 H COVID-19 ([facility]) Negative COVID-19 Clin Com See Note 04/18/23 21:00 POC Glucose 255 H COVID-19 ([facility]) COVID-19 Clin Com Imaging Radiology Impressions: ITS Impressions Venous Duplex 01/30/23 16:02 IMPRESSION: No DVT demonstrated in the bilateral lower extremity. Knee X-Ray 04/13/23 16:15 IMPRESSION: Mild degenerative changes medial and patellofemoral compartment both knees. No visible acute fracture, dislocation or subluxation seen. Knee X-Ray 04/13/23 16:15 IMPRESSION: Mild degenerative changes medial and patellofemoral compartment both knees. No visible acute fracture, dislocation or subluxation seen. Medications Medications Current Medications Acetaminophen (Acetaminophen 325 Mg Tablet) 650 mg PO TID [facility] Last Admin: 04/18/23 21:02 Dose: 650 mg Artificial Tears (Artificial Tears 15 Ml Drops) 1 drop EYE-BOTH Q4H PRN PRN Reason: Dry Eyes Atorvastatin Calcium (Atorvastatin Calcium 20 Mg Tablet) 20 mg PO BEDTIME [facility] Last Admin: 04/18/23 21:03 Dose: 20 mg Bisacodyl (Bisacodyl 10 Mg Supp.Rect) 10 mg [place] DAILY PRN PRN Reason: Constipation Clopidogrel Bisulfate (Clopidogrel Bisulfate 75 Mg Tablet) 75 mg PO DAILY [facility] Last Admin: 04/18/23 09:10 Dose: 75 mg Donepezil HCl (Donepezil Hcl 10 Mg Tablet) 10 mg PO BEDTIME [facility] Last Admin: 04/18/23 21:03 Dose: 10 mg Escitalopram Oxalate (Escitalopram Oxalate 10 Mg Tablet) 10 mg PO DAILY [facility] Last Admin: 04/18/23 09:09 Dose: 10 mg Gabapentin (Gabapentin 600 Mg Tablet) 600 mg PO BEDTIME [facility] Last Admin: 04/18/23 21:03 Dose: 600 mg Gabapentin (Gabapentin 600 Mg Tablet) 600 mg PO DAILY@1300 [facility] Last Admin: 04/18/23 12:05 Dose: 600 mg Glucagon (Glucagon Hcl 1 Mg Vial) 1 mg SUBCUT Q20M PRN PRN Reason: BG <70 AND UNRESPONSIVE Glucose (Glucose Gel 15 Gm Gel..Gram.) 15 gm PO Q15M PRN PRN Reason: BG <70 AND RESPONSIVE Last Admin: 01/30/23 03:12 Dose: 15 gm Insulin Glargine (Insulin Glargine,Hum.Rec.Anlog 100 Unit/Ml 10 Ml Vial) 50 unit SUBCUT BEDTIME [facility] Last Admin: 04/18/23 21:16 Dose: 50 unit Insulin Glargine (Insulin Glargine,Hum.Rec.Anlog 100 Unit/Ml 10 Ml Vial) 20 unit SUBCUT DAILY [facility] Last Admin: 04/18/23 09:10 Dose: 20 unit Insulin Human Lispro (Insulin Lispro 100 Unit/Ml 3 Ml Vial) 0 unit SUBCUT TIDAC [facility]; Protocol Last Admin: 04/18/23 16:35 Dose: 5 unit Levothyroxine Sodium (Levothyroxine Sodium 75 Mcg Tablet) 75 mcg PO DAILY@0630 [facility] Last Admin: 04/18/23 05:20 Dose: 75 mcg Lidocaine (Lidocaine 4 % Patch Adh..Patch) 1 patch TRANSDERMA DAILY [facility]; Protocol Last Admin: 04/18/23 09:09 Dose: 1 patch Loperamide HCl (Loperamide Hcl 2 Mg Capsule) 2 mg PO Q6H PRN PRN Reason: diarrhea Last Admin: 03/19/23 17:40 Dose: 2 mg Loperamide HCl (Loperamide Hcl 2 Mg Capsule) 4 mg PO Q4H PRN PRN Reason: Diarrhea Last Admin: 04/07/23 01:14 Dose: 4 mg Magnesium Hydroxide (Milk Of Magnesia 30 Ml Oral.Susp) 30 ml PO DAILY PRN PRN Reason: Constipation Memantine (Memantine Hcl 10 Mg Tablet) 10 mg PO BID [facility] Last Admin: 04/18/23 21:03 Dose: 10 mg Metoprolol Tartrate (Metoprolol Tartrate 25 Mg Tablet) 25 mg PO DAILY [facility]; Protocol Last Admin: 04/18/23 09:09 Dose: 25 mg Pt Own Trulicity ( (Dulaglutide 0.75 Mg)) 0.75 mg SUBCUT Tu@1730 [facility] Last Admin: 04/15/23 20:38 Dose: 0.75 mg Sodium Biphosphate/Sodium Phosphate (Sodium Phosphate,[place]-Dibasic 133 Ml Enema) 133 ml [place] DAILY PRN PRN Reason: Constipation Trazodone HCl (Trazodone Hcl 50 Mg Tablet) 50 mg PO BEDTIME PRN PRN Reason: Insomnia Last Admin: 04/16/23 00:58 Dose: 50 mg Valsartan (Valsartan 80 Mg Tablet) 80 mg PO BEDTIME [facility]; Protocol Last Admin: 04/18/23 21:03 Dose: 80 mg Allergies Allergies Allergy/AdvReac Type Severity Reaction Status Date / Time aspirin [ASPIRIN] Allergy Unknown UNKNOWN Verified 01/01/23 09:43 Assessment & Plan Assessment & Plan (1) Major neurocognitive disorder: Status: Acute Code(s): F03.90 - Unspecified dementia, unspecified severity, without behavioral disturbance, psychotic disturbance, mood disturbance, and anxiety (2) Mood disorder: Status: Acute Code(s): F39 - Unspecified mood [affective] disorder Plan 04/15 continue tx. reports PRE[facility], given one time naproxen- has to limit use of NSAID as pt on plavix. 04/16 continue tx. 04/17 continue tx 04/18 continue tx. Reason for continued inpatient stay Substantial Risk for: inability to function Time Spent With Patient Time: Total time managing care of this patient today ____ minutes.
[2023-04-19] MEDS: Levothyroxine Sodium 75 MCG TABLET PO (06:11)
[2023-04-19 06:28] LABS: Glucose, Whole Blood 103 mg/dL (60-115)
[2023-04-19 09:29] VITALS: BP 153/68; PULSE 85; RESP 15; TEMP 36.7; O2SAT 97
[2023-04-19] MEDS: Insulin Glargine,Hum.rec.anlog 100 UNIT/ML 10 ML VIAL 20 UNIT SUBCUT (09:30)
[2023-04-19] MEDS: Lidocaine 4 % Patch ADH..PATCH 1 PATCH TRANSDERMA (09:30)
[2023-04-19] MEDS: Escitalopram Oxalate 10 MG TABLET PO (09:34)
[2023-04-19] MEDS: Clopidogrel Bisulfate 75 MG TABLET PO (09:35)
[2023-04-19] MEDS: Memantine HCl 10 MG TABLET PO ×2 (09:35→20:38)
[2023-04-19] MEDS: Acetaminophen 325 MG TABLET 650 MG PO ×3 (09:35→20:37)
[2023-04-19] MEDS: Metoprolol Tartrate 25 MG TABLET PO (09:36)
--- NOTE | 2023-04-19 10:31 | P.PNPSI_ITS ---
Subjective Subjective Date of Service: 04/19/23 Reason For Visit: Depression Interim History: calm, cooperative. no complaints or requests. per staff, no change in presentation. Mental Status Exam Mental Status Exam Narrative: Appearance: Casual attire, good hygiene, uncomfortable in bed. Complaining of leg pain Behavior: cooperative, calm Psychomotor: no agitation noted Speech: clear, normal rate/rhythm/volume, spontaneous TP: linear Mood: good Affect: congruent, bright VH/AH: none expressed Delusions: none expressed Insight/judgment: fair x 2. Memory/cog: alert, oriented x 3. Diagnostics Vital Signs (24Hr): Vital Signs - 24 hr 04/18/23 18:00 04/19/23 09:29 Temperature 97.3 F 98.1 F Pulse Rate 82 85 Respiratory Rate 18 15 Blood Pressure 132/66 153/68 H Pulse Oximetry 98 97 Oxygen Delivery Method Room Air Room Air BMI result Body Mass Index 28.2 Labs 01/07/23 17:49 01/07/23 17:49 Labs: Laboratory Results - last 48 hr 04/17/23 04/17/23 04/17/23 11:06 16:27 19:53 POC Glucose 287 H 179 H 152 H COVID-19 ([facility]) COVID-19 Clin Com 04/18/23 04/18/23 04/18/23 06:26 10:53 11:22 POC Glucose 152 H 275 H COVID-19 ([facility]) Negative COVID-19 Clin Com See Note 04/18/23 04/18/23 04/19/23 16:16 21:00 06:07 POC Glucose 185 H 255 H 103 COVID-19 ([facility]) COVID-19 Clin Com Imaging Radiology Impressions: ITS Impressions Venous Duplex 01/30/23 16:02 IMPRESSION: No DVT demonstrated in the bilateral lower extremity. Knee X-Ray 04/13/23 16:15 IMPRESSION: Mild degenerative changes medial and patellofemoral compartment both knees. No visible acute fracture, dislocation or subluxation seen. Knee X-Ray 04/13/23 16:15 IMPRESSION: Mild degenerative changes medial and patellofemoral compartment both knees. No visible acute fracture, dislocation or subluxation seen. Medications Medications Current Medications Acetaminophen (Acetaminophen 325 Mg Tablet) 650 mg PO TID [facility]E Last Admin: 04/19/23 09:35 Dose: 650 mg Artificial Tears (Artificial Tears 15 Ml Drops) 1 drop EYE-BOTH Q4H PRN PRN Reason: Dry Eyes Atorvastatin Calcium (Atorvastatin Calcium 20 Mg Tablet) 20 mg PO BEDTIME [facility] Last Admin: 04/18/23 21:03 Dose: 20 mg Bisacodyl (Bisacodyl 10 Mg Supp.Rect) 10 mg [place] DAILY PRN PRN Reason: Constipation Clopidogrel Bisulfate (Clopidogrel Bisulfate 75 Mg Tablet) 75 mg PO DAILY [facility] Last Admin: 04/19/23 09:35 Dose: 75 mg Donepezil HCl (Donepezil Hcl 10 Mg Tablet) 10 mg PO BEDTIME [facility] Last Admin: 04/18/23 21:03 Dose: 10 mg Escitalopram Oxalate (Escitalopram Oxalate 10 Mg Tablet) 10 mg PO DAILY [facility] Last Admin: 04/19/23 09:34 Dose: 10 mg Gabapentin (Gabapentin 600 Mg Tablet) 600 mg PO BEDTIME [facility] Last Admin: 04/18/23 21:03 Dose: 600 mg Gabapentin (Gabapentin 600 Mg Tablet) 600 mg PO DAILY@1300 [facility] Last Admin: 04/18/23 12:05 Dose: 600 mg Glucagon (Glucagon Hcl 1 Mg Vial) 1 mg SUBCUT Q20M PRN PRN Reason: BG <70 AND UNRESPONSIVE Glucose (Glucose Gel 15 Gm Gel..Gram.) 15 gm PO Q15M PRN PRN Reason: BG <70 AND RESPONSIVE Last Admin: 01/30/23 03:12 Dose: 15 gm Insulin Glargine (Insulin Glargine,Hum.Rec.Anlog 100 Unit/Ml 10 Ml Vial) 50 unit SUBCUT BEDTIME [facility] Last Admin: 04/18/23 21:16 Dose: 50 unit Insulin Glargine (Insulin Glargine,Hum.Rec.Anlog 100 Unit/Ml 10 Ml Vial) 20 unit SUBCUT DAILY [facility] Last Admin: 04/19/23 09:30 Dose: 20 unit Insulin Human Lispro (Insulin Lispro 100 Unit/Ml 3 Ml Vial) 0 unit SUBCUT TIDAC [facility]; Protocol Last Admin: 04/19/23 06:40 Dose: Not Given Levothyroxine Sodium (Levothyroxine Sodium 75 Mcg Tablet) 75 mcg PO DAILY@0630 [facility] Last Admin: 04/19/23 06:11 Dose: 75 mcg Lidocaine (Lidocaine 4 % Patch Adh..Patch) 1 patch TRANSDERMA DAILY [facility]; Protocol Last Admin: 04/19/23 09:30 Dose: 1 patch Loperamide HCl (Loperamide Hcl 2 Mg Capsule) 2 mg PO Q6H PRN PRN Reason: diarrhea Last Admin: 03/19/23 17:40 Dose: 2 mg Loperamide HCl (Loperamide Hcl 2 Mg Capsule) 4 mg PO Q4H PRN PRN Reason: Diarrhea Last Admin: 04/07/23 01:14 Dose: 4 mg Magnesium Hydroxide (Milk Of Magnesia 30 Ml Oral.Susp) 30 ml PO DAILY PRN PRN Reason: Constipation Memantine (Memantine Hcl 10 Mg Tablet) 10 mg PO BID [facility] Last Admin: 04/19/23 09:35 Dose: 10 mg Metoprolol Tartrate (Metoprolol Tartrate 25 Mg Tablet) 25 mg PO DAILY [facility]; Protocol Last Admin: 04/19/23 09:36 Dose: 25 mg Pt Own Trulicity ( (Dulaglutide 0.75 Mg)) 0.75 mg SUBCUT Tu@1730 [facility] Last Admin: 04/15/23 20:38 Dose: 0.75 mg Sodium Biphosphate/Sodium Phosphate (Sodium Phosphate,[place]-Dibasic 133 Ml Enema) 133 ml NE DAILY PRN PRN Reason: Constipation Trazodone HCl (Trazodone Hcl 50 Mg Tablet) 50 mg PO BEDTIME PRN PRN Reason: Insomnia Last Admin: 04/16/23 00:58 Dose: 50 mg Valsartan (Valsartan 80 Mg Tablet) 80 mg PO BEDTIME [facility]; Protocol Last Admin: 04/18/23 21:03 Dose: 80 mg Allergies Allergies Allergy/AdvReac Type Severity Reaction Status Date / Time aspirin [ASPIRIN] Allergy Unknown UNKNOWN Verified 01/01/23 09:43 Assessment & Plan Assessment & Plan (1) Major neurocognitive disorder: Status: Acute Code(s): F03.90 - Unspecified dementia, unspecified severity, without behavioral disturbance, psychotic disturbance, mood disturbance, and anxiety (2) Mood disorder: Status: Acute Code(s): F39 - Unspecified mood [affective] disorder Plan 04/15 continue tx. reports PRESTON, given one time naproxen- has to limit use of NSAID as pt on plavix. 04/16 continue tx. 04/19: no change in presentation, no notable events or behaviors. continue current mgmt. Reason for continued inpatient stay Substantial Risk for: inability to function and rapid decompensation Time Spent With Patient Time: Total time managing care of this patient today ____ minutes.
[2023-04-19 11:36] LABS: Glucose, Whole Blood 272 mg/dL (60-115)
[2023-04-19] MEDS: Insulin Lispro 100 UNIT/ML 3 ML VIAL SUBCUT (13:33)
[2023-04-19] MEDS: Gabapentin 600 MG TABLET PO ×2 (15:06→20:37)
[2023-04-19 16:07] LABS: Glucose, Whole Blood 88 mg/dL (60-115)
[2023-04-19 18:00] VITALS: BP 171/75; PULSE 74; RESP 18; TEMP 36; O2SAT 98
[2023-04-19] MEDS: Atorvastatin Calcium 20 MG TABLET PO (20:37)
[2023-04-19] MEDS: Donepezil HCl 10 MG TABLET PO (20:37)
[2023-04-19] MEDS: Valsartan 80 MG TABLET PO (20:38)
[2023-04-19 21:33] LABS: Glucose, Whole Blood 188 mg/dL (60-115)
[2023-04-19] MEDS: Insulin Glargine,Hum.rec.anlog 100 UNIT/ML 10 ML VIAL 50 UNIT SUBCUT (21:51)
[2023-04-20] MEDS: Acetaminophen 325 MG TABLET 650 MG PO ×3 (05:04→20:53)
[2023-04-20] MEDS: Levothyroxine Sodium 75 MCG TABLET PO (05:05)
[2023-04-20 06:24] LABS: Glucose, Whole Blood 102 mg/dL (60-115)
[2023-04-20 08:18] VITALS: BP 173/79; PULSE 84; RESP 17; TEMP 36.4; O2SAT 96
[2023-04-20] MEDS: Metoprolol Tartrate 25 MG TABLET PO (08:55)
[2023-04-20] MEDS: Clopidogrel Bisulfate 75 MG TABLET PO (08:55)
[2023-04-20] MEDS: Memantine HCl 10 MG TABLET PO ×2 (08:55→20:54)
[2023-04-20] MEDS: Escitalopram Oxalate 10 MG TABLET PO (08:55)
[2023-04-20] MEDS: Lidocaine 4 % Patch ADH..PATCH 1 PATCH TRANSDERMA (08:58)
[2023-04-20] MEDS: Insulin Glargine,Hum.rec.anlog 100 UNIT/ML 10 ML VIAL 20 UNIT SUBCUT (09:01)
--- NOTE | 2023-04-20 10:32 | P.PNPSI_ITS ---
Subjective Subjective Date of Service: 04/20/23 Reason For Visit: Depression Interim History: calm, cooperative, denying any problems or concerns. language support from OT Mar. per staff, taking meds, pleasant. attending groups, no behavioral concerns. Mental Status Exam Mental Status Exam Narrative: Appearance: Casual attire, good hygiene, uncomfortable in bed. Complaining of leg pain Behavior: cooperative, calm Psychomotor: no agitation noted Speech: clear, normal rate/rhythm/volume, spontaneous TP: linear Mood: not assessed Affect: congruent, bright VH/AH: none expressed Delusions: none expressed Insight/judgment: fair x 2. Memory/cog: alert, oriented x 3. Diagnostics Vital Signs (24Hr): Vital Signs - 24 hr 04/19/23 18:00 04/20/23 08:18 Temperature 96.8 F 97.6 F Pulse Rate 74 84 Respiratory Rate 18 17 Blood Pressure 171/75 H 173/79 H Pulse Oximetry 98 96 Oxygen Delivery Method Room Air Room Air BMI result Body Mass Index 28.2 Labs 01/07/23 17:49 01/07/23 17:49 Labs: Laboratory Results - last 48 hr 04/18/23 04/18/23 04/18/23 10:53 11:22 16:16 POC Glucose 275 H 185 H COVID-19 ([facility]) Negative COVID-19 Clin Com See Note 04/18/23 04/19/23 04/19/23 21:00 06:07 11:24 POC Glucose 255 H 103 272 H COVID-19 ([facility]) COVID-19 Clin Com 04/19/23 04/19/23 04/20/23 16:03 20:35 05:06 POC Glucose 88 188 H 102 COVID-19 ([facility]) COVID-19 Clin Com Imaging Radiology Impressions: ITS Impressions Venous Duplex 01/30/23 16:02 IMPRESSION: No DVT demonstrated in the bilateral lower extremity. Knee X-Ray 04/13/23 16:15 IMPRESSION: Mild degenerative changes medial and patellofemoral compartment both knees. No visible acute fracture, dislocation or subluxation seen. Knee X-Ray 04/13/23 16:15 IMPRESSION: Mild degenerative changes medial and patellofemoral compartment both knees. No visible acute fracture, dislocation or subluxation seen. Medications Medications Current Medications Acetaminophen (Acetaminophen 325 Mg Tablet) 650 mg PO TID [facility]DEE Last Admin: 04/20/23 05:04 Dose: 650 mg Artificial Tears (Artificial Tears 15 Ml Drops) 1 drop EYE-BOTH Q4H PRN PRN Reason: Dry Eyes Atorvastatin Calcium (Atorvastatin Calcium 20 Mg Tablet) 20 mg PO BEDTIME [facility] Last Admin: 04/19/23 20:37 Dose: 20 mg Bisacodyl (Bisacodyl 10 Mg Supp.Rect) 10 mg [place] DAILY PRN PRN Reason: Constipation Clopidogrel Bisulfate (Clopidogrel Bisulfate 75 Mg Tablet) 75 mg PO DAILY [facility] Last Admin: 04/20/23 08:55 Dose: 75 mg Donepezil HCl (Donepezil Hcl 10 Mg Tablet) 10 mg PO BEDTIME [facility] Last Admin: 04/19/23 20:37 Dose: 10 mg Escitalopram Oxalate (Escitalopram Oxalate 10 Mg Tablet) 10 mg PO DAILY [facility] Last Admin: 04/20/23 08:55 Dose: 10 mg Gabapentin (Gabapentin 600 Mg Tablet) 600 mg PO BEDTIME [facility] Last Admin: 04/19/23 20:37 Dose: 600 mg Gabapentin (Gabapentin 600 Mg Tablet) 600 mg PO DAILY@1300 [facility] Last Admin: 04/19/23 15:06 Dose: 600 mg Glucagon (Glucagon Hcl 1 Mg Vial) 1 mg SUBCUT Q20M PRN PRN Reason: BG <70 AND UNRESPONSIVE Glucose (Glucose Gel 15 Gm Gel..Gram.) 15 gm PO Q15M PRN PRN Reason: BG <70 AND RESPONSIVE Last Admin: 01/30/23 03:12 Dose: 15 gm Insulin Glargine (Insulin Glargine,Hum.Rec.Anlog 100 Unit/Ml 10 Ml Vial) 50 unit SUBCUT BEDTIME [facility] Last Admin: 04/19/23 21:51 Dose: 50 unit Insulin Glargine (Insulin Glargine,Hum.Rec.Anlog 100 Unit/Ml 10 Ml Vial) 20 unit SUBCUT DAILY [facility] Last Admin: 04/20/23 09:01 Dose: 20 unit Insulin Human Lispro (Insulin Lispro 100 Unit/Ml 3 Ml Vial) 0 unit SUBCUT TIDAC [facility]; Protocol Last Admin: 04/20/23 07:39 Dose: Not Given Levothyroxine Sodium (Levothyroxine Sodium 75 Mcg Tablet) 75 mcg PO DAILY@0630 [facility] Last Admin: 04/20/23 05:05 Dose: 75 mcg Lidocaine (Lidocaine 4 % Patch Adh..Patch) 1 patch TRANSDERMA DAILY [facility]; Protocol Last Admin: 04/20/23 08:58 Dose: 1 patch Loperamide HCl (Loperamide Hcl 2 Mg Capsule) 2 mg PO Q6H PRN PRN Reason: diarrhea Last Admin: 03/19/23 17:40 Dose: 2 mg Loperamide HCl (Loperamide Hcl 2 Mg Capsule) 4 mg PO Q4H PRN PRN Reason: Diarrhea Last Admin: 04/07/23 01:14 Dose: 4 mg Magnesium Hydroxide (Milk Of Magnesia 30 Ml Oral.Susp) 30 ml PO DAILY PRN PRN Reason: Constipation Memantine (Memantine Hcl 10 Mg Tablet) 10 mg PO BID [facility] Last Admin: 04/20/23 08:55 Dose: 10 mg Metoprolol Tartrate (Metoprolol Tartrate 25 Mg Tablet) 25 mg PO DAILY [facility]; Protocol Last Admin: 04/20/23 08:55 Dose: 25 mg Pt Own Trulicity ( (Dulaglutide 0.75 Mg)) 0.75 mg SUBCUT Tu@1730 [facility] Last Admin: 04/15/23 20:38 Dose: 0.75 mg Sodium Biphosphate/Sodium Phosphate (Sodium Phosphate,[place]-Dibasic 133 Ml Enema) 133 ml [place] DAILY PRN PRN Reason: Constipation Trazodone HCl (Trazodone Hcl 50 Mg Tablet) 50 mg PO BEDTIME PRN PRN Reason: Insomnia Last Admin: 04/16/23 00:58 Dose: 50 mg Valsartan (Valsartan 80 Mg Tablet) 80 mg PO BEDTIME [facility]; Protocol Last Admin: 04/19/23 20:38 Dose: 80 mg Allergies Allergies Allergy/AdvReac Type Severity Reaction Status Date / Time aspirin [ASPIRIN] Allergy Unknown UNKNOWN Verified 01/01/23 09:43 Assessment & Plan Assessment & Plan (1) Major neurocognitive disorder: Status: Acute Code(s): F03.90 - Unspecified dementia, unspecified severity, without behavioral disturbance, psychotic disturbance, mood disturbance, and anxiety (2) Mood disorder: Status: Acute Code(s): F39 - Unspecified mood [affective] disorder Plan 04/15 continue tx. reports PRESTON, given one time naproxen- has to limit use of NSAID as pt on plavix. 04/16 continue tx. 04/17 continue tx 12/22 continue tx. 04/19: stable. continue current mgmt. Reason for continued inpatient stay Substantial Risk for: inability to function and rapid decompensation Time Spent With Patient Time: Total time managing care of this patient today ____ minutes.
[2023-04-20 11:48] LABS: Glucose, Whole Blood 261 mg/dL (60-115)
[2023-04-20] MEDS: Insulin Lispro 100 UNIT/ML 3 ML VIAL SUBCUT (11:52)
[2023-04-20] MEDS: Gabapentin 600 MG TABLET PO ×2 (12:42→20:53)
[2023-04-20 16:34] LABS: Glucose, Whole Blood 82 mg/dL (60-115)
[2023-04-20 18:00] VITALS: BP 167/72; PULSE 78; RESP 18; TEMP 36.4; O2SAT 99
[2023-04-20 19:12] LABS: COVID-19 Test Negative (Negative); IDNOW Serial# 6674DD1D
[2023-04-20 20:12] LABS: Glucose, Whole Blood 192 mg/dL (60-115)
[2023-04-20] MEDS: Donepezil HCl 10 MG TABLET PO (20:53)
[2023-04-20] MEDS: Atorvastatin Calcium 20 MG TABLET PO (20:53)
[2023-04-20] MEDS: Valsartan 80 MG TABLET PO (20:54)
[2023-04-20] MEDS: Insulin Glargine,Hum.rec.anlog 100 UNIT/ML 10 ML VIAL 50 UNIT SUBCUT (20:56)
[2023-04-21 06:22] LABS: Glucose, Whole Blood 131 mg/dL (60-115)
[2023-04-21 08:42] VITALS: BP 126/56; PULSE 81; RESP 17; TEMP 36.6; O2SAT 97
[2023-04-21] MEDS: Acetaminophen 325 MG TABLET 650 MG PO ×3 (09:34→21:08)
[2023-04-21] MEDS: Clopidogrel Bisulfate 75 MG TABLET PO (09:34)
[2023-04-21] MEDS: Metoprolol Tartrate 25 MG TABLET PO (09:35)
[2023-04-21] MEDS: Escitalopram Oxalate 10 MG TABLET PO (09:35)
[2023-04-21] MEDS: Memantine HCl 10 MG TABLET PO ×2 (09:35→21:09)
[2023-04-21] MEDS: Insulin Glargine,Hum.rec.anlog 100 UNIT/ML 10 ML VIAL 20 UNIT SUBCUT (09:37)
[2023-04-21] MEDS: Lidocaine 4 % Patch ADH..PATCH 1 PATCH TRANSDERMA (09:40)
--- NOTE | 2023-04-21 11:45 | P.PNPSI_ITS ---
Subjective Subjective Date of Service: 04/21/23 Reason For Visit: Depression Interim History: calm, cooperative. denies pain or need for any help. per staff, poor sleep overnight. no issues. slept about 4 hours. POC 131. Mental Status Exam Mental Status Exam Narrative: Appearance: Casual attire, good hygiene, Behavior: cooperative, calm Psychomotor: no agitation noted Speech: clear, normal rate/rhythm/volume, spontaneous TP: linear Mood: not assessed Affect: congruent, bright VH/AH: none expressed Delusions: none expressed Insight/judgment: fair x 2. Memory/cog: alert, oriented x 3. Diagnostics Vital Signs (24Hr): Vital Signs - 24 hr 04/20/23 18:00 04/21/23 08:42 Temperature 97.5 F 97.8 F Pulse Rate 78 81 Respiratory Rate 18 17 Blood Pressure 167/72 H 126/56 L Pulse Oximetry 99 97 Oxygen Delivery Method Room Air Room Air BMI result Body Mass Index 28.2 Labs 01/07/23 17:49 01/07/23 17:49 Labs: Laboratory Results - last 48 hr 04/19/23 04/19/23 04/20/23 16:03 20:35 05:06 POC Glucose 88 188 H 102 COVID-19 ([facility]) COVID-19 Clin Com 04/20/23 04/20/23 04/20/23 11:45 16:29 18:45 POC Glucose 261 H 82 COVID-19 ([facility]) Negative COVID-19 Clin Com See Note 04/20/23 04/21/23 20:02 06:01 POC Glucose 192 H 131 H COVID-19 ([facility]) COVID-19 Clin Com Imaging Radiology Impressions: ITS Impressions Venous Duplex 01/30/23 16:02 IMPRESSION: No DVT demonstrated in the bilateral lower extremity. Knee X-Ray 04/13/23 16:15 IMPRESSION: Mild degenerative changes medial and patellofemoral compartment both knees. No visible acute fracture, dislocation or subluxation seen. Knee X-Ray 04/13/23 16:15 IMPRESSION: Mild degenerative changes medial and patellofemoral compartment both knees. No visible acute fracture, dislocation or subluxation seen. Medications Medications Current Medications Acetaminophen (Acetaminophen 325 Mg Tablet) 650 mg PO TID [facility] Last Admin: 04/21/23 09:34 Dose: 650 mg Artificial Tears (Artificial Tears 15 Ml Drops) 1 drop EYE-BOTH Q4H PRN PRN Reason: Dry Eyes Atorvastatin Calcium (Atorvastatin Calcium 20 Mg Tablet) 20 mg PO BEDTIME [facility] Last Admin: 04/20/23 20:53 Dose: 20 mg Bisacodyl (Bisacodyl 10 Mg Supp.Rect) 10 mg [place] DAILY PRN PRN Reason: Constipation Clopidogrel Bisulfate (Clopidogrel Bisulfate 75 Mg Tablet) 75 mg PO DAILY [facility] Last Admin: 04/21/23 09:34 Dose: 75 mg Donepezil HCl (Donepezil Hcl 10 Mg Tablet) 10 mg PO BEDTIME [facility] Last Admin: 04/20/23 20:53 Dose: 10 mg Escitalopram Oxalate (Escitalopram Oxalate 10 Mg Tablet) 10 mg PO DAILY [facility] Last Admin: 04/21/23 09:35 Dose: 10 mg Gabapentin (Gabapentin 600 Mg Tablet) 600 mg PO BEDTIME [facility] Last Admin: 04/20/23 20:53 Dose: 600 mg Gabapentin (Gabapentin 600 Mg Tablet) 600 mg PO DAILY@1300 [facility] Last Admin: 04/20/23 12:42 Dose: 600 mg Glucagon (Glucagon Hcl 1 Mg Vial) 1 mg SUBCUT Q20M PRN PRN Reason: BG <70 AND UNRESPONSIVE Glucose (Glucose Gel 15 Gm Gel..Gram.) 15 gm PO Q15M PRN PRN Reason: BG <70 AND RESPONSIVE Last Admin: 01/30/23 03:12 Dose: 15 gm Insulin Glargine (Insulin Glargine,Hum.Rec.Anlog 100 Unit/Ml 10 Ml Vial) 50 unit SUBCUT BEDTIME [facility] Last Admin: 04/20/23 20:56 Dose: 50 unit Insulin Glargine (Insulin Glargine,Hum.Rec.Anlog 100 Unit/Ml 10 Ml Vial) 20 unit SUBCUT DAILY [facility] Last Admin: 04/21/23 09:37 Dose: 20 unit Insulin Human Lispro (Insulin Lispro 100 Unit/Ml 3 Ml Vial) 0 unit SUBCUT TIDAC [facility]; Protocol Last Admin: 04/21/23 07:50 Dose: Not Given Levothyroxine Sodium (Levothyroxine Sodium 75 Mcg Tablet) 75 mcg PO DAILY@0630 [facility] Last Admin: 04/20/23 05:05 Dose: 75 mcg Lidocaine (Lidocaine 4 % Patch Adh..Patch) 1 patch TRANSDERMA DAILY [facility]; Protocol Last Admin: 04/21/23 09:40 Dose: 1 patch Loperamide HCl (Loperamide Hcl 2 Mg Capsule) 2 mg PO Q6H PRN PRN Reason: diarrhea Last Admin: 03/19/23 17:40 Dose: 2 mg Loperamide HCl (Loperamide Hcl 2 Mg Capsule) 4 mg PO Q4H PRN PRN Reason: Diarrhea Last Admin: 04/07/23 01:14 Dose: 4 mg Magnesium Hydroxide (Milk Of Magnesia 30 Ml Oral.Susp) 30 ml PO DAILY PRN PRN Reason: Constipation Memantine (Memantine Hcl 10 Mg Tablet) 10 mg PO BID [facility] Last Admin: 04/21/23 09:35 Dose: 10 mg Metoprolol Tartrate (Metoprolol Tartrate 25 Mg Tablet) 25 mg PO DAILY [facility]; Protocol Last Admin: 04/21/23 09:35 Dose: 25 mg Pt Own Trulicity ( (Dulaglutide 0.75 Mg)) 0.75 mg SUBCUT Tu@1730 [facility] Last Admin: 04/15/23 20:38 Dose: 0.75 mg Sodium Biphosphate/Sodium Phosphate (Sodium Phosphate,[place]-Dibasic 133 Ml Enema) 133 ml [place] DAILY PRN PRN Reason: Constipation Trazodone HCl (Trazodone Hcl 50 Mg Tablet) 50 mg PO BEDTIME PRN PRN Reason: Insomnia Last Admin: 04/16/23 00:58 Dose: 50 mg Valsartan (Valsartan 80 Mg Tablet) 80 mg PO BEDTIME [facility]; Protocol Last Admin: 04/20/23 20:54 Dose: 80 mg Allergies Allergies Allergy/AdvReac Type Severity Reaction Status Date / Time aspirin [ASPIRIN] Allergy Unknown UNKNOWN Verified 01/01/23 09:43 Assessment & Plan Assessment & Plan (1) Major neurocognitive disorder: Status: Acute Code(s): F03.90 - Unspecified dementia, unspecified severity, without behavioral disturbance, psychotic disturbance, mood disturbance, and anxiety (2) Mood disorder: Status: Acute Code(s): F39 - Unspecified mood [affective] disorder Plan 04/15 continue tx. reports PRESTON, given one time naproxen- has to limit use of NSAID as pt on plavix. 04/16 continue tx. 04/17 continue tx 04/18 continue tx. 04/19: stable. continue current mgmt. 04/21: stable. continue current mgmt. Reason for continued inpatient stay Substantial Risk for: inability to function Time Spent With Patient Time: Total time managing care of this patient today ____ minutes.
[2023-04-21 11:57] LABS: Glucose, Whole Blood 304 mg/dL (60-115)
[2023-04-21] MEDS: Insulin Lispro 100 UNIT/ML 3 ML VIAL SUBCUT ×2 (12:02→16:29)
[2023-04-21] MEDS: Gabapentin 600 MG TABLET PO ×2 (12:03→21:09)
[2023-04-21 16:24] LABS: Glucose, Whole Blood 206 mg/dL (60-115)
[2023-04-21 18:00] VITALS: BP 144/77; PULSE 79; RESP 18; TEMP 36.6; O2SAT 98
[2023-04-21 20:33] LABS: Glucose, Whole Blood 115 mg/dL (60-115)
[2023-04-21] MEDS: Insulin Glargine,Hum.rec.anlog 100 UNIT/ML 10 ML VIAL 50 UNIT SUBCUT (21:07)
[2023-04-21] MEDS: Valsartan 80 MG TABLET PO (21:08)
[2023-04-21] MEDS: Atorvastatin Calcium 20 MG TABLET PO (21:08)
[2023-04-21] MEDS: Donepezil HCl 10 MG TABLET PO (21:09)
[2023-04-22 06:00] VITALS: BP 154/69; PULSE 91; RESP 18; TEMP 36.5; O2SAT 98
[2023-04-22 06:41] LABS: Glucose, Whole Blood 103 mg/dL (60-115)
[2023-04-22] MEDS: Levothyroxine Sodium 75 MCG TABLET PO (06:55)
[2023-04-22] MEDS: Escitalopram Oxalate 10 MG TABLET PO (08:53)
[2023-04-22] MEDS: Metoprolol Tartrate 25 MG TABLET PO (08:53)
[2023-04-22] MEDS: Memantine HCl 10 MG TABLET PO ×2 (08:53→21:36)
[2023-04-22] MEDS: Acetaminophen 325 MG TABLET 650 MG PO ×3 (08:54→21:36)
[2023-04-22] MEDS: Insulin Glargine,Hum.rec.anlog 100 UNIT/ML 10 ML VIAL 20 UNIT SUBCUT (08:56)
[2023-04-22] MEDS: Loperamide HCl 2 MG CAPSULE 4 MG PO (09:16)
[2023-04-22] MEDS: Lidocaine 4 % Patch ADH..PATCH 1 PATCH TRANSDERMA (09:17)
--- NOTE | 2023-04-22 09:33 | HO.PSYCHPN ---
Subjective Subjective Date of Service: 04/22/23 Reason For Visit: Depression Subjective Notes: Conditional Voluntary Interim History: Pt slept better last night. She denies SI/HI. She reports feeling well. No physical concerns. Pt visible on the unit and attends assigned groups. Review of Systems Review of Systems Yes all other systems are reviewed and are negative Mental Status Exam Mental Status Exam Narrative: Appearance: Casual attire, good hygiene, Behavior: cooperative, calm Psychomotor: no agitation noted Speech: clear, normal rate/rhythm/volume, spontaneous TP: linear Mood: not assessed Affect: congruent, bright VH/AH: none expressed Delusions: none expressed Insight/judgment: fair x 2. Memory/cog: alert, oriented x 3. Diagnostics Vital Signs (24Hr): Vital Signs - 24 hr 04/21/23 18:00 04/22/23 06:00 Temperature 98 F 97.7 F Pulse Rate 79 91 Respiratory Rate 18 18 Blood Pressure 144/77 H 154/69 H Pulse Oximetry 98 98 Oxygen Delivery Method Room Air Room Air BMI result Body Mass Index 28.2 Labs 01/07/23 17:49 01/07/23 17:49 Labs: Laboratory Results - last 48 hr 04/20/23 04/20/23 04/20/23 11:45 16:29 18:45 POC Glucose 261 H 82 COVID-19 ([facility]) Negative COVID-19 Clin Com See Note 04/20/23 04/21/23 04/21/23 20:02 06:01 11:53 POC Glucose 192 H 131 H 304 H COVID-19 ([facility]) COVID-19 Clin Com 04/21/23 04/21/23 04/22/23 16:19 20:09 06:37 POC Glucose 206 H 115 103 COVID-19 ([facility]) COVID-19 Clin Com Imaging Radiology Impressions: ITS Impressions Venous Duplex 01/30/23 16:02 IMPRESSION: No DVT demonstrated in the bilateral lower extremity. Knee X-Ray 04/13/23 16:15 IMPRESSION: Mild degenerative changes medial and patellofemoral compartment both knees. No visible acute fracture, dislocation or subluxation seen. Knee X-Ray 04/13/23 16:15 IMPRESSION: Mild degenerative changes medial and patellofemoral compartment both knees. No visible acute fracture, dislocation or subluxation seen. Medications Medications Current Medications Acetaminophen (Acetaminophen 325 Mg Tablet) 650 mg PO TID [facility] Last Admin: 04/22/23 08:54 Dose: 650 mg Artificial Tears (Artificial Tears 15 Ml Drops) 1 drop EYE-BOTH Q4H PRN PRN Reason: Dry Eyes Atorvastatin Calcium (Atorvastatin Calcium 20 Mg Tablet) 20 mg PO BEDTIME [facility] Last Admin: 04/21/23 21:08 Dose: 20 mg Bisacodyl (Bisacodyl 10 Mg Supp.Rect) 10 mg [place] DAILY PRN PRN Reason: Constipation Clopidogrel Bisulfate (Clopidogrel Bisulfate 75 Mg Tablet) 75 mg PO DAILY [facility] Last Admin: 04/21/23 09:34 Dose: 75 mg Donepezil HCl (Donepezil Hcl 10 Mg Tablet) 10 mg PO BEDTIME [facility] Last Admin: 04/21/23 21:09 Dose: 10 mg Escitalopram Oxalate (Escitalopram Oxalate 10 Mg Tablet) 10 mg PO DAILY [facility] Last Admin: 04/22/23 08:53 Dose: 10 mg Gabapentin (Gabapentin 600 Mg Tablet) 600 mg PO BEDTIME [facility] Last Admin: 04/21/23 21:09 Dose: 600 mg Gabapentin (Gabapentin 600 Mg Tablet) 600 mg PO DAILY@1300 [facility] Last Admin: 04/21/23 12:03 Dose: 600 mg Glucagon (Glucagon Hcl 1 Mg Vial) 1 mg SUBCUT Q20M PRN PRN Reason: BG <70 AND UNRESPONSIVE Glucose (Glucose Gel 15 Gm Gel..Gram.) 15 gm PO Q15M PRN PRN Reason: BG <70 AND RESPONSIVE Last Admin: 01/30/23 03:12 Dose: 15 gm Insulin Glargine (Insulin Glargine,Hum.Rec.Anlog 100 Unit/Ml 10 Ml Vial) 50 unit SUBCUT BEDTIME [facility] Last Admin: 04/21/23 21:07 Dose: 50 unit Insulin Glargine (Insulin Glargine,Hum.Rec.Anlog 100 Unit/Ml 10 Ml Vial) 20 unit SUBCUT DAILY [facility] Last Admin: 04/22/23 08:56 Dose: 20 unit Insulin Human Lispro (Insulin Lispro 100 Unit/Ml 3 Ml Vial) 0 unit SUBCUT TIDAC [facility]; Protocol Last Admin: 04/22/23 08:53 Dose: Not Given Levothyroxine Sodium (Levothyroxine Sodium 75 Mcg Tablet) 75 mcg PO DAILY@0630 [facility] Last Admin: 04/22/23 07:41 Dose: Not Given Lidocaine (Lidocaine 4 % Patch Adh..Patch) 1 patch TRANSDERMA DAILY [facility]; Protocol Last Admin: 04/22/23 09:17 Dose: 1 patch Loperamide HCl (Loperamide Hcl 2 Mg Capsule) 2 mg PO Q6H PRN PRN Reason: diarrhea Last Admin: 03/19/23 17:40 Dose: 2 mg Loperamide HCl (Loperamide Hcl 2 Mg Capsule) 4 mg PO Q4H PRN PRN Reason: Diarrhea Last Admin: 04/22/23 09:16 Dose: 4 mg Magnesium Hydroxide (Milk Of Magnesia 30 Ml Oral.Susp) 30 ml PO DAILY PRN PRN Reason: Constipation Memantine (Memantine Hcl 10 Mg Tablet) 10 mg PO BID [facility] Last Admin: 04/22/23 08:53 Dose: 10 mg Metoprolol Tartrate (Metoprolol Tartrate 25 Mg Tablet) 25 mg PO DAILY [facility]; Protocol Last Admin: 04/22/23 08:53 Dose: 25 mg Pt Own Trulicity ( (Dulaglutide 0.75 Mg)) 0.75 mg SUBCUT Tu@1730 [facility] Last Admin: 04/15/23 20:38 Dose: 0.75 mg Sodium Biphosphate/Sodium Phosphate (Sodium Phosphate,[place]-Dibasic 133 Ml Enema) 133 ml MD DAILY PRN PRN Reason: Constipation Trazodone HCl (Trazodone Hcl 50 Mg Tablet) 50 mg PO BEDTIME PRN PRN Reason: Insomnia Last Admin: 04/16/23 00:58 Dose: 50 mg Valsartan (Valsartan 80 Mg Tablet) 80 mg PO BEDTIME [facility]; Protocol Last Admin: 04/21/23 21:08 Dose: 80 mg Allergies Allergies Allergy/AdvReac Type Severity Reaction Status Date / Time aspirin [ASPIRIN] Allergy Unknown UNKNOWN Verified 01/01/23 09:43 Assessment & Plan Assessment & Plan (1) Major neurocognitive disorder: Status: Acute Code(s): F03.90 - Unspecified dementia, unspecified severity, without behavioral disturbance, psychotic disturbance, mood disturbance, and anxiety (2) Mood disorder: Status: Acute Code(s): F39 - Unspecified mood [affective] disorder Plan 04/15 continue tx. reports PRESTON, given one time naproxen- has to limit use of NSAID as pt on plavix. 04/16 continue tx. 04/17 continue tx 04/18 continue tx. 04/19: stable. continue current mgmt. 04/21: stable. continue current mgmt. 04/22 continue tx. Reason for continued inpatient stay Substantial Risk for: inability to function Time Spent With Patient Time: Total time managing care of this patient today ____ minutes.
[2023-04-22 09:40] LABS: COVID-19 Test Negative (Negative); IDNOW Serial# BCCEAD1C
[2023-04-22] MEDS: Clopidogrel Bisulfate 75 MG TABLET PO (11:30)
[2023-04-22 11:35] LABS: Glucose, Whole Blood 265 mg/dL (60-115)
[2023-04-22] MEDS: Insulin Lispro 100 UNIT/ML 3 ML VIAL SUBCUT ×2 (11:38→16:32)
[2023-04-22] MEDS: Gabapentin 600 MG TABLET PO ×2 (12:44→21:35)
[2023-04-22 16:21] LABS: Glucose, Whole Blood 229 mg/dL (60-115)
[2023-04-22 18:00] VITALS: BP 128/68; PULSE 75; RESP 16; TEMP 36.2; O2SAT 99
[2023-04-22 20:30] LABS: Glucose, Whole Blood 121 mg/dL (60-115)
[2023-04-22] MEDS: Atorvastatin Calcium 20 MG TABLET PO (21:36)
[2023-04-22] MEDS: Valsartan 80 MG TABLET PO (21:36)
[2023-04-22] MEDS: Donepezil HCl 10 MG TABLET PO (21:36)
[2023-04-22] MEDS: Insulin Glargine,Hum.rec.anlog 100 UNIT/ML 10 ML VIAL 50 UNIT SUBCUT (21:37)
[2023-04-23] MEDS: traZODone HCL 50 MG TABLET PO ×2 (02:28→20:29)
[2023-04-23] MEDS: Levothyroxine Sodium 75 MCG TABLET PO (05:33)
[2023-04-23 06:15] LABS: Glucose, Whole Blood 94 mg/dL (60-115)
[2023-04-23 07:55] VITALS: BP 120/72; PULSE 78; RESP 18; TEMP 36.4; O2SAT 97
[2023-04-23] MEDS: Acetaminophen 325 MG TABLET 650 MG PO ×3 (08:04→20:27)
[2023-04-23] MEDS: Metoprolol Tartrate 25 MG TABLET PO (08:04)
[2023-04-23] MEDS: Escitalopram Oxalate 10 MG TABLET PO (08:05)
[2023-04-23] MEDS: Memantine HCl 10 MG TABLET PO ×2 (08:05→20:28)
[2023-04-23] MEDS: Clopidogrel Bisulfate 75 MG TABLET PO (08:05)
[2023-04-23] MEDS: Insulin Glargine,Hum.rec.anlog 100 UNIT/ML 10 ML VIAL 20 UNIT SUBCUT (08:05)
[2023-04-23] MEDS: Lidocaine 4 % Patch ADH..PATCH 1 PATCH TRANSDERMA (08:10)
[2023-04-23 11:38] LABS: Glucose, Whole Blood 336 mg/dL (60-115)
[2023-04-23] MEDS: Insulin Lispro 100 UNIT/ML 3 ML VIAL SUBCUT ×2 (11:39→16:29)
--- NOTE | 2023-04-23 12:04 | HO.PSYCHPN ---
Subjective Subjective Date of Service: 04/23/23 Reason For Visit: Depression Subjective Notes: Conditional Voluntary Interim History: Pt slept last night. She denies SI/HI. She reports feeling well. No physical concerns. Pt visible on the unit and attends assigned groups. She needed to be reminded boundaries with male peer. No behavioral concerns. Review of Systems Review of Systems Yes all other systems are reviewed and are negative Mental Status Exam Mental Status Exam Narrative: Appearance: Casual attire, good hygiene, Behavior: cooperative, calm Psychomotor: no agitation noted Speech: clear, normal rate/rhythm/volume, spontaneous TP: linear Mood: not assessed Affect: congruent, bright VH/AH: none expressed Delusions: none expressed Insight/judgment: fair x 2. Memory/cog: alert, oriented x 3. Diagnostics Vital Signs (24Hr): Vital Signs - 24 hr 04/22/23 18:00 04/23/23 07:55 Temperature 97.2 F 97.6 F Pulse Rate 75 78 Respiratory Rate 16 18 Blood Pressure 128/68 120/72 Pulse Oximetry 99 97 Oxygen Delivery Method Room Air BMI result Body Mass Index 28.2 Labs 01/07/23 17:49 01/07/23 17:49 Labs: Laboratory Results - last 48 hr 04/21/23 04/21/23 04/22/23 16:19 20:09 06:37 POC Glucose 206 H 115 103 COVID-19 ([facility]) COVID-19 Clin Com 04/22/23 04/22/23 04/22/23 09:05 11:30 16:16 POC Glucose 265 H 229 H COVID-19 ([facility]) Negative COVID-19 Clin Com See Note 04/22/23 04/23/23 04/23/23 20:20 05:23 11:34 POC Glucose 121 H 94 336 H COVID-19 ([facility]) COVID-19 Clin Com Imaging Radiology Impressions: ITS Impressions Venous Duplex 01/30/23 16:02 IMPRESSION: No DVT demonstrated in the bilateral lower extremity. Knee X-Ray 04/13/23 16:15 IMPRESSION: Mild degenerative changes medial and patellofemoral compartment both knees. No visible acute fracture, dislocation or subluxation seen. Knee X-Ray 04/13/23 16:15 IMPRESSION: Mild degenerative changes medial and patellofemoral compartment both knees. No visible acute fracture, dislocation or subluxation seen. Medications Medications Current Medications Acetaminophen (Acetaminophen 325 Mg Tablet) 650 mg PO TID [facility] Last Admin: 04/23/23 08:04 Dose: 650 mg Artificial Tears (Artificial Tears 15 Ml Drops) 1 drop EYE-BOTH Q4H PRN PRN Reason: Dry Eyes Atorvastatin Calcium (Atorvastatin Calcium 20 Mg Tablet) 20 mg PO BEDTIME [facility] Last Admin: 04/22/23 21:36 Dose: 20 mg Bisacodyl (Bisacodyl 10 Mg Supp.Rect) 10 mg [place] DAILY PRN PRN Reason: Constipation Clopidogrel Bisulfate (Clopidogrel Bisulfate 75 Mg Tablet) 75 mg PO DAILY [facility] Last Admin: 04/23/23 08:05 Dose: 75 mg Donepezil HCl (Donepezil Hcl 10 Mg Tablet) 10 mg PO BEDTIME [facility] Last Admin: 04/22/23 21:36 Dose: 10 mg Escitalopram Oxalate (Escitalopram Oxalate 10 Mg Tablet) 10 mg PO DAILY [facility] Last Admin: 04/23/23 08:05 Dose: 10 mg Gabapentin (Gabapentin 600 Mg Tablet) 600 mg PO BEDTIME [facility] Last Admin: 04/22/23 21:35 Dose: 600 mg Gabapentin (Gabapentin 600 Mg Tablet) 600 mg PO DAILY@1300 [facility] Last Admin: 04/22/23 12:44 Dose: 600 mg Glucagon (Glucagon Hcl 1 Mg Vial) 1 mg SUBCUT Q20M PRN PRN Reason: BG <70 AND UNRESPONSIVE Glucose (Glucose Gel 15 Gm Gel..Gram.) 15 gm PO Q15M PRN PRN Reason: BG <70 AND RESPONSIVE Last Admin: 01/30/23 03:12 Dose: 15 gm Insulin Glargine (Insulin Glargine,Hum.Rec.Anlog 100 Unit/Ml 10 Ml Vial) 50 unit SUBCUT BEDTIME [facility] Last Admin: 04/22/23 21:37 Dose: 50 unit Insulin Glargine (Insulin Glargine,Hum.Rec.Anlog 100 Unit/Ml 10 Ml Vial) 20 unit SUBCUT DAILY [facility] Last Admin: 04/23/23 08:05 Dose: 20 unit Insulin Human Lispro (Insulin Lispro 100 Unit/Ml 3 Ml Vial) 0 unit SUBCUT TIDAC [facility]; Protocol Last Admin: 04/23/23 11:39 Dose: 11 unit Levothyroxine Sodium (Levothyroxine Sodium 75 Mcg Tablet) 75 mcg PO DAILY@0630 [facility] Last Admin: 04/23/23 05:33 Dose: 75 mcg Lidocaine (Lidocaine 4 % Patch Adh..Patch) 1 patch TRANSDERMA DAILY [facility]; Protocol Last Admin: 04/23/23 08:10 Dose: 1 patch Loperamide HCl (Loperamide Hcl 2 Mg Capsule) 4 mg PO Q4H PRN PRN Reason: Diarrhea Last Admin: 04/22/23 09:16 Dose: 4 mg Magnesium Hydroxide (Milk Of Magnesia 30 Ml Oral.Susp) 30 ml PO DAILY PRN PRN Reason: Constipation Memantine (Memantine Hcl 10 Mg Tablet) 10 mg PO BID [facility] Last Admin: 04/23/23 08:05 Dose: 10 mg Metoprolol Tartrate (Metoprolol Tartrate 25 Mg Tablet) 25 mg PO DAILY [facility]; Protocol Last Admin: 04/23/23 08:04 Dose: 25 mg Pt Own Trulicity ( (Dulaglutide 0.75 Mg)) 0.75 mg SUBCUT Tu@1730 [facility] Last Admin: 04/22/23 19:49 Dose: 0.75 mg Sodium Biphosphate/Sodium Phosphate (Sodium Phosphate,[place]-Dibasic 133 Ml Enema) 133 ml [place] DAILY PRN PRN Reason: Constipation Trazodone HCl (Trazodone Hcl 50 Mg Tablet) 50 mg PO BEDTIME PRN PRN Reason: Insomnia Last Admin: 04/23/23 02:28 Dose: 50 mg Valsartan (Valsartan 80 Mg Tablet) 80 mg PO BEDTIME [facility]; Protocol Last Admin: 04/22/23 21:36 Dose: 80 mg Allergies Allergies Allergy/AdvReac Type Severity Reaction Status Date / Time aspirin [ASPIRIN] Allergy Unknown UNKNOWN Verified 01/01/23 09:43 Assessment & Plan Assessment & Plan (1) Major neurocognitive disorder: Status: Acute Code(s): F03.90 - Unspecified dementia, unspecified severity, without behavioral disturbance, psychotic disturbance, mood disturbance, and anxiety (2) Mood disorder: Status: Acute Code(s): F39 - Unspecified mood [affective] disorder Plan 04/15 continue tx. reports PRESTON, given one time naproxen- has to limit use of NSAID as pt on plavix. 04/16 continue tx. 04/17 continue tx 04/18 continue tx. 04/19: stable. continue current mgmt. 04/21: stable. continue current mgmt. 04/22 continue tx. 04/23 continue tx. Reason for continued inpatient stay Substantial Risk for: inability to function Time Spent With Patient Time: Total time managing care of this patient today ____ minutes.
[2023-04-23] MEDS: Gabapentin 600 MG TABLET PO ×2 (12:22→20:28)
[2023-04-23 16:08] LABS: COVID-19 Test Negative (Negative); IDNOW Serial# 08D9AD1C
[2023-04-23 16:14] LABS: Glucose, Whole Blood 172 mg/dL (60-115)
[2023-04-23 18:00] VITALS: BP 118/58; PULSE 78; RESP 18; TEMP 36.1; O2SAT 98
[2023-04-23] MEDS: Atorvastatin Calcium 20 MG TABLET PO (20:28)
[2023-04-23] MEDS: Donepezil HCl 10 MG TABLET PO (20:28)
[2023-04-23] MEDS: Valsartan 80 MG TABLET PO (20:28)
[2023-04-23] MEDS: Insulin Glargine,Hum.rec.anlog 100 UNIT/ML 10 ML VIAL 50 UNIT SUBCUT (20:35)
[2023-04-23 20:56] LABS: Glucose, Whole Blood 184 mg/dL (60-115)
[2023-04-24] MEDS: Levothyroxine Sodium 75 MCG TABLET PO (06:02)
[2023-04-24 06:19] LABS: Glucose, Whole Blood 124 mg/dL (60-115)
[2023-04-24] MEDS: Insulin Glargine,Hum.rec.anlog 100 UNIT/ML 10 ML VIAL 20 UNIT SUBCUT (08:22)
[2023-04-24] MEDS: Lidocaine 4 % Patch ADH..PATCH 1 PATCH TRANSDERMA (08:22)
[2023-04-24] MEDS: Escitalopram Oxalate 10 MG TABLET PO (08:23)
[2023-04-24] MEDS: Acetaminophen 325 MG TABLET 650 MG PO ×3 (08:23→21:04)
[2023-04-24] MEDS: Memantine HCl 10 MG TABLET PO ×2 (08:23→21:04)
[2023-04-24] MEDS: Clopidogrel Bisulfate 75 MG TABLET PO (08:24)
[2023-04-24 08:28] VITALS: BP 106/53; PULSE 90; RESP 18; TEMP 36.3; O2SAT 95
--- NOTE | 2023-04-24 09:05 | P.PNPSI_ITS ---
Subjective Subjective Date of Service: 04/24/23 Reason For Visit: Depression Subjective Notes: Conditional Voluntary Healthcare Proxy: Yes Interim History: Pt continues to sleep through the night. She denies SI/HI. She reports feeling well. No physical concerns. Pt visible on the unit and attends assigned groups. No behavioral concerns. takes medications as prescribed. Review of Systems Review of Systems Yes all other systems are reviewed and are negative Mental Status Exam Mental Status Exam Narrative: Appearance: Casual attire, good hygiene, Behavior: cooperative, calm Psychomotor: no agitation noted Speech: clear, normal rate/rhythm/volume, spontaneous TP: linear Mood: not assessed Affect: congruent, bright VH/AH: none expressed Delusions: none expressed Insight/judgment: fair x 2. Memory/cog: alert, oriented x 3. Diagnostics Vital Signs (24Hr): Vital Signs - 24 hr 04/23/23 18:00 04/24/23 08:28 Temperature 96.9 F 97.3 F Pulse Rate 78 90 Respiratory Rate 18 18 Blood Pressure 118/58 L 106/53 L Pulse Oximetry 98 95 Oxygen Delivery Method Room Air Room Air BMI result Body Mass Index 28.2 Labs 01/07/23 17:49 01/07/23 17:49 Labs: Laboratory Results - last 48 hr 04/22/23 04/22/23 04/22/23 09:05 11:30 16:16 POC Glucose 265 H 229 H COVID-19 ([facility]) Negative COVID-19 Clin Com See Note 04/22/23 04/23/23 04/23/23 20:20 05:23 11:34 POC Glucose 121 H 94 336 H COVID-19 ([facility]) COVID-19 Clin Com 04/23/23 04/23/23 04/23/23 15:23 16:10 19:56 POC Glucose 172 H 184 H COVID-19 ([facility]) Negative COVID-19 Clin Com See Note 04/24/23 06:05 POC Glucose 124 H COVID-19 ([facility]) COVID-19 Clin Com Imaging Radiology Impressions: ITS Impressions Venous Duplex 01/30/23 16:02 IMPRESSION: No DVT demonstrated in the bilateral lower extremity. Knee X-Ray 04/13/23 16:15 IMPRESSION: Mild degenerative changes medial and patellofemoral compartment both knees. No visible acute fracture, dislocation or subluxation seen. Knee X-Ray 04/13/23 16:15 IMPRESSION: Mild degenerative changes medial and patellofemoral compartment both knees. No visible acute fracture, dislocation or subluxation seen. Medications Medications Current Medications Acetaminophen (Acetaminophen 325 Mg Tablet) 650 mg PO TID [facility] Last Admin: 04/24/23 08:23 Dose: 650 mg Artificial Tears (Artificial Tears 15 Ml Drops) 1 drop EYE-BOTH Q4H PRN PRN Reason: Dry Eyes Atorvastatin Calcium (Atorvastatin Calcium 20 Mg Tablet) 20 mg PO BEDTIME [facility] Last Admin: 04/23/23 20:28 Dose: 20 mg Bisacodyl (Bisacodyl 10 Mg Supp.Rect) 10 mg [place] DAILY PRN PRN Reason: Constipation Clopidogrel Bisulfate (Clopidogrel Bisulfate 75 Mg Tablet) 75 mg PO DAILY [facility] Last Admin: 04/24/23 08:24 Dose: 75 mg Donepezil HCl (Donepezil Hcl 10 Mg Tablet) 10 mg PO BEDTIME [facility] Last Admin: 04/23/23 20:28 Dose: 10 mg Escitalopram Oxalate (Escitalopram Oxalate 10 Mg Tablet) 10 mg PO DAILY [facility] Last Admin: 04/24/23 08:23 Dose: 10 mg Gabapentin (Gabapentin 600 Mg Tablet) 600 mg PO BEDTIME [facility] Last Admin: 04/23/23 20:28 Dose: 600 mg Gabapentin (Gabapentin 600 Mg Tablet) 600 mg PO DAILY@1300 [facility] Last Admin: 04/23/23 12:22 Dose: 600 mg Glucagon (Glucagon Hcl 1 Mg Vial) 1 mg SUBCUT Q20M PRN PRN Reason: BG <70 AND UNRESPONSIVE Glucose (Glucose Gel 15 Gm Gel..Gram.) 15 gm PO Q15M PRN PRN Reason: BG <70 AND RESPONSIVE Last Admin: 01/30/23 03:12 Dose: 15 gm Insulin Glargine (Insulin Glargine,Hum.Rec.Anlog 100 Unit/Ml 10 Ml Vial) 50 unit SUBCUT BEDTIME [facility] Last Admin: 04/23/23 20:35 Dose: 50 unit Insulin Glargine (Insulin Glargine,Hum.Rec.Anlog 100 Unit/Ml 10 Ml Vial) 20 unit SUBCUT DAILY [facility] Last Admin: 04/24/23 08:22 Dose: 20 unit Insulin Human Lispro (Insulin Lispro 100 Unit/Ml 3 Ml Vial) 0 unit SUBCUT TIDAC [facility]; Protocol Last Admin: 04/24/23 06:30 Dose: Not Given Levothyroxine Sodium (Levothyroxine Sodium 75 Mcg Tablet) 75 mcg PO DAILY@0630 [facility] Last Admin: 04/24/23 06:02 Dose: 75 mcg Lidocaine (Lidocaine 4 % Patch Adh..Patch) 1 patch TRANSDERMA DAILY [facility]; Protocol Last Admin: 04/24/23 08:22 Dose: 1 patch Loperamide HCl (Loperamide Hcl 2 Mg Capsule) 4 mg PO Q4H PRN PRN Reason: Diarrhea Last Admin: 04/22/23 09:16 Dose: 4 mg Magnesium Hydroxide (Milk Of Magnesia 30 Ml Oral.Susp) 30 ml PO DAILY PRN PRN Reason: Constipation Memantine (Memantine Hcl 10 Mg Tablet) 10 mg PO BID [facility] Last Admin: 04/24/23 08:23 Dose: 10 mg Metoprolol Tartrate (Metoprolol Tartrate 25 Mg Tablet) 25 mg PO DAILY [facility]; Protocol Last Admin: 04/24/23 08:28 Dose: Not Given Pt Own Trulicity ( (Dulaglutide 0.75 Mg)) 0.75 mg SUBCUT Tu@1730 [facility] Last Admin: 04/22/23 19:49 Dose: 0.75 mg Sodium Biphosphate/Sodium Phosphate (Sodium Phosphate,[place]-Dibasic 133 Ml Enema) 133 ml [place] DAILY PRN PRN Reason: Constipation Trazodone HCl (Trazodone Hcl 50 Mg Tablet) 50 mg PO BEDTIME PRN PRN Reason: Insomnia Last Admin: 04/23/23 20:29 Dose: 50 mg Valsartan (Valsartan 80 Mg Tablet) 80 mg PO BEDTIME [facility]; Protocol Last Admin: 04/23/23 20:28 Dose: 80 mg Allergies Allergies Allergy/AdvReac Type Severity Reaction Status Date / Time aspirin [ASPIRIN] Allergy Unknown UNKNOWN Verified 01/01/23 09:43 Assessment & Plan Assessment & Plan (1) Major neurocognitive disorder: Status: Acute Code(s): F03.90 - Unspecified dementia, unspecified severity, without behavioral disturbance, psychotic disturbance, mood disturbance, and anxiety (2) Mood disorder: Status: Acute Code(s): F39 - Unspecified mood [affective] disorder Plan 04/15 continue tx. reports PRESTON, given one time naproxen- has to limit use of NSAID as pt on plavix. 04/16 continue tx. 04/17 continue tx 04/18 continue tx. 04/19: stable. continue current mgmt. 04/21: stable. continue current mgmt. 04/22 continue tx. 04/23 continue tx. 04/24 continue tx. Reason for continued inpatient stay Substantial Risk for: inability to function Time Spent With Patient Time: Total time managing care of this patient today ____ minutes.
[2023-04-24 11:27] LABS: Glucose, Whole Blood 282 mg/dL (60-115)
[2023-04-24] MEDS: Insulin Lispro 100 UNIT/ML 3 ML VIAL SUBCUT ×2 (11:29→16:29)
[2023-04-24 13:42] VITALS: BMI 32.5
[2023-04-24] MEDS: Gabapentin 600 MG TABLET PO ×2 (13:55→21:04)
[2023-04-24 16:34] LABS: Glucose, Whole Blood 221 mg/dL (60-115)
--- NOTE | 2023-04-24 18:50 | PC.NURSE ---
Pt hyper-sexual towards other patients on milieu, She continues to go in peers room making sexual gestures. New order for 1:[address] Gilbert
[2023-04-24 19:35] VITALS: BP 129/58; PULSE 82; RESP 16; TEMP 36.4; O2SAT 95
[2023-04-24 19:45] LABS: Glucose, Whole Blood 178 mg/dL (60-115)
[2023-04-24] MEDS: Valsartan 80 MG TABLET PO (21:04)
[2023-04-24] MEDS: Atorvastatin Calcium 20 MG TABLET PO (21:04)
[2023-04-24] MEDS: Donepezil HCl 10 MG TABLET PO (21:04)
[2023-04-24] MEDS: Insulin Glargine,Hum.rec.anlog 100 UNIT/ML 10 ML VIAL 50 UNIT SUBCUT (21:05)
[2023-04-24] MEDS: traZODone HCL 50 MG TABLET PO (23:40)
[2023-04-25] MEDS: Levothyroxine Sodium 75 MCG TABLET PO (05:14)
[2023-04-25 05:31] LABS: Glucose, Whole Blood 111 mg/dL (60-115)
[2023-04-25 08:15] VITALS: BP 119/58; PULSE 99; RESP 17; TEMP 36.6; O2SAT 95
[2023-04-25] MEDS: Acetaminophen 325 MG TABLET 650 MG PO ×3 (08:16→20:23)
[2023-04-25] MEDS: Escitalopram Oxalate 10 MG TABLET PO (08:16)
[2023-04-25] MEDS: Memantine HCl 10 MG TABLET PO ×2 (08:16→20:24)
[2023-04-25] MEDS: Clopidogrel Bisulfate 75 MG TABLET PO (08:16)
[2023-04-25] MEDS: Metoprolol Tartrate 25 MG TABLET PO (08:16)
[2023-04-25] MEDS: Insulin Glargine,Hum.rec.anlog 100 UNIT/ML 10 ML VIAL 20 UNIT SUBCUT (08:18)
--- NOTE | 2023-04-25 10:02 | P.PNPSI_ITS ---
Subjective Subjective Date of Service: 04/25/23 Reason For Visit: Depression Subjective Notes: Conditional Voluntary Healthcare Proxy: Yes Interim History: Pt presenting with more hypersexual behaviors. Aid reports pt may be masturbating in room when door is open. She is also with poor boundaries with another male pt on the unit. No overt behavioral concern as pt redirectable and taking medications. Will restart risperidone in combination with depakote. She tells this fiction writer that she misses her family and her daughter is in [place] right now but that she was able to speak with family last night. No SI/HI. No VH/AH. No overt delusional content noted or reported. She slept through the night. takes medications. Diagnostics Vital Signs (24Hr): Vital Signs - 24 hr 04/24/23 19:35 04/25/23 08:15 Temperature 97.6 F 97.8 F Pulse Rate 82 99 Respiratory Rate 16 17 Blood Pressure 129/58 L 119/58 L Pulse Oximetry 95 95 Oxygen Delivery Method Room Air Room Air BMI result Body Mass Index 32.5 Labs 01/07/23 17:49 01/07/23 17:49 Labs: Laboratory Results - last 48 hr 04/23/23 04/23/23 04/23/23 11:34 15:23 16:10 POC Glucose 336 H 172 H COVID-19 ([facility]) Negative COVID-19 [facility] See Note 04/23/23 04/24/23 04/24/23 19:56 06:05 11:20 POC Glucose 184 H 124 H 282 H COVID-19 ([facility]) COVID-19 Clin Com 04/24/23 04/24/23 04/25/23 16:23 19:35 05:28 POC Glucose 221 H 178 H 111 COVID-19 ([facility]) COVID-19 Clin Com Imaging Radiology Impressions: ITS Impressions Venous Duplex 01/30/23 16:02 IMPRESSION: No DVT demonstrated in the bilateral lower extremity. Knee X-Ray 04/13/23 16:15 IMPRESSION: Mild degenerative changes medial and patellofemoral compartment both knees. No visible acute fracture, dislocation or subluxation seen. Knee X-Ray 04/13/23 16:15 IMPRESSION: Mild degenerative changes medial and patellofemoral compartment both knees. No visible acute fracture, dislocation or subluxation seen. Medications Medications Current Medications Acetaminophen (Acetaminophen 325 Mg Tablet) 650 mg PO TID [facility] Last Admin: 04/25/23 08:16 Dose: 650 mg Artificial Tears (Artificial Tears 15 Ml Drops) 1 drop EYE-BOTH Q4H PRN PRN Reason: Dry Eyes Atorvastatin Calcium (Atorvastatin Calcium 20 Mg Tablet) 20 mg PO BEDTIME [facility] Last Admin: 04/24/23 21:04 Dose: 20 mg Bisacodyl (Bisacodyl 10 Mg Supp.Rect) 10 mg [place] DAILY PRN PRN Reason: Constipation Clopidogrel Bisulfate (Clopidogrel Bisulfate 75 Mg Tablet) 75 mg PO DAILY [facility] Last Admin: 04/25/23 08:16 Dose: 75 mg Donepezil HCl (Donepezil Hcl 10 Mg Tablet) 10 mg PO BEDTIME [facility] Last Admin: 04/24/23 21:04 Dose: 10 mg Escitalopram Oxalate (Escitalopram Oxalate 10 Mg Tablet) 10 mg PO DAILY [facility] Last Admin: 04/25/23 08:16 Dose: 10 mg Gabapentin (Gabapentin 600 Mg Tablet) 600 mg PO BEDTIME [facility] Last Admin: 04/24/23 21:04 Dose: 600 mg Gabapentin (Gabapentin 600 Mg Tablet) 600 mg PO DAILY@1300 [facility] Last Admin: 04/24/23 13:55 Dose: 600 mg Glucagon (Glucagon Hcl 1 Mg Vial) 1 mg SUBCUT Q20M PRN PRN Reason: BG <70 AND UNRESPONSIVE Glucose (Glucose Gel 15 Gm Gel..Gram.) 15 gm PO Q15M PRN PRN Reason: BG <70 AND RESPONSIVE Last Admin: 01/30/23 03:12 Dose: 15 gm Insulin Glargine (Insulin Glargine,Hum.Rec.Anlog 100 Unit/Ml 10 Ml Vial) 50 unit SUBCUT BEDTIME [facility] Last Admin: 04/24/23 21:05 Dose: 50 unit Insulin Glargine (Insulin Glargine,Hum.Rec.Anlog 100 Unit/Ml 10 Ml Vial) 20 unit SUBCUT DAILY [facility] Last Admin: 04/25/23 08:18 Dose: 20 unit Insulin Human Lispro (Insulin Lispro 100 Unit/Ml 3 Ml Vial) 0 unit SUBCUT TIDAC [facility]; Protocol Last Admin: 04/25/23 07:54 Dose: Not Given Levothyroxine Sodium (Levothyroxine Sodium 75 Mcg Tablet) 75 mcg PO DAILY@0630 [facility] Last Admin: 04/25/23 05:14 Dose: 75 mcg Lidocaine (Lidocaine 4 % Patch Adh..Patch) 1 patch TRANSDERMA DAILY [facility]; Protocol Last Admin: 04/24/23 08:22 Dose: 1 patch Loperamide HCl (Loperamide Hcl 2 Mg Capsule) 4 mg PO Q4H PRN PRN Reason: Diarrhea Last Admin: 04/22/23 09:16 Dose: 4 mg Magnesium Hydroxide (Milk Of Magnesia 30 Ml Oral.Susp) 30 ml PO DAILY PRN PRN Reason: Constipation Memantine (Memantine Hcl 10 Mg Tablet) 10 mg PO BID [facility] Last Admin: 04/25/23 08:16 Dose: 10 mg Metoprolol Tartrate (Metoprolol Tartrate 25 Mg Tablet) 25 mg PO DAILY [facility]; Protocol Last Admin: 04/25/23 08:16 Dose: 25 mg Pt Own Trulicity ( (Dulaglutide 0.75 Mg)) 0.75 mg SUBCUT Tu@7500 [facility] Last Admin: 04/22/23 19:49 Dose: 0.75 mg Sodium Biphosphate/Sodium Phosphate (Sodium Phosphate,Fisher-Dibasic 133 Ml Enema) 133 ml [place] DAILY PRN PRN Reason: Constipation Trazodone HCl (Trazodone Hcl 50 Mg Tablet) 50 mg PO BEDTIME PRN PRN Reason: Insomnia Last Admin: 04/24/23 23:40 Dose: 50 mg Valsartan (Valsartan 80 Mg Tablet) 80 mg PO BEDTIME [facility]; Protocol Last Admin: 04/24/23 21:04 Dose: 80 mg Allergies Allergies Allergy/AdvReac Type Severity Reaction Status Date / Time aspirin [ASPIRIN] Allergy Unknown UNKNOWN Verified 01/01/23 09:43 Assessment & Plan Assessment & Plan (1) Major neurocognitive disorder: Status: Acute Code(s): F03.90 - Unspecified dementia, unspecified severity, without behavioral disturbance, psychotic disturbance, mood disturbance, and anxiety (2) Mood disorder: Status: Acute Code(s): F39 - Unspecified mood [affective] disorder Plan 04/15 continue tx. reports PRESTON, given one time naproxen- has to limit use of NSAID as pt on plavix. 04/16 continue tx. 04/17 continue tx 04/18 continue tx. 04/19: stable. continue current mgmt. 04/21: stable. continue current mgmt. 04/22 continue tx. 12/27 continue tx. 04/24 continue tx. 04/25 some concern in terms of increase hypersexual behaviors. will restart risperidone 1mg po BID in addition to depakote. Reason for continued inpatient stay Substantial Risk for: inability to function Time Spent With Patient Time: Total time managing care of this patient today ____ minutes.
[2023-04-25 10:53] LABS: COVID-19 Test Negative (Negative); IDNOW Serial# 9DB6401D
[2023-04-25 11:29] LABS: Glucose, Whole Blood 293 mg/dL (60-115)
[2023-04-25] MEDS: Insulin Lispro 100 UNIT/ML 3 ML VIAL SUBCUT ×2 (11:36→16:55)
[2023-04-25] MEDS: Lidocaine 4 % Patch ADH..PATCH 1 PATCH TRANSDERMA (11:40)
[2023-04-25] MEDS: Gabapentin 600 MG TABLET PO ×2 (13:20→20:24)
[2023-04-25] MEDS: Divalproex Sodium 250 MG TABLET.DR PO (14:22)
[2023-04-25 16:08] LABS: Glucose, Whole Blood 164 mg/dL (60-115)
[2023-04-25 18:00] VITALS: BP 138/67; PULSE 84; RESP 18; TEMP 37; O2SAT 95
[2023-04-25 20:22] LABS: Glucose, Whole Blood 171 mg/dL (60-115)
[2023-04-25] MEDS: Insulin Glargine,Hum.rec.anlog 100 UNIT/ML 10 ML VIAL 50 UNIT SUBCUT (20:23)
[2023-04-25] MEDS: Valsartan 80 MG TABLET PO (20:24)
[2023-04-25] MEDS: traZODone HCL 50 MG TABLET PO (20:24)
[2023-04-25] MEDS: Donepezil HCl 10 MG TABLET PO (20:24)
[2023-04-25] MEDS: Divalproex Sodium 500 MG TABLET.DR PO (20:24)
[2023-04-25] MEDS: Atorvastatin Calcium 20 MG TABLET PO (20:25)
[2023-04-26] MEDS: Levothyroxine Sodium 75 MCG TABLET PO (06:30)
[2023-04-26 06:40] LABS: Glucose, Whole Blood 95 mg/dL (60-115)
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
[2023-04-26 08:00] VITALS: BP 144/65; PULSE 91; RESP 18; TEMP 36.9; O2SAT 97
[2023-04-26] MEDS: Divalproex Sodium 250 MG TABLET.DR PO (08:32)
[2023-04-26] MEDS: Acetaminophen 325 MG TABLET 650 MG PO ×3 (08:32→21:34)
[2023-04-26] MEDS: Clopidogrel Bisulfate 75 MG TABLET PO (08:32)
[2023-04-26] MEDS: Escitalopram Oxalate 10 MG TABLET PO (08:32)
[2023-04-26] MEDS: Metoprolol Tartrate 25 MG TABLET PO (08:33)
[2023-04-26] MEDS: Lidocaine 4 % Patch ADH..PATCH 1 PATCH TRANSDERMA (08:33)
[2023-04-26] MEDS: Memantine HCl 10 MG TABLET PO ×2 (08:33→21:37)
[2023-04-26] MEDS: Insulin Glargine,Hum.rec.anlog 100 UNIT/ML 10 ML VIAL 20 UNIT SUBCUT (08:36)
[2023-04-26 11:12] LABS: Glucose, Whole Blood 284 mg/dL (60-115)
[2023-04-26] MEDS: Insulin Lispro 100 UNIT/ML 3 ML VIAL SUBCUT ×2 (11:40→16:43)
--- NOTE | 2023-04-26 12:41 | PC.NURSE ---
Patient taken off 1: 1 and placed on 5 minute checks with bed alarm at 12:40
[2023-04-26] MEDS: Gabapentin 600 MG TABLET PO ×2 (13:41→21:36)
[2023-04-26 15:54] LABS: Glucose, Whole Blood 202 mg/dL (60-115)
[2023-04-26 18:00] VITALS: BP 128/68; PULSE 88; RESP 18; TEMP 36.6; O2SAT 94
[2023-04-26 20:13] LABS: Glucose, Whole Blood 151 mg/dL (60-115)
[2023-04-26] MEDS: Insulin Glargine,Hum.rec.anlog 100 UNIT/ML 10 ML VIAL 50 UNIT SUBCUT (21:32)
[2023-04-26] MEDS: Valsartan 80 MG TABLET PO (21:33)
[2023-04-26] MEDS: Donepezil HCl 10 MG TABLET PO (21:34)
[2023-04-26] MEDS: Divalproex Sodium 500 MG TABLET.DR PO (21:34)
[2023-04-26] MEDS: traZODone HCL 50 MG TABLET PO ×2 (21:35→23:16)
[2023-04-26] MEDS: Atorvastatin Calcium 20 MG TABLET PO (21:35)
[2023-04-26 23:52] LABS: COVID-19 Test Positive (Negative); IDNOW Serial# 6674DD1D
--- NOTE | 2023-04-26 23:59 | PC.NURSE ---
Patient swabbed for COVID, test results came back positive. Provider automation control integrator notified and housemaid notified.
[2023-04-27] MEDS: Levothyroxine Sodium 75 MCG TABLET PO (06:10)
[2023-04-27 06:28] LABS: Glucose, Whole Blood 100 mg/dL (60-115)
[2023-04-27 08:00] VITALS: BP 140/94; PULSE 92; RESP 18; TEMP 36.4; O2SAT 97
[2023-04-27] MEDS: Insulin Glargine,Hum.rec.anlog 100 UNIT/ML 10 ML VIAL 20 UNIT SUBCUT (08:47)
[2023-04-27] MEDS: Clopidogrel Bisulfate 75 MG TABLET PO (08:48)
[2023-04-27] MEDS: Acetaminophen 325 MG TABLET 650 MG PO ×3 (08:48→20:45)
[2023-04-27] MEDS: Divalproex Sodium 250 MG TABLET.DR PO (08:48)
[2023-04-27] MEDS: Escitalopram Oxalate 10 MG TABLET PO (08:48)
[2023-04-27] MEDS: Metoprolol Tartrate 25 MG TABLET PO (08:48)
[2023-04-27] MEDS: Memantine HCl 10 MG TABLET PO ×2 (08:48→20:45)
[2023-04-27] MEDS: Lidocaine 4 % Patch ADH..PATCH 1 PATCH TRANSDERMA (08:52)
[2023-04-27 11:23] LABS: Glucose, Whole Blood 226 mg/dL (60-115)
[2023-04-27] MEDS: Insulin Lispro 100 UNIT/ML 3 ML VIAL SUBCUT ×2 (11:42→17:00)
[2023-04-27] MEDS: Ibuprofen 400 MG TABLET PO (12:25)
[2023-04-27] MEDS: Gabapentin 600 MG TABLET PO ×2 (13:33→20:45)
[2023-04-27 16:13] LABS: Glucose, Whole Blood 240 mg/dL (60-115)
--- NOTE | 2023-04-27 16:21 | P.PNPSI_ITS ---
Subjective Subjective Date of Service: 04/27/23 Reason For Visit: Depression Subjective Notes: Conditional Voluntary Medical Problems Affecting Mental Status: Yes (covid) Interim History: 67 yo HF reporting feeling ok on current medications- no cough today, just headache- Sleep ok, energy low ,apt ok, no side effects from medications Medication Compliance: Yes Side effects from medications: No Attending Groups: No (not now with covid isolation) Review of Systems Acute medical concerns: Yes covid only mildly symptomatic Review of Systems: recent headache yesterday some cough - none today, no SOB Mental Status Exam Mental Status Exam Patient Appearance: Well Grooomed and Appropriate Patient Orientation: Person, Place and Situation Level of Consciousness: Awake Patient Behavior: Appropriate, Cooperative, Passive and Good Eye Contact Mood Description: Calm Affect Description: Blunted Patient Cognition Impaired: Yes Ability to Follow Directions: Fair Speech Pattern: Impoverished Hallucinations: None Thought Content: positive for [place] and positive for [place] Abnormal Motor Activity Signs and Symptoms: Tremors Judgement: Fair Diagnostics Vital Signs (24Hr): Vital Signs - 24 hr 04/26/23 18:00 04/27/23 08:00 Temperature 97.9 F 97.5 F Pulse Rate 88 92 Respiratory Rate 18 18 Blood Pressure 128/68 140/94 H Pulse Oximetry 94 97 Oxygen Delivery Method Room Air Room Air BMI result Body Mass Index 32.5 Labs 01/07/23 17:49 01/07/23 17:49 Labs: Laboratory Results - last 48 hr 04/25/23 04/26/23 04/26/23 19:37 06:29 11:08 POC Glucose 171 H 95 284 H COVID-19 ([facility]) COVID-19 Clin Com 04/26/23 04/26/23 04/26/23 15:49 19:52 23:20 POC Glucose 202 H 151 H COVID-19 ([facility]) Positive A COVID-19 Clin Com See Note 04/27/23 04/27/23 04/27/23 06:11 11:18 16:08 POC Glucose 100 226 H 240 H COVID-19 ([facility]) COVID-19 Clin Com Imaging Radiology Impressions: ITS Impressions Venous Duplex 01/30/23 16:02 IMPRESSION: No DVT demonstrated in the bilateral lower extremity. Knee X-Ray 04/13/23 16:15 IMPRESSION: Mild degenerative changes medial and patellofemoral compartment both knees. No visible acute fracture, dislocation or subluxation seen. Knee X-Ray 04/13/23 16:15 IMPRESSION: Mild degenerative changes medial and patellofemoral compartment both knees. No visible acute fracture, dislocation or subluxation seen. Medications Medications Current Medications Acetaminophen (Acetaminophen 325 Mg Tablet) 650 mg PO TID [facility] Last Admin: 04/27/23 15:09 Dose: 650 mg Artificial Tears (Artificial Tears 15 Ml Drops) 1 drop EYE-BOTH Q4H PRN PRN Reason: Dry Eyes Atorvastatin Calcium (Atorvastatin Calcium 20 Mg Tablet) 20 mg PO BEDTIME [facility] Last Admin: 04/26/23 21:35 Dose: 20 mg Bisacodyl (Bisacodyl 10 Mg Supp.Rect) 10 mg [place] DAILY PRN PRN Reason: Constipation Clopidogrel Bisulfate (Clopidogrel Bisulfate 75 Mg Tablet) 75 mg PO DAILY [facility] Last Admin: 04/27/23 08:48 Dose: 75 mg Divalproex Sodium (Divalproex Sodium 250 Mg Tablet.) 250 mg PO DAILY [facility] Last Admin: 04/27/23 08:48 Dose: 250 mg Divalproex Sodium (Divalproex Sodium 500 Mg Tablet.Dr) 500 mg PO BEDTIME [facility] Last Admin: 04/26/23 21:34 Dose: 500 mg Donepezil HCl (Donepezil Hcl 10 Mg Tablet) 10 mg PO BEDTIME [facility] Last Admin: 04/26/23 21:34 Dose: 10 mg Escitalopram Oxalate (Escitalopram Oxalate 10 Mg Tablet) 10 mg PO DAILY [facility] Last Admin: 04/27/23 08:48 Dose: 10 mg Gabapentin (Gabapentin 600 Mg Tablet) 600 mg PO BEDTIME [facility] Last Admin: 04/26/23 21:36 Dose: 600 mg Gabapentin (Gabapentin 600 Mg Tablet) 600 mg PO DAILY@1300 [facility] Last Admin: 04/27/23 13:33 Dose: 600 mg Glucagon (Glucagon Hcl 1 Mg Vial) 1 mg SUBCUT Q20M PRN PRN Reason: BG <70 AND UNRESPONSIVE Glucose (Glucose Gel 15 Gm Gel..Gram.) 15 gm PO Q15M PRN PRN Reason: BG <70 AND RESPONSIVE Last Admin: 01/30/23 03:12 Dose: 15 gm Ibuprofen (Ibuprofen 400 Mg Tablet) 400 mg PO Q6H PRN PRN Reason: Pain, Moderate(Pain Scale 4-6) Last Admin: 04/27/23 12:25 Dose: 400 mg Insulin Glargine (Insulin Glargine,Hum.Rec.Anlog 100 Unit/Ml 10 Ml Vial) 50 unit SUBCUT BEDTIME [facility] Last Admin: 04/26/23 21:32 Dose: 50 unit Insulin Glargine (Insulin Glargine,Hum.Rec.Anlog 100 Unit/Ml 10 Ml Vial) 20 unit SUBCUT DAILY [facility] Last Admin: 04/27/23 08:47 Dose: 20 unit Insulin Human Lispro (Insulin Lispro 100 Unit/Ml 3 Ml Vial) 0 unit SUBCUT TIDAC [facility]; Protocol Last Admin: 04/27/23 11:42 Dose: 7 unit Levothyroxine Sodium (Levothyroxine Sodium 75 Mcg Tablet) 75 mcg PO DAILY@0630 [facility] Last Admin: 04/27/23 06:10 Dose: 75 mcg Lidocaine (Lidocaine 4 % Patch Adh..Patch) 1 patch TRANSDERMA DAILY [facility]; Protocol Last Admin: 04/27/23 08:52 Dose: 1 patch Loperamide HCl (Loperamide Hcl 2 Mg Capsule) 4 mg PO Q4H PRN PRN Reason: Diarrhea Last Admin: 04/22/23 09:16 Dose: 4 mg Magnesium Hydroxide (Milk Of Magnesia 30 Ml Oral.Susp) 30 ml PO DAILY PRN PRN Reason: Constipation Memantine (Memantine Hcl 10 Mg Tablet) 10 mg PO BID [facility] Last Admin: 04/27/23 08:48 Dose: 10 mg Metoprolol Tartrate (Metoprolol Tartrate 25 Mg Tablet) 25 mg PO DAILY [facility]; Protocol Last Admin: 04/27/23 08:48 Dose: 25 mg Pt Own Trulicity ( (Dulaglutide 0.75 Mg)) 0.75 mg SUBCUT Tu@1730 [facility] Last Admin: 04/22/23 19:49 Dose: 0.75 mg Sodium Biphosphate/Sodium Phosphate (Sodium Phosphate,Hickman-Dibasic 133 Ml Enema) 133 ml [place] DAILY PRN PRN Reason: Constipation Trazodone HCl (Trazodone Hcl 50 Mg Tablet) 50 mg PO BEDTIME PRN PRN Reason: Insomnia Last Admin: 04/26/23 23:16 Dose: 50 mg Valsartan (Valsartan 80 Mg Tablet) 80 mg PO BEDTIME [facility]; Protocol Last Admin: 04/26/23 21:33 Dose: 80 mg Allergies Allergies Allergy/AdvReac Type Severity Reaction Status Date / Time aspirin [ASPIRIN] Allergy Unknown UNKNOWN Verified 01/01/23 09:43 Assessment & Plan Assessment & Plan (1) Major neurocognitive disorder: Status: Acute Code(s): F03.90 - Unspecified dementia, unspecified severity, without behavioral disturbance, psychotic disturbance, mood disturbance, and anxiety (2) Mood disorder: Status: Acute Code(s): F39 - Unspecified mood [affective] disorder Plan 04/15 continue tx. reports PRESTON, given one time naproxen- has to limit use of NSAID as pt on plavix. 04/16 continue tx. 04/17 continue tx 04/18 continue tx. 04/19: stable. continue current mgmt. 04/21: stable. continue current mgmt. 04/22 continue tx. 04/23 continue tx. 04/24 continue tx. 04/25 some concern in terms of increase hypersexual behaviors. will restart risperidone 1mg po BID in addition to depakote. 04/26 taken off close obs- seems better on added risperidone less intrussive- 04/27 dx with stephen last pm, doing ok today - not very symptomatic- and less manic no hypersexuality however patient has not been out in [facility] for a few days- Patient educated on: medical condition Informed Consent: understands Reason for continued inpatient stay Substantial Risk for: rapid decompensation Time Spent With Patient Time: Total time managing care of this patient today ____ minutes.
[2023-04-27 18:00] VITALS: BP 135/71; PULSE 79; RESP 18; TEMP 36.8; O2SAT 97
[2023-04-27 20:00] LABS: Glucose, Whole Blood 150 mg/dL (60-115)
[2023-04-27] MEDS: Atorvastatin Calcium 20 MG TABLET PO (20:45)
[2023-04-27] MEDS: Divalproex Sodium 500 MG TABLET.DR PO (20:45)
[2023-04-27] MEDS: Valsartan 80 MG TABLET PO (20:45)
[2023-04-27] MEDS: Donepezil HCl 10 MG TABLET PO (20:45)
[2023-04-27] MEDS: Insulin Glargine,Hum.rec.anlog 100 UNIT/ML 10 ML VIAL 50 UNIT SUBCUT (20:49)
[2023-04-28] MEDS: Ibuprofen 400 MG TABLET PO (00:02)
[2023-04-28] MEDS: traZODone HCL 50 MG TABLET PO (00:42)
[2023-04-28] MEDS: Levothyroxine Sodium 75 MCG TABLET PO (05:46)
[2023-04-28 05:57] LABS: Glucose, Whole Blood 182 mg/dL (60-115)
[2023-04-28 08:00] VITALS: BP 147/66; PULSE 72; RESP 18; TEMP 36.6; O2SAT 98
[2023-04-28] MEDS: Insulin Glargine,Hum.rec.anlog 100 UNIT/ML 10 ML VIAL 20 UNIT SUBCUT (08:17)
[2023-04-28] MEDS: Insulin Lispro 100 UNIT/ML 3 ML VIAL SUBCUT ×3 (08:17→16:58)
[2023-04-28] MEDS: Lidocaine 4 % Patch ADH..PATCH 1 PATCH TRANSDERMA (08:18)
[2023-04-28] MEDS: Divalproex Sodium 250 MG TABLET.DR PO (08:19)
[2023-04-28] MEDS: Clopidogrel Bisulfate 75 MG TABLET PO (08:19)
[2023-04-28] MEDS: Escitalopram Oxalate 10 MG TABLET PO (08:19)
[2023-04-28] MEDS: Memantine HCl 10 MG TABLET PO ×2 (08:19→21:09)
[2023-04-28] MEDS: Acetaminophen 325 MG TABLET 650 MG PO ×3 (08:19→21:10)
[2023-04-28] MEDS: Metoprolol Tartrate 25 MG TABLET PO (08:19)
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
[2023-04-28 11:13] LABS: Glucose, Whole Blood 271 mg/dL (60-115)
[2023-04-28] MEDS: Gabapentin 600 MG TABLET PO ×2 (12:53→21:09)
[2023-04-28 16:30] LABS: Glucose, Whole Blood 168 mg/dL (60-115)
[2023-04-28 18:00] VITALS: BP 179/74; PULSE 83; RESP 16; TEMP 37.1; O2SAT 96
[2023-04-28 20:06] LABS: Glucose, Whole Blood 202 mg/dL (60-115)
[2023-04-28] MEDS: Valsartan 80 MG TABLET PO (21:09)
[2023-04-28] MEDS: Divalproex Sodium 500 MG TABLET.DR PO (21:09)
[2023-04-28] MEDS: Atorvastatin Calcium 20 MG TABLET PO (21:10)
[2023-04-28] MEDS: Donepezil HCl 10 MG TABLET PO (21:11)
[2023-04-28] MEDS: Insulin Glargine,Hum.rec.anlog 100 UNIT/ML 10 ML VIAL 50 UNIT SUBCUT (21:14)
[2023-04-28 22:30] VITALS: BP 137/60; PULSE 95; RESP 16
[2023-04-29] MEDS: Levothyroxine Sodium 75 MCG TABLET PO (05:47)
[2023-04-29 06:17] LABS: Glucose, Whole Blood 98 mg/dL (60-115)
[2023-04-29 08:00] VITALS: BP 151/67; PULSE 98; RESP 18; TEMP 36.8; O2SAT 97
[2023-04-29] MEDS: Insulin Glargine,Hum.rec.anlog 100 UNIT/ML 10 ML VIAL 20 UNIT SUBCUT (08:21)
[2023-04-29] MEDS: Metoprolol Tartrate 25 MG TABLET PO (08:22)
[2023-04-29] MEDS: Escitalopram Oxalate 10 MG TABLET PO (08:22)
[2023-04-29] MEDS: Clopidogrel Bisulfate 75 MG TABLET PO (08:22)
[2023-04-29] MEDS: Lidocaine 4 % Patch ADH..PATCH 1 PATCH TRANSDERMA (08:22)
[2023-04-29] MEDS: Divalproex Sodium 250 MG TABLET.DR PO (08:22)
[2023-04-29] MEDS: Acetaminophen 325 MG TABLET 650 MG PO ×3 (08:22→21:28)
[2023-04-29] MEDS: Memantine HCl 10 MG TABLET PO ×2 (08:22→21:29)
--- NOTE | 2023-04-29 10:09 | P.PNPSI_ITS ---
Subjective Subjective Date of Service: 04/29/23 Reason For Visit: Depression Subjective Notes: Conditional Voluntary Healthcare Proxy: Yes Interim History: Pt reports sleeping and eating well. She was positive for covid over the weekend. Pt taking medications. She is afebrile, 02sat stable >97% on RA, no signs of respiratory distress. No SI/HI. Pt in isolation due to covid. Review of Systems Review of Systems Yes all other systems are reviewed and are negative Mental Status Exam Mental Status Exam Narrative: Appearance: Casual attire, good hygiene, Behavior: cooperative, calm Psychomotor: no agitation noted Speech: clear, normal rate/rhythm/volume, spontaneous TP: linear Mood: not assessed Affect: congruent, bright VH/AH: none expressed Delusions: none expressed Insight/judgment: fair x 2. Memory/cog: alert, oriented x 3. Diagnostics Vital Signs (24Hr): Vital Signs - 24 hr 04/28/23 18:00 04/28/23 22:30 04/29/23 08:00 Temperature 98.7 F 98.2 F Pulse Rate 83 95 98 Respiratory Rate 16 16 18 Blood Pressure 179/74 H 137/60 151/67 H Pulse Oximetry 96 97 Oxygen Delivery Method Room Air Room Air BMI result Body Mass Index 32.5 Labs 01/07/23 17:49 01/07/23 17:49 Labs: Laboratory Results - last 48 hr 04/27/23 04/27/23 04/27/23 11:18 16:08 19:48 POC Glucose 226 H 240 H 150 H 04/28/23 04/28/23 04/28/23 05:49 11:08 16:23 POC Glucose 182 H 271 H 168 H 04/28/23 04/29/23 19:52 05:43 POC Glucose 202 H 98 Imaging Radiology Impressions: ITS Impressions Venous Duplex 01/30/23 16:02 IMPRESSION: No DVT demonstrated in the bilateral lower extremity. Knee X-Ray 04/13/23 16:15 IMPRESSION: Mild degenerative changes medial and patellofemoral compartment both knees. No visible acute fracture, dislocation or subluxation seen. Knee X-Ray 04/13/23 16:15 IMPRESSION: Mild degenerative changes medial and patellofemoral compartment both knees. No visible acute fracture, dislocation or subluxation seen. Medications Medications Current Medications Acetaminophen (Acetaminophen 325 Mg Tablet) 650 mg PO TID [facility] Last Admin: 04/29/23 08:22 Dose: 650 mg Artificial Tears (Artificial Tears 15 Ml Drops) 1 drop EYE-BOTH Q4H PRN PRN Reason: Dry Eyes Atorvastatin Calcium (Atorvastatin Calcium 20 Mg Tablet) 20 mg PO BEDTIME [facility] Last Admin: 04/28/23 21:10 Dose: 20 mg Bisacodyl (Bisacodyl 10 Mg Supp.Rect) 10 mg [place] DAILY PRN PRN Reason: Constipation Clopidogrel Bisulfate (Clopidogrel Bisulfate 75 Mg Tablet) 75 mg PO DAILY [facility] Last Admin: 04/29/23 08:22 Dose: 75 mg Divalproex Sodium (Divalproex Sodium 250 Mg Tablet.) 250 mg PO DAILY [facility] Last Admin: 04/29/23 08:22 Dose: 250 mg Divalproex Sodium (Divalproex Sodium 500 Mg Tablet.) 500 mg PO BEDTIME [facility] Last Admin: 04/28/23 21:09 Dose: 500 mg Donepezil HCl (Donepezil Hcl 10 Mg Tablet) 10 mg PO BEDTIME [facility] Last Admin: 04/28/23 21:11 Dose: 10 mg Escitalopram Oxalate (Escitalopram Oxalate 10 Mg Tablet) 10 mg PO DAILY [facility] Last Admin: 04/29/23 08:22 Dose: 10 mg Gabapentin (Gabapentin 600 Mg Tablet) 600 mg PO BEDTIME [facility] Last Admin: 04/28/23 21:09 Dose: 600 mg Gabapentin (Gabapentin 600 Mg Tablet) 600 mg PO DAILY@1300 [facility] Last Admin: 04/28/23 12:53 Dose: 600 mg Glucagon (Glucagon Hcl 1 Mg Vial) 1 mg SUBCUT Q20M PRN PRN Reason: BG <70 AND UNRESPONSIVE Glucose (Glucose Gel 15 Gm Gel..Gram.) 15 gm PO Q15M PRN PRN Reason: BG <70 AND RESPONSIVE Last Admin: 01/30/23 03:12 Dose: 15 gm Ibuprofen (Ibuprofen 400 Mg Tablet) 400 mg PO Q6H PRN PRN Reason: Pain, Moderate(Pain Scale 4-6) Last Admin: 04/28/23 00:02 Dose: 400 mg Insulin Glargine (Insulin Glargine,Hum.Rec.Anlog 100 Unit/Ml 10 Ml Vial) 50 unit SUBCUT BEDTIME [facility] Last Admin: 04/28/23 21:14 Dose: 50 unit Insulin Glargine (Insulin Glargine,Hum.Rec.Anlog 100 Unit/Ml 10 Ml Vial) 20 unit SUBCUT DAILY [facility] Last Admin: 04/29/23 08:21 Dose: 20 unit Insulin Human Lispro (Insulin Lispro 100 Unit/Ml 3 Ml Vial) 0 unit SUBCUT TIDAC [facility]; Protocol Last Admin: 04/29/23 08:23 Dose: Not Given Levothyroxine Sodium (Levothyroxine Sodium 75 Mcg Tablet) 75 mcg PO DAILY@0630 [facility] Last Admin: 04/29/23 05:47 Dose: 75 mcg Lidocaine (Lidocaine 4 % Patch Adh..Patch) 1 patch TRANSDERMA DAILY [facility]; Protocol Last Admin: 04/29/23 08:22 Dose: 1 patch Loperamide HCl (Loperamide Hcl 2 Mg Capsule) 4 mg PO Q4H PRN PRN Reason: Diarrhea Last Admin: 04/22/23 09:16 Dose: 4 mg Magnesium Hydroxide (Milk Of Magnesia 30 Ml Oral.Susp) 30 ml PO DAILY PRN PRN Reason: Constipation Memantine (Memantine Hcl 10 Mg Tablet) 10 mg PO BID [facility] Last Admin: 04/29/23 08:22 Dose: 10 mg Metoprolol Tartrate (Metoprolol Tartrate 25 Mg Tablet) 25 mg PO DAILY [facility]; Protocol Last Admin: 04/29/23 08:22 Dose: 25 mg Pt Own Trulicity ( (Dulaglutide 0.75 Mg)) 0.75 mg SUBCUT Tu@1730 [facility] Last Admin: 04/22/23 19:49 Dose: 0.75 mg Sodium Biphosphate/Sodium Phosphate (Sodium Phosphate,[place]-Dibasic 133 Ml Enema) 133 ml [place] DAILY PRN PRN Reason: Constipation Trazodone HCl (Trazodone Hcl 50 Mg Tablet) 50 mg PO BEDTIME PRN PRN Reason: Insomnia Last Admin: 04/28/23 00:42 Dose: 50 mg Valsartan (Valsartan 80 Mg Tablet) 80 mg PO BEDTIME [facility]; Protocol Last Admin: 04/28/23 21:09 Dose: 80 mg Allergies Allergies Allergy/AdvReac Type Severity Reaction Status Date / Time aspirin [ASPIRIN] Allergy Unknown UNKNOWN Verified 01/01/23 09:43 Assessment & Plan Assessment & Plan (1) Major neurocognitive disorder: Status: Acute Code(s): F03.90 - Unspecified dementia, unspecified severity, without behavioral disturbance, psychotic disturbance, mood disturbance, and anxiety (2) Mood disorder: Status: Acute Code(s): F39 - Unspecified mood [affective] disorder Plan 04/15 continue tx. reports PRESTON, given one time naproxen- has to limit use of NSAID as pt on plavix. 04/16 continue tx. 04/17 continue tx 04/18 continue tx. 04/19: stable. continue current mgmt. 04/21: stable. continue current mgmt. 04/22 continue tx. 04/23 continue tx. 04/24 continue tx. 04/25 some concern in terms of increase hypersexual behaviors. will restart risperidone 1mg po BID in addition to depakote. 04/26 taken off close obs- seems better on added risperidone less intrussive- 04/27 dx with covid last pm, doing ok today - not very symptomatic- and less manic no hypersexuality however patient has not been [facility] in [facility] a few days- 04/28/23 stabilizing- CTP 04/29 continue tx. Reason for continued inpatient stay Substantial Risk for: inability to function Time Spent With Patient Time: Total time managing care of this patient today ____ minutes.
[2023-04-29 11:28] LABS: Glucose, Whole Blood 311 mg/dL (60-115)
[2023-04-29] MEDS: Insulin Lispro 100 UNIT/ML 3 ML VIAL SUBCUT (11:30)
[2023-04-29] MEDS: Gabapentin 600 MG TABLET PO ×2 (13:00→21:34)
[2023-04-29 16:23] LABS: Glucose, Whole Blood 132 mg/dL (60-115)
[2023-04-29 18:00] VITALS: BP 170/72; PULSE 68; RESP 18; TEMP 35.9; O2SAT 98
[2023-04-29 21:00] LABS: Glucose, Whole Blood 208 mg/dL (60-115)
[2023-04-29] MEDS: Atorvastatin Calcium 20 MG TABLET PO (21:27)
[2023-04-29] MEDS: traZODone HCL 50 MG TABLET PO (21:27)
[2023-04-29] MEDS: Divalproex Sodium 500 MG TABLET.DR PO (21:27)
[2023-04-29] MEDS: Donepezil HCl 10 MG TABLET PO (21:29)
[2023-04-29] MEDS: Valsartan 80 MG TABLET PO (21:29)
[2023-04-29] MEDS: Insulin Glargine,Hum.rec.anlog 100 UNIT/ML 10 ML VIAL 50 UNIT SUBCUT (21:32)
[2023-04-30] MEDS: Levothyroxine Sodium 75 MCG TABLET PO (05:48)
[2023-04-30 06:22] LABS: Glucose, Whole Blood 180 mg/dL (60-115)
[2023-04-30 08:37] VITALS: BP 133/96; PULSE 88; RESP 16; TEMP 36.8; O2SAT 96
[2023-04-30] MEDS: Insulin Lispro 100 UNIT/ML 3 ML VIAL SUBCUT ×3 (08:41→18:45)
[2023-04-30] MEDS: Insulin Glargine,Hum.rec.anlog 100 UNIT/ML 10 ML VIAL 20 UNIT SUBCUT (08:41)
[2023-04-30] MEDS: Metoprolol Tartrate 25 MG TABLET PO (08:42)
[2023-04-30] MEDS: Clopidogrel Bisulfate 75 MG TABLET PO (08:42)
[2023-04-30] MEDS: Escitalopram Oxalate 10 MG TABLET PO (08:43)
[2023-04-30] MEDS: Memantine HCl 10 MG TABLET PO ×2 (08:43→21:50)
[2023-04-30] MEDS: Divalproex Sodium 250 MG TABLET.DR PO (08:43)
--- NOTE | 2023-04-30 09:21 | P.PNPSI_ITS ---
Subjective Subjective Date of Service: 04/30/23 Reason For Visit: Depression Subjective Notes: Conditional Voluntary Interim History: Pt slept through the night. No behavioral concerns. No symptoms of covid, afebrile, no cough. Stable VS o2sat >96% on RA. Pt denies any physical concerns. She attends assigned groups. Diagnostics Vital Signs (24Hr): Vital Signs - 24 hr 04/29/23 18:00 04/30/23 08:37 Temperature 96.7 F L 98.2 F Pulse Rate 68 88 Respiratory Rate 18 16 Blood Pressure 170/72 H 133/96 H Pulse Oximetry 98 96 Oxygen Delivery Method Room Air Room Air BMI result Body Mass Index 32.5 Labs 01/07/23 17:49 01/07/23 17:49 Labs: Laboratory Results - last 48 hr 04/28/23 04/28/23 04/28/23 11:08 16:23 19:52 POC Glucose 271 H 168 H 202 H 04/29/23 04/29/23 04/29/23 05:43 11:24 16:17 POC Glucose 98 311 H 132 H 04/29/23 04/30/23 20:53 05:47 POC Glucose 208 H 180 H Imaging Radiology Impressions: ITS Impressions Venous Duplex 01/30/23 16:02 IMPRESSION: No DVT demonstrated in the bilateral lower extremity. Knee X-Ray 04/13/23 16:15 IMPRESSION: Mild degenerative changes medial and patellofemoral compartment both knees. No visible acute fracture, dislocation or subluxation seen. Knee X-Ray 04/13/23 16:15 IMPRESSION: Mild degenerative changes medial and patellofemoral compartment both knees. No visible acute fracture, dislocation or subluxation seen. Medications Medications Current Medications Acetaminophen (Acetaminophen 325 Mg Tablet) 650 mg PO TID [facility] Last Admin: 04/30/23 08:43 Dose: Not Given Artificial Tears (Artificial Tears 15 Ml Drops) 1 drop EYE-BOTH Q4H PRN PRN Reason: Dry Eyes Atorvastatin Calcium (Atorvastatin Calcium 20 Mg Tablet) 20 mg PO BEDTIME [facility] Last Admin: 04/29/23 21:27 Dose: 20 mg Bisacodyl (Bisacodyl 10 Mg Supp.Rect) 10 mg [place] DAILY PRN PRN Reason: Constipation Clopidogrel Bisulfate (Clopidogrel Bisulfate 75 Mg Tablet) 75 mg PO DAILY [facility] Last Admin: 04/30/23 08:42 Dose: 75 mg Divalproex Sodium (Divalproex Sodium 250 Mg Tablet.) 250 mg PO DAILY [facility] Last Admin: 04/30/23 08:43 Dose: 250 mg Divalproex Sodium (Divalproex Sodium 500 Mg Tablet.) 500 mg PO BEDTIME [facility] Last Admin: 04/29/23 21:27 Dose: 500 mg Donepezil HCl (Donepezil Hcl 10 Mg Tablet) 10 mg PO BEDTIME [facility] Last Admin: 04/29/23 21:29 Dose: 10 mg Escitalopram Oxalate (Escitalopram Oxalate 10 Mg Tablet) 10 mg PO DAILY [facility] Last Admin: 04/30/23 08:43 Dose: 10 mg Gabapentin (Gabapentin 600 Mg Tablet) 600 mg PO BEDTIME [facility] Last Admin: 04/29/23 21:34 Dose: 600 mg Gabapentin (Gabapentin 600 Mg Tablet) 600 mg PO DAILY@1300 [facility] Last Admin: 04/29/23 13:00 Dose: 600 mg Glucagon (Glucagon Hcl 1 Mg Vial) 1 mg SUBCUT Q20M PRN PRN Reason: BG <70 AND UNRESPONSIVE Glucose (Glucose Gel 15 Gm Gel..Gram.) 15 gm PO Q15M PRN PRN Reason: BG <70 AND RESPONSIVE Last Admin: 01/30/23 03:12 Dose: 15 gm Ibuprofen (Ibuprofen 400 Mg Tablet) 400 mg PO Q6H PRN PRN Reason: Pain, Moderate(Pain Scale 4-6) Last Admin: 04/28/23 00:02 Dose: 400 mg Insulin Glargine (Insulin Glargine,Hum.Rec.Anlog 100 Unit/Ml 10 Ml Vial) 50 unit SUBCUT BEDTIME [facility] Last Admin: 04/29/23 21:32 Dose: 50 unit Insulin Glargine (Insulin Glargine,Hum.Rec.Anlog 100 Unit/Ml 10 Ml Vial) 20 unit SUBCUT DAILY [facility] Last Admin: 04/30/23 08:41 Dose: 20 unit Insulin Human Lispro (Insulin Lispro 100 Unit/Ml 3 Ml Vial) 0 unit SUBCUT TIDAC [facility]; Protocol Last Admin: 04/30/23 08:41 Dose: 5 unit Levothyroxine Sodium (Levothyroxine Sodium 75 Mcg Tablet) 75 mcg PO DAILY@0630 [facility] Last Admin: 04/30/23 05:48 Dose: 75 mcg Lidocaine (Lidocaine 4 % Patch Adh..Patch) 1 patch TRANSDERMA DAILY [facility]; Protocol Last Admin: 04/29/23 08:22 Dose: 1 patch Loperamide HCl (Loperamide Hcl 2 Mg Capsule) 4 mg PO Q4H PRN PRN Reason: Diarrhea Last Admin: 04/22/23 09:16 Dose: 4 mg Magnesium Hydroxide (Milk Of Magnesia 30 Ml Oral.Susp) 30 ml PO DAILY PRN PRN Reason: Constipation Memantine (Memantine Hcl 10 Mg Tablet) 10 mg PO BID [facility] Last Admin: 04/30/23 08:43 Dose: 10 mg Metoprolol Tartrate (Metoprolol Tartrate 25 Mg Tablet) 25 mg PO DAILY [facility]; Protocol Last Admin: 04/30/23 08:42 Dose: 25 mg Pt Own Trulicity ( (Dulaglutide 0.75 Mg)) 0.75 mg SUBCUT Tu@1730 [facility] Last Admin: 04/29/23 18:37 Dose: 0.75 mg Sodium Biphosphate/Sodium Phosphate (Sodium Phosphate,[place]-Dibasic 133 Ml Enema) 133 ml [place] DAILY PRN PRN Reason: Constipation Trazodone HCl (Trazodone Hcl 50 Mg Tablet) 50 mg PO BEDTIME PRN PRN Reason: Insomnia Valsartan (Valsartan 80 Mg Tablet) 80 mg PO BEDTIME [facility]; Protocol Allergies Allergies Allergy/AdvReac Type Severity Reaction Status Date / Time Assessment & Plan Assessment & Plan Assessment & Plan (1) Major neurocognitive disorder: Status: Acute Code(s): F03.90 - Unspecified dementia, unspecified severity, without behavioral disturbance, psychotic disturbance, mood disturbance, and anxiety (2) Mood disorder: Status: Acute Code(s): F39 - Unspecified mood [affective] disorder Plan 04/15 continue tx. reports PRESTON, given one time naproxen- has to limit use of NSAID as pt on plavix. 04/16 continue tx. 04/17 continue tx 04/18 continue tx. 04/19: stable. continue current mgmt. 04/21: stable. continue current mgmt. 04/22 continue tx. 04/23 continue tx. 04/24 continue tx. 04/25 some concern in terms of increase hypersexual behaviors. will restart risperidone 1mg po BID in addition to depakote. 04/26 taken off close obs- seems better on added risperidone less intrussive- 04/27 dx with covid last pm, doing ok today - not very symptomatic- and less manic no hypersexuality however patient has not been out in [facility] for a few days- 04/28/23 stabilizing- CTP 04/29 continue tx. 04/30 continue tx. Reason for continued inpatient stay Substantial Risk for: inability to function Time Spent With Patient Time: Total time managing care of this patient today ____ minutes.
[2023-04-30] MEDS: Gabapentin 600 MG TABLET PO ×2 (13:03→21:49)
[2023-04-30 18:00] VITALS: BP 140/67; PULSE 94; RESP 16; TEMP 37.3; O2SAT 96
[2023-04-30] MEDS: Acetaminophen 325 MG TABLET 650 MG PO (21:48)
[2023-04-30] MEDS: Atorvastatin Calcium 20 MG TABLET PO (21:49)
[2023-04-30] MEDS: Donepezil HCl 10 MG TABLET PO (21:49)
[2023-04-30] MEDS: Insulin Glargine,Hum.rec.anlog 100 UNIT/ML 10 ML VIAL 50 UNIT SUBCUT (21:50)
[2023-04-30] MEDS: Valsartan 80 MG TABLET PO (21:50)
[2023-04-30] MEDS: Divalproex Sodium 500 MG TABLET.DR PO (21:50)
[2023-05-01] MEDS: Ibuprofen 400 MG TABLET PO (04:00)
[2023-05-01] MEDS: Levothyroxine Sodium 75 MCG TABLET PO (06:36)
[2023-05-01 07:00] VITALS: BMI 28.5
[2023-05-01 07:55] VITALS: BP 134/65; PULSE 81; RESP 16; TEMP 36.9; O2SAT 92
[2023-05-01] MEDS: Metoprolol Tartrate 25 MG TABLET PO (08:16)
[2023-05-01] MEDS: Lidocaine 4 % Patch ADH..PATCH 1 PATCH TRANSDERMA (08:16)
[2023-05-01] MEDS: Acetaminophen 325 MG TABLET 650 MG PO ×2 (08:17→21:29)
[2023-05-01] MEDS: Memantine HCl 10 MG TABLET PO ×2 (08:17→21:28)
[2023-05-01] MEDS: Clopidogrel Bisulfate 75 MG TABLET PO (08:17)
[2023-05-01] MEDS: Divalproex Sodium 250 MG TABLET.DR PO (08:17)
[2023-05-01] MEDS: Insulin Lispro 100 UNIT/ML 3 ML VIAL SUBCUT ×2 (08:18→17:11)
[2023-05-01] MEDS: Escitalopram Oxalate 10 MG TABLET PO (08:18)
[2023-05-01] MEDS: Insulin Glargine,Hum.rec.anlog 100 UNIT/ML 10 ML VIAL 20 UNIT SUBCUT (08:19)
--- NOTE | 2023-05-01 08:27 | HO.PSYCHPN ---
Subjective Subjective Date of Service: 05/01/23 Reason For Visit: Depression Subjective Notes: Conditional Voluntary Interim History: Pt slept through the night. No behavioral concerns. Pt has been visible on the unit, social with select peers. She attends assigned groups. Presents with bright affect, non labile. No SI/HI. No VH/AH. Taking medications as prescribed. asymptomatic from covid. Medication Compliance: Yes Side effects from medications: No Review of Systems Review of Systems Yes all other systems are reviewed and are negative Mental Status Exam Mental Status Exam Narrative: Appearance: Casual attire, good hygiene, Behavior: cooperative, calm Psychomotor: no agitation noted Speech: clear, normal rate/rhythm/volume, spontaneous TP: linear Mood: not assessed Affect: congruent, bright VH/AH: none expressed Delusions: none expressed Insight/judgment: fair x 2. Memory/cog: alert, oriented x 3. Diagnostics Vital Signs (24Hr): Vital Signs - 24 hr 04/30/23 08:37 04/30/23 18:00 Temperature 98.2 F 99.1 F Pulse Rate 88 94 Respiratory Rate 16 16 Blood Pressure 133/96 H 140/67 H Pulse Oximetry 96 96 Oxygen Delivery Method Room Air Room Air BMI result Body Mass Index 32.5 Labs 01/07/23 17:49 01/07/23 17:49 Labs: Laboratory Results - last 48 hr 04/29/23 04/29/23 04/29/23 11:24 16:17 20:53 POC Glucose 311 H 132 H 208 H 04/30/23 04/30/23 04/30/23 05:47 11:33 16:13 POC Glucose 180 H 236 H 151 H 04/30/23 05/01/23 19:56 06:25 POC Glucose 271 H 195 H Imaging Radiology Impressions: ITS Impressions Venous Duplex 01/30/23 16:02 IMPRESSION: No DVT demonstrated in the bilateral lower extremity. Knee X-Ray 04/13/23 16:15 IMPRESSION: Mild degenerative changes medial and patellofemoral compartment both knees. No visible acute fracture, dislocation or subluxation seen. Knee X-Ray 04/13/23 16:15 IMPRESSION: Mild degenerative changes medial and patellofemoral compartment both knees. No visible acute fracture, dislocation or subluxation seen. Medications Medications Current Medications Acetaminophen (Acetaminophen 325 Mg Tablet) 650 mg PO TID JODEE Last Admin: 05/01/23 08:17 Dose: 650 mg Artificial Tears (Artificial Tears 15 Ml Drops) 1 drop EYE-BOTH Q4H PRN PRN Reason: Dry Eyes Atorvastatin Calcium (Atorvastatin Calcium 20 Mg Tablet) 20 mg PO BEDTIME [facility] Last Admin: 04/30/23 21:49 Dose: 20 mg Bisacodyl (Bisacodyl 10 Mg Supp.Rect) 10 mg [place] DAILY PRN PRN Reason: Constipation Clopidogrel Bisulfate (Clopidogrel Bisulfate 75 Mg Tablet) 75 mg PO DAILY [facility] Last Admin: 05/01/23 08:17 Dose: 75 mg Divalproex Sodium (Divalproex Sodium 250 Mg Tablet.Dr) 250 mg PO DAILY [facility] Last Admin: 05/01/23 08:17 Dose: 250 mg Divalproex Sodium (Divalproex Sodium 500 Mg Tablet.Dr) 500 mg PO BEDTIME [facility] Last Admin: 04/30/23 21:50 Dose: 500 mg Donepezil HCl (Donepezil Hcl 10 Mg Tablet) 10 mg PO BEDTIME [facility] Last Admin: 04/30/23 21:49 Dose: 10 mg Escitalopram Oxalate (Escitalopram Oxalate 10 Mg Tablet) 10 mg PO DAILY [facility] Last Admin: 05/01/23 08:18 Dose: 10 mg Gabapentin (Gabapentin 600 Mg Tablet) 600 mg PO BEDTIME [facility] Last Admin: 04/30/23 21:49 Dose: 600 mg Gabapentin (Gabapentin 600 Mg Tablet) 600 mg PO DAILY@1300 [facility] Last Admin: 04/30/23 13:03 Dose: 600 mg Glucagon (Glucagon Hcl 1 Mg Vial) 1 mg SUBCUT Q20M PRN PRN Reason: BG <70 AND UNRESPONSIVE Glucose (Glucose Gel 15 Gm Gel..Gram.) 15 gm PO Q15M PRN PRN Reason: BG <70 AND RESPONSIVE Last Admin: 01/30/23 03:12 Dose: 15 gm Ibuprofen (Ibuprofen 400 Mg Tablet) 400 mg PO Q6H PRN PRN Reason: Pain, Moderate(Pain Scale 4-6) Last Admin: 05/01/23 04:00 Dose: 400 mg Insulin Glargine (Insulin Glargine,Hum.Rec.Anlog 100 Unit/Ml 10 Ml Vial) 50 unit SUBCUT BEDTIME [facility] Last Admin: 04/30/23 21:50 Dose: 50 unit Insulin Glargine (Insulin Glargine,Hum.Rec.Anlog 100 Unit/Ml 10 Ml Vial) 20 unit SUBCUT DAILY [facility] Last Admin: 05/01/23 08:19 Dose: 20 unit Insulin Human Lispro (Insulin Lispro 100 Unit/Ml 3 Ml Vial) 0 unit SUBCUT TIDAC [facility]; Protocol Last Admin: 05/01/23 08:18 Dose: 5 unit Levothyroxine Sodium (Levothyroxine Sodium 75 Mcg Tablet) 75 mcg PO DAILY@0630 [facility] Last Admin: 05/01/23 06:36 Dose: 75 mcg Lidocaine (Lidocaine 4 % Patch Adh..Patch) 1 patch TRANSDERMA DAILY [facility]; Protocol Last Admin: 05/01/23 08:16 Dose: 1 patch Loperamide HCl (Loperamide Hcl 2 Mg Capsule) 4 mg PO Q4H PRN PRN Reason: Diarrhea Last Admin: 04/22/23 09:16 Dose: 4 mg Magnesium Hydroxide (Milk Of Magnesia 30 Ml Oral.Susp) 30 ml PO DAILY PRN PRN Reason: Constipation Memantine (Memantine Hcl 10 Mg Tablet) 10 mg PO BID [facility] Last Admin: 05/01/23 08:17 Dose: 10 mg Metoprolol Tartrate (Metoprolol Tartrate 25 Mg Tablet) 25 mg PO DAILY [facility]; Protocol Last Admin: 05/01/23 08:16 Dose: 25 mg Pt Own Trulicity ( (Dulaglutide 0.75 Mg)) 0.75 mg SUBCUT Tu@1730 [facility] Last Admin: 04/29/23 18:37 Dose: 0.75 mg Sodium Biphosphate/Sodium Phosphate (Sodium Phosphate,[place]-Dibasic 133 Ml Enema) 133 ml UT DAILY PRN PRN Reason: Constipation Valsartan (Valsartan 80 Mg Tablet) 80 mg PO BEDTIME [facility]; Protocol Last Admin: 04/30/23 21:50 Dose: 80 mg Allergies Allergies Allergy/AdvReac Type Severity Reaction Status Date / Time aspirin [ASPIRIN] Allergy Unknown UNKNOWN Verified 01/01/23 09:43 Assessment & Plan Assessment & Plan (1) Major neurocognitive disorder: Status: Acute Code(s): F03.90 - Unspecified dementia, unspecified severity, without behavioral disturbance, psychotic disturbance, mood disturbance, and anxiety (2) Mood disorder: Status: Acute Code(s): F39 - Unspecified mood [affective] disorder Plan 04/15 continue tx. reports PRESTON, given one time naproxen- has to limit use of NSAID as pt on plavix. 04/16 continue tx. 04/17 continue tx 04/18 continue tx. 04/19: stable. continue current mgmt. 04/21: stable. continue current mgmt. 04/22 continue tx. 04/23 continue tx. 04/24 continue tx. 04/25 some concern in terms of increase hypersexual behaviors. will restart risperidone 1mg po BID in addition to depakote. 04/26 taken off close obs- seems better on added risperidone less intrussive- 04/27 dx with stephen last pm, doing ok today - not very symptomatic- and less manic no hypersexuality however patient has not been out in [facility] for a few days- 04/28/23 stabilizing- CTP 04/29 continue tx. 04/30 continue tx. 05/01 continue tx. Reason for continued inpatient stay Substantial Risk for: inability to function Time Spent With Patient Time: Total time managing care of this patient today ____ minutes.
[2023-05-01] MEDS: Gabapentin 600 MG TABLET PO ×2 (15:37→21:30)
[2023-05-01 18:00] VITALS: BP 140/65; PULSE 80; RESP 16; TEMP 36.5; O2SAT 95
[2023-05-01] MEDS: Valsartan 80 MG TABLET PO (21:29)
[2023-05-01] MEDS: Donepezil HCl 10 MG TABLET PO (21:30)
[2023-05-01] MEDS: Divalproex Sodium 500 MG TABLET.DR PO (21:30)
[2023-05-01] MEDS: Insulin Glargine,Hum.rec.anlog 100 UNIT/ML 10 ML VIAL 50 UNIT SUBCUT (21:31)
[2023-05-02] MEDS: Ibuprofen 400 MG TABLET PO (02:13)
[2023-05-02] MEDS: Levothyroxine Sodium 75 MCG TABLET PO (05:49)
[2023-05-02 08:05] VITALS: BP 146/68; PULSE 73; RESP 18; TEMP 36.6; O2SAT 96
[2023-05-02] MEDS: Divalproex Sodium 250 MG TABLET.DR PO (08:33)
[2023-05-02] MEDS: Memantine HCl 10 MG TABLET PO ×2 (08:33→21:21)
[2023-05-02] MEDS: Escitalopram Oxalate 10 MG TABLET PO (08:33)
[2023-05-02] MEDS: Acetaminophen 325 MG TABLET 650 MG PO ×3 (08:33→21:19)
[2023-05-02] MEDS: Insulin Glargine,Hum.rec.anlog 100 UNIT/ML 10 ML VIAL 20 UNIT SUBCUT (08:33)
[2023-05-02] MEDS: Clopidogrel Bisulfate 75 MG TABLET PO (08:33)
[2023-05-02] MEDS: Metoprolol Tartrate 25 MG TABLET PO (08:33)
[2023-05-02] MEDS: Lidocaine 4 % Patch ADH..PATCH 1 PATCH TRANSDERMA (08:39)
--- NOTE | 2023-05-02 08:49 | HO.PSYCHPN ---
Subjective Subjective Date of Service: 05/02/23 Reason For Visit: Depression Subjective Notes: Conditional Voluntary Interim History: Pt slept through the night. No behavioral concerns. Pt continues to bevisible on the unit, social with select peers. She attends assigned groups. Presents with bright affect, non labile. No SI/HI. No VH/AH. Taking medications as prescribed. asymptomatic from covid. Review of Systems Review of Systems Yes all other systems are reviewed and are negative Mental Status Exam Mental Status Exam Narrative: Appearance: Casual attire, good hygiene, Behavior: cooperative, calm Psychomotor: no agitation noted Speech: clear, normal rate/rhythm/volume, spontaneous TP: linear Mood: good Affect: congruent, bright VH/AH: none expressed Delusions: none expressed Insight/judgment: fair x 2. Memory/cog: alert, oriented x 3. Diagnostics Vital Signs (24Hr): Vital Signs - 24 hr 05/01/23 18:00 Temperature 97.7 F Pulse Rate 80 Respiratory Rate 16 Blood Pressure 140/65 H Pulse Oximetry 95 Oxygen Delivery Method Room Air BMI result Body Mass Index 28.5 Labs 01/07/23 17:49 01/07/23 17:49 Labs: Laboratory Results - last 48 hr 04/30/23 04/30/23 04/30/23 11:33 16:13 19:56 POC Glucose 236 H 151 H 271 H 05/01/23 05/01/23 05/01/23 06:25 11:25 16:14 POC Glucose 195 H 234 H 236 H 05/01/23 05/02/23 19:56 05:44 POC Glucose 202 H 88 Imaging Radiology Impressions: ITS Impressions Venous Duplex 01/30/23 16:02 IMPRESSION: No DVT demonstrated in the bilateral lower extremity. Knee X-Ray 04/13/23 16:15 IMPRESSION: Mild degenerative changes medial and patellofemoral compartment both knees. No visible acute fracture, dislocation or subluxation seen. Knee X-Ray 04/13/23 16:15 IMPRESSION: Mild degenerative changes medial and patellofemoral compartment both knees. No visible acute fracture, dislocation or subluxation seen. Medications Medications Current Medications Acetaminophen (Acetaminophen 325 Mg Tablet) 650 mg PO TID JODEE Last Admin: 05/02/23 08:33 Dose: 650 mg Artificial Tears (Artificial Tears 15 Ml Drops) 1 drop EYE-BOTH Q4H PRN PRN Reason: Dry Eyes Atorvastatin Calcium (Atorvastatin Calcium 20 Mg Tablet) 20 mg PO BEDTIME [facility] Last Admin: 05/01/23 21:29 Dose: 20 mg Bisacodyl (Bisacodyl 10 Mg Supp.Rect) 10 mg [place] DAILY PRN PRN Reason: Constipation Clopidogrel Bisulfate (Clopidogrel Bisulfate 75 Mg Tablet) 75 mg PO DAILY [facility] Last Admin: 05/02/23 08:33 Dose: 75 mg Divalproex Sodium (Divalproex Sodium 250 Mg Tablet.) 250 mg PO DAILY [facility] Last Admin: 05/02/23 08:33 Dose: 250 mg Divalproex Sodium (Divalproex Sodium 500 Mg Tablet.) 500 mg PO BEDTIME [facility] Last Admin: 05/01/23 21:30 Dose: 500 mg Donepezil HCl (Donepezil Hcl 10 Mg Tablet) 10 mg PO BEDTIME [facility] Last Admin: 05/01/23 21:30 Dose: 10 mg Escitalopram Oxalate (Escitalopram Oxalate 10 Mg Tablet) 10 mg PO DAILY [facility] Last Admin: 05/02/23 08:33 Dose: 10 mg Gabapentin (Gabapentin 600 Mg Tablet) 600 mg PO BEDTIME [facility] Last Admin: 05/01/23 21:30 Dose: 600 mg Gabapentin (Gabapentin 600 Mg Tablet) 600 mg PO DAILY@1300 [facility] Last Admin: 05/01/23 15:37 Dose: 600 mg Glucagon (Glucagon Hcl 1 Mg Vial) 1 mg SUBCUT Q20M PRN PRN Reason: BG <70 AND UNRESPONSIVE Glucose (Glucose Gel 15 Gm Gel..Gram.) 15 gm PO Q15M PRN PRN Reason: BG <70 AND RESPONSIVE Last Admin: 01/30/23 03:12 Dose: 15 gm Ibuprofen (Ibuprofen 400 Mg Tablet) 400 mg PO Q6H PRN PRN Reason: Pain, Moderate(Pain Scale 4-6) Last Admin: 05/02/23 02:13 Dose: 400 mg Insulin Glargine (Insulin Glargine,Hum.Rec.Anlog 100 Unit/Ml 10 Ml Vial) 50 unit SUBCUT BEDTIME [facility] Last Admin: 05/01/23 21:31 Dose: 50 unit Insulin Glargine (Insulin Glargine,Hum.Rec.Anlog 100 Unit/Ml 10 Ml Vial) 20 unit SUBCUT DAILY [facility] Last Admin: 05/02/23 08:33 Dose: 20 unit Insulin Human Lispro (Insulin Lispro 100 Unit/Ml 3 Ml Vial) 0 unit SUBCUT TIDAC [facility]; Protocol Last Admin: 05/02/23 08:41 Dose: Not Given Levothyroxine Sodium (Levothyroxine Sodium 75 Mcg Tablet) 75 mcg PO DAILY@0630 [facility] Last Admin: 05/02/23 05:49 Dose: 75 mcg Lidocaine (Lidocaine 4 % Patch Adh..Patch) 1 patch TRANSDERMA DAILY [facility]; Protocol Last Admin: 05/02/23 08:39 Dose: 1 patch Loperamide HCl (Loperamide Hcl 2 Mg Capsule) 4 mg PO Q4H PRN PRN Reason: Diarrhea Last Admin: 04/22/23 09:16 Dose: 4 mg Magnesium Hydroxide (Milk Of Magnesia 30 Ml Oral.Susp) 30 ml PO DAILY PRN PRN Reason: Constipation Memantine (Memantine Hcl 10 Mg Tablet) 10 mg PO BID [facility] Last Admin: 05/02/23 08:33 Dose: 10 mg Metoprolol Tartrate (Metoprolol Tartrate 25 Mg Tablet) 25 mg PO DAILY [facility]; Protocol Last Admin: 05/02/23 08:33 Dose: 25 mg Pt Own Trulicity ( (Dulaglutide 0.75 Mg)) 0.75 mg SUBCUT Tu@1730 [facility] Last Admin: 04/29/23 18:37 Dose: 0.75 mg Sodium Biphosphate/Sodium Phosphate (Sodium Phosphate,[place]-Dibasic 133 Ml Enema) 133 ml [place] DAILY PRN PRN Reason: Constipation Valsartan (Valsartan 80 Mg Tablet) 80 mg PO BEDTIME [facility]; Protocol Last Admin: 05/01/23 21:29 Dose: 80 mg Allergies Allergies Allergy/AdvReac Type Severity Reaction Status Date / Time aspirin [ASPIRIN] Allergy Unknown UNKNOWN Verified 01/01/23 09:43 Assessment & Plan Assessment & Plan (1) Major neurocognitive disorder: Status: Acute Code(s): F03.90 - Unspecified dementia, unspecified severity, without behavioral disturbance, psychotic disturbance, mood disturbance, and anxiety (2) Mood disorder: Status: Acute Code(s): F39 - Unspecified mood [affective] disorder Plan 04/15 continue tx. reports PRESTON, given one time naproxen- has to limit use of NSAID as pt on plavix. 04/16 continue tx. 04/17 continue tx 04/18 continue tx. 04/19: stable. continue current mgmt. 04/21: stable. continue current mgmt. 04/22 continue tx. 04/23 continue tx. 04/24 continue tx. 04/25 some concern in terms of increase hypersexual behaviors. will restart risperidone 1mg po BID in addition to depakote. 04/26 taken off close obs- seems better on added risperidone less intrussive- 04/27 dx with stephen last pm, doing ok today - not very symptomatic- and less manic no hypersexuality however patient has not been out in [facility] for a few days- 04/28/23 stabilizing- CTP 04/29 continue tx. 04/30 continue tx. 05/01 continue tx. 05/02 continue tx. Reason for continued inpatient stay Substantial Risk for: inability to function Time Spent With Patient Time: Total time managing care of this patient today ____ minutes.
[2023-05-02] MEDS: Insulin Lispro 100 UNIT/ML 3 ML VIAL SUBCUT ×2 (11:27→16:32)
[2023-05-02] MEDS: Gabapentin 600 MG TABLET PO ×2 (12:21→21:20)
[2023-05-02 18:00] VITALS: BP 160/64; PULSE 75; RESP 16; TEMP 36.6; O2SAT 95
[2023-05-02] MEDS: Valsartan 80 MG TABLET PO (21:20)
[2023-05-02] MEDS: Divalproex Sodium 500 MG TABLET.DR PO (21:21)
[2023-05-02] MEDS: Donepezil HCl 10 MG TABLET PO (21:21)
[2023-05-02] MEDS: Insulin Glargine,Hum.rec.anlog 100 UNIT/ML 10 ML VIAL 50 UNIT SUBCUT (21:26)
[2023-05-03] MEDS: Ibuprofen 400 MG TABLET PO (01:17)
[2023-05-03] MEDS: Levothyroxine Sodium 75 MCG TABLET PO (05:40)
[2023-05-03 08:15] VITALS: BP 162/77; PULSE 82; RESP 18; TEMP 36.7; O2SAT 98
[2023-05-03] MEDS: Clopidogrel Bisulfate 75 MG TABLET PO (08:31)
[2023-05-03] MEDS: Memantine HCl 10 MG TABLET PO ×2 (08:31→20:39)
[2023-05-03] MEDS: Acetaminophen 325 MG TABLET 650 MG PO ×3 (08:31→20:41)
[2023-05-03] MEDS: Metoprolol Tartrate 25 MG TABLET PO (08:31)
[2023-05-03] MEDS: Escitalopram Oxalate 10 MG TABLET PO (08:32)
[2023-05-03] MEDS: Insulin Glargine,Hum.rec.anlog 100 UNIT/ML 10 ML VIAL 20 UNIT SUBCUT (08:32)
[2023-05-03] MEDS: Lidocaine 4 % Patch ADH..PATCH 1 PATCH TRANSDERMA (08:33)
[2023-05-03] MEDS: Divalproex Sodium 250 MG TABLET.DR PO (08:34)
--- NOTE | 2023-05-03 12:33 | HO.PSYCHPN ---
Subjective Subjective Date of Service: 05/03/23 Reason For Visit: Depression Subjective Notes: Conditional Voluntary Medical Problems Affecting Mental Status: No Interim History: met with patient. Discussed with Nursing. Chart reviewed. Overall doing much better. Remained COVID positive. Has been doing well now back on Depakote. Patient reports overall feeling okay. Has been interacting well with her roommate. Denied any concerns and overall minimal engagement. Is having some difficulty sleeping. Medication Compliance: Yes Side effects from medications: No Attending Groups: No Review of Systems Acute medical concerns: No Review of Systems Review of Systems Unremarkable -recovering from COVID Mental Status Exam Mental Status Exam Narrative: Appearance: Casual attire, good hygiene, Behavior: cooperative, calm Psychomotor: no agitation noted Speech: clear, normal rate/rhythm/volume, spontaneous TP: linear Mood: good Affect: congruent, bright VH/AH: none expressed Delusions: none expressed Insight/judgment: fair x 2. Memory/cog: alert, oriented x 3. Diagnostics Vital Signs (24Hr): Vital Signs - 24 hr 05/02/23 18:00 05/03/23 08:15 Temperature 98 F 98.1 F Pulse Rate 75 82 Respiratory Rate 16 18 Blood Pressure 160/64 H 162/77 H Pulse Oximetry 95 98 Oxygen Delivery Method Room Air Room Air BMI result Body Mass Index 28.5 Labs 01/07/23 17:49 01/07/23 17:49 Labs: Laboratory Results - last 48 hr 05/01/23 05/01/23 05/02/23 16:14 19:56 05:44 POC Glucose 236 H 202 H 88 05/02/23 05/02/23 05/02/23 11:16 16:20 21:11 POC Glucose 171 H 201 H 243 H 05/03/23 05/03/23 06:00 11:21 POC Glucose 131 H 280 H Imaging Radiology Impressions: ITS Impressions Venous Duplex 01/30/23 16:02 IMPRESSION: No DVT demonstrated in the bilateral lower extremity. Knee X-Ray 04/13/23 16:15 IMPRESSION: Mild degenerative changes medial and patellofemoral compartment both knees. No visible acute fracture, dislocation or subluxation seen. Knee X-Ray 04/13/23 16:15 IMPRESSION: Mild degenerative changes medial and patellofemoral compartment both knees. No visible acute fracture, dislocation or subluxation seen. Medications Medications Current Medications Acetaminophen (Acetaminophen 325 Mg Tablet) 650 mg PO TID [facility] Last Admin: 05/03/23 08:31 Dose: 650 mg Artificial Tears (Artificial Tears 15 Ml Drops) 1 drop EYE-BOTH Q4H PRN PRN Reason: Dry Eyes Atorvastatin Calcium (Atorvastatin Calcium 20 Mg Tablet) 20 mg PO BEDTIME [facility] Last Admin: 05/02/23 21:21 Dose: 20 mg Bisacodyl (Bisacodyl 10 Mg Supp.Rect) 10 mg [place] DAILY PRN PRN Reason: Constipation Clopidogrel Bisulfate (Clopidogrel Bisulfate 75 Mg Tablet) 75 mg PO DAILY [facility] Last Admin: 05/03/23 08:31 Dose: 75 mg Dextrose (Dextrose 50 % 25 Gm/50 Ml Syringe) 25 gm IVPUSH Q15M PRN; Protocol PRN Reason: per Hypoglycemia Standing Ord. Divalproex Sodium (Divalproex Sodium 250 Mg Tablet.) 250 mg PO DAILY [facility] Last Admin: 05/03/23 08:34 Dose: 250 mg Divalproex Sodium (Divalproex Sodium 500 Mg Tablet.) 500 mg PO BEDTIME [facility] Last Admin: 05/02/23 21:21 Dose: 500 mg Donepezil HCl (Donepezil Hcl 10 Mg Tablet) 10 mg PO BEDTIME [facility] Last Admin: 05/02/23 21:21 Dose: 10 mg Escitalopram Oxalate (Escitalopram Oxalate 10 Mg Tablet) 10 mg PO DAILY [facility] Last Admin: 05/03/23 08:32 Dose: 10 mg Gabapentin (Gabapentin 600 Mg Tablet) 600 mg PO BEDTIME [facility] Last Admin: 05/02/23 21:20 Dose: 600 mg Gabapentin (Gabapentin 600 Mg Tablet) 600 mg PO DAILY@1300 [facility] Last Admin: 05/02/23 12:21 Dose: 600 mg Glucagon (Glucagon Hcl 1 Mg Vial) 1 mg SUBCUT Q20M PRN PRN Reason: BG <70 AND UNRESPONSIVE Glucose (Glucose Gel 15 Gm Gel..Gram.) 15 gm PO Q15M PRN PRN Reason: BG <70 AND RESPONSIVE Last Admin: 01/30/23 03:12 Dose: 15 gm Glucose (Glucose Gel 15 Gm Gel..Gram.) 15 gm PO Q15M PRN; Protocol PRN Reason: per Hypoglycemia Standing Ord. Ibuprofen (Ibuprofen 400 Mg Tablet) 400 mg PO Q6H PRN PRN Reason: Pain, Moderate(Pain Scale 4-6) Last Admin: 05/03/23 01:17 Dose: 400 mg Insulin Glargine (Insulin Glargine,Hum.Rec.Anlog 100 Unit/Ml 10 Ml Vial) 50 unit SUBCUT BEDTIME [facility] Last Admin: 05/02/23 21:26 Dose: 50 unit Insulin Glargine (Insulin Glargine,Hum.Rec.Anlog 100 Unit/Ml 10 Ml Vial) 20 unit SUBCUT DAILY [facility] Last Admin: 05/03/23 08:32 Dose: 20 unit Insulin Human Lispro (Insulin Lispro 100 Unit/Ml 3 Ml Vial) 0 unit SUBCUT TIDAC [facility]; Protocol Last Admin: 05/03/23 11:44 Dose: 9 unit Insulin Human Lispro (Insulin Lispro 100 Unit/Ml 3 Ml Vial) 0 unit SUBCUT QIDACHS [facility]; Protocol Stop: 05/04/23 11:36 Levothyroxine Sodium (Levothyroxine Sodium 75 Mcg Tablet) 75 mcg PO DAILY@0630 [facility] Last Admin: 05/03/23 05:40 Dose: 75 mcg Lidocaine (Lidocaine 4 % Patch Adh..Patch) 1 patch TRANSDERMA DAILY [facility]; Protocol Last Admin: 05/03/23 08:33 Dose: 1 patch Loperamide HCl (Loperamide Hcl 2 Mg Capsule) 4 mg PO Q4H PRN PRN Reason: Diarrhea Last Admin: 04/22/23 09:16 Dose: 4 mg Magnesium Hydroxide (Milk Of Magnesia 30 Ml Oral.Susp) 30 ml PO DAILY PRN PRN Reason: Constipation Memantine (Memantine Hcl 10 Mg Tablet) 10 mg PO BID [facility] Last Admin: 05/03/23 08:31 Dose: 10 mg Metoprolol Tartrate (Metoprolol Tartrate 25 Mg Tablet) 25 mg PO DAILY [facility]; Protocol Last Admin: 05/03/23 08:31 Dose: 25 mg Pt Own Trulicity ( (Dulaglutide 0.75 Mg)) 0.75 mg SUBCUT Tu@1730 [facility] Last Admin: 04/29/23 18:37 Dose: 0.75 mg Sodium Biphosphate/Sodium Phosphate (Sodium Phosphate,[place]-Dibasic 133 Ml Enema) 133 ml [place] DAILY PRN PRN Reason: Constipation Valsartan (Valsartan 80 Mg Tablet) 80 mg PO BEDTIME [facility]; Protocol Last Admin: 05/02/23 21:20 Dose: 80 mg Allergies Allergies Allergy/AdvReac Type Severity Reaction Status Date / Time aspirin [ASPIRIN] Allergy Unknown UNKNOWN Verified 01/01/23 09:43 Assessment & Plan Assessment & Plan (1) Major neurocognitive disorder: Status: Acute Code(s): F03.90 - Unspecified dementia, unspecified severity, without behavioral disturbance, psychotic disturbance, mood disturbance, and anxiety (2) Mood disorder: Status: Acute Code(s): F39 - Unspecified mood [affective] disorder Plan 04/15 continue tx. reports PRE[facility]ON, given one time naproxen- has to limit use of NSAID as pt on plavix. 04/16 continue tx. 04/17 continue tx 04/18 continue tx. 04/19: stable. continue current mgmt. 04/21: stable. continue current mgmt. 04/22 continue tx. 04/23 continue tx. 04/24 continue tx. 04/25 some concern in terms of increase hypersexual behaviors. will restart risperidone 1mg po BID in addition to depakote. 04/26 taken off close obs- seems better on added risperidone less intrussive- 04/27 dx with stephen last pm, doing ok today - not very symptomatic- and less manic no hypersexuality however patient has not been out in [facility] for a few days- 04/28/23 stabilizing- CTP 04/29 continue tx. 04/30 continue tx. 05/01 continue tx. 05/02 continue tx. 05/03/2023: Will increase nighttime gabapentin to 800 mg for sleep. Reason for continued inpatient stay Substantial Risk for: inability to function and rapid decompensation Time Spent With Patient Time: Total time managing care of this patient today ____ minutes.
[2023-05-03] MEDS: Gabapentin 600 MG TABLET PO (13:10)
[2023-05-03 18:00] VITALS: BP 138/64; PULSE 73; RESP 16; TEMP 36.6; O2SAT 99
[2023-05-03] MEDS: Donepezil HCl 10 MG TABLET PO (20:42)
[2023-05-03] MEDS: Divalproex Sodium 500 MG TABLET.DR PO (20:42)
[2023-05-03] MEDS: Valsartan 80 MG TABLET PO (20:43)
[2023-05-03] MEDS: Insulin Glargine,Hum.rec.anlog 100 UNIT/ML 10 ML VIAL 50 UNIT SUBCUT (20:47)
[2023-05-04] MEDS: Levothyroxine Sodium 75 MCG TABLET PO (06:13)
[2023-05-04 08:05] VITALS: BP 158/70; PULSE 76; RESP 18; TEMP 36.6; O2SAT 96
[2023-05-04] MEDS: Insulin Glargine,Hum.rec.anlog 100 UNIT/ML 10 ML VIAL 20 UNIT SUBCUT (08:48)
[2023-05-04] MEDS: Clopidogrel Bisulfate 75 MG TABLET PO (08:48)
[2023-05-04] MEDS: Escitalopram Oxalate 10 MG TABLET PO (08:49)
[2023-05-04] MEDS: Memantine HCl 10 MG TABLET PO ×2 (08:49→21:29)
[2023-05-04] MEDS: Divalproex Sodium 250 MG TABLET.DR PO (08:49)
[2023-05-04] MEDS: Metoprolol Tartrate 25 MG TABLET PO (08:49)
[2023-05-04] MEDS: Lidocaine 4 % Patch ADH..PATCH 1 PATCH TRANSDERMA (08:51)
--- NOTE | 2023-05-04 10:30 | HO.PSYCHPN ---
Subjective Subjective Date of Service: 05/04/23 Reason For Visit: Depression Interim History: met with patient. Discussed with Nursing. Chart reviewed. Overall doing much better. Patient reports overall feeling okay. Has been interacting well with her roommate. Outside of room more today. Sleep still troubling Medication Compliance: Yes Side effects from medications: No Attending Groups: Intermittent Review of Systems Acute medical concerns: No Review of Systems Review of Systems Unremarkable -recovering from COVID Mental Status Exam Mental Status Exam Narrative: Appearance: Casual attire, good hygiene, Behavior: cooperative, calm Psychomotor: no agitation noted Speech: clear, normal rate/rhythm/volume, spontaneous TP: linear Mood: good Affect: congruent, bright VH/AH: none expressed Delusions: none expressed Insight/judgment: fair x 2. Memory/cog: alert, oriented x 3. Diagnostics Vital Signs (24Hr): Vital Signs - 24 hr 05/03/23 18:00 Temperature 97.9 F Pulse Rate 73 Respiratory Rate 16 Blood Pressure 138/64 Pulse Oximetry 99 Oxygen Delivery Method Room Air BMI result Body Mass Index 28.5 Labs 01/07/23 17:49 01/07/23 17:49 Labs: Laboratory Results - last 48 hr 05/02/23 05/02/23 05/02/23 11:16 16:20 21:11 POC Glucose 171 H 201 H 243 H 05/03/23 05/03/23 05/03/23 06:00 11:21 16:13 POC Glucose 131 H 280 H 142 H 05/03/23 05/04/23 20:05 06:03 POC Glucose 157 H 93 Imaging Radiology Impressions: ITS Impressions Venous Duplex 01/30/23 16:02 IMPRESSION: No DVT demonstrated in the bilateral lower extremity. Knee X-Ray 04/13/23 16:15 IMPRESSION: Mild degenerative changes medial and patellofemoral compartment both knees. No visible acute fracture, dislocation or subluxation seen. Knee X-Ray 04/13/23 16:15 IMPRESSION: Mild degenerative changes medial and patellofemoral compartment both knees. No visible acute fracture, dislocation or subluxation seen. Medications Medications Current Medications Acetaminophen (Acetaminophen 325 Mg Tablet) 650 mg PO TID [facility] Last Admin: 05/04/23 08:48 Dose: 650 mg Artificial Tears (Artificial Tears 15 Ml Drops) 1 drop EYE-BOTH Q4H PRN PRN Reason: Dry Eyes Atorvastatin Calcium (Atorvastatin Calcium 20 Mg Tablet) 20 mg PO BEDTIME [facility] Last Admin: 05/03/23 20:42 Dose: 20 mg Bisacodyl (Bisacodyl 10 Mg Supp.Rect) [address] DAILY PRN PRN Reason: Constipation Clopidogrel Bisulfate (Clopidogrel Bisulfate 75 Mg Tablet) 75 mg PO DAILY [facility] Last Admin: 05/04/23 08:48 Dose: 75 mg Dextrose (Dextrose 50 % 25 Gm/50 Ml Syringe) 25 gm IVPUSH Q15M PRN; Protocol PRN Reason: per Hypoglycemia Standing Ord. Divalproex Sodium (Divalproex Sodium 250 Mg Tablet.) 250 mg PO DAILY [facility] Last Admin: 05/04/23 08:49 Dose: 250 mg Divalproex Sodium (Divalproex Sodium 500 Mg Tablet.) 500 mg PO BEDTIME [facility] Last Admin: 05/03/23 20:42 Dose: 500 mg Donepezil HCl (Donepezil Hcl 10 Mg Tablet) 10 mg PO BEDTIME [facility] Last Admin: 05/03/23 20:42 Dose: 10 mg Escitalopram Oxalate (Escitalopram Oxalate 10 Mg Tablet) 10 mg PO DAILY [facility] Last Admin: 05/04/23 08:49 Dose: 10 mg Gabapentin (Gabapentin 600 Mg Tablet) 600 mg PO DAILY@1300 [facility] Last Admin: 05/03/23 13:10 Dose: 600 mg Gabapentin (Gabapentin 400 Mg Capsule) 800 mg PO BEDTIME [facility] Last Admin: 05/03/23 20:40 Dose: 800 mg Glucagon (Glucagon Hcl 1 Mg Vial) 1 mg SUBCUT Q20M PRN PRN Reason: BG <70 AND UNRESPONSIVE Glucose (Glucose Gel 15 Gm Gel..Gram.) 15 gm PO Q15M PRN PRN Reason: BG <70 AND RESPONSIVE Last Admin: 01/30/23 03:12 Dose: 15 gm Glucose (Glucose Gel 15 Gm Gel..Gram.) 15 gm PO Q15M PRN; Protocol PRN Reason: per Hypoglycemia Standing Ord. Guaifenesin/Dextromethorphan (Guaifenesin Dm 200/20/10 Ml 10 Ml Syrup) 10 ml PO Q6H PRN PRN Reason: Cough Last Admin: 05/04/23 03:10 Dose: 10 ml Ibuprofen (Ibuprofen 400 Mg Tablet) 400 mg PO Q6H PRN PRN Reason: Pain, Moderate(Pain Scale 4-6) Last Admin: 05/03/23 01:17 Dose: 400 mg Insulin Glargine (Insulin Glargine,Hum.Rec.Anlog 100 Unit/Ml 10 Ml Vial) 50 unit SUBCUT BEDTIME [facility] Last Admin: 05/03/23 20:47 Dose: 50 unit Insulin Glargine (Insulin Glargine,Hum.Rec.Anlog 100 Unit/Ml 10 Ml Vial) 20 unit SUBCUT DAILY [facility] Last Admin: 05/04/23 08:48 Dose: 20 unit Insulin Human Lispro (Insulin Lispro 100 Unit/Ml 3 Ml Vial) 0 unit SUBCUT QIDACHS [facility]; Protocol Stop: 05/04/23 11:36 Last Admin: 05/04/23 06:45 Dose: Not Given Levothyroxine Sodium (Levothyroxine Sodium 75 Mcg Tablet) 75 mcg PO DAILY@0630 [facility] Last Admin: 05/04/23 06:13 Dose: 75 mcg Lidocaine (Lidocaine 4 % Patch Adh..Patch) 1 patch TRANSDERMA DAILY [facility]; Protocol Last Admin: 05/04/23 08:51 Dose: 1 patch Loperamide HCl (Loperamide Hcl 2 Mg Capsule) 4 mg PO Q4H PRN PRN Reason: Diarrhea Last Admin: 04/22/23 09:16 Dose: 4 mg Magnesium Hydroxide (Milk Of Magnesia 30 Ml Oral.Susp) 30 ml PO DAILY PRN PRN Reason: Constipation Memantine (Memantine Hcl 10 Mg Tablet) 10 mg PO BID [facility] Last Admin: 05/04/23 08:49 Dose: 10 mg Metoprolol Tartrate (Metoprolol Tartrate 25 Mg Tablet) 25 mg PO DAILY [facility]; Protocol Last Admin: 05/04/23 08:49 Dose: 25 mg Pt Own Trulicity ( (Dulaglutide 0.75 Mg)) 0.75 mg SUBCUT Tu@1730 [facility] Last Admin: 04/29/23 18:37 Dose: 0.75 mg Sodium Biphosphate/Sodium Phosphate (Sodium Phosphate,[place]-Dibasic 133 Ml Enema) [address] DAILY PRN PRN Reason: Constipation Trazodone HCl (Trazodone Hcl 50 Mg Tablet) 50 mg PO BEDTIME MRX1 PRN PRN Reason: Insomnia Last Admin: 05/04/23 01:23 Dose: 50 mg Valsartan (Valsartan 80 Mg Tablet) 80 mg PO BEDTIME [facility]; Protocol Last Admin: 05/03/23 20:43 Dose: 80 mg Allergies Allergies Allergy/AdvReac Type Severity Reaction Status Date / Time aspirin [ASPIRIN] Allergy Unknown UNKNOWN Verified 01/01/23 09:43 Assessment & Plan Assessment & Plan (1) Major neurocognitive disorder: Status: Acute Code(s): F03.90 - Unspecified dementia, unspecified severity, without behavioral disturbance, psychotic disturbance, mood disturbance, and anxiety (2) Mood disorder: Status: Acute Code(s): F39 - Unspecified mood [affective] disorder Plan 04/15 continue tx. reports PRESTON, given one time naproxen- has to limit use of NSAID as pt on plavix. 04/16 continue tx. 04/17 continue tx 04/18 continue tx. 04/19: stable. continue current mgmt. 04/21: stable. continue current mgmt. 04/22 continue tx. 04/23 continue tx. 04/24 continue tx. 04/25 some concern in terms of increase hypersexual behaviors. will restart risperidone 1mg po BID in addition to depakote. 04/26 taken off close obs- seems better on added risperidone less intrussive- 04/27 dx with covid last pm, doing ok today - not very symptomatic- and less manic no hypersexuality however patient has not been out in [facility] for a few days- 04/28/23 stabilizing- CTP 04/29 continue tx. 04/30 continue tx. 05/01 continue tx. 05/02 continue tx. 05/03/2023: Will increase nighttime gabapentin to 800 mg for sleep. 05/04/2023: Will continue to observe sleep with higher dose of gabapentin Reason for continued inpatient stay Substantial Risk for: inability to function Time Spent With Patient Time: Total time managing care of this patient today ____ minutes.
[2023-05-04] MEDS: Gabapentin 600 MG TABLET PO (12:22)
[2023-05-04] MEDS: Ibuprofen 400 MG TABLET PO (13:00)
[2023-05-04 18:00] VITALS: BP 127/58; PULSE 70; RESP 16; TEMP 35.8; O2SAT 97
[2023-05-04] MEDS: Divalproex Sodium 500 MG TABLET.DR PO (21:26)
[2023-05-04] MEDS: Donepezil HCl 10 MG TABLET PO (21:27)
[2023-05-04] MEDS: Valsartan 80 MG TABLET PO (21:28)
[2023-05-05] MEDS: Levothyroxine Sodium 75 MCG TABLET PO (05:39)
[2023-05-05] MEDS: Ibuprofen 400 MG TABLET PO (05:39)
[2023-05-05 09:37] VITALS: BP 123/58; PULSE 77; RESP 16; TEMP 36.5; O2SAT 94
[2023-05-05] MEDS: Lidocaine 4 % Patch ADH..PATCH 1 PATCH TRANSDERMA (09:39)
[2023-05-05] MEDS: Insulin Glargine,Hum.rec.anlog 100 UNIT/ML 10 ML VIAL 20 UNIT SUBCUT (09:39)
[2023-05-05] MEDS: Clopidogrel Bisulfate 75 MG TABLET PO (09:40)
[2023-05-05] MEDS: Memantine HCl 10 MG TABLET PO ×2 (09:41→20:31)
[2023-05-05] MEDS: Metoprolol Tartrate 25 MG TABLET PO (09:41)
[2023-05-05] MEDS: Escitalopram Oxalate 10 MG TABLET PO (09:41)
--- NOTE | 2023-05-05 10:13 | P.PNPSI_ITS ---
Subjective Subjective Date of Service: 05/05/23 Reason For Visit: Depression Subjective Notes: Conditional Voluntary Interim History: Pt slept through the night. She reports having neck pain and left leg pain which exacerbates from time to time. No SI/HI, She continues visible on the unit. Social with select peers. NO overt behavioral concerns. Medication Compliance: Yes Diagnostics Vital Signs (24Hr): Vital Signs - 24 hr 05/04/23 18:00 05/05/23 09:37 Temperature 96.4 F L 97.7 F Pulse Rate 70 77 Respiratory Rate 16 16 Blood Pressure 127/58 L 123/58 L Pulse Oximetry 97 94 Oxygen Delivery Method Room Air Room Air BMI result Body Mass Index 28.5 Labs 01/07/23 17:49 01/07/23 17:49 Labs: Laboratory Results - last 48 hr 05/03/23 05/03/23 05/03/23 11:21 16:13 20:05 POC Glucose 280 H 142 H 157 H COVID-19 ([facility]) COVID-19 Clin Com 05/04/23 05/04/23 05/04/23 06:03 11:32 16:31 POC Glucose 93 248 H 224 H COVID-19 ([facility]) COVID-19 Clin Com 05/04/23 05/05/23 05/05/23 19:53 05:42 08:52 POC Glucose 229 H 72 COVID-19 ([facility]) Positive A COVID-19 Clin Com See Note Imaging Radiology Impressions: ITS Impressions Venous Duplex 01/30/23 16:02 IMPRESSION: No DVT demonstrated in the bilateral lower extremity. Knee X-Ray 04/13/23 16:15 IMPRESSION: Mild degenerative changes medial and patellofemoral compartment both knees. No visible acute fracture, dislocation or subluxation seen. Knee X-Ray 04/13/23 16:15 IMPRESSION: Mild degenerative changes medial and patellofemoral compartment both knees. No visible acute fracture, dislocation or subluxation seen. Medications Medications Current Medications Acetaminophen (Acetaminophen 325 Mg Tablet) 650 mg PO TID [facility] Last Admin: 05/05/23 09:40 Dose: 650 mg Artificial Tears (Artificial Tears 15 Ml Drops) 1 drop EYE-BOTH Q4H PRN PRN Reason: Dry Eyes Atorvastatin Calcium (Atorvastatin Calcium 20 Mg Tablet) 20 mg PO BEDTIME [facility] Last Admin: 05/04/23 21:27 Dose: 20 mg Bisacodyl (Bisacodyl 10 Mg Supp.Rect) 10 mg [place] DAILY PRN PRN Reason: Constipation Clopidogrel Bisulfate (Clopidogrel Bisulfate 75 Mg Tablet) 75 mg PO DAILY [facility] Last Admin: 05/05/23 09:40 Dose: 75 mg Dextrose (Dextrose 50 % 25 Gm/50 Ml Syringe) 25 gm IVPUSH Q15M PRN; Protocol PRN Reason: per Hypoglycemia Standing Ord. Divalproex Sodium (Divalproex Sodium 250 Mg Tablet.) 250 mg PO DAILY [facility] Last Admin: 05/05/23 09:40 Dose: 250 mg Divalproex Sodium (Divalproex Sodium 500 Mg Tablet.) 500 mg PO BEDTIME [facility] Last Admin: 05/04/23 21:26 Dose: 500 mg Donepezil HCl (Donepezil Hcl 10 Mg Tablet) 10 mg PO BEDTIME [facility] Last Admin: 05/04/23 21:27 Dose: 10 mg Escitalopram Oxalate (Escitalopram Oxalate 10 Mg Tablet) 10 mg PO DAILY [facility] Last Admin: 05/05/23 09:41 Dose: 10 mg Gabapentin (Gabapentin 600 Mg Tablet) 600 mg PO DAILY@1300 [facility] Last Admin: 05/04/23 12:22 Dose: 600 mg Gabapentin (Gabapentin 400 Mg Capsule) 800 mg PO BEDTIME [facility] Last Admin: 05/04/23 21:27 Dose: 800 mg Glucagon (Glucagon Hcl 1 Mg Vial) 1 mg SUBCUT Q20M PRN PRN Reason: BG <70 AND UNRESPONSIVE Glucose (Glucose Gel 15 Gm Gel..Gram.) 15 gm PO Q15M PRN PRN Reason: BG <70 AND RESPONSIVE Last Admin: 01/30/23 03:12 Dose: 15 gm Glucose (Glucose Gel 15 Gm Gel..Gram.) 15 gm PO Q15M PRN; Protocol PRN Reason: per Hypoglycemia Standing Ord. Guaifenesin/Dextromethorphan (Guaifenesin Dm 200/20/10 Ml 10 Ml Syrup) 10 ml PO Q6H PRN PRN Reason: Cough Last Admin: 05/04/23 03:10 Dose: 10 ml Ibuprofen (Ibuprofen 400 Mg Tablet) 400 mg PO Q6H PRN PRN Reason: Pain, Moderate(Pain Scale 4-6) Last Admin: 05/05/23 05:39 Dose: 400 mg Insulin Glargine (Insulin Glargine,Hum.Rec.Anlog 100 Unit/Ml 10 Ml Vial) 50 unit SUBCUT BEDTIME [facility] Last Admin: 05/04/23 21:25 Dose: 50 unit Insulin Glargine (Insulin Glargine,Hum.Rec.Anlog 100 Unit/Ml 10 Ml Vial) 20 unit SUBCUT DAILY [facility] Last Admin: 05/05/23 09:39 Dose: 20 unit Insulin Human Lispro (Insulin Lispro 100 Unit/Ml 3 Ml Vial) 0 unit SUBCUT QIDACHS [facility]; Protocol Last Admin: 05/05/23 09:39 Dose: Not Given Levothyroxine Sodium (Levothyroxine Sodium 75 Mcg Tablet) 75 mcg PO DAILY@0630 [facility] Last Admin: 05/05/23 05:39 Dose: 75 mcg Lidocaine (Lidocaine 4 % Patch Adh..Patch) 1 patch TRANSDERMA DAILY [facility]; Protocol Last Admin: 05/05/23 09:39 Dose: 1 patch Loperamide HCl (Loperamide Hcl 2 Mg Capsule) 4 mg PO Q4H PRN PRN Reason: Diarrhea Last Admin: 04/22/23 09:16 Dose: 4 mg Magnesium Hydroxide (Milk Of Magnesia 30 Ml Oral.Susp) 30 ml PO DAILY PRN PRN Reason: Constipation Memantine (Memantine Hcl 10 Mg Tablet) 10 mg PO BID [facility] Last Admin: 05/05/23 09:41 Dose: 10 mg Metoprolol Tartrate (Metoprolol Tartrate 25 Mg Tablet) 25 mg PO DAILY [facility]; Protocol Last Admin: 05/05/23 09:41 Dose: 25 mg Pt Own Trulicity ( (Dulaglutide 0.75 Mg)) 0.75 mg SUBCUT Tu@1730 [facility] Last Admin: 04/29/23 18:37 Dose: 0.75 mg Sodium Biphosphate/Sodium Phosphate (Sodium Phosphate,[place]-Dibasic 133 Ml Enema) 133 ml MT DAILY PRN PRN Reason: Constipation Trazodone HCl (Trazodone Hcl 50 Mg Tablet) 50 mg PO BEDTIME MRX1 PRN PRN Reason: Insomnia Last Admin: 05/04/23 21:27 Dose: 50 mg Valsartan (Valsartan 80 Mg Tablet) 80 mg PO BEDTIME [facility]; Protocol Last Admin: 05/04/23 21:28 Dose: 80 mg Allergies Allergies Allergy/AdvReac Type Severity Reaction Status Date / Time aspirin [ASPIRIN] Allergy Unknown UNKNOWN Verified 01/01/23 09:43 Assessment & Plan Assessment & Plan (1) Major neurocognitive disorder: Status: Acute Code(s): F03.90 - Unspecified dementia, unspecified severity, without behavioral disturbance, psychotic disturbance, mood disturbance, and anxiety (2) Mood disorder: Status: Acute Code(s): F39 - Unspecified mood [affective] disorder Plan 04/15 continue tx. reports PRESTON, given one time naproxen- has to limit use of NSAID as pt on plavix. 04/16 continue tx. 04/17 continue tx 04/18 continue tx. 04/19: stable. continue current mgmt. 04/21: stable. continue current mgmt. 04/22 continue tx. 04/23 continue tx. 04/24 continue tx. 04/25 some concern in terms of increase hypersexual behaviors. will restart risperidone 1mg po BID in addition to depakote. 04/26 taken off close obs- seems better on added risperidone less intrussive- 04/27 dx with stephen last pm, doing ok today - not very symptomatic- and less manic no hypersexuality however patient has not been out in [facility] for a few days- 04/28/23 stabilizing- CTP 04/29 continue tx. 04/30 continue tx. 05/01 continue tx. 05/02 continue tx. 05/03/2023: Will increase nighttime gabapentin to 800 mg for sleep. 05/04/2023: Will continue to observe sleep with higher dose of gabapentin 05/05 continue tx. Reason for continued inpatient stay Substantial Risk for: inability to function Time Spent With Patient Time: Total time managing care of this patient today ____ minutes.
[2023-05-05] MEDS: Gabapentin 600 MG TABLET PO (11:54)
[2023-05-05 16:37] LABS: Glucose, Whole Blood 197 mg/dL (60-115)
[2023-05-05] MEDS: Insulin Lispro 100 UNIT/ML 3 ML VIAL SUBCUT ×2 (16:40→20:33)
[2023-05-05 18:00] VITALS: BP 126/67; PULSE 72; RESP 18; TEMP 36.4; O2SAT 96
[2023-05-05] MEDS: Acetaminophen 325 MG TABLET 650 MG PO (20:29)
[2023-05-05] MEDS: Gabapentin 400 MG CAPSULE 800 MG PO (20:30)
[2023-05-05] MEDS: traZODone HCL 50 MG TABLET PO ×2 (20:31→23:25)
[2023-05-05] MEDS: Atorvastatin Calcium 20 MG TABLET PO (20:31)
[2023-05-05] MEDS: Donepezil HCl 10 MG TABLET PO (20:32)
[2023-05-05] MEDS: Valsartan 80 MG TABLET PO (20:32)
[2023-05-05] MEDS: Divalproex Sodium 500 MG TABLET.DR PO (20:32)
[2023-05-05] MEDS: Insulin Glargine,Hum.rec.anlog 100 UNIT/ML 10 ML VIAL 50 UNIT SUBCUT (20:33)
[2023-05-05 21:50] LABS: Glucose, Whole Blood 205 mg/dL (60-115)
[2023-05-06] MEDS: Levothyroxine Sodium 75 MCG TABLET PO (06:04)
[2023-05-06 06:44] LABS: Glucose, Whole Blood 82 mg/dL (60-115)
[2023-05-06 09:25] VITALS: BP 131/61; PULSE 96; RESP 16; TEMP 36.4; O2SAT 95
--- NOTE | 2023-05-06 10:26 | HO.PSYCHPN ---
Subjective Subjective Date of Service: 05/06/23 Reason For Visit: Depression Subjective Notes: Conditional Voluntary Healthcare Proxy: Yes Interim History: Pt slept through the night. Pt reports doing well. She denies physical pain. She has been visible on the unit, attends assigned groups. No behavioral concerns. Review of Systems Review of Systems Unremarkable -recovering from COVID Yes all other systems are reviewed and are negative Mental Status Exam Mental Status Exam Narrative: Appearance: Casual attire, good hygiene, Behavior: cooperative, calm Psychomotor: no agitation noted Speech: clear, normal rate/rhythm/volume, spontaneous TP: linear Mood: good Affect: congruent, bright VH/AH: none expressed Delusions: none expressed Insight/judgment: fair x 2. Memory/cog: alert, oriented x 3. Diagnostics Vital Signs (24Hr): Vital Signs - 24 hr 05/05/23 18:00 05/06/23 09:25 Temperature 97.6 F 97.5 F Pulse Rate 72 96 Respiratory Rate 18 16 Blood Pressure 126/67 131/61 Pulse Oximetry 96 95 Oxygen Delivery Method Room Air Room Air BMI result Body Mass Index 28.5 Labs 01/07/23 17:49 01/07/23 17:49 Labs: Laboratory Results - last 48 hr 05/04/23 05/04/23 05/04/23 11:32 16:31 19:53 POC Glucose 248 H 224 H 229 H COVID-19 ([facility]) COVID-19 Clin Com 05/05/23 05/05/23 05/05/23 05:42 08:52 11:31 POC Glucose 72 251 H COVID-19 ([facility]) Positive A COVID-19 Clin Com See Note 05/05/23 05/05/23 05/06/23 16:29 19:43 05:37 POC Glucose 197 H 205 H 82 COVID-19 ([facility]) COVID-19 Clin Com Imaging Radiology Impressions: ITS Impressions Venous Duplex 01/30/23 16:02 IMPRESSION: No DVT demonstrated in the bilateral lower extremity. Knee X-Ray 04/13/23 16:15 IMPRESSION: Mild degenerative changes medial and patellofemoral compartment both knees. No visible acute fracture, dislocation or subluxation seen. Knee X-Ray 04/13/23 16:15 IMPRESSION: Mild degenerative changes medial and patellofemoral compartment both knees. No visible acute fracture, dislocation or subluxation seen. Medications Medications Current Medications Acetaminophen (Acetaminophen 325 Mg Tablet) 650 mg PO TID [facility] Last Admin: 05/05/23 20:29 Dose: 650 mg Artificial Tears (Artificial Tears 15 Ml Drops) 1 drop EYE-BOTH Q4H PRN PRN Reason: Dry Eyes Atorvastatin Calcium (Atorvastatin Calcium 20 Mg Tablet) 20 mg PO BEDTIME [facility] Last Admin: 05/05/23 20:31 Dose: 20 mg Bisacodyl (Bisacodyl 10 Mg Supp.Rect) 10 mg [place] DAILY PRN PRN Reason: Constipation Clopidogrel Bisulfate (Clopidogrel Bisulfate 75 Mg Tablet) 75 mg PO DAILY [facility] Last Admin: 05/05/23 09:40 Dose: 75 mg Dextrose (Dextrose 50 % 25 Gm/50 Ml Syringe) 25 gm IVPUSH Q15M PRN; Protocol PRN Reason: per Hypoglycemia Standing Ord. Divalproex Sodium (Divalproex Sodium 250 Mg Tablet.) 250 mg PO DAILY [facility] Last Admin: 05/05/23 09:40 Dose: 250 mg Divalproex Sodium (Divalproex Sodium 500 Mg Tablet.) 500 mg PO BEDTIME [facility] Last Admin: 05/05/23 20:32 Dose: 500 mg Donepezil HCl (Donepezil Hcl 10 Mg Tablet) 10 mg PO BEDTIME [facility] Last Admin: 05/05/23 20:32 Dose: 10 mg Escitalopram Oxalate (Escitalopram Oxalate 10 Mg Tablet) 10 mg PO DAILY [facility] Last Admin: 05/05/23 09:41 Dose: 10 mg Gabapentin (Gabapentin 600 Mg Tablet) 600 mg PO DAILY@1300 [facility] Last Admin: 05/05/23 11:54 Dose: 600 mg Gabapentin (Gabapentin 400 Mg Capsule) 800 mg PO BEDTIME [facility] Last Admin: 05/05/23 20:30 Dose: 800 mg Glucagon (Glucagon Hcl 1 Mg Vial) 1 mg SUBCUT Q20M PRN PRN Reason: BG <70 AND UNRESPONSIVE Glucose (Glucose Gel 15 Gm Gel..Gram.) 15 gm PO Q15M PRN PRN Reason: BG <70 AND RESPONSIVE Last Admin: 01/30/23 03:12 Dose: 15 gm Glucose (Glucose Gel 15 Gm Gel..Gram.) 15 gm PO Q15M PRN; Protocol PRN Reason: per Hypoglycemia Standing Ord. Guaifenesin/Dextromethorphan (Guaifenesin Dm 200/20/10 Ml 10 Ml Syrup) 10 ml PO Q6H PRN PRN Reason: Cough Last Admin: 05/04/23 03:10 Dose: 10 ml Ibuprofen (Ibuprofen 400 Mg Tablet) 400 mg PO Q6H PRN PRN Reason: Pain, Moderate(Pain Scale 4-6) Last Admin: 05/05/23 05:39 Dose: 400 mg Insulin Glargine (Insulin Glargine,Hum.Rec.Anlog 100 Unit/Ml 10 Ml Vial) 50 unit SUBCUT BEDTIME [facility] Last Admin: 05/05/23 20:33 Dose: 50 unit Insulin Glargine (Insulin Glargine,Hum.Rec.Anlog 100 Unit/Ml 10 Ml Vial) 20 unit SUBCUT DAILY [facility] Last Admin: 05/05/23 09:39 Dose: 20 unit Insulin Human Lispro (Insulin Lispro 100 Unit/Ml 3 Ml Vial) 0 unit SUBCUT QIDACHS [facility]; Protocol Last Admin: 05/05/23 20:33 Dose: 4 unit Levothyroxine Sodium (Levothyroxine Sodium 75 Mcg Tablet) 75 mcg PO DAILY@0630 [facility] Last Admin: 05/06/23 06:04 Dose: 75 mcg Lidocaine (Lidocaine 4 % Patch Adh..Patch) 1 patch TRANSDERMA DAILY [facility]; Protocol Last Admin: 05/05/23 09:39 Dose: 1 patch Loperamide HCl (Loperamide Hcl 2 Mg Capsule) 4 mg PO Q4H PRN PRN Reason: Diarrhea Last Admin: 04/22/23 09:16 Dose: 4 mg Magnesium Hydroxide (Milk Of Magnesia 30 Ml Oral.Susp) 30 ml PO DAILY PRN PRN Reason: Constipation Memantine (Memantine Hcl 10 Mg Tablet) 10 mg PO BID [facility] Last Admin: 05/05/23 20:31 Dose: 10 mg Metoprolol Tartrate (Metoprolol Tartrate 25 Mg Tablet) 25 mg PO DAILY [facility]; Protocol Last Admin: 05/05/23 09:41 Dose: 25 mg Pt Own Trulicity ( (Dulaglutide 0.75 Mg)) 0.75 mg SUBCUT Tu@7860 [facility] Last Admin: 04/29/23 18:37 Dose: 0.75 mg Sodium Biphosphate/Sodium Phosphate (Sodium Phosphate,[place]-Dibasic 133 Ml Enema) 133 ml NM DAILY PRN PRN Reason: Constipation Trazodone HCl (Trazodone Hcl 50 Mg Tablet) 50 mg PO BEDTIME MRX1 PRN PRN Reason: Insomnia Last Admin: 05/05/23 23:25 Dose: 50 mg Valsartan (Valsartan 80 Mg Tablet) 80 mg PO BEDTIME [facility]; Protocol Last Admin: 05/05/23 20:32 Dose: 80 mg Allergies Allergies Allergy/AdvReac Type Severity Reaction Status Date / Time aspirin [ASPIRIN] Allergy Unknown UNKNOWN Verified 01/01/23 09:43 Assessment & Plan Assessment & Plan (1) Major neurocognitive disorder: Status: Acute Code(s): F03.90 - Unspecified dementia, unspecified severity, without behavioral disturbance, psychotic disturbance, mood disturbance, and anxiety (2) Mood disorder: Status: Acute Code(s): F39 - Unspecified mood [affective] disorder Plan 04/15 continue tx. reports PRESTON, given one time naproxen- has to limit use of NSAID as pt on plavix. 04/16 continue tx. 04/17 continue tx 04/18 continue tx. 04/19: stable. continue current mgmt. 04/21: stable. continue current mgmt. 04/22 continue tx. 04/23 continue tx. 04/24 continue tx. 04/25 some concern in terms of increase hypersexual behaviors. will restart risperidone 1mg po BID in addition to depakote. 04/26 taken off close obs- seems better on added risperidone less intrussive- 04/27 dx with covid last pm, doing ok today - not very symptomatic- and less manic no hypersexuality however patient has not been out in [facility] for a few days- 04/28/23 stabilizing- CTP 04/29 continue tx. 04/30 continue tx. 05/01 continue tx. 05/02 continue tx. 05/03/2023: Will increase nighttime gabapentin to 800 mg for sleep. 05/04/2023: Will continue to observe sleep with higher dose of gabapentin 05/05 continue tx. 05/06 continue tx. Reason for continued inpatient stay Substantial Risk for: inability to function Time Spent With Patient Time: Total time managing care of this patient today ____ minutes.
[2023-05-06] MEDS: Metoprolol Tartrate 25 MG TABLET PO (10:46)
[2023-05-06] MEDS: Divalproex Sodium 250 MG TABLET.DR PO (10:46)
[2023-05-06] MEDS: Insulin Glargine,Hum.rec.anlog 100 UNIT/ML 10 ML VIAL 20 UNIT SUBCUT (10:47)
[2023-05-06] MEDS: Memantine HCl 10 MG TABLET PO ×2 (10:47→20:30)
[2023-05-06] MEDS: Escitalopram Oxalate 10 MG TABLET PO (10:47)
[2023-05-06] MEDS: Acetaminophen 325 MG TABLET 650 MG PO ×3 (10:48→20:29)
[2023-05-06] MEDS: Clopidogrel Bisulfate 75 MG TABLET PO (10:48)
[2023-05-06] MEDS: Lidocaine 4 % Patch ADH..PATCH 1 PATCH TRANSDERMA (10:49)
[2023-05-06 11:54] LABS: Glucose, Whole Blood 278 mg/dL (60-115)
[2023-05-06] MEDS: Gabapentin 600 MG TABLET PO (12:50)
[2023-05-06] MEDS: Insulin Lispro 100 UNIT/ML 3 ML VIAL SUBCUT ×3 (12:51→20:31)
[2023-05-06 16:19] LABS: Glucose, Whole Blood 179 mg/dL (60-115)
[2023-05-06 18:35] VITALS: BP 123/54; PULSE 71; RESP 16; TEMP 36.5; O2SAT 96
[2023-05-06 20:21] LABS: Glucose, Whole Blood 259 mg/dL (60-115)
[2023-05-06] MEDS: Donepezil HCl 10 MG TABLET PO (20:29)
[2023-05-06] MEDS: Gabapentin 400 MG CAPSULE 800 MG PO (20:29)
[2023-05-06] MEDS: Divalproex Sodium 500 MG TABLET.DR PO (20:30)
[2023-05-06] MEDS: Valsartan 80 MG TABLET PO (20:30)
[2023-05-06] MEDS: Atorvastatin Calcium 20 MG TABLET PO (20:30)
[2023-05-06] MEDS: Insulin Glargine,Hum.rec.anlog 100 UNIT/ML 10 ML VIAL 50 UNIT SUBCUT (20:30)
[2023-05-07] MEDS: Loperamide HCl 2 MG CAPSULE 4 MG PO (04:30)
[2023-05-07] MEDS: Levothyroxine Sodium 75 MCG TABLET PO (05:41)
[2023-05-07 06:16] LABS: Glucose, Whole Blood 171 mg/dL (60-115)
[2023-05-07 08:50] VITALS: BP 140/67; PULSE 80; RESP 18; TEMP 36.1; O2SAT 95
[2023-05-07] MEDS: Lidocaine 4 % Patch ADH..PATCH 1 PATCH TRANSDERMA (08:52)
[2023-05-07] MEDS: Divalproex Sodium 250 MG TABLET.DR PO (08:53)
[2023-05-07] MEDS: Acetaminophen 325 MG TABLET 650 MG PO ×2 (08:53→20:09)
[2023-05-07] MEDS: Clopidogrel Bisulfate 75 MG TABLET PO (08:53)
[2023-05-07] MEDS: Metoprolol Tartrate 25 MG TABLET PO (08:53)
[2023-05-07] MEDS: Insulin Glargine,Hum.rec.anlog 100 UNIT/ML 10 ML VIAL 20 UNIT SUBCUT (08:53)
[2023-05-07] MEDS: Escitalopram Oxalate 10 MG TABLET PO (08:53)
[2023-05-07] MEDS: Memantine HCl 10 MG TABLET PO ×2 (08:53→20:09)
[2023-05-07] MEDS: Insulin Lispro 100 UNIT/ML 3 ML VIAL SUBCUT ×4 (08:54→20:37)
[2023-05-07 11:45] LABS: Glucose, Whole Blood 309 mg/dL (60-115)
[2023-05-07] MEDS: Gabapentin 600 MG TABLET PO (14:03)
[2023-05-07 16:28] LABS: Glucose, Whole Blood 227 mg/dL (60-115)
--- NOTE | 2023-05-07 16:33 | HO.PSYCHPN ---
Subjective Subjective Date of Service: 05/07/23 Reason For Visit: Depression Subjective Notes: Conditional Voluntary Interim History: Pt slept through the night. Pt reports doing well. She denies physical pain. She has been visible on the unit, attends assigned groups. No behavioral concerns. Review of Systems Review of Systems Unremarkable -recovering from COVID Yes all other systems are reviewed and are negative Mental Status Exam Mental Status Exam Narrative: Appearance: Casual attire, good hygiene, Behavior: cooperative, calm Psychomotor: no agitation noted Speech: clear, normal rate/rhythm/volume, spontaneous TP: linear Mood: good Affect: congruent, bright VH/AH: none expressed Delusions: none expressed Insight/judgment: fair x 2. Memory/cog: alert, oriented x 3. Diagnostics Vital Signs (24Hr): Vital Signs - 24 hr 05/06/23 18:35 05/07/23 08:50 Temperature 97.7 F 97.0 F Pulse Rate 71 80 Respiratory Rate 16 18 Blood Pressure 123/54 L 140/67 H Pulse Oximetry 96 95 Oxygen Delivery Method Room Air Room Air BMI result Body Mass Index 28.5 Labs 01/07/23 17:49 01/07/23 17:49 Labs: Laboratory Results - last 48 hr 05/05/23 05/05/23 05/06/23 16:29 19:43 05:37 POC Glucose 197 H 205 H 82 05/06/23 05/06/23 05/06/23 11:44 16:09 20:18 POC Glucose 278 H 179 H 259 H 05/07/23 05/07/23 05/07/23 05:49 11:42 16:24 POC Glucose 171 H 309 H 227 H Imaging Radiology Impressions: ITS Impressions Venous Duplex 01/30/23 16:02 IMPRESSION: No DVT demonstrated in the bilateral lower extremity. Knee X-Ray 04/13/23 16:15 IMPRESSION: Mild degenerative changes medial and patellofemoral compartment both knees. No visible acute fracture, dislocation or subluxation seen. Knee X-Ray 04/13/23 16:15 IMPRESSION: Mild degenerative changes medial and patellofemoral compartment both knees. No visible acute fracture, dislocation or subluxation seen. Medications Medications Current Medications Acetaminophen (Acetaminophen 325 Mg Tablet) 650 mg PO TID [facility] Last Admin: 05/07/23 14:06 Dose: Not Given Artificial Tears (Artificial Tears 15 Ml Drops) 1 drop EYE-BOTH Q4H PRN PRN Reason: Dry Eyes Atorvastatin Calcium (Atorvastatin Calcium 20 Mg Tablet) 20 mg PO BEDTIME [facility] Last Admin: 05/06/23 20:30 Dose: 20 mg Bisacodyl (Bisacodyl 10 Mg Supp.Rect) 10 mg AR DAILY PRN PRN Reason: Constipation Clopidogrel Bisulfate (Clopidogrel Bisulfate 75 Mg Tablet) 75 mg PO DAILY [facility] Last Admin: 05/07/23 08:53 Dose: 75 mg Dextrose (Dextrose 50 % 25 Gm/50 Ml Syringe) 25 gm IVPUSH Q15M PRN; Protocol PRN Reason: per Hypoglycemia Standing Ord. Divalproex Sodium (Divalproex Sodium 250 Mg Tablet.) 250 mg PO DAILY [facility] Last Admin: 05/07/23 08:53 Dose: 250 mg Divalproex Sodium (Divalproex Sodium 500 Mg Tablet.) 500 mg PO BEDTIME [facility] Last Admin: 05/06/23 20:30 Dose: 500 mg Donepezil HCl (Donepezil Hcl 10 Mg Tablet) 10 mg PO BEDTIME [facility] Last Admin: 05/06/23 20:29 Dose: 10 mg Escitalopram Oxalate (Escitalopram Oxalate 10 Mg Tablet) 10 mg PO DAILY [facility] Last Admin: 05/07/23 08:53 Dose: 10 mg Gabapentin (Gabapentin 600 Mg Tablet) 600 mg PO DAILY@1300 [facility] Last Admin: 05/07/23 14:03 Dose: 600 mg Gabapentin (Gabapentin 400 Mg Capsule) 800 mg PO BEDTIME [facility] Last Admin: 05/06/23 20:29 Dose: 800 mg Glucagon (Glucagon Hcl 1 Mg Vial) 1 mg SUBCUT Q20M PRN PRN Reason: BG <70 AND UNRESPONSIVE Glucose (Glucose Gel 15 Gm Gel..Gram.) 15 gm PO Q15M PRN PRN Reason: BG <70 AND RESPONSIVE Last Admin: 01/30/23 03:12 Dose: 15 gm Glucose (Glucose Gel 15 Gm Gel..Gram.) 15 gm PO Q15M PRN; Protocol PRN Reason: per Hypoglycemia Standing Ord. Guaifenesin/Dextromethorphan (Guaifenesin Dm 200/20/10 Ml 10 Ml Syrup) 10 ml PO Q6H PRN PRN Reason: Cough Last Admin: 05/04/23 03:10 Dose: 10 ml Ibuprofen (Ibuprofen 400 Mg Tablet) 400 mg PO Q6H PRN PRN Reason: Pain, Moderate(Pain Scale 4-6) Last Admin: 05/05/23 05:39 Dose: 400 mg Insulin Glargine (Insulin Glargine,Hum.Rec.Anlog 100 Unit/Ml 10 Ml Vial) 50 unit SUBCUT BEDTIME [facility] Last Admin: 05/06/23 20:30 Dose: 50 unit Insulin Glargine (Insulin Glargine,Hum.Rec.Anlog 100 Unit/Ml 10 Ml Vial) 20 unit SUBCUT DAILY [facility] Last Admin: 05/07/23 08:53 Dose: 20 unit Insulin Human Lispro (Insulin Lispro 100 Unit/Ml 3 Ml Vial) 0 unit SUBCUT QIDACHS [facility]; Protocol Last Admin: 05/07/23 11:59 Dose: 8 unit Levothyroxine Sodium (Levothyroxine Sodium 75 Mcg Tablet) 75 mcg PO DAILY@0630 [facility] Last Admin: 05/07/23 05:41 Dose: 75 mcg Lidocaine (Lidocaine 4 % Patch Adh..Patch) 1 patch TRANSDERMA DAILY [facility]; Protocol Last Admin: 05/07/23 08:52 Dose: 1 patch Loperamide HCl (Loperamide Hcl 2 Mg Capsule) 4 mg PO Q4H PRN PRN Reason: Diarrhea Last Admin: 05/07/23 04:30 Dose: 4 mg Magnesium Hydroxide (Milk Of Magnesia 30 Ml Oral.Susp) 30 ml PO DAILY PRN PRN Reason: Constipation Memantine (Memantine Hcl 10 Mg Tablet) 10 mg PO BID [facility] Last Admin: 05/07/23 08:53 Dose: 10 mg Metoprolol Tartrate (Metoprolol Tartrate 25 Mg Tablet) 25 mg PO DAILY [facility]; Protocol Last Admin: 05/07/23 08:53 Dose: 25 mg Pt Own Trulicity ( (Dulaglutide 0.75 Mg)) 0.75 mg SUBCUT Tu@1730 [facility] Last Admin: 05/06/23 18:58 Dose: Not Given Sodium Biphosphate/Sodium Phosphate (Sodium Phosphate,[place]-Dibasic 133 Ml Enema) 133 ml AR DAILY PRN PRN Reason: Constipation Trazodone HCl (Trazodone Hcl 50 Mg Tablet) 50 mg PO BEDTIME [facility] PRN PRN Reason: Insomnia Last Admin: 05/05/23 23:25 Dose: 50 mg Valsartan (Valsartan 80 Mg Tablet) 80 mg PO BEDTIME [facility]; Protocol Last Admin: 05/06/23 20:30 Dose: 80 mg Allergies Allergies Allergy/AdvReac Type Severity Reaction Status Date / Time aspirin [ASPIRIN] Allergy Unknown UNKNOWN Verified 01/01/23 09:43 Assessment & Plan Assessment & Plan (1) Major neurocognitive disorder: Status: Acute Code(s): F03.90 - Unspecified dementia, unspecified severity, without behavioral disturbance, psychotic disturbance, mood disturbance, and anxiety (2) Mood disorder: Status: Acute Code(s): F39 - Unspecified mood [affective] disorder Plan 04/15 continue tx. reports PRESTON, given one time naproxen- has to limit use of NSAID as pt on plavix. 04/16 continue tx. 04/17 continue tx 04/18 continue tx. 04/19: stable. continue current mgmt. 04/21: stable. continue current mgmt. 04/22 continue tx. 04/23 continue tx. 04/24 continue tx. 04/25 some concern in terms of increase hypersexual behaviors. will restart risperidone 1mg po BID in addition to depakote. 04/26 taken off close obs- seems better on added risperidone less intrussive- 04/27 dx with covid last pm, doing ok today - not very symptomatic- and less manic no hypersexuality however patient has not been out in [facility] for a few days- 04/28/23 stabilizing- CTP 04/29 continue tx. 04/30 continue tx. 05/01 continue tx. 05/02 continue tx. 05/03/2023: Will increase nighttime gabapentin to 800 mg for sleep. 05/04/2023: Will continue to observe sleep with higher dose of gabapentin 05/05 continue tx. 05/06 continue tx. 05/07 pt stable. continue tx. Reason for continued inpatient stay Substantial Risk for: inability to function Time Spent With Patient Time: Total time managing care of this patient today ____ minutes.
[2023-05-07 19:38] LABS: Glucose, Whole Blood 237 mg/dL (60-115)
[2023-05-07 19:54] VITALS: BP 144/69; PULSE 74; RESP 15; TEMP 36.6; O2SAT 94
[2023-05-07] MEDS: Gabapentin 400 MG CAPSULE 800 MG PO (20:09)
[2023-05-07] MEDS: Valsartan 80 MG TABLET PO (20:09)
[2023-05-07] MEDS: Atorvastatin Calcium 20 MG TABLET PO (20:09)
[2023-05-07] MEDS: Donepezil HCl 10 MG TABLET PO (20:09)
[2023-05-07] MEDS: Divalproex Sodium 500 MG TABLET.DR PO (20:09)
[2023-05-07] MEDS: Insulin Glargine,Hum.rec.anlog 100 UNIT/ML 10 ML VIAL 50 UNIT SUBCUT (20:37)
[2023-05-08] MEDS: Levothyroxine Sodium 75 MCG TABLET PO (05:17)
[2023-05-08 06:00] VITALS: BP 143/73; PULSE 84; RESP 16; TEMP 36.7; O2SAT 96
[2023-05-08 06:06] VITALS: BMI 28.4
[2023-05-08 06:40] LABS: Glucose, Whole Blood 125 mg/dL (60-115)
--- NOTE | 2023-05-08 09:05 | P.PNPSI_ITS ---
Subjective Subjective Date of Service: 05/08/23 Reason For Visit: Depression Subjective Notes: Conditional Voluntary Interim History: Pt slept through the night. Pt reports doing well. She denies physical pain. She has been visible on the unit, attends assigned groups. No behavioral concerns. Review of Systems Review of Systems Unremarkable -recovering from COVID Yes all other systems are reviewed and are negative Mental Status Exam Mental Status Exam Narrative: Appearance: Casual attire, good hygiene, Behavior: cooperative, calm Psychomotor: no agitation noted Speech: clear, normal rate/rhythm/volume, spontaneous TP: linear Mood: good Affect: congruent, bright VH/AH: none expressed Delusions: none expressed Insight/judgment: fair x 2. Memory/cog: alert, oriented x 3. Diagnostics Vital Signs (24Hr): Vital Signs - 24 hr 05/07/23 19:54 Temperature 97.8 F Pulse Rate 74 Respiratory Rate 15 Blood Pressure 144/69 H Pulse Oximetry 94 Oxygen Delivery Method Room Air BMI result Body Mass Index 28.4 Labs 01/07/23 17:49 01/07/23 17:49 Labs: Laboratory Results - last 48 hr 05/06/23 05/06/23 05/06/23 11:44 16:09 20:18 POC Glucose 278 H 179 H 259 H 05/07/23 05/07/23 05/07/23 05:49 11:42 16:24 POC Glucose 171 H 309 H 227 H 05/07/23 05/08/23 19:27 05:56 POC Glucose 237 H 125 H Imaging Radiology Impressions: ITS Impressions Venous Duplex 01/30/23 16:02 IMPRESSION: No DVT demonstrated in the bilateral lower extremity. Knee X-Ray 04/13/23 16:15 IMPRESSION: Mild degenerative changes medial and patellofemoral compartment both knees. No visible acute fracture, dislocation or subluxation seen. Knee X-Ray 04/13/23 16:15 IMPRESSION: Mild degenerative changes medial and patellofemoral compartment both knees. No visible acute fracture, dislocation or subluxation seen. Medications Medications Current Medications Acetaminophen (Acetaminophen 325 Mg Tablet) 650 mg PO TID [facility] Last Admin: 05/07/23 20:09 Dose: 650 mg Artificial Tears (Artificial Tears 15 Ml Drops) 1 drop EYE-BOTH Q4H PRN PRN Reason: Dry Eyes Atorvastatin Calcium (Atorvastatin Calcium 20 Mg Tablet) 20 mg PO BEDTIME [facility] Last Admin: 05/07/23 20:09 Dose: 20 mg Bisacodyl (Bisacodyl 10 Mg Supp.Rect) 10 mg ID DAILY PRN PRN Reason: Constipation Clopidogrel Bisulfate (Clopidogrel Bisulfate 75 Mg Tablet) 75 mg PO DAILY [facility] Last Admin: 05/07/23 08:53 Dose: 75 mg Dextrose (Dextrose 50 % 25 Gm/50 Ml Syringe) 25 gm IVPUSH Q15M PRN; Protocol PRN Reason: per Hypoglycemia Standing Ord. Divalproex Sodium (Divalproex Sodium 250 Mg Tablet.Dr) 250 mg PO DAILY [facility] Last Admin: 05/07/23 08:53 Dose: 250 mg Divalproex Sodium (Divalproex Sodium 500 Mg Tablet.Dr) 500 mg PO BEDTIME [facility] Last Admin: 05/07/23 20:09 Dose: 500 mg Donepezil HCl (Donepezil Hcl 10 Mg Tablet) 10 mg PO BEDTIME [facility] Last Admin: 05/07/23 20:09 Dose: 10 mg Escitalopram Oxalate (Escitalopram Oxalate 10 Mg Tablet) 10 mg PO DAILY [facility] Last Admin: 05/07/23 08:53 Dose: 10 mg Gabapentin (Gabapentin 600 Mg Tablet) 600 mg PO DAILY@1300 [facility] Last Admin: 05/07/23 14:03 Dose: 600 mg Gabapentin (Gabapentin 400 Mg Capsule) 800 mg PO BEDTIME [facility] Last Admin: 05/07/23 20:09 Dose: 800 mg Glucagon (Glucagon Hcl 1 Mg Vial) 1 mg SUBCUT Q20M PRN PRN Reason: BG <70 AND UNRESPONSIVE Glucose (Glucose Gel 15 Gm Gel..Gram.) 15 gm PO Q15M PRN PRN Reason: BG <70 AND RESPONSIVE Last Admin: 01/30/23 03:12 Dose: 15 gm Glucose (Glucose Gel 15 Gm Gel..Gram.) 15 gm PO Q15M PRN; Protocol PRN Reason: per Hypoglycemia Standing Ord. Guaifenesin/Dextromethorphan (Guaifenesin Dm 200/20/10 Ml 10 Ml Syrup) 10 ml PO Q6H PRN PRN Reason: Cough Last Admin: 05/04/23 03:10 Dose: 10 ml Ibuprofen (Ibuprofen 400 Mg Tablet) 400 mg PO Q6H PRN PRN Reason: Pain, Moderate(Pain Scale 4-6) Last Admin: 05/05/23 05:39 Dose: 400 mg Insulin Glargine (Insulin Glargine,Hum.Rec.Anlog 100 Unit/Ml 10 Ml Vial) 50 unit SUBCUT BEDTIME [facility] Last Admin: 05/07/23 20:37 Dose: 50 unit Insulin Glargine (Insulin Glargine,Hum.Rec.Anlog 100 Unit/Ml 10 Ml Vial) 20 unit SUBCUT DAILY [facility] Last Admin: 05/07/23 08:53 Dose: 20 unit Insulin Human Lispro (Insulin Lispro 100 Unit/Ml 3 Ml Vial) 0 unit SUBCUT QIDACHS [facility]; Protocol Last Admin: 05/07/23 20:37 Dose: 4 unit Levothyroxine Sodium (Levothyroxine Sodium 75 Mcg Tablet) 75 mcg PO DAILY@0630 [facility] Last Admin: 05/08/23 05:17 Dose: 75 mcg Lidocaine (Lidocaine 4 % Patch Adh..Patch) 1 patch TRANSDERMA DAILY [facility]; Protocol Last Admin: 05/07/23 08:52 Dose: 1 patch Loperamide HCl (Loperamide Hcl 2 Mg Capsule) 4 mg PO Q4H PRN PRN Reason: Diarrhea Last Admin: 05/07/23 04:30 Dose: 4 mg Magnesium Hydroxide (Milk Of Magnesia 30 Ml Oral.Susp) 30 ml PO DAILY PRN PRN Reason: Constipation Memantine (Memantine Hcl 10 Mg Tablet) 10 mg PO BID [facility] Last Admin: 05/07/23 20:09 Dose: 10 mg Metoprolol Tartrate (Metoprolol Tartrate 25 Mg Tablet) 25 mg PO DAILY [facility]; Protocol Last Admin: 05/07/23 08:53 Dose: 25 mg Pt Own Trulicity ( (Dulaglutide 0.75 Mg)) 0.75 mg SUBCUT Tu@1730 [facility] Last Admin: 05/06/23 18:58 Dose: Not Given Sodium Biphosphate/Sodium Phosphate (Sodium Phosphate,[place]-Dibasic 133 Ml Enema) 133 ml ID DAILY PRN PRN Reason: Constipation Trazodone HCl (Trazodone Hcl 50 Mg Tablet) 50 mg PO BEDTIME MRX1 PRN PRN Reason: Insomnia Last Admin: 05/05/23 23:25 Dose: 50 mg Valsartan (Valsartan 80 Mg Tablet) 80 mg PO BEDTIME [facility]; Protocol Last Admin: 05/07/23 20:09 Dose: 80 mg Allergies Allergies Allergy/AdvReac Type Severity Reaction Status Date / Time aspirin [ASPIRIN] Allergy Unknown UNKNOWN Verified 01/01/23 09:43 Assessment & Plan Assessment & Plan (1) Major neurocognitive disorder: Status: Acute Code(s): F03.90 - Unspecified dementia, unspecified severity, without behavioral disturbance, psychotic disturbance, mood disturbance, and anxiety (2) Mood disorder: Status: Acute Code(s): F39 - Unspecified mood [affective] disorder Plan 04/15 continue tx. reports PRESTON, given one time naproxen- has to limit use of NSAID as pt on plavix. 04/16 continue tx. 04/17 continue tx 04/18 continue tx. 04/19: stable. continue current mgmt. 04/21: stable. continue current mgmt. 04/22 continue tx. 04/23 continue tx. 04/24 continue tx. 04/25 some concern in terms of increase hypersexual behaviors. will restart risperidone 1mg po BID in addition to depakote. 04/26 taken off close obs- seems better on added risperidone less intrussive- 04/27 dx with stephen last pm, doing ok today - not very symptomatic- and less manic no hypersexuality however patient has not been out in [facility] for a few days- 04/28/23 stabilizing- CTP 04/29 continue tx. 04/30 continue tx. 05/01 continue tx. 05/02 continue tx. 05/03/2023: Will increase nighttime gabapentin to 800 mg for sleep. 05/04/2023: Will continue to observe sleep with higher dose of gabapentin 05/05 continue tx. 05/06 continue tx. 05/07 pt stable. continue tx. 05/08 continue tx. Reason for continued inpatient stay Substantial Risk for: inability to function Time Spent With Patient Time: Total time managing care of this patient today ____ minutes.
[2023-05-08] MEDS: Insulin Glargine,Hum.rec.anlog 100 UNIT/ML 10 ML VIAL 20 UNIT SUBCUT (09:37)
[2023-05-08] MEDS: Memantine HCl 10 MG TABLET PO ×2 (09:37→19:58)
[2023-05-08] MEDS: Escitalopram Oxalate 10 MG TABLET PO (09:37)
[2023-05-08] MEDS: Clopidogrel Bisulfate 75 MG TABLET PO (09:37)
[2023-05-08] MEDS: Divalproex Sodium 250 MG TABLET.DR PO (09:37)
[2023-05-08] MEDS: Metoprolol Tartrate 25 MG TABLET PO (09:37)
[2023-05-08] MEDS: Acetaminophen 325 MG TABLET 650 MG PO ×3 (09:37→19:59)
[2023-05-08] MEDS: Lidocaine 4 % Patch ADH..PATCH 1 PATCH TRANSDERMA (09:39)
[2023-05-08 11:43] LABS: Glucose, Whole Blood 277 mg/dL (60-115)
[2023-05-08] MEDS: Insulin Lispro 100 UNIT/ML 3 ML VIAL SUBCUT ×3 (11:45→20:00)
[2023-05-08] MEDS: Gabapentin 600 MG TABLET PO ×2 (15:27)
[2023-05-08 16:20] LABS: Glucose, Whole Blood 273 mg/dL (60-115)
[2023-05-08 19:18] LABS: Glucose, Whole Blood 297 mg/dL (60-115)
[2023-05-08] MEDS: Gabapentin 400 MG CAPSULE 800 MG PO (19:58)
[2023-05-08] MEDS: Atorvastatin Calcium 20 MG TABLET PO (19:58)
[2023-05-08] MEDS: Valsartan 80 MG TABLET PO (19:58)
[2023-05-08] MEDS: Donepezil HCl 10 MG TABLET PO (19:59)
[2023-05-08] MEDS: Insulin Glargine,Hum.rec.anlog 100 UNIT/ML 10 ML VIAL 50 UNIT SUBCUT (19:59)
[2023-05-08] MEDS: Divalproex Sodium 500 MG TABLET.DR PO (19:59)
[2023-05-08 20:47] VITALS: BP 151/68; PULSE 85; RESP 16; TEMP 36.2; O2SAT 97
[2023-05-08] MEDS: Ibuprofen 400 MG TABLET PO (21:50)
[2023-05-09] MEDS: traZODone HCL 50 MG TABLET PO ×2 (00:36→20:37)
[2023-05-09] MEDS: Levothyroxine Sodium 75 MCG TABLET PO (05:28)
[2023-05-09 06:49] LABS: Glucose, Whole Blood 121 mg/dL (60-115)
[2023-05-09 07:58] VITALS: BP 178/79; PULSE 84; RESP 16; TEMP 36; O2SAT 96
[2023-05-09] MEDS: Acetaminophen 325 MG TABLET 650 MG PO ×2 (08:01→20:35)
[2023-05-09] MEDS: Escitalopram Oxalate 10 MG TABLET PO (08:01)
[2023-05-09] MEDS: Memantine HCl 10 MG TABLET PO ×2 (08:01→20:37)
[2023-05-09] MEDS: Lidocaine 4 % Patch ADH..PATCH 1 PATCH TRANSDERMA (08:01)
[2023-05-09] MEDS: Metoprolol Tartrate 25 MG TABLET PO (08:01)
[2023-05-09] MEDS: Divalproex Sodium 250 MG TABLET.DR PO (08:01)
[2023-05-09] MEDS: Clopidogrel Bisulfate 75 MG TABLET PO (08:01)
[2023-05-09] MEDS: Insulin Glargine,Hum.rec.anlog 100 UNIT/ML 10 ML VIAL 20 UNIT SUBCUT (08:02)
--- NOTE | 2023-05-09 09:04 | P.PNPSI_ITS ---
Subjective Subjective Date of Service: 05/09/23 Reason For Visit: Depression Subjective Notes: Conditional Voluntary Interim History: Pt slept through the night. Pt reports doing well. She denies physical pain. She has been visible on the unit, attends assigned groups. No behavioral concerns. Review of Systems Review of Systems Unremarkable -recovering from COVID Yes all other systems are reviewed and are negative Mental Status Exam Mental Status Exam Narrative: Appearance: Casual attire, good hygiene, Behavior: cooperative, calm Psychomotor: no agitation noted Speech: clear, normal rate/rhythm/volume, spontaneous TP: linear Mood: good Affect: congruent, bright VH/AH: none expressed Delusions: none expressed Insight/judgment: fair x 2. Memory/cog: alert, oriented x 3. Diagnostics Vital Signs (24Hr): Vital Signs - 24 hr 05/08/23 20:47 05/09/23 07:58 Temperature 97.2 F 96.8 F Pulse Rate 85 84 Respiratory Rate 16 16 Blood Pressure 151/68 H 178/79 H Pulse Oximetry 97 96 Oxygen Delivery Method Room Air Room Air BMI result Body Mass Index 28.4 Labs 01/07/23 17:49 01/07/23 17:49 Labs: Laboratory Results - last 48 hr 05/07/23 05/07/23 05/07/23 11:42 16:24 19:27 POC Glucose 309 H 227 H 237 H 05/08/23 05/08/23 05/08/23 05:56 11:37 16:15 POC Glucose 125 H 277 H 273 H 05/08/23 05/09/23 19:10 06:08 POC Glucose 297 H 121 H Imaging Radiology Impressions: ITS Impressions Venous Duplex 01/30/23 16:02 IMPRESSION: No DVT demonstrated in the bilateral lower extremity. Knee X-Ray 04/13/23 16:15 IMPRESSION: Mild degenerative changes medial and patellofemoral compartment both knees. No visible acute fracture, dislocation or subluxation seen. Knee X-Ray 04/13/23 16:15 IMPRESSION: Mild degenerative changes medial and patellofemoral compartment both knees. No visible acute fracture, dislocation or subluxation seen. Medications Medications Current Medications Acetaminophen (Acetaminophen 325 Mg Tablet) 650 mg PO TID [facility] Last Admin: 05/09/23 08:01 Dose: 650 mg Artificial Tears (Artificial Tears 15 Ml Drops) 1 drop EYE-BOTH Q4H PRN PRN Reason: Dry Eyes Atorvastatin Calcium (Atorvastatin Calcium 20 Mg Tablet) 20 mg PO BEDTIME [facility] Last Admin: 05/08/23 19:58 Dose: 20 mg Bisacodyl (Bisacodyl 10 Mg Supp.Rect) 10 mg IN DAILY PRN PRN Reason: Constipation Clopidogrel Bisulfate (Clopidogrel Bisulfate 75 Mg Tablet) 75 mg PO DAILY [facility] Last Admin: 05/09/23 08:01 Dose: 75 mg Dextrose (Dextrose 50 % 25 Gm/50 Ml Syringe) 25 gm IVPUSH Q15M PRN; Protocol PRN Reason: per Hypoglycemia Standing Ord. Divalproex Sodium (Divalproex Sodium 250 Mg Tablet.) 250 mg PO DAILY [facility] Last Admin: 05/09/23 08:01 Dose: 250 mg Divalproex Sodium (Divalproex Sodium 500 Mg Tablet.) 500 mg PO BEDTIME [facility] Last Admin: 05/08/23 19:59 Dose: 500 mg Donepezil HCl (Donepezil Hcl 10 Mg Tablet) 10 mg PO BEDTIME [facility] Last Admin: 05/08/23 19:59 Dose: 10 mg Escitalopram Oxalate (Escitalopram Oxalate 10 Mg Tablet) 10 mg PO DAILY [facility] Last Admin: 05/09/23 08:01 Dose: 10 mg Gabapentin (Gabapentin 600 Mg Tablet) 600 mg PO DAILY@1300 [facility] Last Admin: 05/08/23 15:27 Dose: 600 mg Gabapentin (Gabapentin 400 Mg Capsule) 800 mg PO BEDTIME [facility] Last Admin: 05/08/23 19:58 Dose: 800 mg Glucagon (Glucagon Hcl 1 Mg Vial) 1 mg SUBCUT Q20M PRN PRN Reason: BG <70 AND UNRESPONSIVE Glucose (Glucose Gel 15 Gm Gel..Gram.) 15 gm PO Q15M PRN PRN Reason: BG <70 AND RESPONSIVE Last Admin: 01/30/23 03:12 Dose: 15 gm Glucose (Glucose Gel 15 Gm Gel..Gram.) 15 gm PO Q15M PRN; Protocol PRN Reason: per Hypoglycemia Standing Ord. Guaifenesin/Dextromethorphan (Guaifenesin Dm 200/20/10 Ml 10 Ml Syrup) 10 ml PO Q6H PRN PRN Reason: Cough Last Admin: 05/04/23 03:10 Dose: 10 ml Ibuprofen (Ibuprofen 400 Mg Tablet) 400 mg PO Q6H PRN PRN Reason: Pain, Moderate(Pain Scale 4-6) Last Admin: 05/08/23 21:50 Dose: 400 mg Insulin Glargine (Insulin Glargine,Hum.Rec.Anlog 100 Unit/Ml 10 Ml Vial) 50 unit SUBCUT BEDTIME [facility] Last Admin: 05/08/23 19:59 Dose: 50 unit Insulin Glargine (Insulin Glargine,Hum.Rec.Anlog 100 Unit/Ml 10 Ml Vial) 20 unit SUBCUT DAILY [facility] Last Admin: 05/09/23 08:02 Dose: 20 unit Insulin Human Lispro (Insulin Lispro 100 Unit/Ml 3 Ml Vial) 0 unit SUBCUT QIDACHS [facility]; Protocol Last Admin: 05/09/23 07:51 Dose: Not Given Levothyroxine Sodium (Levothyroxine Sodium 75 Mcg Tablet) 75 mcg PO DAILY@0630 [facility] Last Admin: 05/09/23 05:28 Dose: 75 mcg Lidocaine (Lidocaine 4 % Patch Adh..Patch) 1 patch TRANSDERMA DAILY [facility]; Protocol Last Admin: 05/09/23 08:01 Dose: 1 patch Loperamide HCl (Loperamide Hcl 2 Mg Capsule) 4 mg PO Q4H PRN PRN Reason: Diarrhea Last Admin: 05/07/23 04:30 Dose: 4 mg Magnesium Hydroxide (Milk Of Magnesia 30 Ml Oral.Susp) 30 ml PO DAILY PRN PRN Reason: Constipation Memantine (Memantine Hcl 10 Mg Tablet) 10 mg PO BID [facility] Last Admin: 05/09/23 08:01 Dose: 10 mg Metoprolol Tartrate (Metoprolol Tartrate 25 Mg Tablet) 25 mg PO DAILY [facility]; Protocol Last Admin: 05/09/23 08:01 Dose: 25 mg Pt Own Trulicity ( (Dulaglutide 0.75 Mg)) 0.75 mg SUBCUT Tu@1730 [facility] Last Admin: 05/06/23 18:58 Dose: Not Given Sodium Biphosphate/Sodium Phosphate (Sodium Phosphate,[place]-Dibasic 133 Ml Enema) 133 ml IN DAILY PRN PRN Reason: Constipation Trazodone HCl (Trazodone Hcl 50 Mg Tablet) 50 mg PO BEDTIME MRX1 PRN PRN Reason: Insomnia Last Admin: 05/09/23 00:36 Dose: 50 mg Valsartan (Valsartan 80 Mg Tablet) 80 mg PO BEDTIME [facility]; Protocol Last Admin: 05/08/23 19:58 Dose: 80 mg Allergies Allergies Allergy/AdvReac Type Severity Reaction Status Date / Time aspirin [ASPIRIN] Allergy Unknown UNKNOWN Verified 01/01/23 09:43 Assessment & Plan Assessment & Plan (1) Major neurocognitive disorder: Status: Acute Code(s): F03.90 - Unspecified dementia, unspecified severity, without behavioral disturbance, psychotic disturbance, mood disturbance, and anxiety (2) Mood disorder: Status: Acute Code(s): F39 - Unspecified mood [affective] disorder Plan 04/15 continue tx. reports PRESTON, given one time naproxen- has to limit use of NSAID as pt on plavix. 04/16 continue tx. 04/17 continue tx 04/18 continue tx. 04/19: stable. continue current mgmt. 04/21: stable. continue current mgmt. 04/22 continue tx. 04/23 continue tx. 04/24 continue tx. 04/25 some concern in terms of increase hypersexual behaviors. will restart risperidone 1mg po BID in addition to depakote. 04/26 taken off close obs- seems better on added risperidone less intrussive- 04/27 dx with covid last pm, doing ok today - not very symptomatic- and less manic no hypersexuality however patient has not been out in [facility] for a few days- 04/28/23 stabilizing- CTP 04/29 continue tx. 04/30 continue tx. 05/01 continue tx. 05/02 continue tx. 05/03/2023: Will increase nighttime gabapentin to 800 mg for sleep. 05/04/2023: Will continue to observe sleep with higher dose of gabapentin 05/05 continue tx. 05/06 continue tx. 05/07 pt stable. continue tx. 05/08 continue tx. 05/09 continue tx. Reason for continued inpatient stay Substantial Risk for: inability to function Time Spent With Patient Time: Total time managing care of this patient today ____ minutes.
[2023-05-09 11:50] LABS: Glucose, Whole Blood 253 mg/dL (60-115)
[2023-05-09] MEDS: Insulin Lispro 100 UNIT/ML 3 ML VIAL SUBCUT ×3 (12:18→20:34)
[2023-05-09 16:44] LABS: Glucose, Whole Blood 255 mg/dL (60-115)
[2023-05-09 18:00] VITALS: BP 153/68; PULSE 76; RESP 16; TEMP 35.9; O2SAT 98
[2023-05-09 20:12] LABS: Glucose, Whole Blood 242 mg/dL (60-115)
[2023-05-09] MEDS: Insulin Glargine,Hum.rec.anlog 100 UNIT/ML 10 ML VIAL 50 UNIT SUBCUT (20:34)
[2023-05-09] MEDS: Donepezil HCl 10 MG TABLET PO (20:36)
[2023-05-09] MEDS: Gabapentin 400 MG CAPSULE 800 MG PO (20:36)
[2023-05-09] MEDS: Divalproex Sodium 500 MG TABLET.DR PO (20:37)
[2023-05-09] MEDS: Valsartan 80 MG TABLET PO (20:37)
[2023-05-09] MEDS: Atorvastatin Calcium 20 MG TABLET PO (20:37)
[2023-05-10] MEDS: Ibuprofen 400 MG TABLET PO ×2 (04:24→17:45)
[2023-05-10 06:00] VITALS: BP 148/72; PULSE 83; RESP 16; TEMP 36.5; O2SAT 96
[2023-05-10] MEDS: Levothyroxine Sodium 75 MCG TABLET PO (06:03)
[2023-05-10 07:00] LABS: Glucose, Whole Blood 95 mg/dL (60-115)
--- NOTE | 2023-05-10 08:55 | HO.PSYCHPN ---
Subjective Subjective Date of Service: 05/10/23 Reason For Visit: Depression Subjective Notes: Conditional Voluntary Interim History: The nursing staff reported the patient was up late she uses Motrin p.r.n. pain. She is on 5 minutes checks. On interview the patient denies symptoms, waiting for placement. Mental Status Exam Mental Status Exam Patient Appearance: Appropriate Patient Orientation: Person Level of Consciousness: Awake Patient Behavior: Guarded and Passive Mood Description: Withdrawn Affect Description: Constricted Patient Cognition Impaired: Yes Ability to Follow Directions: Good Speech Pattern: Clear Hallucinations: None Delusions: Ideas of Reference Thought Process: Distracted and Linear Thought Content: positive for [place] and positive for Poverty of Content Judgement: Fair Diagnostics Vital Signs (24Hr): Vital Signs - 24 hr 05/09/23 18:00 Temperature 96.7 F L Pulse Rate 76 Respiratory Rate 16 Blood Pressure 153/68 H Pulse Oximetry 98 Oxygen Delivery Method Room Air BMI result Body Mass Index 28.4 Labs 01/07/23 17:49 01/07/23 17:49 Labs: Laboratory Results - last 48 hr 05/08/23 05/08/23 05/08/23 11:37 16:15 19:10 POC Glucose 277 H 273 H 297 H 05/09/23 05/09/23 05/09/23 06:08 11:45 16:40 POC Glucose 121 H 253 H 255 H 05/09/23 05/10/23 19:59 06:01 POC Glucose 242 H 95 Imaging Radiology Impressions: ITS Impressions Venous Duplex 01/30/23 16:02 IMPRESSION: No DVT demonstrated in the bilateral lower extremity. Knee X-Ray 04/13/23 16:15 IMPRESSION: Mild degenerative changes medial and patellofemoral compartment both knees. No visible acute fracture, dislocation or subluxation seen. Knee X-Ray 04/13/23 16:15 IMPRESSION: Mild degenerative changes medial and patellofemoral compartment both knees. No visible acute fracture, dislocation or subluxation seen. Medications Medications Current Medications Acetaminophen (Acetaminophen 325 Mg Tablet) 650 mg PO TID [facility] Last Admin: 05/09/23 20:35 Dose: 650 mg Artificial Tears (Artificial Tears 15 Ml Drops) 1 drop EYE-BOTH Q4H PRN PRN Reason: Dry Eyes Atorvastatin Calcium (Atorvastatin Calcium 20 Mg Tablet) 20 mg PO BEDTIME [facility] Last Admin: 01/12/24 20:37 Dose: 20 mg Bisacodyl (Bisacodyl 10 Mg Supp.Rect) 10 mg [place] DAILY PRN PRN Reason: Constipation Clopidogrel Bisulfate (Clopidogrel Bisulfate 75 Mg Tablet) 75 mg PO DAILY [facility] Last Admin: 05/09/23 08:01 Dose: 75 mg Dextrose (Dextrose 50 % 25 Gm/50 Ml Syringe) 25 gm IVPUSH Q15M PRN; Protocol PRN Reason: per Hypoglycemia Standing Ord. Divalproex Sodium (Divalproex Sodium 250 Mg Tablet.) 250 mg PO DAILY [facility] Last Admin: 05/09/23 08:01 Dose: 250 mg Divalproex Sodium (Divalproex Sodium 500 Mg Tablet.) 500 mg PO BEDTIME [facility] Last Admin: 05/09/23 20:37 Dose: 500 mg Donepezil HCl (Donepezil Hcl 10 Mg Tablet) 10 mg PO BEDTIME [facility] Last Admin: 05/09/23 20:36 Dose: 10 mg Escitalopram Oxalate (Escitalopram Oxalate 10 Mg Tablet) 10 mg PO DAILY [facility] Last Admin: 05/09/23 08:01 Dose: 10 mg Gabapentin (Gabapentin 600 Mg Tablet) 600 mg PO DAILY@1300 [facility] Last Admin: 05/08/23 15:27 Dose: 600 mg Gabapentin (Gabapentin 400 Mg Capsule) 800 mg PO BEDTIME [facility] Last Admin: 05/09/23 20:36 Dose: 800 mg Glucagon (Glucagon Hcl 1 Mg Vial) 1 mg SUBCUT Q20M PRN PRN Reason: BG <70 AND UNRESPONSIVE Glucose (Glucose Gel 15 Gm Gel..Gram.) 15 gm PO Q15M PRN PRN Reason: BG <70 AND RESPONSIVE Last Admin: 01/30/23 03:12 Dose: 15 gm Glucose (Glucose Gel 15 Gm Gel..Gram.) 15 gm PO Q15M PRN; Protocol PRN Reason: per Hypoglycemia Standing Ord. Guaifenesin/Dextromethorphan (Guaifenesin Dm 200/20/10 Ml 10 Ml Syrup) 10 ml PO Q6H PRN PRN Reason: Cough Last Admin: 05/04/23 03:10 Dose: 10 ml Ibuprofen (Ibuprofen 400 Mg Tablet) 400 mg PO Q6H PRN PRN Reason: Pain, Moderate(Pain Scale 4-6) Last Admin: 05/10/23 04:24 Dose: 400 mg Insulin Glargine (Insulin Glargine,Hum.Rec.Anlog 100 Unit/Ml 10 Ml Vial) 50 unit SUBCUT BEDTIME [facility] Last Admin: 05/09/23 20:34 Dose: 50 unit Insulin Glargine (Insulin Glargine,Hum.Rec.Anlog 100 Unit/Ml 10 Ml Vial) 20 unit SUBCUT DAILY [facility] Last Admin: 05/09/23 08:02 Dose: 20 unit Insulin Human Lispro (Insulin Lispro 100 Unit/Ml 3 Ml Vial) 0 unit SUBCUT QIDACHS [facility]; Protocol Last Admin: 05/09/23 20:34 Dose: 4 unit Levothyroxine Sodium (Levothyroxine Sodium 75 Mcg Tablet) 75 mcg PO DAILY@0630 [facility] Last Admin: 05/10/23 06:03 Dose: 75 mcg Lidocaine (Lidocaine 4 % Patch Adh..Patch) 1 patch TRANSDERMA DAILY [facility]; Protocol Last Admin: 05/09/23 08:01 Dose: 1 patch Loperamide HCl (Loperamide Hcl 2 Mg Capsule) 4 mg PO Q4H PRN PRN Reason: Diarrhea Last Admin: 05/07/23 04:30 Dose: 4 mg Magnesium Hydroxide (Milk Of Magnesia 30 Ml Oral.Susp) 30 ml PO DAILY PRN PRN Reason: Constipation Memantine (Memantine Hcl 10 Mg Tablet) 10 mg PO BID [facility] Last Admin: 05/09/23 20:37 Dose: 10 mg Metoprolol Tartrate (Metoprolol Tartrate 25 Mg Tablet) 25 mg PO DAILY [facility]; Protocol Last Admin: 05/09/23 08:01 Dose: 25 mg Pt Own Trulicity ( (Dulaglutide 0.75 Mg)) 0.75 mg SUBCUT Tu@1730 [facility] Last Admin: 05/06/23 18:58 Dose: Not Given Sodium Biphosphate/Sodium Phosphate (Sodium Phosphate,[place]-Dibasic 133 Ml Enema) 133 ml [place] DAILY PRN PRN Reason: Constipation Trazodone HCl (Trazodone Hcl 50 Mg Tablet) 50 mg PO BEDTIME MRX1 PRN PRN Reason: Insomnia Last Admin: 05/09/23 20:37 Dose: 50 mg Valsartan (Valsartan 80 Mg Tablet) 80 mg PO BEDTIME [facility]; Protocol Last Admin: 05/09/23 20:37 Dose: 80 mg Allergies Allergies Allergy/AdvReac Type Severity Reaction Status Date / Time aspirin [ASPIRIN] Allergy Unknown UNKNOWN Verified 01/01/23 09:43 Assessment & Plan Assessment & Plan (1) Major neurocognitive disorder: Status: Acute Code(s): F03.90 - Unspecified dementia, unspecified severity, without behavioral disturbance, psychotic disturbance, mood disturbance, and anxiety (2) Mood disorder: Status: Acute Code(s): F39 - Unspecified mood [affective] disorder Plan 04/15 continue tx. reports PRESTON, given one time naproxen- has to limit use of NSAID as pt on plavix. 04/16 continue tx. 04/17 continue tx 04/18 continue tx. 04/19: stable. continue current mgmt. 04/21: stable. continue current mgmt. 04/22 continue tx. 04/23 continue tx. 04/24 continue tx. 04/25 some concern in terms of increase hypersexual behaviors. will restart risperidone 1mg po BID in addition to depakote. 04/26 taken off close obs- seems better on added risperidone less intrussive- 04/27 dx with stephen last pm, doing ok today - not very symptomatic- and less manic no hypersexuality however patient has not been out in [facility] for a few days- 04/28/23 stabilizing- CTP 04/29 continue tx. 04/30 continue tx. 05/01 continue tx. 05/02 continue tx. 05/03/2023: Will increase nighttime gabapentin to 800 mg for sleep. 05/04/2023: Will continue to observe sleep with higher dose of gabapentin 05/05 continue tx. 05/06 continue tx. 05/07 pt stable. continue tx. 05/08 continue tx. 05/09 continue same treatment Reason for continued inpatient stay Substantial Risk for: inability to function, rapid decompensation and med/psych decompensation Time Spent With Patient Time: Total time managing care of this patient today __20__ minutes.
[2023-05-10] MEDS: Insulin Glargine,Hum.rec.anlog 100 UNIT/ML 10 ML VIAL 20 UNIT SUBCUT (09:32)
[2023-05-10] MEDS: Acetaminophen 325 MG TABLET 650 MG PO ×3 (09:33→20:38)
[2023-05-10] MEDS: Clopidogrel Bisulfate 75 MG TABLET PO (09:33)
[2023-05-10] MEDS: Memantine HCl 10 MG TABLET PO ×2 (09:33→20:39)
[2023-05-10] MEDS: Escitalopram Oxalate 10 MG TABLET PO (09:33)
[2023-05-10] MEDS: Divalproex Sodium 250 MG TABLET.DR PO (09:33)
[2023-05-10] MEDS: Metoprolol Tartrate 25 MG TABLET PO (09:33)
[2023-05-10] MEDS: Lidocaine 4 % Patch ADH..PATCH 1 PATCH TRANSDERMA (09:34)
[2023-05-10 11:25] LABS: Glucose, Whole Blood 346 mg/dL (60-115)
[2023-05-10] MEDS: Insulin Lispro 100 UNIT/ML 3 ML VIAL SUBCUT ×2 (11:32→17:03)
[2023-05-10] MEDS: Gabapentin 600 MG TABLET PO (14:29)
[2023-05-10 16:22] LABS: Glucose, Whole Blood 223 mg/dL (60-115)
[2023-05-10 18:00] VITALS: BP 169/76; PULSE 69; RESP 18; TEMP 36.2; O2SAT 97
[2023-05-10 20:08] LABS: Glucose, Whole Blood 146 mg/dL (60-115)
[2023-05-10] MEDS: Insulin Glargine,Hum.rec.anlog 100 UNIT/ML 10 ML VIAL 50 UNIT SUBCUT (20:38)
[2023-05-10] MEDS: Donepezil HCl 10 MG TABLET PO (20:39)
[2023-05-10] MEDS: Valsartan 80 MG TABLET PO (20:39)
[2023-05-10] MEDS: Atorvastatin Calcium 20 MG TABLET PO (20:39)
[2023-05-10] MEDS: Divalproex Sodium 500 MG TABLET.DR PO (20:39)
[2023-05-10] MEDS: Gabapentin 400 MG CAPSULE 800 MG PO (20:39)
[2023-05-10] MEDS: traZODone HCL 50 MG TABLET PO (22:30)
[2023-05-11] MEDS: Ibuprofen 400 MG TABLET PO ×2 (00:15→12:21)
[2023-05-11] MEDS: traZODone HCL 50 MG TABLET PO (00:16)
[2023-05-11 06:00] VITALS: BP 158/69; PULSE 82; RESP 16; TEMP 36.5; O2SAT 96
[2023-05-11] MEDS: Levothyroxine Sodium 75 MCG TABLET PO (06:00)
[2023-05-11 06:49] LABS: Glucose, Whole Blood 145 mg/dL (60-115)
[2023-05-11 06:49] LABS: Glucose, Whole Blood 64 mg/dL (60-115)
[2023-05-11] MEDS: Lidocaine 4 % Patch ADH..PATCH 1 PATCH TRANSDERMA (10:03)
[2023-05-11] MEDS: Insulin Glargine,Hum.rec.anlog 100 UNIT/ML 10 ML VIAL 20 UNIT SUBCUT (10:06)
[2023-05-11] MEDS: Acetaminophen 325 MG TABLET 650 MG PO ×3 (10:06→21:16)
[2023-05-11] MEDS: Metoprolol Tartrate 25 MG TABLET PO (10:07)
[2023-05-11] MEDS: Divalproex Sodium 250 MG TABLET.DR PO (10:07)
[2023-05-11] MEDS: Clopidogrel Bisulfate 75 MG TABLET PO (10:07)
[2023-05-11] MEDS: Memantine HCl 10 MG TABLET PO ×2 (10:07→21:17)
[2023-05-11] MEDS: Escitalopram Oxalate 10 MG TABLET PO (10:07)
--- NOTE | 2023-05-11 11:18 | P.PNPSI_ITS ---
Subjective Subjective Date of Service: 05/11/23 Reason For Visit: Depression Subjective Notes: Conditional Voluntary Interim History: The nursing staff reported the patient slept 6 hours no changes in her mental status. On interview the patient denies new symptoms pleasantly confused, easily redirectable. Waiting for placement. Mental Status Exam Mental Status Exam Patient Appearance: Well Grooomed and Appropriate Patient Orientation: Person and Situation Level of Consciousness: Awake and Appropriate Patient Behavior: Guarded and Passive Mood Description: Withdrawn Affect Description: Constricted Patient Cognition Impaired: Yes Ability to Follow Directions: Good Speech Pattern: Clear Hallucinations: None Delusions: Not Present Thought Process: Distracted and Slowed Thinking Thought Content: positive for Circumstantial Judgement: Fair Diagnostics Vital Signs (24Hr): Vital Signs - 24 hr 05/10/23 18:00 05/11/23 06:00 Temperature 97.2 F 97.7 F Pulse Rate 69 82 Respiratory Rate 18 16 Blood Pressure 169/76 H 158/69 H Pulse Oximetry 97 96 Oxygen Delivery Method Room Air Room Air BMI result Body Mass Index 28.4 Labs 01/07/23 17:49 01/07/23 17:49 Labs: Laboratory Results - last 48 hr 05/09/23 05/09/23 05/09/23 11:45 16:40 19:59 POC Glucose 253 H 255 H 242 H 05/10/23 05/10/23 05/10/23 06:01 11:20 15:59 POC Glucose 95 346 H 223 H 05/10/23 05/11/23 05/11/23 19:39 06:01 06:41 POC Glucose 146 H 64 145 H Imaging Radiology Impressions: ITS Impressions Venous Duplex 01/30/23 16:02 IMPRESSION: No DVT demonstrated in the bilateral lower extremity. Knee X-Ray 04/13/23 16:15 IMPRESSION: Mild degenerative changes medial and patellofemoral compartment both knees. No visible acute fracture, dislocation or subluxation seen. Knee X-Ray 04/13/23 16:15 IMPRESSION: Mild degenerative changes medial and patellofemoral compartment both knees. No visible acute fracture, dislocation or subluxation seen. Medications Medications Current Medications Acetaminophen (Acetaminophen 325 Mg Tablet) 650 mg PO TID [facility] Last Admin: 05/11/23 10:06 Dose: 650 mg Artificial Tears (Artificial Tears 15 Ml Drops) 1 drop EYE-BOTH Q4H PRN PRN Reason: Dry Eyes Atorvastatin Calcium (Atorvastatin Calcium 20 Mg Tablet) 20 mg PO BEDTIME [facility] Last Admin: 05/10/23 20:39 Dose: 20 mg Bisacodyl (Bisacodyl 10 Mg Supp.Rect) 10 mg [place] DAILY PRN PRN Reason: Constipation Clopidogrel Bisulfate (Clopidogrel Bisulfate 75 Mg Tablet) 75 mg PO DAILY [facility] Last Admin: 05/11/23 10:07 Dose: 75 mg Dextrose (Dextrose 50 % 25 Gm/50 Ml Syringe) 25 gm IVPUSH Q15M PRN; Protocol PRN Reason: per Hypoglycemia Standing Ord. Divalproex Sodium (Divalproex Sodium 250 Mg Tablet.) 250 mg PO DAILY [facility] Last Admin: 05/11/23 10:07 Dose: 250 mg Divalproex Sodium (Divalproex Sodium 500 Mg Tablet.) 500 mg PO BEDTIME [facility] Last Admin: 05/10/23 20:39 Dose: 500 mg Donepezil HCl (Donepezil Hcl 10 Mg Tablet) 10 mg PO BEDTIME [facility] Last Admin: 05/10/23 20:39 Dose: 10 mg Escitalopram Oxalate (Escitalopram Oxalate 10 Mg Tablet) 10 mg PO DAILY [facility] Last Admin: 05/11/23 10:07 Dose: 10 mg Gabapentin (Gabapentin 600 Mg Tablet) 600 mg PO DAILY@1300 [facility] Last Admin: 05/10/23 14:29 Dose: 600 mg Gabapentin (Gabapentin 400 Mg Capsule) 800 mg PO BEDTIME [facility] Last Admin: 05/10/23 20:39 Dose: 800 mg Glucagon (Glucagon Hcl 1 Mg Vial) 1 mg SUBCUT Q20M PRN PRN Reason: BG <70 AND UNRESPONSIVE Glucose (Glucose Gel 15 Gm Gel..Gram.) 15 gm PO Q15M PRN PRN Reason: BG <70 AND RESPONSIVE Last Admin: 01/30/23 03:12 Dose: 15 gm Glucose (Glucose Gel 15 Gm Gel..Gram.) 15 gm PO Q15M PRN; Protocol PRN Reason: per Hypoglycemia Standing Ord. Guaifenesin/Dextromethorphan (Guaifenesin Dm 200/20/10 Ml 10 Ml Syrup) 10 ml PO Q6H PRN PRN Reason: Cough Last Admin: 05/04/23 03:10 Dose: 10 ml Ibuprofen (Ibuprofen 400 Mg Tablet) 400 mg PO Q6H PRN PRN Reason: Pain, Moderate(Pain Scale 4-6) Last Admin: 05/11/23 00:15 Dose: 400 mg Insulin Glargine (Insulin Glargine,Hum.Rec.Anlog 100 Unit/Ml 10 Ml Vial) 50 unit SUBCUT BEDTIME [facility] Last Admin: 05/10/23 20:38 Dose: 50 unit Insulin Glargine (Insulin Glargine,Hum.Rec.Anlog 100 Unit/Ml 10 Ml Vial) 20 unit SUBCUT DAILY [facility] Last Admin: 05/11/23 10:06 Dose: 20 unit Insulin Human Lispro (Insulin Lispro 100 Unit/Ml 3 Ml Vial) 0 unit SUBCUT QIDACHS [facility]; Protocol Last Admin: 05/11/23 08:34 Dose: Not Given Levothyroxine Sodium (Levothyroxine Sodium 75 Mcg Tablet) 75 mcg PO DAILY@0630 [facility] Last Admin: 05/11/23 06:00 Dose: 75 mcg Lidocaine (Lidocaine 4 % Patch Adh..Patch) 1 patch TRANSDERMA DAILY [facility]; Protocol Last Admin: 05/11/23 10:03 Dose: 1 patch Loperamide HCl (Loperamide Hcl 2 Mg Capsule) 4 mg PO Q4H PRN PRN Reason: Diarrhea Last Admin: 05/07/23 04:30 Dose: 4 mg Magnesium Hydroxide (Milk Of Magnesia 30 Ml Oral.Susp) 30 ml PO DAILY PRN PRN Reason: Constipation Memantine (Memantine Hcl 10 Mg Tablet) 10 mg PO BID [facility] Last Admin: 05/11/23 10:07 Dose: 10 mg Metoprolol Tartrate (Metoprolol Tartrate 25 Mg Tablet) 25 mg PO DAILY [facility]; Protocol Last Admin: 05/11/23 10:07 Dose: 25 mg Pt Own Trulicity ( (Dulaglutide 0.75 Mg)) 0.75 mg SUBCUT Tu@1730 [facility] Last Admin: 05/06/23 18:58 Dose: Not Given Sodium Biphosphate/Sodium Phosphate (Sodium Phosphate,[place]-Dibasic 133 Ml Enema) 133 ml [place] DAILY PRN PRN Reason: Constipation Trazodone HCl (Trazodone Hcl 50 Mg Tablet) 50 mg PO BEDTIME MRX1 PRN PRN Reason: Insomnia Last Admin: 05/11/23 00:16 Dose: 50 mg Valsartan (Valsartan 80 Mg Tablet) 80 mg PO BEDTIME [facility]; Protocol Last Admin: 05/10/23 20:39 Dose: 80 mg Allergies Allergies Allergy/AdvReac Type Severity Reaction Status Date / Time aspirin [ASPIRIN] Allergy Unknown UNKNOWN Verified 01/01/23 09:43 Assessment & Plan Assessment & Plan (1) Major neurocognitive disorder: Status: Acute Code(s): F03.90 - Unspecified dementia, unspecified severity, without behavioral disturbance, psychotic disturbance, mood disturbance, and anxiety (2) Mood disorder: Status: Acute Code(s): F39 - Unspecified mood [affective] disorder Plan 04/15 continue tx. reports PRESTON, given one time naproxen- has to limit use of NSAID as pt on plavix. 04/16 continue tx. 04/17 continue tx 04/18 continue tx. 04/19: stable. continue current mgmt. 04/21: stable. continue current mgmt. 04/22 continue tx. 04/23 continue tx. 04/24 continue tx. 04/25 some concern in terms of increase hypersexual behaviors. will restart risperidone 1mg po BID in addition to depakote. 04/26 taken off close obs- seems better on added risperidone less intrussive- 04/27 dx with covid last pm, doing ok today - not very symptomatic- and less manic no hypersexuality however patient has not been out in [facility] for a few days- 04/28/23 stabilizing- CTP 04/29 continue tx. 04/30 continue tx. 05/01 continue tx. 05/02 continue tx. 05/03/2023: Will increase nighttime gabapentin to 800 mg for sleep. 05/04/2023: Will continue to observe sleep with higher dose of gabapentin 05/05 continue tx. 05/06 continue tx. 05/07 pt stable. continue tx. 05/08 continue tx. 05/09 continue same treatment 05/10 continue same treatment. 03/11 continue same treatment Reason for continued inpatient stay Substantial Risk for: inability to function, rapid decompensation and med/psych decompensation Time Spent With Patient Time: Total time managing care of this patient today __20__ minutes.
[2023-05-11 11:36] LABS: Glucose, Whole Blood 309 mg/dL (60-115)
[2023-05-11] MEDS: Insulin Lispro 100 UNIT/ML 3 ML VIAL SUBCUT ×3 (11:41→21:24)
[2023-05-11] MEDS: Gabapentin 600 MG TABLET PO (12:21)
[2023-05-11 16:17] LABS: Glucose, Whole Blood 202 mg/dL (60-115)
[2023-05-11 18:00] VITALS: BP 148/67; PULSE 66; RESP 16; TEMP 36.8; O2SAT 97
[2023-05-11 20:50] LABS: Glucose, Whole Blood 275 mg/dL (60-115)
[2023-05-11] MEDS: Atorvastatin Calcium 20 MG TABLET PO (21:16)
[2023-05-11] MEDS: Donepezil HCl 10 MG TABLET PO (21:17)
[2023-05-11] MEDS: Gabapentin 400 MG CAPSULE 800 MG PO (21:17)
[2023-05-11] MEDS: Valsartan 80 MG TABLET PO (21:17)
[2023-05-11] MEDS: Insulin Glargine,Hum.rec.anlog 100 UNIT/ML 10 ML VIAL 50 UNIT SUBCUT (21:26)
[2023-05-11] MEDS: Divalproex Sodium 500 MG TABLET.DR PO (21:35)
[2023-05-12] MEDS: traZODone HCL 50 MG TABLET PO (01:51)
[2023-05-12] MEDS: Levothyroxine Sodium 75 MCG TABLET PO (06:00)
[2023-05-12 06:06] LABS: Glucose, Whole Blood 186 mg/dL (60-115)
[2023-05-12 07:55] VITALS: BP 132/64; PULSE 77; RESP 18; TEMP 36.2; O2SAT 97
[2023-05-12] MEDS: Insulin Glargine,Hum.rec.anlog 100 UNIT/ML 10 ML VIAL 20 UNIT SUBCUT (08:18)
[2023-05-12] MEDS: Insulin Lispro 100 UNIT/ML 3 ML VIAL SUBCUT ×4 (08:18→20:24)
[2023-05-12] MEDS: Escitalopram Oxalate 10 MG TABLET PO (08:19)
[2023-05-12] MEDS: Acetaminophen 325 MG TABLET 650 MG PO ×2 (08:19→20:23)
[2023-05-12] MEDS: Metoprolol Tartrate 25 MG TABLET PO (08:19)
[2023-05-12] MEDS: Clopidogrel Bisulfate 75 MG TABLET PO (08:19)
[2023-05-12] MEDS: Divalproex Sodium 250 MG TABLET.DR PO (08:19)
[2023-05-12] MEDS: Memantine HCl 10 MG TABLET PO ×2 (08:20→20:24)
[2023-05-12] MEDS: Lidocaine 4 % Patch ADH..PATCH 1 PATCH TRANSDERMA (08:26)
--- NOTE | 2023-05-12 09:27 | P.PNPSI_ITS ---
Subjective Subjective Date of Service: 05/12/23 Reason For Visit: Depression Subjective Notes: Conditional Voluntary Interim History: Pt slept through the night. She reports feeling well. No SI/HI. Ambulating with walker. Chronic neck, leg pains. No behavioral concerns. takes meds as prescribed. Review of Systems Review of Systems Unremarkable -recovering from COVID Yes all other systems are reviewed and are negative Mental Status Exam Mental Status Exam Narrative: Appearance: Casual attire, good hygiene, Behavior: cooperative, calm Psychomotor: no agitation noted Speech: clear, normal rate/rhythm/volume, spontaneous TP: linear Mood: good Affect: congruent, bright VH/AH: none expressed Delusions: none expressed Insight/judgment: fair x 2. Memory/cog: alert, oriented x 3. Diagnostics Vital Signs (24Hr): Vital Signs - 24 hr 05/11/23 18:00 Temperature 98.2 F Pulse Rate 66 Respiratory Rate 16 Blood Pressure 148/67 H Pulse Oximetry 97 Oxygen Delivery Method Room Air BMI result Body Mass Index 28.4 Labs 01/07/23 17:49 01/07/23 17:49 Labs: Laboratory Results - last 48 hr 05/10/23 05/10/23 05/10/23 11:20 15:59 19:39 POC Glucose 346 H 223 H 146 H 05/11/23 05/11/23 05/11/23 06:01 06:41 11:32 POC Glucose 64 145 H 309 H 05/11/23 05/11/23 05/12/23 16:13 19:39 05:59 POC Glucose 202 H 275 H 186 H Imaging Radiology Impressions: ITS Impressions Venous Duplex 01/30/23 16:02 IMPRESSION: No DVT demonstrated in the bilateral lower extremity. Knee X-Ray 04/13/23 16:15 IMPRESSION: Mild degenerative changes medial and patellofemoral compartment both knees. No visible acute fracture, dislocation or subluxation seen. Knee X-Ray 04/13/23 16:15 IMPRESSION: Mild degenerative changes medial and patellofemoral compartment both knees. No visible acute fracture, dislocation or subluxation seen. Medications Medications Current Medications Acetaminophen (Acetaminophen 325 Mg Tablet) 650 mg PO TID [facility] Last Admin: 05/12/23 08:19 Dose: 650 mg Artificial Tears (Artificial Tears 15 Ml Drops) 1 drop EYE-BOTH Q4H PRN PRN Reason: Dry Eyes Atorvastatin Calcium (Atorvastatin Calcium 20 Mg Tablet) 20 mg PO BEDTIME [facility] Last Admin: 05/11/23 21:16 Dose: 20 mg Bisacodyl (Bisacodyl 10 Mg Supp.Rect) 10 mg [place] DAILY PRN PRN Reason: Constipation Clopidogrel Bisulfate (Clopidogrel Bisulfate 75 Mg Tablet) 75 mg PO DAILY [facility] Last Admin: 05/12/23 08:19 Dose: 75 mg Dextrose (Dextrose 50 % 25 Gm/50 Ml Syringe) 25 gm IVPUSH Q15M PRN; Protocol PRN Reason: per Hypoglycemia Standing Ord. Divalproex Sodium (Divalproex Sodium 250 Mg Tablet.) 250 mg PO DAILY [facility] Last Admin: 05/12/23 08:19 Dose: 250 mg Divalproex Sodium (Divalproex Sodium 500 Mg Tablet.) 500 mg PO BEDTIME [facility] Last Admin: 05/11/23 21:35 Dose: 500 mg Donepezil HCl (Donepezil Hcl 10 Mg Tablet) 10 mg PO BEDTIME [facility] Last Admin: 05/11/23 21:17 Dose: 10 mg Escitalopram Oxalate (Escitalopram Oxalate 10 Mg Tablet) 10 mg PO DAILY [facility] Last Admin: 05/12/23 08:19 Dose: 10 mg Gabapentin (Gabapentin 600 Mg Tablet) 600 mg PO DAILY@1300 [facility] Last Admin: 05/11/23 12:21 Dose: 600 mg Gabapentin (Gabapentin 400 Mg Capsule) 800 mg PO BEDTIME [facility] Last Admin: 05/11/23 21:17 Dose: 800 mg Glucagon (Glucagon Hcl 1 Mg Vial) 1 mg SUBCUT Q20M PRN PRN Reason: BG <70 AND UNRESPONSIVE Glucose (Glucose Gel 15 Gm Gel..Gram.) 15 gm PO Q15M PRN PRN Reason: BG <70 AND RESPONSIVE Last Admin: 01/30/23 03:12 Dose: 15 gm Glucose (Glucose Gel 15 Gm Gel..Gram.) 15 gm PO Q15M PRN; Protocol PRN Reason: per Hypoglycemia Standing Ord. Guaifenesin/Dextromethorphan (Guaifenesin Dm 200/20/10 Ml 10 Ml Syrup) 10 ml PO Q6H PRN PRN Reason: Cough Last Admin: 05/04/23 03:10 Dose: 10 ml Ibuprofen (Ibuprofen 400 Mg Tablet) 400 mg PO Q6H PRN PRN Reason: Pain, Moderate(Pain Scale 4-6) Last Admin: 05/11/23 12:21 Dose: 400 mg Insulin Glargine (Insulin Glargine,Hum.Rec.Anlog 100 Unit/Ml 10 Ml Vial) 50 unit SUBCUT BEDTIME [facility] Last Admin: 05/11/23 21:26 Dose: 50 unit Insulin Glargine (Insulin Glargine,Hum.Rec.Anlog 100 Unit/Ml 10 Ml Vial) 20 unit SUBCUT DAILY [facility] Last Admin: 05/12/23 08:18 Dose: 20 unit Insulin Human Lispro (Insulin Lispro 100 Unit/Ml 3 Ml Vial) 0 unit SUBCUT QIDACHS [facility]; Protocol Last Admin: 05/12/23 08:18 Dose: 2 unit Levothyroxine Sodium (Levothyroxine Sodium 75 Mcg Tablet) 75 mcg PO DAILY@0630 [facility] Last Admin: 05/12/23 06:00 Dose: 75 mcg Lidocaine (Lidocaine 4 % Patch Adh..Patch) 1 patch TRANSDERMA DAILY [facility]; Protocol Last Admin: 05/12/23 08:26 Dose: 1 patch Loperamide HCl (Loperamide Hcl 2 Mg Capsule) 4 mg PO Q4H PRN PRN Reason: Diarrhea Last Admin: 05/07/23 04:30 Dose: 4 mg Magnesium Hydroxide (Milk Of Magnesia 30 Ml Oral.Susp) 30 ml PO DAILY PRN PRN Reason: Constipation Memantine (Memantine Hcl 10 Mg Tablet) 10 mg PO BID [facility] Last Admin: 05/12/23 08:20 Dose: 10 mg Metoprolol Tartrate (Metoprolol Tartrate 25 Mg Tablet) 25 mg PO DAILY [facility]; Protocol Last Admin: 05/12/23 08:19 Dose: 25 mg Pt Own Trulicity ( (Dulaglutide 0.75 Mg)) 0.75 mg SUBCUT @1730 [facility] Last Admin: 05/06/23 18:58 Dose: Not Given Sodium Biphosphate/Sodium Phosphate (Sodium Phosphate,[place]-Dibasic 133 Ml Enema) 133 ml [place] DAILY PRN PRN Reason: Constipation Trazodone HCl (Trazodone Hcl 50 Mg Tablet) 50 mg PO BEDTIME MRX1 PRN PRN Reason: Insomnia Last Admin: 05/12/23 01:51 Dose: 50 mg Valsartan (Valsartan 80 Mg Tablet) 80 mg PO BEDTIME [facility]; Protocol Last Admin: 05/11/23 21:17 Dose: 80 mg Allergies Allergies Allergy/AdvReac Type Severity Reaction Status Date / Time aspirin [ASPIRIN] Allergy Unknown UNKNOWN Verified 01/01/23 09:43 Assessment & Plan Assessment & Plan (1) Major neurocognitive disorder: Status: Acute Code(s): F03.90 - Unspecified dementia, unspecified severity, without behavioral disturbance, psychotic disturbance, mood disturbance, and anxiety (2) Mood disorder: Status: Acute Code(s): F39 - Unspecified mood [affective] disorder Plan 04/15 continue tx. reports PRESTON, given one time naproxen- has to limit use of NSAID as pt on plavix. 04/16 continue tx. 04/17 continue tx 04/18 continue tx. 04/19: stable. continue current mgmt. 04/21: stable. continue current mgmt. 04/22 continue tx. 04/23 continue tx. 04/24 continue tx. 04/25 some concern in terms of increase hypersexual behaviors. will restart risperidone 1mg po BID in addition to depakote. 04/26 taken off close obs- seems better on added risperidone less intrussive- 04/27 dx with covid last pm, doing ok today - not very symptomatic- and less manic no hypersexuality however patient [facility] not [facility] a few days- 04/28/23 stabilizing- CTP 04/29 continue tx. 04/30 continue tx. 05/01 continue tx. 05/02 continue tx. 05/03/2023: Will increase nighttime gabapentin to 800 mg for sleep. 05/04/2023: Will continue to observe sleep with higher dose of gabapentin 05/05 continue tx. 05/06 continue tx. 05/07 pt stable. continue tx. 05/08 continue tx. 05/09 continue same treatment 05/10 continue same treatment. 03/11 continue same treatment 03/12 continue tx. Reason for continued inpatient stay Substantial Risk for: inability to function Time Spent With Patient Time: Total time managing care of this patient today ____ minutes.
[2023-05-12 11:36] LABS: Glucose, Whole Blood 200 mg/dL (60-115)
[2023-05-12] MEDS: Gabapentin 600 MG TABLET PO (13:28)
[2023-05-12 16:28] LABS: Glucose, Whole Blood 217 mg/dL (60-115)
[2023-05-12 20:00] LABS: Glucose, Whole Blood 227 mg/dL (60-115)
[2023-05-12 20:21] VITALS: BP 148/68; PULSE 74; RESP 18; TEMP 36.6; O2SAT 96
[2023-05-12] MEDS: Valsartan 80 MG TABLET PO (20:23)
[2023-05-12] MEDS: Atorvastatin Calcium 20 MG TABLET PO (20:23)
[2023-05-12] MEDS: Gabapentin 400 MG CAPSULE 800 MG PO (20:23)
[2023-05-12] MEDS: Donepezil HCl 10 MG TABLET PO (20:24)
[2023-05-12] MEDS: Insulin Glargine,Hum.rec.anlog 100 UNIT/ML 10 ML VIAL 50 UNIT SUBCUT (20:24)
[2023-05-12] MEDS: Divalproex Sodium 500 MG TABLET.DR PO (20:24)
--- NOTE | 2023-05-13 00:10 | PC.NURSE ---
Assumed care of patient 05/12 at 19:00. See shift assessments and EMAR for full details. Handoff report given to oncoming RN 23:00.
[2023-05-13] MEDS: traZODone HCL 50 MG TABLET PO ×3 (02:29→23:55)
[2023-05-13] MEDS: Levothyroxine Sodium 75 MCG TABLET PO (06:38)
[2023-05-13 06:44] LABS: Glucose, Whole Blood 72 mg/dL (60-115)
[2023-05-13 07:55] VITALS: BP 158/76; PULSE 76; RESP 18; TEMP 36.8; O2SAT 98
[2023-05-13] MEDS: Lidocaine 4 % Patch ADH..PATCH 1 PATCH TRANSDERMA (08:36)
[2023-05-13] MEDS: Memantine HCl 10 MG TABLET PO ×2 (08:37→20:32)
[2023-05-13] MEDS: Escitalopram Oxalate 10 MG TABLET PO (08:37)
[2023-05-13] MEDS: Insulin Glargine,Hum.rec.anlog 100 UNIT/ML 10 ML VIAL 20 UNIT SUBCUT (08:37)
[2023-05-13] MEDS: Acetaminophen 325 MG TABLET 650 MG PO ×2 (08:37→20:32)
[2023-05-13] MEDS: Clopidogrel Bisulfate 75 MG TABLET PO (08:37)
[2023-05-13] MEDS: Metoprolol Tartrate 25 MG TABLET PO (08:37)
[2023-05-13] MEDS: Divalproex Sodium 250 MG TABLET.DR PO (08:37)
--- NOTE | 2023-05-13 09:09 | HO.PSYCHPN ---
Subjective Subjective Date of Service: 05/13/23 Reason For Visit: Depression Subjective Notes: Conditional Voluntary Interim History: Pt slept through the night. She reports feeling well. No SI/HI. Ambulating with walker. Chronic neck, leg pains. No behavioral concerns. takes meds as prescribed. Review of Systems Review of Systems Unremarkable -recovering from COVID Yes all other systems are reviewed and are negative Mental Status Exam Mental Status Exam Narrative: Appearance: Casual attire, good hygiene, Behavior: cooperative, calm Psychomotor: no agitation noted Speech: clear, normal rate/rhythm/volume, spontaneous TP: linear Mood: good Affect: congruent, bright VH/AH: none expressed Delusions: none expressed Insight/judgment: fair x 2. Memory/cog: alert, oriented x 3. Diagnostics Vital Signs (24Hr): Vital Signs - 24 hr 05/12/23 20:21 Temperature 97.8 F Pulse Rate 74 Respiratory Rate 18 Blood Pressure 148/68 H Pulse Oximetry 96 Oxygen Delivery Method Room Air BMI result Body Mass Index 28.4 Labs 01/07/23 17:49 01/07/23 17:49 Labs: Laboratory Results - last 48 hr 05/11/23 05/11/23 05/11/23 11:32 16:13 19:39 POC Glucose 309 H 202 H 275 H 05/12/23 05/12/23 05/12/23 05:59 11:32 16:16 POC Glucose 186 H 200 H 217 H 05/12/23 05/13/23 19:56 06:24 POC Glucose 227 H 72 Imaging Radiology Impressions: ITS Impressions Venous Duplex 01/30/23 16:02 IMPRESSION: No DVT demonstrated in the bilateral lower extremity. Knee X-Ray 04/13/23 16:15 IMPRESSION: Mild degenerative changes medial and patellofemoral compartment both knees. No visible acute fracture, dislocation or subluxation seen. Knee X-Ray 04/13/23 16:15 IMPRESSION: Mild degenerative changes medial and patellofemoral compartment both knees. No visible acute fracture, dislocation or subluxation seen. Medications Medications Current Medications Acetaminophen (Acetaminophen 325 Mg Tablet) 650 mg PO TID [facility] Last Admin: 05/13/23 08:37 Dose: 650 mg Artificial Tears (Artificial Tears 15 Ml Drops) 1 drop EYE-BOTH Q4H PRN PRN Reason: Dry Eyes Atorvastatin Calcium (Atorvastatin Calcium 20 Mg Tablet) 20 mg PO BEDTIME [facility] Last Admin: 05/12/23 20:23 Dose: 20 mg Bisacodyl (Bisacodyl 10 Mg Supp.Rect) 10 mg UT DAILY PRN PRN Reason: Constipation Clopidogrel Bisulfate (Clopidogrel Bisulfate 75 Mg Tablet) 75 mg PO DAILY [facility] Last Admin: 05/13/23 08:37 Dose: 75 mg Dextrose (Dextrose 50 % 25 Gm/50 Ml Syringe) 25 gm IVPUSH Q15M PRN; Protocol PRN Reason: per Hypoglycemia Standing Ord. Divalproex Sodium (Divalproex Sodium 250 Mg Tablet.) 250 mg PO DAILY [facility] Last Admin: 05/13/23 08:37 Dose: 250 mg Divalproex Sodium (Divalproex Sodium 500 Mg Tablet.) 500 mg PO BEDTIME [facility] Last Admin: 05/12/23 20:24 Dose: 500 mg Donepezil HCl (Donepezil Hcl 10 Mg Tablet) 10 mg PO BEDTIME [facility] Last Admin: 05/12/23 20:24 Dose: 10 mg Escitalopram Oxalate (Escitalopram Oxalate 10 Mg Tablet) 10 mg PO DAILY [facility] Last Admin: 05/13/23 08:37 Dose: 10 mg Gabapentin (Gabapentin 600 Mg Tablet) 600 mg PO DAILY@1300 [facility] Last Admin: 05/12/23 13:28 Dose: 600 mg Gabapentin (Gabapentin 400 Mg Capsule) 800 mg PO BEDTIME [facility] Last Admin: 05/12/23 20:23 Dose: 800 mg Glucagon (Glucagon Hcl 1 Mg Vial) 1 mg SUBCUT Q20M PRN PRN Reason: BG <70 AND UNRESPONSIVE Glucose (Glucose Gel 15 Gm Gel..Gram.) 15 gm PO Q15M PRN PRN Reason: BG <70 AND RESPONSIVE Last Admin: 01/30/23 03:12 Dose: 15 gm Glucose (Glucose Gel 15 Gm Gel..Gram.) 15 gm PO Q15M PRN; Protocol PRN Reason: per Hypoglycemia Standing Ord. Guaifenesin/Dextromethorphan (Guaifenesin Dm 200/20/10 Ml 10 Ml Syrup) 10 ml PO Q6H PRN PRN Reason: Cough Last Admin: 05/04/23 03:10 Dose: 10 ml Ibuprofen (Ibuprofen 400 Mg Tablet) 400 mg PO Q6H PRN PRN Reason: Pain, Moderate(Pain Scale 4-6) Last Admin: 05/11/23 12:21 Dose: 400 mg Insulin Glargine (Insulin Glargine,Hum.Rec.Anlog 100 Unit/Ml 10 Ml Vial) 50 unit SUBCUT BEDTIME [facility] Last Admin: 05/12/23 20:24 Dose: 50 unit Insulin Glargine (Insulin Glargine,Hum.Rec.Anlog 100 Unit/Ml 10 Ml Vial) 20 unit SUBCUT DAILY [facility] Last Admin: 05/13/23 08:37 Dose: 20 unit Insulin Human Lispro (Insulin Lispro 100 Unit/Ml 3 Ml Vial) 0 unit SUBCUT QIDACHS [facility]; Protocol Last Admin: 05/13/23 06:48 Dose: Not Given Levothyroxine Sodium (Levothyroxine Sodium 75 Mcg Tablet) 75 mcg PO DAILY@0630 [facility] Last Admin: 05/13/23 06:38 Dose: 75 mcg Lidocaine (Lidocaine 4 % Patch Adh..Patch) 1 patch TRANSDERMA DAILY [facility]; Protocol Last Admin: 05/13/23 08:36 Dose: 1 patch Loperamide HCl (Loperamide Hcl 2 Mg Capsule) 4 mg PO Q4H PRN PRN Reason: Diarrhea Last Admin: 05/07/23 04:30 Dose: 4 mg Magnesium Hydroxide (Milk Of Magnesia 30 Ml Oral.Susp) 30 ml PO DAILY PRN PRN Reason: Constipation Memantine (Memantine Hcl 10 Mg Tablet) 10 mg PO BID [facility] Last Admin: 05/13/23 08:37 Dose: 10 mg Metoprolol Tartrate (Metoprolol Tartrate 25 Mg Tablet) 25 mg PO DAILY [facility]; Protocol Last Admin: 05/13/23 08:37 Dose: 25 mg Pt Own Trulicity ( (Dulaglutide 0.75 Mg)) 0.75 mg SUBCUT Tu@4940 [facility] Last Admin: 05/06/23 18:58 Dose: Not Given Sodium Biphosphate/Sodium Phosphate (Sodium Phosphate,[place]-Dibasic 133 Ml Enema) 133 ml UT DAILY PRN PRN Reason: Constipation Trazodone HCl (Trazodone Hcl 50 Mg Tablet) 50 mg PO BEDTIME MRX1 PRN PRN Reason: Insomnia Last Admin: 05/13/23 02:29 Dose: 50 mg Valsartan (Valsartan 80 Mg Tablet) 80 mg PO BEDTIME [facility]; Protocol Last Admin: 05/12/23 20:23 Dose: 80 mg Allergies Allergies Allergy/AdvReac Type Severity Reaction Status Date / Time aspirin [ASPIRIN] Allergy Unknown UNKNOWN Verified 01/01/23 09:43 Assessment & Plan Assessment & Plan (1) Major neurocognitive disorder: Status: Acute Code(s): F03.90 - Unspecified dementia, unspecified severity, without behavioral disturbance, psychotic disturbance, mood disturbance, and anxiety (2) Mood disorder: Status: Acute Code(s): F39 - Unspecified mood [affective] disorder Plan 04/15 continue tx. reports PRESTON, given one time naproxen- has to limit use of NSAID as pt on plavix. 04/16 continue tx. 04/17 continue tx 04/18 continue tx. 04/19: stable. continue current mgmt. 04/21: stable. continue current mgmt. 04/22 continue tx. 04/23 continue tx. 04/24 continue tx. 04/25 some concern in terms of increase hypersexual behaviors. will restart risperidone 1mg po BID in addition to depakote. 04/26 taken off close obs- seems better on added risperidone less intrussive- 04/27 dx with covid last pm, doing ok today - not very symptomatic- and less manic no hypersexuality however patient has not been out in [facility] for a few days- 04/28/23 stabilizing- CTP 04/29 continue tx. 04/30 continue tx. 05/01 continue tx. 05/02 continue tx. 05/03/2023: Will increase nighttime gabapentin to 800 mg for sleep. 05/04/2023: Will continue to observe sleep with higher dose of gabapentin 05/05 continue tx. 05/06 continue tx. 05/07 pt stable. continue tx. 05/08 continue tx. 05/09 continue same treatment 05/10 continue same treatment. 05/11 continue same treatment 05/12 continue tx. 05/13 continue tx. Reason for continued inpatient stay Substantial Risk for: inability to function Time Spent With Patient Time: Total time managing care of this patient today ____ minutes.
[2023-05-13 11:23] LABS: Glucose, Whole Blood 216 mg/dL (60-115)
[2023-05-13] MEDS: Insulin Lispro 100 UNIT/ML 3 ML VIAL SUBCUT ×3 (11:31→20:33)
[2023-05-13] MEDS: Gabapentin 600 MG TABLET PO (13:31)
[2023-05-13 16:26] LABS: Glucose, Whole Blood 220 mg/dL (60-115)
[2023-05-13 19:46] LABS: Glucose, Whole Blood 288 mg/dL (60-115)
[2023-05-13 20:09] VITALS: BP 152/75; PULSE 70; RESP 17; TEMP 36.5; O2SAT 95
[2023-05-13] MEDS: Donepezil HCl 10 MG TABLET PO (20:32)
[2023-05-13] MEDS: Valsartan 80 MG TABLET PO (20:32)
[2023-05-13] MEDS: Divalproex Sodium 500 MG TABLET.DR PO (20:32)
[2023-05-13] MEDS: Gabapentin 400 MG CAPSULE 800 MG PO (20:32)
[2023-05-13] MEDS: Atorvastatin Calcium 20 MG TABLET PO (20:32)
[2023-05-13] MEDS: Insulin Glargine,Hum.rec.anlog 100 UNIT/ML 10 ML VIAL 50 UNIT SUBCUT (20:33)
[2023-05-13] MEDS: Ibuprofen 400 MG TABLET PO (23:55)
[2023-05-14] MEDS: Levothyroxine Sodium 75 MCG TABLET PO (05:45)
[2023-05-14 06:03] LABS: Glucose, Whole Blood 96 mg/dL (60-115)
[2023-05-14] MEDS: Lidocaine 4 % Patch ADH..PATCH 1 PATCH TRANSDERMA (08:07)
[2023-05-14] MEDS: Escitalopram Oxalate 10 MG TABLET PO (08:07)
[2023-05-14] MEDS: Acetaminophen 325 MG TABLET 650 MG PO (08:07)
[2023-05-14] MEDS: Divalproex Sodium 250 MG TABLET.DR PO (08:08)
[2023-05-14] MEDS: Insulin Glargine,Hum.rec.anlog 100 UNIT/ML 10 ML VIAL 20 UNIT SUBCUT (08:08)
[2023-05-14] MEDS: Metoprolol Tartrate 25 MG TABLET PO (08:08)
[2023-05-14] MEDS: Memantine HCl 10 MG TABLET PO (08:08)
[2023-05-14] MEDS: Clopidogrel Bisulfate 75 MG TABLET PO (08:08)
--- NOTE | 2023-05-14 09:03 | PM.PSYDC ---
DS: Providers Provider Date of Service: 05/14/23 Date of admission: 01/08/23 18:18 Date of discharge: 05/14/23 Primary care physician: Unknown Physician Admitting clinician: Tanya Perez Consults: 01/23/23 17:35 Consult to Hospitalist Routine Comment: Consulting Provider: Hospitalist Reason For Exam: diabetes med management for chronic hyperglycemia 02/05/23 08:42 Consult to Hospitalist Routine Comment: Consulting Provider: Hospitalist Reason For Exam: bilat LE pain, no dvt, 04/13/23 13:35 Consult to Hospitalist Routine Comment: Consulting Provider: Hospitalist Reason For Exam: Acute right lower extremity pain Discharging clinician: Tanya Perez DS: Diagnosis Discharge Diagnosis (1) Major neurocognitive disorder: Status: Acute (2) Mood disorder: Status: Acute DS: Medications Discharge Medications Home Medications: Home Medications Medication Instructions Recorded Confirmed clopidogrel 75 mg tablet 1 tab PO DAILY 07/12/22 01/07/23 donepezil 10 mg tablet 1 tab PO BEDTIME 07/12/22 01/07/23 insulin aspart U-100 100 unit/mL See Protocol subcut TIDAC 07/12/22 01/07/23 (3 mL) subcutaneous pen insulin glargine 100 unit/mL (3 44 unit subcut BEDTIME 07/12/22 01/07/23 mL) subcutaneous pen (Lantus Solostar U-100 Insulin) levothyroxine 75 mcg tablet 75 mcg PO DAILY@0630 07/12/22 01/07/23 loperamide 2 mg capsule 1 cap PO Q6H PRN diarrhea 07/12/22 01/07/23 loratadine 10 mg tablet 1 tab PO DAILY 07/12/22 01/07/23 memantine 10 mg tablet 1 tab PO BID 07/12/22 01/07/23 simvastatin 40 mg tablet 1 tab PO BEDTIME 07/12/22 01/07/23 valsartan 80 mg tablet 1 tab PO BEDTIME 07/12/22 01/07/23 acetaminophen 325 mg tablet 650 mg PO Q6H PRN pain/fever 11/12/22 01/07/23 bisacodyl 10 mg rectal suppository 10 mg WA DAILY PRN Constipation 11/12/22 01/07/23 dextrose 40 % oral gel (Glucose 15 g PO Q15M PRN BG <70 AND 11/12/22 01/07/23 Gel) RESPONSIVE escitalopram oxalate 10 mg tablet 10 mg PO DAILY 11/12/22 01/07/23 gabapentin 300 mg capsule 1,200 mg PO BEDTIME 11/12/22 01/07/23 gabapentin 300 mg capsule 300 mg PO BID@0900,1500 11/12/22 01/07/23 glucagon HCl 1 mg solution for 1 mg subcut Q20M PRN BG <70 AND 11/12/22 01/07/23 injection (Glucagon (HCl) UNRESPONSIVE Emergency Kit) magnesium hydroxide 400 mg/5 mL 30 ml PO DAILY PRN Constipation 11/12/22 01/07/23 oral suspension metoprolol tartrate 25 mg tablet 25 mg PO DAILY 11/12/22 01/07/23 quetiapine 25 mg tablet 25 mg PO BID Agitation 11/12/22 01/07/23 sodium phosphates 19 gram-7 118 ml WA DAILY PRN Constipation 11/12/22 01/07/23 gram/118 mL enema (Fleet Enema) dulaglutide 0.75 mg/0.5 mL 0.75 mg subcut FR 01/02/23 01/07/23 subcutaneous pen injector (Trulicity) quetiapine 25 mg tablet 37.5 mg PO BEDTIME 01/02/23 01/07/23 Mental Status Exam Mental Status Exam Narrative: Appearance: Casual attire, good hygiene, Behavior: cooperative, calm Psychomotor: no agitation noted Speech: clear, normal rate/rhythm/volume, spontaneous TP: linear Mood: good Affect: congruent, bright VH/AH: none expressed Delusions: none expressed Insight/judgment: fair x 2. Memory/cog: alert, oriented x 3. Data Data Completed and Pending Completed studies during hospitalization [Text1]: 05/07/23 05/07/23 05/07/23 11:42 16:24 19:27 POC Glucose 309 H 227 H 237 H 05/08/23 05/08/23 05/08/23 05:56 11:37 16:15 POC Glucose 125 H 277 H 273 H 05/08/23 05/09/23 05/09/23 19:10 06:08 11:45 POC Glucose 297 H 121 H 253 H 05/09/23 05/09/23 05/10/23 16:40 19:59 06:01 POC Glucose 255 H 242 H 95 05/10/23 05/10/23 05/10/23 11:20 15:59 19:39 POC Glucose 346 H 223 H 146 H 05/11/23 05/11/23 05/11/23 06:01 06:41 11:32 POC Glucose 64 145 H 309 H 05/11/23 05/11/23 05/12/23 16:13 19:39 05:59 POC Glucose 202 H 275 H 186 H 05/12/23 05/12/23 05/12/23 11:32 16:16 19:56 POC Glucose 200 H 217 H 227 H 05/13/23 05/13/23 05/13/23 06:24 11:18 16:23 POC Glucose 72 216 H 220 H 05/13/23 05/14/23 19:41 05:52 POC Glucose 288 H 96 Imaging Diagnostic Imaging Impressions Venous Duplex 01/30/23 16:02 IMPRESSION: No DVT demonstrated in the bilateral lower extremity. Knee X-Ray 04/13/23 16:15 IMPRESSION: Mild degenerative changes medial and patellofemoral compartment both knees. No visible acute fracture, dislocation or subluxation seen. Knee X-Ray 04/13/23 16:15 IMPRESSION: Mild degenerative changes medial and patellofemoral compartment both knees. No visible acute fracture, dislocation or subluxation seen. DS: Summary Hospital Course Hospital Course: Mrs. Landis was initially admitted to nasir unit on 01/08/23 due to increase aggression, mostly verbal as she had never been physically aggressive. It does appear that Mrs. Landis has had an underlying mood disorder which was mostly untreated. After discussing risks, benefits and alternative treatment options, pt was started on depakote for impulsive and explosive behaviors. She was also started on risperidone for mood. She did not show any signs of psychosis throughout the hospital stay nor overt delusional content. She did have some hypersexual behaviors and poor boundaries with peers but she was redirectable and these decrease with depakote. In terms of her memory, pt's orientation is mostly intact. She does have mild to moderate difficulty with recall and executive function in terms of planning, coordinating. However, she was fully aware of situation here in the hospital, need for treatment. There were no incidences of disruptive behaviors nor need for restraints. She was never physically aggressive towards self or others. She was sleeping and eating well. Her chronic conditions were treated here in the hospital including DM type 2 with goal of A1c 8% She attended all assigned groups. She was social with select peers. Status at Discharge Cognitive/behavioral status at discharge: Mrs. Landis presents with bright, non labile mood. No SI/HI. No VH/AH. No delusional content noted or reported. no aggression towards self or others. Functional status at discharge: uses cane/walker Overall status at discharge: patient is back to baseline Time Spent with Patient Time attestation: Total time managing care of this patient today ____ minutes. Discharge Plan Discharge Anticipated Discharge Date/Time: 05/14/23 09:04 Patient Disposition: Home, Self-Care Discharge Diagnosis: major neurocognitive disorder Referrals: Physician,Vinny J [Primary Care Provider] - 1 Week Discharge Medications: New acetaminophen 325 mg Tablet 650 mg PO TID Qty: 0 0RF gabapentin 600 mg Tablet 600 mg PO DAILY@1300 Qty: 0 0RF atorvastatin 20 mg Tablet 20 mg PO BEDTIME Qty: 0 0RF divalproex 250 mg Tablet,Delayed Release (Dr/Ec) 250 mg PO DAILY Qty: 0 0RF trazodone 50 mg Tablet 50 mg PO BEDTIME PRN (Reason: Insomnia) Qty: 0 0RF donepezil 10 mg Tablet 10 mg PO BEDTIME Qty: 0 0RF gabapentin 400 mg Capsule 800 mg PO BEDTIME Qty: 0 0RF valsartan 80 mg Tablet 80 mg PO BEDTIME Qty: 0 0RF Protocol: Hold for SBP< HOLD for SBP < : 90 clopidogrel 75 mg Tablet 75 mg PO DAILY Qty: 0 0RF divalproex 500 mg Tablet,Delayed Release (Dr/Ec) 500 mg PO BEDTIME Qty: 0 0RF escitalopram oxalate 10 mg Tablet 10 mg PO DAILY Qty: 0 0RF memantine [Namenda] 10 mg Tablet 10 mg PO BID Qty: 0 0RF metoprolol tartrate 25 mg Tablet 25 mg PO DAILY Qty: 0 0RF Protocol: Hold for SBP/HR < HOLD for SBP < : 90 HOLD for HR < : 60 insulin glargine [Lantus U-100 Insulin] 100 unit/mL Solution 50 unit subcut BEDTIME Qty: 0 0RF insulin glargine [Lantus U-100 Insulin] 100 unit/mL Solution 20 unit subcut DAILY Qty: 0 0RF lidocaine [Lidocaine Pain Relief] 4 % Adhesive Patch,Medicated 1 patch transdermal DAILY Qty: 0 0RF Protocol: Apply to: Apply to: lower back dextrose [Glutose-15] 40 % Gel 15 g PO Q15M PRN (Reason: BG <70 AND RESPONSIVE) Qty: 0 0RF levothyroxine 75 mcg Tablet 75 mcg PO DAILY@0630 Qty: 0 0RF magnesium hydroxide [Milk of Magnesia] 400 mg/5 mL Suspension 30 ml PO DAILY PRN (Reason: Constipation) Qty: 0 0RF Fleet Enema 19-7 gram/118 mL Enema 133 ml WA DAILY PRN (Reason: Constipation) Qty: 0 0RF insulin lispro [Admelog U-100 Insulin lispro] 100 unit/mL Solution See Protocol subcut QIDACHS Qty: 0 0RF Protocol: Insulin Correction Scale Less than or equal to 110 ---- Give (units): 0 111 to 150 Give (units): 0 151 to 200 Give (units): 2 201 to 250 Give (units): 4 251 to 300 Give (units): 6 301 to 350 Give (units): 8 Greater than 350 Give (units): 10 Call MD if Blood Glucose > : 350 Artificial Tears([id number]) 1-0.2-0.2 % Drops 1 drp ophthalmic (eye) Q4H PRN (Reason: Dry Eyes) Qty: 0 0RF Dulaglutide 0.75 mg subcut Tu@1730 Qty: 0 0RF Discontinued simvastatin 40 mg tablet 1 tab PO BEDTIME valsartan 80 mg tablet 1 tab PO BEDTIME clopidogrel 75 mg tablet 1 tab PO DAILY memantine 10 mg tablet 1 tab PO BID loperamide 2 mg capsule 1 cap PO Q6H PRN (Reason: diarrhea) levothyroxine 75 mcg tablet 75 mcg PO DAILY@0630 insulin glargine [Lantus Solostar U-100 Insulin] 100 unit/mL (3 mL) insulin pen 44 unit subcut BEDTIME donepezil 10 mg tablet 1 tab PO BEDTIME loratadine 10 mg tablet 1 tab PO DAILY insulin aspart U-100 100 unit/mL (3 mL) insulin pen See Protocol SUBCUT TIDAC Protocol: Insulin Correction Scale Less than or equal to 110 ---- Give (units): 0 111 to 150 Give (units): 0 151 to 200 Give (units): 2 201 to 250 Give (units): 4 251 to 300 Give (units): 6 301 to 350 Give (units): 8 Greater than 350 Give (units): 10 Call MD if Blood Glucose > : 350 Rx Instructions: sliding scale quetiapine 25 mg Tablet 25 mg PO BID acetaminophen 325 mg Tablet 650 mg PO Q6H PRN (Reason: pain/fever) dextrose [Glucose Gel] 40 % Gel 15 g PO Q15M PRN (Reason: BG <70 AND RESPONSIVE) Rx Instructions: until symptoms of low blood sugar are controlled magnesium hydroxide 400 mg/5 mL Suspension 30 ml PO DAILY PRN (Reason: Constipation) bisacodyl 10 mg Suppository 10 mg WA DAILY PRN (Reason: Constipation) Fleet Enema 19-7 gram/118 mL Enema 118 ml WA DAILY PRN (Reason: Constipation) gabapentin 300 mg Capsule 1,200 mg PO BEDTIME gabapentin 300 mg Capsule 300 mg PO BID@0900,1500 escitalopram oxalate 10 mg Tablet 10 mg PO DAILY metoprolol tartrate 25 mg Tablet 25 mg PO DAILY glucagon HCl [Glucagon (HCl) Emergency Kit] 1 mg Recon Soln 1 mg SUBCUT Q20M PRN (Reason: BG <70 AND UNRESPONSIVE) Rx Instructions: until target blood sugar attained quetiapine 25 mg Tablet 37.5 mg PO BEDTIME Trulicity 0.75 mg/0.5 mL pen injector 0.75 mg subcut FR Discharge Orders: Discharge Order (Routine); Ordered 05/14/23 Ordered By: Tanya Perez Diet: Diabetic diet Activity on Discharge: Use cane or walker Stand Alone Forms: Patient Portal Discharge page, Community Support Print Language: [place] Care Plan Goals: 1. maintain mood 2. No SI/HI 3. No aggression towards self or others Health Concerns: follow up with PCP Plan of Treatment: take medications as prescribed with bright, non labile mood. No SI/HI. No VH/AH. No delusional content noted or reported. no aggression towards self or others Assessment: take medications as prescribed with bright, non labile mood. No SI/HI. No VH/AH. No delusional content noted or reported. no aggression towards self or others
== END 2023-05-14 10:10 | disposition home or self-care (01) | DRG 753 ==
LOC: HO.ED 01-08 04:42 → HO.PGERI 01-08 18:27
PROVIDERS: Emergency Medicine Emergency Medical Services; Physician Assistant; Psychiatry & Neurology Psychiatry; Admitting Provider Psychiatry & Neurology Psychiatry; Emergency Provider Emergency Medicine; Visit Provider Social Worker
DX: F39 Unspecified mood [affective] disorder (principal); U07.1 COVID-19; F03.B11 Unspecified dementia, moderate, with agitation; E11.649 Type 2 diabetes mellitus with hypoglycemia without coma; R25.2 Cramp and spasm; E11.65 Type 2 diabetes mellitus with hyperglycemia; Z91.119 Patient's noncompliance with dietary regimen due to unspecified reason; Z23 Encounter for immunization; Z79.02 Long term (current) use of antithrombotics/antiplatelets; Z79.4 Long term (current) use of insulin; Z79.890 Hormone replacement therapy; Z79.899 Other long term (current) drug therapy
CPT/HCPCS: 36415; 73560; 80053; 80164; 80307; 81001; 82140; 82607; 82746; 82947; 83036; 84443; 85025; 87635; 90686; 93005; 93970; 99285; S9485

== ENCOUNTER → 2023-01-08 18:18 | Outpatient (BNV) | payer MEDICAID, SELFPAY | PROVIDERS: Admitting Provider Psychiatry & Neurology Psychiatry; Emergency Provider Emergency Medicine; Visit Provider Psychiatry & Neurology Psychiatry | DX: F39 Unspecified mood [affective] disorder (principal); F03.90 Unspecified dementia, unspecified severity, without behavioral disturbance, psychotic disturbance, mood disturbance, and anxiety | CPT/HCPCS: 99231; 99232 ==

== ENCOUNTER 2024-05-16 22:42 | Emergency (ER) | payer MEDICAID, SELFPAY ==
--- NOTE | 2024-05-16 | ECG_ITS ---
Test Reason : FALL Blood Pressure : */* mmHG Vent. Rate : 92 BPM Atrial Rate : 92 BPM P-R Int : 168 ms QRS Dur : 74 ms QT Int : 348 ms P-R-T Axes : 60 26 59 degrees QTcB Int : 430 ms Normal sinus rhythm Nonspecific T wave abnormality Abnormal ECG When compared with ECG of 08-Jan-2023 15:56, Nonspecific T wave abnormality now evident in Inferior leads Nonspecific T wave abnormality, worse in Lateral leads Referred By: Michelle Patino Electronically Signed By: ALEXANDER GREGORY MD
--- NOTE | ~2024-05-16 | XR_ITS ---
CLINICAL HISTORY: fever 1 view chest x-ray. Comparison: None Findings: The lungs appear clear. There is no consolidation, effusion, or nodule identified. Cardiomediastinal silhouette is within normal limits. No fracture is seen. IMPRESSION: No acute cardiopulmonary abnormality. This document has been electronically signed by: Bonifacio Tarango MD on 05/17/2024 00:23:30
--- NOTE | ~2024-05-16 | CT_ITS ---
CLINICAL HISTORY: sepsis, source of infection CT chest without contrast Comparison: None Findings: Heart size is normal. There is no pericardial effusion. There is coronary artery calcification. Thoracic aorta is normal in diameter. There are no enlarged lymph nodes. There is a small hiatal hernia. There is minimal bilateral atelectasis. Lungs appear otherwise clear. Trachea and central bronchi are widely patent. There is no fracture or suspicious lytic or sclerotic lesion. IMPRESSION: No source of infection identified in the chest. This document has been electronically signed by: Bonifacio Tarango MD on 05/17/2024 02:41:34
--- NOTE | ~2024-05-16 | CT_ITS ---
CLINICAL HISTORY: sepsis, possible enteritis? CT abdomen and pelvis without contrast Comparison: None Findings: There is hepatic steatosis. Patient is status post cholecystectomy. The pancreas, spleen, adrenal glands, and kidneys are unremarkable. There may be mild bladder wall thickening. There is colonic diverticulosis. There is no acute diverticulitis or colitis. The appendix is normal. There is thin tube in the rectum likely a temperature probe. Stomach and small bowel are unremarkable. There is no free fluid or free air. The aorta is normal in diameter. There are no enlarged lymph nodes. Uterus and adnexa are grossly unremarkable. There is no fracture or suspicious lytic or sclerotic lesion. IMPRESSION: 1. Possible mild bladder wall thickening. Correlate for cystitis. 2. Colonic diverticulosis. 3. Hepatic steatosis. This document has been electronically signed by: Bonifacio Tarango MD on 05/17/2024 02:40:24
--- NOTE | ~2024-05-16 | CT_ITS ---
CLINICAL HISTORY: etoh, fall CT head without contrast Comparison: CT/SR - CT HEAD/BRAIN WO IV CON - 01/01/23 12:07 EDT Findings: There is no acute intracranial hemorrhage. Ventricles are within normal limits in size. No mass effect or midline shift is present. The perry-white matter differentiation appears normal. There is generalized cerebral atrophy. Hypoattenuation in the periventricular white matter is stable and consistent with chronic small vessel ischemic disease. 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 The visualized portions of the orbits, paranasal sinuses, and mastoids are unremarkable. No fractures are identified. IMPRESSION: No acute intracranial abnormality. This document has been electronically signed by: Bonifacio Tarango MD on 05/17/2024 01:31:53
--- NOTE | ~2024-05-16 | CT_ITS ---
CLINICAL HISTORY: fall, ams CT cervical spine without contrast Comparison: CT/SR - CAT SCAN CERVICAL SPINE [id number] - 06/18/18 10:58 EST Findings: The alignment of the cervical spine is normal. There is no fracture. There is mild C5-6 disc space narrowing. There is mild left neuroforaminal stenosis at C5-6 due to uncovertebral joint osteoarthritis. There is carotid artery calcification. IMPRESSION: No evidence of cervical spine injury. This document has been electronically signed by: Bonifacio Tarango MD on 05/17/2024 01:30:30
[2024-05-16 22:53] VITALS: BP 102/50; PULSE 105; O2SAT 95
[2024-05-16 22:58] VITALS: BP 91/47; PULSE 96; RESP 18; TEMP 37.9; O2SAT 94; BMI 25.3
[2024-05-16 23:33] VITALS: BP 81/42; PULSE 89; RESP 14; TEMP 37.6; O2SAT 95
[2024-05-16 23:40] LABS: MANUAL DIFF FLAG NO
[2024-05-16 23:42] LABS: Basophils Percent Auto 0.3 % (0-2); Eosinophils Percent Auto 0.3 % (0-4); Hematocrit 31.9 % (37.0-47.0); Hemoglobin 11.1 g/dl (12.0-16.0); Imm Gran Abs Auto 0.05 X10*3/uL (0.00-0.03); Imm Gran Pct Auto 0.6 % (0.0-0.4); Lymphocytes Absolute Auto 0.9 X10*3/uL (1.2-4.9); Lymphocytes Percent Auto 11.5 % (20-40); Mean Corpuscular HGB Conc 34.8 g/dl (31.0-35.0); Mean Corpuscular Hemoglobin 33.3 pg (27.0-33.0); Mean Corpuscular Volume 95.8 fL (80.0-98.0); Mean Platelet Volume 9.5 fL (9.4-12.3); Monocytes Absolute Auto 0.5 X10*3/uL (0.1-1.2); Neutrophils Absolute Auto 6.4 x10*3/uL (2.0-8.3); Neutrophils Percent Auto 81.3 % (45-73); Platelet Count 163 X10*3/uL (160-400); Red Blood Count 3.33 X10*6/uL (4.20-5.50); Red Cell Distribution Width 12.8 % (11.0-16.0); White Blood Count 7.9 X10*3/uL (4.8-10.8)
[2024-05-16] MEDS: cefTRIAXone sodium 1 GM VIAL IVPUSH (23:42)
[2024-05-16] MEDS: 0.9 % Sodium Chloride 1,000 ML 999 ML IVCONT (23:42)
--- NOTE | 2024-05-16 23:42 | MHC.EDTECH ---
Patient BIBA,changed into hospital attire,placed on the casting plug assembler,continuous rectal probe placed temp is 100.9,BP is low 91/47,RN at bedside is aware, EKG taken per order,signed by provider,labs,blood cultures,and sars/flu/rsv obtained and sent to lab.
--- NOTE | 2024-05-16 23:46 | ED.FALL ---
HPI - Fall General Chief Complaint: Fall Stated Complaint: fall, head strike, thinners, hypotension, fever, Time Seen by Provider: 05/16/24 22:54 Source: patient and EMS Mode of arrival: EMS Limitations: other (Dementia) History of Present Illness ED Provider: Dr. Michelle Patino HPI Narrative: Patient comes to the emergency room complaining of diarrhea, unwitnessed fall. According to the patient, she tripped, does not remember exactly what happened but states that she was not feeling sick. According to EMS, the staff reported that the patient have fever of 101. Patient refused C-collar. On arrival, patient awake and alert, states that she feels otherwise well, has no complaints. Patient does have history of the dementia and therefore, patient is a poor historian Related Data Previous Rx's ?Medication ?Instructions ?Recorded Dulaglutide 0.75 mg subcut Tu@1730 ##0 05/14/23 acetaminophen 325 mg tablet 650 mg (2 x 325 mg) PO TID #0 tabs 05/14/23 atorvastatin 20 mg tablet 20 mg PO BEDTIME #0 tabs 05/14/23 clopidogrel 75 mg tablet 75 mg PO DAILY #0 tabs 05/14/23 dextrose 40 % oral gel (Glutose-15) 15 g PO Q15M PRN BG <70 AND 05/14/23 RESPONSIVE #0 grams divalproex 250 mg tablet,delayed 250 mg PO DAILY #0 tabs 05/14/23 release divalproex 500 mg tablet,delayed 500 mg PO BEDTIME #0 tabs 05/14/23 release donepezil 10 mg tablet 10 mg PO BEDTIME #0 tabs 05/14/23 escitalopram oxalate 10 mg tablet 10 mg PO DAILY #0 tabs 05/14/23 gabapentin 400 mg capsule 800 mg (2 x 400 mg) PO BEDTIME #0 05/14/23 caps gabapentin 600 mg tablet 600 mg PO DAILY@1300 #0 tabs 05/14/23 insulin glargine 100 unit/mL 20 unit (0.2 mL) subcut DAILY #0 mL 05/14/23 subcutaneous solution (Lantus U-100 Insulin) insulin glargine 100 unit/mL 50 unit (0.5 mL) subcut BEDTIME #0 05/14/23 subcutaneous solution (Lantus mL U-100 Insulin) insulin lispro 100 unit/mL See Protocol subcut QIDACHS #0 mL 05/14/23 subcutaneous solution (Admelog U-100 Insulin lispro) levothyroxine 75 mcg tablet 75 mcg PO DAILY@0630 #0 tabs 05/14/23 lidocaine 4 % topical patch 1 patch transdermal DAILY #0 ea 05/14/23 (Lidocaine Pain Relief) magnesium hydroxide 400 mg/5 mL 30 ml PO DAILY PRN Constipation #0 05/14/23 oral suspension (Milk of Magnesia) mL memantine 10 mg tablet (Namenda) 10 mg PO BID #0 tabs 05/14/23 metoprolol tartrate 25 mg tablet 25 mg PO DAILY #0 tabs 05/14/23 peg [id number] 1 1 drp ophthalmic (eye) Q4H PRN Dry 05/14/23 %-0.2 %-0.2 % eye drops Eyes #0 mL (Artificial Tears ([id number])) sodium phosphates 19 gram-7 133 ml UT DAILY PRN Constipation 05/14/23 gram/118 mL enema (Fleet Enema) #0 mL trazodone 50 mg tablet 50 mg PO BEDTIME PRN Insomnia #0 05/14/23 tabs valsartan 80 mg tablet 80 mg PO BEDTIME #0 tabs 05/14/23 Allergies Allergy/AdvReac Type Severity Reaction Status Date / Time aspirin [ASPIRIN] Allergy Unknown UNKNOWN Verified 05/16/24 23:02 Review of Systems Review of Systems: Patient reports a fall, diarrhea and fever Yes Other (Patient is poor historian) [facility] Past Medical History Medical History Hypertension Hypothyroidism Dementia Major neurocognitive disorder Hyperlipidemia Diabetes Family History Family History (Updated 01/08/23 @ 10:43 by Tanya ePrez NP) Other Major neurocognitive disorder Social History Social History Household Members: None Household Members Other:: patient resides in a halfway and she has a room-mate Housing: Half-Way Unable to assess alcohol history related to: Unknown Alcohol intake: never Patient Tobacco Use Status: Never used Tobacco Advance Directives: Yes Advance Directives on File: Yes Advance Directives Date on File: 11/12/22 service: No Sexual orientation: Straight/Heterosexual Physical Exam Vital Signs: Vital Signs: Last Vital Signs Temp 98.2 F 05/17/24 01:44 Pulse 74 05/17/24 01:44 Resp 16 05/17/24 01:44 BP 94/48 L 05/17/24 01:44 Pulse Ox 95 05/17/24 01:44 O2 Del Method Room Air 05/17/24 01:44 BMI result Body Mass Index 25.3 Const: Other: Appearance: Alert. Oriented X3. No acute distress. Eyes: Pupils equal, round and reactive to light. ENT: Pharynx normal. Neck: Patient's neck wrapped around the towel, no cervical spine tenderness, normal range of motion. CVS: Normal heart rate and rhythm. Pulses normal. Normal S1 and S2 Respiratory: No respiratory distress. Breath sounds normal. No Wheezing. No rales Abdomen: Soft and nontender. No rigidity. No distention. Skin: Skin warm and dry. Normal skin color. Normal skin turgor. No lacerations, no ecchymosis Extremities: No lower extremity edema. No Lacerations. No Rash Neuro: Oriented X 3. No motor deficit. No sensory deficit. Moving all extremities. No slurred speech. CN 2 through 12 grossly intact Psych: calm, cooperative, normal affect Course Course Course Narrative: Patient was given 2 L of normal saline, ceftriaxone. According to the facility patient has been having diarrhea, patient reports UTI but sometimes says that she has no symptoms. Patient has dementia, empirically patient was given a dose of ceftriaxone IV. Of patient's labs and imaging pending. At 23:55, I was informed by the patient's nurse that patient had 1 episode of hypotension in the 80s, and then has been in the low 90s. Sepsis alert was called at 00:01 Medications Administered Discontinued Medications Generic Name Dose Route Start Last Admin Trade Name Freq PRN Reason Stop Dose Admin Ceftriaxone Sodium 1 gm 05/16/24 23:35 05/16/24 23:42 Ceftriaxone Sodium 1 Gm Vial IVPUSH 05/16/24 23:36 1 gm ONCE ONE Administration Sodium Chloride 1,000 mls @ 999 mls/hr 05/16/24 23:35 05/16/24 23:55 Ns IVCONT 05/17/24 00:35 0 mls/hr .Q1H1M ONE Infusion Sodium Chloride 2,000 mls @ 999 mls/hr 05/16/24 23:46 05/17/24 01:36 Ns IVCONT 05/17/24 01:46 Infused .Q2H1M ONE Infusion Medical Decision Making Medical Decision Making [facility] [place] Narrative: My interpretation of labs: At baseline hematology, chemistry shows mild hyponatremia, lactic acid 2.6, repeated lactic acid 1.8, LFTs within normal limits, slightly decreased albumin 3.2. Urinalysis negative for UTI. Patient had a fall earlier today. Patient is head and cervical spine CT do not show any acute abnormality. Patient had a fever isn't hypotensive event, CT scan of the chest abdomen and pelvis did not show any acute abnormality. Patient known to have diarrhea, likely a viral illness. Patient was dehydrated. Patient's blood pressure has been in the mid 90s, no episodes of hypotension. No vomiting. Patient is stable to go to the floor. I discussed the patient with Dr. Saldaña, patient being admitted Focused exam done at 03:10 Dr. Saldaña evaluated the patient. There is no clear source of infection, patient likely had hyper perfusion from diarrhea. Here in the ED patient has not had any episodes of diarrhea or vomiting. Recommendations: Discharged home. Patient is stable. Differential Diagnosis Differential Diagnoses: The differential diagnosis associated with the presentation includes Admission/Observation Consideration of admission/observation: Escalation of care including admission/observation considered Consult Healthcare Provider Management of the patient was discussed with: Hospitalist Lab Data [facility] [place] Lab Attestation statement: I reviewed the patient's lab results. 05/16/24 23:31 05/16/24 23:31 Labs: Lab Results 05/16/24 05/17/24 05/17/24 Range/Units 23:31 00:05 01:51 WBC 7.9 (4.8-10.8) X10*3/uL RBC 3.33 L (4.20-5.50) X10*6/uL Hgb 11.1 L (12.0-16.0) g/dl Hct 31.9 L (37.0-47.0) % MCV 95.8 (80.0-98.0) fL MCH 33.3 H (27.0-33.0) pg MCHC 34.8 (31.0-35.0) g/dl RDW 12.8 (11.0-16.0) % Plt Count 163 (160-400) X10*3/uL MPV 9.5 (9.4-12.3) fL Immature Gran % (Auto) 0.6 H (0.0-0.4) % Neut % (Auto) 81.3 H (45-73) % Lymph % (Auto) 11.5 L (20-40) % Curry % (Auto) 6.0 (2-11) % Eos % (Auto) 0.3 (0-4) % Baso % (Auto) 0.3 (0-2) % Lymph # (Auto) 0.9 L (1.2-4.9) X10*3/uL Curry # (Auto) 0.5 (0.1-1.2) X10*3/uL Eos # (Auto) 0.0 (0.0-0.4) X10*3/uL Baso # (Auto) 0.0 (0.0-0.2) X10*3/uL Abs Immat Gran (auto) 0.05 H (0.00-0.03) X10*3/uL Absolute Neuts (auto) 6.4 (2.0-8.3) x10*3/uL Absolute Nucleated RBC 0.000 (0.0-0.012) X10*3/uL Nucleated RBC % (auto) 0.0 (0.0-0.2) /100WBC PT 12.7 H (10.9-12.4) SEC INR 1.1 (0.9-1.1) Sodium 132 L (135-145) mmol/L Potassium 4.2 (3.3-5.1) mmol/L Chloride 97 (96-108) mmol/L Carbon Dioxide 25 (22-29) mmol/L Anion Gap 14 (12-20) BUN 16 (9-16) mg/dL Creatinine 0.79 (0.5-1.4) mg/dL Estim Creat Clear Calc 59.3 Estimated GFR > 60 Random Glucose 212 H (60-115) mg/dL Lactic Acid 2.6 H* (0.5-2.0) mmol/L Lactic Acid F/U @ 2Hr 1.8 (0.5-2.0) mmol/L Calcium 8.0 L D (8.4-10.2) mg/dL Magnesium 1.7 (1.6-2.6) mg/dL Total Bilirubin 0.3 (0.0-1.0) mg/dL Direct Bilirubin 0.2 (0.0-0.5) mg/dL AST 40 H (5-31) U/L ALT 10 (0-31) U/L Alkaline Phosphatase 64 (39-117) U/L Troponin I High Sens 3.9 (<3.5-17.0) ng/L Total Protein 7.0 (6.5-8.0) g/dL Albumin 3.2 L (3.5-5.0) g/dL Urine Color Yellow Urine Appearance Clear Urine pH 6.5 (5.0-9.0) Ur Specific Erin 1.025 (1.005-1.025) Urine Protein Negative (Neg-Trace) mg/dL Urine Glucose (UA) 500 H (Negative) mg/dL Urine Ketones Trace (Negative) mg/dL Urine Blood Negative (Negative) Urine Nitrite Negative (Negative) Ur Leukocyte Esterase Trace H (Negative) Urine RBC 0-2 (0-2) /HPF Urine WBC 0-5 (0-5) /HPF Ur Squamous Epith Cells 0-2 (0-2) /HPF Urine Bacteria None Seen (None Seen) Hyaline Casts 3-5 (0-2) /LPF Urine Opiates Screen Not Detected (Not Detect) Ur Buprenorphine Scrn Not Detected (Not Detect) ng/mL Ur Oxycodone Screen Not Detected (Not Detect) ng/mL Urine Methadone Screen Not Detected (Not Detect) ng/mL Urine Fentanyl Screen Not Detected (Not Detect) Ur Barbiturates Screen Not Detected (Not Detect) Ur Phencyclidine Scrn Not Detected (Not Detect) Ur Amphetamines Screen Not Detected (Not Detect) U Benzodiazepines Scrn Not Detected (Not Detect) Urine Cocaine Screen Not Detected (Not Detect) U Marijuana (THC) Screen Not Detected (Not Detect) Ethyl Alcohol 11 mg/dL Influenza Type A (PCR) NEGATIVE (Negative) Influenza Type B (PCR) NEGATIVE (Negative) RSV RNA Qual (PCR) NEGATIVE (Negative) SARS-CoV-2 RNA (RT-PCR) NEGATIVE (Negative) Independent Interpretation I performed an independent interpretation of an: CT Scan Radiology Impression Discussion of test interpretation with radiology: I have reviewed the radiologist's reading. Radiologist Impression: Heart size is normal. There is no pericardial effusion. There is coronary artery calcification. Thoracic aorta is normal in diameter. There are no enlarged lymph nodes. There is a small hiatal hernia. There is minimal bilateral atelectasis. Lungs appear otherwise clear. Trachea and central bronchi are widely patent. There is no fracture or suspicious lytic or sclerotic lesion. There is hepatic steatosis. Patient is status post cholecystectomy. The pancreas, spleen, adrenal glands, and kidneys are unremarkable. There may be mild bladder wall thickening. There is colonic diverticulosis. There is no acute diverticulitis or colitis. The appendix is normal. There is thin tube in the rectum likely a temperature probe. Stomach and small bowel are unremarkable. There is no free fluid or free air. The aorta is normal in diameter. There are no enlarged lymph nodes. Uterus and adnexa are grossly unremarkable. There is no fracture or suspicious lytic or sclerotic lesion. There is no acute intracranial hemorrhage. Ventricles are within normal limits in size. No mass effect or midline shift is present. The perry-white matter differentiation appears normal. There is generalized cerebral atrophy. Hypoattenuation in the periventricular white matter is stable and consistent with chronic small vessel ischemic disease. 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 The visualized portions of the orbits, paranasal sinuses, and mastoids are unremarkable. No fractures are identified. The alignment of the cervical spine is normal. There is no fracture. There is mild C5-6 disc space narrowing. There is mild left neuroforaminal stenosis at C5-6 due to uncovertebral joint osteoarthritis. There is carotid artery calcification Critical Care Time Critical Care Time Critical Care Time: Yes Total Critical Care Time: 90 Attestation: I have personally provided critical care time. Time includes review of lab data, radiology results, discussion with consultants, and monitoring for potential decompensation. Intervention performed as documented. Discharge Plan Discharge Clinical Impression: Diarrhea, Acute dehydration, Acute hypotension Patient Disposition: Home, Self-Care Instructions: Dehydration (ED), Hypotension (ED), Acute Diarrhea (ED) Prescriptions: No Action acetaminophen 325 mg Tablet 650 mg PO TID Qty: 0 0RF gabapentin 600 mg Tablet 600 mg PO DAILY@1300 Qty: 0 0RF atorvastatin 20 mg Tablet 20 mg PO BEDTIME Qty: 0 0RF divalproex 250 mg Tablet,Delayed Release (Dr/Ec) 250 mg PO DAILY Qty: 0 0RF trazodone 50 mg Tablet 50 mg PO BEDTIME PRN (Reason: Insomnia) Qty: 0 0RF donepezil 10 mg Tablet 10 mg PO BEDTIME Qty: 0 0RF gabapentin 400 mg Capsule 800 mg PO BEDTIME Qty: 0 0RF valsartan 80 mg Tablet 80 mg PO BEDTIME Qty: 0 0RF Protocol: Hold for SBP< HOLD for SBP < : 90 clopidogrel 75 mg Tablet 75 mg PO DAILY Qty: 0 0RF divalproex 500 mg Tablet,Delayed Release (Dr/Ec) 500 mg PO BEDTIME Qty: 0 0RF escitalopram oxalate 10 mg Tablet 10 mg PO DAILY Qty: 0 0RF memantine [Namenda] 10 mg Tablet 10 mg PO BID Qty: 0 0RF metoprolol tartrate 25 mg Tablet 25 mg PO DAILY Qty: 0 0RF Protocol: Hold for SBP/HR < HOLD for SBP < : 90 HOLD for HR < : 60 insulin glargine [Lantus U-100 Insulin] 100 unit/mL Solution 50 unit subcut BEDTIME Qty: 0 0RF insulin glargine [Lantus U-100 Insulin] 100 unit/mL Solution 20 unit subcut DAILY Qty: 0 0RF lidocaine [Lidocaine Pain Relief] 4 % Adhesive Patch,Medicated 1 patch transdermal DAILY Qty: 0 0RF Protocol: Apply to: Apply to: lower back dextrose [Glutose-15] 40 % Gel 15 g PO Q15M PRN (Reason: BG <70 AND RESPONSIVE) Qty: 0 0RF levothyroxine 75 mcg Tablet 75 mcg PO DAILY@0630 Qty: 0 0RF magnesium hydroxide [Milk of Magnesia] 400 mg/5 mL Suspension 30 ml PO DAILY PRN (Reason: Constipation) Qty: 0 0RF Fleet Enema 19-7 gram/118 mL Enema 133 ml UT DAILY PRN (Reason: Constipation) Qty: 0 0RF insulin lispro [Admelog U-100 Insulin lispro] 100 unit/mL Solution See Protocol subcut QIDACHS Qty: 0 0RF Protocol: Insulin Correction Scale Less than or equal to 110 ---- Give (units): 0 111 to 150 Give (units): 0 151 to 200 Give (units): 2 201 to 250 Give (units): 4 251 to 300 Give (units): 6 301 to 350 Give (units): 8 Greater than 350 Give (units): 10 Call MD if Blood Glucose > : 350 Artificial Tears([id number]) 1-0.2-0.2 % Drops 1 drp ophthalmic (eye) Q4H PRN (Reason: Dry Eyes) Qty: 0 0RF Dulaglutide 0.75 mg subcut Tu@1730 Qty: 0 0RF Print Language: Azeri
[2024-05-16 23:47] LABS: INTERNATIONAL NORM RATIO 1.1 (0.9-1.1); Prothrombin Time 12.7 SEC (10.9-12.4)
[2024-05-16] MEDS: 0.9 % Sodium Chloride 2,000 ML 999 ML IVCONT (23:55)
[2024-05-16 23:56] LABS: Alanine Aminotransferase 10 U/L (0-31); Albumin Level 3.2 g/dL (3.5-5.0); Alkaline Phosphatase 64 U/L (39-117); Anion Gap 14 (12-20); Aspartate Amino Transferase 40 U/L (5-31); Bilirubin Direct 0.2 mg/dL (0.0-0.5); Bilirubin Total 0.3 mg/dL (0.0-1.0); Blood Urea Nitrogen 16 mg/dL (9-16); Carbon Dioxide 25 mmol/L (22-29); Chloride 97 mmol/L (96-108); Creatinine Clr Calc Pharmacy 59.3; Estimated Glomerular Filt Rate > 60; Ethanol 11 mg/dL; Glucose Random 212 mg/dL (60-115); Magnesium 1.7 mg/dL (1.6-2.6); Potassium 4.2 mmol/L (3.3-5.1); Sodium 132 mmol/L (135-145)
[2024-05-16 23:57] VITALS: BP 90/50; PULSE 83; RESP 14; TEMP 37.5; O2SAT 94
[2024-05-17 00:01] LABS: Lactic Acid 2.6 mmol/L (0.5-2.0)
[2024-05-17 00:03] LABS: Troponin-I High Sensitivity 3.9 ng/L (<3.5-17.0)
--- NOTE | 2024-05-17 00:07 | MHC.EDTECH ---
Assisted Angela COE with straight cath,urine sample collected sent to lab
[2024-05-17 00:15] LABS: Appearance Urine Clear; Color Urine Yellow; Glucose Urine UA 500 mg/dL (Negative); Leukocyte Esterase Urine Trace (Negative); Nitrite Urine Negative (Negative); PH 6.5 (5.0-9.0); Specific Gravity - Urine 1.025 (1.005-1.025); UMIC TRIGGER UACC YES; Urine Blood Negative (Negative); Urine Ketones Trace mg/dL (Negative); Urine Protein Negative (Neg-Trace)
[2024-05-17 00:18] LABS: Influenza A PCR NEGATIVE (Negative); Influenza B PCR NEGATIVE (Negative); Resp Syncy Virus RNA Qual PCR NEGATIVE (Negative); SARS COV2 PCR INHOUSE NEGATIVE (Negative)
[2024-05-17 00:23] LABS: Bacteria Urine None Seen (None Seen); RBC Urine 0-2 /HPF (0-2); Squamous Epithelial Cell Urine 0-2 /HPF (0-2); WBC Urine 0-5 /HPF (0-5)
[2024-05-17 00:24] LABS: Amphetamine Screen Urine Not Detected (Not Detect); Barbiturates, Urine Not Detected (Not Detect); Benzodiazepines Screen Urine Not Detected (Not Detect); Buprenorphine Scr Not Detected (Not Detect); Cannabinoid Screen Urine Not Detected (Not Detect); Cocaine Screen Urine Not Detected (Not Detect); Fentanyl, urine Not Detected (Not Detect); Methadone Screen, Urine Not Detected (Not Detect); Opiate Screen Urine Not Detected (Not Detect); Oxycodone Screen Urine Not Detected (Not Detect); Phencyclidine Screen Urine Not Detected (Not Detect)
[2024-05-17 00:44] VITALS: BP 93/45; PULSE 82; RESP 14; TEMP 36.8; O2SAT 93
[2024-05-17 01:38] VITALS: BP 98/50; PULSE 78; RESP 16; TEMP 36.8; O2SAT 95
[2024-05-17 01:39] LABS: Reflex Lactate? Lactic Acid Added
[2024-05-17 01:44] VITALS: BP 94/48; PULSE 74; RESP 16; TEMP 36.8; O2SAT 95
--- NOTE | 2024-05-17 01:53 | MHC.EDTECH ---
Repeat lactic drawn and sent to lab,rounds and vitals completed
[2024-05-17 02:07] LABS: ~Lactic Acid-LAB USE ONLY 1.8 mmol/L (0.5-2.0)
--- NOTE | 2024-05-17 02:36 | PC.NURSE ---
assist pt onto bed davison. assist with washing after voiding
--- NOTE | 2024-05-17 03:33 | P.EN_ITS ---
Event Note Date of Service: 05/17/24 Event Note: Was asked to evaluate the patient for possible admission. Patient presents for evaluation of loose stools. No more episodes of diarrhea in the ER. No fever or leukocytosis. Etiology is likely viral in nature. Had an episode of hypotension and lactic acidosis in the ER which is due to hypoperfusion. Blood pressure has been stable since patient received IV crystalloid resuscitation. No indication for antibiotics or inpatient admission. Discussed with ER jasmina starks. Time Spent With Patient Time: Total time managing care of this patient today ____ minutes.
--- NOTE | 2024-05-17 03:45 | PC.NURSE ---
nruse to nurse report given to [facility]
[2024-05-17 04:18] VITALS: BP 114/56; PULSE 84; RESP 17; TEMP 37.2; O2SAT 94
[2024-05-17 04:43] VITALS: BP 114/56; PULSE 84; RESP 17; TEMP 37.2; O2SAT 94
== END 2024-05-17 04:45 | disposition home or self-care (01) ==
PROVIDERS: Emergency Provider Emergency Medicine; PCP Emergency Medicine
DX: R19.7 Diarrhea, unspecified (principal); I95.9 Hypotension, unspecified; E86.0 Dehydration; R50.9 Fever, unspecified; E11.9 Type 2 diabetes mellitus without complications; E03.9 Hypothyroidism, unspecified; I10 Essential (primary) hypertension; Z03.818 Encounter for observation for suspected exposure to other biological agents ruled out
CPT/HCPCS: 0241U; 36415; 70450; 71045; 71250; 72125; 74176; 80048; 80076; 80307; 81001; 83605; 83735; 84484; 85025; 85610; 87040; 93005; 96361; 96374; 99285; J0696

== ENCOUNTER → 2024-05-16 23:15 | Outpatient (BNV) | payer MEDICAID, SELFPAY | PROVIDERS: Emergency Provider Emergency Medicine; PCP Emergency Medicine; Visit Provider Internal Medicine Cardiovascular Disease | DX: R94.31 Abnormal electrocardiogram [ECG] [EKG] (principal) | CPT/HCPCS: 93010 ==

== ENCOUNTER → 2024-05-16 23:21 | Outpatient (BNV) | payer MEDICAID, SELFPAY | PROVIDERS: Emergency Provider Emergency Medicine; PCP Emergency Medicine; Visit Provider Radiology Diagnostic Radiology | DX: R41.82 Altered mental status, unspecified (principal); R50.9 Fever, unspecified | CPT/HCPCS: 70450; 71045; 72125 ==

== ENCOUNTER → 2024-05-17 01:13 | Outpatient (BNV) | payer MEDICAID, SELFPAY | PROVIDERS: Emergency Provider Emergency Medicine; PCP Emergency Medicine; Visit Provider Radiology Diagnostic Radiology | DX: K57.30 Diverticulosis of large intestine without perforation or abscess without bleeding (principal); K76.0 Fatty (change of) liver, not elsewhere classified; A41.9 Sepsis, unspecified organism | CPT/HCPCS: 71250; 74176 ==

== ENCOUNTER 2024-07-01 14:06 | Outpatient (REF) | payer MEDICAID, SELFPAY ==
--- OUTSIDE RECORDS SUMMARY | 2024-07-01 17:19 | XMS_ITS | Clinical Summary ---
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 11/19/2022 Active quetiapine fumarate (QUETIAPINE ORAL) Take 12.5 mg by mouth 2 (two) times a day if needed. Active metFORMIN XR (GLUCOPHAGE-XR) 500 mg 24 hr tablet Take 2 tablets (1,000 mg total) by mouth 2 (two) times a day. Before meals 10/02/2022 Active insulin aspart (NovoLOG) 100 unit/mL injection Inject 11-17 Units as directed 3 times daily (with meals). 100-150 11 units, 151-200 13 units, 201-250 14 units, 251-300 15 units, 301-350 16 units, 351-400 17 units, over 400 notify 10/02/2022 Active blood sugar diagnostic (FreeStyle Lite Strips) test strip 1 Strip by In Vitro route daily. 04/11/2022 Active blood sugar diagnostic (FreeStyle Lite Strips) test strip 1 Device by Does not apply route daily. 04/11/2022 Active FREESTYLE LANCETS MISC 1 Device by Does not apply route daily. 04/11/2022 Active levothyroxine (SYNTHROID, LEVOTHROID) 75 mcg tablet Take 1 Tablet by mouth three times a week. Take 1 tab Friday, Friday, and Friday04/12/2022 Active simvastatin (ZOCOR) 40 mg tablet Take 1 tablet (40 mg total) by mouth at bedtime. 04/11/2022 Active gabapentin (NEURONTIN) 800 mg tablet Take 1 tablet (800 mg total) by mouth at bedtime. 02/20/2022 Active escitalopram (LEXAPRO) 5 mg tablet Take 1 tablet (5 mg total) by mouth 1 (one) time each day. 01/28/2022 Active pen needle, diabetic 32 gauge x needle 1 Device by Does not apply route 3 times daily. 02/04/2022 Active valsartan (DIOVAN) 80 mg tablet Take 1 tablet (80 mg total) by mouth 1 (one) time each day. 01/10/2022 Active memantine (NAMENDA) 10 mg tablet Take 1 tablet (10 mg total) by mouth 2 (two) times a day. 11/14/2021 Active loperamide (IMODIUM) 2 mg capsule Take 1 capsule (2 mg total) by mouth 4 (four) times a day if needed for diarrhea. 11/12/2021 Active clopidogreL (PLAVIX) 75 mg tablet Take 1 tablet (75 mg total) by mouth 1 (one) time each day. 10/17/2021 Active loratadine (CLARITIN) 10 mg tablet Take 1 tablet (10 mg total) by mouth 1 (one) time each day. 10/17/2021 Active donepeziL (ARICEPT) 10 mg tablet Take 1 tablet (10 mg total) by mouth at bedtime. 10/10/2021 Active metoprolol succinate (TOPROL-XL) 25 mg 24 hr tablet Take 1 tablet (25 mg total) by mouth 1 (one) time each day. 10/10/2021 Active glucose 4 gram chewable tablet TAKE 4 TABLETS BY MOUTH NEEDED FOR OTHER. 06/01/2021 Active Glucagon HCl, rDNA, (Glucagon Emergency Kit, human,) 1 mg injection Inject 1 Dose under the skin 1 (one) time if needed for low blood sugar. 04/04/2021 Active Active Problems Problem Noted Date Diagnosed Date Hypertension 04/25/2024 Diabetic neuropathy 04/25/2024 Hypothyroid 04/25/2024 Bipolar 2 disorder 04/25/2024 Dementia 04/25/2024 Depression 04/25/2024 DM retinopathy 07/08/2018 Seizure disorder 09/08/2017 High cholesterol 05/06/2017 Encounters Date Type Department Care Team Description 06/26/2024 Lab Requisition [facility] - Main Lab [address] [place] [phone] Florian Dia MD Type 2 diabetes mellitus with hyperglycemia ([facility]) 06/17/2024 Lab Requisition [facility] Main Lab [address] [place] [phone] Florian Dia MD Acute cough 06/01/2024 Lab Requisition [facility] - Main Lab [address] [place] [phone] Florian Dia MD Type 2 diabetes mellitus without complications ([facility]) 05/07/2024 Lab Requisition [facility] Lab [address] [place] [phone] Florian Dia MD Urinary tract infection, site not specified; Dysuria from Last 3 Months Immunizations Name Administration Dates Next Due DTaP (Infanrix) 6wks to less than 7yo 06/18/2018 Influenza Quadravalent, MDCK , 0.5ml, preservative free (Flucelvax) 6mo and older 01/31/2020 Influenza Quadravalent, MDCK , 0.5ml, with preservative (Flucelvax) 6mo and older 02/03/2018 Influenza trivalent, 0.5mL (Fluad) 65yo and olde r 02/20/2022,03/28/2021 PPD Test 08/06/2017 [facility] SARS-CoV-2 COVID-19, mRNA, LNP-S, preservative free 03/15/2021,09/06/2020 Pneumococcal polysaccharide 23 valent (Pneumovax 23) 2yo and older 06/07/2020,09/16/2018 Tdap Tetanus diptheria acell ular pertussis (Boostrix; Adacel) 7yo and older 09/16/2018 Surgical History Surgery Date Site/Laterality Comments CHOLECYSTECTOMY 2008 PROCEDURE: HISTORICAL CHOLECYSTECTOMY CATARACT EXTRACTION PROCEDURE: HISTORICAL CATARACT REMOVAL Medical History Medical History Date Comments Dementia ([facility]) DX:Dementia ( [facility]) Diabetic neuropathy ([facility]) DX :Diabetic neuropathy ([facility]) Type 2 diabetes, controlled, with neuropathy ([facility]) DX:Type 2 diabetes, controll ed, with neuropathy ([facility]) Bipolar 2 disorder ([facility]) DX: Bipolar 2 disorder ([facility]) Hypertension DX:Hypertension Hypertension DX:Hypertension Depression DX:Depression Hypothyroid DX:Hypothyroid High cholesterol DX:High cholest theresa DM retinopathy ([facility]) 07/08/2018 DX:DM r etinopathy ([facility]) Moderate stage glaucoma 06/07/2019 DX:Moder ate stage glaucoma Family History Medical History Relation Name Comments No Known Problems Father Stomach cancer Mother diabetes Diabetes Other Granddaughter Relation Name Status Comments Father Mother Other Granddaughter Alive Social History Tobacco Use Types Packs/Day Years Used Date Smoking Tobacco: Never Smokeless Tobacco: Never Alcohol Use Standard Drinks/Week Comments No 0 (1 standard drink = 0.6 oz pur e alcohol) Comments Unknown Sex and Gender Information Value Date Recorded Sex Assigned at Not on file Legal Sex Female 12:15 AM EST Gender Identity Not on file Sexual Orientation Not on file Obstetrics History Last Filed Vital Signs Vital Sign Reading Time Taken Comments Blood Pressure 103/61 11/19/2022 10:06 AM EDT Auto Cuff Pulse 66 11/19/2022 10:06 AM EDT Temperature - - Respiratory Rate - - Oxygen Saturation - - Inhaled Oxygen Concentration - - Weight 60.4 kg (133 lb 3.2 oz) 11/20/19 23 10:06 AM EDT Height 157.5 cm (5' 2 ) 11/19/2022 10:0 6 AM EDT Body Mass Index 24.36 11/19/2022 10:06 AM EDT Plan of Treatment Health Maintenance Due Date Last Done Comments Diabetes: Annual Foot Exam 11/14/1965 Diabetes: Annual Retina Eye Exam 11/14/1965 Zoster Vaccines (1 of 2) 11/14/2005 RSV Immunization Patients 60+ Years Old (1 - Risk 60-74 years 1-dose series) 2015 Pneumococcal Vaccine: 50+ Years (2 of 2 - PCV) 06/07/2021 06/07/2020, 09/16/2018 Colorectal Cancer Screening: Colonoscopy 04/06/2022 Depression Screening 04/06/2022 Falls Risk Assessment 04/06/2022 Social Influencers of Health Screening 04/06/2022 Diabetes: Annual Urine Albumin-Creatinine Ratio (uACR) 10/02/2022 10/02/2021 COVID-19 Vaccine ( season) 2023 03/15/2021, 09/06/2020, 08/16/2020 Influenza Vaccine (#1) 2023 , 03/28/2021, 01/31/2020, Additional history exists Breast Cancer Screening 04/09/2024 04/09/20, 01/15/2021, 12/21/2019, Additional history exists Diabetes: Blood Sugar Control Test (HGBA1C) 12/29/2024 06/28/2024, 04/01/2024 Diabetes: Annual GFR (Glomerular Filtration Rate) 04/01/2025 04/01/2024, 02/21/2022 Hypertension/CHF/CAD Annual BMP Blood Test 04/01/2025 04/01/2024, 02/21/2022 Cholesterol Screening (Lipid Panel) 02/21/2027 02/21/2022 DTaP,Tdap,and Td Vaccines (3 - Td or Tdap) 09/16/2028 09/16/2018, 06/18/2018 Osteoporosis Screening (Bone Density Screening) 01/11/2032 01/10/2022 Hepatitis C Screening Completed 11/23/2018 HIB Vaccines Aged Out No longer eligi ble based on patient's age to complete this topic HPV Vaccines Aged Out No longer eligi ble based on patient's age to complete this topic Hepatitis A Vaccines Aged Out No long er eligible based on patient's age to complete this topic Hepatitis B Vaccines Aged Out No long er eligible based on patient's age to complete this topic IPV Vaccines Aged Out No longer eligi ble based on patient's age to complete this topic MMR Vaccines Aged Out No longer eligi ble based on patient's age to complete this topic Meningococcal ACWY Vaccine Aged Out N o longer eligible based on patient's age to complete this topic Meningococcal B Vacine Aged Out No lo nger eligible based on patient's age to complete this topic RSV Immunization Patients Under 20 months Aged Out No longer eligible based on patient's age to complete this topic Varicella Vaccines Aged Out No longer eligible based on patient's age to complete this topic Procedures Procedure Name Priority Date/Time Associated Diagnosis Comments HEMOGLOBIN A1C Routine 06/28/2024 5:33 AM EST Type 2 diabetes mellitus with hyperglycemia (CMS/HCC) [id number], RSV, FLU A AND B QUALITATIVE RT-PCR, LOCAL REFERENCE LAB Routine 06/16/2024 5:10 PM EST Acute cough VALPROIC ACID LEVEL, TOTAL Routine 06/01/2024 5:05 AM EST Type 2 diabetes mellitus without complications (CMS/HCC) URINALYSIS WITH REFLEX MICROSCOPIC Routine 05/07/2024 12:00 AM EST Urinary tract infection, site not specified Dysuria URINALYSIS WITH REFLEX MICROSCOPIC Routine 05/07/2024 12:00 AM EST Urinary tract infection, site not specified Dysuria CULTURE URINE Routine 05/07/2024 12:00 AM EST Urinary tract infection, site not specified Dysuria BASIC METABOLIC PANEL Routine 04/01/2024 6:05 AM EST Type 2 diabetes mellitus with hyperglycemia (CMS/HCC) SCREENING MAMMOGRAPHY BI 2-VIEW BREAST INC CAD Routine 04/09/2022 6:05 PM EST Encounter for screening mammogram for malignant neoplasm of breast LIPID PANEL Routine 02/21/2022 DXA BONE DENSITY STUDY 1+ SITS AXIAL SKEL Routine 01/10/2022 9:48 AM EDT Type 2 diabetes mellitus with diabetic neuropathy, unspecified (CMS/HCC) HM URINE ALBUMIN CREATININE RATIO Routine 10/02/2021 HM HEPATITIS C SCREENING Routine 11/23/2018 from Last 3 Months or Most Recently Relevant to Health Maintenance Results * (ABNORMAL) Hemoglobin A1c (06/28/2024 5:33 AM EST) Hemoglobin A1C 9.2(H) <6.5 % LAB CHEMISTRY METHOD 06/29/2024 2:18 PM EST [facility] Mean Bld Glu Estim. 217 mg/dL LAB CHEMISTRY METHOD 06/29/2024 2:18 PM EST [facility] Blood Venous blood specimen / Unknown Venipuncture / Unknown 06/28/2024 5:33 AM EST 06/28/2024 11:30 AM EST Florian Dia MD LAB BLOOD ORDERABLES Final R esult [facility] [address] [place] [address], * [id number], RSV, Influenza A and B qualitative RT-PCR (06/16/2024 5:10 PM EST) Pathologist [facility] [place] SARS COV-2 Not Detected Not Detected LAB MOLECULAR DIAGNOSTICS METHOD 06/17/2024 1:27 PM EST [facility] Comment: Disclaimer: The manner in which this information is used to guide patient care is the responsibility of the healthcare provider. Testing was performed using the [employer] Al[employer] m SARS-CoV-2 test. This test has been authorized by FDA under an Emergency Use Authorization (EUA). This test is only authorized for the duration of time the declaration that circumstances exist justifying the authorization of the emergency use of in vitro diagnostic tests for detection of SARS-CoV-2 virus and/or diagnosis of COVID-19 infection under section 564(b)(1) of the Act, 21 U.S.C. 360bbb- 3(b)(1), unless the authorization is terminated or revoked sooner. Fact sheet for Healthcare Providers can be found at: https://www.fda.gov/media/994593/download Fact sheet for Patients can be found at: https://www.fda.gov/media/744003/download Influenza A PCR Not Detected Not Detected LAB MOLECULAR DIAGNOSTICS METHOD 06/17/2024 1:27 PM EST [facility] Influenza B PCR Not Detected Not Detected LAB MOLECULAR DIAGNOSTICS METHOD 06/17/2024 1:27 PM EST [facility] RSV PCR Not Detected Not Detected LAB MOLECULAR DIAGNOSTICS METHOD 06/17/2024 1:27 PM EST [facility] Swab Nasopharyngeal structure / Unknown Non-blood Collection / Unknown 06/16/2024 5:10 PM EST 06/17/2024 10:32 AM EST Florian Dia MD LAB MICROBIOLOGY - GENERAL O RDERABLES Final Result Performing Organization Address [facility]/ZIP Co de Phone Number [facility] [address] [place] [address], [place] [phone] * Valproic acid level, total (06/01/2024 5:05 AM EST) [facility] Valproic Acid, Total 51 50 - 100 mcg/mL LAB CHEMISTRY METHOD 06/01/2024 10:38 AM EST [facility] Blood Venous blood specimen / Unknown Venipuncture / Unknown 06/01/2024 5:05 AM EST 06/01/2024 9:37 AM EST Florian Dia MD LAB BLOOD ORDERABLES Final R esult [facility] [address] [place] [address], [place] [phone] * (ABNORMAL) Urinalysis with reflex microscopic (05/07/2024 12:00 AM EST) [facility] Specific Burna Urine 1.026 1.003 - 1.030 LAB URINALYSIS - AUTOMATED METHOD 05/07/2024 10:06 AM [facility] pH, Urine 6.5 5.0 - 8.0 pH LAB URINALYSIS - AUTOMATED METHOD 05/07/2024 10:06 AM [facility] Leukocytes, Urine Moderate(A) Negative LAB URINALYSIS - AUTOMATED METHOD 05/07/2024 10:06 AM [facility] Nitrite, Urine Negative Negative LAB URINALYSIS - AUTOMATED METHOD 05/07/2024 10:06 AM [facility] Protein, Urine Negative <=Trace mg/dL LAB URINALYSIS - AUTOMATED METHOD 05/07/2024 10:06 AM [facility] Glucose, Urine >=1000(A) Negative mg/dL LAB URINALYSIS - AUTOMATED METHOD 05/07/2024 10:06 AM [facility] Ketones, Urine Negative Negative mg/dL LAB URINALYSIS - AUTOMATED METHOD 05/07/2024 10:06 AM [facility] Urobilinogen , Urine 0.2 0.2 - 1.0 mg/dL LAB URINALYSIS - AUTOMATED METHOD 05/07/2024 10:06 AM [facility] Bilirubin, Urine Negative Negative LAB URINALYSIS - AUTOMATED METHOD 05/07/2024 10:06 AM [facility] Blood, Urine Negative Negative LAB URINALYSIS - AUTOMATED METHOD 05/07/2024 10:06 AM [facility] RBC, Urine 8.5(H) 0 - 4 /HPF LAB URINALYSIS - AUTOMATED METHOD 05/07/2024 10:06 AM [facility] WBC, Urine 176.0(H) 0 - 4 /HPF LAB URINALYSIS - AUTOMATED METHOD 05/07/2024 10:06 AM [facility] Squamous Epithelial, Urine 44 0 - 60 /LPF LAB URINALYSIS - AUTOMATED METHOD 05/07/2024 10:06 AM [facility] Bacteria, Urine Negative Negative /HPF LAB URINALYSIS - AUTOMATED METHOD 05/07/2024 10:06 AM [facility] Hyaline Casts, Urine 6.3(H) 0 - 3 /LPF LAB URINALYSIS - AUTOMATED METHOD 05/07/2024 10:06 AM EST [facility] Urine Urine specimen obtained by clean catch procedure / Unknown Non-blood Collection / Unknown 05/07/2024 05/07/2024 9:42 AM EST us Florian Dia MD LAB URINE ORDERABLES Final R esult Performing Organization Address [facility]/ZIP Co de Phone Number [facility] [address] [place] [address], [place] [phone] * Culture urine (05/07/2024 12:00 AM EST) Pathologist [facility] [place] Culture, Urine 50,000-99,000 CFU/mL Mixed urogenital katerin, no uropathogens present. Suggest repeat specimen if clinically indicated. 05/08/2024 10:56 AM [facility] Urine Urine specimen obtained by clean catch procedure / Unknown Non-blood Collection / Unknown 05/07/2024 05/07/2024 9:42 AM EST us Florian Dia MD LAB MICROBIOLOGY - GENERAL O RDERABLES Final Result Performing Organization Address [facility] de Phone Number [facility] [address] [place] [address], [place] [phone] * (ABNORMAL) Basic metabolic panel (04/01/2024 6:05 AM EST) Pathologist [facility] [place] Sodium 130(L) 133 - 145 mmol/L LAB CHEMISTRY METHOD 04/01/2024 10:30 AM [facility] Potassium 4.1 3.5 - 5.5 mmol/L LAB CHEMISTRY METHOD 04/01/2024 10:30 AM [facility] Chloride 94(L) 96 - 110 mmol/L LAB CHEMISTRY METHOD 04/01/2024 10:30 AM [facility] CO2 28 21 - 32 mmol/L LAB CHEMISTRY METHOD 04/01/2024 10:30 AM [facility] Anion Gap 8 3 - 11 LAB CHEMISTRY METHOD 04/01/2024 10:30 AM [facility] Glucose 143(H) 70 - 100 mg/dL LAB CHEMISTRY METHOD 04/01/2024 10:30 AM [facility] BUN 11 5 - 25 mg/dL LAB CHEMISTRY METHOD 04/01/2024 10:30 AM [facility] Creatinine 0.69 0.50 - 1.10 mg/dL LAB CHEMISTRY METHOD 04/01/2024 10:30 AM [facility] eGFR 95 >=60 mL/min/1. 73m2 LAB CHEMISTRY METHOD 04/01/2024 10:30 AM [facility] Comment:Calculation based on the??Chronic Kidney Disease Epidemiology Collaboration (CKD-EPI) equation refit??without adjustment for race. BUN/Creatinine Ratio 15.9 LAB CHEMISTRY METHOD 04/01/2024 10:30 AM [facility] Calcium 8.6 8.5 - 10.5 mg/dL LAB CHEMISTRY METHOD 04/01/2024 10:30 AM [facility] Blood Venous blood specimen / Unknown Venipuncture / Unknown 04/01/2024 6:05 AM EST 04/01/2024 9:03 AM EST Florian Dia MD LAB BLOOD ORDERABLES Final R esult [facility] [address] [place] [address], * SCREENING MAMMOGRAPHY BI 2-VIEW BREAST INC CAD (04/09/2022 6:05 PM EST) Anatomical Region Laterality Modality Radiographic Kamilla ging 01/10/2022 9:47 AM EDT Narrative 04/10/2022 12:38 PM EST This is a summary report. The complete report is available in the patient's medical record. If you cannot access the medical record, please contact the sending organization for a detailed fax or copy. Full field digital screening 2D and tomosynthesis mammography, reviewed with CAD and compared to previous. ??The breasts are composed of fatty and fibroglandular tissue. ??No suspicious mass, architectural distortion or suspicious calcifications are identified. IMPRESSION: : No mammographic evidence of malignancy. BIRADS 1-Negative; N. 5 year breast cancer risk assessment 0.8 % Lifetime breast cancer risk assessment 3.0 % Breast cancer risk category Low (<15%) Procedure Note Radha Allan MD - 06/03/2023 This is a summary report. The complete report is available in thepatient's medical record. If you cannot access the medical record, pleasecontact the sending organization for a detailed fax or copy. Full field digital screening 2D and tomosynthesis mammography, reviewedwith CAD and compared to previous. The breasts are composed of fatty andfibroglandular tissue. No suspicious mass, architectural distortion orsuspicious calcifications are identified. IMPRESSION: : No mammographic evidence of malignancy. BIRADS 1-Negative; N. 5 year breast cancer risk assessment 0.8 % Lifetime breast cancer risk assessment 3.0 % Breast cancer risk category Low (<15%) Alie Barragan MD IMG XR PROCEDURES Final Result * Lipid panel (02/21/2022) LDL/HDL Ratio 2 0 - 4 Triglycerides 97 0 - 150 mg/dL Cholesterol 141 0 - 200 mg/dL HDL 66 >=40 mg/dL LDL Cholesterol 56 0 - 100 mg/dL Blood Venous blood specimen / Unknown Historical Provider LAB BLOOD ORDERABLES Carrie masters Result * DXA BONE DENSITY STUDY 1+ SITS AXIAL SKEL (01/10/2022 9:48 AM EDT) Anatomical Region Laterality Modality Bone Densitometr y 07/10/2021 2:41 PM EDT Narrative 01/11/2022 2:09 PM EDT BONE DENSITY ? Lumbar Spine T-score is +0.5 ?? (SD relative to 20-29 y/o adult) Z-score is +2.3 ??(SD relative to age matched peers) This is normal by criteria defined by the WHO. Left Hip T-score is -1.3 Z-score is -0.2 This is consistent with osteopenia by criteria defined by the WHO.. Impression: Based on the World Health Organization criteria, Shae Landis should be classified as having osteopenia. This patient has a 8.5% risk of major osteoporotic fracture and a 0.8% risk of hip fracture over the next 10 years. (World Health Organization Fracture Risk Assessment) [facility] Department of Internal Medicine recommends using National Osteoporosis Foundation (NOF) guidelines in treatment decisions related to osteoporosis. NOF guidelines suggest considering treatment for postmenopausal women and men aged 50 or older presenting with the following: History of hip or vertebral fracture. T-score less than or equal to -2.5 (DXA) at the femoral neck, total hip, or spine, after appropriate evaluation to exclude secondary causes. Low bone mass (T-score between -1.0 and -2.5 at the femoral neck or spine) AND a 10-year probability of a hip fracture greater than or equal to 3% OR a 10-year probability of a major osteoporosis-related fracture greater than or equal to 20% based on the [place]-adapted WHO algorithm Please note that all treatment decisions require clinical judgment and consideration of individual patient factors, including patient preferences, co-morbidities, previous drug use, risk factors not captured in the FRAX model (e.g., frailty, falls, vitamin D deficiency, increased bone turnover, interval significant decline in bone density) and possible under- or over-estimation of fracture risk by FRAX. Procedure Note Mauricio Jordan MD - 04/16/2022 BONE DENSITY Lumbar Spine T-score is +0.5 (SD relative to 20-29 y/o adult) Z-score is +2.3 (SD relative to age matched peers) This is normal by criteria defined by the WHO. Left Hip T-score is -1.3 Z-score is -0.2 This is consistent with osteopenia by criteria defined by the WHO.. Impression: Based on the World Health Organization criteria, Shae Landis should beclassified as having osteopenia. This patient has a 8.5% risk of majorosteoporotic fracture and a 0.8% risk of hip fracture over the next 10years. (World Health Organization Fracture Risk Assessment) [facility] Department of Internal Medicine recommendsusing National Osteoporosis Foundation (NOF) guidelines in treatmentdecisions related to osteoporosis. NOF guidelines suggest consideringtreatment for postmenopausal women and men aged 50 or older presentingwith the following: History of hip or vertebral fracture. T-score less than or equal to -2.5 (DXA) at the femoral neck, total hip,or spine, after appropriate evaluation to exclude secondary causes. Low bone mass (T-score between -1.0 and -2.5 at the femoral neck or spine)AND a 10-year probability of a hip fracture greater than or equal to 3% ORa 10-year probability of a major osteoporosis-related fracture greaterthan or equal to 20% based on the [place]-adapted WHO algorithm Please note that all treatment decisions require clinical judgment andconsideration of individual patient factors, including patientpreferences, co-morbidities, previous drug use, risk factors not capturedin the FRAX model (e.g., frailty, falls, vitamin D deficiency, increasedbone turnover, interval significant decline in bone density) and possibleunder- or over-estimation of fracture risk by FRAX. 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
--- OUTSIDE RECORDS SUMMARY | 2024-07-01 17:19 | XMS_ITS | Encounter Summary ---
Author Organization [facility] Address [address] [place] [address] Care Team Providers Care Ski Lift Mechanic Name Role Phone Alie Barragan MD Primary Care Provider [phone] Encounter Details Date Type Department Care Team (Latest Contact Info) Description 06/26/[address] [facility] - Main Lab [address] [facility] [place] [address] Florian Dia MD [address] [place] [address] Type 2 diabetes mellitus with hyperglycemia (CMS/HCC) Social History Tobacco Use Types Packs/Day Years Used Date Smoking Tobacco: Never Smokeless Tobacco: Never Alcohol Use Standard Drinks/Week Comments No 0 (1 standard drink = 0.6 oz pur e alcohol) Comments Unknown Sex and Gender Information Value Date Recorded Sex Assigned at Not on file Legal Sex Female 12:15 AM EST Gender Identity Not on file Sexual Orientation Not on file documented as of this encounter Plan of Treatment Not on file documented as of this encounter Procedures Procedure Name Priority Date/Time Associated Diagnosis Comments HEMOGLOBIN A1C Routine 06/28/2024 5:33 AM EST Type 2 diabetes mellitus with hyperglycemia (CMS/HCC) documented in this encounter Results * (ABNORMAL) Hemoglobin A1c (06/28/2024 5:33 AM EST) Hemoglobin A1C 9.2(H) <6.5 % LAB CHEMISTRY METHOD 06/29/2024 2:18 PM EST [facility] Mean Bld Glu Estim. 217 mg/dL LAB CHEMISTRY METHOD 06/29/2024 2:18 PM EST [facility] Blood Venous blood specimen / Unknown Venipuncture / Unknown 06/28/2024 5:33 AM EST 06/28/2024 11:30 AM EST us Florian Dia MD LAB BLOOD ORDERABLES Final R esult [facility] [address] [place] [address], documented in this encounter Visit Diagnoses Diagnosis Type 2 diabetes mellitus with hyperglycemia (CMS/HCC) documented in this encounter Care Teams Ski Lift Mechanic Relationship Specialty Start Date End Date Alie Barragan MD [address] [place] [address] PCP - General Internal Medicine 06/11/21 documented as of this encounter
--- OUTSIDE RECORDS SUMMARY | 2024-07-01 17:19 | XMS_ITS | Encounter Summary ---
Author Organization [employer] Address [address] [facility] [address] [place] [address] Care Team Providers Care Nuclear Fuel Processing Technician Name Role Phone Unavailable Primary Care Provider Unavailabl e Encounter Details Date Type Department Care Team (Latest Contact Info) Description 05/13/2018 Abstract [facility] CONVERSIONS Dental, Provider, DDS Social History Tobacco Use Types Packs/Day Years Used Date Smoking Tobacco: Never Assessed Comments Unknown Sex and Gender Information Value Date Recorded Sex Assigned at Female 02/25/2022 10:34 AM EDT Legal Sex Female 10:34 AM EDT Gender Identity Female 02/25/2022 10:34 AM EDT Sexual Orientation Straight 02/25/2022 10 :34 AM EDT documented as of this encounter Plan of Treatment Not on file documented as of this encounter Visit Diagnoses Not on filedocumented in this encounter
--- OUTSIDE RECORDS SUMMARY | 2024-07-01 17:19 | XMS_ITS | Encounter Summary ---
Author Organization [facility] Address [address] [place] [address] Care Team Providers Care Shipping Support Name Role Phone Alie Barragan MD Primary Care Provider [phone] Encounter Details Date Type Department Care Team (Late st Contact Info) Description 06/17/2024 Lab Requisition [facility] - Main Lab [address] [facility] [place] [address] Florian Dia MD [address] [place] [address] Acute cough Social History Tobacco Use Types Packs/Day Years [...] Procedure Name Priority Date/Time Associated Diagnosis Comments [id number], RSV, FLU A AND B QUALITATIVE RT-PCR, LOCAL REFERENCE LAB Routine 06/16/2024 5:10 PM EST Acute cough documented in this encounter Results * [id number], RSV, Influenza A and B qualitative RT-PCR (06/16/2024 5:10 PM EST) SARS COV-2 Not Detected Not Detected LAB MOLECULAR DIAGNOSTICS METHOD 06/17/2024 1:27 PM EST [facility] Comment: Disclaimer: The manner in which this information is used to guide patient care is the responsibility of the healthcare provider. Testing was performed using the Mindflash Alinity m SARS-CoV-2 test. This test has [...] for Healthcare Providers can be found at: https://www.fda.gov/media/948561/download Fact sheet for Patients can be found at: https://www.fda.gov/media/240833/download Influenza A PCR Not Detected Not Detected LAB MOLECULAR DIAGNOSTICS METHOD 06/17/2024 1:27 PM EST [facility] Influenza B PCR Not Detected Not Detected LAB MOLECULAR DIAGNOSTICS METHOD 06/17/2024 1:27 PM EST [facility] RSV PCR Not Detected Not Detected LAB MOLECULAR DIAGNOSTICS METHOD 06/17/2024 1:27 PM [facility] Swab Nasopharyngeal structure / Unknown Non-blood Collection / Unknown 06/16/2024 5:10 PM EST 06/17/2024 10:32 AM EST Florian Dia MD LAB MICROBIOLOGY - GENERAL O RDERABLES Final Result [facility] [address] [place] [address], documented in this encounter Visit Diagnoses Diagnosis Acute cough documented in this encounter Additional Health Concerns Infection Onset Date Last Indicated Resolved Time Respiratory Rule-Out 06/17/2024 06/16/2024 025 1:27 PM EST documented as of this encounter Care Teams Shipping Support Relationship Specialty Start Date End Date Alie Barragan MD [address] [place] [address] PCP - General Internal Medicine 06/11/21 documented as of this encounter
--- OUTSIDE RECORDS SUMMARY | 2024-07-01 17:19 | XMS_ITS | Encounter Summary ---
Author Organization [facility] Address [address] [place] [address] Care Team Providers Care It Program Engagement Director Name Role Phone Alie Barragan MD Primary Care Provider [phone] Encounter Details Date Type Department Care Team (Late st Contact Info) Description 05/07/2024 Lab Requisition [facility] - Main Lab 299 [facility] [place] [address] Florian Dia MD [address] [place] [address] Urinary tract infection, site not specified; Dysuria Social History Tobacco Use Types Packs/Day Years [...] Procedure Name Priority Date/Time Associated Diagnosis Comments URINALYSIS WITH REFLEX MICROSCOPIC Routine 05/07/2024 12:00 AM EST Urinary tract infection, site not specified Dysuria URINALYSIS WITH REFLEX MICROSCOPIC Routine 05/07/2024 12:00 AM EST Urinary tract infection, site not specified Dysuria CULTURE URINE Routine 05/07/2024 12:00 AM EST Urinary tract infection, site not specified Dysuria documented in this encounter Results * (ABNORMAL) Urinalysis with reflex microscopic (05/07/2024 12:00 AM EST) Specific [place] Urine 1.026 1.003 - 1.030 LAB URINALYSIS - AUTOMATED METHOD 05/07/2024 10:06 AM [facility] pH, Urine 6.5 5.0 - 8.0 pH LAB URINALYSIS - AUTOMATED METHOD 05/07/2024 10:06 AM [facility] Leukocytes, Urine Moderate(A) Negative LAB URINALYSIS - AUTOMATED METHOD 05/07/2024 10:06 AM [facility] Nitrite, Urine Negative Negative LAB URINALYSIS - AUTOMATED METHOD 05/07/2024 10:06 AM [facility] Protein, Urine Negative <=Trace mg/dL LAB URINALYSIS - AUTOMATED METHOD 05/07/2024 10:06 AM [facility] Glucose, Urine >=1000(A) Negative mg/dL LAB URINALYSIS - AUTOMATED METHOD 05/07/2024 10:06 AM [facility] Ketones, Urine Negative Negative mg/dL LAB URINALYSIS - AUTOMATED METHOD 05/07/2024 10:06 AM [facility] Urobilinogen , Urine 0.2 0.2 - 1.0 mg/dL LAB URINALYSIS - AUTOMATED METHOD 05/07/2024 10:06 AM [facility] Bilirubin, Urine Negative Negative LAB URINALYSIS - AUTOMATED METHOD 05/07/2024 10:06 AM [facility] Blood, Urine Negative Negative LAB URINALYSIS - AUTOMATED METHOD 05/07/2024 10:06 AM [facility] RBC, Urine 8.5(H) 0 - 4 /HPF LAB URINALYSIS - AUTOMATED METHOD 05/07/2024 10:06 AM [facility] WBC, Urine 176.0(H) 0 - 4 /HPF LAB URINALYSIS - AUTOMATED METHOD 05/07/2024 10:06 AM [facility] Squamous Epithelial, Urine 44 0 - 60 /LPF LAB URINALYSIS - AUTOMATED METHOD 05/07/2024 10:06 AM [facility] Bacteria, Urine Negative Negative /HPF LAB URINALYSIS - AUTOMATED METHOD 05/07/2024 10:06 AM [facility] Hyaline Casts, Urine 6.3(H) 0 - 3 /LPF LAB URINALYSIS - AUTOMATED METHOD 05/07/2024 10:06 AM [facility] Urine Urine specimen obtained by clean catch procedure / Unknown Non-blood Collection / Unknown 05/07/2024 05/07/2024 9:42 AM EST Florian Dia MD LAB URINE ORDERABLES Final R esult Performing Organization Address [facility]/ZIP Co de Phone Number [facility] [address] [place] [address], [place] [phone] * Culture urine (05/07/2024 12:00 AM EST) Culture, Urine 50,000-99,000 CFU/mL Mixed urogenital katerin, no uropathogens present. Suggest repeat specimen if clinically indicated. 05/08/2024 10:56 AM [facility] Urine Urine specimen obtained by clean catch procedure / Unknown Non-blood Collection / Unknown 05/07/2024 05/07/2024 9:42 AM EST Florian Dia MD LAB MICROBIOLOGY - GENERAL O RDERABLES Final Result Performing Organization Address [facility]/ZIP Co de Phone Number [facility] [address] [place] [address], [place] [phone] documented in this encounter Visit Diagnoses Diagnosis Urinary tract infection, site not specified Dysuria documented in this encounter Additional Health Concerns Infection Onset Date Last Indicated Resolved Time Respiratory Rule-Out 06/17/2024 06/16/2024 025 1:27 PM EST documented as of this encounter Care Teams It Program Engagement Director Relationship Specialty Start Date End Date Alie Barragan MD [address] [place] [address] PCP - General Internal Medicine 06/11/21 documented as of this encounter
--- OUTSIDE RECORDS SUMMARY | 2024-07-01 17:19 | XMS_ITS | Clinical Summary ---
Author Organization [employer] Address [address] [facility] 7t [place] [address] Care Team Providers Care Power Line Installer Name Role Phone Unavailable Primary Care Provider Unavailabl e Social History Tobacco Use Types Packs/Day Years Used Date Smoking Tobacco: Never Assessed Comments Unknown Sex and Gender Information Value Date Recorded Sex Assigned at Female 02/25/2022 10:34 AM EDT Legal Sex Female 10:34 AM EDT Gender Identity Female 02/25/2022 10:34 AM EDT Sexual Orientation Straight 02/25/2022 10 :34 AM EDT Plan of Treatment Health Maintenance Due Date Last Done Comments CT Colonography 1955 Colonoscopy 1955 Colorectal Cancer Screening 1955 Depression Screening 1955 FIT DNA/Cologuard 1955 FIT 1955 FOBT 1955 Sigmoidoscopy 1955 Alcohol/Substance Use Screening 1967 Tobacco Screening 1967 DTaP/Tdap/Td Vaccines (1 - Tdap) 11/14/1974 Mammogram 1995 Pneumococcal Vaccine: 50+ Ye ars (1 of 1 - PCV) 11/14/2005 Zoster Vaccines (1 of 2) 11/14/2005 COVID-19 Vaccine ( - 2023-2 5 season) 2023 Influenza Vaccine (#1) 2023 RSV Patients and Pa tients Aged 60 years or older (1 - 1-dose 75+ series) 11/14/2030 HIB Vaccines Aged Out No longer eligi [...] patient's age to complete this topic Meningococcal Vaccine Aged Out No noemi jerrell eligible based on patient's age to complete this topic RSV under 20 months Aged Out No longe r eligible based on patient's age to complete this topic Rotavirus Vaccines Aged Out No longer eligible based on patient's age to complete this topic
--- OUTSIDE RECORDS SUMMARY | 2024-07-01 17:19 | XMS_ITS | Encounter Summary ---
Author Organization [facility] Address [address] [place] [address] Care Team Providers Care Barrel Endshake Adjuster Name Role Phone Alie Barragan MD Primary Care Provider [phone] Encounter Details Date Type Department Care Team (Late st Contact Info) Description 03/16/2024 Lab Requisition [facility] - Main Lab [address] [facility] [place] [address] Florian Dia MD [address] [place] [address] Major depressive disorder, single episode, mild (CMS/HCC) Social History Tobacco Use Types Packs/Day [...] Procedure Name Priority Date/Time Associated Diagnosis Comments VALPROIC ACID LEVEL, TOTAL Routine 03/16/2024 6:00 AM EST Major depressive disorder, single episode, mild (CMS/HCC) documented in this encounter Results * Valproic acid level, total (03/16/2024 6:00 AM EST) Valproic Acid, Total 88 50 - 100 mcg/mL LAB CHEMISTRY METHOD 03/16/2024 10:23 AM EST [facility] ([facility] Blood Venous blood specimen / Unknown Venipuncture / Unknown 03/16/2024 6:00 AM EST 03/16/2024 9:47 AM EST us Florian Dia MD LAB BLOOD ORDERABLES Final R esult [facility] ([facility]) [facility] [address] [place] [address], documented in this encounter Visit Diagnoses Diagnosis Major depressive disorder, single episode, mild (CMS/HCC) Major depressive disorder, single episode, mild documented in this encounter Additional Health Concerns Infection Onset Date Last Indicated Resolved Time Respiratory Rule-Out 06/17/2024 06/16/2024 025 1:27 PM EST documented as of this encounter Care Teams Barrel Endshake Adjuster Relationship Specialty Start Date End Date Alie Barragan MD [address] [place] [address] PCP - General Internal Medicine 06/11/21 documented as of this encounter
--- OUTSIDE RECORDS SUMMARY | 2024-07-01 17:19 | XMS_ITS | Encounter Summary ---
Author Organization [facility] Address [address] [place] [address] Care Team Providers Care Office Support Specialist Name Role Phone Alie Barragan MD Primary Care Provider Encounter Details Date Type Department Care Team (Latest Contact Info) Description 04/01/2024 Lab Requisition [facility] - Main Lab 299 [facility] [place] [address] Florian Dia MD [address] [place] [address] Type 2 diabetes mellitus with hyperglycemia (CMS/HCC) [...] Procedure Name Priority Date/Time Associated Diagnosis Comments COMPLETE BLOOD COUNT Routine 04/01/2024 6:05 AM EST Type 2 diabetes mellitus with hyperglycemia (CMS/HCC) THYROID STIMULATING HORMONE Routine 04/01/2024 6:05 AM EST Type 2 diabetes mellitus with hyperglycemia (CMS/HCC) HEMOGLOBIN A1C Routine 04/01/2024 6:05 AM EST Type 2 diabetes mellitus with hyperglycemia (CMS/HCC) BASIC METABOLIC PANEL Routine 04/01/2024 6:05 AM EST Type 2 diabetes mellitus with hyperglycemia (CMS/HCC) documented in this encounter Results * (ABNORMAL) Hemoglobin A1c (04/01/2024 6:05 AM EST) [facility] Hemoglobin A1C 9.8(H) <6.5 % LAB CHEMISTRY METHOD 04/01/2024 11:41 AM EST [facility] Mean Bld Glu Estim. 235 mg/dL LAB CHEMISTRY METHOD 04/01/2024 11:41 AM EST [facility] Blood Venous blood specimen / Unknown Venipuncture / Unknown 04/01/2024 6:05 AM EST 04/01/2024 9:03 AM EST us Florian Dia MD LAB BLOOD ORDERABLES Final R esult Performing Organization Address [facility]/ZIP Co de Phone Number [facility] [address] [place] [address], [place] [phone] * Thyroid stimulating hormone (04/01/2024 6:05 AM EST) [facility] TSH 2.63 0.40 - 4.00 mcIU/mL LAB CHEMISTRY METHOD 04/01/2024 10:41 AM EST [facility] Blood Venous blood specimen / Unknown Venipuncture / Unknown 04/01/2024 6:05 AM EST 04/01/2024 9:03 AM EST Florian Dia MD LAB BLOOD ORDERABLES Final R esult Performing Organization Address City/[facility]/ZIP Co de Phone Number [facility] [address] [place] [address], [place] [phone] * (ABNORMAL) Basic metabolic panel (04/01/2024 6:05 AM EST) [facility] Sodium 130(L) 133 - 145 mmol/L LAB CHEMISTRY METHOD 04/01/2024 10:30 AM EST [facility] Potassium 4.1 3.5 - 5.5 mmol/L LAB CHEMISTRY METHOD 04/01/2024 10:30 AM [facility] Chloride 94(L) 96 - 110 mmol/L LAB CHEMISTRY METHOD 04/01/2024 10:30 AM [facility] CO2 28 21 - 32 mmol/L LAB CHEMISTRY METHOD 04/01/2024 10:30 AM [facility] Anion Gap 8 3 - 11 LAB CHEMISTRY METHOD 04/01/2024 10:30 AM [facility] Glucose 143(H) 70 - 100 mg/dL LAB CHEMISTRY METHOD 04/01/2024 10:30 AM [facility] BUN 11 5 - 25 mg/dL LAB CHEMISTRY METHOD 04/01/2024 10:30 AM [facility] Creatinine 0.69 0.50 - 1.10 mg/dL LAB CHEMISTRY METHOD 04/01/2024 10:30 AM [facility] eGFR 95 >=60 mL/min/1. 73m2 LAB CHEMISTRY METHOD 04/01/2024 10:30 AM [facility] Comment:Calculation based on the??Chronic Kidney Disease Epidemiology Collaboration (CKD-EPI) equation refit??without adjustment for race. BUN/Creatinine Ratio 15.9 LAB CHEMISTRY METHOD 04/01/2024 10:30 AM [facility] Calcium 8.6 8.5 - 10.5 mg/dL LAB CHEMISTRY METHOD 04/01/2024 10:30 AM [facility] Blood Venous blood specimen / Unknown Venipuncture / Unknown 04/01/2024 6:05 AM EST 04/01/2024 9:03 AM EST us Florian Dia MD LAB BLOOD ORDERABLES Final R esult [facility] [address] [place] [address], * (ABNORMAL) Complete blood count (04/01/2024 6:05 AM EST) [facility] Signature WBC 7.4 4.8 - 10.8 K/mcL LAB HEMETOLOGY METHOD 04/01/2024 10:15 AM [facility] RBC 3.40(L) 3.80 - 4.80 M/mcL LAB HEMETOLOGY METHOD 04/01/2024 10:15 AM [facility] Hemoglobin 11.3(L) 11.5 - 16.0 g/dL LAB HEMETOLOGY METHOD 04/01/2024 10:15 AM [facility] Hematocrit 33.2(L) 35.0 - 47.0 % LAB HEMETOLOGY METHOD 04/01/2024 10:15 AM [facility] MCV 97.6 79.0 - 98.0 FL LAB HEMETOLOGY METHOD 04/01/2024 10:15 AM [facility] MCH 33.2(H) 27.0 - 32.0 pcg LAB HEMETOLOGY METHOD 04/01/2024 10:15 AM [facility] MCHC 34.0 32.0 - 37.0 g/dL LAB HEMETOLOGY METHOD 04/01/2024 10:15 AM [facility] RDW 13.2 11.0 - 15.0 % LAB HEMETOLOGY METHOD 04/01/2024 10:15 AM [facility] Platelets 198 130 - 400 K/mcL LAB HEMETOLOGY METHOD 04/01/2024 10:15 AM [facility] MPV 10.0 7.0 - 11.0 FL LAB HEMETOLOGY METHOD 04/01/2024 10:15 AM [facility] NRBC 0.0 <1.0 % LAB HEMETOLOGY METHOD 04/01/2024 10:15 AM [facility] NRBC Absolute 0.00 <0.10 K/mcL LAB HEMETOLOGY METHOD 04/01/2024 10:15 AM EST [facility] Blood Venous blood specimen / Unknown Venipuncture / Unknown 04/01/2024 6:05 AM EST 04/01/2024 9:03 AM EST us Florian Dia MD LAB BLOOD ORDERABLES Final R esult [facility] [address] [place] [address], documented in this encounter Visit Diagnoses Diagnosis Type 2 diabetes mellitus with hyperglycemia (CMS/HCC) documented in this encounter Additional Health Concerns Infection Onset Date Last Indicated Resolved Time Respiratory Rule-Out 06/17/2024 06/16/2024 025 1:27 PM EST documented as of this encounter Care Teams Office Support Specialist Relationship Specialty Start Date End Date Alie Barragan MD [address] [place] [address] PCP - General Internal Medicine 06/11/21 documented as of this encounter
--- OUTSIDE RECORDS SUMMARY | 2024-07-01 17:19 | XMS_ITS | Encounter Summary ---
Author Organization [facility] Address [address] [place] [address] Care Team Providers Care Process Expert Name Role Phone Alie Barragan MD Primary Care Provider [phone] Encounter Details Date Type Department Care Team (Latest Contact Info) Description 06/01/2024 Lab Requisition [facility] - Main Lab [address] [facility] [address] [place] [address] Florian Dia MD [address] [place] [address] Type 2 diabetes mellitus without complications (CMS/HCC) Social History Tobacco Use Types Packs/Day [...] Diagnosis Comments VALPROIC ACID LEVEL, TOTAL Routine 06/01/2024 5:05 AM EST Type 2 diabetes mellitus without complications (CMS/HCC) documented in this encounter Results * Valproic acid level, total (06/01/2024 5:05 AM EST) Valproic Acid, Total 51 50 - 100 mcg/mL LAB CHEMISTRY METHOD 06/01/2024 10:[address] [facility] Blood Venous blood specimen / Unknown Venipuncture / Unknown 06/01/2024 5:05 AM EST 06/01/2024 9:37 AM EST us Florian Dia MD LAB BLOOD ORDERABLES Final R esult [facility] ([facility] [address] [place] [address], documented in this encounter Visit Diagnoses Diagnosis Type 2 diabetes mellitus without complications (CMS/HCC) documented in this encounter Additional Health Concerns Infection Onset Date Last Indicated Resolved Time Respiratory Rule-Out 06/17/2024 06/16/2024 025 1:27 PM EST documented as of this encounter Care Teams Process Expert Relationship Specialty Start Date End Date Alie Barragan MD [address] [place] [address] PCP - General Internal Medicine 06/11/21 documented as of this encounter
== END 2024-07-01 14:07 | disposition home or self-care (01) ==
LOC: HO.MAMMO 14:06
PROVIDERS: Visit Provider Emergency Medicine
DX: Z12.31 Encounter for screening mammogram for malignant neoplasm of breast (principal)
CPT/HCPCS: 77063; 77067

== ENCOUNTER → 2024-07-01 14:30 | Outpatient (BNV) | payer MEDICAID, SELFPAY | PROVIDERS: Visit Provider Internal Medicine | DX: Z12.31 Encounter for screening mammogram for malignant neoplasm of breast (principal) | CPT/HCPCS: 77063; 77067 ==

== ENCOUNTER 2024-08-25 13:55 | Outpatient (AMB) | payer MEDICAID, SELFPAY ==
--- NOTE | 2024-08-25 14:04 | A.OFFVIS_ITS ---
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: RETORT KILN BURNER Prolapsed vagina/External ref Intake Note: c/o of vaginal bleeding x 2 weeks Wind Development Director Required: Yes Wind Development Director Language: Hardware Design Engineer Services: Wind Development Director Present (in person) Wind Development Director Name: Luna BACA Information Interpreted: non-clinical & clinical Mortar Worker: Mortar Worker Present (Luna BACA) Accompanied by: Employee Allergies aspirin [ASPIRIN] Allergy (Unknown, Verified 08/25/24 14:11) UNKNOWN Post menopausal: Yes HPI Comments Details: Presenting complaining of a bulge per vagina addition to an episode of vaginal bleeding that started 2 weeks ago. 07/20 mammogram BI-RADS 1 Last co testing? PFS Medical History Hypertension Hypothyroidism Dementia Major neurocognitive disorder Hyperlipidemia Diabetes Surgical History Hx of appendectomy Family History Maternal Grandmother HTN (hypertension) Diabetes Mother HTN (hypertension) Diabetes Stomach cancer Other Major neurocognitive disorder Social History Household Members: None Household Members Other:: patient resides in a intermediate and she has a room-mate Housing: Shelter Alcohol intake: former Patient Tobacco Use Status: Never used Tobacco Advance Directives Date on File: 11/12/22 service: No Current occupational status: retired Sexual orientation: Straight/Heterosexual Female Reproductive History Menstrual Total pregnancies: 2 Full term: 2 Number of Living Children: 2 Review of Systems Const All systems reviewed & are unremarkable except as noted in HPI and below Physical Exam Vital Signs: Last Vital Signs BP 132/80 08/25/24 14:09 BMI result Body Mass Index 24.8 General: Yes no CVA tenderness External Female Exam: normal external appearance and normal appearance of the urethra Speculum Exam - Vagina: abnormal appearance of the vagina (Moderate Cystocele central and bilateral paravaginal defect), normal palpation, no lesions and no masses Speculum Exam - Cervix: normal appearance of the cervix, normal palpation, no lesions, no masses and nontender Bimanual exam- vagina & uterus: normal bimanual exam, normal palpation, uterine size normal, normal palpation, uterine shape normal, No Cervical tenderness present and non-tender Bimanual Exam- Adnexa, other: normal adnexae Back/Spine/Pelvis Back: no CVA tenderness Assessment & Plan Assessment & Plan (1) Female cystocele: Comment: Central and bilateral paravaginal defects Code(s): N81.10 - Cystocele, unspecified Category: Medical Plan: Discussed with the patient the finding on pelvic exam, recommended pessary trial next visit. Instructions given the patient and her chief nursing officer to schedule a follow-up appointment for a pessary trial (2) Postmenopausal bleeding: Code(s): N95.0 - Postmenopausal bleeding Category: Medical Plan: Discussed with the patient the differential diagnosis of post menopausal bleeding with normal pelvic exam including but not limited to, endometrial hyperplasia, cancer, polyps and other causes; co testing done, recommended ultrasound to measure the endometrial stripe; discussed with the patient that if the endometrial thickness is 4 mm or less the negative predictive value of endo metrial pathology is 99%, otherwise If endometrial thickness is more than 4 mm will proceed with endometrial sampling versus hysteroscopy D&C polypectomy depending on the ultrasound findings. Instructed the patient to schedule an ultrasound with a follow-up appointment in 2 weeks. All questions answered, the patient verbalized understanding and agreed with the plan. Plan and diagnosis were written on intermediate she to communicate with the intermediatehome health provider the plan of care in addition it was communicated that the patient has daughter is her healthcare proxy, paperwork regarding healthcare proxy was requested from the intermediate to be part of the legal documents in the patient's chart. In addition requested that the patient has daughter will be present during next visit for a possible endometrial biopsy in case procedure consent is required. This note was generated with a voice recognition program. Some errors may have been overlooked during the review of this note. Sometimes these errors may affect the content or meaning of a given sentence. Orders: Orders US pelvic and transvaginal Today N95.0 - Postmenopausal bleeding Coding Level of Care Code Est Pt Level 3 (12937) Diagnoses Female cystocele N81.10 Postmenopausal bleeding N95.0
[2024-08-25 14:09] VITALS: BP 132/80; BMI 24.8
--- OUTSIDE RECORDS SUMMARY | 2024-08-25 15:09 | XMS_ITS | Encounter Summary ---
Author Organization [facility] Address [address] [place] [address] Care Team Providers Care Overhead Crane Inspector Name Role Phone Alie Barragan MD Primary Care Provider [phone] Encounter Details Date Type Department Care Team (Late st Contact Info) Description 03/16/2024 Lab Requisition [facility] - Main Lab [address] [facility] [place] [address] Florian Dia MD [address] [place] [address] Major depressive disorder, single episode, mild (CMS/HCC V24) Social History Tobacco Use Types Packs/Day Years [...] LAB CHEMISTRY METHOD 03/16/2024 10:23 AM EST [facility] Blood Venous blood specimen / Unknown Venipuncture / Unknown 03/16/2024 6:00 AM EST 03/16/2024 9:47 AM EST us Florian Dia MD LAB BLOOD ORDERABLES Final R esult [facility] [address] [place] [address], documented in this encounter Visit Diagnoses Diagnosis Major depressive disorder, single episode, mild (CMS/HCC V24) Major depressive disorder, single episode, mild documented in this encounter Additional Health Concerns Infection Onset Date Last Indicated Resolved Time Respiratory Rule-Out 06/17/2024 06/16/2024 025 1:27 PM EST documented as of this encounter Care Teams Overhead Crane Inspector Relationship Specialty Start Date End Date Alie Barragan MD [address] [place] [address] PCP - General Internal Medicine 06/11/21 documented as of this encounter
--- OUTSIDE RECORDS SUMMARY | 2024-08-25 15:09 | XMS_ITS | Encounter Summary ---
Author Organization [facility] Address [address] [place] [address] Care Team Providers Care Retail Pharmacist Name Role Phone Alie Barragan MD Primary Care Provider [phone] Encounter Details Date Type Department Care Team (Latest Contact Info) Description 08/23/2024 Lab Requisition [facility] - Main Lab [address] [facility] [place] [address] Florian Dia MD [address] [place] [address] Type 2 diabetes mellitus with hyperglycemia (CMS/HCC V24, CMS/HCC V28); Unspecified dementia, unspecified severity, with other behavioral disturbance (CMS/HCC V24, CMS/HCC V28) Social History Tobacco Use Types Packs/Day Years [...] Associated Diagnosis Comments COMPLETE BLOOD COUNT Routine 08/23/2024 5:42 AM EDT Type 2 diabetes mellitus with hyperglycemia (CMS/HCC V24, CMS/HCC V28) Unspecified dementia, unspecified severity, with other behavioral disturbance (CMS/HCC V24, CMS/HCC V28) BASIC METABOLIC PANEL Routine 08/23/2024 5:42 AM EDT Type 2 diabetes mellitus with hyperglycemia (CMS/HCC V24, CMS/HCC V28) Unspecified dementia, unspecified severity, with other behavioral disturbance ([facility] V24, [facility] V28) documented in this encounter Results * (ABNORMAL) Basic metabolic panel (08/23/2024 5:42 AM EDT) Sodium 138 133 - 145 mmol/L LAB CHEMISTRY METHOD 08/23/2024 11:[address] [facility] Potassium 4.3 3.5 - 5.5 mmol/L LAB CHEMISTRY METHOD 08/23/2024 11:[address] [facility] Chloride 102 96 - 110 mmol/L LAB CHEMISTRY METHOD 08/23/2024 11:[address] [facility] CO2 26 21 - 32 mmol/L LAB CHEMISTRY METHOD 08/23/2024 11:[address] [facility] Anion Gap 10 3 - 11 LAB CHEMISTRY METHOD 08/23/2024 11:[address] [facility] Glucose 110(H) 70 - 100 mg/dL LAB CHEMISTRY METHOD 08/23/2024 11:[address] [facility] BUN 12 5 - 25 mg/dL LAB CHEMISTRY METHOD 08/23/2024 11:[address] [facility] Creatinine 0.74 0.50 - 1.10 mg/dL LAB CHEMISTRY METHOD 08/23/2024 11:[address] [facility] eGFR 88 >=60 mL/min/1. 73m2 LAB CHEMISTRY METHOD 08/23/2024 11:[address] [facility] Comment:Calculation based on the??Chronic Kidney Disease Epidemiology Collaboration (CKD-EPI) equation refit??without adjustment for race. BUN/Creatinine Ratio 16.2 LAB CHEMISTRY METHOD 08/23/2024 11:[address] [facility] Calcium 9.6 8.5 - 10.5 mg/dL LAB CHEMISTRY METHOD 08/23/2024 11:[address] [facility] Blood Venous blood specimen / Unknown Venipuncture / Unknown 08/23/2024 5:42 AM EDT 08/23/2024 9:53 AM EDT Florian Dia MD LAB BLOOD ORDERABLES Final R esult [facility] [address] [place] [address], * (ABNORMAL) Complete blood count (08/23/2024 5:42 AM EDT) WBC 6.3 4.8 - 10.8 K/mcL LAB HEMETOLOGY METHOD 08/23/2024 10:37 AM EDT [facility] RBC 3.80 3.80 - 4.80 M/mcL LAB HEMETOLOGY METHOD 08/23/2024 10:37 AM EDT [facility] Hemoglobin 12.6 11.5 - 16.0 g/dL LAB HEMETOLOGY METHOD 08/23/2024 10:37 AM EDT [facility] Hematocrit 37.9 35.0 - 47.0 % LAB HEMETOLOGY METHOD 08/23/2024 10:[address] [facility] MCV 99.2(H) 79.0 - 98.0 FL LAB HEMETOLOGY METHOD 08/23/2024 10:37 AM EDT [facility] MCH 33.0(H) 27.0 - 32.0 pcg LAB HEMETOLOGY METHOD 08/23/2024 10:37 AM T [facility] MCHC 33.2 32.0 - 37.0 g/dL LAB HEMETOLOGY METHOD 08/23/2024 10:[address] [facility] RDW 14.2 11.0 - 15.0 % LAB HEMETOLOGY METHOD 08/23/2024 10:37 AM EDT [facility] Platelets 170 130 - 400 K/mcL LAB HEMETOLOGY METHOD 08/23/2024 10:37 AM EDT [facility] MPV 10.4 7.0 - 11.0 FL LAB HEMETOLOGY METHOD 08/23/2024 10:37 AM EDT [facility] NRBC 0.0 <1.0 % LAB HEMETOLOG METHOD 08/23/2024 10:37 AM EDT [facility] NRBC Absolute 0.00 <0.10 K/mcL LAB HEMETOLOGY METHOD 08/23/2024 10:37 AM EDT [facility] Blood Venous blood specimen / Unknown Venipuncture / Unknown 08/23/2024 5:42 AM EDT 08/23/2024 9:53 AM EDT us Florian Dia MD LAB BLOOD ORDERABLES Final R esult [facility] [address] [place] [address], documented in this encounter Visit Diagnoses Diagnosis Type 2 diabetes mellitus with hyperglycemia (CMS/HCC V24, CMS/HCC V28) Unspecified dementia, unspecified severity, with other behavioral disturbance (CMS/HCC V24, CMS/HCC V28) documented in this encounter Care Teams Retail Pharmacist Relationship Specialty Start Date End Date Alie Barragan MD [address] [place] [address] PCP - General Internal Medicine 06/11/21 documented as of this encounter
--- OUTSIDE RECORDS SUMMARY | 2024-08-25 15:09 | XMS_ITS | Encounter Summary ---
Author Organization [facility] Address [address] [place] [address] Care Team Providers Care Business Risk Analyst Name Role Phone Alie Barragan MD Primary Care Provider [phone] Encounter Details Date Type Department Care Team (Latest Contact Info) Description 08/13/2024 Lab Requisition [facility] - Main Lab [address] [facility] [place] [address] Florian Dia MD [address] [place] [address] Anemia, unspecified; Type 2 diabetes mellitus without complications (CMS/HCC V24, CMS/HCC V28); Hyperlipidemia, unspecified; Hypothyroidism, unspecified Social History Tobacco Use Types Packs/Day Years [...] Procedure Name Priority Date/Time Associated Diagnosis Comments THYROID STIMULATING HORMONE WITH REFLEX TO FREE T4 AND FREE T3 Routine 08/13/2024 6:42 AM EDT Anemia, unspecified Type 2 diabetes mellitus without complications (CMS/HCC V24, CMS/HCC V28) Hyperlipidemia, unspecified Hypothyroidism, unspecified LIPID PANEL WITH REFLEX TO DIRECT LDL Routine 08/13/2024 6:42 AM EDT Anemia, unspecified Type 2 diabetes mellitus without complications (CMS/HCC V24, CMS/HCC V28) Hyperlipidemia, unspecified Hypothyroidism, unspecified CBC WITH AUTO DIFFERENTIAL Routine 08/13/2024 6:42 AM EDT Anemia, unspecified Type 2 diabetes mellitus without complications [place] [place], [facility] V28) Hyperlipidemia, unspecified Hypothyroidism, unspecified VITAMIN D 25 HYDROXY Routine 08/13/2024 6:42 AM EDT Anemia, unspecified Type 2 diabetes mellitus without complications ([facility] V24, [facility] V28) Hyperlipidemia, unspecified Hypothyroidism, unspecified CBC AND DIFFERENTIAL Routine 08/13/2024 6:42 AM EDT Anemia, unspecified Type 2 diabetes mellitus without complications ([facility] [place], [facility] V28) Hyperlipidemia, unspecified Hypothyroidism, unspecified COMPREHENSIVE METABOLIC PANEL Routine 08/13/2024 6:42 AM EDT Anemia, unspecified Type 2 diabetes mellitus without complications ([facility] [place]24, [facility] V28) Hyperlipidemia, unspecified Hypothyroidism, unspecified documented in this encounter Results * (ABNORMAL) CBC auto differential (08/13/2024 6:42 AM EDT) [facility] WBC 5.3 4.8 - 10.8 K/mcL LAB HEMETOLOGY METHOD 08/13/2024 10:03 AM [facility] RBC 3.50(L) 3.80 - 4.80 M/mcL LAB HEMETOLOGY METHOD 08/13/2024 10:03 AM [facility] Hemoglobin 11.3(L) 11.5 - 16.0 g/dL LAB HEMETOLOGY METHOD 08/13/2024 10:03 AM [facility] Hematocrit 33.9(L) 35.0 - 47.0 % LAB HEMETOLOGY METHOD 08/13/2024 10:03 AM [facility] MCV 96.6 79.0 - 98.0 FL LAB HEMETOLOGY METHOD 08/13/2024 10:03 AM [facility] MCH 32.2(H) 27.0 - 32.0 pcg LAB HEMETOLOGY METHOD 08/13/2024 10:03 AM [facility] MCHC 33.3 32.0 - 37.0 g/dL LAB HEMETOLOGY METHOD 08/13/2024 10:03 AM [facility] RDW 13.3 11.0 - 15.0 % LAB HEMETOLOGY METHOD 08/13/2024 10:03 AM [facility] Platelets 143 130 - 400 K/mcL LAB HEMETOLOGY METHOD 08/13/2024 10:03 AM [facility] MPV 10.2 7.0 - 11.0 FL LAB HEMETOLOGY METHOD 08/13/2024 10:03 AM [facility] NRBC 0.0 <1.0 % LAB HEMETOLOGY METHOD 08/13/2024 10:03 AM [facility] NRBC Absolute 0.00 <0.10 K/mcL LAB HEMETOLOGY METHOD 08/13/2024 10:03 AM [facility] Neutrophils Relative 41.1 % LAB HEMETOLOGY METHOD 08/13/2024 10:03 AM [facility] Lymphocytes Relative 40.8 % LAB HEMETOLOGY METHOD 08/13/2024 10:03 AM [facility] Monocytes Relative 11.0 % LAB HEMETOLOGY METHOD 08/13/2024 10:03 AM [facility] Eosinophils Relative 5.9 % LAB HEMETOLOGY METHOD 08/13/2024 10:03 AM [facility] Basophils Relative 0.6 % LAB HEMETOLOGY METHOD 08/13/2024 10:03 AM [facility] Immature Granulocytes Relative 0.6 % LAB HEMETOLOGY METHOD 08/13/2024 10:03 AM EDT [facility] Neutrophils Absolute 2.16 1.50 - 7.00 K/mcL LAB HEMETOLOGY METHOD 08/13/2024 10:03 AM EDT [facility] Lymphocytes Absolute 2.14 1.00 - 5.00 K/mcL LAB HEMETOLOGY METHOD 08/13/2024 10:03 AM EDT [facility] Monocytes Absolute 0.58 0.20 - 1.00 K/[facility] LAB HEMETOLOGY METHOD 08/13/2024 10:03 AM EDT [facility] Eosinophils Absolute 0.31 0.00 - 0.50 K/[facility] LAB HEMETOLOGY METHOD 08/13/2024 10:03 AM EDT [facility] Basophils Absolute 0.03 0.00 - 0.20 K/mcL LAB HEMETOLOGY METHOD 08/13/2024 10:03 AM EDT [facility] Immature Granulocytes Absolute 0.03 0.00 - 0.03 K/[facility] LAB HEMETOLOGY METHOD 08/13/2024 10:03 AM EDT [facility] Blood Venous blood specimen / Unknown Venipuncture / Unknown 08/13/2024 6:42 AM EDT 08/13/2024 8:45 AM EDT us Florian Dia MD LAB BLOOD ORDERABLES Final R esult [facility] [address] [place] [address], * (ABNORMAL) Vitamin D 25 hydroxy (08/13/2024 6:42 AM EDT) Vit D, 25-Hydroxy 19.3(L) 30.0 - 80.0 ng/mL LAB CHEMISTRY METHOD 08/13/2024 11:15 AM EDT [facility] Blood Venous blood specimen / Unknown Venipuncture / Unknown 08/13/2024 6:42 AM EDT 08/13/2024 8:45 AM EDT us Florian Dia MD LAB BLOOD ORDERABLES Final R esult Performing Organization Address [facility]/ZIP Co de Phone Number [facility] [address] [place] [address], [place] [phone] * Thyroid stimulating hormone with reflex to free t4 and free t3 (08/13/2024 6:42 AM EDT) [facility] TSH 2.74 0.40 - 4.00 mcIU/mL LAB CHEMISTRY METHOD 08/13/2024 11:15 AM EDT [facility] Blood Venous blood specimen / Unknown Venipuncture / Unknown 08/13/2024 6:42 AM EDT 08/13/2024 8:45 AM EDT Florian Dia MD LAB BLOOD ORDERABLES Final R esult Performing Organization Address City/[facility]/ZIP Co de Phone Number [facility] [address] [place] [address], [place] [phone] * Lipid panel with reflex to direct LDL (08/13/2024 6:42 AM EDT) [facility] Cholesterol 102 0 - 200 mg/dL LAB CHEMISTRY METHOD 08/13/2024 10:24 AM EDT [facility] Triglycerides 84 0 - 150 mg/dL LAB CHEMISTRY METHOD 08/13/2024 10:24 AM EDT [facility] HDL 53 >=40 mg/dL LAB CHEMISTRY METHOD 08/13/2024 10:24 AM EDT [facility] LDL Calculated 32 0 - 100 mg/dL LAB CHEMISTRY METHOD 08/13/2024 10:24 AM EDT [facility] VLDL Cholesterol Tim 16.8 mg/dL LAB CHEMISTRY METHOD 08/13/2024 10:24 AM EDT [facility] Non HDL Chol. (LDL+VLDL) 49 <145 mg/dL LAB CHEMISTRY METHOD 08/13/2024 10:24 AM [facility] Chol/HDL Ratio 1.9 0.0 - 4.4 LAB CHEMISTRY METHOD 08/13/2024 10:24 AM [facility] Blood Venous blood specimen / Unknown Venipuncture / Unknown 08/13/2024 6:42 AM EDT 08/13/2024 8:45 AM EDT us Florian Dia MD LAB BLOOD ORDERABLES Final R esult [facility] [address] [place] [address], [place] [phone] * (ABNORMAL) Comprehensive metabolic panel (08/13/2024 6:42 AM EDT) Sodium 129(L) 133 - 145 mmol/L LAB CHEMISTRY METHOD 08/13/2024 10:25 AM [facility] Potassium 3.8 3.5 - 5.5 mmol/L LAB CHEMISTRY METHOD 08/13/2024 10:25 AM [facility] Chloride 92(L) 96 - 110 mmol/L LAB CHEMISTRY METHOD 08/13/2024 10:25 AM [facility] CO2 27 21 - 32 mmol/L LAB CHEMISTRY METHOD 08/13/2024 10:25 AM [facility] Anion Gap 10 3 - 11 LAB CHEMISTRY METHOD 08/13/2024 10:25 AM [facility] Glucose 171(H) 70 - 100 mg/dL LAB CHEMISTRY METHOD 08/13/2024 10:25 AM [facility] BUN 7 5 - 25 mg/dL LAB CHEMISTRY METHOD 08/13/2024 10:25 AM [facility] Creatinine 0.68 0.50 - 1.10 mg/dL LAB CHEMISTRY METHOD 08/13/2024 10:25 AM [facility] eGFR 95 >=60 mL/min/1. 73m2 LAB CHEMISTRY METHOD 08/13/2024 10:25 AM [facility] Comment:Calculation based on the??Chronic Kidney Disease Epidemiology Collaboration (CKD-EPI) equation refit??without adjustment for race. BUN/Creatinine Ratio 10.3 LAB CHEMISTRY METHOD 08/13/2024 10:25 AM [facility] Calcium 8.7 8.5 - 10.5 mg/dL LAB CHEMISTRY METHOD 08/13/2024 10:25 AM [facility] AST (SGOT) 25 10 - 42 unit/L LAB CHEMISTRY METHOD 08/13/2024 10:25 AM [facility] ALT (SGPT) 18 10 - 60 unit/L LAB CHEMISTRY METHOD 08/13/2024 10:25 AM [facility] Alkaline Phosphatase 104 42 - 121 unit/L LAB CHEMISTRY METHOD 08/13/2024 10:25 AM [facility] Total Protein 7.4 6.0 - 8.0 g/dL LAB CHEMISTRY METHOD 08/13/2024 10:25 AM [facility] Albumin 3.1(L) 3.2 - 5.0 g/dL LAB CHEMISTRY METHOD 08/13/2024 10:25 AM [facility] Total Bilirubin 0.4 0.0 - 1.4 mg/dL LAB CHEMISTRY METHOD 08/13/2024 10:25 AM [facility] Blood Venous blood specimen / Unknown Venipuncture / Unknown 08/13/2024 6:42 AM EDT 08/13/2024 8:45 AM EDT us Florian Dia MD LAB BLOOD ORDERABLES Final R esult [facility] [address] [place] [address], [place] [phone] documented in this encounter Visit Diagnoses Diagnosis Anemia, unspecified Type 2 diabetes mellitus without complications (CMS/HCC V24, [facility] V28) Hyperlipidemia, unspecified Hypothyroidism, unspecified documented in this encounter Care Teams Business Risk Analyst Relationship Specialty Start Date End Date Alie Barragan MD [address] [place] [address] PCP - General Internal Medicine 06/11/21 documented as of this encounter
--- OUTSIDE RECORDS SUMMARY | 2024-08-25 15:09 | XMS_ITS | Encounter Summary ---
Author Organization [employer] Address [address] [facility] [address] [place] [address] Care Team Providers Care Community Midwife Name Role Phone Unavailable Primary Care Provider Unavailabl e Encounter Details Date Type Department Care Team (Latest Contact Info) Description 05/13/2018 Abstract [facility] CONVERSIONS Dental, Provider, DDS Social History Tobacco [...]
--- OUTSIDE RECORDS SUMMARY | 2024-08-25 15:09 | XMS_ITS | Clinical Summary ---
Author Organization [employer] Address [address] [facility] [address] [place] [address] Care Team Providers Care Compensation Adjuster Name Role Phone Unavailable Primary Care Provider [...]
--- OUTSIDE RECORDS SUMMARY | 2024-08-25 15:09 | XMS_ITS | Clinical Summary ---
Author Organization [address] Address [address] [place] [phone] Phone Care Team Providers Care Marketing Operations Associate Name Role Phone Alie Barragan MD Primary Care Provider [phone] Allergies Active Allergy Reactions Criticality Noted Date [...] Date Diagnosed Date Hypertension 04/25/2024 Diabetic neuropathy (CMS/HCC V24, [facility] V28) 1 06/26/2023 Hypothyroid 04/25/2024 Bipolar 2 disorder ([facility] V24, [facility] V28) Dementia ([facility] V24, [facility] V28) 04/25/2024 Depression 04/25/2024 DM retinopathy ([facility] V24, [facility] V28) 2018 Seizure disorder ([facility] V24, [facility] V28) 08/26 High cholesterol 05/06/2017 Encounters Date Type Department Care Team Description 08/23/2024 Lab Requisition [facility] [address] [place] [phone] Florian Dia MD Type 2 diabetes mellitus with hyperglycemia ([facility] V24, [facility] V28); Unspecified dementia, unspecified severity, with other behavioral disturbance ([facility] V24, [facility] V28) 08/17/2024 Lab Requisition [facility] [address] [place] [phone] Florian Dia MD Anemia, unspecified 08/15/2024 Lab Requisition [facility] [address] [place] [phone] Florian Dia MD Hypo-osmolality and hyponatremia 08/13/2024 Lab Requisition [facility] [address] [place] [phone] Florian Dia MD Anemia, unspecified; Type 2 diabetes mellitus without complications ([facility] V24, [facility] V28); Hyperlipidemia, unspecified; Hypothyroidism, unspecified 06/26/2024 Lab Requisition [facility] [address] [place] [phone] Florian Dia MD Type 2 diabetes mellitus with hyperglycemia ([facility] V24, [facility] V28) 06/17/2024 Lab Requisition [facility] [address] [place] [phone] Florian Dia MD Acute cough 06/01/2024 Lab Requisition [facility] [address] [place] [phone] Florian Dia MD Type 2 diabetes mellitus without complications ([facility] V24, [facility] V28) from Last 3 Months Immunizations Name Administration Dates Next Due DTaP (Infanrix) 6wks to less than 7yo 06/18/2018 Influenza Quadravalent, MDCK , 0.5ml, preservative free (Flucelvax) 6mo and older 01/31/2020 Influenza Quadravalent, MDCK , 0.5ml, with preservative (Flucelvax) 6mo and older 02/03/2018 Influenza trivalent, 0.5mL (Fluad) 65yo and olde r 02/20/2022,03/28/2021 PPD Test 08/06/2017 Telisma SARS-CoV-2 COVID-19, mRNA, LNP-S, preservative free 03/15/2021,09/06/2020 Pneumococcal polysaccharide 23 valent (Pneumovax 23) 2yo and older 06/07/2020,09/16/2018 Tdap Tetanus diptheria acell ular pertussis (Boostrix; Adacel) 7yo and older 09/16/2018 Surgical History Surgery Date Site/Laterality Comments CHOLECYSTECTOMY 2008 PROCEDURE: HISTORICAL CHOLECYSTECTOMY CATARACT EXTRACTION PROCEDURE: HISTORICAL CATARACT REMOVAL Medical History Medical History Date Comments Dementia ([facility] V24, [facility] V28) DX:Dementia (HCC) Diabetic neuropathy ([facility] V24, [facility] V28) DX:Diabetic neuropathy (HCC) Type 2 diabetes, controlled, with neuropathy ([facility] V24, [facility] V28) DX:Type 2 diabet es, controlled, with neuropathy ([facility]) Bipolar 2 disorder ([facility] V24, [facility] V28) DX:Bipolar 2 disorder (HCC) Hypertension DX:Hypertension Hypertension DX:Hypertension Depression DX:Depression Hypothyroid DX:Hypothyroid High cholesterol DX:High cholest theresa DM retinopathy ([facility] V24, [facility] V28) 07/08/2018 DX:DM retinopathy (HCC) Moderate stage glaucoma 06/07/2019 DX:Moder ate stage [...] 60.4 kg (133 lb 3.2 oz) 11/20/19 10:06 AM EDT Height 157.5 cm (5' 2 ) 11/19/2022 10:0 6 AM EDT Body Mass Index 24.36 11/19/2022 10:06 AM EDT Plan of Treatment Health Maintenance Due Date Last Done Comments Diabetes: Annual Foot Exam 11/14/1965 Diabetes: Annual Retina Eye Exam 11/14/1965 Zoster Vaccines (1 of 2) 11/14/2005 RSV Immunization Adult Patients (1 - Risk 60-74 years 1-dose series) 2015 Pneumococcal Vaccine: 50+ Years (2 of 2 - PCV) 06/07/2021 06/07/2020, 09/16/2018 Colorectal Cancer Screening: Colonoscopy 04/06/2022 Depression Screening 04/06/2022 Falls Risk Assessment 04/06/2022 Social Influencers of Health Screening 04/06/2022 Diabetes: Annual Urine Albumin-Creatinine Ratio (uACR) 10/02/2022 10/02/2021 COVID-19 Vaccine ( season) 2023 03/15/2021, 09/06/2020, 08/16/2020 Breast Cancer Screening 04/09/2024 04/09/20, 01/15/2021, 12/21/2019, Additional history exists Influenza Vaccine (Season Ended) 2024 02/20/2022, 03/28/2021, 01/31/2020, Additional history exists Diabetes: Blood Sugar Control Test (HGBA1C) 12/29/2024 06/28/2024, 04/01/2024 Diabetes: Annual GFR (Glomerular Filtration Rate) 08/23/2025 08/23/2024, 08/17/2024, 08/13/2024, Additional history exists Hypertension/CHF/CAD Annual BMP Blood Test 08/23/2025 08/23/2024, 08/17/2024, 08/13/2024, Additional history exists DTaP,Tdap,and Td Vaccines (3 - Td or Tdap) 09/16/2028 09/16/2018, 06/18/2018 Cholesterol Screening (Lipid Panel) 08/13/2029 08/13/2024, 02/21/2022 Osteoporosis Screening (Bone Density Screening) 01/11/2032 01/10/2022 [...] age to complete this topic Meningococcal B Vaccine Aged Out No l onger eligible based on patient's age to complete this topic RSV Immunization Patients Under 20 months Aged Out No longer eligible based on patient's age to complete this topic Varicella Vaccines Aged Out No longer eligible based on patient's age to complete this topic Procedures Procedure Name Priority Date/Time Associated Diagnosis Comments BASIC METABOLIC PANEL Routine 08/23/2024 5:42 AM EDT Type 2 diabetes mellitus with hyperglycemia ([facility] V24, [facility] V28) Unspecified dementia, unspecified severity, with other behavioral disturbance ([facility] V24, [facility] V28) COMPLETE BLOOD COUNT Routine 08/23/2024 5:42 AM EDT Type 2 diabetes mellitus with hyperglycemia (CMS/HCC V24, CMS/HCC V28) Unspecified dementia, unspecified severity, with other behavioral disturbance (CMS/HCC V24, CMS/HCC V28) BASIC METABOLIC PANEL Routine 08/17/2024 6:24 AM EDT Anemia, unspecified OSMOLALITY, URINE Routine 08/14/2024 6:0 0 PM EDT Hypo-osmolality and hyponatremia CBC WITH AUTO DIFFERENTIAL Routine 08/13/2024 6:42 AM EDT Anemia, unspecified Type 2 diabetes mellitus without complications (CMS/HCC V24, CMS/HCC V28) Hyperlipidemia, unspecified Hypothyroidism, unspecified VITAMIN D 25 HYDROXY Routine 08/13/2024 6:42 AM EDT Anemia, unspecified Type 2 diabetes mellitus without complications ([facility]/HCC V24, CMS/[facility] V28) Hyperlipidemia, unspecified Hypothyroidism, unspecified THYROID STIMULATING HORMONE WITH REFLEX TO FREE T4 AND FREE T3 Routine 08/13/2024 6:42 AM EDT Anemia, unspecified Type 2 diabetes mellitus without complications (CMS/HCC V24, CMS/HCC V28) Hyperlipidemia, unspecified Hypothyroidism, unspecified LIPID PANEL WITH REFLEX TO DIRECT LDL Routine 08/13/2024 6:42 AM EDT Anemia, unspecified Type 2 diabetes mellitus without complications (CMS/HCC V24, CMS/[facility] V28) Hyperlipidemia, unspecified Hypothyroidism, unspecified COMPREHENSIVE METABOLIC PANEL Routine 08/13/2024 6:42 AM EDT Anemia, unspecified Type 2 diabetes mellitus without complications (CMS/HCC V24, CMS/HCC V28) Hyperlipidemia, unspecified Hypothyroidism, unspecified CBC AND DIFFERENTIAL Routine 08/13/2024 6:42 AM EDT Anemia, unspecified Type 2 diabetes mellitus without complications (CMS/HCC V24, CMS/HCC V28) Hyperlipidemia, unspecified Hypothyroidism, unspecified HEMOGLOBIN A1C Routine 06/28/2024 5:33 AM EST Type 2 diabetes mellitus with hyperglycemia (CMS/HCC) [id number], RSV, FLU A AND B QUALITATIVE RT-PCR, LOCAL REFERENCE LAB Routine 06/16/2024 5:10 PM EST Acute cough VALPROIC ACID LEVEL, TOTAL Routine 06/01/2024 5:05 AM EST Type 2 diabetes mellitus without complications (CMS/HCC) SCREENING MAMMOGRAPHY BI 2-VIEW BREAST INC CAD Routine 04/09/2022 6:05 PM EST Encounter for screening mammogram for malignant neoplasm of breast DXA BONE DENSITY STUDY 1+ SITS AXIAL SKEL Routine 01/10/2022 9:48 AM EDT Type 2 diabetes mellitus with diabetic neuropathy, unspecified (CMS/HCC V24, CMS/HCC V28) URINE ALBUMIN CREATININE RATIO Routine 10/02/2021 HEPATITIS C SCREENING Routine 11/23/2018 from Last 3 Months or Most Recently Relevant to Health Maintenance Results * (ABNORMAL) Complete blood count (08/23/2024 5:42 AM EDT) WBC 6.3 4.8 - 10.8 K/mcL LAB HEMETOLOGY METHOD 08/23/2024 10:37 AM EDT [facility] RBC 3.80 3.80 - 4.80 M/mcL LAB HEMETOLOGY METHOD 08/23/2024 10:37 AM EDT [facility] Hemoglobin 12.6 11.5 - 16.0 g/dL LAB HEMETOLOGY METHOD 08/23/2024 10:37 AM T [facility] Hematocrit 37.9 35.0 - 47.0 % LAB HEMETOLOGY METHOD 08/23/2024 10:37 AM [facility] MCV 99.2(H) 79.0 - 98.0 FL LAB HEMETOLOGY METHOD 08/23/2024 10:37 AM EDT [facility] MCH 33.0(H) 27.0 - 32.0 pcg LAB HEMETOLOGY METHOD 08/23/2024 10:37 AM EDT [facility] MCHC 33.2 32.0 - 37.0 g/dL LAB HEMETOLOGY METHOD 08/23/2024 10:37 AM EDT [facility] RDW 14.2 11.0 - 15.0 % LAB HEMETOLOGY METHOD 08/23/2024 10:37 AM EDT [facility] Platelets 170 130 - 400 K/mcL LAB HEMETOLOGY METHOD 08/23/2024 10:37 AM EDT [facility] MPV 10.4 7.0 - 11.0 FL LAB HEMETOLOGY METHOD 08/23/2024 10:37 AM EDT [facility] NRBC 0.0 <1.0 % LAB HEMETOLOGY METHOD 08/23/2024 10:37 AM EDT [facility] NRBC Absolute 0.00 <0.10 K/mcL [facility] Blood Venous blood specimen / Unknown Venipuncture / Unknown 08/23/2024 5:42 AM EDT 08/23/2024 9:53 AM EDT Florian Dia MD LAB BLOOD ORDERABLES Final R esult [facility] [address] [place] [address], * (ABNORMAL) Basic metabolic panel (08/23/2024 5:42 AM EDT) Only the most recent of2 resultswithin the time period is included. Sodium 138 133 - 145 mmol/L LAB CHEMISTRY METHOD 08/23/2024 11:48 AM EDT [facility] Potassium 4.3 3.5 - 5.5 mmol/L LAB CHEMISTRY METHOD 08/23/2024 11:48 AM [facility] Chloride 102 96 - 110 mmol/L LAB CHEMISTRY METHOD 08/23/2024 11:48 AM [facility] CO2 26 21 - 32 mmol/L LAB CHEMISTRY METHOD 08/23/2024 11:48 AM [facility] Anion Gap 10 3 - 11 LAB CHEMISTRY METHOD 08/23/2024 11:48 AM [facility] Glucose 110(H) 70 - 100 mg/dL LAB CHEMISTRY METHOD 08/23/2024 11:48 AM [facility] BUN 12 5 - 25 mg/dL LAB CHEMISTRY METHOD 08/23/2024 11:48 AM [facility] Creatinine 0.74 0.50 - 1.10 mg/dL LAB CHEMISTRY METHOD 08/23/2024 11:48 AM [facility] eGFR 88 >=60 mL/min/1. 73m2 LAB CHEMISTRY METHOD 08/23/2024 11:48 AM [facility] Comment:Calculation based on the??Chronic Kidney Disease Epidemiology Collaboration (CKD-EPI) equation refit??without adjustment for race. BUN/Creatinine Ratio 16.2 LAB CHEMISTRY METHOD 08/23/2024 11:48 AM [facility] Calcium 9.6 8.5 - 10.5 mg/dL LAB CHEMISTRY METHOD 08/23/2024 11:48 AM [facility] Blood Venous blood specimen / Unknown Venipuncture / Unknown 08/23/2024 5:42 AM EDT 08/23/2024 9:53 AM EDT us Florian Dia MD LAB BLOOD ORDERABLES Final R esult [facility] [address] [place] [address], [place] [phone] * (ABNORMAL) Osmolality, urine (08/14/2024 6:00 PM EDT) [facility] Osmolality, Urine 210(L) 300 - 1,300 mOsm/kg LAB CHEMISTRY METHOD 08/15/2024 11:49 AM EDT [facility] Urine Urine specimen obtained by clean catch procedure / Unknown Non-blood Collection / Unknown 08/14/2024 6:00 PM EDT 08/15/2024 10:14 AM EDT us Florian Dia MD LAB URINE ORDERABLES Final R esult Performing Organization Address City/[facility]/ZIP Co de Phone Number [facility] [address] [place] [address], [place] [phone] * Thyroid stimulating hormone with reflex to free t4 and free t3 (08/13/2024 6:42 AM EDT) [facility] TSH 2.74 0.40 - 4.00 mcIU/mL LAB CHEMISTRY METHOD 08/13/2024 11:15 AM EDT [facility] Blood Venous blood specimen / Unknown Venipuncture / Unknown 08/13/2024 6:42 AM EDT 08/13/2024 8:45 AM EDT us Florian Dia MD LAB BLOOD ORDERABLES Final R esult Performing Organization Address City/[facility]/ZIP Co de Phone Number [facility] [address] [place] [address], [place] [phone] * Lipid panel with reflex to direct LDL (08/13/2024 6:42 AM EDT) [facility] Cholesterol 102 0 - 200 mg/dL LAB CHEMISTRY METHOD 08/13/2024 10:24 AM EDT [facility] Triglycerides 84 0 - 150 mg/dL LAB CHEMISTRY METHOD 08/13/2024 10:24 AM EDT [facility] HDL 53 >=40 mg/dL LAB CHEMISTRY METHOD 08/13/2024 10:24 AM EDT [facility] LDL Calculated 32 0 - 100 mg/dL LAB CHEMISTRY METHOD 08/13/2024 10:24 AM EDT [facility] VLDL Cholesterol Tim 16.8 mg/dL LAB CHEMISTRY METHOD 08/13/2024 10:24 AM EDT [facility] Non HDL Chol. (LDL+VLDL) 49 <145 mg/dL LAB CHEMISTRY METHOD 08/13/2024 10:24 AM EDT [facility] Chol/HDL Ratio 1.9 0.0 - 4.4 LAB CHEMISTRY METHOD 08/13/2024 10:24 AM [facility] Blood Venous blood specimen / Unknown Venipuncture / Unknown 08/13/2024 6:42 AM EDT 08/13/2024 8:45 AM EDT us Florian Dia MD LAB BLOOD ORDERABLES Final R esult [facility] [address] [place] [address], * (ABNORMAL) CBC auto differential (08/13/2024 6:42 AM EDT) WBC 5.3 4.8 - 10.8 K/mcL LAB HEMETOLOGY METHOD 08/13/2024 10:03 AM [facility] RBC 3.50(L) 3.80 - 4.80 M/mcL LAB HEMETOLOGY METHOD 08/13/2024 10:03 AM T [facility] Hemoglobin 11.3(L) 11.5 - 16.0 g/dL LAB HEMETOLOGY METHOD 08/13/2024 10:03 AM [facility] Hematocrit 33.9(L) 35.0 - 47.0 % LAB HEMETOLOGY METHOD 08/13/2024 10:03 AM [facility] MCV 96.6 79.0 - 98.0 FL LAB HEMETOLOGY METHOD 08/13/2024 10:03 AM [facility] MCH 32.2(H) 27.0 - 32.0 pcg LAB HEMETOLOGY METHOD 08/13/2024 10:03 AM [facility] MCHC 33.3 32.0 - 37.0 g/dL LAB HEMETOLOGY METHOD 08/13/2024 10:03 AM [facility] RDW 13.3 11.0 - 15.0 % LAB HEMETOLOGY METHOD 08/13/2024 10:03 AM [facility] Platelets 143 130 - 400 K/mcL LAB HEMETOLOGY METHOD 08/13/2024 10:03 AM [facility] MPV 10.2 7.0 - 11.0 FL LAB HEMETOLOGY METHOD 08/13/2024 10:03 AM [facility] NRBC 0.0 <1.0 % LAB HEMETOLOGY METHOD 08/13/2024 10:03 AM [facility] NRBC Absolute 0.00 <0.10 K/mcL LAB HEMETOLOGY METHOD 08/13/2024 10:03 AM [facility] Neutrophils Relative 41.1 % LAB HEMETOLOGY METHOD 08/13/2024 10:03 AM [facility] Lymphocytes Relative 40.8 % LAB HEMETOLOGY METHOD 08/13/2024 10:03 AM [facility] Monocytes Relative 11.0 % LAB HEMETOLOGY METHOD 08/13/2024 10:03 AM [facility] Eosinophils Relative 5.9 % LAB HEMETOLOGY METHOD 08/13/2024 10:03 AM [facility] Basophils Relative 0.6 % LAB HEMETOLOGY METHOD 08/13/2024 10:03 AM EDT [facility] Immature Granulocytes Relative 0.6 % LAB HEMETOLOGY METHOD 08/13/2024 10:03 AM EDT [facility] Neutrophils Absolute 2.16 1.50 - 7.00 K/mcL LAB HEMETOLOGY METHOD 08/13/2024 10:03 AM EDT [facility] Lymphocytes Absolute 2.14 1.00 - 5.00 K/mcL LAB HEMETOLOGY METHOD 08/13/2024 10:03 AM EDT [facility] Monocytes Absolute 0.58 0.20 - 1.00 K/mcL LAB [facility]Y [facility] Eosinophils Absolute 0.31 0.00 - 0.50 K/mcL LAB HEMETOLOGY METHOD [facility] Basophils Absolute 0.03 0.00 - 0.20 K/mcL LAB HEMETOLOGY METHOD 08/13/2024 10:03 AM [facility] Immature Granulocytes Absolute 0.03 0.00 - 0.03 K/mcL LAB HEMETOLOGY METHOD 08/13/2024 10:03 AM [facility] Blood Venous blood specimen / Unknown Venipuncture / Unknown 08/13/2024 6:42 AM EDT 08/13/2024 8:45 AM EDT us Florian Dia MD LAB BLOOD ORDERABLES Final R esult [facility] [address] [place] [address], * (ABNORMAL) Vitamin D 25 hydroxy (08/13/2024 6:42 AM EDT) Vit D, 25-Hydroxy 19.3(L) 30.0 - 80.0 ng/mL LAB CHEMISTRY METHOD 08/13/2024 11:15 AM [facility] Blood Venous blood specimen / Unknown Venipuncture / Unknown 08/13/2024 6:42 AM EDT 08/13/2024 8:45 AM EDT us Florian Dia MD LAB BLOOD ORDERABLES Final R esult [facility] [address] [place] [address], * (ABNORMAL) Comprehensive metabolic panel (08/13/2024 6:42 AM EDT) Sodium 129(L) 133 - 145 mmol/L LAB CHEMISTRY METHOD 08/13/2024 10:25 AM [facility] Potassium 3.8 3.5 - 5.5 mmol/L LAB CHEMISTRY METHOD 08/13/2024 10:25 AM [facility] Chloride 92(L) 96 - 110 mmol/L LAB CHEMISTRY METHOD 08/13/2024 10:25 AM [facility] CO2 27 21 - 32 mmol/L LAB CHEMISTRY METHOD 08/13/2024 10:25 AM [facility] Anion Gap 10 3 - 11 LAB CHEMISTRY METHOD 08/13/2024 10:25 AM [facility] Glucose 171(H) 70 - 100 mg/dL LAB CHEMISTRY METHOD 08/13/2024 10:25 AM [facility] BUN 7 5 - 25 mg/dL LAB CHEMISTRY METHOD 08/13/2024 10:25 AM [facility] Creatinine 0.68 0.50 - 1.10 mg/dL LAB CHEMISTRY METHOD 08/13/2024 10:25 AM [facility] eGFR 95 >=60 mL/min/1. 73m2 LAB CHEMISTRY METHOD 08/13/2024 10:25 AM [facility] Comment:Calculation based on the??Chronic Kidney Disease Epidemiology Collaboration (CKD-EPI) equation refit??without adjustment for race. BUN/Creatinine Ratio 10.3 LAB CHEMISTRY METHOD 08/13/2024 10:25 AM [facility] Calcium 8.7 8.5 - 10.5 mg/dL LAB CHEMISTRY METHOD 08/13/2024 10:25 AM [facility] AST (SGOT) 25 10 - 42 unit/L LAB CHEMISTRY METHOD 08/13/2024 10:25 AM [facility] ALT (SGPT) 18 10 - 60 unit/L LAB CHEMISTRY METHOD 08/13/2024 10:25 AM [facility] Alkaline Phosphatase 104 42 - 121 unit/L LAB CHEMISTRY METHOD 08/13/2024 10:25 AM [facility] Total Protein 7.4 6.0 - 8.0 g/dL LAB CHEMISTRY METHOD 08/13/2024 10:25 AM [facility] Albumin 3.1(L) 3.2 - 5.0 g/dL LAB CHEMISTRY METHOD 08/13/2024 10:25 AM [facility] Total Bilirubin 0.4 0.0 - 1.4 mg/dL LAB CHEMISTRY METHOD 08/13/2024 10:25 AM [facility] Blood Venous blood specimen / Unknown Venipuncture / Unknown 08/13/2024 6:42 AM EDT 08/13/2024 8:45 AM EDT us Florian Dia MD LAB BLOOD ORDERABLES Final R esult [facility] [address] [place] [address], * (ABNORMAL) Hemoglobin A1c (06/28/2024 5:33 AM EST) Hemoglobin A1C 9.2(H) <6.5 % LAB CHEMISTRY METHOD 06/29/2024 2:18 PM EST [facility] Mean Bld Glu Estim. 217 mg/dL LAB CHEMISTRY METHOD 06/29/2024 2:18 PM [facility] Blood Venous blood specimen / Unknown Venipuncture / Unknown 06/28/2024 5:33 AM EST 06/28/2024 11:30 AM EST Florian Dia MD LAB BLOOD ORDERABLES Final R esult [facility] [address] [place] [address], * [id number], RSV, Influenza A and B qualitative RT-PCR (06/16/2024 5:10 PM EST) SARS COV-2 Not Detected Not Detected LAB MOLECULAR DIAGNOSTICS METHOD 06/17/2024 1:27 PM [facility] Comment: Disclaimer: The manner in which this information is used to guide patient care is the responsibility of the healthcare provider. Testing was performed using the [employer] m SARS-CoV-2 test. This test has [...] for Healthcare Providers can be found at: https://www.fda.gov/media/227237/download Fact sheet for Patients can be found at: https://www.fda.gov/media/042077/download Influenza A PCR Not Detected Not Detected LAB MOLECULAR DIAGNOSTICS METHOD 06/17/2024 1:27 PM EST [facility] Influenza B PCR Not Detected Not Detected LAB MOLECULAR DIAGNOSTICS METHOD 06/17/2024 1:27 PM EST [facility] RSV PCR Not Detected Not Detected LAB MOLECULAR DIAGNOSTICS METHOD 06/17/2024 1:27 PM EST [facility] Swab Nasopharyngeal structure / Unknown Non-blood Collection / Unknown 06/16/2024 5:10 PM EST 06/17/2024 10:32 AM EST Florian Dia MD LAB MICROBIOLOGY - GENERAL O RDERABLES Final Result Performing Organization Address [facility]/ZIP Co de Phone Number [facility] [address] [place] [address], [place] [phone] * Valproic acid level, total (06/01/2024 5:05 AM EST) Valproic Acid, Total 51 50 - 100 mcg/mL LAB CHEMISTRY METHOD 06/01/2024 10:38 AM EST [facility] Blood Venous blood specimen / Unknown Venipuncture / Unknown 06/01/2024 5:05 AM EST 06/01/2024 9:37 AM EST Florian Dia MD LAB BLOOD ORDERABLES Final R esult Performing Organization Address [facility]/ZIP Co de Phone Number [facility] [address] [place] [address], [place] [phone] * SCREENING MAMMOGRAPHY BI 2-VIEW BREAST INC [...] MD IMG XR PROCEDURES Final Result * DXA BONE DENSITY STUDY 1+ [...] (World Health Organization Fracture Risk Assessment) [facility] Department of Internal Medicine recommends using National [...] (World Health Organization Fracture Risk Assessment) [facility] Department of Internal Medicine recommendsusing National Osteoporosis [...] of fracture risk by FRAX. Aida ALAS IMG DXA PROCEDURES Final Re sult * Urine Albumin Creatinine Ratio (10/02/2021) Pathologist [facility] Urine Albumin Creatinine Ratio abstracted Historical Provider HEALTH MAINTENANCE Final Result * Hepatitis C Screening (11/23/2018) [facility] Hepatitis C Screening abstracted [facility] Provider HEALTH MAINTENANCE Final Result from Last 3 Months or Most Recently Relevant to Health Maintenance Insurance MEDICA[place] - [place] Care Teams Marketing Operations Associate Relationship Specialty Start Date End Date Alie Barragan MD [address] [place] [address] PCP - General Internal Medicine 06/11/21
--- OUTSIDE RECORDS SUMMARY | 2024-08-25 15:09 | XMS_ITS | Encounter Summary ---
Author Organization [facility] Address [address] [place] [address] Care Team Providers Care Physiotherapy Aide Name Role Phone Alie Barragan MD Primary Care Provider [phone] Encounter Details Date Type Department Care Team (Latest Contact Info) Description 04/01/2024 Lab Requisition [facility] - Main Lab [address] [facility] [place] [address] Florian Dia MD [address] [place] [address] Type 2 diabetes mellitus with hyperglycemia (CMS/HCC V24, CMS/HCC V28) Social History Tobacco [...] (ABNORMAL) Hemoglobin A1c (04/01/2024 6:05 AM EST) Pathologist [facility] Hemoglobin A1C 9.8(H) <6.5 % LAB CHEMISTRY METHOD 04/01/2024 11:41 AM EST [facility] Mean Bld Glu Estim. 235 mg/dL LAB CHEMISTRY METHOD 04/01/2024 11:41 AM EST [facility] Blood Venous blood specimen / Unknown Venipuncture / Unknown 04/01/2024 6:05 AM EST 04/01/2024 9:03 AM EST Florian Dia MD LAB BLOOD ORDERABLES Final R esult Performing Organization Address City/[facility]/ZIP Co de Phone Number [facility] [address] [place] [address], * Thyroid stimulating hormone (04/01/2024 6:05 AM EST) [facility] TSH 2.63 0.40 - 4.00 mcIU/mL LAB CHEMISTRY METHOD 04/01/2024 10:41 AM EST [facility] Blood Venous blood specimen / Unknown Venipuncture / Unknown 04/01/2024 6:05 AM EST 04/01/2024 9:03 AM EST Florian Dia MD LAB BLOOD ORDERABLES Final R esult Performing Organization Address City/[facility]/ZIP Co de Phone Number [facility] [address] [place] [address], * (ABNORMAL) Basic metabolic panel (04/01/2024 6:05 AM EST) [facility] [address] Sodium 130(L) 133 - 145 mmol/L LAB CHEMISTRY METHOD 04/01/2024 10:30 AM EST [facility] Potassium 4.1 3.5 - 5.5 mmol/L LAB CHEMISTRY METHOD 04/01/2024 10:30 AM [facility] Chloride 94(L) 96 - 110 mmol/L LAB CHEMISTRY METHOD 04/01/2024 10:30 AM [facility] CO2 28 21 - 32 mmol/L LAB CHEMISTRY METHOD 04/01/2024 10:30 AM [facility] Anion Gap 8 3 - 11 LAB CHEMISTRY METHOD 04/01/2024 10:30 AM [facility] Glucose 143(H) 70 - 100 mg/dL LAB CHEMISTRY METHOD 04/01/2024 10:30 AM [facility] BUN 11 5 - 25 mg/dL LAB CHEMISTRY METHOD 04/01/2024 10:30 AM [facility] Creatinine 0.69 0.50 - 1.10 mg/dL LAB CHEMISTRY METHOD 04/01/2024 10:30 AM [facility] eGFR 95 >=60 mL/min/1. 73m2 LAB CHEMISTRY METHOD 04/01/2024 10:30 AM [facility] Comment:Calculation based on the??Chronic Kidney Disease Epidemiology Collaboration (CKD-EPI) equation refit??without adjustment for race. BUN/Creatinine Ratio 15.9 LAB CHEMISTRY METHOD 04/01/2024 10:30 AM [facility] Calcium 8.6 8.5 - 10.5 mg/dL LAB CHEMISTRY METHOD 04/01/2024 10:30 AM [facility] Blood Venous blood specimen / Unknown Venipuncture / Unknown 04/01/2024 6:05 AM EST 04/01/2024 9:03 AM EST us Florian Dia MD LAB BLOOD ORDERABLES Final R esult [facility] [address] [place] [address], * (ABNORMAL) Complete blood count (04/01/2024 6:05 AM EST) [facility] [address] [facility] WBC 7.4 4.8 - 10.8 K/mcL LAB HEMETOLOGY METHOD 04/01/2024 10:15 AM [facility] RBC 3.40(L) 3.80 - 4.80 M/mcL LAB HEMETOLOGY METHOD 04/01/2024 10:15 AM [facility] Hemoglobin 11.3(L) 11.5 - 16.0 g/dL LAB HEMETOLOGY METHOD 04/01/2024 10:15 AM [facility] Hematocrit 33.2(L) 35.0 - 47.0 % LAB HEMETOLOGY METHOD 04/01/2024 10:15 AM [facility] MCV 97.6 79.0 - 98.0 FL LAB HEMETOLOGY METHOD 04/01/2024 10:15 AM [facility] MCH 33.2(H) 27.0 - 32.0 pcg LAB HEMETOLOGY METHOD 04/01/2024 10:15 AM [facility] MCHC 34.0 32.0 - 37.0 g/dL LAB HEMETOLOGY METHOD 04/01/2024 10:15 AM [facility] RDW 13.2 11.0 - 15.0 % LAB HEMETOLOGY METHOD 04/01/2024 10:15 AM [facility] Platelets 198 130 - 400 K/mcL LAB HEMETOLOGY METHOD 04/01/2024 10:15 AM [facility] MPV 10.0 7.0 - 11.0 FL LAB HEMETOLOGY METHOD 04/01/2024 10:15 AM [facility] NRBC 0.0 <1.0 % LAB HEMETOLOGY METHOD 04/01/2024 10:15 AM [facility] NRBC Absolute 0.00 <0.10 K/mcL LAB HEMETOLOGY METHOD 04/01/2024 10:15 AM EST [facility] Blood Venous blood specimen / Unknown Venipuncture / Unknown 04/01/2024 6:05 AM EST 04/01/2024 9:03 AM EST us Florian Dia MD LAB BLOOD ORDERABLES Final R esult [facility] [address] [place] [address], documented in this encounter Visit Diagnoses Diagnosis Type 2 diabetes mellitus with hyperglycemia (CMS/HCC V24, CMS/HCC V28) documented in this encounter Additional Health Concerns Infection Onset Date Last Indicated Resolved Time Respiratory Rule-Out 06/17/2024 06/16/2024 025 1:27 PM EST documented as of this encounter Care Teams Physiotherapy Aide Relationship Specialty Start Date End Date Alie Barragan MD [address] [place] [address] PCP - General Internal Medicine 06/11/21 documented as of this encounter
--- OUTSIDE RECORDS SUMMARY | 2024-08-25 15:09 | XMS_ITS | Encounter Summary ---
Author Organization [facility] Address [address] [place] [address] Care Team Providers Care Clear Coat Sprayer Name Role Phone Alie Barragan MD Primary Care Provider [phone] Encounter Details Date Type Department Care Team (Late st Contact Info) Description 08/15/2024 Lab Requisition [facility] - Main Lab [address] [facility] [address] Florian Dia MD [address] [place] [address] Hypo-osmolality and hyponatremia Social History Tobacco Use Types Packs/Day Years [...] Procedure Name Priority Date/Time Associated Diagnosis Comments OSMOLALITY, URINE Routine 08/14/2024 6:0 0 PM EDT Hypo-osmolality and hyponatremia documented in this encounter Results * (ABNORMAL) Osmolality, urine (08/14/2024 6:00 PM EDT) Osmolality, Urine 210(L) 300 - 1,300 mOsm/kg LAB CHEMISTRY METHOD 08/15/2024 11:49 AM EDT [facility] Urine Urine specimen obtained by clean catch procedure / Unknown Non-blood Collection / Unknown 08/14/2024 6:00 PM EDT 08/15/2024 10:14 AM EDT us Florian Dia MD LAB URINE ORDERABLES Final R esult [facility] [address] [place] [address], documented in this encounter Visit Diagnoses Diagnosis Hypo-osmolality and hyponatremia documented in this encounter Care Teams Clear Coat Sprayer Relationship Specialty Start Date End Date Alie Barragan MD [address] [place] [address] PCP - General Internal Medicine 06/11/21 documented as of this encounter
--- OUTSIDE RECORDS SUMMARY | 2024-08-25 15:09 | XMS_ITS | Encounter Summary ---
Author Organization [facility] Address [address] [place] [address] Care Team Providers Care Interface Engineer Name Role Phone Alie Barragan MD Primary Care Provider Encounter Details Date Type Department Care Team (Latest Contact Info) Description 06/01/2024 Lab Requisition [facility] - Main Lab [address] [facility] [place] [address] Florian Dia MD [address] [place] [address] Type 2 diabetes mellitus without complications (CMS/HCC V24, CMS/HCC V28) Social History Tobacco [...] LAB CHEMISTRY METHOD 06/01/2024 10:38 AM EST [facility] Blood Venous blood specimen / Unknown Venipuncture / Unknown 06/01/2024 5:05 AM EST 06/01/2024 9:37 AM EST us Florian Dia MD LAB BLOOD ORDERABLES Final R esult [facility] [address] [place] [address], documented in this encounter Visit Diagnoses Diagnosis Type 2 diabetes mellitus without complications (CMS/HCC V24, CMS/HCC V28) documented in this encounter Additional Health Concerns Infection Onset Date Last Indicated Resolved Time Respiratory Rule-Out 06/17/2024 06/16/2024 025 1:27 PM EST documented as of this encounter Care Teams Interface Engineer Relationship Specialty Start Date End Date Alie Barragan MD [address] [place] [address] PCP - General Internal Medicine 06/11/21 documented as of this encounter
--- OUTSIDE RECORDS SUMMARY | 2024-08-25 15:09 | XMS_ITS | Encounter Summary ---
Author Organization [facility] Address [address] [place] [address] Care Team Providers Care Latex Spooler Name Role Phone Alie Barragan MD Primary Care Provider [phone] Encounter Details Date Type Department Care Team (Latest Contact Info) Description 06/26/[address] [facility] - Main Lab [address] [facility] [place] [address] Florian Dia MD [address] [place] [address] Type 2 diabetes mellitus with hyperglycemia (CMS/HCC [...] EST Type 2 diabetes mellitus with hyperglycemia (CMS/[facility]) documented in this encounter Results * (ABNORMAL) Hemoglobin A1c (06/28/2024 5:33 AM EST) Hemoglobin A1C 9.2(H) <6.5 % LAB CHEMISTRY METHOD 06/29/2024 2:18 PM EST [facility] Mean Bld Glu Estim. 217 mg/dL LAB CHEMISTRY METHOD 06/29/2024 2:18 PM EST [facility] Blood Venous blood specimen / Unknown Venipuncture / Unknown 06/28/2024 5:33 AM EST 06/28/2024 11:30 AM EST us Florian Dia MD LAB BLOOD ORDERABLES Final R esult [facility] [address] [place] [address], documented in this encounter Visit Diagnoses Diagnosis Type 2 diabetes mellitus with hyperglycemia (CMS/HCC V24, CMS/HCC V28) documented in this encounter Care Teams Latex Spooler Relationship Specialty Start Date End Date Alie Barragan MD [address] [place] [address] PCP - General Internal Medicine 06/11/21 documented as of this encounter
--- OUTSIDE RECORDS SUMMARY | 2024-08-25 15:09 | XMS_ITS | Encounter Summary ---
Author Organization [facility] [place] [address] Care Team Providers Care Tractor Technician Name Role Phone Alie Barragan MD Primary Care Provider [phone] Encounter Details Date Type Department Care Team (Late st Contact Info) Description 05/07/2024 Lab Requisition [facility] - Main Lab [address] [facility] [place] [address] Florian Dia MD [address] [place] [address] Urinary tract infection, site not specified; Dysuria [...] reflex microscopic (05/07/2024 12:00 AM EST) Specific [place] Urine 1.026 1.003 - 1.030 LAB URINALYSIS - AUTOMATED METHOD 05/07/2024 10:[address] [facility] pH, Urine 6.5 5.0 - 8.0 pH LAB URINALYSIS - AUTOMATED METHOD 05/07/2024 10:[address] [facility] Leukocytes, Urine Moderate(A) Negative LAB URINALYSIS - AUTOMATED METHOD 05/07/2024 10:[address] [facility] Nitrite, Urine Negative Negative LAB URINALYSIS - AUTOMATED METHOD 05/07/2024 10:[address] [facility] Protein, Urine Negative <=Trace mg/dL LAB URINALYSIS - AUTOMATED METHOD 05/07/2024 10:[address] [facility] Glucose, Urine >=1000(A) Negative mg/dL LAB URINALYSIS - AUTOMATED METHOD 05/07/2024 10:[address] [facility] Ketones, Urine Negative Negative mg/dL LAB URINALYSIS - AUTOMATED METHOD 05/07/2024 10:[address] [facility] Urobilinogen , Urine 0.2 0.2 - 1.0 mg/dL LAB URINALYSIS - AUTOMATED METHOD 05/07/2024 10:[address] [facility] Bilirubin, Urine Negative Negative LAB URINALYSIS - AUTOMATED METHOD 05/07/2024 10:[address] [facility] Blood, Urine Negative Negative LAB URINALYSIS - AUTOMATED METHOD 05/07/2024 10:[address] [facility] RBC, Urine 8.5(H) 0 - 4 /HPF LAB URINALYSIS - AUTOMATED METHOD 05/07/2024 10:[address] [facility] WBC, Urine 176.0(H) 0 - 4 /HPF LAB URINALYSIS - AUTOMATED METHOD 05/07/2024 10:[address] [facility] Squamous Epithelial, Urine 44 0 - 60 /LPF LAB URINALYSIS - AUTOMATED METHOD 05/07/2024 10:[address] [facility] Bacteria, Urine Negative Negative /HPF LAB URINALYSIS - AUTOMATED METHOD 05/07/2024 10:[address] [facility] Hyaline Casts, Urine 6.3(H) 0 - 3 /LPF LAB URINALYSIS - AUTOMATED METHOD 05/07/2024 10:[address] [facility] Urine Urine specimen obtained by clean catch procedure / Unknown Non-blood Collection / Unknown 05/07/2024 05/07/2024 9:42 AM EST Florian Dia MD LAB URINE ORDERABLES Final R esult Performing Organization Address [facility]/ZIP Co de Phone Number [facility] [address] [place] [address], [place] [phone] * Culture urine (05/07/2024 12:00 AM EST) Culture, Urine 50,000-99,000 CFU/mL Mixed urogenital katerin, no uropathogens present. Suggest repeat specimen if clinically indicated. 05/08/2024 10:[address] [facility] Urine Urine specimen obtained by clean catch procedure / Unknown Non-blood Collection / Unknown 05/07/2024 05/07/2024 9:42 AM EST Florian Dia MD LAB MICROBIOLOGY - GENERAL O RDERABLES Final Result Performing Organization Address [facility]/ZIP Co de Phone Number [facility] [address] [place] [address], [place] [phone] documented in this encounter Visit Diagnoses Diagnosis Urinary tract infection, site not specified Dysuria documented in this encounter Additional Health Concerns Infection Onset Date Last Indicated Resolved Time Respiratory Rule-Out 06/17/2024 06/16/2024 025 1:27 PM EST documented as of this encounter Care Teams Tractor Technician Relationship Specialty Start Date End Date Alie Barragan MD [address] [place] [address] PCP - General Internal Medicine 06/11/21 documented as of this encounter
--- OUTSIDE RECORDS SUMMARY | 2024-08-25 15:09 | XMS_ITS | Encounter Summary ---
Author Organization [facility] Address [address] [place] [address] Care Team Providers Care Christmas Tree Contractor Name Role Phone Alie Barragan MD Primary Care Provider Encounter Details Date Type Department Care Team (Late st Contact Info) Description 06/17/2024 Lab Requisition [facility] - Main Lab 299 [facility] [address] [place] [address] Florian Dia MD [address] [place] [address] Acute cough Social History Tobacco Use Types [...] Procedure Name Priority Date/Time Associated Diagnosis Comments [id number], RSV, FLU A AND B QUALITATIVE RT-PCR, LOCAL REFERENCE LAB Routine 06/16/2024 5:10 PM EST Acute cough documented in this encounter Results * [id number], RSV, Influenza A and B qualitative RT-PCR (06/16/2024 5:10 PM EST) SARS COV-2 Not Detected Not Detected LAB MOLECULAR DIAGNOSTICS METHOD 06/17/2024 1:27 PM EST [facility] Comment: Disclaimer: The manner in which this information is used to guide patient care is the responsibility of the healthcare provider. Testing was performed using the Pigit Alinity m SARS-CoV-2 test. This test has [...] for Healthcare Providers can be found at: https://www.fda.gov/media/027638/download Fact sheet for Patients can be found at: https://www.fda.gov/media/120259/download Influenza A PCR Not Detected Not Detected LAB MOLECULAR DIAGNOSTICS METHOD 06/17/2024 1:[address] [facility] Influenza B PCR Not Detected Not Detected LAB MOLECULAR DIAGNOSTICS METHOD 06/17/2024 1:[address] [facility] RSV PCR Not Detected Not Detected LAB MOLECULAR DIAGNOSTICS METHOD 06/17/2024 1:27 PM [facility] Swab Nasopharyngeal structure / Unknown Non-blood Collection / Unknown 06/16/2024 5:10 PM EST 06/17/2024 10:32 AM EST Florian Dia MD LAB MICROBIOLOGY - GENERAL O RDERABLES Final Result [facility] [address] [place] [address], documented in this encounter Visit Diagnoses Diagnosis Acute cough documented in this encounter Additional Health Concerns Infection Onset Date Last Indicated Resolved Time Respiratory Rule-Out 06/17/2024 06/16/2024 025 1:27 PM EST documented as of this encounter Care Teams Christmas Tree Contractor Relationship Specialty Start Date End Date Alie Barragan MD [address] [place] [address] PCP - General Internal Medicine 06/11/21 documented as of this encounter
--- OUTSIDE RECORDS SUMMARY | 2024-08-25 15:09 | XMS_ITS | Encounter Summary ---
Author Organization [facility] Address [address] [place] [address] Care Team Providers Care Director Of Staff Development Name Role Phone Alie Barragan MD Primary Care Provider [phone] Encounter Details Date Type Department Care Team (Late st Contact Info) Description 08/17/2024 Lab Requisition [facility] - Main Lab 299 [facility] [place] [place] [address] Florian Dia MD [address] [place] [address] Anemia, unspecified Social History Tobacco Use Types Packs/Day [...] Associated Diagnosis Comments BASIC METABOLIC PANEL Routine 08/17/2024 6:24 AM EDT Anemia, unspecified documented in this encounter Results * (ABNORMAL) Basic metabolic panel (08/17/2024 6:24 AM EDT) Sodium 131(L) 133 - 145 mmol/L LAB CHEMISTRY METHOD 08/17/2024 11:25 AM EDT [facility] Potassium 4.2 3.5 - 5.5 mmol/L LAB CHEMISTRY METHOD 08/17/2024 11:25 AM EDT [facility] Chloride 94(L) 96 - 110 mmol/L LAB CHEMISTRY METHOD 08/17/2024 11:25 AM [facility] CO2 28 21 - 32 mmol/L LAB CHEMISTRY METHOD 08/17/2024 11:25 AM [facility] Anion Gap 9 3 - 11 LAB CHEMISTRY METHOD 08/17/2024 11:25 AM [facility] Glucose 57(L) 70 - 100 mg/dL LAB CHEMISTRY METHOD 08/17/2024 11:25 AM [facility] BUN 8 5 - 25 mg/dL LAB CHEMISTRY METHOD 08/17/2024 11:25 AM [facility] Creatinine 0.50 0.50 - 1.10 mg/dL LAB CHEMISTRY METHOD 08/17/2024 11:25 AM [facility] LAB eGFR 102 >=60 mL/min/1. 73m2 LAB CHEMISTRY METHOD 08/17/2024 11:25 AM [facility] LAB Comment:Calculation based on the??Chronic Kidney Disease Epidemiology Collaboration (CKD-EPI) equation refit??without adjustment for race. BUN/Creatinine Ratio 16.0 LAB CHEMISTRY METHOD 08/17/2024 11:25 AM [facility] Calcium 8.8 8.5 - 10.5 mg/dL LAB CHEMISTRY METHOD 08/17/2024 11:25 AM [facility] Blood Venous blood specimen / Unknown Venipuncture / Unknown 08/17/2024 6:24 AM EDT 08/17/2024 9:38 AM EDT us Florian Dia MD LAB BLOOD ORDERABLES Final R esult [facility] [address] [place] [address], documented in this encounter Visit Diagnoses Diagnosis Anemia, unspecified documented in this encounter Care Teams Director Of Staff Development Relationship Specialty Start Date End Date Alie Barragan MD [address] [place] [address] PCP - General Internal Medicine 06/11/21 documented as of this encounter
== END 2024-08-25 14:47 | disposition home or self-care (01) ==
LOC: HO.HWS 13:55
PROVIDERS: Visit Provider Obstetrics & Gynecology
DX: N81.10 Cystocele, unspecified (principal); N95.0 Postmenopausal bleeding
CPT/HCPCS: 99213

== ENCOUNTER 2024-08-25 13:55 | Outpatient (REF) | payer MEDICAID, SELFPAY ==
--- OUTSIDE RECORDS SUMMARY | 2024-08-25 16:32 | XMS_ITS | Encounter Summary ---
Author Organization [facility] Address [address] [place] [address] Care Team Providers Care Visiting Teacher Name Role Phone Alie Barragan MD Primary Care Provider [phone] Encounter Details Date Type Department Care Team (Late st Contact Info) Description 03/16/2024 Lab Requisition [facility] - Main Lab 299 [facility] [place] [address] Florian Dia MD [address] [place] [address] Major depressive disorder, single episode, mild (CMS/HCC [...] LAB CHEMISTRY METHOD 03/16/2024 10:23 AM EST [facility] Blood Venous blood specimen / Unknown Venipuncture / Unknown 03/16/2024 6:00 AM EST 03/16/2024 9:47 AM EST us Florian Dia MD LAB BLOOD ORDERABLES Final R esult [facility] [address] [place] [address], documented in this encounter Visit Diagnoses Diagnosis Major depressive disorder, single episode, mild (CMS/HCC V24) Major depressive disorder, single episode, mild documented in this encounter Additional Health Concerns Infection Onset Date Last Indicated Resolved Time Respiratory Rule-Out 06/17/2024 06/16/2024 025 1:27 PM EST documented as of this encounter Care Teams Visiting Teacher Relationship Specialty Start Date End Date Alie Barragan MD [address] [place] [address] PCP - General Internal Medicine 06/11/21 documented as of this encounter
--- OUTSIDE RECORDS SUMMARY | 2024-08-25 16:32 | XMS_ITS | Encounter Summary ---
Author Organization [facility] Address [address] [place] [address] Care Team Providers Care Network Field Engineer Name Role Phone Alie Barragan MD Primary Care Provider [phone] Encounter Details Date Type Department Care Team (Late st Contact Info) Description 05/07/2024 Lab Requisition [facility] - Main Lab 299 [facility] [place] [address] Florian Dia MD [address] [place] [address] Urinary tract infection, site not specified; Dysuria [...] reflex microscopic (05/07/2024 12:00 AM EST) Specific [place] Urine 1.026 1.003 - 1.030 LAB URINALYSIS [...] ORDERABLES Final R esult Performing Organization Address [facility]/ZIP Co de Phone Number [facility] [address] [place] [address], [place] [phone] * Culture urine (05/07/2024 12:00 AM EST) Culture, Urine 50,000-99,000 CFU/mL Mixed urogenital katerin, no uropathogens present. Suggest repeat specimen if clinically indicated. 05/08/2024 10:56 AM [facility] Urine Urine specimen obtained by clean catch procedure / Unknown Non-blood Collection / Unknown 05/07/2024 05/07/2024 9:42 AM EST Florian Dia MD LAB MICROBIOLOGY - GENERAL O RDERABLES Final Result Performing Organization Address [facility]/ZIP Co de Phone Number [facility] [address] [place] [address], [place] [phone] documented in this encounter Visit Diagnoses Diagnosis Urinary tract infection, site not specified Dysuria documented in this encounter Additional Health Concerns Infection Onset Date Last Indicated Resolved Time Respiratory Rule-Out 06/17/2024 06/16/2024 025 1:27 PM EST documented as of this encounter Care Teams Network Field Engineer Relationship Specialty Start Date End Date Alie Barragan MD [address] [place] [address] PCP - General Internal Medicine 06/11/21 documented as of this encounter
--- OUTSIDE RECORDS SUMMARY | 2024-08-25 16:32 | XMS_ITS | Encounter Summary ---
Author Organization [facility] Address [address] [place] [address] Care Team Providers Care Co Founder And Chief Strategy Officer Name Role Phone Alie Barragan MD Primary Care Provider [phone] Encounter Details Date Type Department Care Team (Latest Contact Info) Description 04/01/2024 Lab Requisition [facility] - Main Lab [address] [facility] [place] [address] Florian Dia MD [address] [place] [address] Type 2 diabetes mellitus with hyperglycemia (CMS/HCC [...] Hemoglobin A1c (04/01/2024 6:05 AM EST) Pathologist [facility] [place] Hemoglobin A1C 9.8(H) <6.5 % LAB CHEMISTRY METHOD 04/01/2024 11:41 AM EST [facility] Mean Bld Glu Estim. 235 mg/dL LAB CHEMISTRY METHOD 04/01/2024 11:41 AM EST [facility] Blood Venous blood specimen / Unknown Venipuncture / Unknown 04/01/2024 6:05 AM EST 04/01/2024 9:03 AM EST Florian Dia MD LAB BLOOD ORDERABLES Final R esult Performing Organization Address City/[facility]/ZIP Co de Phone Number [facility] [address] [place] [address], * Thyroid stimulating hormone (04/01/2024 6:05 AM EST) [facility] TSH 2.63 0.40 - 4.00 mcIU/mL LAB CHEMISTRY METHOD 04/01/2024 10:41 AM EST [facility] Blood Venous blood specimen / Unknown Venipuncture / Unknown 04/01/2024 6:05 AM EST 04/01/2024 9:03 AM EST Florian Dia MD LAB BLOOD ORDERABLES Final R esult Performing Organization Address City/[facility]/ZIP Co de Phone Number [facility] [address] [place] [address], * (ABNORMAL) Basic metabolic panel (04/01/2024 6:05 AM EST) [facility] Sodium 130(L) 133 - 145 mmol/L LAB CHEMISTRY METHOD 04/01/2024 10:30 AM EST [facility] Potassium 4.1 3.5 - 5.5 mmol/L LAB CHEMISTRY METHOD 04/01/2024 10:30 AM [facility] Chloride 94(L) 96 - 110 mmol/L LAB CHEMISTRY METHOD 04/01/2024 10:30 AM [facility] CO2 28 21 - 32 mmol/L LAB CHEMISTRY METHOD 04/01/2024 10:30 AM [facility] Anion Gap 8 3 - 11 LAB CHEMISTRY METHOD 04/01/2024 10:30 AM [facility] Glucose 143(H) 70 - 100 mg/dL LAB CHEMISTRY METHOD 04/01/2024 10:30 AM [facility] BUN 11 5 - 25 mg/dL LAB CHEMISTRY METHOD 04/01/2024 10:30 AM [facility] Creatinine 0.69 0.50 - 1.10 mg/dL LAB CHEMISTRY METHOD 04/01/2024 10:30 AM [facility] eGFR 95 >=60 mL/min/1. 73m2 LAB CHEMISTRY METHOD 04/01/2024 10:30 AM [facility] Comment:Calculation based on the??Chronic Kidney Disease Epidemiology Collaboration (CKD-EPI) equation refit??without adjustment for race. BUN/Creatinine Ratio 15.9 LAB CHEMISTRY METHOD 04/01/2024 10:30 AM [facility] Calcium 8.6 8.5 - 10.5 mg/dL LAB CHEMISTRY METHOD 04/01/2024 10:30 AM [facility] Blood Venous blood specimen / Unknown Venipuncture / Unknown 04/01/2024 6:05 AM EST 04/01/2024 9:03 AM EST us Florian Dia MD LAB BLOOD ORDERABLES Final R esult [facility] [address] [place] [address], * (ABNORMAL) Complete blood count (04/01/2024 6:05 AM EST) [facility] WBC 7.4 4.8 - 10.8 K/mcL LAB HEMETOLOGY METHOD 04/01/2024 10:15 AM [facility] RBC 3.40(L) 3.80 - 4.80 M/mcL LAB HEMETOLOGY METHOD 04/01/2024 10:15 AM [facility] Hemoglobin 11.3(L) 11.5 - 16.0 g/dL LAB HEMETOLOGY METHOD 04/01/2024 10:15 AM [facility] Hematocrit 33.2(L) 35.0 - 47.0 % LAB HEMETOLOGY METHOD 04/01/2024 10:15 AM [facility] MCV 97.6 79.0 - 98.0 FL LAB HEMETOLOGY METHOD 04/01/2024 10:15 AM [facility] MCH 33.2(H) 27.0 - 32.0 pcg LAB HEMETOLOGY METHOD 04/01/2024 10:15 AM [facility] MCHC 34.0 32.0 - 37.0 g/dL LAB HEMETOLOGY METHOD 04/01/2024 10:15 AM [facility] RDW 13.2 11.0 - 15.0 % LAB HEMETOLOGY METHOD 04/01/2024 10:15 AM [facility] Platelets 198 130 - 400 K/mcL LAB HEMETOLOGY METHOD 04/01/2024 10:15 AM [facility] MPV 10.0 7.0 - 11.0 FL LAB HEMETOLOGY METHOD 04/01/2024 10:15 AM [facility] NRBC 0.0 <1.0 % LAB HEMETOLOGY METHOD 04/01/2024 10:15 AM [facility] NRBC Absolute 0.00 <0.10 K/mcL LAB HEMETOLOGY METHOD 04/01/2024 10:15 AM EST [facility] Blood Venous blood specimen / Unknown Venipuncture / Unknown 04/01/2024 6:05 AM EST 04/01/2024 9:03 AM EST us Florian Dia MD LAB BLOOD ORDERABLES Final R esult [facility] [address] [place] [address], documented in this encounter Visit Diagnoses Diagnosis Type 2 diabetes mellitus with hyperglycemia (CMS/HCC V24, CMS/HCC V28) documented in this encounter Additional Health Concerns Infection Onset Date Last Indicated Resolved Time Respiratory Rule-Out 06/17/2024 06/16/2024 025 1:27 PM EST documented as of this encounter Care Teams Co Founder And Chief Strategy Officer Relationship Specialty Start Date End Date Alie Barragan MD [address] [place] [id number] PCP - General Internal Medicine 06/11/21 documented as of this encounter
--- OUTSIDE RECORDS SUMMARY | 2024-08-25 16:33 | XMS_ITS | Encounter Summary ---
Author Organization [facility] Address [address] [place] [address] Care Team Providers Care Mainstreaming Facilitator Name Role Phone Alie Barragan MD Primary Care Provider [phone] Encounter Details Date Type Department Care Team (Late st Contact Info) Description 08/15/2024 Lab Requisition [facility] - Main Lab [address] [facility] [place] [address] Florian Dia MD [address] [place] [address] Hypo-osmolality and hyponatremia Social History Tobacco Use [...] LAB CHEMISTRY METHOD 08/15/2024 11:49 AM EDT [facility] ([facility] Urine Urine specimen obtained by clean catch procedure / Unknown Non-blood Collection / Unknown 08/14/2024 6:00 PM EDT 08/15/2024 10:14 AM EDT us Florian Dia MD LAB URINE ORDERABLES Final R esult [facility] ([facility] [address] [place] [address], documented in this encounter Visit Diagnoses Diagnosis Hypo-osmolality and hyponatremia documented in this encounter Care Teams Mainstreaming Facilitator Relationship Specialty Start Date End Date Alie Barrgaan MD [address] [place] [address] PCP - General Internal Medicine 06/11/21 documented as of this encounter
--- OUTSIDE RECORDS SUMMARY | 2024-08-25 16:33 | XMS_ITS | Encounter Summary ---
Author Organization [facility] Address [address] [place] [address] Care Team Providers Care Radio Artist Name Role Phone Alie Barragan MD Primary Care Provider [phone] Encounter Details Date Type Department Care Team (Latest Contact Info) Description 08/13/2024 Lab Requisition [facility] - Main Lab [address] [facility] [place] [address] Florian Dia MD [address] [place] [address] Anemia, unspecified; Type 2 diabetes mellitus without [...] unspecified Type 2 diabetes mellitus without complications ([facility] V24, [facility] V28) Hyperlipidemia, unspecified Hypothyroidism, unspecified VITAMIN D 25 HYDROXY Routine 08/13/2024 6:42 AM EDT Anemia, unspecified Type 2 diabetes mellitus without complications ([facility] V24, [facility] V28) Hyperlipidemia, unspecified Hypothyroidism, unspecified CBC AND DIFFERENTIAL Routine 08/13/2024 6:42 AM EDT Anemia, unspecified Type 2 diabetes mellitus without complications ([facility] V24, [facility] V28) Hyperlipidemia, unspecified Hypothyroidism, unspecified COMPREHENSIVE METABOLIC PANEL Routine 08/13/2024 6:42 AM EDT Anemia, unspecified Type 2 diabetes mellitus without complications ([facility] V24, [facility] V28) Hyperlipidemia, unspecified Hypothyroidism, unspecified documented in this encounter Results * (ABNORMAL) CBC auto differential (08/13/2024 6:42 AM EDT) [facility] WBC 5.3 4.8 - 10.8 K/mcL LAB HEMETOLOGY METHOD 08/13/2024 10:03 AM [facility] RBC 3.50(L) 3.80 - 4.80 M/mcL LAB HEMETOLOGY METHOD 08/13/2024 10:03 AM [facility] Hemoglobin 11.3(L) 11.5 - 16.0 g/dL LAB HEMETOLOGY METHOD 08/13/2024 10:03 AM [facility] Hematocrit 33.9(L) 35.0 - 47.0 % LAB HEMETOLOGY METHOD 08/13/2024 10:03 AM [facility] MCV 96.6 79.0 - 98.0 FL LAB HEMETOLOGY METHOD 08/13/2024 10:03 AM [facility] MCH 32.2(H) 27.0 - 32.0 pcg LAB HEMETOLOGY METHOD 08/13/2024 10:03 AM [facility] MCHC 33.3 32.0 - 37.0 g/dL LAB HEMETOLOGY METHOD 08/13/2024 10:03 AM [facility] RDW 13.3 11.0 - 15.0 % LAB HEMETOLOGY METHOD 08/13/2024 10:03 AM [facility] Platelets 143 130 - 400 K/mcL LAB HEMETOLOGY METHOD 08/13/2024 10:03 AM [facility] MPV 10.2 7.0 - 11.0 FL LAB HEMETOLOGY METHOD 08/13/2024 10:03 AM [facility] NRBC 0.0 <1.0 % LAB HEMETOLOGY METHOD 08/13/2024 10:03 AM [facility] NRBC Absolute 0.00 <0.10 K/mcL LAB HEMETOLOGY METHOD 08/13/2024 10:03 AM [facility] Neutrophils Relative 41.1 % LAB HEMETOLOGY METHOD 08/13/2024 10:03 AM [facility] Lymphocytes Relative 40.8 % LAB HEMETOLOGY METHOD 08/13/2024 10:03 AM [facility] Monocytes Relative 11.0 % LAB HEMETOLOGY METHOD 08/13/2024 10:03 AM [facility] Eosinophils Relative 5.9 % LAB HEMETOLOGY METHOD 08/13/2024 10:03 AM [facility] Basophils Relative 0.6 % LAB HEMETOLOGY METHOD 08/13/2024 10:03 AM [facility] Immature Granulocytes Relative 0.6 % LAB HEMETOLOGY METHOD 08/13/2024 10:03 AM EDT [facility] Neutrophils Absolute 2.16 1.50 - 7.00 K/mcL LAB HEMETOLOGY METHOD 08/13/2024 10:03 AM EDT [facility] Lymphocytes Absolute 2.14 1.00 - 5.00 K/mcL LAB HEMETOLOGY METHOD 08/13/2024 10:03 AM EDT [facility] Monocytes Absolute 0.58 0.20 - 1.00 K/[facility] LAB HEMETOLOGY METHOD 08/13/2024 10:03 AM EDT [facility] Eosinophils Absolute 0.31 0.00 - 0.50 K/[facility] LAB HEMETOLOGY METHOD 08/13/2024 10:03 AM EDT [facility] Basophils Absolute 0.03 0.00 - 0.20 K/mcL LAB HEMETOLOGY METHOD 08/13/2024 10:03 AM EDT [facility] Immature Granulocytes Absolute 0.03 0.00 - 0.03 K/[facility] LAB HEMETOLOGY METHOD 08/13/2024 10:03 AM EDT [facility] Blood Venous blood specimen / Unknown Venipuncture / Unknown 08/13/2024 6:42 AM EDT 08/13/2024 8:45 AM EDT us Florian Dia MD LAB BLOOD ORDERABLES Final R esult [facility] [address] [place] [address], * (ABNORMAL) Vitamin D 25 hydroxy (08/13/2024 6:42 AM EDT) Vit D, 25-Hydroxy 19.3(L) 30.0 - 80.0 ng/mL LAB CHEMISTRY METHOD 08/13/2024 11:15 AM EDT [facility] Blood Venous blood specimen / Unknown Venipuncture / Unknown 08/13/2024 6:42 AM EDT 08/13/2024 8:45 AM EDT us Florian Dia MD LAB BLOOD ORDERABLES Final R esult Performing Organization Address [facility]/ZIP Co de Phone Number [facility] [address] [place] [address], [place] [phone] * Thyroid stimulating hormone with reflex to free t4 and free t3 (08/13/2024 6:42 AM EDT) [facility] TSH 2.74 0.40 - 4.00 mcIU/mL LAB CHEMISTRY METHOD 08/13/2024 11:15 AM EDT [facility] Blood Venous blood specimen / Unknown Venipuncture / Unknown 08/13/2024 6:42 AM EDT 08/13/2024 8:45 AM EDT Florian Dia MD LAB BLOOD ORDERABLES Final R esult Performing Organization Address City/[facility]/ZIP Co de Phone Number [facility] [address] [place] [address], [place] [phone] * Lipid panel with reflex to direct LDL (08/13/2024 6:42 AM EDT) [facility] Cholesterol 102 0 - 200 mg/dL LAB CHEMISTRY METHOD 08/13/2024 10:24 AM EDT [facility] Triglycerides 84 0 - 150 mg/dL LAB CHEMISTRY METHOD 08/13/2024 10:24 AM EDT [facility] HDL 53 >=40 mg/dL LAB CHEMISTRY METHOD 08/13/2024 10:24 AM EDT [facility] LDL Calculated 32 0 - 100 mg/dL LAB CHEMISTRY METHOD 08/13/2024 10:24 AM EDT [facility] VLDL Cholesterol Tim 16.8 mg/dL LAB CHEMISTRY METHOD 08/13/2024 10:24 AM EDT [facility] Non HDL Chol. (LDL+VLDL) 49 <145 mg/dL LAB CHEMISTRY METHOD 08/13/2024 10:24 AM [facility] Chol/HDL Ratio 1.9 0.0 - 4.4 LAB CHEMISTRY METHOD 08/13/2024 10:24 AM [facility] Blood Venous blood specimen / Unknown Venipuncture / Unknown 08/13/2024 6:42 AM EDT 08/13/2024 8:45 AM EDT us Florian Dia MD LAB BLOOD ORDERABLES Final R esult [facility] [address] [place] [address], [place] [phone] * (ABNORMAL) Comprehensive metabolic panel (08/13/2024 6:42 AM EDT) Sodium 129(L) 133 - 145 mmol/L LAB CHEMISTRY METHOD 08/13/2024 10:25 AM [facility] Potassium 3.8 3.5 - 5.5 mmol/L LAB CHEMISTRY METHOD 08/13/2024 10:25 AM [facility] Chloride 92(L) 96 - 110 mmol/L LAB CHEMISTRY METHOD 08/13/2024 10:25 AM [facility] CO2 27 21 - 32 mmol/L LAB CHEMISTRY METHOD 08/13/2024 10:25 AM [facility] Anion Gap 10 3 - 11 LAB CHEMISTRY METHOD 08/13/2024 10:25 AM [facility] Glucose 171(H) 70 - 100 mg/dL LAB CHEMISTRY METHOD 08/13/2024 10:25 AM [facility] BUN 7 5 - 25 mg/dL LAB CHEMISTRY METHOD 08/13/2024 10:25 AM [facility] Creatinine 0.68 0.50 - 1.10 mg/dL LAB CHEMISTRY METHOD 08/13/2024 10:25 AM [facility] eGFR 95 >=60 mL/min/1. 73m2 LAB CHEMISTRY METHOD 08/13/2024 10:25 AM [facility] Comment:Calculation based on the??Chronic Kidney Disease Epidemiology Collaboration (CKD-EPI) equation refit??without adjustment for race. BUN/Creatinine Ratio 10.3 LAB CHEMISTRY METHOD 08/13/2024 10:25 AM [facility] Calcium 8.7 8.5 - 10.5 mg/dL LAB CHEMISTRY METHOD 08/13/2024 10:25 AM [facility] AST (SGOT) 25 10 - 42 unit/L LAB CHEMISTRY METHOD 08/13/2024 10:25 AM [facility] ALT (SGPT) 18 10 - 60 unit/L LAB CHEMISTRY METHOD 08/13/2024 10:25 AM [facility] Alkaline Phosphatase 104 42 - 121 unit/L LAB CHEMISTRY METHOD 08/13/2024 10:25 AM [facility] Total Protein 7.4 6.0 - 8.0 g/dL LAB CHEMISTRY METHOD 08/13/2024 10:25 AM [facility] Albumin 3.1(L) 3.2 - 5.0 g/dL LAB CHEMISTRY METHOD 08/13/2024 10:25 AM [facility] Total Bilirubin 0.4 0.0 - 1.4 mg/dL LAB CHEMISTRY METHOD 08/13/2024 10:25 AM [facility] Blood Venous blood specimen / Unknown Venipuncture / Unknown 08/13/2024 6:42 AM EDT 08/13/2024 8:45 AM EDT us Florian Dia MD LAB BLOOD ORDERABLES Final R esult [facility] [address] [place] [address], [place] [phone] documented in this encounter Visit Diagnoses Diagnosis Anemia, unspecified Type 2 diabetes mellitus without complications (CMS/HCC V24, [facility] V28) Hyperlipidemia, unspecified Hypothyroidism, unspecified documented in this encounter Care Teams Radio Artist Relationship Specialty Start Date End Date Alie Barragan MD [address] [place] [address] PCP - General Internal Medicine 06/11/21 documented as of this encounter
--- OUTSIDE RECORDS SUMMARY | 2024-08-25 16:33 | XMS_ITS | Encounter Summary ---
Author Organization [employer] Address [address] [facility] [address] [place] [address] Care Team Providers Care Group Fitness Instructor Name Role Phone Unavailable Primary Care Provider Unavailabl e Encounter Details Date Type Department Care Team (Latest Contact Info) Description 05/13/2018 Abstract [facility] CONVERSIONS Dental, Provider, DDS Social History [...]
--- OUTSIDE RECORDS SUMMARY | 2024-08-25 16:33 | XMS_ITS | Encounter Summary ---
Author Organization [facility] Address [address] [place] [address] Care Team Providers Care Environmental Assistant Name Role Phone Alie Barragan MD Primary Care Provider [phone] Encounter Details Date Type Department Care Team (Latest Contact Info) Description 06/26/2024 Lab Requisition [facility] - Main Lab [address] [facility] [employer] [place] [address] Florian Dia MD [address] [place] [address] Type 2 diabetes mellitus with hyperglycemia (CMS/HCC [...] EST Type 2 diabetes mellitus with hyperglycemia (CMS/[facility]) documented in this encounter Results * (ABNORMAL) Hemoglobin A1c (06/28/2024 5:33 AM EST) Hemoglobin A1C 9.2(H) <6.5 % LAB CHEMISTRY METHOD 06/29/2024 2:18 PM EST [facility] Mean Bld Glu Estim. 217 mg/dL LAB CHEMISTRY METHOD 06/29/2024 2:18 PM EST [facility] Blood Venous blood specimen / Unknown Venipuncture / Unknown 06/28/2024 5:33 AM EST 06/28/2024 11:30 AM EST us Florian Dia MD LAB BLOOD ORDERABLES Final R esult [facility] [address] [place] [address], documented in this encounter Visit Diagnoses Diagnosis Type 2 diabetes mellitus with hyperglycemia (CMS/HCC V24, CMS/HCC V28) documented in this encounter Care Teams Environmental Assistant Relationship Specialty Start Date End Date Alie Barragan MD [address] [place] [address] PCP - General Internal Medicine 06/11/21 documented as of this encounter
--- OUTSIDE RECORDS SUMMARY | 2024-08-25 16:33 | XMS_ITS | Encounter Summary ---
Author Organization [facility] Address [address] [place] [address] Care Team Providers Care Forest Practices Field Coordinator Name Role Phone Alie Barragan MD Primary Care Provider [phone] Encounter Details Date Type Department Care Team (Latest Contact Info) Description 06/01/2024 Lab Requisition [facility] - Main Lab [address] [facility] [place] [address] Florian Dia MD [address] [place] [address] Type 2 diabetes mellitus without complications (CMS/HCC [...] LAB CHEMISTRY METHOD 06/01/2024 10:38 AM EST [facility] ([facility]) [facility] Blood Venous blood specimen / Unknown Venipuncture / Unknown 06/01/2024 5:05 AM EST 06/01/2024 9:37 AM EST us Florian Dia MD LAB BLOOD ORDERABLES Final R esult [facility] ([facility]) [facility] [address] [place] [address], documented in this encounter Visit Diagnoses Diagnosis Type 2 diabetes mellitus without complications (CMS/HCC V24, CMS/HCC V28) documented in this encounter Additional Health Concerns Infection Onset Date Last Indicated Resolved Time Respiratory Rule-Out 06/17/2024 06/16/2024 025 1:27 PM EST documented as of this encounter Care Teams Forest Practices Field Coordinator Relationship Specialty Start Date End Date Alie Barragan MD [address] [place] [address] PCP - General Internal Medicine 06/11/21 documented as of this encounter
--- OUTSIDE RECORDS SUMMARY | 2024-08-25 16:33 | XMS_ITS | Encounter Summary ---
Author Organization [facility] Address [address] [place] [address] Care Team Providers Care Desk Operator Name Role Phone Alie Barragan MD Primary Care Provider [phone] Encounter Details Date Type Department Care Team (Latest Contact Info) Description 08/23/2024 Lab Requisition [facility] - Main Lab [address] [facility] [place] [address] Florian Dia MD [address] [place] [address] Type 2 diabetes mellitus with hyperglycemia (CMS/HCC [...] dementia, unspecified severity, with other behavioral disturbance ([facility] V24, [facility] V28) documented in this encounter Results * (ABNORMAL) Basic metabolic panel (08/23/2024 5:42 AM EDT) Sodium 138 133 - 145 mmol/L LAB CHEMISTRY METHOD 08/23/2024 11:48 AM [facility] Potassium 4.3 3.5 - 5.5 mmol/L LAB CHEMISTRY METHOD 08/23/2024 11:48 AM [facility] Chloride 102 96 - 110 mmol/L LAB CHEMISTRY METHOD 08/23/2024 11:48 AM [facility] CO2 26 21 - 32 mmol/L LAB CHEMISTRY METHOD 08/23/2024 11:48 AM [facility] Anion Gap 10 3 - 11 LAB CHEMISTRY METHOD 08/23/2024 11:48 AM [facility] Glucose 110(H) 70 - 100 mg/dL LAB CHEMISTRY METHOD 08/23/2024 11:48 AM [facility] BUN 12 5 - 25 mg/dL LAB CHEMISTRY METHOD 08/23/2024 11:48 AM [facility] Creatinine 0.74 0.50 - 1.10 mg/dL LAB CHEMISTRY METHOD 08/23/2024 11:48 AM [facility] eGFR 88 >=60 mL/min/1. 73m2 LAB CHEMISTRY METHOD 08/23/2024 11:48 AM [facility] Comment:Calculation based on the??Chronic Kidney Disease Epidemiology Collaboration (CKD-EPI) equation refit??without adjustment for race. BUN/Creatinine Ratio 16.2 LAB CHEMISTRY METHOD 08/23/2024 11:48 AM [facility] Calcium 9.6 8.5 - 10.5 mg/dL LAB CHEMISTRY METHOD 08/23/2024 11:48 AM [facility] Blood Venous blood specimen / Unknown Venipuncture / Unknown 08/23/2024 5:42 AM EDT 08/23/2024 9:53 AM EDT Florian Dia MD LAB BLOOD ORDERABLES Final R esult [facility] [address] [place] [address], * (ABNORMAL) Complete blood count (08/23/2024 5:42 AM EDT) WBC 6.3 4.8 - 10.8 K/mcL LAB HEMETOLOGY METHOD 08/23/2024 10:37 AM EDT [facility] RBC 3.80 3.80 - 4.80 M/mcL LAB HEMETOLOGY METHOD 08/23/2024 10:37 AM EDT [facility] Hemoglobin 12.6 11.5 - 16.0 g/dL LAB HEMETOLOGY METHOD 08/23/2024 10:37 AM EDT [facility] Hematocrit 37.9 35.0 - 47.0 % LAB HEMETOLOGY METHOD 08/23/2024 10:37 AM [facility] MCV 99.2(H) 79.0 - 98.0 FL LAB HEMETOLOGY METHOD 08/23/2024 10:37 AM EDT [facility] MCH 33.0(H) 27.0 - 32.0 pcg LAB HEMETOLOGY METHOD 08/23/2024 10:37 AM T [facility] MCHC 33.2 32.0 - 37.0 g/dL LAB HEMETOLOGY METHOD 08/23/2024 10:37 AM [facility] RDW 14.2 11.0 - 15.0 % LAB HEMETOLOGY METHOD 08/23/2024 10:37 AM EDT [facility] Platelets 170 130 - 400 K/mcL LAB HEMETOLOGY METHOD 08/23/2024 10:37 AM EDT [facility] MPV 10.4 7.0 - 11.0 FL LAB HEMETOLOGY METHOD 08/23/2024 10:37 AM EDT [facility] NRBC 0.0 <1.0 % LAB HEMETOLOG METHOD 08/23/2024 10:37 AM EDT [facility] NRBC Absolute 0.00 <0.10 K/mcL LAB HEMETOLOGY METHOD 08/23/2024 10:37 AM EDT [facility] Blood Venous blood specimen / Unknown Venipuncture / Unknown 08/23/2024 5:42 AM EDT 08/23/2024 9:53 AM EDT us Florian Dia MD LAB BLOOD ORDERABLES Final R esult [facility] [address] [place] [address], documented in this encounter Visit Diagnoses Diagnosis Type 2 diabetes mellitus with hyperglycemia (CMS/HCC V24, CMS/HCC V28) Unspecified dementia, unspecified severity, with other behavioral disturbance (CMS/HCC V24, CMS/HCC V28) documented in this encounter Care Teams Desk Operator Relationship Specialty Start Date End Date Alie Barragan MD [address] [place] [address] PCP - General Internal Medicine 06/11/21 documented as of this encounter
--- OUTSIDE RECORDS SUMMARY | 2024-08-25 16:33 | XMS_ITS | Encounter Summary ---
Author Organization [facility] Address [address] [place] [address] Care Team Providers Care Shredded Filler Hopper Feeder Name Role Phone Alie Barragan MD Primary Care Provider [phone] Encounter Details Date Type Department Care Team (Late st Contact Info) Description 06/17/2024 Lab Requisition [facility] - Main Lab [address] [facility] [address] [address] Florian Dia MD [address] [place] [address] Acute cough Social History Tobacco Use Types [...] Procedure Name Priority Date/Time Associated Diagnosis Comments [id number], RSV, FLU A AND B QUALITATIVE RT-PCR, LOCAL REFERENCE LAB Routine 06/16/2024 5:10 PM EST Acute cough documented in this encounter Results * [id number], RSV, Influenza A and B qualitative RT-PCR (06/16/2024 5:10 PM EST) SARS COV-2 Not Detected Not Detected LAB MOLECULAR DIAGNOSTICS METHOD 06/17/2024 1:27 PM EST [facility] Comment: Disclaimer: The manner in which this information is used to guide patient care is the responsibility of the healthcare provider. Testing was performed using the [employer]seek Alinity m SARS-CoV-2 test. This test has [...] for Healthcare Providers can be found at: https://www.fda.gov/media/732929/download Fact sheet for Patients can be found at: https://www.fda.gov/media/286076/download Influenza A PCR Not Detected Not Detected LAB MOLECULAR DIAGNOSTICS METHOD 06/17/2024 1:27 PM EST [facility] Influenza B PCR Not Detected Not Detected LAB MOLECULAR DIAGNOSTICS METHOD 06/17/2024 1:27 PM EST [facility] RSV PCR Not Detected Not Detected LAB MOLECULAR DIAGNOSTICS METHOD 06/17/2024 1:27 PM [facility] Swab Nasopharyngeal structure / Unknown Non-blood Collection / Unknown 06/16/2024 5:10 PM EST 06/17/2024 10:32 AM EST Florian Dia MD LAB MICROBIOLOGY - GENERAL O RDERABLES Final Result [facility] [address] [place] [address], documented in this encounter Visit Diagnoses Diagnosis Acute cough documented in this encounter Additional Health Concerns Infection Onset Date Last Indicated Resolved Time Respiratory Rule-Out 06/17/2024 06/16/2024 025 1:27 PM EST documented as of this encounter Care Teams Shredded Filler Hopper Feeder Relationship Specialty Start Date End Date Alie Barragan MD [address] [place] [address] PCP - General Internal Medicine 06/11/21 documented as of this encounter
--- OUTSIDE RECORDS SUMMARY | 2024-08-25 16:33 | XMS_ITS | Encounter Summary ---
Author Organization [facility] Address [address] [place] [address] Care Team Providers Care Contact Center Associate Name Role Phone Alie Barragan MD Primary Care Provider [phone] Encounter Details Date Type Department Care Team (Late st Contact Info) Description 08/17/2024 Lab Requisition [facility] - Main Lab [address] [facility] [place] [address] Florian Dia MD [address] [place] [address] Anemia, unspecified Social History Tobacco Use Types [...] LAB CHEMISTRY METHOD 08/17/2024 11:25 AM EDT [facility] Potassium 4.2 3.5 - 5.5 mmol/L LAB CHEMISTRY METHOD 08/17/2024 11:25 AM EDT [facility] Chloride 94(L) 96 - 110 mmol/L LAB CHEMISTRY METHOD 08/17/2024 11:25 AM [facility] CO2 28 21 - 32 mmol/L LAB CHEMISTRY METHOD 08/17/2024 11:25 AM [facility] Anion Gap 9 3 - 11 LAB CHEMISTRY METHOD 08/17/2024 11:25 AM [facility] Glucose 57(L) 70 - 100 mg/dL LAB CHEMISTRY METHOD 08/17/2024 11:25 AM [facility] BUN 8 5 - 25 mg/dL LAB CHEMISTRY METHOD 08/17/2024 11:25 AM [facility] Creatinine 0.50 0.50 - 1.10 mg/dL LAB CHEMISTRY METHOD 08/17/2024 11:25 AM [facility] eGFR 102 >=60 mL/min/1. 73m2 LAB CHEMISTRY METHOD 08/17/2024 11:25 AM [facility] Comment:Calculation based on the??Chronic Kidney Disease Epidemiology Collaboration (CKD-EPI) equation refit??without adjustment for race. BUN/Creatinine Ratio 16.0 LAB CHEMISTRY METHOD 08/17/2024 11:25 AM [facility] Calcium 8.8 8.5 - 10.5 mg/dL LAB CHEMISTRY METHOD 08/17/2024 11:25 AM [facility] Blood Venous blood specimen / Unknown Venipuncture / Unknown 08/17/2024 6:24 AM EDT 08/17/2024 9:38 AM EDT us Florian Dia MD LAB BLOOD ORDERABLES Final R esult [facility] [address] [place] [address], documented in this encounter Visit Diagnoses Diagnosis Anemia, unspecified documented in this encounter Care Teams Contact Center Associate Relationship Specialty Start Date End Date Alie Barragan MD [address] [place] [address] PCP - General Internal Medicine 06/11/21 documented as of this encounter
--- OUTSIDE RECORDS SUMMARY | 2024-08-25 16:33 | XMS_ITS | Clinical Summary ---
Author Organization [employer] Address [address] [facility] [address] [place] [address] Care Team Providers Care Lines Tender Name Role Phone Unavailable Primary Care Provider [...]
--- OUTSIDE RECORDS SUMMARY | 2024-08-25 16:33 | XMS_ITS | Clinical Summary ---
Author Organization [address] Address [address] [place] [phone] Phone Care Team Providers Care Skin Drier Name Role Phone Alie Barragan MD Primary Care Provider [phone] Allergies Active Allergy Reactions Criticality Noted Date [...] Date Hypertension 04/25/2024 Diabetic neuropathy (CMS/HCC V24, [facility] V28) 1 06/26/2023 Hypothyroid 04/25/2024 Bipolar 2 disorder ([facility] V24, [facility] V28) Dementia ([facility] V24, [facility] V28) 04/25/2024 Depression 04/25/2024 DM retinopathy ([facility] V24, [facility] V28) 2018 Seizure disorder ([facility] V24, [facility] V28) 08/26 High cholesterol 05/06/2017 Encounters Date Type Department Care Team Description 08/23/2024 Lab Requisition [facility] Lab [address] [place] [phone] Florian Dia MD Type 2 diabetes mellitus with hyperglycemia ([facility] V24, [facility] V28); Unspecified dementia, unspecified severity, with other behavioral disturbance ([facility] V24, [facility] V28) 08/17/2024 Lab Requisition [facility] [address] [place] [phone] Florian Dia MD Anemia, unspecified 08/15/2024 Lab Requisition [facility] [address] [place] [phone] Florian Dia MD Hypo-osmolality and hyponatremia 08/13/2024 Lab Requisition [facility] [address] [place] [phone] Florian Dia MD Anemia, unspecified; Type 2 diabetes mellitus without complications ([facility] V24, [facility] V28); Hyperlipidemia, unspecified; Hypothyroidism, unspecified 06/26/2024 Lab Requisition [facility] [address] [place] [phone] Florian Dia MD Type 2 diabetes mellitus with hyperglycemia ([facility] V24, [facility] V28) 06/17/2024 Lab Requisition [facility] [address] [place] [phone] Florian Dia MD Acute cough 06/01/2024 Lab Requisition [facility] - Main Lab [address] [place] [address] Florian Dia MD Type 2 diabetes mellitus without complications ([facility] V24, [facility] V28) from Last 3 Months Immunizations Name Administration Dates Next Due DTaP (Infanrix) 6wks to less than 7yo 06/18/2018 Influenza Quadravalent, MDCK , 0.5ml, preservative free (Flucelvax) 6mo and older 01/31/2020 Influenza Quadravalent, MDCK , 0.5ml, with preservative (Flucelvax) 6mo and older 02/03/2018 Influenza trivalent, 0.5mL (Fluad) 65yo and olde r 02/20/2022,03/28/2021 PPD Test 08/06/2017 [employer] SARS-CoV-2 COVID-19, mRNA, LNP-S, preservative free 03/15/2021,09/06/2020 Pneumococcal polysaccharide 23 valent (Pneumovax 23) 2yo and older 06/07/2020,09/16/2018 Tdap Tetanus diptheria acell ular pertussis (Boostrix; Adacel) 7yo and older 09/16/2018 Surgical History Surgery Date Site/Laterality Comments CHOLECYSTECTOMY 2008 PROCEDURE: HISTORICAL CHOLECYSTECTOMY CATARACT EXTRACTION PROCEDURE: HISTORICAL CATARACT REMOVAL Medical History Medical History Date Comments Dementia ([facility] V24, [facility] V28) DX:Dementia (HCC) Diabetic neuropathy ([facility] V24, [facility] V28) DX:Diabetic neuropathy (HCC) Type 2 diabetes, controlled, with neuropathy ([facility] V24, [facility] V28) DX:Type 2 diabet es, controlled, with neuropathy ([facility]) Bipolar 2 disorder ([facility] V24, [facility] V28) DX:Bipolar 2 disorder (HCC) Hypertension DX:Hypertension Hypertension DX:Hypertension Depression DX:Depression Hypothyroid DX:Hypothyroid High cholesterol DX:High cholest theresa DM retinopathy ([facility] V24, [facility] V28) 07/08/2018 DX:DM retinopathy (HCC) Moderate stage [...] EDT Type 2 diabetes mellitus with hyperglycemia ([facility] V24, [facility] V28) Unspecified dementia, unspecified severity, with other behavioral disturbance ([facility] V24, [facility] V28) COMPLETE BLOOD COUNT Routine 08/23/2024 5:42 [...] unspecified Type 2 diabetes mellitus without complications ([facility]/HCC V24, [facility] V28) Hyperlipidemia, unspecified Hypothyroidism, unspecified THYROID STIMULATING HORMONE WITH REFLEX TO FREE T4 AND FREE T3 Routine 08/13/2024 6:42 AM EDT Anemia, unspecified Type 2 diabetes mellitus without complications (CMS/HCC V24, CMS/HCC V28) Hyperlipidemia, unspecified Hypothyroidism, unspecified LIPID PANEL WITH REFLEX TO DIRECT LDL Routine 08/13/2024 6:42 AM EDT Anemia, unspecified Type 2 diabetes mellitus without complications (CMS/HCC V24, [facility] V28) Hyperlipidemia, unspecified Hypothyroidism, unspecified COMPREHENSIVE METABOLIC [...] Type 2 diabetes mellitus with hyperglycemia (CMS/HCC) [id number], RSV, FLU A AND B QUALITATIVE RT-PCR, [...] % LAB HEMETOLOGY METHOD 08/23/2024 10:37 AM [facility] MCV 99.2(H) 79.0 - [...] K/mcL LAB HEMETOLOGY METHOD 08/23/2024 10:37 [facility] Blood Venous blood specimen / Unknown Venipuncture / Unknown 08/23/2024 5:42 AM EDT 08/23/2024 9:53 AM EDT Florian Dia MD LAB BLOOD ORDERABLES Final R esult [facility] [address] [place] [address], * (ABNORMAL) Basic metabolic panel (08/23/2024 5:42 AM EDT) Only the most recent of2 resultswithin the time period is included. Sodium 138 133 - 145 mmol/L LAB CHEMISTRY METHOD 08/23/2024 11:48 AM EDT [facility] Potassium 4.3 3.5 - 5.5 mmol/L LAB CHEMISTRY METHOD 08/23/2024 11:48 AM [facility] Chloride 102 96 - 110 mmol/L LAB CHEMISTRY METHOD 08/23/2024 11:48 AM [facility] CO2 26 21 - 32 mmol/L LAB CHEMISTRY METHOD 08/23/2024 11:48 AM [facility] Anion Gap 10 3 - 11 LAB CHEMISTRY METHOD 08/23/2024 11:48 AM [facility] Glucose 110(H) 70 - 100 mg/dL LAB CHEMISTRY METHOD 08/23/2024 11:48 AM [facility] BUN 12 5 - 25 mg/dL LAB CHEMISTRY METHOD 08/23/2024 11:48 AM [facility] Creatinine 0.74 0.50 - 1.10 mg/dL LAB CHEMISTRY METHOD 08/23/2024 11:48 AM [facility] eGFR 88 >=60 mL/min/1. 73m2 LAB CHEMISTRY METHOD 08/23/2024 11:48 AM [facility] Comment:Calculation based on the??Chronic Kidney Disease Epidemiology Collaboration (CKD-EPI) equation refit??without adjustment for race. BUN/Creatinine Ratio 16.2 LAB CHEMISTRY METHOD 08/23/2024 11:48 AM [facility] Calcium 9.6 8.5 - 10.5 mg/dL LAB CHEMISTRY METHOD 08/23/2024 11:48 AM [facility] Blood Venous blood specimen / Unknown Venipuncture / Unknown 08/23/2024 5:42 AM EDT 08/23/2024 9:53 AM EDT us Florian Dia MD LAB BLOOD ORDERABLES Final R esult [facility] [address] [place] [address], [place] [phone] * (ABNORMAL) Osmolality, urine (08/14/2024 6:00 PM EDT) [facility] Osmolality, Urine 210(L) 300 - 1,300 mOsm/kg LAB CHEMISTRY METHOD 08/15/2024 11:49 AM EDT [facility] Urine Urine specimen obtained by clean catch procedure / Unknown Non-blood Collection / Unknown 08/14/2024 6:00 PM EDT 08/15/2024 10:14 AM EDT us Florian Dia MD LAB URINE ORDERABLES Final R esult Performing Organization Address City/[facility]/ZIP Co de Phone Number [facility] [address] [place] [address], [place] [phone] * Thyroid stimulating hormone with reflex to free t4 and free t3 (08/13/2024 6:42 AM EDT) [facility] TSH 2.74 0.40 - 4.00 mcIU/mL LAB CHEMISTRY METHOD 08/13/2024 11:15 AM EDT [facility] Blood Venous blood specimen / Unknown Venipuncture / Unknown 08/13/2024 6:42 AM EDT 08/13/2024 8:45 AM EDT us Florian Dia MD LAB BLOOD ORDERABLES Final R esult Performing Organization Address City/[facility]/ZIP Co de Phone Number [facility] [address] [place] [address], [place] [phone] * Lipid panel with reflex to direct LDL (08/13/2024 6:42 AM EDT) [facility] Cholesterol 102 0 - 200 mg/dL LAB [...] 4.4 LAB CHEMISTRY METHOD 08/13/2024 10:24 AM [facility] Blood Venous blood specimen / Unknown Venipuncture / Unknown 08/13/2024 6:42 AM EDT 08/13/2024 8:45 AM EDT us Florian Dia MD LAB BLOOD ORDERABLES Final R esult [facility] [address] [place] [address], * (ABNORMAL) CBC auto differential (08/13/2024 6:42 AM EDT) WBC 5.3 4.8 - 10.8 K/mcL LAB HEMETOLOGY METHOD 08/13/2024 10:03 AM [facility] RBC 3.50(L) 3.80 - 4.80 M/mcL LAB HEMETOLOGY METHOD 08/13/2024 10:03 AM T [facility] Hemoglobin 11.3(L) 11.5 - 16.0 g/dL LAB HEMETOLOGY METHOD 08/13/2024 10:03 AM [facility] Hematocrit 33.9(L) 35.0 - 47.0 % LAB HEMETOLOGY METHOD 08/13/2024 10:03 AM [facility] MCV 96.6 79.0 - 98.0 FL LAB HEMETOLOGY METHOD 08/13/2024 10:03 AM [facility] MCH 32.2(H) 27.0 - 32.0 pcg LAB HEMETOLOGY METHOD 08/13/2024 10:03 AM [facility] MCHC 33.3 32.0 - 37.0 g/dL LAB HEMETOLOGY METHOD 08/13/2024 10:03 AM [facility] RDW 13.3 11.0 - 15.0 % LAB HEMETOLOGY METHOD 08/13/2024 10:03 AM [facility] Platelets 143 130 - 400 K/mcL LAB HEMETOLOGY METHOD 08/13/2024 10:03 AM [facility] MPV 10.2 7.0 - 11.0 FL LAB HEMETOLOGY METHOD 08/13/2024 10:03 AM [facility] NRBC 0.0 <1.0 % LAB HEMETOLOGY METHOD 08/13/2024 10:03 AM [facility] NRBC Absolute 0.00 <0.10 K/mcL LAB HEMETOLOGY METHOD 08/13/2024 10:03 AM [facility] Neutrophils Relative 41.1 % LAB HEMETOLOGY METHOD 08/13/2024 10:03 AM [facility] Lymphocytes Relative 40.8 % LAB HEMETOLOGY METHOD 08/13/2024 10:03 AM [facility] Monocytes Relative 11.0 % LAB HEMETOLOGY METHOD 08/13/2024 10:03 AM [facility] Eosinophils Relative 5.9 % LAB HEMETOLOGY METHOD 08/13/2024 10:03 AM [facility] Basophils Relative 0.6 % [...] K/mcL LAB HEMETOLOGY METHOD 08/13/2024 10:03 [facility] Eosinophils Absolute 0.31 0.00 - 0.50 K/mcL LAB HEMETOLOGY METHOD 08/13/2024 10:03 [facility] Basophils Absolute 0.03 0.00 - 0.20 K/mcL LAB HEMETOLOGY METHOD 08/13/2024 10:03 AM [facility] Immature Granulocytes Absolute 0.03 0.00 - 0.03 K/mcL LAB HEMETOLOGY METHOD 08/13/2024 10:03 AM [facility] Blood Venous blood specimen / Unknown Venipuncture / Unknown 08/13/2024 6:42 AM EDT 08/13/2024 8:45 AM EDT us Florian Dia MD LAB BLOOD ORDERABLES Final R esult [facility] [address] [place] [address], * (ABNORMAL) Vitamin D 25 hydroxy (08/13/2024 6:42 AM EDT) Vit D, 25-Hydroxy 19.3(L) 30.0 - 80.0 ng/mL LAB CHEMISTRY METHOD 08/13/2024 11:15 AM [facility] Blood Venous blood specimen / Unknown Venipuncture / Unknown 08/13/2024 6:42 AM EDT 08/13/2024 8:45 AM EDT us Florian Dia MD LAB BLOOD ORDERABLES Final R esult [facility] [address] [place] [address], * (ABNORMAL) Comprehensive metabolic panel (08/13/2024 6:42 AM EDT) Sodium 129(L) 133 - 145 mmol/L LAB CHEMISTRY METHOD 08/13/2024 10:25 AM [facility] Potassium 3.8 3.5 - 5.5 mmol/L LAB CHEMISTRY METHOD 08/13/2024 10:25 AM [facility] Chloride 92(L) 96 - 110 mmol/L LAB CHEMISTRY METHOD 08/13/2024 10:25 AM [facility] CO2 27 21 - 32 mmol/L LAB CHEMISTRY METHOD 08/13/2024 10:25 AM [facility] Anion Gap 10 3 - 11 LAB CHEMISTRY METHOD 08/13/2024 10:25 AM [facility] Glucose 171(H) 70 - 100 mg/dL LAB CHEMISTRY METHOD 08/13/2024 10:25 AM [facility] BUN 7 5 - 25 mg/dL LAB CHEMISTRY METHOD 08/13/2024 10:25 AM [facility] Creatinine 0.68 0.50 - 1.10 mg/dL LAB CHEMISTRY METHOD 08/13/2024 10:25 AM [facility] eGFR 95 >=60 mL/min/1. 73m2 LAB CHEMISTRY METHOD 08/13/2024 10:25 AM [facility] Comment:Calculation based on the??Chronic Kidney Disease Epidemiology Collaboration (CKD-EPI) equation refit??without adjustment for race. BUN/Creatinine Ratio 10.3 LAB CHEMISTRY METHOD 08/13/2024 10:25 AM [facility] Calcium 8.7 8.5 - 10.5 mg/dL LAB CHEMISTRY METHOD 08/13/2024 10:25 AM [facility] AST (SGOT) 25 10 - 42 unit/L LAB CHEMISTRY METHOD 08/13/2024 10:25 AM [facility] ALT (SGPT) 18 10 - 60 unit/L LAB CHEMISTRY METHOD 08/13/2024 10:25 AM [facility] Alkaline Phosphatase 104 42 - 121 unit/L LAB CHEMISTRY METHOD 08/13/2024 10:25 AM [facility] Total Protein 7.4 6.0 - 8.0 g/dL LAB CHEMISTRY METHOD 08/13/2024 10:25 AM [facility] Albumin 3.1(L) 3.2 - 5.0 g/dL LAB CHEMISTRY METHOD 08/13/2024 10:25 AM [facility] Total Bilirubin 0.4 0.0 - 1.4 mg/dL LAB CHEMISTRY METHOD 08/13/2024 10:25 AM [facility] Blood Venous blood specimen / Unknown Venipuncture / Unknown 08/13/2024 6:42 AM EDT 08/13/2024 8:45 AM EDT us Florian Dia MD LAB BLOOD ORDERABLES Final R esult [facility] [address] [place] [address], * (ABNORMAL) Hemoglobin A1c (06/28/2024 5:33 AM EST) Hemoglobin A1C 9.2(H) <6.5 % LAB CHEMISTRY METHOD 06/29/2024 2:18 PM EST [facility] Mean Bld Glu Estim. 217 mg/dL LAB CHEMISTRY METHOD 06/29/2024 2:18 PM [facility] Blood Venous blood specimen / Unknown Venipuncture / Unknown 06/28/2024 5:33 AM EST 06/28/2024 11:30 AM EST Florian Dia MD LAB BLOOD ORDERABLES Final R esult [facility] [address] [place] [address], * [id number], RSV, Influenza A and B qualitative RT-PCR (06/16/2024 5:10 PM EST) SARS COV-2 Not Detected Not Detected LAB MOLECULAR DIAGNOSTICS METHOD 06/17/2024 1:27 PM [facility] Comment: Disclaimer: The manner in which this information is used to guide patient care is the responsibility of the healthcare provider. Testing was performed using the [employer]X Alinity m SARS-CoV-2 test. This test has [...] for Healthcare Providers can be found at: https://www.fda.gov/media/229140/download Fact sheet for Patients can be found at: https://www.fda.gov/media/218918/download Influenza A PCR Not Detected Not Detected [...] O RDERABLES Final Result Performing Organization Address [facility]/ZIP Co de Phone Number [facility] [address] [place] [address], [place] [phone] * Valproic acid level, total (06/01/2024 5:05 AM EST) Valproic Acid, Total 51 50 - 100 mcg/mL LAB CHEMISTRY METHOD 06/01/2024 10:38 AM EST [facility] Blood Venous blood specimen / Unknown Venipuncture / Unknown 06/01/2024 5:05 AM EST 06/01/2024 9:37 AM EST Florian Dia MD LAB BLOOD ORDERABLES Final R esult Performing Organization Address [facility]/ZIP Co de Phone Number [facility] [address] [place] [address], [place] [phone] * SCREENING MAMMOGRAPHY BI 2-VIEW BREAST INC [...] (World Health Organization Fracture Risk Assessment) [facility] Department of Internal Medicine recommends using [...] (World Health Organization Fracture Risk Assessment) [facility] Department of Internal Medicine recommendsusing National [...] * Urine Albumin Creatinine Ratio (10/02/2021) Pathologist [facility] Urine Albumin Creatinine Ratio abstracted Historical Provider HEALTH MAINTENANCE Final Result * Hepatitis C Screening (11/23/2018) [facility] Hepatitis C Screening abstracted [facility] Provider HEALTH MAINTENANCE Final Result from Last 3 Months or Most Recently Relevant to Health Maintenance Insurance MEDICAID - [place] Care Teams Skin Drier Relationship Specialty Start Date End Date Alie Barragan MD [address] [place] [address] PCP - General Internal Medicine 06/11/21
[2024-08-31 13:21] LABS: HPV Genotype 16 Negative (Negative); HPV Genotype 18 Positive (Negative); HPV High Risk Negative (Negative)
== END 2024-08-25 13:56 | disposition home or self-care (01) ==
LOC: HO.LNP 13:55
PROVIDERS: Visit Provider Obstetrics & Gynecology
DX: N95.0 Postmenopausal bleeding (principal); N81.10 Cystocele, unspecified
CPT/HCPCS: 87626; 88175; 99212

== ENCOUNTER 2024-08-26 13:18 | Outpatient (REF) | payer MEDICAID, SELFPAY ==
--- NOTE | ~2024-08-26 | US_ITS ---
EXAMINATION: US PELVIS TRANSABDOMINAL AND TRANSVAGINAL HISTORY: N95.0 - Postmenopausal bleeding COMPARISON: Correlation is made with an unenhanced CT of the pelvis dated 05/17/2024. TECHNIQUE: Transabdominal and endovaginal real-time 2D perry-scale ultrasound was performed. FINDINGS: Uterus: The uterus is normal in size, measuring 6.5 x 2.6 x 4.0 cm. Myometrium has a normal echotexture. No fibroids are identified. Endometrium: The endometrial stripe measures 3 mm in thickness. Right ovary: A structure in the right adnexa measuring 2.3 x 0.8 x 1.2 cm likely represents the right ovary, and is unremarkable in appearance. Left ovary: The left ovary is not identified. Pelvic fluid: none. US/US pelvic and transvaginal IMPRESSION: The endometrial stripe is not thickened. The left ovary is not identified. Electronically signed by: Mike Dorantes MD 08/27/2024 07:05 AM EDT
--- OUTSIDE RECORDS SUMMARY | 2024-08-26 15:44 | XMS_ITS | Encounter Summary ---
Author Organization [facility] Address [address] [place] [address] Care Team Providers Care Organic Gardening Teacher Name Role Phone Alie Barragan MD Primary Care Provider [phone] Encounter Details Date Type Department Care Team (Late st Contact Info) Description 06/17/2024 Lab Requisition [facility] - Main Lab [address] [facility] [place] [address] Florian Dia MD [address] [place] [address] Acute cough Social History Tobacco Use Types [...] Procedure Name Priority Date/Time Associated Diagnosis Comments [id number], RSV, FLU A AND B QUALITATIVE RT-PCR, LOCAL REFERENCE LAB Routine 06/16/2024 5:10 PM EST Acute cough documented in this encounter Results * [id number], RSV, Influenza A and B qualitative RT-PCR (06/16/2024 5:10 PM EST) SARS COV-2 Not Detected Not Detected LAB MOLECULAR DIAGNOSTICS METHOD 06/17/2024 1:27 PM EST [facility] Comment: Disclaimer: The manner in which this information is used to guide patient care is the responsibility of the healthcare provider. Testing was performed using the [employer] m SARS-CoV-2 test. This test has [...] for Healthcare Providers can be found at: https://www.fda.gov/media/266827/download Fact sheet for Patients can be found at: https://www.fda.gov/media/289474/download Influenza A PCR Not Detected Not Detected LAB MOLECULAR DIAGNOSTICS METHOD 06/17/2024 1:27 PM EST [facility] Influenza B PCR Not Detected Not Detected LAB MOLECULAR DIAGNOSTICS METHOD 06/17/2024 1:27 PM EST [facility] RSV PCR Not Detected Not Detected LAB MOLECULAR DIAGNOSTICS METHOD 06/17/2024 1:27 PM [facility] Swab Nasopharyngeal structure / Unknown Non-blood Collection / Unknown 06/16/2024 5:10 PM EST 06/17/2024 10:32 AM EST Florian Dia MD LAB MICROBIOLOGY - GENERAL O RDERABLES Final Result [facility] [address] [place] [address], documented in this encounter Visit Diagnoses Diagnosis Acute cough documented in this encounter Additional Health Concerns Infection Onset Date Last Indicated Resolved Time Respiratory Rule-Out 06/17/2024 06/16/2024 025 1:27 PM EST documented as of this encounter Care Teams Organic Gardening Teacher Relationship Specialty Start Date End Date Alie Barragan MD [address] [place] [address] PCP - General Internal Medicine 06/11/21 documented as of this encounter
--- OUTSIDE RECORDS SUMMARY | 2024-08-26 15:44 | XMS_ITS | Encounter Summary ---
Author Organization [facility] Address [address] [place] [address] Care Team Providers Care Digital Cartographic Technician Name Role Phone Alie Barragan MD Primary Care Provider [phone] Encounter Details Date Type Department Care Team (Latest Contact Info) Description 08/13/2024 Lab Requisition [facility] - Main Lab 299 [facility] [place] [address] Florian Dia MD [address] [place] [address] Anemia, unspecified; Type 2 diabetes mellitus without [...] unspecified Type 2 diabetes mellitus without complications ([facility]24, [facility] V28) Hyperlipidemia, unspecified Hypothyroidism, unspecified VITAMIN D 25 HYDROXY Routine 08/13/2024 6:42 AM EDT Anemia, unspecified Type 2 diabetes mellitus without complications ([facility] V24, [facility] V28) Hyperlipidemia, unspecified Hypothyroidism, unspecified CBC AND DIFFERENTIAL Routine 08/13/2024 6:42 AM EDT Anemia, unspecified Type 2 diabetes mellitus without complications ([facility], [facility] V28) Hyperlipidemia, unspecified Hypothyroidism, unspecified COMPREHENSIVE METABOLIC PANEL Routine 08/13/2024 6:42 AM EDT Anemia, unspecified Type 2 diabetes mellitus without complications ([facility] V[facility], [facility] V28) Hyperlipidemia, unspecified Hypothyroidism, unspecified documented in this encounter Results * (ABNORMAL) CBC auto differential (08/13/2024 6:42 AM EDT) [facility] WBC 5.3 4.8 - 10.8 K/mcL LAB HEMETOLOGY METHOD 08/13/2024 10:03 AM [facility] RBC 3.50(L) 3.80 - 4.80 M/mcL LAB HEMETOLOGY METHOD 08/13/2024 10:03 AM [facility] Hemoglobin 11.3(L) 11.5 - 16.0 g/dL LAB HEMETOLOGY METHOD 08/13/2024 10:03 AM [facility] Hematocrit 33.9(L) 35.0 - 47.0 % LAB HEMETOLOGY METHOD 08/13/2024 10:03 AM [facility] MCV 96.6 79.0 - 98.0 FL LAB HEMETOLOGY METHOD 08/13/2024 10:03 AM [facility] MCH 32.2(H) 27.0 - 32.0 pcg LAB HEMETOLOGY METHOD 08/13/2024 10:03 AM [facility] MCHC 33.3 32.0 - 37.0 g/dL LAB HEMETOLOGY METHOD 08/13/2024 10:03 AM [facility] RDW 13.3 11.0 - 15.0 % LAB HEMETOLOGY METHOD 08/13/2024 10:03 AM [facility] Platelets 143 130 - 400 K/mcL LAB HEMETOLOGY METHOD 08/13/2024 10:03 AM [facility] MPV 10.2 7.0 - 11.0 FL LAB HEMETOLOGY METHOD 08/13/2024 10:03 AM [facility] NRBC 0.0 <1.0 % LAB HEMETOLOGY METHOD 08/13/2024 10:03 AM [facility] NRBC Absolute 0.00 <0.10 K/mcL LAB HEMETOLOGY METHOD 08/13/2024 10:03 AM [facility] Neutrophils Relative 41.1 % LAB HEMETOLOGY METHOD 08/13/2024 10:03 AM [facility] Lymphocytes Relative 40.8 % LAB HEMETOLOGY METHOD 08/13/2024 10:03 AM [facility] Monocytes Relative 11.0 % LAB HEMETOLOGY METHOD 08/13/2024 10:03 AM [facility] Eosinophils Relative 5.9 % LAB HEMETOLOGY METHOD 08/13/2024 10:03 AM [facility] Basophils Relative 0.6 % LAB HEMETOLOGY METHOD 08/13/2024 10:03 AM [facility] Immature Granulocytes Relative 0.6 % LAB HEMETOLOGY METHOD 08/13/2024 10:[address] [facility] Neutrophils Absolute 2.16 1.50 - 7.00 K/mcL LAB HEMETOLOGY METHOD 08/13/2024 10:[address] [facility] Lymphocytes Absolute 2.14 1.00 - 5.00 K/mcL LAB HEMETOLOGY METHOD 08/13/2024 10:[address] [facility] Monocytes Absolute 0.58 0.20 - 1.00 K/[facility] LAB HEMETOLOGY METHOD 08/13/2024 10:[address] [facility] Eosinophils Absolute 0.31 0.00 - 0.50 K/[facility] LAB HEMETOLOGY METHOD 08/13/2024 10:[address] [facility] Basophils Absolute 0.03 0.00 - 0.20 K/mcL LAB HEMETOLOGY METHOD 08/13/2024 10:[address] [facility] Immature Granulocytes Absolute 0.03 0.00 - 0.03 K/[facility] LAB HEMETOLOGY METHOD 08/13/2024 10:[address] [facility] Blood Venous blood specimen / Unknown Venipuncture / Unknown 08/13/2024 6:42 AM EDT 08/13/2024 8:45 AM EDT us Florian Dia MD LAB BLOOD ORDERABLES Final R esult [facility] [address] [place] [address], * (ABNORMAL) Vitamin D 25 hydroxy (08/13/2024 6:42 AM EDT) Vit D, 25-Hydroxy 19.3(L) 30.0 - 80.0 ng/mL LAB CHEMISTRY METHOD 08/13/2024 11:[address] [facility] Blood Venous blood specimen / Unknown Venipuncture / Unknown 08/13/2024 6:42 AM EDT 08/13/2024 8:45 AM EDT us Florian Dia MD LAB BLOOD ORDERABLES Final R esult Performing Organization Address [facility]/ZIP Co de Phone Number [facility] [address] [place] [address], [place] [phone] * Thyroid stimulating hormone with reflex to free t4 and free t3 (08/13/2024 6:42 AM EDT) [facility] TSH 2.74 0.40 - 4.00 mcIU/mL LAB CHEMISTRY METHOD 08/13/2024 11:[address] [facility] Blood Venous blood specimen / Unknown Venipuncture / Unknown 08/13/2024 6:42 AM EDT 08/13/2024 8:45 AM EDT Florian Dia MD LAB BLOOD ORDERABLES Final R esult Performing Organization Address City/[facility]/ZIP Co de Phone Number [facility] [address] [place] [address], [place] [phone] * Lipid panel with reflex to direct LDL (08/13/2024 6:42 AM EDT) [facility] Cholesterol 102 0 - 200 mg/dL LAB CHEMISTRY METHOD 08/13/2024 10:[address] [facility] Triglycerides 84 0 - 150 mg/dL LAB CHEMISTRY METHOD 08/13/2024 10:[address] [facility] HDL 53 >=40 mg/dL LAB CHEMISTRY METHOD 08/13/2024 10:[address] [facility] LDL Calculated 32 0 - 100 mg/dL LAB CHEMISTRY METHOD 08/13/2024 10:[address] [facility] VLDL Cholesterol Tim 16.8 mg/dL LAB CHEMISTRY METHOD 08/13/2024 10:[address] [facility] Non HDL Chol. (LDL+VLDL) 49 <145 mg/dL LAB CHEMISTRY METHOD 08/13/2024 10:24 AM [facility] Chol/HDL Ratio 1.9 0.0 - 4.4 LAB CHEMISTRY METHOD 08/13/2024 10:24 AM [facility] Blood Venous blood specimen / Unknown Venipuncture / Unknown 08/13/2024 6:42 AM EDT 08/13/2024 8:45 AM EDT us Florian Dia MD LAB BLOOD ORDERABLES Final R esult [facility] [address] [place] [address], [place] [phone] * (ABNORMAL) Comprehensive metabolic panel (08/13/2024 6:42 AM EDT) Sodium 129(L) 133 - 145 mmol/L LAB CHEMISTRY METHOD 08/13/2024 10:25 AM [facility] Potassium 3.8 3.5 - 5.5 mmol/L LAB CHEMISTRY METHOD 08/13/2024 10:25 AM [facility] Chloride 92(L) 96 - 110 mmol/L LAB CHEMISTRY METHOD 08/13/2024 10:25 AM [facility] CO2 27 21 - 32 mmol/L LAB CHEMISTRY METHOD 08/13/2024 10:25 AM [facility] Anion Gap 10 3 - 11 LAB CHEMISTRY METHOD 08/13/2024 10:25 AM [facility] Glucose 171(H) 70 - 100 mg/dL LAB CHEMISTRY METHOD 08/13/2024 10:25 AM [facility] BUN 7 5 - 25 mg/dL LAB CHEMISTRY METHOD 08/13/2024 10:25 AM [facility] Creatinine 0.68 0.50 - 1.10 mg/dL LAB CHEMISTRY METHOD 08/13/2024 10:25 AM [facility] eGFR 95 >=60 mL/min/1. 73m2 LAB CHEMISTRY METHOD 08/13/2024 10:25 AM [facility] Comment:Calculation based on the??Chronic Kidney Disease Epidemiology Collaboration (CKD-EPI) equation refit??without adjustment for race. BUN/Creatinine Ratio 10.3 LAB CHEMISTRY METHOD 08/13/2024 10:25 AM [facility] Calcium 8.7 8.5 - 10.5 mg/dL LAB CHEMISTRY METHOD 08/13/2024 10:25 AM [facility] AST (SGOT) 25 10 - 42 unit/L LAB CHEMISTRY METHOD 08/13/2024 10:25 AM [facility] ALT (SGPT) 18 10 - 60 unit/L LAB CHEMISTRY METHOD 08/13/2024 10:25 AM [facility] Alkaline Phosphatase 104 42 - 121 unit/L LAB CHEMISTRY METHOD 08/13/2024 10:25 AM [facility] Total Protein 7.4 6.0 - 8.0 g/dL LAB CHEMISTRY METHOD 08/13/2024 10:25 AM [facility] Albumin 3.1(L) 3.2 - 5.0 g/dL LAB CHEMISTRY METHOD 08/13/2024 10:25 AM [facility] Total Bilirubin 0.4 0.0 - 1.4 mg/dL LAB CHEMISTRY METHOD 08/13/2024 10:25 AM [facility] Blood Venous blood specimen / Unknown Venipuncture / Unknown 08/13/2024 6:42 AM EDT 08/13/2024 8:45 AM EDT us Florian Dia MD LAB BLOOD ORDERABLES Final R esult [facility] [address] [place] [address], [place] [phone] documented in this encounter Visit Diagnoses Diagnosis Anemia, unspecified Type 2 diabetes mellitus without complications (CMS/HCC V24, CMS/[facility] V28) Hyperlipidemia, unspecified Hypothyroidism, unspecified documented in this encounter Care Teams Digital Cartographic Technician Relationship Specialty Start Date End Date Alie Barragan MD [address] [place] [address] PCP - General Internal Medicine 06/11/21 documented as of this encounter
--- OUTSIDE RECORDS SUMMARY | 2024-08-26 15:44 | XMS_ITS | Encounter Summary ---
Author Organization [facility] Address [address] [place] [address] Care Team Providers Care Verification Rep Name Role Phone Alie Barragan MD Primary Care Provider [phone] Encounter Details Date Type Department Care Team (Latest Contact Info) Description 06/01/2024 Lab Requisition [facility] - Main Lab [address] [facility] [place] [address] Florian Dia MD [address] [place] [address] Type 2 diabetes mellitus without complications (CMS/HCC [...] LAB CHEMISTRY METHOD 06/01/2024 10:38 AM EST [facility] ([facility]) [facility] Blood Venous blood specimen / Unknown Venipuncture / Unknown 06/01/2024 5:05 AM EST 06/01/2024 9:37 AM EST us Florian Dia MD LAB BLOOD ORDERABLES Final R esult [facility] ([facility]) [facility] [address] [place] [address], documented in this encounter Visit Diagnoses Diagnosis Type 2 diabetes mellitus without complications (CMS/HCC V24, CMS/HCC V28) documented in this encounter Additional Health Concerns Infection Onset Date Last Indicated Resolved Time Respiratory Rule-Out 06/17/2024 06/16/2024 025 1:27 PM EST documented as of this encounter Care Teams Verification Rep Relationship Specialty Start Date End Date Alie Barragan MD [address] [place] [address] PCP - General Internal Medicine 06/11/21 documented as of this encounter
--- OUTSIDE RECORDS SUMMARY | 2024-08-26 15:44 | XMS_ITS | Encounter Summary ---
Author Organization [facility] Address [address] [place] [address] Care Team Providers Care Cellophane Bag Machine Operator Name Role Phone Alie Barragan MD Primary Care Provider [phone] Encounter Details Date Type Department Care Team (Late st Contact Info) Description 03/16/2024 Lab Requisition [facility] - Main Lab 299 [facility] [place] [address] Florian Dia MD [address] [place] [address] Major depressive disorder, single episode, mild (CMS/HCC [...] LAB CHEMISTRY METHOD 03/16/2024 10:23 AM EST [facility]) [facility] Blood Venous blood specimen / Unknown Venipuncture / Unknown 03/16/2024 6:00 AM EST 03/16/2024 9:47 AM EST us Florian Dia MD LAB BLOOD ORDERABLES Final R esult [facility] ([facility]) [facility] [address] [place] [address], documented in this encounter Visit Diagnoses Diagnosis Major depressive disorder, single episode, mild (CMS/HCC V24) Major depressive disorder, single episode, mild documented in this encounter Additional Health Concerns Infection Onset Date Last Indicated Resolved Time Respiratory Rule-Out 06/17/2024 06/16/2024 025 1:27 PM EST documented as of this encounter Care Teams Cellophane Bag Machine Operator Relationship Specialty Start Date End Date Alie Barragan MD [address] [place] [address] PCP - General Internal Medicine 06/11/21 documented as of this encounter
--- OUTSIDE RECORDS SUMMARY | 2024-08-26 15:44 | XMS_ITS | Encounter Summary ---
Author Organization [facility] Address [address] [place] [address] Care Team Providers Care Remotely Operated Vehicle Name Role Phone Alie Barragan MD Primary Care Provider [phone] Encounter Details Date Type Department Care Team (Latest Contact Info) Description 08/23/2024 Lab Requisition [facility] - Main Lab [address] [facility] [place] [address] Florian Dia MD [address] [place] [address] Type 2 diabetes mellitus with hyperglycemia (CMS/HCC [...] dementia, unspecified severity, with other behavioral disturbance ([facility] V24, [facility] V28) documented in this encounter Results * (ABNORMAL) Basic metabolic panel (08/23/2024 5:42 AM EDT) Sodium 138 133 - 145 mmol/L LAB CHEMISTRY METHOD 08/23/2024 11:48 AM [facility] Potassium 4.3 3.5 - 5.5 mmol/L LAB CHEMISTRY METHOD 08/23/2024 11:48 AM [facility] Chloride 102 96 - 110 mmol/L LAB CHEMISTRY METHOD 08/23/2024 11:48 AM [facility] CO2 26 21 - 32 mmol/L LAB CHEMISTRY METHOD 08/23/2024 11:48 AM [facility] Anion Gap 10 3 - 11 LAB CHEMISTRY METHOD 08/23/2024 11:48 AM [facility] Glucose 110(H) 70 - 100 mg/dL LAB CHEMISTRY METHOD 08/23/2024 11:48 AM [facility] BUN 12 5 - 25 mg/dL LAB CHEMISTRY METHOD 08/23/2024 11:48 AM [facility] Creatinine 0.74 0.50 - 1.10 mg/dL LAB CHEMISTRY METHOD 08/23/2024 11:48 AM [facility] eGFR 88 >=60 mL/min/1. 73m2 LAB CHEMISTRY METHOD 08/23/2024 11:48 AM [facility] Comment:Calculation based on the??Chronic Kidney Disease Epidemiology Collaboration (CKD-EPI) equation refit??without adjustment for race. BUN/Creatinine Ratio 16.2 LAB CHEMISTRY METHOD 08/23/2024 11:48 AM [facility] Calcium 9.6 8.5 - 10.5 mg/dL LAB CHEMISTRY METHOD 08/23/2024 11:48 AM [facility] Blood Venous blood specimen / Unknown Venipuncture / Unknown 08/23/2024 5:42 AM EDT 08/23/2024 9:53 AM EDT Florian Dia MD LAB BLOOD ORDERABLES Final R esult [facility] [address] [place] [address], * (ABNORMAL) Complete blood count (08/23/2024 5:42 AM EDT) WBC 6.3 4.8 - 10.8 K/mcL LAB HEMETOLOGY METHOD 08/23/2024 10:37 AM EDT [facility] RBC 3.80 3.80 - 4.80 M/mcL LAB HEMETOLOGY METHOD 08/23/2024 10:37 AM EDT [facility] Hemoglobin 12.6 11.5 - 16.0 g/dL LAB HEMETOLOGY METHOD 08/23/2024 10:37 AM EDT [facility] Hematocrit 37.9 35.0 - 47.0 % LAB HEMETOLOGY METHOD 08/23/2024 10:37 AM [facility] MCV 99.2(H) 79.0 - 98.0 FL LAB HEMETOLOGY METHOD 08/23/2024 10:37 AM EDT [facility] MCH 33.0(H) 27.0 - 32.0 pcg LAB HEMETOLOGY METHOD 08/23/2024 10:37 AM T [facility] MCHC 33.2 32.0 - 37.0 g/dL LAB HEMETOLOGY METHOD 08/23/2024 10:37 AM [facility] RDW 14.2 11.0 - 15.0 % LAB HEMETOLOGY METHOD 08/23/2024 10:37 AM EDT [facility] Platelets 170 130 - 400 K/mcL LAB HEMETOLOGY METHOD 08/23/2024 10:37 AM EDT [facility] MPV 10.4 7.0 - 11.0 FL LAB HEMETOLOGY METHOD 08/23/2024 10:37 AM EDT [facility] NRBC 0.0 <1.0 % LAB HEMETOLOG METHOD 08/23/2024 10:37 AM EDT [facility] NRBC Absolute 0.00 <0.10 K/mcL LAB HEMETOLOGY METHOD 08/23/2024 10:37 AM EDT [facility] Blood Venous blood specimen / Unknown Venipuncture / Unknown 08/23/2024 5:42 AM EDT 08/23/2024 9:53 AM EDT us Florian Dia MD LAB BLOOD ORDERABLES Final R esult [facility] [address] [place] [address], documented in this encounter Visit Diagnoses Diagnosis Type 2 diabetes mellitus with hyperglycemia (CMS/HCC V24, CMS/HCC V28) Unspecified dementia, unspecified severity, with other behavioral disturbance (CMS/HCC V24, CMS/HCC V28) documented in this encounter Care Teams Remotely Operated Vehicle Relationship Specialty Start Date End Date Alie Barragan MD [address] [place] [address] PCP - General Internal Medicine 06/11/21 documented as of this encounter
--- OUTSIDE RECORDS SUMMARY | 2024-08-26 15:44 | XMS_ITS | Encounter Summary ---
Author Organization [facility] Address [address] [place] [address] Care Team Providers Care Process Steward Name Role Phone Alie Barragan MD Primary Care Provider [phone] Encounter Details Date Type Department Care Team (Late st Contact Info) Description 08/17/2024 Lab Requisition [facility] - Main Lab [address] [facility] [place] [address] Florian Dia MD [address] [place] [address] Anemia, unspecified Social History Tobacco Use Types [...] LAB CHEMISTRY METHOD 08/17/2024 11:25 AM EDT [facility] Potassium 4.2 3.5 - 5.5 mmol/L LAB CHEMISTRY METHOD 08/17/2024 11:25 AM EDT [facility] Chloride 94(L) 96 - 110 mmol/L LAB CHEMISTRY METHOD 08/17/2024 11:25 AM [facility] CO2 28 21 - 32 mmol/L LAB CHEMISTRY METHOD 08/17/2024 11:25 AM [facility] Anion Gap 9 3 - 11 LAB CHEMISTRY METHOD 08/17/2024 11:25 AM [facility] Glucose 57(L) 70 - 100 mg/dL LAB CHEMISTRY METHOD 08/17/2024 11:25 AM [facility] BUN 8 5 - 25 mg/dL LAB CHEMISTRY METHOD 08/17/2024 11:25 AM [facility] Creatinine 0.50 0.50 - 1.10 mg/dL LAB CHEMISTRY METHOD 08/17/2024 11:25 AM [facility] eGFR 102 >=60 mL/min/1. 73m2 LAB CHEMISTRY METHOD 08/17/2024 11:25 AM [facility] Comment:Calculation based on the??Chronic Kidney Disease Epidemiology Collaboration (CKD-EPI) equation refit??without adjustment for race. BUN/Creatinine Ratio 16.0 LAB CHEMISTRY METHOD 08/17/2024 11:25 AM [facility] Calcium 8.8 8.5 - 10.5 mg/dL LAB CHEMISTRY METHOD 08/17/2024 11:25 AM [facility] Blood Venous blood specimen / Unknown Venipuncture / Unknown 08/17/2024 6:24 AM EDT 08/17/2024 9:38 AM EDT us Florian Dia MD LAB BLOOD ORDERABLES Final R esult [facility] [address] [place] [address], documented in this encounter Visit Diagnoses Diagnosis Anemia, unspecified documented in this encounter Care Teams Process Steward Relationship Specialty Start Date End Date Aile Barragan MD [address] [place] [address] PCP - General Internal Medicine 06/11/21 documented as of this encounter
--- OUTSIDE RECORDS SUMMARY | 2024-08-26 15:44 | XMS_ITS | Encounter Summary ---
Author Organization [employer] Address [address] [facility] [address] [place] [address] Care Team Providers Care Junior Architect Name Role Phone Unavailable Primary Care Provider Unavailabl e Encounter Details Date Type Department Care Team (Latest Contact Info) Description 05/13/2018 Abstract [facility] CONVERSIONS Dental, Provider, DDS Social History [...]
--- OUTSIDE RECORDS SUMMARY | 2024-08-26 15:44 | XMS_ITS | Encounter Summary ---
Author Organization [facility] Address [address] [place] [address] Care Team Providers Care Wire Coating Operator Metal Name Role Phone Alie Barragan MD Primary Care Provider [phone] Encounter Details Date Type Department Care Team (Late st Contact Info) Description 05/07/2024 Lab Requisition [facility] - Main Lab [address] [facility] [address] Florian Dia MD [address] [place] [address] Urinary tract infection, site not specified; Dysuria [...] reflex microscopic (05/07/2024 12:00 AM EST) Specific [place] Urine 1.026 1.003 - 1.030 LAB URINALYSIS - AUTOMATED METHOD 05/07/2024 10:06 AM [facility] pH, Urine 6.5 5.0 - 8.0 pH LAB URINALYSIS - AUTOMATED METHOD 05/07/2024 10:06 AM [facility] Leukocytes, Urine Moderate(A) Negative LAB URINALYSIS - AUTOMATED METHOD 05/07/2024 10:06 AM [facility] Nitrite, Urine Negative Negative LAB URINALYSIS - AUTOMATED METHOD 05/07/2024 10:06 AM [facility] Protein, Urine Negative <=Trace mg/dL LAB URINALYSIS - AUTOMATED METHOD 05/07/2024 10:06 AM [facility] Glucose, Urine >=1000(A) Negative mg/dL LAB URINALYSIS - AUTOMATED METHOD 05/07/2024 10:06 AM [facility] Ketones, Urine Negative Negative mg/dL LAB URINALYSIS - AUTOMATED METHOD 05/07/2024 10:06 AM [facility] Urobilinogen , Urine 0.2 0.2 - 1.0 mg/dL LAB URINALYSIS - AUTOMATED METHOD 05/07/2024 10:06 AM [facility] Bilirubin, Urine Negative Negative LAB URINALYSIS - AUTOMATED METHOD 05/07/2024 10:06 AM [facility] Blood, Urine Negative Negative LAB URINALYSIS - AUTOMATED METHOD 05/07/2024 10:06 AM [facility] RBC, Urine 8.5(H) 0 - 4 /HPF LAB URINALYSIS - AUTOMATED METHOD 05/07/2024 10:06 AM [facility] WBC, Urine 176.0(H) 0 - 4 /HPF LAB URINALYSIS - AUTOMATED METHOD 05/07/2024 10:06 AM [facility] Squamous Epithelial, Urine 44 0 - 60 /LPF LAB URINALYSIS - AUTOMATED METHOD 05/07/2024 10:06 AM [facility] Bacteria, Urine Negative Negative /HPF LAB URINALYSIS - AUTOMATED METHOD 05/07/2024 10:06 AM [facility] Hyaline Casts, Urine 6.3(H) 0 - 3 /LPF LAB URINALYSIS - AUTOMATED METHOD 05/07/2024 10:06 AM [facility] Urine Urine specimen obtained by clean catch procedure / Unknown Non-blood Collection / Unknown 05/07/2024 05/07/2024 9:42 AM EST Florian Dia MD LAB URINE ORDERABLES Final R esult Performing Organization Address [facility]/ZIP Co de Phone Number [facility] [address] [place] [address], [place] [phone] * Culture urine (05/07/2024 12:00 AM EST) Culture, Urine 50,000-99,000 CFU/mL Mixed urogenital katerin, no uropathogens present. Suggest repeat specimen if clinically indicated. 05/08/2024 10:56 AM [facility] Urine Urine specimen obtained by clean catch procedure / Unknown Non-blood Collection / Unknown 05/07/2024 05/07/2024 9:42 AM EST Florian Dia MD LAB MICROBIOLOGY - GENERAL O RDERABLES Final Result Performing Organization Address [facility]/ZIP Co de Phone Number [facility] [address] [place] [address], [place] [phone] documented in this encounter Visit Diagnoses Diagnosis Urinary tract infection, site not specified Dysuria documented in this encounter Additional Health Concerns Infection Onset Date Last Indicated Resolved Time Respiratory Rule-Out 06/17/2024 06/16/2024 025 1:27 PM EST documented as of this encounter Care Teams Wire Coating Operator Metal Relationship Specialty Start Date End Date Alie Barragan MD [address] [place] [address] PCP - General Internal Medicine 06/11/21 documented as of this encounter
--- OUTSIDE RECORDS SUMMARY | 2024-08-26 15:44 | XMS_ITS | Clinical Summary ---
Author Organization [address] Address [address] [place] [phone] Phone Care Team Providers Care Lime Filter Operator Name Role Phone Alie Barragan MD Primary Care Provider [phone] Allergies Active Allergy Reactions Criticality Noted Date [...] Date Hypertension 04/25/2024 Diabetic neuropathy (CMS/HCC V24, [facility] V28) 1 06/26/2023 Hypothyroid 04/25/2024 Bipolar 2 disorder ([facility] V24, [facility] V28) Dementia ([facility] V24, [facility] V28) 04/25/2024 Depression 04/25/2024 DM retinopathy ([facility] V24, [facility] V28) 2018 Seizure disorder ([facility] V24, [facility] V28) 08/26 High cholesterol 05/06/2017 Encounters Date Type Department Care Team Description 08/23/2024 Lab Requisition [facility] Lab [address] [place] [phone] Florian Dia MD Type 2 diabetes mellitus with hyperglycemia ([facility] V24, [facility] V28); Unspecified dementia, unspecified severity, with other behavioral disturbance ([facility] V24, [facility] V28) 08/17/2024 Lab Requisition [facility] [address] [place] [phone] Florian Dia MD Anemia, unspecified 08/15/2024 Lab Requisition [facility] [address] [place] [phone] Florian Dia MD Hypo-osmolality and hyponatremia 08/13/2024 Lab Requisition [facility] [address] [place] [phone] Florian Dia MD Anemia, unspecified; Type 2 diabetes mellitus without complications ([facility] V24, [facility] V28); Hyperlipidemia, unspecified; Hypothyroidism, unspecified 06/26/2024 Lab Requisition [facility] [address] [place] [phone] Florian Dia MD Type 2 diabetes mellitus with hyperglycemia ([facility] V24, [facility] V28) 06/17/2024 Lab Requisition [facility] Lab [address] [place] [phone] Florian Dia MD Acute cough 06/01/2024 Lab Requisition [facility] - Main Lab [address] [place] [address] Florian Dia MD Type 2 diabetes mellitus without complications ([facility] V24, [facility] V28) from Last 3 Months Immunizations Name Administration Dates Next Due DTaP (Infanrix) 6wks to less than 7yo 06/18/2018 Influenza Quadravalent, MDCK , 0.5ml, preservative free (Flucelvax) 6mo and older 01/31/2020 Influenza Quadravalent, MDCK , 0.5ml, with preservative (Flucelvax) 6mo and older 02/03/2018 Influenza trivalent, 0.5mL (Fluad) 65yo and olde r 02/20/2022,03/28/2021 PPD Test 08/06/2017 Momail SARS-CoV-2 COVID-19, mRNA, LNP-S, preservative free 03/15/2021,09/06/2020 Pneumococcal polysaccharide 23 valent (Pneumovax 23) 2yo and older 06/07/2020,09/16/2018 Tdap Tetanus diptheria acell ular pertussis (Boostrix; Adacel) 7yo and older 09/16/2018 Surgical History Surgery Date Site/Laterality Comments CHOLECYSTECTOMY 2008 PROCEDURE: HISTORICAL CHOLECYSTECTOMY CATARACT EXTRACTION PROCEDURE: HISTORICAL CATARACT REMOVAL Medical History Medical History Date Comments Dementia ([facility] V24, [facility] V28) DX:Dementia (HCC) Diabetic neuropathy ([facility] V24, [facility] V28) DX:Diabetic neuropathy (HCC) Type 2 diabetes, controlled, with neuropathy ([facility] V24, [facility] V28) DX:Type 2 diabet es, controlled, with neuropathy ([facility]) Bipolar 2 disorder ([facility] V24, [facility] V28) DX:Bipolar 2 disorder (HCC) Hypertension DX:Hypertension Hypertension DX:Hypertension Depression DX:Depression Hypothyroid DX:Hypothyroid High cholesterol DX:High cholest theresa DM retinopathy ([facility] V24, [facility] V28) 07/08/2018 DX:DM retinopathy (HCC) Moderate stage [...] EDT Type 2 diabetes mellitus with hyperglycemia ([facility] V24, [facility] V28) Unspecified dementia, unspecified severity, with other behavioral disturbance ([facility] V24, [facility] V28) COMPLETE BLOOD COUNT Routine 08/23/2024 5:42 [...] unspecified Type 2 diabetes mellitus without complications ([facility]/HCC V24, [facility] V28) Hyperlipidemia, unspecified Hypothyroidism, unspecified THYROID STIMULATING HORMONE WITH REFLEX TO FREE T4 AND FREE T3 Routine 08/13/2024 6:42 AM EDT Anemia, unspecified Type 2 diabetes mellitus without complications (CMS/HCC V24, CMS/HCC V28) Hyperlipidemia, unspecified Hypothyroidism, unspecified LIPID PANEL WITH REFLEX TO DIRECT LDL Routine 08/13/2024 6:42 AM EDT Anemia, unspecified Type 2 diabetes mellitus without complications (CMS/HCC V24, [facility] V28) Hyperlipidemia, unspecified Hypothyroidism, unspecified COMPREHENSIVE METABOLIC [...] Type 2 diabetes mellitus with hyperglycemia (CMS/HCC) [id number], RSV, FLU A AND B QUALITATIVE RT-PCR, [...] % LAB HEMETOLOGY METHOD 08/23/2024 10:37 AM [facility] MCV 99.2(H) 79.0 - 98.0 [...] K/mcL LAB HEMETOLOGY METHOD 08/23/2024 10:37 [facility] Blood Venous blood specimen / Unknown Venipuncture / Unknown 08/23/2024 5:42 AM EDT 08/23/2024 9:53 AM EDT Florian Dia MD LAB BLOOD ORDERABLES Final R esult [facility] [address] [place] [address], * (ABNORMAL) Basic metabolic panel (08/23/2024 5:42 AM EDT) Only the most recent of2 resultswithin the time period is included. Sodium 138 133 - 145 mmol/L LAB CHEMISTRY METHOD 08/23/2024 11:48 AM EDT [facility] Potassium 4.3 3.5 - 5.5 mmol/L LAB CHEMISTRY METHOD 08/23/2024 11:48 AM [facility] Chloride 102 96 - 110 mmol/L LAB CHEMISTRY METHOD 08/23/2024 11:48 AM [facility] CO2 26 21 - 32 mmol/L LAB CHEMISTRY METHOD 08/23/2024 11:48 AM [facility] Anion Gap 10 3 - 11 LAB CHEMISTRY METHOD 08/23/2024 11:48 AM [facility] Glucose 110(H) 70 - 100 mg/dL LAB CHEMISTRY METHOD 08/23/2024 11:48 AM [facility] BUN 12 5 - 25 mg/dL LAB CHEMISTRY METHOD 08/23/2024 11:48 AM [facility] Creatinine 0.74 0.50 - 1.10 mg/dL LAB CHEMISTRY METHOD 08/23/2024 11:48 AM [facility] eGFR 88 >=60 mL/min/1. 73m2 LAB CHEMISTRY METHOD 08/23/2024 11:48 AM [facility] Comment:Calculation based on the??Chronic Kidney Disease Epidemiology Collaboration (CKD-EPI) equation refit??without adjustment for race. BUN/Creatinine Ratio 16.2 LAB CHEMISTRY METHOD 08/23/2024 11:48 AM [facility] Calcium 9.6 8.5 - 10.5 mg/dL LAB CHEMISTRY METHOD 08/23/2024 11:48 AM [facility] Blood Venous blood specimen / Unknown Venipuncture / Unknown 08/23/2024 5:42 AM EDT 08/23/2024 9:53 AM EDT us Florian Dia MD LAB BLOOD ORDERABLES Final R esult [facility] [address] [place] [address], [place] [phone] * (ABNORMAL) Osmolality, urine (08/14/2024 6:00 PM EDT) [facility] Osmolality, Urine 210(L) 300 - 1,300 mOsm/kg LAB CHEMISTRY METHOD 08/15/2024 11:49 AM EDT [facility] Urine Urine specimen obtained by clean catch procedure / Unknown Non-blood Collection / Unknown 08/14/2024 6:00 PM EDT 08/15/2024 10:14 AM EDT us Florian Dia MD LAB URINE ORDERABLES Final R esult Performing Organization Address City/[facility]/ZIP Co de Phone Number [facility] [address] [place] [address], [place] [phone] * Thyroid stimulating hormone with reflex to free t4 and free t3 (08/13/2024 6:42 AM EDT) [facility] TSH 2.74 0.40 - 4.00 mcIU/mL LAB CHEMISTRY METHOD 08/13/2024 11:15 AM EDT [facility] Blood Venous blood specimen / Unknown Venipuncture / Unknown 08/13/2024 6:42 AM EDT 08/13/2024 8:45 AM EDT us Florian Dia MD LAB BLOOD ORDERABLES Final R esult Performing Organization Address City/[facility]/ZIP Co de Phone Number [facility] [address] [place] [address], [place] [phone] * Lipid panel with reflex to direct LDL (08/13/2024 6:42 AM EDT) [facility] Cholesterol 102 0 - 200 mg/dL LAB [...] 4.4 LAB CHEMISTRY METHOD 08/13/2024 10:24 AM [facility] Blood Venous blood specimen / Unknown Venipuncture / Unknown 08/13/2024 6:42 AM EDT 08/13/2024 8:45 AM EDT us Florian Dia MD LAB BLOOD ORDERABLES Final R esult [facility] [address] [place] [address], * (ABNORMAL) CBC auto differential (08/13/2024 6:42 AM EDT) WBC 5.3 4.8 - 10.8 K/mcL LAB HEMETOLOGY METHOD 08/13/2024 10:03 AM [facility] RBC 3.50(L) 3.80 - 4.80 M/mcL LAB HEMETOLOGY METHOD 08/13/2024 10:03 AM T [facility] Hemoglobin 11.3(L) 11.5 - 16.0 g/dL LAB HEMETOLOGY METHOD 08/13/2024 10:03 AM [facility] Hematocrit 33.9(L) 35.0 - 47.0 % LAB HEMETOLOGY METHOD 08/13/2024 10:03 AM [facility] MCV 96.6 79.0 - 98.0 FL LAB HEMETOLOGY METHOD 08/13/2024 10:03 AM [facility] MCH 32.2(H) 27.0 - 32.0 pcg LAB HEMETOLOGY METHOD 08/13/2024 10:03 AM [facility] MCHC 33.3 32.0 - 37.0 g/dL LAB HEMETOLOGY METHOD 08/13/2024 10:03 AM [facility] RDW 13.3 11.0 - 15.0 % LAB HEMETOLOGY METHOD 08/13/2024 10:03 AM [facility] Platelets 143 130 - 400 K/mcL LAB HEMETOLOGY METHOD 08/13/2024 10:03 AM [facility] MPV 10.2 7.0 - 11.0 FL LAB HEMETOLOGY METHOD 08/13/2024 10:03 AM [facility] NRBC 0.0 <1.0 % LAB HEMETOLOGY METHOD 08/13/2024 10:03 AM [facility] NRBC Absolute 0.00 <0.10 K/mcL LAB HEMETOLOGY METHOD 08/13/2024 10:03 AM [facility] Neutrophils Relative 41.1 % LAB HEMETOLOGY METHOD 08/13/2024 10:03 AM [facility] Lymphocytes Relative 40.8 % LAB HEMETOLOGY METHOD 08/13/2024 10:03 AM [facility] Monocytes Relative 11.0 % LAB HEMETOLOGY METHOD 08/13/2024 10:03 AM [facility] Eosinophils Relative 5.9 % LAB HEMETOLOGY METHOD 08/13/2024 10:03 AM [facility] Basophils Relative 0.6 % LAB [...] K/mcL LAB HEMETOLOGY METHOD 08/13/2024 10:03 [facility] Eosinophils Absolute 0.31 0.00 - 0.50 K/mcL LAB HEMETOLOGY METHOD 08/13/2024 10:03 [facility] Basophils Absolute 0.03 0.00 - 0.20 K/mcL LAB HEMETOLOGY METHOD 08/13/2024 10:03 AM [facility] Immature Granulocytes Absolute 0.03 0.00 - 0.03 K/mcL LAB HEMETOLOGY METHOD 08/13/2024 10:03 AM [facility] Blood Venous blood specimen / Unknown Venipuncture / Unknown 08/13/2024 6:42 AM EDT 08/13/2024 8:45 AM EDT us Florian Dia MD LAB BLOOD ORDERABLES Final R esult [facility] [address] [place] [address], * (ABNORMAL) Vitamin D 25 hydroxy (08/13/2024 6:42 AM EDT) Vit D, 25-Hydroxy 19.3(L) 30.0 - 80.0 ng/mL LAB CHEMISTRY METHOD 08/13/2024 11:15 AM [facility] Blood Venous blood specimen / Unknown Venipuncture / Unknown 08/13/2024 6:42 AM EDT 08/13/2024 8:45 AM EDT us Florian Dia MD LAB BLOOD ORDERABLES Final R esult [facility] [address] [place] [address], * (ABNORMAL) Comprehensive metabolic panel (08/13/2024 6:42 AM EDT) Sodium 129(L) 133 - 145 mmol/L LAB CHEMISTRY METHOD 08/13/2024 10:25 AM [facility] Potassium 3.8 3.5 - 5.5 mmol/L LAB CHEMISTRY METHOD 08/13/2024 10:25 AM [facility] Chloride 92(L) 96 - 110 mmol/L LAB CHEMISTRY METHOD 08/13/2024 10:25 AM [facility] CO2 27 21 - 32 mmol/L LAB CHEMISTRY METHOD 08/13/2024 10:25 AM [facility] Anion Gap 10 3 - 11 LAB CHEMISTRY METHOD 08/13/2024 10:25 AM [facility] Glucose 171(H) 70 - 100 mg/dL LAB CHEMISTRY METHOD 08/13/2024 10:25 AM [facility] BUN 7 5 - 25 mg/dL LAB CHEMISTRY METHOD 08/13/2024 10:25 AM [facility] Creatinine 0.68 0.50 - 1.10 mg/dL LAB CHEMISTRY METHOD 08/13/2024 10:25 AM [facility] eGFR 95 >=60 mL/min/1. 73m2 LAB CHEMISTRY METHOD 08/13/2024 10:25 AM [facility] Comment:Calculation based on the??Chronic Kidney Disease Epidemiology Collaboration (CKD-EPI) equation refit??without adjustment for race. BUN/Creatinine Ratio 10.3 LAB CHEMISTRY METHOD 08/13/2024 10:25 AM [facility] Calcium 8.7 8.5 - 10.5 mg/dL LAB CHEMISTRY METHOD 08/13/2024 10:25 AM [facility] AST (SGOT) 25 10 - 42 unit/L LAB CHEMISTRY METHOD 08/13/2024 10:25 AM [facility] ALT (SGPT) 18 10 - 60 unit/L LAB CHEMISTRY METHOD 08/13/2024 10:25 AM [facility] Alkaline Phosphatase 104 42 - 121 unit/L LAB CHEMISTRY METHOD 08/13/2024 10:25 AM [facility] Total Protein 7.4 6.0 - 8.0 g/dL LAB CHEMISTRY METHOD 08/13/2024 10:25 AM [facility] Albumin 3.1(L) 3.2 - 5.0 g/dL LAB CHEMISTRY METHOD 08/13/2024 10:25 AM [facility] Total Bilirubin 0.4 0.0 - 1.4 mg/dL LAB CHEMISTRY METHOD 08/13/2024 10:25 AM [facility] Blood Venous blood specimen / Unknown Venipuncture / Unknown 08/13/2024 6:42 AM EDT 08/13/2024 8:45 AM EDT us Florian Dia MD LAB BLOOD ORDERABLES Final R esult [facility] [address] [place] [address], * (ABNORMAL) Hemoglobin A1c (06/28/2024 5:33 AM EST) Hemoglobin A1C 9.2(H) <6.5 % LAB CHEMISTRY METHOD 06/29/2024 2:18 PM EST [facility] Mean Bld Glu Estim. 217 mg/dL LAB CHEMISTRY METHOD 06/29/2024 2:18 PM [facility] Blood Venous blood specimen / Unknown Venipuncture / Unknown 06/28/2024 5:33 AM EST 06/28/2024 11:30 AM EST Florian Dia MD LAB BLOOD ORDERABLES Final R esult [facility] [address] [place] [address], * [id number], RSV, Influenza A and B qualitative RT-PCR (06/16/2024 5:10 PM EST) SARS COV-2 Not Detected Not Detected LAB MOLECULAR DIAGNOSTICS METHOD 06/17/2024 1:27 PM [facility] Comment: Disclaimer: The manner in which this information is used to guide patient care is the responsibility of the healthcare provider. Testing was performed using the [employer] Alinity m SARS-CoV-2 test. This test has [...] for Healthcare Providers can be found at: https://www.fda.gov/media/116982/download Fact sheet for Patients can be found at: https://www.fda.gov/media/299406/download Influenza A PCR Not Detected Not Detected [...] O RDERABLES Final Result Performing Organization Address [facility]/ZIP Co de Phone Number [facility] [address] [place] [address], [place] [phone] * Valproic acid level, total (06/01/2024 5:05 AM EST) Valproic Acid, Total 51 50 - 100 mcg/mL LAB CHEMISTRY METHOD 06/01/2024 10:38 AM EST [facility] Blood Venous blood specimen / Unknown Venipuncture / Unknown 06/01/2024 5:05 AM EST 06/01/2024 9:37 AM EST Florian Dia MD LAB BLOOD ORDERABLES Final R esult Performing Organization Address [facility]/ZIP Co de Phone Number [facility] [address] [place] [address], [place] [phone] * SCREENING MAMMOGRAPHY BI 2-VIEW BREAST [employer] [...] (World Health Organization Fracture Risk Assessment) [facility] Department of Internal Medicine recommends using [...] (World Health Organization Fracture Risk Assessment) [facility] Department of Internal Medicine recommendsusing National [...] * Urine Albumin Creatinine Ratio (10/02/2021) Pathologist [facility] Urine Albumin Creatinine Ratio abstracted Historical Provider HEALTH MAINTENANCE Final Result * Hepatitis C Screening (11/23/2018) [facility] Hepatitis C Screening abstracted [facility] Provider HEALTH MAINTENANCE Final Result from Last 3 Months or Most Recently Relevant to Health Maintenance Insurance MEDICAID - [place] Care Teams Lime Filter Operator Relationship Specialty Start Date End Date Alie Barragan MD [address] [place] [address] PCP - General Internal Medicine 06/11/21
--- OUTSIDE RECORDS SUMMARY | 2024-08-26 15:44 | XMS_ITS | Encounter Summary ---
Author Organization [facility] Address [address] [place] [address] Care Team Providers Care Employee Service Officer Name Role Phone Alie Barragan MD Primary Care Provider [phone] Encounter Details Date Type Department Care Team (Latest Contact Info) Description 04/01/2024 Lab Requisition [facility] - Main Lab [address] [facility] [place] [address] Florian Dia MD [address] [place] [address] Type 2 diabetes mellitus with hyperglycemia (CMS/HCC [...] Hemoglobin A1c (04/01/2024 6:05 AM EST) Pathologist [facility] Hemoglobin A1C 9.8(H) <6.5 % LAB CHEMISTRY METHOD 04/01/2024 11:41 AM EST [facility] Mean Bld Glu Estim. 235 mg/dL LAB CHEMISTRY METHOD 04/01/2024 11:41 AM EST [facility] Blood Venous blood specimen / Unknown Venipuncture / Unknown 04/01/2024 6:05 AM EST 04/01/2024 9:03 AM EST Florian Dia MD LAB BLOOD ORDERABLES Final R esult Performing Organization Address City/[facility]/ZIP Co de Phone Number [facility] [address] [place] [address], * Thyroid stimulating hormone (04/01/2024 6:05 AM EST) [facility] TSH 2.63 0.40 - 4.00 mcIU/mL LAB CHEMISTRY METHOD 04/01/2024 10:41 AM EST [facility] Blood Venous blood specimen / Unknown Venipuncture / Unknown 04/01/2024 6:05 AM EST 04/01/2024 9:03 AM EST Florian Dia MD LAB BLOOD ORDERABLES Final R esult Performing Organization Address City/[facility]/ZIP Co de Phone Number [facility] [address] [place] [address], * (ABNORMAL) Basic metabolic panel (04/01/2024 6:05 AM EST) [facility] Sodium 130(L) 133 - 145 mmol/L LAB CHEMISTRY METHOD 04/01/2024 10:30 AM EST [facility] Potassium 4.1 3.5 - 5.5 mmol/L LAB CHEMISTRY METHOD 04/01/2024 10:30 AM [facility] Chloride 94(L) 96 - 110 mmol/L LAB CHEMISTRY METHOD 04/01/2024 10:30 AM [facility] CO2 28 21 - 32 mmol/L LAB CHEMISTRY METHOD 04/01/2024 10:30 AM [facility] Anion Gap 8 3 - 11 LAB CHEMISTRY METHOD 04/01/2024 10:30 AM [facility] Glucose 143(H) 70 - 100 mg/dL LAB CHEMISTRY METHOD 04/01/2024 10:30 AM [facility] BUN 11 5 - 25 mg/dL LAB CHEMISTRY METHOD 04/01/2024 10:30 AM [facility] Creatinine 0.69 0.50 - 1.10 mg/dL LAB CHEMISTRY METHOD 04/01/2024 10:30 AM [facility] eGFR 95 >=60 mL/min/1. 73m2 LAB CHEMISTRY METHOD 04/01/2024 10:30 AM [facility] Comment:Calculation based on the??Chronic Kidney Disease Epidemiology Collaboration (CKD-EPI) equation refit??without adjustment for race. BUN/Creatinine Ratio 15.9 LAB CHEMISTRY METHOD 04/01/2024 10:30 AM [facility] Calcium 8.6 8.5 - 10.5 mg/dL LAB CHEMISTRY METHOD 04/01/2024 10:30 AM [facility] Blood Venous blood specimen / Unknown Venipuncture / Unknown 04/01/2024 6:05 AM EST 04/01/2024 9:03 AM EST us Florian Dia MD LAB BLOOD ORDERABLES Final R esult [facility] [address] [place] [address], * (ABNORMAL) Complete blood count (04/01/2024 6:05 AM EST) [facility] WBC 7.4 4.8 - 10.8 K/mcL LAB HEMETOLOGY METHOD 04/01/2024 10:15 AM [facility] RBC 3.40(L) 3.80 - 4.80 M/mcL LAB HEMETOLOGY METHOD 04/01/2024 10:15 AM [facility] Hemoglobin 11.3(L) 11.5 - 16.0 g/dL LAB HEMETOLOGY METHOD 04/01/2024 10:15 AM [facility] Hematocrit 33.2(L) 35.0 - 47.0 % LAB HEMETOLOGY METHOD 04/01/2024 10:15 AM [facility] MCV 97.6 79.0 - 98.0 FL LAB HEMETOLOGY METHOD 04/01/2024 10:15 AM [facility] MCH 33.2(H) 27.0 - 32.0 pcg LAB HEMETOLOGY METHOD 04/01/2024 10:15 AM [facility] MCHC 34.0 32.0 - 37.0 g/dL LAB HEMETOLOGY METHOD 04/01/2024 10:15 AM [facility] RDW 13.2 11.0 - 15.0 % LAB HEMETOLOGY METHOD 04/01/2024 10:15 AM [facility] Platelets 198 130 - 400 K/mcL LAB HEMETOLOGY METHOD 04/01/2024 10:15 AM [facility] MPV 10.0 7.0 - 11.0 FL LAB HEMETOLOGY METHOD 04/01/2024 10:15 AM [facility] NRBC 0.0 <1.0 % LAB HEMETOLOGY METHOD 04/01/2024 10:15 AM [facility] NRBC Absolute 0.00 <0.10 K/mcL LAB HEMETOLOGY METHOD 04/01/2024 10:15 AM EST [facility] Blood Venous blood specimen / Unknown Venipuncture / Unknown 04/01/2024 6:05 AM EST 04/01/2024 9:03 AM EST us Florian Dia MD LAB BLOOD ORDERABLES Final R esult [facility] [address] [place] [address], documented in this encounter Visit Diagnoses Diagnosis Type 2 diabetes mellitus with hyperglycemia (CMS/HCC V24, CMS/HCC V28) documented in this encounter Additional Health Concerns Infection Onset Date Last Indicated Resolved Time Respiratory Rule-Out 06/17/2024 06/16/2024 025 1:27 PM EST documented as of this encounter Care Teams Employee Service Officer Relationship Specialty Start Date End Date Alie Barragan MD [address] [place] [id number] PCP - General Internal Medicine 06/11/21 documented as of this encounter
--- OUTSIDE RECORDS SUMMARY | 2024-08-26 15:44 | XMS_ITS | Encounter Summary ---
Author Organization [facility] Address [address] [place] [address] Care Team Providers Care Tarring Machine Operator Name Role Phone Alie Barragan MD Primary Care Provider [phone] Encounter Details Date Type Department Care Team (Latest Contact Info) Description 06/26/2024 Lab Requisition [facility] - Main Lab [address] [facility] [place] [address] Florian Dia MD [address] [place] [address] Type 2 diabetes mellitus with hyperglycemia (CMS/HCC [...] EST Type 2 diabetes mellitus with hyperglycemia (CMS/[facility]) documented in this encounter Results * (ABNORMAL) Hemoglobin A1c (06/28/2024 5:33 AM EST) Hemoglobin A1C 9.2(H) <6.5 % LAB CHEMISTRY METHOD 06/29/2024 2:18 PM EST [facility] Mean Bld Glu Estim. 217 mg/dL LAB CHEMISTRY METHOD 06/29/2024 2:18 PM EST [facility] Blood Venous blood specimen / Unknown Venipuncture / Unknown 06/28/2024 5:33 AM EST 06/28/2024 11:30 AM EST us Florian Dia MD LAB BLOOD ORDERABLES Final R esult [facility] [address] [place] [address], documented in this encounter Visit Diagnoses Diagnosis Type 2 diabetes mellitus with hyperglycemia (CMS/HCC V24, CMS/HCC V28) documented in this encounter Care Teams Tarring Machine Operator Relationship Specialty Start Date End Date Alie Barragan MD [address] [place] [address] PCP - General Internal Medicine 06/11/21 documented as of this encounter
--- OUTSIDE RECORDS SUMMARY | 2024-08-26 15:44 | XMS_ITS | Encounter Summary ---
Author Organization [facility] Address [address] [place] [address] Care Team Providers Care Carpet Inspector Finished Name Role Phone Alie Barragan MD Primary Care Provider [phone] Encounter Details Date Type Department Care Team (Late st Contact Info) Description 08/15/2024 Lab Requisition [facility] - Main Lab [address] [facility] [place] [address] Florian Dia MD [address] [place] [address] Hypo-osmolality and hyponatremia Social History Tobacco Use [...] LAB CHEMISTRY METHOD 08/15/2024 11:49 AM EDT [facility] ([facility]) [facility] Urine Urine specimen obtained by clean catch procedure / Unknown Non-blood Collection / Unknown 08/14/2024 6:00 PM EDT 08/15/2024 10:14 AM EDT us Florian Dia MD LAB URINE ORDERABLES Final R esult [facility] ([facility]) [facility] [address] [place] [address], documented in this encounter Visit Diagnoses Diagnosis Hypo-osmolality and hyponatremia documented in this encounter Care Teams Carpet Inspector Finished Relationship Specialty Start Date End Date Alie Barragan MD [address] [place] [address] PCP - General Internal Medicine 06/11/21 documented as of this encounter
--- OUTSIDE RECORDS SUMMARY | 2024-08-26 15:44 | XMS_ITS | Clinical Summary ---
Author Organization [employer] Address [address] [facility] [address] [place] [address] Care Team Providers Care Gsa Coordinator Name Role Phone Unavailable Primary Care Provider [...]
== END 2024-08-26 13:19 | disposition home or self-care (01) ==
LOC: HO.US 13:18
PROVIDERS: Visit Provider Obstetrics & Gynecology
DX: N95.0 Postmenopausal bleeding (principal)
CPT/HCPCS: 76830; 76856

== ENCOUNTER → 2024-08-26 13:24 | Outpatient (BNV) | payer MEDICAID, SELFPAY | PROVIDERS: Visit Provider Radiology Diagnostic Radiology | DX: N95.0 Postmenopausal bleeding (principal) | CPT/HCPCS: 76830; 76856 ==

== ENCOUNTER 2024-09-16 10:22 | Outpatient (REF) | payer MEDICAID, SELFPAY | END 2024-09-16 10:23 | disposition home or self-care (01) | LOC: HO.LNP 10:22 | PROVIDERS: Visit Provider Obstetrics & Gynecology | DX: N95.0 Postmenopausal bleeding (principal); R87.610 Atypical squamous cells of undetermined significance on cytologic smear of cervix (ASC-US); R87.810 Cervical high risk human papillomavirus (HPV) DNA test positive | CPT/HCPCS: 57454; 58110; 88305 ==

== ENCOUNTER 2024-09-16 10:22 | Outpatient (AMB) | payer MEDICAID, SELFPAY ==
--- NOTE | 2024-09-16 10:33 | A.OFFVIS_ITS ---
Vital Signs 09/16/24 10:39 Height 5 ft Weight 127 lb BMI 24.8 Intake Visit Reasons: Colpo/Emb/U/S RESULTS/pessary trial Litigation Counsel Required: Yes Litigation Counsel Language: Transitional Kindergarten Teacher Services: Litigation Counsel Present (in person) Litigation Counsel Name: Luna BACA Information Interpreted: non-clinical & clinical Audiology Doctor: Audiology Doctor Present (Luna BACA) Accompanied by: Self / Same As Patient Allergies aspirin [ASPIRIN] Allergy (Unknown, Verified 09/16/24 10:41) UNKNOWN Post menopausal: Yes HPI Comments Details: Presenting for follow-up. The patient has stated that she had a recurrent episode of vaginal bleeding Pelvic ultrasound showed the following: Uterus: The uterus is normal in size, measuring 6.5 x 2.6 x 4.0 cm. Myometrium has a normal echotexture. No fibroids are identified. Endometrium: The endometrial stripe measures 3 mm in thickness. Right ovary: A structure in the right adnexa measuring 2.3 x 0.8 x 1.2 cm likely represents the right ovary, and is unremarkable in appearance. Left ovary: The left ovary is not identified. Pelvic fluid: none. US/US pelvic and transvaginal IMPRESSION: The endometrial stripe is not thickened. The left ovary is not identified. 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 We thoroughly discussed the procedure itself, including its details, alternatives, and all associated risks. This included but not limited to the following complications such as bleeding, infection, and injury to the vagina, bladder, and vessels, as well as the potential need for transfusion with all its associated risks. Subsequently, the patient sign the consent. Pap smear result: LSIL. Procedure: During the procedure, the following steps were performed: A speculum was inserted, and acetic acid was applied. Colposcopy was conducted, allowing visualization of the transformation zone. Acetowhite lesions were identified at the 5 +7 o'clock position. Cervical biopsies were obtained from the 5+ 7 o'clock position, followed by an endocervical curettage (ECC). Vaginoscopy of the upper vagina revealed no evidence of aceto-white lesions. Hemostasis was achieved using Monsel solution, and the patient tolerated the procedure well. Post-Procedure Instructions: The patient was advised to promptly contact the office or the after hours answering service or go to the emergency room if experiencing a temperature exceeding 100.4?F, abdominal pain, nausea/vomiting, or bleeding. Additionally, the patient was instructed to abstain from vaginal intercourse and bathtub use. The patient confirmed understanding of these instructions. Discharge Instructions: The patient was instructed to schedule a follow-up appointment in 2 weeks for further evaluation and management. Please note that this note was generated using a voice recognition program, and errors may have occurred during casino gaming inspector. 78907-Onpiddfip of cervix including upper vagina with biopsy and ECC Procedure code (CPT) selection complete Endometrial Biopsy Details: The patient was counseled regarding the indication and benefits of endometrial sampling to rule out endometrial pathology including not limited to endometrial hyperplasia or endometrial cancer and others; The alternatives (Either do nothing vs. hysteroscopy D&C) & the risks were discussed with the patient including but not limited: pain, uterine perforation, bleeding, infection, possible injury to bladder, bowel, ureter, possible need for blood transfusion with all its possible risks. The patient verbalized understanding all questions answered and signed consent. The patient was placed into the dorsal lithotomy position; a speculum was inserted in the vagina. Using aseptic technique for the procedure, the cervix was cleansed with Betadine. The anterior lip of the cervix was grasped with a single tooth tenaculum. The uterus was sounded to 7 cm with a 4 mm Pipelle was used. Tissues samples were obtained and placed in formalin, in a patient labeled container and sent to the pathology department. At the end of the procedure, there was minimal bleeding noted The patient tolerated the procedure well and was discharged in good condition with the following instructions: Nothing in the vagina until the bleeding stops. No sex until the bleeding stops, to call if any of the following occurs: fever (>100.4), flu-like symptoms, abdominal pain, heavy bleeding, four smelling vaginal discharge. The patient was instructed to schedule a Follow up appointment in 2 weeks to discuss pathology results of the biopsy and treatment options. This note was generated with a voice recognition program. Some errors may have been overlooked during the review of this note. Sometimes these errors may affect the content or meaning of a given sentence. [id number] Biopsy Assessment & Plan Assessment & Plan (1) Postmenopausal bleeding: Comment: Recurrent Code(s): N95.0 - Postmenopausal bleeding Category: Medical Plan: Discussed with the patient the results of the pelvic ultrasound showing an endometrial stripe thickness of 3 mm. Explained to the patient with an endometrial stripe of 4 mm &/or less, there is a high negative predictive value in detecting endometrial pathology including endometrial hyperplasia, polyps or malignancy. But since the patient had a recurrent episode of vaginal bleeding, the recommendation was to proceed with endometrial sampling to rule out endometrial pathology EMB done, see procedure note (2) Female cystocele: Comment: Central and bilateral paravaginal defects Code(s): N81.10 - Cystocele, unspecified Category: Medical Plan: Will defer pessary trial till after colposcopy biopsy (3) ASCUS with positive high risk HPV cervical: Comment: HPV 18 positive/HPV 16- Code(s): R87.610 - Atypical squamous cells of undetermined significance on cytologic smear of cervix (ASC-US); R87.810 - Cervical high risk human papillomavirus (HPV) DNA test positive Category: Medical Plan: Discussed with the patient the result of her abnormal pap, its significance, risk of progression, persistence, and regression. the false positive/negative rate of a Pap smear as a screening test in detecting cervical cancer and the indication for a diagnostic test -colposcopy, biopsy, endocervical curettage. The patient verbalized understanding and agreed with the plan, all questions answered. Colpo biopsy ECC done, see procedure note Orders: Orders AMB Colposcopy Today R87.610 - Atypical squamous cells of undetermined significance on cytologic smear of cervix (ASC-US), R87.810 - Cervical high risk human papillomavirus (HPV) DNA test positive AMB Endometrial Biopsy Today N95.0 - Postmenopausal bleeding Coding Level of Care Code Procedure Only Diagnoses Postmenopausal bleeding N95.0 Female cystocele N81.10 ASCUS with positive high risk HPV cervical R87.610; R87.810 CPT Codes Colposcopy - CPT: 82694-Srvhxobzx of cervix including upper vagina with biopsy and ECC ([id number]) Endometrial Biopsy - CPT: 16498-Wludmssqzjr Biopsy ([id number])
[2024-09-16 10:39] VITALS: BMI 24.8
--- OUTSIDE RECORDS SUMMARY | 2024-09-16 10:51 | XMS_ITS | Encounter Summary ---
Author Organization [facility] Address [address] [place] [address] Care Team Providers Care Inner Tube Cutter Name Role Phone Alie Barragan MD Primary Care Provider [phone] Encounter Details Date Type Department Care Team (Latest Contact Info) Description 08/13/2024 Lab Requisition [facility] - Main Lab [address] [facility] [place] [address] Florian Dia MD [address] [place] [address] Anemia, unspecified; Type 2 diabetes mellitus without [...] unspecified Type 2 diabetes mellitus without complications ([facility]24, [facility] V28) Hyperlipidemia, unspecified Hypothyroidism, unspecified VITAMIN D 25 HYDROXY Routine 08/13/2024 6:42 AM EDT Anemia, unspecified Type 2 diabetes mellitus without complications ([facility] V24, [facility] V28) Hyperlipidemia, unspecified Hypothyroidism, unspecified CBC AND DIFFERENTIAL Routine 08/13/2024 6:42 AM EDT Anemia, unspecified Type 2 diabetes mellitus without complications ([facility] V[facility], [facility] V28) Hyperlipidemia, unspecified Hypothyroidism, unspecified COMPREHENSIVE METABOLIC PANEL Routine 08/13/2024 6:42 AM EDT Anemia, unspecified Type 2 diabetes mellitus without complications ([facility], [facility] V28) Hyperlipidemia, unspecified Hypothyroidism, unspecified documented in this encounter Results * (ABNORMAL) CBC auto differential (08/13/2024 6:42 AM EDT) [facility] WBC 5.3 4.8 - 10.8 K/mcL LAB HEMETOLOGY METHOD 08/13/2024 10:03 AM [facility] RBC 3.50(L) 3.80 - 4.80 M/mcL LAB HEMETOLOGY METHOD 08/13/2024 10:03 AM [facility] Hemoglobin 11.3(L) 11.5 - 16.0 g/dL LAB HEMETOLOGY METHOD 08/13/2024 10:03 AM [facility] Hematocrit 33.9(L) 35.0 - 47.0 % LAB HEMETOLOGY METHOD 08/13/2024 10:03 AM [facility] MCV 96.6 79.0 - 98.0 FL LAB HEMETOLOGY METHOD 08/13/2024 10:03 AM [facility] MCH 32.2(H) 27.0 - 32.0 pcg LAB HEMETOLOGY METHOD 08/13/2024 10:03 AM [facility] MCHC 33.3 32.0 - 37.0 g/dL LAB HEMETOLOGY METHOD 08/13/2024 10:03 AM [facility] RDW 13.3 11.0 - 15.0 % LAB HEMETOLOGY METHOD 08/13/2024 10:03 AM [facility] Platelets 143 130 - 400 K/mcL LAB HEMETOLOGY METHOD 08/13/2024 10:03 AM [facility] MPV 10.2 7.0 - 11.0 FL LAB HEMETOLOGY METHOD 08/13/2024 10:03 AM [facility] NRBC 0.0 <1.0 % LAB HEMETOLOGY METHOD 08/13/2024 10:03 AM [facility] NRBC Absolute 0.00 <0.10 K/mcL LAB HEMETOLOGY METHOD 08/13/2024 10:03 AM [facility] Neutrophils Relative 41.1 % LAB HEMETOLOGY METHOD 08/13/2024 10:03 AM [facility] Lymphocytes Relative 40.8 % LAB HEMETOLOGY METHOD 08/13/2024 10:03 AM [facility] Monocytes Relative 11.0 % LAB HEMETOLOGY METHOD 08/13/2024 10:03 AM [facility] Eosinophils Relative 5.9 % LAB HEMETOLOGY METHOD 08/13/2024 10:03 AM [facility] Basophils Relative 0.6 % LAB HEMETOLOGY METHOD 08/13/2024 10:03 AM [facility] Immature Granulocytes Relative 0.6 % LAB HEMETOLOGY METHOD 08/13/2024 10:03 AM EDT [facility] Neutrophils Absolute 2.16 1.50 - 7.00 K/mcL LAB HEMETOLOGY METHOD 08/13/2024 10:03 AM EDT [facility] Lymphocytes Absolute 2.14 1.00 - 5.00 K/mcL LAB HEMETOLOGY METHOD 08/13/2024 10:03 AM EDT [facility] Monocytes Absolute 0.58 0.20 - 1.00 K/[facility] LAB HEMETOLOGY METHOD 08/13/2024 10:03 AM EDT [facility] Eosinophils Absolute 0.31 0.00 - 0.50 K/[facility] LAB HEMETOLOGY METHOD 08/13/2024 10:03 AM EDT [facility] Basophils Absolute 0.03 0.00 - 0.20 K/mcL LAB HEMETOLOGY METHOD 08/13/2024 10:03 AM EDT [facility] Immature Granulocytes Absolute 0.03 0.00 - 0.03 K/[facility] LAB HEMETOLOGY METHOD 08/13/2024 10:03 AM EDT [facility] Blood Venous blood specimen / Unknown Venipuncture / Unknown 08/13/2024 6:42 AM EDT 08/13/2024 8:45 AM EDT us Florian Dia MD LAB BLOOD ORDERABLES Final R esult [facility] [address] [place] [address], * (ABNORMAL) Vitamin D 25 hydroxy (08/13/2024 6:42 AM EDT) Vit D, 25-Hydroxy 19.3(L) 30.0 - 80.0 ng/mL LAB CHEMISTRY METHOD 08/13/2024 11:15 AM EDT [facility] Blood Venous blood specimen / Unknown Venipuncture / Unknown 08/13/2024 6:42 AM EDT 08/13/2024 8:45 AM EDT us Florian Dia MD LAB BLOOD ORDERABLES Final R esult Performing Organization Address [facility]/ZIP Co de Phone Number [facility] [address] [place] [address], [place] [phone] * Thyroid stimulating hormone with reflex to free t4 and free t3 (08/13/2024 6:42 AM EDT) [facility] TSH 2.74 0.40 - 4.00 mcIU/mL LAB CHEMISTRY METHOD 08/13/2024 11:15 AM EDT [facility] Blood Venous blood specimen / Unknown Venipuncture / Unknown 08/13/2024 6:42 AM EDT 08/13/2024 8:45 AM EDT Florian Dia MD LAB BLOOD ORDERABLES Final R esult Performing Organization Address City/[facility]/ZIP Co de Phone Number [facility] [address] [place] [address], [place] [phone] * Lipid panel with reflex to direct LDL (08/13/2024 6:42 AM EDT) [facility] Cholesterol 102 0 - 200 mg/dL LAB [...] mg/dL LAB CHEMISTRY METHOD 08/13/2024 10:24 AM [facility] Chol/HDL Ratio 1.9 0.0 - 4.4 LAB CHEMISTRY METHOD 08/13/2024 10:24 AM [facility] Blood Venous blood specimen / Unknown Venipuncture / Unknown 08/13/2024 6:42 AM EDT 08/13/2024 8:45 AM EDT us Florian Dia MD LAB BLOOD ORDERABLES Final R esult [facility] [address] [place] [address], [place] [phone] * (ABNORMAL) Comprehensive metabolic panel (08/13/2024 6:42 AM EDT) Sodium 129(L) 133 - 145 mmol/L LAB CHEMISTRY METHOD 08/13/2024 10:25 AM [facility] Potassium 3.8 3.5 - 5.5 mmol/L LAB CHEMISTRY METHOD 08/13/2024 10:25 AM [facility] Chloride 92(L) 96 - 110 mmol/L LAB CHEMISTRY METHOD 08/13/2024 10:25 AM [facility] CO2 27 21 - 32 mmol/L LAB CHEMISTRY METHOD 08/13/2024 10:25 AM [facility] Anion Gap 10 3 - 11 LAB CHEMISTRY METHOD 08/13/2024 10:25 AM [facility] Glucose 171(H) 70 - 100 mg/dL LAB CHEMISTRY METHOD 08/13/2024 10:25 AM [facility] BUN 7 5 - 25 mg/dL LAB CHEMISTRY METHOD 08/13/2024 10:25 AM [facility] Creatinine 0.68 0.50 - 1.10 mg/dL LAB CHEMISTRY METHOD 08/13/2024 10:25 AM [facility] eGFR 95 >=60 mL/min/1. 73m2 LAB CHEMISTRY METHOD 08/13/2024 10:25 AM [facility] Comment:Calculation based on the??Chronic Kidney Disease Epidemiology Collaboration (CKD-EPI) equation refit??without adjustment for race. BUN/Creatinine Ratio 10.3 LAB CHEMISTRY METHOD 08/13/2024 10:25 AM [facility] Calcium 8.7 8.5 - 10.5 mg/dL LAB CHEMISTRY METHOD 08/13/2024 10:25 AM [facility] AST (SGOT) 25 10 - 42 unit/L LAB CHEMISTRY METHOD 08/13/2024 10:25 AM [facility] ALT (SGPT) 18 10 - 60 unit/L LAB CHEMISTRY METHOD 08/13/2024 10:25 AM [facility] Alkaline Phosphatase 104 42 - 121 unit/L LAB CHEMISTRY METHOD 08/13/2024 10:25 AM [facility] Total Protein 7.4 6.0 - 8.0 g/dL LAB CHEMISTRY METHOD 08/13/2024 10:25 AM [facility] Albumin 3.1(L) 3.2 - 5.0 g/dL LAB CHEMISTRY METHOD 08/13/2024 10:25 AM [facility] Total Bilirubin 0.4 0.0 - 1.4 mg/dL LAB CHEMISTRY METHOD 08/13/2024 10:25 AM [facility] Blood Venous blood specimen / Unknown Venipuncture / Unknown 08/13/2024 6:42 AM EDT 08/13/2024 8:45 AM EDT us Florian Dia MD LAB BLOOD ORDERABLES Final R esult [facility] [address] [place] [address], [place] [phone] documented in this encounter Visit Diagnoses Diagnosis Anemia, unspecified Type 2 diabetes mellitus without complications ([facility] V24, [facility] V28) Hyperlipidemia, unspecified Hypothyroidism, unspecified documented in this encounter Care Teams Inner Tube Cutter Relationship Specialty Start Date End Date Alie Barragan MD [address] [place] [address] PCP - General Internal Medicine 06/11/21 documented as of this encounter
--- OUTSIDE RECORDS SUMMARY | 2024-09-16 10:51 | XMS_ITS | Encounter Summary ---
Author Organization [facility] Address [address] [place] [address] Care Team Providers Care Paperboard Boxes Estimator Name Role Phone Alie Barragan MD Primary Care Provider [phone] Encounter Details Date Type Department Care Team (Late st Contact Info) Description 08/15/2024 Lab Requisition [facility] - Main Lab [address] [facility] [address] Florian Dia MD [address] [place] [address] Hypo-osmolality and hyponatremia Social History Tobacco Use [...] CHEMISTRY METHOD 08/15/2024 11:49 AM EDT [facility] ([facility] Urine Urine specimen obtained by clean catch procedure / Unknown Non-blood Collection / Unknown 08/14/2024 6:00 PM EDT 08/15/2024 10:14 AM EDT us Florian Dia MD LAB URINE ORDERABLES Final R esult [facility] ([facility]) [facility] [address] [place] [address], documented in this encounter Visit Diagnoses Diagnosis Hypo-osmolality and hyponatremia documented in this encounter Care Teams Paperboard Boxes Estimator Relationship Specialty Start Date End Date Alie Barragan MD [address] [place] [address] PCP - General Internal Medicine 06/11/21 documented as of this encounter
--- OUTSIDE RECORDS SUMMARY | 2024-09-16 10:51 | XMS_ITS | Encounter Summary ---
Author Organization [facility] Address [address] [place] [address] Care Team Providers Care Set Painter Name Role Phone Alie Barragan MD Primary Care Provider [phone] Encounter Details Date Type Department Care Team (Late st Contact Info) Description 06/17/2024 Lab Requisition [facility] - Main Lab [address] [facility] [place] [address] Florian Dia MD [address] [place] [address] Acute cough Social History Tobacco Use Types [...] Procedure Name Priority Date/Time Associated Diagnosis Comments [id number], RSV, FLU A AND B QUALITATIVE RT-PCR, LOCAL REFERENCE LAB Routine 06/16/2024 5:10 PM EST Acute cough documented in this encounter Results * [id number], RSV, Influenza A and B qualitative RT-PCR (06/16/2024 5:10 PM EST) SARS COV-2 Not Detected Not Detected LAB MOLECULAR DIAGNOSTICS METHOD 06/17/2024 1:27 PM EST [facility] Comment: Disclaimer: The manner in which this information is used to guide patient care is the responsibility of the healthcare provider. Testing was performed using the [employer] m SARS-CoV-2 test. This test has [...] for Healthcare Providers can be found at: https://www.fda.gov/media/068369/download Fact sheet for Patients can be found at: https://www.fda.gov/media/219268/download Influenza A PCR Not Detected Not Detected LAB MOLECULAR DIAGNOSTICS METHOD 06/17/2024 1:27 PM EST [facility] Influenza B PCR Not Detected Not Detected LAB MOLECULAR DIAGNOSTICS METHOD 06/17/2024 1:27 PM EST [facility] RSV PCR Not Detected Not Detected LAB MOLECULAR DIAGNOSTICS METHOD 06/17/2024 1:27 PM [facility] Swab Nasopharyngeal structure / Unknown Non-blood Collection / Unknown 06/16/2024 5:10 PM EST 06/17/2024 10:32 AM EST Florian Dia MD LAB MICROBIOLOGY - GENERAL O RDERABLES Final Result [facility] [address] [place] [address], documented in this encounter Visit Diagnoses Diagnosis Acute cough documented in this encounter Additional Health Concerns Infection Onset Date Last Indicated Resolved Time Respiratory Rule-Out 06/17/2024 06/16/2024 025 1:27 PM EST documented as of this encounter Care Teams Set Painter Relationship Specialty Start Date End Date Alie Barragan MD [address] [place] [address] PCP - General Internal Medicine 06/11/21 documented as of this encounter
--- OUTSIDE RECORDS SUMMARY | 2024-09-16 10:51 | XMS_ITS | Encounter Summary ---
Author Organization [facility] Address [address] [place] [address] Care Team Providers Care Spoke Maker Name Role Phone Alie Barragan MD Primary Care Provider [phone] Encounter Details Date Type Department Care Team (Latest Contact Info) Description 06/26/2024 Lab Requisition [facility] - Main Lab [address] [facility] [place] [address] Florian Dia MD [address] [place] [address] Type 2 diabetes mellitus with hyperglycemia (CMS/HCC [...] 2 diabetes mellitus with hyperglycemia (CMS/[facility]) documented in this encounter Results * (ABNORMAL) Hemoglobin A1c (06/28/2024 5:33 AM EST) Hemoglobin A1C 9.2(H) <6.5 % LAB CHEMISTRY METHOD 06/29/2024 2:18 PM EST [facility] ([facility] Mean Bld Glu Estim. 217 mg/dL LAB CHEMISTRY METHOD 06/29/2024 2:18 PM EST [facility] Blood Venous blood specimen / Unknown Venipuncture / Unknown 06/28/2024 5:33 AM EST 06/28/2024 11:30 AM EST us Florian Dia MD LAB BLOOD ORDERABLES Final R esult [facility] [address] [place] [address], documented in this encounter Visit Diagnoses Diagnosis Type 2 diabetes mellitus with hyperglycemia (CMS/HCC V24, CMS/HCC V28) documented in this encounter Care Teams Spoke Maker Relationship Specialty Start Date End Date Alie Barragan MD [address] [place] [address] PCP - General Internal Medicine 06/11/21 documented as of this encounter
--- OUTSIDE RECORDS SUMMARY | 2024-09-16 10:51 | XMS_ITS | Clinical Summary ---
Author Organization [address] Address [address] [place] [phone] Phone Care Team Providers Care Target Setter Name Role Phone Alie Barragan MD Primary Care Provider [phone] Allergies Active Allergy Reactions Criticality Noted Date [...] Date Hypertension 04/25/2024 Diabetic neuropathy (CMS/HCC V24, [facility] V28) 1 06/26/2023 Hypothyroid 04/25/2024 Bipolar 2 disorder ([facility] V24, [facility] V28) Dementia ([facility] V24, [facility] V28) 04/25/2024 Depression 04/25/2024 DM retinopathy ([facility] V24, [facility] V28) 2018 Seizure disorder ([facility] V24, [facility] V28) 08/26 High cholesterol 05/06/2017 Encounters Date Type Department Care Team Description 08/28/[address] [facility] [address] [place] [phone] Florian Dia MD Urinary tract infection, site not specified 08/23/[address] [facility] [address] [place] [phone] Florian Dia MD Type 2 diabetes mellitus with hyperglycemia ([facility] V24, [facility] V28); Unspecified dementia, unspecified severity, with other behavioral disturbance ([facility] V24, [facility] V28) 08/17/[address] [facility] [address] [place] [phone] Florian Dia MD Anemia, unspecified 08/15/[address] [facility] [address] [place] [phone] Florian Dia MD Hypo-osmolality and hyponatremia 08/13/[address] [facility] [address] [place] [phone] Florian Dia MD Anemia, unspecified; Type 2 diabetes mellitus without complications ([facility] V24, [facility] V28); Hyperlipidemia, unspecified; Hypothyroidism, unspecified 06/26/[address] [facility] [address] [place] [phone] Florian Dia MD Type 2 diabetes mellitus with hyperglycemia ([facility] V24, [facility] V28) from Last 3 Months Immunizations Name Administration Dates Next Due DTaP (Infanrix) 6wks to less than 7yo 06/18/2018 Influenza Quadravalent, MDCK , 0.5ml, preservative free (Flucelvax) 6mo and older 01/31/2020 Influenza Quadravalent, MDCK , 0.5ml, with preservative (Flucelvax) 6mo and older 02/03/2018 Influenza trivalent, 0.5mL (Fluad) 65yo and olde r 02/20/2022,03/28/2021 PPD Test 08/06/2017 Pfizer SARS-CoV-2 COVID-19, mRNA, LNP-S, preservative free 03/15/2021,09/06/2020 Pneumococcal polysaccharide 23 valent (Pneumovax 23) 2yo and older 06/07/2020,09/16/2018 Tdap Tetanus diptheria acell ular pertussis (Boostrix; Adacel) 7yo and older 09/16/2018 Surgical History Surgery Date Site/Laterality Comments CHOLECYSTECTOMY 2008 PROCEDURE: HISTORICAL CHOLECYSTECTOMY CATARACT EXTRACTION PROCEDURE: HISTORICAL CATARACT REMOVAL Medical History Medical History Date Comments Dementia ([facility] V24, [facility] V28) DX:Dementia ([facility]) Diabetic neuropathy ([facility] V24, [facility] V28) DX:Diabetic neuropathy ([facility]) Type 2 diabetes, controlled, with neuropathy ([facility] V24, [facility] V28) DX:Type 2 diabet es, controlled, with neuropathy ([facility]) Bipolar 2 disorder ([facility] V24, [facility] V28) DX:Bipolar 2 disorder ([facility]) Hypertension DX:Hypertension Hypertension DX:Hypertension Depression DX:Depression Hypothyroid DX:Hypothyroid High cholesterol DX:High cholest theresa DM retinopathy ([facility] V24, [facility] V28) 07/08/2018 DX:DM retinopathy ([facility]) Moderate stage glaucoma 06/07/2019 DX:Moder ate stage [...] Diagnosis Comments URINALYSIS WITH REFLEX MICROSCOPIC Routine 08/28/2024 12:00 AM EDT Urinary tract infection, site not specified URINALYSIS WITH REFLEX MICROSCOPIC Routine 08/28/2024 12:00 AM EDT Urinary tract infection, site not specified CULTURE URINE Routine 08/28/2024 12:00 AM EDT Urinary tract infection, site not specified BASIC METABOLIC PANEL Routine 08/23/2024 5:42 AM EDT Type 2 diabetes mellitus with hyperglycemia (CMS/HCC V24, CMS/HCC V28) Unspecified dementia, unspecified severity, with other behavioral disturbance (CMS/HCC V24, CMS/HCC V28) COMPLETE BLOOD COUNT Routine 08/23/2024 5:42 [...] V24, CMS/HCC V28) Hyperlipidemia, unspecified Hypothyroidism, unspecified THYROID STIMULATING [...] V24, CMS/HCC V28) Hyperlipidemia, unspecified Hypothyroidism, unspecified COMPREHENSIVE METABOLIC PANEL Routine 08/13/2024 6:42 AM EDT Anemia, unspecified Type 2 diabetes mellitus without complications (CMS/HCC V24, CMS/HCC V28) Hyperlipidemia, unspecified Hypothyroidism, unspecified CBC AND DIFFERENTIAL Routine 08/13/2024 6:42 AM EDT Anemia, unspecified Type 2 diabetes mellitus without complications ([facility] V24, [facility] V28) Hyperlipidemia, unspecified Hypothyroidism, unspecified HEMOGLOBIN A1C Routine 06/28/2024 5:33 AM EST Type 2 diabetes mellitus with hyperglycemia ([facility]) SCREENING MAMMOGRAPHY BI 2-VIEW BREAST INC CAD Routine 04/09/2022 6:05 PM EST Encounter for screening mammogram for malignant neoplasm of breast DXA BONE DENSITY STUDY 1+ SITS AXIAL SKEL Routine 01/10/2022 9:48 AM EDT Type 2 diabetes mellitus with diabetic neuropathy, unspecified ([facility] V24, [facility] V28) URINE ALBUMIN CREATININE RATIO Routine 10/02/2021 HEPATITIS C SCREENING Routine 11/23/2018 from Last 3 Months or Most Recently Relevant to Health Maintenance Results * (ABNORMAL) Urinalysis with reflex microscopic (08/28/2024 12:00 AM EDT) Specific [place]ument Urine 1.013 1.003 - 1.030 LAB URINALYSIS - AUTOMATED METHOD 08/28/2024 11:30 AM [facility] pH, Urine 7.0 5.0 - 8.0 pH LAB URINALYSIS - AUTOMATED METHOD 08/28/2024 11:30 AM [facility] Leukocytes, Urine Small(A) Negative LAB URINALYSIS - AUTOMATED METHOD 08/28/2024 11:30 AM [facility] Nitrite, Urine Negative Negative LAB URINALYSIS - AUTOMATED METHOD 08/28/2024 11:30 AM [facility] Protein, Urine Negative <=Trace mg/dL LAB URINALYSIS - AUTOMATED METHOD 08/28/2024 11:30 AM [facility] Glucose, Urine 100(A) Negative mg/dL LAB URINALYSIS - AUTOMATED METHOD 08/28/2024 11:30 AM [facility] Ketones, Urine Negative Negative mg/dL LAB URINALYSIS - AUTOMATED METHOD 08/28/2024 11:30 AM [facility] Urobilinogen, Urine 0.2 0.2 - 1.0 mg/dL LAB URINALYSIS - AUTOMATED METHOD 08/28/2024 11:30 AM [facility] Bilirubin, Urine Negative Negative LAB URINALYSIS - AUTOMATED METHOD 08/28/2024 11:30 AM [facility] Blood, Urine Negative Negative LAB URINALYSIS - AUTOMATED METHOD 08/28/2024 11:30 AM [facility] RBC, Urine 1.7 0 - 4 /HPF LAB URINALYSIS - AUTOMATED METHOD 08/28/2024 11:30 AM [facility] WBC, Urine 2.4 0 - 4 /HPF LAB URINALYSIS - AUTOMATED METHOD 08/28/2024 11:30 AM [facility] Squamous Epithelial, Urine 33 0 - 60 /LPF LAB URINALYSIS - AUTOMATED METHOD 08/28/2024 11:30 AM [facility] Bacteria, Urine Negative Negative /HPF LAB URINALYSIS - AUTOMATED METHOD 08/28/2024 11:30 AM [facility] Hyaline Casts, Urine 1.2 0 - 3 /LPF LAB URINALYSIS - AUTOMATED METHOD 08/28/2024 11:30 AM [facility] Urine Urine specimen obtained by clean catch procedure / Unknown 08/28/2024 08/28/2024 11:07 AM EDT us Florian Dia MD LAB URINE ORDERABLES Final R esult [facility] [address] [place] [address], * (ABNORMAL) Culture urine (08/28/2024 12:00 AM EDT) Pathologist [facility] Culture, Urine 50,000-100,000 CFU/mL Streptococcus beta-hemolytic Group B(A) 08/29/2024 9:56 AM EDT [facility] Comment: Susceptibility testing is not routinely performed for Beta Streptococcus isolates since these organisms are predictably sensitive to Penicillin. If the Patient is not responding, is allergic to Penicillin, or further therapeutic information is requir ed, please consult an Infectious Disease Specialist. The organism value for this result has been updated. These results have been appended to the previously preliminary verified report. Urine Urine specimen obtained by clean catch procedure / Unknown 08/28/2024 08/28/2024 11:07 AM EDT Narrative [facility] - 08/29/2024 9:56 AM EDT Additional colony types present in insignificant amounts. Florian Dia MD LAB MICROBIOLOGY - GENERAL O RDERABLES Final Result [facility] [address] [place] [address], * (ABNORMAL) Complete blood count (08/23/2024 5:42 AM EDT) [facility] WBC 6.3 4.8 - 10.8 K/mcL LAB HEMETOLOGY METHOD 08/23/2024 10:37 AM EDT [facility] RBC 3.80 3.80 - 4.80 M/mcL LAB HEMETOLOGY METHOD 08/23/2024 10:37 AM EDT [facility] Hemoglobin 12.6 11.5 - 16.0 g/dL LAB HEMETOLOGY METHOD 08/23/2024 10:37 AM EDT [facility] Hematocrit 37.9 35.0 - 47.0 % LAB HEMETOLOGY METHOD 08/23/2024 10:37 AM EDT [facility] MCV 99.2(H) 79.0 - 98.0 FL LAB HEMETOLOGY METHOD 08/23/2024 10:37 AM EDT [facility] MCH 33.0(H) 27.0 - 32.0 pcg LAB HEMETOLOGY METHOD 08/23/2024 10:37 AM EDT [facility] MCHC 33.2 32.0 - 37.0 g/dL LAB HEMETOLOGY METHOD 08/23/2024 10:37 AM EDT [facility] RDW 14.2 11.0 - 15.0 % LAB HEMETOLOGY METHOD 08/23/2024 10:37 AM EDT [facility] Platelets 170 130 - 400 K/mcL LAB HEMETOLOGY METHOD 08/23/2024 10:37 AM EDT [facility] MPV 10.4 7.0 - 11.0 FL LAB HEMETOLOGY METHOD 08/23/2024 10:37 AM EDT [facility] NRBC 0.0 <1.0 % LAB HEMETOLOGY METHOD 08/23/2024 10:37 AM EDT [facility] NRBC Absolute 0.00 <0.10 K/mcL LAB HEMETOLOGY METHOD 08/23/2024 10:37 AM EDT [facility] Blood Venous blood specimen / Unknown Venipuncture / Unknown 08/23/2024 5:42 AM EDT 08/23/2024 9:53 AM EDT us Florian Dia MD LAB BLOOD ORDERABLES Final R esult [facility] [address] [place] [address], * (ABNORMAL) Basic metabolic panel (08/23/2024 5:42 AM EDT) Only the most recent of2 resultswithin the time period is included. Sodium 138 133 - 145 mmol/L LAB CHEMISTRY METHOD 08/23/2024 11:48 AM [facility] Potassium 4.3 3.5 - 5.5 mmol/L LAB CHEMISTRY METHOD 08/23/2024 11:48 AM [facility] Chloride 102 96 - 110 mmol/L LAB CHEMISTRY METHOD 08/23/2024 11:48 AM [facility] CO2 26 21 - 32 mmol/L LAB CHEMISTRY METHOD 08/23/2024 11:48 AM [facility] Anion Gap 10 3 - 11 LAB CHEMISTRY METHOD 08/23/2024 11:48 AM [facility] Glucose 110(H) 70 - 100 mg/dL LAB CHEMISTRY METHOD 08/23/2024 11:48 AM [facility] BUN 12 5 - 25 mg/dL LAB CHEMISTRY METHOD 08/23/2024 11:48 AM [facility] Creatinine 0.74 0.50 - 1.10 mg/dL LAB CHEMISTRY METHOD 08/23/2024 11:48 AM [facility] eGFR 88 >=60 mL/min/1. 73m2 LAB CHEMISTRY METHOD 08/23/2024 11:48 AM [facility] Comment:Calculation based on the??Chronic Kidney Disease Epidemiology Collaboration (CKD-EPI) equation refit??without adjustment for race. BUN/Creatinine Ratio 16.2 LAB CHEMISTRY METHOD 08/23/2024 11:48 AM [facility] Calcium 9.6 8.5 - 10.5 mg/dL LAB CHEMISTRY METHOD 08/23/2024 11:48 AM [facility] Blood Venous blood specimen / Unknown Venipuncture / Unknown 08/23/2024 5:42 AM EDT 08/23/2024 9:53 AM EDT us Florian Dia MD LAB BLOOD ORDERABLES Final R esult [facility] [address] [place] [address], [place] [phone] * (ABNORMAL) Osmolality, urine (08/14/2024 6:00 PM EDT) [facility] Osmolality, Urine 210(L) 300 - 1,300 mOsm/kg LAB CHEMISTRY METHOD 08/15/2024 11:49 AM EDT [facility] Urine Urine specimen obtained by clean catch procedure / Unknown Non-blood Collection / Unknown 08/14/2024 6:00 PM EDT 08/15/2024 10:14 AM EDT us Florian Dia MD LAB URINE ORDERABLES Final R esult Performing Organization Address City/[facility] [address]/ZIP Co de Phone Number [facility] [address] [place] [address], [place] [phone] * Thyroid stimulating hormone with reflex to free t4 and free t3 (08/13/2024 6:42 AM EDT) [facility] TSH 2.74 0.40 - 4.00 mcIU/mL LAB CHEMISTRY METHOD 08/13/2024 11:15 AM EDT [facility] Blood Venous blood specimen / Unknown Venipuncture / Unknown 08/13/2024 6:42 AM EDT 08/13/2024 8:45 AM EDT Florian Dia MD LAB BLOOD ORDERABLES Final R esult [facility] [address] [place] [address], [place] [phone] * Lipid panel with reflex to direct LDL (08/13/2024 6:42 AM EDT) [facility] Cholesterol 102 0 - 200 mg/dL LAB CHEMISTRY METHOD 08/13/2024 10:24 AM EDT [facility] Triglycerides 84 0 - 150 mg/dL LAB CHEMISTRY METHOD 08/13/2024 10:24 AM EDT [facility] HDL 53 >=40 mg/dL LAB CHEMISTRY METHOD 08/13/2024 10:24 AM EDT [facility] LDL Calculated 32 0 - 100 mg/dL LAB CHEMISTRY METHOD 08/13/2024 10:24 AM T [facility] VLDL Cholesterol Tim 16.8 mg/dL LAB CHEMISTRY METHOD 08/13/2024 10:24 AM T [facility] Non HDL Chol. (LDL+VLDL) 49 <145 mg/dL LAB CHEMISTRY METHOD 08/13/2024 10:24 AM T [facility] Chol/HDL Ratio 1.9 0.0 - 4.4 LAB CHEMISTRY METHOD 08/13/2024 10:24 AM [facility] Blood Venous blood specimen / Unknown Venipuncture / Unknown 08/13/2024 6:42 AM EDT 08/13/2024 8:45 AM EDT us Florian Dia MD LAB BLOOD ORDERABLES Final R esult [facility] [address] [place] [address], * (ABNORMAL) CBC auto differential (08/13/2024 6:42 AM EDT) WBC 5.3 4.8 - 10.8 K/mcL LAB HEMETOLOGY METHOD 08/13/2024 10:03 AM T [facility] RBC 3.50(L) 3.80 - 4.80 M/mcL LAB HEMETOLOGY METHOD 08/13/2024 10:03 AM T [facility] Hemoglobin 11.3(L) 11.5 - 16.0 g/dL LAB HEMETOLOGY METHOD 08/13/2024 10:03 AM [facility] Hematocrit 33.9(L) 35.0 - 47.0 % LAB HEMETOLOGY METHOD 08/13/2024 10:03 AM [facility] MCV 96.6 79.0 - 98.0 FL LAB HEMETOLOGY METHOD 08/13/2024 10:03 AM [facility] MCH 32.2(H) 27.0 - 32.0 pcg LAB HEMETOLOGY METHOD 08/13/2024 10:03 AM [facility] MCHC 33.3 32.0 - 37.0 g/dL LAB HEMETOLOGY METHOD 08/13/2024 10:03 AM [facility] RDW 13.3 11.0 - 15.0 % LAB HEMETOLOGY METHOD 08/13/2024 10:03 AM [facility] Platelets 143 130 - 400 K/mcL LAB HEMETOLOGY METHOD 08/13/2024 10:03 AM [facility] MPV 10.2 7.0 - 11.0 FL LAB HEMETOLOGY METHOD 08/13/2024 10:03 AM [facility] NRBC 0.0 <1.0 % LAB HEMETOLOGY METHOD 08/13/2024 10:03 AM [facility] NRBC Absolute 0.00 <0.10 K/mcL LAB HEMETOLOGY METHOD 08/13/2024 10:03 AM [facility] Neutrophils Relative 41.1 % LAB HEMETOLOGY METHOD 08/13/2024 10:03 AM [facility] Lymphocytes Relative 40.8 % LAB HEMETOLOGY METHOD 08/13/2024 10:03 AM [facility] Monocytes Relative 11.0 % LAB HEMETOLOGY METHOD 08/13/2024 10:03 AM [facility] Eosinophils Relative 5.9 % LAB HEMETOLOGY METHOD 08/13/2024 10:03 AM [facility] Basophils Relative 0.6 % LAB HEMETOLOGY METHOD 08/13/2024 10:03 AM EDT [facility] Immature Granulocytes Relative 0.6 % LAB HEMETOLOGY METHOD 08/13/2024 10:03 AM EDT [facility] Neutrophils Absolute 2.16 1.50 - 7.00 K/mcL LAB HEMETOLOGY METHOD 08/13/2024 10:03 AM EDT [facility] Lymphocytes Absolute 2.14 1.00 - 5.00 K/mcL LAB HEMETOLOGY METHOD 08/13/2024 10:03 AM EDT [facility] Monocytes Absolute 0.58 0.20 - 1.00 K/mcL LAB HEMETOLOGY METHOD 08/13/2024 10:03 AM [facility] Eosinophils Absolute 0.31 0.00 - 0.50 K/mcL LAB HEMETOLOGY METHOD 08/13/2024 10:03 AM [facility] Basophils Absolute 0.03 0.00 - 0.20 K/mcL LAB [facility]EMETOLOGY [facility] Immature Granulocytes Absolute 0.03 0.00 - 0.03 K/mcL LAB HEMETOLOGY METHOD 08/13/2024 10:03 AM [facility] Blood Venous blood specimen / Unknown Venipuncture / Unknown 08/13/2024 6:42 AM EDT 08/13/2024 8:45 AM EDT us Florian Dia MD LAB BLOOD ORDERABLES Final R esult [facility] [address] [place] [address], * (ABNORMAL) Vitamin D 25 hydroxy (08/13/2024 6:42 AM EDT) Vit D, 25-Hydroxy 19.3(L) 30.0 - 80.0 ng/mL LAB CHEMISTRY METHOD 08/13/2024 11:15 AM [facility] Blood Venous blood specimen / Unknown Venipuncture / Unknown 08/13/2024 6:42 AM EDT 08/13/2024 8:45 AM EDT us Florian Dia MD LAB BLOOD ORDERABLES Final R esult [facility] [address] [place] [address], [place] [phone] * (ABNORMAL) Comprehensive metabolic panel (08/13/2024 6:42 AM EDT) Sodium 129(L) 133 - 145 mmol/L LAB CHEMISTRY METHOD 08/13/2024 10:25 AM [facility] Potassium 3.8 3.5 - 5.5 mmol/L LAB CHEMISTRY METHOD 08/13/2024 10:25 AM [facility] Chloride 92(L) 96 - 110 mmol/L LAB CHEMISTRY METHOD 08/13/2024 10:25 AM [facility] CO2 27 21 - 32 mmol/L LAB CHEMISTRY METHOD 08/13/2024 10:25 AM [facility] Anion Gap 10 3 - 11 LAB CHEMISTRY METHOD 08/13/2024 10:25 AM [facility] Glucose 171(H) 70 - 100 mg/dL LAB CHEMISTRY METHOD 08/13/2024 10:25 AM [facility] BUN 7 5 - 25 mg/dL LAB CHEMISTRY METHOD 08/13/2024 10:25 AM [facility] Creatinine 0.68 0.50 - 1.10 mg/dL LAB CHEMISTRY METHOD 08/13/2024 10:25 AM [facility] eGFR 95 >=60 mL/min/1. 73m2 LAB CHEMISTRY METHOD 08/13/2024 10:25 AM [facility] Comment:Calculation based on the??Chronic Kidney Disease Epidemiology Collaboration (CKD-EPI) equation refit??without adjustment for race. BUN/Creatinine Ratio 10.3 LAB CHEMISTRY METHOD 08/13/2024 10:25 AM [facility] Calcium 8.7 8.5 - 10.5 mg/dL LAB CHEMISTRY METHOD 08/13/2024 10:25 AM [facility] AST (SGOT) 25 10 - 42 unit/L LAB CHEMISTRY METHOD 08/13/2024 10:25 AM [facility] ALT (SGPT) 18 10 - 60 unit/L LAB CHEMISTRY METHOD 08/13/2024 10:25 AM [facility] Alkaline Phosphatase 104 42 - 121 unit/L LAB CHEMISTRY METHOD 08/13/2024 10:25 AM [facility] Total Protein 7.4 6.0 - 8.0 g/dL LAB CHEMISTRY METHOD 08/13/2024 10:25 AM [facility] Albumin 3.1(L) 3.2 - 5.0 g/dL LAB CHEMISTRY METHOD 08/13/2024 10:25 AM [facility] Total Bilirubin 0.4 0.0 - 1.4 mg/dL LAB CHEMISTRY METHOD 08/13/2024 10:25 AM [facility] Blood Venous blood specimen / Unknown Venipuncture / Unknown 08/13/2024 6:42 AM EDT 08/13/2024 8:45 AM EDT us Florian Dia MD LAB BLOOD ORDERABLES Final R esult [facility] [address] [place] [address], * (ABNORMAL) Hemoglobin A1c (06/28/2024 5:33 AM EST) Hemoglobin A1C 9.2(H) <6.5 % LAB CHEMISTRY METHOD 06/29/2024 2:18 PM EST [facility] Mean Bld Glu Estim. 217 mg/dL LAB CHEMISTRY METHOD 06/29/2024 2:18 PM EST [facility] Blood Venous blood specimen / Unknown Venipuncture / Unknown 06/28/2024 5:33 AM EST 06/28/2024 11:30 AM EST us Florian Dia MD LAB BLOOD ORDERABLES Final R esult [facility] [address] [place] [address], * SCREENING MAMMOGRAPHY BI 2-VIEW BREAST INC [...] (World Health Organization Fracture Risk Assessment) [facility] Department of Internal Medicine recommends using [...] (World Health Organization Fracture Risk Assessment) [facility] Department of Internal Medicine recommendsusing National [...] sult * Urine Albumin Creatinine Ratio (10/02/2021) Urine Albumin Creatinine Ratio abstracted Historical Provider HEALTH MAINTENANCE Final Result * Hepatitis C Screening (11/23/2018) Hepatitis C Screening abstracted Historical Provider HEALTH MAINTENANCE Final Result from Last 3 Months or Most Recently Relevant to Health Maintenance Insurance MEDICAID - [place] Care Teams Target Setter Relationship Specialty Start Date End Date Alie Barragan MD [address] [place] [address] PCP - General Internal Medicine 06/11/21
--- OUTSIDE RECORDS SUMMARY | 2024-09-16 10:51 | XMS_ITS | Encounter Summary ---
Author Organization [facility] Address [address] [place] [address] Care Team Providers Care Land Degradation Analyst Name Role Phone Alie Barragan MD Primary Care Provider [phone] Encounter Details Date Type Department Care Team (Late st Contact Info) Description 08/17/2024 Lab Requisition [facility] [address] [facility] [place] [address] Florian Dia MD [address] [place] [address] Anemia, unspecified Social History Tobacco Use Types [...] mmol/L LAB CHEMISTRY METHOD 08/17/2024 11:25 AM [facility] CO2 28 21 - 32 mmol/L LAB CHEMISTRY METHOD 08/17/2024 11:25 AM [facility] Anion Gap 9 3 - 11 LAB CHEMISTRY METHOD 08/17/2024 11:25 AM [facility] Glucose 57(L) 70 - 100 mg/dL LAB CHEMISTRY METHOD 08/17/2024 11:25 AM [facility] BUN 8 5 - 25 mg/dL LAB CHEMISTRY METHOD 08/17/2024 11:25 AM [facility] Creatinine 0.50 0.50 - 1.10 mg/dL LAB CHEMISTRY METHOD 08/17/2024 11:25 AM [facility] eGFR 102 >=60 mL/min/1. 73m2 LAB CHEMISTRY METHOD 08/17/2024 11:25 AM [facility] Comment:Calculation based on the??Chronic Kidney Disease Epidemiology Collaboration (CKD-EPI) equation refit??without adjustment for race. BUN/Creatinine Ratio 16.0 LAB CHEMISTRY METHOD 08/17/2024 11:25 AM [facility] Calcium 8.8 8.5 - 10.5 mg/dL LAB CHEMISTRY METHOD 08/17/2024 11:25 AM [facility] Blood Venous blood specimen / Unknown Venipuncture / Unknown 08/17/2024 6:24 AM EDT 08/17/2024 9:38 AM EDT us Florian Dia MD LAB BLOOD ORDERABLES Final R esult [facility] [address] [place] [address], documented in this encounter Visit Diagnoses Diagnosis Anemia, unspecified documented in this encounter Care Teams Land Degradation Analyst Relationship Specialty Start Date End Date Alie Barragan MD [address] [place] [address] PCP - General Internal Medicine 06/11/21 documented as of this encounter
--- OUTSIDE RECORDS SUMMARY | 2024-09-16 10:51 | XMS_ITS | Clinical Summary ---
Author Organization [employer] Address [address] [facility] [address] [place] [address] Care Team Providers Care Bunker Worker Name Role Phone Unavailable Primary Care Provider [...]
--- OUTSIDE RECORDS SUMMARY | 2024-09-16 10:51 | XMS_ITS | Encounter Summary ---
Author Organization [facility] Address [address] [place] [address] Care Team Providers Care Maker Up Folding Name Role Phone Alie Barragan MD Primary Care Provider [phone] Encounter Details Date Type Department Care Team (Late st Contact Info) Description 05/07/2024 Lab Requisition [facility] - Main Lab [address] [facility] [place] [address] Florian Dia MD [address] [place] [address] Urinary tract infection, site not specified; Dysuria [...] reflex microscopic (05/07/2024 12:00 AM EST) Specific [place] Urine 1.026 1.003 - 1.030 LAB URINALYSIS - AUTOMATED METHOD 05/07/2024 10:06 AM [facility] pH, Urine 6.5 5.0 - 8.0 pH LAB URINALYSIS - AUTOMATED METHOD 05/07/2024 10:06 AM [facility] Leukocytes, Urine Moderate(A) Negative LAB URINALYSIS - AUTOMATED METHOD 05/07/2024 10:06 AM [facility] Nitrite, Urine Negative Negative LAB URINALYSIS - AUTOMATED METHOD 05/07/2024 10:06 AM [facility] Protein, Urine Negative <=Trace mg/dL LAB URINALYSIS - AUTOMATED METHOD 05/07/2024 10:06 AM [facility] Glucose, Urine >=1000(A) Negative mg/dL LAB URINALYSIS - AUTOMATED METHOD 05/07/2024 10:06 AM [facility] Ketones, Urine Negative Negative mg/dL LAB URINALYSIS - AUTOMATED METHOD 05/07/2024 10:06 AM [facility] Urobilinogen , Urine 0.2 0.2 - 1.0 mg/dL LAB URINALYSIS - AUTOMATED METHOD 05/07/2024 10:06 AM [facility] Bilirubin, Urine Negative Negative LAB URINALYSIS - AUTOMATED METHOD 05/07/2024 10:06 AM [facility] Blood, Urine Negative Negative LAB URINALYSIS - AUTOMATED METHOD 05/07/2024 10:06 AM [facility] RBC, Urine 8.5(H) 0 - 4 /HPF LAB URINALYSIS - AUTOMATED METHOD 05/07/2024 10:06 AM [facility] WBC, Urine 176.0(H) 0 - 4 /HPF LAB URINALYSIS - AUTOMATED METHOD 05/07/2024 10:06 AM [facility] Squamous Epithelial, Urine 44 0 - 60 /LPF LAB URINALYSIS - AUTOMATED METHOD 05/07/2024 10:06 AM [facility] Bacteria, Urine Negative Negative /HPF LAB URINALYSIS - AUTOMATED METHOD 05/07/2024 10:06 AM [facility] Hyaline Casts, Urine 6.3(H) 0 - 3 /LPF LAB URINALYSIS - AUTOMATED METHOD 05/07/2024 10:06 AM [facility] Urine Urine specimen obtained by clean catch procedure / Unknown Non-blood Collection / Unknown 05/07/2024 05/07/2024 9:42 AM EST Florian Dia MD LAB URINE ORDERABLES Final R esult Performing Organization Address [facility]/ZIP Co de Phone Number [facility] [address] [place] [address], [place] [phone] * Culture urine (05/07/2024 12:00 AM EST) Culture, Urine 50,000-99,000 CFU/mL Mixed urogenital katerin, no uropathogens present. Suggest repeat specimen if clinically indicated. 05/08/2024 10:56 AM [facility] Urine Urine specimen obtained by clean catch procedure / Unknown Non-blood Collection / Unknown 05/07/2024 05/07/2024 9:42 AM EST Florian Dia MD LAB MICROBIOLOGY - GENERAL O RDERABLES Final Result Performing Organization Address [facility]/ZIP Co de Phone Number [facility] [address] [place] [address], [place] [phone] documented in this encounter Visit Diagnoses Diagnosis Urinary tract infection, site not specified Dysuria documented in this encounter Additional Health Concerns Infection Onset Date Last Indicated Resolved Time Respiratory Rule-Out 06/17/2024 06/16/2024 025 1:27 PM EST documented as of this encounter Care Teams Maker Up Folding Relationship Specialty Start Date End Date Alie Barragan MD [address] [place] [address] PCP - General Internal Medicine 06/11/21 documented as of this encounter
--- OUTSIDE RECORDS SUMMARY | 2024-09-16 10:51 | XMS_ITS | Encounter Summary ---
Author Organization [facility] Address [address] [facility] [address] [place] [address] Care Team Providers Care Scale Assembly Set Up Worker Name Role Phone Unavailable Primary Care Provider Unavailabl e Encounter Details Date Type Department Care Team (Latest Contact Info) Description 05/13/2018 Abstract [facility] CONVERSIONS Dental, Provider, DDS Social History [...]
--- OUTSIDE RECORDS SUMMARY | 2024-09-16 10:51 | XMS_ITS | Encounter Summary ---
Author Organization [facility] Address [address] [place] [address] Care Team Providers Care Hypercil Core Transformer Assembler Name Role Phone Alie Barragan MD Primary Care Provider [phone] Encounter Details Date Type Department Care Team (Late st Contact Info) Description 08/28/2024 Lab Requisition [facility] - Main Lab [address] [facility] [place] [address] Folrian Dia MD [address] [place] [address] Urinary tract infection, site not specified Social History Tobacco Use Types Packs/Day Years [...] EDT Urinary tract infection, site not specified documented in this encounter Results * (ABNORMAL) Urinalysis with reflex microscopic (08/28/2024 12:00 AM EDT) Specific [place] Urine 1.013 1.003 - 1.030 LAB URINALYSIS - AUTOMATED METHOD 08/28/2024 11:30 AM [facility] pH, Urine 7.0 5.0 - 8.0 pH LAB URINALYSIS - AUTOMATED METHOD 08/28/2024 11:30 AM [facility] Leukocytes, Urine Small(A) Negative LAB URINALYSIS - AUTOMATED METHOD 08/28/2024 11:30 AM [facility] Nitrite, Urine Negative Negative LAB URINALYSIS - AUTOMATED METHOD 08/28/2024 11:30 AM [facility] Protein, Urine Negative <=Trace mg/dL LAB URINALYSIS - AUTOMATED METHOD 08/28/2024 11:30 AM [facility] Glucose, Urine 100(A) Negative mg/dL LAB URINALYSIS - AUTOMATED METHOD 08/28/2024 11:30 AM [facility] Ketones, Urine Negative Negative mg/dL LAB URINALYSIS - AUTOMATED METHOD 08/28/2024 11:30 AM [facility] Urobilinogen, Urine 0.2 0.2 - 1.0 mg/dL LAB URINALYSIS - AUTOMATED METHOD 08/28/2024 11:30 AM [facility] Bilirubin, Urine Negative Negative LAB URINALYSIS - AUTOMATED METHOD 08/28/2024 11:30 AM [facility] Blood, Urine Negative Negative LAB URINALYSIS - AUTOMATED METHOD 08/28/2024 11:30 AM [facility] RBC, Urine 1.7 0 - 4 /HPF LAB URINALYSIS - AUTOMATED METHOD 08/28/2024 11:30 AM [facility] WBC, Urine 2.4 0 - 4 /HPF LAB URINALYSIS - AUTOMATED METHOD 08/28/2024 11:30 AM [facility] Squamous Epithelial, Urine 33 0 - 60 /LPF LAB URINALYSIS - AUTOMATED METHOD 08/28/2024 11:30 AM EDT [facility] Bacteria, Urine Negative Negative /HPF LAB URINALYSIS - AUTOMATED METHOD 08/28/2024 11:30 AM EDT [facility] Hyaline Casts, Urine 1.2 0 - 3 /LPF LAB URINALYSIS - AUTOMATED METHOD 08/28/2024 11:30 AM EDT [facility] Urine Urine specimen obtained by clean catch procedure / Unknown 08/28/2024 08/28/2024 11:07 AM EDT Florian Dia MD LAB URINE ORDERABLES Final R esult Performing Organization Address [facility]/ZIP Co de Phone Number [facility] [address] [place] [address], [place] [phone] * (ABNORMAL) Culture urine (08/28/2024 12:00 AM EDT) Culture, Urine 50,000-100,000 CFU/mL Streptococcus beta-hemolytic Group B(A) 08/29/2024 9:56 AM EDT [facility] Comment: Susceptibility testing is not routinely [...] Unknown 08/28/2024 08/28/2024 11:07 AM EDT Narrative [facility] - 08/29/2024 9:56 AM EDT Additional colony types present in insignificant amounts. us Florian Dia MD LAB MICROBIOLOGY - GENERAL O RDERABLES Final Result Performing Organization Address [facility]/ZIP Co de Phone Number [facility] [address] [place] [address], documented in this encounter Visit Diagnoses Diagnosis Urinary tract infection, site not specified documented in this encounter Care Teams Hypercil Core Transformer Assembler Relationship Specialty Start Date End Date Alie Barragan MD [address] [place] [address] PCP - General Internal Medicine 06/11/21 documented as of this encounter
--- OUTSIDE RECORDS SUMMARY | 2024-09-16 10:51 | XMS_ITS | Encounter Summary ---
Author Organization [facility] Address [address] [place] [address] Care Team Providers Care Anodic Operator Name Role Phone Alie Barragan MD Primary Care Provider [phone] Encounter Details Date Type Department Care Team (Latest Contact Info) Description 04/01/2024 Lab Requisition [facility] - Main Lab [address] [facility] [place] [address] Florian Dia MD [address] [place] [address] Type 2 diabetes mellitus with hyperglycemia (CMS/HCC [...] A1c (04/01/2024 6:05 AM EST) Pathologist [facility] Hemoglobin A1C 9.8(H) <6.5 % LAB CHEMISTRY METHOD 04/01/2024 11:41 AM EST [facility] Mean Bld Glu Estim. 235 mg/dL LAB CHEMISTRY METHOD 04/01/2024 11:41 AM EST [facility] Blood Venous blood specimen / Unknown Venipuncture / Unknown 04/01/2024 6:05 AM EST 04/01/2024 9:03 AM EST Florian Dia MD LAB BLOOD ORDERABLES Final R esult Performing Organization Address City/[facility]/ZIP Co de Phone Number [facility] [address] [place] [address], * Thyroid stimulating hormone (04/01/2024 6:05 AM EST) [facility] TSH 2.63 0.40 - 4.00 mcIU/mL LAB CHEMISTRY METHOD 04/01/2024 10:41 AM EST [facility] Blood Venous blood specimen / Unknown Venipuncture / Unknown 04/01/2024 6:05 AM EST 04/01/2024 9:03 AM EST Florian Dia MD LAB BLOOD ORDERABLES Final R esult Performing Organization Address City/[facility]/ZIP Co de Phone Number [facility] [address] [place] [address], * (ABNORMAL) Basic metabolic panel (04/01/2024 6:05 AM EST) [facility] Sodium 130(L) 133 - 145 mmol/L LAB CHEMISTRY METHOD 04/01/2024 10:30 AM EST [facility] Potassium 4.1 3.5 - 5.5 [...] MD LAB BLOOD ORDERABLES Final R esult [facility] [address] [place] [address], * (ABNORMAL) Complete blood count (04/01/2024 6:05 AM EST) [facility] WBC 7.4 4.8 - 10.8 K/mcL [...] LAB HEMETOLOGY METHOD 04/01/2024 10:15 AM EST [facility] Blood Venous blood specimen / Unknown Venipuncture / Unknown 04/01/2024 6:05 AM EST 04/01/2024 9:03 AM EST us Florian Dia MD LAB BLOOD ORDERABLES Final R esult [facility] [address] [place] [address], documented in this encounter Visit Diagnoses Diagnosis Type 2 diabetes mellitus with hyperglycemia (CMS/HCC V24, CMS/HCC V28) documented in this encounter Additional Health Concerns Infection Onset Date Last Indicated Resolved Time Respiratory Rule-Out 06/17/2024 06/16/2024 025 1:27 PM EST documented as of this encounter Care Teams Anodic Operator Relationship Specialty Start Date End Date Alie Barragan MD [address] [place] [address] PCP - General Internal Medicine 06/11/21 documented as of this encounter
--- OUTSIDE RECORDS SUMMARY | 2024-09-16 10:51 | XMS_ITS | Encounter Summary ---
Author Organization [facility] Address [address] [place] [address] Care Team Providers Care Stock Chaser Name Role Phone Alie Barragan MD Primary Care Provider [phone] Encounter Details Date Type Department Care Team (Late st Contact Info) Description 03/16/2024 Lab Requisition [facility] - Main Lab [address] [facility] [place] [address] Florian Dia MD [address] [place] [address] Major depressive disorder, single episode, mild (CMS/HCC [...] LAB CHEMISTRY METHOD 03/16/2024 10:23 AM EST [facility] ([facility]) [facility] Blood Venous blood specimen / Unknown Venipuncture / Unknown 03/16/2024 6:00 AM EST 03/16/2024 9:47 AM EST us Florian Dia MD LAB BLOOD ORDERABLES Final R esult [facility] ([facility]) [facility] [address] [place] [address], documented in this encounter Visit Diagnoses Diagnosis Major depressive disorder, single episode, mild (CMS/HCC V24) Major depressive disorder, single episode, mild documented in this encounter Additional Health Concerns Infection Onset Date Last Indicated Resolved Time Respiratory Rule-Out 06/17/2024 06/16/2024 025 1:27 PM EST documented as of this encounter Care Teams Stock Chaser Relationship Specialty Start Date End Date Alie Barragan MD [address] [place] [address] PCP - General Internal Medicine 06/11/21 documented as of this encounter
--- OUTSIDE RECORDS SUMMARY | 2024-09-16 10:51 | XMS_ITS | Encounter Summary ---
Author Organization [facility] Address [address] [place] [address] Care Team Providers Care Inshore Undersea Warfare Officer Name Role Phone Alie Barragan MD Primary Care Provider [phone] Encounter Details Date Type Department Care Team (Latest Contact Info) Description 06/01/2024 Lab Requisition [facility] - Main Lab [address] [facility] [place] [address] Florian Dia MD [address] [place] [address] Type 2 diabetes mellitus without complications (CMS/HCC [...] LAB CHEMISTRY METHOD 06/01/2024 10:38 AM EST [facility] ([facility]) [facility] Blood Venous blood specimen / Unknown Venipuncture / Unknown 06/01/2024 5:05 AM EST 06/01/2024 9:37 AM EST us Florian Dia MD LAB BLOOD ORDERABLES Final R esult [facility] ([facility]) [facility] [address] [place] [address], documented in this encounter Visit Diagnoses Diagnosis Type 2 diabetes mellitus without complications (CMS/HCC V24, CMS/HCC V28) documented in this encounter Additional Health Concerns Infection Onset Date Last Indicated Resolved Time Respiratory Rule-Out 06/17/2024 06/16/2024 025 1:27 PM EST documented as of this encounter Care Teams Inshore Undersea Warfare Officer Relationship Specialty Start Date End Date Alie Barragan MD [address] [place] [address] PCP - General Internal Medicine 06/11/21 documented as of this encounter
--- OUTSIDE RECORDS SUMMARY | 2024-09-16 10:51 | XMS_ITS | Encounter Summary ---
Author Organization [facility] Address [address] [place] [address] Care Team Providers Care Special Education Associate Name Role Phone Alie Barragan MD Primary Care Provider [phone] Encounter Details Date Type Department Care Team (Latest Contact Info) Description 08/23/2024 Lab Requisition [facility] - Main Lab [address] [facility] [place] [address] Florian Dia MD [address] [place] [address] Type 2 diabetes mellitus with hyperglycemia (CMS/HCC [...] with other behavioral disturbance ([facility] V24, [facility] V28) documented in this encounter Results * (ABNORMAL) Basic metabolic panel (08/23/2024 5:42 AM EDT) Sodium 138 133 - 145 mmol/L LAB CHEMISTRY METHOD 08/23/2024 11:48 AM [facility] Potassium 4.3 3.5 - 5.5 mmol/L LAB CHEMISTRY METHOD 08/23/2024 11:48 AM [facility] Chloride 102 96 - 110 mmol/L LAB CHEMISTRY METHOD 08/23/2024 11:48 AM [facility] CO2 26 21 - 32 mmol/L LAB CHEMISTRY METHOD 08/23/2024 11:48 AM [facility] Anion Gap 10 3 - 11 LAB CHEMISTRY METHOD 08/23/2024 11:48 AM [facility] Glucose 110(H) 70 - 100 mg/dL LAB CHEMISTRY METHOD 08/23/2024 11:48 AM [facility] BUN 12 5 - 25 mg/dL LAB CHEMISTRY METHOD 08/23/2024 11:48 AM [facility] Creatinine 0.74 0.50 - 1.10 mg/dL LAB CHEMISTRY METHOD 08/23/2024 11:48 AM [facility] eGFR 88 >=60 mL/min/1. 73m2 LAB CHEMISTRY METHOD 08/23/2024 11:48 AM [facility] Comment:Calculation based on the??Chronic Kidney Disease Epidemiology Collaboration (CKD-EPI) equation refit??without adjustment for race. BUN/Creatinine Ratio 16.2 LAB CHEMISTRY METHOD 08/23/2024 11:48 AM [facility] Calcium 9.6 8.5 - 10.5 mg/dL LAB CHEMISTRY METHOD 08/23/2024 11:48 AM [facility] Blood Venous blood specimen / Unknown Venipuncture / Unknown 08/23/2024 5:42 AM EDT 08/23/2024 9:53 AM EDT Florian Dia MD LAB BLOOD ORDERABLES Final R esult [facility] [address] [place] [address], * (ABNORMAL) Complete blood count (08/23/2024 5:42 AM EDT) WBC 6.3 4.8 - 10.8 K/mcL LAB HEMETOLOGY METHOD 08/23/2024 10:37 AM EDT [facility] RBC 3.80 3.80 - 4.80 M/mcL LAB HEMETOLOGY METHOD 08/23/2024 10:37 AM EDT [facility] Hemoglobin 12.6 11.5 - 16.0 g/dL LAB HEMETOLOGY METHOD 08/23/2024 10:37 AM EDT [facility] Hematocrit 37.9 35.0 - 47.0 % LAB HEMETOLOGY METHOD 08/23/2024 10:37 AM [facility] MCV 99.2(H) 79.0 - 98.0 FL LAB HEMETOLOGY METHOD 08/23/2024 10:37 AM EDT [facility] MCH 33.0(H) 27.0 - 32.0 pcg LAB HEMETOLOGY METHOD 08/23/2024 10:37 AM T [facility] MCHC 33.2 32.0 - 37.0 g/dL LAB HEMETOLOGY METHOD 08/23/2024 10:37 AM [facility] RDW 14.2 11.0 - 15.0 % LAB HEMETOLOGY METHOD 08/23/2024 10:37 AM EDT [facility] Platelets 170 130 - 400 K/mcL LAB HEMETOLOGY METHOD 08/23/2024 10:37 AM EDT [facility] MPV 10.4 7.0 - 11.0 FL LAB HEMETOLOGY METHOD 08/23/2024 10:37 AM EDT [facility] NRBC 0.0 <1.0 % LAB HEMETOLOG METHOD 08/23/2024 10:37 AM EDT [facility] NRBC Absolute 0.00 <0.10 K/mcL LAB HEMETOLOGY METHOD 08/23/2024 10:37 AM EDT [facility] Blood Venous blood specimen / Unknown Venipuncture / Unknown 08/23/2024 5:42 AM EDT 08/23/2024 9:53 AM EDT us Florian Dia MD LAB BLOOD ORDERABLES Final R esult [facility] [address] [place] [address], documented in this encounter Visit Diagnoses Diagnosis Type 2 diabetes mellitus with hyperglycemia (CMS/HCC V24, CMS/HCC V28) Unspecified dementia, unspecified severity, with other behavioral disturbance (CMS/HCC V24, CMS/HCC V28) documented in this encounter Care Teams Special Education Associate Relationship Specialty Start Date End Date Alie Barragan MD [address] [place] [address] PCP - General Internal Medicine 06/11/21 documented as of this encounter
== END 2024-09-16 11:20 | disposition home or self-care (01) ==
LOC: HO.HWS 10:22
PROVIDERS: Visit Provider Obstetrics & Gynecology
DX: R87.610 Atypical squamous cells of undetermined significance on cytologic smear of cervix (ASC-US) (principal); R87.810 Cervical high risk human papillomavirus (HPV) DNA test positive; N95.0 Postmenopausal bleeding; N81.10 Cystocele, unspecified
CPT/HCPCS: 57454; 58110

== ENCOUNTER 2024-09-28 07:56 | Outpatient (AMB) | payer MEDICAID, SELFPAY ==
--- OUTSIDE RECORDS SUMMARY | 2024-09-28 07:57 | XMS_ITS | Encounter Summary ---
Author Organization [facility] Address [address] [place] [address] Care Team Providers Care Rn Night Name Role Phone Alie Barragan MD Primary Care Provider [phone] Encounter Details Date Type Department Care Team (Late st Contact Info) Description 08/28/[address] [facility] - Main Lab [address] [facility] [place] [address] Florian Dia MD [address] [place] [address] Urinary tract infection, site not specified Social [...] reflex microscopic (08/28/2024 12:00 AM EDT) Specific [place] Urine 1.013 1.003 - 1.030 LAB URINALYSIS [...] - AUTOMATED METHOD 08/28/2024 11:30 AM EDT [facility] Bacteria, Urine Negative Negative /HPF LAB URINALYSIS - AUTOMATED METHOD 08/28/2024 11:30 AM EDT [facility] Hyaline Casts, Urine 1.2 0 - 3 /LPF LAB URINALYSIS - AUTOMATED METHOD 08/28/2024 11:30 AM EDT [facility] Urine Urine specimen obtained by clean catch procedure / Unknown 08/28/2024 08/28/2024 11:07 AM EDT Florian Dia MD LAB URINE ORDERABLES Final R esult Performing Organization Address [facility]/ZIP Co de Phone Number [facility] [address] [place] [address], [place] [phone] * (ABNORMAL) Culture urine (08/28/2024 12:00 AM EDT) Culture, Urine 50,000-100,000 CFU/mL Streptococcus beta-hemolytic Group B(A) 08/29/2024 9:56 AM EDT [facility] Comment: Susceptibility testing is not [...] Unknown 08/28/2024 08/28/2024 11:07 AM EDT Narrative [facility] - 08/29/2024 9:56 AM EDT Additional colony types present in insignificant amounts. us Florian Dia MD LAB MICROBIOLOGY - GENERAL O RDERABLES Final Result Performing Organization Address [facility]/ZIP Co de Phone Number [facility] [address] [place] [address], documented in this encounter Visit Diagnoses Diagnosis Urinary tract infection, site not specified documented in this encounter Care Teams Rn Night Relationship Specialty Start Date End Date Alie Barragan MD [address] [place] [address] PCP - General Internal Medicine 06/11/21 documented as of this encounter
--- NOTE | 2024-09-28 07:58 | MHC.OFFVIS ---
Vital Signs 09/28/24 07:59 Height 5 ft Weight 127 lb BMI 24.8 BP 118/70 Intake Visit Reasons: colpo/emb results/pessary fitting Marine Engineering Professor Required: Yes Marine Engineering Professor Language: Still Pump Operator Services: Marine Engineering Professor Present (in person) Marine Engineering Professor Name: Luna BACA Information Interpreted: non-clinical & clinical Systems Design Engineer: Systems Design Engineer Present (Luna BACA ) Accompanied by: Daughter Allergies aspirin [ASPIRIN] Allergy (Unknown, Verified 09/28/24 08:09) UNKNOWN HPI Comments Details: Presenting post EMB/ colpo for follow-up regarding postmenopausal bleeding in addition to ascus/HPV positive and for pessary trial. The patient is doing well with no complaints. The pathology showed the following: A. Endometrium, biopsy: Strips of atrophic endometrium; negative for atypia, hyperplasia or malignancy. B. Endocervix, curettage: Fragments of inflamed endocervical glands; negative for squamous intraepithelial lesion. C. Cervix, 3 o'clock, biopsy: Chronic cervicitis; negative for squamous intraepithelial lesion. D. Cervix, 7 o'clock, biopsy: Squamous mucosa within normal limits; no endocervical component seen; negative for squamous intraepithelial lesion [facility] Medical History Hypertension Hypothyroidism Dementia Major neurocognitive disorder Hyperlipidemia Diabetes Surgical History Hx of appendectomy Family History Maternal Grandmother HTN (hypertension) Diabetes Mother HTN (hypertension) Diabetes Stomach cancer Other Major neurocognitive disorder Social History Household Members: None Household Members Other:: patient resides in a residential and she has a room-mate Housing: Skilled Nursing Alcohol intake: former Patient Tobacco Use Status: Never used Tobacco Advance Directives Date on File: 11/12/22 service: No Current occupational status: retired Sexual orientation: Straight/Heterosexual Review of Systems Const All systems reviewed & are unremarkable except as noted in HPI and below Reports as per HPI and Reports no additional complaints GI Reports no additional complaints Reports no additional complaints Physical Exam Vital Signs: BMI result Body Mass Index 24.8 Assessment & Plan Assessment & Plan (1) Postmenopausal bleeding: Comment: Recurrent Code(s): N95.0 - Postmenopausal bleeding Category: Medical Plan: Discussed with the patient the results of the endometrial biopsy. Discussed with the patient the sensitivity, specificity, positive and negative predictive value, of endometrial biopsy in detecting endometrial pathology including but not limited to endometrial hyperplasia, cancer and other pathology; instructed the patient to call in case vaginal bleeding recurs, the next step will be to proceed with a diagnostic hysteroscopy/D&C for further endometrial sampling evaluation to rule out endometrial pathology. All questions answered and the patient verbalized understanding and agreed with the plan. (2) ASCUS with positive high risk HPV cervical: Comment: HPV 18 positive/HPV 16- Code(s): R87.610 - Atypical squamous cells of undetermined significance on cytologic smear of cervix (ASC-US); R87.810 - Cervical high risk human papillomavirus (HPV) DNA test positive Category: Medical Plan: Discussed with the patient the pathology results of the colposcopy biopsies & endocervical curettage . Discussed with the patient the sensitivity specificity, positive and negative predictive value in detecting cervical cancer in addition discussed the regression, persistence and progression rates. Recommended co-testing in 12 months, if cytology and or HPV are abnormal will proceed was colposcopy biopsy and endocervical curettage. Instructions given to the patient to schedule a co test appointment in 1 year. All questions answered the patient verbalized understanding. (3) Female cystocele: Comment: Central and bilateral paravaginal defects Code(s): N81.10 - Cystocele, unspecified Category: Medical Plan: Ring pessary #4 inserted in the vagina. Afterwards the pt did not feel it in, and did not have any pain or pressure. After Valsalva x 3 ( lying down, sitting and standing up ) pessary stayed in and pt was able to void freely with the pessary in the vagina. At the end the patient was instructed to come back in 24 hours for a f/u visits. Meanwhile the patient was instructed to call if vaginal pain, pressure or discharge occurs. Vaginal Trimosan Gel is to be used x2-3 x/week. The patient verbalized understanding and all questions were answered. Coding Level of Care Code Est Pt Level 3 (92716) Diagnoses Postmenopausal bleeding N95.0 ASCUS with positive high risk HPV cervical R87.610; R87.810 Female cystocele N81.10
[2024-09-28 07:59] VITALS: BP 118/70; BMI 24.8
== END 2024-09-28 08:30 | disposition home or self-care (01) ==
LOC: HO.HWS 07:56
PROVIDERS: Visit Provider Obstetrics & Gynecology
DX: N95.0 Postmenopausal bleeding (principal); R87.610 Atypical squamous cells of undetermined significance on cytologic smear of cervix (ASC-US); R87.810 Cervical high risk human papillomavirus (HPV) DNA test positive; N81.10 Cystocele, unspecified
CPT/HCPCS: 99213

== ENCOUNTER → 2024-09-28 07:56 | Outpatient (BNVA) | payer MEDICAID, SELFPAY | PROVIDERS: Visit Provider Obstetrics & Gynecology | DX: N95.0 Postmenopausal bleeding (principal); N81.10 Cystocele, unspecified; R87.610 Atypical squamous cells of undetermined significance on cytologic smear of cervix (ASC-US); R87.810 Cervical high risk human papillomavirus (HPV) DNA test positive | CPT/HCPCS: 99212 ==

== ENCOUNTER 2024-09-29 08:22 | Outpatient (AMB) | payer MEDICAID, SELFPAY ==
--- NOTE | 2024-09-29 08:46 | A.OFFVIS_ITS ---
Intake Visit Reasons: pessary check per Hospitalist Medical Director Required: Yes Hospitalist Medical Director Language: Crusher Supervisor Services: Hospitalist Medical Director Present (in person) Hospitalist Medical Director Name: KEVEN Calvo Information Interpreted: non-clinical & clinical Accounting Specialist: Accounting Specialist Present (KEVEN Calvo, Luna ) Accompanied by: Self / Same As Patient Allergies aspirin [ASPIRIN] Allergy (Unknown, Verified 09/29/24 08:50) UNKNOWN HPI Comments Details: Presenting after pessary ring 3 insertion the patient went home and it slipped up during voiding [facility] Medical History Hypertension Hypothyroidism Dementia Major neurocognitive disorder Hyperlipidemia Diabetes Surgical History Hx of appendectomy Family History Maternal Grandmother HTN (hypertension) Diabetes Mother HTN (hypertension) Diabetes Stomach cancer Other Major neurocognitive disorder Social History Household Members: None Household Members Other:: patient resides in a alf and she has a room- mate Housing: Assisted Alcohol intake: former Patient Tobacco Use Status: Never used Tobacco Advance Directives Date on File: 11/12/22 service: No Current occupational status: retired Sexual orientation: Straight/Heterosexual Review of Systems Const All systems reviewed & are unremarkable except as noted in HPI and below Physical Exam General: Yes no CVA tenderness External Female Exam: normal external appearance and normal appearance of the urethra Speculum Exam - Vagina: normal appearance of the vagina, normal palpation, no lesions and no masses Speculum Exam - Cervix: normal appearance of the cervix, normal palpation, no lesions, no masses and nontender Bimanual exam- vagina & uterus: normal bimanual exam, normal palpation, uterine size normal, normal palpation, uterine shape normal, No Cervical tenderness present and non-tender Bimanual Exam- Adnexa, other: normal adnexae Back/Spine/Pelvis Back: no CVA tenderness Assessment & Plan Assessment & Plan (1) Female cystocele: Comment: Central and bilateral paravaginal defects Code(s): N81.10 - Cystocele, unspecified Category: Medical Plan: Ghrung pessary #0 inserted in the vagina. Afterwards the pt did not feel it in, and did not have any pain or pressure. After Valsalva x 3 ( lying down, sitting and standing up ) pessary stayed in and pt was able to void freely with the pessary in the vagina. At the end the patient was instructed to come back in 24 hours for a f/u visits. Meanwhile the patient was instructed to call if vaginal pain, pressure or discharge occurs. Vaginal Trimosan Gel is to be used x2-3 x/week. The patient verbalized understanding and all questions were answered. Coding Level of Care Code Est Pt Level 3 (60396) Diagnoses Female cystocele N81.10
== END 2024-09-29 09:12 | disposition home or self-care (01) ==
LOC: HO.HWS 08:22
PROVIDERS: Visit Provider Obstetrics & Gynecology
DX: N81.10 Cystocele, unspecified (principal)
CPT/HCPCS: 99213

== ENCOUNTER → 2024-09-29 08:22 | Outpatient (BNVA) | payer MEDICAID, SELFPAY | PROVIDERS: Visit Provider Obstetrics & Gynecology | DX: N81.10 Cystocele, unspecified (principal) | CPT/HCPCS: 99212 ==

== ENCOUNTER 2024-09-30 09:45 | Outpatient (AMB) | payer MEDICAID, SELFPAY ==
--- NOTE | 2024-09-30 09:49 | A.OFFVIS_ITS ---
Intake Visit Reasons: pessary check Hr Specialist Required: Yes Hr Specialist Language: Paper Mill Manager Services: Hr Specialist Present (in person) Hr Specialist Name: KEVEN Calvo Information Interpreted: non-clinical & clinical Hides Soaker: Hides Soaker Present (KEVEN Calvo, Latanya) Accompanied by: Employee Allergies aspirin [ASPIRIN] Allergy (Unknown, Verified 09/30/24 09:52) UNKNOWN HPI Comments Details: Presenting after pessary insertion yesterday, the patient went to inpatient facility and stated that the Gehrung pessary#0 slipped out, no vaginal bleeding or discharge Ring Pessary#3 was attempted and slipped out [facility] Medical History Hypertension Hypothyroidism Dementia Major neurocognitive disorder Hyperlipidemia Diabetes Surgical History Hx of appendectomy Family History Maternal Grandmother HTN (hypertension) Diabetes Mother HTN (hypertension) Diabetes Stomach cancer Other Major neurocognitive disorder Social History Household Members: None Household Members Other:: patient resides in a senior living and she has a room- mate Housing: Care Home Alcohol intake: former Patient Tobacco Use Status: Never used Tobacco Advance Directives Date on File: 11/12/22 service: No Current occupational status: retired Sexual orientation: Straight/Heterosexual Review of Systems Const All systems reviewed & are unremarkable except as noted in HPI and below Physical Exam General: Yes no CVA tenderness External Female Exam: normal external appearance and normal appearance of the urethra Speculum Exam - Vagina: normal appearance of the vagina, normal palpation, no lesions, no masses and other (No pessary per vagina) Speculum Exam - Cervix: normal appearance of the cervix, normal palpation, no lesions, no masses and nontender Bimanual exam- vagina & uterus: normal bimanual exam, normal palpation, uterine size normal, normal palpation, uterine shape normal, No Cervical tenderness present and non-tender Bimanual Exam- Adnexa, other: normal adnexae Back/Spine/Pelvis Back: no CVA tenderness Assessment & Plan Assessment & Plan (1) Female cystocele: Comment: Central and bilateral paravaginal defects Code(s): N81.10 - Cystocele, unspecified Category: Medical Plan: Discussed with the patient the finding on pelvic exam, no pessary found per vagina. The patient is interested in urogynecology referral. Referral to [facility]. Instructed the patient to call our office back in case a referral appointment is not scheduled, missed or canceled so that we will assist on rescheduling another appointment, the patient verbalized understanding agreed with the plan. Orders: Referrals Urogynecology Referral N81.10 - Cystocele, unspecified Coding Level of Care Code Est Pt Level 3 (74346) Diagnoses Female cystocele N81.10
--- OUTSIDE RECORDS SUMMARY | 2024-09-30 10:59 | XMS_ITS | Encounter Summary ---
Author Organization [facility] Address [address] [place] [address] Care Team Providers Care Knitter Hand Name Role Phone Zhanna Hopper MD Primary Care Provider Misha Bobo MD Primary Care Provider Unavail able Aravind Dozier MD Primary Care Provider Unavail able [facility], [facility] Primary Care Provider UnavailCandice Ryan DO Primary Care Pro vider Unavailable Roque Chavez MD Primary Care Provider [phone] Alie Barragan MD Primary Care Provider [phone] Encounter Details Date Type Department Care Team Description 01/25/2018 Refill Adult Medicine [address] [id number] Charles Humphreys MD [address] [place] [address] [phone] Social History Tobacco Use Types Packs/Day Years Used Date Smoking Tobacco: Never Smokeless Tobacco: Never Alcohol Use Standard Drinks/Week Comments No 0 (1 standard drink = 0.6 oz pur e alcohol) Financial Resource Strain Answer Date R ecorded How hard is it for you to pa y for the very basics like food, housing, medical care, and heating? Not very hard 02/02/2020 Food Insecurity Answer Date Recorded Within the past 12 months, y ou worried that your food would run out before you got money to buy more. Never true 02/02/2020 Within the past 12 months, t he food you bought just didn't last and you didn't have money to get more. Never true 02/02/2020 Transportation Needs Answer Date Record ed In the past 12 months, has l ack of transportation kept you from medical appointments or from getting medications? No 10/2019 In the past 12 months, has l ack of transportation kept you from meetings, work, or getting things needed for daily living? No 02/02/2020 Sex Assigned at Date Recorded Not on file Job Start Date Occupation Industry Not on file Not on file Not on file documented as of this encounter Plan of Treatment Not on file documented as of this encounter Visit Diagnoses Not on filedocumented in this encounter Care Teams Knitter Hand Relationship Specialty Start Date End Date Zhanna Hopper MD PCP - General Internal Medicine 07/03/17 03/11/19 Misha Alexis MD PCP - General Internal Medicine 03/12/19 12/20/19 Aravind Dozier MD PCP - General Internal Medicine 12/21/19 12/23/19 [facility], [facility] PCP - General Internal Medicine 12/24/19 01/30/20 Candice Casas DO PCP - General Internal Medicine 01/31/20 11/23/20 Roque Chavez MD [address] [place] [id number] PCP - General Internal Medicine 11/24/20 06/10/21 Alie Barragan MD [address] [place] [address] [phone] PCP - General Internal Medicine 06/11/21 documented as of this encounter
== END 2024-09-30 10:10 | disposition home or self-care (01) ==
LOC: HO.HWS 09:45
PROVIDERS: Visit Provider Obstetrics & Gynecology
DX: N81.10 Cystocele, unspecified (principal)
CPT/HCPCS: 99213

== ENCOUNTER → 2024-09-30 09:45 | Outpatient (BNVA) | payer MEDICAID, SELFPAY | PROVIDERS: Visit Provider Obstetrics & Gynecology | DX: N81.10 Cystocele, unspecified (principal) | CPT/HCPCS: 99212 ==